=== PATIENT | male | born 1955 | race Caucasian/White ===

== ENCOUNTER 2024-04-17 07:43 | Outpatient (OUT) | payer OTHER, SELFPAY ==
--- NOTE | 2024-04-17 07:54 | ECG_ITS ---
[facility] Test Date: 2024-04-17 Pat Name: ALTAGRACIA CONWAY Department: Room: - Gender: Male [employer]: : 1955 Requested By: CLARENCE DAVID Order Number: [id number] Reading MD: DARIAN DAHL Measurements Intervals [place] Rate: 65 P: 35 CO: 184 QRS: 54 QRSD: 93 T: 60 QT: 365 QTc: 381 Interpretive Statements SINUS RHYTHM No previous ECG available for comparison Electronically Signed On 04-17-2024 17:00:30 EST by DARIAN DAHL
--- NOTE | 2024-04-17 09:10 | XR_ITS ---
The [address] [address] Patient Name: ALTAGRACIA CONWAY MRN: [id number] date: 1955 Sex: M Assigned Patient Location: [facility] Current Patient Location: [facility] Accession/Order Number: [id number] Exam Date: 04/17/2024 09:17 Report Date: 04/17/2024 09:41 At the request of: CLARENCE DAVID Procedure: XR chest 2V PROCEDURE: XR chest 2V DATE: 04/17/2024 9:17 AM EST COMPARISONS: None. CLINICAL INDICATION: 68 years Male Preop exam FINDINGS: The cardiomediastinal silhouette and pulmonary vasculature are within normal limits. There is slightly coarse increased markings throughout all lung [place] consistent with chronic lung changes. There is no evidence of consolidating infiltrates, masses or nodules on these plain radiographs. There is no evidence of pleural effusion or pneumothorax. Right-sided port catheter is in place. Thoracic spinal catheter is in place. XR/XR chest 2V IMPRESSION: Findings suggest chronic lung changes. No other abnormalities identified. Electronically authenticated by: SUGAR CAMACHO Date: 04/17/2024 09:41
[2024-04-17 09:35] LABS: Basophils Absolute Auto 0.1 10^3/uL (0.0-0.1); Basophils Percent Auto 1.4 % (0.2-2.0); Eosinophils Absolute Auto 0.6 10^3/uL (0.0-0.7); Eosinophils Percent Auto 7.3 % (0.9-7.0); Hematocrit 35.6 % (42.0-54.0); Hemoglobin 11.8 g/dL (14.0-18.0); Immature Granulocytes Abs Auto 0.02 10^3/uL (0.00-0.03); Immature Granulocytes Pct Auto 0.3 % (0.0-0.5); Lymphocytes Absolute Auto 1.9 10^3/uL (1.2-3.8); Lymphocytes Percent Auto 24.1 % (20.5-60.0); Mean Corpuscular HGB Conc 33.1 g/dL (29.9-35.2); Mean Corpuscular Hemoglobin 30.4 pg (25.9-34.0); Mean Corpuscular Volume 91.8 fL (80.0-94.0); Mean Platelet Volume 11.4 fL (9.5-13.5); Monocytes Absolute Auto 0.5 10^3/uL (0.3-0.8); Monocytes Percent Auto 6.5 % (1.7-12.0); Neutrophils Absolute Auto 4.8 10^3/uL (1.4-6.5); Neutrophils Percent Auto 60.4 % (43.0-75.0); Platelet Count 198 10^3/uL (150-450); Red Blood Count 3.88 10^6/uL (4.70-6.10); Red Cell Distribution Width 14.9 % (11.0-15.0); White Blood Count 7.9 10^3/uL (4.0-11.0)
[2024-04-17 09:43] LABS: Partial Thromboplastin Time 28.7 sec (22.3-36.2); Prothrombin Time 10.6 sec (9.0-11.6)
--- NOTE | 2024-04-17 10:13 | P.GSHP_ITS ---
History of Present Illness History of Present Illness Chief complaint: BPH with Obstruction Narrative: Mr. Kal Allison is a pleasant 68-year-old male who presents to presurgical testing with diagnosis of BPH with obstruction/lower urinary tract symptoms, asymptomatic microscopic hematuria, kidney stones, history of pancreatic cancer. He is scheduled with Dr. Syed on May 02, 2024 for cystoscopy/TURP. He reports to me that he has complaints of a full bladder and cannot completely empty. Review of Systems ROS Narrative REVIEW OF SYSTEMS: Negative except as stated in HPI, ten or more systems reviewed. Constitutional: No fever, chills, weakness ENT: No sore throat or epistaxis Cardiovascular: No edema, chest pain, palpitations, or activity intolerance Respiratory: No shortness of breath, cough, or wheezing Musculoskeletal: No joint pain or swelling, reports neuropathy to bilateral lower extremities Gastrointestinal: No abdominal pain, constipation, reports intermittent nausea for which he takes Zofran ODT he also reports a recent bout of colitis with symptoms that have resolved and no further diarrhea at this time Genitourinary: No dysuria or hematuria, complaints of inability to fully empty bladder Neurological: Numbness and tingling to bilateral lower extremities. Denies weakness, or headache Psychiatric: No mood changes reports history of depression and anxiety well- controlled with current medications [facility] Medical History (Updated 04/17/24 @ 10:22 by Cece Bowen) Neuropathy ?G62.9 - Polyneuropathy, unspecified (ICD-10) Amputated toe of right foot ?S98.131A - Complete traumatic amputation of one right lesser toe, initial en counter (ICD-10) Hepatitis C ?B19.20 - Unspecified viral hepatitis C without hepatic coma (ICD-10) Pancreatic cancer ?C25.9 - Malignant neoplasm of pancreas, unspecified (ICD-10) Osteoarthritis ?M19.90 - Unspecified osteoarthritis, unspecified site (ICD-10) Anxiety ?F41.9 - Anxiety disorder, unspecified (ICD-10) Depression ?F32.A - Depression, unspecified (ICD-10) Chronic obstructive pulmonary disease ?J44.9 - Chronic obstructive pulmonary disease, unspecified (ICD-10) Seasonal allergies ?J30.2 - Other seasonal allergic rhinitis (ICD-10) Cataract ?H26.9 - Unspecified cataract (ICD-10) Diabetes ?E11.9 - Type 2 diabetes mellitus without complications (ICD-10) Hypertension ?I10 - Essential (primary) hypertension (ICD-10) High cholesterol ?E78.00 - Pure hypercholesterolemia, unspecified (ICD-10) Liver disease ?K76.9 - Liver disease, unspecified (ICD-10) Rectal bleeding ?K62.5 - Hemorrhage of anus and rectum (ICD-10) Epigastric pain ?R10.13 - Epigastric pain (ICD-10) GERD (gastroesophageal reflux disease) ?K21.9 - Gastro-esophageal reflux disease without esophagitis (ICD-10) Chronic kidney disease ?N18.9 - Chronic kidney disease, unspecified (ICD-10) Colitis ?K52.9 - Noninfective gastroenteritis and colitis, unspecified (ICD-10) Surgical History (Updated 04/17/24 @ 09:24 by Cece Bowen) 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 (ICD-10) ?Z90.49 - Acquired absence of other specified parts of digestive tract (ICD- 10) History of cholecystectomy ?Z90.49 - Acquired absence of other specified parts of digestive tract (ICD- 10) S/P placement of nerve stimulator ?Z96.82 - Presence of neurostimulator (ICD-10) Family History (Updated 04/17/24 @ 08:27 by Cece Bowen) Other Family history of hypertension Family history of lung cancer Family history of pancreatic cancer Social History (Updated 04/17/24 @ 08:23 by Cece Bowen) Within the past year, how often did you have a drink containing alcohol: never Score interpretation: A score less than 4 is consistent with normal alcohol consumption. Smoking status: Former smoker Non-prescribed substance use: cannabis (any form) Non-prescribed substance use details: smokes daily Previous occupational history: retired Highest level of school completed/degree received: 10th grade Meds Home Medications and Allergies Home Medications ?Medication ?Instructions ?Recorded ?Confirmed ?Type albuterol sulfate 90 mcg/actuation 1 inh inhalation Q4H PRN shortness 04/17/24 04/17/24 History aerosol inhaler (Ventolin HFA) of breath or wheezing amlodipine 10 mg tablet 10 mg PO DAILY 04/17/24 04/17/24 History aspirin 81 mg chewable tablet 81 mg PO DAILY 04/17/24 04/17/24 History (Trinity Chewable Low Dose Aspirin) atorvastatin 10 mg tablet 10 mg PO DAILY 04/17/24 04/17/24 History buspirone 30 mg tablet 30 mg PO .PM 04/17/24 04/17/24 History cholecalciferol (vitamin D3) 50 50 mcg PO DAILY 04/17/24 04/17/24 History mcg (2,000 unit) capsule (Vitamin D3) fluticasone furoate 100 1 inh inhalation Q24H 04/17/24 04/17/24 History mcg-vilanterol 25 mcg/dose inhalation powder (Breo Ellipta) insulin aspart U-100 100 unit/mL 7 unit subcut BID 04/17/24 04/17/24 History (3 mL) subcutaneous pen (Novolog FlexPen U-100 Insulin aspart) insulin degludec 100 unit/mL (3 27 unit subcut DAILY 04/17/24 04/17/24 History mL) subcutaneous pen (Tresiba FlexTouch U-100 insulin) levomilnacipran 80 mg capsule,24 80 mg PO DAILY 04/17/24 04/17/24 History hr,extended release (Fetzima) [id number] 1 cap PO TID 04/17/24 04/17/24 History 36,000-114,000-180,000 unit capsule,delay rel (Creon) lisinopril 10 mg tablet 10 mg PO DAILY 04/17/24 04/17/24 History mirtazapine 45 mg tablet 45 mg PO .HS 04/17/24 04/17/24 History ondansetron 8 mg disintegrating 8 mg PO DAILY 04/17/24 04/17/24 History tablet oxycodone 10 mg tablet 10 mg PO .COMPLEX 04/17/24 04/17/24 History pantoprazole 40 mg tablet,delayed 40 mg PO DAILY PRN reflux 04/17/24 04/17/24 History release pregabalin 150 mg capsule (Lyrica) 150 mg PO BID 04/17/24 04/17/24 History tamsulosin 0.4 mg capsule 0.4 mg PO DAILY 04/17/24 04/17/24 History Allergies Allergy/AdvReac Type Severity Reaction Status Date / Time No Known Drug Allergies Allergy Verified 04/17/24 08:21 Exam Narrative Exam Narrative: Nurses note and vital signs reviewed and patient is not hypoxic. General: The patient appears well and in no apparent distress. Patient is resting comfortably on cart. Skin: Warm, dry, no pallor noted. There is no rash noted. He does have a right chest wall Port-A-Cath and lumbar spinal cord nerve stimulator Head: Normocephalic, atraumatic Eye: Normal conjunctiva, no drainage, EOMI. PERRL Ears, Nose, Mouth, and Throat: oral mucosa is moist. Nares patent. Mouth without vesicles. Ear canals patent. Tympanic membrane without Erythema Cardiovascular: Regular Rate and Rhythm Respiratory: Patient is in no distress, no accessory muscle use, lungs are clear to auscultation, no wheezing, rales or rhonchi Back: non-tender, no CVA tenderness bilaterally to percussion. GI: Normal bowel sounds, no tenderness to palpation, no masses appreciated. No rebound, guarding, or rigidity noted. Musculoskeletal: The patient has no evidence of calf tenderness, no pitting edema, symmetrical pulses noted bilaterally Neurological: A&O x4, normal speech Psychiatric: Cooperative Assessment and Plan Assessment and Plan (1) Benign prostatic hyperplasia with urinary obstruction and other lower urinary tract symptoms: (2) Asymptomatic microscopic hematuria: (3) Kidney stones: (4) History of pancreatic cancer: Plan Mr. Allison is scheduled for cystoscopy/TURP with Dr. Syed on 04/30/2024
[2024-04-17 10:57] LABS: Anion Gap 12.5; BUN Creatinine Ratio 26.2; Calcium 9.5 mg/dL (8.5-10.1); Carbon Dioxide 26.8 mmol/L (21.0-32.0); Chloride 104 mmol/L (98-107); Estimated GFR (African America >60 (>=60 mL/min/1.73m^2); Estimated GFR (Non-African Ame 55 (>=60 mL/min/1.73m^2); Glucose 143 mg/dL (74-106); Potassium 5.3 mmol/L (3.5-5.1); Sodium 138 mmol/L (136-145)
== END 2024-04-17 07:44 | disposition home or self-care (01) ==
LOC: PST 07:49
PROVIDERS: Family Provider Urology; PCP Family Medicine; Visit Provider Urology
DX: Z01.810 Encounter for preprocedural cardiovascular examination (principal); Z01.812 Encounter for preprocedural laboratory examination; Z01.818 Encounter for other preprocedural examination; N40.1 Benign prostatic hyperplasia with lower urinary tract symptoms; E78.5 Hyperlipidemia, unspecified
CPT/HCPCS: 71046; 80048; 85025; 85610; 85730; 93005; G0463

== ENCOUNTER 2024-05-02 21:15 | Emergency (ER) | payer OTHER, SELFPAY ==
[2024-05-02 21:18] VITALS: BP 179/79; PULSE 81; TEMP 36.7; O2SAT 98; BMI 25.7
--- OUTSIDE RECORDS SUMMARY | 2024-05-02 21:27 | XMS_ITS | CCD ---
Author Organization [facility] Care Team Providers Care Billet Straightener Name Role Phone REAL, EDTRIPP Kehinde Unavailable Unavailable KATHIA CASTRO Unavailable Unavailable CONSULT, IP SURGERY VASCULAR Unavailable Janae vailable PETZNICK, TIKI Unavailable Unavailable CONSULT, IP INFECTIOUS DISEASE Unavailable U navailable CONSULT, IP PODIATRY Unavailable Unavailable REQUEST, IP PHYSICAL THERAPY SERVICE Unavailable Unavailable REQUEST, IP OCCUPATIONAL THERAPY SERVICE Unavail able Unavailable CONSULT, IP DERMATOLOGY Unavailable Unavaila ble PROVIDER, UNKNOWN Unavailable Unavailable PROVIDER, UNKNOWN Unavailable Unavailable PETZNICK, TIKI Unavailable Unavailable PROVIDER, UNKNOWN Unavailable Unavailable PROVIDER, UNKNOWN Unavailable Unavailable PATIENT, SELF Unavailable Unavailable PETZNICK, TIKI Unavailable Unavailable SYED, CLARENCE Unavailable Unavailable SYED, CLARENCE Unavailable Unavailable SYED, CLARENCE Unavailable Unavailable PETZNICK, TIKI Unavailable Unavailable SYED, CLARENCE Unavailable Unavailable SYED, CLARENCE Unavailable Unavailable SYED, CLARENCE Unavailable Unavailable JOSE MARTIN RIZO Unavailable Unavailable PETZNICK, TIKI Unavailable Unavailable SYED, CLARENCE Unavailable Unavailable SYED, CLARENCE Unavailable Unavailable SYED, CLARENCE Unavailable Unavailable BEENA OLIVEROS Unavailable Unavailable JULISSA MEJIA Unavailable Unavailable Petznick, Tiki M Unavailable Unavailable Destiney Salas Unavailable Unavailable Margaret Crawford Unavailable Unavailable Andrew Vazquez Unavailable Diane Quintero Unavailable Jose Martin Ramirez Unavailable Lennie Newell Unavailable Kameron Mullen Unavailable DO Tiki Dockery Primary Care Provider MD Andrew Vazquez Attending Provider DO Tiki Dockery Attending Provider MD Margaret Delgado Attending Provider [phone] MD Nasim Guillaume Referring Provider Petznick, DO Tiki Primary Care Provider MD Andrew Vazquez Attending Provider MD Margaret Delgado Attending Provider MD Nasim Guillaume Referring Provider MD Margaret Delgado Attending Provider [phone] MD Nasim Guillaume Referring Provider Petznick, DO Tiki Primary Care Provider SAKRIS, TIKI Primary Care Physician Unavailable Primary Care Provider Unavailabl e MD Margaret Delgado Attending Provider MD Nasim Guillaume Referring Provider Petznick, DO Tiki Primary Care Provider Lonnie, Tammy Unavailable Dr. Margaret Delgado Attending Unavailable Dr. Tiki Dockery Primary Care U navailable Tiki Dockery Primary Care Provider Hampole, Memo Vagesh Unavailable Ankita, Hernandez H Unavailable Chance DELUNAM, Hernandez H Unavailable Hampole, Memo Vagesh Unavailable Chance KIM, Hernandez H Unavailable JORDAN, JORDAN E Attending Unavailable JORDAN, JORDAN E Admitting Unavailable TIKI DOCKERY Primary Care Unava ilable PETTIKI ORTIZ GAGAN Primary Care Unava ilable JORDAN, JORDAN E Attending Unavailable JORDAN, JORDAN E Admitting Unavailable MD Margaret Delgado Attending Provider MD Nasim Guillaume Referring Provider Petznick, DO Tiki Primary Care Provider MD Margaret Delgado Attending Provider MD Nasim Guillaume Referring Provider Petznick, DO Tiki Primary Care Provider Petznick, DO Tiki Attending Provider [phone] JORDAN, JORDAN PHILLIP Referring Unavailable PETZNICK, TIKI GAGAN Primary Care Unava ilable PETZNICK, TIKI GAGAN Primary Care Unava ilable TEETEE YANG Referring Unavailable PETZNICK[facility] Primary Care Unava ilable MALINE, ELBA L Referring Unavailable PETZNICK, TIKI GAGAN Primary Care Unava ilable MALINE, ELBA L Referring Unavailable Petznick, DO Tiki Primary Care Provider MD Bro Alas Attending Provider MD Margaret Delgado Attending Provider MD Nasim Guillaume Referring Provider Petznick, DO Tiki Attending Provider [phone] MD Margaret Delgado Attending Provider MD Nasim Guillaume Referring Provider Keister, DO Bishop A Emergency Provider Petznick DO, Tiki Primary Care Provider Petznick DO, Tiki Unavailable [phone] Petznick, DO Tiki Primary Care Provider RAMAKRISHNA Rizo Emergency Provider [phone] MD Tito Cespedes Jr Emergency Provider MARISOL ELBA L Attending Unavailable PETZNICK, TIKI GAGAN Primary Care Unava ilable MALINE, ELBA L Attending Unavailable PETZNICK, TIKI GAGAN Primary Care Unava ilable PETZNICK, TIKI GAGAN Primary Care Unava ilable MALINE, ELBA L Attending Unavailable GURU BYRD H Attending Unavailab le PETZNICK, [facility] Primary Care Unava ilable PETZNICK, [facility] Primary Care Unava ilable JORDAN, JORDAN Attending Unavailable JORDAN, JORDAN Attending Unavailable PETZNICK, [facility] Primary Care Unava ilable MALSVITLANA, ELBA Tomeka Attending Unavailable PETZNICK, TIKI GAGAN Primary Care Unava ilable CHELSEY VANN Attending Unavailable PETZNICK, TIKI GAGAN Primary Care Unava ilable Petznick, DO Tiki Primary Care Provider [phone] Petznick, DO Tiki Attending Provider DO Dario Bianchi Emergency Provider RAMAKRISHNA Rizo Emergency Provider MD Tito Cespedes Jr Emergency Provider MD Margaret Delgado Attending Provider MD Nasim Guillaume Referring Provider MD Margaret Delgado Attending Provider MD Nasim Guillaume Referring Provider Petznick, DO Tiki Primary Care Provider [phone] MD Margaret Delgado Attending Provider [phone] MD Nasim Guillaume Referring Provider Petznick, DO Tiki Primary Care Provider Radha, [facility] Daysi E Emergency Provider LONNIE, TAMMY Admitting Unavailable LONNIE, TAMMY Attending Unavailable LONNIE, TAMMY Admitting Unavailable LONNIE, TAMMY Attending Unavailable Ten Suárez Consulting Unavailable Benoit Weber Attending Unavailable Theodora Laurent Admitting Unavailable RAMAKRISHNA Suárez Jr. Consulting Unavail able Ten Suárez Consulting Unavailable MALINE, ELBA L Attending Unavailable MALINE, ELBA L Referring Unavailable PETZNICK, TIKI Admitting Unavailable PETZNICK, TIKI Attending Unavailable PETZNICK, TIKI Attending Unavailable PETZNICK, TIKI Admitting Unavailable PETZNICK, TIKI Referring Unavailable Donna Fuentes Attending Unavailable DO Clarence Gonzales Emergency Provider Jesse Angelo Attending UnavailJesse Storey Admitting UnavailJesse Storey Attending UnavailJesse Storey Admitting Unavailabl e Jesse Angelo Attending Unavailabl e Gi, Jesse Kramer Admitting Unavailabl e DoDO Chelsea vick Attending Unavailable LANNY, Ronobir R Admitting Unavailable LANNY, DO Ronobir R Attending Unavailabl e LANNY, DO Ronobir R Admitting Unavailabl e LANNY, Ronobir R Attending Unavailable LANNY, Ronobir R Admitting Unavailable Blank, Leonides S Consulting Unavailable Cee Bruce Leonides S Consulting Unavailable Blank, Leonides S Consulting Unavailable Blank, Leonides S Consulting Unavailable Blank, Leonides S Consulting Unavailable Blank, Leonides S Consulting Unavailable Blank, Leonides S Consulting Unavailable Blank, Leonides S Consulting Unavailable Blank, Leonides S Consulting Unavailable Blank, Leonides S Consulting Unavailable Blank, Leonides S Consulting Unavailable PetDO angel Tiki Primary Care Provider [phone] MD Margaret Delgado Attending Provider [phone] MD Nasim Guillaume Referring Provider Chelsea Ortiz Attending Unavailable DO Tiki Dockery Primary Care Provider MD Margaret Delgado Attending Provider [phone] MD Nasim Guillaume Referring Provider NYLA Watts Emergency Provider MD TAMMY FLEMING Admitting Unavailable MD TAMMY FLEMING Attending Unavailable LANNY, Nereida R Admitting Unavailable MD John Livingston Attending Unavaila MD TAMMY Matute Admitting Unavailable MD TAMMY FLEMING Attending Unavailable DO Tiki Dockery Primary Care Provider MD Bro Alas Attending Provider [phone] MD Margaret Delgado Attending Provider [phone] MD Nasim Guillaume Referring Provider Kathi CARIAS Referring Unavailable Kathi CARIAS Attending Unavailable Kathi CARIAS Admitting Unavailable Cee Bruce Consulting Unavailable Donna Fuentes Admitting Unavailable Donna Fuentes Attending Unavailable MENDEZTOYAHERNANDEZ Admitting Unavailable MENDEZ, HERNANDEZ Attending Unavailable Galea, Donna Leonardo Attending Unavailable PETZNICK, TIKI Referring Unavailable MENDEZ, HERNANDEZ Attending Unavailable MENDEZ, HERNANDEZ Admitting Unavailable MENDEZ, HERNANDEZ Attending Unavailable MENDEZ, HERNANDEZ Admitting Unavailable Galea, Donna J Admitting Unavailable Galea, Donna J Attending Unavailable MENDEZ, HERNANDEZ Attending Unavailable MENDEZ, HERNANDEZ Admitting Unavailable Petznick Tiki CHAPA M Unavailable [phone] PETZNICK, TIKI Attending Unavailable PETZNICK, TIKI Admitting Unavailable Mark Alves Attending Unavailable Jadon Lino. Attending Unavailable Petznick, Tiki Primary Care Unavailable Bro Alas Admitting Unavailab le Evette, Bro Attending Unavailab le Petznick, Tiki Primary Care Unavailable Nasim Guillaume Referring Unavailable Danny, Margaret Admitting Unavailable Danny, Margaret Attending Unavailable Petznick, Tiki Primary Care Unavailable Elza Wattsanda M Admitting Unavailable Mac Karolina M Attending Unavailable Bullimore, Daysi E Admitting Unavailable Bullimore, Daysi E Attending Unavailable Petznick, Tiki Primary Care Unavailable Petznick, Tiki Primary Care Unavailable Tito Cespedes Jr Admitting Unavailable Tito Cespedes Jr Attending Unavailable Fernando Rizo Attending Unavailable Petznick, Tiki Primary Care Unavailable Fernando Rizo Admitting Unavailable Petznick, Tiki Primary Care Unavailable TupaClarence Admitting Unavailable TupaClarence Attending Unavailable Clarence SYED Admitting Unavailable Clarence SYED Attending Unavailable Clarence SYED Referring Unavailable PETZNICK, TIKI Admitting Unavailable PETZNICK, TIKI Attending Unavailable PETZNICK, TIKI Admitting Unavailable PETZNICK, TIKI Attending Unavailable Clarence SYED Attending Unavailable Clarence SYED Attending Unavailable Clarence SYED Attending Unavailable HERNANDEZ ARAMBULA Referring Unavailable HERNANDEZ ARAMBULA Attending Unavailable PETZNICK, TIKI M Attending Unavailable PETZNICK, TIKI M Attending Unavailable HERNANDEZ ARAMBULA Attending Unavailable PETZNICK, TIKI M Attending Unavailable PETZNICK, TIKI M Referring Unavailable HERNANDEZ ARAMBULA Attending Unavailable PETZNICK, TIKI M Attending Unavailable PETZNICK, TIKI M Referring Unavailable OMAYRAANGELTIKI M Attending Unavailable OMAYRAANGELTIKI M Referring Unavailable OMAYRAANGEL, TIKI M Attending Unavailable SARKIS, TIKI M Attending Unavailable SARKIS, TIKI M Referring Unavailable Danielle Vance Attending Unavailable Danielle Vance Attending Unavailable Mark Alves Attending Unavailable Margaret Delgado MD Attending Provider [phone] Nasim Guillaume MD Referring Provider Tiki Dockery DO Primary Care Provider [phone] Bro Alas MD Attending Provider Allergies Allergy Classification Reported Allergen(s) Allergy Type Date of Onset Reaction(s) Facility (20 sources) ambrosia artemisiifolia pollen; Translations: [Ragweed] Allergy to substance (finding) [facility] Repository (20 sources) Ragweed 1 Drug allergy [facility] Comment on above: SEASONAL ALLERGIES (14 sources) Pollen; Translations: [POLLEN] Allergy to substance 2 [facility] (20 sources) Mixed Ragweed Allergy to substance 3 [facility] Healthcare Medications Current Medications Medication Drug Class(es) Dates Sig (Normalized) Sig (Original) acetaminophen 325 mg oral tablet (4 sources) Start: 03-22-2022 take 2 tablets by mouth every six hours as needed for pain Tylenol 325 mg Tab 650 mg, Oral, q6hr, PRN as needed for pain, Refills(s) 0 Start Date: 03/22/22 Status: Ordered acetaminophen 325 mg / oxyCODONE hydrochloride 5 mg oral tablet (1 source) Opioid Agonist Start: 11-13-2022 End: 11-18-2022 take 1 tablet by mouth every six hours as needed for pain oxyCODONE-acetamin ophen (PERCOCET) 5-325 mg tablet Indications: Type 2 diabetes mellitus with diabetic polyneuropathy, with long-term current use of insulin (HCC) , Acute postoperative pain Take 1 tablet by mouth every 6 hours as needed for pain (moderate to severe acute postoperative pain) for up to 5 days. 20 tablet 0 11/13/2022 11/18/2022 Active Comment on above: Take 1 tablet by olya every 6 hours as needed for pain (moderate to severe acute postoperative pain) for up to 5 days. [id number] 200 actuat albuterol 0.09 mg/actuat metered dose inhaler (20 sources) beta2-Adrenergic Agonist Start: 04-15-2023 take 2 puff(s) by inhalation every four hours for wheezing albuterol HFA (Ventolin HFA) 90 mcg/act inhaler Indications: Simple chronic bronchitis (CMS/HCC) Inhale 2 puffs every 4 (four) hours if needed for wheezing or shortness of breath 04/15/2023 Active Start: 04-14-2023 take 1 puff(s) by in halation every six hours as needed for wheezing Albuterol Sulfate (Ventolin Hfa) 90 mcg/actuation HFA aerosol inhaler Active 2 PUFF INHALATION Q6H as needed for shortness of breath or wheezing 8.5 April 14, 2023 12:00am Start: 04-13-2023 End: 06-24-2023 Albuterol Sulfate (Proair Hf a) 90 mcg/actuation HFA aerosol inhaler Discontinued 1 INH INHALATION Q4H April 13, 2023 12:00am June 24, 2023 2:11pm Start: 07-13-2020 End: 09-06-2020 take 1 puff(s) by inhalation every four to six hours as needed for dyspnea Albuterol Sulfate (Proair Hfa) 90 mcg/actuation Hfa Aerosol Inhaler Discontinued 2 PUFF INHALATION EVERY 4-6 HOURS as needed for Dyspnea 04 09July 12, 2020 11:00pm September 06, 2020 4:19pm take 2 puff(s) by in halation every four hours as needed for wheezing albuterol HFA (PROVENTIL HFA, VENTOLIN HFA) 90 mcg/actuation inhaler Inhale 2 Puffs as instructed every 4 hours as needed for Wheezing/Shortness of Breath. 0 Active take 1 puff(s) by in halation every four hours as needed Ventolin HFA 108 (90 Base) MCG/ACT 1 puff as needed Inhalation every 4 hrs Active Comment on above: Inhale 2 Puffs as in structed every 4 hours as needed for Wheezing/Shortness of Breath. amitriptyline hydrochloride 50 mg oral tablet (13 sources) Tricyclic Antidepressant Start: 023 take 50 mg by mouth at bedtime amitriptyline 50 mg, Oral, Bedtime, Refills(s) 0 Start Date: 02/04/23 Status: Ordered Start: 07-17-2021 take 1-2 tablets by mouth once daily at bedtime Amitriptyline HCl 10 MG 1-2 tablets Orally Once a day at bedtime for 30 day(s) July, Active amylase 151577 unt / lipase 43380 unt / protease [id number] unt delayed release oral capsule (20 sources) Start: 09-19-2023 Creon 36,000 u nits oral delayed release capsule 2 cap(s), Oral, TIDWM, Refill(s) 0 Start Date: 09/19/23 Status: Ordered Start: 11-08-2021 End: 02-13-2024 take [id number] capsules by mouth three times daily at mealtime Hxnvaf-Xmsfdawv-Emjmlnz (Creon) 36,000-114,000- 180,000 unit Capsule,Delayed Release(Dr/Ec) Discontinued 2 CAP PO Three times daily November 14, 2021 11:00pm February 13, 2024 1:17pm administer with meals and/or snacks Comment on above: Take 2 capsules by [facility] three times daily. Aspir 81 (1 source) Start: 07-13-2014 take 81 mg by mouth once daily Aspir 81 81 mg, Oral, Daily, Refills(s) 0 Start Date: 07/13/14 Status: Ordered aspirin 81 mg oral tablet (20 sources) Platelet Aggregation Inhibitor, Nonsteroidal Anti-inflammatory Drug Start: 09-19-2023 take 1 tablet by mouth once daily Adult Aspirin 81 mg oral tablet, chewable 81 mg = 1 tab(s), Chewed, Daily, Refills(s) 0 Start Date: 09/19/23 Status: Ordered Start: 04-13-2023 take 1 tablet by olya once daily Aspirin (Adult Aspirin Regimen) 81 mg tablet,delayed release (DR/EC) Active 81 MG PO Daily April 13, 2023 12:00am Start: 11-02-2009 End: 08-13-2022 aspirin(ECOTRIN LOW STRENGTH 81 MG TAB) Take one (1) tablet daily. 0 11/02/2009 08/13/2022 Discontinued (Other) Comment on above: Take one (1) tablet daily. azithromycin 250 mg oral tablet (20 sources) Macrolide Antimicrobial Start: 02-10-2024 azithromycin (Zithromax) 250 MG tablet 02/10/2024 Active Start: 04-14-2023 End: 05-22-2023 take 2-5 tablets by mouth once daily Azithromycin 250 mg tablet Discontinued 250 MG PO Daily 6 April 14, 2023 12:00am May 22, 2023 9:21am Take 500mg today (day 1), then 250mg for 4 days (day 2-5). Start: 04-13-2023 Azithromycin A ctive 0 PO .COMPLEX April 13, 2023 12:00am For 250 mg dose pack: take 500 mg today (day 1), then 250 mg for 4 days (days 2-5) azithromycin 250 mg Tab 5-day Dose Pack (Z-Catalina) (2 sources) Start: 02-10-2024 End: 02-15-2024 azithromycin 250 mg Tab 5-day Dose Pack (Z-Catalina) = 1 packet(s), Oral, As Directed, as directed on package labeling, X 5 day(s), # 6 tab(s), Refills(s) 0, Pharmacy: [id number], 188, cm, 02/10/24 15:24:00 EST, Height/Length Dosing, 96, kg, 02/10/24 15:24:00 EST, Weight Dosing Start Date: 02/10/24 Stop Date: 02/15/24 Status: Ordered busPIRone hydrochloride 30 mg oral tablet (20 sources) Start: 03-22-2022 take 3 tablets by mouth once daily busPIRone 10 mg Tab 30 mg = 3 tab(s), Oral, Daily, Refills(s) 0 Start Date: 03/22/22 Status: Ordered Start: 03-22-2022 take 3 tablets by mo [facility] twice daily busPIRone 10 mg Tab 30 mg = 3 tab(s), Oral, BID, Refills(s) 0 Start Date: 03/22/22 Status: Ordered Start: 03-22-2022 take 3 tablets by mo [facility] three times daily busPIRone 10 mg Tab 30 mg = 3 tab(s), Oral, TID, Refills(s) 0 Start Date: 03/22/22 Status: Ordered Start: 07-07-2021 take 1 tablet by olya th once daily Buspirone 30 mg Tablet Active 30 MG PO Daily July 06, 2021 11:00pm Start: 07-07-2021 take 30 mg by mouth twice angelika y Buspirone Active 30 MG PO Twice daily July 06, 2021 11:00pm capsaicin 0.08 mg/mg medicated patch (8 sources) Start: 03-26-2024 Capsaicin-Cleansing Gel (Qutenza, 4 Patch,) 8 % patch Indications: Neuropathy , Type II diabetes mellitus with neurological manifestations (CMS/HCC) Apply 1 patch topically every 3 (three) months Follow instructions to prepare site. Prescriber to jerry area. Once applied, remove after 30 minutes and clean area with supplied gel. 1 patch 3 03/26/2024 Active cefTRIAXone 1000 mg injection (15 sources) Cephalosporin Antibacterial Start: 10-09-2023 cefTRIAXone 1 g intravenous injection 1 gm = 1 EA, IV Piggyback, q24hr, # 11 EA, Refills(s) 0 Start Date: 10/09/23 Status: Ordered cholecalciferol 0.05 mg oral tablet (20 sources) Vitamin D Start: 05-09-2023 take 1 tablet by mouth once daily GNP Vitamin D Maximum Strength 50 MCG (2000 UT) tablet Indications: Vitamin D deficiency TAKE 1 TABLET BY MOUTH ONCE DAILY 90 tablet 3 05/09/2023 Active Start: 09-16-2020 take 1 tablet by olya once daily Cholecalciferol (Vitamin D3) 25 mcg (1,000 unit) Tablet Active 50 MCG PO Daily September 15, 2020 11:00pm take 1 tablet by olya once in the morning GNP Vitamin D Maximum Strength 50 MCG (2000 UT) tablet Take 1 tablet by mouth in the morning. 0 Active take 1 capsule by mo [facility] every twenty-four hours Vitamin D 50 MCG (2000 UT) 1 capsule Orally Once a day Active take 1 capsule by mo ut once daily Cholecalciferol 25 MCG (1000 UT) 1 capsule Orally Once a day Active Continuous Blood Gluc Receiv er (FreeStyle Maya 3 [place]) device (20 sources) Start: 04-01-2023 Continuous Blo od Gluc Electrical Continuity Tester (FreeStyle Maya 3 [place]) device Indications: Type 2 diabetes mellitus with peripheral neuropathy (CMS/HCC) 1 each See administration instructions 1 each 04/01/2023 Active Start: 04-01-2023 Continuous Blo od Gluc Electrical Continuity Tester (FreeStyle Maya 3 [place]) device Indications: Type 2 diabetes mellitus with peripheral neuropathy (CMS/HCC) 1 each See administration instructions 1 each 0 04/01/2023 Active Continuous Blood Gluc Sensor (FreeStyle [place] [facility] [place] Start: 04-01-2023 Continuous Blood Gluc Sensor (FreeStyle Maya 3 [place]ensor[place] [facility] [place]ications: Type 2 diabetes mellitus with peripheral neuropathy (CMS/HCC) Inject 1 Device under the skin every 14 (fourteen) days 6 each 3 04/01/2023 Active Continuous Glucose Sensor (FreeStyle Maya 3 Plus Sensor[place] [facility] [place] sources[place] Start: 11-22-2023 End: 11-21-2024 Continuous Glucose Sensor (FreeStyle Maya 3 Plus Sensor[place] [facility] [place]ications: Type 2 diabetes mellitus with peripheral neuropathy (CMS/HCC) 1 each every 14 (fourteen) days 6 each 3 11/22/2023 11/21/2024 Active Continuous Glucose Sensor (FreeStyle Maya 3 Sensor[place] [facility] [place] Start: 09-09-2023 Continuous Glucose Sensor (FreeStyle Maya 3 Sensor[place] [facility] [place]ications: Type 2 diabetes mellitus with peripheral neuropathy (CMS/HCC) Inject 1 Device under the skin every 14 (fourteen) days 6 each 3 09/09/2023 Active diclofenac sodium 0.01 mg/mg topical gel (4 sources) Nonsteroidal Anti-inflammatory Drug Start: 07-17-2021 Diclofenac Sodium 1 % as directed Externally rub 1-2 grams every 6-8 hours as needed for 30 days July, Active doxepin hydrochloride 100 mg oral capsule (20 sources) Tricyclic Antidepressant Start: 03-13-2023 take 1 capsule by mouth once daily at bedtime Doxepin 100 mg capsule Active 100 MG PO Daily at bedtime April 13, 2023 12:00am dulaglutide (5 sources) GLP-1 Receptor Agonist [facility] Active fetzima titration 20 & 40 mg capsule er 24 hour therapy pack (1 source) Fetzima Titratio n 20 & 40 MG as directed Orally Active 30 actuat fluticasone furoate 0.1 mg/actuat / vilanterol 0.025 mg/actuat dry powder inhaler (20 sources) Corticosteroid, beta2-Adrenergic Agonist Start: 02-07-2024 Breo Ellipta 100-25 MCG/ACT aerosol powder 02/07/2024 Active Start: 10-05-2023 take 1 puff(s) by in halation once daily Breo Ellipta 100 mcg-25 mcg inhalation powder 1 puff(s), Inhalation, Daily, 30 dose unit Start Date: 10/05/23 Status: Ordered Start: 09-20-2023 take 1 puff(s) by in halation once daily Breo Ellipta 100 mcg-25 mcg inhalation powder 1 puff(s), Inhalation, Daily, 30 dose unit Start Date: 09/20/23 Status: Ordered Start: 09-19-2023 Breo Ellipta I nhalation, Daily, Refill(s) 0 Start Date: 09/19/23 Status: Ordered Start: 04-13-2023 Fluticasone Fu roate-Vilanterol (Breo Ellipta) 100-25 mcg/dose blister with device Active 1 INH INHALATION Daily April 13, 2023 12:00am Start: 02-04-2023 Breo Ellipta R efill(s) 0 Start Date: 02/04/23 Status: Ordered Start: 10-30-2022 take 1 puff(s) by mo ut once daily Fluticasone Furoate-Vilanterol (Breo Ellipta) 100-25 MCG/ACT aerosol powder Indications: Simple chronic bronchitis (CMS/HCC) inhale 1 PUFF BY MOUTH ONCE DAILY 28 each 3 10/30/2022 Active 3 ml insulin aspart, human 100 unt/ml pen injector (20 sources) Insulin Analog Start: 12-11-2023 insulin aspart (NovoLOG FLEXPEN) 100 UNIT/ML pen Indications: Type II diabetes mellitus with neurological manifestations (CMS/HCC) INJECT subq DIRECTED: 7 units breakfast, 7-10 units dinner plus correction 1:75 if blood sugar above 150. (Max daily 30 units) 30 mL 3 12/11/2023 Active Start: 10-05-2023 inject 8 [IU] by sub cutaneous injection once daily insulin aspart 100 units/mL injectable solution 8 unit(s), SubCutaneous, Daily Start Date: 10/05/23 Status: Ordered Start: 10-05-2023 insulin aspart 100 units/mL injectable solution 8-12 unit(s), SubCutaneous, Supper Start Date: 10/05/23 Status: Ordered Start: 06-24-2023 End: 12-11-2023 insulin aspart (NovoLOG FLEX PEN) 100 UNIT/ML pen Indications: Type II diabetes mellitus with neurological manifestations (CMS/HCC) INJECT subq DIRECTED: 6 units breakfast, 6-8 units dinner plus correction 1:75 if blood sugar above 150. (Max daily 30 units) 30 mL 3 06/24/2023 12/11/2023 Discontinued (Dose adjustment) Start: 02-04-2023 insulin aspart See Instructions, Refills(s) 0 Start Date: 02/04/23 Status: Ordered Start: 10-30-2022 inject 6 [IU] by sub cutaneous injection at breakfast insulin aspart (NovoLOG FLEXPEN) 100 UNIT/ML pen Indications: Type II diabetes mellitus with neurological manifestations (CMS/HCC) INJECT subq DIRECTED: 6 units breakfast, 8 to 12 units dinner plus correction 1:75 if blood sugar above 150. 30 mL 0 10/30/2022 Active Start: 10-19-2022 insulin aspart U-100 (NOVOLOG FLEXPEN U-100 INSULIN) 100 unit/mL (3 mL) 60 units in morning, 60 units for lunch, and sliding scale for dinner 0 10/19/2022 Active inject 5 [IU] by sub cutaneous injection at breakfast NovoLOG FlexPen 100 UNIT/ML as directed Subcutaneous 5 UNITS AT BREAKFAST, 10-12 DINNER Active Comment on above: 60 units in morning, 60 units for lunch, and sliding scale for dinner 3 ml insulin degludec 100 unt/ml pen injector (20 sources) Insulin Analog Start: 12-11-2023 insulin degludec (Tresiba FlexTouch) 100 UNIT/ML injection Indications: Type 2 Diabetes Mellitus Inject 26 Units under the skin in the morning. 30 mL 3 12/11/2023 Active Start: 10-05-2023 insulin deglud ec 100 units/mL subcutaneous solution 30 unit(s), SubCutaneous, Daily Start Date: 10/05/23 Status: Ordered Start: 05-20-2023 End: 12-11-2023 insulin degludec (Tresiba FlexTouch) 100 UNIT/ML injection Indications: Type 2 Diabetes Mellitus Inject 30 Units under the skin in the morning. 30 mL 3 05/20/2023 12/11/2023 Discontinued (Dose adjustment) Start: 02-23-2023 insulin deglud ec (Tresiba FlexTouch) 100 UNIT/ML injection Indications: Type 2 Diabetes Mellitus Inject 30 Units under the skin in the morning. 0 02/23/2023 Active Start: 02-04-2023 insulin deglud ec See Instructions, 30 units qAM, Refills(s) 0 Start Date: 02/04/23 Status: Ordered Start: 02-04-2023 insulin deglud ec See Instructions, Refills(s) 0 Start Date: 02/04/23 Status: Ordered Start: 07-07-2021 insulin deglud ec (TRESIBA FLEXTOUCH U-100) 100 unit/mL (3 mL) injection pen 34 Applicators by abdominal subcutaneous route once daily. 0 07/07/2021 Active Start: 03-17-2020 End: 07-05-2020 Insulin Degludec (Tresiba U- 100 Insulin) 100 unit/mL Solution Discontinued 7 UNIT SUBCUT Every morning March 17, 2020 12:00am July 05, 2020 10:47am 7 untis a day Start: 01-01-2020 inject 20 [IU] by ramirez bcutaneous injection once daily Tresiba 100 units/mL subcutaneous solution 20 unit(s), SubCutaneous, Daily, Refills(s) 0 Start Date: 01/01/20 Status: Ordered inject 34 [IU] by ramirez bcutaneous injection once daily Tresiba 100 UNIT/ML as directed Subcutaneous 34 UNITS ONCE A DAY Active inject 34 [IU] by ramirez bcutaneous injection once daily Tresiba 100 UNIT/ML as directed Subcutaneous 34 UNITS ONCE A DAY Active inject 30 [IU] by ramirez bcutaneous injection once daily Tresiba 100 UNIT/ML as directed Subcutaneous 30 UNITS ONCE A DAY Active Tresiba Active Comment on above: 34 Applicators by ab dominal subcutaneous route once daily. Insulin Degludec (Tresiba Flextouch U-100) 100 unit/mL (3 mL) insulin pen (20 sources) Start: 02-03-2024 Insulin Degludec (Tresiba Flextouch U-100) 100 unit/mL (3 mL) insulin pen Active 27 UNIT SUBCUT Daily February 03, 2024 2:00pm Start: 07-07-2021 End: 02-03-2024 Insulin Degludec (Tresiba Fl extouch U-100) 100 unit/mL (3 mL) insulin pen Discontinued 30 UNIT SUBCUT Daily July 06, 2021 11:00pm February 03, 2024 2:02pm Start: 07-07-2021 Insulin Deglud ec (Tresiba Flextouch U-100) 100 unit/mL (3 mL) insulin pen Active 30 UNIT SUBCUT Daily July 07, 2021 12:00am Start: 07-07-2021 Insulin Deglud ec (Tresiba Flextouch U-100) 100 unit/mL (3 mL) insulin pen Active 30 UNIT SUBCUT Daily July 06, 2021 11:00pm Start: 07-07-2021 Insulin Deglud ec (Tresiba Flextouch U-100) 100 unit/mL (3 mL) insulin pen Active 18 UNIT SUBCUT Daily July 07, 2021 12:00am Start: 07-07-2021 Insulin Deglud ec (Tresiba Flextouch U-100) 100 unit/mL (3 mL) insulin pen Active 18 UNIT SUBCUT Daily July 06, 2021 11:00pm Insulin Glargine (5 sources) Insulin Analog Start: 03-22-2022 inject 20 [IU] by subcutaneous injection twice daily insulin glargine 20 unit(s), SubCutaneous, BID, Refills(s) 0 Start Date: 03/22/22 Status: Ordered Insulin Lispro (Humalog Kwikpen Insulin) 100 unit/mL insulin pen (11 sources) Start: 06-24-2023 inject 100 [IU] by subcutaneous injection twice daily Insulin Lispro (Humalog Kwikpen Insulin) 100 unit/mL insulin pen Active 0 SUBCUT Twice daily June 24, 2023 2:14pm 6-8 UNITS IN AM, 6-8 SUPPER subcutaneously twice daily; Start: 06-24-2023 inject 100 [IU] by s ubcutaneous injection twice daily Insulin Lispro (Humalog Kwikpen Insulin) 100 unit/mL insulin pen Active 0 SUBCUT Twice daily June 24, 2023 3:14pm 6-8 UNITS IN AM, 6-8 SUPPER subcutaneously twice daily; 24 hr levomilnacipran 20 mg extended release oral capsule (20 sources) Serotonin and Norepinephrine Reuptake Inhibitor Start: 02-03-2024 take 1 capsule by mouth once daily Levomilnacipran (Fetzima) 20 mg capsule,extended release 24 hr Active 80 MG PO Daily February 03, 2024 2:01pm Start: 11-05-2023 take 1 capsule by mo [facility] once daily Fetzima 80 MG extended release capsule Take 80 mg by mouth Daily 11/05/2023 Active Start: 10-05-2023 take 1.5 capsules by mouth once daily Fetzima 40 mg oral capsule, extended release See Instructions, 1.5 CAPSULES TO EQUAL 60MG DAILY Start Date: 10/05/23 Status: Ordered Start: 09-19-2023 take 60 mg by mouth once daily Fetzima 60 mg, Oral, Daily, Refills(s) 0 Start Date: 09/19/23 Status: Ordered Start: 03-13-2023 Fetzima 40 MG extended release capsule Take 40 mg by mouth in the morning. Takes along with 20mg tablets. 0 03/13/2023 Active Start: 03-22-2022 take 1 capsule by mo [facility] once daily Fetzima 120 mg oral capsule, extended release Fetzima 120 mg oral capsule, extended release, Daily Start Date: 03/22/22 Status: Ordered Start: 07-07-2021 End: 02-03-2024 take 1 capsule by mouth once daily Levomilnacipran (Fetzima) 20 mg capsule,extended release 24 hr Discontinued 60 MG PO Daily July 06, 2021 11:00pm February 03, 2024 2:02pm Start: 07-07-2021 End: 11-26-2023 Fetzima 20 mg oral capsule, extended release See Instructions, Refills(s) 0 Start Date: 09/19/23 Status: Ordered levomilnacipran (FETZIMA) 120 mg ER capsule Take 160 mg by mouth once daily. 0 Active Fetzima Titratio n 20 & 40 MG as directed Orally Active Comment on above: Take 160 mg by mouth once daily. Lexiscan Cardioloyte Stress Test (1 source) Start: 7 Lexiscan Cardioloyte Stress Test Lexiscan Cardioloyte Stress Test, Dx: CP, Dyspnea on exertion Fax results to Dr Rowe, Print Requisition, Supply Start Date: 05/10/16 Status: Ordered lisinopril 10 mg oral tablet (20 sources) Angiotensin Converting Enzyme Inhibitor Start: End: take 1 tablet by mouth once daily Lisinopril 10 mg tablet Active 10 MG PO Daily April 13, 2023 12:00am Start: 07-07-2021 End: 04-13-2023 take 1 tablet by mouth once daily Lisinopril 5 mg tablet Discontinued 5 MG PO Daily July 06, 2021 11:00pm April 13, 2023 9:35am Start: 11-02-2009 lisinopril(ROLLY NIVIL 20 MG TAB) Take one(1) tablet daily. 0 11/02/2009 Active Comment on above: Take one(1) tablet d aily. LORazepam 1 mg oral tablet (20 sources) Benzodiazepine Start: 02-04-2023 take 1 tablet by mouth once daily in the morning Ativan 0.5 mg Tab 0.5 mg = 1 tab(s), Oral, qAM, Refills(s) 0 Start Date: 02/04/23 Status: Ordered Start: 07-07-2021 End: 04-29-2024 take 1 tablet by mouth once daily at bedtime Lorazepam (Ativan) 1 mg tablet Discontinued 1 MG PO Daily at bedtime July 07, 2021 8:07am April 29, 2024 9:25am Start: 07-07-2021 take 1 tablet by olya th three times daily Lorazepam (Ativan) 1 mg tablet Active 1 MG PO Three times daily July 07, 2021 8:07am Start: 11-06-2020 End: 07-07-2021 take 1 tablet by mouth every twelve hours as needed for anxiety Lorazepam (Ativan) 1 mg tablet Discontinued 1 MG PO Q12H as needed for anxiety 10 5 November 05, 2020 11:00pm July 07, 2021 8:07am Start: 09-16-2020 End: 07-07-2021 take 1 mg by mouth twice daily Lorazepam Discontinued 1 MG PO Twice daily 0 September 16, 2020 9:45am July 07, 2021 9:06am Start: 04-04-2020 End: 07-05-2020 take 3 tablets by mouth once daily at bedtime Lorazepam (Ativan) 1 mg Tablet Discontinued 3 MG PO Daily at bedtime April 04, 2020 12:00am July 05, 2020 10:47am Start: 05-10-2016 End: 07-07-2021 take 1 mg by mouth twice daily as needed for anxiety Lorazepam 2 mg Tablet Discontinued 1 MG PO Twice daily as needed for Anxiety 0 September 16, 2020 8:45am July 07, 2021 8:06am Start: 11-02-2009 take 1 tablet by olya th twice daily lorazepam(ATIVAN 1 MG TAB) Take by mouth. BID weaning off 0 11/02/2009 Active LORazepam Active Comment on above: Take by mouth. BID w eaning off losartan potassium 50 mg oral tablet (5 sources) Angiotensin 2 Receptor Cordell Start: 03-22-19 losartan 50 mg Tab 100 mg = 2 tab(s), Oral, Daily, Hold for sbp 110 or less, Refills(s) 0 Start Date: 03/22/22 Status: Ordered methocarbamol 500 mg oral tablet (1 source) Muscle Relaxant Start: 02-20-20 End: 02-27-20 take 1 tablet by mouth three times daily methocarbamol (ROBAXIN) 500 mg tablet Take 1 tablet by mouth three times a day for 7 days. 21 tablet 0 02/19/2023 02/26/2023 Active Comment on above: Take 1 tablet by olya th three times a day for 7 days. metroNIDAZOLE 500 mg oral tablet (1 source) Nitroimidazole Antimicrobial Start: 09-21-19 End: 09-28-19 take 1 tablet by mouth three times daily Flagyl 500 mg Tab 500 mg = 1 tab(s), Oral, TID, X 7 day(s), # 21 tab(s), Refills(s) 0, Pharmacy: [facility] #[id number], 187, cm, 09/19/23 0:34:00 EDT, Height/Length Dosing, 98.8, kg, 09/19/23 0:34:00 EDT, Weight Dosing Start Date: 09/21/23 Stop Date: 09/28/23 Status: Ordered ondansetron 4 mg disintegrating oral tablet (20 sources) Serotonin-3 Receptor Antagonist Start: 04-24-19 End: 04-27-19 take 1 tablet by mouth every six hours ondansetron 4 mg Dis Tab 4 mg = 1 tab(s), Oral, q6hr, X 3 day(s), # 10 tab(s), Refills(s) 0, Pharmacy: [facility] #[id number], 188, cm, 04/24/24 13:55:00 EST, Height/Length Dosing, 87.6, kg, 04/24/24 13:55:00 EST, Weight Dosing Start Date: 04/24/24 Stop Date: 04/27/24 Status: Ordered Start: 08-19-2023 take 1 tablet by olya th every eight hours as needed for nausea ondansetron 8 mg Dis Tab 8 mg = 1 tab(s), Oral, q8hr, PRN Nausea/Vomiting Start Date: 10/05/23 Status: Ordered Start: 08-19-2023 take 1 tablet by olya th every eight hours as needed for nausea and vomiting Ondansetron 4 mg tablet,disintegrating Active 4 MG PO Q8H as needed for nausea and vomiting August 18, 2023 11:00pm Start: 03-24-2020 End: 07-05-2020 take 1 tablet by mouth every eight hours as needed for nausea Ondansetron Hcl 8 mg Tablet Discontinued 8 MG PO Q8H as needed for Nausea March 24, 2020 9:57am July 05, 2020 10:48am oxyCODONE hydrochloride 10 mg oral tablet (20 sources) Opioid Agonist Start: 12-31-2023 End: 12-31-2023 take 1-2 tablets by mouth three times daily as needed for pain Oxycodone 10 mg tablet Discontinued 0 PO Three times daily as needed for pain December 31, 2023 December 31, 2023 9:02am 1-2 tabs orally three times daily PRN; Start: 12-31-2023 take 1-2 tablets by mouth three times daily as needed Oxycodone Active 0 PO Three times daily 90 December 31, 2023 1-2 tabs orally three times daily PRN; Start: 07-29-2023 End: 12-31-2023 take 1-2 tablets by mouth three times daily as needed for pain Oxycodone 10 mg tablet Discontinued 0 PO Three times daily as needed for pain 60 December 16, 2023 December 31, 2023 8:57am 1-2 tabs orally three times daily PRN; Start: 07-29-2023 End: 04-23-2024 take 1 tablet by mouth every four to six hours as needed for pain Oxycodone 10 mg tablet Active 10 MG PO EVERY 4-6 HOURS as needed for pain 75 15 April 23, 2024 Start: 07-29-2023 take 1 tablet by olya th four times daily as needed for pain oxycodone 10 mg oral tablet 10 mg = 1 tab(s), Oral, QID, PRN Pain, Refills(s) 0 Start Date: 10/05/23 Status: Ordered Start: 05-30-2023 End: 07-29-2023 take 1-2 tablets by mouth twice daily as needed for pain Oxycodone 10 mg tablet Discontinued 10 MG PO Twice daily as needed for pain 40 May 29, 2023May 30, 2023 3:16pm 1-2 tabs BID PRN pancrelipase (4 sources) Start: 02-04-2023 pancrelipase S ee Instructions, Refills(s) 0 Start Date: 02/04/23 Status: Ordered pantoprazole 40 mg delayed release oral tablet (20 sources) Proton Pump Inhibitor Start: 03-22-2022 End: 12-10-2023 take 1 tablet by mouth once daily Pantoprazole 40 mg tablet,delayed release (DR/EC) Active 40 MG PO Daily April 13, 2023 12:00am Start: 11-11-2019 take 1 tablet by olya th once daily Pantoprazole [address] Tab 40 mg = 1 tab(s), Oral, Daily, # 30 tab(s), Refills(s) 0, Pharmacy: [facility] #[id number], 188, cm, 11/09/19 7:15:00 EDT, Height/Length Dosing, 95.5, kg, 11/09/19 7:15:00 EDT, Weight Dosing Start Date: 11/11/19 Status: Ordered polyethylene glycol 3350 22302 mg powder for oral solution (5 sources) Osmotic Laxative Start: 03-22-2022 Miralax 3350 17 gram packet Oral, Daily, Refills(s) 0 Start Date: 03/22/22 Status: Ordered predniSONE 20 mg oral tablet (20 sources) Start: 02-10-2024 End: 02-17-2024 take 3 tablets by mouth once daily predniSONE 20 mg Tab 60 mg = 3 tab(s), Oral, Daily, X 7 day(s), # 21 tab(s), Refills(s) 0, Pharmacy: [facility] #[id number], 188, cm, 02/10/24 15:24:00 EST, Height/Length Dosing, 96, kg, 02/10/24 15:24:00 EST, Weight Dosing Start Date: 02/10/24 Stop Date: 02/17/24 Status: Ordered Start: 10-09-2023 predniSONE 10 mg Tab = 1 -, Oral, As Directed, Take 3 tabs by mouth daily x3 days, then 2 tabs daily x3 days, then 1 tab daily x3 days., # 18 tab(s), Refills(s) 0, Pharmacy: [facility] #[id number], 187, cm, 10/05/23 1:21:00 EDT, Height/Length Dosing, 103, kg, 10/05/23 1:21:00 EDT, Weight Dosing Start Date: 10/09/23 Status: Ordered Start: 04-14-2023 End: 04-18-2023 predniSONE (Deltasone) 20 MG tablet Daily 0 04/14/2023 04/18/2023 Discontinued (Therapy completed) Start: 04-14-2023 End: 06-24-2023 take 2 tablets by mouth once daily Prednisone 20 mg tablet Discontinued 40 MG PO Daily 12 13April 14, 2023 12:00am June 24, 2023 2:18pm Start: 04-13-2023 End: 06-24-2023 take 40 mg by mouth once daily Prednisone Discontinued 40 MG PO Daily 12 13April 14, 2023 1:00am June 24, 2023 3:18pm pregabalin 150 mg oral capsule (20 sources) Start: 06-19-2021 take 1 capsule by mouth twice daily Pregabalin 150 mg capsule Active 150 MG PO Twice daily June 18, 2021 11:00pm Start: 06-19-2021 End: 07-07-2021 take 1 capsule by mouth twice daily Pregabalin 75 mg capsule Discontinued 75 MG PO Twice daily June 18, 2021 11:00pm July 07, 2021 8:07am Start: 04-26-2021 End: 07-07-2021 take 1 capsule by mouth twice daily Pregabalin (Lyrica) 50 mg Capsule Discontinued 50 MG PO Twice daily April 26, 2021 12:00am July 07, 2021 8:07am take 1 capsule by [facility] every twenty-four hours Pregabalin 150 MG 1 capsule Orally Once a day Active Comment on above: Take 150 mg by mouth . Weaning off medication S.A.S.H (SALINE, ADMINISTRATION OF DRUG, SALINE, HEPARIN) (15 sources) Start: 2023 S.A.S.H (SALINE, ADMINISTRATION OF DRUG, SALINE, HEPARIN) S.A.S.H (SALINE, ADMINISTRATION OF DRUG, SALINE, HEPARIN), per protocol after each use., Print Requisition, Supply Start Date: 10/09/23 Status: Ordered sildenafil 100 mg oral tablet (19 sources) Phosphodiesterase 5 Inhibitor Start: 2023 take 1 tablet by mouth once daily as needed sildenafil (Viagra) 100 MG tablet Indications: Erectile dysfunction, unspecified erectile dysfunction type Take 1 tablet (100 mg) by mouth Daily as needed for erectile dysfunction 30 tablet 11/26/2023 Active Sucralfate (2 sources) Aluminum Complex Sucralfate Acti ve sulfamethoxazole 800 mg / trimethoprim 160 mg oral tablet (2 sources) Dihydrofolate Reductase Inhibitor Antibacterial, Sulfonamide Antimicrobial Start: 2024 End: 2024 take 1 tablet by mouth once in the morning, then take 1 tablet by mouth once at bedtime sulfamethoxazole-trim ethoprim (Bactrim DS) 800-160 MG per tablet Indications: Cellulitis of right heel Take 1 tablet by mouth in the morning and 1 tablet before bedtime. Do all this for 10 days. 20 tablet 03/26/2024 04/05/2024 Active SZSTANDARD1-Topical Cream Baclofen 2%, Cyclobenzaprine HCL 2%, Diclofenac Na 3%, Gabapentin 6%, Lidocaine HCL 2% Cream (5 sources) Start: 2021 SZSTANDARD1-Topical Cream Baclofen 2%, Cyclobenzaprine HCL 2%, Diclofenac Na 3%, Gabapentin 6%, Lidocaine HCL 2% Cream NEEDED TOPICALLY APPLY 1-2 GRAMS FOR 2-3 MINUTES EVERY 6-8 HOURS for 30 day(s) G89.29 Jun, Active tamsulosin hydrochloride 0.4 mg oral capsule (20 sources) alpha-Adrenergic Cordell Start: 2023 take 1 capsule by mouth twice daily tamsulosin 0.4 mg Cap 0.4 mg = 1 cap(s), Oral, BID, # 60 cap(s), Refills(s) 11, Pharmacy: [facility] #[id number], 188, cm, 01/06/24 10:52:00 EDT, Height/Length Dosing, 96, kg, 01/06/24 10:52:00 EDT, Weight Dosing Start Date: 01/06/24 Status: Ordered Start: 02-23-2023 End: 09-21-2023 take 1 capsule by mouth every twenty-four hours Tamsulosin 0.4 mg capsule Active 0.4 MG PO Q24H April 13, 2023 12:00am Start: 03-22-2022 take 1 capsule by mouth once d aily tamsulosin (Flomax) 0.4 MG 24 hr capsule Indications: Benign prostatic hyperplasia with urinary frequency TAKE 1 CAPSULE BY MOUTH ONCE DAILY 90 capsule 3 05/09/2023 Active Comment on above: Take 0.4 mg by mouth once daily. tiZANidine 4 mg oral tablet (14 sources) Central alpha-2 Adrenergic Agonist Start: 4 take 1 tablet by mouth every six hours for muscle spasms tiZANidine (Zanaflex) 4 MG tablet Indications: Neck pain Take 1 tablet (4 mg) by mouth every 6 (six) hours if needed for muscle spasms 30 tablet 02/14/2024 Active Ventolin HFA 90 mcg/inh Aerosol-Adpt (19 sources) Start: 3 take 1 puff(s) by inhalation every four hours Ventolin HFA 90 mcg/inh Aerosol-Adpt 1 puff(s), Inhalation, q4hr Shortness of breath or wheezing, Refill(s) 0 Start Date: 02/04/23 Status: Ordered Start: 02-04-2023 take 1 puff(s) by in halation every four hours Ventolin HFA 90 mcg/inh Aerosol-Adpt 1 puff(s), Inhalation, q4hr, Refill(s) 0 Start Date: 02/04/23 Status: Ordered Vitamin D (6 sources) Start: 02-04-2023 take 50 ug by mouth once Vitamin D 50 mcg, Oral, Refills(s) 0 Start Date: 02/04/23 Status: Ordered Vitamin D Active Vitamin D 50 MCG (1999) (4 sources) take 1 capsule by mouth once daily Vitamin D 50 MCG (1999) 1 capsule Orally Once a day Active Vitamin D3 1999 intl units oral Tab (15 sources) Start: 10-05-2023 take 1 tablet by mouth once daily Vitamin D3 1999 intl units oral Tab 50 mcg, Oral, Daily Start Date: 10/05/23 Status: Ordered Completed/Discontinued Medications Medication Drug Class(es) Dates Sig (Normalized) Sig (Original) acetaminophen 325 mg / HYDROcodone bitartrate 5 mg oral tablet (13 sources) Opioid Agonist Start: 05-02-2023 End: 06-24-2023 take 1 tablet by mouth every six hours as needed for pain Hydrocodone-Acetam inophen 5-325 mg tablet Discontinued 1 TAB PO Q6H as needed for pain 10 3 May 02, 2023 June 24, 2023 2:13pm acyclovir 40 mg/ml oral suspension (20 sources) Herpesvirus Nucleoside Analog DNA Polymerase Inhibitor, Herpes Simplex Virus Nucleoside Analog DNA Polymerase Inhibitor, Herpes Zoster Virus Nucleoside Analog DNA Polymerase Inhibitor Start: 07-06-2020 End: 09-06-2020 take 400 mg by mouth twice daily Acyclovir 200 mg/5 mL Suspension Discontinued 400 MG PO Twice daily 300 14 July 05, 2020 11:00pm September 06, 2020 4:19pm Albuterol Sulfate 108 (90 Base) MCG/ACT (6 sources) Albuterol Sulfat e 108 (90 Base) MCG/ACT 2 puffs Inhalation every4-6h PRN Not-Taking Albuterol Sulfat e 108 (90 Base) MCG/ACT 2 puffs Inhalation every4-6h PRN Active amLODIPine 10 mg oral tablet (20 sources) Dihydropyridine Calcium Channel Cordell Start: 02-04-2023 End: 02-13-2024 take 1 tablet by mouth once daily Amlodipine 10 mg tablet Discontinued 10 MG PO Daily June 23, 2023 11:00pm February 13, 2024 1:09pm Start: 07-07-2021 End: 06-24-2023 take 2 tablets by mouth once daily Amlodipine 5 mg tablet Discontinued 10 MG PO Daily July 06, 2021 11:00pm June 24, 2023 2:11pm Start: 07-07-2021 End: 06-24-2023 take 10 mg by mouth once daily Amlodipine Discontinued 10 MG PO Daily July 07, 2021 12:00am June 24, 2023 3:11pm Start: 07-07-2021 take 5 mg by mouth once daily Amlodipine Active 5 MG PO Daily July 06, 2021 11:00pm Start: 03-17-2020 End: 07-05-2020 take 1 tablet by mouth once daily in the morning Amlodipine 5 mg Tablet Discontinued 5 MG PO Every morning March 17, 2020 12:00am July 05, 2020 10:46am Comment on above: Take 10 mg by mouth once daily. ARIPiprazole 15 mg oral tablet (20 sources) Atypical Antipsychotic Start: 03-17-19 End: 07-06-19 take 1 tablet by mouth once daily in the morning Aripiprazole (Abilify) 15 mg Tablet Discontinued 15 MG PO Every morning April 04, 2020 12:00am July 05, 2020 10:46am Start: 04-13-2016 take 5 mg by mouth once daily Abilify 5 mg, Oral, Daily, Refills(s) 0 Start Date: 04/13/16 Status: Ordered End: 10-19-2022 take 1 tablet by mouth once daily ARIPiprazole (ABILIFY) 2 mg tablet Take 2 mg by mouth once daily. 0 10/19/2022 Discontinued (Course of therapy completed) Comment on above: Take 2 mg by mouth o nce daily. atorvastatin 20 mg oral tablet (20 sources) HMG-CoA Reductase Inhibitor Start: End: take 1 tablet by mouth once daily in the morning Atorvastatin (Lipitor) 20 mg Tablet Discontinued 20 MG PO Every morning April 04, 2020 12:00am July 05, 2020 10:46am Start: 05-10-2016 End: 04-04-2020 take 1 tablet by mouth once daily Atorvastatin 40 mg Tablet Discontinued 40 MG PO Daily March 17, 2020 12:00am April 04, 2020 11:28am Start: 11-02-2009 take 1 tablet by olya th once daily at bedtime Atorvastatin 10 mg tablet Active 10 MG PO Daily at bedtime April 13, 2023 12:00am Comment on above: Take one(1) tablet d aily. blood-glucose sensor (DEXCOM G7 SENSOR MISC) (8 sources) blood-glucose sensor (DEXCOM G7 SENSOR MISC) 1 Each. 0 Active Comment on above: 1 Each. Budesonide (20 sources) Corticosteroid Start: 07-26-19 End: 09-07-19 take 180 ug by inhalation twice daily Budesonide (Pulmicort Flexhaler) 180 mcg/actuation Aerosol Powdr Breath Activated Discontinued 1 INH INHALATION Twice daily 60 July 24, 2020 11:00pm September 06, 2020 4:19pm Start: 07-25-2020 End: 09-06-2020 take 180 ug by inhalation twice daily Budesonide (Pulmicort Flexhaler) 180 mcg/actuation Aerosol Powdr Breath Activated Discontinued 1 INH INHALATION Twice daily 60 July 25, 2020 12:00am September 06, 2020 5:19pm take 1 puff(s) by in halation twice daily Pulmicort Flexhaler 90 MCG/ACT 1 puff Inhalation twice a day Not-Taking Budesonide / formoterol (11 sources) Corticosteroid, beta2-Adrenergic Agonist take 2 puff(s) by inhalation twice daily budesonide-formoterol (SYMBICORT) 160-4.5 mcg/actuation inhaler Inhale 2 Puffs as instructed twice daily. 0 Active Comment on above: Inhale 2 Puffs as instructed twice daily . cephalexin 500 mg oral capsule (8 sources) Cephalosporin Antibacterial Start: 2023 End: 2023 take 2 capsules by mouth twice daily Cephalexin 500 mg capsule Discontinued 1000 MG PO Twice daily 40 August 18, 2023 11:00pm November 21, 2023 10:30am Start: 08-19-2023 End: 11-21-2023 take 1000 mg by mouth twice daily Cephalexin Discontinued 1000 MG PO Twice daily 40 August 19, 2023 12:00am November 21, 2023 11:30am Start: 11-13-2022 End: 11-20-2022 take 1 capsule by mouth four times daily cephALEXin (KEFLEX) 500 mg capsule Take 1 capsule by mouth four times daily for 7 days. 28 capsule 0 11/13/2022 11/20/2022 Active Comment on above: Take 1 capsule by [facility] four times daily for 7 days. chlorhexidine gluconate 40 mg/ml medicated liquid soap (1 source) Start: 0 Hibiclens 4 % External Liquid USE DIRECTED. Quantity: 1 Refills: 0 [facility] [employer], Margaret Start : 11-Feb-2020 Active 118 ML Bottle ciprofloxacin 500 mg oral tablet (9 sources) Quinolone Antimicrobial Start: 4 take 1 tablet by mouth once daily Cipro 500 mg Tab 500 mg = 1 tab(s), Oral, Daily, Take 1 tablet the day before the procedure and 1 tablet after the procedure, # 2 tab(s), Refills(s) 0, Pharmacy: [facility] #[id number], 188, cm, 01/06/24 10:52:00 EDT, Height/Length Dosing, 96, kg, 01/06/24 10:52:00 EDT, Weight Dosing Start Date: 01/24/24 Status: Ordered Start: 09-21-2023 End: 09-28-2023 take 1 tablet by mouth every twelve hours Cipro 500 mg Tab 500 mg = 1 tab(s), Oral, q12hr, X 7 day(s), # 14 tab(s), Refills(s) 0, Pharmacy: [facility] #[id number], 187, cm, 09/19/23 0:34:00 EDT, Height/Length Dosing, 98.8, kg, 09/19/23 0:34:00 EDT, Weight Dosing Start Date: 09/21/23 Stop Date: 09/28/23 Status: Ordered clindamycin 300 mg oral capsule (7 sources) Lincosamide Antibacterial Start: 11-21-2023 End: 12-31-2023 take 1 capsule by mouth every six hours Clindamycin Hcl 300 mg capsule Discontinued 300 MG PO Every 6 hours 40 November 20, 2023 11:00pm December 31, 2023 8:26am clonazePAM 1 mg oral tablet (20 sources) Benzodiazepine Start: 09-16-2020 End: 07-07-2021 take 1 tablet by mouth three times daily Clonazepam 1 mg Tablet Discontinued 1 MG PO Three times daily September 15, 2020 11:00pm July 07, 2021 8:15am dicyclomine hydrochloride 20 mg oral tablet (20 sources) Anticholinergic Start: 07-07-2021 End: 11-15-2021 take 1 tablet by mouth once daily Dicyclomine 20 mg tablet Discontinued 20 MG PO Daily July 06, 2021 11:00pm November 15, 2021 9:10am take 1 tablet by olya th every eight hours Dicyclomine HCl 20 MG 1 tablet Orally Th ree times a day Active DULoxetine 60 mg delayed release oral capsule (20 sources) Serotonin and Norepinephrine Reuptake Inhibitor Start: 03-17-2020 End: 07-05-2020 take 1 capsule by mouth once daily in the morning Duloxetine (Cymbalta) 60 mg Capsule,Delayed Release(Dr/Ec) Discontinued 60 MG PO Every morning April 04, 2020 12:00am July 05, 2020 10:46am take 1 capsule by mouth once jovana ly Cymbalta 20 MG Oral Capsule Delayed Release Particles TAKE 1 CAPSULE Daily Refills: 0 DO Active fluconazole 100 mg oral tablet (20 sources) Azole Antifungal Start: 02-15-2022 End: 04-13-2023 Fluconazole (Diflucan) 100 mg Tablet Discontinued 100 MG PO Daily February 15, 2022 12:00am April 13, 2023 9:36am Take 2 tabs = 200 mg on day 1; followed by 100 mg daily to equal 10 days Start: 07-06-2020 End: 07-08-2020 take 100 mg by mouth once daily Fluconazole 40 mg/mL Suspension For Reconstitution Discontinued 100 MG PO Daily 140 14 July 05, 2020 11:00pm July 08, 2020 9:12am Start: 07-06-2020 End: 07-08-2020 take 100 mg by mouth once daily Fluconazole Discontinued 100 MG PO Daily 140 14 July 06, 2020 12:00am July 08, 2020 10:12am FLUoxetine 40 mg oral capsule (1 source) Serotonin Reuptake Inhibitor End: 08-13-2022 take 1 capsule by mouth once daily FLUoxetine HCl (PROZAC) 40 mg capsule Take 40 mg by mouth once daily. 0 08/13/2022 Discontinued (Other) Comment on above: Take 40 mg by mouth once daily. furosemide 20 mg oral tablet (20 sources) Loop Diuretic Start: 02-04-2023 End: 06-09-2024 take 1 tablet by mouth once daily Furosemide 20 mg tablet Discontinued 20 MG PO Daily April 13, 2023 12:00am February 03, 2024 2:10pm Comment on above: Take 20 mg by mouth once daily. gabapentin 300 mg oral capsule (20 sources) Anti-epileptic Agent Start: 01-26-2021 End: 04-26-2021 take 1 capsule by mouth three times daily Gabapentin (Neurontin) 300 mg Capsule Discontinued 300 MG PO Three times daily 270 90 January 26, 2021 12:00am April 26, 2021 10:07am Start: 07-14-2020 End: 01-26-2021 take 1 capsule by mouth twice daily Gabapentin 100 mg Capsule Discontinued 100 MG PO Twice daily July 13, 2020 11:00pm January 26, 2021 2:37pm hydroCHLOROthiazide 25 mg oral tablet (20 sources) Thiazide Diuretic Start: 09-16-2020 End: 02-13-2024 take 1 tablet by mouth once daily Hydrochlorothiazide 25 mg Tablet Discontinued 25 MG PO Daily September 15, 2020 11:00pm February 13, 2024 1:10pm hydroCHLOROthiazide 25 mg / losartan potassium 100 mg oral tablet (20 sources) Thiazide Diuretic, Angiotensin 2 Receptor Cordell Start: 05-10-2016 End: 07-05-2020 take 1 tablet by mouth once daily in the morning Losartan-Hydrochloroth iazide (Hyzaar) 100-25 mg Tablet Discontinued 1 TAB PO Every morning April 04, 2020 12:00am July 05, 2020 10:47am hyoscyamine sulfate 0.125 mg sublingual tablet (20 sources) Start: 05-30-2023 End: 08-09-2023 Hyoscyamine Sulfate (Levsin/Sl) 0.125 mg tablet, sublingual Discontinued 0.125 MG SUBLINGUAL 2-4 TIMES PER DAY as needed for dyspepsia 28 12May 30, 2023 3:15pm August 09, 2023 10:43am Humalog (20 sources) Insulin Analog Start: 10-07-2023 End: 10-07-2023 HumaLOG Sliding Scale 0-10 Unit(s), Injection-Insulin, SubCutaneous, Start date 10/07/23 11:30:00 AM EDT Start Date: 10/07/23 Stop Date: 10/07/23 Status: Completed Start: 03-22-2022 insulin lispro 0-10 units, SubCutaneous, QIDACHS, Refills(s) 0 Start Date: 03/22/22 Status: Ordered Start: 07-07-2021 inject 8 [IU] by sub cutaneous injection three times daily Insulin Lispro (Humalog Kwikpen Insulin) 100 unit/mL Insulin Pen Active 8 UNIT SUBCUT Three times daily July 06, 2021 11:00pm Start: 03-17-2020 End: 07-05-2020 inject 100 [IU] by subcutaneous injection once Insulin Lispro (Humalog Kwikpen Insulin) 100 unit/mL insulin pen Discontinued 100 UNIT SUBCUT Per protocol March 17, 2020 12:00am July 05, 2020 10:47am Per sliding scale Please contact the information source for Protocol details. Start: 01-01-2020 HumaLOG 100 un its/mL injectable solution SubCutaneous, BIDAC, PRN Other (see comment) Start Date: 01/01/20 Status: Ordered HumaLOG KwikPen 100 UNIT/ML as directed Subcutaneous SLIDING SCALE WITH EACH MEAL Active HumaLOG Active HumaLOG 100 UNIT /ML Subcutaneous Solution Refills: 0 Active Insulin Lispro (Humalog Kwikpen Insulin) 100 unit/mL Insulin Pen (19 sources) Start: 07-07-2021 End: 06-24-2023 inject 8 [IU] by subcutaneous injection three times daily Insulin Lispro (Humalog Kwikpen Insulin) 100 unit/mL Insulin Pen Discontinued 8 UNIT SUBCUT Three times daily July 06, 2021 11:00pm June 24, 2023 2:19pm Start: 07-07-2021 End: 06-24-2023 inject 8 [IU] by subcutaneous injection three times daily Insulin Lispro (Humalog Kwikpen Insulin) 100 unit/mL Insulin Pen Discontinued 8 UNIT SUBCUT Three times daily July 07, 2021 12:00am June 24, 2023 3:19pm Start: 07-07-2021 inject 8 [IU] by sub cutaneous injection three times daily Insulin Lispro (Humalog Kwikpen Insulin) 100 unit/mL Insulin Pen Active 8 UNIT SUBCUT Three times daily July 07, 2021 12:00am Start: 07-07-2021 inject 8 [IU] by sub cutaneous injection three times daily Insulin Lispro (Humalog Kwikpen Insulin) 100 unit/mL Insulin Pen Active 8 UNIT SUBCUT Three times daily July 06, 2021 11:00pm insulin lispro protamin/lispro (HUMALOG MIX 50-50 KWIKPEN SUBCUTANEOUS) (7 sources) insulin lispro protamin/lispro (HUMALOG MIX 50-50 KWIKPEN SUBCUTANEOUS) Inject 34 Units subcutaneously DAILY (6 AM). 0 Active Comment on above: Inject 34 Units subc utaneously DAILY (6 AM). levoFLOXacin 750 mg oral tablet (20 sources) Quinolone Antimicrobial Start: End: take 1 tablet by mouth once daily Levofloxacin 750 mg Tablet Discontinued 750 MG PO Daily July 07, 2020 11:00pm July 25, 2020 1:14pm Lidocaine (20 sources) Antiarrhythmic, Amide Local Anesthetic Start: End: Lidocaine Hcl (Lidocaine Viscous) 2 % Solution Discontinued 15 ML MUCOUS MEM Q6H as needed for Sore Throat July 04, 2020 11:00pm July 25, 2020 1:14pm Start: 07-05-2020 End: 07-25-2020 Lidocaine Hcl (Lidocaine Vis cous) 2 % Solution Discontinued 15 ML MUCOUS MEM Q6H July 04, 2020 11:00pm July 25, 2020 1:14pm Start: 07-05-2020 End: 07-25-2020 Lidocaine Hcl (Lidocaine Vis cous) 2 % Solution Discontinued 15 ML MUCOUS MEM Q6H July 05, 2020 12:00am July 25, 2020 2:14pm linagliptin 5 mg oral tablet (20 sources) Dipeptidyl Peptidase 4 Inhibitor Start: 09-16-2020 End: 07-07-2021 take 1 tablet by mouth once daily at breakfast Linagliptin (Tradjenta) 5 mg Tablet Discontinued 5 MG PO Daily with breakfast September 15, 2020 11:00pm July 07, 2021 8:14am 3 ml liraglutide 6 mg/ml pen injector (1 source) GLP-1 Receptor Agonist End: 08-13-2022 inject 1.2 mg by subcutaneous injection twice daily liraglutide (VICTOZA) 0.6 mg/0.1 mL (18 mg/3 mL) Inject 1.2 mg subcutaneously twice daily. 0 08/13/2022 Discontinued (Other) Comment on above: Inject 1.2 mg subcut aneously twice daily. metFORMIN hydrochloride 1000 mg oral tablet (20 sources) Biguanide Start: 09-10-2020 End: 02-22-2021 take 1 tablet by mouth twice daily Metformin 1,000 mg tablet Discontinued 1000 MG PO Twice daily September 09, 2020 11:00pm February 22, 2021 3:33pm Start: 05-10-2016 End: 08-13-2022 take 2 tablets by mouth once daily metFORMIN (GLUCOPHAGE) 1,000 mg tablet Take 2 tablets by mouth once daily. 0 05/10/2016 08/13/2022 Discontinued (Other) Start: 03-18-2015 End: 07-05-2020 take 1 tablet by mouth twice daily Metformin 1,000 mg Tablet Discontinued 1000 MG PO Twice daily March 17, 2020 12:00am July 05, 2020 10:47am Comment on above: Take 2 tablets by mo [facility] once daily. metoprolol tartrate 25 mg oral tablet (8 sources) beta-Adrenergic Cordell Start: 10-05-2023 End: 10-05-2023 Metoprolol tartrate 25 mg Tab 25 mg = 1 tab(s), Tab, Oral, Start date 10/05/23 9:00:00 AM EDT, 10/05/23 6:17:00 EDT Start Date: 10/05/23 Stop Date: 10/05/23 Status: Completed Start: 09-20-2023 End: 09-21-2023 Metoprolol tartrate 25 mg Ta b 12.5 mg = 0.5 tab(s), Tab, Oral, Start date 09/21/23 9:00:00 AM EDT, hold if HR Start Date: 09/21/23 Stop Date: 09/21/23 Status: Completed Start: 03-22-2022 Metoprolol tar trate 25 mg Tab 25 mg = 1 tab(s), Oral, BID, Hold for sbp 110 or less or HR 55 or less, Refills(s) 0 Start Date: 03/22/22 Status: Ordered mirtazapine 30 mg oral table t (20 sources) Start: 11-15-2021 End: 06-24-2023 Mirtazapine 30 mg Tablet Discontinued 45 MG PO Daily November 14, 2021 11:00pm June 24, 2023 2:17pm Start: 11-15-2021 End: 06-24-2023 take 45 mg by mouth once daily Mirtazapine Discontinue d 45 MG PO Daily November 15, 2021 12:00am June 24, 2023 3:17pm Start: 09-16-2020 End: 07-07-2021 take 22.5 mg by mouth once daily at bedtime Mirtazapine Discontinued 22.5 MG PO Daily at bedtime 50 15 September 16, 2020 12:00am July 07, 2021 9:14am Start: 09-09-2020 End: 09-16-2020 take 1 tablet by mouth once daily Mirtazapine 15 mg tablet Discontinued 15 MG PO Daily September 08, 2020 11:00pm September 16, 2020 11:21am Start: 09-07-2020 take 1 tablet by olya th once daily at bedtime Mirtazapine 45 mg tablet Active 45 MG PO Daily at bedtime June 23, 2023 11:00pm Start: 09-07-2020 take 1 tablet by olya th once daily at bedtime mirtazapine 30 mg Tab 30 mg = 1 tab(s), Oral, Once a day (at bedtime), # 30 tab(s), Refills(s) 0 Start Date: 03/18/22 Status: Ordered Start: 09-07-2020 End: 07-07-2021 take 3 tablets by mouth once daily at bedtime Mirtazapine 7.5 mg Tablet Discontinued 22.5 MG PO Daily at bedtime 50 15 September 15, 2020 11:00pm July 07, 2021 8:14am Comment on above: Take 45 mg by mouth daily at bedtime. Naloxone (Narcan) 4 mg/actuation spray,non-aerosol (12 sources) Start: 05-30-2023 End: 05-30-2023 Naloxone (Narcan) 4 mg/actuation spray,non-aerosol Discontinued 4 MG INTRANASAL Q2M 2 May 29, 2023 11:00pm May 30, 2023 2:54pm spray 1 dose into ONE nostril; alternate nostrils w each dose until help arrives Start: 05-30-2023 End: 05-30-2023 Naloxone (Narcan) 4 mg/actua tion spray,non-aerosol Discontinued 4 MG INTRANASAL Q2M 2 May 30, 2023 12:00am May 30, 2023 3:54pm spray 1 dose into ONE nostril; alternate nostrils w each dose until help arrives Start: 05-30-2023 Naloxone (Narc an) 4 mg/actuation spray,non-aerosol Active 4 MG INTRANASAL Q2M 2 May 30, 2023 12:00am spray 1 dose into ONE nostril; alternate nostrils w each dose until help arrives nystatin [id number] unt/ml oral suspension (20 sources) Polyene Antifungal Start: 07-08-2020 End: 07-25-2020 take 1 mL by mouth three times daily Nystatin 100,000 unit/mL Suspension Discontinued 5 ML PO Three times daily July 07, 2020 11:00pm July 25, 2020 1:14pm swish and swallow potassium chloride 10 meq extended release oral tablet (20 sources) Start: 06-20-2020 End: 07-05-2020 take 2 tablets by mouth twice daily Potassium Chloride 10 mEq Tablet Extended Release Discontinued 20 MEQ PO Twice daily 56 14 June 20, 2020 11:08am July 05, 2020 10:47am Start: 06-20-2020 End: 07-05-2020 take 20 mEq by mouth twice daily Potassium Chloride Discontinued 20 MEQ PO Twice daily 56 14 June 20, 2020 12:08pm July 05, 2020 11:47am prochlorperazine 10 mg oral tablet (20 sources) Phenothiazine Start: 09-09-2020 End: 09-19-2020 Prochlorperazine Maleate 10 mg tablet Discontinued MG TABLET September 08, 2020 11:00pm September 19, 2020 9:42am Start: 09-09-2020 End: 09-19-2020 Prochlorperazine Maleate Dis continued MG TABLET September 09, 2020 12:00am September 19, 2020 10:42am Start: 06-15-2020 End: 09-06-2020 take 1 tablet by mouth every six hours Prochlorperazine Maleate 10 mg tablet Discontinued 10 MG PO Every 6 hours July 04, 2020 11:00pm August 16, 2020 7:28am traMADol hydrochloride 50 mg oral tablet (20 sources) Opioid Agonist Start: 02-22-2021 End: 11-15-2021 take 1 tablet by mouth every six hours as needed for pain Tramadol 50 mg Tablet Discontinued 50 MG PO Q6H as needed for Pain 60 February 22, 2021 12:00am November 15, 2021 9:11am Start: 04-04-2020 End: 07-05-2020 take 0.5-1 tablets by mouth every six hours as needed for pain Tramadol (Ultram) 50 mg tablet Discontinued 50 MG PO Q6H as needed for pain 30 April 06, 2020 12:00am April 25, 2020 2:55pm 1/2 - 1 tab po q 6 hours prn pain Start: 01-12-2020 take 1 tablet by olya th every four hours as needed for pain tramadol 50 mg oral tablet 50 mg = 1 tab(s), Oral, q4hr, PRN for pain, # 30 tab(s), Refills(s) 0 Start Date: 01/12/20 Status: Ordered take 1 tablet by olya th every twenty-four hours traMADol HCl 50 MG 1 tablet as needed Orally Once a day Active Tresiba 100 UNIT/ML Subcutan eous Solution (3 sources) Tresiba 100 UNIT /ML Subcutaneous Solution Refills: 0 DO Active Tresiba 100 UNIT /ML Subcutaneous Solution Refills: 0 Active 24 hr venlafaxine 37.5 mg extended release oral capsule (20 sources) Serotonin and Norepinephrine Reuptake Inhibitor Start: 09-16-2020 End: 07-07-2021 take 1 capsule by mouth once daily Venlafaxine 37.5 mg Capsule,Extended Release 24hr Discontinued 112.5 MG PO Daily 60 September 15, 2020 11:00pm July 07, 2021 8:14am Start: 09-16-2020 End: 07-07-2021 take 112.5 mg by mouth once daily Venlafaxine Discontinued 112.5 MG PO Daily 60 September 16, 2020 12:00am July 07, 2021 9:14am take 3 capsules by m outh once daily Venlafaxine HCl ER 37.5 MG 3 capsules (112.5 mg) Orally Once a day per psychiatry Not-Taking zolpidem tartrate 5 mg oral tablet (20 sources) gamma-Aminobutyric Acid-ergic Agonist Start: 07-04-2020 End: 07-25-2020 take 1 tablet by mouth at bedtime as needed Zolpidem 5 mg tablet Discontinued 5 MG PO Bedtime as needed for Insomnia July 03, 2020 11:00pm July 25, 2020 1:14pm Problems Active Problems Problem Classification Problem Date Documented Date Episodic/Chronic Abdominal pain (20 sources) Epigastric pain; Translations: [Abdominal pain] Onset: 4 Resolved: 4 05-30-2023 Episodic Acquired foot deformities (20 sources) Acquired hammer toe of lesser toe of left foot; Translations: [Other hammer toe(s) (acquired), left foot] Onset: 3 09-03-2022 Chronic Anxiety disorders (20 sources) Anxiety; Translations: [Anxiety disorder, unspecified] Onset: 3 11-06-2020 Chronic Asthma (20 sources) Asthma; Translations: [Unspecified asthma, uncomplicated] Onset: 3 Resolved: 3 09-19-2020 Chronic Bacterial infection; unspecified site (2 sources) Bacteremia; Translations: [Bacteremia] Onset: 4 Episodic Biliary tract disease (4 sources) Biliary stricture; Translations: [Biliary stricture] Chronic Calculus of urinary tract (20 sources) Calculus of kidney; Translations: [Kidney stone] Onset: 8 Resolved: 4 Episodic Cancer of other GI organs; peritoneum (20 sources) History of malignant neoplasm of pancreas; Translations: [Personal history of malignant neoplasm of pancreas] Onset: 1 Resolved: 2 Episodic Cancer of pancreas (20 sources) Malignant tumor of pancreas; Translations: [Malignant tumor of head of pancreas] Onset: 2 Resolved: 4 Chronic Cataract (11 sources) Senile cataract; Translations: [Unspecified age-related cataract] Onset: 0 11-02-2009 Chronic Chronic kidney disease (20 sources) Chronic kidney disease; Translations: [Chronic kidney disease, unspecified] Onset: 3 Resolved: 4 01-26-2021 Chronic Chronic kidney disease (5 sources) Chronic kidney disease; Translations: [Chronic kidney disease, stage 3b] Onset: 3 Chronic obstructive pulmonary disease and bronchiectasis (20 sources) Chronic obstructive lung disease; Translations: [Chronic obstructive pulmonary disease, unspecified] Onset: 3 Resolved: 3 10-19-2022 Chronic Chronic ulcer of skin (4 sources) Non-pressure chronic ulcer of right heel and midfoot with fat layer exposed; Translations: [Ulcer of heel and midfoot] 03-31-2024 Chronic Congestive heart failure; nonhypertensive (20 sources) Chronic congestive heart failure; Translations: [Chronic diastolic (congestive) heart failure] Onset: 7 12-11-2023 Chronic Deficiency and other anemia (20 sources) Pancytopenia due to antineoplastic chemotherapy; Translations: [Antineoplastic chemotherapy induced pancytopenia] Onset: 4 Resolved: 4 09-19-2020 Chronic Deficiency and other anemia (20 sources) Anemia in neoplastic disease; Translations: [Anemia in neoplastic disease] Onset: 4 Resolved: 4 06-20-2020 Chronic Deficiency and other anemia (20 sources) Anemia in neoplastic disease; Translations: [Anemia in neoplastic disease] 11-15-2021 Chronic Deficiency and other anemia (5 sources) Anemia of renal disease; Translations: [Anemia in chronic kidney disease] Chronic Deficiency and other anemia (3 sources) Anemia in chronic kidney disease Chronic Diabetes mellitus with complications (20 sources) Diabetes mellitus; Translations: [Other specified diabetes mellitus with diabetic neuropathy, unspecified] Onset: 2 Resolved: 3 Chronic Diabetes mellitus without complication (20 sources) Type 2 diabetes mellitus without complications; Translations: [Diabetes mellitus] Onset: 8 07-04-2020 Chronic Diseases of mouth; excluding dental (20 sources) Aphthous ulcer of mouth; Translations: [Recurrent oral aphthae] Onset: 3 Resolved: 4 09-12-2020 Episodic Diseases of white blood cells (20 sources) Leukocytosis; Translations: [Elevated white blood cell count, unspecified] Onset: 4 Resolved: 4 09-12-2020 Chronic Disorders of lipid metabolism (20 sources) Hyperlipidemia, unspecified; Translations: [Hyperlipidemia] Onset: 8 Resolved: 3 11-09-2019 Chronic Esophageal disorders (20 sources) Gastro-esophageal reflux disease without esophagitis; Translations: [Gastroesophageal reflux disease] Onset: 8 09-03-2022 Chronic Essential hypertension (20 sources) Essential (primary) hypertension; Translations: [Hypertensive disorder] Onset: 8 09-06-2020 Chronic Fluid and electrolyte disorders (20 sources) Hypokalemia, excessive renal losses; Translations: [Hypokalemia] Onset: 4 Resolved: 4 09-12-2020 Episodic Genitourinary symptoms and ill-defined conditions (2 sources) Hematuria, unspecified; Translations: [Microscopic hematuria] Onset: 8 Episodic Hepatitis (20 sources) Chronic hepatitis C; Translations: [Chronic viral hepatitis C] Onset: 8 02-05-2023 Chronic Hepatitis (20 sources) Unspecified viral hepatitis C without hepatic coma; Translations: [Viral hepatitis C] Onset: 2 11-24-2018 Episodic Hyperplasia of prostate (20 sources) Benign prostatic hyperplasia; Translations: [Benign prostatic hyperplasia with lower urinary tract symptoms] Onset: 3 09-03-2022 Chronic Hypertension with complications and secondary hypertension (18 sources) Chronic kidney disease due to hypertension; Translations: [Hypertensive chronic kidney disease with stage 1 through stage 4 chronic kidney disease, or unspecified chronic kidney disease] 06-24-2023 Chronic Intestinal infection (8 sources) Clostridium difficile diarrhea 01-24-2024 Episodic Comment on above: Problem added second dante to positive C-Diff lab result. Lymphadenitis (20 sources) Lymphadenopathy; Translations: [Enlarged lymph nodes, unspecified] Onset: 4 Resolved: 4 05-22-2023 Episodic Maintenance chemotherapy; radiotherapy (20 sources) Patient encounter status; Translations: [Encounter for antineoplastic chemotherapy] 09-19-2020 Chronic Malaise and fatigue (1 source) Asthenia; Translations: [Weakness] Onset: 4 Episodic Medical examination/evaluatio n (4 sources) Encounter for preprocedural laboratory examination; Translations: [ENCOUNTER PREPROCEDURAL LAB EXAM] Onset: 8 Episodic Miscellaneous mental health disorders (3 sources) Pain disorder with psychological factor; Translations: [Pain disorder with related psychological factors] Onset: 3 Chronic Mood disorders (20 sources) Major depressive disorder, single episode, unspecified; Translations: [Depression] Onset: 3 Resolved: 3 09-19-2020 Chronic Mycoses (2 sources) Onychomycosis; Translations: [Tinea unguium] 03-31-2024 Episodic Noninfectious gastroenteritis (3 sources) Noninfectious enteritis; Translations: [Noninfective gastroenteritis and colitis, unspecified] Onset: 4 Episodic Nutritional deficiencies (20 sources) Vitamin D deficiency; Translations: [Vitamin D deficiency, unspecified] Onset: 3 09-19-2020 Chronic Nutritional deficiencies (20 sources) Malignant cachexia; Translations: [Cachexia] Onset: 4 Resolved: 4 06-20-2020 Episodic Other aftercare (20 sources) Patient encounter status; Translations: [Encounter for palliative care] Onset: 4 Resolved: 4 05-26-2023 Episodic Other aftercare (6 sources) Encounter for palliative care; Translations: [Encounter for palliative care] 05-30-2023 Episodic Other aftercare (1 source) Long-term current use of drug therapy; Translations: [Other emt intermediate (current) drug therapy] Onset: 4 Episodic Other and ill-defined heart disease (7 sources) Diastolic dysfunction; Translations: [Other ill-defined heart diseases] Onset: 7 02-05-2023 Chronic Other bone disease and musculoskeletal deformities (20 sources) History of amputation of right great toe; Translations: [Acquired absence of right great toe] Onset: 3 09-07-2022 Chronic Other connective tissue disease (1 source) Other symptoms and signs involving the musculoskeletal system; Translations: [Other symptoms and signs involving the musculoskeletal system] Episodic Other connective tissue disease (1 source) Muscle weakness; Translations: [Muscle weakness (generalized)] Episodic Other diseases of kidney and ureters (16 sources) Secondary hyperparathyroidism; Translations: [Secondary hyperparathyroidism of renal origin] 06-24-2023 Chronic Other diseases of kidney and ureters (10 sources) Secondary hyperparathyroidism of renal origin; Translations: [Secondary hyperparathyroidism (of renal origin)] Chronic Other diseases of kidney and ureters (20 sources) Abnormal renal function; Translations: [Disorder of kidney and ureter, unspecified] Onset: 4 Resolved: 4 02-22-2021 Episodic Other diseases of kidney and ureters (20 sources) Disorder of kidney and ureter, unspecified; Translations: [Unspecified disorder of kidney and ureter] 11-15-2021 Episodic Other diseases of kidney and ureters (1 source) Urinary tract obstruction; Translations: [Other obstructive and reflux uropathy] Onset: 4 Episodic Other diseases of veins and lymphatics (20 sources) Vascular insufficiency; Translations: [Venous insufficiency (chronic) (peripheral)] Onset: 3 04-25-2020 Episodic Other ear and sense organ disorders (20 sources) Mixed conductive and sensorineural hearing loss of right ear; Translations: [Mixed conductive and sensorineural hearing loss, unilateral, right ear, with unrestricted hearing on the contralateral side] Onset: 9 02-05-2023 Chronic Other gastrointestinal disorders (2 sources) Mass of pancreas; Translations: [Pancreatic mass] Episodic Other gastrointestinal disorders (6 sources) Diarrhea; Translations: [Diarrhea, unspecified] Onset: 4 Episodic Other gastrointestinal disorders (20 sources) Swallowing painful; Translations: [Dysphagia, unspecified] Onset: 4 Resolved: 4 09-12-2020 Episodic Other gastrointestinal disorders (20 sources) Stool DNA-based colorectal cancer screening positive; Translations: [Other fecal abnormalities] Onset: 4 08-11-2021 Episodic Other gastrointestinal disorders (20 sources) Dysphagia, unspecified; Translations: [Dysphagia, unspecified] 11-15-2021 Episodic Other hematologic conditions (20 sources) Raised cardiac enzyme or marker; Translations: [Other specified abnormalities of plasma proteins] Onset: 4 Resolved: 4 09-12-2020 Episodic Other infections; including parasitic (20 sources) History of hepatitis C; Translations: [Personal history of other infectious and parasitic diseases] Onset: 4 Resolved: 4 09-12-2020 Episodic Other infections; including parasitic (3 sources) Personal history of other infectious and parasitic diseases; Translations: [Personal history of other infectious and parasitic diseases] Onset: 2 Resolved: 2 Episodic Other infections; including parasitic (20 sources) Infestation by bed bug; Translations: [Other specified infestations] Onset: 4 Resolved: 4 04-26-2021 Episodic Other infections; including parasitic (20 sources) Other specified infestations; Translations: [Other specified infestations] 11-15-2021 Episodic Other liver diseases (16 sources) Unspecified cirrhosis of liver; Translations: [Cirrhotic] Onset: 2 Resolved: 2 Chronic Other liver diseases (20 sources) Cirrhosis of liver; Translations: [Unspecified cirrhosis of liver] Onset: 3 09-03-2022 Chronic Other liver diseases (6 sources) Steatosis of liver; Translations: [Fatty (change of) liver, not elsewhere classified] Chronic Other liver diseases (2 sources) Fatty (change of) liver, not elsewhere classified; Translations: [Fatty liver] Onset: 2 Resolved: 2 Chronic Other liver diseases (20 sources) Elevated liver enzymes level; Translations: [Abnormal levels of other serum enzymes] Episodic Other lower respiratory disease (20 sources) Tachypnea; Translations: [Tachypnea, not elsewhere classified] 09-12-2020 Episodic Other lower respiratory disease (20 sources) Dyspnea; Translations: [Dyspnea, unspecified] Onset: 4 Resolved: 4 09-12-2020 Episodic Other lower respiratory disease (20 sources) Tachypnea, not elsewhere classified; Translations: [Tachypnea] 11-15-2021 Episodic Other male genital disorders (20 sources) Male erectile dysfunction, unspecified; Translations: [Impotence of organic origin] Onset: 3 09-03-2022 Chronic Other nervous system disorders (13 sources) Chronic pain; Translations: [Other chronic pain] Chronic Other nervous system disorders (14 sources) Inflammatory and toxic neuropathy; Translations: [Polyneuropathy, unspecified] Chronic Other nervous system disorders (2 sources) Other chronic pain; Translations: [Other chronic pain] Onset: 2 Resolved: 2 Chronic Other nervous system disorders (20 sources) Pain due to neoplastic disease; Translations: [Neoplasm related pain (acute) (chronic)] Onset: 3 Resolved: 4 04-26-2021 Chronic Other nervous system disorders (20 sources) Peripheral neuropathy due to and following chemotherapy; Translations: [Drug-induced polyneuropathy] Onset: 4 Resolved: 4 07-26-2020 Chronic Other nervous system disorders (20 sources) Neoplasm related pain (acute) (chronic); Translations: [Neoplasm related pain (acute) (chronic)] 11-15-2021 Chronic Other nervous system disorders (20 sources) Drug-induced polyneuropathy; Translations: [Polyneuropathy due to other toxic agents] 11-15-2021 Chronic Other nervous system disorders (20 sources) Brachial plexus disorder; Translations: [Brachial plexus disorders] Onset: 5 Resolved: 4 07-13-2014 Chronic Other nervous system disorders (20 sources) Neuropathy caused by chemical substance; Translations: [Drug-induced polyneuropathy] Onset: 3 Chronic Other nervous system disorders (20 sources) Neuropathy; Translations: [Polyneuropathy, unspecified] Onset: 4 Resolved: 4 05-30-2023 Chronic Other nervous system disorders (19 sources) Polyneuropathy, unspecified; Translations: [Mononeuritis of unspecified site] 05-30-2023 Chronic Other nervous system disorders (1 source) Other acute postprocedural pain; Translations: [Acute postoperative pain] Onset: 3 Episodic Other non-traumatic joint disorders (2 sources) Pain of left wrist; Translations: [Pain in left wrist] 04-25-2023 Episodic Other nutritional; endocrine; and metabolic disorders (20 sources) Hypomagnesemia; Translations: [Hypomagnesemia] Onset: 4 Resolved: 4 09-12-2020 Chronic Other nutritional; endocrine; and metabolic disorders (20 sources) Hypomagnesemia; Translations: [Disorders of magnesium metabolism] 11-15-2021 Chronic Other nutritional; endocrine; and metabolic disorders (2 sources) Obese class I; Translations: [Obesity, unspecified] Onset: 4 03-29-2023 Chronic Other nutritional; endocrine; and metabolic disorders (3 sources) Unintentional weight loss; Translations: [Unintentional weight loss] Episodic Other nutritional; endocrine; and metabolic disorders (14 sources) Body mass index 25-29 - overweight; Translations: [Body mass index (BMI) 27.0-27.9, adult] Episodic Other screening for suspected conditions (not mental disorders or infectious disease) (20 sources) Computed tomography result abnormal; Translations: [Abnormal findings on diagnostic imaging of other specified body structures] Onset: 4 Resolved: 4 06-19-2021 Chronic Other screening for suspected conditions (not mental disorders or infectious disease) (1 source) Encounter for screening for malignant neoplasm of prostate; Translations: [Screening for malignant neoplasm done] Onset: 4 Episodic Pancreatic disorders (not diabetes) (20 sources) Acute pancreatitis; Translations: [Disorder of pancreas] Onset: 3 09-03-2022 Episodic Peripheral and visceral atherosclerosis (20 sources) Peripheral vascular disease; Translations: [Peripheral vascular disease, unspecified] Onset: 3 09-03-2022 Chronic Pneumonia (except that caused by tuberculosis or sexually transmitted disease) (20 sources) Pneumonia; Translations: [Pneumonia, unspecified organism] Onset: 4 Resolved: 4 05-02-2023 Episodic Poisoning by other medications and drugs (14 sources) Mucositis following chemotherapy; Translations: [Oral mucositis (ulcerative) due to antineoplastic therapy] Episodic Pulmonary heart disease (20 sources) Pulmonary hypertension; Translations: [Pulmonary hypertension, unspecified] Onset: 3 09-03-2022 Chronic Residual codes; unclassified (2 sources) Postprocedural state finding; Translations: [Presence of other specified functional implants] 02-19-2023 Chronic Residual codes; unclassified (20 sources) Obstructive sleep apnea syndrome; Translations: [Obstructive sleep apnea (adult) (pediatric)] Onset: 3 09-03-2022 Chronic Residual codes; unclassified (14 sources) Insomnia; Translations: [Insomnia, unspecified] Episodic Residual codes; unclassified (20 sources) Family history of malignant neoplasm of pancreas; Translations: [Family history of malignant neoplasm of digestive organs] Onset: 4 Resolved: 4 09-12-2020 Episodic Residual codes; unclassified (1 source) Localized edema; Translations: [Edema of left lower extremity] Onset: 4 Episodic Residual codes; unclassified (1 source) Refused procedure - parent's wish; Translations: [Procedure and treatment not carried out because of patient's decision for other reasons] Onset: 5 Episodic Residual codes; unclassified (1 source) Family history of malignant neoplasm of digestive organs; Translations: [Family history of malignant neoplasm of gastrointestinal tract] 03-26-2024 Episodic Respiratory failure; insufficiency; arrest (adult) (2 sources) Acute respiratory failure with hypoxia; Translations: [Acute respiratory failure] Onset: 3 Episodic Septicemia (except in labor) (1 source) Sepsis; Translations: [Sepsis, unspecified organism] Onset: 4 Episodic Skin and subcutaneous tissue infections (12 sources) Abscess; Translations: [Cutaneous abscess, unspecified] Onset: 4 11-21-2023 Episodic Spondylosis; intervertebral disc disorders; other back problems (4 sources) Spasm of muscle of lower back; Translations: [Muscle spasm of back] 02-19-2023 Episodic Substance-related disorders (20 sources) Nicotine dependence, cigarettes, uncomplicated; Translations: [Smoker] Onset: 8 07-28-2014 Chronic Comment on above: Added secondary to d ocumentation in Social History. 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; Translations: [REVENUE COORDINATOR USE ORAL HYPOGLYCEMIC DX] Onset: 8 Unclassified (1 source) Acute left-sided low back pain without sciatica; Translations: [Acute left-sided low back pain without sciatica] Onset: 4 Unclassified (2 sources) History of amputation of right great toe 03-27-2024 Unclassified (1 source) Cough, unspecified; Translations: [Cough, unspecified] Onset: 4 Urinary tract infections (20 sources) Acute urinary tract infection; Translations: [Urinary tract infection, site not specified] Onset: 4 Resolved: 4 08-19-2023 Episodic Past or Other Problems Problem Classification Problem Date Documented Da te Episodic/Chronic Gastrointestinal hemorrhage (2 sources) Gastrointestinal hemorrhage; Translations: [Gastrointestinal hemorrhage, unspecified] Onset: 4 Episodic Immunizations and screening for infectious disease (1 source) Encounter for immunization Onset: 2 Resolved: 2 Episodic Mood disorders (20 sources) Mood disorders Onset: 3 09-03-2022 Other aftercare (2 sources) 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; Translations: [Type 2 diabetes mellitus with diabetic polyneuropathy, with long-term current use of insulin (HCC)] Onset: 3 Episodic Other aftercare (20 sources) Long-term current use of insulin; Translations: [FCI (current) use of insulin] Onset: 1 Resolved: 3 02-23-2023 Episodic Other connective tissue disease (2 sources) Pain in right foot Onset: 2 Resolved: 2 Episodic Other connective tissue disease (20 sources) Pain in both feet; Translations: [Pain in right foot] Onset: 3 Resolved: 4 Episodic Other connective tissue disease (20 sources) Pain of bilateral hands; Translations: [Pain in right hand] Onset: 3 Resolved: 4 Episodic Other connective tissue disease (20 sources) Recurrent falls ; Translations: [Repeated falls] Onset: 3 09-03-2022 Episodic Other gastrointestinal disorders (1 source) Other fecal abnormalities Onset: 2 Resolved: 2 Episodic Other lower respiratory disease (20 sources) Nodule of lung; Translations: [Solitary pulmonary nodule] Onset: 3 09-03-2022 Episodic Other lower respiratory disease (1 source) Shortness of breath; Translations: [Shortness of breath] Onset: 4 Episodic Other nervous system disorders (20 sources) Mononeuropathy of lower limb; Translations: [Unspecified mononeuropathy of unspecified lower limb] Onset: 3 Resolved: 3 10-23-2022 Chronic Other nervous system disorders (20 sources) Abnormal gait; Translations: [Unspecified abnormalities of gait and mobility] Onset: 9 Resolved: 4 02-05-2023 Episodic Other nutritional; endocrine; and metabolic disorders (20 sources) Body mass index 30+ - obesity; Translations: [Obesity, unspecified] Onset: 3 Resolved: 3 10-18-2022 Chronic Sprains and strains (20 sources) Sprain of medial collateral ligament of knee Onset: 5 07-13-2014 Episodic Superficial injury; contusion (20 sources) Contusion of knee; Translations: [Contusion of unspecified knee, initial encounter] Onset: 5 Resolved: 4 07-13-2014 Episodic Unclassified (1 source) Device status; Translations: [Presence of neurostimulator] Unclassified (20 sources) Onset: 4 06-21-2023 Unclassified (2 sources) Ulcer of heel, right, with fat layer exposed (CMS/HCC) 03-31-2024 NEGATED: Highlighted row has not occurred!Residual codes; unclassified (2 sources) Disease Episodic Results Test Name Value Interpretation Reference Range Facility [facility] 04-26-2024 Anion gap [Moles/Vol] 11 mmol/L Normal -16 [facility] Comment on above: Performed By: #### 2 [id number] #### [facility] [address] [place] [address] Calcium [Mass/Vol] 9.1 mg/dL Normal 8.9-11.1 [facility] Comment on above: Performed By: #### 2 [id number] #### [facility] [address] [place] [address] Chloride [Moles/Vol] 103 mmol/L Normal 101-111 [facility] Comment on above: Performed By: #### 2 [id number] #### [facility] [address] [place] [address] CO2 [Moles/Vol] 23 mmol/L Normal 21-31 [facility] Comment on above: Performed By: #### 2 [id number] #### [facility] [address] [place] [address] Creatinine [Mass/Vol] 1.3 mg/dL Normal 0.5-1.3 [facility] Comment on above: Performed By: #### 2 [id number] #### [facility] [address] [place] [address] Glucose [Mass/Vol] 381 mg/dL High 55-199 [facility] Comment on above: Performed By: #### 2 [id number] #### [facility] [address] [place] [address] Potassium [Moles/Vol] 4.3 mmol/L Normal 3.5-5.3 [facility] Comment on above: Performed By: #### 2 [id number] #### [facility] [address] [place] [address] Sodium [Moles/Vol] 133 mmol/L Low 135-145 [facility] Comment on above: Performed By: #### 2 [id number] #### [facility] [address] [place] [address] Urea nitrogen [Mass/Vol] 35 mg/dL High 5-21 [facility] Comment on above: Performed By: #### 2 [id number] #### [facility] [address] [place] [address] Urea nitrogen/Creatinine [Mass ratio] 27 No Units High 10-20 [facility] Comment on above: Performed By: #### 2 [id number] #### [facility] [address] [place] [address] CBC w/ Auto Diffon 5 Basophils/100 WBC (Bld) 0.7 % Normal 0.0-2.0 [facility] Comment on above: Performed By: #### 2 [id number] #### [facility] [address] [place] [address] Basophils/Leukocytes Auto (Bld) [Pure # fraction] 0.1 E9/L Normal 0.0-0.2 [facility] Comment on above: Performed By: #### 2 [id number] #### [facility] [address] [place] [address] Eosinophils (Bld) [#/Vol] 0.3 E9/L Normal 0.0-0.5 [facility] Comment on above: Performed By: #### 2 [id number] #### [facility] [address] [place] [address] Eosinophils/100 WBC (Bld) 3.8 % Normal 0.0-8.0 [facility] Comment on above: Performed By: #### 2 [id number] #### [facility] [address] [place] [address] Erythrocyte distribution width (RBC) [Ratio] 15.0 % High 10.9-14.2 [facility] Comment on above: Performed By: #### 2 [id number] #### [facility] [address] [place] [address] Hematocrit (Bld) [Volume fraction] 33.5 % Low 37.7-49.0 [facility] Comment on above: Performed By: #### 2 [id number] #### [facility] [address] [place] [address] Hemoglobin (Bld) [Mass/Vol] 11.5 g/dL Low 13.5-17.5 [facility] Comment on above: Performed By: #### 2 [id number] #### [facility] [address] [place] [address] Lymphocytes (Bld) [#/Vol] 1.6 E9/L Normal 1.0-4.0 [facility] Comment on above: Performed By: #### 2 [id number] #### [facility] [address] [place] [address] Lymphocytes/100 WBC (Bld) 20.2 % Normal 14.0-50.0 [facility] Comment on above: Performed By: #### 2 [id number] #### [facility] [address] [place] [address] MCH (RBC) [Entitic mass] 31.1 pg Normal 27.0-34.0 [facility] Comment on above: Performed By: #### 2 [id number] #### [facility] [address] [place] [address] MCHC (RBC) [Mass/Vol] 34.5 g/dL Normal 31.4-36.0 [facility] Comment on above: Performed By: #### 2 [id number] #### [facility] [address] [place] [address] MCV (RBC) [Entitic vol] 90.2 fL Normal 80.0-100.0 [facility] Comment on above: Performed By: #### 2 [id number] #### [facility] [address] [place] [address] Monocytes (Bld) [#/Vol] 0.6 E9/L Normal 0.2-1.0 [facility] Comment on above: Performed By: #### 2 [id number] #### [facility] [address] [place] [address] Neutrophils (Bld) [#/Vol] 5.5 E9/L Normal 2.0-7.5 [facility] Comment on above: Performed By: #### 2 [id number] #### [facility] [address] [place] [address] Neutrophils/100 WBC (Bld) 68.1 % Normal 36.0-75.0 [facility] Comment on above: Performed By: #### 2 [id number] #### [facility] [address] [place] [address] Platelet 186.0 E9/L Normal 150.0-500.0 [facility] Comment on above: Performed By: #### 2 [id number] #### [facility] [address] [place] [address] Platelet mean volume (Bld) [Entitic vol] 9.4 fL Normal 6.4-10.8 [facility] Comment on above: Performed By: #### 2 [id number] #### [facility] [address] [place] [address] RBC (Bld) [#/Vol] 3.7 E12/L Low 4.3-5.9 [facility] Comment on above: Performed By: #### 2 [id number] #### [facility] [address] [place] [address] WBC corrected for nucl RBC Auto (Bld) [#/Vol] 8.1 E9/L Normal 4.0-11.0 [facility] Comment on above: Performed By: #### 2 [id number] #### [facility] [address] [place] [address] CHEMISTRYOrdered By: SYSTEM SYSTEM on 04-26-2024 Anion gap [Moles/Vol] 11 mmol/L Normal 6 - 16 mEq/L R emisol Chem Calcium [Mass/Vol] 9.1 mg/dL Normal 8.9 - 11. 1 mg/dL [facility] Chloride [Moles/Vol] 103 mmol/L Normal 101 - 1 11 mmol/L [facility] CO2 [Moles/Vol] 23 mmol/L Normal 21 - 31 mmol/L [facility] Creatinine [Mass/Vol] 1.3 mg/dL Normal 0.5 - 1.3 mg/dL [facility] eGFR 60 mL/min/1.73 m2 Normal >=59mL/min /1 .73 m2 [facility] Glucose [Mass/Vol] 381 mg/dL High 55 - 199 mg/dL [facility] Potassium [Moles/Vol] 4.3 mmol/L Normal 3.5 - 5.3 mmol/L [facility] Sodium [Moles/Vol] 133 mmol/L Low 135 - 145 mmol/L [facility] Troponin HS 6.40 pg/mL Low 15.90 - 38.40 pg/mL [facility] Comment on above: Interpretive Data: T he 95% CI (Confidence Interval) PPV (Positive Predictive Value) for myocardial infarction in females is 38 pg/mL, in males 51 pg/mL. The results should be used in conjunction with clinical conditions of myocardial infarction. (Access High Sensitivity Troponin I Instructions For Use, Alen Josephine, October 2017) Urea nitrogen [Mass/Vol] 35 mg/dL High 5 - 21 mg/dL [facility] Urea nitrogen/Creatinine [Mass ratio] 27 mg/mg High 10 - 20 [facility] COAGULATIONOrdered By: Conchis Chavez on 04-26-2024 aPTT Coag (PPP) [Time] 55.2 s High 25.1 - 36.5 second(s) [facility] Comment on above: Interpretive Data: Karissa dyer 15 days - 4 weeks 1 - 5 months 6 - 11 months 1 - 5 years 6 - 10 years 11 - 17 years PTT Mean: 35.4 (27.6-45.6) Mean: 33.5 (24.8-40.7) Mean: 32.4 (25.1-40.7) Mean: 31.6 (24.0-39.2) Mean: 31.6 (26.9-38.7) Mean: 31.0 (24.6-38.4) Pediatric Reference ranges were obtained from a study by [place] et al. prepared from 1437 samples obtained at 7 different centers using the same coagulation reagent and instrumentation as [facility]. Currently there are no coagulation studies available worldwide for children to 14 days, and no normal ranges. Heparin therapeutic range (represented by Anti-Factor Xa activity of 0.2 - 0.4 U/mL) corresponds to PTT of 56.6 - 109.0 sec. INR Coag (PPP) [Relative time] 1.04 {INR} Invalid Interpretation Code [facility] Comment on above: Interpretive Data: I NR results are specifically intended to assess patients stabilized on long-term Anticoagulation therapy suggested INR s Less Intensive Anticoagulation 2.0 3.0 Conventional Range 3.0 4.5 PT Coag (PPP) [Time] 11.7 s Normal 9.4 - 1 2.5 second(s) [facility] Comment on above: Interpretive Data: 1 5 days - 4 weeks 1 - 5 months 6 -11 months 1-5 years 6-10 years 11 -17 years Mean: 11.2 (9.5-12.6) Mean: 11.0 (9.7-12.8) Mean: 11.0 (9.8-13.0) Mean: 11.3 (9.9-13.4) Mean: 11.7 (10.0-14.6) Mean: 11.8 (10.0 - 14.1) Pediatric Reference ranges were obtained from a study by jeri Obrien al. prepared from 1437 samples obtained at 7 different centers using the same coagulation reagent and instrumentation as [facility]. Currently there are no coagulation studies available worldwide for children to 14 days, and no normal ranges. ED Clinical Summaryon 2024 ED Clinical Summary ED Clinical Summary [place] [id number] ED Clinical Summary Person Information Name: ALTAGRACIA CONWAY [facility] Age: 68 Years : 1955 Sex: Male Language: Argentine PCP: TIKI DOCKERY DO Marital Status: Visit Id: Visit Reason: Drug withdrawal; Body aches; BP PROBLEMS Speciality: Acuity: 3 Enc Type: Emergency Med Service: Emergency Arrival: 04/26/2024 12:12:51 Discharge: 04/26/2024 13:55:41 LOS: 000 01:43 Checkin: 04/26/2024 12:12:51 Checkout: 04/26/2024 13:55:41 Dispo Type: Left Against Medical Advice EVENTS: Event Name Event Status Request Date/Time Start Date/Time Complete Date/Time Arrive Complete 04/26/2024 12:12:51 04/26/2024 12:12:51 04/26/2024 12:12:51 Document Home Meds Request 04/26/2024 12:12:51 Triage Complete 04/26/2024 12:12:51 04/26/2024 12:19:33 04/26/2024 12:19:33 Bed Assign Complete 04/26/2024 12:16:10 04/26/2024 12:16:10 04/26/2024 12:16:10 Dr Exam Complete 04/26/2024 12:16:10 04/26/2024 12:16:42 04/26/2024 12:16:42 RN Exam Complete 04/26/2024 12:16:10 04/26/2024 12:25:47 04/26/2024 12:25:47 Registration Complete 04/26/2024 12:16:42 04/26/2024 12:17:08 04/26/2024 12:17:08 Reg Complete Request 04/26/2024 12:17:08 Reg Bed Request Complete 04/26/2024 12:17:08 04/26/2024 12:17:08 04/26/2024 12:17:08 EKG Complete 04/26/2024 12:39:57 04/26/2024 12:48:27 Pending Labs Complete 04/26/2024 12:39:57 04/26/2024 13:33:23 Lab Complete 04/26/2024 12:39:57 04/26/2024 13:26:12 Patient Care Request 04/26/2024 12:39:57 X-Ray Complete 04/26/2024 12:39:57 04/26/2024 12:55:19 04/26/2024 13:11:16 Swab Complete 04/26/2024 12:39:57 04/26/2024 13:26:12 Meds Admin Complete 04/26/2024 12:39:57 04/26/2024 12:56:23 Pending Labs Complete 04/26/2024 12:54:00 04/26/2024 12:54:00 04/26/2024 13:25:32 Lab Complete 04/26/2024 12:54:00 04/26/2024 12:54:00 04/26/2024 13:25:32 Wet Read Request 04/26/2024 13:11:16 Meds Admin Request 04/26/2024 13:31:16 Discharge Complete 04/26/2024 13:55:54 04/26/2024 13:55:54 04/26/2024 13:55:54 Transfer Complete 04/26/2024 13:55:54 04/26/2024 13:55:54 04/26/2024 13:55:54 ADDRESS: [address] [id number] PHYS DOC NOTES: MEDICAL INFORMATION: Prescriptions Given: Medications to Continue with No Changes Other Medications albuterol (Ventolin HFA 90 mcg/inh Aerosol-Adpt) 1 Puffs Inhalation every 4 hours as needed Shortness of breath or wheezing. amlodipine (amLODIPine 10 mg Tab) 1 Tablets By Mouth every day. aspirin (Adult Aspirin 81 mg oral tablet, chewable) 1 Tablets Chewed every day. atorvastatin (atorvastatin 10 mg Tab) 1 Tablets By Mouth every day. busPIRone (busPIRone 30 mg oral tablet) 1 Tablets By Mouth at bedtime. ceftriaxone (cefTRIAXone 1 g intravenous injection) 1 Each Intravenous Piggyback every 24 hours. Refills: 0. cholecalciferol (Vitamin D3 2000 intl units oral Tab) 50 Microgram By Mouth every day. ciprofloxacin (Cipro 500 mg Tab) 1 Tablets By Mouth every day. Take 1 tablet the day before the procedure and 1 tablet after the procedure. Refills: 0. doxepin (doxepin 100 mg Cap) 1 Capsules By Mouth once a day (at bedtime). fluticasone-vilanterol (Breo Ellipta 100 mcg-25 mcg inhalation powder) 1 Puffs Inhalation every day. 30 dose unit. furosemide (furosemide 20 mg Tab) 1 Tablets By Mouth every day. insulin aspart (insulin aspart 100 units/mL injectable solution) 8-12 unit(s) Subcutaneous Once daily with supper. insulin aspart (insulin aspart 100 units/mL injectable solution) 8 Units Subcutaneous every day. insulin degludec (insulin degludec 100 units/mL subcutaneous solution) 30 Units Subcutaneous every day. levomilnacipran (Fetzima 40 mg oral capsule, extended release) 1.5 CAPSULES TO EQUAL 60MG DAILY. lisinopril (lisinopril 10 mg Tab) 1 Tablets By Mouth every day. lorazepam (Ativan 1 mg Tab) 1 Tablets By Mouth at bedtime. mirtazapine (mirtazapine 45 mg oral tablet) 1 Tablets By Mouth once a day (at bedtime). [facility] Pres[facility] (S.A.S.H (SALINE, ADMINISTRATION OF DRUG, SALINE, HEPARIN)) 0. per protocol after each use.. Refills: 0. ondansetron (ondansetron 4 mg Dis Tab) 1 Tablets By Mouth every 6 hours for 3 Days. Refills: 0. ondansetron (ondansetron 8 mg Dis Tab) 1 Tablets By Mouth every 8 hours as needed Nausea/Vomiting. oxycodone (oxycodone 10 mg oral tablet) 1 Tablets By Mouth 4 times a day as needed Pain. pancrelipase (Creon 36,000 units oral delayed release capsule) 2 Capsules By Mouth three times a day (with meals). pantoprazole (Pantoprazole [address] Tab) 1 Tablets By Mouth every day. pregabalin (pregabalin 150 mg Cap) 1 Capsules By Mouth 2 times a day. tamsulosin (tamsulosin 0.4 mg Cap) 1 Capsules By Mouth 2 times a day. Refills: 11. PATIENT EDUCATION INFORMATION: Instructions: Opioid Withdrawal Follow up: DIAGNOSIS: Left against medical advice; Opioid withdrawal Normal [facility] ED Note-Nursingon 04-26-2024 ED Note-Nursing ED Note-Nursing RN called [facility] to see what options we could provide for pt. [facility] stated we could go the detox way or just speaking with peer support. RN offered pt both options and pt stated he wanted to speak with his doctor prior to deciding on a treatment option Normal [facility] ED Patient Summaryon 025 ED Patient Summary ED Patient Summary [place] [id number] Patient Discharge Instructions Person Information Name: ROSENDA CONWAYJose Cruz Montiel Age: 68 Years Arrival Date: 04/26/2024 12:12:51 Discharge Diagnosis: Left against medical advice; Opioid withdrawal Primary Care Physician: TIKI DOCKERY DO Provider Information Primary Provider: Advanced Crawler Tractor Operator:Terrence Burt PA-C The exam and treatment you received in the Emergency Department were for an urgent problem and are not intended as complete care. It is important that you follow up with a doctor, nurse practitioner, or physician???s library services assistant for ongoing care. If your symptoms become worse or you do not improve as expected and you are unable to reach your usual health care provider, you should return to the Emergency Department. We are available 24 hours a day. ALTAGRACIA CONWAY has been given the following list of patient education materials, prescriptions and follow-up instructions: Follow-up Instructions: In the event that this physician does not participate in your insurance network, please consult with your insurance company to find a nearby participating provider. Patient Education Materials: Opioid Withdrawal A MESSAGE TO ALL PATIENTS REGARDING OPIOIDS PRESCRIPTION OPIOIDS: WHAT YOU NEED TO KNOW Prescription opioids can be used to help relieve aqcyzcwh-uz-wengcy pain and are often prescribed following a surgery or injury, or for certain health conditions. These medications can be an important part of the treatment but also come with serious risks. It is important to work with your healthcare provider to make sure you are getting the safest, most effective care. WHAT ARE THE RISKS AND SIDE EFFECTS OF OPIOID USE? Prescription opioids carry serious risks of addiction and overdose, especially with prolonged use. An opioid overdose, often marked by slowed breathing, can cause sudden . The use of prescription opioids can have a number of side effects as well, even when taken as directed: ??? Tolerance???meaning you might need to take more of the medication for the same pain relief ??? Physical dependence???meaning you have symptoms of withdrawal when a medication is stopped ??? Increased sensitivity to pain ??? Constipation ??? Nausea, vomiting, and dry mouth ??? Sleepiness and dizziness ??? Confusion ??? Depression ??? Low levels of testosterone that can result in lower sex drive, energy, and strength ??? Itching and sweating RISKS ARE GREATER WITH: ??? History of drug misuse, substance use disorder, or overdose ??? Mental health conditions (such as depression or anxiety) ??? Sleep apnea ??? Older age (65 years and older) ??? Avoid alcohol while taking prescription opioids. Also, unless specifically advised by your health care provider, medications to avoid include: ??? Benzodiazepines (such as Xanax or Valium) ??? Muscle relaxants (such as Soma or Flexeril) ??? Hypnotics (such as Ambien or Lunesta) ??? Other prescription opioids KNOW YOUR OPTIONS Talk to your health care provider about ways to manage your pain that don???t involve prescription opioids. Some of these options may actually work better and have fewer risks and side effects. Options may include: ??? Pain relievers such as acetaminophen, ibuprofen, and naproxen ??? Some medication that are also used for depression or seizures ??? Physical therapy and exercise ??? Cognitive behavioral therapy, a psychological, goal-directed approach, in which patients learn how to modify physical, behavioral, and emotional triggers of pain and stress. IF YOU ARE PRESCRIBED OPIOIDS FOR PAIN: ??? Never take opioids in greater amounts or more often than prescribed. ??? Follow up with your primary health care provider. o Work together to create a plan on how to manage your pain. o Talk about ways to help manage your pain that don???t involve prescription opioids. o Talk about any and all concerns and side effects. ??? Help prevent misuse and abuse o Never sell or share prescription opioids. o Never use another person???s prescription opioids. ??? Store prescription opioids in a secure place and out of reach of others (this may include visitors, children, friends, and family). ??? Safely dispose of unused prescription opioids: Find your community drug take-back program or your pharmacy mail-back program, or flush them down the toilet, following guidance from the Food and Drug Administration (www.fda.gov/Drugs/Reso urcesForYou). ??? Visit www.cdc.gov/drugoverdos e to learn about the risks of opioids abuse and overdose. ??? If you believe you may be struggling with addiction, tell your health lead caregiver and ask for guidance or call [facility]???S National Helpline at 3-693-088-IBUI. v Source: [place] Department of Health and Human (more content not included)... Normal [facility] HEMATOLOGYOrdered By: SYSTEM SYSTEM on 04-26-2024 Basophils/100 WBC (Bld) 0.7 % Normal 0.0 - 2.0 % Remisol Heme Basophils/Leukocytes Auto (Bld) [Pure # fraction] 0.1 E9/L Normal 0.0 - 0.2 E9/L Remisol Heme Eosinophils (Bld) [#/Vol] 0.3 E9/L Normal 0.0 - 0.5 E9/L Remisol Heme Eosinophils/100 WBC (Bld) 3.8 % Normal 0.0 - 8.0 % Remisol Heme Erythrocyte distribution width (RBC) [Ratio] 15.0 % High 10.9 - 14.2 % Remisol Heme Hematocrit (Bld) [Volume fraction] 33.5 % Low 37.7 - 49.0 % Remisol Heme Hemoglobin (Bld) [Mass/Vol] 11.5 g/dL Low 13.5 - 17.5 gm/dL Remisol Heme Lymphocytes (Bld) [#/Vol] 1.6 E9/L Normal 1.0 - 4.0 E9/L Remisol Heme Lymphocytes/100 WBC (Bld) 20.2 % Normal 14.0 - 50.0 % Remisol Heme MCH (RBC) [Entitic mass] 31.1 pg Normal 27.0 - 34.0 pg Remisol Heme MCHC (RBC) [Mass/Vol] 34.5 g/dL Normal 31.4 - 36.0 gm/dL Remisol Heme MCV (RBC) [Entitic vol] 90.2 fL Normal 80.0 - 100.0 fL Remisol Heme Monocytes (Bld) [#/Vol] 0.6 E9/L Normal 0.2 - 1.0 E9/L Remisol Heme Monocytes/100 WBC (Bld) 7.2 % Normal 4.0 - 14.0 % Remisol Heme Neutrophils (Bld) [#/Vol] 5.5 E9/L Normal 2.0 - 7.5 E9/L Remisol Heme Neutrophils/100 WBC (Bld) 68.1 % Normal 36.0 - 75.0 % Remisol Heme Platelet 186.0 E9/L Normal 150.0 - 500.0 E9/L Remisol Heme Platelet mean volume (Bld) [Entitic vol] 9.4 fL Normal 6.4 - 10.8 fL Remisol Heme RBC (Bld) [#/Vol] 3.7 E12/L Low 4.3 - 5.9 E12/L Remisol Heme WBC corrected for nucl RBC Auto (Bld) [#/Vol] 8.1 E9/L Normal 4.0 - 11.0 E9/L Remisol Heme Influenza A&B Agon 5 Influenzae A Ag Negative Normal Negative [facility] Comment on above: Performed By: #### 1 [id number] #### [facility] [address] [place] [address] Influenzae B Ag Negative Normal Negative [facility] Comment on above: Result Comment: Test sensitivity and specificity vary for age group, specimen type, antigen types, and prevalence of disease. Test results must be evaluated in conjunction with other clinical data available to the physician. Individuals who received nasally administered Influenza A vaccine may have positive test results up to 3 days after vaccination. Performed By: #### 1 [id number] #### [facility] [address] [place] [address] MICRO OTHER TESTSOrdered By: Iona Quiroga on 04-26-2024 Influenzae A Ag Negative (04/26/24 1:01 PM) Normal Negative [facility] Influenzae B Ag Negative 1 (04/26/24 1:01 PM) Normal Negative [facility] Comment on above: Interpretive Data: T est sensitivity and specificity vary for age group, specimen type, antigen types, and prevalence of disease. Test results must be evaluated in conjunction with other clinical data available to the physician. Individuals who received nasally administered Influenza A vaccine may have positive test results up to 3 days after vaccination. Rapid COV Int NEG Ctl Pass (04/26/24 1:01 PM) Normal [facility] Rapid COV Int POS Ctl Pass (04/26/24 1:01 PM) Normal [facility] SARS-CoV+SARS-CoV-2 (COVID-19) Ag IA.rapid Ql (Resp) Not Detected 6 (04/26/24 1:01 PM) Normal Not Detected [facility] Comment on above: Interpretive Data: T he SNAPP' Veritor System for Rapid Detection of SARS-CoV-2 is a chromatographic digital immunoassay intended for the direct and qualitative detection of SARS-CoV-2 nucleocapsid antigens in nasal swabs from individuals who are suspected of COVID-19 by their healthcare provider within the first five days of the onset of symptoms. Negative results should be treated as presumptive, do not rule out SARS-CoV-2 infection and should not be used as the sole basis for treatment or patient management decisions, including infection control decisions. Negative results should be considered in the context of a patient s recent exposures, history and the presence of clinical signs and symptoms consistent with COVID-19, and confirmed with a molecular assay, if necessary, for patient management. For in vitro diagnostic use. In the [place], only for use under an Emergency Use Authorization. In the [place], this test has not been FDA cleared or approved; this test has been authorized by FDA under an EUA for use by authorized laboratories; use by laboratories certified under the CLIA, 42 U.S.C. 263a, that meet requirements to perform moderate, high, or waived complexity tests and at the Point of Care (POC), i.e., in patient care settings operating under a CLIA Certificate of Waiver, Certificate of Compliance, or Certificate of Accreditation. This test has been authorized only for the detection of proteins from SARS-CoV-2, not for any other viruses or pathogens; and, in the [place], this test is only authorized for the duration of the declaration that circumstances exist justifying the authorization of emergency use of in vitro diagnostics for detection and/or diagnosis of the virus that causes COVID-19 under Section 564(b)(1) of the Act, 21 U.S.C. 360bbb-3(b)(1), unless the authorization is terminated or revoked sooner. PT & PTTon 04-26-2024 aPTT Coag (PPP) [Time] 55.2 second(s) High 25.1-36.5 [facility] Comment on above: Result Comment: Para meter 15 days - 4 weeks 1 - 5 months 6 - 11 months 1 - 5 years 6 - 10 years 11 - 17 years PTT Mean: 35.4 (27.6-45.6) Mean: 33.5 (24.8-40.7) Mean: 32.4 (25.1-40.7) Mean: 31.6 (24.0-39.2) Mean: 31.6 (26.9-38.7) Mean: 31.0 (24.6-38.4) Pediatric Reference ranges were obtained from a study by [place] et al. prepared from 1437 samples obtained at 7 different centers using the same coagulation reagent and instrumentation as [facility]. Currently there are no coagulation studies available worldwide for children to 14 days, and no normal ranges. Heparin therapeutic range (represented by Anti-Factor Xa activity of 0.2 - 0.4 U/mL) corresponds to PTT of 56.6 - 109.0 sec. Performed By: #### 1 [id number] #### [facility] [address] [place] [address] INR Coag (PPP) [Relative time] 1.04 {INR} Invalid Interpretation Code [facility] Comment on above: Result Comment: INR results are specifically intended to assess patients stabilized on long-term Anticoagulation therapy suggested INR???s ???Less Intensive Anticoagulation??? 2.0 ??? 3.0 Conventional Range 3.0 ??? 4.5 Performed By: #### 1 [id number] #### [facility] [address] [place] [address] PT Coag (PPP) [Time] 11.7 second(s) Normal 9.4-12.5 [facility] Comment on above: Result Comment: 15 d ays - 4 weeks 1 - 5 months 6 -11 months 1-5 years 6-10 years 11 -17 years Mean: 11.2 (9.5-12.6) Mean: 11.0 (9.7-12.8) Mean: 11.0 (9.8-13.0) Mean: 11.3 (9.9-13.4) Mean: 11.7 (10.0-14.6) Mean: 11.8 (10.0 - 14.1) Pediatric Reference ranges were obtained from a study by [place] et al. prepared from 1437 samples obtained at 7 different centers using the same coagulation reagent and instrumentation as [facility]. Currently there are no coagulation studies available worldwide for children to 14 days, and no normal ranges. Performed By: #### 1 [id number] #### [facility] [address] [place] [address] Rapid COVID Antigen ([facility])on 04-26-2024 Rapid COV Int NEG Ctl Pass Normal [facility] Comment on above: Performed By: #### 2 [id number] #### [facility] [address] [place] [address] Rapid COV Int POS Ctl Pass Normal [facility] Comment on above: Performed By: #### 2 [id number] #### [facility] [address] [place] [address] SARS-CoV+SARS-CoV-2 (COVID-19) Ag IA.rapid Ql (Resp) Not detected Normal Not Detected [facility] Comment on above: Result Comment: The BD Veritor??? System for Rapid Detection of SARS-CoV-2 is a chromatographic digital immunoassay intended for the direct and qualitative detection of SARS-CoV-2 nucleocapsid antigens in nasal swabs from individuals who are suspected of COVID-19 by their healthcare provider within the first five days of the onset of symptoms. Negative results should be treated as presumptive, do not rule out SARS-CoV-2 infection and should not be used as the sole basis for treatment or patient management decisions, including infection control decisions. Negative results should be considered in the context of a patient???s recent exposures, history and the presence of clinical signs and symptoms consistent with COVID-19, and confirmed with a molecular assay, if necessary, for patient management. For in vitro diagnostic use. In the [place], only for use under an Emergency Use Authorization. In the [place], this test has not been FDA cleared or approved; this test has been authorized by FDA under an EUA for use by authorized laboratories; use by laboratories certified under the CLIA, 42 U.S.C. ???263a, that meet requirements to perform moderate, high, or waived complexity tests and at the Point of Care (POC), i.e., in patient care settings operating under a CLIA Certificate of Waiver, Certificate of Compliance, or Certificate of Accreditation. This test has been authorized only for the detection of proteins from SARS-CoV-2, not for any other viruses or pathogens; and, in the [facility], this test is only authorized for the duration of the declaration that circumstances exist justifying the authorization of emergency use of in vitro diagnostics for detection and/or diagnosis of the virus that causes COVID-19 under Section 564(b)(1) of the Act, 21 U.S.C. ??? 360bbb-3(b)(1), unless the authorization is terminated or revoked sooner. Performed By: #### 2 [id number] #### [facility] [address] [place] [address] Troponin 0 Hr.on 04-26-2024 Troponin HS 6.40 pg/mL Low 15.90-38.40 [facility] Comment on above: Result Comment: The 95% CI (Confidence Interval) PPV (Positive Predictive Value) for myocardial infarction in females is 38 pg/mL, in males 51 pg/mL. The results should be used in conjunction with clinical conditions of myocardial infarction. (Access High Sensitivity Troponin I Instructions For Use, Alen Pitman, October 2017) Performed By: #### 1 [id number] #### [facility] [address] [place] [address] XR Chest Single Viewon 04-26 XR Chest Single View Exam Date/Time: 04/26/2024 13:11 EST Reason for Exam: Chest pain Report IMPRESSION: NO ACUTE CARDIOPULMONARY DISEASE. CLINICAL HISTORY: Chest pain COMPARISON: 02/10/2024 FINDINGS: Mediport and Mediport catheter unchanged in position with catheter tip appeared vena cava. Patient mildly rotated to right. Osseous structures intact. Cardiopericardial silhouette normal. Pulmonary vasculature normal. Lungs clear. Ordering Provider: Terrence Burt FINAL REPORT Dictated: 04/26/2024 1:20 pm Darian Zhou MD Signed (Electronic Signature): 04/26/2024 1:20 pm Signed by: Darian Zhou MD Transcribed by: MIKIE Technologist: AO Normal [facility] eGFRon 04-26-2024 eGFR 60 mL/min/1.73 m2 Normal >=59 [facility] Comment on above: Performed By: #### 1 [id number] #### [facility] [address] [place] [address] CBC w/ Auto Diffon 5 Basophils/100 WBC (Bld) 0.5 % Normal 0.0-2.0 [facility] Comment on above: Performed By: #### 2 [id number] #### [facility] [address] [place] [address] Basophils/Leukocytes Auto (Bld) [Pure # fraction] 0.1 E9/L Normal 0.0-0.2 [facility] Comment on above: Performed By: #### 2 [id number] #### [facility] [address] [place] [address] Eosinophils (Bld) [#/Vol] 0.0 E9/L Normal 0.0-0.5 [facility] Comment on above: Performed By: #### 2 [id number] #### [facility] [address] [place] [address] Eosinophils/100 WBC (Bld) 0.3 % Normal 0.0-8.0 [facility] Comment on above: Performed By: #### 2 [id number] #### [facility] [address] [place] [address] Erythrocyte distribution width (RBC) [Ratio] 14.7 % High 10.9-14.2 [facility] Comment on above: Performed By: #### 2 [id number] #### [facility] [address] [place] [address] Hematocrit (Bld) [Volume fraction] 35.8 % Low 37.7-49.0 [facility] Comment on above: Performed By: #### 2 [id number] #### [facility] [address] [place] [address] Hemoglobin (Bld) [Mass/Vol] 12.4 g/dL Low 13.5-17.5 [facility] Comment on above: Performed By: #### 2 [id number] #### [facility] [address] [place] [address] Lymphocytes (Bld) [#/Vol] 1.5 E9/L Normal 1.0-4.0 [facility] Comment on above: Performed By: #### 2 [id number] #### [facility] [address] [place] [address] Lymphocytes/100 WBC (Bld) 15.6 % Normal 14.0-50.0 [facility] Comment on above: Performed By: #### 2 [id number] #### [facility] [address] [place] [address] MCH (RBC) [Entitic mass] 31.0 pg Normal 27.0-34.0 [facility] Comment on above: Performed By: #### 2 [id number] #### [facility] [address] [place] [address] MCHC (RBC) [Mass/Vol] 34.5 g/dL Normal 31.4-36.0 [facility] Comment on above: Performed By: #### 2 [id number] #### [facility] [address] [place] [address] MCV (RBC) [Entitic vol] 89.8 fL Normal 80.0-100.0 [facility] Comment on above: Performed By: #### 2 [id number] #### [facility] [address] [place] [address] Monocytes (Bld) [#/Vol] 0.6 E9/L Normal 0.2-1.0 [facility] Comment on above: Performed By: #### 2 [id number] #### [facility] [address] [place] [address] Neutrophils (Bld) [#/Vol] 7.5 E9/L Normal 2.0-7.5 [facility] Comment on above: Performed By: #### 2 [id number] #### [facility] [address] [place] [address] Neutrophils/100 WBC (Bld) 77.0 % High 36.0-75.0 [facility] Comment on above: Performed By: #### 2 [id number] #### [facility] [address] [place] [address] Platelet mean volume (Bld) [Entitic vol] 9.3 fL Normal 6.4-10.8 [facility] Comment on above: Performed By: #### 2 [id number] #### [facility] [address] [place] [address] Platelets (Bld) [#/Vol] 217.0 E9/L Normal 150.0-500.0 [facility] Comment on above: Performed By: #### 2 [id number] #### [facility] [address] [place] [address] RBC (Bld) [#/Vol] 4.0 E12/L Low 4.3-5.9 [facility] Comment on above: Performed By: #### 2 [id number] #### [facility] [address] [place] [address] WBC corrected for nucl RBC Auto (Bld) [#/Vol] 9.7 E9/L Normal 4.0-11.0 [facility] Comment on above: Performed By: #### 2 [id number] #### [facility] [address] [place] [address] CHEMISTRYOrdered By: SYSTEM SYSTEM on 04-24-2024 Albumin [Mass/Vol] 4.6 g/dL Normal 3.3 - 5.0 gm/dL Remisol Chem Albumin/Globulin [Mass ratio] 1.4 {ratio} Normal 1.1 - 2.2 Remisol Chem ALP [Catalytic activity/Vol] 148 [iU]/d High 21 - 98 Int._Unit/L Remisol Chem ALT No additional P-5'-P [Catalytic activity/Vol] 23 [iU]/d Normal 6 - 46 Int._Unit/L Remisol Chem Anion gap [Moles/Vol] 13 mmol/L Normal 6 - 16 mEq/L R emisol Chem AST [Catalytic activity/Vol] 31 [iU]/d Normal 5 - 43 Int._Unit/L Remisol Chem Bilirubin [Mass/Vol] 0.4 mg/dL Normal 0.0 - 1 .1 mg/dL Remisol Chem Calcium [Mass/Vol] 10.3 mg/dL Normal 8.9 - 11. 1 mg/dL Remisol Chem Chloride [Moles/Vol] 102 mmol/L Normal 101 - 1 11 mmol/L Remisol Chem CO2 [Moles/Vol] 22 mmol/L Normal 21 - 31 mmol/L Remisol Chem Creatinine [Mass/Vol] 1.3 mg/dL Normal 0.5 - 1.3 mg/dL Remisol Chem eGFR 60 mL/min/1.73 m2 Normal >=59mL/min /1 .73 m2 Remisol Chem Ethanol Lvl mg/dL Normal <=11mg/dL Remisol Chem Globulin (S) [Mass/Vol] 3.3 g/dL Normal 1.4 - 4.0 gm/dL Rem[facility] Chem Glucose [Mass/Vol] 139 mg/dL Normal 55 - 199 mg/dL [facility] Lipase [Catalytic activity/Vol] 4 U/L Low 13 - 58 unit/L [facility] Chem Potassium [Moles/Vol] 5.4 mmol/L High 3.5 - 5.3 mmol/L Remisol Chem Protein [Mass/Vol] 7.9 g/dL High 6.0 - 7.8 gm/dL [facility] Chem Sodium [Moles/Vol] 132 mmol/L Low 135 - 145 mmol/L Remisol Chem Urea nitrogen [Mass/Vol] 42 mg/dL High 5 - 21 mg/dL Remisol Chem Urea nitrogen/Creatinine [Mass ratio] 32 mg/mg High 10 - 20 Rem[facility] Chem CMPon 04-24-2024 Albumin [Mass/Vol] 4.6 g/dL Normal 3.3-5.0 [facility] Comment on above: Performed By: #### 2 [id number] #### [facility] [address] [place] [address] Albumin/Globulin (S) [Mass conc ratio] 1.4 Normal 1.1-2.2 [facility] Comment on above: Performed By: #### 2 [id number] #### [facility] [address] [place] [address] ALP [Catalytic activity/Vol] 148 Int._Unit/L High 21-98 [facility] Comment on above: Performed By: #### 2 [id number] #### [facility] [address] [place] [address] ALT No additional P-5'-P [Catalytic activity/Vol] 23 Int._Unit/L Normal 6-46 [facility] Comment on above: Performed By: #### 2 [id number] #### [facility] [address] [place] [address] Anion gap [Moles/Vol] 13 mmol/L Normal 6-16 [facility] Comment on above: Performed By: #### 2 [id number] #### [facility] [address] [place] [address] AST [Catalytic activity/Vol] 31 Int._Unit/L Normal 5-43 [facility] Comment on above: Performed By: #### 2 [id number] #### [facility] [address] [place] [address] Bilirubin [Mass/Vol] 0.4 mg/dL Normal 0.0-1.1 [facility] Comment on above: Performed By: #### 2 [id number] #### [facility] [address] [place] [address] Calcium [Mass/Vol] 10.3 mg/dL Normal 8.9-11.1 [facility] Comment on above: Performed By: #### 2 [id number] #### [facility] [address] [place] [address] Chloride [Moles/Vol] 102 mmol/L Normal 101-111 [facility] Comment on above: Performed By: #### 2 [id number] #### [facility] [address] [place] [address] CO2 [Moles/Vol] 22 mmol/L Normal 21-31 [facility] Comment on above: Performed By: #### 2 [id number] #### [facility] [address] [place] [address] Creatinine [Mass/Vol] 1.3 mg/dL Normal 0.5-1.3 [facility] Comment on above: Performed By: #### 2 [id number] #### [facility] [address] [place] [address] Globulin (S) [Mass/Vol] 3.3 g/dL Normal 1.4-4.0 [facility] Comment on above: Performed By: #### 2 [id number] #### [facility] [address] [place] [address] Glucose [Mass/Vol] 139 mg/dL Normal 55-199 [facility] Comment on above: Performed By: #### 2 [id number] #### [facility] [address] [place] [address] Potassium [Moles/Vol] 5.4 mmol/L High 3.5-5.3 [facility] Comment on above: Performed By: #### 2 [id number] #### [facility] [address] [place] [address] Protein [Mass/Vol] 7.9 g/dL High 6.0-7.8 [facility] Comment on above: Performed By: #### 2 [id number] #### [facility] [address] [place] [address] Sodium [Moles/Vol] 132 mmol/L Low 135-145 [facility] Comment on above: Performed By: #### 2 [id number] #### [facility] [address] [place] [address] Urea nitrogen [Mass/Vol] 42 mg/dL High 5-21 [facility] Comment on above: Performed By: #### 2 [id number] #### [facility] [address] [place] [address] Urea nitrogen/Creatinine [Mass ratio] 32 No Units High 10-20 [facility] Comment on above: Performed By: #### 2 [id number] #### [facility] [address] [place] [address] COAGULATIONOrdered By: Lidia Landers on 04-24-2024 aPTT Coag (PPP) [Time] 35.9 s Normal 25.1 - 36.5 second(s) [facility] Comment on above: Interpretive Data: P arameter 15 days - 4 weeks 1 - 5 months 6 - 11 months 1 - 5 years 6 - 10 years 11 - 17 years PTT Mean: 35.4 (27.6-45.6) Mean: 33.5 (24.8-40.7) Mean: 32.4 (25.1-40.7) Mean: 31.6 (24.0-39.2) Mean: 31.6 (26.9-38.7) Mean: 31.0 (24.6-38.4) Pediatric Reference ranges were obtained from a study by jeri Obrien al. prepared from 1437 samples obtained at 7 different centers using the same coagulation reagent and instrumentation as [facility]. Currently there are no coagulation studies available worldwide for children to 14 days, and no normal ranges. Heparin therapeutic range (represented by Anti-Factor Xa activity of 0.2 - 0.4 U/mL) corresponds to PTT of 56.6 - 109.0 sec. INR Coag (PPP) [Relative time] 1.01 {INR} Invalid Interpretation Code [facility] Comment on above: Interpretive Data: I NR results are specifically intended to assess patients stabilized on long-term Anticoagulation therapy suggested INR s Less Intensive Anticoagulation 2.0 3.0 Conventional Range 3.0 4.5 PT Coag (PPP) [Time] 11.3 s Normal 9.4 - 1 2.5 second(s) [facility] Comment on above: Interpretive Data: 1 5 days - 4 weeks 1 - 5 months 6 -11 months 1-5 years 6-10 years 11 -17 years Mean: 11.2 (9.5-12.6) Mean: 11.0 (9.7-12.8) Mean: 11.0 (9.8-13.0) Mean: 11.3 (9.9-13.4) Mean: 11.7 (10.0-14.6) Mean: 11.8 (10.0 - 14.1) Pediatric Reference ranges were obtained from a study by [place] et al. prepared from 1437 samples obtained at 7 different centers using the same coagulation reagent and instrumentation as [facility]. Currently there are no coagulation studies available worldwide for children to 14 days, and no normal ranges. ED Clinical Summaryon 2024 ED Clinical Summary ED Clinical Summary [place] [id number] ED Clinical Summary Person Information Name: ALTAGRACIA CONWAY [facility] Age: 68 Years : 1955 Sex: Male Language: Argentine PCP: TIKI DOCKERY DO Marital Status: Visit Id: Visit Reason: Opioid withdrawal; Vomiting; withdraws Speciality: Acuity: 3 Enc Type: Emergency Med Service: Emergency Arrival: 04/24/2024 13:07:05 Discharge: 04/24/2024 16:33:37 LOS: 000 03:26 Checkin: 04/24/2024 13:07:05 Checkout: 04/24/2024 16:33:37 Dispo Type: Home (Routine DC) EVENTS: Event Name Event Status Request Date/Time Start Date/Time Complete Date/Time Arrive Complete 04/24/2024 13:07:05 04/24/2024 13:07:05 04/24/2024 13:07:05 Document Home Meds Request 04/24/2024 13:07:05 Triage Complete 04/24/2024 13:07:05 04/24/2024 13:55:16 04/24/2024 13:55:16 Pending Labs Complete 04/24/2024 13:24:59 04/24/2024 14:03:03 Lab Complete 04/24/2024 13:24:59 04/24/2024 14:03:03 Pending Labs Complete 04/24/2024 13:37:50 04/24/2024 13:37:50 04/24/2024 14:03:03 Lab Complete 04/24/2024 13:37:50 04/24/2024 13:37:50 04/24/2024 14:03:03 Bed Assign Complete 04/24/2024 14:41:14 04/24/2024 14:41:14 04/24/2024 14:41:14 Dr Exam Complete 04/24/2024 14:41:14 04/24/2024 14:41:41 04/24/2024 14:41:41 RN Exam Complete 04/24/2024 14:41:14 04/24/2024 15:31:12 04/24/2024 15:31:12 Registration Complete 04/24/2024 14:41:41 04/24/2024 15:01:14 04/24/2024 15:01:14 Meds Admin Complete 04/24/2024 14:57:51 04/24/2024 15:17:48 Reg Complete Request 04/24/2024 15:01:14 Reg Bed Request Complete 04/24/2024 15:01:14 04/24/2024 15:01:14 04/24/2024 15:01:14 Pending Labs Complete 04/24/2024 15:29:19 04/24/2024 15:29:19 04/24/2024 15:29:20 Discharge Complete 04/24/2024 15:53:18 04/24/2024 16:33:41 04/24/2024 16:33:41 Meds Admin Complete 04/24/2024 15:54:25 04/24/2024 16:11:43 Transfer Complete 04/24/2024 16:33:41 04/24/2024 16:33:41 04/24/2024 16:33:41 ADDRESS: [address] [place] [id number] PHYS DOC NOTES: MEDICAL INFORMATION: Prescriptions Given: Medications to Continue Taking That Have Changed [id number], [address], [place] [id number], [phone] START: ondansetron (ondansetron 4 mg Dis Tab) 1 Tablets By Mouth every 6 hours for 3 Days. Refills: 0. Other Medications START: ondansetron (ondansetron 8 mg Dis Tab) 1 Tablets By Mouth every 8 hours as needed Nausea/Vomiting. Medications to Continue with No Changes Other Medications albuterol (Ventolin HFA 90 mcg/inh Aerosol-Adpt) 1 Puffs Inhalation every 4 hours as needed Shortness of breath or wheezing. amlodipine (amLODIPine 10 mg Tab) 1 Tablets By Mouth every day. aspirin (Adult Aspirin 81 mg oral tablet, chewable) 1 Tablets Chewed every day. atorvastatin (atorvastatin 10 mg Tab) 1 Tablets By Mouth every day. busPIRone (busPIRone 30 mg oral tablet) 1 Tablets By Mouth at bedtime. ceftriaxone (cefTRIAXone 1 g intravenous injection) 1 Each Intravenous Piggyback every 24 hours. Refills: 0. cholecalciferol (Vitamin D3 2000 intl units oral Tab) 50 Microgram By Mouth every day. ciprofloxacin (Cipro 500 mg Tab) 1 Tablets By Mouth every day. Take 1 tablet the day before the procedure and 1 tablet after the procedure. Refills: 0. doxepin (doxepin 100 mg Cap) 1 Capsules By Mouth once a day (at bedtime). fluticasone-vilanterol (Breo Ellipta 100 mcg-25 mcg inhalation powder) 1 Puffs Inhalation every day. 30 dose unit. furosemide (furosemide 20 mg Tab) 1 Tablets By Mouth every day. insulin aspart (insulin aspart 100 units/mL injectable solution) 8-12 unit(s) Subcutaneous Once daily with supper. insulin aspart (insulin aspart 100 units/mL injectable solution) 8 Units Subcutaneous every day. insulin degludec (insulin degludec 100 units/mL subcutaneous solution) 30 Units Subcutaneous every day. levomilnacipran (Fetzima 40 mg oral capsule, extended release) 1.5 CAPSULES TO EQUAL 60MG DAILY. lisinopril (lisinopril 10 mg Tab) 1 Tablets By Mouth every day. lorazepam (Ativan 1 mg Tab) 1 Tablets By Mouth at bedtime. mirtazapine (mirtazapine 45 mg oral tablet) 1 Tablets By Mouth once a day (at bedtime). Misc Prescription (S.A.S.H (SALINE, ADMINISTRATION OF DRUG, SALINE, HEPARIN)) 0. per protocol after each use.. Refills: 0. oxycodone (oxycodone 10 mg oral tablet) 1 Tablets By Mouth 4 times a day as needed Pain. pancrelipase (Creon 36,000 units oral delayed release capsule) 2 Capsules By Mouth three times a day (with meals). pantoprazole (Pantoprazole [address] Tab) 1 Tablets By Mouth every day. pregabalin (pregabalin 150 mg Cap) 1 Capsules By Mouth 2 times a day. tamsulosin (tamsulosin 0.4 mg Cap) 1 Capsules By Mouth 2 times a day. Refills: 11. PATIENT EDUCATION INFORMATION: Instructions: Opioid Withdrawal Follow up: With: Address: When: Your pain management physician In 3 days 04/27/2024 With: Addr (more content not included)... Normal [facility] ED Note-Physicianon 04-24-19 ED Note-Physician ED Note-Physician Basic Information Time Seen: Mark Alves DO 04/24/2024 14:41 Chief Complaint pt. states he is going through withdraw from oxycodone that was prescribed to him for neuropathy. states he was out of it for 2 days and did get it filled this morning, dose at 1030. c/o vomiting. History of Present Illness 68 male presents emergency department with concerns for opiate withdrawal. Patient states that he ran out of his chronic opiate pain medications about 2 days ago and was out of these medications. He did get his medications filled today and took a total of 50 mg of oxycodone because this is what he normally takes in a given day but states he feels like he is still withdrawing. Patient states he feels very anxious and jittery he has had some nausea denies any vomiting or diarrhea. He does follow with pain management and takes approximately 50 mg of oxycodone daily. No other aggravating or relieving factors no other associated symptoms no other prior treatments or complaints. Family: Reviewed and noncontributory Social: lives at home Review of systems negative unless otherwise specified in the HPI. Physical Exam Vitals & Measurements T: 36.5 ???C(Oral) HR: 102(Peripheral) RR: 18 BP: 154/86 SpO2: 95% HT: 188 cm WT: 87.6 kg BMI: 24.78 General: The patient appears well and in no apparent distress. Patient is resting comfortably on cart. Skin: Warm, dry, no pallor noted. Head: Normocephalic, atraumatic Neck: No JVD Eye: PERRLA, EOMI ENT: Moist mucus membranes Cardiovascular: Slightly tachycardic rate regular rhythm with normal peripheral perfusion Respiratory: No respiratory distress no accessory muscle use no obvious audible wheezing Chest Wall: no deformity Musculoskeletal: normal ROM, no deformity, no swelling GI: Soft no obvious distention. No rebound or rigidity. No guarding. No tenderness. Neurological: A&O moves all extremities equal strength and symmetry Psychiatric: Cooperative and appropriate Medical Decision Making I did review the patient's OARRS report. Patient is treated here with intramuscular Phenergan and Dilaudid for symptom control. He has already filled his oxycodone and therefore is discharged home to follow-up in the outpatient setting return to ER symptoms change or worsen. Patient does feel better after the injections here. Assessment/Plan Opioid withdrawal (F11.93: Opioid use, unspecified with withdrawal) Orders: HYDROmorphone, 1 mg = 1 mL, Injection, IntraMuscular, Once, Stop date 04/24/24 14:57:00 EST, STAT, Start date 04/24/24 14:57:00 EST, 04/24/24 14:57:00 EST ondansetron, 4 mg = 1 tab(s), Oral, q6hr, X 3 day(s), # 10 tab(s), Refills(s) 0, Pharmacy: [id number], 188, cm, 04/24/24 13:55:00 EST, Height/Length Dosing, 87.6, kg, 04/24/24 13:55:00 EST, Weight Dosing promethazine, 25 mg = 1 mL, Injection, IntraMuscular, Once, Stop date 04/24/24 14:57:00 EST, STAT, Start date 04/24/24 14:57:00 EST CBC w/ Auto Diff Comprehensive Metabolic Panel eGFR Ethanol Level Lipase Level PT & PTT Medications Administered Given Dilaudid 1 mg/mL injectable solution, 1 mg, IntraMuscular [id number] [F], 25 mg, IntraMuscular Disposition Plan Discharge Prescription List Prescriptions ondansetron 4 mg Dis Tab, 4 mg= 1 tab(s), Oral, q6hr Follow-up With When Contact Information Your pain management physician In 3 days 04/27/2024 EST Additional Instructions: TIKI DOCKERY In [address], [address] [place] [address]- [facility] (1) Additional Instructions: Patient Education Opioid Withdrawal Problem List/Past Medical History Ongoing Brachial plexus neuropathy CKD (chronic kidney disease), stage III Clostridium difficile diarrhea Contusion of knee, right Depression with anxiety Diabetes Diabetes DM2 (diabetes mellitus, type 2) Hepatitis C Hepatitis C History of pancreatic cancer HTN (hypertension) Hyperlipidemia Medial collateral ligament sprain of knee Smoker Historical No qualifying data Procedure/Surgical History 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 Medications Inpatient Dilaudid 1 mg/mL injectable solution, 1 mg= 1 mL, IntraMuscular, Once Phenergan 25 mg/mL Injection, 25 mg, IntraMuscular, Once Home Adult Aspirin 81 mg oral tablet, chewable, 81 mg= 1 tab(s), Chewed, Daily amLODIPine 10 mg Tab, 10 mg= 1 tab(s), Oral, Daily Ativan 1 mg Tab, 1 mg= 1 tab(s), Oral, Bedtime atorvastatin 10 mg Tab, 10 mg= 1 tab(s), Oral, Daily Breo Ellipta 100 mcg-25 mcg inhalation powder, 1 puff(s), Inhalation, Daily busPIRone 30 mg oral tablet, 30 mg= 1 tab(s), Oral, Bedtime cefTRIAXone 1 g intravenous injection, 1 gm= 1 EA, IV Piggyback, q24hr Cipro 500 mg Tab, 500 mg= 1 tab(s), Oral, Daily Creon 36,000 units oral delayed release capsule, 2 cap(s), Oral, TIDWM doxepin 100 mg Cap, 100 mg= 1 cap(s), Oral, Once a day (at bedtime) Fe (more content not included)... Normal [facility] Comment on above: Result Comment: Elec tronically Signed By: Mark Alves DO\.br\Date and Time Signed: 04/24/24 15:57 EST ED Patient Summaryon 025 ED Patient Summary ED Patient Summary [address] [address] Patient Discharge Instructions Person Information Name: ALTAGRACIA CONWAY Age: 68 Years Arrival Date: 04/24/2024 13:07:05 Discharge Diagnosis: Opioid withdrawal Primary Care Physician: TIKI DOCKERY DO Provider Information Primary Provider: Mark Alves DO Advanced Crawler Tractor Operator:None The exam and treatment you received in the Emergency Department were for an urgent problem and are not intended as complete care. It is important that you follow up with a doctor, nurse practitioner, or physician???s library services assistant for ongoing care. If your symptoms become worse or you do not improve as expected and you are unable to reach your usual health care provider, you should return to the Emergency Department. We are available 24 hours a day. ALTAGRACIA CONWAY has been given the following list of patient education materials, prescriptions and follow-up instructions: Follow-up Instructions: With: Address: When: Your pain management physician In 3 days 04/27/2024 With: Address: When: [facility] [address] [facility] [address] [address] [facility] () In 3 days In the event that this physician does not participate in your insurance network, please consult with your insurance company to find a nearby participating provider. Patient Education Materials: Opioid Withdrawal A MESSAGE TO ALL PATIENTS REGARDING OPIOIDS PRESCRIPTION OPIOIDS: WHAT YOU NEED TO KNOW Prescription opioids can be used to help relieve buihsubt-zt-qgagoc pain and are often prescribed following a surgery or injury, or for certain health conditions. These medications can be an important part of the treatment but also come with serious risks. It is important to work with your healthcare provider to make sure you are getting the safest, most effective care. WHAT ARE THE RISKS AND SIDE EFFECTS OF OPIOID USE? Prescription opioids carry serious risks of addiction and overdose, especially with prolonged use. An opioid overdose, often marked by slowed breathing, can cause sudden . The use of prescription opioids can have a number of side effects as well, even when taken as directed: ??? Tolerance???meaning you might need to take more of the medication for the same pain relief ??? Physical dependence???meaning you have symptoms of withdrawal when a medication is stopped ??? Increased sensitivity to pain ??? Constipation ??? Nausea, vomiting, and dry mouth ??? Sleepiness and dizziness ??? Confusion ??? Depression ??? Low levels of testosterone that can result in lower sex drive, energy, and strength ??? Itching and sweating RISKS ARE GREATER WITH: ??? History of drug misuse, substance use disorder, or overdose ??? Mental health conditions (such as depression or anxiety) ??? Sleep apnea ??? Older age (65 years and older) ??? Avoid alcohol while taking prescription opioids. Also, unless specifically advised by your health care provider, medications to avoid include: ??? Benzodiazepines (such as Xanax or Valium) ??? Muscle relaxants (such as Soma or Flexeril) ??? Hypnotics (such as Ambien or Lunesta) ??? Other prescription opioids KNOW YOUR OPTIONS Talk to your health care provider about ways to manage your pain that don???t involve prescription opioids. Some of these options may actually work better and have fewer risks and side effects. Options may include: ??? Pain relievers such as acetaminophen, ibuprofen, and naproxen ??? Some medication that are also used for depression or seizures ??? Physical therapy and exercise ??? Cognitive behavioral therapy, a psychological, goal-directed approach, in which patients learn how to modify physical, behavioral, and emotional triggers of pain and stress. IF YOU ARE PRESCRIBED OPIOIDS FOR PAIN: ??? Never take opioids in greater amounts or more often than prescribed. ??? Follow up with your primary health care provider. o Work together to create a plan on how to manage your pain. o Talk about ways to help manage your pain that don???t involve prescription opioids. o Talk about any and all concerns and side effects. ??? Help prevent misuse and abuse o Never sell or share prescription opioids. o Never use another person???s prescription opioids. ??? Store prescription opioids in a secure place and out of reach of others (this may include visitors, children, friends, and family). ??? Safely dispose of unused prescription opioids: Find your community drug take-back program or your pharmacy mail-back program, or flush them down the toilet, following guidance from the Food and Drug Administration (www.fda.gov/Drugs/Reso urcesForYou). ??? Visit www.cdc.gov/drugoverdos e to learn about the risks of opioids abuse and overdose. ??? If you believe you may be struggling with (more content not included)... Normal [facility] Ethanolon 04-24-2024 Ethanol Lvl <10 Normal <=11 [facility] Comment on above: Performed By: #### 2 [id number] #### [facility] Laboratory [address] [place] [address] HEMATOLOGYOrdered By: SYSTEM SYSTEM on 04-24-2024 Basophils/100 WBC (Bld) 0.5 % Normal 0.0 - 2.0 % Remisol Heme Basophils/Leukocytes Auto (Bld) [Pure # fraction] 0.1 E9/L Normal 0.0 - 0.2 E9/L Rem[facility] Heme Eosinophils (Bld) [#/Vol] 0.0 E9/L Normal 0.0 - 0.5 E9/L [facility] Heme Eosinophils/100 WBC (Bld) 0.3 % Normal 0.0 - 8.0 % [facility]e Erythrocyte distribution width (RBC) [Ratio] 14.7 % High 10.9 - 14.2 % [facility] Hematocrit (Bld) [Volume fraction] 35.8 % Low 37.7 - 49.0 % [facility]e Hemoglobin (Bld) [Mass/Vol] 12.4 g/dL Low 13.5 - 17.5 gm/dL [facility]e Lymphocytes (Bld) [#/Vol] 1.5 E9/L Normal 1.0 - 4.0 E9/L [facility]e Lymphocytes/100 WBC (Bld) 15.6 % Normal 14.0 - 50.0 % [facility] Heme MCH (RBC) [Entitic mass] 31.0 pg Normal 27.0 - 34.0 pg Remisol Heme MCHC (RBC) [Mass/Vol] 34.5 g/dL Normal 31.4 - 36.0 gm/dL [facility] Heme MCV (RBC) [Entitic vol] 89.8 fL Normal 80.0 - 100.0 fL [facility] Monocytes (Bld) [#/Vol] 0.6 E9/L Normal 0.2 - 1.0 E9/L [facility]e Monocytes/100 WBC (Bld) 6.6 % Normal 4.0 - 14.0 % [facility] Neutrophils (Bld) [#/Vol] 7.5 E9/L Normal 2.0 - 7.5 E9/L [facility]e Neutrophils/100 WBC (Bld) 77.0 % High 36.0 - 75.0 % [facility] Platelet mean volume (Bld) [Entitic vol] 9.3 fL Normal 6.4 - 10.8 fL [facility] Platelets (Bld) [#/Vol] 217.0 E9/L Normal 150. 0 - 500.0 E9/L [facility]e RBC (Bld) [#/Vol] 4.0 E12/L Low 4.3 - 5.9 E12/L [facility] WBC corrected for nucl RBC Auto (Bld) [#/Vol] 9.7 E9/L Normal 4.0 - 11.0 E9/L [facility]e Lipase Levelon 04-24-2024 Lipase [Catalytic activity/Vol] 4 U/L Low 13-58 [facility] Comment on above: Performed By: #### 2 [id number] #### [facility] [address] [place] [address] PT & PTTon 04-24-2024 aPTT Coag (PPP) [Time] 35.9 second(s) Normal 25.1-36.5 [facility] Comment on above: Result Comment: Para meter 15 days - 4 weeks 1 - 5 months 6 - 11 months 1 - 5 years 6 - 10 years 11 - 17 years PTT Mean: 35.4 (27.6-45.6) Mean: 33.5 (24.8-40.7) Mean: 32.4 (25.1-40.7) Mean: 31.6 (24.0-39.2) Mean: 31.6 (26.9-38.7) Mean: 31.0 (24.6-38.4) Pediatric Reference ranges were obtained from a study by chucky Obrien prepared from 1437 samples obtained at 7 different centers using the same coagulation reagent and instrumentation as [facility]. Currently there are no coagulation studies available worldwide for children to 14 days, and no normal ranges. Heparin therapeutic range (represented by Anti-Factor Xa activity of 0.2 - 0.4 U/mL) corresponds to PTT of 56.6 - 109.0 sec. Performed By: #### 1 [id number] #### [facility] [address] [place] [address] INR Coag (PPP) [Relative time] 1.01 {INR} Invalid Interpretation Code [facility] Comment on above: Result Comment: INR results are specifically intended to assess patients stabilized on long-term Anticoagulation therapy suggested INR???s ???Less Intensive Anticoagulation??? 2.0 ??? 3.0 Conventional Range 3.0 ??? 4.5 Performed By: #### 1 [id number] #### [facility] [address] [place] [address] PT Coag (PPP) [Time] 11.3 second(s) Normal 9.4-12.5 [facility] Comment on above: Result Comment: 15 d ays - 4 weeks 1 - 5 months 6 -11 months 1-5 years 6-10 years 11 -17 years Mean: 11.2 (9.5-12.6) Mean: 11.0 (9.7-12.8) Mean: 11.0 (9.8-13.0) Mean: 11.3 (9.9-13.4) Mean: 11.7 (10.0-14.6) Mean: 11.8 (10.0 - 14.1) Pediatric Reference ranges were obtained from a study by [place], et al. prepared from 1437 samples obtained at 7 different centers using the same coagulation reagent and instrumentation as [facility]. Currently there are no coagulation studies available worldwide for children to 14 days, and no normal ranges. Performed By: #### 1 [id number] #### [facility] [address] [place] [address] eGFRon 04-24-2024 eGFR 60 mL/min/1.73 m2 Normal >=59 [facility] Comment on above: Performed By: #### 1 [id number] #### [facility] [address] [place] [address] MR ANKLE RIGHT WO IV CONTRAS Ton 04-21-2024 MR ANKLE RIGHT WO IV CONTRAST EXAM/TECHNIQUE: MR ANKLE RIGHT WO IV CONTRAST HISTORY: Diabetic patient with heel ulcer. Possible abscess. COMPARISON: None RESULT: Cartilage: Mild to moderate degenerative changes within the midfoot. No significant degenerative changes involving the tibiotalar or subtalar joints. Ligaments: Talofibular ligaments, tibiofibular ligaments, calcaneofibular ligament and deltoid ligament all appear to be intact. Tendons: Mild distal Achilles tendinosis, without tear. Extensor tendons appear intact. Medial flexor tendons appear intact with small amount of increased fluid in the tendon sheaths which could be physiologic or mild tenosynovitis. Possible split type tearing involving peroneus brevis, without significant tendon retraction. Peroneus longus appears intact. Joint Fluid: Physiologic quantity of joint fluid. Bone Marrow: No evidence for fracture, osteochondral lesion, osteomyelitis or other marrow replacing lesion. Plantar Aponeurosis: Areas of thickening proximally, without tear. Sinus Tarsi: Sinus tarsi is within normal limits. Muscle: Diffuse muscle atrophy. Tarsal Tunnel: Tarsal tunnel is within normal limits. Other: Diffuse subcutaneous edema. Focal area of edema signal along the plantar aspect of the calcaneus plantar to the plantar fascial origin, without distinct loculated collection, possible phlegmon or ulceration. IMPRESSION: No evidence for osteomyelitis. No distinct loculated collection. Edema signal plantar to the calcaneus as discussed. Tendon findings as discussed. ELECTRONICALLY SIGNED BY: Shin Whiteside MD Normal Not Available ALL CBC WITH AUTO DIFFon BASOPHILS ABSOLUTE AUTO 0.1 N [facility] Basophils/100 WBC (Bld) 1.4 % 0.2 - 2.0 % [facility] Eosinophils/100 WBC (Bld) 7.3 % High 0.9 - 7.0 % [facility] Erythrocyte distribution width (RBC) [Ratio] 14.9 % 11.0 - 15.0 % [facility] Hematocrit (Bld) [Volume fraction] 35.6 % Low 42.0 - 54.0 % [facility] Hemoglobin (Bld) [Mass/Vol] 11.8 g/dL Low 14.0 - 18.0 g/dL [facility] IMMATURE GRANULOCYTES ABS AUTO 0.02 [facility] Immature granulocytes/100 WBC (Bld) 0.3 % 0.0 - 0.5 % [facility] Interpretation and review of laboratory results Abnormal [facility] LYMPHOCYTES ABSOLUTE AUTO 1.9 [facility] Lymphocytes/100 WBC (Bld) 24.1 % 20.5 - 60.0 % [facility] MCH (RBC) [Entitic mass] 30.4 pg 25.9 - 34.0 pg [facility] MCHC (RBC) [Mass/Vol] 33.1 g/dL 29.9 - 35.2 g/dL [facility] MCV (RBC) [Entitic vol] 91.8 fL 80.0 - 94.0 fL [facility] MONOCYTES ABSOLUTE AUTO 0.5 N [facility] Monocytes/100 WBC (Bld) 6.5 % 1.7 - 12.0 % [facility] NEUTROPHILS ABSOLUTE AUTO 4.8 [facility] Neutrophils/100 WBC (Bld) 60.4 % 43.0 - 75.0 % [facility] Platelet mean volume (Bld) [Entitic vol] 11.4 fL 9.5 - 13.5 fL [facility] TBH EO # 0.6 [facility] TBH PLT [address] [facility] RBC 3.88 Low [facility] TB WBC 7.9 [facility] ECG 12-LEADon 04-17-[address] [address] Electrocardiograph Report Signed Patient: ALTAGRACIA CONWAY MR#: [id number] : 1955 Acct:[id number] Age/Sex: 68 / M ADM Date: 04/17/24 Loc: [facility] Attending Dr: Clarence Syed M.D. Ordering Physician: Clarence Syed M.D. 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 Signed By: 04/17/24 170 DD/ 2 TD/TT: Scaffold Builder: [facility] RadiologyCesarogmariama mauricio MD - 04/17/2024 [place] [address] Electrocardiograph Report Signed Patient: ALTAGRACIA CONWAY MR#: [id number] : 1955 Acct:[id number] Age/Sex: 68 / M ADM Date: 04/17/24 Loc: [facility] Attending Dr: Clarence Syed M.D. Ordering Physician: Clarence Syed M.D. 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 Signed By: 04/17/24 1700 DD/ 2 TD/TT: Scaffold Builder: [facility] [employer] Radiology Study observation (narrative) [facility] No Panel InformationOrdered By: Radiologist Radiology on 04-17-2024 [facility] [employer] Work Phone: XR CHEST 2Von 04-17-2024 [place] [id number] XRay Report Signed Patient: ALTAGRACIA CONWAY MR#: [id number] : 1955 Acct:[id number] Age/Sex: 68 / M ADM Date: 04/17/24 Loc: [facility] Attending Dr: Clarence Syed M.D. Ordering Physician: Clarenec Syed M.D. Date of Service: 04/17/24 Procedure(s): XR chest 2V Accession Number(s): [id number] cc: TIKI DOCKERY ; Clarence Syed M.D. [place] [address] Patient Name: ALTAGRACIA CONWAY MRN: [id number] date: 1955 Sex: M Assigned Patient Location: [facility] Current Patient Location: [facility] Accession/Order Number: [id number] Exam Date: 04/17/2024 09:17 Report Date: 04/17/2024 09:41 At the request of: CLARENCE SYED Procedure: XR chest 2V PROCEDURE: XR chest 2V DATE: 04/17/2024 9:17 AM EST COMPARISONS: None. CLINICAL INDICATION: 68 years Male Preop exam FINDINGS: The cardiomediastinal silhouette and pulmonary vasculature are within normal limits. There is slightly coarse increased markings throughout all lung campoverde consistent with chronic lung changes. There is no evidence of consolidating infiltrates, masses or nodules on these plain radiographs. There is no evidence of pleural effusion or pneumothorax. Right-sided port catheter is in place. Thoracic spinal catheter is in place. XR/XR chest 2V IMPRESSION: Findings suggest chronic lung changes. No other abnormalities identified. Electronically authenticated by: MATTHEW LOVELL Date: 04/17/2024 09:41 Dictated By: Matthew Lovell M.D. Signed By: 04/17/2443 DD/ 0 TD/TT: Scaffold Builder: [facility] Deloris Henry MD - 04/17/2024 The [place] [id number] XRay Report Signed Patient: ALTAGRACIA CONWAY MR#: [id number] : 1955 Acct:[id number] Age/Sex: 68 / M ADM Date: 04/17/24 Loc: [facility] Attending Dr: Clarence Syed M.D. Ordering Physician: Clarence Syed M.D. Date of Service: 04/17/24 Procedure(s): XR chest 2V Accession Number(s): [id number] cc: TIKI DOKCERY ; Calrence Syed M.D. The [place] [id number] Patient Name: ALTAGRACIA CONWAY MRN: [facility]:[id number] date: 1955 Sex: M Assigned Patient Location: [facility] Current Patient Location: [facility] Accession/Order Number: [id number] Exam Date: 04/17/2024 09:17 Report Date: 04/17/2024 09:41 At the request of: CLARENCE SYED Procedure: XR chest 2V PROCEDURE: XR chest 2V DATE: 04/17/2024 9:17 AM EST COMPARISONS: None. CLINICAL INDICATION: 68 years Male Preop exam FINDINGS: The cardiomediastinal silhouette and pulmonary vasculature are within normal limits. There is slightly coarse increased markings throughout all lung campoverde consistent with chronic lung changes. There is no evidence of consolidating infiltrates, masses or nodules on these plain radiographs. There is no evidence of pleural effusion or pneumothorax. Right-sided port catheter is in place. Thoracic spinal catheter is in place. XR/XR chest 2V IMPRESSION: Findings suggest chronic lung changes. No other abnormalities identified. Electronically authenticated by: MATTHEW LOVELL Date: 04/17/2024 09:41 Dictated By: Matthew Lovell M.D. Signed By: 04/17/2443 DD/ 0 TD/TT: Scaffold Builder: [facility] Radiology Study observation (narrative) [facility] Main OR Intraoperative Recor don 03-24-2024 Main OR Intraoperative Record Main OR Intraoperative Record IntraOp Document Type FTURO Summary Primary Physician: Clarence SYED MD Finalized Date/Time: 03/24/24 10:38:09 Pt. Name: ALTAGRACIA CONWAY /Sex: 1955 Male Med Rec #: [id number] Physician: Clarence SYED MD Financial #: [id number] Pt. Type: O Room/Bed: / Admit/Disch: 03/24/24 09:38:51 - Institution: Case Times FTURO Entry 1 Patient Times In Room 03/24/24 10:25:00 Out Room 03/24/24 10:37:00 Procedure Times Start 03/24/24 10:31:00 Stop 03/24/24 10:34:00 Anesthesia Times Last Modified By: Ladan Osorio 03/24/24 10:37:56 Case Attendance FTURO Entry 1 Entry 2 Entry 3 Case Attendee Clarence SYED MD, Kelsie E McClain RUSTNannette Role Performed Surgeon - Primary Counselor [employer] - Primary Scrub - Primary Time In 03/24/24 10:25:00 03/24/24 10:25:00 03/24/24 10:25:00 Time Out 03/24/24 10:37:00 03/24/24 10:37:00 03/24/24 10:37:00 Procedure CYSTOSCOPY LOCAL(.) CYSTOSCOPY LOCAL(.) CYSTOSCOPY LOCAL(.) Comments Last Modified By: Ladan Osorio Kelsie E Burgderfer, Kelsie E 03/24/24 10:37:57 03/24/24 10:37:57 03/24/24 10:37:57 Surgical Procedures FTURO Entry 1 Procedure Description Procedure CYSTOSCOPY LOCAL Modifiers . Surgeon Description CYSTOSCOPY LOCAL Primary Procedure Yes Primary Surgeon Clarence SYED MD Start 03/24/24 10:31:00 Stop 03/24/24 10:34:00 Anesthesia Type Local Surgical Service Urology Wound Class 2 - Clean-Contaminated Last Modified By: Ladan Osorio 03/24/24 10:34:23 General Case Data FTURO Pre-Care Text: Classifies surgical wound, implements aseptic technique, initiates traffic control Entry 1 Case Information OR URO 1 FT Case Level None Wound Class 2 - Clean-Contaminated Specialty Urology Preop Diagnosis BPH WITH OBSTRUCTION Postop Same As Preop Yes Postop Diagnosis BPH WITH OBSTRUCTION Outcomes Met? Yes Last Modified By: Ladan Osorio 03/24/24 10:25:05 Post-Care Text: The patient is free from signs and symptoms of infection EU IntraOp - FTURO Pre-Care Text: Implements protective measures prior to operative or invasive procedure, confirms identity before the operative or invasive procedure, verifies operative procedure, surgical site, and laterality Entry 1 EU Perioperative Protocols Procedure(s) CYSTOSCOPY LOCAL(.) Patient Identity Birthday, ID Band Verified (select at Check, Patient least 2): Participation Consents / H and P H&P, Surgery/Procedure Operative Site N/A Verified Consent Marking Verified Surgical Site Yes Laterality Verified n/a Verified Procedure Verified Yes Correct Patient Yes Position Verified Availability Equipment, Medication Time Out JOANN WU, Clarence Prince, Verified (If Participants Ladan Osorio, Applicable) Nannette Cooley CST Time Out Complete 03/24/24 10:30:00 Allergies Reviewed? Yes Allergies Reviewed Self/Patient With Body Position Supine Prep Area PENIS Prep Agents Betadine Solution Skin. Condition Intact, Canyondam, Warm, & Description N/A Dry Additional None Specimens Comment N/A Specimens Collected Vitals - EU Blood Pressure 143/81 Pulse 78 bpm Respirations 18 br/min SPO2 95 % EBL 0 I&O - EU Total Intake 0 mL Total Output 0 mL Outcomes Met? Yes Last Modified By: Ladan Osorio 03/24/24 10:30:32 Post-Care Text: The patient is free from signs and symptoms of injury caused by extraneous objects Sign Out FTURO Entry 1 Before Patient Leaves OR Nurse verbally Yes Nurse verbally n/a confirms with the confirms with the team the name of team that the procedure(s) instrument, sponge, recorded and needle counts are correct (or N/A) Nurse verbally n/a Nurse verbally Yes confirms with the confirms with the team how the team whether there specimen is labeled are any equipment (including patient problems to be name), if applicable addressed Sign Out Complete 03/24/24 10:34:00 Last Modified By: Ladan Osorio 03/24/24 10:34:20 Case Comments Finalized By: Ladan Osorio Document Signatures Signed By: Ladan Osorio 03/24/24 10:38 Ladan Osorio 03/24/24 10:38 Ladan Osorio 03/24/24 10:38 Normal [facility] Main OR Preoperative Recordo n 03-24-2024 Main OR Preoperative Record Main OR Preoperative Record Holding Area Document Type FTURO Summary Primary Physician: Clarence SYED MD Finalized Date/Time: 03/24/24 10:24:56 Pt. Name: CONWAYALTAGRACIA./Sex: 1955 Male Med Rec #: [id number] Physician: Clarence SYED MD Financial #: [id number] Pt. Type: O Room/Bed: / Admit/Disch: 03/24/24 09:38:51 - Institution: Case Times Holding FTURO Pre-Care Text: Verifies consent for planned procedure, identifies individual values and wishes concerning care, includes family members in perioperative teaching Secures patient's records' belongings, and valuables, maintains patient's dignity and privacy, and maintains patient confidentiality Entry 1 In Holding 03/24/24 10:06:00 Outcomes Met? Yes Last Modified By: Chelsey Ochoa LPN 03/24/24 10:06:38 Post-Care Text: The patient participates in decisions affecting his or her perioperative plan of care The patient's right to privacy is maintained Surgery Checklist FTURO Entry 1 Patient Birthday, ID Band Procedure History and Physical, Identification: Check, Patient Verification: Surgical Consent, With Participation Patient NPO after Midnight: n/a Personal Items: Glasses Limitations: up ad lolita Complaints of Pain: No Skin Integrity Intact, Canyondam, Warm, & Dry Vitals - EU Blood Pressure 143/81 Pulse 78 bpm Respirations 18 br/min SPO2 95 % Additional None RN Reviewed Yes Specimens Collected Last Modified By: Ladan Osorio 03/24/24 10:24:54 Finalized By: Ladan Osorio Document Signatures Signed By: Chelsey Ochoa LPN 03/24/24 10:08 Ladan Osorio 03/24/24 10:24 Normal [facility] Operative Reporton Operative Report Operative Report Patient: ALTAGRACIA CONWAY Age: 68 years Sex: Male : 1955 Associated Diagnoses: None Author: Clarence SYED MD Procedure Operative Information Details: Date/ Time: 03/24/2024 10:38:00. Pre-Op Dx: BPH w/ LUTS - N40.1, Hesitancy. Post-Op Dx: Same. Anesthesia Type: Local. Procedure: Local Cystoscopy. Complications: None. Risks/Benefits/Informed Consent: Surgical risks, benefits, details of the procedure have been explained to the patient, Full informed consent has been obtained. Intraoperative Information Prepped: Patient is brought back to the endoscopy suite, Patient is placed in supine position, Patient prepped in the usual fashion with Betadine solution, 2% Xylocaine Jelly is placed per Urethra, After waiting several minutes the Cystoscope is introduced. The Urethra is: Normal, Mild stricture in the proximal penile urethra. The Bladder is: Trabeculated (Severe (3), Open diverticuli diffusely. No bladder tumors. High bladder neck.). The ureteral orifices: Show efflux of clear urine. Devices Implanted: None. Removal: Cystoscope is removed, The patient tolerated it well. Postoperative Information Discharge: Patient is discharged home with antibiotic coverage, Follow up arranged. We will get him scheduled for a TURP and urodynamics.. Prostate reveals tight by lobar obstruction of the prostate and a high median bar Normal [facility] Comment on above: Result Comment: Elec tronically Signed By: Clarence SYED MD\.br\Date and Time Signed: 03/24/24 10:40 EST XR Spine Cervical 2 or 3 Vie wson 02-24-2024 XR Spine Cervical 2 or 3 Views Exam Date/Time: 02/24/2024 08:26 EST Reason for Exam: neck pain Report IMPRESSION: NO FRACTURE. MULTILEVEL DEGENERATIVE CHANGE CERVICAL SPINE. ANTEROLISTHESIS AT 3, AND C4. LOSS OF CERVICAL LORDOSIS MAY BE SECONDARY TO MULTILEVEL DEGENERATIVE CHANGE, MUSCLE SPASM, PATIENT POSITIONING. CERVICAL SPINE. CLINICAL HISTORY: neck pain COMPARISON: NONE. FINDINGS: Cervical vertebral bodies normal in height. 2 mm anterolisthesis C3 on C4. 1 mm anterolisthesis C4 on C5. Anterior osteophytes C5-C6. Disc space narrowing 5 6 and C6-C7. Calcification posterior longitudinal ligament at C6. No prevertebral soft tissue swelling. No fracture. No bone lesion. Mediport right mid chest with right jugular vein Mediport catheter. Ordering Provider: TIKI DOCKERY FINAL REPORT Dictated: 02/24/2024 11:20 am Darian Zhou MD Signed (Electronic Signature): 02/24/2024 11:20 am Signed by: Darian Zhou MD Transcribed by: MIKIE Technologist: MARIANO Technical Comments Radiation Dose: Ka,r in mGy = . DAP = . Normal [facility] Amylaseon 02-17-2024 Amylase [Catalytic activity/Vol] 10 U/L Low 25-157 [facility] Comment on above: Performed By: #### 2 [id number] #### [facility] [address] [place] [address] CBC w/ Auto Diffon 4 Basophils/100 WBC (Bld) 0.7 % Normal 0.0-2.0 [facility] Comment on above: Performed By: #### 2 [id number] #### [facility] [address] [place] [address] Basophils/Leukocytes Auto (Bld) [Pure # fraction] 0.1 E9/L Normal 0.0-0.2 [facility] Comment on above: Performed By: #### 2 [id number] #### [facility] [address] [place] [address] Eosinophils (Bld) [#/Vol] 0.9 E9/L High 0.0-0.5 [facility] Comment on above: Performed By: #### 2 [id number] #### [facility] [address] [place] [address] Eosinophils/100 WBC (Bld) 7.4 % Normal 0.0-8.0 [facility] Comment on above: Performed By: #### 2 [id number] #### [facility] [address] [place] [address] Erythrocyte distribution width (RBC) [Ratio] 14.4 % High 10.9-14.2 [facility] Comment on above: Performed By: #### 2 [id number] #### [facility] [address] [place] [address] Hematocrit (Bld) [Volume fraction] 37.6 % Low 37.7-49.0 [facility] Comment on above: Performed By: #### 2 [id number] #### [facility] [address] [place] [address] Hemoglobin (Bld) [Mass/Vol] 12.8 g/dL Low 13.5-17.5 [facility] Comment on above: Performed By: #### 2 [id number] #### [facility] [address] [place] [address] Lymphocytes (Bld) [#/Vol] 2.0 E9/L Normal 1.0-4.0 [facility] Comment on above: Performed By: #### 2 [id number] #### [facility] [address] [place] [address] Lymphocytes/100 WBC (Bld) 17.0 % Normal 14.0-50.0 [facility] Comment on above: Performed By: #### 2 [id number] #### [facility] [address] [place] [address] MCH (RBC) [Entitic mass] 30.6 pg Normal 27.0-34.0 [facility] Comment on above: Performed By: #### 2 [id number] #### [facility] [address] [place] [address] MCHC (RBC) [Mass/Vol] 34.0 g/dL Normal 31.4-36.0 [facility] Comment on above: Performed By: #### 2 [id number] #### [facility] [address] [place] [address] MCV (RBC) [Entitic vol] 90.1 fL Normal 80.0-100.0 [facility] Comment on above: Performed By: #### 2 [id number] #### [facility] [address] [place] [address] Monocytes (Bld) [#/Vol] 1.0 E9/L Normal 0.2-1.0 [facility] Comment on above: Performed By: #### 2 [id number] #### [facility] [address] [place] [address] Neutrophils (Bld) [#/Vol] 7.9 E9/L High 2.0-7.5 [facility] Comment on above: Performed By: #### 2 [id number] #### [facility] [address] [place] [address] Neutrophils/100 WBC (Bld) 66.2 % Normal 36.0-75.0 [facility] Comment on above: Performed By: #### 2 [id number] #### [facility] [address] [place] [address] Platelet 268.0 E9/L Normal 150.0-500.0 [facility] Comment on above: Performed By: #### 2 [id number] #### [facility] [address] [place] [address] Platelet mean volume (Bld) [Entitic vol] 8.9 fL Normal 6.4-10.8 [facility] Comment on above: Performed By: #### 2 [id number] #### [facility] [address] [place] [address] RBC (Bld) [#/Vol] 4.2 E12/L Low 4.3-5.9 [facility] Comment on above: Performed By: #### 2 [id number] #### [facility] [address] [place] [address] WBC corrected for nucl RBC Auto (Bld) [#/Vol] 11.9 E9/L High 4.0-11.0 [facility] Comment on above: Performed By: #### 2 [id number] #### [facility] [address] [place] [address] CDiff PCRon 02-17-2024 C. difficile toxin A+B Ql (Stl) YES Normal [facility] Comment on above: Performed By: #### 3 [id number] #### [facility] [address] [place] [address] CHEMISTRYOrdered By: SYSTEM SYSTEM on 02-17-2024 Albumin [Mass/Vol] 3.9 g/dL Normal 3.3 - 5.0 gm/dL Remisol Chem Albumin/Globulin [Mass ratio] 1.2 {ratio} Normal 1.1 - 2.2 Remisol Chem ALP [Catalytic activity/Vol] 96 [iU]/d Normal 21 - 98 Int._Unit/L Remisol Chem ALT No additional P-5'-P [Catalytic activity/Vol] 10 [iU]/d Normal 6 - 46 Int._Unit/L Remisol Chem Amylase [Catalytic activity/Vol] 10 U/L Low 25 - 157 unit/L Remisol Chem Anion gap [Moles/Vol] 12 mmol/L Normal 6 - 16 mEq/L R emisol Chem AST [Catalytic activity/Vol] 12 [iU]/d Normal 5 - 43 Int._Unit/L Remisol Chem Bilirubin [Mass/Vol] 0.4 mg/dL Normal 0.0 - 1 .1 mg/dL Remisol Chem Calcium [Mass/Vol] 9.9 mg/dL Normal 8.9 - 11. 1 mg/dL Rem[facility] Chem Chloride [Moles/Vol] 99 mmol/L Low 101 - 1 11 mmol/L Remisol Chem CO2 [Moles/Vol] 28 mmol/L Normal 21 - 31 mmol/L Remisol Chem Creatinine [Mass/Vol] 1.3 mg/dL Normal 0.5 - 1.3 mg/dL Remisol Chem eGFR 60 mL/min/1.73 m2 Normal >=59mL/min /1 .73 m2 Remisol Chem Globulin (S) [Mass/Vol] 3.3 g/dL Normal 1.4 - 4.0 gm/dL Rem[facility] Chem Glucose [Mass/Vol] 156 mg/dL Normal 55 - 199 mg/dL Rem[facility] Chem Lipase [Catalytic activity/Vol] 4 U/L Low 13 - 58 unit/L Remisol Chem Potassium [Moles/Vol] 4.1 mmol/L Normal 3.5 - 5.3 mmol/L Remisol Chem Protein [Mass/Vol] 7.2 g/dL Normal 6.0 - 7.8 gm/dL Remisol Chem Sodium [Moles/Vol] 135 mmol/L Normal 135 - 145 mmol/L Remisol Chem Urea nitrogen [Mass/Vol] 26 mg/dL High 5 - 21 mg/dL Remisol Chem Urea nitrogen/Creatinine [Mass ratio] 20 mg/mg Normal 10 - 20 Remisol Chem CMPon 02-17-2024 Albumin [Mass/Vol] 3.9 g/dL Normal 3.3-5.0 [facility] Comment on above: Performed By: #### 2 [id number] #### [facility] Laboratory [address] [place] [address] Albumin/Globulin (S) [Mass conc ratio] 1.2 Normal 1.1-2.2 [facility] Comment on above: Performed By: #### 2 [id number] #### [facility] [address] [place] [address] ALP [Catalytic activity/Vol] 96 Int._Unit/L Normal 21-98 [facility] Comment on above: Performed By: #### 2 [id number] #### [facility] [address] [place] [address] ALT No additional P-5'-P [Catalytic activity/Vol] 10 Int._Unit/L Normal 6-46 [facility] Comment on above: Performed By: #### 2 [id number] #### [facility] [address] [place] [address] Anion gap [Moles/Vol] 12 mmol/L Normal 6-16 [facility] Comment on above: Performed By: #### 2 [id number] #### [facility] [address] [place] [address] AST [Catalytic activity/Vol] 12 Int._Unit/L Normal 5-43 [facility] Comment on above: Performed By: #### 2 [id number] #### [facility] [address] [place] [address] Bilirubin [Mass/Vol] 0.4 mg/dL Normal 0.0-1.1 [facility] Comment on above: Performed By: #### 2 [id number] #### [facility] [address] [place] [address] Calcium [Mass/Vol] 9.9 mg/dL Normal 8.9-11.1 [facility] Comment on above: Performed By: #### 2 [id number] #### [facility] [address] [place] [address] Chloride [Moles/Vol] 99 mmol/L Low 101-111 [facility] Comment on above: Performed By: #### 2 [id number] #### [facility] [address] [place] [address] CO2 [Moles/Vol] 28 mmol/L Normal 21-31 [facility] Comment on above: Performed By: #### 2 [id number] #### [facility] [address] [place] [address] Creatinine [Mass/Vol] 1.3 mg/dL Normal 0.5-1.3 [facility] Comment on above: Performed By: #### 2 [id number] #### [facility] [address] [place] [address] Globulin (S) [Mass/Vol] 3.3 g/dL Normal 1.4-4.0 [facility] Comment on above: Performed By: #### 2 [id number] #### [facility] [address] [place] [address] Glucose [Mass/Vol] 156 mg/dL Normal 55-199 [facility] Comment on above: Performed By: #### 2 [id number] #### [facility] [address] [place] [address] Potassium [Moles/Vol] 4.1 mmol/L Normal 3.5-5.3 [facility] Comment on above: Performed By: #### 2 [id number] #### [facility] [address] [place] [address] Protein [Mass/Vol] 7.2 g/dL Normal 6.0-7.8 [facility] Comment on above: Performed By: #### 2 [id number] #### [facility] [address] [place] [address] Sodium [Moles/Vol] 135 mmol/L Normal 135-145 [facility] Comment on above: Performed By: #### 2 [id number] #### [facility] [address] [place] [address] Urea nitrogen [Mass/Vol] 26 mg/dL High 5-21 [facility] Comment on above: Performed By: #### 2 [id number] #### [facility] [address] [place] [address] Urea nitrogen/Creatinine [Mass ratio] 20 No Units Normal 10-20 [facility] Comment on above: Performed By: #### 2 [id number] #### [facility] [address] [place] [address] Enteric Panel by PCRon 02-16 C. coli+jejuni+upsaliensis DNA ANN+non-probe Ql (Stl) Not detected Normal [facility] Comment on above: Result Comment: Test ing was performed utilizing reverse lead nuclear medicine technologist (RT), polymerase chain reaction (PCR), and array hybridization to detect specific gastrointestinal microbial nucleic acid gene sequences associated with the following pathogenic bacteria and viruses:Campylobacter Group (composed of C. coli, C. jejuni, and C. danielle), Salmonella species, Shigella species (including S. dysenteriae, S. boydii, S. sonnei and S. flexneri), Vibrio Group (composed of V. cholera and V. parahaemolyticus), Yersinia enterocolitica, Norovirus GI/GII, and Rotavirus A. In addition, EPdetects Shiga toxin 1 gene and Shiga toxin 2 gene virulence markers. Shiga toxin producing E. coli (STEC) typically harbor one or both genes that encode for Shiga toxins 1 and 2. Campylobacter group, Salmonella species, Shigella species, Vibrio group, Rotavirus A, Shiga Toxin 1, Shiga Toxin 2, Norovirus GI/GII, and Yersinia enterocolitica were tested by Verigene nulcleic acid test. Performed By: #### 1 [id number] #### [facility] [address] [place] [address] E. coli stx1+stx2 genes ANN+non-probe Ql (Stl) Negative Normal [facility] Comment on above: Performed By: #### 1 [id number] #### [facility] [address] [place] [address] Enteric Panel Intrl QC Pass Normal [facility] Comment on above: Result Comment: Test ing was performed utilizing reverse lead nuclear medicine technologist (RT), polymerase chain reaction (PCR), and array hybridization to detect specific gastrointestinal microbial nucleic acid gene sequences associated with the following pathogenic bacteria and viruses:Campylobacter Group (composed of C. coli, C. jejuni, and C. danielle), Salmonella species, Shigella species (including S. dysenteriae, S. boydii, S. sonnei and S. flexneri), Vibrio Group (composed of V. cholera and V. parahaemolyticus), Yersinia enterocolitica, Norovirus GI/GII, and Rotavirus A. In addition, EPdetects Shiga toxin 1 gene and Shiga toxin 2 gene virulence markers. Shiga toxin producing E. coli (STEC) typically harbor one or both genes that encode for Shiga toxins 1 and 2. Performed By: #### 1 [id number] #### [facility] [address] [place] [address] Norovirus genogroup I+II RNA ANN+non-probe Ql (Stl) Not detected Normal [facility] Comment on above: Performed By: #### 1 [id number] #### [facility] [address] [place] [address] Rotavirus A RNA ANN+non-probe Ql (Stl) Not detected Normal [facility] Comment on above: Performed By: #### 1 [id number] #### [facility] [address] [place] [address] S. enterica+bongori DNA ANN+non-probe Ql (Stl) Not detected Normal [facility] Comment on above: Result Comment: This test result should be correlated with clinical presentations and medical history by a healthcare provider to determine its clinical significance. Performed By: #### 1 [id number] #### [facility] [address] [place] [address] Shigella species+EIEC invasion plasmid antigen H ipaH gene ANN+non-probe Ql (Stl) Not detected Normal [facility] Comment on above: Performed By: #### 1 [id number] #### [facility] [address] [place] [address] V. cholerae+parahaemolytic us+vulnificus DNA ANN+non-probe Ql (Stl) Not detected Normal [facility] Comment on above: Performed By: #### 1 [id number] #### [facility] [address] [place] [address] Y. enterocolitica DNA ANN+non-probe Ql (Stl) Not detected Normal [facility] Comment on above: Performed By: #### 1 [id number] #### [facility] [address] [place] [address] [facility] CBC W/ AUTO DIFFon 12-0 9-4 EOSINOPHILS/100 LEUKOCYTES:NFR:PT:BLD:Q N:AUTOMATED COUNT 7.4 % 0.0 - 8.0 % [facility] EOSINOPHILS:NCNC:PT:BLD :QN: 0.[address] [facility] BASOPHILS/LEUKOCYTES:NF R.DF:PT:BLD:QN:AUTOMATE D COUNT 0.1 [facility] ERYTHROCYTE MEAN CORPUSCULAR HEMOGLOBIN CONCENTRATION:MCNC:PT:R BC:QN 34 [facility] ERYTHROCYTE MEAN CORPUSCULAR HEMOGLOBIN:ENTMASS:PT:R BC:QN 30.6 pg 27.0 - 34.[address] [facility] ERYTHROCYTE MEAN CORPUSCULAR VOLUME:ENTVOL:PT:RBC:QN :AUTOMATED COUNT 90.1 fL 80.0 - 100.[address] [facility] ERYTHROCYTES:NCNC:PT:BL D:QN:AUTOMATED COUNT 4.[address] [facility] HEMOGLOBIN:MCNC:PT:BLD: QN: 12.[address] [facility] LEUKOCYTES 11.9 [facility] MONOCYTES:NCNC:PT:BLD:Q N:AUTOMATED COUNT 1 [facility] NEUTROPHILS:NCNC:PT:BLD :QN:AUTOMATED COUNT 7.9 High [facility] Interpretation and review of laboratory results Abnormal [facility] Lymphocytes/100 WBC (Bld) 17 % 14.0 - 50.0 % [facility] LYMPHOCYTES:NCNC:PT:BLD :QN: 2 [facility] Platelets (Bld) [#/Vol] 268 10*3/uL [facility] Original Ordering Provider: DO TIKI SOLORIO [facility] Fecal WBC Lactoferrinon Lactoferrin Ql (Stl) Positive Abnormal Negative [facility] Comment on above: Result Comment: The semi-quantitative detection of elevated levels of fecal lactoferrin is a marker for fecal leukocytes and an indication of intestinal inflammation. Performed By: #### 3 [id number] #### [facility] [address] [place] [address] HEMATOLOGYOrdered By: SYSTEM SYSTEM on 02-17-2024 Basophils/100 WBC (Bld) 0.7 % Normal 0.0 - 2.0 % [facility] Heme Basophils/Leukocytes Auto (Bld) [Pure # fraction] 0.1 E9/L Normal 0.0 - 0.2 E9/L [facility] Eosinophils (Bld) [#/Vol] 0.9 E9/L High 0.0 - 0.5 E9/L [facility] Eosinophils/100 WBC (Bld) 7.4 % Normal 0.0 - 8.0 % [facility] Erythrocyte distribution width (RBC) [Ratio] 14.4 % High 10.9 - 14.2 % [facility] Hematocrit (Bld) [Volume fraction] 37.6 % Low 37.7 - 49.0 % [facility] Hemoglobin (Bld) [Mass/Vol] 12.8 g/dL Low 13.5 - 17.5 gm/dL [facility] Lymphocytes (Bld) [#/Vol] 2.0 E9/L Normal 1.0 - 4.0 E9/L [facility] Lymphocytes/100 WBC (Bld) 17.0 % Normal 14.0 - 50.0 % [facility] MCH (RBC) [Entitic mass] 30.6 pg Normal 27.0 - 34.0 pg [facility] MCHC (RBC) [Mass/Vol] 34.0 g/dL Normal 31.4 - 36.0 gm/dL [facility] MCV (RBC) [Entitic vol] 90.1 fL Normal 80.0 - 100.0 fL [facility] Monocytes (Bld) [#/Vol] 1.0 E9/L Normal 0.2 - 1.0 E9/L [facility] Monocytes/100 WBC (Bld) 8.7 % Normal 4.0 - 14.0 % [facility] Neutrophils (Bld) [#/Vol] 7.9 E9/L High 2.0 - 7.5 E9/L [facility] Neutrophils/100 WBC (Bld) 66.2 % Normal 36.0 - 75.0 % [facility] Platelet 268.0 E9/L Normal 150.0 - 500.0 E9/L [facility] Platelet mean volume (Bld) [Entitic vol] 8.9 fL Normal 6.4 - 10.8 fL [facility] RBC (Bld) [#/Vol] 4.2 E12/L Low 4.3 - 5.9 E12/L [facility] WBC corrected for nucl RBC Auto (Bld) [#/Vol] 11.9 E9/L High 4.0 - 11.0 E9/L [facility] Lipase Levelon 02-17-2024 Lipase [Catalytic activity/Vol] 4 U/L Low 13-58 [facility] Comment on above: Performed By: #### 2 [id number] #### [facility] [address] [place] [address] MICRO OTHER TESTSOrdered By: Anushka Lopez on 02-17-2024 Lactoferrin Ql (Stl) Positive 1 *ABN* (02/17/24 8:30 AM) Invalid Interpretation Code Negative [facility] Comment on above: Interpretive Data: [place] semi-quantitative detection of elevated levels of fecal lactoferrin is a marker for fecal leukocytes and an indication of intestinal inflammation. eGFRon 02-17-2024 eGFR 60 mL/min/1.73 m2 Normal >=59 [facility] Comment on above: Performed By: #### 1 [id number] #### [facility] [address] [place] [address] ED Note-Physicianon 02-11-20 ED Note-Physician ED Note-Physician Basic Information Time Seen: Luz Marina DURBINDavey 02/10/2024 15:35 Chief Complaint pt to ER c/o SOB, cough, congestion, and chills since Saturday. Pt states that he has COPD, using inhaler with no relief. Pt deneis OTC meds at home. History of Present Illness 68 year old male presents to the ED for evaluation of chills, cough, diarrhea, and shortness of breath. He has a past medical history of COPD, and colitis. He states that this feels similar to his last episode of colitis which was about two months ago. He states that the current symptoms started 3 days ago and have been constant. He states that he is unable to keep much food down. He states that he has tried taking his at home inhalers but those have not helped. He denies, fever, vomiting, abdominal pain. Review of Systems A 10 point review of systems is negative except as noted above. Medical and Surgical History: Reviewed and noted Social history: Lives at home Tobacco: Denies Physical Exam Vitals & Measurements T: 36.7 ???C(Oral) HR: 93(Peripheral) RR: 24 BP: 141/82 SpO2: 100% HT: 188 cm WT: 96 kg BMI: 27.16 General: alert, no acute distress Skin: warm, dry Head: no trauma, normocephalic Neck: Trachea midline, no adenopathy, no tenderness Eye: normal conjunctiva, sclera clear ENMT: Oral mucosa moist Cardiovascular: regular rate and rhythm, normal peripheral perfusion Respiratory: Lungs rhonchi, respirations labored Chest wall: no deformity. Gastrointestinal: soft, non distended, mild tenderness in the LLQ and RLQ, no guarding. Back: No tenderness, Normal ROM, Normal alignment. Extremities: no deformity, no trauma Neurological: LOC appropriate for age, speech normal Psychiatric: cooperative, affect appropriate for age, normal judgement, normal psychiatric thoughts. Medical Decision Making Patient seen and evaluated with physician library services assistant student. I had a lljy-ml-uglm interaction with the patient. I personally performed the physical exam and medical decision making. I have verified the documentation by the student is accurately representing the information obtained. Patient presents for evaluation of cough and congestion. Has a history of COPD. Over last few days she has had sinus congestion with nonproductive cough. He has had some posttussive vomiting. He denies any acute chest pain or abdominal pain. Examination is resting comfortably. SpO2 is 100%. Does have some wheezing was treated with aerosols here with improvement. His chest x-ray shows no acute infiltrates. He is started on azithromycin and prednisone for COPD exacerbation and discharged home to follow-up with his PCP. Patient was encouraged to return to the ED if symptoms worsen or change. Assessment/Plan COPD exacerbation (J44.1: Chronic obstructive pulmonary disease with (acute) exacerbation) Orders: albuterol-ipratropium, 3 mL, Soln-Inh, Inhalation, Once, Stop date 02/10/24 15:48:00 EST, STAT, Start date 02/10/24 15:48:00 EST azithromycin, = 1 packet(s), Oral, As Directed, as directed on package labeling, X 5 day(s), # 6 tab(s), Refills(s) 0, Pharmacy: [facility] #[id number], 188, cm, 02/10/24 15:24:00 EST, Height/Length Dosing, 96, kg, 02/10/24 15:24:00 EST, Weight Dosing oxycodone, 10 mg = 2 tab(s), Tab, Oral, Once, Stop date 02/10/24 16:23:00 EST, STAT, Start date 02/10/24 16:23:00 EST, 02/10/24 16:23:00 EST predniSONE, 60 mg = 3 tab(s), Tab, Oral, Daily, Routine, Start date 02/11/24 9:00:00 EST, 02/10/24 15:48:00 EST predniSONE, 60 mg = 3 tab(s), Oral, Daily, X 7 day(s), # 21 tab(s), Refills(s) 0, Pharmacy: [facility] #[id number], 188, cm, 02/10/24 15:24:00 EST, Height/Length Dosing, 96, kg, 02/10/24 15:24:00 EST, Weight Dosing XR Chest Single View Medications Administered Given DuoNeb 2.5 mg-0.5 mg/3 mL Soln-Inh, 3 mL, Inhalation oxyCODONE 5 mg Tab, 10 mg, Oral predniSONE 20 mg Tab, 60 mg, Oral Disposition Plan Patient Discharge Condition Disposition: Discharged home Condition: Improved and stable Counseled: Patient and/or family were counseled to workup, results, treatment plan and follow-up recommendations Discharge Prescription List Prescriptions azithromycin 250 mg Tab 5-day Dose Pack (Z-Catalina), 1 packet(s), Oral, As Directed predniSONE 20 mg Tab, 60 mg= 3 tab(s), Oral, Daily Follow-up With When Contact Information TIKI DOCKERY In 3 days 02/13/[address], [facility] [address] [place] [id number]- Business (1) Additional Instructions: Patient Education Chronic Obstructive Pulmonary Disease Attestation I performed a substantive part of the MDM during the patient???s E/M visit. I personally made or approved the documented management plan and acknowledge its risk of complications. (Independent Interpretation) My (EKG/X-Ray/US/CT) interpretation as above. (Discussion) Management/test interpretation discussed with APC. This report was transcribed using voice recognition software. Every effort was made to (more content not included)... Normal [facility] Comment on above: Result Comment: Elec tronically Signed By: Mark Alves DO\.br\Date and Time Signed: 02/11/24 07:29 EST\.br\Electronically Co-Signed By: Davey Raza PA-C\.br\Date and Time Co-Signed: 02/10/24 16:53 EST ED Clinical Summaryon 2023 ED Clinical Summary ED Clinical Summary [place] [id number] ED Clinical Summary Person Information Name: ALTAGRACIA CONWAY [facility] Age: 68 Years : 1955 Sex: Male Language: Argentine PCP: TIKI DOCKERY DO Marital Status: Visit Id: Visit Reason: Chills; Sinus Pain/Congestion; Cough; Shortness of breath; FLU LIKE SYMTPOMS - SENT FROM URGENT CARE Speciality: Acuity: 2 Enc Type: Emergency Med Service: Emergency Arrival: 02/10/2024 15:06:08 Discharge: 02/10/2024 16:56:11 LOS: 000 01:50 Checkin: 02/10/2024 15:06:08 Checkout: 02/10/2024 16:56:11 Dispo Type: Home (Routine DC) EVENTS: Event Name Event Status Request Date/Time Start Date/Time Complete Date/Time Arrive Complete 02/10/2024 15:06:08 02/10/2024 15:06:08 02/10/2024 15:06:08 Document Home Meds Request 02/10/2024 15:06:08 Triage Complete 02/10/2024 15:06:08 02/10/2024 15:24:00 02/10/2024 15:24:00 Registration Complete 02/10/2024 15:09:44 02/10/2024 15:09:44 02/10/2024 15:09:44 Reg Complete Request 02/10/2024 15:09:44 Reg Bed Request Complete 02/10/2024 15:09:44 02/10/2024 15:09:44 02/10/2024 15:09:44 EKG Complete 02/10/2024 15:16:37 02/10/2024 15:20:23 Bed Assign Complete 02/10/2024 15:29:09 02/10/2024 15:29:09 02/10/2024 15:29:09 Dr Exam Complete 02/10/2024 15:29:09 02/10/2024 15:29:56 02/10/2024 15:29:56 RN Exam Complete 02/10/2024 15:29:09 02/10/2024 16:40:08 02/10/2024 16:40:08 Registration Request 02/10/2024 15:29:56 Dr Exam Complete 02/10/2024 15:35:06 02/10/2024 15:35:06 02/10/2024 15:35:06 Dr Exam Complete 02/10/2024 15:35:25 02/10/2024 15:35:25 02/10/2024 15:35:25 X-Ray Complete 02/10/2024 15:37:40 02/10/2024 15:38:01 02/10/2024 15:46:13 Dr Exam Complete 02/10/2024 15:39:52 02/10/2024 15:39:52 02/10/2024 15:39:52 Wet Read Complete 02/10/2024 15:46:13 02/10/2024 16:34:40 02/10/2024 16:34:40 Meds Admin Request 02/10/2024 15:49:00 RT Tx/ABG Request 02/10/2024 15:49:01 RT Tx/ABG Request 02/10/2024 15:49:01 Meds Admin Complete 02/10/2024 16:23:17 02/10/2024 16:32:20 Discharge Complete 02/10/2024 16:48:47 02/10/2024 16:56:17 02/10/2024 16:56:17 Transfer Complete 02/10/2024 16:56:17 02/10/2024 16:56:17 02/10/2024 16:56:17 ADDRESS: [address] [id number] PHYS DOC NOTES: MEDICAL INFORMATION: Prescriptions Given: New Medications [id number], [address] [place], [place] [id number], [phone] azithromycin (azithromycin 250 mg Tab 5-day Dose Pack (Z-Catalina)) 1 Packets By Mouth As Directed for 5 Days. as directed on package labeling. Refills: 0. predniSONE (predniSONE 20 mg Tab) 3 Tablets By Mouth every day for 7 Days. Refills: 0. Medications to Continue with No Changes Other Medications albuterol (Ventolin HFA 90 mcg/inh Aerosol-Adpt) 1 Puffs Inhalation every 4 hours as needed Shortness of breath or wheezing. amlodipine (amLODIPine 10 mg Tab) 1 Tablets By Mouth every day. aspirin (Adult Aspirin 81 mg oral tablet, chewable) 1 Tablets Chewed every day. atorvastatin (atorvastatin 10 mg Tab) 1 Tablets By Mouth every day. busPIRone (busPIRone 30 mg oral tablet) 1 Tablets By Mouth at bedtime. ceftriaxone (cefTRIAXone 1 g intravenous injection) 1 Each Intravenous Piggyback every 24 hours. Refills: 0. cholecalciferol (Vitamin D3 2000 intl units oral Tab) 50 Microgram By Mouth every day. ciprofloxacin (Cipro 500 mg Tab) 1 Tablets By Mouth every day. Take 1 tablet the day before the procedure and 1 tablet after the procedure. Refills: 0. doxepin (doxepin 100 mg Cap) 1 Capsules By Mouth once a day (at bedtime). fluticasone-vilanterol (Breo Ellipta 100 mcg-25 mcg inhalation powder) 1 Puffs Inhalation every day. 30 dose unit. furosemide (furosemide 20 mg Tab) 1 Tablets By Mouth every day. insulin aspart (insulin aspart 100 units/mL injectable solution) 8-12 unit(s) Subcutaneous Once daily with supper. insulin aspart (insulin aspart 100 units/mL injectable solution) 8 Units Subcutaneous every day. insulin degludec (insulin degludec 100 units/mL subcutaneous solution) 30 Units Subcutaneous every day. levomilnacipran (Fetzima 40 mg oral capsule, extended release) 1.5 CAPSULES TO EQUAL 60MG DAILY. lisinopril (lisinopril 10 mg Tab) 1 Tablets By Mouth every day. lorazepam (Ativan 1 mg Tab) 1 Tablets By Mouth at bedtime. mirtazapine (mirtazapine 45 mg oral tablet) 1 Tablets By Mouth once a day (at bedtime). [facility] Prescription (S.A.S.H (SALINE, ADMINISTRATION OF DRUG, SALINE, HEPARIN)) 0. per protocol after each use.. Refills: 0. ondansetron (ondansetron 8 mg Dis Tab) 1 Tablets By Mouth every 8 hours as needed Nausea/Vomiting. oxycodone (oxycodone 10 mg oral tablet) 1 Tablets By Mouth 4 times a day as needed Pain. pancrelipase (Creon 36,000 units oral delayed release capsule) 2 Capsules By Mouth three times a day (with meals). pantoprazole (Pantoprazole [address] Tab) 1 Tablets By Mouth every day. prega (more content not included)... Normal [facility] ED Patient Summaryon 024 ED Patient Summary ED Patient Summary [address] [place] [address] Patient Discharge Instructions Person Information Name: ALTAGRACIA CONWAY Age: 68 Years Arrival Date: 02/10/2024 15:06:08 Discharge Diagnosis: COPD exacerbation Primary Care Physician: TIKI DOCKERY DO Provider Information Primary Provider: Mark Alves DO Advanced Crawler Tractor Operator:Davey Raza PA-C The exam and treatment you received in the Emergency Department were for an urgent problem and are not intended as complete care. It is important that you follow up with a doctor, nurse practitioner, or physician???s library services assistant for ongoing care. If your symptoms become worse or you do not improve as expected and you are unable to reach your usual health care provider, you should return to the Emergency Department. We are available 24 hours a day. ALTAGRACIA CONWAY has been given the following list of patient education materials, prescriptions and follow-up instructions: Follow-up Instructions: With: Address: When: TIKI DOCKERY [address] [facility], [address] [address] [facility] (1) In 3 days 02/13/2024 In the event that this physician does not participate in your insurance network, please consult with your insurance company to find a nearby participating provider. Patient Education Materials: Chronic Obstructive Pulmonary Disease A MESSAGE TO ALL PATIENTS REGARDING OPIOIDS PRESCRIPTION OPIOIDS: WHAT YOU NEED TO KNOW Prescription opioids can be used to help relieve spvhaqvp-ye-pspczz pain and are often prescribed following a surgery or injury, or for certain health conditions. These medications can be an important part of the treatment but also come with serious risks. It is important to work with your healthcare provider to make sure you are getting the safest, most effective care. WHAT ARE THE RISKS AND SIDE EFFECTS OF OPIOID USE? Prescription opioids carry serious risks of addiction and overdose, especially with prolonged use. An opioid overdose, often marked by slowed breathing, can cause sudden . The use of prescription opioids can have a number of side effects as well, even when taken as directed: ??? Tolerance???meaning you might need to take more of the medication for the same pain relief ??? Physical dependence???meaning you have symptoms of withdrawal when a medication is stopped ??? Increased sensitivity to pain ??? Constipation ??? Nausea, vomiting, and dry mouth ??? Sleepiness and dizziness ??? Confusion ??? Depression ??? Low levels of testosterone that can result in lower sex drive, energy, and strength ??? Itching and sweating RISKS ARE GREATER WITH: ??? History of drug misuse, substance use disorder, or overdose ??? Mental health conditions (such as depression or anxiety) ??? Sleep apnea ??? Older age (65 years and older) ??? Avoid alcohol while taking prescription opioids. Also, unless specifically advised by your health care provider, medications to avoid include: ??? Benzodiazepines (such as Xanax or Valium) ??? Muscle relaxants (such as Soma or Flexeril) ??? Hypnotics (such as Ambien or Lunesta) ??? Other prescription opioids KNOW YOUR OPTIONS Talk to your health care provider about ways to manage your pain that don???t involve prescription opioids. Some of these options may actually work better and have fewer risks and side effects. Options may include: ??? Pain relievers such as acetaminophen, ibuprofen, and naproxen ??? Some medication that are also used for depression or seizures ??? Physical therapy and exercise ??? Cognitive behavioral therapy, a psychological, goal-directed approach, in which patients learn how to modify physical, behavioral, and emotional triggers of pain and stress. IF YOU ARE PRESCRIBED OPIOIDS FOR PAIN: ??? Never take opioids in greater amounts or more often than prescribed. ??? Follow up with your primary health care provider. o Work together to create a plan on how to manage your pain. o Talk about ways to help manage your pain that don???t involve prescription opioids. o Talk about any and all concerns and side effects. ??? Help prevent misuse and abuse o Never sell or share prescription opioids. o Never use another person???s prescription opioids. ??? Store prescription opioids in a secure place and out of reach of others (this may include visitors, children, friends, and family). ??? Safely dispose of unused prescription opioids: Find your community drug take-back program or your pharmacy mail-back program, or flush them down the toilet, following guidance from the Food and Drug Administration (www.fda.gov/Drugs/Reso urcesForYou). ??? Visit www.cdc.gov/drugoverdos e to learn about the risks of opioids abuse and overdose. ??? If you believe you may be struggling with addiction, tell your health (more content not included)... Normal [facility] Family Medicine Office/Shai c Noteon 02-10-2024 Family Medicine Office/Clinic Note Family Medicine Office/Clinic Note History of Present Illness I have reviewed and verified the staff HPI to be accurate for this encounter. Portions of this record have been created with voice recognition software. Occasional wrong-word or ???[id number]-f-[id number]??? substitutions may have occurred due to the inherent limitations of voice recognition software. 68 yo male with history of chronic kidney disease stage III, depression with anxiety, diabetes, hepatitis C, hypertension, hyperlipidemia, pancreatic cancer, Whipple procedure current smoker presents to [facility] today with chief complaint of diarrhea, loss of appetite, chills. Patient is present with his granddaughter today whom he states he lives with. He notes that approximately 2 months ago he had his first case of colitis. States he was admitted to the hospital at that time for approximately 7 days and then had to come to the hospital for almost 11 days after that for IV antibiotic infusion. Patient states he has history of pancreatic cancer when she had a Whipple procedure completed approximately 3 to 4 years ago. Denies any other abdominal surgeries. He states ever since being released in the hospital he has never really had a firm bowel movement. However states on Saturday he started with some increasing episodes of diarrhea. Denies any black or tarry stool or blood in the stool. Denies nausea or vomiting. He states no appetite in which he has not ate anything in approximately 2 days. He states he feels very weak and fatigued and the staff was concerned as he almost fell in our waiting area due to not feeling well. Patient is tearful in regards to not feeling well. Again denies any vomiting episodes. He denies any dysuria hematuria urinary urgency or frequency. He denies any fever or chills with the symptoms. Denies any cough runny stuffy nose or cold-like symptoms. He has no other concerns at this time. Review of Systems ROS negative unless otherwise stated in HPI. Physical Exam General: Pleasant elderly male, present with granddaughter today, tearful, otherwise no acute distress Eyes: Bilateral conjunctiva within normal limits no injection Ears: not assessed Nose: not addressed Mouth: not assessed Neck: not assessed Lungs: Lung sounds are clear bilaterally. No wheezing rhonchi or crackles on exam. Cardio: S1, S2, regular rhythm. No murmurs gallops or rubs. Abdomen: Bowel sounds are present x 4 quadrants. Abdomen is thin, soft, nontender, nondistended., No rigidity rebound or guarding on exam. Musculoskeletal: not assessed Extremity: Patient is sitting upright in a wheelchair. It and he felt unsteady on his feet. Neurologic: not assessed Skin: not assessed Mental Status: Alert and oriented x3. Normal mood and affect Assessment/Plan I spoke with both patient and granddaughter following a brief triage staff came to get me prior to evaluating patient. Noting that he was weak and almost fell over in her waiting area. I discussed with patient that given his most recent issues with colitis, increase in diarrhea over the past 3 days as well as generalized fatigue and weakness that he would be better suited to be evaluated in the emergency department. I spoke with patient's granddaughter as well in which she is comfortable in transporting him there. We will we will patient out in a wheelchair to be taken by private car transport to the emergency department for further evaluation patient and granddaughter both agree and understand plan. 1. Weakness (R53.1: Weakness) ER for further evaluation 2. Diarrhea (R19.7: Diarrhea, unspecified) ER for further evaluation Follow-up With When Contact Information TIKI DOCKERY DO Additional Instructions: Patient Education Diarrhea, Adult Weakness Problem List/Past Medical History Ongoing Brachial plexus neuropathy CKD (chronic kidney disease), stage III Clostridium difficile diarrhea Contusion of knee, right Depression with anxiety Diabetes Diabetes DM2 (diabetes mellitus, type 2) Hepatitis C Hepatitis C History of pancreatic cancer HTN (hypertension) Hyperlipidemia Medial collateral ligament sprain of knee Smoker Historical No qualifying data Procedure/Surgical History 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 Medications Adult Aspirin 81 mg oral tablet, chewable, 81 mg= 1 tab(s), Chewed, Daily amLODIPine 10 mg Tab, 10 mg= 1 tab(s), Oral, Daily Ativan 1 mg Tab, 1 mg= 1 tab(s), Oral, Bedtime atorvastatin 10 mg Tab, 10 mg= 1 tab(s), Oral, Daily Breo Ellipta 100 mcg-25 mcg inhalation powder, 1 puff(s), Inhalation, Daily busPIRone 30 mg oral tablet, 30 mg= 1 tab(s), Oral, Bedtime cefTRIAXone 1 g intravenous injection, 1 gm= 1 EA, IV Piggyback, q24hr Cipro 500 mg Tab, 500 mg= 1 tab(s), Oral, Daily Creon 36,000 units oral delayed release capsule, 2 cap(s), Oral, TIDWM doxepin 100 mg Cap, 100 mg= 1 cap(s), Oral, Once a day (at bedtime) Fetz (more content not included)... Normal [facility] Comment on above: Result Comment: Elec tronically Signed By: Holland DURBIN, Jadon Obrien\.br\Date and Time Signed: 02/10/24 14:56 EST XR Chest Single Viewon 02-09 XR Chest Single View Exam Date/Time: 02/10/2024 15:46 EST Reason for Exam: Cough Report IMPRESSION: No acute findings by portable radiography. EXAMINATION/TECHNIQUE: XR Chest Single View HISTORY: Cough. COMPARISON: 10/05/2023. RESULT: No distinct focal consolidation. No large pleural effusion. No pneumothorax. Stable cardiomediastinal silhouette. No acute osseous findings. Right-sided port catheter, grossly unchanged. Ordering Provider: Davey Raza FINAL REPORT Dictated: 02/10/2024 4:57 pm Shin Whiteside MD Signed (Electronic Signature): 02/10/2024 4:57 pm Signed by: Shin Whiteside MD Transcribed by: MIKIE Technologist: SOPHIE Technical Comments Radiation Dose: Ka,r in mGy = na DAP = na Normal [facility] Lab Miscellaneous-LCon 01-24 Lab Miscellaneous COMMENT Invalid Interpretation Code [facility] Comment on above: Result Comment: Test Ordered: [id number] C difficile Toxins A+B, EIA C difficile Toxins A+B, EIA Positive [A ] CB Reference Range: Negative Performed at: [facility] [address] [id number] PhD Miriam Sam Performed By: #### 1 [id number] #### [facility] [address] [place] [address] C. diff by PCRon 01-24-2024 Clostridium difficile by PCR Positive Abnormal Negative [facility] Comment on above: Order Comment: Order added by Discern Expert. Result Comment: Resu lts Called To Beti Randle( office) By And Read Back For Confirmation On 01/24/2024 13:54:22 EST. This test result should be correlated with clinical presentations and medical history by a healthcare provider to determine its clinical significance. Performed By: #### 4 [id number] #### [facility] [address] [place] [address] CDiff PCRon 01-24-2024 C. difficile toxin A+B Ql (Stl) No, PCR to follow Normal [facility] Comment on above: Performed By: #### 3 [id number] #### [facility] [address] [place] [address] Lab Miscellaneous-LCon 01-23 Source stool Invalid Interpretation Code [facility] Comment on above: Performed By: #### 1 [id number] #### [facility] [address] [place] [address] Test Code 412254 Invalid Interpretation Code [facility] Comment on above: Performed By: #### 1 [id number] #### [facility] [address] [place] [address] Test Name Cdiff Toxin EIA Invalid Interpretation Code [facility] Comment on above: Performed By: #### 1 [id number] #### [facility] [address] [place] [address] Reference Laboratory Testing Ordered By: Nissa Santo on 01-24-2024 Test Code [id number] Invalid Interpretation Code [facility] Test Name Cdiff Toxin EIA Invalid Interpretation Code [facility] CBC w/ Auto Diffon 4 Basophils/100 WBC (Bld) 0.8 % Normal 0.0-2.0 [facility] Comment on above: Performed By: #### 2 [id number] #### [facility] [address] [place] [address] Basophils/Leukocytes Auto (Bld) [Pure # fraction] 0.1 E9/L Normal 0.0-0.2 [facility] Comment on above: Performed By: #### 2 [id number] #### [facility] [address] [place] [address] Eosinophils (Bld) [#/Vol] 0.7 E9/L High 0.0-0.5 [facility] Comment on above: Performed By: #### 2 [id number] #### [facility] [address] [place] [address] Eosinophils/100 WBC (Bld) 7.2 % Normal 0.0-8.0 [facility] Comment on above: Performed By: #### 2 [id number] #### [facility] [address] [place] [address] Erythrocyte distribution width (RBC) [Ratio] 14.0 % Normal 10.9-14.2 [facility] Comment on above: Performed By: #### 2 [id number] #### [facility] [address] [place] [address] Hematocrit (Bld) [Volume fraction] 38.7 % Normal 37.7-49.0 [facility] Comment on above: Performed By: #### 2 [id number] #### [facility] [address] [place] [address] Hemoglobin (Bld) [Mass/Vol] 13.3 g/dL Low 13.5-17.5 [facility] Comment on above: Performed By: #### 2 [id number] #### [facility] [address] [place] [address] Lymphocytes (Bld) [#/Vol] 2.0 E9/L Normal 1.0-4.0 [facility] Comment on above: Performed By: #### 2 [id number] #### [facility] [address] [place] [address] Lymphocytes/100 WBC (Bld) 20.2 % Normal 14.0-50.0 [facility] Comment on above: Performed By: #### 2 [id number] #### [facility] [address] [place] [address] MCH (RBC) [Entitic mass] 30.9 pg Normal 27.0-34.0 [facility] Comment on above: Performed By: #### 2 [id number] #### [facility] [address] [place] [address] MCHC (RBC) [Mass/Vol] 34.3 g/dL Normal 31.4-36.0 [facility] Comment on above: Performed By: #### 2 [id number] #### [facility] [address] [place] [address] MCV (RBC) [Entitic vol] 90.0 fL Normal 80.0-100.0 [facility] Comment on above: Performed By: #### 2 [id number] #### [facility] [address] [place] [address] Monocytes (Bld) [#/Vol] 0.7 E9/L Normal 0.2-1.0 [facility] Comment on above: Performed By: #### 2 [id number] #### [facility] [address] [place] [address] Neutrophils (Bld) [#/Vol] 6.5 E9/L Normal 2.0-7.5 [facility] Comment on above: Performed By: #### 2 [id number] #### [facility] [address] [place] [address] Neutrophils/100 WBC (Bld) 65.2 % Normal 36.0-75.0 [facility] Comment on above: Performed By: #### 2 [id number] #### [facility] [address] [place] [address] Platelet mean volume (Bld) [Entitic vol] 10.4 fL Normal 6.4-10.8 [facility] Comment on above: Performed By: #### 2 [id number] #### [facility] [address] [place] [address] Platelets (Bld) [#/Vol] 192.0 E9/L Normal 150.0-500.0 [facility] Comment on above: Performed By: #### 2 [id number] #### [facility] [address] [place] [address] RBC (Bld) [#/Vol] 4.3 E12/L Normal 4.3-5.9 [facility] Comment on above: Performed By: #### 2 [id number] #### [facility] [address] [place] [address] WBC corrected for nucl RBC Auto (Bld) [#/Vol] 10.0 E9/L Normal 4.0-11.0 [facility] Comment on above: Performed By: #### 2 [id number] #### [facility] [address] [place] [address] CHEMISTRYOrdered By: SYSTEM SYSTEM on 01-23-2024 Albumin [Mass/Vol] 4.1 g/dL Normal 3.3 - 5.0 gm/dL [facility] Albumin/Globulin [Mass ratio] 1.4 {ratio} Normal 1.1 - 2.2 [facility] ALP [Catalytic activity/Vol] 118 [iU]/d High 21 - 98 Int._Unit/L [facility] ALT No additional P-5'-P [Catalytic activity/Vol] 19 [iU]/d Normal 6 - 46 Int._Unit/L [facility] Anion gap [Moles/Vol] 11 mmol/L Normal 6 - 16 mEq/L R emisol Chem AST [Catalytic activity/Vol] 28 [iU]/d Normal 5 - 43 Int._Unit/L [facility] Bilirubin [Mass/Vol] 0.4 mg/dL Normal 0.0 - 1 .1 mg/dL [facility] Calcium [Mass/Vol] 9.4 mg/dL Normal 8.9 - 11. 1 mg/dL [facility] Chloride [Moles/Vol] 100 mmol/L Low 101 - 1 11 mmol/L [facility] CO2 [Moles/Vol] 27 mmol/L Normal 21 - 31 mmol/L [facility] Creatinine [Mass/Vol] 1.5 mg/dL High 0.5 - 1.3 mg/dL [facility] eGFR 50 mL/min/1.73 m2 Low >=59mL/min /1 .73 m2 [facility] Free PSA [Mass/Vol] 0.7 ng/mL Invalid Interpretation Code [facility] Comment on above: Interpretive Data: T he concentration of free PSA and total PSA determined with assays from different manufacturers can vary due to differences in assay methods and specificity. Values obtained with different cardiac nurse's assays cannot be used interchangeably. The methodology used to obtain this result was chemiluminescence using Alen Pitman's Access Hybritech PSA reagent and Access Hybritech free PSA reagent. Free PSA/Total PSA [Mass fraction] 20.0 % Low >=25.0% [facility] Globulin (S) [Mass/Vol] 3.0 g/dL Normal 1.4 - 4.0 gm/dL [facility] Glucose [Mass/Vol] 275 mg/dL High 55 - 199 mg/dL [facility] Potassium [Moles/Vol] 4.8 mmol/L Normal 3.5 - 5.3 mmol/L [facility] Prostate specific Ag [Mass/Vol] 3.5 ng/mL Normal 0.1 - 3.5 ng/mL [facility] Comment on above: Interpretive Data: T he concentration of PSA determined by different manufacturers can vary due to differences in assay methods and reagent specificity. Values obtained from different assay methods cannot be used interchangeably. The methodology used for this result was chemiluminescence using Alen Josephine's Access Hybritech PSA reagent. Protein [Mass/Vol] 7.1 g/dL Normal 6.0 - 7.8 gm/dL [facility] Sodium [Moles/Vol] 133 mmol/L Low 135 - 145 mmol/L [facility] Urea nitrogen [Mass/Vol] 40 mg/dL High 5 - 21 mg/dL [facility] Urea nitrogen/Creatinine [Mass ratio] 27 mg/mg High 10 - 20 [facility] CMPon 01-23-2024 Albumin [Mass/Vol] 4.1 g/dL Normal 3.3-5.0 [facility] Comment on above: Performed By: #### 2 [id number] #### [facility] [address] [place] [address] Albumin/Globulin (S) [Mass conc ratio] 1.4 Normal 1.1-2.2 [facility] Comment on above: Performed By: #### 2 [id number] #### [facility] [address] [place] [address] ALP [Catalytic activity/Vol] 118 Int._Unit/L High 21-98 [facility] Comment on above: Performed By: #### 2 [id number] #### [facility] [address] [place] [address] ALT No additional P-5'-P [Catalytic activity/Vol] 19 Int._Unit/L Normal 6-46 [facility] Comment on above: Performed By: #### 2 [id number] #### [facility] [address] [place] [address] Anion gap [Moles/Vol] 11 mmol/L Normal 6-16 [facility] Comment on above: Performed By: #### 2 [id number] #### [facility] [address] [place] [address] AST [Catalytic activity/Vol] 28 Int._Unit/L Normal 5-43 [facility] Comment on above: Performed By: #### 2 [id number] #### [facility] [address] [place] [address] Bilirubin [Mass/Vol] 0.4 mg/dL Normal 0.0-1.1 [facility] Comment on above: Performed By: #### 2 [id number] #### [facility] [address] [place] [address] Calcium [Mass/Vol] 9.4 mg/dL Normal 8.9-11.1 [facility] Comment on above: Performed By: #### 2 [id number] #### [facility] [address] [place] [address] Chloride [Moles/Vol] 100 mmol/L Low 101-111 [facility] Comment on above: Performed By: #### 2 [id number] #### [facility] [address] [place] [address] CO2 [Moles/Vol] 27 mmol/L Normal 21-31 [facility] Comment on above: Performed By: #### 2 [id number] #### [facility] [address] [place] [address] Creatinine [Mass/Vol] 1.5 mg/dL High 0.5-1.3 [facility] Comment on above: Performed By: #### 2 [id number] #### [facility] [address] [place] [address] Globulin (S) [Mass/Vol] 3.0 g/dL Normal 1.4-4.0 [facility] Comment on above: Performed By: #### 2 [id number] #### [facility] [address] [place] [address] Glucose [Mass/Vol] 275 mg/dL High 55-199 [facility] Comment on above: Performed By: #### 2 [id number] #### [facility] [address] [place] [address] Potassium [Moles/Vol] 4.8 mmol/L Normal 3.5-5.3 [facility] Comment on above: Performed By: #### 2 [id number] #### [facility] [address] [place] [address] Protein [Mass/Vol] 7.1 g/dL Normal 6.0-7.8 [facility] Comment on above: Performed By: #### 2 [id number] #### [facility] [address] [place] [address] Sodium [Moles/Vol] 133 mmol/L Low 135-145 [facility] Comment on above: Performed By: #### 2 [id number] #### [facility] [address] [place] [address] Urea nitrogen [Mass/Vol] 40 mg/dL High 5-21 [facility] Comment on above: Performed By: #### 2 [id number] #### [facility] [address] [place] [address] Urea nitrogen/Creatinine [Mass ratio] 27 No Units High 10-20 [facility] Comment on above: Performed By: #### 2 [id number] #### [facility] [address] [place] [address] HEMATOLOGYOrdered By: SYSTEM SYSTEM on 01-23-2024 Basophils/100 WBC (Bld) 0.8 % Normal 0.0 - 2.0 % Rem[facility] Heme Basophils/Leukocytes Auto (Bld) [Pure # fraction] 0.1 E9/L Normal 0.0 - 0.2 E9/L [facility]e Eosinophils (Bld) [#/Vol] 0.7 E9/L High 0.0 - 0.5 E9/L [facility] Eosinophils/100 WBC (Bld) 7.2 % Normal 0.0 - 8.0 % [facility] Erythrocyte distribution width (RBC) [Ratio] 14.0 % Normal 10.9 - 14.2 % [facility] Hematocrit (Bld) [Volume fraction] 38.7 % Normal 37.7 - 49.0 % [facility] Hemoglobin (Bld) [Mass/Vol] 13.3 g/dL Low 13.5 - 17.5 gm/dL [facility] Lymphocytes (Bld) [#/Vol] 2.0 E9/L Normal 1.0 - 4.0 E9/L [facility] Lymphocytes/100 WBC (Bld) 20.2 % Normal 14.0 - 50.0 % [facility] MCH (RBC) [Entitic mass] 30.9 pg Normal 27.0 - 34.0 pg [facility] MCHC (RBC) [Mass/Vol] 34.3 g/dL Normal 31.4 - 36.0 gm/dL [facility] MCV (RBC) [Entitic vol] 90.0 fL Normal 80.0 - 100.0 fL [facility] Monocytes (Bld) [#/Vol] 0.7 E9/L Normal 0.2 - 1.0 E9/L [facility] Monocytes/100 WBC (Bld) 6.6 % Normal 4.0 - 14.0 % [facility] Neutrophils (Bld) [#/Vol] 6.5 E9/L Normal 2.0 - 7.5 E9/L [facility] Neutrophils/100 WBC (Bld) 65.2 % Normal 36.0 - 75.0 % [facility] Platelet mean volume (Bld) [Entitic vol] 10.4 fL Normal 6.4 - 10.8 fL [facility] Platelets (Bld) [#/Vol] 192.0 E9/L Normal 150. 0 - 500.0 E9/L [facility] RBC (Bld) [#/Vol] 4.3 E12/L Normal 4.3 - 5.9 E12/L [facility] WBC corrected for nucl RBC Auto (Bld) [#/Vol] 10.0 E9/L Normal 4.0 - 11.0 E9/L [facility] eGFRon 01-23-2024 eGFR 50 mL/min/1.73 m2 Low >=59 [facility] Comment on above: Performed By: #### 1 [id number] #### [facility] [address] [place] [address] Ambulatory Visit Summaryon 1 Ambulatory Visit Summary Ambulatory Visit Summary ALTAGRACIA CONWAY :1955 Visit Date:01/06/2024 Ambulatory Visit Instructions Your Diagnosis BPH with obstruction/lower urinary tract symptoms Screening PSA (prostate specific antigen) Asymptomatic microscopic hematuria Kidney stones History of pancreatic cancer Other obstructive and reflux uropathy Your Care Team Attending Physician - Donna Johnson Primary Care Physician - TIKI DOCKERY DO Referring Physician - TIKI DOCKERY DO This Is Your Medications List tamsulosin (tamsulosin 0.4 mg Cap) Contact prescribing physician if questions or concerns Misc Prescription (S.A.S.H (SALINE, ADMINISTRATION OF DRUG, SALINE, HEPARIN)) albuterol (Ventolin HFA 90 mcg/inh Aerosol-Adpt) amlodipine (amLODIPine 10 mg Tab) aspirin (Adult Aspirin 81 mg oral tablet, chewable) atorvastatin (atorvastatin 10 mg Tab) busPIRone (busPIRone 30 mg oral tablet) ceftriaxone (cefTRIAXone 1 g intravenous injection) cholecalciferol (Vitamin D3 2000 intl units oral Tab) doxepin (doxepin 100 mg Cap) fluticasone-vilanterol (Breo Ellipta 100 mcg-25 mcg inhalation powder) furosemide (furosemide 20 mg Tab) insulin aspart (insulin aspart 100 units/mL injectable solution) insulin aspart (insulin aspart 100 units/mL injectable solution) insulin degludec (insulin degludec 100 units/mL subcutaneous solution) levomilnacipran (Fetzima 40 mg oral capsule, extended release) lisinopril (lisinopril 10 mg Tab) lorazepam (Ativan 1 mg Tab) mirtazapine (mirtazapine 45 mg oral tablet) ondansetron (ondansetron 8 mg Dis Tab) oxycodone (oxycodone 10 mg oral tablet) pancrelipase (Creon 36,000 units oral delayed release capsule) pantoprazole (Pantoprazole [address] Tab) pregabalin (pregabalin 150 mg Cap) Procedures Performed 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 Discharge Vitals Heart Rate (Peripheral) 64 Blood Pressure 114/64 Height 188 cm Height 74 in Weight 96 kg Weight 211.2 lb BMI 27.16 Medications What How Much When Why Instructions Changed tamsulosin (tamsulosin 0.4 mg Cap) 1 Capsules By Mouth 2 times a day Pickup at [id number] Unchanged albuterol (Ventolin HFA 90 mcg/ inh Aerosol-Adpt) 1 Puffs Inhalation Every 4 hours as needed for Shortness of breath or wheezing Contact prescribing physician if questions or concerns Unchanged amlodipine (amLODIPine 10 mg Tab) 1 Tablets By Mouth Every day Contact prescribing physician if questions or concerns Unchanged aspirin (Adult Aspirin 81 mg oral tablet, chewable) 1 Tablets Chewed Every day Contact prescribing physician if questions or concerns Unchanged atorvastatin (atorvastatin 10 mg Tab) 1 Tablets By Mouth Every day Contact prescribing physician if questions or concerns Unchanged busPIRone (busPIRone 30 mg oral tablet) 1 Tablets By Mouth At bedtime Contact prescribing physician if questions or concerns Unchanged ceftriaxone (cefTRIAXone 1 g intravenous injection) 1 Each Intravenous Piggyback Every 24 hours Bacteremia Contact prescribing physician if questions or concerns Unchanged cholecalciferol (Vitamin D3 2000 intl units oral Tab) 50 Microgram By Mouth Every day Contact prescribing physician if questions or concerns Unchanged doxepin (doxepin 100 mg Cap) 1 Capsules By Mouth Once a day (at bedtime) Contact prescribing physician if questions or concerns Unchanged fluticasone-vilanterol (Breo Ellipta 100 mcg-25 mcg inhalation powder) 1 Puffs Inhalation Every day 30 dose unit Contact prescribing physician if questions or concerns Unchanged furosemide (furosemide 20 mg Tab) 1 Tablets By Mouth Every day Contact prescribing physician if questions or concerns Unchanged insulin aspart (insulin aspart 100 units/ mL injectable solution) 8-12 unit(s) Subcutaneous Once daily with supper Contact prescribing physician if questions or concerns Unchanged insulin aspart (insulin aspart 100 units/ mL injectable solution) 8 Units Subcutaneous Every day Contact prescribing physician if questions or concerns Unchanged insulin degludec (insulin degludec 100 units/ mL subcutaneous solution) 30 Units Subcutaneous Every day Contact prescribing physician if questions or concerns Unchanged levomilnacipran (Fetzima 40 mg oral capsule, extended release) See instructions 1.5 CAPSULES TO EQUAL 60MG DAILY Contact prescribing physician if questions or concerns Unchanged lisinopril (lisinopril 10 mg Tab) 1 Tablets By Mouth Every day Contact prescribing physician if questions or concerns Unchanged lorazepam (Ativan 1 mg Tab) 1 Tablets By Mouth At bedtime Contact prescribing physician if questions or concerns Unchanged mirtazapine (mirtazapine 45 mg oral tablet) 1 Tablets By Mouth Once a day (at bedtime) Contact prescribing physician if questions or concerns Unchanged Misc Prescription (S.A.S.H (SALINE, ADMINISTRATION OF DRUG, SALINE, HEPA (more content not included)... Normal [facility] PTH [place] 12-14-2023 Parathyrin.intact [Mass/Vol] 42 pg/mL Invalid Interpretation Code 15-65 [facility] Comment on above: Result Comment: Perf ormed at: [facility] [address] [id number] PhD Miriam Sam Performed By: #### 1 [id number] #### [facility] [address] [place] [address] CBC w/Indiceson 12-13-2023 Erythrocyte distribution width (RBC) [Ratio] 14.9 % High 10.9-14.2 [facility] Comment on above: Performed By: #### 2 [id number] #### [facility] [address] [place] [address] Hematocrit (Bld) [Volume fraction] 36.6 % Low 37.7-49.0 [facility] Comment on above: Performed By: #### 2 [id number] #### [facility] [address] [place] [address] Hemoglobin (Bld) [Mass/Vol] 12.5 g/dL Low 13.5-17.5 [facility] Comment on above: Performed By: #### 2 [id number] #### [facility] [address] [place] [address] MCH (RBC) [Entitic mass] 31.1 pg Normal 27.0-34.0 [facility] Comment on above: Performed By: #### 2 [id number] #### [facility] [address] [place] [address] MCHC (RBC) [Mass/Vol] 34.2 g/dL Normal 31.4-36.0 [facility] Comment on above: Performed By: #### 2 [id number] #### [facility] [address] [place] [address] MCV (RBC) [Entitic vol] 90.9 fL Normal 80.0-100.0 [facility] Comment on above: Performed By: #### 2 [id number] #### [facility] [address] [place] [address] Platelet mean volume (Bld) [Entitic vol] 9.7 fL Normal 6.4-10.8 [facility] Comment on above: Performed By: #### 2 [id number] #### [facility] [address] [place] [address] Platelets (Bld) [#/Vol] 168.0 E9/L Normal 150.0-500.0 [facility] Comment on above: Performed By: #### 2 [id number] #### [facility] [address] [place] [address] RBC (Bld) [#/Vol] 4.0 E12/L Low 4.3-5.9 [facility] Comment on above: Performed By: #### 2 [id number] #### [facility] [address] [place] [address] RBC size Nom (Bld) NORMAL Invalid Interpretation Code [facility] Comment on above: Performed By: #### 2 [id number] #### [facility] [address] [place] [address] WBC corrected for nucl RBC Auto (Bld) [#/Vol] 8.2 E9/L Normal 4.0-11.0 [facility] Comment on above: Performed By: #### 2 [id number] #### [facility] [address] [place] [address] CHEMISTRYOrdered By: SYSTEM SYSTEM on 12-13-2023 U Creatinine 134.8 mg/dL Invalid Interpretation Code [facility] Ur Total Protein 21.7 mg/dL Invalid Interpretation Code [facility] 25-hydroxyvitamin D3 [Mass/Vol] 49.9 ng/mL Normal 30.0 - 100.0 ng/mL [facility] eGFR 29 mL/min/1.73 m2 Low >=59mL/min /1 .73 m2 [facility] Phosphate [Mass/Vol] 5.6 mg/dL High 1.9 - 4 .6 mg/dL [facility] Urea nitrogen/Creatinine [Mass ratio] 24 mg/mg High 10 - 20 [facility] Erythrocyte distribution wid th [Ratio] by Automated countOrdered By: SYSTEM SYSTEM on 12-13-2023 Erythrocyte distribution width (RBC) [Ratio] 14.9 % High 10.9-14.2 [facility] Erythrocytes [#/volume] in B lood by Automated countOrdered By: SYSTEM SYSTEM on 12-13-2023 RBC (Bld) [#/Vol] 4.0 E12/L Low 4.3-5.9 [facility] Estimated glomerular filtrat ion rate (GFR) non- Americanon 12-13-2023 GFR/1.73 sq M.predicted among non-blacks MDRD (S/P/Bld) [Vol rate/Area] 29 mL/min/1.73 m2 Low >=59 [facility] HEMATOLOGYOrdered By: SYSTEM SYSTEM on 12-13-2023 RBC size Nom (Bld) NORMAL *NA* (12/13/23 8:48 AM) Invalid Interpretation Code [facility] Hematocrit [Volume Fraction] of Blood by Automated countOrdered By: SYSTEM SYSTEM on 12-13-2023 Hematocrit (Bld) [Volume fraction] 36.6 % Low 37.7-49.0 [facility] Hemoglobin [Mass/volume] in BloodOrdered By: SYSTEM SYSTEM on 12-13-2023 Hemoglobin (Bld) [Mass/Vol] 12.5 g/dL Low 13.5-17.5 [facility] Laboratory - Chemistry and C hemistry - challengeOrdered By: SYSTEM SYSTEM on 12-13-2023 Bilirubin Ql (U) Negative Negative [facility] UA Auto SS Urobilinogen (U) [Mass/Vol] Negative Negative [facility] UA Auto SS Albumin [Mass/Vol] 4.1 g/dL 3.3-5.0 [facility] Calcium [Mass/Vol] 9.6 mg/dL 8.9-11.1 [facility] Chloride [Moles/Vol] 102 mmol/L 101-111 [facility] CO2 [Moles/Vol] 27 mmol/L 21-31 [facility] Creatinine [Mass/Vol] 2.4 mg/dL High 0.5-1.3 Rem isol Chem Glucose [Mass/Vol] 158 mg/dL 55-199 [facility] Magnesium [Mass/Vol] 2.3 mg/dL 1.3-2.4 [facility] Potassium [Moles/Vol] 4.5 mmol/L 3.5-5.3 Rem isol Chem Sodium [Moles/Vol] 135 mmol/L 135-145 [facility] Urate [Mass/Vol] 7.4 mg/dL 2.2-7.4 [facility] Urea nitrogen [Mass/Vol] 57 mg/dL High 5-21 [facility] Laboratory - Chemistry and C hemistry - challengeon 12-13-2023 Glucose (U) [Mass/Vol] Negative Negative [facility] Ketones Ql (U) Negative Negative [facility] pH (U) 5.0 [pH] 5.0-9.0 [facility] Specific gravity (U) [Rel density] 1.018 1.005-1.030 [facility] Laboratory - Specimen inform ationon 12-13-2023 Appearance (U) Clear Clear [facility] Color (U) Yellow Yellow [facility] Specimen type Nom (Spec) Clean Catch [facility] Laboratory - Urinalysison Hyaline casts LM Ql (Urine sed) 4-10 CD:[id number] Abnormal 0-3 [facility] Leukocyte esterase Test strip Ql (U) 250 Derikc/uL CD:[id number] Abnormal Negative [facility] Mucus Ql (Urine sed) Trace CD:[id number] Negati ve [facility] Nitrite Ql (U) Negative Negative [facility] Protein (U) [Mass/Vol] 21.7 mg/[facility] - UrinalysisOrder ed By: SYSTEM SYSTEM on 12-13-2023 Protein Ql (U) Negative Negative [facility] UA Au to SS Leukocytes [#/volume] correc lamont for nucleated erythrocytes in Blood by Automated counOrdered By: SYSTEM SYSTEM on 12-13-2023 WBC corrected for nucl RBC Auto (Bld) [#/Vol] 8.2 E9/L 4.0-11.0 [facility] MCH [Entitic mass] by Automa lamont countOrdered By: SYSTEM SYSTEM on 12-13-2023 MCH (RBC) [Entitic mass] 31.1 pg 27.0-34.0 [facility] MCHC [Mass/volume] by Automa lamont countOrdered By: SYSTEM SYSTEM on 12-13-2023 MCHC (RBC) [Mass/Vol] 34.2 g/dL 31.4-36.0 [facility] MCV [Entitic volume] by Auto mated countOrdered By: SYSTEM SYSTEM on 12-13-2023 MCV (RBC) [Entitic vol] 90.9 fL 80.0-100.0 [facility] Magnesiumon 12-13-2023 Magnesium [Mass/Vol] 2.3 mg/dL Normal 1.3-2.4 [facility] Comment on above: Performed By: #### 2 [id number] #### [facility] [address] [place] [address] No Panel Informationon 12-12 Urine Occult Blood Negative Negative [facility] Urine Random Creatinine 134.8 mg/dL [facility] Urine RBC 4-20 CD:[id number] Abnormal 0-3 [facility] Urine Squamous Epithelial Cells 0-2 CD:[id number] [facility] Urine WBC 31-75 CD:[id number] Abnormal 0-5 [facility] 25-Hydroxy Vitamin D Total 49.9 ng/mL 30.0-100.0 [facility] BUN/Creatinine Ratio 24 No Units High 10-20 [facility] Parathyroid Hormone (Intact) 42 pg/mL 15-65 [facility] Phosphorus Level 5.6 mg/dL High 1.9-4.6 [facility] RBC Size NORMAL [facility] Platelet mean volume [Entiti c volume] in Blood by Automated countOrdered By: SYSTEM SYSTEM on 12-13-2023 Platelet mean volume (Bld) [Entitic vol] 9.7 fL 6.4-10.8 [facility] Platelets [#/volume] in Bloo d by Automated countOrdered By: SYSTEM SYSTEM on 12-13-2023 Platelets (Bld) [#/Vol] 168.0 E9/L 150.0-500.0 [facility] Renal Panelon 12-13-2023 Phosphate [Mass/Vol] 5.6 mg/dL High 1.9-4.6 [facility] Comment on above: Performed By: #### 1 [id number] #### [facility] [address] [place] [address] Albumin [Mass/Vol] 4.1 g/dL Normal 3.3-5.0 [facility] Comment on above: Performed By: #### 1 [id number] #### [facility] [address] [place] [address] Anion gap [Moles/Vol] 11 mmol/L Normal 6-16 [facility] Comment on above: Performed By: #### 1 [id number] #### [facility] [address] [place] [address] Calcium [Mass/Vol] 9.6 mg/dL Normal 8.9-11.1 [facility] Comment on above: Performed By: #### 1 [id number] #### [facility] [address] [place] [address] Chloride [Moles/Vol] 102 mmol/L Normal 101-111 [facility] Comment on above: Performed By: #### 1 [id number] #### [facility] [address] [place] [address] CO2 [Moles/Vol] 27 mmol/L Normal 21-31 [facility] Comment on above: Performed By: #### 1 [id number] #### [facility] [address] [place] [address] Creatinine [Mass/Vol] 2.4 mg/dL High 0.5-1.3 [facility] Comment on above: Performed By: #### 1 [id number] #### [facility] [address] [place] [address] Glucose [Mass/Vol] 158 mg/dL Normal 55-199 [facility] Comment on above: Performed By: #### 1 [id number] #### [facility] [address] [place] [address] Potassium [Moles/Vol] 4.5 mmol/L Normal 3.5-5.3 [facility] Comment on above: Performed By: #### 1 [id number] #### [facility] [address] [place] [address] Sodium [Moles/Vol] 135 mmol/L Normal 135-145 [facility] Comment on above: Performed By: #### 1 [id number] #### [facility] [address] [place] [address] Urea nitrogen [Mass/Vol] 57 mg/dL High 5-21 [facility] Comment on above: Performed By: #### 1 [id number] #### [facility] [address] [place] [address] Urea nitrogen/Creatinine [Mass ratio] 24 No Units High 10-20 [facility] Comment on above: Performed By: #### 1 [id number] #### [facility] [address] [place] [address] Serum or plasma anion gap de terminationOrdered By: SYSTEM SYSTEM on 12-13-2023 Anion gap [Moles/Vol] 11 mmol/L 6-16 Rem isol Chem U Protein/Creat Ratioon 10 Protein/Creatinine (U) [Ratio] 16.10 mg/gm Cr Normal .00-200.00 [facility] Comment on above: Performed By: #### 1 [id number] #### [facility] [address] [place] [address] U Creatinine 134.8 mg/dL Invalid Interpretation Code [facility] Comment on above: Performed By: #### 1 [id number] #### [facility] [address] [place] [address] Ur Total Protein 21.7 mg/dL Invalid Interpretation Code [facility] Comment on above: Performed By: #### 1 [id number] #### [facility] [address] [place] [address] URINALYSISOrdered By: SYSTEM SYSTEM on 12-13-2023 Clarity (U) Clear (12/13/23 3:31 PM) Normal Clear [facility] UA Auto SS Color (U) Yellow 1 (12/13/23 3:31 PM) Normal Yellow [facility]A Auto SS Comment on above: Interpretive Data: M icroscopic readings are only performed on those samples that meet specific criteria set forth by [facility]. Epithelial cells.squamous Auto (Urine sed) [#/Area] 0-2 graded/HPF Invalid Interpretation Code [facility] UA Auto SS Glucose Ql (U) Negative Normal Negativemg/d L [facility] UA Auto SS Hemoglobin Auto test strip (U) [Mass/Vol] Negative Normal Negativemg/d L [facility] UA Auto SS Hyaline casts LM Ql (Urine sed) 4-10 graded/LPF Invalid Interpretation Code 0-3graded/LP F [facility] UA Auto SS Ketones Auto test strip Ql (U) Negative Normal Negativemg/d L [facility] UA Auto SS Leukocyte esterase Auto test strip Ql (U) 250 Derick/uL Derick/uL Invalid Interpretation Code NegativeLeu/ uL [facility] UA Auto SS Mucus Auto Ql (U) Trace graded/LPF Normal Negati vegrad ed/LPF [facility] UA Auto SS Nitrite Auto test strip Ql (U) Negative Normal Negativemg/d L [facility] UA Auto SS pH (U) 5.0 *NA* (12/13/23 3:31 PM) Invalid Interpretation Code 5.0 - 9.0 [facility] UA Auto SS RBC Ql (U) 4-20 graded/HPF Invalid Interpretation Code 0-3graded/HP F [facility] UA Auto SS Specific gravity (U) [Rel density] 1.018 *NA* (12/13/23 3:31 PM) Invalid Interpretation Code 1.005 - 1.030 [facility] UA Auto SS WBC Auto (Urine sed) [#/Area] 31-75 graded/HPF Invalid Interpretation Code 0-5graded/HP F [facility] UA Auto SS URINALYSISOrdered By: Olga Olivo on 12-13-2023 UA Spec Desc Clean Catch (12/13/23 3:31 PM) Normal [facility] UA Auto SS Uric Acidon 12-13-2023 Urate [Mass/Vol] 7.4 mg/dL Normal 2.2-7.4 [facility] Comment on above: Performed By: #### 2 [id number] #### [facility] [address] [place] [address] Urinalysis with Microon 10-0 Bilirubin Ql (U) Negative Normal Negative [facility] Comment on above: Performed By: #### 4 [id number] #### [facility] [address] [place] [address] Clarity (U) Clear Normal Clear [facility] Comment on above: Performed By: #### 4 [id number] #### [facility] [address] [place] [address] Color (U) Yellow Normal Yellow [facility] Comment on above: Result Comment: Micr oscopic readings are only performed on those samples that meet specific criteria set forth by [facility]. Performed By: #### 4 [id number] #### [facility] [address] [place] [address] Epithelial cells.squamous Auto (Urine sed) [#/Area] 0-2 Invalid Interpretation Code [facility] Comment on above: Performed By: #### 4 [id number] #### [facility] [address] [place] [address] Glucose Ql (U) Negative Normal Negative [facility] Comment on above: Performed By: #### 4 [id number] #### [facility] [address] [place] [address] Hemoglobin Auto test strip (U) [Mass/Vol] Negative Normal Negative [facility] Comment on above: Performed By: #### 4 [id number] #### [facility] [address] [place] [address] Hyaline casts LM Ql (Urine sed) 4-10 Abnormal 0-3 [facility] Comment on above: Performed By: #### 4 [id number] #### [facility] [address] [place] [address] Ketones Auto test strip Ql (U) Negative Normal Negative [facility] Comment on above: Performed By: #### 4 [id number] #### [facility] [address] [place] [address] Leukocyte esterase Auto test strip Ql (U) 250 Derick/uL Abnormal Negative [facility] Comment on above: Performed By: #### 4 [id number] #### [facility] [address] [place] [address] Mucus Auto Ql (U) Trace Normal Negative [facility] Comment on above: Performed By: #### 4 [id number] #### [facility] [address] [place] [address] Nitrite Auto test strip Ql (U) Negative Normal Negative [facility] Comment on above: Performed By: #### 4 [id number] #### [facility] [address] [place] [address] pH (U) 5.0 [pH] Invalid Interpretation Code 5.0-9.0 [facility] Comment on above: Performed By: #### 4 [id number] #### [facility] [address] [place] [address] Protein Ql (U) Negative Normal Negative [facility] Comment on above: Performed By: #### 4 [id number] #### [facility] [address] [place] [address] RBC Ql (U) 4-20 Abnormal 0-3 [facility] Comment on above: Performed By: #### 4 [id number] #### [facility] [address] [place] [address] Specific gravity (U) [Rel density] 1.018 Invalid Interpretation Code 1.005-1.030 [facility] Comment on above: Performed By: #### 4 [id number] #### [facility] [address] [place] [address] Urobilinogen (U) [Mass/Vol] Negative Normal Negative [facility] Comment on above: Performed By: #### 4 [id number] #### [facility] [address] [place] [address] WBC Auto (Urine sed) [#/Area] 31-75 Abnormal 0-5 [facility] Comment on above: Performed By: #### 4 [id number] #### [facility] [address] [place] [address] Type of Urine collection method Clean Catch Normal [facility] Comment on above: Performed By: #### 4 [id number] #### [facility] [address] [place] [address] Urine protein/creatinine rat ioOrdered By: SYSTEM SYSTEM on 12-13-2023 Protein/Creatinine (U) [Ratio] 16.10 mg/gm Cr .00-200.00 Remisol Chem Vitamin D 25 Hydroxyon 12-12 25-hydroxyvitamin D3 [Mass/Vol] 49.9 ng/mL Normal 30.0-100.0 [facility] Comment on above: Performed By: #### 5 [id number] #### [facility] [address] [place] [address] eGFRon 12-13-2023 eGFR 29 mL/min/1.73 m2 Low >=59 [facility] Comment on above: Order Comment: Order added by Discern Expert. Performed By: #### 1 [id number] #### [facility] [address] [place] [address] HbA1c (Bld) [Mass fraction]o n 12-10-2023 Interpretation and review of laboratory results Normal [facility] - Hematology and Cell countson 12-10-2023 HbA1c (Bld) [Mass fraction] 7.4 % [facility] CT abdomen pelvis w conon CT abdomen pelvis w con [facility] [address] [place] [address] [place] [address] CT Scan Report Signed Patient: Altagracia Conway MR#: [id number] : 1955 Acct:[id number] Age/Sex: 68 / M ADM Date: 11/08/23 Loc: Room: Type: [facility] RCR Attending Dr: Margaret Delgado MD Copies to: Margaret Delgado MD Ordering Provider: Margaret Delgado MD Date of Service: 11/19/23 CT/CT abdomen pelvis w con: restaging CT ABDOMEN AND PELVIS WITH CONTRAST COMPARISON: 04/11/2023 CLINICAL DATA: Follow-up pancreatic cancer. Spiral images were obtained through the abdomen and pelvis following oral and 90 mL Isovue-300. This CT exam was performed using one or more following dose reduction techniques: Automated exposure control, adjustment of the mA and/or kV according to patient size, or use of iterative reconstruction technique. Limited cuts through the lung bases show no contributory findings. Pneumobilia is seen, greater at the left hepatic lobe, new since the prior. The gallbladder is surgically absent. No intrahepatic masses are noted. The spleen and adrenal glands show no acute findings. The distal pancreas is atrophic. There is prior Whipple procedure and removal of the proximal pancreas. There is bilateral perinephric fibrofatty stranding. The renal nephrograms are symmetric. There is a punctate stone at the lower pole the left kidney. Tiny renal cysts are noted. There is no hydronephrosis. There is minor atherosclerotic plaque at the aorta, iliac and proximal visceral arteries. There are a few small similar lymph nodes. No ascites is present. The small bowel loops are not distended though some contain fluid. There is food debris within the stomach. There is stool along the colon. A normal retrocecal appendix is seen. There are degenerative changes at the spine. A dorsal stimulator is again noted. Images through the pelvis show no dilated small bowel loops. There is additional stool at the colon. No diverticular disease is noted. The prostate is borderline enlarged. There are no urinary bladder abnormalities for the poor degree of distention. There is degenerative change at the SI joints with partial ankylosis. No ascites is seen. CT/CT abdomen pelvis w con IMPRESSION: PNEUMOBILIA, LIKELY POSTOPERATIVE GIVEN HISTORY OF PRIOR WHIPPLE PROCEDURE. NO OBVIOUS RECURRENT OR METASTATIC DISEASE. TINY RENAL CYSTS AND LEFT NEPHROLITHIASIS. NO BOWEL OR URINARY TRACT OBSTRUCTION. MODERATE COLONIC STOOL. NO ACUTE FINDINGS. Impression dictated by: Dee Cuevas M.D.11/19/2023 10:45 AM Dictation Location: [facility] Transcribed By: [facility] 11/19/23 1045 Dictated By: Dee Cuevas MD 11/19/23 1036 Signed By: 11/19/23 1045 Normal [facility] Creatinineon 11-19-2023 Creatinine Clr Calc Pharmacy 64.19 Normal [facility] Comment on above: Result Comment: PERF ORMED BY: [place] [address] PATHOLOGIST VIOLIN REPAIRER NORBERTO PITTS M.D. Performed By: #### B UN, CREAT #### [facility] [address] [place] [address] [place] GFR/1.73 sq M.predicted MDRD (S/P/Bld) [Vol rate/Area] 54.281 mL/min/{1.73_m2} Normal [facility] Comment on above: Performed By: #### B NYASIA, CREAT #### [facility] [address] [place] [address] [place] Creatinine [Mass/Vol]on 11-09 Creatinine (U) [Mass/Vol] 1.41 mg/dL High 0.70 - 1.30 mg/dL [facility] CREATININE CLR [facility]1.73 sq M.predicted MDRD (S/P/Bld) [Vol rate/Area] 54.281 mL/min/{1.73_m2} [facility] Creatinine [Mass/volume] in Serum or PlasmaOrdered By: Margaret Delgado on 11-19-2023 Creatinine [Mass/Vol] 1.41 mg/dL High 0.70-1.30 [facility] Comment on above: Performed By: #### B UN, CREAT #### [facility] [address] [place] [address] [place] Creatinine [Mass/Vol] Creatinine [Mass/volume] in Serum or Plasma High 0.70-1.30 [facility] No Panel Informationon 11-18 Interpretation and review of laboratory results Abnormal [facility] No Panel InformationOrdered By: Margaret Delgado on 11-19-2023 Estimated GFR (CKD-EPI) 54.281 mL/Min [facility] Creatinine Clearance (Chem 64.19 [facility] Urea nitrogen [Mass/volume] in Serum or PlasmaOrdered By: Margaret Delgado on 11-19-2023 Urea nitrogen [Mass/Vol] 35 mg/dL High 7-25 [facility] Comment on above: Performed By: #### B UN, CREAT #### [facility] [address] [place] [address] [place] Urea nitrogen [Mass/Vol] Urea nitrogen [Mass/volume] in Serum or Plasma High 7-25 [facility] Urea nitrogen, body fluidon 11-19-2023 Urea nitrogen [Mass/Vol] 35 mg/dL High 7 - 25 mg/dL [facility] Bacteria identified Cx Nom ( Bld)on 10-30-2023 [facility] Blood cultureon 10-30-2023 Bacteria identified Cx Nom (Bld) Final report [facility] No Panel Informationon 10-29 Performed at: 01 - [facility] [address] [id number] Gravel Hauler: Flaco Pineda PhD, Phone: [phone] [facility] RESULTon 10-30-2023 Bacteria identified Cx Nom (Bld) Comment [facility] Comment on above: No aerobic or anaero bic growth in five days. [facility] CHEMISTRYOrdered By: Lab ROP User on 10-09-2023 Glucose [Mass/Vol] 388 mg/dL High 55 - 99 mg/dL [facility] Subsection Comment on above: Result Comment: Noti fied RN/MD POC Device SN [id number] 1 Invalid Interpretation Code [facility] POC Subsection POC User ID [id number] 1 Invalid Interpretation Code [facility] POC Subsection POC Username MIRANDA KATY Invalid Interpretation Code [facility] POC Subsection Glucose [Mass/Vol] 434 mg/dL High 55 - 99 mg/dL [facility] POC Subsection Comment on above: Result Comment: Ty GONZALEZ POC Device SN [id number] 1 Invalid Interpretation Code [facility] POC Subsection POC User ID [id number] 1 Invalid Interpretation Code [facility] POC Subsection POC Username MIRANDA KATY Invalid Interpretation Code [facility] POC Subsection Glucose [Mass/Vol] 152 mg/dL High 55 - 99 mg/dL [facility] POC Subsection Comment on above: Result Comment: Ty GONZALEZ POC Device SN [id number] 1 Invalid Interpretation Code [facility] POC Subsection POC User ID [id number] 1 Invalid Interpretation Code [facility] POC Subsection POC Username MIRANDA KATY Invalid Interpretation Code [facility] POC Subsection Capillary Glucose POCon 09-10 Glucose [Mass/Vol] 388 mg/dL High 55-99 [facility] Comment on above: Result Comment: Ty GONZALEZ Performed By: #### 2 [id number] #### [facility] [address] [place] [address] Glucose [Mass/Vol] 434 mg/dL High 55-99 [facility] Comment on above: Result Comment: Ty GONZALEZ Performed By: #### 2 [id number] #### [facility] [address] [place] [address] Glucose [Mass/Vol] 152 mg/dL High 55-99 [facility] Comment on above: Result Comment: Ty GONZALEZ Performed By: #### 2 [id number] #### [facility] [address] [place] [address] Discharge Note-Nursingon Discharge Note-Nursing Discharge Note-Nu rsing ALTAGRACIA CONWAY :1955 Visit Date:10/05/2023 Inpatient Discharge Instructions Your Care Team Admitting Physician - Nereida CA DO Consulting Physician - Leonides Bruce M.D Reason for Your Visit pt to ED with c/o SOB. dry mouth noted. cough noted. states CP intermittenty for 3 years. hx of COPD, not on home O2, speaking in short sentences. states CA survivor with R chest port in place. denies known fevers, c/o chills. Your Diagnosis Sepsis Acute respiratory failure with hypoxia COPD exacerbation Smoker Bacteremia History of pancreatic cancer CKD (chronic kidney disease), stage III DM2 (diabetes mellitus, type 2) HTN (hypertension) Hyperlipidemia Anxiety and depression On deep vein thrombosis (DVT) prophylaxis Chills Cough Depression, unspecified Shortness of breath Tests Performed CT Abdomen/Pelvis w/ Contrast CTA Chest Echo Transthoracic Complete XR Chest Single View This Is Your Medications List [facility] Prescription (S.A.S.H (SALINE, ADMINISTRATION OF DRUG, SALINE, HEPARIN)) albuterol (Ventolin HFA 90 mcg/inh Aerosol-Adpt) amlodipine (amLODIPine 10 mg Tab) aspirin (Adult Aspirin 81 mg oral tablet, chewable) atorvastatin (atorvastatin 10 mg Tab) busPIRone (busPIRone 30 mg oral tablet) ceftriaxone (cefTRIAXone 1 g intravenous injection) cholecalciferol (Vitamin D3 2000 intl units oral Tab) doxepin (doxepin 100 mg Cap) fluticasone-vilanterol (Breo Ellipta 100 mcg-25 mcg inhalation powder) furosemide (furosemide 20 mg Tab) insulin aspart (insulin aspart 100 units/mL injectable solution) insulin aspart (insulin aspart 100 units/mL injectable solution) insulin degludec (insulin degludec 100 units/mL subcutaneous solution) levomilnacipran (Fetzima 40 mg oral capsule, extended release) lisinopril (lisinopril 10 mg Tab) lorazepam (Ativan 1 mg Tab) mirtazapine (mirtazapine 45 mg oral tablet) ondansetron (ondansetron 8 mg Dis Tab) oxycodone (oxycodone 10 mg oral tablet) pancrelipase (Creon 36,000 units oral delayed release capsule) pantoprazole (Pantoprazole [address] Tab) predniSONE (predniSONE 10 mg Tab) pregabalin (pregabalin 150 mg Cap) tamsulosin (tamsulosin 0.4 mg Cap) Procedure History 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 Discharge Vitals Temperature (Axillary) 36.8 ?C Heart Rate (Monitored) 92 Respiratory Rate 18 Blood Pressure 164/92 Weight 96.7 kg What to do next Instructions From Your Doctor Event Name Event Result Discharge Activity Activity as tolerated Discharge Diet(s) Calorie Controlled- 1800 Calorie Diet Pending Diagnostic Test Results None Discharge Instructions Will need repeat blood cultures from line in 2-3 if warrented. New Follow Up Appointments after Discharge Follow Up with TIKI DOCKERY When: Comments: Call for followup appointment Where: [address], [facility] [address] [place] [address]- [employer] (1) Medications What How Much When Why Instructions Next Dose New ceftriaxone (cefTRIAXone 1 g intravenous injection) 1 Each Intravenous Piggyback Every 24 hours Bacteremia Printed Prescription 10/09 @ 9 AM New Misc Prescription (S.A.S.H (SALINE, ADMINISTRATION OF DRUG, SALINE, HEPARIN)) 0 Bacteremia per protocol after each use. Printed Prescription 10/09 AFTER ANTIBIOTIC New predniSONE (predniSONE 10 mg Tab) 1 Dose Separtor By Mouth As Directed Take 3 tabs by mouth daily x3 days, then 2 tabs daily x3 days, then 1 tab daily x3 days. Pickup at [facility] #[id number] 10/09 @ 9 AM Changed albuterol (Ventolin HFA 90 mcg/ inh Aerosol-Adpt) 1 Puffs Inhalation Every 4 hours as needed for Shortness of breath or wheezing NEEDED FOR SHORTNESS OF BREATH OR WHEEZING Changed amlodipine (amLODIPine 10 mg Tab) 1 Tablets By Mouth Every day 10/09 @ AM Changed atorvastatin (atorvastatin 10 mg Tab) 1 Tablets By Mouth Every day 10/09 @ AM Changed busPIRone (busPIRone 30 mg oral tablet) 1 Tablets By Mouth At bedtime 10/08 @ PM Changed doxepin (doxepin 100 mg Cap) 1 Capsules By Mouth Once a day (at bedtime) 10/08 @ PM Changed fluticasone-vilanterol (Breo Ellipta 100 mcg-25 mcg inhalation powder) 1 Puffs Inhalation Every day 30 dose unit 10/09 @ AM Changed furosemide (furosemide 20 mg Tab) 1 Tablets By Mouth Every day 10/09 @ AM Changed insulin aspart (insulin aspart 100 units/ mL injectable solution) 8-12 unit(s) Subcutaneous Once daily with supper 10/08 WITH DINNER Changed insulin aspart (insulin aspart 100 units/ mL injectable solution) 8 Units Subcutaneous Every day 10/09 @ 9 AM Changed insulin degludec (insulin degludec 100 units/ mL subcutaneous solution) 30 Units Subcutaneous Every day 10/09 @ 9 AM Changed levomilnacipran (Fetzima 40 mg oral capsule, extended release) See instructions 1.5 CAPSULES TO EQUAL 60MG DAILY 10/09 @ 9 AM Changed lisinopril (lisinopril (more content not included)... Normal [facility] Inpatient Clinical Summaryon 10-09-2023 Inpatient Clinical Summary Inpatient Clinical Summary [address] [address] Clinical Summary Person Information: Name: ALTAGRACIA CONWAY Age: 68 Years : 1955 Sex: Male PCP: TIKI DOCKERY DO Marital Status: Race: White Ethnicity: Non- or Language: Argentine Visit Id: Visit Reason: Chills; Cough; Shortness of breath; sob Speciality: Acuity: Enc Type: Inpatient Med Service: Medical Arrival: 10/05/2023 01:11:30 Discharge: Dispo Type: Admitted as IP to this Hosp Address: [address] [place] [phone] Provider Notes: Diagnosis: 1:Sepsis; 2:Acute respiratory failure with hypoxia; 3:COPD exacerbation; 4:Smoker; 5:Bacteremia; 6:History of pancreatic cancer; 7:CKD (chronic kidney disease), stage III; 8:DM2 (diabetes mellitus, type 2); 9:HTN (hypertension); 10:Hyperlipidemia; 11:Anxiety and depression; 12:On deep vein thrombosis (DVT) prophylaxis; Depression, unspecified Problems Active Smoker CKD (chronic kidney disease), stage III History of pancreatic cancer DM2 (diabetes mellitus, type 2) Depression with anxiety Hyperlipidemia Diabetes Hepatitis C HTN (hypertension) Hepatitis C Diabetes 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) Contusion of knee, right (07/08/2014) Medial collateral ligament sprain of knee (07/08/2014) Smoking Status: Former Smoker Functional Status: Sensory Deficits: History of Falls: Within last three months Mobility Assistance Prior to Admission: Independent ADLs: Minimal assistance Current Level of Assistance for Self-Care/Mobility: Cognitive Status: Oriented x 3 Allergies Ragweed Measurements: Height: 187 cm Weight: 96.7 kg Blood Pressure: 164 mmHg / 92 mmHg BMI: 27.82 kg/m2 Procedures No Procedures Documented Immunizations No Immunizations Documented This Visit Final Med List: albuterol (Ventolin HFA 90 mcg/inh Aerosol-Adpt) 1 Puffs Inhalation every 4 hours as needed Shortness of breath or wheezing. amlodipine (amLODIPine 10 mg Tab) 1 Tablets By Mouth every day. aspirin (Adult Aspirin 81 mg oral tablet, chewable) 1 Tablets Chewed every day. atorvastatin (atorvastatin 10 mg Tab) 1 Tablets By Mouth every day. busPIRone (busPIRone 30 mg oral tablet) 1 Tablets By Mouth at bedtime. ceftriaxone (cefTRIAXone 1 g intravenous injection) 1 Each Intravenous Piggyback every 24 hours. Refills: 0. cholecalciferol (Vitamin D3 2000 intl units oral Tab) 50 Microgram By Mouth every day. doxepin (doxepin 100 mg Cap) 1 Capsules By Mouth once a day (at bedtime). fluticasone-vilanterol (Breo Ellipta 100 mcg-25 mcg inhalation powder) 1 Puffs Inhalation every day. 30 dose unit. furosemide (furosemide 20 mg Tab) 1 Tablets By Mouth every day. insulin aspart (insulin aspart 100 units/mL injectable solution) 8 Units Subcutaneous every day. insulin aspart (insulin aspart 100 units/mL injectable solution) 8-12 unit(s) Subcutaneous Once daily with supper. insulin degludec (insulin degludec 100 units/mL subcutaneous solution) 30 Units Subcutaneous every day. levomilnacipran (Fetzima 40 mg oral capsule, extended release) 1.5 CAPSULES TO EQUAL 60MG DAILY. lisinopril (lisinopril 10 mg Tab) 1 Tablets By Mouth every day. lorazepam (Ativan 1 mg Tab) 1 Tablets By Mouth at bedtime. mirtazapine (mirtazapine 45 mg oral tablet) 1 Tablets By Mouth once a day (at bedtime). Misc Prescription (S.A.S.H (SALINE, ADMINISTRATION OF DRUG, SALINE, HEPARIN)) 0. per protocol after each use.. Refills: 0. ondansetron (ondansetron 8 mg Dis Tab) 1 Tablets By Mouth every 8 hours as needed Nausea/Vomiting. oxycodone (oxycodone 10 mg oral tablet) 1 Tablets By Mouth 4 times a day as needed Pain. pancrelipase (Creon 36,000 units oral delayed release capsule) 2 Capsules By Mouth three times a day (with meals). pantoprazole (Pantoprazole [address] Tab) 1 Tablets By Mouth every day. predniSONE (predniSONE 10 mg Tab) 1 Dose Separtor By Mouth As Directed. Take 3 tabs by mouth daily x3 days, then 2 tabs daily x3 days, then 1 tab daily x3 days.. Refills: 0. pregabalin (pregabalin 150 mg Cap) 1 Capsules By Mouth 2 times a day. tamsulosin (tamsulosin 0.4 mg Cap) 1 Capsules By Mouth every day. Care Team Members: Attending Physician: Nereida CA DO Consulting Physician: Leonides Bruce M.D Referring Physician: Follow up: With: Address: When: TIKI DOCKERY [address] [place] [address], [facility] [address] [place] [address] [facility] (1) Comments: Call for followup appointment Patient Education Information: Bacteremia, Adult; Sepsis, Self Care, Adult Normal [facility] Inpatient Clinical Summary Inpatient Clinical Summary [address] [address] Clinical Summary Person Information: Name: ALTAGRACIA CONWAY Age: 68 Years : 1955 Sex: Male PCP: TIKI DOCKERY DO Marital Status: Race: White Ethnicity: Non- or Language: Argentine Visit Id: Visit Reason: Chills; Cough; Shortness of breath; sob Speciality: Acuity: Enc Type: Inpatient Med Service: Medical Arrival: 10/05/2023 01:11:30 Discharge: Dispo Type: Admitted as IP to this Hosp Address: [address] [id number] Provider Notes: Diagnosis: 1:Sepsis; 2:Acute respiratory failure with hypoxia; 3:COPD exacerbation; 4:Smoker; 5:Bacteremia; 6:History of pancreatic cancer; 7:CKD (chronic kidney disease), stage III; 8:DM2 (diabetes mellitus, type 2); 9:HTN (hypertension); 10:Hyperlipidemia; 11:Anxiety and depression; 12:On deep vein thrombosis (DVT) prophylaxis; Depression, unspecified Problems Active Smoker CKD (chronic kidney disease), stage III History of pancreatic cancer DM2 (diabetes mellitus, type 2) Depression with anxiety Hyperlipidemia Diabetes Hepatitis C HTN (hypertension) Hepatitis C Diabetes 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) Contusion of knee, right (07/08/2014) Medial collateral ligament sprain of knee (07/08/2014) Smoking Status: Former Smoker Functional Status: Sensory Deficits: History of Falls: Within last three months Mobility Assistance Prior to Admission: Independent ADLs: Minimal assistance Current Level of Assistance for Self-Care/Mobility: Cognitive Status: Oriented x 3 Allergies Ragweed Measurements: Height: 187 cm Weight: 96.7 kg Blood Pressure: 158 mmHg / 82 mmHg BMI: 27.82 kg/m2 Procedures No Procedures Documented Immunizations No Immunizations Documented This Visit Final Med List: albuterol (Ventolin HFA 90 mcg/inh Aerosol-Adpt) 1 Puffs Inhalation every 4 hours as needed Shortness of breath or wheezing. amlodipine (amLODIPine 10 mg Tab) 1 Tablets By Mouth every day. aspirin (Adult Aspirin 81 mg oral tablet, chewable) 1 Tablets Chewed every day. atorvastatin (atorvastatin 10 mg Tab) 1 Tablets By Mouth every day. busPIRone (busPIRone 30 mg oral tablet) 1 Tablets By Mouth at bedtime. cholecalciferol (Vitamin D3 2000 intl units oral Tab) 50 Microgram By Mouth every day. doxepin (doxepin 100 mg Cap) 1 Capsules By Mouth once a day (at bedtime). fluticasone-vilanterol (Breo Ellipta 100 mcg-25 mcg inhalation powder) 1 Puffs Inhalation every day. 30 dose unit. furosemide (furosemide 20 mg Tab) 1 Tablets By Mouth every day. insulin aspart (insulin aspart 100 units/mL injectable solution) 8 Units Subcutaneous every day. insulin aspart (insulin aspart 100 units/mL injectable solution) 8-12 unit(s) Subcutaneous Once daily with supper. insulin degludec (insulin degludec 100 units/mL subcutaneous solution) 30 Units Subcutaneous every day. levomilnacipran (Fetzima 40 mg oral capsule, extended release) 1 Capsules By Mouth every day. lisinopril (lisinopril 10 mg Tab) 1 Tablets By Mouth every day. lorazepam (Ativan 1 mg Tab) 1 Tablets By Mouth at bedtime. mirtazapine (mirtazapine 45 mg oral tablet) 1 Tablets By Mouth once a day (at bedtime). ondansetron (ondansetron 8 mg Dis Tab) 1 Tablets By Mouth every 8 hours as needed Nausea/Vomiting. oxycodone (oxycodone 10 mg oral tablet) 1 Tablets By Mouth 4 times a day as needed Pain. pancrelipase (Creon 36,000 units oral delayed release capsule) 2 Capsules By Mouth three times a day (with meals). pantoprazole (Pantoprazole [address] Tab) 1 Tablets By Mouth every day. pregabalin (pregabalin 150 mg Cap) 1 Capsules By Mouth 2 times a day. tamsulosin (tamsulosin 0.4 mg Cap) 1 Capsules By Mouth every day. Care Team Members: Attending Physician: Nereida CA DO Consulting Physician: Leonides Bruce M.D Referring Physician: Follow up: With: Address: When: TIKI DOCKERY [address] [place] [address] Business (1) Comments: Call for followup appointment Patient Education Information: Normal [facility] Inpatient Patient Summaryon 10-09-2023 Inpatient Patient Summary Inpatient Patient Summary [address] [address] Patient Discharge Instructions PERSON INFORMATION Name: ALTAGRACIA CONWAY Date of : 1955 Current Date: 10/09/2023 11:47:23 PHYSICIANS Admitting Physician: Nereida CA DO Primary Care Physician: TIKI DOCKERY DO PCP Comment: Discharge Diagnosis: 1:Sepsis; 2:Acute respiratory failure with hypoxia; 3:COPD exacerbation; 4:Smoker; 5:Bacteremia; 6:History of pancreatic cancer; 7:CKD (chronic kidney disease), stage III; 8:DM2 (diabetes mellitus, type 2); 9:HTN (hypertension); 10:Hyperlipidemia; 11:Anxiety and depression; 12:On deep vein thrombosis (DVT) prophylaxis; Depression, unspecified Condition at Discharge: Stable ALTAGRACIA CONWAY has been given the following list of follow-up instructions, prescriptions, and patient education materials: PATIENT FOLLOW-UP INFORMATION Diet: Calorie Controlled- 1800 Calorie Diet Discharge Activity: Activity as tolerated Discharge Restrictions: Wound Care Instructions: Remove Your Dressing In Days Call Your Doctor For: IF UNABLE TO CONTACT YOUR PHYSICIAN AND YOU FEEL IT IS AN EMERGENCY, GO TO THE NEAREST EMERGENCY ROOM OR CALL 911 Home Treatment: Devices/Equipment: None Special Services: Additional Instructions: Will need repeat blood cultures from line in 2-3 if warrented. Primary Care Physician to provide the following pending test results: None Follow up: With: Address: When: TIKI DOCKERY [facility] [address], [address] [address] Business (1) Comments: Call for followup appointment In the event that this physician does not participate in your insurance network, please consult with your insurance company to find a nearby participating provider. Comment: MAN Kendrick RANDY B, have received the attached patient education materials/instructions and have verbalized understanding: Patient Signature Date Clinican/Nurse Signature _ Date HERE ARE THE MEDICATION CHANGES THAT OCCURRED DURING YOUR HOSPITAL STAY New Medications [id number], [address], [place] [id number], [phone] predniSONE (predniSONE 10 mg Tab) 1 Dose Separtor By Mouth As Directed. Take 3 tabs by mouth daily x3 days, then 2 tabs daily x3 days, then 1 tab daily x3 days.. Refills: 0. Last Dose: __Next Dose: __ Printed Prescriptions ceftriaxone (cefTRIAXone 1 g intravenous injection) 1 Each Intravenous Piggyback every 24 hours. Refills: 0. Last Dose: __Next Dose: __ Misc Prescription (S.A.S.H (SALINE, ADMINISTRATION OF DRUG, SALINE, HEPARIN)) 0. per protocol after each use.. Refills: 0. Last Dose: __Next Dose: __ Medications to Continue Taking That Have Changed Other Medications START: albuterol (Ventolin HFA 90 mcg/inh Aerosol-Adpt) 1 Puffs Inhalation every 4 hours as needed Shortness of breath or wheezing. Last Dose: __Next Dose: __ STOP: albuterol (Ventolin HFA 90 mcg/inh Aerosol-Adpt) 1 Puffs Inhalation every 4 hours. START: amlodipine (amLODIPine 10 mg Tab) 1 Tablets By Mouth every day. Last Dose: __Next Dose: __ START: atorvastatin (atorvastatin 10 mg Tab) 1 Tablets By Mouth every day. Last Dose: __Next Dose: __ START: busPIRone (busPIRone 30 mg oral tablet) 1 Tablets By Mouth at bedtime. Last Dose: __Next Dose: __ STOP: busPIRone (busPIRone 30 mg oral tablet) 1 Tablets By Mouth every day. START: doxepin (doxepin 100 mg Cap) 1 Capsules By Mouth once a day (at bedtime). Last Dose: __Next Dose: __ START: fluticasone-vilanterol (Breo Ellipta 100 mcg-25 mcg inhalation powder) 1 Puffs Inhalation every day. 30 dose unit. Last Dose: __Next Dose: __ START: furosemide (furosemide 20 mg Tab) 1 Tablets By Mouth every day. Last Dose: __Next Dose: __ START: insulin aspart (insulin aspart 100 units/mL injectable solution) 8-12 unit(s) Subcutaneous Once daily with supper., plus correction if blood sugar above 150 Last Dose: __Next Dose: __ START: insulin aspart (insulin aspart 100 units/mL injectable solution) 8 Units Subcutaneous every day., with breakfast plus correction if blood sugar above 150 Last Dose: __Next Dose: __ START: insulin degludec (insulin degludec 100 units/mL subcutaneous solution) 30 Units Subcutaneous every day. Last Dose: __Next Dose: __ START: levomilnacipran (Fetzima (more content not included)... Normal [facility] Inpatient Patient Summary Inpatient Patient Summary [address] [address] Patient Discharge Instructions PERSON INFORMATION Name: ALTAGRACIA CONWAY Date of : 1955 Current Date: 10/09/2023 10:26:50 PHYSICIANS Admitting Physician: Nereida CA DO Primary Care Physician: TIKI DOCKERY DO PCP Comment: Discharge Diagnosis: 1:Sepsis; 2:Acute respiratory failure with hypoxia; 3:COPD exacerbation; 4:Smoker; 5:Bacteremia; 6:History of pancreatic cancer; 7:CKD (chronic kidney disease), stage III; 8:DM2 (diabetes mellitus, type 2); 9:HTN (hypertension); 10:Hyperlipidemia; 11:Anxiety and depression; 12:On deep vein thrombosis (DVT) prophylaxis; Depression, unspecified Condition at Discharge: Stable ALTAGRACIA CONWAY has been given the following list of follow-up instructions, prescriptions, and patient education materials: PATIENT FOLLOW-UP INFORMATION Diet: Calorie Controlled- 1800 Calorie Diet Discharge Activity: Activity as tolerated Discharge Restrictions: Wound Care Instructions: Remove Your Dressing In Days Call Your Doctor For: IF UNABLE TO CONTACT YOUR PHYSICIAN AND YOU FEEL IT IS AN EMERGENCY, GO TO THE NEAREST EMERGENCY ROOM OR CALL 911 Home Treatment: Devices/Equipment: None Special Services: Additional Instructions: Primary Care Physician to provide the following pending test results: None Follow up: With: Address: When: TIKI DOCKERY [address] [facility], [address] [address] Business (1) Comments: Call for followup appointment In the event that this physician does not participate in your insurance network, please consult with your insurance company to find a nearby participating provider. Comment: MAN Kendrick RANDY B, have received the attached patient education materials/instructions and have verbalized understanding: Patient Signature Date Clinican/Nurse Signature _ Date HERE ARE THE MEDICATION CHANGES THAT OCCURRED DURING YOUR HOSPITAL STAY Medications to Continue Taking That Have Changed Other Medications START: albuterol (Ventolin HFA 90 mcg/inh Aerosol-Adpt) 1 Puffs Inhalation every 4 hours as needed Shortness of breath or wheezing. Last Dose: __Next Dose: __ STOP: albuterol (Ventolin HFA 90 mcg/inh Aerosol-Adpt) 1 Puffs Inhalation every 4 hours. START: amlodipine (amLODIPine 10 mg Tab) 1 Tablets By Mouth every day. Last Dose: __Next Dose: __ START: atorvastatin (atorvastatin 10 mg Tab) 1 Tablets By Mouth every day. Last Dose: __Next Dose: __ START: busPIRone (busPIRone 30 mg oral tablet) 1 Tablets By Mouth at bedtime. Last Dose: __Next Dose: __ STOP: busPIRone (busPIRone 30 mg oral tablet) 1 Tablets By Mouth every day. START: doxepin (doxepin 100 mg Cap) 1 Capsules By Mouth once a day (at bedtime). Last Dose: __Next Dose: __ START: fluticasone-vilanterol (Breo Ellipta 100 mcg-25 mcg inhalation powder) 1 Puffs Inhalation every day. 30 dose unit. Last Dose: __Next Dose: __ START: furosemide (furosemide 20 mg Tab) 1 Tablets By Mouth every day. Last Dose: __Next Dose: __ START: insulin aspart (insulin aspart 100 units/mL injectable solution) 8 Units Subcutaneous every day., with breakfast plus correction if blood sugar above 150 Last Dose: __Next Dose: __ START: insulin aspart (insulin aspart 100 units/mL injectable solution) 8-12 unit(s) Subcutaneous Once daily with supper., plus correction if blood sugar above 150 Last Dose: __Next Dose: __ START: insulin degludec (insulin degludec 100 units/mL subcutaneous solution) 30 Units Subcutaneous every day. Last Dose: __Next Dose: __ START: levomilnacipran (Fetzima 40 mg oral capsule, extended release) 1 Capsules By Mouth every day., take with 20 mg capsule to total 60 mg Last Dose: __Next Dose: __ STOP: levomilnacipran (Fetzima 20 mg oral capsule, extended release) 1 Capsules By Mouth every day. START: lisinopril (lisinopril 10 mg Tab) 1 Tablets By Mouth every day. Last Dose: __Next Dose: __ START: lorazepam (Ativan 1 mg Tab) 1 Tablets By Mouth at bedtime. Last Dose: __Next Dose: __ START: mirtazapine (mirtazapine 45 mg oral tablet) 1 Tablets By Mouth once a day (at bedtime). Last Dose: __Next Dose: __ START: pancrelipase (Creon 36,000 units oral delayed release capsule) 2 Capsules By Olya (more content not included)... [facility] Interdisciplinary Note - Garrison e Manageron 10-09-2023 Interdisciplinary Note - Shear Grinder Operator Helper Interdisciplinary Note - Shear Grinder Operator Helper Patient is awake and alert in bed, previously rounded with Dennise ALMONTE. Friend at bedside and will transport at [place], Pt is aware of plan to DC home today on oral antibiotics and continues to deny any concerns or DC needs. Pt is set up with [facility] at [place] and will be updated. medicare rights reviewed and second copy provided. . PCP verified and insurance information reviewed and DME discussed. Contact provided and white board updated, CRM returned to pt room , updated on need for IV atb at [place], Discussed OP infusion center and HH. Pt [place] [facility] and is not home bound, prefers OP infusion. pt has infusaport and already had today dose, and will be set up to start tomorrow until 10/19. Nursing and Dennise DRUG CLERK updated and plan to DC home today Pt was discharged, CRM contacted pt with updates on outpatient infusion center, CRM called [phone] and VM left for Ranydy regarding start of outpatient infusion beginning tomorrow 10/09-10/19 at 1230 pm tomorrow, CRM contact information provided to confirm receiving this call. Pt did return call with confrmation of OP infusion schedule, declines any further needs. [facility] Comment on above: Result Comment: Elec tronically Signed By: Matt RICHARDSON, Nasreen\.reshma\Date and Time Signed: 10/09/23 13:53 EDT Interdisciplinary Note - Shear Grinder Operator Helper Interdisciplinary Note - Shear Grinder Operator Helper Patient is awake and alert in bed, previously rounded with Dennise ALMONTE. Friend at bedside and will transport at DC, Pt is aware of plan to DC home today on oral antibiotics and continues to deny any concerns or DC needs. Pt is set up with [facility] at [place] and will be updated. medicare rights reviewed and second copy provided. . PCP verified and insurance information reviewed and DME discussed. Contact provided and white board updated, CRM returned to pt room , updated on need for IV atb at DC, Discussed OP infusion center and HH. Pt [place] [facility] and is not home bound, prefers OP infusion. pt has infusaport and already had today dose, and will be set up to start tomorrow until 10/19. Nursing and Dennise DRUG CLERK updated and plan to DC home today Normal [facility] Comment on above: Result Comment: Elec tronically Signed By: Nasreen Gutierrez RN\.reshma\Date and Time Signed: 10/09/23 11:37 EDT Interdisciplinary Note - Shear Grinder Operator Helper Interdisciplinary Note - Shear Grinder Operator Helper Patient is awake and alert in bed, previously rounded with Dennise ALMONTE. Friend at bedside and will transport at DC, Pt is aware of plan to DC home today on oral antibiotics and continues to deny any concerns or DC needs. Pt is set up with [facility] at [place] and will be updated. medicare rights reviewed and second copy provided. . PCP verified and insurance information reviewed and DME discussed. Contact provided and white board updated, [facility] Comment on above: Result Comment: Elec tronically Signed By: Nasreen Gutierrez RN\.br\Date and Time Signed: 10/09/23 10:33 EDT BMPon 10-08-2023 Anion gap [Moles/Vol] 13 mmol/L Normal 6-16 [facility] Comment on above: Performed By: #### 2 [id number] #### [facility] [address] [place] [address] Calcium [Mass/Vol] 9.2 mg/dL Normal 8.9-11.1 [facility] Comment on above: Performed By: #### 2 [id number] #### [facility] [address] [place] [address] Chloride [Moles/Vol] 106 mmol/L Normal 101-111 [facility] Comment on above: Performed By: #### 2 [id number] #### [facility] [address] [place] [address] CO2 [Moles/Vol] 21 mmol/L Normal 21-31 [facility] Comment on above: Performed By: #### 2 [id number] #### [facility] [address] [place] [address] Creatinine [Mass/Vol] 1.1 mg/dL Normal 0.5-1.3 [facility] Comment on above: Performed By: #### 2 [id number] #### [facility] [address] [place] [address] Glucose [Mass/Vol] 245 mg/dL High 55-199 [facility] Comment on above: Performed By: #### 2 [id number] #### [facility] [address] [place] [address] Potassium [Moles/Vol] 5.1 mmol/L Normal 3.5-5.3 [facility] Comment on above: Performed By: #### 2 [id number] #### [facility] [address] [place] [address] Sodium [Moles/Vol] 135 mmol/L Normal 135-145 [facility] Comment on above: Performed By: #### 2 [id number] #### [facility] [address] [place] [address] Urea nitrogen [Mass/Vol] 37 mg/dL High 5-21 [facility] Comment on above: Performed By: #### 2 [id number] #### [facility] [address] [place] [address] Urea nitrogen/Creatinine [Mass ratio] 34 No Units High 10-20 [facility] Comment on above: Performed By: #### 2 [id number] #### [facility] [address] [place] [address] CBC w/ Auto Diffon 4 Basophils/100 WBC (Bld) 0.1 % Normal 0.0-2.0 [facility] Comment on above: Performed By: #### 2 [id number] #### [facility] [address] [place] [address] Basophils/Leukocytes Auto (Bld) [Pure # fraction] 0.0 E9/L Normal 0.0-0.2 [facility] Comment on above: Performed By: #### 2 [id number] #### [facility] [address] [place] [address] Eosinophils (Bld) [#/Vol] 0.0 E9/L Normal 0.0-0.5 [facility] Comment on above: Performed By: #### 2 [id number] #### [facility] [address] [place] [address] Eosinophils/100 WBC (Bld) 0.0 % Normal 0.0-8.0 [facility] Comment on above: Performed By: #### 2 [id number] #### [facility] [address] [place] [address] Erythrocyte distribution width (RBC) [Ratio] 14.7 % High 10.9-14.2 [facility] Comment on above: Performed By: #### 2 [id number] #### [facility] [address] [place] [address] Hematocrit (Bld) [Volume fraction] 31.3 % Low 37.7-49.0 [facility] Comment on above: Performed By: #### 2 [id number] #### [facility] [address] [place] [address] Hemoglobin (Bld) [Mass/Vol] 10.9 g/dL Low 13.5-17.5 [facility] Comment on above: Performed By: #### 2 [id number] #### [facility] [address] [place] [address] Lymphocytes (Bld) [#/Vol] 0.6 E9/L Low 1.0-4.0 [facility] Comment on above: Performed By: #### 2 [id number] #### [facility] [address] [place] [address] Lymphocytes/100 WBC (Bld) 5.9 % Low 14.0-50.0 [facility] Comment on above: Performed By: #### 2 [id number] #### [facility] [address] [place] [address] MCH (RBC) [Entitic mass] 30.7 pg Normal 27.0-34.0 [facility] Comment on above: Performed By: #### 2 [id number] #### [facility] [address] [place] [address] MCHC (RBC) [Mass/Vol] 34.7 g/dL Normal 31.4-36.0 [facility] Comment on above: Performed By: #### 2 [id number] #### [facility] [address] [place] [address] MCV (RBC) [Entitic vol] 88.4 fL Normal 80.0-100.0 [facility] Comment on above: Performed By: #### 2 [id number] #### [facility] [address] [place] [address] Monocytes (Bld) [#/Vol] 0.4 E9/L Normal 0.2-1.0 [facility] Comment on above: Performed By: #### 2 [id number] #### [facility] [address] [place] [address] Neutrophils (Bld) [#/Vol] 9.4 E9/L High 2.0-7.5 [facility] Comment on above: Performed By: #### 2 [id number] #### [facility] [address] [place] [address] Neutrophils/100 WBC (Bld) 90.5 % High 36.0-75.0 [facility] Comment on above: Performed By: #### 2 [id number] #### [facility] [address] [place] [address] Platelet 189.0 E9/L Normal 150.0-500.0 [facility] Comment on above: Performed By: #### 2 [id number] #### [facility] [address] [place] [address] Platelet mean volume (Bld) [Entitic vol] 10.0 fL Normal 6.4-10.8 [facility] Comment on above: Performed By: #### 2 [id number] #### [facility] [address] [place] [address] RBC (Bld) [#/Vol] 3.5 E12/L Low 4.3-5.9 [facility] Comment on above: Performed By: #### 2 [id number] #### [facility] [address] [place] [address] WBC corrected for nucl RBC Auto (Bld) [#/Vol] 10.4 E9/L Normal 4.0-11.0 [facility] Comment on above: Performed By: #### 2 [id number] #### [facility] [address] [place] [address] CHEMISTRYOrdered By: SYSTEM SYSTEM on 10-08-2023 Anion gap [Moles/Vol] 13 mmol/L Normal 6 - 16 mEq/L R emisol Chem Calcium [Mass/Vol] 9.2 mg/dL Normal 8.9 - 11. 1 mg/dL [facility] Chloride [Moles/Vol] 106 mmol/L Normal 101 - 1 11 mmol/L [facility] CO2 [Moles/Vol] 21 mmol/L Normal 21 - 31 mmol/L [facility] Creatinine [Mass/Vol] 1.1 mg/dL Normal 0.5 - 1.3 mg/dL [facility] eGFR 73 mL/min/1.73 m2 Normal >=59mL/min /1 .73 m2 [facility] Glucose [Mass/Vol] 245 mg/dL High 55 - 199 mg/dL [facility] Potassium [Moles/Vol] 5.1 mmol/L Normal 3.5 - 5.3 mmol/L [facility] Sodium [Moles/Vol] 135 mmol/L Normal 135 - 145 mmol/L [facility] Urea nitrogen [Mass/Vol] 37 mg/dL High 5 - 21 mg/dL [facility] Urea nitrogen/Creatinine [Mass ratio] 34 mg/mg High 10 - 20 [facility] Vanco Pk 35 microgram/mL Normal 20 - 40 mcg/mL [facility] Capillary Glucose POCon 09-10 Glucose [Mass/Vol] 300 mg/dL High 55-99 [facility] Comment on above: Performed By: #### 2 [id number] #### [facility] [address] [place] [address] Glucose [Mass/Vol] 333 mg/dL High 55-99 [facility] Comment on above: Result Comment: Ty lester RN/ Performed By: #### 2 [id number] #### [facility] [address] [place] [address] Glucose [Mass/Vol] 351 mg/dL High 55-99 [facility] Comment on above: Result Comment: Ty lester RN/ Performed By: #### 2 [id number] #### [facility] [address] [place] [address] Glucose [Mass/Vol] 240 mg/dL High 55-99 [facility] Comment on above: Result Comment: Ty lester RN/ Performed By: #### 2 [id number] #### [facility] [address] [place] [address] HEMATOLOGYOrdered By: SYSTEM SYSTEM on 10-08-2023 Basophils/100 WBC (Bld) 0.1 % Normal 0.0 - 2.0 % [facility] Basophils/Leukocytes Auto (Bld) [Pure # fraction] 0.0 E9/L Normal 0.0 - 0.2 E9/L [facility] Eosinophils (Bld) [#/Vol] 0.0 E9/L Normal 0.0 - 0.5 E9/L [facility] Eosinophils/100 WBC (Bld) 0.0 % Normal 0.0 - 8.0 % [facility] Erythrocyte distribution width (RBC) [Ratio] 14.7 % High 10.9 - 14.2 % [facility] Hematocrit (Bld) [Volume fraction] 31.3 % Low 37.7 - 49.0 % [facility] Hemoglobin (Bld) [Mass/Vol] 10.9 g/dL Low 13.5 - 17.5 gm/dL [facility] Lymphocytes (Bld) [#/Vol] 0.6 E9/L Low 1.0 - 4.0 E9/L [facility] Lymphocytes/100 WBC (Bld) 5.9 % Low 14.0 - 50.0 % [facility] MCH (RBC) [Entitic mass] 30.7 pg Normal 27.0 - 34.0 pg [facility] MCHC (RBC) [Mass/Vol] 34.7 g/dL Normal 31.4 - 36.0 gm/dL [facility] MCV (RBC) [Entitic vol] 88.4 fL Normal 80.0 - 100.0 fL [facility] Monocytes (Bld) [#/Vol] 0.4 E9/L Normal 0.2 - 1.0 E9/L [facility] Monocytes/100 WBC (Bld) 3.5 % Low 4.0 - 14.0 % [facility] Neutrophils (Bld) [#/Vol] 9.4 E9/L High 2.0 - 7.5 E9/L [facility] Neutrophils/100 WBC (Bld) 90.5 % High 36.0 - 75.0 % [facility] Platelet 189.0 E9/L Normal 150.0 - 500.0 E9/L [facility] Platelet mean volume (Bld) [Entitic vol] 10.0 fL Normal 6.4 - 10.8 fL [facility] RBC (Bld) [#/Vol] 3.5 E12/L Low 4.3 - 5.9 E12/L [facility] WBC corrected for nucl RBC Auto (Bld) [#/Vol] 10.4 E9/L Normal 4.0 - 11.0 E9/L [facility] Inpatient Clinical Summaryon 10-08-2023 Inpatient Clinical Summary Inpatient Clinical Summary [place] [address] Clinical Summary Person Information: Name: ALTAGRACIA CONWAY Age: 68 Years : 1955 Sex: Male PCP: TIKI DOCKERY DO Marital Status: Race: White Ethnicity: Non- or Language: Argentine Visit Id: Visit Reason: Chills; Cough; Shortness of breath; sob Speciality: Acuity: Enc Type: Inpatient Med Service: Medical Arrival: 10/05/2023 01:11:30 Discharge: Dispo Type: Admitted as IP to this Hosp Address: [address] [place] [id number] Provider Notes: Diagnosis: 1:Sepsis; 2:Acute respiratory failure with hypoxia; 3:COPD exacerbation; 4:Smoker; 5:Bacteremia; 6:History of pancreatic cancer; 7:CKD (chronic kidney disease), stage III; 8:DM2 (diabetes mellitus, type 2); 9:HTN (hypertension); 10:Hyperlipidemia; 11:Anxiety and depression; 12:On deep vein thrombosis (DVT) prophylaxis; Depression, unspecified Problems Active Smoker CKD (chronic kidney disease), stage III History of pancreatic cancer DM2 (diabetes mellitus, type 2) Depression with anxiety Hyperlipidemia Diabetes Hepatitis C HTN (hypertension) Hepatitis C Diabetes 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) Contusion of knee, right (07/08/2014) Medial collateral ligament sprain of knee (07/08/2014) Smoking Status: Former Smoker Functional Status: Sensory Deficits: History of Falls: Within last three months Mobility Assistance Prior to Admission: Independent ADLs: Minimal assistance Current Level of Assistance for Self-Care/Mobility: Cognitive Status: Oriented x 3 Allergies Ragweed Measurements: Height: 187 cm Weight: 97.7 kg Blood Pressure: 158 mmHg / 72 mmHg BMI: 27.82 kg/m2 Procedures No Procedures Documented Immunizations No Immunizations Documented This Visit Final Med List: albuterol (Ventolin HFA 90 mcg/inh Aerosol-Adpt) 1 Puffs Inhalation every 4 hours as needed Shortness of breath or wheezing. amlodipine (amLODIPine 10 mg Tab) 1 Tablets By Mouth every day. aspirin (Adult Aspirin 81 mg oral tablet, chewable) 1 Tablets Chewed every day. atorvastatin (atorvastatin 10 mg Tab) 1 Tablets By Mouth every day. busPIRone (busPIRone 30 mg oral tablet) 1 Tablets By Mouth at bedtime. cholecalciferol (Vitamin D3 2000 intl units oral Tab) 50 Microgram By Mouth every day. doxepin (doxepin 100 mg Cap) 1 Capsules By Mouth once a day (at bedtime). fluticasone-vilanterol (Breo Ellipta 100 mcg-25 mcg inhalation powder) 1 Puffs Inhalation every day. 30 dose unit. furosemide (furosemide 20 mg Tab) 1 Tablets By Mouth every day. insulin aspart (insulin aspart 100 units/mL injectable solution) 8 Units Subcutaneous every day. insulin aspart (insulin aspart 100 units/mL injectable solution) 8-12 unit(s) Subcutaneous Once daily with supper. insulin degludec (insulin degludec 100 units/mL subcutaneous solution) 30 Units Subcutaneous every day. levomilnacipran (Fetzima 20 mg oral capsule, extended release) 1 Capsules By Mouth every day. levomilnacipran (Fetzima 40 mg oral capsule, extended release) 1 Capsules By Mouth every day. lisinopril (lisinopril 10 mg Tab) 1 Tablets By Mouth every day. lorazepam (Ativan 1 mg Tab) 1 Tablets By Mouth at bedtime. mirtazapine (mirtazapine 45 mg oral tablet) 1 Tablets By Mouth once a day (at bedtime). ondansetron (ondansetron 8 mg Dis Tab) 1 Tablets By Mouth every 8 hours as needed Nausea/Vomiting. oxycodone (oxycodone 10 mg oral tablet) 1 Tablets By Mouth 4 times a day as needed Pain. pancrelipase (Creon 36,000 units oral delayed release capsule) 2 Capsules By Mouth three times a day (with meals). pantoprazole (Pantoprazole [address] Tab) 1 Tablets By Mouth every day. pregabalin (pregabalin 150 mg Cap) 1 Capsules By Mouth 2 times a day. tamsulosin (tamsulosin 0.4 mg Cap) 1 Capsules By Mouth every day. Care Team Members: Attending Physician: Nereida CA DO Consulting Physician: Leonides Bruce M.D Referring Physician: Follow up: With: Address: When: TIKI DOCKERY [facility], [address] [address] [facility] (1) Patient Education Information: Normal [facility] Inpatient Patient Summaryon 10-08-2023 Inpatient Patient Summary Inpatient Patient Summary [address] [address] Patient Discharge Instructions PERSON INFORMATION Name: ALTAGRACIA CONWAY Date of : 1955 Current Date: 10/08/2023 11:23:38 PHYSICIANS Admitting Physician: Nereida CA DO Primary Care Physician: TIKI DOCKERY DO PCP Comment: Discharge Diagnosis: 1:Sepsis; 2:Acute respiratory failure with hypoxia; 3:COPD exacerbation; 4:Smoker; 5:Bacteremia; 6:History of pancreatic cancer; 7:CKD (chronic kidney disease), stage III; 8:DM2 (diabetes mellitus, type 2); 9:HTN (hypertension); 10:Hyperlipidemia; 11:Anxiety and depression; 12:On deep vein thrombosis (DVT) prophylaxis; Depression, unspecified Condition at Discharge: ALTAGRACIA CONWAY has been given the following list of follow-up instructions, prescriptions, and patient education materials: PATIENT FOLLOW-UP INFORMATION Diet: Discharge Activity: Discharge Restrictions: Wound Care Instructions: Remove Your Dressing In Days Call Your Doctor For: IF UNABLE TO CONTACT YOUR PHYSICIAN AND YOU FEEL IT IS AN EMERGENCY, GO TO THE NEAREST EMERGENCY ROOM OR CALL 911 Home Treatment: Devices/Equipment: None Special Services: Additional Instructions: Primary Care Physician to provide the following pending test results: Follow up: With: Address: When: TIKI DOCKERY [address] [facility], [address] [address] Business (1) In the event that this physician does not participate in your insurance network, please consult with your insurance company to find a nearby participating provider. Comment: MAN Kendrick RANDY B, have received the attached patient education materials/instructions and have verbalized understanding: Patient Signature Date Clinican/Nurse Signature _ Date HERE ARE THE MEDICATION CHANGES THAT OCCURRED DURING YOUR HOSPITAL STAY Medications to Continue Taking That Have Changed Other Medications START: albuterol (Ventolin HFA 90 mcg/inh Aerosol-Adpt) 1 Puffs Inhalation every 4 hours as needed Shortness of breath or wheezing. Last Dose: __Next Dose: __ STOP: albuterol (Ventolin HFA 90 mcg/inh Aerosol-Adpt) 1 Puffs Inhalation every 4 hours. START: amlodipine (amLODIPine 10 mg Tab) 1 Tablets By Mouth every day. Last Dose: __Next Dose: __ START: atorvastatin (atorvastatin 10 mg Tab) 1 Tablets By Mouth every day. Last Dose: __Next Dose: __ START: busPIRone (busPIRone 30 mg oral tablet) 1 Tablets By Mouth at bedtime. Last Dose: __Next Dose: __ STOP: busPIRone (busPIRone 30 mg oral tablet) 1 Tablets By Mouth every day. START: doxepin (doxepin 100 mg Cap) 1 Capsules By Mouth once a day (at bedtime). Last Dose: __Next Dose: __ START: fluticasone-vilanterol (Breo Ellipta 100 mcg-25 mcg inhalation powder) 1 Puffs Inhalation every day. 30 dose unit. Last Dose: __Next Dose: __ START: furosemide (furosemide 20 mg Tab) 1 Tablets By Mouth every day. Last Dose: __Next Dose: __ START: insulin aspart (insulin aspart 100 units/mL injectable solution) 8-12 unit(s) Subcutaneous Once daily with supper., plus correction if blood sugar above 150 Last Dose: __Next Dose: __ START: insulin aspart (insulin aspart 100 units/mL injectable solution) 8 Units Subcutaneous every day., with breakfast plus correction if blood sugar above 150 Last Dose: __Next Dose: __ START: insulin degludec (insulin degludec 100 units/mL subcutaneous solution) 30 Units Subcutaneous every day. Last Dose: __Next Dose: __ START: levomilnacipran (Fetzima 20 mg oral capsule, extended release) 1 Capsules By Mouth every day., take with 40 mg capsule to total 60 mg Last Dose: __Next Dose: __ START: levomilnacipran (Fetzima 40 mg oral capsule, extended release) 1 Capsules By Mouth every day., take with 20 mg capsule to total 60 mg Last Dose: __Next Dose: __ START: lisinopril (lisinopril 10 mg Tab) 1 Tablets By Mouth every day. Last Dose: __Next Dose: __ START: lorazepam (Ativan 1 mg Tab) 1 Tablets By Mouth at bedtime. Last Dose: __Next Dose: __ START: mirtazapine (mirtazapine 45 mg oral tablet) 1 Tablets By Mouth once a day (at bedtime). Last Dose: __Next Dose: __ START: pancrelipase (Creon 36,000 units oral delayed release capsule) 2 Capsules By Mouth three danielle (more content not included)... Normal [facility] Interdisciplinary Note - Garrison e Manageron 10-08-2023 Interdisciplinary Note - Shear Grinder Operator Helper Interdisciplinary Note - Shear Grinder Operator Helper Patient is awake and alert in bed, previously rounded with Dennise SUZY. Friend at bedside. Pt is aware of Dr. Bruce to see this afternoon and possible DC home later today. PT remains on room air, and declines any concerns or DC needs. Discussed paramedicine, and pt is agreeable to Paramedicine at [place], Referral to resource center for paramed visit in AM after DC. Medicare rights reviewed and second copy provided. Declines any further concerns or DC needs. . PCP verified and insurance information reviewed and DME discussed. Contact information provided and white board updated. Normal [facility] Comment on above: Result Comment: Elec tronically Signed By: Matt RICHARDSON, Nasreen\.reshma\Date and Time Signed: 10/08/23 11:21 EDT Vanco Peakon 10-08-2023 Vanco Pk 35 microgram/mL Normal 20-40 [facility] Comment on above: Order Comment: pleas e draw one hour after vancomycin infusion is complete Performed By: #### 2 [id number] #### [facility] [address] [place] [address] eGFRon 10-08-2023 eGFR 73 mL/min/1.73 m2 Normal >=59 [facility] Comment on above: Order Comment: Order added by Discern Expert. Performed By: #### 1 [id number] #### [facility] [address] [facility] [address] Bili Directon 10-07-2023 Bilirubin.direct [Mass/Vol] 0.1 mg/dL Normal 0.0-0.4 [facility] Comment on above: Order Comment: Order Added by Discern Expert. Performed By: #### 2 [id number] #### [facility] [address] [place] [address] C Sputumon 10-07-2023 Bacteria identified Respiratory culture Nom (Sput) Microbiology PROCEDURE: Sputum Culture [R1] SOURCE: Sputum BODY SITE: COLLECTED DATE/TIME: 10/05/2023 13:22 EDT RECEIVED DATE/TIME: 10/05/2023 17:06 EDT START DATE/TIME: 10/05/2023 17:06 EDT FREE TEXT SOURCE: Nereida CA DO, DO, Nereida Prince FINAL REPORTS Final Report [] Verified Date/Time: 10/07/2023 11:55 EDT 1+ Normal upper respiratory ninfa isolated STAINS Gram Stain Report [] Verified Date/Time: 10/06/2023 14:40 EDT 1+ White Blood Cells Occasional epithelial cells Occasional Gram Positive Cocci Performing Locations R1: This test was performed at: [facility], [address] [place] [address], [id number] , , Normal [facility] Comment on above: Performed By: #### 2 [id number] #### [facility] [address] [place] [address] CBC w/ Auto Diffon 4 Basophils/100 WBC (Bld) 0.0 % Normal 0.0-2.0 [facility] Comment on above: Performed By: #### 2 [id number] #### [facility] [address] [place] [address] Basophils/Leukocytes Auto (Bld) [Pure # fraction] 0.0 E9/L Normal 0.0-0.2 [facility] Comment on above: Performed By: #### 2 [id number] #### [facility] [address] [place] [address] Eosinophils (Bld) [#/Vol] 0.0 E9/L Normal 0.0-0.5 [facility] Comment on above: Performed By: #### 2 [id number] #### [facility] [address] [place] [address] Eosinophils/100 WBC (Bld) 0.0 % Normal 0.0-8.0 [facility] Comment on above: Performed By: #### 2 [id number] #### [facility] [address] [place] [address] Erythrocyte distribution width (RBC) [Ratio] 14.8 % High 10.9-14.2 [facility] Comment on above: Performed By: #### 2 [id number] #### [facility] [address] [place] [address] Hematocrit (Bld) [Volume fraction] 29.8 % Low 37.7-49.0 [facility] Comment on above: Performed By: #### 2 [id number] #### [facility] [address] [place] [address] Hemoglobin (Bld) [Mass/Vol] 10.1 g/dL Low 13.5-17.5 [facility] Comment on above: Performed By: #### 2 [id number] #### [facility] [address] [place] [address] Lymphocytes (Bld) [#/Vol] 0.8 E9/L Low 1.0-4.0 [facility] Comment on above: Performed By: #### 2 [id number] #### [facility] [address] [place] [address] Lymphocytes/100 WBC (Bld) 5.2 % Low 14.0-50.0 [facility] Comment on above: Performed By: #### 2 [id number] #### [facility] [address] [place] [address] MCH (RBC) [Entitic mass] 30.3 pg Normal 27.0-34.0 [facility] Comment on above: Performed By: #### 2 [id number] #### [facility] [address] [place] [address] MCHC (RBC) [Mass/Vol] 33.8 g/dL Normal 31.4-36.0 [facility] Comment on above: Performed By: #### 2 [id number] #### [facility] [address] [place] [address] MCV (RBC) [Entitic vol] 89.5 fL Normal 80.0-100.0 [facility] Comment on above: Performed By: #### 2 [id number] #### [facility] [address] [place] [address] Monocytes (Bld) [#/Vol] 0.5 E9/L Normal 0.2-1.0 [facility] Comment on above: Performed By: #### 2 [id number] #### [facility] [address] [place] [address] Neutrophils (Bld) [#/Vol] 13.5 E9/L High 2.0-7.5 [facility] Comment on above: Performed By: #### 2 [id number] #### [facility] [address] [place] [address] Neutrophils/100 WBC (Bld) 91.4 % High 36.0-75.0 [facility] Comment on above: Performed By: #### 2 [id number] #### [facility] [address] [place] [address] Platelet mean volume (Bld) [Entitic vol] 9.7 fL Normal 6.4-10.8 [facility] Comment on above: Performed By: #### 2 [id number] #### [facility] [address] [place] [address] Platelets (Bld) [#/Vol] 180.0 E9/L Normal 150.0-500.0 [facility] Comment on above: Performed By: #### 2 [id number] #### [facility] [address] [place] [address] RBC (Bld) [#/Vol] 3.3 E12/L Low 4.3-5.9 [facility] Comment on above: Performed By: #### 2 [id number] #### [facility] [address] [place] [address] WBC corrected for nucl RBC Auto (Bld) [#/Vol] 14.8 E9/L High 4.0-11.0 [facility] Comment on above: Performed By: #### 2 [id number] #### [facility] [address] [place] [address] CHEMISTRYOrdered By: SYSTEM SYSTEM on 10-07-2023 Albumin [Mass/Vol] 3.6 g/dL Normal 3.3 - 5.0 gm/dL Remisol Chem Albumin/Globulin [Mass ratio] 1.3 {ratio} Normal 1.1 - 2.2 Remisol Chem ALP [Catalytic activity/Vol] 285 [iU]/d High 21 - 98 Int._Unit/L Remisol Chem ALT No additional P-5'-P [Catalytic activity/Vol] 271 [iU]/d High 6 - 46 Int._Unit/L Remisol Chem Anion gap [Moles/Vol] 10 mmol/L Normal 6 - 16 mEq/L R emisol Chem AST [Catalytic activity/Vol] 100 [iU]/d High 5 - 43 Int._Unit/L Remisol Chem Bilirubin [Mass/Vol] 0.3 mg/dL Normal 0.0 - 1 .1 mg/dL Remisol Chem Bilirubin.direct [Mass/Vol] 0.1 mg/dL Normal 0.0 - 0.4 mg/dL Remisol Chem Calcium [Mass/Vol] 9.2 mg/dL Normal 8.9 - 11. 1 mg/dL Remisol Chem Chloride [Moles/Vol] 107 mmol/L Normal 101 - 1 11 mmol/L Remisol Chem CO2 [Moles/Vol] 23 mmol/L Normal 21 - 31 mmol/L Remisol Chem Creatinine [Mass/Vol] 1.2 mg/dL Normal 0.5 - 1.3 mg/dL Remisol Chem eGFR 66 mL/min/1.73 m2 Normal >=59mL/min /1 .73 m2 Remisol Chem Globulin (S) [Mass/Vol] 2.8 g/dL Normal 1.4 - 4.0 gm/dL Remisol Chem Glucose [Mass/Vol] 208 mg/dL High 55 - 199 mg/dL Remisol Chem Potassium [Moles/Vol] 5.3 mmol/L Normal 3.5 - 5.3 mmol/L Remisol Chem Protein [Mass/Vol] 6.4 g/dL Normal 6.0 - 7.8 gm/dL Remisol Chem Sodium [Moles/Vol] 135 mmol/L Normal 135 - 145 mmol/L Remisol Chem Urea nitrogen [Mass/Vol] 40 mg/dL High 5 - 21 mg/dL Remisol Chem Urea nitrogen/Creatinine [Mass ratio] 33 mg/mg High 10 - 20 Remisol Chem CMPon 10-07-2023 Albumin [Mass/Vol] 3.6 g/dL Normal 3.3-5.0 [facility] Comment on above: Performed By: #### 2 [id number] #### [facility] [address] [place] [address] Albumin/Globulin (S) [Mass conc ratio] 1.3 Normal 1.1-2.2 [facility] Comment on above: Performed By: #### 2 [id number] #### [facility] [address] [place] [address] ALP [Catalytic activity/Vol] 285 Int._Unit/L High 21-98 [facility] Comment on above: Performed By: #### 2 [id number] #### [facility] [address] [place] [address] ALT No additional P-5'-P [Catalytic activity/Vol] 271 Int._Unit/L High 6-46 [facility] Comment on above: Performed By: #### 2 [id number] #### [facility] [address] [place] [address] Anion gap [Moles/Vol] 10 mmol/L Normal 6-16 [facility] Comment on above: Performed By: #### 2 [id number] #### [facility] [address] [place] [address] AST [Catalytic activity/Vol] 100 Int._Unit/L High 5-43 [facility] Comment on above: Performed By: #### 2 [id number] #### [facility] [address] [place] [address] Bilirubin [Mass/Vol] 0.3 mg/dL Normal 0.0-1.1 [facility] Comment on above: Performed By: #### 2 [id number] #### [facility] [address] [place] [address] Calcium [Mass/Vol] 9.2 mg/dL Normal 8.9-11.1 [facility] Comment on above: Performed By: #### 2 [id number] #### [facility] [address] [place] [address] Chloride [Moles/Vol] 107 mmol/L Normal 101-111 [facility] Comment on above: Performed By: #### 2 [id number] #### [facility] [address] [place] [address] CO2 [Moles/Vol] 23 mmol/L Normal 21-31 [facility] Comment on above: Performed By: #### 2 [id number] #### [facility] [address] [place] [address] Creatinine [Mass/Vol] 1.2 mg/dL Normal 0.5-1.3 [facility] Comment on above: Performed By: #### 2 [id number] #### [facility] [address] [place] [address] Globulin (S) [Mass/Vol] 2.8 g/dL Normal 1.4-4.0 [facility] Comment on above: Performed By: #### 2 [id number] #### [facility] [address] [place] [address] Glucose [Mass/Vol] 208 mg/dL High 55-199 [facility] Comment on above: Performed By: #### 2 [id number] #### [facility] [address] [place] [address] Potassium [Moles/Vol] 5.3 mmol/L Normal 3.5-5.3 [facility] Comment on above: Performed By: #### 2 [id number] #### [facility] [address] [place] [address] Protein [Mass/Vol] 6.4 g/dL Normal 6.0-7.8 [facility] Comment on above: Performed By: #### 2 [id number] #### [facility] [address] [place] [address] Sodium [Moles/Vol] 135 mmol/L Normal 135-145 [facility] Comment on above: Performed By: #### 2 [id number] #### [facility] [address] [place] [address] Urea nitrogen [Mass/Vol] 40 mg/dL High 5-21 [facility] Comment on above: Performed By: #### 2 [id number] #### [facility] [address] [place] [address] Urea nitrogen/Creatinine [Mass ratio] 33 No Units High 10-20 [facility] Comment on above: Performed By: #### 2 [id number] #### [facility] [address] [place] [address] Capillary Glucose POCon 09-09 Glucose [Mass/Vol] 309 mg/dL High 55-99 [facility] Comment on above: Result Comment: Ty GONZALEZ Performed By: #### 2 [id number] #### [facility] [address] [place] [address] Glucose [Mass/Vol] 289 mg/dL High 55-99 [facility] Comment on above: Result Comment: Ty GONZALEZ Performed By: #### 2 [id number] #### [facility] [address] [place] [address] Glucose [Mass/Vol] 389 mg/dL High 55-99 [facility] Comment on above: Result Comment: Ty GONZALEZ Performed By: #### 2 [id number] #### [facility] [address] [place] [address] Glucose [Mass/Vol] 241 mg/dL High 55-99 [facility] Comment on above: Result Comment: Ty lester RN/ Performed By: #### 2 [id number] #### [facility] [address] [place] [address] HEMATOLOGYOrdered By: SYSTEM SYSTEM on 10-07-2023 Basophils/100 WBC (Bld) 0.0 % Normal 0.0 - 2.0 % Remisol Heme Basophils/Leukocytes Auto (Bld) [Pure # fraction] 0.0 E9/L Normal 0.0 - 0.2 E9/L Remisol Heme Eosinophils (Bld) [#/Vol] 0.0 E9/L Normal 0.0 - 0.5 E9/L Remisol Heme Eosinophils/100 WBC (Bld) 0.0 % Normal 0.0 - 8.0 % Remisol Heme Erythrocyte distribution width (RBC) [Ratio] 14.8 % High 10.9 - 14.2 % Remisol Heme Hematocrit (Bld) [Volume fraction] 29.8 % Low 37.7 - 49.0 % Remisol Heme Hemoglobin (Bld) [Mass/Vol] 10.1 g/dL Low 13.5 - 17.5 gm/dL Remisol Heme Lymphocytes (Bld) [#/Vol] 0.8 E9/L Low 1.0 - 4.0 E9/L Remisol Heme Lymphocytes/100 WBC (Bld) 5.2 % Low 14.0 - 50.0 % Remisol Heme MCH (RBC) [Entitic mass] 30.3 pg Normal 27.0 - 34.0 pg Remisol Heme MCHC (RBC) [Mass/Vol] 33.8 g/dL Normal 31.4 - 36.0 gm/dL Remisol Heme MCV (RBC) [Entitic vol] 89.5 fL Normal 80.0 - 100.0 fL Remisol Heme Monocytes (Bld) [#/Vol] 0.5 E9/L Normal 0.2 - 1.0 E9/L Remisol Heme Monocytes/100 WBC (Bld) 3.4 % Low 4.0 - 14.0 % Remisol Heme Neutrophils (Bld) [#/Vol] 13.5 E9/L High 2.0 - 7.5 E9/L Remisol Heme Neutrophils/100 WBC (Bld) 91.4 % High 36.0 - 75.0 % Remisol Heme Platelet mean volume (Bld) [Entitic vol] 9.7 fL Normal 6.4 - 10.8 fL Remisol Heme Platelets (Bld) [#/Vol] 180.0 E9/L Normal 150. 0 - 500.0 E9/L Remisol Heme RBC (Bld) [#/Vol] 3.3 E12/L Low 4.3 - 5.9 E12/L Remisol Heme WBC corrected for nucl RBC Auto (Bld) [#/Vol] 14.8 E9/L High 4.0 - 11.0 E9/L Remisol Heme Interdisciplinary Note - Garrison e Manageron 10-07-2023 Interdisciplinary Note - Shear Grinder Operator Helper Interdisciplinary Note - Shear Grinder Operator Helper Pt is awake and alert in bed, previously rounded with Dennise ALMONTE. Pt is aware of plan for echo today and will remain in hospital for ID to see tomorrow. PT is from home independently with support and friend at bedside will transport at [place]. Pt remains on room air, and PT/OT= no needs. Pt declines any concerns or DC needs. Declines paramedicine at [place]. Medicare rights reviewed. . PCP verified and insurance information reviewed and DME discussed. Contact information provided and white board updated. Normal [facility] Comment on above: Result Comment: Elec tronically Signed By: Matt RICHARDSON, Nasreen\.reshma\Date and Time Signed: 10/07/23 11:12 EDT eGFRon 10-07-2023 eGFR 66 mL/min/1.73 m2 Normal >=59 [facility] Comment on above: Order Comment: Order added by Discern Expert. Performed By: #### 1 [id number] #### [facility] [address] [place] [address] BMPon 10-06-2023 Anion gap [Moles/Vol] 12 mmol/L Normal 6-16 [facility] Comment on above: Performed By: #### 2 [id number] #### [facility] [address] [place] [address] Calcium [Mass/Vol] 9.0 mg/dL Normal 8.9-11.1 [facility] Comment on above: Performed By: #### 2 [id number] #### [facility] [address] [place] [address] Chloride [Moles/Vol] 107 mmol/L Normal 101-111 [facility] Comment on above: Performed By: #### 2 [id number] #### [facility] [address] [place] [address] CO2 [Moles/Vol] 22 mmol/L Normal 21-31 [facility] Comment on above: Performed By: #### 2 [id number] #### [facility] [address] [place] [address] Creatinine [Mass/Vol] 1.3 mg/dL Normal 0.5-1.3 [facility] Comment on above: Performed By: #### 2 [id number] #### [facility] [address] [place] [address] Glucose [Mass/Vol] 219 mg/dL High 55-199 [facility] Comment on above: Performed By: #### 2 [id number] #### [facility] [address] [place] [address] Potassium [Moles/Vol] 5.5 mmol/L High 3.5-5.3 [facility] Comment on above: Performed By: #### 2 [id number] #### [facility] [address] [place] [address] Sodium [Moles/Vol] 135 mmol/L Normal 135-145 [facility] Comment on above: Performed By: #### 2 [id number] #### [facility] [address] [place] [address] Urea nitrogen [Mass/Vol] 41 mg/dL High 5-21 [facility] Comment on above: Performed By: #### 2 [id number] #### [facility] [address] [place] [address] Urea nitrogen/Creatinine [Mass ratio] 32 No Units High 10-20 [facility] Comment on above: Performed By: #### 2 [id number] #### [facility] [address] [place] [address] CBC w/ Auto Diffon 4 Band form neutrophils/100 WBC (Bld) 9.0 % High 0.0-6.0 [facility] Comment on above: Performed By: #### 2 [id number] #### [facility] [address] [place] [address] Basophils (Bld) [#/Vol] 0.0 E9/L Normal 0.0-0.2 [facility] Comment on above: Performed By: #### 2 [id number] #### [facility] [address] [place] [address] Eosinophils (Bld) [#/Vol] 0.0 E9/L Normal 0.0-0.5 [facility] Comment on above: Performed By: #### 2 [id number] #### [facility] [address] [place] [address] Eosinophils/100 WBC (Bld) 0.0 % Normal 0.0-8.0 [facility] Comment on above: Performed By: #### 2 [id number] #### [facility] [address] [place] [address] Erythrocyte distribution width (RBC) [Ratio] 14.9 % High 10.9-14.2 [facility] Comment on above: Performed By: #### 2 [id number] #### [facility] [address] [place] [address] Hematocrit (Bld) [Volume fraction] 30.5 % Low 37.7-49.0 [facility] Comment on above: Performed By: #### 2 [id number] #### [facility] [address] [place] [address] Hemoglobin (Bld) [Mass/Vol] 10.2 g/dL Low 13.5-17.5 [facility] Comment on above: Performed By: #### 2 [id number] #### [facility] [address] [place] [address] Lymphocytes (Bld) [#/Vol] 1.1 E9/L Normal 1.0-4.0 [facility] Comment on above: Performed By: #### 2 [id number] #### [facility] [address] [place] [address] Lymphocytes/100 WBC (Bld) 6.0 % Low 14.0-50.0 [facility] Comment on above: Performed By: #### 2 [id number] #### [facility] [address] [place] [address] MCH (RBC) [Entitic mass] 29.9 pg Normal 27.0-34.0 [facility] Comment on above: Performed By: #### 2 [id number] #### [facility] [address] [place] [address] MCHC (RBC) [Mass/Vol] 33.5 g/dL Normal 31.4-36.0 [facility] Comment on above: Performed By: #### 2 [id number] #### [facility] [address] [place] [address] MCV (RBC) [Entitic vol] 89.3 fL Normal 80.0-100.0 [facility] Comment on above: Performed By: #### 2 [id number] #### [facility] [address] [place] [address] Monocytes (Bld) [#/Vol] 0.9 E9/L Normal 0.2-1.0 [facility] Comment on above: Performed By: #### 2 [id number] #### [facility] [address] [place] [address] Neutrophils (Bld) [#/Vol] 16.4 E9/L Invalid Interpretation Code [facility] Comment on above: Performed By: #### 2 [id number] #### [facility] [address] [place] [address] Platelet mean volume (Bld) [Entitic vol] 9.7 fL Normal 6.4-10.8 [facility] Comment on above: Performed By: #### 2 [id number] #### [facility] [address] [place] [address] Platelets (Bld) [#/Vol] 175.0 E9/L Normal 150.0-500.0 [facility] Comment on above: Performed By: #### 2 [id number] #### [facility] [address] [place] [address] RBC (Bld) [#/Vol] 3.4 E12/L Low 4.3-5.9 [facility] Comment on above: Performed By: #### 2 [id number] #### [facility] [address] [place] [address] Segmented neutrophils/100 WBC (Bld) 80.0 % High 36.0-75.0 [facility] Comment on above: Performed By: #### 2 [id number] #### [facility] [address] [place] [address] WBC corrected for nucl RBC Auto (Bld) [#/Vol] 18.4 E9/L High 4.0-11.0 [facility] Comment on above: Performed By: #### 2 [id number] #### [facility] [address] [place] [address] CHEMISTRYOrdered By: SYSTEM SYSTEM on 10-06-2023 Albumin [Mass/Vol] 3.6 g/dL Normal 3.3 - 5.0 gm/dL Remisol Chem Albumin/Globulin [Mass ratio] 1.2 {ratio} Normal 1.1 - 2.2 Remisol Chem ALP [Catalytic activity/Vol] 342 [iU]/d High 21 - 98 Int._Unit/L Remisol Chem ALT No additional P-5'-P [Catalytic activity/Vol] 407 [iU]/d High 6 - 46 Int._Unit/L Remisol Chem Anion gap [Moles/Vol] 12 mmol/L Normal 6 - 16 mEq/L R emisol Chem AST [Catalytic activity/Vol] 327 [iU]/d High 5 - 43 Int._Unit/L Remisol Chem Bilirubin [Mass/Vol] 0.4 mg/dL Normal 0.0 - 1 .1 mg/dL Remisol Chem Bilirubin.direct [Mass/Vol] 0.2 mg/dL Normal 0.0 - 0.4 mg/dL Remisol Chem Bilirubin.indirect [Mass or moles/Vol] 0.2 mg/dL Normal 0.1 - 0.9 mg/dL Remisol Chem Calcium [Mass/Vol] 9.0 mg/dL Normal 8.9 - 11. 1 mg/dL [facility] Chem Chloride [Moles/Vol] 107 mmol/L Normal 101 - 1 11 mmol/L Remisol Chem CO2 [Moles/Vol] 22 mmol/L Normal 21 - 31 mmol/L Rem[facility] Chem Creatinine [Mass/Vol] 1.3 mg/dL Normal 0.5 - 1.3 mg/dL Remisol Chem eGFR 60 mL/min/1.73 m2 Normal >=59mL/min /1 .73 m2 Remisol Chem Globulin (S) [Mass/Vol] 3.0 g/dL Normal 1.4 - 4.0 gm/dL Rem[facility] Chem Glucose [Mass/Vol] 219 mg/dL High 55 - 199 mg/dL Remisol Chem Potassium [Moles/Vol] 5.5 mmol/L High 3.5 - 5.3 mmol/L Remisol Chem Protein [Mass/Vol] 6.6 g/dL Normal 6.0 - 7.8 gm/dL Remisol Chem Sodium [Moles/Vol] 135 mmol/L Normal 135 - 145 mmol/L Remisol Chem Urea nitrogen [Mass/Vol] 41 mg/dL High 5 - 21 mg/dL Remisol Chem Urea nitrogen/Creatinine [Mass ratio] 32 mg/mg High 10 - [address] Abdomen/Pelvis w/ Contras ton 10-06-2023 CT Abdomen/Pelvis w/ Contrast Exam Date/Time: 10/06/2023 13:38 EDT Reason for Exam: Other (please specify) Report IMPRESSION: RESOLVED DESCENDING AND RECTOSIGMOID COLITIS FROM 09/19/2023. VERY SMALL RIGHT PLEURAL EFFUSION. NO OTHER SIGNIFICANT CHANGES IDENTIFIED. EXAM: CT Abdomen/Pelvis w/ Contrast DATE: 10/06/2023 1:10 PM CLINICAL HISTORY: Sepsis with leukocytosis. COMPARISON: 09/19/2023. TECHNIQUE: Spiral imaging was obtained of the abdomen and pelvis after the uneventful infusion of approximately 100 mL of Isovue [address] scans at this facility use dose modulation, iterative reconstruction, and/or weight based dosing when appropriate to reduce radiation dose to as low as reasonably achievable. Unless otherwise stated, incidental findings identified in this report do not require routine follow-up imaging. FINDINGS: Liver: No enlargement, significant fatty infiltration, suspicious mass or lesion. Biliary: The gallbladder has been removed. No abnormal biliary ductal dilatation. Mild pneumobilia. Pancreas: Postoperative changes from previous Whipple. No mass, organized fluid collection, or abnormal pancreatic ductal dilatation. Spleen: Unremarkable. Adrenals: Unremarkable. Kidneys: Small nonobstructing left lower pole calculus, punctate lower pole cysts and mild nonspecific perinephric inflammation, similar to 09/19/2023. No hydronephrosis, organized fluid collection, or suspicious mass. GI tract: Resolved wall thickening of the descending and rectosigmoid colon from 09/19/2023. No abnormal dilation or other significant changes. Lymph nodes: No pathologically enlarged lymph nodes. Mesentery/peritoneum: No ascites or mass. Retroperitoneum: No inflammatory changes or mass. Pelvis: The urinary bladder is unremarkable. No mass, organized fluid collection, or ascites. Vasculature: No aneurysm or dissection. Minimal to mild calcified atherosclerotic plaquing. Musculoskeletal: No acute osseous findings identified. Degenerative changes and Report spinal stimulator. Lower thorax: Very small right pleural effusion, new from 09/19/2023. Otherwise, noncontributory. Ordering Provider: Kathi CARIAS FINAL REPORT Dictated: 10/06/2023 1:48 pm Raghav Meléndez MD Signed (Electronic Signature): 10/06/2023 1:48 pm Signed by: Raghav Meléndez MD Transcribed by: MIKIE Technologist: SHIRLEY Technical Comments GFR (mL/min/1/73m2) 60 Contrast: Isovue 300 Contrast amount in ml's: 100 Normal [facility] Capillary Glucose POCon 09-09 Glucose [Mass/Vol] 292 mg/dL High 55-99 [facility] Comment on above: Result Comment: Ty GONZALEZ Performed By: #### 2 [id number] #### [facility] [address] [place] [address] Glucose [Mass/Vol] 272 mg/dL High 55-99 [facility] Comment on above: Result Comment: Ty GONZALEZ Performed By: #### 2 [id number] #### [facility] [address] [place] [address] Glucose [Mass/Vol] 256 mg/dL High 55-99 [facility] Comment on above: Result Comment: Ty lester RN/ Performed By: #### 2 [id number] #### [facility] [address] [place] [address] Glucose [Mass/Vol] 262 mg/dL High 55-99 [facility] Comment on above: Result Comment: Ty lester RN/ Performed By: #### 2 [id number] #### [facility] [address] [place] [address] HEMATOLOGYOrdered By: SYSTEM SYSTEM on 10-06-2023 Band form neutrophils/100 WBC (Bld) 9.0 % High 0.0 - 6.0 % Remisol Heme Basophils (Bld) [#/Vol] 0.0 E9/L Normal 0.0 - 0.2 E9/L Remisol Heme Basophils/100 WBC (Bld) 0.0 % Normal 0.0 - 2.0 % Remisol Heme Eosinophils (Bld) [#/Vol] 0.0 E9/L Normal 0.0 - 0.5 E9/L Remisol Heme Eosinophils/100 WBC (Bld) 0.0 % Normal 0.0 - 8.0 % Remisol Heme Erythrocyte distribution width (RBC) [Ratio] 14.9 % High 10.9 - 14.2 % Rem[facility] Heme Hematocrit (Bld) [Volume fraction] 30.5 % Low 37.7 - 49.0 % [facility] Heme Hemoglobin (Bld) [Mass/Vol] 10.2 g/dL Low 13.5 - 17.5 gm/dL [facility] Heme Lymphocytes (Bld) [#/Vol] 1.1 E9/L Normal 1.0 - 4.0 E9/L Rem[facility] Heme Lymphocytes/100 WBC (Bld) 6.0 % Low 14.0 - 50.0 % Remisol Heme MCH (RBC) [Entitic mass] 29.9 pg Normal 27.0 - 34.0 pg Remisol Heme MCHC (RBC) [Mass/Vol] 33.5 g/dL Normal 31.4 - 36.0 gm/dL Remisol Heme MCV (RBC) [Entitic vol] 89.3 fL Normal 80.0 - 100.0 fL [facility] Heme Monocytes (Bld) [#/Vol] 0.9 E9/L Normal 0.2 - 1.0 E9/L Rem[facility] Heme Monocytes/100 WBC (Bld) 5.0 % Normal 4.0 - 14.0 % [facility] Heme Neutrophils (Bld) [#/Vol] 16.4 E9/L Invalid Interpretation Code [facility] Heme Platelet mean volume (Bld) [Entitic vol] 9.7 fL Normal 6.4 - 10.8 fL [facility]e Platelets (Bld) [#/Vol] 175.0 E9/L Normal 150. 0 - 500.0 E9/L Remisol Heme RBC (Bld) [#/Vol] 3.4 E12/L Low 4.3 - 5.9 E12/L [facility] Heme Segmented neutrophils/100 WBC (Bld) 80.0 % High 36.0 - 75.0 % Remisol Heme WBC corrected for nucl RBC Auto (Bld) [#/Vol] 18.4 E9/L High 4.0 - 11.0 E9/L Remisol Heme Hep Func Panelon 10-06-2023 Albumin [Mass/Vol] 3.6 g/dL Normal 3.3-5.0 [facility] Comment on above: Performed By: #### 2 [id number] #### [facility] [address] [place] [address] Albumin/Globulin (S) [Mass conc ratio] 1.2 Normal 1.1-2.2 [facility] Comment on above: Performed By: #### 2 [id number] #### [facility] [address] [place] [address] ALP [Catalytic activity/Vol] 342 Int._Unit/L High 21-98 [facility] Comment on above: Performed By: #### 2 [id number] #### [facility] [address] [place] [address] ALT No additional P-5'-P [Catalytic activity/Vol] 407 Int._Unit/L High 6-46 [facility] Comment on above: Performed By: #### 2 [id number] #### [facility] [address] [place] [address] AST [Catalytic activity/Vol] 327 Int._Unit/L High 5-43 [facility] Comment on above: Performed By: #### 2 [id number] #### [facility] [address] [place] [address] Bilirubin [Mass/Vol] 0.4 mg/dL Normal 0.0-1.1 [facility] Comment on above: Performed By: #### 2 [id number] #### [facility] [address] [place] [address] Bilirubin.direct [Mass/Vol] 0.2 mg/dL Normal 0.0-0.4 [facility] Comment on above: Performed By: #### 2 [id number] #### [facility] [address] [place] [address] Bilirubin.indirect [Mass or moles/Vol] 0.2 mg/dL Normal 0.1-0.9 [facility] Comment on above: Performed By: #### 2 [id number] #### [facility] [address] [place] [address] Globulin (S) [Mass/Vol] 3.0 g/dL Normal 1.4-4.0 [facility] Comment on above: Performed By: #### 2 [id number] #### [facility] [address] [place] [address] Protein [Mass/Vol] 6.6 g/dL Normal 6.0-7.8 [facility] Comment on above: Performed By: #### 2 [id number] #### [facility] [address] [place] [address] [id number] 10-06-2023 HbA1c (Bld) [Mass fraction] 7.6 % High <=5.9 [facility] Comment on above: Performed By: #### 7 [id number] #### [facility] [address] [place] [address] No Panel InformationOrdered By: ANGPROCESSSERVER MICROBIOLOGY on 10-06-2023 Blood Culture Charcoal No growth at 3 da ys. Final to follow at 7 days. [facility] Blood Culture Charcoal No growth at 3 da ys. Final to follow at 7 days. [facility] eGFRon 10-06-2023 eGFR 60 mL/min/1.73 m2 Normal >=59 [facility] Comment on above: Order Comment: Order added by Discern Expert. Performed By: #### 1 [id number] #### [facility] [address] [place] [address] BMPon 10-05-2023 Anion gap [Moles/Vol] 15 mmol/L Normal 6-16 [facility] Comment on above: Order Comment: Pt is a line- Spoke w/ RN and dropped of line packet, [id number] 10/05/2023 08:03:47 EDT Performed By: #### 2 [id number] #### [facility] [address] [place] [address] Calcium [Mass/Vol] 8.7 mg/dL Low 8.9-11.1 [facility] Comment on above: Order Comment: Pt is a line- Spoke w/ RN and dropped of line packet, [id number] 10/05/2023 08:03:47 EDT Performed By: #### 2 [id number] #### [facility] [address] [place] [address] Chloride [Moles/Vol] 104 mmol/L Normal 101-111 [facility] Comment on above: Order Comment: Pt is a line- Spoke w/ RN and dropped of line packet, [id number] 10/05/2023 08:03:47 EDT Performed By: #### 2 [id number] #### [facility] [address] [place] [address] CO2 [Moles/Vol] 18 mmol/L Low 21-31 [facility] Comment on above: Order Comment: Pt is a line- Spoke w/ RN and dropped of line packet, [id number] 10/05/2023 08:03:47 EDT Performed By: #### 2 [id number] #### [facility] [address] [place] [address] Creatinine [Mass/Vol] 1.7 mg/dL High 0.5-1.3 [facility] Comment on above: Order Comment: Pt is a line- Spoke w/ RN and dropped of line packet, [id number] 10/05/2023 08:03:47 EDT Performed By: #### 2 [id number] #### [facility] [address] [place] [address] Glucose [Mass/Vol] 312 mg/dL High 55-199 [facility] Comment on above: Order Comment: Pt is a line- Spoke w/ RN and dropped of line packet, [id number] 10/05/2023 08:03:47 EDT Performed By: #### 2 [id number] #### [facility] [address] [place] [address] Potassium [Moles/Vol] 5.3 mmol/L Normal 3.5-5.3 [facility] Comment on above: Order Comment: Pt is a line- Spoke w/ RN and dropped of line packet, [id number] 10/05/2023 08:03:47 EDT Performed By: #### 2 [id number] #### [facility] [address] [place] [address] Sodium [Moles/Vol] 132 mmol/L Low 135-145 [facility] Comment on above: Order Comment: Pt is a line- Spoke w/ RN and dropped of line packet, [id number] 10/05/2023 08:03:47 EDT Performed By: #### 2 [id number] #### [facility] [address] [place] [address] Urea nitrogen [Mass/Vol] 50 mg/dL High 5-21 [facility] Comment on above: Order Comment: Pt is a line- Spoke w/ RN and dropped of line packet, [id number] 10/05/2023 08:03:47 EDT Performed By: #### 2 [id number] #### [facility] [address] [place] [address] Urea nitrogen/Creatinine [Mass ratio] 29 No Units High 10-20 [facility] Comment on above: Order Comment: Pt is a line- Spoke w/ RN and dropped of line packet, [id number] 10/05/2023 08:03:47 EDT Performed By: #### 2 [id number] #### [facility] [address] [place] [address] Anion gap [Moles/Vol] 13 mmol/L Normal 6-16 [facility] Comment on above: Performed By: #### 2 [id number] #### [facility] [address] [place] [address] Calcium [Mass/Vol] 9.2 mg/dL Normal 8.9-11.1 [facility] Comment on above: Performed By: #### 2 [id number] #### [facility] [address] [place] [address] Chloride [Moles/Vol] 104 mmol/L Normal 101-111 [facility] Comment on above: Performed By: #### 2 [id number] #### [facility] [address] [place] [address] CO2 [Moles/Vol] 20 mmol/L Low 21-31 [facility] Comment on above: Performed By: #### 2 [id number] #### [facility] [address] [place] [address] Creatinine [Mass/Vol] 1.6 mg/dL High 0.5-1.3 [facility] Comment on above: Performed By: #### 2 [id number] #### [facility] [address] [place] [address] Glucose [Mass/Vol] 186 mg/dL Normal 55-199 [facility] Comment on above: Performed By: #### 2 [id number] #### [facility] [address] [place] [address] Potassium [Moles/Vol] 5.4 mmol/L High 3.5-5.3 [facility] Comment on above: Performed By: #### 2 [id number] #### [facility] [address] [place] [address] Sodium [Moles/Vol] 132 mmol/L Low 135-145 [facility] Comment on above: Performed By: #### 2 [id number] #### [facility] [address] [place] [address] Urea nitrogen [Mass/Vol] 52 mg/dL High 5-21 [facility] Comment on above: Performed By: #### 2 [id number] #### [facility] [address] [place] [address] Urea nitrogen/Creatinine [Mass ratio] 32 No Units High 10-20 [facility] Comment on above: Performed By: #### 2 [id number] #### [facility] [address] [place] [address] BNPon 10-05-2023 Natriuretic peptide B (Bld) [Mass/Vol] pg/mL Normal 5-80 [facility] Comment on above: Performed By: #### 1 [id number] #### [facility] [address] [place] [address] Blood Gas Art, with Lytes, G michele, [place] 10-05-2023 a/A Ratio Art 30.00 % Normal >=0.80 [facility] Comment on above: Performed By: #### 4 [id number] #### [facility] [address] [place] [address] AaDO2 Art 75.7 mmHg High 5.0-15.0 [facility] Comment on above: Performed By: #### 4 [id number] #### [facility] [address] [place] [address] Allens Test Positive Normal [facility] Comment on above: Performed By: #### 4 [id number] #### [facility] [address] [place] [address] Base Excess Arterial -3.3 mmol/L Low >=2.8 [facility] Comment on above: Performed By: #### 4 [id number] #### [facility] [address] [place] [address] cCa2+ Art 4.90 mg/dL Normal 4.40-5.30 [facility] Comment on above: Performed By: #### 4 [id number] #### [facility] [address] [place] [address] cCl- Art 107.0 mmol/L Normal 101.0-111.0 [facility] Comment on above: Performed By: #### 4 [id number] #### [facility] [address] [place] [address] cGlu Art 189 mg/dL High 55-99 [facility] Comment on above: Performed By: #### 4 [id number] #### [facility] [address] [place] [address] cK+ Art 5.1 mmol/L Normal 3.5-5.3 [facility] Comment on above: Performed By: #### 4 [id number] #### [facility] [address] [place] [address] cLac Art 1.4 mmol/L Normal .5-2.2 [facility] Comment on above: Performed By: #### 4 [id number] #### [facility] [address] [place] [address] container finishing inspector+ Art 133.0 mmol/L Low 135.0-145.0 [facility] Comment on above: Performed By: #### 4 [id number] #### [facility] [address] [place] [address] Drawn by [email or web address] Invalid Interpretation Code [facility] Comment on above: Performed By: #### 4 [id number] #### [facility] [address] [place] [address] FCOHb Art 2.1 % Normal 1.5-4.9 [facility] Comment on above: Result Comment: Refe rence range Nonsmoker <1.5% Smoker <5.0% Heavy Smoker <9.0% Performed By: #### 4 [id number] #### [facility] [address] [place] [address] FIO2 BG 21 Invalid Interpretation Code [facility] Comment on above: Performed By: #### 4 [id number] #### [facility] [address] [place] [address] FMetHb Art 0.7 % Normal 0.0-1.9 [facility] Comment on above: Performed By: #### 4 [id number] #### [facility] [address] [place] [address] FO2Hb Art 64.1 % Abnormal 93.0-100.0 [facility] Comment on above: Result Comment: Resu lts Called To Chelsea Ortiz By Carmen goldstein And Read Back For Confirmation On 10/05/2023 02:22:36 EDT. Performed By: #### 4 [id number] #### [facility] [address] [place] [address] HCO3 (Bld) [Moles/Vol] 21.1 mmol/L Low 22.0-26.0 [facility] Comment on above: Performed By: #### 4 [id number] #### [facility] [address] [place] [address] Hemoglobin (Bld) [Mass/Vol] 11.9 g/dL Low 12.0-17.0 [facility] Comment on above: Performed By: #### 4 [id number] #### [facility] [address] [place] [address] Oxygen saturation in Blood 66.0 % Low 95.0-100.0 [facility] Comment on above: Performed By: #### 4 [id number] #### [facility] [address] [place] [address] P CO2 Arterial 33.7 mmHg Low 35.0-45.0 [facility] Comment on above: Performed By: #### 4 [id number] #### [facility] [address] [place] [address] P O2 Arterial 32.4 mmHg Abnormal 80.0-100.0 [facility] Comment on above: Result Comment: Resu lts Called To Chelsea Ortiz By Carmen goldstein And Read Back For Confirmation On 10/05/2023 02:22:36 EDT. Performed By: #### 4 [id number] #### [facility] [address] [place], [place] [id number] pH Arterial 7.400 Normal 7.350-7.450 [facility] Comment on above: Performed By: #### 4 [id number] #### [facility] [address] [place] [address] Sample Site R Radial Normal [facility] Comment on above: Performed By: #### 4 [id number] #### [facility] [address] [place] [address] Sample Type Mixed Venous Normal [facility] Comment on above: Performed By: #### 4 [id number] #### [facility] [address] [place], [place] [id number] CBC w/ Auto Diffon 4 Basophils/100 WBC (Bld) 0.2 % Normal 0.0-2.0 [facility] Comment on above: Order Comment: Pt is a line- Spoke w/ RN and dropped of line packet, [id number] 10/05/2023 08:03:47 EDT Performed By: #### 2 [id number] #### [facility] [address] [place], [place] [id number] Basophils/Leukocytes Auto (Bld) [Pure # fraction] 0.0 E9/L Normal 0.0-0.2 [facility] Comment on above: Order Comment: Pt is a line- Spoke w/ RN and dropped of line packet, [id number] 10/05/2023 08:03:47 EDT Performed By: #### 2 [id number] #### [facility] [address] [place] [address] 31367 Eosinophils (Bld) [#/Vol] 0.0 E9/L Normal 0.0-0.5 [facility] Comment on above: Order Comment: Pt is a line- Spoke w/ RN and dropped of line packet, [id number] 10/05/2023 08:03:47 EDT Performed By: #### 2 [id number] #### [facility] [address] [place] [address] 89178 Eosinophils/100 WBC (Bld) 0.0 % Normal 0.0-8.0 [facility] Comment on above: Order Comment: Pt is a line- Spoke w/ RN and dropped of line packet, [facility] 10/05/2023 08:03:47 EDT Performed By: #### 2 [id number] #### [facility] [address] [place] [address] 62436 Erythrocyte distribution width (RBC) [Ratio] 14.8 % High 10.9-14.2 [facility] Comment on above: Order Comment: Pt is a line- Spoke w/ RN and dropped of line packet, [facility] 10/05/2023 08:03:47 EDT Performed By: #### 2 [id number] #### [facility] [address] [place] [address] 76749 Hematocrit (Bld) [Volume fraction] 29.5 % Low 37.7-49.0 [facility] Comment on above: Order Comment: Pt is a line- Spoke w/ RN and dropped of line packet, [facility] 10/05/2023 08:03:47 EDT Performed By: #### 2 [id number] #### [facility] [address] [place] [address] 18401 Hemoglobin (Bld) [Mass/Vol] 10.4 g/dL Low 13.5-17.5 [facility] Comment on above: Order Comment: Pt is a line- Spoke w/ RN and dropped of line packet, [facility] 10/05/2023 08:03:47 EDT Performed By: #### 2 [id number] #### [facility] [address] [place] [address] 40860 Lymphocytes (Bld) [#/Vol] 0.3 E9/L Low 1.0-4.0 [facility] Comment on above: Order Comment: Pt is a line- Spoke w/ RN and dropped of line packet, [facility] 10/05/2023 08:03:47 EDT Performed By: #### 2 [id number] #### [facility] [address] [place] [address] 75398 Lymphocytes/100 WBC (Bld) 3.6 % Low 14.0-50.0 [facility] Comment on above: Order Comment: Pt is a line- Spoke w/ RN and dropped of line packet, [facility] 10/05/2023 08:03:47 EDT Performed By: #### 2 [id number] #### [facility] [address] [place] [address] 46561 MCH (RBC) [Entitic mass] 31.7 pg Normal 27.0-34.0 [facility] Comment on above: Order Comment: Pt is a line- Spoke w/ RN and dropped of line packet, [facility] 10/05/2023 08:03:47 EDT Performed By: #### 2 [id number] #### [facility] [address] [place] [address] 61569 MCHC (RBC) [Mass/Vol] 35.4 g/dL Normal 31.4-36.0 [facility] Comment on above: Order Comment: Pt is a line- Spoke w/ RN and dropped of line packet, [facility] 10/05/2023 08:03:47 EDT Performed By: #### 2 [id number] #### [facility] [address] [place] [address] 42965 MCV (RBC) [Entitic vol] 89.5 fL Normal 80.0-100.0 [facility] Comment on above: Order Comment: Pt is a line- Spoke w/ RN and dropped of line packet, [facility] 10/05/2023 08:03:47 EDT Performed By: #### 2 [id number] #### [facility] [address] [place] [address] 03482 Monocytes (Bld) [#/Vol] 0.7 E9/L Normal 0.2-1.0 [facility] Comment on above: Order Comment: Pt is a line- Spoke w/ RN and dropped of line packet, [facility] 10/05/2023 08:03:47 EDT Performed By: #### 2 [id number] #### [facility] [address] [place] [address] 55332 Neutrophils (Bld) [#/Vol] 8.5 E9/L High 2.0-7.5 [facility] Comment on above: Order Comment: Pt is a line- Spoke w/ RN and dropped of line packet, [id number] 10/05/2023 08:03:47 EDT Performed By: #### 2 [id number] #### [facility] [address] [place] [address] 70217 Neutrophils/100 WBC (Bld) 89.1 % High 36.0-75.0 [facility] Comment on above: Order Comment: Pt is a line- Spoke w/ RN and dropped of line packet, [id number] 10/05/2023 08:03:47 EDT Performed By: #### 2 [id number] #### [facility] [address] [place] [address] 21339 Platelet 179.0 E9/L Normal 150.0-500.0 [facility] Comment on above: Order Comment: Pt is a line- Spoke w/ RN and dropped of line packet, [id number] 10/05/2023 08:03:47 EDT Performed By: #### 2 [id number] #### [facility] [address] [place] [address] 09667 Platelet mean volume (Bld) [Entitic vol] 9.2 fL Normal 6.4-10.8 [facility] Comment on above: Order Comment: Pt is a line- Spoke w/ RN and dropped of line packet, [id number] 10/05/2023 08:03:47 EDT Performed By: #### 2 [id number] #### [facility] [address] [place] [address] 39437 RBC (Bld) [#/Vol] 3.3 E12/L Low 4.3-5.9 [facility] Comment on above: Order Comment: Pt is a line- Spoke w/ RN and dropped of line packet, [id number] 10/05/2023 08:03:47 EDT Performed By: #### 2 [id number] #### [facility] [address] [place] [address] 18083 WBC corrected for nucl RBC Auto (Bld) [#/Vol] 9.6 E9/L Normal 4.0-11.0 [facility] Comment on above: Order Comment: Pt is a line- Spoke w/ RN and dropped of line packet, [id number] 10/05/2023 08:03:47 EDT Performed By: #### 2 [id number] #### [facility] [address] [place] [address] Basophils/100 WBC (Bld) 0.3 % Normal 0.0-2.0 [facility] Comment on above: Result Comment: Yamila ection date/time has been modified to: 01:30:00. Previous collection date/time: 01:45:00. Performed By: #### 2 [id number] #### [facility] [address] [place] [address] 92569 Basophils/Leukocytes Auto (Bld) [Pure # fraction] 0.0 E9/L Normal 0.0-0.2 [facility] Comment on above: Result Comment: Yamila ection date/time has been modified to: 01:30:00. Previous collection date/time: 01:45:00. Performed By: #### 2 [id number] #### [facility] [address] [place] [address] 05213 Eosinophils (Bld) [#/Vol] 0.0 E9/L Normal 0.0-0.5 [facility] Comment on above: Result Comment: Yamila ection date/time has been modified to: 01:30:00. Previous collection date/time: 01:45:00. Performed By: #### 2 [id number] #### [facility] [address] [place] [address] 81496 Eosinophils/100 WBC (Bld) 1.3 % Normal 0.0-8.0 [facility] Comment on above: Result Comment: Yamila ection date/time has been modified to: 01:30:00. Previous collection date/time: :45:00. Performed By: #### 2 [id number] #### [facility] [address] [place] [address] Erythrocyte distribution width (RBC) [Ratio] 14.6 % High 10.9-14.2 [facility] Comment on above: Result Comment: Yamila ection date/time has been modified to: 01:30:00. Previous collection date/time: :45:00. Performed By: #### 2 [id number] #### [facility] [address] [place] [address] 96313 Hematocrit (Bld) [Volume fraction] 33.7 % Low 37.7-49.0 [facility] Comment on above: Result Comment: Yamila ection date/time has been modified to: :30:00. Previous collection date/time: :45:00. Performed By: #### 2 [id number] #### [facility] [address] [place] [address] 45543 Hemoglobin (Bld) [Mass/Vol] 11.4 g/dL Low 13.5-17.5 [facility] Comment on above: Result Comment: Yamila ection date/time has been modified to: 01:30:00. Previous collection date/time: :45:00. Performed By: #### 2 [id number] #### [facility] [address] [place] [address] 60515 Lymphocytes (Bld) [#/Vol] 0.2 E9/L Low 1.0-4.0 [facility] Comment on above: Result Comment: Yamila ection date/time has been modified to: 01:30:00. Previous collection date/time: 01:45:00. Performed By: #### 2 [id number] #### [facility] [address] [place] [address] 01000 Lymphocytes/100 WBC (Bld) 4.9 % Low 14.0-50.0 [facility] Comment on above: Result Comment: Yamila ection date/time has been modified to: 01:30:00. Previous collection date/time: 01:45:00. Performed By: #### 2 [id number] #### [facility] [address] [place] [address] MCH (RBC) [Entitic mass] 30.4 pg Normal 27.0-34.0 [facility] Comment on above: Result Comment: Yamila ection date/time has been modified to: 01:30:00. Previous collection date/time: 01:45:00. Performed By: #### 2 [id number] #### [facility] [address] [place] [address] 16318 MCHC (RBC) [Mass/Vol] 33.9 g/dL Normal 31.4-36.0 [facility] Comment on above: Result Comment: Yamlia ection date/time has been modified to: 01:30:00. Previous collection date/time: 01:45:00. Performed By: #### 2 [id number] #### [facility] [address] [place] [address] MCV (RBC) [Entitic vol] 89.7 fL Normal 80.0-100.0 [facility] Comment on above: Result Comment: Yamila ection date/time has been modified to: 01:30:00. Previous collection date/time: 01:45:00. Performed By: #### 2 [id number] #### [facility] [address] [place] [address] 82146 Monocytes (Bld) [#/Vol] 0.0 E9/L Low 0.2-1.0 [facility] Comment on above: Result Comment: Yamila ection date/time has been modified to: 01:30:00. Previous collection date/time: 01:45:00. Performed By: #### 2 [id number] #### [facility] [address] [place] [address] Neutrophils (Bld) [#/Vol] 3.4 E9/L Normal 2.0-7.5 [facility] Comment on above: Result Comment: Yamila ection date/time has been modified to: 01:30:00. Previous collection date/time: 01:45:00. Performed By: #### 2 [id number] #### [facility] [address] [place] [address] 38858 Neutrophils/100 WBC (Bld) 92.7 % High 36.0-75.0 [facility] Comment on above: Result Comment: Yamila ection date/time has been modified to: 01:30:00. Previous collection date/time: 01:45:00. Performed By: #### 2 [id number] #### [facility] [address] [place] [address] 39915 Platelet mean volume (Bld) [Entitic vol] 9.1 fL Normal 6.4-10.8 [facility] Comment on above: Result Comment: Yamila ection date/time has been modified to: 01:30:00. Previous collection date/time: 01:45:00. Performed By: #### 2 [id number] #### [facility] [address] [place] [address] 92263 Platelets (Bld) [#/Vol] 216.0 E9/L Normal 150.0-500.0 [facility] Comment on above: Result Comment: Yamila ection date/time has been modified to: 01:30:00. Previous collection date/time: 01:45:00. Performed By: #### 2 [id number] #### [facility] [address] [place] [address] 28664 RBC (Bld) [#/Vol] 3.8 E12/L Low 4.3-5.9 [facility] Comment on above: Result Comment: Yamila ection date/time has been modified to: 01:30:00. Previous collection date/time: 01:45:00. Performed By: #### 2 [id number] #### [facility] [address] [place] [address] WBC corrected for nucl RBC Auto (Bld) [#/Vol] 3.6 E9/L Low 4.0-11.0 [facility] Comment on above: Result Comment: Yamila ection date/time has been modified to: 01:30:00. Previous collection date/time: 01:45:00. Performed By: #### 2 [id number] #### [facility] [address] [place] [address] 02194 Basophils/100 WBC (Bld) 0.3 % Normal 0.0-2.0 [facility] Comment on above: Performed By: #### 2 [id number] #### [facility] [address] [place] [address] Basophils/Leukocytes Auto (Bld) [Pure # fraction] 0.0 E9/L Normal 0.0-0.2 [facility] Comment on above: Performed By: #### 2 [id number] #### [facility] [address] [place] [address] 22034 Eosinophils (Bld) [#/Vol] 0.0 E9/L Normal 0.0-0.5 [facility] Comment on above: Performed By: #### 2 [id number] #### [facility] [address] [place] [address] Eosinophils/100 WBC (Bld) 1.3 % Normal 0.0-8.0 [facility] Comment on above: Performed By: #### 2 [id number] #### [facility] [address] [place] [address] 25887 Erythrocyte distribution width (RBC) [Ratio] 14.6 % High 10.9-14.2 [facility] Comment on above: Performed By: #### 2 [id number] #### [facility] [address] [place] [address] Hematocrit (Bld) [Volume fraction] 33.7 % Low 37.7-49.0 [facility] Comment on above: Performed By: #### 2 [id number] #### [facility] [address] [place] [address] Hemoglobin (Bld) [Mass/Vol] 11.4 g/dL Low 13.5-17.5 [facility] Comment on above: Performed By: #### 2 [id number] #### [facility] [address] [place] [address] Lymphocytes (Bld) [#/Vol] 0.2 E9/L Low 1.0-4.0 [facility] Comment on above: Performed By: #### 2 [id number] #### [facility] [address] [place] [address] Lymphocytes/100 WBC (Bld) 4.9 % Low 14.0-50.0 [facility] Comment on above: Performed By: #### 2 [id number] #### [facility] [address] [place] [address] MCH (RBC) [Entitic mass] 30.4 pg Normal 27.0-34.0 [facility] Comment on above: Performed By: #### 2 [id number] #### [facility] [address] [place] [address] MCHC (RBC) [Mass/Vol] 33.9 g/dL Normal 31.4-36.0 [facility] Comment on above: Performed By: #### 2 [id number] #### [facility] [address] [place] [address] MCV (RBC) [Entitic vol] 89.7 fL Normal 80.0-100.0 [facility] Comment on above: Performed By: #### 2 [id number] #### [facility] [address] [place] [address] Monocytes (Bld) [#/Vol] 0.0 E9/L Low 0.2-1.0 [facility] Comment on above: Performed By: #### 2 [id number] #### [facility] [address] [place] [address] Neutrophils (Bld) [#/Vol] 3.4 E9/L Normal 2.0-7.5 [facility] Comment on above: Performed By: #### 2 [id number] #### [facility] [address] [place] [address] Neutrophils/100 WBC (Bld) 92.7 % High 36.0-75.0 [facility] Comment on above: Performed By: #### 2 [id number] #### [facility] [address] [place] [address] Platelet mean volume (Bld) [Entitic vol] 9.1 fL Normal 6.4-10.8 [facility] Comment on above: Performed By: #### 2 [id number] #### [facility] [address] [place] [address] Platelets (Bld) [#/Vol] 216.0 E9/L Normal 150.0-500.0 [facility] Comment on above: Performed By: #### 2 [id number] #### [facility] [address] [place] [address] RBC (Bld) [#/Vol] 3.8 E12/L Low 4.3-5.9 [facility] Comment on above: Performed By: #### 2 [id number] #### [facility] [address] [place] [address] WBC corrected for nucl RBC Auto (Bld) [#/Vol] 3.6 E9/L Low 4.0-11.0 [facility] Comment on above: Performed By: #### 2 [id number] #### [facility] [address] [place] [address] 57660 CHEMISTRYOrdered By: Anushka Lopez on 10-05-2023 HbA1c (Bld) [Mass fraction] 7.6 % High <=5.9% [facility]AutoSS CHEMISTRYOrdered By: SYSTEM SYSTEM on 10-05-2023 Procalcitonin 15.35 ng/mL High 0.00 - 0.50 ng/mL [facility] Comment on above: Interpretive Data: < 0.5 ng/mL Low risk of severe sepsis and/or shock >2.0 ng/mL High risk of severe sepsis and/or shock Concentrations under 0.5 ng/mL do not exclude local infections or systemic infections in their initial stages (e.g.. under six hours from onset of illness). PCT concentrations between 0.5 and 2.0 ng/mL should be interpreted with consideration of the patient's history. In this range, it is recommended to retest PCT within 6 to 24 hours. Troponin HS 18.10 pg/mL Normal 15.90 - 38.40 pg/mL [facility] Comment on above: Interpretive Data: T he 95% CI (Confidence Interval) PPV (Positive Predictive Value) for myocardial infarction in females is 38 pg/mL, in males 51 pg/mL. The results should be used in conjunction with clinical conditions of myocardial infarction. (Access High Sensitivity Troponin I Instructions For Use, [employer], October 2017) Lactic Acid Lvl 1.3 mmol/L Normal 0.5 - 2.2 mmol/L [facility] Troponin HS 16.50 pg/mL Normal 15.90 - 38.40 pg/mL [facility] Comment on above: Interpretive Data: T he 95% CI (Confidence Interval) PPV (Positive Predictive Value) for myocardial infarction in females is 38 pg/mL, in males 51 pg/mL. The results should be used in conjunction with clinical conditions of myocardial infarction. (Access High Sensitivity Troponin I Instructions For Use, [employer], October 2017) CHEMISTRYOrdered By: Tiki Purdy on 10-05-2023 Natriuretic peptide B (Bld) [Mass/Vol] pg/mL Normal 5 - 80 pg/mL [facility] HemeManSS COAGULATIONOrdered By: Otis Purdy on 10-05-2023 aPTT Coag (PPP) [Time] 37.9 s High 25.1 - 36.5 second(s) [facility] Comment on above: Interpretive Data: P arameter 15 days - 4 weeks 1 - 5 months 6 - 11 months 1 - 5 years 6 - 10 years 11 - 17 years PTT Mean: 35.4 (27.6-45.6) Mean: 33.5 (24.8-40.7) Mean: 32.4 (25.1-40.7) Mean: 31.6 (24.0-39.2) Mean: 31.6 (26.9-38.7) Mean: 31.0 (24.6-38.4) Pediatric Reference ranges were obtained from a study by jeri Obrien al. prepared from 1437 samples obtained at 7 different centers using the same coagulation reagent and instrumentation as [facility]. Currently there are no coagulation studies available worldwide for children to 14 days, and no normal ranges. Heparin therapeutic range (represented by Anti-Factor Xa activity of 0.2 - 0.4 U/mL) corresponds to PTT of 56.6 - 109.0 sec. Result Comment: Yamila ection date/time has been modified to: 01:30:00. Previous collection date/time: 01:45:00. INR Coag (PPP) [Relative time] 1.06 {INR} Invalid Interpretation Code [facility] Comment on above: Interpretive Data: I NR results are specifically intended to assess patients stabilized on long-term Anticoagulation therapy suggested INR s Less Intensive Anticoagulation 2.0 3.0 Conventional Range 3.0 4.5 Result Comment: Yamila ection date/time has been modified to: 01:30:00. Previous collection date/time: 01:45:00. PT Coag (PPP) [Time] 11.9 s Normal 9.4 - 1 2.5 second(s) [facility] Comment on above: Interpretive Data: 1 5 days - 4 weeks 1 - 5 months 6 -11 months 1-5 years 6-10 years 11 -17 years Mean: 11.2 (9.5-12.6) Mean: 11.0 (9.7-12.8) Mean: 11.0 (9.8-13.0) Mean: 11.3 (9.9-13.4) Mean: 11.7 (10.0-14.6) Mean: 11.8 (10.0 - 14.1) Pediatric Reference ranges were obtained from a study by [place], et al. prepared from 1437 samples obtained at 7 different centers using the same coagulation reagent and instrumentation as [facility]. Currently there are no coagulation studies available worldwide for children to 14 days, and no normal ranges. Result Comment: Yamila ection date/time has been modified to: 01:30:00. Previous collection date/time: 01:45:00. CTA [place] 10-05-2023 CTA Chest Exam Date/Time: 10/05/2023 15:17 EDT Reason for Exam: Shortness of breath (SOB) Report IMPRESSION: NO EVIDENCE OF PULMONARY EMBOLI. VERY SMALL RIGHT PLEURAL EFFUSION. NO OTHER SIGNIFICANT CHANGES FROM 02/03/2023. EXAM: CTA Chest DATE: 10/05/2023 3:07 PM CLINICAL HISTORY: Shortness of breath (SOB). COMPARISON: 02/03/2023 TECHNIQUE: Spiral enhanced images were obtained of the chest after the infusion of approximately 70 mL of Isovue 370 contrast with pulmonary artery CTA protocol. Routine and volume rendered images were performed on a three-dimensional workstation. All CT scans at this facility use dose modulation, iterative reconstruction, and/or weight based dosing when appropriate to reduce radiation dose to as low as reasonably achievable. Unless otherwise stated, incidental findings identified in this report do not require routine follow-up imaging. FINDINGS: Pulmonary arteries: Normal in caliber without filling defects identified to suggest pulmonary emboli. Thoracic aorta: Normal in caliber with minimal to mild atherosclerotic plaquing. There is no dissection. Heart: Not enlarged. Coronary artery calcifications are present. No significant pericardial effusion. Mediastinum and lymph nodes: No pathologically enlarged mediastinal, hilar, or axillary lymph nodes. Lungs and pleura: Very small right pleural effusion and mild probable dependent atelectasis. Stable mild subpleural scarring and 5 mm noncalcified left upper lobe nodule (image 55 - axial series 5). No focal consolidation, left pleural effusion, or pneumothorax. Thyroid: Unremarkable. Esophagus: Unremarkable. Musculoskeletal: No acute osseous findings identified. Chronic deformities of the anterior left third through sixth ribs, degenerative changes, and spinal stimulator leads, unchanged. Upper abdomen: Noncontributory. Report Ordering Provider: Kathi CARIAS FINAL REPORT Dictated: 10/05/2023 3:34 pm Raghav Meléndez MD Signed (Electronic Signature): 10/05/2023 3:34 pm Signed by: Raghav Meléndez MD Transcribed by: MIKIE Technologist: SHIRLEY Technical Comments GFR (mL/min/1/73m2) 43 Contrast: Isovue 370 Contrast amount in ml's: 70 Normal [facility] Capillary Glucose POCon 09-09 Glucose [Mass/Vol] 305 mg/dL High 55-99 [facility] Comment on above: Result Comment: Ty GONZALEZ Performed By: #### 2 [id number] #### [facility] [address] [place] [address] Glucose [Mass/Vol] 374 mg/dL High 55-99 [facility] Comment on above: Result Comment: Ty GONZALEZ Performed By: #### 2 [id number] #### [facility] [address] [place] [address] Glucose [Mass/Vol] 397 mg/dL High 55-99 [facility] Comment on above: Result Comment: Ty GONZALEZ Performed By: #### 2 [id number] #### [facility] [address] [place] [address] Glucose [Mass/Vol] 317 mg/dL High 55-99 [facility] Comment on above: Result Comment: Ty GONZALEZ Performed By: #### 2 [id number] #### [facility] [address] [place] [address] ED Clinical Summaryon 2023 ED Clinical Summary ED Clinical Summary [place] [id number] ED Clinical Summary Person Information Name: ALTAGRACIA CONWAY Dinesh [place] Age: 68 Years : 1955 Sex: Male Language: Argentine PCP: TIKI DOCKERY DO Marital Status: Visit Id: Visit Reason: Chills; Cough; Shortness of breath; sob Speciality: Acuity: 2 Enc Type: Inpatient Med Service: Emergency Arrival: 10/05/2023 01:11:30 Discharge: LOS: 000 03:11 Checkin: 10/05/2023 01:11:30 Checkout: 10/05/2023 04:22:52 Dispo Type: Admitted as IP to this [facility] EVENTS: Event Name Event Status Request Date/Time Start Date/Time Complete Date/Time Arrive Complete 10/05/2023 01:11:30 10/05/2023 01:11:30 10/05/2023 01:11:30 Document Home Meds Request 10/05/2023 01:11:30 Triage Complete 10/05/2023 01:11:30 10/05/2023 01:21:18 10/05/2023 01:21:18 No Visitors Request 10/05/2023 01:12:39 Dr Exam Complete 10/05/2023 01:12:57 10/05/2023 01:12:57 10/05/2023 01:12:57 Registration Complete 10/05/2023 01:12:57 10/05/2023 01:13:15 10/05/2023 01:14:14 EKG Complete 10/05/2023 01:13:08 10/05/2023 01:17:23 Bed Assign Complete 10/05/2023 01:13:15 10/05/2023 01:13:15 10/05/2023 01:13:15 RN Exam Complete 10/05/2023 01:13:15 10/05/2023 01:35:23 10/05/2023 01:35:23 Reg Complete Request 10/05/2023 01:14:14 Pending Labs Inlab 10/05/2023 01:20:50 Lab Inlab 10/05/2023 01:20:50 Meds Admin Request 10/05/2023 01:20:50 Patient Care Complete 10/05/2023 01:20:50 10/05/2023 01:35:34 X-Ray Complete 10/05/2023 01:20:50 10/05/2023 01:52:25 10/05/2023 02:01:14 RT Request 10/05/2023 01:20:50 RT Tx/ABG Request 10/05/2023 01:20:51 RT Tx/ABG Request 10/05/2023 01:20:51 30 Day Return Request 10/05/2023 01:21:19 Meds Admin Complete 10/05/2023 01:23:39 10/05/2023 01:33:59 Pending Labs Complete 10/05/2023 01:24:28 10/05/2023 02:22:40 RT Tx/ABG Request 10/05/2023 01:24:28 Pending Labs Complete 10/05/2023 01:45:11 10/05/2023 01:45:11 10/05/2023 02:10:17 Lab Complete 10/05/2023 01:45:11 10/05/2023 01:45:11 10/05/2023 02:10:17 Possible SIRS Request 10/05/2023 01:55:25 Wet Read Request 10/05/2023 02:01:14 Meds Admin Complete 10/05/2023 02:30:59 10/05/2023 04:07:00 Consult Request 10/05/2023 02:39:20 Hospitalist Consult Request 10/05/2023 02:39:25 Meds Admin Complete 10/05/2023 02:39:25 10/05/2023 04:06:59 Patient Care Request 10/05/2023 02:43:18 Meds Admin Request 10/05/2023 02:43:18 RT Request 10/05/2023 02:43:18 Bed Request Request 10/05/2023 02:43:18 Reg Bed Request Request 10/05/2023 02:43:18 Admit Request 10/05/2023 02:43:18 Pending Labs Request 10/05/2023 02:43:18 Lab Request 10/05/2023 02:43:18 RT Tx/ABG Request 10/05/2023 02:43:19 RT Tx/ABG Request 10/05/2023 02:43:19 RT Tx/ABG Request 10/05/2023 02:43:19 RT Tx/ABG Request 10/05/2023 02:43:20 Meds Admin Request 10/05/2023 02:44:08 Patient Care Request 10/05/2023 02:48:44 Patient Care Request 10/05/2023 02:48:45 Patient Care Request 10/05/2023 02:48:45 Patient Care Request 10/05/2023 02:48:45 Medicare Form Complete 10/05/2023 02:48:46 10/05/2023 02:59:58 Patient Care Request 10/05/2023 02:48:46 Patient Care Request 10/05/2023 02:48:46 Pending Labs Complete 10/05/2023 03:51:26 10/05/2023 03:51:26 10/05/2023 04:14:13 Meds Admin Request 10/05/2023 04:16:44 ADDRESS: [address] [place] [id number] PHYS DOC NOTES: MEDICAL INFORMATION: Prescriptions Given: Medications to Continue with No Changes Other Medications albuterol (Ventolin HFA 90 mcg/inh Aerosol-Adpt) 1 Puffs Inhalation every 4 hours. amitriptyline 50 Milligram By Mouth at bedtime. amlodipine 10 Milligram By Mouth every day. aspirin (Adult Aspirin 81 mg oral tablet, chewable) 1 Tablets Chewed every day. atorvastatin 10 Milligram By Mouth. busPIRone (busPIRone 10 mg Tab) 3 Tablets By Mouth every day. doxepin 100 Milligram By Mouth. ergocalciferol (Vitamin D) 50 Microgram By Mouth. fluticasone-vilanterol (Breo Ellipta 100 mcg-25 mcg inhalation powder) 1 Puffs Inhalation every day. 30 dose unit. fluticasone-vilanterol (Breo Ellipta) fluticasone-vilanterol (Breo Ellipta) Inhalation every day. furosemide 20 Milligram By Mouth every day. hydrochlorothiazide (hydrochlorothiazide 25 mg Tab) 1 Tablets By Mouth every day. Hold this medication until po intake improves. insulin aspart insulin degludec 30 units qAM. insulin glargine 20 Units Subcutaneous 2 times a day. insulin lispro 0-10 units Subcutaneous four times a day (before meals and at bedtime). levomilnacipran (Fetzima 20 mg oral capsule, extended release) levomilnacipran (Fetzima) 60 Milligram By Mouth every day. lisinopril 10 Milligram By Mouth. lorazepam (Ativan 0.5 mg Tab) 1 Tablets By Mouth once a day (in the morning). lorazepam (Ativan 1 mg Tab) 1 Tablets By Mouth at bedtime. losartan (losartan 50 mg Tab) 2 Tablets By Mouth every day. Hold for sbp 110 or less. metoprolol (Metop (more content not included)... Normal [facility] ED Note-Physicianon 10-05-19 ED Note-Physician ED Note-Physician Basic Information Time Seen: Chelsea Ortiz DO 10/05/2023 01:12 Chief Complaint pt to ED with c/o SOB. dry mouth noted. cough noted. states CP intermittenty for 3 years. hx of COPD, not on home O2, speaking in short sentences. states CA survivor with R chest port in place. denies known fevers, c/o chills. History of Present Illness Patient is a 68-year-old male with past medical history of COPD not on home oxygen, hypertension, hyperlipidemia, diabetes, hepatitis C presented to the ED for evaluation of shortness of breath, cough. Patient states that he has been having shortness of breath since yesterday, progressively worse and is having associated chills. Patient denies any nausea or vomiting, denies any dizziness or lightheadedness. Patient states he has been increasingly weak has been having difficulty getting up at home due to the shortness of breath. Patient also notes he has been having chest pain has been intermittent for the last 3 years, not currently having any chest pain however states he was having pain earlier in the day. Review of Systems A 10 point review of systems is negative except as noted above. Medical and Surgical History: Reviewed and noted Social history: Lives at home Tobacco: Denies Physical Exam Vitals & Measurements T: 37.5 ?C(Oral) HR: 130(Peripheral) RR: 22 BP: 165/69 SpO2: 93% HT: 187 cm WT: 103.0 kg BMI: 29.45 General: Well developed, non toxic appearing, no acute distress HEENT: Head atraumatic, Mucosa moist, hearing grossly normal Neck: No JVD, tracheal deviation Cardiac: Tachycardic, regular rhythm no murmurs, or gallops, 2+ radial pulses Respiratory: End expiratory wheezing noted on examination, tachypneic Abdomen: Soft non tender, no rebound or guarding, no peritoneal signs Extremities: No edema noted in the LE B/L, no tenderness to palpation Neurologic: Alert and oriented, speech clear Skin: No rashes or lesions Psych: Appropriate mood and behavior Medical Decision Making MEDICAL DECISION MAKING Number and Complexity of Problems Differential Diagnosis: [] [facility] Data External documents reviewed: [] My EKG interpretation: [] My CT interpretation: [] My X-ray interpretation: [] My Ultrasound interpretation: [] Decision rules/scores evaluated: [] Discussed with: [] Treatment and Disposition ED Course: Patient is a 68-year-old male presenting to the ED for evaluation of shortness of breath. Patient is tachycardic on initial arrival otherwise in no acute distress. Does have diminished breath sounds on auscultation bilaterally. Laboratory evaluation is obtained, patient is given DuoNebs, Solu-Medrol in the ED for treatment of his symptoms. Patient's laboratory evaluation reveals leukopenia with a white blood cell count of 3.6, creatinine is elevated 1.6 this is around patient's baseline, bicarb mildly low at 20, blood gas was a mixed sample with a pH of 7.4, pCO2 of 33 and a pO2 of 32. Chest x-ray reveals no focal infiltrates, patient did become hypoxic 88% on room air placed on supplemental oxygen. Discussed findings with patient he is agreeable to admission to the hospital. Discussed the findings with the hospitalist who accepts the patient for admission. Shared decision making: [] Code status: [] Assessment/Plan COPD exacerbation (J44.1: Chronic obstructive pulmonary disease with (acute) exacerbation) Hypoxia (R09.02: Hypoxemia) Orders: acetaminophen, 975 mg = 3 tab(s), Tab, Oral, Once, Stop date 10/05/23 1:23:00 EDT, STAT, Start date 10/05/23 1:23:00 EDT, 10/05/23 1:23:00 EDT albuterol-ipratropium, 9 mL, Soln-Inh, Inhalation, Once, Stop date 10/05/23 1:19:00 EDT, STAT, Start date 10/05/23 1:19:00 EDT azithromycin + Sodium Chloride 0.9% intravenous solution 250 mL, 500 mg = 1 EA, IV Piggyback, Once, Stop date 10/05/23 2:39:00 EDT, STAT, Start date 10/05/23 2:39:00 EDT, 250 mL/hr, Infuse over 60 minute(s), 10/05/23 2:39:00 EDT lorazepam, 1 mg = 0.5 mL, Injection, IV Push, Once, Stop date 10/05/23 3:00:00 EDT, Routine, Start date 10/05/23 3:00:00 EDT, 10/05/23 2:30:00 EDT methylPREDNISolone, 125 mg = 2 mL, Injection, IV Push, Once, Stop date 10/05/23 1:19:00 EDT, STAT, Start date 10/05/23 1:19:00 EDT, 10/05/23 1:19:00 EDT Sodium Chloride 0.9% intravenous solution 1,000 mL, 1,000 mL, IV, 983.61 mL/hr, for 30 day(s), Stop date 11/04/23 1:19:00 EDT, STAT, Start date 10/05/23 1:20:00 EDT, 61 minute(s), Total volume (mL): 1,000, 98.8 kg, 2.27, m2 B-Type Natriuretic Peptide Basic Metabolic Panel Blood Culture Charcoal Blood Culture Charcoal Blood Gas Art, with Lytes, Gluc, Lact CBC w/ Auto Diff Continuous Pulse Oximetry ECG 12 Lead Adult ED Cardiac Monitoring ED Physician consult Hospitalist for continued care eGFR Lactic Acid Oxygen Therapy PT & PTT Rapid COVID Antigen ([facility] Saline Lock Insert Troponin 0 Hr. Troponin 1 Hr. XR Chest Single View Medications Administered Given So (more content not included)... Normal [facility] Comment on above: Result Comment: Elec tronically Signed By: Chelsea Ortiz DO\.br\Date and Time Signed: 10/05/23 02:40 EDT ED Patient Education Noteon 10-05-2023 ED Patient Education Note ED Patient Education Note Normal [facility] ED Patient Summaryon 024 ED Patient Summary ED Patient Summary [address] [address] Patient Discharge Instructions Person Information Name: ALTAGRACIA CONWAY Age: 68 Years Arrival Date: 10/05/2023 01:11:30 Discharge Diagnosis: 1:COPD exacerbation; 2:Acute respiratory failure with hypoxia; 3:Smoker; 4:Anxiety; 5:HTN (hypertension); 6:Hyperlipidemia; 7:DM2 (diabetes mellitus, type 2); 8:History of pancreatic cancer; 9:CKD (chronic kidney disease), stage III; 10:On deep vein thrombosis (DVT) prophylaxis; Hypoxia Primary Care Physician: TIKI DOCKERY DO Provider Information Primary Provider: Chelsea Ortiz DO Advanced Crawler Tractor Operator:None The exam and treatment you received in the Emergency Department were for an urgent problem and are not intended as complete care. It is important that you follow up with a doctor, nurse practitioner, or physician?s library services assistant for ongoing care. If your symptoms become worse or you do not improve as expected and you are unable to reach your usual health care provider, you should return to the Emergency Department. We are available 24 hours a day. ALTAGRACIA CONWAY has been given the following list of patient education materials, prescriptions and follow-up instructions: Follow-up Instructions: In the event that this physician does not participate in your insurance network, please consult with your insurance company to find a nearby participating provider. Patient Education Materials: A MESSAGE TO ALL PATIENTS REGARDING OPIOIDS PRESCRIPTION OPIOIDS: WHAT YOU NEED TO KNOW Prescription opioids can be used to help relieve yfvfmaeu-wj-wbaale pain and are often prescribed following a surgery or injury, or for certain health conditions. These medications can be an important part of the treatment but also come with serious risks. It is important to work with your healthcare provider to make sure you are getting the safest, most effective care. WHAT ARE THE RISKS AND SIDE EFFECTS OF OPIOID USE? Prescription opioids carry serious risks of addiction and overdose, especially with prolonged use. An opioid overdose, often marked by slowed breathing, can cause sudden . The use of prescription opioids can have a number of side effects as well, even when taken as directed: ? Tolerance?meaning you might need to take more of the medication for the same pain relief ? Physical dependence?meaning you have symptoms of withdrawal when a medication is stopped ? Increased sensitivity to pain ? Constipation ? Nausea, vomiting, and dry mouth ? Sleepiness and dizziness ? Confusion ? Depression ? Low levels of testosterone that can result in lower sex drive, energy, and strength ? Itching and sweating RISKS ARE GREATER WITH: ? History of drug misuse, substance use disorder, or overdose ? Mental health conditions (such as depression or anxiety) ? Sleep apnea ? Older age (65 years and older) ? Avoid alcohol while taking prescription opioids. Also, unless specifically advised by your health care provider, medications to avoid include: ? Benzodiazepines (such as Xanax or Valium) ? Muscle relaxants (such as Soma or Flexeril) ? Hypnotics (such as Ambien or Lunesta) ? Other prescription opioids KNOW YOUR OPTIONS Talk to your health care provider about ways to manage your pain that don?t involve prescription opioids. Some of these options may actually work better and have fewer risks and side effects. Options may include: ? Pain relievers such as acetaminophen, ibuprofen, and naproxen ? Some medication that are also used for depression or seizures ? Physical therapy and exercise ? Cognitive behavioral therapy, a psychological, goal-directed approach, in which patients learn how to modify physical, behavioral, and emotional triggers of pain and stress. IF YOU ARE PRESCRIBED OPIOIDS FOR PAIN: ? Never take opioids in greater amounts or more often than prescribed. ? Follow up with your primary health care provider. o Work together to create a plan on how to manage your pain. o Talk about ways to help manage your pain that don?t involve prescription opioids. o Talk about any and all concerns and side effects. ? Help prevent misuse and abuse o Never sell or share prescription opioids. o Never use another person?s prescription opioids. ? Store prescription opioids in a secure place and out of reach of others (this may include visitors, children, friends, and family). ? Safely dispose of unused prescription opioids: Find your community drug take-back program or your pharmacy mail-back program, or flush them down the toilet, following guidance from the Food and Drug Administration (www.fda.gov/Drugs/Reso urcesForYou). ? Visit www.cdc.gov/drugoverdos e to learn about the risks of opioids abuse and overdose. ? If you believe you may be struggling with addiction, tell you (more content not included)... Normal [facility] FT Blood GasesOrdered By: Risa Goldstein on 10-05-2023 a/A Ratio Art 30.00 % Normal >=0.80% FT Resp Auto SS AaDO2 Art 75.7 mm[Hg] High 5.0 - 15.0 mmHg FT Resp Auto SS Allens Test Positive (10/05/23 1:42 AM) Normal [facility] Resp Auto SS Base Excess Arterial -3.3 mmol/L Low >=2.8mmol/L FT Resp Auto SS cCa2+ Art 4.90 mg/dL Normal 4.40 - 5.30 mg/dL FT Resp Auto SS cCl- Art 107.0 mmol/L Normal 101.0 - 111.0 mmol/L FT Resp Auto SS cGlu Art 189 mg/dL High 55 - 99 mg/dL FT Resp Auto SS cK+ Art 5.1 mmol/L Normal 3.5 - 5.3 mmol/L FT Resp Auto SS cLac Art 1.4 mmol/L Normal 0.5 - 2.2 mmol/L FT Resp Auto SS container finishing inspector+ Art 133.0 mmol/L Low 135.0 - 145.0 mmol/L [facility] Resp Auto SS Drawn by wmb Invalid Interpretation Code [facility] Resp Auto SS FCOHb Art 2.1 % Normal 1.5 - 4.9 % [facility] Resp Auto SS Comment on above: Interpretive Data: R eference range Nonsmoker <1.5% Smoker <5.0% Heavy Smoker <9.0% FIO2 BG 21 1 Invalid Interpretation Code [facility] Resp Auto SS FMetHb Art 0.7 % Normal 0.0 - 1.9 % FT Resp Auto SS FO2Hb Art 64.1 % Invalid Interpretation Code 93.0 - 100.0 % [facility] Resp Auto SS Comment on above: Result Comment: Resu lts Called To Chelsea Ortiz By Carmen goldstein And Read Back For Confirmation On 10/05/2023 02:22:36 EDT. HCO3 (Bld) [Moles/Vol] 21.1 mmol/L Low 22.0 - 26.0 mmol/L [facility] Resp Auto SS Hemoglobin (Bld) [Mass/Vol] 11.9 g/dL Low 12.0 - 17.0 gm/dL [facility] Resp Auto SS P CO2 Arterial 33.7 mm[Hg] Low 35.0 - 45.0 mmHg [facility] Resp Auto SS P O2 Arterial 32.4 mm[Hg] Invalid Interpretation Code 80.0 - 100.0 mmHg [facility] Resp Auto SS Comment on above: Result Comment: Resu lts Called To Chelsea Ortiz By Carmen goldstein And Read Back For Confirmation On 10/05/2023 02:22:36 EDT. pH (Bld) 7.400 [pH] Normal 7.350 - 7.450 [facility] Resp Auto SS Sample Site R Radial (10/05/23 1:42 AM) Normal [facility] Resp Auto SS Sample Type Mixed Venous (10/05/23 1:42 AM) Normal [facility] Resp Auto SS HEMATOLOGYOrdered By: SYSTEM SYSTEM on 10-05-2023 Basophils/100 WBC (Bld) 0.2 % Normal 0.0 - 2.0 % Remisol Heme Basophils/Leukocytes Auto (Bld) [Pure # fraction] 0.0 E9/L Normal 0.0 - 0.2 E9/L [facility] Heme Eosinophils (Bld) [#/Vol] 0.0 E9/L Normal 0.0 - 0.5 E9/L [facility]e Eosinophils/100 WBC (Bld) 0.0 % Normal 0.0 - 8.0 % [facility] Heme Lymphocytes (Bld) [#/Vol] 0.3 E9/L Low 1.0 - 4.0 E9/L [facility]e Lymphocytes/100 WBC (Bld) 3.6 % Low 14.0 - 50.0 % [facility] Heme Monocytes (Bld) [#/Vol] 0.7 E9/L Normal 0.2 - 1.0 E9/L [facility]e Monocytes/100 WBC (Bld) 7.1 % Normal 4.0 - 14.0 % [facility] Heme Neutrophils (Bld) [#/Vol] 8.5 E9/L High 2.0 - 7.5 E9/L [facility] Neutrophils/100 WBC (Bld) 89.1 % High 36.0 - 75.0 % [facility] Laboratory - Microbiology an d Antimicrobial susceptibilityOrdered By: Nissa Santo on 10-05-2023 Bacteria identified Respiratory culture Nom (Sput) 1+ Normal upper respiratory ninfa isolated [facility] Lactic Acidon 10-05-2023 Lactic Acid Lvl 1.3 mmol/L Normal 0.5-2.2 [facility] Comment on above: Performed By: #### [id number] #### [facility] [address] [place] [address] MICRO OTHER TESTSOrdered By: Tiki Purdy on 10-05-2023 Rapid COV Int NEG Ctl Pass (10/05/23 1:23 AM) Normal FT Man Sero Rapid COV Int POS Ctl Pass (10/05/23 1:23 AM) Normal [facility] Man Sero SARS-CoV+SARS-CoV-2 (COVID-19) Ag IA.rapid Ql (Resp) Not Detected 17 (10/05/23 1:23 AM) Normal Not Detected [facility] Sero Comment on above: Interpretive Data: Simon [place] SNAPP' Veritor System for Rapid Detection of SARS-CoV-2 is a chromatographic digital immunoassay intended for the direct and qualitative detection of SARS-CoV-2 nucleocapsid antigens in nasal swabs from individuals who are suspected of COVID-19 by their healthcare provider within the first five days of the onset of symptoms. Negative results should be treated as presumptive, do not rule out SARS-CoV-2 infection and should not be used as the sole basis for treatment or patient management decisions, including infection control decisions. Negative results should be considered in the context of a patient s recent exposures, history and the presence of clinical signs and symptoms consistent with COVID-19, and confirmed with a molecular assay, if necessary, for patient management. For in vitro diagnostic use. In the [facility], only for use under an Emergency Use Authorization. In the [place], this test has not been FDA cleared or approved; this test has been authorized by FDA under an EUA for use by authorized laboratories; use by laboratories certified under the CLIA, 42 U.S.C. 263a, that meet requirements to perform moderate, high, or waived complexity tests and at the Point of Care (POC), i.e., in patient care settings operating under a CLIA Certificate of Waiver, Certificate of Compliance, or Certificate of Accreditation. This test has been authorized only for the detection of proteins from SARS-CoV-2, not for any other viruses or pathogens; and, in the [place], this test is only authorized for the duration of the declaration that circumstances exist justifying the authorization of emergency use of in vitro diagnostics for detection and/or diagnosis of the virus that causes COVID-19 under Section 564(b)(1) of the Act, 21 U.S.C. 360bbb-3(b)(1), unless the authorization is terminated or revoked sooner. No Panel InformationOrdered By: Nissa Santo on 10-05-2023 GS 1+ White Blood Cells Occasional epithelial cells Occasional Gram Positive Cocci [facility] PT & PTTon 10-05-2023 aPTT Coag (PPP) [Time] 37.9 second(s) High 25.1-36.5 [facility] Comment on above: Result Comment: Para meter 15 days - 4 weeks 1 - 5 months 6 - 11 months 1 - 5 years 6 - 10 years 11 - 17 years PTT Mean: 35.4 (27.6-45.6) Mean: 33.5 (24.8-40.7) Mean: 32.4 (25.1-40.7) Mean: 31.6 (24.0-39.2) Mean: 31.6 (26.9-38.7) Mean: 31.0 (24.6-38.4) Pediatric Reference ranges were obtained from a study by [place] et al. prepared from 1437 samples obtained at 7 different centers using the same coagulation reagent and instrumentation as [facility]. Currently there are no coagulation studies available worldwide for children to 14 days, and no normal ranges. Heparin therapeutic range (represented by Anti-Factor Xa activity of 0.2 - 0.4 U/mL) corresponds to PTT of 56.6 - 109.0 sec. Collection date/time has been modified to: 01:30:00. Previous collection date/time: 01:45:00. Performed By: #### [id number] #### [facility] [address] [place] [address] INR Coag (PPP) [Relative time] 1.06 {INR} Invalid Interpretation Code [facility] Comment on above: Result Comment: INR results are specifically intended to assess patients stabilized on long-term Anticoagulation therapy suggested INR?s ?Less Intensive Anticoagulation? 2.0 ? 3.0 Conventional Range 3.0 ? 4.5 Collection date/time has been modified to: 01:30:00. Previous collection date/time: 01:45:00. Performed By: #### [id number] #### [facility] [address] [place] [address] PT Coag (PPP) [Time] 11.9 second(s) Normal 9.4-12.5 [facility] Comment on above: Result Comment: 15 d ays - 4 weeks 1 - 5 months 6 -11 months 1-5 years 6-10 years 11 -17 years Mean: 11.2 (9.5-12.6) Mean: 11.0 (9.7-12.8) Mean: 11.0 (9.8-13.0) Mean: 11.3 (9.9-13.4) Mean: 11.7 (10.0-14.6) Mean: 11.8 (10.0 - 14.1) Pediatric Reference ranges were obtained from a study by chucky Obrien prepared from 1437 samples obtained at 7 different centers using the same coagulation reagent and instrumentation as [facility]. Currently there are no coagulation studies available worldwide for children to 14 days, and no normal ranges. Collection date/time has been modified to: 01:30:00. Previous collection date/time: 01:45:00. Performed By: #### 1 [id number] #### [facility] [address] [place] [address] aPTT Coag (PPP) [Time] 37.9 second(s) High 25.1-36.5 [facility] Comment on above: Result Comment: Para meter 15 days - 4 weeks 1 - 5 months 6 - 11 months 1 - 5 years 6 - 10 years 11 - 17 years PTT Mean: 35.4 (27.6-45.6) Mean: 33.5 (24.8-40.7) Mean: 32.4 (25.1-40.7) Mean: 31.6 (24.0-39.2) Mean: 31.6 (26.9-38.7) Mean: 31.0 (24.6-38.4) Pediatric Reference ranges were obtained from a study by [place], et al. prepared from 1437 samples obtained at 7 different centers using the same coagulation reagent and instrumentation as [facility]. Currently there are no coagulation studies available worldwide for children to 14 days, and no normal ranges. Heparin therapeutic range (represented by Anti-Factor Xa activity of 0.2 - 0.4 U/mL) corresponds to PTT of 56.6 - 109.0 sec. Performed By: #### 1 [id number] #### [facility] [address] [place] [address] INR Coag (PPP) [Relative time] 1.06 {INR} Invalid Interpretation Code [facility] Comment on above: Result Comment: INR results are specifically intended to assess patients stabilized on long-term Anticoagulation therapy suggested INR?s ?Less Intensive Anticoagulation? 2.0 ? 3.0 Conventional Range 3.0 ? 4.5 Performed By: #### 1 [id number] #### [facility] [address] [place] [address] PT Coag (PPP) [Time] 11.9 second(s) Normal 9.4-12.5 [facility] Comment on above: Result Comment: 15 d ays - 4 weeks 1 - 5 months 6 -11 months 1-5 years 6-10 years 11 -17 years Mean: 11.2 (9.5-12.6) Mean: 11.0 (9.7-12.8) Mean: 11.0 (9.8-13.0) Mean: 11.3 (9.9-13.4) Mean: 11.7 (10.0-14.6) Mean: 11.8 (10.0 - 14.1) Pediatric Reference ranges were obtained from a study by jeri Obrien al. prepared from 1437 samples obtained at 7 different centers using the same coagulation reagent and instrumentation as [facility]. Currently there are no coagulation studies available worldwide for children to 14 days, and no normal ranges. Performed By: #### 1 [id number] #### [facility] [address] [place] [address] Procalcitoninon 10-05-2023 Procalcitonin 15.35 ng/mL High .00-.50 [facility] Comment on above: Result Comment: <0.5 ng/mL Low risk of severe sepsis and/or shock >2.0 ng/mL High risk of severe sepsis and/or shock Concentrations under 0.5 ng/mL do not exclude local infections or systemic infections in their initial stages (e.g.. under six hours from onset of illness). PCT concentrations between 0.5 and 2.0 ng/mL should be interpreted with consideration of the patient's history. In this range, it is recommended to retest PCT within 6 to 24 hours. Performed By: #### 2 [id number] #### [facility] [address] [place] [address] Rapid COVID Antigen ([facility])on 10-05-2023 Rapid COV Int NEG Ctl Pass Normal [facility] Comment on above: Performed By: #### 2 [id number] #### [facility] [address] [place] [address] Rapid COV Int POS Ctl Pass Normal [facility] Comment on above: Performed By: #### 2 [id number] #### [facility] [address] [place] [address] SARS-CoV+SARS-CoV-2 (COVID-19) Ag IA.rapid Ql (Resp) Not detected Normal Not Detected [facility] Comment on above: Result Comment: The OraMetrixitor? System for Rapid Detection of SARS-CoV-2 is a chromatographic digital immunoassay intended for the direct and qualitative detection of SARS-CoV-2 nucleocapsid antigens in nasal swabs from individuals who are suspected of COVID-19 by their healthcare provider within the first five days of the onset of symptoms. Negative results should be treated as presumptive, do not rule out SARS-CoV-2 infection and should not be used as the sole basis for treatment or patient management decisions, including infection control decisions. Negative results should be considered in the context of a patient?s recent exposures, history and the presence of clinical signs and symptoms consistent with COVID-19, and confirmed with a molecular assay, if necessary, for patient management. For in vitro diagnostic use. In the [place], only for use under an Emergency Use Authorization. In the [place], this test has not been FDA cleared or approved; this test has been authorized by FDA under an EUA for use by authorized laboratories; use by laboratories certified under the CLIA, 42 U.S.C. ?263a, that meet requirements to perform moderate, high, or waived complexity tests and at the Point of Care (POC), i.e., in patient care settings operating under a CLIA Certificate of Waiver, Certificate of Compliance, or Certificate of Accreditation. This test has been authorized only for the detection of proteins from SARS-CoV-2, not for any other viruses or pathogens; and, in the [facility], this test is only authorized for the duration of the declaration that circumstances exist justifying the authorization of emergency use of in vitro diagnostics for detection and/or diagnosis of the virus that causes COVID-19 under Section 564(b)(1) of the Act, 21 U.S.C. ? 360bbb-3(b)(1), unless the authorization is terminated or revoked sooner. Performed By: #### 2 [id number] #### [facility] [address] [place] [address] Respiratory Panel by PCRon 0 10-05-2023 Adenovirus DNA ANN+non-probe Ql (Nph) Not detected Normal [facility] Comment on above: Result Comment: Test ing was performed using nucleic acid amplification including Influenza A, Influenza A H1, Influenza A H3, Influenza B, RSV A, RSV B, Adenovirus, Human Metapneumovirus, Parainfluenza 1,2,3, and 4, Rhinovirus, Bordetella parapertussis/bronchiseptica, Bordetella holmesii, and Bordetella pertussis. Performed By: #### 1 [id number] #### [facility] [address] [place] [address] B. parapertussis DNA ANN+probe Ql (Upper resp) Not detected Normal Not Detected [facility] Comment on above: Performed By: #### 1 [id number] #### [facility] [address] [place] [address] B. pertussis DNA ANN+probe Ql (Upper resp) Not detected Normal Not Detected [facility] Comment on above: Performed By: #### 1 [id number] #### [facility] [address] [place] [address] FLUAV H1 RNA ANN+non-probe Ql (Nph) Not detected Normal [facility] Comment on above: Performed By: #### 1 [id number] #### [facility] [address] [facility] [place] [address] FLUAV H3 RNA ANN+non-probe Ql (Nph) Not detected Normal [facility] Comment on above: Performed By: #### 1 [id number] #### [facility] [address] [place] [address] FLUAV RNA ANN+non-probe Ql (Nph) Not detected Normal [facility] Comment on above: Performed By: #### 1 [id number] #### [facility] [address] [place] [address] FLUBV RNA ANN+non-probe Ql (Nph) Not detected Normal [facility] Comment on above: Performed By: #### 1 [id number] #### [facility] [address] [place] [address] Human Metapneumovirus Not detected Normal [facility] Comment on above: Result Comment: This test result should be correlated with clinical presentations and medical history by a healthcare provider to determine its clinical significance. Performed By: #### 1 [id number] #### [facility] [address] [place] [address] Parainfluenza virus 1 RNA ANN+non-probe Ql (Nph) Not detected Normal [facility] Comment on above: Performed By: #### 1 [id number] #### [facility] [address] [place] [address] Parainfluenza virus 2 RNA ANN+non-probe Ql (Nph) Not detected Normal [facility] Comment on above: Performed By: #### 1 [id number] #### [facility] [address] [place] [address] Parainfluenza virus 3 RNA ANN+non-probe Ql (Nph) Not detected Normal [facility] Comment on above: Performed By: #### 1 [id number] #### [facility] [address] [place] [address] Parainfluenza virus 4 RNA ANN+non-probe Ql (Nph) Not detected Normal [facility] Comment on above: Performed By: #### 1 [id number] #### [facility] [address] [place] [address] Resp Panel Intrl QC Pass Normal [facility] Comment on above: Performed By: #### 1 [id number] #### [facility] [address] [place] [address] Rhinovirus+Enterovirus RNA ANN+non-probe Ql (Nph) Not detected Normal [facility] Comment on above: Performed By: #### 1 [id number] #### [facility] [address] [place] [address] RSV RNA ANN+non-probe Ql (Nph) Not detected Normal [facility] Comment on above: Performed By: #### 1 [id number] #### [facility] [address] [place] [address] TOBRAMYCIN:SUSC:PT:ISOLATE:O RDQN:MICOrdered By: Nissa Santo on 10-05-2023 Tobramycin DEVIN [Susc] Escherichia coli In 2 of 2 blood culture bottles drawn. Isolated from aerobic and anaerobic bottles Preliminary gram stain result of gram negative rods Result called to [facility] by [facility] and results read back for confirmation on 10/05/2023 17:56:10 [facility] Tobramycin DEVIN [Susc] Escherichia coli In 2 of 2 blood culture bottles drawn. Isolated from aerobic and anaerobic bottles Preliminary gram stain result of gram negative rods Result called to [facility] by [facility] and results read back for confirmation on 10/05/2023 17:57. [facility] Tobramycin DEVIN [Susc]Ordered By: Nissa Santo on 10-05-2023 Escherichia coli Escherichia coli [facility] Escherichia coli Escherichia coli [facility] Troponin 0 Hr.on 10-05-2023 Troponin HS 16.50 pg/mL Normal 15.90-38.40 [facility] Comment on above: Result Comment: The 95% CI (Confidence Interval) PPV (Positive Predictive Value) for myocardial infarction in females is 38 pg/mL, in males 51 pg/mL. The results should be used in conjunction with clinical conditions of myocardial infarction. (Access High Sensitivity Troponin I Instructions For Use, [employer], October 2017) Performed By: #### 1 [id number] #### [facility] [address] [place] [address] Troponin 1 Hr.on 10-05-2023 Troponin HS 18.10 pg/mL Normal 15.90-38.40 [facility] Comment on above: Order Comment: due a t 230 Pt has a port, debra tripp is aware. [id number] 10/05/2023 02:28:58 EDT Result Comment: The 95% CI (Confidence Interval) PPV (Positive Predictive Value) for myocardial infarction in females is 38 pg/mL, in males 51 pg/mL. The results should be used in conjunction with clinical conditions of myocardial infarction. ([email or web address] High Sensitivity Troponin I Instructions For Use, [employer], October 2017) Performed By: #### 1 [id number] #### [facility] [address] [place] [address] UA with Cult Rflxon 10-05-19 24 Bilirubin Ql (U) Negative Normal Negative [facility] Comment on above: Performed By: #### 4 [id number] #### [facility] [address] [place] [address] Clarity (U) Clear Normal Clear [facility] Comment on above: Performed By: #### 4 [id number] #### [facility] [address] [place] [address] Color (U) Light-Yellow Normal Yellow [facility] Comment on above: Result Comment: Micr oscopic readings are only performed on those samples that meet specific criteria set forth by [facility]. Performed By: #### 4 [id number] #### [facility] [address] [place] [address] Epithelial cells.squamous Auto (Urine sed) [#/Area] 0-2 Invalid Interpretation Code [facility] Comment on above: Performed By: #### 4 [id number] #### [facility] [address] [place] [address] Glucose Ql (U) 4+ mg/dL Abnormal Negative [facility] Comment on above: Performed By: #### 4 [id number] #### [facility] [address] [place] [address] Hemoglobin Auto test strip (U) [Mass/Vol] Negative Normal Negative [facility] Comment on above: Performed By: #### 4 [id number] #### [facility] [address] [place] [address] Ketones Auto test strip Ql (U) Negative Normal Negative [facility] Comment on above: Performed By: #### 4 [id number] #### [facility] [address] [place] [address] Leukocyte esterase Auto test strip Ql (U) 25 Derick/uL Normal Negative [facility] Comment on above: Performed By: #### 4 [id number] #### [facility] [address] [place] [address] Mucus Auto Ql (U) Negative Normal Negative [facility] Comment on above: Performed By: #### 4 [id number] #### [facility] [address] [place] [address] Nitrite Auto test strip Ql (U) Negative Normal Negative [facility] Comment on above: Performed By: #### 4 [id number] #### [facility] [address] [place] [address] pH (U) 5.0 [pH] Invalid Interpretation Code 5.0-9.0 [facility] Comment on above: Performed By: #### 4 [id number] #### [facility] [address] [place] [address] Protein Ql (U) Trace Abnormal Negative [facility] Comment on above: Performed By: #### 4 [id number] #### [facility] [address] [place] [address] RBC Ql (U) 0-3 Normal 0-3 [facility] Comment on above: Performed By: #### 4 [id number] #### [facility] [address] [place] [address] Specific gravity (U) [Rel density] 1.014 Invalid Interpretation Code 1.005-1.030 [facility] Comment on above: Performed By: #### 4 [id number] #### [facility] [address] [place] [address] Urobilinogen (U) [Mass/Vol] Negative Normal Negative [facility] Comment on above: Performed By: #### 4 [id number] #### [facility] [address] [place] [address] WBC Auto (Urine sed) [#/Area] 0-5 Normal 0-5 [facility] Comment on above: Performed By: #### 4 [id number] #### [facility] [address] [id number] Type of Urine collection method Clean Catch Normal [facility] Comment on above: Performed By: #### 4 [id number] #### [facility] [address] [place] [address] URINALYSISOrdered By: SYSTEM SYSTEM on 10-05-2023 Bilirubin Ql (U) Negative Normal Negativemg/ d L [facility] UA Auto SS Clarity (U) Clear (10/05/23 11:26 AM) Normal Clear [facility] UA Auto SS Color (U) Light-Yellow 1 (10/05/23 11:26 AM) Normal Yellow [facility] UA Auto SS Comment on above: Interpretive Data: M icroscopic readings are only performed on those samples that meet specific criteria set forth by [facility]. Epithelial cells.squamous Auto (Urine sed) [#/Area] 0-2 graded/HPF Invalid Interpretation Code [facility] UA Auto SS Glucose Ql (U) 4+ mg/dL Invalid Interpretation Code Negativemg/d L [facility] UA Auto SS Hemoglobin Auto test strip (U) [Mass/Vol] Negative Normal Negativemg/d L [facility] UA Auto SS Ketones Auto test strip Ql (U) Negative Normal Negativemg/d L [facility] UA Auto SS Leukocyte esterase Auto test strip Ql (U) 25 Derick/uL Derick/uL Normal NegativeLeu/ uL [facility] UA Auto SS Mucus Auto Ql (U) Negative Normal Negativegr ad ed/LPF [facility] UA Auto SS Nitrite Auto test strip Ql (U) Negative Normal Negativemg/d L [facility] UA Auto SS pH (U) 5.0 *NA* (10/05/23 11:26 AM) Invalid Interpretation Code 5.0 - 9.0 [facility] UA Auto SS Protein Ql (U) Trace mg/dL Invalid Interpretation Code Negativemg/d L [facility] UA Auto SS RBC Ql (U) 0-3 graded/HPF Normal 0-3graded/HP F [facility] UA Auto SS Specific gravity (U) [Rel density] 1.014 *NA* (10/05/23 11:26 AM) Invalid Interpretation Code 1.005 - 1.030 [facility] UA Auto SS Urobilinogen (U) [Mass/Vol] Negative Normal Negativemg/d L [facility] UA Auto SS WBC Auto (Urine sed) [#/Area] 0-5 graded/HPF Normal 0-5graded/HP F [facility] UA Auto SS URINALYSISOrdered By: Aristides CARIAS on 10-05-2023 UA Spec Desc Clean Catch (10/05/23 11:26 AM) Normal [facility] UA Auto SS XR Chest Single Viewon 10-04 XR Chest Single View Exam Date/Time: 10/05/2023 02:01 EDT Reason for Exam: Difficulty breathing Report IMPRESSION: NO EVIDENCE OF ACTIVE CARDIOPULMONARY DISEASE, BY PORTABLE CHEST RADIOGRAPHY. EXAM: XR Chest Single View DATE: 10/05/2023 1:52 AM CLINICAL HISTORY: Difficulty breathing. COMPARISON: Portable chest and chest CTA 02/03/2023, and CT abdomen and pelvis 09/19/2023. TECHNIQUE: A portable upright AP radiograph of the chest was obtained. FINDINGS: There is no developing infiltrate, pleural effusion, vascular congestion, pneumothorax, cardiomegaly, or displaced fractures identified. A right internal jugular approach infusion port is again noted. Ordering Provider: Chelsea Ortiz FINAL REPORT Dictated: 10/05/2023 11:39 am Raghav Meléndez MD Signed (Electronic Signature): 10/05/2023 11:39 am Signed by: Raghav Meléndez MD Transcribed by: DP Technologist: VAIBHAV Technical Comments Radiation Dose: Ka,r in mGy = n/a DAP = n/a Normal [facility] eGFRon 10-05-2023 eGFR 43 mL/min/1.73 m2 Low >=59 [facility] Comment on above: Order Comment: Order added by Discern Expert. Performed By: #### 1 [id number] #### [facility] [address] [place] [address] eGFR 47 mL/min/1.73 m2 Low >=59 [facility] Comment on above: Order Comment: Order added by Discern Expert. Performed By: #### 1 [id number] #### [facility] [address] [place] [address] C Urineon 09-22-2023 Bacteria identified Cx Nom (U) Microbiology PROCEDURE: Urine Culture [R1] SOURCE: U CleanCatch BODY SITE: COLLECTED DATE/TIME: 09/20/2023 10:01 EDT RECEIVED DATE/TIME: 09/20/2023 10:23 EDT START DATE/TIME: 09/20/2023 10:23 EDT FREE TEXT SOURCE: Mainor Hamilton DO, DO, Noah S. FINAL REPORTS Final Report [] Verified Date/Time: 09/22/2023 07:10 EDT 200 cfu/ml Mixed skin contaminants Performing Locations R1: This test was performed at: [facility], [address] [place] [address], [phone] , , [facility] Comment on above: Performed By: #### 2 [id number] #### [facility] [address] [place] [address] BMPon 09-21-2023 Anion gap [Moles/Vol] 11 mmol/L Normal 6-16 [facility] Comment on above: Performed By: #### 2 [id number] #### [facility] [address] [place] [address] Calcium [Mass/Vol] 8.8 mg/dL Low 8.9-11.1 [facility] Comment on above: Performed By: #### 2 [id number] #### [facility] [address] [place] [address] Chloride [Moles/Vol] 108 mmol/L Normal 101-111 [facility] Comment on above: Performed By: #### 2 [id number] #### [facility] [address] [place] [address] CO2 [Moles/Vol] 22 mmol/L Normal 21-31 [facility] Comment on above: Performed By: #### 2 [id number] #### [facility] [address] [place] [address] Creatinine [Mass/Vol] 1.4 mg/dL High 0.5-1.3 [facility] Comment on above: Performed By: #### 2 [id number] #### [facility] [address] [place] [address] Glucose [Mass/Vol] 124 mg/dL Normal 55-199 [facility] Comment on above: Performed By: #### 2 [id number] #### [facility] [address] [place] [address] Potassium [Moles/Vol] 4.3 mmol/L Normal 3.5-5.3 [facility] Comment on above: Performed By: #### 2 [id number] #### [facility] [address] [place] [address] Sodium [Moles/Vol] 137 mmol/L Normal 135-145 [facility] Comment on above: Performed By: #### 2 [id number] #### [facility] [address] [place] [address] Urea nitrogen [Mass/Vol] 27 mg/dL High 5-21 [facility] Comment on above: Performed By: #### 2 [id number] #### [facility] [address] [place] [address] Urea nitrogen/Creatinine [Mass ratio] 19 No Units Normal 10-20 [facility] Comment on above: Performed By: #### 2 [id number] #### [facility] [address] [place] [address] CBC w/ Auto Diffon 4 Basophils/100 WBC (Bld) 0.6 % Normal 0.0-2.0 [facility] Comment on above: Performed By: #### 2 [id number] #### [facility] [address] [place] [address] Basophils/Leukocytes Auto (Bld) [Pure # fraction] 0.1 E9/L Normal 0.0-0.2 [facility] Comment on above: Performed By: #### 2 [id number] #### [facility] [address] [place] [address] Eosinophils (Bld) [#/Vol] 0.4 E9/L Normal 0.0-0.5 [facility] Comment on above: Performed By: #### 2 [id number] #### [facility] [address] [place] [address] Eosinophils/100 WBC (Bld) 3.3 % Normal 0.0-8.0 [facility] Comment on above: Performed By: #### 2 [id number] #### [facility] [address] [place] [address] Erythrocyte distribution width (RBC) [Ratio] 14.4 % High 10.9-14.2 [facility] Comment on above: Performed By: #### 2 [id number] #### [facility] [address] [place] [address] Hematocrit (Bld) [Volume fraction] 31.1 % Low 37.7-49.0 [facility] Comment on above: Performed By: #### 2 [id number] #### [facility] [address] [place] [address] Hemoglobin (Bld) [Mass/Vol] 10.8 g/dL Low 13.5-17.5 [facility] Comment on above: Performed By: #### 2 [id number] #### [facility] [address] [place] [address] Lymphocytes (Bld) [#/Vol] 1.5 E9/L Normal 1.0-4.0 [facility] Comment on above: Performed By: #### 2 [id number] #### [facility] [address] [place] [address] Lymphocytes/100 WBC (Bld) 13.7 % Low 14.0-50.0 [facility] Comment on above: Performed By: #### 2 [id number] #### [facility] [address] [place] [address] MCH (RBC) [Entitic mass] 30.6 pg Normal 27.0-34.0 [facility] Comment on above: Performed By: #### 2 [id number] #### [facility] [address] [place] [address] MCHC (RBC) [Mass/Vol] 34.8 g/dL Normal 31.4-36.0 [facility] Comment on above: Performed By: #### 2 [id number] #### [facility] [address] [place] [address] MCV (RBC) [Entitic vol] 87.9 fL Normal 80.0-100.0 [facility] Comment on above: Performed By: #### 2 [id number] #### [facility] [address] [place] [address] Monocytes (Bld) [#/Vol] 0.6 E9/L Normal 0.2-1.0 [facility] Comment on above: Performed By: #### 2 [id number] #### [facility] [address] [place] [address] Neutrophils (Bld) [#/Vol] 8.2 E9/L High 2.0-7.5 [facility] Comment on above: Performed By: #### 2 [id number] #### [facility] [address] [place] [address] Neutrophils/100 WBC (Bld) 77.2 % High 36.0-75.0 [facility] Comment on above: Performed By: #### 2 [id number] #### [facility] [address] [place] [address] Platelet 140.0 E9/L Low 150.0-500.0 [facility] Comment on above: Performed By: #### 2 [id number] #### [facility] [address] [place] [address] Platelet mean volume (Bld) [Entitic vol] 8.5 fL Normal 6.4-10.8 [facility] Comment on above: Performed By: #### 2 [id number] #### [facility] [address] [place] [address] RBC (Bld) [#/Vol] 3.5 E12/L Low 4.3-5.9 [facility] Comment on above: Performed By: #### 2 [id number] #### [facility] [address] [place] [address] WBC corrected for nucl RBC Auto (Bld) [#/Vol] 10.7 E9/L Normal 4.0-11.0 [facility] Comment on above: Performed By: #### 2 [id number] #### [facility] [address] [place] [address] CHEMISTRYOrdered By: Lab ROP User on 09-21-2023 Glucose [Mass/Vol] 133 mg/dL High 55 - 99 mg/dL [facility] Subsection Comment on above: Result Comment: Ty lester RN/ POC Device SN [id number] 1 Invalid Interpretation Code [facility] Subsection POC User ID [id number] 1 Invalid Interpretation Code [facility] Subsection POC Username RADHA AGUILAR Invalid Interpretation Code [facility] Subsection CHEMISTRYOrdered By: SYSTEM SYSTEM on 09-21-2023 Anion gap [Moles/Vol] 11 mmol/L Normal 6 - 16 mEq/L R emisol Chem Calcium [Mass/Vol] 8.8 mg/dL Low 8.9 - 11. 1 mg/dL Remisol Chem Chloride [Moles/Vol] 108 mmol/L Normal 101 - 1 11 mmol/L Remisol Chem CO2 [Moles/Vol] 22 mmol/L Normal 21 - 31 mmol/L Remisol Chem Creatinine [Mass/Vol] 1.4 mg/dL High 0.5 - 1.3 mg/dL Remisol Chem eGFR 55 mL/min/1.73 m2 Low >=59mL/min /1 .73 m2 Remisol Chem Glucose [Mass/Vol] 124 mg/dL Normal 55 - 199 mg/dL Remisol Chem Magnesium [Mass/Vol] 1.8 mg/dL Normal 1.3 - 2 .4 mg/dL Remisol Chem Phosphate [Mass/Vol] 2.4 mg/dL Normal 1.9 - 4 .6 mg/dL Remisol Chem Potassium [Moles/Vol] 4.3 mmol/L Normal 3.5 - 5.3 mmol/L Remisol Chem Sodium [Moles/Vol] 137 mmol/L Normal 135 - 145 mmol/L Remisol Chem Urea nitrogen [Mass/Vol] 27 mg/dL High 5 - 21 mg/dL Remisol Chem Urea nitrogen/Creatinine [Mass ratio] 19 mg/mg Normal 10 - 20 Remisol Chem Capillary Glucose POCon 09-08 Glucose [Mass/Vol] 133 mg/dL High 55-99 [facility] Comment on above: Result Comment: Ty lester RN/ Performed By: #### 2 [id number] #### [facility] [address] [place] [address] HEMATOLOGYOrdered By: SYSTEM SYSTEM on 09-21-2023 Basophils/100 WBC (Bld) 0.6 % Normal 0.0 - 2.0 % Remisol Heme Basophils/Leukocytes Auto (Bld) [Pure # fraction] 0.1 E9/L Normal 0.0 - 0.2 E9/L Remisol Heme Eosinophils (Bld) [#/Vol] 0.4 E9/L Normal 0.0 - 0.5 E9/L Remisol Heme Eosinophils/100 WBC (Bld) 3.3 % Normal 0.0 - 8.0 % Remisol Heme Erythrocyte distribution width (RBC) [Ratio] 14.4 % High 10.9 - 14.2 % Remisol Heme Hematocrit (Bld) [Volume fraction] 31.1 % Low 37.7 - 49.0 % Remisol Heme Hemoglobin (Bld) [Mass/Vol] 10.8 g/dL Low 13.5 - 17.5 gm/dL Remisol Heme Lymphocytes (Bld) [#/Vol] 1.5 E9/L Normal 1.0 - 4.0 E9/L Remisol Heme Lymphocytes/100 WBC (Bld) 13.7 % Low 14.0 - 50.0 % Remisol Heme MCH (RBC) [Entitic mass] 30.6 pg Normal 27.0 - 34.0 pg Remisol Heme MCHC (RBC) [Mass/Vol] 34.8 g/dL Normal 31.4 - 36.0 gm/dL Remisol Heme MCV (RBC) [Entitic vol] 87.9 fL Normal 80.0 - 100.0 fL Remisol Heme Monocytes (Bld) [#/Vol] 0.6 E9/L Normal 0.2 - 1.0 E9/L Remisol Heme Monocytes/100 WBC (Bld) 5.2 % Normal 4.0 - 14.0 % Remisol Heme Neutrophils (Bld) [#/Vol] 8.2 E9/L High 2.0 - 7.5 E9/L Remisol Heme Neutrophils/100 WBC (Bld) 77.2 % High 36.0 - 75.0 % Remisol Heme Platelet 140.0 E9/L Low 150.0 - 500.0 E9/L Remisol Heme Platelet mean volume (Bld) [Entitic vol] 8.5 fL Normal 6.4 - 10.8 fL Remisol Heme RBC (Bld) [#/Vol] 3.5 E12/L Low 4.3 - 5.9 E12/L Remisol Heme WBC corrected for nucl RBC Auto (Bld) [#/Vol] 10.7 E9/L Normal 4.0 - 11.0 E9/L Remisol Heme Inpatient Patient Summaryon 09-21-2023 Inpatient Patient Summary Inpatient Patient Summary ALTAGRACIA CONWAY :1955 Visit Date:09/19/2023 Inpatient Discharge Instructions Your Care Team Admitting Physician - Jesse Angelo DO Reason for Your Visit abd pain/ bloody stools Your Diagnosis Lower GI bleed Colitis, Proctocolitis Acute abdominal pain Abdominal pain GI bleeding Nausea Vomiting Tests Performed CT Abdomen/Pelvis w/ Contrast This Is Your Medications List albuterol (Ventolin HFA 90 mcg/inh Aerosol-Adpt) amitriptyline amlodipine aspirin (Adult Aspirin 81 mg oral tablet, chewable) atorvastatin busPIRone (busPIRone 10 mg Tab) ciprofloxacin (Cipro 500 mg Tab) doxepin ergocalciferol (Vitamin D) fluticasone-vilanterol (Breo Ellipta 100 mcg-25 mcg inhalation powder) fluticasone-vilanterol (Breo Ellipta) fluticasone-vilanterol (Breo Ellipta) furosemide hydrochlorothiazide (hydrochlorothiazide 25 mg Tab) insulin aspart insulin degludec insulin glargine insulin lispro levomilnacipran (Fetzima 20 mg oral capsule, extended release) levomilnacipran (Fetzima) lisinopril lorazepam (Ativan 0.5 mg Tab) lorazepam (Ativan 1 mg Tab) losartan (losartan 50 mg Tab) metoprolol (Metoprolol tartrate 25 mg Tab) metronidazole (Flagyl 500 mg Tab) mirtazapine pancrelipase pancrelipase (Creon 36,000 units oral delayed release capsule) pantoprazole (Pantoprazole [address] Tab) polyethylene glycol 3350 (Miralax 3350 17 gram packet) pregabalin (pregabalin 150 mg Cap) tamsulosin (tamsulosin 0.4 mg Cap) Procedure History 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 Discharge Vitals Temperature (Oral) 36.8 ?C Heart Rate (Monitored) 66 Respiratory Rate 16 Blood Pressure 160/79 Weight 98.7 kg What to do next Instructions From Your Doctor Event Name Event Result Discharge Activity Ambulate as tolerated Discharge Diet(s) Regular Pending Diagnostic Test Results None Discharge Instructions Please take additional oral antibiotics at home. Take the full course even if you start to feel better before they are gone. Previously Scheduled Follow-Up Appointments Saturday 10:00 AM EDT With: Donna Jonhson Where: [facility] Inpatient Patient Summary Inpatient Patient Summary ALTAGRACIA CONWAY :1955 Visit Date:09/19/2023 Inpatient Discharge Instructions Your Care Team Admitting Physician - Jesse Angelo DO Reason for Your Visit abd pain/ bloody stools Your Diagnosis Lower GI bleed Colitis, Proctocolitis Acute abdominal pain Abdominal pain GI bleeding Nausea Vomiting Tests Performed CT Abdomen/Pelvis w/ Contrast This Is Your Medications List albuterol (Ventolin HFA 90 mcg/inh Aerosol-Adpt) amitriptyline amlodipine aspirin (Adult Aspirin 81 mg oral tablet, chewable) atorvastatin busPIRone (busPIRone 10 mg Tab) ciprofloxacin (Cipro 500 mg Tab) doxepin ergocalciferol (Vitamin D) fluticasone-vilanterol (Breo Ellipta 100 mcg-25 mcg inhalation powder) fluticasone-vilanterol (Breo Ellipta) fluticasone-vilanterol (Breo Ellipta) furosemide hydrochlorothiazide (hydrochlorothiazide 25 mg Tab) insulin aspart insulin degludec insulin glargine insulin lispro levomilnacipran (Fetzima 20 mg oral capsule, extended release) levomilnacipran (Fetzima) lisinopril lorazepam (Ativan 0.5 mg Tab) lorazepam (Ativan 1 mg Tab) losartan (losartan 50 mg Tab) metoprolol (Metoprolol tartrate 25 mg Tab) metronidazole (Flagyl 500 mg Tab) mirtazapine pancrelipase pancrelipase (Creon 36,000 units oral delayed release capsule) pantoprazole (Pantoprazole [address] Tab) polyethylene glycol 3350 (Miralax 3350 17 gram packet) pregabalin (pregabalin 150 mg Cap) tamsulosin (tamsulosin 0.4 mg Cap) Procedure History 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 Discharge Vitals Temperature (Oral) 36.8 ?C Heart Rate (Monitored) 66 Respiratory Rate 16 Blood Pressure 160/79 Weight 98.7 kg What to do next Instructions From Your Doctor Event Name Event Result Discharge Activity Ambulate as tolerated Discharge Diet(s) Regular Pending Diagnostic Test Results None Discharge Instructions Please take additional oral antibiotics at home. Take the full course even if you start to feel better before they are gone. Previously Scheduled Follow-Up Appointments Saturday 10:00 AM EDT With: Alfredo COLE, Donna Leonardo Where: [facility] Normal [facility] Magnesiumon 09-21-2023 Magnesium [Mass/Vol] 1.8 mg/dL Normal 1.3-2.4 [facility] Comment on above: Order Comment: line packet was given to the nurse. [email or web address] 09/21/2023 05:56:16 EDT Performed By: #### 2 [id number] #### [facility] [address] [place] [address] Phosphoruson 09-21-2023 Phosphate [Mass/Vol] 2.4 mg/dL Normal 1.9-4.6 [facility] Comment on above: Performed By: #### 2 [id number] #### [facility] [address] [place] [address] eGFRon 09-21-2023 eGFR 55 mL/min/1.73 m2 Low >=59 [facility] Comment on above: Order Comment: Order added by Discern Expert. Performed By: #### 1 [id number] #### [facility] [address] [place] [address] BMPon 09-20-2023 Anion gap [Moles/Vol] 12 mmol/L Normal 6-16 [facility] Comment on above: Performed By: #### 2 [id number] #### [facility] [address] [place] [address] Calcium [Mass/Vol] 8.9 mg/dL Normal 8.9-11.1 [facility] Comment on above: Performed By: #### 2 [id number] #### [facility] [address] [place] [address] Chloride [Moles/Vol] 105 mmol/L Normal 101-111 [facility] Comment on above: Performed By: #### 2 [id number] #### [facility] [address] [place] [address] CO2 [Moles/Vol] 22 mmol/L Normal 21-31 [facility] Comment on above: Performed By: #### 2 [id number] #### [facility] [address] [place] [address] Creatinine [Mass/Vol] 1.4 mg/dL High 0.5-1.3 [facility] Comment on above: Performed By: #### 2 [id number] #### [facility] [address] [place] [address] Glucose [Mass/Vol] 139 mg/dL Normal 55-199 [facility] Comment on above: Performed By: #### 2 [id number] #### [facility] [address] [place] [address] Potassium [Moles/Vol] 4.6 mmol/L Normal 3.5-5.3 [facility] Comment on above: Performed By: #### 2 [id number] #### [facility] [address] [place] [address] Sodium [Moles/Vol] 134 mmol/L Low 135-145 [facility] Comment on above: Performed By: #### 2 [id number] #### [facility] [address] [place] [address] Urea nitrogen [Mass/Vol] 37 mg/dL High 5-21 [facility] Comment on above: Performed By: #### 2 [id number] #### [facility] [address] [place] [address] Urea nitrogen/Creatinine [Mass ratio] 26 No Units High 10-20 [facility] Comment on above: Performed By: #### 2 [id number] #### [facility] [address] [place] [address] C. diff by PCRon 09-20-2023 Clostridium difficile by PCR Negative Normal Negative [facility] Comment on above: Order Comment: Order added by Discern Expert. Result Comment: This test result should be correlated with clinical presentations and medical history by a healthcare provider to determine its clinical significance. Performed By: #### 4 [id number] #### [facility] [address] [place] [address] CBC w/ Auto Diffon 4 Basophils/100 WBC (Bld) 0.2 % Normal 0.0-2.0 [facility] Comment on above: Performed By: #### 2 [id number] #### [facility] [address] [place] [address] Basophils/Leukocytes Auto (Bld) [Pure # fraction] 0.0 E9/L Normal 0.0-0.2 [facility] Comment on above: Performed By: #### 2 [id number] #### [facility] [address] [place] [address] Eosinophils (Bld) [#/Vol] 0.2 E9/L Normal 0.0-0.5 [facility] Comment on above: Performed By: #### 2 [id number] #### [facility] [address] [place] [address] Eosinophils/100 WBC (Bld) 1.2 % Normal 0.0-8.0 [facility] Comment on above: Performed By: #### 2 [id number] #### [facility] [address] [place] [address] Erythrocyte distribution width (RBC) [Ratio] 14.5 % High 10.9-14.2 [facility] Comment on above: Performed By: #### 2 [id number] #### [facility] [address] [place] [address] Hematocrit (Bld) [Volume fraction] 34.4 % Low 37.7-49.0 [facility] Comment on above: Performed By: #### 2 [id number] #### [facility] [address] [place] [address] Hemoglobin (Bld) [Mass/Vol] 11.9 g/dL Low 13.5-17.5 [facility] Comment on above: Performed By: #### 2 [id number] #### [facility] [address] [place] [address] Lymphocytes (Bld) [#/Vol] 1.6 E9/L Normal 1.0-4.0 [facility] Comment on above: Performed By: #### 2 [id number] #### [facility] [address] [place] [address] Lymphocytes/100 WBC (Bld) 10.0 % Low 14.0-50.0 [facility] Comment on above: Performed By: #### 2 [id number] #### [facility] [address] [place] [address] MCH (RBC) [Entitic mass] 30.2 pg Normal 27.0-34.0 [facility] Comment on above: Performed By: #### 2 [id number] #### [facility] [address] [place] [address] MCHC (RBC) [Mass/Vol] 34.5 g/dL Normal 31.4-36.0 [facility] Comment on above: Performed By: #### 2 [id number] #### [facility] [address] [place] [address] MCV (RBC) [Entitic vol] 87.8 fL Normal 80.0-100.0 [facility] Comment on above: Performed By: #### 2 [id number] #### [facility] [address] [place] [address] Monocytes (Bld) [#/Vol] 0.9 E9/L Normal 0.2-1.0 [facility] Comment on above: Performed By: #### 2 [id number] #### [facility] [address] [place] [address] Neutrophils (Bld) [#/Vol] 12.9 E9/L High 2.0-7.5 [facility] Comment on above: Performed By: #### 2 [id number] #### [facility] [address] [place] [address] Neutrophils/100 WBC (Bld) 83.0 % High 36.0-75.0 [facility] Comment on above: Performed By: #### 2 [id number] #### [facility] [address] [place] [address] Platelet 161.0 E9/L Normal 150.0-500.0 [facility] Comment on above: Performed By: #### 2 [id number] #### [facility] [address] [place] [address] Platelet mean volume (Bld) [Entitic vol] 9.1 fL Normal 6.4-10.8 [facility] Comment on above: Performed By: #### 2 [id number] #### [facility] [address] [place] [address] RBC (Bld) [#/Vol] 3.9 E12/L Low 4.3-5.9 [facility] Comment on above: Performed By: #### 2 [id number] #### [facility] [address] [place] [address] WBC corrected for nucl RBC Auto (Bld) [#/Vol] 15.6 E9/L High 4.0-11.0 [facility] Comment on above: Performed By: #### 2 [id number] #### [facility] [address] [place] [address] CHEMISTRYOrdered By: Lab ROP User on 09-20-2023 Glucose [Mass/Vol] 121 mg/dL High 55 - 99 mg/dL [facility] Subsection Comment on above: Result Comment: Ty lester RN/ POC Device SN [id number] 1 Invalid Interpretation Code FT POC Subsection POC User ID [id number] 1 Invalid Interpretation Code [facility] P[facility] Subsection POC Username YOUNG [email or web address] Invalid Interpretation Code [facility] P[facility] Subsection Glucose [Mass/Vol] 152 mg/dL High 55 - 99 mg/dL [facility] Subsection Comment on above: Result Comment: Ty lester RN/ POC Device SN [id number] 1 Invalid Interpretation Code FT POC Subsection POC User ID [id number] 1 Invalid Interpretation Code [facility] Subsection POC Username VLADIMIR FUENTES Invalid Interpretation Code [facility] P[facility] Subsection CHEMISTRYOrdered By: SYSTEM SYSTEM on 09-20-2023 Anion gap [Moles/Vol] 12 mmol/L Normal 6 - 16 mEq/L R emisol Chem Calcium [Mass/Vol] 8.9 mg/dL Normal 8.9 - 11. 1 mg/dL Remisol Chem Chloride [Moles/Vol] 105 mmol/L Normal 101 - 1 11 mmol/L Remisol Chem CO2 [Moles/Vol] 22 mmol/L Normal 21 - 31 mmol/L Remisol Chem Creatinine [Mass/Vol] 1.4 mg/dL High 0.5 - 1.3 mg/dL Remisol Chem eGFR 55 mL/min/1.73 m2 Low >=59mL/min /1 .73 m2 Remisol Chem Glucose [Mass/Vol] 139 mg/dL Normal 55 - 199 mg/dL Remisol Chem Magnesium [Mass/Vol] 1.9 mg/dL Normal 1.3 - 2 .4 mg/dL Remisol Chem Phosphate [Mass/Vol] 2.9 mg/dL Normal 1.9 - 4 .6 mg/dL Remisol Chem Potassium [Moles/Vol] 4.6 mmol/L Normal 3.5 - 5.3 mmol/L Remisol Chem Sodium [Moles/Vol] 134 mmol/L Low 135 - 145 mmol/L Remisol Chem Urea nitrogen [Mass/Vol] 37 mg/dL High 5 - 21 mg/dL Remisol Chem Urea nitrogen/Creatinine [Mass ratio] 26 mg/mg High 10 - 20 Remisol Chem Capillary Glucose POCon 09-08 Glucose [Mass/Vol] 121 mg/dL High 55-99 [facility] Comment on above: Result Comment: Ty GONZALEZ Performed By: #### 2 [id number] #### [facility] [address] [place] [address] Glucose [Mass/Vol] 152 mg/dL High 55-99 [facility] Comment on above: Result Comment: Ty GONZALEZ Performed By: #### 2 [id number] #### [facility] [address] [place] [address] Enteric Panel by PCRon 09-19 C. coli+jejuni+upsaliensis DNA ANN+non-probe Ql (Stl) Not detected Normal [facility] Comment on above: Result Comment: Test ing was performed utilizing reverse lead nuclear medicine technologist (RT), polymerase chain reaction (PCR), and array hybridization to detect specific gastrointestinal microbial nucleic acid gene sequences associated with the following pathogenic bacteria and viruses:Campylobacter Group (composed of C. coli, C. jejuni, and C. danielle), Salmonella species, Shigella species (including S. dysenteriae, S. boydii, S. sonnei and S. flexneri), Vibrio Group (composed of V. cholera and V. parahaemolyticus), Yersinia enterocolitica, Norovirus GI/GII, and Rotavirus A. In addition, EPdetects Shiga toxin 1 gene and Shiga toxin 2 gene virulence markers. Shiga toxin producing E. coli (STEC) typically harbor one or both genes that encode for Shiga toxins 1 and 2. Campylobacter group, Salmonella species, Shigella species, Vibrio group, Rotavirus A, Shiga Toxin 1, Shiga Toxin 2, Norovirus GI/GII, and Yersinia enterocolitica were tested by Verigene nulcleic acid test. Performed By: #### 1 [id number] #### [facility] [address] [place] [address] E. coli stx1+stx2 genes ANN+non-probe Ql (Stl) Negative Normal [facility] Comment on above: Performed By: #### 1 [id number] #### [facility] [address] [place] [address] Enteric Panel Intrl QC Pass Normal [facility] Comment on above: Result Comment: Test ing was performed utilizing reverse lead nuclear medicine technologist (RT), polymerase chain reaction (PCR), and array hybridization to detect specific gastrointestinal microbial nucleic acid gene sequences associated with the following pathogenic bacteria and viruses:Campylobacter Group (composed of C. coli, C. jejuni, and C. danielle), Salmonella species, Shigella species (including S. dysenteriae, S. boydii, S. sonnei and S. flexneri), Vibrio Group (composed of V. cholera and V. parahaemolyticus), Yersinia enterocolitica, Norovirus GI/GII, and Rotavirus A. In addition, EPdetects Shiga toxin 1 gene and Shiga toxin 2 gene virulence markers. Shiga toxin producing E. coli (STEC) typically harbor one or both genes that encode for Shiga toxins 1 and 2. Performed By: #### 1 [id number] #### [facility] [address] [place] [address] Norovirus genogroup I+II RNA ANN+non-probe Ql (Stl) Not detected Normal [facility] Comment on above: Performed By: #### 1 [id number] #### [facility] [address] [place] [address] Rotavirus A RNA ANN+non-probe Ql (Stl) Not detected Normal [facility] Comment on above: Performed By: #### 1 [id number] #### [facility] [address] [place] [address] S. enterica+bongori DNA ANN+non-probe Ql (Stl) Not detected Normal [facility] Comment on above: Result Comment: This test result should be correlated with clinical presentations and medical history by a healthcare provider to determine its clinical significance. Performed By: #### 1 [id number] #### [facility] [address] [place] [address] Shigella species+EIEC invasion plasmid antigen H ipaH gene ANN+non-probe Ql (Stl) Not detected Normal [facility] Comment on above: Performed By: #### 1 [id number] #### [facility] [address] [place] [address] V. cholerae+parahaemolytic us+vulnificus DNA ANN+non-probe Ql (Stl) Not detected Normal [facility] Comment on above: Performed By: #### 1 [id number] #### [facility] [address] [place] [address] Y. enterocolitica DNA ANN+non-probe Ql (Stl) Not detected Normal [facility] Comment on above: Performed By: #### 1 [id number] #### [facility] [address] [place] [address] HEMATOLOGYOrdered By: SYSTEM SYSTEM on 09-20-2023 Basophils/100 WBC (Bld) 0.2 % Normal 0.0 - 2.0 % Remisol Heme Basophils/Leukocytes Auto (Bld) [Pure # fraction] 0.0 E9/L Normal 0.0 - 0.2 E9/L Rem[facility] Heme Eosinophils (Bld) [#/Vol] 0.2 E9/L Normal 0.0 - 0.5 E9/L [facility] Heme Eosinophils/100 WBC (Bld) 1.2 % Normal 0.0 - 8.0 % Remisol Heme Erythrocyte distribution width (RBC) [Ratio] 14.5 % High 10.9 - 14.2 % Remisol Heme Hematocrit (Bld) [Volume fraction] 34.4 % Low 37.7 - 49.0 % Remisol Heme Hemoglobin (Bld) [Mass/Vol] 11.9 g/dL Low 13.5 - 17.5 gm/dL Remisol Heme Lymphocytes (Bld) [#/Vol] 1.6 E9/L Normal 1.0 - 4.0 E9/L Remisol Heme Lymphocytes/100 WBC (Bld) 10.0 % Low 14.0 - 50.0 % Remisol Heme MCH (RBC) [Entitic mass] 30.2 pg Normal 27.0 - 34.0 pg Remisol Heme MCHC (RBC) [Mass/Vol] 34.5 g/dL Normal 31.4 - 36.0 gm/dL [facility] Heme MCV (RBC) [Entitic vol] 87.8 fL Normal 80.0 - 100.0 fL [facility] Heme Monocytes (Bld) [#/Vol] 0.9 E9/L Normal 0.2 - 1.0 E9/L Remisol Heme Monocytes/100 WBC (Bld) 5.6 % Normal 4.0 - 14.0 % Remisol Heme Neutrophils (Bld) [#/Vol] 12.9 E9/L High 2.0 - 7.5 E9/L Rem[facility] Heme Neutrophils/100 WBC (Bld) 83.0 % High 36.0 - 75.0 % Remisol Heme Platelet 161.0 E9/L Normal 150.0 - 500.0 E9/L [facility] Heme Platelet mean volume (Bld) [Entitic vol] 9.1 fL Normal 6.4 - 10.8 fL Remisol Heme RBC (Bld) [#/Vol] 3.9 E12/L Low 4.3 - 5.9 E12/L Rem[facility] Heme WBC corrected for nucl RBC Auto (Bld) [#/Vol] 15.6 E9/L High 4.0 - 11.0 E9/L Remisol Heme Interdisciplinary Note - Garrison e Manageron 09-20-2023 Interdisciplinary Note - Shear Grinder Operator Helper Interdisciplinary Note - Shear Grinder Operator Helper Patient is awake and alert in bed, previously rounded with Trauma. Pt is feeling better today possible DC home later today or tomorrow. Significant other at bedside and will transport at DC, pt is independent at home, and declines any DC needs. . PCP verified and insurance information reviewed and DME discussed. contact information provided and white board updated. Normal [facility] Comment on above: Result Comment: Elec tronically Signed By: Matt RICHARDSON, Nasreen\.reshma\Date and Time Signed: 09/20/23 09:42 EDT Laboratory - Microbiology an d Antimicrobial susceptibilityOrdered By: Nissa Santo on 09-20-2023 Bacteria identified Cx Nom (U) 200 cfu/ml Mixed skin contaminants [facility] Magnesiumon 09-20-2023 Magnesium [Mass/Vol] 1.9 mg/dL Normal 1.3-2.4 [facility] Comment on above: Performed By: #### 2 [id number] #### [facility] [address] [place] [address] Phosphoruson 09-20-2023 Phosphate [Mass/Vol] 2.9 mg/dL Normal 1.9-4.6 [facility] Comment on above: Performed By: #### 2 [id number] #### [facility] [address] [place] [address] UA with Cult Rflxon 09-20-19 Bilirubin Ql (U) Negative Normal Negative [facility] Comment on above: Performed By: #### 4 [id number] #### [facility] [address] [place] [address] Clarity (U) Clear Normal Clear [facility] Comment on above: Performed By: #### 4 [id number] #### [facility] [address] [place] [address] Color (U) Light-Yellow Normal Yellow [facility] Comment on above: Result Comment: Micr oscopic readings are only performed on those samples that meet specific criteria set forth by [facility]. Performed By: #### 4 [id number] #### [facility] [address] [place] [address] Glucose Ql (U) Negative Normal Negative [facility] Comment on above: Performed By: #### 4 [id number] #### [facility] [address] [place] [address] Hemoglobin Auto test strip (U) [Mass/Vol] 1+ mg/dL Abnormal Negative [facility] Comment on above: Performed By: #### 4 [id number] #### [facility] [address] [place] [address] Ketones Auto test strip Ql (U) 1+ mg/dL Abnormal Negative [facility] Comment on above: Performed By: #### 4 [id number] #### [facility] [address] [place] [address] Leukocyte esterase Auto test strip Ql (U) 75 Derick/uL Abnormal Negative [facility] Comment on above: Performed By: #### 4 [id number] #### [facility] [address] [place] [address] Mucus Auto Ql (U) Negative Normal Negative [facility] Comment on above: Performed By: #### 4 [id number] #### [facility] [address] [place] [address] Nitrite Auto test strip Ql (U) Negative Normal Negative [facility] Comment on above: Performed By: #### 4 [id number] #### [facility] [address] [place] [address] pH (U) 6.5 [pH] Invalid Interpretation Code 5.0-9.0 [facility] Comment on above: Performed By: #### 4 [id number] #### [facility] [address] [place] [address] Protein Ql (U) 1+ mg/dL Abnormal Negative [facility] Comment on above: Performed By: #### 4 [id number] #### [facility] [address] [place] [address] RBC Ql (U) 0-3 Normal 0-3 [facility] Comment on above: Performed By: #### 4 [id number] #### [facility] [address] [place] [address] Specific gravity (U) [Rel density] 1.028 Invalid Interpretation Code 1.005-1.030 [facility] Comment on above: Performed By: #### 4 [id number] #### [facility] [address] [place] [address] Urobilinogen (U) [Mass/Vol] Negative Normal Negative [facility] Comment on above: Performed By: #### 4 [id number] #### [facility] [address] [place] [address] WBC Auto (Urine sed) [#/Area] 6-15 Abnormal 0-5 [facility] Comment on above: Performed By: #### 4 [id number] #### [facility] [address] [place] [address] URINALYSISOrdered By: SYSTEM SYSTEM on 09-20-2023 Bilirubin Ql (U) Negative Normal Negativemg/ d L [facility] UA Auto SS Clarity (U) Clear (09/20/23 10:01 AM) Normal Clear [facility] UA Auto SS Color (U) Light-Yellow 1 (09/20/23 10:01 AM) Normal Yellow [facility] UA Auto SS Comment on above: Interpretive Data: M icroscopic readings are only performed on those samples that meet specific criteria set forth by [facility]. Glucose Ql (U) Negative Normal Negativemg/d L [facility] UA Auto SS Hemoglobin Auto test strip (U) [Mass/Vol] 1+ mg/dL Invalid Interpretation Code Negativemg/d L [facility] UA Auto SS Ketones Auto test strip Ql (U) 1+ mg/dL Invalid Interpretation Code Negativemg/d L [facility] UA Auto SS Leukocyte esterase Auto test strip Ql (U) 75 Derick/uL Derick/uL Invalid Interpretation Code NegativeLeu/ uL [facility] UA Auto SS Mucus Auto Ql (U) Negative Normal Negativegr ad ed/LPF [facility] UA Auto SS Nitrite Auto test strip Ql (U) Negative Normal Negativemg/d L [facility] UA Auto SS pH (U) 6.5 *NA* (09/20/23 10:01 AM) Invalid Interpretation Code 5.0 - 9.0 [facility] UA Auto SS Protein Ql (U) 1+ mg/dL Invalid Interpretation Code Negativemg/d L [facility] UA Auto SS RBC Ql (U) 0-3 graded/HPF Normal 0-3graded/HP F [facility] UA Auto SS Specific gravity (U) [Rel density] 1.028 *NA* (09/20/23 10:01 AM) Invalid Interpretation Code 1.005 - 1.030 [facility] UA Auto SS Urobilinogen (U) [Mass/Vol] Negative Normal Negativemg/d L [facility] UA Auto SS WBC Auto (Urine sed) [#/Area] 6-15 graded/HPF Invalid Interpretation Code 0-5graded/HP F [facility] UA Auto SS URINALYSISOrdered By: Mainor bello on 09-20-2023 UA Spec Desc Clean Catch (09/20/23 10:01 AM) Normal [facility] [place] Auto SS Work Phone: eGFRon 09-20-2023 eGFR 55 mL/min/1.73 m2 Low >=59 [facility] Comment on above: Order Comment: Order added by Discern Expert. Performed By: #### 1 [id number] #### [facility] [address] [place] [address] ABO/Rhon 09-19-2023 ABO/Rh Positive Invalid Interpretation Code [facility] Comment on above: Performed By: #### 2 [id number] #### [facility] [address] [place] [address] ABO/Rh History Checkon 09-18 ABO/Rh History Check Verified Hx Blood Type Normal [facility] Comment on above: Performed By: #### 1 [id number] #### [facility] [address] [place] [address] ABSCon 09-19-2023 ABSC Gel Interp Negative Normal [facility] Comment on above: Performed By: #### 1 [id number] #### [facility] [address] [place] [address] BLOOD BANKOrdered By: Rosemary Kiser on 09-19-2023 ABO/Rh Interp Positive Invalid Interpretation Code [facility] BB Subsection ABSC Gel Interp Negative (09/19/23 1:05 AM) Normal [facility] BB Subsection BMPon 09-19-2023 Anion gap [Moles/Vol] 12 mmol/L Normal 6-16 [facility] Comment on above: Performed By: #### 2 [id number] #### [facility] [address] [place] [address] Calcium [Mass/Vol] 8.8 mg/dL Low 8.9-11.1 [facility] Comment on above: Performed By: #### 2 [id number] #### [facility] [address] [place] [address] Chloride [Moles/Vol] 104 mmol/L Normal 101-111 [facility] Comment on above: Performed By: #### 2 [id number] #### [facility] [address] [place] [address] CO2 [Moles/Vol] 22 mmol/L Normal 21-31 [facility] Comment on above: Performed By: #### 2 [id number] #### [facility] [address] [place] [address] Creatinine [Mass/Vol] 1.8 mg/dL High 0.5-1.3 [facility] Comment on above: Performed By: #### 2 [id number] #### [facility] [address] [place] [address] Glucose [Mass/Vol] 159 mg/dL Normal 55-199 [facility] Comment on above: Performed By: #### 2 [id number] #### [facility] [address] [place] [address] Potassium [Moles/Vol] 4.9 mmol/L Normal 3.5-5.3 [facility] Comment on above: Performed By: #### 2 [id number] #### [facility] [address] [address] Sodium [Moles/Vol] 133 mmol/L Low 135-145 [facility] Comment on above: Performed By: #### 2 [id number] #### [facility] [address] [place] [address] Urea nitrogen [Mass/Vol] 47 mg/dL High 5-21 [facility] Comment on above: Performed By: #### 2 [id number] #### [facility] [address] [place] [address] Urea nitrogen/Creatinine [Mass ratio] 26 No Units High 10-20 [facility] Comment on above: Performed By: #### 2 [id number] #### [facility] [address] [place] [address] Anion gap [Moles/Vol] 16 mmol/L Normal 6-16 [facility] Comment on above: Performed By: #### 2 [id number] #### [facility] [address] [place] [address] Calcium [Mass/Vol] 9.3 mg/dL Normal 8.9-11.1 [facility] Comment on above: Performed By: #### 2 [id number] #### [facility] [address] [place] [address] Chloride [Moles/Vol] 98 mmol/L Low 101-111 [facility] Comment on above: Performed By: #### 2 [id number] #### [facility] [address] [place] [address] CO2 [Moles/Vol] 20 mmol/L Low 21-31 [facility] Comment on above: Performed By: #### 2 [id number] #### [facility] [address] [place] [address] Creatinine [Mass/Vol] 2.1 mg/dL High 0.5-1.3 [facility] Comment on above: Performed By: #### 2 [id number] #### [facility] [address] [place] [address] Glucose [Mass/Vol] 292 mg/dL High 55-199 [facility] Comment on above: Performed By: #### 2 [id number] #### [facility] [address] [place] [address] Potassium [Moles/Vol] 5.4 mmol/L High 3.5-5.3 [facility] Comment on above: Performed By: #### 2 [id number] #### [facility] [address] [place] [address] Sodium [Moles/Vol] 129 mmol/L Low 135-145 [facility] Comment on above: Performed By: #### 2 [id number] #### [facility] [address] [place] [address] Urea nitrogen [Mass/Vol] 53 mg/dL High 5-21 [facility] Comment on above: Performed By: #### 2 [id number] #### [facility] [address] [place] [address] Urea nitrogen/Creatinine [Mass ratio] 25 No Units High 10-20 [facility] Comment on above: Performed By: #### 2 [id number] #### [facility] [address] [place] [address] Blood Bank ID#on 09-19-2023 BBID# [id number] Invalid Interpretation Code [facility] Comment on above: Performed By: #### 1 [id number] #### [facility] [address] [place] [address] CBC w/ Auto Diffon 4 Basophils/100 WBC (Bld) 0.3 % Normal 0.0-2.0 [facility] Comment on above: Performed By: #### 2 [id number] #### [facility] [address] [place] [address] Basophils/Leukocytes Auto (Bld) [Pure # fraction] 0.0 E9/L Normal 0.0-0.2 [facility] Comment on above: Performed By: #### 2 [id number] #### [facility] [address] [place] [address] Eosinophils (Bld) [#/Vol] 0.1 E9/L Normal 0.0-0.5 [facility] Comment on above: Performed By: #### 2 [id number] #### [facility] [address] [place] [address] Eosinophils/100 WBC (Bld) 0.6 % Normal 0.0-8.0 [facility] Comment on above: Performed By: #### 2 [id number] #### [facility] [address] [place] [address] Erythrocyte distribution width (RBC) [Ratio] 14.5 % High 10.9-14.2 [facility] Comment on above: Performed By: #### 2 [id number] #### [facility] [address] [place] [address] Hematocrit (Bld) [Volume fraction] 35.0 % Low 37.7-49.0 [facility] Comment on above: Performed By: #### 2 [id number] #### [facility] [address] [place] [address] Hemoglobin (Bld) [Mass/Vol] 11.7 g/dL Low 13.5-17.5 [facility] Comment on above: Performed By: #### 2 [id number] #### [facility] [address] [place] [address] Lymphocytes (Bld) [#/Vol] 1.8 E9/L Normal 1.0-4.0 [facility] Comment on above: Performed By: #### 2 [id number] #### [facility] [address] [place] [address] Lymphocytes/100 WBC (Bld) 11.2 % Low 14.0-50.0 [facility] Comment on above: Performed By: #### 2 [id number] #### [facility] [address] [place] [address] MCH (RBC) [Entitic mass] 29.4 pg Normal 27.0-34.0 [facility] Comment on above: Performed By: #### 2 [id number] #### [facility] [address] [place] [address] MCHC (RBC) [Mass/Vol] 33.3 g/dL Normal 31.4-36.0 [facility] Comment on above: Performed By: #### 2 [id number] #### [facility] [address] [place] [address] MCV (RBC) [Entitic vol] 88.1 fL Normal 80.0-100.0 [facility] Comment on above: Performed By: #### 2 [id number] #### [facility] [address] [place] [address] Monocytes (Bld) [#/Vol] 0.9 E9/L Normal 0.2-1.0 [facility] Comment on above: Performed By: #### 2 [id number] #### [facility] [address] [place] [address] Neutrophils (Bld) [#/Vol] 13.2 E9/L High 2.0-7.5 [facility] Comment on above: Performed By: #### 2 [id number] #### [facility] [address] [place] [address] Neutrophils/100 WBC (Bld) 82.1 % High 36.0-75.0 [facility] Comment on above: Performed By: #### 2 144000 #### [facility] [address] [place] [address] Platelet mean volume (Bld) [Entitic vol] 9.4 fL Normal 6.4-10.8 [facility] Comment on above: Performed By: #### 2 [id number] #### [facility] [address] [place] [address] Platelets (Bld) [#/Vol] 161.0 E9/L Normal 150.0-500.0 [facility] Comment on above: Performed By: #### 2 [id number] #### [facility] [address] [place] [address] RBC (Bld) [#/Vol] 4.0 E12/L Low 4.3-5.9 [facility] Comment on above: Performed By: #### 2 [id number] #### [facility] [address] [place] [address] WBC corrected for nucl RBC Auto (Bld) [#/Vol] 16.1 E9/L High 4.0-11.0 [facility] Comment on above: Performed By: #### 2 [id number] #### [facility] [address] [place] [address] Band form neutrophils/100 WBC (Bld) 12 % High 0-6 [facility] Comment on above: Performed By: #### 2 [id number] #### [facility] [address] [place] [address] Basophils (Bld) [#/Vol] 0.0 E9/L Normal 0.0-0.2 [facility] Comment on above: Performed By: #### 2 [id number] #### [facility] [address] [place] [address] Eosinophils (Bld) [#/Vol] 0.0 E9/L Normal 0.0-0.5 [facility] Comment on above: Performed By: #### 2 [id number] #### [facility] [address] [place] [address] Eosinophils/100 WBC (Bld) 0.0 % Normal 0.0-8.0 [facility] Comment on above: Performed By: #### 2 [id number] #### [facility] [address] [place] [address] Erythrocyte distribution width (RBC) [Ratio] 14.7 % High 10.9-14.2 [facility] Comment on above: Performed By: #### 2 [id number] #### [facility] [address] [place] [address] Hematocrit (Bld) [Volume fraction] 39.4 % Normal 37.7-49.0 [facility] Comment on above: Performed By: #### 2 [id number] #### [facility] [address] [place] [address] Hemoglobin (Bld) [Mass/Vol] 13.2 g/dL Low 13.5-17.5 [facility] Comment on above: Performed By: #### 2 [id number] #### [facility] [address] [place] [address] Lymphocytes (Bld) [#/Vol] 0.6 E9/L Low 1.0-4.0 [facility] Comment on above: Performed By: #### 2 [id number] #### [facility] [address] [place] [address] Lymphocytes/100 WBC (Bld) 3.0 % Low 14.0-50.0 [facility] Comment on above: Performed By: #### 2 [id number] #### [facility] [address] [place] [address] MCH (RBC) [Entitic mass] 29.6 pg Normal 27.0-34.0 [facility] Comment on above: Performed By: #### 2 [id number] #### [facility] [address] [place] [address] MCHC (RBC) [Mass/Vol] 33.4 g/dL Normal 31.4-36.0 [facility] Comment on above: Performed By: #### 2 [id number] #### [facility] [address] [place] [address] MCV (RBC) [Entitic vol] 88.7 fL Normal 80.0-100.0 [facility] Comment on above: Performed By: #### 2 [id number] #### [facility] [address] [place] [address] Monocytes (Bld) [#/Vol] 0.8 E9/L Normal 0.2-1.0 [facility] Comment on above: Performed By: #### 2 [id number] #### [facility] [address] [place] [address] Neutrophils (Bld) [#/Vol] 18.5 E9/L Invalid Interpretation Code [facility] Comment on above: Performed By: #### 2 [id number] #### [facility] [address] [place] [address] Platelet mean volume (Bld) [Entitic vol] 9.6 fL Normal 6.4-10.8 [facility] Comment on above: Performed By: #### 2 [id number] #### [facility] [address] [place] [address] Platelets (Bld) [#/Vol] 189.0 E9/L Normal 150.0-500.0 [facility] Comment on above: Performed By: #### 2 443642 #### [facility] [address] [place] [address] RBC (Bld) [#/Vol] 4.4 E12/L Normal 4.3-5.9 [facility] Comment on above: Performed By: #### 2 [id number] #### [facility] [address] [place] [address] RBC size Nom (Bld) NORMAL Invalid Interpretation Code [facility] Comment on above: Performed By: #### 2 [id number] #### [facility] [address] [place] [address] Segmented neutrophils/100 WBC (Bld) 81.0 % High 36.0-75.0 [facility] Comment on above: Performed By: #### 2 [id number] #### [facility] [address] [place] [address] WBC corrected for nucl RBC Auto (Bld) [#/Vol] 19.9 E9/L High 4.0-11.0 [facility] Comment on above: Performed By: #### 2 [id number] #### [facility] [address] [place] [address] CDiff PCRon 09-19-2023 C. difficile toxin A+B Ql (Stl) No, PCR to follow Normal [facility] Comment on above: Performed By: #### 3 [id number] #### [facility] [address] [place] [address] CHEMISTRYOrdered By: SYSTEM SYSTEM on 09-19-2023 Anion gap [Moles/Vol] 12 mmol/L Normal 6 - 16 mEq/L R emisol Chem Calcium [Mass/Vol] 8.8 mg/dL Low 8.9 - 11. 1 mg/dL Remisol Chem Chloride [Moles/Vol] 104 mmol/L Normal 101 - 1 11 mmol/L Remisol Chem CO2 [Moles/Vol] 22 mmol/L Normal 21 - 31 mmol/L Remisol Chem Creatinine [Mass/Vol] 1.8 mg/dL High 0.5 - 1.3 mg/dL Remisol Chem eGFR 40 mL/min/1.73 m2 Low >=59mL/min /1 .73 m2 Remisol Chem Glucose [Mass/Vol] 159 mg/dL Normal 55 - 199 mg/dL Remisol Chem Lactic Acid Lvl 0.8 mmol/L Normal 0.5 - 2.2 mmol/L Remisol Chem Potassium [Moles/Vol] 4.9 mmol/L Normal 3.5 - 5.3 mmol/L Remisol Chem Sodium [Moles/Vol] 133 mmol/L Low 135 - 145 mmol/L Remisol Chem Urea nitrogen [Mass/Vol] 47 mg/dL High 5 - 21 mg/dL Remisol Chem Urea nitrogen/Creatinine [Mass ratio] 26 mg/mg High 10 - 20 Remisol Chem Albumin [Mass/Vol] 4.2 g/dL Normal 3.3 - 5.0 gm/dL Remisol Chem Albumin/Globulin [Mass ratio] 1.3 {ratio} Normal 1.1 - 2.2 Remisol Chem ALP [Catalytic activity/Vol] 142 [iU]/d High 21 - 98 Int._Unit/L Remisol Chem ALT No additional P-5'-P [Catalytic activity/Vol] 20 [iU]/d Normal 6 - 46 Int._Unit/L Remisol Chem AST [Catalytic activity/Vol] 22 [iU]/d Normal 5 - 43 Int._Unit/L Remisol Chem Bilirubin [Mass/Vol] 0.5 mg/dL Normal 0.0 - 1 .1 mg/dL Remisol Chem Bilirubin.direct [Mass/Vol] 0.1 mg/dL Normal 0.0 - 0.4 mg/dL Remisol Chem Bilirubin.indirect [Mass or moles/Vol] 0.4 mg/dL Normal 0.1 - 0.9 mg/dL Remisol Chem Globulin (S) [Mass/Vol] 3.3 g/dL Normal 1.4 - 4.0 gm/dL Remisol Chem Lipase [Catalytic activity/Vol] 7 U/L Low 13 - 58 unit/L Remisol Chem Protein [Mass/Vol] 7.5 g/dL Normal 6.0 - 7.8 gm/dL Remisol Chem CT Abdomen/Pelvis w/ Contras ton 09-19-2023 CT Abdomen/Pelvis w/ Contrast Exam Date/Time: 09/19/2023 02:30 EDT Reason for Exam: ABDOMINAL PAIN, ACUTE, NONLOCALIZED;Other (please specify) Report IMPRESSION: MODERATE UNCOMPLICATED SEGMENTAL WALL THICKENING OF THE SPLENIC FLEXURE, DESCENDING AND RECTOSIGMOID COLON. MOST LIKELY POSSIBILITIES ARE INFECTION OR INFLAMMATORY BOWEL DISEASE. ISCHEMIA OR NEOPLASM TO BE MUCH LESS LIKELY. POSTOPERATIVE CHANGES FROM PREVIOUS WHIPPLE AND OTHER CHRONIC FINDINGS, NOT SIGNIFICANTLY CHANGED FROM 03/18/2022. EXAM: CT Abdomen/Pelvis w/ Contrast DATE: 09/19/2023 2:20 AM CLINICAL HISTORY: ABDOMINAL PAIN, ACUTE, NONLOCALIZED. COMPARISON: Chest, abdomen and pelvis CTs 03/18/2022. TECHNIQUE: Spiral imaging was obtained of the abdomen and pelvis after the uneventful infusion of approximately 100 mL of Isovue [address] scans at this facility use dose modulation, iterative reconstruction, and/or weight based dosing when appropriate to reduce radiation dose to as low as reasonably achievable. Unless otherwise stated, incidental findings identified in this report do not require routine follow-up imaging. FINDINGS: Liver: No enlargement, significant fatty infiltration, suspicious mass or lesion. Biliary: The gallbladder has been removed. No abnormal biliary ductal dilatation. Pancreas: Postoperative changes from previous Whipple, which are otherwise unremarkable. Spleen: Unremarkable. Adrenals: Unremarkable. Kidneys: Approximately 2 mm obstructing left lower pole renal calculus; apparently new from 03/18/2022. A 2 mm left upper pole renal calculus is no longer identified. No hydronephrosis, other significant urinary tract calculi, or suspicious mass. GI tract: Moderately extensive circumferential wall thickening of the splenic flexure, descending and rectosigmoid colon with mild surrounding inflammation. The cecum and transverse colon are otherwise unremarkable. The appendix is not confidently identified, without findings to suggest acute appendicitis. No abnormal dilation, pneumatosis, or other complication.. Lymph nodes: No pathologically enlarged lymph nodes. Mesentery/peritoneum: No ascites or mass. Retroperitoneum: No organized fluid collection or mass. Pelvis: The urinary bladder is unremarkable. No mass, organized fluid collection, or ascites. Report Vasculature: Minimal to mild calcified atherosclerotic plaquing. Within the limits of a non-CTA study, no evidence of mesenteric branch occlusion or flow-limiting stenosis. Musculoskeletal: No acute osseous findings. Moderate degenerative changes of the thoracolumbar spine and hips. Spinal stimulator device in expected position. Lower thorax: Noncontributory. Ordering Provider: Mainor Hamilton FINAL REPORT Dictated: 09/19/2023 9:56 am Raghav Meléndez MD Signed (Electronic Signature): 09/19/2023 9:56 am Signed by: Raghav Meléndez MD Transcribed by: MIKIE Technologist: ISABELL Technical Comments GFR (mL/min/1/73m2) 34- hydrated Contrast: Isovue 300 Contrast amount in ml's: 100 Rectal Contrast Given? No Normal [facility] Capillary Glucose POCon 09-08 Glucose [Mass/Vol] 133 mg/dL High 55-99 [facility] Comment on above: Result Comment: Ty lester RN/ Performed By: #### [id number] #### [facility] [address] [place] [address] ED Clinical Summaryon 2023 ED Clinical Summary ED Clinical Summary [place] [id number] ED Clinical Summary Person Information Name: ALTAGRACIA CONWAY [facility] Age: 68 Years : 1955 Sex: Male Language: Argentine PCP: TIKI DOCKERY DO Marital Status: Visit Id: Visit Reason: GI bleeding; Abdominal pain; Vomiting; Nausea; blood in stool Speciality: Acuity: 2 Enc Type: Inpatient Med Service: Emergency Arrival: 09/19/2023 00:29:49 Discharge: LOS: 000 06:52 Checkin: 09/19/2023 00:29:49 Checkout: 09/19/2023 07:21:07 Dispo Type: Admitted as IP to this [facility] EVENTS: Event Name Event Status Request Date/Time Start Date/Time Complete Date/Time Arrive Complete 09/19/2023 00:29:49 09/19/2023 00:29:49 09/19/2023 00:29:49 Document Home Meds Request 09/19/2023 00:29:49 Triage Complete 09/19/2023 00:29:49 09/19/2023 00:34:38 09/19/2023 00:34:38 Registration Complete 09/19/2023 00:34:39 09/19/2023 00:34:39 09/19/2023 00:34:39 Reg Complete Request 09/19/2023 00:34:39 Reg Bed Request Complete 09/19/2023 00:34:39 09/19/2023 00:34:39 09/19/2023 00:34:39 Dr Exam Complete 09/19/2023 00:35:52 09/19/2023 00:35:52 09/19/2023 00:35:52 Registration Complete 09/19/2023 00:35:52 09/19/2023 00:37:04 09/19/2023 00:37:51 Bed Assign Complete 09/19/2023 00:37:04 09/19/2023 00:37:04 09/19/2023 00:37:04 RN Exam Complete 09/19/2023 00:37:04 09/19/2023 01:14:26 09/19/2023 01:14:26 Pending Labs Request 09/19/2023 00:40:57 Lab Inlab 09/19/2023 00:40:57 Meds Admin Complete 09/19/2023 00:40:57 09/19/2023 01:02:43 Patient Care Complete 09/19/2023 00:40:57 09/19/2023 01:21:43 Blood Collect Request 09/19/2023 00:40:57 CT Complete 09/19/2023 00:41:54 09/19/2023 02:20:24 09/19/2023 02:30:22 Meds Admin Complete 09/19/2023 00:41:54 09/19/2023 01:02:43 Pending Labs Complete 09/19/2023 01:11:16 09/19/2023 01:11:16 09/19/2023 01:52:35 Lab Complete 09/19/2023 01:11:16 09/19/2023 01:11:16 09/19/2023 01:52:35 Fall Risk Request 09/19/2023 01:14:27 Meds Admin Complete 09/19/2023 02:36:27 09/19/2023 02:50:12 Meds Admin Request 09/19/2023 06:06:48 NPO Request 09/19/2023 06:06:48 Bed Request Request 09/19/2023 06:07:14 Reg Bed Request Complete 09/19/2023 06:07:14 09/19/2023 06:12:44 09/19/2023 06:12:44 Admit Request 09/19/2023 06:07:14 Pending Labs Request 09/19/2023 06:09:57 Patient Care Request 09/19/2023 06:12:44 Patient Care Request 09/19/2023 06:12:44 Patient Care Request 09/19/2023 06:12:44 Patient Care Request 09/19/2023 06:12:44 Medicare Form Request 09/19/2023 06:12:45 Patient Care Request 09/19/2023 06:12:45 Patient Care Request 09/19/2023 06:12:45 ADDRESS: [address] [id number] PHYS DOC NOTES: MEDICAL INFORMATION: Prescriptions Given: Medications to Continue with No Changes Other Medications albuterol (Ventolin HFA 90 mcg/inh Aerosol-Adpt) 1 Puffs Inhalation every 4 hours. amitriptyline 50 Milligram By Mouth at bedtime. amlodipine 10 Milligram By Mouth every day. atorvastatin 10 Milligram By Mouth. busPIRone (busPIRone 10 mg Tab) 3 Tablets By Mouth 2 times a day. doxepin 100 Milligram By Mouth. ergocalciferol (Vitamin D) 50 Microgram By Mouth. fluticasone-vilanterol (Breo Ellipta) fluticasone-vilanterol (Breo Ellipta) Inhalation every day. furosemide 20 Milligram By Mouth every day. hydrochlorothiazide (hydrochlorothiazide 25 mg Tab) 1 Tablets By Mouth every day. Hold this medication until po intake improves. insulin aspart insulin degludec insulin glargine 20 Units Subcutaneous 2 times a day. insulin lispro 0-10 units Subcutaneous four times a day (before meals and at bedtime). levomilnacipran (Fetzima) 60 Milligram By Mouth every day. lisinopril 10 Milligram By Mouth. lorazepam (Ativan 0.5 mg Tab) 1 Tablets By Mouth once a day (in the morning). lorazepam (Ativan 1 mg Tab) 1 Tablets By Mouth at bedtime. losartan (losartan 50 mg Tab) 2 Tablets By Mouth every day. Hold for sbp 110 or less. metoprolol (Metoprolol tartrate 25 mg Tab) 1 Tablets By Mouth 2 times a day. Hold for sbp 110 or less or HR 55 or less. mirtazapine 45 Milligram By Mouth once a day (at bedtime). pancrelipase pancrelipase (Creon 36,000 units oral delayed release capsule) 1 Capsules By Mouth 3 times a day. pantoprazole (Pantoprazole [address] Tab) 1 Tablets By Mouth every day. polyethylene glycol 3350 (Miralax 3350 17 gram packet) By Mouth every day. pregabalin (pregabalin 150 mg Cap) 1 Capsules By Mouth 2 times a day. tamsulosin (tamsulosin 0.4 mg Cap) 1 Capsules By Mouth every day. PATIENT EDUCATION INFORMATION: Instructions: Follow up: DIAGNOSIS: Proctocolitis Normal [facility] ED Note-Physicianon 09-19-19 ED Note-Physician ED Note-Physician Basic Information Time Seen: Mainor Hamilton DO 09/19/2023 00:35 Chief Complaint nausea vomiting today. lower abd pain. states having bloody stools now History of Present Illness HPI: Patient is a 68-year-old male with past medical history of depression, diabetes, hepatitis C, hypertension, hyperlipidemia who presents the ED for abdominal pain bright red blood in his stool. Patient states this for started this evening and has been worsening. He is having multiple bright red bloody stools. He states he has pain mainly across his lower abdomen with this. He has had some nausea and vomiting as well. He denies any fever or chills. He denies any urinary symptoms. He reports that he had a colonoscopy approximately 2 years ago and that it was normal at the time. He takes baby aspirin but denies any other blood thinners. ROS: Pertinent review of systems conducted and is negative except as noted above. Physical exam: General: nontoxic appearing and in no distress HEENT: Mucous membranes moist Neuro: awake and alert Neck: supple, trachea midline Card: Heart regular rate and rhythm no murmur Resp: Lungs clear to auscultation no wheeze or rhonchi Abd: Soft and nondistended. Suprapubic and left lower quadrant tenderness without rebound or guarding. Ext: No gross deformity or edema Physical Exam Vitals & Measurements T: 36.5 ?C(Oral) HR: 108(Peripheral) RR: 20 BP: 190/76 HT: 187 cm WT: 98.8 kg BMI: 28.25 Medical Decision Making MEDICAL DECISION MAKING Number and Complexity of Problems Differential Diagnosis: [] [facility] Data External documents reviewed: N/A My EKG interpretation: Noted in chart if applicable My CT interpretation: N/A My X-ray interpretation: Noted in chart if applicable My Ultrasound interpretation: N/A Decision rules/scores evaluated: N/A Discussed with: N/A Treatment and Disposition ED Course: On arrival to the ED the patient is mildly tachycardic and is tender's abdomen. Will obtain a CT of the abdomen pelvis as well as urinalysis and blood work. Patient was given IV fluids as well as nausea and pain medication. He was also given a dose of Protonix for his reported bright red blood per rectum. Blood work is concerning with a leukocytosis of 19.9 with elevated segs and bands. CT of the abdomen and pelvis shows diffuse annular thickening of the colon and rectum extending from the transverse colon. Findings are favored to relate to proctocolitis. This may be infectious or inflammatory in nature. Ischemic etiologies are less likely. Consider correlation with laboratory values. 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 No gross evidence of occlusion. No evidence of bowel obstruction. Normal appendix. No evidence of pneumatosis, portal venous gas, or free air. No other acute findings. I called and spoke with Dr. Angelo who is on-call for surgery. After discussing the patient's lab values and imaging he agreed to admit the patient to his service recommended the patient be started on IV Zosyn and kept NPO. Shared decision making: As above Code status: N/A Assessment/Plan Proctocolitis (K52.9: Noninfective gastroenteritis and colitis, unspecified) Orders: HYDROmorphone, 0.5 mg = 0.5 mL, Injection, IV Push, Once, Stop date 09/19/23 2:36:00 EDT, STAT, Start date 09/19/23 2:36:00 EDT, 09/19/23 2:36:00 EDT HYDROmorphone, 0.5 mg = 0.5 mL, Injection, IV Push, Once, Stop date 09/19/23 6:05:00 EDT, STAT, Start date 09/19/23 6:05:00 EDT, 09/19/23 6:05:00 EDT Lactated Ringers Injection 1,000 mL, 1,000 mL, IV, 100 mL/hr, STAT, Start date 09/19/23 6:05:00 EDT, 10 hour(s), Total volume (mL): 1,000, 98.8 kg, 2.27, m2 morphine, 4 mg = 1 mL, Injection, IV Push, Once, Stop date 09/19/23 0:40:00 EDT, STAT, Start date 09/19/23 0:40:00 EDT, 09/19/23 0:40:00 EDT ondansetron, 4 mg = 2 mL, Injection, IV Push, Once, Stop date 09/19/23 0:40:00 EDT, STAT, Start date 09/19/23 0:40:00 EDT, 09/19/23 0:40:00 EDT pantoprazole, 40 mg = 10 mL, Injection, IV Push, Once, Stop date 09/19/23 0:40:00 EDT, STAT, Start date 09/19/23 0:40:00 EDT, 09/19/23 0:40:00 EDT piperacillin-tazobactam + Sodium Chloride 0.9% intravenous solution 50 mL, 3.375 gm = 1 EA, Injection, IV Piggyback, Once, Stop date 09/19/23 6:05:00 EDT, STAT, Start date 09/19/23 6:05:00 EDT, 100 mL/hr, Infuse over 30 minute(s) Sodium Chloride 0.9% intravenous solution, 1,000 mL, Soln-IV, IV, Once, Stop date 09/19/23 0:41:00 EDT, STAT, Start date 09/19/23 0:41:00 EDT, Infuse over 61, minute(s) ABO/Rh ABO/Rh History Check Antibody Screen Basic Metabolic Panel Blood Bank ID# CBC w/ Auto Diff CT Abdomen/Pelvis w/ Contrast eGFR Hepatic Function Panel Lipase Level NPO Diet Place in Status Saline Lock Insert UA with Cult Rflx Medications Administered Given Dilaudid 1 mg/mL injectable solution, 0.5 mg, IV Push morphine 4 mg/mL Inj, 4 mg, IV Push NS 1000 ml Bolus, 1000 mL, IV on (more content not included)... Normal [facility] Comment on above: Result Comment: Elec tronically Signed By: Mainor Hamilton DO\.br\Date and Time Signed: 09/19/23 06:12 EDT ED Patient Education Noteon 09-19-2023 ED Patient Education Note ED Patient Education Note Normal [facility] ED Patient Summaryon 024 ED Patient Summary ED Patient Summary [place] [id number] Patient Discharge Instructions Person Information Name: ALTAGRACIA CONWAY Age: 68 Years Arrival Date: 09/19/2023 00:29:49 Discharge Diagnosis: Proctocolitis Primary Care Physician: TIKI DOCKERY DO Provider Information Primary Provider: Mainor Hamilton DO Advanced Crawler Tractor Operator:None The exam and treatment you received in the Emergency Department were for an urgent problem and are not intended as complete care. It is important that you follow up with a doctor, nurse practitioner, or physician?s library services assistant for ongoing care. If your symptoms become worse or you do not improve as expected and you are unable to reach your usual health care provider, you should return to the Emergency Department. We are available 24 hours a day. ALTAGRACIA CONWAY has been given the following list of patient education materials, prescriptions and follow-up instructions: Follow-up Instructions: In the event that this physician does not participate in your insurance network, please consult with your insurance company to find a nearby participating provider. Patient Education Materials: A MESSAGE TO ALL PATIENTS REGARDING OPIOIDS PRESCRIPTION OPIOIDS: WHAT YOU NEED TO KNOW Prescription opioids can be used to help relieve agxepqxe-uf-pgpmra pain and are often prescribed following a surgery or injury, or for certain health conditions. These medications can be an important part of the treatment but also come with serious risks. It is important to work with your healthcare provider to make sure you are getting the safest, most effective care. WHAT ARE THE RISKS AND SIDE EFFECTS OF OPIOID USE? Prescription opioids carry serious risks of addiction and overdose, especially with prolonged use. An opioid overdose, often marked by slowed breathing, can cause sudden . The use of prescription opioids can have a number of side effects as well, even when taken as directed: ? Tolerance?meaning you might need to take more of the medication for the same pain relief ? Physical dependence?meaning you have symptoms of withdrawal when a medication is stopped ? Increased sensitivity to pain ? Constipation ? Nausea, vomiting, and dry mouth ? Sleepiness and dizziness ? Confusion ? Depression ? Low levels of testosterone that can result in lower sex drive, energy, and strength ? Itching and sweating RISKS ARE GREATER WITH: ? History of drug misuse, substance use disorder, or overdose ? Mental health conditions (such as depression or anxiety) ? Sleep apnea ? Older age (65 years and older) ? Avoid alcohol while taking prescription opioids. Also, unless specifically advised by your health care provider, medications to avoid include: ? Benzodiazepines (such as Xanax or Valium) ? Muscle relaxants (such as Soma or Flexeril) ? Hypnotics (such as Ambien or Lunesta) ? Other prescription opioids KNOW YOUR OPTIONS Talk to your health care provider about ways to manage your pain that don?t involve prescription opioids. Some of these options may actually work better and have fewer risks and side effects. Options may include: ? Pain relievers such as acetaminophen, ibuprofen, and naproxen ? Some medication that are also used for depression or seizures ? Physical therapy and exercise ? Cognitive behavioral therapy, a psychological, goal-directed approach, in which patients learn how to modify physical, behavioral, and emotional triggers of pain and stress. IF YOU ARE PRESCRIBED OPIOIDS FOR PAIN: ? Never take opioids in greater amounts or more often than prescribed. ? Follow up with your primary health care provider. o Work together to create a plan on how to manage your pain. o Talk about ways to help manage your pain that don?t involve prescription opioids. o Talk about any and all concerns and side effects. ? Help prevent misuse and abuse o Never sell or share prescription opioids. o Never use another person?s prescription opioids. ? Store prescription opioids in a secure place and out of reach of others (this may include visitors, children, friends, and family). ? Safely dispose of unused prescription opioids: Find your community drug take-back program or your pharmacy mail-back program, or flush them down the toilet, following guidance from the Food and Drug Administration (www.fda.gov/Drugs/Reso urcesForYou). ? Visit www.cdc.gov/drugoverdos e to learn about the risks of opioids abuse and overdose. ? If you believe you may be struggling with addiction, tell your health lead caregiver and ask for guidance or call [facility]?S National Helpline at 4-672-122-FXYH. s Source: [place] Department of Health and Human Services/Center for Disease Control & Prevention [facility] Medications Given: Medication Dose Ro (more content not included)... Normal [facility] HEMATOLOGYOrdered By: SYSTEM SYSTEM on 09-19-2023 Basophils/100 WBC (Bld) 0.3 % Normal 0.0 - 2.0 % Remisol Heme Basophils/Leukocytes Auto (Bld) [Pure # fraction] 0.0 E9/L Normal 0.0 - 0.2 E9/L Remisol Heme Eosinophils (Bld) [#/Vol] 0.1 E9/L Normal 0.0 - 0.5 E9/L Remisol Heme Eosinophils/100 WBC (Bld) 0.6 % Normal 0.0 - 8.0 % Remisol Heme Erythrocyte distribution width (RBC) [Ratio] 14.5 % High 10.9 - 14.2 % Remisol Heme Hematocrit (Bld) [Volume fraction] 35.0 % Low 37.7 - 49.0 % Remisol Heme Hemoglobin (Bld) [Mass/Vol] 11.7 g/dL Low 13.5 - 17.5 gm/dL Remisol Heme Lymphocytes (Bld) [#/Vol] 1.8 E9/L Normal 1.0 - 4.0 E9/L Remisol Heme Lymphocytes/100 WBC (Bld) 11.2 % Low 14.0 - 50.0 % Remisol Heme MCH (RBC) [Entitic mass] 29.4 pg Normal 27.0 - 34.0 pg Remisol Heme MCHC (RBC) [Mass/Vol] 33.3 g/dL Normal 31.4 - 36.0 gm/dL Remisol Heme MCV (RBC) [Entitic vol] 88.1 fL Normal 80.0 - 100.0 fL Remisol Heme Monocytes (Bld) [#/Vol] 0.9 E9/L Normal 0.2 - 1.0 E9/L Remisol Heme Monocytes/100 WBC (Bld) 5.8 % Normal 4.0 - 14.0 % Remisol Heme Neutrophils (Bld) [#/Vol] 13.2 E9/L High 2.0 - 7.5 E9/L Remisol Heme Neutrophils/100 WBC (Bld) 82.1 % High 36.0 - 75.0 % Remisol Heme Platelet mean volume (Bld) [Entitic vol] 9.4 fL Normal 6.4 - 10.8 fL Remisol Heme Platelets (Bld) [#/Vol] 161.0 E9/L Normal 150. 0 - 500.0 E9/L Remisol Heme RBC (Bld) [#/Vol] 4.0 E12/L Low 4.3 - 5.9 E12/L Remisol Heme WBC corrected for nucl RBC Auto (Bld) [#/Vol] 16.1 E9/L High 4.0 - 11.0 E9/L Remisol Heme Band form neutrophils/100 WBC (Bld) 12 % High 0 - 6 % Remisol Heme Basophils (Bld) [#/Vol] 0.0 E9/L Normal 0.0 - 0.2 E9/L Remisol Heme Basophils/100 WBC (Bld) 0.0 % Normal 0.0 - 2.0 % Remisol Heme Eosinophils (Bld) [#/Vol] 0.0 E9/L Normal 0.0 - 0.5 E9/L Remisol Heme Eosinophils/100 WBC (Bld) 0.0 % Normal 0.0 - 8.0 Remisol Heme Lymphocytes (Bld) [#/Vol] 0.6 E9/L Low 1.0 - 4.0 E9/L Remisol Heme Lymphocytes/100 WBC (Bld) 3.0 % Low 14.0 - 50.0 % Remisol Heme Monocytes (Bld) [#/Vol] 0.8 E9/L Normal 0.2 - 1.0 E9/L Remisol Heme Monocytes/100 WBC (Bld) 4.0 % Normal 4.0 - 14.0 % Remisol Heme Neutrophils (Bld) [#/Vol] 18.5 E9/L Invalid Interpretation Code Remisol Heme RBC size Nom (Bld) NORMAL *NA* (09/19/23 1:05 AM) Invalid Interpretation Code Remisol Heme Segmented neutrophils/100 WBC (Bld) 81.0 % High 36.0 - 75.0 % Remisol Heme Hep Func Panelon 09-19-2023 Albumin [Mass/Vol] 4.2 g/dL Normal 3.3-5.0 [facility] Comment on above: Performed By: #### 2 [id number] #### [facility] [address] [place] [address] Albumin/Globulin (S) [Mass conc ratio] 1.3 Normal 1.1-2.2 [facility] Comment on above: Performed By: #### 2 [id number] #### [facility] [address] [place] [address] ALP [Catalytic activity/Vol] 142 Int._Unit/L High 21-98 [facility] Comment on above: Performed By: #### [id number] #### [facility] [address] [place] [address] ALT No additional P-5'-P [Catalytic activity/Vol] 20 Int._Unit/L Normal 6-46 [facility] Comment on above: Performed By: #### 2 [id number] #### [facility] [address] [place] [address] AST [Catalytic activity/Vol] 22 Int._Unit/L Normal 5-43 [facility] Comment on above: Performed By: #### 2 [id number] #### [facility] [address] [place] [address] Bilirubin [Mass/Vol] 0.5 mg/dL Normal 0.0-1.1 [facility] Comment on above: Performed By: #### [id number] #### [facility] [address] [place] [address] Bilirubin.direct [Mass/Vol] 0.1 mg/dL Normal 0.0-0.4 [facility] Comment on above: Performed By: #### 2 [id number] #### [facility] [address] [place] [address] Bilirubin.indirect [Mass or moles/Vol] 0.4 mg/dL Normal 0.1-0.9 [facility] Comment on above: Performed By: #### 2 [id number] #### [facility] [address] [place] [address] Globulin (S) [Mass/Vol] 3.3 g/dL Normal 1.4-4.0 [facility] Comment on above: Performed By: #### 2 [id number] #### [facility] Laboratory [address] [place] [address] Protein [Mass/Vol] 7.5 g/dL Normal 6.0-7.8 [facility] Comment on above: Performed By: #### 2 [id number] #### [facility] Laboratory [address] [place] [address] Lactic Acidon 09-19-2023 Lactic Acid Lvl 0.8 mmol/L Normal 0.5-2.2 [facility] Comment on above: Performed By: #### 2 [id number] #### [facility] Laboratory [address] [place] [address] Lipase Levelon 09-19-2023 Lipase [Catalytic activity/Vol] 7 U/L Low 13-58 [facility] Comment on above: Performed By: #### 2 [id number] #### [facility] Laboratory [address] [place] [address] UA with Cult Rflxon 09-19-19 24 Type of Urine collection method Clean Catch Normal [facility] Comment on above: Performed By: #### 4 [id number] #### [facility] Laboratory [address] [place] [address] eGFRon 09-19-2023 eGFR 40 mL/min/1.73 m2 Low >=59 [facility] Comment on above: Order Comment: Order added by Discern Expert. Performed By: #### 1 [id number] #### [facility] Laboratory [address] [place] [address] eGFR 34 mL/min/1.73 m2 Low >=59 [facility] Comment on above: Order Comment: Order added by Discern Expert. Performed By: #### 1 [id number] #### [facility] Laboratory [address] [place] [address] ECG 12 lead ECGon 09-18-2023 ECG 12 lead ECG [place] [address] Electrocardiograph Report Signed Patient: Altagracia Conway MR#: [id number] : 1955 Acct:[id number] Age/Sex: 68 / M ADM Date: 09/18/23 Loc: ER Room: Type: [facility] ER Attending Dr: Ordering Provider: Clarence Gonzales DO Date of Service: 09/18/2301/01/2143 ECG/ECG 12 lead ECG: GI BLEED Copies to: Test Reason : Blood Pressure : */* mmHG Vent. Rate : 99 BPM Atrial Rate : 99 BPM P-R Int : 188 ms QRS Dur : 80 ms QT Int : 318 ms P-R-T Axes : 72 71 74 degrees QTcB Int : 408 ms Normal sinus rhythm Normal ECG When compared with ECG of 19-Aug-2023 09:57, No significant change was found Confirmed by CLARENCE GONZALES DO ([id number]) on 09/20/2023 3:29:27 AM Referred By: Electronically Signed By: CLARENCE GONZALES DO Transcribed By: MUS Signed By Clarence Gonzales DO 0329 Normal [facility] CBC w/ Auto Diffon 4 Basophils/100 WBC (Bld) 0.8 % Normal 0.0-2.0 [facility] Comment on above: Performed By: #### 2 [id number] #### [facility] Laboratory [address] [place] [address] Basophils/Leukocytes Auto (Bld) [Pure # fraction] 0.1 E9/L Normal 0.0-0.2 [facility] Comment on above: Performed By: #### 2 [id number] #### [facility] Laboratory [address] [place] [address] Eosinophils (Bld) [#/Vol] 0.8 E9/L High 0.0-0.5 [facility] Comment on above: Performed By: #### 2 [id number] #### [facility] Laboratory [address] [place] [address] Eosinophils/100 WBC (Bld) 9.0 % High 0.0-8.0 [facility] Comment on above: Performed By: #### 2 [id number] #### [facility] Laboratory [address] [place] [address] Erythrocyte distribution width (RBC) [Ratio] 15.2 % High 10.9-14.2 [facility] Comment on above: Performed By: #### 2 [id number] #### [facility] Laboratory [address] [place] [address] Hematocrit (Bld) [Volume fraction] 35.0 % Low 37.7-49.0 [facility] Comment on above: Performed By: #### 2 [id number] #### [facility] Laboratory [address] [place] [address] Hemoglobin (Bld) [Mass/Vol] 11.8 g/dL Low 13.5-17.5 [facility] Comment on above: Performed By: #### 2 [id number] #### [facility] Laboratory [address] [place] [address] Lymphocytes (Bld) [#/Vol] 2.6 E9/L Normal 1.0-4.0 [facility] Comment on above: Performed By: #### 2 [id number] #### [facility] Laboratory [address] [place] [address] Lymphocytes/100 WBC (Bld) 30.7 % Normal 14.0-50.0 [facility] Comment on above: Performed By: #### 2 [id number] #### [facility] Laboratory [address] [place] [address] MCH (RBC) [Entitic mass] 30.0 pg Normal 27.0-34.0 [facility] Comment on above: Performed By: #### 2 [id number] #### [facility] Laboratory [address] [place] [address] MCHC (RBC) [Mass/Vol] 33.6 g/dL Normal 31.4-36.0 [facility] Comment on above: Performed By: #### 2 [id number] #### [facility] Laboratory [address] [place] [address] MCV (RBC) [Entitic vol] 89.3 fL Normal 80.0-100.0 [facility] Comment on above: Performed By: #### 2 [id number] #### [facility] Laboratory [address] [place] [address] Monocytes (Bld) [#/Vol] 0.7 E9/L Normal 0.2-1.0 [facility] Comment on above: Performed By: #### 2 [id number] #### [facility] Laboratory [address] [place] [address] Neutrophils (Bld) [#/Vol] 4.5 E9/L Normal 2.0-7.5 [facility] Comment on above: Performed By: #### 2 [id number] #### [facility] Laboratory [address] [place] [address] Neutrophils/100 WBC (Bld) 51.9 % Normal 36.0-75.0 [facility] Comment on above: Performed By: #### 2 [id number] #### [facility] Laboratory [address] [place] [address] Platelet mean volume (Bld) [Entitic vol] 9.9 fL Normal 6.4-10.8 [facility] Comment on above: Performed By: #### 2 [id number] #### [facility] Laboratory [address] [place] [address] Platelets (Bld) [#/Vol] 172.0 E9/L Normal 150.0-500.0 [facility] Comment on above: Performed By: #### 2 [id number] #### [facility] Laboratory [address] [place] [address] RBC (Bld) [#/Vol] 3.9 E12/L Low 4.3-5.9 [facility] Comment on above: Performed By: #### 2 [id number] #### [facility] Laboratory [address] [place] [address] WBC corrected for nucl RBC Auto (Bld) [#/Vol] 8.6 E9/L Normal 4.0-11.0 [facility] Comment on above: Performed By: #### 2 [id number] #### [facility] Laboratory [address] [place] [address] CHEMISTRYOrdered By: SYSTEM SYSTEM on 09-10-2023 Albumin [Mass/Vol] 4.3 g/dL Normal 3.3 - 5.0 gm/dL [facility] Albumin/Globulin [Mass ratio] 1.5 {ratio} Normal 1.1 - 2.2 [facility] ALP [Catalytic activity/Vol] 161 [iU]/d High 21 - 98 Int._Unit/L [facility] ALT No additional P-5'-P [Catalytic activity/Vol] 20 [iU]/d Normal 6 - 46 Int._Unit/L [facility] Anion gap [Moles/Vol] 13 mmol/L Normal 6 - 16 mEq/L R emisol Chem AST [Catalytic activity/Vol] 19 [iU]/d Normal 5 - 43 Int._Unit/L [facility] Bilirubin [Mass/Vol] 0.3 mg/dL Normal 0.0 - 1 .1 mg/dL [facility] Calcium [Mass/Vol] 9.5 mg/dL Normal 8.9 - 11. 1 mg/dL [facility] Chloride [Moles/Vol] 105 mmol/L Normal 101 - 1 11 mmol/L [facility] Cholesterol [Mass/Vol] 118 mg/dL Low 120 - 200 mg/dL [facility] Cholesterol in HDL [Mass/Vol] 29 mg/dL Invalid Interpretation Code [facility] Comment on above: Result Comment: '>= 60 LOW RISK' '<= 40 HIGH RISK' Cholesterol in LDL [Mass/Vol] 71 mg/dL Normal <=129mg/dL [facility] Cholesterol in VLDL [Mass/Vol] 38 mg/dL Normal 7 - 40 mg/dL [facility] CO2 [Moles/Vol] 25 mmol/L Normal 21 - 31 mmol/L [facility] Creatinine [Mass/Vol] 2.0 mg/dL High 0.5 - 1.3 mg/dL [facility] eGFR 36 mL/min/1.73 m2 Low >=59mL/min /1 .73 m2 [facility] Globulin (S) [Mass/Vol] 2.8 g/dL Normal 1.4 - 4.0 gm/dL [facility] Glucose [Mass/Vol] 95 mg/dL Normal 55 - 199 mg/dL [facility] Potassium [Moles/Vol] 5.6 mmol/L High 3.5 - 5.3 mmol/L [facility] Prostate specific Ag [Mass/Vol] 3.6 ng/mL High 0.1 - 3.5 ng/mL [facility] Comment on above: Interpretive Data: T he concentration of PSA determined by different manufacturers can vary due to differences in assay methods and reagent specificity. Values obtained from different assay methods cannot be used interchangeably. The methodology used for this result was chemiluminescence using [employer]'s Access Hybritech PSA reagent. Protein [Mass/Vol] 7.1 g/dL Normal 6.0 - 7.8 gm/dL [facility] Sodium [Moles/Vol] 137 mmol/L Normal 135 - 145 mmol/L [facility] Triglyceride [Mass/Vol] 191 mg/dL High <=149mg/dL R em[facility] Urea nitrogen [Mass/Vol] 54 mg/dL High 5 - 21 mg/dL [facility] Urea nitrogen/Creatinine [Mass ratio] 27 mg/mg High 10 - 20 [facility] Albumin DL <= 20 mg/L (U) [Mass/Vol] 1.2 mg/dL Normal 0.0 - 1.9 mg/dL [facility] Albumin/Creatinine DL <= 20 mg/L (U) [Mass ratio] 12.0 mg/gm Cr Normal 0.0 - 30.0 mg/gm Cr [facility] Comment on above: Interpretive Data: 3 0-300 mg/g Cr indicates an increased risk for diabetic nephropathy. >300 mg/g Cr is consistent with clinical nephropathy. U Creatinine 99.6 mg/dL Invalid Interpretation Code [facility] CMPon 09-10-2023 Albumin [Mass/Vol] 4.3 g/dL Normal 3.3-5.0 [facility] Comment on above: Performed By: #### 2 [id number] #### [facility] Laboratory [address] [place] [address] Albumin/Globulin (S) [Mass conc ratio] 1.5 Normal 1.1-2.2 [facility] Comment on above: Performed By: #### 2 [id number] #### [facility] Laboratory [address] [place] [address] ALP [Catalytic activity/Vol] 161 Int._Unit/L High 21-98 [facility] Comment on above: Performed By: #### 2 [id number] #### [facility] Laboratory [address] [place] [address] ALT No additional P-5'-P [Catalytic activity/Vol] 20 Int._Unit/L Normal 6-46 [facility] Comment on above: Performed By: #### 2 [id number] #### [facility] Laboratory [address] [place] [address] Anion gap [Moles/Vol] 13 mmol/L Normal 6-16 [facility] Comment on above: Performed By: #### 2 [id number] #### [facility] Laboratory [address] [place] [address] AST [Catalytic activity/Vol] 19 Int._Unit/L Normal 5-43 [facility] Comment on above: Performed By: #### 2 [id number] #### [facility] Laboratory [address] [place] [address] Bilirubin [Mass/Vol] 0.3 mg/dL Normal 0.0-1.1 [facility] Comment on above: Performed By: #### 2 [id number] #### [facility] Laboratory [address] [place] [address] Calcium [Mass/Vol] 9.5 mg/dL Normal 8.9-11.1 [facility] Comment on above: Performed By: #### 2 [id number] #### [facility] Laboratory [address] [place] [address] Chloride [Moles/Vol] 105 mmol/L Normal 101-111 [facility] Comment on above: Performed By: #### 2 [id number] #### [facility] Laboratory [address] [place] [address] CO2 [Moles/Vol] 25 mmol/L Normal 21-31 [facility] Comment on above: Performed By: #### 2 [id number] #### [facility] Laboratory [address] [place] [address] Creatinine [Mass/Vol] 2.0 mg/dL High 0.5-1.3 [facility] Comment on above: Performed By: #### 2 [id number] #### [facility] Laboratory [address] [place] [address] Globulin (S) [Mass/Vol] 2.8 g/dL Normal 1.4-4.0 [facility] Comment on above: Performed By: #### 2 [id number] #### [facility] Laboratory [address] [place] [address] Glucose [Mass/Vol] 95 mg/dL Normal 55-199 [facility] Comment on above: Performed By: #### 2 [id number] #### [facility] Laboratory [address] [place] [address] Potassium [Moles/Vol] 5.6 mmol/L High 3.5-5.3 [facility] Comment on above: Performed By: #### 2 [id number] #### [facility] Laboratory [address] [place] [address] Protein [Mass/Vol] 7.1 g/dL Normal 6.0-7.8 [facility] Comment on above: Performed By: #### 2 [id number] #### [facility] Laboratory [address] [place] [address] Sodium [Moles/Vol] 137 mmol/L Normal 135-145 [facility] Comment on above: Performed By: #### 2 [id number] #### [facility] Laboratory [address] [place] [address] Urea nitrogen [Mass/Vol] 54 mg/dL High 5-21 [facility] Comment on above: Performed By: #### 2 [id number] #### [facility] Laboratory [address] [place] [address] Urea nitrogen/Creatinine [Mass ratio] 27 No Units High 10-20 [facility] Comment on above: Performed By: #### 2 [id number] #### [facility] Laboratory [address] [place] [address] HEMATOLOGYOrdered By: SYSTEM SYSTEM on 09-10-2023 Basophils/100 WBC (Bld) 0.8 % Normal 0.0 - 2.0 % [facility] Basophils/Leukocytes Auto (Bld) [Pure # fraction] 0.1 E9/L Normal 0.0 - 0.2 E9/L [facility] Eosinophils (Bld) [#/Vol] 0.8 E9/L High 0.0 - 0.5 E9/L [facility] Eosinophils/100 WBC (Bld) 9.0 % High 0.0 - 8.0 % [facility] Erythrocyte distribution width (RBC) [Ratio] 15.2 % High 10.9 - 14.2 % [facility] Hematocrit (Bld) [Volume fraction] 35.0 % Low 37.7 - 49.0 % [facility] Hemoglobin (Bld) [Mass/Vol] 11.8 g/dL Low 13.5 - 17.5 gm/dL [facility] Lymphocytes (Bld) [#/Vol] 2.6 E9/L Normal 1.0 - 4.0 E9/L [facility] Lymphocytes/100 WBC (Bld) 30.7 % Normal 14.0 - 50.0 % [facility] MCH (RBC) [Entitic mass] 30.0 pg Normal 27.0 - 34.0 pg [facility] MCHC (RBC) [Mass/Vol] 33.6 g/dL Normal 31.4 - 36.0 gm/dL [facility] MCV (RBC) [Entitic vol] 89.3 fL Normal 80.0 - 100.0 fL [facility] Monocytes (Bld) [#/Vol] 0.7 E9/L Normal 0.2 - 1.0 E9/L [facility] Monocytes/100 WBC (Bld) 7.6 % Normal 4.0 - 14.0 % [facility] Neutrophils (Bld) [#/Vol] 4.5 E9/L Normal 2.0 - 7.5 E9/L [facility] Neutrophils/100 WBC (Bld) 51.9 % Normal 36.0 - 75.0 % [facility] Platelet mean volume (Bld) [Entitic vol] 9.9 fL Normal 6.4 - 10.8 fL [facility] Platelets (Bld) [#/Vol] 172.0 E9/L Normal 150. 0 - 500.0 E9/L [facility] RBC (Bld) [#/Vol] 3.9 E12/L Low 4.3 - 5.9 E12/L [facility] WBC corrected for nucl RBC Auto (Bld) [#/Vol] 8.6 E9/L Normal 4.0 - 11.0 E9/L [facility] Lipid Panelon 09-10-2023 Cholesterol [Mass/Vol] 118 mg/dL Low 120-200 [facility] Comment on above: Performed By: #### 2 [id number] #### [facility] Laboratory [address] [place] [address] Cholesterol in HDL [Mass/Vol] 29 mg/dL Invalid Interpretation Code [facility] Comment on above: Result Comment: '>= 60 LOW RISK' '<= 40 HIGH RISK' Performed By: #### 2 [id number] #### [facility] Laboratory [address] [place] [address] Cholesterol in LDL [Mass/Vol] 71 mg/dL Normal <=129 [facility] Comment on above: Performed By: #### 2 [id number] #### [facility] Laboratory [address] [place] [address] Cholesterol in VLDL [Mass/Vol] 38 mg/dL Normal 7-40 [facility] Comment on above: Performed By: #### 2 [id number] #### [facility] Laboratory [address] [place] [address] Triglyceride [Mass/Vol] 191 mg/dL High <=149 [facility] Comment on above: Performed By: #### 2 [id number] #### [facility] Laboratory [address] [place] [address] PSA Screen, Totalon 09-10-19 24 Prostate specific Ag [Mass/Vol] 3.6 ng/mL High 0.1-3.5 [facility] Comment on above: Result Comment: The concentration of PSA determined by different manufacturers can vary due to differences in assay methods and reagent specificity. Values obtained from different assay methods cannot be used interchangeably. The methodology used for this result was chemiluminescence using [employer]'s Access Hybritech PSA reagent. Performed By: #### 1 [id number] #### [facility] Laboratory [address] [place] [address] U MA/Cr Ratioon 09-10-2023 Albumin DL <= 20 mg/L (U) [Mass/Vol] 1.2 mg/dL Normal 0.0-1.9 [facility] Comment on above: Performed By: #### 1 [id number] #### [facility] Laboratory [address] [place] [address] Albumin/Creatinine DL <= 20 mg/L (U) [Mass ratio] 12.0 mg/gm Cr Normal .0-30.0 [facility] Comment on above: Result Comment: 30-3 00 mg/g Cr indicates an increased risk for diabetic nephropathy. >300 mg/g Cr is consistent with clinical nephropathy. Performed By: #### 1 [id number] #### [facility] Laboratory [address] [place] [address] U Creatinine 99.6 mg/dL Invalid Interpretation Code [facility] Comment on above: Performed By: #### 1 [id number] #### [facility] Laboratory [address] [place] [address] eGFRon 09-10-2023 eGFR 36 mL/min/1.73 m2 Low >=59 [facility] Comment on above: Order Comment: Order added by Discern Expert. Performed By: #### 1 [id number] #### [facility] Laboratory [address] [place] [address] Alanine aminotransferase [En zymatic activity/volume] in Serum or PlasmaOrdered By: Daysi Billimore on 08-19-2023 ALT [Catalytic activity/Vol] 24 U/L Normal 7-52 [facility] Comment on above: Performed By: #### C MP, MARGARET, LIPASE #### [address] Albumin [Mass/volume] in Ser um or Plasma by Bromocresol green (BCG) dye binding methoOrdered By: Daysi Bullimore on 08-19-2023 Albumin BCG dye [Mass/Vol] 4.4 g/dL 3.5-5.7 [facility] Alkaline phosphatase [Enzyma tic activity/volume] in Serum or PlasmaOrdered By: Daysi Bullimore on 08-19-2023 ALP [Catalytic activity/Vol] 206 U/L High 34-104 [facility] Comment on above: Performed By: #### C MP, MARGARET, LIPASE #### [place] [address] [place] Amylase [Enzymatic activity/ volume] in Serum or PlasmaOrdered By: Daysi Bullimore on 08-19-2023 Amylase [Catalytic activity/Vol] 13 U/L Low 29-103 [facility] Comment on above: Performed By: #### C MP, MARGARET, LIPASE #### [place] [address] [place] Aspartate aminotransferase [ Enzymatic activity/volume] in Serum or PlasmaOrdered By: Daysi Bullimore on 08-19-2023 AST [Catalytic activity/Vol] 24 U/L Normal 13-39 [facility] Comment on above: Performed By: #### C MP, MARGARET, LIPASE #### [place] [address] [place] Automated basophil %Ordered By: Daysi Khanimore on 08-19-2023 Basophils/100 WBC (Bld) 0.8 % Normal . [facility] Comment on above: Performed By: #### C BC #### [address] Automated basophil countOrde red By: Daysi Bullimore on 08-19-2023 Basophils (Bld) [#/Vol] 0.1 10*3/uL Normal 0.0-0.2 [facility] Comment on above: Result Comment: PERF ORMED BY: [place] [address] PATHOLOGIST [employer]OLIN REPAIRER NORBERTO PITTS M.D. Performed By: #### C BC #### [address] Automated blood monocyte cou ntOrdered By: Daysi Bullimore on 08-19-2023 Monocytes (Bld) [#/Vol] 0.4 10*3/uL Normal 0.0-0.8 [facility] Comment on above: Performed By: #### C BC #### [address] Automated eosinophil %Ordere d By: Daysi Bullimore on 08-19-2023 Eosinophils/100 WBC (Bld) 2.8 % Normal . [facility] Comment on above: Performed By: #### C BC #### [address] Automated eosinophil countOr dered By: Daysi Bullimore on 08-19-2023 Eosinophils (Bld) [#/Vol] 0.2 10*3/uL Normal 0.0-0.45 [facility] Comment on above: Performed By: #### C BC #### [address] Automated monocyte %Ordered By: Daysi Bullimore on 08-19-2023 Monocytes/100 WBC (Bld) 5.3 % Normal . F [facility] Comment on above: Performed By: #### C BC #### [address] Automated neutrophil %Ordere d By: Daysi Bullimore on 08-19-2023 Neutrophils/100 WBC (Bld) 76.0 % Normal . [facility] Comment on above: Performed By: #### C BC #### [facility] [address] Bacteria [Presence] in Urine by AutomatedOrdered By: Daysi Khanimflorencio on 08-19-2023 Bacteria Auto Ql (U) None seen [HPF] None Seen [facility] Bilirubin Test strip Ql (U)O rdered By: Daysi Bullimore on 08-19-2023 Bilirubin Ql (U) Negative Negative [facility] Bilirubin.total [Mass/volume ] in Serum or PlasmaOrdered By: Daysi Bullimore on 08-19-2023 Bilirubin [Mass/Vol] 0.5 mg/dL Normal 0.3-1.0 [facility] Comment on above: Performed By: #### C MP, MARGARET, LIPASE #### [facility] [address] COVID CepheidOrdered By: Ciarra Garcia on 08-19-2023 SARS-CoV-2 (COVID-19) Ab IA Ql Negative Negative [facility] Comment on above: This is a duplicate Cepheid Xpert Xpress CoV-2/Flu/RSV Plus RNA by RT-PCR result to be used for statistical tracking purpose only. SARS-CoV-2 (COVID-19) RNA ANN+probe Ql (Unsp spec) [facility] COVID-19 / Flu A/B / RSV PCR on 08-19-2023 SARS-CoV-2 (COVID-19) RNA ANN+probe Ql (Unsp spec) COVID-19 Cepheid Result Negative for SARS-CoV-2 RNA by RT-PCR Flu A Cepheid Result Negative for Flu A RNA by RT-PCR Flu B Cepheid Result Negative for Flu B RNA by RT-PCR RSV Cepheid Result Negative for RSV RNA by RT-PCR COVID19 Blank Space -------- Reference: Negative COVID19 Blank Space -------- Cepheid Disclaimer The Cepheid Xpert Xpress CoV-2/Flu/RSV Plus has Cepheid Disclaimer not been FDA cleared or approved; this test has Cepheid Disclaimer been authorized by FDA under an EUA for use by Cepheid Disclaimer authorized laboratories; this test has been Cepheid Disclaimer authorized only for the simultaneous qualitative Cepheid Disclaimer detection and differentiation of nucleic acids from Cepheid Disclaimer SARS-CoV-2, influenza A, influenza B, and Cepheid Disclaimer respiratory syncytial virus (RSV), and not for any Cepheid Disclaimer other viruses or pathogens; and this test is only Cepheid Disclaimer authorized for the duration of the declaration that Cepheid Disclaimer circumstances exist justifying the authorization of Cepheid Disclaimer emergency use of in vitro diagnostic tests for Cepheid Disclaimer detection and/or diagnosis of COVID-19 under Cepheid Disclaimer Section 564(b)(1) of the Act, 21 U.S.C. 360bbb- Cepheid Disclaimer 3(b)(1), unless the authorization is terminated or Cepheid Disclaimer revoked sooner. PERFORMED BY: [place] [address] PATHOLOGIST VIOLIN REPAIRER NORBERTO PITTS M.D. Normal [facility] Comment on above: Performed By: #### C OVID19 FLU RSV, CEPHEID NEG #### [facility] [address] [place] [id number] [place] Calcium [Mass/volume] in Ser um or PlasmaOrdered By: Daysi Garcia on 08-19-2023 Calcium [Mass/Vol] 9.8 mg/dL Normal 8.6-10.3 [facility] Comment on above: Performed By: #### C MP, MARGARET, LIPASE #### [facility] [address] [place] [id number] [place] Carbon dioxide, total [Moles /volume] in Serum or PlasmaOrdered By: Daysi Garcia on 08-19-2023 CO2 [Moles/Vol] 21.3 mmol/L Normal 21.0-31.0 [facility] Comment on above: Performed By: #### C MP, MARGARET, LIPASE #### [address] Cepheid COVID PCR Negativeon 08-19-2023 SARS-CoV-2 (COVID-19) RNA ANN+probe Ql (Unsp spec) Negative Normal Negative [facility] Comment on above: Result Comment: This is a duplicate Cepheid Xpert Xpress CoV-2/Flu/RSV Plus RNA by RT-PCR result to be used for statistical tracking purpose only. PERFORMED BY: [place] [address] PATHOLOGIST VIOLIN REPAIRER NORBERTO PITTS M.D. Performed By: #### C OVID19 FLU RSV, CEPHEID NEG #### [address] Chloride [Moles/volume] in S iqra or PlasmaOrdered By: Daysi Bullimore on 08-19-2023 Chloride [Moles/Vol] 103 mmol/L Normal 98-107 [facility] Comment on above: Performed By: #### C MP, MARGARET, LIPASE #### [address] Color of Urine by AutoOrdere d By: Daysi Bullimore on 08-19-2023 Color (U) Yellow Normal Yellow [facility] Comment on above: Order Comment: Name Collection Type:: Clean-Voided Midstream Performed By: #### A DDONUAPLUS, CUU #### [address] Complete Blood Count Auto Di ffon 08-19-2023 Mean Corpuscular HGB Conc 33.9 g/dL Normal 32.5-35.6 [facility] Comment on above: Performed By: #### C BC #### [address] Monocytes/100 WBC (Bld) 17.35 % Normal 0.00-20.00 [facility] Comment on above: Performed By: #### C BC #### [address] NRBC% 0.0 /100{WBC} Normal 0-0.5 [facility] Comment on above: Performed By: #### C BC #### [address] Comprehensive Metabolic Pane elaine 08-19-2023 Albumin [Mass/Vol] 4.4 g/dL Normal 3.5-5.7 [facility] Comment on above: Performed By: #### C MP, MARGARET, LIPASE #### [address] Creatinine Clr Calc Pharmacy 57.88 Normal [facility] Comment on above: Performed By: #### C MP, MARGARET, LIPASE #### [address] GFR/1.73 sq M.predicted MDRD (S/P/Bld) [Vol rate/Area] 53.257 mL/min/{1.73_m2} Normal [facility] Comment on above: Performed By: #### C MP, MARGARET, LIPASE #### [address] Creatinine [Mass/volume] in Serum or PlasmaOrdered By: Daysi Garcia on 08-19-2023 Creatinine [Mass/Vol] 1.44 mg/dL High 0.70-1.30 [facility] Comment on above: Performed By: #### C MP, MARGARET, LIPASE #### [address] Dipstick and Microscopicon 0 08-19-2023 Bacteria,Urine None Seen Normal None Seen [facility] Comment on above: Order Comment: Name Collection Type:: Clean-Voided Midstream Performed By: #### A DDONUAPLUS, CUU #### [address] Bilirubin,Urine Negative Normal Negative [facility] Comment on above: Order Comment: Name Collection Type:: Clean-Voided Midstream Performed By: #### A DDONUAPLUS, CUU #### [address] Glucose Ql (U) 500 mg/dL High Normal [facility] Comment on above: Order Comment: Name Collection Type:: Clean-Voided Midstream Performed By: #### A DDONUAPLUS, CUU #### [place] [address] [place] Hyaline Casts,Urine 0-8 Normal 0-8 [facility] Comment on above: Order Comment: Name Collection Type:: Clean-Voided Midstream Performed By: #### A DDONUAPLUS, CUU #### [address] Mucus,Urine Rare Normal [facility] Comment on above: Order Comment: Name Collection Type:: Clean-Voided Midstream Result Comment: PERF ORMED BY: [place] [address] PATHOLOGIST VIOLIN REPAIRER NORBERTO PITTS M.D. Performed By: #### A DDONUAPLUS, CUU #### [address] Nitrite,Urine Negative Normal Negative [facility] Comment on above: Order Comment: Name Collection Type:: Clean-Voided Midstream Performed By: #### A DDONUAPLUS, CUU #### [place] [address] [place] Occult Blood,Urine Negative Normal Negative [facility] Comment on above: Order Comment: Name Collection Type:: Clean-Voided Midstream Result Comment: PERF ORMED BY: [place] [address] PATHOLOGIST VIOLIN REPAIRER NORBERTO PITTS M.D. Performed By: #### A DDONUAPLUS, CUU #### [address] Protein,Urine Trace High Negative [facility] Comment on above: Order Comment: Name Collection Type:: Clean-Voided Midstream Performed By: #### A DDONUAPLUS, CUU #### [address] RBC,Urine 3-4 Normal 0-4 [facility] Comment on above: Order Comment: Name Collection Type:: Clean-Voided Midstream Performed By: #### A DDONUAPLUS, CUU #### [address] Specificy [place],Urine 1.021 Normal 1.001-1.030 [facility] Comment on above: Order Comment: Name Collection Type:: Clean-Voided Midstream Performed By: #### A DDONUAPLUS, CUU #### [address] Urobilinogen,Urine Normal Normal Normal [facility] Comment on above: Order Comment: Name Collection Type:: Clean-Voided Midstream Performed By: #### A DDONUAPLUS, CUU #### [address] WBC,Urine 20-49 High 0-4 [facility] Comment on above: Order Comment: Name Collection Type:: Clean-Voided Midstream Performed By: #### A DDONUAPLUS, CUU #### [address] ECG 12 lead ECGon 08-19-2023 ECG 12 lead ECG [facility] [place] [address] [place] [address] Electrocardiograph Report Signed Patient: Altagracia Conway MR#: [id number] 021 : 1955 Acct:[id number] Age/Sex: 67 / M ADM Date: 08/19/23 Loc: ER Room: Type: [facility] ER Attending Dr: Ordering Provider: KELSEY Adler Date of Service: 08/19/2301/02/948 ECG/ECG 12 lead ECG: Nausea/Vomiting/Diarrhe a Copies to: Test Reason : Blood Pressure : / mmHG Vent. Rate : 096 BPM Atrial Rate : 096 BPM P-R Int : 170 ms QRS Dur : 078 ms QT Int : 342 ms P-R-T Axes : 069 079 074 degrees QTc Int : 432 ms Normal sinus rhythm Confirmed by Tayo Moreno DO ([id number]) on 08/19/2023 2:24:28 PM Referred By: Electronically Signed By:Tayo Moreno DO Transcribed By: MUS Signed By Tayo Moreno DO 1424 Normal [facility] Epithelial cells.squamous [# /area] in Urine sediment by Automated countOrdered By: Daysi Khanimore on 08-19-2023 Epithelial cells.squamous Auto (Urine sed) [#/Area] N/A [facility] Erythrocyte distribution wid th [Ratio] by Automated countOrdered By: Daysi Griffinore on 08-19-2023 Erythrocyte distribution width (RBC) [Ratio] 16.0 % High 12.0-14.8 [facility] Comment on above: Performed By: #### C BC #### [facility] [address] Erythrocytes [#/area] in Uri ne sediment by Automated countOrdered By: Daysi Griffinore on 08-19-2023 RBC Auto (Urine sed) [#/Area] 3-4 [HPF] 0-4 [facility] Erythrocytes [#/volume] in B lood by Automated countOrdered By: Daysi Griffinore on 08-19-2023 RBC (Bld) [#/Vol] 4.36 10*6/uL Normal 3.90-5.60 [facility] Comment on above: Performed By: #### C BC #### [facility] [address] Glucose [Mass/volume] in Ser um or PlasmaOrdered By: Daysi Garcia on 08-19-2023 Glucose [Mass/Vol] 331 mg/dL High 70-100 [facility] Comment on above: ADA recommended refe rence rangeRandom Glucose Reference Range is dependent on time and content of last meal. Glucose of more than 200 mg/dL in a nonstressed, ambulatory subject supports the diagnosis of Diabetes Mellitus. Result Comment: [place] om Glucose Reference Range is dependent on time and content of last meal. Glucose of more than 200 mg/dL in a nonstressed, ambulatory subject supports the diagnosis of Diabetes Mellitus. ADA recommended reference range Performed By: #### C MP, MARGARET, LIPASE #### [address] Glucose [Mass/volume] in Uri ne by Test stripOrdered By: Daysi Garcia on 08-19-2023 Glucose Test strip (U) [Mass/Vol] 500 mg/dL High Normal [facility] Hematocrit [Volume Fraction] of Blood by Automated countOrdered By: Daysi Garcia on 08-19-2023 Hematocrit (Bld) [Volume fraction] 37.8 % Low 38.8-50.0 [facility] Comment on above: Performed By: #### C BC #### [address] Hemoglobin Test strip Ql (U) Ordered By: Daysi Garcia on 08-19-2023 Hemoglobin Ql (U) Negative Negative [facility] Hemoglobin [Mass/volume] in BloodOrdered By: Daysi Garcia on 08-19-2023 Hemoglobin (Bld) [Mass/Vol] 12.8 g/dL Low 13.0-17.0 [facility] Comment on above: Performed By: #### C BC #### [address] Hyaline casts [#/area] in Ur ine sediment by Automated countOrdered By: Daysi Garcia on 08-19-2023 Hyaline casts Auto (Urine sed) [#/Area] 0-8 [LPF] 0-8 [facility] Ketones [Presence] in Urine by Test stripOrdered By: Daysi Garcia on 08-19-2023 Ketones Ql (U) 1+ High Negative [facility] Comment on above: Order Comment: Name Collection Type:: Clean-Voided Midstream Performed By: #### A DDONUAPLUS, CUU #### [address] Leukocyte esterase [Presence ] in Urine by Test stripOrdered By: Daysi Garcia on 08-19-2023 Leukocyte esterase Test strip Ql (U) 4+ High Negative [facility] Comment on above: Order Comment: Name Collection Type:: Clean-Voided Midstream Performed By: #### A DDONUAJOSE, CUU #### [facility] [address] [place] [address] [place] Leukocytes [#/area] in Urine sediment by Automated countOrdered By: Daysi Garcia on 08-19-2023 WBC Auto (Urine sed) [#/Area] 20-49 [HPF] High 0-4 [facility] Leukocytes [#/volume] correc lamont for nucleated erythrocytes in Blood by Automated counOrdered By: Daysi Garcia on 08-19-2023 WBC corrected for nucl RBC Auto (Bld) [#/Vol] 7.8 10*3/uL 4.1-10.5 [facility] Leukocytes [#/volume] in Blo od by Automated countOrdered By: Daysi Garcia on 08-19-2023 WBC (Bld) [#/Vol] 7.8 10*3/uL Normal 4.1-10.5 [facility] Comment on above: Performed By: #### C BC #### [facility] [address] [place] [address] Lipase [Enzymatic activity/v olume] in Serum or PlasmaOrdered By: Daysi Garcia on 08-19-2023 Lipase [Catalytic activity/Vol] 19.0 U/L Normal 11.0-82.0 [facility] Comment on above: Result Comment: PERF ORMED BY: [place] [address] PATHOLOGIST VIOLIN REPAIRER NORBERTO PITTS M.D. Performed By: #### C MP, MARGARET, LIPASE #### [facility] [address] [place] [address] [place] Lymphocytes [#/volume] in Bl ood by Automated countOrdered By: Daysi Garcia on 08-19-2023 Lymphocytes (Bld) [#/Vol] 1.2 10*3/uL Normal 1.00-4.8 [facility] Comment on above: Performed By: #### C BC #### [address] Lymphocytes/100 leukocytes i n Blood by Automated countOrdered By: Daysi Bullimore on 08-19-2023 Lymphocytes/100 WBC (Bld) 15.1 % Normal . [facility] Comment on above: Performed By: #### C BC #### [address] MCH [Entitic mass] by Automa lamont countOrdered By: Daysi Bullimore on 08-19-2023 MCH (RBC) [Entitic mass] 29.4 pg Normal 27.5-35.2 [facility] Comment on above: Performed By: #### C BC #### [address] MCHC Auto (RBC) [Mass/Vol]Or dered By: Daysi Bullimore on 08-19-2023 MCHC (RBC) [Mass/Vol] 33.9 g/dL 32.5-35.6 [facility] MCV [Entitic volume] by Auto mated countOrdered By: Daysi Bullimore on 08-19-2023 MCV (RBC) [Entitic vol] 86.7 fL Normal 83.5-101 F [facility] Comment on above: Performed By: #### C BC #### [address] Monocyte distribution width [Entitic volume] in Blood by AutomatedOrdered By: Daysi Bullimore on 08-19-2023 Monocyte distribution width Auto (Bld) [Entitic vol] 17.35 % 0.00-20.00 [facility] Mucus [Presence] in Urine by AutomatedOrdered By: Daysi Bullimore on 08-19-2023 Mucus Auto Ql (U) Rare [LPF] [facility] Neutrophils [#/volume] in Bl ood by Automated countOrdered By: Daysi Bullimore on 08-19-2023 Neutrophils (Bld) [#/Vol] 5.9 10*3/uL Normal 1.8-7.7 [facility] Comment on above: Performed By: #### C BC #### [address] Nitrite Test strip Ql (U)Ord ered By: Daysi Garcia on 08-19-2023 Nitrite Ql (U) Negative Negative [facility] No Panel InformationOrdered By: Daysi Eliasore on 08-19-2023 Estimated GFR (CKD-EPI) 53.257 mL/Min [facility] Creatinine Clearance (Chem 57.88 [facility] Nucleated erythrocytes [Pres ence] in Blood by Automated countOrdered By: Daysi Griffinore on 08-19-2023 Nucleated RBC Auto Ql (Bld) 0.0 /100{WBC} 0-0.5 [facility] Platelet mean volume [Entiti c volume] in Blood by Automated countOrdered By: Daysi Eliasore on 08-19-2023 Platelet mean volume (Bld) [Entitic vol] 9.3 fL Normal 6.6-10.1 [facility] Comment on above: Performed By: #### C BC #### [address] Platelets [#/volume] in Bloo d by Automated countOrdered By: Daysi Garcia on 08-19-2023 Platelets (Bld) [#/Vol] 191 10*3/uL Normal 150-450 [facility] Comment on above: Performed By: #### C BC #### [address] Potassium [Moles/volume] in Serum or PlasmaOrdered By: Daysi Billimore on 08-19-2023 Potassium [Moles/Vol] 5.2 mmol/L High 3.5-5.1 [facility] Comment on above: Performed By: #### C MP, MARGARET, LIPASE #### [place] [address] [place] Protein Test strip (U) [Mass /Vol]Ordered By: Daysi Garcia on 08-19-2023 Protein (U) [Mass/Vol] Trace mg/dL High Negative F [facility] Protein [Mass/volume] in Ser um or PlasmaOrdered By: Daysi Billimore on 08-19-2023 Protein [Mass/Vol] 7.9 g/dL Normal 6.4-8.9 [facility] Comment on above: Performed By: #### C IGOR, MARGARET, LIPASE #### [address] Quick Strepon 08-19-2023 Quick Strep Streptococcus pyogen es Ag [Presence] in Throat by Rapid immunoassay Negative for Group A Strep Antigen Note 1 NOTE 2 Results are those of a screening test. NOTE 3 If clinically indicated please order a culture. NOTE 4 NOTE 5 Reference range = Negative PERFORMED BY: [place] [address] PATHOLOGIST VIOLIN REPAIRER NORBERTO PITTS M.D. Normal [facility] Comment on above: Performed By: #### C IGOR, MARGARET, LIPASE #### [address] Serum globulin measurement b y calculation (mass/volume)Ordered By: Daysi Bullimore on 08-19-2023 Globulin (S) [Mass/Vol] 3.5 g/dL Normal [facility] Comment on above: Performed By: #### C MP, MARGARET, LIPASE #### [address] Serum or plasma albumin/glob ulin mass ratioOrdered By: Daysi Bullimore on 08-19-2023 Albumin/Globulin [Mass ratio] 1.3 {ratio} Normal [facility] Comment on above: Performed By: #### C MP, MARGARET, LIPASE #### [address] Serum or plasma anion gap de terminationOrdered By: Daysi Bullimore on 08-19-2023 Anion gap [Moles/Vol] 14.9 mmol/L Normal 6.0-15.0 [facility] Comment on above: Performed By: #### C MARGARET COSTA, LIPASE #### [address] Sodium [Moles/volume] in Ser um or PlasmaOrdered By: Daysi Bullimore on 08-19-2023 Sodium [Moles/Vol] 134 mmol/L Low 136-145 [facility] Comment on above: Performed By: #### C IGOR, MARGARET, LIPASE #### [address] Specific gravity Test strip (U) [Rel density]Ordered By: Daysi Garcia on 08-19-2023 Specific gravity (U) [Rel density] 1.021 1.001-1.030 [facility] Streptococcus pyogenes antig en detectionOrdered By: Daysi Khanimore on 08-19-2023 S. pyogenes Ag Ql (Unsp spec) [facility] Urea nitrogen [Mass/volume] in Serum or PlasmaOrdered By: Daysi Bullimore on 08-19-2023 Urea nitrogen [Mass/Vol] 35 mg/dL High 7-25 [facility] Comment on above: Performed By: #### C MARGARET COSTA, LIPASE #### [address] Urine Cultureon 08-19-2023 Bacteria identified Cx Nom (U) <9,000 colonies/ml mixed bacterial skin contaminants 2 Days PERFORMED BY: [place] [address] PATHOLOGIST VIOLIN REPAIRER NORBERTO PITTS M.D. Normal [facility] Comment on above: Performed By: #### A TAMMY ALEMANU #### [address] Urine appearanceOrdered By: Daysi Garcia on 08-19-2023 Appearance (U) Clear Normal Clear [facility] Comment on above: Order Comment: Name Collection Type:: Clean-Voided Midstream Performed By: #### A TAMMY ALEMANU #### [facility] [address] [place] [id number] [facility] Urine culture routineOrdered By: Daysi Garcia on 08-19-2023 Bacteria identified Cx Nom (U) 2 Days [facility] Urobilinogen Test strip (U) [Mass/Vol]Ordered By: Daysi Garcia on 08-19-2023 Urobilinogen (U) [Mass/Vol] Normal mg/dL Normal [facility] XR chest 2V*on 08-19-2023 XR chest 2V* [facility] [place] [address] [place] [address] XRay Report Signed Patient: Altagracia Conway MR#: [id number] 021 : 1955 Acct:[id number] Age/Sex: 67 / M ADM Date: 08/19/23 Loc: ER Room: Type: [facility] ER Attending Dr: Copies to: KELSEY Adler Ordering Provider: EKLSEY Adler Date of Service: 08/19/23 XR/XR chest 2V*: Nausea/Vomiting/Diarrhe a PA AND LATERAL CHEST: CLINICAL HISTORY: Cough, shortness of breath, chest congestion, nausea, vomiting and diarrhea. COMPARISON: 05/02/2023 A right-sided [place]-g-Plju catheter is again visualized. A dorsal stimulator is again seen. There is minimal atelectasis or scarring, greatest at the left base. There is no developing consolidation, effusion or pneumothorax. The cardiac, hilar and mediastinal silhouettes are within normal limits. There is no vascular congestion. The visualized bony thorax is intact. Endplate spurring is present at the spine. XR/XR chest 2V* IMPRESSION: NO ACUTE FINDINGS. Impression dictated by: Dee Cuevas M.D.08/19/2023 10:53 AM Dictation Location: [place] [address] Transcribed By: [facility] 08/19/23 1053 Dictated By: Dee Cuevas MD 08/19/23 1051 Signed By: 08/19/23 1053 Normal [facility] pH of Urine by Test stripOrd ered By: Daysi Garcia on 08-19-2023 pH (U) 5.5 [pH] Normal 5.0-9.0 [facility] Comment on above: Order Comment: Name Collection Type:: Clean-Voided Midstream Performed By: #### A VELMA ALEMAN #### [facility] [address] [place] [id number] [facility] US extremity nonvascularon 0 08-15-2023 US extremity nonvascular [facility] [place] [address] [place] [address] Ultrasound Report Signed Patient: Altagracia Conway MR#: [id number] 021 : 1955 Acct:[id number] Age/Sex: 67 / M ADM Date: 08/15/23 Loc: XT Room: Type: [facility] Attending Dr: Margaret Delgado MD Ordering Provider: Margaret Delgado MD Date of Service: 08/15/23 US/US extremity nonvascular: follow up ultrasound suggested Copies to: Margaret Delgado MD Ultrasound of the left groin. HISTORY: Follow-up assessment of left groin lymph node. COMPARISON: 05/24/2023 Multiple left inguinal lymph nodes identified. Largest measures 3.1 x 0.8 x 1.5 cm. This is of similar prior examination. US/US extremity nonvascular IMPRESSION: Similar left inguinal lymph nodes. Impression dictated by: Nasim Duckworth M.D.08/15/2023 12:45 PM Dictation Location: [place] [address] Tech: Nasreen Pastor Transcribed By: ROSI 08/15/23 1245 Dictated By: Nasim Duckworth DO 08/15/23 1244 Signed By: 08/15/23 1245 Normal [facility] PTH [place] 06-20-2023 Parathyrin.intact [Mass/Vol] 46 pg/mL Invalid Interpretation Code 15-65 [facility] Comment on above: Result Comment: Perf ormed at: [facility] [address] [id number] PhD Miriam Sam Performed By: #### 1 [id number] ####[facility] [id number] [place] [id number] Automated leukocytes count i n urine sediment (number/area)on 06-19-2023 WBC Auto (Urine sed) [#/Area] 0-3 [id number] 0-3 [facility] Automated urine specific gra vity by refractometryon 06-19-2023 Specific gravity Refractometry automated (U) [Rel density] 1.011 1.005-1.030 [facility] Bilirubin Auto test strip (U ) [Mass/Vol]on 06-19-2023 Bilirubin (U) [Mass/Vol] Negative Negative [facility] CBC w/Indiceson 06-19-2023 Erythrocyte distribution width (RBC) [Ratio] 16.9 % High 10.9-14.2 [facility] Comment on above: Performed By: #### 2 [id number] #### [facility] [address] [place] [address] Hematocrit (Bld) [Volume fraction] 33.6 % Low 37.7-49.0 [facility] Comment on above: Performed By: #### 2 [id number] #### [facility] [address] [place] [address] Hemoglobin (Bld) [Mass/Vol] 10.9 g/dL Low 13.5-17.5 [facility] Comment on above: Performed By: #### 2 [id number] #### [facility] [address] [place] [address] MCH (RBC) [Entitic mass] 27.8 pg Normal 27.0-34.0 [facility] Comment on above: Performed By: #### 2 [id number] #### [facility] [address] [place] [address] MCHC (RBC) [Mass/Vol] 32.5 g/dL Normal 31.4-36.0 [facility] Comment on above: Performed By: #### 2 [id number] #### [facility] [address] [place] [address] MCV (RBC) [Entitic vol] 85.4 fL Normal 80.0-100.0 [facility] Comment on above: Performed By: #### 2 [id number] #### [facility] [address] [place] [address] Platelet mean volume (Bld) [Entitic vol] 9.4 fL Normal 6.4-10.8 [facility] Comment on above: Performed By: #### 2 [id number] #### [facility] [address] [place] [address] Platelets (Bld) [#/Vol] 194.0 E9/L Normal 150.0-500.0 [facility] Comment on above: Performed By: #### 2 [id number] #### [facility] [address] [place] [address] RBC (Bld) [#/Vol] 3.9 E12/L Low 4.3-5.9 [facility] Comment on above: Performed By: #### 2 [id number] #### [facility] [address] [place] [address] RBC size Nom (Bld) NORMAL Invalid Interpretation Code [facility] Comment on above: Performed By: #### 2 [id number] #### [facility] [address] [place] [address] WBC corrected for nucl RBC Auto (Bld) [#/Vol] 7.5 E9/L Normal 4.0-11.0 [facility] Comment on above: Performed By: #### 2 [id number] #### [facility] [address] [place] [address] CHEMISTRYOrdered By: SYSTEM SYSTEM on 06-19-2023 25-hydroxyvitamin D3 [Mass/Vol] 27.7 ng/mL Low 30.0 - 100.0 ng/mL Remisol Chem eGFR 47 mL/min/1.73 m2 Low >=59mL/min /1 .73 m2 Remisol Chem Phosphate [Mass/Vol] 3.5 mg/dL Normal 1.9 - 4 .6 mg/dL Remisol Chem Urate (U) [Mass/Vol] 5.1 mg/dL Normal 2.2 - 7 .4 mg/dL Remisol Chem Urea nitrogen/Creatinine [Mass ratio] 30 mg/mg High 10 - Remisol Chem U Creatinine 43.5 mg/dL Invalid Interpretation Code Remisol Chem Ur Total Protein mg/dL Invalid Interpretation Code Remisol Chem Color Auto (U)on 06-19-2023 Color (U) Light-Yellow Yellow [facility] Consent for Treatmenton 06-09 Consent for Treatment [id number] IFF Normal [facility] Erythrocyte distribution wid th [Ratio] by Automated countOrdered By: SYSTEM SYSTEM on 06-19-2023 Erythrocyte distribution width (RBC) [Ratio] 16.9 % 10.9-14.2 Rem[facility] Heme Erythrocytes [#/volume] in B lood by Automated countOrdered By: SYSTEM SYSTEM on 06-19-2023 RBC (Bld) [#/Vol] 3.9 E12/L 4.3-5.9 Remisol Heme Estimated glomerular filtrat ion rate (GFR) non- Americanon 06-19-2023 GFR/1.73 sq M.predicted among non-blacks MDRD (S/P/Bld) [Vol rate/Area] 47 mL/min/1.73 m2 >=59 [facility] HEMATOLOGYOrdered By: SYSTEM SYSTEM on 06-19-2023 RBC size Nom (Bld) NORMAL *NA* (06/19/23 10:35 AM) Invalid Interpretation Code Remisol Heme Hematocrit [Volume Fraction] of Blood by Automated countOrdered By: SYSTEM SYSTEM on 06-19-2023 Hematocrit (Bld) [Volume fraction] 33.6 % 37.7-49.0 Remisol Heme Hemoglobin [Mass/volume] in BloodOrdered By: SYSTEM SYSTEM on 06-19-2023 Hemoglobin (Bld) [Mass/Vol] 10.9 g/dL 13.5-17.5 Remisol Heme Ketones Auto test strip (U) [Mass/Vol]on 06-19-2023 Ketones (U) [Mass/Vol] Negative Negative [facility] - Chemistry and C hemistry - challengeOrdered By: SYSTEM SYSTEM on 06-19-2023 Albumin [Mass/Vol] 4.2 g/dL 3.3-5.0 Remiso l Chem Calcium [Mass/Vol] 9.6 mg/dL 8.9-11.1 Remiso l Chem Chloride [Moles/Vol] 102 mmol/L 101-111 Wero annette Chem CO2 [Moles/Vol] 27 mmol/L 21-31 Remisol C hem Creatinine [Mass/Vol] 1.6 mg/dL 0.5-1.3 Rem isol Chem Glucose [Mass/Vol] 223 mg/dL 55-199 Remiso l Chem Magnesium [Mass/Vol] 1.7 mg/dL 1.3-2.4 Wero annette Chem Potassium [Moles/Vol] 5.6 mmol/L 3.5-5.3 Rem isol Chem Sodium [Moles/Vol] 135 mmol/L 135-145 Remiso l Chem Urea nitrogen [Mass/Vol] 48 mg/dL 5-21 [facility] Chem Laboratory - Specimen inform ationon 06-19-2023 Specimen type Nom (Spec) Clean Catch [facility] Leukocytes [#/volume] correc lamont for nucleated erythrocytes in Blood by Automated counOrdered By: SYSTEM SYSTEM on 06-19-2023 WBC corrected for nucl RBC Auto (Bld) [#/Vol] 7.5 E9/L 4.0-11.0 Remisol H omid MCH [Entitic mass] by Automa lamont countOrdered By: SYSTEM SYSTEM on 06-19-2023 MCH (RBC) [Entitic mass] 27.8 pg 27.0-34.0 Remisol Heme MCHC [Mass/volume] by Automa lamont countOrdered By: SYSTEM SYSTEM on 06-19-2023 MCHC (RBC) [Mass/Vol] 32.5 g/dL 31.4-36.0 Rem isol Heme MCV [Entitic volume] by Auto mated countOrdered By: SYSTEM SYSTEM on 06-19-2023 MCV (RBC) [Entitic vol] 85.4 fL 80.0-100.0 R emisol Heme Magnesiumon 06-19-2023 Magnesium [Mass/Vol] 1.7 mg/dL Normal 1.3-2.4 [facility] Comment on above: Performed By: #### 1 [id number] #### [facility] [address] [place] [address] Mucus LM Ql (Urine sed)on Mucus Ql (Urine sed) Negative Negative [facility] No Panel Informationon 06-18 25-Hydroxy Vitamin D Total 27.7 ng/mL 30.0-100.0 [facility] BUN/Creatinine Ratio 30 No Units 10-20 [facility] Parathyroid Hormone (Intact) 46 pg/mL 15-65 [facility] Phosphorus Level 3.5 mg/dL 1.9-4.6 [facility] RBC Size NORMAL [facility] Urine Citric Acid 5.1 mg/dL 2.2-7.4 [facility] Urine Random Creatinine 43.5 mg/dL F [facility] Urine Random Total Protein <6.0 mg/dL [facility] Physician Orderon 06-19-2023 Physician Order [id number]#[id number] TIFF Normal [facility] Platelet mean volume [Entiti c volume] in Blood by Automated countOrdered By: SYSTEM SYSTEM on 06-19-2023 Platelet mean volume (Bld) [Entitic vol] 9.4 fL 6.4-10.8 Remisol Heme Platelets [#/volume] in Bloo d by Automated countOrdered By: SYSTEM SYSTEM on 06-19-2023 Platelets (Bld) [#/Vol] 194.0 E9/L 150.0-500.0 Remisol Heme Protein Auto test strip (U) [Mass/Vol]on 06-19-2023 Protein (U) [Mass/Vol] Negative Negative [facility] Renal Panelon 06-19-2023 Albumin [Mass/Vol] 4.2 g/dL Normal 3.3-5.0 [facility] Comment on above: Performed By: #### 1 [id number] #### [facility] [address] [place] [address] Anion gap [Moles/Vol] 12 mmol/L Normal 6-16 [facility] Comment on above: Performed By: #### 1 [id number] #### [facility] [address] [place] [address] Calcium [Mass/Vol] 9.6 mg/dL Normal 8.9-11.1 [facility] Comment on above: Performed By: #### 1 [id number] #### [facility] [address] [place] [address] Chloride [Moles/Vol] 102 mmol/L Normal 101-111 [facility] Comment on above: Performed By: #### 1 [id number] #### [facility] [address] [place] [address] CO2 [Moles/Vol] 27 mmol/L Normal 21-31 [facility] Comment on above: Performed By: #### 1 [id number] #### [facility] [address] [place] [address] Creatinine [Mass/Vol] 1.6 mg/dL High 0.5-1.3 [facility] Comment on above: Performed By: #### 1 [id number] #### [facility] [address] [place] [address] Glucose [Mass/Vol] 223 mg/dL High 55-199 [facility] Comment on above: Performed By: #### 1 [id number] #### [facility] [address] [place] [address] Phosphate [Mass/Vol] 3.5 mg/dL Normal 1.9-4.6 [facility] Comment on above: Performed By: #### 1 [id number] #### [facility] [address] [place] [address] Potassium [Moles/Vol] 5.6 mmol/L High 3.5-5.3 [facility] Comment on above: Performed By: #### 1 [id number] #### [facility] [address] [place] [address] Sodium [Moles/Vol] 135 mmol/L Normal 135-145 [facility] Comment on above: Performed By: #### 1 [id number] #### [facility] [address] [place] [address] Urea nitrogen [Mass/Vol] 48 mg/dL High 5-21 [facility] Comment on above: Performed By: #### 1 [id number] #### [facility] [address] [place] [address] Urea nitrogen/Creatinine [Mass ratio] 30 No Units High - [facility] Comment on above: Performed By: #### 1 [id number] #### [facility] [address] [place] [address] Serum or plasma anion gap de terminationOrdered By: SYSTEM SYSTEM on 06-19-2023 Anion gap [Moles/Vol] 12 mmol/L 08-24 Rem isol Chem Specific gravity Auto test s trip (U) [Rel density]on 06-19-2023 Specific gravity (U) [Rel density] Clear Clear [facility] U Protein/Creat Ratioon 06-09 Protein/Creatinine (U) [Ratio] 12.90 mg/gm Cr Normal .00-200.00 [facility] Comment on above: Performed By: #### 1 [id number] #### [facility] [address] [place] [address] U Creatinine 43.5 mg/dL Invalid Interpretation Code [facility] Comment on above: Performed By: #### 1 [id number] #### [facility] [address] [place] [address] Ur Total Protein <6.0 Invalid Interpretation Code [facility] Comment on above: Performed By: #### 1 [id number] #### [facility] [address] [place] [address] URINALYSISOrdered By: SYSTEM SYSTEM on 06-19-2023 Color (U) Light-Yellow 1 (06/19/23 10:16 AM) Normal Yellow [facility] UA Auto SS Comment on above: Interpretive Data: M icroscopic readings are only performed on those samples that meet specific criteria set forth by [facility]. Glucose (U) [Mass/Vol] Negative Normal Negat ivemg/d L FT UA Auto SS Ketones Ql (U) Negative Normal Negativemg/d L FT UA Auto SS UA Blood Negative Normal Negativemg/d L FT UA Auto SS UA Clarity Clear (06/19/23 10:16 AM) Normal Clear [facility] UA Auto SS UA Leuk Est 250 Derick/uL Derick/uL Invalid Interpretation Code NegativeLeu/ uL [facility] UA Auto SS UA Mucous Negative Normal Negativegrad ed/LPF [facility] UA Auto SS UA Nitrite Negative Normal Negativemg/d L [facility] UA Auto SS UA pH 5.0 *NA* (06/19/23 10:16 AM) Invalid Interpretation Code 5.0 - 9.0 [facility] UA Auto SS UA Protein Negative Normal Negativemg/d L [facility] UA Auto SS UA RBC 0-3 graded/HPF Normal 0-3graded/HP F [facility] UA Auto SS UA Spec Grav 1.011 *NA* (06/19/23 10:16 AM) Invalid Interpretation Code 1.005 - 1.030 [facility] UA Auto SS UA Urobilinogen Negative Normal Negativemg/d L [facility] UA Auto SS UA WBC 16-25 graded/HPF Invalid Interpretation Code 0-5graded/HP F [facility] UA Auto SS URINALYSISOrdered By: Francisca Rivera on 06-19-2023 UA Spec Desc Clean Catch (06/19/23 10:16 AM) Normal [facility] UA Auto SS Uric Acidon 06-19-2023 Urate (U) [Mass/Vol] 5.1 mg/dL Normal 2.2-7.4 [facility] Comment on above: Performed By: #### 1 [id number] #### [facility] [address] [place] [address] Urinalysis with Microon 06-09 Color (U) Light-Yellow Normal Yellow [facility] Comment on above: Result Comment: Micr oscopic readings are only performed on those samples that meet specific criteria set forth by [facility]. Performed By: #### 1 [id number] #### [facility] [address] [place] [address] Glucose (U) [Mass/Vol] Negative Normal Negative [facility] Comment on above: Performed By: #### 1 [id number] #### [facility] [address] [place] [address] Ketones Ql (U) Negative Normal Negative [facility] Comment on above: Performed By: #### 1 [id number] #### [facility] [address] [place] [address] UA Blood Negative Normal Negative [facility] Comment on above: Performed By: #### 1 [id number] #### [facility] [address] [place] [address] UA Clarity Clear Normal Clear [facility] Comment on above: Performed By: #### 1 [id number] #### [facility] [address] [place] [address] UA Leuk Est 250 Derick/uL Abnormal Negative [facility] Comment on above: Performed By: #### 1 [id number] #### [facility] [address] [place] [address] UA Mucous Negative Normal Negative [facility] Comment on above: Performed By: #### 1 [id number] #### [facility] [address] [place] [address] UA Nitrite Negative Normal Negative [facility] Comment on above: Performed By: #### 1 [id number] #### [facility] [address] [place] [address] UA pH 5.0 Invalid Interpretation Code 5.0-9.0 [facility] Comment on above: Performed By: #### 1 [id number] #### [facility] [address] [place] [address] UA Protein Negative Normal Negative [facility] Comment on above: Performed By: #### 1 [id number] #### [facility] [address] [place] [address] UA RBC 0-3 Normal 0-3 [facility] Comment on above: Performed By: #### 1 [id number] #### [facility] [address] [place] [address] UA Spec Grav 1.011 Invalid Interpretation Code 1.005-1.030 [facility] Comment on above: Performed By: #### 1 [id number] #### [facility] [address] [place] [address] UA Urobilinogen Negative Normal Negative [facility] Comment on above: Performed By: #### 1 [id number] #### [facility] [address] [place] [address] UA WBC 16-25 Abnormal 0-5 [facility] Comment on above: Performed By: #### 1 [id number] #### [facility] [address] [place] [address] Urobilinogen (U) [Mass/Vol] Negative Normal Negative [facility] Comment on above: Performed By: #### 1 [id number] #### [facility] [address] [place] [address] UA Spec Desc Clean Catch Normal [facility] Comment on above: Performed By: #### 1 [id number] #### [facility] [address] [place] [address] Urine glucose measurement by test strip (mass/volume)on 06-19-2023 Glucose Test strip (U) [Mass/Vol] Negative Negative [facility] Urine hemoglobin detection b y automated test stripon 06-19-2023 Hemoglobin Auto test strip Ql (U) Negative Negative [facility] Urine nitrite detection by a utomated test stripon 06-19-2023 Nitrite Auto test strip Ql (U) 250 Derick/uL [id number] Negative [facility] Nitrite Auto test strip Ql (U) Negative Negative [facility] Urine protein/creatinine rat ioOrdered By: SYSTEM SYSTEM on 06-19-2023 Protein/Creatinine (U) [Ratio] 12.90 mg/gm Cr .00-200.00 [facility] Chem Urine sediment leukocyte cou nt by microscopy (number/high power field)on 06-19-2023 WBC LM.HPF (Urine sed) [#/Area] 16-25 [id number] 0-5 [facility] Urine urobilinogen measureme nt by automated test strip (mass/volume)Ordered By: SYSTEM SYSTEM on 06-19-2023 Urobilinogen (U) [Mass/Vol] Negative Negative [facility] UA Auto SS Vitamin D 25 Hydroxyon 06-18 25-hydroxyvitamin D3 [Mass/Vol] 27.7 ng/mL Low 30.0-100.0 [facility] Comment on above: Performed By: #### 1 [id number] #### [facility] [address] [place] [address] eGFRon 06-19-2023 eGFR 47 mL/min/1.73 m2 Low >=59 [facility] Comment on above: Order Comment: Order added by Discern Expert. Performed By: #### 1 [id number] #### [facility] [address] [place] [address] pH Auto test strip (U)on pH (U) 5.0 [pH] 5.0-9.0 [facility] US extremity nonvascularon 0 05-24-2023 US extremity nonvascular [facility] [place] [address] [place], [place] [id number] Ultrasound Report Signed Patient: Altagracia Conway MR#: [id number] 021 : 1955 Acct:[id number] Age/Sex: 67 / M ADM Date: 05/24/23 Loc: Room: [facility] Attending Dr: Margaret Delgado MD Ordering Provider: Margaret Delgado MD Date of Service: 05/24/23 US/US extremity nonvascular: Recommeded By recent imaging Hx of pancreatic ca Copies to: Margaret Delgado MD Soft tissue ultrasound. Reason for exam: Abnormal CT of the abdomen. COMPARISON: CT abdomen and pelvis 04/11/2023. TECHNIQUE: Grayscale and color Doppler images of the left groin region were obtained. FINDINGS: Ultrasound imaging of the left groin region demonstrates benign-appearing lymph nodes noted, largest measuring 3.4 x 0.9 x 1.2 cm. No solid mass or fluid collection is seen. US/US extremity nonvascular IMPRESSION: In the area of concern involving the left groin region, benign-appearing lymph nodes are noted, largest measuring 3.4 cm. Findings may BE reactive. Ultrasound follow-up after therapy is suggested to ensure resolution. Impression dictated by: Rey Dove Jr., D.O.05/24/2023 4:10 PM Dictation Location: [place] [address] Tech: Lida Tony Transcribed By: ROSI 05/24/23 1610 Dictated By: Rey Dove Jr, 05/24/23 1558 Signed By: 05/24/23 1610 Normal [facility] Tae 05-22-2023 CNPN Telephone (PAMAVN) ALTAGRACIA CONWAY ([id number]) 1955 M [facility] Date Time Provider Department 05/22/23 ELBA HENRY During your visit today, we recorded the following information about you: Elba Henry PA-C 05/22/2023 3:[address] Jordan Ortega reviewed, he recommends [facility] for other treatment options including possible ketamine infusions. Please advise Altagracia Conway of the above recommendations. Elba Henry PA-C May 22, 2023 Cathy Garcia, DEBRA 05/22/2023 3:33 PM Signed Called and left voice mail message for patient informing him of this message from Marilyn Henry: Dr. Jordan Ortega reviewed, he recommends [facility] for other treatment options including possible ketamine infusions. Please advise Altagracia Conway of the above recommendations. Elba Henry PA-C May 22, 2023 Left number for [facility] on message for patient to schedule an appointment for evaluation. Allergies As of Date: 05/22/2023 Noted Allergy Reaction POLLEN 01/22/2002 Comments: runny itchy eyes and nose Date Reviewed: 05/14/2023 Reviewed by: Elba Henry PA-C - Fully Assessed Reason for Visit: Appointment [186] Primary Visit Diagnosis:Type 2 diabetes mellitus with diabetic polyneuropathy, with long-term current use of insulin (HCC) [E11.42, Z79.4] Other Visit Diagnoses:Bilateral foot pain [M79.671, M79.672] Spinal cord stimulator status [Z96.89] Order(s):CONSULT TO [facility] ([facility]) [0652840] Order #: [id number]: 1 FUTURE Prescriptions as of 05/22/2023 - insulin lispro protamin/lispro (HUMALOG MIX 50-50 KWIKPEN SUBCUTANEOUS) Inject 34 Units subcutaneously DAILY (6 AM). - insulin degludec (TRESIBA FLEXTOUCH U-100) 100 unit/mL (3 mL) injection pen 34 Applicators by abdominal subcutaneous route once daily. - blood-glucose sensor (DEXCOM G7 SENSOR MISC) 1 Each. - insulin aspart U-100 (NOVOLOG FLEXPEN U-100 INSULIN) 100 unit/mL (3 mL) 60 units in morning, 60 units for lunch, and sliding scale for dinner - amlodipine besylate (AMLODIPINE ORAL) Take 10 mg by mouth once daily. - levomilnacipran (FETZIMA) 120 mg ER capsule Take 160 mg by mouth once daily. - tamsulosin (FLOMAX) 0.4 mg Take 0.4 mg by mouth once daily. - furosemide (LASIX) 20 mg tablet Take 20 mg by mouth once daily. - mirtazapine (REMERON) 45 mg tablet Take 45 mg by mouth daily at bedtime. - pregabalin (LYRICA) 150 mg capsule Take 150 mg by mouth. Weaning off medication - CREON 36,000-114,000- 180,000 unit delayed release capsule Take 2 capsules by mouth three times daily. - budesonide-formoterol (SYMBICORT) 160-4.5 mcg/actuation inhaler Inhale 2 Puffs as instructed twice daily. - albuterol HFA (PROVENTIL HFA, VENTOLIN HFA) 90 mcg/actuation inhaler Inhale 2 Puffs as instructed every 4 hours as needed for Wheezing/Shortness of Breath. - lisinopril(PRINIVIL 20 MG TAB) Take one(1) tablet daily. - atorvastatin calcium(LIPITOR 10 MG TAB) Take one(1) tablet daily. - lorazepam(ATIVAN 1 MG TAB) Take by mouth. 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, T*08/13/2022 Bilateral foot pain [M79.671, M79.672] 08/13/2022 Bilateral hand pain [M79.641, M79.642] 08/13/2022 Recurrent major depression in remission (HCC) [*09/07/2022 History of amputation of right great toe (HCC) *09/07/2022 Hypertension [I10] 10/18/2022 Hyperlipidemia [E78.5] 10/18/2022 Current smoker [F17.200] 10/18/2022 Obesity (BMI 30-39.9) [E66.9] 10/18/2022 Malignant neoplasm of pancreas (HCC) [C25.9] 10/19/2022 Stage 3 chronic kidney disease (HCC) [N18.30] 10/19/2022 Chronic obstructive pulmonary disease (HCC) [J4*10/19/2022 Obesity, Class I, BMI 30-34.9 [E66.9] 03/29/2023 Encounter Status:Closed by ELBA HENRY on 05/22/23 Normal [facility] Alanine aminotransferase [En zymatic activity/volume] in Serum or PlasmaOrdered By: Dylan Vazquez on 05-16-2023 ALT [Catalytic activity/Vol] 77 U/L [address] Comment on above: Performed By: #### C BC #### [facility] [address] [place] [address] ALT [Catalytic activity/Vol] Alanine aminotransferase [Enzymatic activity/volume] in Serum or Plasma [address] Albumin [Mass/volume] in Ser um or PlasmaOrdered By: Dylan Vazquez on 05-16-2023 Albumin [Mass/Vol] 3.8 g/dL Normal 2.9-4.4 [facility] Comment on above: Performed By: #### C MP, MARGARET, LIPASE #### [facility] [address] Albumin [Mass/volume] in Ser um or Plasma by Bromocresol green (BCG) dye binding methoOrdered By: Dylan Krugermessi on 05-16-2023 Albumin BCG dye [Mass/Vol] 4.2 g/dL 3.5-5.7 [facility] Albumin BCG dye [Mass/Vol] Albumin [Mass/volume] in Serum or Plasma by Bromocresol green (BCG) dye binding metho 3.5-5.7 [facility] Alkaline phosphatase [Enzyma tic activity/volume] in Serum or PlasmaOrdered By: Dylan Culverjesse on 05-16-2023 ALP [Catalytic activity/Vol] 311 U/L [facility] 34-104 [facility] Comment on above: Performed By: #### C BC #### [address] ALP [Catalytic activity/Vol] Alkaline phosphatase [Enzymatic activity/volume] in Serum or Plasma [address] Aspartate aminotransferase [ Enzymatic activity/volume] in Serum or PlasmaOrdered By: Dylan Culverjesse on 05-16-2023 AST [Catalytic activity/Vol] 102 U/L [address] Comment on above: Performed By: #### C BC #### [address] AST [Catalytic activity/Vol] Aspartate aminotransferase [Enzymatic activity/volume] in Serum or Plasma [address] Automated basophil %Ordered By: Dylan Culverjesse on 05-16-2023 Basophils/100 WBC (Bld) 1.2 % Normal . F [facility] Comment on above: Performed By: #### C BC #### [address] Automated basophil countOrde red By: Dylan Culverjesse on 05-16-2023 Basophils (Bld) [#/Vol] 0.1 10*3/uL Normal 0.0-0.2 [facility] Comment on above: Result Comment: PERF ORMED BY: [place] [address] PATHOLOGIST [employer] NORBERTO PITTS M.D. Performed By: #### C BC #### [address] Automated blood monocyte cou ntOrdered By: Dylan George on 05-16-2023 Monocytes (Bld) [#/Vol] 0.6 10*3/uL Normal 0.0-0.8 [facility] Comment on above: Performed By: #### C BC #### [address] Automated eosinophil %Ordere d By: Dylan George on 05-16-2023 Eosinophils/100 WBC (Bld) 8.0 % Normal . [facility] Comment on above: Performed By: #### C BC #### [address] Automated eosinophil countOr dered By: Dylan George on 05-16-2023 Eosinophils (Bld) [#/Vol] 0.6 10*3/uL High 0.0-0.45 [facility] Comment on above: Performed By: #### C BC #### [address] Automated monocyte %Ordered By: Dylan George on 05-16-2023 Monocytes/100 WBC (Bld) 8.0 % Normal . [facility] Comment on above: Performed By: #### C BC #### [address] Automated neutrophil %Ordere d By: Dylan George on 05-16-2023 Neutrophils/100 WBC (Bld) 64.9 % Normal . [facility] Comment on above: Performed By: #### C BC #### [address] Basophils Auto (Bld) [#/Vol] Ordered By: Dylan Georeg on 05-16-2023 Basophils (Bld) [#/Vol] Automated basoph il count 0.0-0.2 [facility] Basophils/100 WBC Auto (Bld) Ordered By: Dylan eGorge on 05-16-2023 Basophils/100 WBC (Bld) Automated basophil % . [facility] Bilirubin.total [Mass/volume ] in Serum or PlasmaOrdered By: Dylan Culverjesse on 05-16-2023 Bilirubin [Mass/Vol] 0.3 mg/dL Normal 0.3-1.0 [facility] Comment on above: Performed By: #### C BC #### [address] Bilirubin [Mass/Vol] Bilirubin.total [Mass/volume] in Serum or Plasma 0.3-1.0 [facility] Calcium [Mass/volume] in Ser um or PlasmaOrdered By: Dylan Culverjesse on 05-16-2023 Calcium [Mass/Vol] 9.3 mg/dL Normal 8.6-10.3 [facility] Comment on above: Performed By: #### C BC #### [address] Calcium [Mass/Vol] Calcium [Mass/volume ] in Serum or Plasma 8.6-10.3 [facility] Carbohydrate Antigen 19-9on 05-16-2023 Carbohydrate Antigen 19-9 23 Normal 0-35 [facility] Comment on above: Result Comment: [employer] Electrochemiluminescence Immunoassay (ECLIA) Values obtained with different assay methods or kits cannot be used interchangeably. Results cannot be interpreted as absolute evidence of the presence or absence of malignant disease. Performed at: [address] [id number] Gravel Hauler: Flaco Pineda PhD, Phone: [phone] Performed By: #### C MPMARGARET, LIPASE #### [place] [address] [place] Carbon dioxide, total [Moles /volume] in Serum or PlasmaOrdered By: Dylan George on 05-16-2023 CO2 [Moles/Vol] 24.6 mmol/L Normal 21.0-31.0 [facility] Comment on above: Performed By: #### C BC #### [place] [id number] [place] CO2 [Moles/Vol] Carbon dioxide, tota l [Moles/volume] in Serum or Plasma 21.0-31.0 [facility] Chloride [Moles/volume] in S iqra or PlasmaOrdered By: Dylan George on 05-16-2023 Chloride [Moles/Vol] 103 mmol/L Normal 98-107 [facility] Comment on above: Performed By: #### C BC #### [address] Chloride [Moles/Vol] Chloride [Moles/vol ume] in Serum or Plasma 98-107 [facility] Complete Blood Count Auto Di ffon 05-16-2023 Mean Corpuscular HGB Conc 33.0 g/dL Normal 32.5-35.6 [facility] Comment on above: Performed By: #### C BC #### [facility] [address] NRBC% 0.1 /100{WBC} Normal 0-0.5 [facility] Comment on above: Performed By: #### C BC #### [address] Comprehensive Metabolic Pane elaine 05-16-2023 Albumin [Mass/Vol] 4.2 g/dL Normal 3.5-5.7 [facility] Comment on above: Performed By: #### C BC #### [address] Creatinine Clr Calc Pharmacy 58.46 Normal [facility] Comment on above: Performed By: #### C BC #### [address] GFR/1.73 sq M.predicted MDRD (S/P/Bld) [Vol rate/Area] 46.932 mL/min/{1.73_m2} Normal [facility] Comment on above: Performed By: #### C BC #### [facility] [address] [place] [address] [place] Creatinine [Mass/volume] in Serum or PlasmaOrdered By: Dylan Vazquez on 05-16-2023 Creatinine [Mass/Vol] 1.60 mg/dL High 0.70-1.30 [facility] Comment on above: Performed By: #### C BC #### [place] [address] [place] Eosinophils Auto (Bld) [#/Vo l]Ordered By: Dylan Vazquez on 05-16-2023 Eosinophils (Bld) [#/Vol] Automated eosinophil count High 0.0-0.45 [facility] Eosinophils/100 WBC Auto (Bl d)Ordered By: Dylan Vazquez on 05-16-2023 Eosinophils/100 WBC (Bld) Automated eosinophil % . [facility] Erythrocyte distribution wid th Auto (RBC) [Ratio]Ordered By: Dylan Krugermessi on 05-16-2023 Erythrocyte distribution width (RBC) [Ratio] Erythrocyte distribution width [Ratio] by Automated count High 12.0-14.8 [facility] Erythrocyte distribution wid th [Ratio] by Automated countOrdered By: Dylan Krugermessi on 05-16-2023 Erythrocyte distribution width (RBC) [Ratio] 14.9 % High 12.0-14.8 [facility] Comment on above: Performed By: #### C BC #### [address] Erythrocytes [#/volume] in B lood by Automated countOrdered By: Dylan Vazquez on 05-16-2023 RBC (Bld) [#/Vol] 4.20 10*6/uL Normal 3.90-5.60 [facility] Comment on above: Performed By: #### C BC #### [address] Erythropoetin (EPO), Serumon 05-16-2023 Erythropoetin (EPO), Serum 7.1 m[iU]/mL Normal 2.6-18.5 [facility] Comment on above: Result Comment: Didi-[employer]ache UniCel DxI 800 Immunoassay System Values obtained with different assay methods or kits cannot be used interchangeably. Results cannot be interpreted as absolute evidence of the presence or absence of malignant disease. Performed at: [address] [id number] Gra[employer] Hauler: Flaco Pineda PhD, Phone: [phone] Performed By: #### C MP, MARGARET, LIPASE #### [address] Ferritin [Mass/volume] in Se rum or PlasmaOrdered By: Dylan Vazquez on 05-16-2023 Ferritin [Mass/Vol] 110.5 ng/mL Normal 23.9-336.2 [facility] Comment on above: Result Comment: PERF ORMED BY: [place] [address] PATHOLOGIST [employer] REPAIRER NORBERTO PITTS M.D. Performed By: #### C MP, MARGARET, LIPASE #### [place] [address] [place] Ferritin [Mass/Vol] Ferritin [Mass/volum e] in Serum or Plasma 23.9-336.2 [facility] Free K+L LT Chains, Qn, Son 05-16-2023 Free [place] Light Chains, S 50.7 mg/L High 3.3-19.4 [facility] Comment on above: Performed By: #### C MP, MARGARET, LIPASE #### [address] Free Lambda Light Chains, S 27.2 mg/L High 5.7-26.3 [facility] Comment on above: Performed By: #### C MP, MARGARET, LIPASE #### [address] [place]/Lambda Ratio, S 1.86 High 0.26-1.65 [facility] Comment on above: Result Comment: Perf ormed at: - [facility] [id number] Gravel Hauler: Flaco Pineda PhD, Phone: [phone] PERFORMED BY: [place] [address] PATHOLOGIST [employer]OLIN REPAIRER NORBERTO PITTS M.D. Performed By: #### C MP, MARGARET, LIPASE #### [address] Globulin Calc (S) [Mass/Vol] Ordered By: Dylan Vazquez on 05-16-2023 Globulin (S) [Mass/Vol] Serum globulin measurement by calculation (mass/volume) [facility] Glucose [Mass/volume] in Ser um or PlasmaOrdered By: Dylan George on 05-16-2023 Glucose [Mass/Vol] 235 mg/dL High 70-100 [facility] Comment on above: ADA recommended refe rence rangeRandom Glucose Reference Range is dependent on time and content of last meal. Glucose of more than 200 mg/dL in a nonstressed, ambulatory subject supports the diagnosis of Diabetes Mellitus. Result Comment: [place] om Glucose Reference Range is dependent on time and content of last meal. Glucose of more than 200 mg/dL in a nonstressed, ambulatory subject supports the diagnosis of Diabetes Mellitus. ADA recommended reference range Performed By: #### C BC #### [address] Glucose [Mass/Vol] Glucose [Mass/volume ] in Serum or Plasma High 70-100 [facility] Comment on above: ADA recommended refe rence rangeRandom Glucose Reference Range is dependent on time and content of last meal. Glucose of more than 200 mg/dL in a nonstressed, ambulatory subject supports the diagnosis of Diabetes Mellitus. Hematocrit Auto (Bld) [Volum e fraction]Ordered By: Dylan Vazquez on 05-16-2023 Hematocrit (Bld) [Volume fraction] Hematocrit [Volume Fraction] of Blood by Automated count Low 38.8-50.0 [facility] Hematocrit [Volume Fraction] of Blood by Automated countOrdered By: Dylan Vazquez on 05-16-2023 Hematocrit (Bld) [Volume fraction] 35.5 % Low 38.8-50.0 [facility] Comment on above: Performed By: #### C BC #### [facility] [address] [place] [address] [place] Hemoglobin [Mass/volume] in BloodOrdered By: Dylan Vazquez on 05-16-2023 Hemoglobin (Bld) [Mass/Vol] 11.7 g/dL Low 13.0-17.0 [facility] Comment on above: Performed By: #### C BC #### [facility] [address] [place] [address] [place] Hemoglobin (Bld) [Mass/Vol] Hemoglobin [Mass/volume] in Blood Low 13.0-17.0 [facility] IgA [Mass/volume] in Serum o r PlasmaOrdered By: Dylan George on 05-16-2023 IgA [Mass/Vol] 302 mg/dL 61-437 [facility] IgG [Mass/volume] in Serum o r PlasmaOrdered By: Dylan George on 05-16-2023 IgG [Mass/Vol] 1081 mg/dL 603-1613 [facility] IgM [Mass/volume] in Serum o r PlasmaOrdered By: Dylan George on 05-16-2023 IgM [Mass/Vol] 89 mg/dL 20-172 [facility] Immunofixation,Serumon 05-15 Immunofixation, Serum Normal . [facility] Comment on above: Result Comment: No m onoclonality detected. Performed By: #### C MP, MARGARET, LIPASE #### [facility] [address] [place] [address] [place] Immunoglobulin A, Serum 302 mg/dL Normal 61-437 [facility] Comment on above: Performed By: #### C MP, MARGARET, LIPASE #### [facility] [address] [place] [address] [place] Immunoglobulin G 1081 mg/dL Normal 603-1613 [facility] Comment on above: Performed By: #### C MP, MARGARET, LIPASE #### [facility] [address] [place] [address] [place] Immunoglobulin M, Serum 89 mg/dL Normal 20-172 [facility] Comment on above: Performed By: #### C MP, MARGARET, LIPASE #### [facility] [address] [place] [address] [facility] Immunoglobulin light chains. kappa.free [Mass/volume] in SerumOrdered By: Dylan George on 05-16-2023 Immunoglobulin light chains.kappa.free (S) [Mass/Vol] 50.7 mg/L High 3.3-19.4 [facility] Immunoglobulin light chains. kappa.free/Immunoglobulin light chains.lambda.free [MassOrdered By: Dylan Vazquez on 05-16-2023 Immunoglobulin light chains.kappa.free/Immun oglobulin light chains.lambda.free (S) [Mass ratio] 1.86 High 0.26-1.65 [facility] Comment on above: Performed at: [address] [id number] Director: Flaco Pineda PhD, Phone: [phone] Immunoglobulin light chains. lambda.free [Mass/volume] in Serum or PlasmaOrdered By: Dylan Vazquez on 05-16-2023 Immunoglobulin light chains.lambda.free [Mass/Vol] 27.2 mg/L High 5.7-26.3 [facility] Iron [Mass/volume] in Serum or PlasmaOrdered By: Dylan Vazquez on 05-16-2023 Iron [Mass/Vol] 85 ug/dL Normal 50-212 [facility] Comment on above: Performed By: #### C IGOR, MARGARET, LIPASE #### [address] Iron [Mass/Vol] Iron [Mass/volume] i n Serum or Plasma 50-212 [facility] Iron and TIBC Profileon % Iron Saturation 21.0 % Normal 20-50 [facility] Comment on above: Performed By: #### C MP, MARGARET, LIPASE #### [facility] [address] [place] [address] Total Iron Binding Capacity 405 ug/dL Normal 255-450 [facility] Comment on above: Performed By: #### C MP, MARGARET, LIPASE #### [facility] [address] [place] [address] Iron binding capacity [Mass/ volume] in Serum or PlasmaOrdered By: Dylan Vazquez on 05-16-2023 Iron binding capacity [Mass/Vol] 405 ug/dL 255-450 [facility] Iron saturation [Mass Fracti on] in Serum or PlasmaOrdered By: Dylan Vazquez on 05-16-2023 Iron saturation [Mass fraction] 21.0 % 20-50 [facility] Leukocytes [#/volume] correc lamont for nucleated erythrocytes in Blood by Automated counOrdered By: Dylan Vazquez on 05-16-2023 WBC corrected for nucl RBC Auto (Bld) [#/Vol] 7.0 10*3/uL 4.1-10.5 [facility] WBC corrected for nucl RBC Auto (Bld) [#/Vol] Leukocytes [#/volume] corrected for nucleated erythrocytes in Blood by Automated coun 4.1-10.5 [facility] Leukocytes [#/volume] in Blo od by Automated countOrdered By: Dylan George on 05-16-2023 WBC (Bld) [#/Vol] 7.0 10*3/uL Normal 4.1-10.5 [facility] Comment on above: Performed By: #### C BC #### [address] Lymphocytes Auto (Bld) [#/Vo l]Ordered By: Dylan Vazquez on 05-16-2023 Lymphocytes (Bld) [#/Vol] Lymphocytes [#/volume] in Blood by Automated count 1.00-4.8 [facility] Lymphocytes [#/volume] in Bl ood by Automated countOrdered By: Dylan Vazquez on 05-16-2023 Lymphocytes (Bld) [#/Vol] 1.3 10*3/uL Normal 1.00-4.8 [facility] Comment on above: Performed By: #### C BC #### [address] Lymphocytes/100 WBC Auto (Bl d)Ordered By: Dylan Vazquez on 05-16-2023 Lymphocytes/100 WBC (Bld) Lymphocytes/100 leukocytes in Blood by Automated count . [facility] Lymphocytes/100 leukocytes i n Blood by Automated countOrdered By: Dylan Vazquez on 05-16-2023 Lymphocytes/100 WBC (Bld) 17.9 % Normal . [facility] Comment on above: Performed By: #### C BC #### [address] MCH Auto (RBC) [Entitic mass ]Ordered By: Dylan Vazquez on 05-16-2023 MCH (RBC) [Entitic mass] MCH [Entitic mass] by Automated count 27.5-35.2 [facility] MCH [Entitic mass] by Automa lamont countOrdered By: Dylan Vazquez on 05-16-2023 MCH (RBC) [Entitic mass] 27.9 pg Normal 27.5-35.2 [facility] Comment on above: Performed By: #### C BC #### [address] MCHC Auto (RBC) [Mass/Vol]Or dered By: Dylan Vazquez on 05-16-2023 MCHC (RBC) [Mass/Vol] 33.0 g/dL 32.5-35.6 [facility] MCHC (RBC) [Mass/Vol] MCHC [Mass/volume] by Automated count 32.5-35.6 [facility] MCV Auto (RBC) [Entitic vol] Ordered By: Dylan Vazquez on 05-16-2023 MCV (RBC) [Entitic vol] MCV [Entitic vol ume] by Automated count 83.5-101 [facility] MCV [Entitic volume] by Auto mated countOrdered By: Dylan Vazquez on 05-16-2023 MCV (RBC) [Entitic vol] 84.6 fL Normal 83.5-101 [facility] Comment on above: Performed By: #### C BC #### [address] Monocytes Auto (Bld) [#/Vol] Ordered By: Dylan Vazquez on 05-16-2023 Monocytes (Bld) [#/Vol] Automated blood monocyte count 0.0-0.8 [facility] Monocytes/100 WBC Auto (Bld) Ordered By: Dylan Vazquez on 05-16-2023 Monocytes/100 WBC (Bld) Automated monocyte % . [facility] Neutrophils Auto (Bld) [#/Vo l]Ordered By: Dylan Vazquez on 05-16-2023 Neutrophils (Bld) [#/Vol] Neutrophils [#/volume] in Blood by Automated count 1.8-7.7 [facility] Neutrophils [#/volume] in Bl ood by Automated countOrdered By: Dylan Vazquez on 05-16-2023 Neutrophils (Bld) [#/Vol] 4.6 10*3/uL Normal 1.8-7.7 [facility] Comment on above: Performed By: #### C BC #### [facility] [address] [place] [address] [place] Neutrophils/100 WBC Auto (Bl d)Ordered By: Dylan Vazquez on 05-16-2023 Neutrophils/100 WBC (Bld) Automated neutrophil % . [facility] No Panel InformationOrdered By: Dylan Vazquez on 05-16-2023 Estimated GFR (CKD-EPI) 46.932 mL/Min [facility] Creatinine Clearance (Chem 58.46 [facility] Protein Electrophoresis M-Abhijeet Not observed g/dL Not Observed [facility] Protein Electrophoresis Note See comment . [facility] Comment on above: Protein electrophore sis scan will follow via computer,mail, or insurance account executive delivery.Performed at: [place] [id number] Director: Flaco Pineda PhD, Phone: [phone] Nucleated erythrocytes [Pres ence] in Blood by Automated countOrdered By: Dylan Vazquez on 05-16-2023 Nucleated RBC Auto Ql (Bld) 0.1 /100{WBC} 0-0.5 [facility] Nucleated RBC Auto Ql (Bld) Nucleated erythrocytes [Presence] in Blood by Automated count 0-0.5 [facility] Platelet mean volume Auto (B ld) [Entitic vol]Ordered By: Dylan Vazquez on 05-16-2023 Platelet mean volume (Bld) [Entitic vol] Platelet mean volume [Entitic volume] in Blood by Automated count 6.6-10.1 [facility] Platelet mean volume [Entiti c volume] in Blood by Automated countOrdered By: Dylan Vazquez on 05-16-2023 Platelet mean volume (Bld) [Entitic vol] 8.6 fL Normal 6.6-10.1 [facility] Comment on above: Performed By: #### C BC #### [facility] [address] [place] [address] [place] Platelets Auto (Bld) [#/Vol] Ordered By: Dylan Vazquez on 05-16-2023 Platelets (Bld) [#/Vol] Platelets [#/vol ume] in Blood by Automated count 150-450 [facility] Platelets [#/volume] in Bloo d by Automated countOrdered By: Dylan Culverjesse on 05-16-2023 Platelets (Bld) [#/Vol] 282 10*3/uL Normal 150-450 [facility] Comment on above: Performed By: #### C BC #### [place] [address] [place] Potassium [Moles/volume] in Serum or PlasmaOrdered By: Dylan George on 05-16-2023 Potassium [Moles/Vol] 5.1 mmol/L Normal 3.5-5.1 [facility] Comment on above: Performed By: #### C BC #### [address] Potassium [Moles/Vol] Potassium [Moles/volume] in Serum or Plasma 3.5-5.1 [facility] Protein Electrophoresis, Ser umon 05-16-2023 Itokx-7-Lxybtwlm 0.3 g/dL Normal 0.0-0.4 [facility] Comment on above: Performed By: #### C MP, MARGARET, LIPASE #### [address] Qkuib-2-Flfcmibq 1.1 g/dL High 0.4-1.0 [facility] Comment on above: Performed By: #### C MP, MARGARET, LIPASE #### [address] Beta Globulin 1.0 g/dL Normal 0.7-1.3 [facility] Comment on above: Performed By: #### C MP, MARGARET, LIPASE #### [address] Gamma Globulin 1.1 g/dL Normal 0.4-1.8 [facility] Comment on above: Performed By: #### C MP, MARGARET, LIPASE #### [address] M-Abhijeet Not Observed Normal Not Observed [facility] Comment on above: Performed By: #### C MP, MARGARET, LIPASE #### [facility] [address] [place] [address] [facility] SPE-Note Normal . [facility] Comment on above: Result Comment: Prot ein electrophoresis scan will follow via computer, mail, or insurance account executive delivery. Performed at: - [facility] [id number] Gra[employer] Hauler: Flaco Pineda PhD, Phone: [phone] Performed By: #### C MP, MARGARET, LIPASE #### [facility] [address] [place] [address] [place] Protein [Mass/volume] in Ser um or PlasmaOrdered By: Dylan Vazquez on 05-16-2023 Protein [Mass/Vol] 7.7 g/dL Normal 6.4-8.9 [facility] Comment on above: Performed By: #### C BC #### [facility] [address] [place] [address] [place] Protein [Mass/Vol] 7.3 g/dL Normal 6.0-8.5 [facility] Comment on above: Performed By: #### C MP, MARGARET, LIPASE #### [facility] [address] [place] [address] [place] Protein [Mass/Vol] Protein [Mass/volume ] in Serum or Plasma 6.0-8.5 [facility] RBC Auto (Bld) [#/Vol]Ordere d By: Dylan Vazquez on 05-16-2023 RBC (Bld) [#/Vol] Erythrocytes [#/volu me] in Blood by Automated count 3.90-5.60 [facility] Serum free kappa light chain measurementOrdered By: Dylan Vazquez on 05-16-2023 Immunoglobulin light chains.kappa.free (S) [Mass/Vol] Immunoglobulin light chains.kappa.free [Mass/volume] in Serum High 3.3-19.4 [facility] Serum globulin measurement ( mass/volume)Ordered By: Dylan Vazquez on 05-16-2023 Globulin (S) [Mass/Vol] Serum globulin measurement (mass/volume) 2.2-3.9 [facility] Serum globulin measurement b y calculation (mass/volume)Ordered By: Dylan Vazquez on 05-16-2023 Globulin (S) [Mass/Vol] 3.5 g/dL Normal 2.2-3.9 F [facility] Comment on above: Performed By: #### C BC #### [facility] [address] Performed By: #### C MP, MARGARET, LIPASE #### [facility] [address] Serum immunofixation electro phoresisOrdered By: Dylan Vazquez on 05-16-2023 Serum Immunofixation See comment . [facility] Comment on above: No monoclonality det ected. Serum immunoglobulin free ka ppa light chains/immunoglobulin free lambda light chainsOrdered By: Dylan Vazquez on 05-16-2023 Immunoglobulin light chains.kappa.free/Immun oglobulin light chains.lambda.free (S) [Mass ratio] Immunoglobulin light chains.kappa.free/Immun oglobulin light chains.lambda.free [Mass High 0.26-1.65 [facility] Comment on above: Performed at: - [place] [id number] Director: Flaco Pineda PhD, Phone: [phone] Serum or plasma IgA measurem ent (mass/volume)Ordered By: Dylan Vazquez on 05-16-2023 IgA [Mass/Vol] IgA [Mass/volume] in Serum or Plasma 61-089 [facility] Serum or plasma IgG measurem ent (mass/volume)Ordered By: Dylan Vazquez on 05-16-2023 IgG [Mass/Vol] IgG [Mass/volume] in Serum or Plasma [phone] [facility] Serum or plasma IgM measurem ent (mass/volume)Ordered By: Dylan Vazquez on 05-16-2023 IgM [Mass/Vol] IgM [Mass/volume] in Serum or Plasma 20-213 [facility] Serum or plasma albumin maine urement (mass/volume)Ordered By: Dylan Vazquez on 05-16-2023 Albumin [Mass/Vol] Albumin [Mass/volume ] in Serum or Plasma 2.9-4.4 [facility] Serum or plasma albumin/glob ulin mass ratioOrdered By: Dylan George on 05-16-2023 Albumin/Globulin [Mass ratio] 1.2 {ratio} Normal [facility] Comment on above: Performed By: #### C BC #### [facility] [address] Albumin/Globulin [Mass ratio] 1.1 {ratio} Normal 0.7-1.7 [facility] Comment on above: Performed By: #### C MP, MARGARET, LIPASE #### [facility] [address] Albumin/Globulin [Mass ratio] Serum or plasma albumin/globulin mass ratio 0.7-1.7 [facility] Serum or plasma alpha 1 glob ulin measurement by electrophoresis (mass/volume)Ordered By: Dylan Vazquez on 05-16-2023 Alpha 1 globulin Elph [Mass/Vol] 0.3 g/dL 0.0-0.4 [facility] Alpha 1 globulin Elph [Mass/Vol] Serum or plasma alpha 1 globulin measurement by electrophoresis (mass/volume) 0.0-0.4 [facility] Serum or plasma alpha 2 glob ulin measurement by electrophoresis (mass/volume)Ordered By: Dylan Vazquez on 05-16-2023 Alpha 2 globulin Elph [Mass/Vol] 1.1 g/dL High 0.4-1.0 [facility] Alpha 2 globulin Elph [Mass/Vol] Serum or plasma alpha 2 globulin measurement by electrophoresis (mass/volume) High 0.4-1.0 [facility] Serum or plasma anion gap de terminationOrdered By: Dylan Vazquez on 05-16-2023 Anion gap [Moles/Vol] 11.5 mmol/L Normal 6.0-15.0 [facility] Comment on above: Performed By: #### C BC #### [facility] [address] [place] [address] Anion gap [Moles/Vol] Serum or plasma an ion gap determination 6.0-15.0 [facility] Serum or plasma beta globuli n measurement by electrophoresis (mass/volume)Ordered By: Dylan Vazquez on 05-16-2023 Beta globulin Elph [Mass/Vol] 1.0 g/dL 0.7-1.3 [facility] Beta globulin Elph [Mass/Vol] Serum or plasma beta globulin measurement by electrophoresis (mass/volume) 0.7-1.3 [facility] Serum or plasma cancer antig en 19-9 measurement (units/volume)Ordered By: Dylan Krugermessi on 05-16-2023 Cancer Ag 19-9 Qn 23 [arb'U]/mL 0-35 [facility] Comment on above: [employer] El ectrochemiluminescence Immunoassay(ECLIA)Values obtained with different assay methods or kits cannotbe used interchangeably. Results cannot be interpreted asabsolute evidence of the presence or absence of malignantdisease.Performed at: [employer] [address] [id number] Director: Flaco Pineda PhD, Phone: [phone] Cancer Ag 19-9 Qn Serum or plasma canc er antigen 19-9 measurement (units/volume) 0-35 [facility] Comment on above: [employer] El ectrochemiluminescence Immunoassay(ECLIA)Values obtained with different assay methods or kits cannotbe used interchangeably. Results cannot be interpreted asabsolute evidence of the presence or absence of malignantdisease.Performed at: [employer] [address] [id number] Director: Flaco Pineda PhD, Phone: [phone] Serum or plasma erythropoiet in (EPO) measurement (units/volume)Ordered By: Dylan Culverjesse on 05-16-2023 Erythropoietin (EPO) Qn 7.1 mIU/mL 2.6-18.5 [facility] Comment on above: U-[employer] el DxI 800 Immunoassay SystemValues obtained with different assay methods or kits cannotbe used interchangeably. Results cannot be interpreted asabsolute evidence of the presence or absence of malignantdisease.Performed at: [employer] [id number] [place], [place] [id number] Director: Flaco Pineda PhD, Phone: [phone] Erythropoietin (EPO) Qn Serum or plasma erythropoietin (EPO) measurement (units/volume) 2.6-18.5 [facility] Comment on above: Alen Cangrade UniC el DxI 800 Immunoassay SystemValues obtained with different assay methods or kits cannotbe used interchangeably. Results cannot be interpreted asabsolute evidence of the presence or absence of malignantdisease.Performed at: [facility] [address] [id number] Director: Flaco Pineda PhD, Phone: [phone] Serum or plasma gamma globul in measurement by electrophoresis (mass/volume)Ordered By: Dylan Vazquez on 05-16-2023 Gamma globulin Elph [Mass/Vol] 1.1 g/dL 0.4-1.8 [facility] Gamma globulin Elph [Mass/Vol] Serum or plasma gamma globulin measurement by electrophoresis (mass/volume) 0.4-1.8 [facility] Serum or plasma immunoglobul in free lambda light chains measurement (mass/volume)Ordered By: Dylan Vazquez on 05-16-2023 Immunoglobulin light chains.lambda.free [Mass/Vol] Immunoglobulin light chains.lambda.free [Mass/volume] in Serum or Plasma High 5.7-26.3 [facility] Serum or plasma iron binding capacity measurement (mass/volume)Ordered By: Dylan Vazquez on 05-16-2023 Iron binding capacity [Mass/Vol] Iron binding capacity [Mass/volume] in Serum or Plasma 255-450 [facility] Serum or plasma iron saturat ion measurement (mass fraction)Ordered By: Dylan Vazquez on 05-16-2023 Iron saturation [Mass fraction] Iron saturation [Mass Fraction] in Serum or Plasma 20-50 [facility] Sodium [Moles/volume] in Ser um or PlasmaOrdered By: Dylan Vazquez on 05-16-2023 Sodium [Moles/Vol] 134 mmol/L Low 136-145 [facility] Comment on above: Performed By: #### C BC #### [address] Sodium [Moles/Vol] Sodium [Moles/volume ] in Serum or Plasma Low 136-145 [facility] Transferrin [Mass/volume] in Serum or PlasmaOrdered By: Dylan Vazquez on 05-16-2023 Transferrin [Mass/Vol] 289 mg/dL Normal 203-362 [facility] Comment on above: Performed By: #### C MP, MARGARET, LIPASE #### [facility] [address] [id number] [place] Transferrin [Mass/Vol] Transferrin [Mass/volume] in Serum or Plasma 203-362 [facility] Urea nitrogen [Mass/volume] in Serum or PlasmaOrdered By: Dylan George on 05-16-2023 Urea nitrogen [Mass/Vol] 49 mg/dL High 7-25 [facility] Comment on above: Performed By: #### C BC #### [facility] [address] WBC Auto (Bld) [#/Vol]Ordere d By: Dylan George on 05-16-2023 WBC (Bld) [#/Vol] Leukocytes [#/volume ] in Blood by Automated count 4.1-10.5 [facility] CNOVon 05-14-2023 CNOV Office Visit (CLARIBEL ) ALTAGRACIA CONWAY ([id number]) 1955 M [facility] Date Time Provider Department 05/14/23 9:30 AM ELBA HENRY During your visit today, we recorded the following information about you: Pulse Blood pressure Weight Height 84/minute 138/65 103.4 kg 1.88 m Elba Henry PA-C 05/14/2023 1:46 PM Signed Pain Management Follow Up Visit Date: 05/14/23 DEBAR Gonzalezner is a 67 year old male, who presents with bilateral foot pain, SCS recheck. Intensity of pain: 0 on a scale of 0-10 in the afternoons, patient states everyday is different. Pain usually worse in the afternoons - 10/10. Duration of pain: Years ago, with no precipitating event.. The pain is located Foot-Left (bilateral feet) and does not radiate . Pain Description: Intermittent Throbbing, Sharp, Spasm Timing: changes in severity but always present Aggravating Factors: nothing aggravates it, it just starts Alleviating Factors: Spinal Cord Stimulator, Medication Interference with: walking, sleeping, cooking, household cleaning, and social activities. Procedure since last office visit: Review of Symptoms: GENERAL:No weight loss, malaise or fevers., SEE HPI GASTROINTESTINAL: Negative for abdominal discomfort, blood in stools or black stools or change in bowel habits GENITOURINARY: No history of dysuria, frequency or incontinence MUSCULOSKELETAL: see HPI NEUROLOGIC:Negative for focal numbness or weakness, headaches and dizziness or syncope. PREVIOUS TREATMENTS LASTING SIX WEEKS IN THE LAST SIX MONTHS Active conservative therapy lasting 6 weeks in the last six months (see below) 1. Physical therapy: No 2. Home exercise program after PT: No 3. Occupational therapy: No 4. A physician supervised home exercise program (HEP): No 5. Camp Director: No Passive conservative therapy lasting 6 weeks in the last six months (see below) 1. Medical devises: No 2. Acupuncture: No 3. Tens unit: No 4. Prescription pain medication: No 5. NSAIDS: [place]: Cathy Garcia RN May 14, 2023 9:56 AM The subjective information: including chief complaint, and past medical history, was explored in detail with the patient and edited as needed and is complete. Elba Henry PA-C May 14, 2023 NOHELIA: 03/29/23 - Elba Henry PA-C PLAN: 1) Consult physical therapy 2) X-ray Lumbar spine 3) US of the left lower extremity to evaluate for DVT 4) Conor from [facility] was present for this visit and SCS reprogramming was completed today. 5) RTC 8 weeks or sooner if needed. Consider lumbar MBNB in the future if back pain continues. OARRS: PDMP website checked and validated. All prescriptions have been APPROPRIATELY filled. No suspicious activity was identified. - on May 14, 2023 by Elba Henry PA-C - 05/09/23 Lorazepam 1 mg #30/30 days Kenn Bee MD - 05/03/23 Hydrocodone/Acetaminoph en 5/325 mg #10/ for 2 days Tito Cespedes Physical Examination: BP 138/65 Pulse 84 Ht 6' 2 (1.88m) Wt 227 lb 15.3 oz (103.4kg) SpO2 95% BMI 29.26 kg/(m2). General: well appearing, alert, and in no acute distress HEENT: normocephalic, atraumatic, sclera non-icteric Cardiovascular:Regular rate and rhythm Lungs: Respirations even and non-labored. Extremities: - Right great toe amputation. - Patient reports cannot feel light touch distal to the ankles bilaterally. - No allodynia of the bilateral feet - Palpable dorsalis pedis and posterior tibialis pulses bilaterally. - Vascular color changes over the forefoot. - Edema in the bilateral lower extremities distal to the knee 1+ pitting. Neurological: Mental Status: alert and oriented x 3 Current Anticoagulant Therapy: No DM: Yes Imaging: Mar 29 2023 - US DVT LOWER LT COMPARISON: None RESULT: LEFT LOWER EXTREMITY PROXIMAL DEEP VEINS Distal External Iliac, Common Femoral and proximal Profunda Veins: Compression: Normal Doppler: Normal, spontaneous respirophasic flow. Normal response to augmentation. Femoral vein: Compression: Normal Doppler: Normal, spontaneous flow. Normal response to augmentation. Popliteal vein: Compression: Normal Doppler: Normal, spontaneous flow. Normal response to augmentation. CALF DEEP VEINS: The left calf veins are not well visualized due to soft tissue edema. Gastrocnemius and Soleal veins: Not imaged. SUPERFICIAL VEINS Great saphenous: Patent and compressible at insertion into common femoral vein; not otherwise assessed. Small Saphenous: Patent and compressible in the proximal calf, not otherwise assessed. There is 4.2 x 3.7 x 1.2 cm enlarged left inguinal lymph node. RIGHT LOWER EXTREMITY (FOR COMPARISON) Common Femoral Vein: Compression: Normal Doppler: Normal, spontaneous respirophasic flow. Normal response to augmentation. There is 2.5 x 1.8 x 0.9 cm enlarged right ingui (more content not included)... Normal [facility] Tae 05-10-2023 MATTHEW Telephone (CLARIBEL) ALTAGRACIA CONWAY ([id number]) 1955 M [facility] Date Time Provider Department 05/10/23 ELBA HENRY During your visit today, we recorded the following information about you: JarethCristaKristenarley Pitts LPN 05/10/2023 1:42 PM Signed Spoke with pt regarding SCS eval with [facility](Conor). Pt requesting appt with heidi to discuss options. VM and email sent to [facility] to meet pt at appt on 05/14/2023 @ 740. Pt stated he has been seen several times by [facility] and was texting with Conor yesterday. Allergies As of Date: 05/10/2023 Noted Allergy Reaction POLLEN 01/22/2002 Comments: runny itchy eyes and nose Date Reviewed: 03/29/2023 Reviewed by: Paola Ruff OCCA - Fully Assessed Reason for Visit: Appointment [186] Prescriptions as of 05/10/2023 - insulin lispro protamin/lispro (HUMALOG MIX 50-50 KWIKPEN SUBCUTANEOUS) Inject 34 Units subcutaneously DAILY (6 AM). - insulin degludec (TRESIBA FLEXTOUCH U-100) 100 unit/mL (3 mL) injection pen 34 Applicators by abdominal subcutaneous route once daily. - blood-glucose sensor (DEXCOM G7 SENSOR MISC) 1 Each. - insulin aspart U-100 (NOVOLOG FLEXPEN U-100 INSULIN) 100 unit/mL (3 mL) 60 units in morning, 60 units for lunch, and sliding scale for dinner - amlodipine besylate (AMLODIPINE ORAL) Take 10 mg by mouth once daily. - levomilnacipran (FETZIMA) 120 mg ER capsule Take 160 mg by mouth once daily. - tamsulosin (FLOMAX) 0.4 mg Take 0.4 mg by mouth once daily. - furosemide (LASIX) 20 mg tablet Take 20 mg by mouth once daily. - mirtazapine (REMERON) 45 mg tablet Take 45 mg by mouth daily at bedtime. - pregabalin (LYRICA) 150 mg capsule Take 150 mg by mouth. Weaning off medication - CREON 36,000-114,000- 180,000 unit delayed release capsule Take 2 capsules by mouth three times daily. - budesonide-formoterol (SYMBICORT) 160-4.5 mcg/actuation inhaler Inhale 2 Puffs as instructed twice daily. - albuterol HFA (PROVENTIL HFA, VENTOLIN HFA) 90 mcg/actuation inhaler Inhale 2 Puffs as instructed every 4 hours as needed for Wheezing/Shortness of Breath. - lisinopril(PRINIVIL 20 MG TAB) Take one(1) tablet daily. - atorvastatin calcium(LIPITOR 10 MG TAB) Take one(1) tablet daily. - lorazepam(ATIVAN 1 MG TAB) Take by mouth. 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, T*08/13/2022 Bilateral foot pain [M79.671, M79.672] 08/13/2022 Bilateral hand pain [M79.641, M79.642] 08/13/2022 Recurrent major depression in remission (HCC) [*09/07/2022 History of amputation of right great toe (HCC) *09/07/2022 Hypertension [I10] 10/18/2022 Hyperlipidemia [E78.5] 10/18/2022 Current smoker [F17.200] 10/18/2022 Obesity (BMI 30-39.9) [E66.9] 10/18/2022 Malignant neoplasm of pancreas (HCC) [C25.9] 10/19/2022 Stage 3 chronic kidney disease (HCC) [N18.30] 10/19/2022 Chronic obstructive pulmonary disease (HCC) [J4*10/19/2022 Obesity, Class I, BMI 30-34.9 [E66.9] 03/29/2023 Encounter Status:Closed by KRISTEN TEMPLETON on 05/10/23 Normal [facility] XR chest 2V*on 05-03-2023 XR chest 2V* [facility] [place] [address] XRay Report Signed Patient: Altagracia Conway MR#: [id number] 021 : 1955 Acct:[id number] Age/Sex: 67 / M ADM Date: 05/02/23 Loc: ER Room: Type: [facility] ER Attending Dr: Copies to: Tito Cespedes Jr, MD Ordering Provider: Tito Cespedes Jr, MD Date of Service: 05/02/23 XR/XR chest 2V*: Shortness of Breath/Dyspnea PA AND LATERAL CHEST: CLINICAL HISTORY: Neuropathy, shortness of breath and fever COMPARISON: 05/01/2023 A right-sided Fgxhmk-k-Zdkx catheter is again visualized. Chronic interstitial thickening, and peribronchial thickening are visualized. There is suspected atelectasis on the right There is no other developing consolidation, effusion or pneumothorax. The cardiac, hilar and mediastinal silhouettes are similar. The visualized bony thorax is intact. Endplate spurring is present the spine. There is a dorsal stimulator. XR/XR chest 2V* IMPRESSION: MILD CHRONIC CHANGES. MINOR ATELECTASIS. Impression dictated by: Dee Cuevas M.D.05/03/2023 7:28 AM Dictation Location: [place] [address] Transcribed By: [facility] 05/03/23727 Dictated By: Dee Cuevas MD 05/03/23723 Signed By: 05/03/2328 Normal [facility] Activated partial thrombopla stin time (aPTT) in platelet poor plasma by coagulation aOrdered By: Tito Cespedes on 05-02-2023 aPTT Coag (PPP) [Time] 69.8 s 25.1-36.5 [facility] Comment on above: A hematocrit value g reater than 55% may lead to inaccurate results in coagulation testing. Patients having hematocrit values >55% require a special collection tube for coagulation studies. Please contact the laboratory at [phone] for redraw instructions. Alanine aminotransferase [En zymatic activity/volume] in Serum or PlasmaOrdered By: Tito Cespedes on 05-02-2023 ALT [Catalytic activity/Vol] 65 U/L [facility] 7-52 [facility] Comment on above: Performed By: #### C MP, MARGARET, LIPASE #### [address] Albumin [Mass/volume] in Ser um or Plasma by Bromocresol green (BCG) dye binding methoOrdered By: Tito Cespedes on 05-02-2023 Albumin BCG dye [Mass/Vol] 3.8 g/dL 3.5-5.7 [facility] Alkaline phosphatase [Enzyma tic activity/volume] in Serum or PlasmaOrdered By: Tito Cespedes on 05-02-2023 ALP [Catalytic activity/Vol] 229 U/L High 34-104 [facility] Comment on above: Performed By: #### C MP, MARGARET, LIPASE #### [address] Aspartate aminotransferase [ Enzymatic activity/volume] in Serum or PlasmaOrdered By: Tito Cespedes on 05-02-2023 AST [Catalytic activity/Vol] 80 U/L High 13-39 [facility] Comment on above: Performed By: #### C MP, MARGARET, LIPASE #### [address] Automated basophil %Ordered By: Tito Cespedes on 05-02-2023 Basophils/100 WBC (Bld) 0.2 % Normal . [facility] Comment on above: Performed By: #### C MP, MARGARET, LIPASE #### [address] Automated basophil countOrde red By: Tito Cespedes on 05-02-2023 Basophils (Bld) [#/Vol] 0.0 10*3/uL Normal 0.0-0.2 [facility] Comment on above: Result Comment: PERF ORMED BY: [place] [address] PATHOLOGIST [employer] REPAIRER NORBERTO PITTS M.D. Performed By: #### C MP, MARGARET, LIPASE #### [address] Automated blood monocyte cou ntOrdered By: Tito Cespedes on 05-02-2023 Monocytes (Bld) [#/Vol] 0.5 10*3/uL Normal 0.0-0.8 [facility] Comment on above: Performed By: #### C MP, MARGARET, LIPASE #### [address] Automated eosinophil %Ordere d By: Tito Cespedes on 05-02-2023 Eosinophils/100 WBC (Bld) 1.1 % Normal . [facility] Comment on above: Performed By: #### C MP, MARGARET, LIPASE #### [address] Automated eosinophil countOr dered By: Tito Cespedes on 05-02-2023 Eosinophils (Bld) [#/Vol] 0.1 10*3/uL Normal 0.0-0.45 [facility] Comment on above: Performed By: #### C MP, MARGARET, LIPASE #### [address] Automated monocyte %Ordered By: Tito Cesepdes on 05-02-2023 Monocytes/100 WBC (Bld) 7.3 % Normal . F [facility] Comment on above: Performed By: #### C MP, MARGARET, LIPASE #### [address] Automated neutrophil %Ordere d By: Tito Cespedes on 05-02-2023 Neutrophils/100 WBC (Bld) 84.0 % Normal . [facility] Comment on above: Performed By: #### C MP, MARGARET, LIPASE #### [address] BNP ser/plasOrdered By: Otto Cespedes on 05-02-2023 Natriuretic peptide B (Bld) [Mass/Vol] 56.0 pg/mL Normal 5-100 [facility] Comment on above: Result Comment: PERF ORMED BY: [place] [address] PATHOLOGIST [employer] REPAIRER NORBERTO PITTS M.D. Performed By: #### C MP, MARGARET, LIPASE #### [address] Bilirubin.total [Mass/volume ] in Serum or PlasmaOrdered By: Tito Cespedes on 05-02-2023 Bilirubin [Mass/Vol] 0.4 mg/dL Normal 0.3-1.0 [facility] Comment on above: Performed By: #### C MP, MARGARET, LIPASE #### [address] Calcium [Mass/volume] in Ser um or PlasmaOrdered By: Tito Cespedes on 05-02-2023 Calcium [Mass/Vol] 8.7 mg/dL Normal 8.6-10.3 [facility] Comment on above: Performed By: #### C MP, MARGARET, LIPASE #### [address] Carbon dioxide, total [Moles /volume] in Serum or PlasmaOrdered By: Tito Cespedes on 05-02-2023 CO2 [Moles/Vol] 20.5 mmol/L Low 21.0-31.0 [facility] Comment on above: Performed By: #### C MP, MARGARET, LIPASE #### [place] [address] [place] Chloride [Moles/volume] in S iqra or PlasmaOrdered By: Tito Cespedes on 05-02-2023 Chloride [Moles/Vol] 105 mmol/L Normal 98-107 [facility] Comment on above: Performed By: #### C MP, MARGARET, LIPASE #### [address] Complete Blood Count Auto Di ffon 05-02-2023 Mean Corpuscular HGB Conc 33.2 g/dL Normal 32.5-35.6 [facility] Comment on above: Performed By: #### C MP, MARGARET, LIPASE #### [address] Monocytes/100 WBC (Bld) 27.30 % High 0.00-20.00 [facility] Comment on above: Result Comment: For adults in ED, MDW > 20.0 may be associated with a higher risk of sepsis during the first 12 hrs of hospital admission Performed By: #### C MP, MARGARET, LIPASE #### [address] NRBC% 0.0 /100{WBC} Normal 0-0.5 [facility] Comment on above: Performed By: #### C MP, MARGARET, LIPASE #### [address] Comprehensive Metabolic Pane elaine 05-02-2023 Albumin [Mass/Vol] 3.8 g/dL Normal 3.5-5.7 [facility] Comment on above: Performed By: #### C MP, MARGARET, LIPASE #### [address] Creatinine Clr Calc Pharmacy 65.84 Normal [facility] Comment on above: Result Comment: PERF ORMED BY: [place] [address] PATHOLOGIST [employer]OLIN REPAIRER NORBERTO PITTS M.D. Performed By: #### C MP, MARGARET, LIPASE #### [address] GFR/1.73 sq M.predicted MDRD (S/P/Bld) [Vol rate/Area] 53.704 mL/min/{1.73_m2} Normal [facility] Comment on above: Performed By: #### C MP, MARGARET, LIPASE #### [address] Creatine kinase [Enzymatic a ctivity/volume] in Serum or PlasmaOrdered By: Tito Cespedes on 05-02-2023 CK [Catalytic activity/Vol] 161 U/L Normal 30-223 [facility] Comment on above: Performed By: #### C MP, MARGARET, LIPASE #### [address] Creatinine [Mass/volume] in Serum or PlasmaOrdered By: Tito Cespedes on 05-02-2023 Creatinine [Mass/Vol] 1.43 mg/dL High 0.70-1.30 [facility] Comment on above: Performed By: #### C MP, MARGARET, LIPASE #### [address] ECG 12 lead ECGon 05-02-2023 ECG 12 lead ECG [facility] [place] [address] [place] [address] Electrocardiograph Report Signed Patient: Altagracia Conway MR#: [id number] 021 : 1955 Acct:[id number] Age/Sex: 67 / M ADM Date: 05/02/23 Loc: ER Room: Type: [facility] ER Attending Dr: Ordering Provider: Tito Csepedes Jr, MD Date of Service: 05/02/23 ECG/ECG 12 lead ECG: Shortness of Breath/Dyspnea Copies to: Test Reason : Blood Pressure : 173/079 mmHG Vent. Rate : 126 BPM Atrial Rate : 126 BPM P-R Int : 142 ms QRS Dur : 070 ms QT Int : 282 ms P-R-T Axes : 058 061 042 degrees QTc Int : 408 ms Sinus tachycardia Otherwise normal ECG When compared with ECG of 01-MAY-2023 17:54, No significant change was found Confirmed by TITO CESPEDES MD ([id number]) on 05/04/2023 4:34:40 AM Referred By: Electronically Signed By:TITO CESPEDES MD Transcribed By: MUS Signed By Tito Cespedes Jr, MD 0431 Normal [facility] Erythrocyte distribution wid th [Ratio] by Automated countOrdered By: Tito Cespedes on 05-02-2023 Erythrocyte distribution width (RBC) [Ratio] 14.4 % Normal 12.0-14.8 [facility] Comment on above: Performed By: #### C IGOR MARGARET, LIPASE #### [facility] [address] [place] [address] Erythrocytes [#/volume] in B lood by Automated countOrdered By: Tito Cespedes on 05-02-2023 RBC (Bld) [#/Vol] 3.58 10*6/uL Low 3.90-5.60 [facility] Comment on above: Performed By: #### C MP, MARGARET, LIPASE #### [facility] [address] [place] [address] Glucose [Mass/volume] in Ser um or PlasmaOrdered By: Tito Cespedes on 05-02-2023 Glucose [Mass/Vol] 175 mg/dL High 70-100 [facility] Comment on above: ADA recommended refe rence rangeRandom Glucose Reference Range is dependent on time and content of last meal. Glucose of more than 200 mg/dL in a nonstressed, ambulatory subject supports the diagnosis of Diabetes Mellitus. Result Comment: [place] om Glucose Reference Range is dependent on time and content of last meal. Glucose of more than 200 mg/dL in a nonstressed, ambulatory subject supports the diagnosis of Diabetes Mellitus. ADA recommended reference range Performed By: #### C MP MARGARET, LIPASE #### [address] Hematocrit [Volume Fraction] of Blood by Automated countOrdered By: Tito Cespedes on 05-02-2023 Hematocrit (Bld) [Volume fraction] 30.2 % Low 38.8-50.0 [facility] Comment on above: Performed By: #### C IGOR MARGARET, LIPASE #### [address] Hemoglobin [Mass/volume] in BloodOrdered By: Tito Cespedes on 05-02-2023 Hemoglobin (Bld) [Mass/Vol] 10.0 g/dL Low 13.0-17.0 [facility] Comment on above: Performed By: #### C MARGARET COSTA, LIPASE #### [address] INR in Platelet poor plasma by Coagulation assayOrdered By: Tito Cespedes on 05-02-2023 INR Coag (PPP) [Relative time] 1.1 {INR} Normal [facility] Comment on above: INR Therapeutic Rang e A) Pre- and Peroperative OAT started two weeks before surgery. NOT HIP SURGERY: 1.5 - 2.5 HIP SURGERY: 2 - 3B) Primary and secondary prevention of venous THROMBOSIS: 2 - 3C) Active venous thrombosis, pulmonary embolismand prevention of recurrent venous thrombosis: 2 - 3D) Prevention of arterial thromboembolismincluding patients with mechanical heart valves: 3 - 4.5 Result Comment: INR Therapeutic Range A) Pre- and Peroperative OAT started two weeks before surgery. NOT HIP SURGERY: 1.5 - 2.5 HIP SURGERY: 2 - 3 B) Primary and secondary prevention of venous THROMBOSIS: 2 - 3 C) Active venous thrombosis, pulmonary embolism and prevention of recurrent venous thrombosis: 2 - 3 D) Prevention of arterial thromboembolism including patients with mechanical heart valves: 3 - 4.5 Performed By: #### C MP, MARGARET, LIPASE #### [address] Leukocytes [#/volume] correc lamont for nucleated erythrocytes in Blood by Automated counOrdered By: Tito Cespedes on 05-02-2023 WBC corrected for nucl RBC Auto (Bld) [#/Vol] 7.1 10*3/uL 4.1-10.5 [facility] Leukocytes [#/volume] in Blo od by Automated countOrdered By: Tito Cespedes on 05-02-2023 WBC (Bld) [#/Vol] 7.1 10*3/uL Normal 4.1-10.5 [facility] Comment on above: Performed By: #### C MP, MARGARET, LIPASE #### [address] Lymphocytes [#/volume] in Bl ood by Automated countOrdered By: Tito Cespedes on 05-02-2023 Lymphocytes (Bld) [#/Vol] 0.5 10*3/uL Low 1.00-4.8 [facility] Comment on above: Performed By: #### C MP, MARGARET, LIPASE #### [address] Lymphocytes/100 leukocytes i n Blood by Automated countOrdered By: Tito Cespedes on 05-02-2023 Lymphocytes/100 WBC (Bld) 7.4 % Normal . [facility] Comment on above: Performed By: #### C MP, MARGARET, LIPASE #### [place] [address] [place] MCH [Entitic mass] by Automa lamont countOrdered By: Tito Cespedes on 05-02-2023 MCH (RBC) [Entitic mass] 28.0 pg Normal 27.5-35.2 [facility] Comment on above: Performed By: #### C MP, MARGARET, LIPASE #### [address] MCHC Auto (RBC) [Mass/Vol]Or dered By: Tito Cespedes on 05-02-2023 MCHC (RBC) [Mass/Vol] 33.2 g/dL 32.5-35.6 [facility] MCV [Entitic volume] by Auto mated countOrdered By: Tito Cespedes on 05-02-2023 MCV (RBC) [Entitic vol] 84.4 fL Normal 83.5-101 F [facility] Comment on above: Performed By: #### C MARGARET COSTA LIPASE #### [facility] [address] [place] [address] [place] Monocyte distribution width [Entitic volume] in Blood by AutomatedOrdered By: Tito Cespedes on 05-02-2023 Monocyte distribution width Auto (Bld) [Entitic vol] 27.30 % 0.00-20.00 [facility] Comment on above: For adults in ED, MD W > 20.0 may be associated with a higher risk of sepsis during the first 12 hrs of hospital admission Neutrophils [#/volume] in Bl ood by Automated countOrdered By: Tito Cespedes on 05-02-2023 Neutrophils (Bld) [#/Vol] 6.0 10*3/uL Normal 1.8-7.7 [facility] Comment on above: Performed By: #### C MARGARET COSTA, LIPASE #### [facility] [address] No Panel InformationOrdered By: Tito Cespedes on 05-02-2023 Estimated GFR (CKD-EPI) 53.704 mL/Min [facility] Creatinine Clearance (Chem 65.84 [facility] Nucleated erythrocytes [Pres ence] in Blood by Automated countOrdered By: Tito Cespedes on 05-02-2023 Nucleated RBC Auto Ql (Bld) 0.0 /100{WBC} 0-0.5 [facility] Partial Thromboplastin Timeo n 05-02-2023 aPTT Coag (Bld) [Time] 69.8 s High 25.1-36.5 [facility] Comment on above: Result Comment: A he matocrit value greater than 55% may lead to inaccurate results in coagulation testing. Patients having hematocrit values >55% require a special collection tube for coagulation studies. Please contact the laboratory at [phone] for redraw instructions. PERFORMED BY: [place] [address] PATHOLOGIST VIOLIN REPAIRER NORBERTO PITTS M.D. Performed By: #### C MP, MARGARET, LIPASE #### [address] Platelet mean volume [Entiti c volume] in Blood by Automated countOrdered By: Tito Cespedes on 05-02-2023 Platelet mean volume (Bld) [Entitic vol] 9.5 fL Normal 6.6-10.1 [facility] Comment on above: Performed By: #### C MP, MARGARET, LIPASE #### [address] Platelets [#/volume] in Bloo d by Automated countOrdered By: Tito Cespedes on 05-02-2023 Platelets (Bld) [#/Vol] 125 10*3/uL Signific ant change down 150-450 [facility] Comment on above: Delta: 163 on Performed By: #### C MP, MARGARET, LIPASE #### [address] Potassium [Moles/volume] in Serum or PlasmaOrdered By: Tito Cespedes on 05-02-2023 Potassium [Moles/Vol] 4.4 mmol/L Normal 3.5-5.1 [facility] Comment on above: Performed By: #### C MP, MARGARET, LIPASE #### [address] Protein [Mass/volume] in Ser um or PlasmaOrdered By: Tito Cespedes on 05-02-2023 Protein [Mass/Vol] 6.9 g/dL Normal 6.4-8.9 [facility] Comment on above: Performed By: #### C MP, MARGARET, LIPASE #### [address] Prothrombin time (PT)Ordered By: Tito Cespedes on 05-02-2023 PT Coag (PPP) [Time] 13.0 s High 9.0-12.9 [facility] Comment on above: A hematocrit value g reater than 55% may lead to inaccurate results in coagulation testing. Patients having hematocrit values >55% require a special collection tube for coagulation studies. Please contact the laboratory at [phone] for redraw instructions. Result Comment: A he matocrit value greater than 55% may lead to inaccurate results in coagulation testing. Patients having hematocrit values >55% require a special collection tube for coagulation studies. Please contact the laboratory at [phone] for redraw instructions. Performed By: #### C MP, MARGARET, LIPASE #### [address] Serum globulin measurement b y calculation (mass/volume)Ordered By: Tito Cespedes on 05-02-2023 Globulin (S) [Mass/Vol] 3.1 g/dL Normal F [facility] Comment on above: Performed By: #### C MP, MARGARET, LIPASE #### [address] Serum or plasma albumin/glob ulin mass ratioOrdered By: Tito Cespedes on 05-02-2023 Albumin/Globulin [Mass ratio] 1.2 {ratio} Normal [facility] Comment on above: Performed By: #### C MP, MARGARET, LIPASE #### [address] Serum or plasma anion gap de terminationOrdered By: Tito Cespedes on 05-02-2023 Anion gap [Moles/Vol] 10.9 mmol/L Normal 6.0-15.0 [facility] Comment on above: Performed By: #### C MP, MARGARET, LIPASE #### [address] Sodium [Moles/volume] in Ser um or PlasmaOrdered By: Tito Cespedes on 05-02-2023 Sodium [Moles/Vol] 132 mmol/L Low 136-145 [facility] Comment on above: Performed By: #### C MP, MARGARET, LIPASE #### [address] Troponin I High Sensitivityo n 05-02-2023 Troponin I High Sensitivity 17.8 pg/mL Normal 0.0-20.0 [facility] Comment on above: Result Comment: PERF ORMED BY: [place] [address] PATHOLOGIST VIOLIN REPAIRER NORBERTO PITTS M.D. Performed By: #### C MP, MARGARET, LIPASE #### [address] Troponin I.cardiac [Mass/vol ume] in Serum or Plasma by Detection limit <= 0.01 ng/Ordered By: Tito Cespedes on 05-02-2023 Troponin I.cardiac DL <= 0.01 ng/mL [Mass/Vol] 17.8 pg/mL 0.0-20.0 [facility] Urea nitrogen [Mass/volume] in Serum or PlasmaOrdered By: Tito Cespedes on 05-02-2023 Urea nitrogen [Mass/Vol] 41 mg/dL High 7-25 [facility] Comment on above: Performed By: #### C MP, MARGARET, LIPASE #### [place] [address] [place] Alanine aminotransferase [En zymatic activity/volume] in Serum or PlasmaOrdered By: Fernando Rizo on 05-01-2023 ALT [Catalytic activity/Vol] 38 U/L Normal 752 [facility] Comment on above: Performed By: #### B UN, CREAT #### [place] [address] [place] Albumin [Mass/volume] in Ser um or Plasma by Bromocresol green (BCG) dye binding methoOrdered By: Fernando Rizo on 05-01-2023 Albumin BCG dye [Mass/Vol] 4.3 g/dL 3.5-5.7 [facility] Alkaline phosphatase [Enzyma tic activity/volume] in Serum or PlasmaOrdered By: Fernando Rizo on 05-01-2023 ALP [Catalytic activity/Vol] 207 U/L High 34-104 [facility] Comment on above: Performed By: #### B UN, CREAT #### [place] [address] [place] Aspartate aminotransferase [ Enzymatic activity/volume] in Serum or PlasmaOrdered By: Fernando Rizo on 05-01-2023 AST [Catalytic activity/Vol] 61 U/L High 13-39 [facility] Comment on above: Performed By: #### B UN, CREAT #### [address] Automated basophil %Ordered By: Fernando Rizo on 05-01-2023 Basophils/100 WBC (Bld) 0.6 % Normal . F [facility] Comment on above: Performed By: #### B UN, CREAT #### [address] Automated basophil countOrde red By: Fernando Rizo on 05-01-2023 Basophils (Bld) [#/Vol] 0.1 10*3/uL Normal 0.0-0.2 [facility] Comment on above: Result Comment: PERF ORMED BY: [place] [address] PATHOLOGIST VIOLIN REPAIRER NORBERTO PITTS M.D. Performed By: #### B UN, CREAT #### [address] Automated blood monocyte cou ntOrdered By: Fernando Rizo on 05-01-2023 Monocytes (Bld) [#/Vol] 0.3 10*3/uL Normal 0.0-0.8 [facility] Comment on above: Performed By: #### B UN, CREAT #### [address] Automated eosinophil %Ordere d By: Fernando Rizo on 05-01-2023 Eosinophils/100 WBC (Bld) 1.3 % Normal . [facility] Comment on above: Performed By: #### B UN, CREAT #### [address] Automated eosinophil countOr dered By: Fernando Rizo on 05-01-2023 Eosinophils (Bld) [#/Vol] 0.1 10*3/uL Normal 0.0-0.45 [facility] Comment on above: Performed By: #### B UN, CREAT #### [facility] [address] [place] [address] Automated erythrocytes count in urine sediment (number/area)Ordered By: Fernando Rizo on 05-01-2023 RBC Auto (Urine sed) [#/Area] 1-2 [HPF] 0-4 [facility] Automated leukocytes count i n urine sediment (number/area)Ordered By: Fernando Rizo on 05-01-2023 WBC Auto (Urine sed) [#/Area] 5-9 [HPF] 0-4 [facility] Automated monocyte %Ordered By: Fernando Rizo on 05-01-2023 Monocytes/100 WBC (Bld) 3.1 % Normal . F [facility] Comment on above: Performed By: #### B UN, CREAT #### [address] Automated neutrophil %Ordere d By: Fernando Rizo on 05-01-2023 Neutrophils/100 WBC (Bld) 91.9 % Normal . [facility] Comment on above: Performed By: #### B UN, CREAT #### [address] Automated urine color determ inationOrdered By: Fernando Rizo on 05-01-2023 Color (U) Yellow Normal Yellow [facility] Comment on above: Order Comment: Name Collection Type:: Clean-Voided Midstream Performed By: #### B UN, CREAT #### [address] BNP ser/plasOrdered By: Lauren Rizo on 05-01-2023 Natriuretic peptide B (Bld) [Mass/Vol] 16.0 pg/mL Normal 5-100 [facility] Comment on above: Result Comment: PERF ORMED BY: [place] [address] PATHOLOGIST VIOLIN REPAIRER NORBERTO PITTS M.D. Performed By: #### B UN, CREAT #### [address] Bilirubin Test strip Ql (U)O rdered By: Fernando Rizo on 05-01-2023 Bilirubin Ql (U) Negative Negative [facility] Bilirubin.total [Mass/volume ] in Serum or PlasmaOrdered By: Fernando Rizo on 05-01-2023 Bilirubin [Mass/Vol] 0.4 mg/dL Normal 0.3-1.0 [facility] Comment on above: Performed By: #### B UN, CREAT #### [facility] [address] COVID CepheidOrdered By: Memo Rizo on 05-01-2023 SARS-CoV-2 (COVID-19) Ab IA Ql Negative Negative [facility] Comment on above: This is a duplicate Cepheid Xpert Xpress CoV-2/Flu/RSV Plus RNA by RT-PCR result to be used for statistical tracking purpose only. SARS-CoV-2 (COVID-19) RNA ANN+probe Ql (Unsp spec) [facility] SARS-CoV-2 (COVID-19) RNA ANN+probe Ql (Unsp spec) [facility] COVID-19 / Flu A/B / RSV PCR on 05-01-2023 SARS-CoV-2 (COVID-19) RNA ANN+probe Ql (Unsp spec) COVID-19 Cepheid Result Negative for SARS-CoV-2 RNA by RT-PCR Flu A Cepheid Result Negative for Flu A RNA by RT-PCR Flu B Cepheid Result Negative for Flu B RNA by RT-PCR RSV Cepheid Result Negative for RSV RNA by RT-PCR COVID19 Blank Space -------- Reference: Negative COVID19 Blank Space -------- Cepheid Disclaimer The Cepheid Xpert Xpress CoV-2/Flu/RSV Plus has Cepheid Disclaimer not been FDA cleared or approved; this test has Cepheid Disclaimer been authorized by FDA under an EUA for use by Cepheid Disclaimer authorized laboratories; this test has been Cepheid Disclaimer authorized only for the simultaneous qualitative Cepheid Disclaimer detection and differentiation of nucleic acids from Cepheid Disclaimer SARS-CoV-2, influenza A, influenza B, and Cepheid Disclaimer respiratory syncytial virus (RSV), and not for any Cepheid Disclaimer other viruses or pathogens; and this test is only Cepheid Disclaimer authorized for the duration of the declaration that Cepheid Disclaimer circumstances exist justifying the authorization of Cepheid Disclaimer emergency use of in vitro diagnostic tests for Cepheid Disclaimer detection and/or diagnosis of COVID-19 under Cepheid Disclaimer Section 564(b)(1) of the Act, 21 U.S.C. 360bbb- Cepheid Disclaimer 3(b)(1), unless the authorization is terminated or Cepheid Disclaimer revoked sooner. PERFORMED BY: [place] [address] PATHOLOGIST VIOLIN REPAIRER NORBERTO PITTS M.D. Normal [facility] Comment on above: Performed By: #### B NYASIA, CREAT #### [place] [address] [place] Calcium [Mass/volume] in Ser um or PlasmaOrdered By: Fernando Rizo on 05-01-2023 Calcium [Mass/Vol] 9.2 mg/dL Normal 8.6-10.3 [facility] Comment on above: Performed By: #### B NYASIA, CREAT #### [address] Carbon dioxide, total [Moles /volume] in Serum or PlasmaOrdered By: Fernando Rizo on 05-01-2023 CO2 [Moles/Vol] 21.0 mmol/L Normal 21.0-31.0 [facility] Comment on above: Performed By: #### B NYASIA, CREAT #### [address] Cepheid COVID PCR Negativeon 05-01-2023 SARS-CoV-2 (COVID-19) RNA ANN+probe Ql (Unsp spec) Negative Normal Negative [facility] Comment on above: Result Comment: This is a duplicate CepCAPPTUREid Xpert Xpress CoV-2/Flu/RSV Plus RNA by RT-PCR result to be used for statistical tracking purpose only. PERFORMED BY: [place] [address] PATHOLOGIST VIOLIN REPAIRER NORBERTO PITTS M.D. Performed By: #### B UN, CREAT #### [address] Chloride [Moles/volume] in S iqra or PlasmaOrdered By: Fernando Rizo on 05-01-2023 Chloride [Moles/Vol] 104 mmol/L Normal 98-107 [facility] Comment on above: Performed By: #### B UN, CREAT #### [address] Complete Blood Count Auto Di ffon 05-01-2023 Mean Corpuscular HGB Conc 32.7 g/dL Normal 32.5-35.6 [facility] Comment on above: Performed By: #### B UN, CREAT #### [address] Monocytes/100 WBC (Bld) 21.63 % High 0.00-20.00 [facility] Comment on above: Result Comment: For adults in ED, MDW > 20.0 may be associated with a higher risk of sepsis during the first 12 hrs of hospital admission Performed By: #### B UN, CREAT #### [address] NRBC% 0.0 /100{WBC} Normal 0-0.5 [facility] Comment on above: Performed By: #### B UN, CREAT #### [address] Comprehensive Metabolic Pane elaine 05-01-2023 Albumin [Mass/Vol] 4.3 g/dL Normal 3.5-5.7 [facility] Comment on above: Performed By: #### B UN, CREAT #### [place] [address] [place] Creatinine Clr Calc Pharmacy 62.46 Normal [facility] Comment on above: Result Comment: PERF ORMED BY: [place] [address] PATHOLOGIST VIOLIN REPAIRER NORBERTO PITTS M.D. Performed By: #### B UN, CREAT #### [place] [address] [place] GFR/1.73 sq M.predicted MDRD (S/P/Bld) [Vol rate/Area] 49.912 mL/min/{1.73_m2} Normal [facility] Comment on above: Performed By: #### B UN, CREAT #### [address] Creatinine [Mass/volume] in Serum or PlasmaOrdered By: Fernando Rizo on 05-01-2023 Creatinine [Mass/Vol] 1.52 mg/dL High 0.70-1.30 [facility] Comment on above: Performed By: #### B UN, CREAT #### [place] [address] [place] Dipstick and Microscopicon 0 05-01-2023 Appearance (U) Clear Normal Clear [facility] Comment on above: Order Comment: Name Collection Type:: Clean-Voided Midstream Performed By: #### B UN, CREAT #### [place] [address] [place] Bacteria,Urine None Seen Normal None Seen [facility] Comment on above: Order Comment: Name Collection Type:: Clean-Voided Midstream Performed By: #### B UN, CREAT #### [place] [address] [place] Bilirubin,Urine Negative Normal Negative [facility] Comment on above: Order Comment: Name Collection Type:: Clean-Voided Midstream Performed By: #### B UN, CREAT #### [place] [address] [place] Glucose Ql (U) Normal Normal Normal [facility] Comment on above: Order Comment: Name Collection Type:: Clean-Voided Midstream Performed By: #### B UN, CREAT #### [place] [address] [place] Hyaline Casts,Urine 0-8 Normal 0-8 [facility] Comment on above: Order Comment: Name Collection Type:: Clean-Voided Midstream Result Comment: PERF ORMED BY: [place] [address] PATHOLOGIST VIOLIN REPAIRER NORBERTO PITTS M.D. Performed By: #### B UN, CREAT #### [place] [address] [place] Ketones Ql (U) Negative Normal Negative [facility] Comment on above: Order Comment: Name Collection Type:: Clean-Voided Midstream Performed By: #### B UN, CREAT #### [place] [address] [place] Leukocyte esterase Test strip Ql (U) 2+ High Negative [facility] Comment on above: Order Comment: Name Collection Type:: Clean-Voided Midstream Performed By: #### B UN, CREAT #### [place] [address] [place] Nitrite,Urine Negative Normal Negative [facility] Comment on above: Order Comment: Name Collection Type:: Clean-Voided Midstream Performed By: #### B UN, CREAT #### [place] [address] [place] Occult Blood,Urine Negative Normal Negative [facility] Comment on above: Order Comment: Name Collection Type:: Clean-Voided Midstream Result Comment: PERF ORMED BY: [place] [address] PATHOLOGIST VIOLIN REPAIRER NORBERTO PITTS M.D. Performed By: #### B UN, CREAT #### [place] [address] [place] Protein,Urine Trace High Negative [facility] Comment on above: Order Comment: Name Collection Type:: Clean-Voided Midstream Performed By: #### B UN, CREAT #### [facility] [address] [place] [address] RBC,Urine 1-2 Normal 0-4 [facility] Comment on above: Order Comment: Name Collection Type:: Clean-Voided Midstream Performed By: #### B UN, CREAT #### [facility] [address] [place] [address] Specificy Farrar,Urine 1.016 Normal 1.001-1.030 [facility] Comment on above: Order Comment: Name Collection Type:: Clean-Voided Midstream Performed By: #### B UN, CREAT #### [address] Squamous Epithelial Cell,Urine None Seen Normal 0-2 [facility] Comment on above: Order Comment: Name Collection Type:: Clean-Voided Midstream Performed By: #### B UN, CREAT #### [address] Urobilinogen,Urine Normal Normal Normal [facility] Comment on above: Order Comment: Name Collection Type:: Clean-Voided Midstream Performed By: #### B UN, CREAT #### [facility] [address] [place] [address] [place] WBC,Urine 5-9 High 0-4 [facility] Comment on above: Order Comment: Name Collection Type:: Clean-Voided Midstream Performed By: #### B UN, CREAT #### [address] ECG 12 lead ECGon 05-01-2023 ECG 12 lead ECG [place] [address] Electrocardiograph Report Signed Patient: Altagracia Conway MR#: [id number] : 1955 Acct:[id number] Age/Sex: 67 / M ADM Date: 05/01/23 Loc: ER Room: Type: [facility] ER Attending Dr: Ordering Provider: Fernando Rizo PA-C Date of Service: 05/01/23 ECG/ECG 12 lead ECG: Shortness of Breath/Dyspnea Copies to: Test Reason : Blood Pressure : 185/084 mmHG Vent. Rate : 135 BPM Atrial Rate : 135 BPM P-R Int : 164 ms QRS Dur : 070 ms QT Int : 258 ms P-R-T Axes : 067 080 072 degrees QTc Int : 387 ms Sinus tachycardia Otherwise normal ECG When compared with ECG of 13-APR-2023 09:28, Vent. rate has increased BY 57 BPM Confirmed by MARK ARAMBULA MD ([id number]) on 05/02/2023 1:57:43 AM Referred By: Electronically Signed By:MARK ARAMBULA MD Transcribed By: MUS Signed By Mark Arambula MD 05/02/23 0157 Normal [facility] Erythrocyte distribution wid th [Ratio] by Automated countOrdered By: Fernando Rizo on 05-01-2023 Erythrocyte distribution width (RBC) [Ratio] 14.5 % Normal 12.0-14.8 [facility] Comment on above: Performed By: #### B UN, CREAT #### [facility] [address] [place] [address] [place] Erythrocytes [#/volume] in B lood by Automated countOrdered By: Fernando Rizo on 05-01-2023 RBC (Bld) [#/Vol] 3.94 10*6/uL Normal 3.90-5.60 [facility] Comment on above: Performed By: #### B NYASIA, CREAT #### [facility] [address] [place] [address] Glucose [Mass/volume] in Ser um or PlasmaOrdered By: Fernando Rizo on 05-01-2023 Glucose [Mass/Vol] 166 mg/dL High 70-100 [facility] Comment on above: ADA recommended refe rence rangeRandom Glucose Reference Range is dependent on time and content of last meal. Glucose of more than 200 mg/dL in a nonstressed, ambulatory subject supports the diagnosis of Diabetes Mellitus. Result Comment: [place] om Glucose Reference Range is dependent on time and content of last meal. Glucose of more than 200 mg/dL in a nonstressed, ambulatory subject supports the diagnosis of Diabetes Mellitus. ADA recommended reference range Performed By: #### B UN, CREAT #### [address] Hematocrit [Volume Fraction] of Blood by Automated countOrdered By: Fernando Rizo on 05-01-2023 Hematocrit (Bld) [Volume fraction] 33.1 % Low 38.8-50.0 [facility] Comment on above: Performed By: #### B NYASIA, CREAT #### [facility] [address] [place] [address] Hemoglobin [Mass/volume] in BloodOrdered By: Fernando Rizo on 05-01-2023 Hemoglobin (Bld) [Mass/Vol] 10.8 g/dL Low 13.0-17.0 [facility] Comment on above: Performed By: #### B NYASIA, CREAT #### [address] Ketones Auto test strip (U) [Mass/Vol]Ordered By: Fernando Rizo on 05-01-2023 Ketones (U) [Mass/Vol] Negative Negative [facility] - UrinalysisOrder ed By: Fernando Rizo on 05-01-2023 Hyaline casts LM Ql (Urine sed) 0-8 [LPF] 0-8 [facility] Leukocytes [#/volume] correc lamont for nucleated erythrocytes in Blood by Automated counOrdered By: Fernando Rizo on 05-01-2023 WBC corrected for nucl RBC Auto (Bld) [#/Vol] 11.2 10*3/uL 4.1-10.5 [facility] Leukocytes [#/volume] in Blo od by Automated countOrdered By: Fernando Rizo on 05-01-2023 WBC (Bld) [#/Vol] 11.2 10*3/uL High 4.1-10.5 [facility] Comment on above: Performed By: #### B NYASIA, CREAT #### [facility] [address] [place] [address] [place] Lymphocytes [#/volume] in Bl ood by Automated countOrdered By: Fernando Rizo on 05-01-2023 Lymphocytes (Bld) [#/Vol] 0.3 10*3/uL Low 1.00-4.8 [facility] Comment on above: Performed By: #### B UN, CREAT #### [place] [address] [place] Lymphocytes/100 leukocytes i n Blood by Automated countOrdered By: Fernando Rizo on 05-01-2023 Lymphocytes/100 WBC (Bld) 3.1 % Normal . [facility] Comment on above: Performed By: #### B UN, CREAT #### [facility] [address] [place] [address] [place] MCH [Entitic mass] by Automa lamont countOrdered By: Fernando Rizo on 05-01-2023 MCH (RBC) [Entitic mass] 27.5 pg Normal 27.5-35.2 [facility] Comment on above: Performed By: #### B UN, CREAT #### [address] MCHC Auto (RBC) [Mass/Vol]Or dered By: Fernando Rizo on 05-01-2023 MCHC (RBC) [Mass/Vol] 32.7 g/dL 32.5-35.6 [facility] MCV [Entitic volume] by Auto mated countOrdered By: Fernando Rizo on 05-01-2023 MCV (RBC) [Entitic vol] 84.0 fL Normal 83.5-101 F [facility] Comment on above: Performed By: #### B UN, CREAT #### [address] Monocyte distribution width [Entitic volume] in Blood by AutomatedOrdered By: Fernando Rizo on 05-01-2023 Monocyte distribution width Auto (Bld) [Entitic vol] 21.63 % 0.00-20.00 [facility] Comment on above: For adults in ED, MD W > 20.0 may be associated with a higher risk of sepsis during the first 12 hrs of hospital admission Neutrophils [#/volume] in Bl ood by Automated countOrdered By: Fernando Rizo on 05-01-2023 Neutrophils (Bld) [#/Vol] 10.3 10*3/uL High 1.8-7.7 [facility] Comment on above: Performed By: #### B UN, CREAT #### [address] Nitrite Test strip Ql (U)Ord ered By: Fernando Rizo on 05-01-2023 Nitrite Ql (U) Negative Negative [facility] No Panel InformationOrdered By: Fernando Rizo on 05-01-2023 Estimated GFR (CKD-EPI) 49.912 mL/Min [facility] Creatinine Clearance (Chem 62.46 [facility] Nucleated erythrocytes [Pres ence] in Blood by Automated countOrdered By: Fernando Rizo on 05-01-2023 Nucleated RBC Auto Ql (Bld) 0.0 /100{WBC} 0-0.5 [facility] Platelet mean volume [Entiti c volume] in Blood by Automated countOrdered By: Fernando Rizo on 05-01-2023 Platelet mean volume (Bld) [Entitic vol] 9.1 fL Normal 6.6-10.1 [facility] Comment on above: Performed By: #### B NYASIA, CREAT #### [address] Platelets [#/volume] in Bloo d by Automated countOrdered By: Fernando Rizo on 05-01-2023 Platelets (Bld) [#/Vol] 163 10*3/uL Normal 150-450 [facility] Comment on above: Performed By: #### B NYASIA, CREAT #### [address] Potassium [Moles/volume] in Serum or PlasmaOrdered By: Fernando Rizo on 05-01-2023 Potassium [Moles/Vol] 5.6 mmol/L High 3.5-5.1 [facility] Comment on above: Performed By: #### B NYASIA, CREAT #### [address] Protein Auto test strip (U) [Mass/Vol]Ordered By: Fernando Rizo on 05-01-2023 Protein (U) [Mass/Vol] Trace mg/dL Negative F [facility] Protein [Mass/volume] in Ser um or PlasmaOrdered By: Fernando Rizo on 05-01-2023 Protein [Mass/Vol] 7.4 g/dL Normal 6.4-8.9 [facility] Comment on above: Performed By: #### B UN, CREAT #### [facility] [address] [place] [address] Serum globulin measurement b y calculation (mass/volume)Ordered By: Fernando Rizo on 05-01-2023 Globulin (S) [Mass/Vol] 3.1 g/dL Normal F [facility] Comment on above: Performed By: #### B UN, CREAT #### [address] Serum or plasma albumin/glob ulin mass ratioOrdered By: Fernando Rizo on 05-01-2023 Albumin/Globulin [Mass ratio] 1.4 {ratio} Normal [facility] Comment on above: Performed By: #### B UN, CREAT #### [facility] [address] [place] [address] Serum or plasma anion gap de terminationOrdered By: Fernando Rizo on 05-01-2023 Anion gap [Moles/Vol] 13.6 mmol/L Normal 6.0-15.0 [facility] Comment on above: Performed By: #### B UN, CREAT #### [address] Sodium [Moles/volume] in Ser um or PlasmaOrdered By: Fernando Rizo on 05-01-2023 Sodium [Moles/Vol] 133 mmol/L Low 136-145 [facility] Comment on above: Performed By: #### B UN, CREAT #### [address] Specific gravity Auto test s trip (U) [Rel density]Ordered By: Fernando Rizo on 05-01-2023 Specific gravity (U) [Rel density] 1.016 1.001-1.030 [facility] Squamous epithelial cells de tection in urine sediment by light microscopyOrdered By: Fernando Rizo on 05-01-2023 Epithelial cells.squamous LM Ql (Urine sed) None seen [HPF] 0-2 [facility] Troponin I High Sensitivityo n 02-21-2024 Troponin I High Sensitivity 12.6 pg/mL Normal 0.0-20.0 [facility] Comment on above: Result Comment: PERF ORMED BY: [place] [address] PATHOLOGIST [employer]OLIN REPAIRER NORBERTO PITTS M.D. Performed By: #### B UN, CREAT #### [facility] [address] [place] [address] Troponin I.cardiac [Mass/vol ume] in Serum or Plasma by Detection limit <= 0.01 ng/Ordered By: Fernando Rizo on 05-01-2023 Troponin I.cardiac DL <= 0.01 ng/mL [Mass/Vol] 12.6 pg/mL 0.0-20.0 [facility] Urea nitrogen [Mass/volume] in Serum or PlasmaOrdered By: Fernando Rizo on 05-01-2023 Urea nitrogen [Mass/Vol] 46 mg/dL High 7-25 [facility] Comment on above: Performed By: #### B UN, CREAT #### [facility] [address] [place] [address] Urine Cultureon 05-01-2023 Bacteria identified Cx Nom (U) No Growth 2 Days PERFORMED BY: [place] [address] PATHOLOGIST VIOLIN REPAIRER NORBERTO PITTS M.D. Normal [facility] Comment on above: Performed By: #### B UN, CREAT #### [address] Urine bacteria detection by automated methodOrdered By: Fernando Rizo on 05-01-2023 Bacteria Auto Ql (U) None seen None Seen [facility] Urine clarity by refractomet ry automatedOrdered By: Fernando Rizo on 05-01-2023 Clarity Refractometry automated (U) Clear Clear [facility] Urine culture routineOrdered By: Fernando Rizo on 05-01-2023 Bacteria identified Cx Nom (U) No Growth 2 Days [facility] Urine glucose measurement by automated test strip (mass/volume)Ordered By: Fernando Rizo on 05-01-2023 Glucose Auto test strip (U) [Mass/Vol] Normal mg/dL Normal [facility] Urine hemoglobin detection b y automated test stripOrdered By: Fernando Rizo on 05-01-2023 Hemoglobin Auto test strip Ql (U) Negative Negative [facility] Urine leukocyte esterase det ection by automated test stripOrdered By: Fernando Rizo on 05-01-2023 Leukocyte esterase Auto test strip Ql (U) 2+ Negative [facility] Urine pH measurement by auto mated test stripOrdered By: Fernando Rizo on 05-01-2023 pH (U) 5.0 [pH] Normal 5.0-9.0 [facility] Comment on above: Order Comment: Name Collection Type:: Clean-Voided Midstream Performed By: #### B NILE MURRELL #### [address] Urobilinogen Auto test strip (U) [Mass/Vol]Ordered By: Fernando Rizo on 05-01-2023 Urobilinogen (U) [Mass/Vol] Normal mg/dL Normal [facility] XR chest 1V portableon 05-01 XR chest 1V portable [facility] [place] [address] [place] [address] XRay Report Signed Patient: Altagracia Conway MR#: [id number] : 1955 Acct:[id number] Age/Sex: 67 / M ADM Date: 05/01/23 Loc: ER Room: Type: [facility] ER Attending Dr: Copies to: Fernando Rizo PA-C Ordering Provider: Fernando Rizo PA-C Date of Service: 05/01/23 XR/XR chest 1V portable: Shortness of Breath/Dyspnea XR chest 1V portable 05/01/2023 6:04 PM SIGNS AND SYMPTOMS: Shortness of breath PROTOCOL: Frontal radiograph of the chest COMPARISON: 04/13/2023 FINDINGS: The trachea is midline. There is a right-sided Uyqzys-o-Cofq. The heart and mediastinal structures are within normal limits. Interstitial prominence is present in the lung parenchyma bilaterally. The lung parenchyma is clear. The bony thorax is intact. Degenerative changes are noted in the shoulders and thoracic spine. XR/XR chest 1V portable IMPRESSION: Interstitial prominence is noted bilaterally worse when compared to the prior exam. No focal consolidation. Impression dictated by: Jerry Lilly M.D.05/01/2023 6:32 PM Dictation Location: [place] [address] Transcribed By: [facility] 05/01/231831 Dictated By: Jerry Lilly II, MD 05/01/231830 Signed By: 05/01/231831 Normal [facility] Nonvisit Note - PTon 024 Nonvisit Note - PT Pt called and spoke with clerical staff stating he wanted to cancel all future PT sessions as he is unable to afford the copay. Normal [facility] Consent for Treatmenton 04-11 Consent for Treatment [id number]#1.00T [facility] PT - Assessmentson PT - Assessments [id number]#1.00T [facility] PT - Consentson 04-22-2023 PT - Consents [id number]#1.00T [facility] PT - Home Exercise Programon 04-22-2023 PT - Home Exercise Program [id number]#1.00T [facility] Outside Recordson 04-15-2023 Outside Records [id number]#1.00T [facility] PT - Orderson 04-15-2023 PT - Orders [id number]#1.00T [facility] Activated partial thrombopla stin time (aPTT) in platelet poor plasma by coagulation aOrdered By: Dario Bianchi on 04-13-2023 aPTT Coag (PPP) [Time] 86.9 s 25.1-36.5 [facility] Comment on above: A hematocrit value g reater than 55% may lead to inaccurate results in coagulation testing. Patients having hematocrit values >55% require a special collection tube for coagulation studies. Please contact the laboratory at [phone] for redraw instructions. Alanine aminotransferase [En zymatic activity/volume] in Serum or PlasmaOrdered By: Dario Bianchi on 04-13-2023 ALT [Catalytic activity/Vol] 16 U/L 7-52 [facility] Albumin [Mass/volume] in Ser um or Plasma by Bromocresol green (BCG) dye binding methoOrdered By: Dario Bianchi on 04-13-2023 Albumin BCG dye [Mass/Vol] 3.8 g/dL 3.5-5.7 [facility] Alkaline phosphatase [Enzyma tic activity/volume] in Serum or PlasmaOrdered By: Dario Bianchi on 04-13-2023 ALP [Catalytic activity/Vol] 133 U/L 34-104 [facility] Aspartate aminotransferase [ Enzymatic activity/volume] in Serum or PlasmaOrdered By: Dario Bianchi on 04-13-2023 AST [Catalytic activity/Vol] 20 U/L 13-39 [facility] Basophils Auto (Bld) [#/Vol] Ordered By: Dario Bianchi on 04-13-2023 Basophils (Bld) [#/Vol] 0.1 10*3/uL 0.0-0.2 [facility] Basophils/100 WBC Auto (Bld) Ordered By: Dario Bianchi on 04-13-2023 Basophils/100 WBC (Bld) 1.2 % . F [facility] Bilirubin.total [Mass/volume ] in Serum or PlasmaOrdered By: Dario Bianchi on 04-13-2023 Bilirubin [Mass/Vol] 0.3 mg/dL 0.3-1.0 [facility] COVID CepheidOrdered By: Gretta Bianchi on 04-13-2023 SARS-CoV-2 (COVID-19) Ab IA Ql Negative Negative [facility] Comment on above: This is a duplicate [employer] Xpert Xpress CoV-2/Flu/RSV Plus RNA by RT-PCR result to be used for statistical tracking purpose only. SARS-CoV-2 (COVID-19) RNA ANN+probe Ql (Unsp spec) [facility] SARS-CoV-2 (COVID-19) RNA ANN+probe Ql (Unsp spec) [facility] Calcium [Mass/volume] in Ser um or PlasmaOrdered By: Dario Bianchi on 04-13-2023 Calcium [Mass/Vol] 9.2 mg/dL 8.6-10.3 [facility] Carbon dioxide, total [Moles /volume] in Serum or PlasmaOrdered By: Dario Bianchi on 04-13-2023 CO2 [Moles/Vol] 27.9 mmol/L 21.0-31.0 [facility] Chloride [Moles/volume] in S iqra or PlasmaOrdered By: Dario Bianchi on 04-13-2023 Chloride [Moles/Vol] 108 mmol/L 98-107 [facility] Creatine kinase [Enzymatic a ctivity/volume] in Serum or PlasmaOrdered By: Dario Bianchi on 04-13-2023 CK [Catalytic activity/Vol] 131 U/L 30-223 [facility] Creatinine [Mass/volume] in Serum or PlasmaOrdered By: Dario Bianchi on 04-13-2023 Creatinine [Mass/Vol] 1.31 mg/dL 0.70-1.30 [facility] Eosinophils Auto (Bld) [#/Vo l]Ordered By: Dario Bianchi on 04-13-2023 Eosinophils (Bld) [#/Vol] 0.6 10*3/uL 0.0-0.45 [facility] Eosinophils/100 WBC Auto (Bl d)Ordered By: Dario Bianchi on 04-13-2023 Eosinophils/100 WBC (Bld) 9.6 % . [facility] Erythrocyte distribution wid th Auto (RBC) [Ratio]Ordered By: Dario Bianchi on 04-13-2023 Erythrocyte distribution width (RBC) [Ratio] 14.2 % 12.0-14.8 [facility] Globulin Calc (S) [Mass/Vol] Ordered By: Dario Bianchi on 04-13-2023 Globulin (S) [Mass/Vol] 3.5 g/dL [facility] Glucose [Mass/volume] in Ser um or PlasmaOrdered By: Dario Bianchi on 04-13-2023 Glucose [Mass/Vol] 110 mg/dL 70-100 [facility] Comment on above: ADA recommended refe rence rangeRandom Glucose Reference Range is dependent on time and content of last meal. Glucose of more than 200 mg/dL in a nonstressed, ambulatory subject supports the diagnosis of Diabetes Mellitus. Hematocrit Auto (Bld) [Volum e fraction]Ordered By: Dario Bianchi on 04-13-2023 Hematocrit (Bld) [Volume fraction] 32.7 % 38.8-50.0 [facility] Hemoglobin [Mass/volume] in BloodOrdered By: Dario Bianchi on 04-13-2023 Hemoglobin (Bld) [Mass/Vol] 10.8 g/dL 13.0-17.0 [facility] INR in Platelet poor plasma by Coagulation assayOrdered By: Dario Bianchi on 04-13-2023 INR Coag (PPP) [Relative time] 1.0 {INR} [facility] Comment on above: INR Therapeutic Rang e A) Pre- and Peroperative OAT started two weeks before surgery. NOT HIP SURGERY: 1.5 - 2.5 HIP SURGERY: 2 - 3B) Primary and secondary prevention of venous THROMBOSIS: 2 - 3C) Active venous thrombosis, pulmonary embolismand prevention of recurrent venous thrombosis: 2 - 3D) Prevention of arterial thromboembolismincluding patients with mechanical heart valves: 3 - 4.5 Leukocytes [#/volume] correc lamont for nucleated erythrocytes in Blood by Automated counOrdered By: Dario Bianchi on 04-13-2023 WBC corrected for nucl RBC Auto (Bld) [#/Vol] 6.0 10*3/uL 4.1-10.5 [facility] Lymphocytes Auto (Bld) [#/Vo l]Ordered By: Dario Bianchi on 04-13-2023 Lymphocytes (Bld) [#/Vol] 1.2 10*3/uL 1.00-4.8 [facility] Lymphocytes/100 WBC Auto (Bl d)Ordered By: Dario Bianchi on 04-13-2023 Lymphocytes/100 WBC (Bld) 20.9 % . [facility] MCH Auto (RBC) [Entitic mass ]Ordered By: Dario Bianchi on 04-13-2023 MCH (RBC) [Entitic mass] 28.4 pg 27.5-35.2 [facility] MCHC Auto (RBC) [Mass/Vol]Or dered By: Dario Bianchi on 04-13-2023 MCHC (RBC) [Mass/Vol] 33.2 g/dL 32.5-35.6 [facility] MCV Auto (RBC) [Entitic vol] Ordered By: Dario Bianchi on 04-13-2023 MCV (RBC) [Entitic vol] 85.6 fL 83.5-101 F [facility] Magnesium [Mass/volume] in S iqra or PlasmaOrdered By: Dario Bianchi on 04-13-2023 Magnesium [Mass/Vol] 1.6 mg/dL 1.9-2.7 [facility] Monocyte distribution width [Entitic volume] in Blood by AutomatedOrdered By: Dario Bianchi on 04-13-2023 Monocyte distribution width Auto (Bld) [Entitic vol] 19.89 % 0.00-20.00 [facility] Monocytes Auto (Bld) [#/Vol] Ordered By: Dario Bianchi on 04-13-2023 Monocytes (Bld) [#/Vol] 0.5 10*3/uL 0.0-0.8 [facility] Monocytes/100 WBC Auto (Bld) Ordered By: Dario Bianchi on 04-13-2023 Monocytes/100 WBC (Bld) 8.7 % . F [facility] Natriuretic peptide B [Mass/ Vol]Ordered By: Dario Bianchi on 04-13-2023 Natriuretic peptide B (Bld) [Mass/Vol] 29.0 pg/mL 5-100 [facility] Neutrophils Auto (Bld) [#/Vo l]Ordered By: Dario Bianchi on 04-13-2023 Neutrophils (Bld) [#/Vol] 3.6 10*3/uL 1.8-7.7 [facility] Neutrophils/100 WBC Auto (Bl d)Ordered By: Dario Bianchi on 04-13-2023 Neutrophils/100 WBC (Bld) 59.6 % . [facility] No Panel InformationOrdered By: Dario Bianchi on 04-13-2023 Estimated GFR (CKD-EPI) 59.660 mL/Min [facility] Creatinine Clearance (Chem 71.33 [facility] Nucleated erythrocytes [Pres ence] in Blood by Automated countOrdered By: Dario Bianchi on 04-13-2023 Nucleated RBC Auto Ql (Bld) 0.1 /100{WBC} 0-0.5 [facility] Platelet mean volume Auto (B ld) [Entitic vol]Ordered By: Dario Bianchi on 04-13-2023 Platelet mean volume (Bld) [Entitic vol] 8.3 fL 6.6-10.1 [facility] Platelets Auto (Bld) [#/Vol] Ordered By: Dario Bianchi on 04-13-2023 Platelets (Bld) [#/Vol] 188 10*3/uL 150-450 [facility] Potassium [Moles/volume] in Serum or PlasmaOrdered By: Dario Bianchi on 04-13-2023 Potassium [Moles/Vol] 4.7 mmol/L 3.5-5.1 [facility] Protein [Mass/volume] in Ser um or PlasmaOrdered By: Dario Bianchi on 04-13-2023 Protein [Mass/Vol] 7.3 g/dL 6.4-8.9 [facility] Prothrombin time (PT)Ordered By: Dario Bianchi on 04-13-2023 PT Coag (PPP) [Time] 11.7 s 9.0-12.9 [facility] Comment on above: A hematocrit value g reater than 55% may lead to inaccurate results in coagulation testing. Patients having hematocrit values >55% require a special collection tube for coagulation studies. Please contact the laboratory at [phone] for redraw instructions. RBC Auto (Bld) [#/Vol]Ordere d By: Dario Bianchi on 04-13-2023 RBC (Bld) [#/Vol] 3.82 10*6/uL 3.90-5.60 [facility] Serum or plasma albumin/glob ulin mass ratioOrdered By: Dario Bianchi on 04-13-2023 Albumin/Globulin [Mass ratio] 1.1 {ratio} [facility] Serum or plasma anion gap de terminationOrdered By: Dario Bianchi on 04-13-2023 Anion gap [Moles/Vol] 8.8 mmol/L 6.0-15.0 [facility] Sodium [Moles/volume] in Ser um or PlasmaOrdered By: Dario Bianchi on 04-13-2023 Sodium [Moles/Vol] 140 mmol/L 136-145 [facility] Troponin I.cardiac [Mass/vol ume] in Serum or Plasma by Detection limit <= 0.01 ng/Ordered By: Dario Bianchi on 04-13-2023 Troponin I.cardiac DL <= 0.01 ng/mL [Mass/Vol] 7.1 pg/mL 0.0-20.0 [facility] Urea nitrogen [Mass/volume] in Serum or PlasmaOrdered By: Dario Bianchi on 04-13-2023 Urea nitrogen [Mass/Vol] 31 mg/dL 7-25 [facility] WBC Auto (Bld) [#/Vol]Ordere d By: Dario Bianchi on 04-13-2023 WBC (Bld) [#/Vol] 6.0 10*3/uL 4.1-10.5 [facility] CNOVon 03-29-2023 CNOV Office Visit (CLARIBEL ) ALTAGRACIA CONWAY ([id number]) 1955 M [facility] Date Time Provider Department 03/29/23 1:30 PM ELBA HENRY During your visit today, we recorded the following information about you: Elba Henry PA-C 03/29/2023 3:18 PM Signed Pain Management Follow Up Visit Date: March 29, 2023 Altagracia Conway is a 67 year old male returns today for follow up of Back, he states that symptoms have not changed. Current pain intensity is 6 on a scale of 0 -10. Location of pain: Back- lower Duration: 3 weeks ago, was not directly related to trauma, and symptoms have been stable. Description of pain: aching Pain scores - current: 6/10 - worst: 6/10 - best: 3/10 Aggravating factors: standing, forward flexion, lifting, getting up from sitting, and walking. Alleviating Factors: unable to pinpoint positions/factors that are mitigating. Review of Symptoms: GENERAL:No weight loss, malaise or fevers., SEE HPI GASTROINTESTINAL: Negative for abdominal discomfort, blood in stools or black stools or change in bowel habits GENITOURINARY: No history of dysuria, frequency or incontinence MUSCULOSKELETAL: SEER HPI NEUROLOGIC:Negative for focal numbness or weakness, headaches and dizziness or syncope. PREVIOUS TREATMENTS LASTING SIX WEEKS IN THE LAST SIX MONTHS Active conservative therapy lasting 6 weeks in the last six months (see below) 1. Physical therapy: No 2. Home exercise program after PT: No 3. Occupational therapy: No 4. A physician supervised home exercise program (HEP): No 5. Camp Director: No Passive conservative therapy lasting 6 weeks in the last six months (see below) 1. Medical devises: No 2. Acupuncture: No 3. Tens unit: No 4. Prescription pain medication: No 5. NSAIDS: No DEVIN Smith March 29, 2023 1:58 PM The subjective information: including chief complaint, and past medical history, was explored in detail with the patient and edited as needed and is complete. Elba Henry PA-C March 29, 2023 NOHELIA: 02/19/23 - Elba Henry PA-C PLAN: 1) Start methocarbamol 500 mg Take one (1) tablet three(3) times daily as needed. 2) Use of heat and stretching. 3) SCS reprogramming today to hopefully get better coverage of his toes at this time. 4) Altagracia Conway was advised to contact us immediately if any signs of infection: fever, chills, redness/swelling at the battery site. Physical Examination: General:well appearing, alert, and in no acute distress Skin: skin color, texture, turgor normal, no rashes or lesions HEENT: normocephalic, atraumatic, sclera non-icteric Cardiovascular:Regular rate and rhythm Lungs: Respirations even and non-labored. Left Leg - 2+ pitting edema distal to the knee. Musculoskeletal: - Back: Tenderness over the left lower lumbar facets. Back pain increases with extension and left facet loading test. Tenderness with palpation over the left SI Joint: Gaenslen's Test negative and Greenwood's Test is negative. No tenderness with palpation over the IPG in the left buttock. Neurological: Mental Status: alert and oriented x 3 Motor Strength: Motor strength is 5/5 all throughout in the bilateral lower extremities. Sensory: Sensation was intact to light touch all throughout. Gait: Antalgic. Current Anticoagulant Therapy: No DM: Yes HPI AND ASSESSMENT: Parts of this note were copied from the last office visit note by Elba Henry PA-C dated: 02/19/23, changes were made to appropriately reflect updated history and interval events, physical exam, data review, and medical decision making. Altagracia Conway is a 67 year old male, is an established patient of Dr. 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 He had a placement of Percutaneous spinal cord stimulator (SCS) lead implantation x 2 and [employer] adaptiveStim system implantable pulse generator (IPG), on 11/13/[address] Ortega. His last office visit was on 02/19/23 with Elba Henry PA-C at which time he reported pain in the left buttock around the the IPG. At that time I recommended use of heat, stretching, and muscle relaxant for the pain. Altagracia Conway also met with the [employer] rep for SCS reprogramming. Altagracia Conway reports continued bilateral foot pain he reports minimal improvement in his foot pain even with the SCS and multiple reprogramming sessions. Altagracia Conway met again with [employer] rep today for SCS reprogramming. Today, Altagracia Conway reports continued pain in the left lower back and into the left buttock. He reports no changes in his pain since his last visit on 02/19/23. He reports the prescribed muscle relaxant did not help with the pain. He reports constant pain that waxes and wanes. He describes the pain as aching. He rates his pain from 3-6/10. H (more content not included)... Normal [facility] CNPNon 03-29-2023 CNPN Telephone (BHARATHAVN) ALTAGRACIA CONWAY ([id number]) 1955 M [facility] Date Time Provider Department 03/29/23 ELBA HENRY During your visit today, we recorded the following information about you: Elba Henry PA-C 03/29/2023 4:09 PM Signed Please advise Altagracia Conway that US of his leg showed no sign of blood clots. However enlarged lymph nodes in the groin and I Recommend he follow up with his Primary Care provider for further evaluation. X-ray of the lumbar spine showed: degenerative disc disease greatest at the L5-S1 level and facet joint - degenerative changes at L4-5 and L5-S1. Elba Henry PA-C March 29, 2023 Cathy Garcia RN 03/29/2023 4:35 PM Signed Called and left message for patient with the message from Dinesh Henry: Please advise Altagracia Conway that US of his leg showed no sign of blood clots. However enlarged lymph nodes in the groin and I Recommend he follow up with his Primary Care provider for further evaluation. X-ray of the lumbar spine showed: degenerative disc disease greatest at the L5-S1 level and facet joint - degenerative changes at L4-5 and L5-S1. Elba Henry PA-C March 29, 2023 Left office number for patient to return call if he has further questions. Allergies As of Date: 03/29/2023 Noted Allergy Reaction POLLEN 01/22/2002 Comments: runny itchy eyes and nose Date Reviewed: 03/29/2023 Reviewed by: Paola Ruff OCCA - Fully Assessed Reason for Visit: Results [95] Prescriptions as of 03/29/2023 - insulin lispro protamin/lispro (HUMALOG MIX 50-50 KWIKPEN SUBCUTANEOUS) Inject 34 Units subcutaneously DAILY (6 AM). - insulin degludec (TRESIBA FLEXTOUCH U-100) 100 unit/mL (3 mL) injection pen 34 Applicators by abdominal subcutaneous route once daily. - blood-glucose sensor (DEXCOM G7 SENSOR MISC) 1 Each. - insulin aspart U-100 (NOVOLOG FLEXPEN U-100 INSULIN) 100 unit/mL (3 mL) 60 units in morning, 60 units for lunch, and sliding scale for dinner - amlodipine besylate (AMLODIPINE ORAL) Take 10 mg by mouth once daily. - levomilnacipran (FETZIMA) 120 mg ER capsule Take 160 mg by mouth once daily. - tamsulosin (FLOMAX) 0.4 mg Take 0.4 mg by mouth once daily. - furosemide (LASIX) 20 mg tablet Take 20 mg by mouth once daily. - mirtazapine (REMERON) 45 mg tablet Take 45 mg by mouth daily at bedtime. - pregabalin (LYRICA) 150 mg capsule Take 150 mg by mouth. Weaning off medication - CREON 36,000-114,000- 180,000 unit delayed release capsule Take 2 capsules by mouth three times daily. - budesonide-formoterol (SYMBICORT) 160-4.5 mcg/actuation inhaler Inhale 2 Puffs as instructed twice daily. - albuterol HFA (PROVENTIL HFA, VENTOLIN HFA) 90 mcg/actuation inhaler Inhale 2 Puffs as instructed every 4 hours as needed for Wheezing/Shortness of Breath. - lisinopril(PRINIVIL 20 MG TAB) Take one(1) tablet daily. - atorvastatin calcium(LIPITOR 10 MG TAB) Take one(1) tablet daily. - lorazepam(ATIVAN 1 MG TAB) Take by mouth. 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, T*08/13/2022 Bilateral foot pain [M79.671, M79.672] 08/13/2022 Bilateral hand pain [M79.641, M79.642] 08/13/2022 Recurrent major depression in remission (HCC) [*09/07/2022 History of amputation of right great toe (HCC) *09/07/2022 Hypertension [I10] 10/18/2022 Hyperlipidemia [E78.5] 10/18/2022 Current smoker [F17.200] 10/18/2022 Obesity (BMI 30-39.9) [E66.9] 10/18/2022 Malignant neoplasm of pancreas (HCC) [C25.9] 10/19/2022 Stage 3 chronic kidney disease (HCC) [N18.30] 10/19/2022 Chronic obstructive pulmonary disease (HCC) [J4*10/19/2022 Obesity, Class I, BMI 30-34.9 [E66.9] 03/29/2023 Encounter Status:Closed by ELBA HENRY on 03/29/23 Normal [facility] US DVT LOWER LTon 03-29-2023 US DVT LOWER LT * * *Final Report* * * DATE OF EXAM: Mar 29 2023 3:10PM U 1006 - US DVT LOWER LT / PROCEDURE REASON: Edema of left lower extremity * * * * Physician Interpretation * * * * EXAMINATION: LEFT LOWER EXTREMITY DEEP VENOUS ULTRASOUND WITH DOPPLER IMAGING CLINICAL HISTORY: Leg swelling TECHNIQUE: Grayscale with compression maneuvers, color Doppler and spectral Doppler imaging of the left proximal deep veins was performed. Grayscale with compression maneuvers of the peroneal and posterior tibial veins was performed. The left great and small saphenous veins were evaluated at their insertion to the deep system. The contralateral common femoral vein was imaged for comparison. Images were obtained and stored in a permanent archive. MQ: [id number] COMPARISON: None RESULT: LEFT LOWER EXTREMITY PROXIMAL DEEP VEINS Distal External Iliac, Common Femoral and proximal Profunda Veins: Compression: Normal Doppler: Normal, spontaneous respirophasic flow. Normal response to augmentation. Femoral vein: Compression: Normal Doppler: Normal, spontaneous flow. Normal response to augmentation. Popliteal vein: Compression: Normal Doppler: Normal, spontaneous flow. Normal response to augmentation. CALF DEEP VEINS: The left calf veins are not well visualized due to soft tissue edema. Gastrocnemius and Soleal veins: Not imaged. SUPERFICIAL VEINS Great saphenous: Patent and compressible at insertion into common femoral vein; not otherwise assessed. Small Saphenous: Patent and compressible in the proximal calf, not otherwise assessed. There is 4.2 x 3.7 x 1.2 cm enlarged left inguinal lymph node. RIGHT LOWER EXTREMITY (FOR COMPARISON) Common Femoral Vein: Compression: Normal Doppler: Normal, spontaneous respirophasic flow. Normal response to augmentation. There is 2.5 x 1.8 x 0.9 cm enlarged right inguinal lymph node. IMPRESSION: NEGATIVE STUDY FOR PROXIMAL DVT IN THE LEFT LOWER EXTREMITY. NONDIAGNOSTIC STUDY FOR CALF DVT IN THE LEFT LOWER EXTREMITY. NEGATIVE STUDY FOR SUPERFICIAL THROMBOPHLEBITIS IN THE IMAGED SEGMENTS OF THE LEFT LOWER EXTREMITY. MILD BILATERAL INGUINAL ADENOPATHY ((RIGHT), PROBABLY INFLAMMATORY. SUGGEST CLINICAL CORRELATION AND FOLLOW-UP. Scaffold Builder[facility] Transcribe Date/Time: Mar 29 2023 3:58P Dictated by : DAVID RAPHAEL MD This examination was interpreted and the report reviewed and electronically signed by: DAVID RAPHAEL MD on Mar 29 2023 4:01PM EST [id number] [facility] XR LUMBAR 4V AP/LAT/ FLEX/EX Ton 03-29-2023 XR LUMBAR 4V AP/LAT/ FLEX/EXT * * *Final Report* * * DATE OF EXAM: Mar 29 2023 3:23PM [id number] - XR LUMBAR 4V AP/LAT/ FLEX/EXT / PROCEDURE REASON: Acute left-sided low back pain without sciatica * * * * Physician Interpretation * * * * XR LUMBAR 4V AP/LAT/ FLEX/EXT PROVIDED HISTORY: Acute left-sided low back pain without sciatica COMPARISON: No previous similar exams are available for comparison TECHNIQUE: 4 views. Counting reference: Lumbosacral junction. For the purposes of this report, L4-5 is considered the level of the iliac crest and assume there are 5 lumbar-type vertebrae. Anatomic variant: None. RESULT: Spinal stimulator device with leads in the lower thoracic region. Bony mineralization appears within normal limits. Anterior loss of height at L1 mild in degree. Moderate disc degenerative narrowing at T12-L1 and L1-2. Moderate to severe narrowing at L5-S1. Moderate facet degenerative change L4-5 and L5-S1. No subluxation seen. No acute fracture visualized. IMPRESSION: Mild compression deformity seen at the L1 level. Lower lumbar facet degenerative change. Disc degenerative narrowing as described. Scaffold Builder: [facility] Transcribe Date/Time: Mar 29 2023 3:39P Dictated by : LIANG SANCHEZ MD This examination was interpreted and the report reviewed and electronically signed by: LIANG SANCHEZ MD on Mar 29 2023 3:40PM EST [id number] [facility] 02-19-2023 [facility] Office Visit (CLARIBEL ) CONWAYROSENDA BUSTAMANTEJose Cruz Montiel ([id number]) 1955 M [place] Date Time Provider Department 02/19/23 2:30 PM ELBA HENRY During your visit today, we recorded the following information about you: Pulse Blood pressure Weight 85/minute 129/70 107.5 kg Elba Henry PA-C 02/19/2023 3:20 PM Signed Pain Management Follow Up Visit Date: February 19, 2023 Altagracia Gonzalezner is a 67 year old male returns today for follow up of low back pain, he states that symptoms are slightly worse. Current pain intensity is 8 on a scale of 0 -10. Location of pain: low back Duration: many years ago, was not directly related to trauma, and symptoms have been persistent. Description of pain: dull and sharp Pain scores - current: 8/10 - worst: 10/10 - best: 0/10 Aggravating factors: sitting and standing. Alleviating Factors: lying down. Review of Symptoms: GENERAL:No weight loss, malaise or fevers., SEE HPI GASTROINTESTINAL: Negative for abdominal discomfort, blood in stools or black stools or change in bowel habits GENITOURINARY: No history of dysuria, frequency or incontinence MUSCULOSKELETAL: See HPI NEUROLOGIC:Negative for focal numbness or weakness, headaches and dizziness or syncope. PREVIOUS TREATMENTS LASTING SIX WEEKS IN THE LAST SIX MONTHS Active conservative therapy lasting 6 weeks in the last six months (see below) 1. Physical therapy: No 2. Home exercise program after PT: No 3. Occupational therapy: No 4. A physician supervised home exercise program (HEP): No 5. Camp Director: No Passive conservative therapy lasting 6 weeks in the last six months (see below) 1. Medical devises: No 2. Acupuncture: No 3. Tens unit: No 4. Prescription pain medication: No 5. NSAIDS: No Starr LorenzaEFRA February 19, 2023 2:33 PM The subjective information: including chief complaint, and past medical history, was explored in detail with the patient and edited as needed and is complete. Elba Henry PA-C February 19, 2023 NOHELIA: 11/20/22 - Elba Henry PA-C Plan: SCS surgical sites healing well - incisions well approximated. [employer] rep present for appointment and SCS reprogramming was performed. Complete post-procedural antibiotics as ordered. RTC in 3 months or sooner if needed. Physical Examination: BP 129/70 Pulse 85 Wt 237 lb (107.5kg) General:well appearing, alert, and in no acute distress Skin: skin color, texture, turgor normal, no rashes or lesions HEENT: normocephalic, atraumatic, sclera non-icteric Cardiovascular:Regular rate and rhythm Lungs: Respirations even and non-labored. Musculoskeletal: - SCS battery in the left upper buttock. There is no pain with direct palpation over the battery. There is no redness, swelling or heat of the battery area. Surgical incision appears fully healed. There is tenderness proximal to the IPG over the left lower lumbar paraspinal muscles with noted spasms. Neurological: Mental Status: alert and oriented x 3 OARRS: PDMP website checked and validated. All prescriptions have been APPROPRIATELY filled. No suspicious activity was identified. - on February 19, 2023 by Elba Henry PA-C - 01/30/23 pregabalin 150 mg #180/90 Tiki Dockery DO - 01/10/23 lorazepam 1 mg #45/23 days Kenn Bee MD HPI AND ASSESSMENT: Parts of this note were copied from the last office visit note by Elba Henry PA-C dated: 11/20/22, changes were made to appropriately reflect updated history and interval events, physical exam, data review, and medical decision making. Altagracia Conway is a 67 year old male, is an established patient of Dr. Jordan Ortega , his last office visit was on 11/20/22 with Elba Henry PA-C for post-op evaluation after placement of Percutaneous SCS lead implantation x 2 and [employer] Intellis adaptiveStim system implantable pulse generator, on 11/13/[address] 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 Today, Altagracia Conway reports pain in the left buttock area around his spinal cord stimulator battery. He repots this pain started a few weeks ago and has been worsening. He reports this pian occurs with sitting and standing and resolves with lying down. He describes the pain as dull, s/harp and like a pinched nerve. He rates the pain from 0-10, currently an 8/10. He does not remember any trauma to the area or doing anything that would cause this pain. He also reports he is not happy with his SCS coverage for his chronic foot pain . He reports he has mild improvement in his forefoot pain with the SCS despite multiple reprogramming. Conor Lazo, [employer] rep, is present today and will again try reprogramming. Altagracia Conway denies any fever or chills or any other new symptoms with this left buttock pain. On exam there are no signs (more content not included)... Normal [facility] Coding Summary.on 02-19-2023 Coding Summary. [id number]#[id number] IFF Normal [facility] Insurance Correspondenceon 1 04-18-2022 Insurance Correspondence [id number]#1.00 TIFF Normal [facility] Insurance Correspondence Off ice02-08-2023 Insurance Correspondence Office [id number]#1.00T IFF Normal [facility] ED Note-Physicianon 02-08-20 ED Note-Physician Basic Information Time Seen: Danielle Vance MD 02/03/2023 18:48 Chief Complaint Pt. came here d/t SOB that started this morning, pt said that he experienced this last week and was resolved with breathing tx./inhaler he had at home. Tried tx/inhaler today and didn't helped. Hx of Pancreatic cancer, DM, HPN, neuropathy. Denies fever/ch History of Present Illness 67-year-old male presents with complaint of shortness of breath. Patient states he noticed that this morning when he was attempting to make his bed. He states that there was no associated pain with this. He has noticed no increased cough. He states that he took several breathing treatments at home and that had no effect on the shortness of breath. He has had an infrequent cough with this. He denies chronic lung disease states that because of rattling in his chest his family doctor put him on bronchodilators about 6 months ago. Patient has a remote history of pancreatic cancer 5 years ago. Does not complain of abdominal pain nausea or vomiting. States his appetite is fairly normal. Denies any pain in his legs denies any history of DVT or PE. Review of Systems A 10 point review of systems is negative except as noted above. Medical and Surgical History: Reviewed and noted Social history: Lives at home Tobacco: Denies Physical Exam Vitals & Measurements T: 36.7 ?C(Oral) HR: 78(Monitored) RR: 18 BP: 158/82 SpO2: 96% HT: 187 cm WT: 108 kg BMI: 30.88 This is a mildly overweight 67-year-old male he is alert and oriented skin is warm and dry color is pink on room air. Oral mucosa is moist. There is no detectable JVD. Patient does not show accessory muscle usage. Fairly good air entry bilaterally but there are a few scattered inspiratory rales in brief wheezes at the bases left and right. Heart sounds are distant but regular. The abdomen is soft and nontender to deep palpation. Lower extremities show no edema and no tenderness. Medical Decision Making In the absence of chills fever productive cough and a remote history of cancer the possibility of a PE is considered. The patient's chest x-ray does not show any active infiltrate. The patient's kidney function however is fairly diminished. As such we will consider admission for perfusion scan tomorrow morning. We will discuss anticoagulation with the hospitalist upon admission. Assessment/Plan 1. Shortness of breath at rest (R06.02: Shortness of breath) 2. Elevated d-dimer (R79.89: Other specified abnormal findings of blood chemistry) 3. Chronic renal disease, stage III (N18.30: Chronic kidney disease, stage 3 unspecified) Orders: albuterol-ipratropium, 3 mL, Soln-Inh, Inhalation, Once, Stop date 02/03/23 18:56:00 EST, STAT, Start date 02/03/23 18:56:00 EST Automated Diff B-Type Natriuretic Peptide Basic Metabolic Panel Blood Culture Charcoal Blood Culture Charcoal CBC w/ Auto Diff Communication Order Physician to Nursing Continuous Pulse Oximetry D-Dimer ECG 12 Lead Adult ED Cardiac Monitoring ED Physician consult Hospitalist for continued care eGFR Oxygen Therapy PT & PTT Rapid COVID Antigen [place] Saline Lock Insert Troponin 0 Hr. Troponin 3 Hr. Troponin 6 Hr. Troponin 9 Hr. XR Chest Single View Medications Administered Given albuterol-ipratropium Inh Annette 3 mL UD, 3 mL, Inhalation Disposition Plan Patient Discharge Condition Guarded Discharge Disposition Admit to observation Discharge Prescription List Prescriptions No active prescription medications Follow-up No qualifying data available Problem List/Past Medical History Ongoing Brachial plexus neuropathy Contusion of knee, right Depression with anxiety Diabetes Diabetes Hepatitis C Hepatitis C HTN (hypertension) Hyperlipidemia Hypertension Medial collateral ligament sprain of knee Smoker Historical No qualifying data Procedure/Surgical History Amputated toe (03/11/2015). Medications Inpatient No active inpatient medications Home busPIRone 10 mg Tab, 30 mg= 3 tab(s), Oral, TID Fetzima 120 mg oral capsule, extended release, Daily hydrochlorothiazide 25 mg Tab, 25 mg= 1 tab(s), Oral, Daily insulin glargine, 20 unit(s), SubCutaneous, BID insulin lispro, 0-10 units, SubCutaneous, QIDACHS Lipitor, 40 mg, Oral, Daily losartan 50 mg Tab, 100 mg= 2 tab(s), Oral, Daily Metoprolol tartrate 25 mg Tab, 25 mg= 1 tab(s), Oral, BID Miralax 3350 17 gram packet, Oral, Daily mirtazapine 30 mg Tab, 30 mg= 1 tab(s), Oral, Once a day (at bedtime) Pantoprazole [address] Tab, 40 mg= 1 tab(s), Oral, Daily pregabalin 150 mg Cap, 150 mg= 1 cap(s), Oral, BID tamsulosin 0.4 mg Cap, 0.4 mg= 1 cap(s), Oral, Daily Tylenol 325 mg Tab, 650 mg, Oral, q6hr, PRN Allergies Ragweed Social History Alcohol - Denies Alcohol Use, 04/30/2017 Current, 02/22/2019 Current, 07/12/2018 Current, 04/30/2017 Substance Abuse - Denies Substance Abuse, 07/28/2014 Current, 02/22/2019 Current, 07/12/2018 Tobac (more content not included)... [facility] Comment on above: Result Comment: Elec tronically Signed By: Tito WU, Danielle\.br\Date and Time Signed: 02/07/23 23:41 EST Insurance Correspondence Off iceon 02-06-2023 Insurance Correspondence Office [id number]#1.00 TIFF [facility] C Urineon 02-05-2023 Bacteria identified Cx Nom (U) Microbiology PROCEDURE: Urine Culture [R1] SOURCE: U CleanCatch BODY SITE: COLLECTED DATE/TIME: 02/03/2023 20:25 EST RECEIVED DATE/TIME: 02/03/2023 20:35 EST START DATE/TIME: 02/03/2023 20:35 EST FREE TEXT SOURCE: Tito WU, Danielle Vance MD, Danielle FINAL REPORTS Final Report [] Verified Date/Time: 02/05/2023 10:51 EST 200 cfu/ml Mixed skin contaminants Performing Locations R1: This test was performed at: [facility], [address] [place] [address], [facility]- , , [facility] Comment on above: Performed By: #### 1 [id number] #### [facility] [address] [place] [address] Consent To Leave AMAon 02-05 Consent To Leave AMA [id number]#1.00 TIFF [facility] Discharge Instructionson Discharge Instructions [id number]#1.00 TIFF [facility] Medication Listson 3 Medication Lists [id number]#1.00 TIFF [facility] Message from Medicareon 01-10 Message from Medicare [id number]#1.00 [facility]FF [facility] Anion gap [Moles/Vol] 10 mmol/L Normal 6-16 [facility] Comment on above: Order Comment: draw packet sent. 3s aware. Performed By: #### 2 [id number] #### [facility] [address] [place] [address] Calcium [Mass/Vol] 9.3 mg/dL Normal 8.9-11.1 [facility] Comment on above: Order Comment: draw packet sent. 3s aware. Performed By: #### 2 [id number] #### [facility] [address] [place] [address] Chloride [Moles/Vol] 108 mmol/L Normal 101-111 [facility] Comment on above: Order Comment: draw packet sent. 3s aware. Performed By: #### 2 [id number] #### [facility] [address] [place] [address] CO2 [Moles/Vol] 22 mmol/L Normal 21-31 [facility] Comment on above: Order Comment: draw packet sent. 3s aware. Performed By: #### 2 [id number] #### [facility] [address] [place] [address] Creatinine [Mass/Vol] 1.7 mg/dL High 0.5-1.3 [facility] Comment on above: Order Comment: draw packet sent. 3s aware. Performed By: #### 2 [id number] #### [facility] [address] [place] [address] Glucose [Mass/Vol] 283 mg/dL High 55-199 [facility] Comment on above: Order Comment: draw packet sent. 3s aware. Result Comment: If t his glucose result represents a fasting glucose, interpretation should refer to the following reference range: 55-99 mg/dL Performed By: #### 2 [id number], [id number] #### [facility] [address] [place] [address] Potassium [Moles/Vol] 5.7 mmol/L High 3.5-5.3 [facility] Comment on above: Order Comment: draw packet sent. 3s aware. Performed By: #### 2 [id number], [id number] #### [facility] [address] [place] [address] Sodium [Moles/Vol] 134 mmol/L Low 135-145 [facility] Comment on above: Order Comment: draw packet sent. 3s aware. Performed By: #### 2 [id number] #### [facility] [address] [place] [address] Urea nitrogen [Mass/Vol] 47 mg/dL High 5-21 [facility] Comment on above: Order Comment: draw packet sent. 3s aware. Performed By: #### 2 [id number], [id number] #### [facility] [address] [place] [address] Urea nitrogen/Creatinine [Mass ratio] 28 No Units High 10-20 [facility] Comment on above: Order Comment: draw packet sent. 3s aware. Performed By: #### 2 [id number], [id number] #### [facility] [address] [place] [address] CTA Cheston 02-04-2023 CTA Chest Exam Date/Time: 02/03/2023 22:13 EST Reason for Exam: Pulmonary Emboli (PE) Report IMPRESSION: NO PULMONARY EMBOLISM OR ACUTE INTRATHORACIC PROCESS. STABLE 5 MM LEFT UPPER LOBE NODULE. FOLLOW-UP RECOMMENDED PER FLEISCHNER CRITERIA. EXAM: CTA Chest History: Pulmonary embolism. Shortness breath. Technique: Multiple axial images were obtained of the thorax from the thoracic inlet through the upper abdomen With IV contrast. Multiplanar reformats were obtained including coronal maximum intensity projection images (MIPS). Comparison: CT chest 03/18/2022 Findings: Visualized portion of the thyroid gland is within normal limits. No axillary, mediastinal, or hilar lymphadenopathy. Right-sided central port is present. No thoracic aortic aneurysm or dissection. Mild atherosclerotic calcification of the thoracic aorta. No filling defect within the pulmonary arteries. Heart size is within normal limits. No significant pericardial effusion. Coronary artery calcification are identified. Esophagus is within normal limits. Stable 5 mm left upper lobe nodule. Scattered areas of peripheral lung scarring again identified. No consolidation, pleural effusion, or pneumothorax. Visualized upper abdomen demonstrates no acute abnormality. No acute osseous abnormality. Chronic left rib deformities. Degenerative changes of the spine. Spinal cord stimulator is present. All CT scans at this facility use dose modulation, iterative reconstruction, and/or weight based dosing when appropriate to reduce radiation dose to as low as reasonably achievable. Fleischner Society 2017 Guidelines for Management of Incidentally Detected Pulmonary Nodules in Adults A: Solid Nodules* Single Report Low risk <6 mm No routine follow-up 6-[address] at 6-12 months, then consider CT at 18-24 months >[address] at 3 months, PET/CT, or tissue sampling Nodules <6 mm do not require routine follow-up, but certain patients at high risk with suspicious nodule morphology, upper lobe location, or both may warrant 12-month follow-up (recommendation 1A). High risk <[address] at 12 months 6-[address] at 6-12 months, then CT at 18-24 months >[address] at 3 months, PET/CT, or tissue sampling Nodules <6 mm do not require routine follow-up, but certain patients at high risk with suspicious nodule morphology, upper lobe location, or both may warrant 12-month follow-up (recommendation 1A). Multiple Low risk <6 mm No routine follow-up 6-[address] at 3-6 months, then consider CT at 18-24 months >[address] at 3-6 months, then consider CT at 18-24 months Use most suspicious nodule as guide to management. Follow-up intervals may vary according to size and risk (recommendation 2A). High risk <[address] at 12 months 6-[address] at 3-6 months, then at 18-24 months >[address] at 3-6 months, then at 18-24 months Use most suspicious nodule as guide to management. Follow-up intervals may vary according to size and risk (recommendation 2A). B: Subsolid Nodules* Single Ground glass <6 mm No routine follow-up >=[address] at 6-12 months to confirm persistence, then CT every 2 years until 5 years In certain suspicious nodules <6 mm, consider follow-up at 2 and 4 years. If solid component(s) or growth develops, consider resection. (Recommendations 3A and 4A). Part solid <6 mm No routine follow-up >=[address] at 3-6 months to confirm persistence. If unchanged and solid component remains <6 mm, annual CT should be performed for 5 years. In practice, part-solid nodules cannot be defined as such until >=6 mm, and nodules <6 mm do not usually require follow-up. Persistent part-solid nodules with solid components >=6 mm should be considered highly suspicious (recommendations 4A-4C) Multiple <[address] at 3-6 months. If stable, consider CT at 2 and 4 years. >=[address] at 3-6 months. Subsequent management based on the most suspicious nodule(s). Multiple <6 mm pure ground-glass nodules are usually benign, but consider follow-up in selected patients at high risk at 2 and 4 years (recommendation 5A). Note.--These recommendations do not apply to lung cancer screening, patients with immunosuppression, or patients with known primary cancer. * Dimensions are average of long and short axes, rounded to the nearest millimeter. Consider all relevant risk factors (see Risk Factors). Report Ordering Provider: Mainor Hamilton FINAL REPORT Dictated: 02/04/2023 9:06 am Ten Patiño DO Signed (Electronic Signature): 02/04/2023 9:06 am Signed by: Ten Patiño DO Transcribed by: MIKIE Technologist: SRF Technical Comments GFR (mL/min/1/73m2) 44 Contrast: Isovue 370 Contrast amount in ml's: 72 Normal [facility] Capillary Glucose POCon - Glucose [Mass/Vol] 271 mg/dL High 55-99 [facility] Comment on above: Result Comment: Ty lester RN/ Performed By: #### 2 [id number] #### [facility] Laboratory [address] [place] [address] Glucose [Mass/Vol] 248 mg/dL High 55-99 [facility] Comment on above: Result Comment: Ty lester RN/ Performed By: #### 2 [id number] #### [facility] Laboratory [address] [place] [address] ED Clinical Summaryon 2022 ED Clinical Summary (Inserted Image. Janae ble to display) [address] [address] ED Clinical Summary Person Information Name: ALTAGRACIA CONWAY [facility] Age: 67 Years : 1955 Sex: Male Language: Argentine PCP: TIKI DOCKERY DO Marital Status: Phone: [phone] Visit Id: Visit Reason: Cough; Shortness of breath; SOB Speciality: Acuity: 1 Enc Type: Observation Med Service: Emergency Arrival: 02/03/2023 18:29:05 Discharge: LOS: 000 06:47 Checkin: 02/03/2023 18:29:05 Checkout: 02/04/2023 01:16:42 Dispo Type: Admitted as IP to this [facility] EVENTS: Event Name Event Status Request Date/Time Start Date/Time Complete Date/Time Arrive Complete 02/03/2023 18:29:05 02/03/2023 18:29:05 02/03/2023 18:29:05 Document Home Meds Request 02/03/2023 18:29:05 Triage Complete 02/03/2023 18:29:05 02/03/2023 18:41:45 02/03/2023 18:41:45 Bed Assign Complete 02/03/2023 18:32:09 02/03/2023 18:32:09 02/03/2023 18:32:09 Dr Exam Complete 02/03/2023 18:32:09 02/03/2023 18:48:45 02/03/2023 18:48:45 RN Exam Complete 02/03/2023 18:32:09 02/03/2023 20:36:50 02/03/2023 20:36:50 EKG Complete 02/03/2023 18:33:14 02/03/2023 18:35:52 Registration Complete 02/03/2023 18:48:45 02/03/2023 19:12:48 02/03/2023 19:12:48 Pending Labs Request 02/03/2023 18:57:37 Lab Inlab 02/03/2023 18:57:37 Meds Admin Complete 02/03/2023 18:57:37 02/03/2023 19:23:55 Patient Care Complete 02/03/2023 18:57:37 02/03/2023 23:35:31 X-Ray Complete 02/03/2023 18:57:37 02/03/2023 19:21:09 02/03/2023 19:48:35 RT Cancel 02/03/2023 18:57:37 02/04/2023 00:54:35 RT Tx/ABG Complete 02/03/2023 18:57:38 02/03/2023 19:27:29 02/03/2023 19:27:29 RT Tx/ABG Complete 02/03/2023 18:57:38 02/03/2023 19:27:25 02/03/2023 19:27:25 Pending Labs Complete 02/03/2023 19:11:20 02/03/2023 19:11:20 02/03/2023 19:26:18 Lab Complete 02/03/2023 19:11:20 02/03/2023 19:11:20 02/03/2023 19:26:18 Reg Complete Request 02/03/2023 19:12:48 Reg Bed Request Complete 02/03/2023 19:12:48 02/03/2023 19:12:48 02/03/2023 19:12:48 Pending Labs Complete 02/03/2023 19:15:00 02/03/2023 19:15:00 02/03/2023 19:15:08 Lab Complete 02/03/2023 19:15:00 02/03/2023 19:15:00 02/03/2023 19:15:08 Consult Request 02/03/2023 19:42:23 Hospitalist Consult Request 02/03/2023 19:42:23 Wet Read Request 02/03/2023 19:48:35 Patient Care Request 02/03/2023 19:50:26 Meds Admin Complete 02/03/2023 20:01:58 02/03/2023 20:21:49 Pending Labs Complete 02/03/2023 20:15:02 02/03/2023 20:15:02 02/03/2023 20:15:02 Dr Exam Complete 02/03/2023 20:21:05 02/03/2023 20:21:05 02/03/2023 20:21:05 Registration Complete 02/03/2023 20:21:05 02/04/2023 00:28:58 02/04/2023 00:28:58 CT Complete 02/03/2023 20:21:36 02/03/2023 21:36:01 02/03/2023 22:13:40 Meds Admin Cancel 02/03/2023 20:22:28 02/04/2023 01:03:37 Pending Labs Complete 02/03/2023 20:25:30 02/03/2023 20:44:07 Lab Complete 02/03/2023 20:25:30 02/03/2023 20:44:07 Urine Collect Complete 02/03/2023 20:25:30 02/03/2023 20:44:07 Pending Labs Inlab 02/03/2023 20:32:07 02/03/2023 20:32:07 Lab Inlab 02/03/2023 20:32:08 02/03/2023 20:32:08 Pending Labs Complete 02/03/2023 22:05:16 02/03/2023 22:05:16 02/03/2023 22:05:16 Meds Admin Complete 02/03/2023 23:37:27 02/03/2023 23:47:56 RT Tx/ABG Complete 02/03/2023 23:37:28 02/03/2023 23:58:48 02/03/2023 23:58:48 RT Tx/ABG Complete 02/03/2023 23:37:28 02/03/2023 23:58:44 02/03/2023 23:58:44 Meds Admin Complete 02/03/2023 23:40:36 02/03/2023 23:47:23 Bed Request Request 02/04/2023 00:26:46 Reg Bed Request Complete 02/04/2023 00:26:46 02/04/2023 00:28:58 02/04/2023 00:28:58 Admit Request 02/04/2023 00:26:46 Patient Care Request 02/04/2023 00:28:59 Patient Care Request 02/04/2023 00:28:59 Patient Care Request 02/04/2023 00:29:00 Patient Care Request 02/04/2023 00:29:00 Patient Care Request 02/04/2023 00:57:09 Meds Admin Request 02/04/2023 00:57:09 RT Request 02/04/2023 00:57:09 RT Tx/ABG Request 02/04/2023 00:57:10 RT Tx/ABG Request 02/04/2023 00:57:10 RT Tx/ABG Request 02/04/2023 00:57:11 RT Tx/ABG Request 02/04/2023 00:57:11 Meds Admin Request 02/04/2023 00:58:01 Patient Care Request 02/04/2023 00:58:01 Meds Admin Request 02/04/2023 00:58:38 Pending Labs Request 02/04/2023 00:59:07 Lab Request 02/04/2023 00:59:07 ADDRESS: [address] [id number] [facility] DOC NOTES: MEDICAL INFORMATION: Prescriptions Given: Medications to Continue with No Changes Other Medications acetaminophen (Tylenol 325 mg Tab) 650 Milligram By Mouth every 6 hours as needed as needed for pain. atorvastatin (Lipitor) 40 Milligram By Mouth every day. busPIRone (busPIRone 10 mg Tab) 3 Tablets By Mouth 3 times a day. hydrochlorothiazide (hydrochlorothiazide 25 mg Tab) 1 Tablets By Mouth every day. Hold this medication until po intake improves. insulin glargine 20 Units Subcutaneous 2 times a day. insulin lispro 0-10 units Subcu (more content not included)... Normal [facility] ED Note-Physicianon 02-05-20 ED Note-Physician Patient was signed o ut to me by the outgoing physician. He has an elevated D-dimer and there is concern for possible pulmonary embolism and at this time he is awaiting any kind of imaging. After review his GFR is still acceptable for a CTA so we will obtain a CT of the chest to definitively evaluate for possible pulmonary embolism. CTA is negative for pulmonary embolism. No thoracic aneurysm or dissection. Subpleural opacities noted in the anterior left and right lung may reflect evidence of chronic interstitial lung disease. No focal consolidation. We gave the patient an additional breathing treatment as well as oral prednisone down here in the ED. While he was still at rest in the bed when we tried him on room air he desaturated down to 89%. With his hypoxia I feel he would benefit from admission for further medical management. Case was discussed the hospitalist on-call who agreed admit the patient. Normal [facility] Comment on above: Result Comment: Elec tronically Signed By: Maionr Hamilton DO\.br\Date and Time Signed: 02/04/23 00:28 EST ED Patient Education Noteon 02-04-2023 ED Patient Education Note Normal [facility] ED Patient Summaryon 023 ED Patient Summary (Inserted Image. Janae ble to display) [place] [id number] Patient Discharge Instructions Person Information Name: ALTAGRACIA CONWAY Age: 67 Years Arrival Date: 02/03/2023 18:29:05 Discharge Diagnosis: 1:Acute hypoxic respiratory failure; 2:Elevated d-dimer; 3:COPD exacerbation; 4:Chronic renal disease, stage III; 5:Type 2 diabetes mellitus; 6:HTN (hypertension); 7:History of pancreatic cancer; 8:Obesity Primary Care Physician: TIKI DOCKERY DO Provider Information Primary Provider: Danielle Vance MD Advanced Crawler Tractor Operator:None The exam and treatment you received in the Emergency Department were for an urgent problem and are not intended as complete care. It is important that you follow up with a doctor, nurse practitioner, or physician?s library services assistant for ongoing care. If your symptoms become worse or you do not improve as expected and you are unable to reach your usual health care provider, you should return to the Emergency Department. We are available 24 hours a day. ALTAGRACIA CONWAY has been given the following list of patient education materials, prescriptions and follow-up instructions: Follow-up Instructions: In the event that this physician does not participate in your insurance network, please consult with your insurance company to find a nearby participating provider. Patient Education Materials: A MESSAGE TO ALL PATIENTS REGARDING OPIOIDS PRESCRIPTION OPIOIDS: WHAT YOU NEED TO KNOW Prescription opioids can be used to help relieve dxsjgpdg-cw-ovqpxc pain and are often prescribed following a surgery or injury, or for certain health conditions. These medications can be an important part of the treatment but also come with serious risks. It is important to work with your healthcare provider to make sure you are getting the safest, most effective care. WHAT ARE THE RISKS AND SIDE EFFECTS OF OPIOID USE? Prescription opioids carry serious risks of addiction and overdose, especially with prolonged use. An opioid overdose, often marked by slowed breathing, can cause sudden . The use of prescription opioids can have a number of side effects as well, even when taken as directed: ? Tolerance?meaning you might need to take more of the medication for the same pain relief ? Physical dependence?meaning you have symptoms of withdrawal when a medication is stopped ? Increased sensitivity to pain ? Constipation ? Nausea, vomiting, and dry mouth ? Sleepiness and dizziness ? Confusion ? Depression ? Low levels of testosterone that can result in lower sex drive, energy, and strength ? Itching and sweating RISKS ARE GREATER WITH: ? History of drug misuse, substance use disorder, or overdose ? Mental health conditions (such as depression or anxiety) ? Sleep apnea ? Older age (65 years and older) ? Avoid alcohol while taking prescription opioids. Also, unless specifically advised by your health care provider, medications to avoid include: ? Benzodiazepines (such as Xanax or Valium) ? Muscle relaxants (such as Soma or Flexeril) ? Hypnotics (such as Ambien or Lunesta) ? Other prescription opioids KNOW YOUR OPTIONS Talk to your health care provider about ways to manage your pain that don?t involve prescription opioids. Some of these options may actually work better and have fewer risks and side effects. Options may include: ? Pain relievers such as acetaminophen, ibuprofen, and naproxen ? Some medication that are also used for depression or seizures ? Physical therapy and exercise ? Cognitive behavioral therapy, a psychological, goal-directed approach, in which patients learn how to modify physical, behavioral, and emotional triggers of pain and stress. IF YOU ARE PRESCRIBED OPIOIDS FOR PAIN: ? Never take opioids in greater amounts or more often than prescribed. ? Follow up with your primary health care provider. o Work together to create a plan on how to manage your pain. o Talk about ways to help manage your pain that don?t involve prescription opioids. o Talk about any and all concerns and side effects. ? Help prevent misuse and abuse o Never sell or share prescription opioids. o Never use another person?s prescription opioids. ? Store prescription opioids in a secure place and out of reach of others (this may include visitors, children, friends, and family). ? Safely dispose of unused prescription opioids: Find your community drug take-back program or your pharmacy mail-back program, or flush them down the toilet, following guidance from the Food and Drug Administration (www.fda.gov/Drugs/Reso urcesForYou). ? Visit www.cdc.gov/drugoverdos e to learn about the risks of opioids abuse and overdose. ? If you believe you may be struggling with addiction, tell your health lead caregiver and ask for guidance or call SAMHSA?S National Helpline at 3-577-971-DCGX. (more content not included)... Normal [facility] [id number] 02-04-2023 HbA1c (Bld) [Mass fraction] 7.9 % High <=5.9 [facility] Comment on above: Performed By: #### 2 [id number] #### [facility] Laboratory [address] [place] [address] Inpatient Patient Summaryon 02-04-2023 Inpatient Patient Summary ALTAGRACIA CONWAY :1955 Visit Date:02/03/2023 Inpatient Discharge Instructions Your Care Team Admitting Physician - Theodora Laurent MD Consulting Physician - Kamini Abraham PA-C, [employer] Reason for Your Visit SOB Your Diagnosis Acute hypoxic respiratory failure Elevated d-dimer COPD exacerbation Chronic renal disease, stage III Type 2 diabetes mellitus HTN (hypertension) History of pancreatic cancer Smoker Obesity Cough Shortness of breath Tests Performed Automated Diff Blood Culture Charcoal -- Results Pending -- BMP BMP BNP Capillary Glucose POC CBC w/ Auto Diff D-Dimer eGFR HgbA1c Procalcitonin PT & PTT Rapid COVID Antigen [place] Respiratory Panel by PCR Troponin 0 Hr. Troponin 3 Hr. Troponin 6 Hr. Troponin 9 Hr. UA With Cult Reflex CTA Chest LE Venous Duplex US Bilateral -- Results Pending -- XR Chest Single View Please visit your patient portal for your results or contact your primary care physician. This Is Your Medications List Misc Prescription (Fetzima 120 mg oral capsule, extended release) acetaminophen (Tylenol 325 mg Tab) albuterol (Ventolin HFA 90 mcg/inh Aerosol-Adpt) amitriptyline amlodipine atorvastatin atorvastatin (Lipitor) busPIRone (busPIRone 10 mg Tab) ergocalciferol (Vitamin D) fluticasone-vilanterol (Breo Ellipta) furosemide hydrochlorothiazide (hydrochlorothiazide 25 mg Tab) insulin aspart insulin degludec insulin glargine insulin lispro lisinopril lorazepam (Ativan 0.5 mg Tab) lorazepam (Ativan 1 mg Tab) losartan (losartan 50 mg Tab) metoprolol (Metoprolol tartrate 25 mg Tab) mirtazapine (mirtazapine 30 mg Tab) pancrelipase pantoprazole (Pantoprazole [address] Tab) polyethylene glycol 3350 (Miralax 3350 17 gram packet) pregabalin (pregabalin 150 mg Cap) tamsulosin (tamsulosin 0.4 mg Cap) Procedure History 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 Discharge Vitals Temperature (Oral) 36.5 ?C Heart Rate (Monitored) 90 Respiratory Rate 18 Blood Pressure 157/61 Height 187.96 cm Weight 105.7 kg BMI 29.92 What to do next Instructions From Your Doctor Event Name Event Result Pharmacy Information Other: [facility] Medications What How Much When Instructions Next Dose Unchanged acetaminophen (Tylenol 325 mg Tab) 650 Milligram By Mouth Every 6 hours as needed for as needed for pain Unchanged albuterol (Ventolin HFA 90 mcg/ inh Aerosol-Adpt) 1 Puffs Inhalation Every 4 hours Unchanged amitriptyline 50 Milligram By Mouth At bedtime Unchanged amlodipine 10 Milligram By Mouth Every day Unchanged atorvastatin 10 Milligram By Mouth Unchanged atorvastatin (Lipitor) 40 Milligram By Mouth Every day Unchanged busPIRone (busPIRone 10 mg Tab) 3 Tablets By Mouth 3 times a day Unchanged ergocalciferol (Vitamin D) 50 Microgram By Mouth Unchanged fluticasone-vilanterol (Breo Ellipta) Unchanged furosemide 20 Milligram By Mouth Every day Unchanged hydrochlorothiazide (hydrochlorothiazide 25 mg Tab) 1 Tablets By Mouth Every day Hold this medication until po intake improves Unchanged insulin aspart See instructions Unchanged insulin degludec See instructions Unchanged insulin glargine 20 Units Subcutaneous 2 times a day Unchanged insulin lispro 0-10 units Subcutaneous Four times a day (before meals and at bedtime) Unchanged lisinopril 10 Milligram By Mouth Unchanged lorazepam (Ativan 0.5 mg Tab) 1 Tablets By Mouth Once a day (in the morning) Unchanged lorazepam (Ativan 1 mg Tab) 1 Tablets By Mouth At bedtime Unchanged losartan (losartan 50 mg Tab) 2 Tablets By Mouth Every day Hold for sbp 110 or less Unchanged metoprolol (Metoprolol tartrate 25 mg Tab) 1 Tablets By Mouth 2 times a day Hold for sbp 110 or less or HR 55 or less Unchanged mirtazapine (mirtazapine 30 mg Tab) 1 Tablets By Mouth Once a day (at bedtime) Unchanged Misc Prescription (Fetzima 120 mg oral capsule, extended release) Every day Unchanged pancrelipase See instructions Unchanged pantoprazole (Pantoprazole [address] Tab) 1 Tablets By Mouth Every day Unchanged polyethylene glycol 3350 (Miralax 3350 17 gram packet) By Mouth Every day Unchanged pregabalin (pregabalin 150 mg Cap) 1 Capsules By Mouth 2 times a day Unchanged tamsulosin (tamsulosin 0.4 mg Cap) 1 Capsules By Mouth Every day Test Results CBC BMP WBC: 9.2 E9/L (02/03/23 19:01:00) Glucose Lvl: 283 mg/dL High (02/04/23 06:00:00) RBC: 4 E12/L Low (02/03/23 19:01:00) BUN: 47 mg/dL High (02/04/23 06:00:00) HGB: 11.5 gm/dL Low (02/03/23 19:01:00) Creatinine: 1.7 mg/dL High (02/04/23 06:00:00) Hct: 34.6 % Low (02/03/23 19:01:00) BUN/Creat Ratio: 28 High (02/04/23 06:00:00) MCV: 86.6 fL (02/03/23 19:01:00) Sodium Lvl: 134 mmol/L Low (02/04/23 06:00:00) MCH: 28.8 pg (02/03/23 19:01:00) Potassium Lvl: 5.7 mmol/L High ( (more content not included)... Normal [facility] Insurance Correspondence Off iceon 02-04-2023 Insurance Correspondence Office [id number]#1.00 TIFF [facility] Insurance Correspondence Office [id number] TIFF [facility] Interdisciplinary Note - Garrison e Manageron 02-04-2023 Interdisciplinary Note - Shear Grinder Operator Helper CRM to room to discuss DC planning. Patient is awake, alert and oriented. Patient is from home alone. He will need transport at DC. Patient verified PCP, home DME and insurance. Patient is here as inpatient, medicare from [facility]. Patient is here for SOB. Patient is assigned to Dr Weber, see notes. Patient has pulmonology consulted. Patient is on oxygen 4.5L/NC this AM. Per Patient he has no home oxygen. Patient will need weaned off or desat at DC. Patient denied needs for DME, or HH at DC. Patient is okay with Paramedicine. Patient DC date TBD. CRM provided contact, white board updated. CRM following [facility] Comment on above: Result Comment: Elec tronically Signed By: Laura Lebron\.br\Date and Time Signed: 02/04/23 11:09 EST Interdisciplinary Note - Soc ial Workeron 02-04-2023 Interdisciplinary Note - Welt Rander This SW responded to a consult on [address] [place] [address] regarding Advance Directives. SW assisted with explanation and completion of documentation. Patient named Reji Martinez (grand daughter) as primary agent with no alternates listed. SW provided the patient with the original AD and am additional copy. A copy was also provided to the [address] [place] [address] cut off saw operator metal to have scanned into the patient chart. Patient denied any further needs at this time. SW will remain available as needed. Normal [facility] Monitor Recordon 02-04-2023 Monitor Record [id number]#1.00 TIFF Normal [facility] Monitor Record [id number]#1.00 TIFF Normal [facility] Monitor Record [id number]#1.00 TIFF Normal [facility] Procalcitoninon 02-04-2023 Procalcitonin [Mass/Vol] 0.090 ng/mL Normal .00-.50 [facility] Comment on above: Result Comment: <0.5 ng/mL Low risk of severe sepsis and/or shock >2.0 ng/mL High risk of severe sepsis and/or shock Concentrations under 0.5 ng/mL do not exclude local infections or systemic infections in their initial stages (e.g.. under six hours from onset of illness). PCT concentrations between 0.5 and 2.0 ng/mL should be interpreted with consideration of the patient's history. In this range, it is recommended to retest PCT within 6 to 24 hours. Performed By: #### 2 [id number] #### [facility] Laboratory [address] [place] [id number] Progress Note-Nurseon 2022 Progress Note-Nurse Pt. at the time of morning assessment told this nurse, the doctor better get his meds ordered correctly or he will leave. He said he is not putting up with this crap like last time he was here and they screwed all his meds up and he didn't get to take the correct meds for a week. [place] messeged the doctor and called patient PCP and got an accurate med list that was put in patient chart. Pt. complained of neuropathy pain in his feet. Dr. Weber was notified and ordered him a one time dose of morphine, which was offered to the patient. Pt stated that will not help this kind of pain and I do not want it. Pt then was overheard at 1600 talking to his family in his room that he was getting very angry that he still didn't have his meds on board and was going to just leave . Family told him to do so and this nurse went in to discuss concerns with patient. Patient said I want my home meds now or I am leaving and going to [facility], I take 10 everyday . Patient was explained that he has received all of his necessary meds and the rest of his home meds would be implemented tomorrow. Patient said that is not good enough, I want them now . Dr. Weber was notified and said let him leave AMA if he wants to. Patient said get me the forms, I am going to [facility] . It was explained to patient that he is on o2 herer and needs it to breath, he stated I ll be fine, ill just go to [facility] tonight instead of tomorrow, any place but here.' Order was received. PT. was given discharge instructions and signs the discharge paperwork and also signed the AMA form. IV was removed, belongings gathered and staff wheeled patient out in wheelchair to familys car. Normal [facility] Progress Note-Physicianon Progress Note-Physician Basic Informatio n 67-year-old male with a medical history of COPD CKD type 2 diabetes hypertension history of pancreatic cancer who was admitted for acute on chronic hypoxemic respiratory failure Assessment/Plan Acute hypoxemic respiratory failure COPD exacerbation Pulmonary nodule Elevated D Dimer Tobacco smoking -CTA chest was negative for PE positive for pulmonary nodule, procal negative, respiratory panel by PCR sent -Etiology likely secondary to continued tobacco smoking -continue w/duo nebs -continue w/Azithromycin x 3 days total -methylprednisolone q8h noted -Mucinex -Nicotine patch and tobacco smoking counseling performed -I/S q1 hr -Flutter valve -Pulmonology Anxiety -May be contributing to above -Resume home medications after med rec -Start Buspar now CKD -Avoid nephrotoxic drugs T2DM -Added glargine -Continue w/sliding scale -Steroids will increase this HTN -No chest pain -Continue w/meds History of pancreatic cancer -Port in chest wall -Continue to follow up w/Oncology Plan: Monitor respiratory status, await PCR panel. Wean steroids Subjective Patient was seen and examined. Complains of some anxiety. Said he has shortness of breath. Said he does continue to smoke cigarettes. Review of Systems Positive for shortness of breath Negative for chest pain lower limb swelling Objective Vitals & Measurements T: 36.6 ?C(Axillary) TMIN: 36.5 ?C(Oral) TMAX: 36.7 ?C(Oral) HR: 87(Monitored) RR: 18 BP: 137/87 SpO2: 96% HT: 187.96 cm WT: 105.7 kg Intake & Output This visit (24 hour periods starting at 07:00 EST) 02/04/23 * 02/03/23 02/02/23 Total Summary Intake mL 0.2 -- -- Output mL -- -- -- Fluid Balance 0.2 -- -- Intake (1) methylPREDNISolone mL 0.2 -- -- Total 0.2 -- -- Output (0) Counts (0) * This column has not completed the indicated time period. Physical Exam General: alert, no acute distress Psychiatric: cooperative, affect appropriate for age Neurological: awake, alert, oriented, speech normal Cardiovascular: no overt murmurs Respiratory: coarse, wheezing Gastrointestinal: soft NT, NG, NR Extremities: no rash Lab Results WBC: 9.2 E9/L (02/03/23 19:01:00) RBC: 4 E12/L Low (02/03/23:01:00) HGB: 11.5 gm/dL Low (02/03/23:01:00) Hct: 34.6 % Low (02/03/23:01:00) MCV: 86.6 fL (02/03/23:01:00) MCH: 28.8 pg (02/03/23:01:00) MCHC: 33.2 gm/dL (02/03/23 19:01:00) RDW: 14.5 % High (02/03/23:01:00) Platelet: 195 E9/L (02/03/23::00) MPV: 8.8 fL (02/03/23::00) Neutro Auto: 56.9 % (02/03/23::00) Lymph Auto: 22.5 % (02/03/23::00) Alfalfa Auto: 7.2 % (02/03/23::00) Eos Auto: 12.7 % High (02/03/23::00) Basophil Auto: 0.7 % (02/03/23::00) Neutro Absolute: 5.2 E9/L (02/03/23::00) Lymph Absolute: 2.1 E9/L (02/03/23::) Alfalfa Absolute: 0.7 E9/L (02/03/23:00) Eos Absolute: 1.2 E9/L High (02/03/23:00) Basophil Absolute: 0.1 E9/L (02/03/23::00) PT: 11.1 second(s) (02/03/23::00) INR: 1 (02/03/23::) PTT: 40.2 second(s) High (02/03/23::00) D-Dimer: 1442 ng/mL FEU Critical (02/03/23::00) Glucose Lvl: 283 mg/dL High (02/04/23 06:00:00) BUN: 47 mg/dL High (02/04/23 06:00:00) Creatinine: 1.7 mg/dL High (02/04/23 06:00:00) eGFR: 44 mL/min/1.73 m2 Low (02/04/23 06:00:00) BUN/Creat Ratio: 28 High (02/04/23 06:00:00) Sodium Lvl: 134 mmol/L Low (02/04/23 06:00:00) Potassium Lvl: 5.7 mmol/L High (02/04/23 06:00:00) Chloride: 108 mmol/L (02/04/23 06:00:00) CO2: 22 mmol/L (02/04/23 06:00:00) AGAP: 10 mEq/L (02/04/23 06:00:00) Calcium Lvl: 9.3 mg/dL (02/04/23 06:00:00) Troponin: 9.8 pg/mL Low (02/04/23 06:00:00) BNP: 21 pg/mL (02/03/23 19:01:00) Procalcitonin: 0.09 ng/mL (02/04/23 06:00:00) Glucose Cap: 248 mg/dL High (02/04/23 07:54:00) POC Device SN: [id number] (02/04/23 07:54:00) POC User ID: [id number] (02/04/23 07:54:00) POC Username: GONZALO JAMES (02/04/23 07:54:00) UA Spec Desc: Clean Catch (02/03/23 20:25:00) UA Color: Yellow2 (02/03/23 20:25:00) UA Clarity: Slightly Cloudy3 Abnormal (02/03/23 20:25:00) UA Spec Grav: 1.020 (02/03/23 20:25:00) UA pH: 6.0 (02/03/23 20:25:00) UA Protein: NEGATIVE1 (02/03/23 20:25:00) UA Glucose: NEGATIVE1 (02/03/23 20:25:00) UA Ketones: NEGATIVE1 (02/03/23 20:25:00) UA Bili: NEGATIVE1 (02/03/23 20:25:00) UA Blood: Trace2 Abnormal (02/03/23 20:25:00) UA Nitrite: NEGATIVE1 (02/03/23 20:25:00) UA Urobilinogen: 0.2 (02/03/23 20:25:00) UA Leuk Est: 1+ Abnormal (02/03/23 20:25:00) UA RBC: 0-3 (02/03/23 20:25:00) UA Squam Epithelial: 0-2 (02/03/23 20:25:00) UA WBC: 16-25 Abnormal (02/03/23 20:25:00) UA Bacteria: Trace2 (02/03/23 20:25:00) UA Amorph Nisha: Present (02/03/23 20:25:00) Rapid COVID Ag: Not Detected (02/03/23 19:01:00) Rapid COV Int NEG Ctl: Pass (02/03/23 19:01:00) Rapid COV Int POS Ctl: Pass (02/03/23 19 (more content not included)... Normal [facility] Comment on above: Result Comment: Elec tronically Signed By: Tia WU, Benoit\.br\Date and Time Signed: 02/04/23 11:07 EST Respiratory Panel by PCRon 1 04-06-2022 Adenovirus DNA ANN+non-probe Ql (Nph) Not detected Normal [facility] Comment on above: Result Comment: Test ing was performed using nucleic acid amplification including Influenza A, Influenza A H1, Influenza A H3, Influenza B, RSV A, RSV B, Adenovirus, Human Metapneumovirus, Parainfluenza 1,2,3, and 4, Rhinovirus, Bordetella parapertussis/bronchiseptica, Bordetella holmesii, and Bordetella pertussis. Performed By: #### 1 [id number] #### [facility] [address] [place] [address] B. parapertussis DNA ANN+probe Ql (Upper resp) Not detected Normal Not Detected [facility] Comment on above: Performed By: #### 1 [id number] #### [facility] [address] [place] [address] B. pertussis DNA ANN+probe Ql (Upper resp) Not detected Normal Not Detected [facility] Comment on above: Performed By: #### 1 [id number] #### [facility] [address] [place] [address] FLUAV H1 RNA ANN+non-probe Ql (Nph) Not detected Normal [facility] Comment on above: Performed By: #### 1 [id number] #### [facility] [address] [place] [address] FLUAV H3 RNA ANN+non-probe Ql (Nph) Not detected Normal [facility] Comment on above: Performed By: #### 1 [id number] #### [facility] [address] [place] [address] FLUAV RNA ANN+non-probe Ql (Nph) Not detected Normal [facility] Comment on above: Performed By: #### 1 [id number] #### [facility] [address] [place] [address] FLUBV RNA ANN+non-probe Ql (Nph) Not detected Normal [facility] Comment on above: Performed By: #### 1 [id number] #### [facility] [address] [place] [address] Human Metapneumovirus Not detected Normal [facility] Comment on above: Result Comment: This test result should be correlated with clinical presentations and medical history by a healthcare provider to determine its clinical significance. Performed By: #### 1 [id number] #### [facility] [address] [place] [address] Parainfluenza virus 1 RNA ANN+non-probe Ql (Nph) Not detected Normal [facility] Comment on above: Performed By: #### 1 [id number] #### [facility] [address] [place] [address] Parainfluenza virus 2 RNA ANN+non-probe Ql (Nph) Not detected Normal [facility] Comment on above: Performed By: #### 1 [id number] #### [facility] [address] [place] [address] Parainfluenza virus 3 RNA ANN+non-probe Ql (Nph) Not detected Normal [facility] Comment on above: Performed By: #### 1 [id number] #### [facility] [address] [place] [address] Parainfluenza virus 4 RNA ANN+non-probe Ql (Nph) Not detected Normal [facility] Comment on above: Performed By: #### 1 [id number] #### [facility] [address] [place] [address] Resp Panel Intrl QC Pass Normal [facility] Comment on above: Performed By: #### 1 [id number] #### [facility] [address] [place] [address] Rhinovirus+Enterovirus RNA ANN+non-probe Ql (Nph) Not detected Normal [facility] Comment on above: Performed By: #### 1 [id number] #### [facility] [address] [place] [address] RSV RNA ANN+non-probe Ql (Nph) Not detected Normal [facility] Comment on above: Performed By: #### 1 [id number] #### [facility] [address] [place] [address] Troponin 6 Hr.on 02-04-2023 Troponin I.cardiac [Mass/Vol] 9.00 pg/mL Low 15.90-38.40 [facility] Comment on above: Result Comment: The 95% CI (Confidence Interval) PPV (Positive Predictive Value) for myocardial infarction in females is 38 pg/mL, in males 51 pg/mL. The results should be used in conjunction with clinical conditions of myocardial infarction. (Access High Sensitivity Troponin I Instructions For Use, [employer], October 2017) Performed By: #### 1 [id number] #### [facility] [address] [place] [address] Troponin 9 Hr.on 02-04-2023 Troponin I.cardiac [Mass/Vol] 9.80 pg/mL Low 15.90-38.40 [facility] Comment on above: Order Comment: line packet sent @ 9690. 3s aware, [id number] Result Comment: The 95% CI (Confidence Interval) PPV (Positive Predictive Value) for myocardial infarction in females is 38 pg/mL, in males 51 pg/mL. The results should be used in conjunction with clinical conditions of myocardial infarction. (Access High Sensitivity Troponin I Instructions For Use, [employer], October 2017) Performed By: #### 1 [id number] #### [facility] [address] [place] [address] XR Chest Single Viewon 02-04 XR Chest Single View Exam Date/Time: 02/03/2023 19:48 EST Reason for Exam: Difficulty breathing Report IMPRESSION: NO RADIOGRAPHIC EVIDENCE OF ACUTE INTRATHORACIC PROCESS. EXAM: XR Chest Single View History: Shortness of breath Technique: Portable AP view of the chest. Comparison: CT chest 03/18/2022 Findings: Right-sided central port remains. The cardiomediastinal silhouette is within normal limits. No pneumothorax, pleural effusion, or consolidation. No acute osseous abnormality. Ordering Provider: Danielle Vance FINAL REPORT Dictated: 02/04/2023 9:43 am Ten Patiño DO Signed (Electronic Signature): 02/04/2023 9:43 am Signed by: Ten Patiño DO Transcribed by: MIKIE Technologist: ISABELL Technical Comments Radiation Dose: Ka,r in mGy = na DAP = na Normal [facility] eGFRon 02-04-2023 GFR/1.73 sq M.predicted among non-blacks MDRD (S/P/Bld) [Vol rate/Area] 44 mL/min/1.73 m2 Low >=59 [facility] Comment on above: Order Comment: Order added by Discern Expert. Result Comment: Manager Labor Delivery amy kidney disease could be indicated at eGFR's of less than 60 mL/min/1.73m2. Kidney failure is indicated at less than 15 mL/min/1.73m2. Performed By: #### 2 [id number] #### [facility] [address] [place] [address] Auto Diffon 02-03-2023 Basophils/100 WBC (Bld) 0.7 % Normal 0.0-2.0 [facility] Comment on above: Order Comment: Order Added by Discern Expert. Performed By: #### 2 [id number] #### [facility] [address] [place] [address] Basophils/Leukocytes Auto (Bld) [Pure # fraction] 0.1 E9/L Normal 0.0-0.2 [facility] Comment on above: Order Comment: Order Added by Liane Expert. Performed By: #### 2 [id number] #### [facility] [address] [place] [address] Eosinophils/100 WBC (Bld) 12.7 % High 0.0-8.0 [facility] Comment on above: Order Comment: Order Added by Discern Expert. Performed By: #### 2 [id number] #### [facility] [address] [place] [address] Eosinophils/Leukocytes Auto (Bld) [Pure # fraction] 1.2 E9/L High 0.0-0.5 [facility] Comment on above: Order Comment: Order Added by Discern Expert. Performed By: #### 2 [id number] #### [facility] [address] [place] [address] Lymphocytes/100 WBC (Bld) 22.5 % Normal 14.0-50.0 [facility] Comment on above: Order Comment: Order Added by Discern Expert. Performed By: #### 2 [id number] #### [facility] [address] [place] [address] Lymphocytes/Leukocytes Auto (Bld) [Pure # fraction] 2.1 E9/L Normal 1.0-4.0 [facility] Comment on above: Order Comment: Order Added by Discern Expert. Performed By: #### 2 [id number] #### [facility] [address] [place] [address] Monocytes/100 WBC (Bld) 7.2 % Normal 4.0-14.0 [facility] Comment on above: Order Comment: Order Added by Discern Expert. Performed By: #### 2 [id number] #### [facility] [address] [place] [address] Monocytes/Leukocytes Auto (Bld) [Pure # fraction] 0.7 E9/L Normal 0.2-1.0 [facility] Comment on above: Order Comment: Order Added by Discern Expert. Performed By: #### 2 [id number] #### [facility] [address] [place] [address] Neutrophils/100 WBC (Bld) 56.9 % Normal 36.0-75.0 [facility] Comment on above: Order Comment: Order Added by Discern Expert. Performed By: #### 2 [id number] #### [facility] [address] [place] [address] Neutrophils/Leukocytes Auto (Bld) [Pure # fraction] 5.2 E9/L Normal 2.0-7.5 [facility] Comment on above: Order Comment: Order Added by Discern Expert. Performed By: #### 2 [id number] #### [facility] [address] [place] [address] BMPon 02-03-2023 Creatinine [Mass/Vol] 1.7 mg/dL High 0.5-1.3 [facility] Comment on above: Performed By: #### 2 [id number] #### [facility] [address] [place] [address] Urea nitrogen [Mass/Vol] 55 mg/dL High 5-21 [facility] Comment on above: Performed By: #### 2 [id number] #### [facility] [address] [place] [address] Urea nitrogen/Creatinine [Mass ratio] 32 No Units High 10-20 [facility] Comment on above: Performed By: #### 2 [id number] #### [facility] [address] [place] [address] Anion gap [Moles/Vol] 10 mmol/L Normal 6-16 [facility] Comment on above: Performed By: #### 2 [id number] #### [facility] [address] [place] [address] Calcium [Mass/Vol] 9.4 mg/dL Normal 8.9-11.1 [facility] Comment on above: Performed By: #### 2 [id number] #### [facility] [address] [place] [address] Chloride [Moles/Vol] 107 mmol/L Normal 101-111 [facility] Comment on above: Performed By: #### 2 [id number] #### [facility] [address] [place] [address] CO2 [Moles/Vol] 23 mmol/L Normal 21-31 [facility] Comment on above: Performed By: #### 2 [id number] #### [facility] [address] [place] [address] Glucose [Mass/Vol] 170 mg/dL Normal 55-199 [facility] Comment on above: Result Comment: If t his glucose result represents a fasting glucose, interpretation should refer to the following reference range: 55-99 mg/dL Performed By: #### 2 [id number] #### [facility] [address] [place] [address] Potassium [Moles/Vol] 5.2 mmol/L Normal 3.5-5.3 [facility] Comment on above: Performed By: #### 2 [id number] #### [facility] [address] [place] [address] Sodium [Moles/Vol] 135 mmol/L Normal 135-145 [facility] Comment on above: Performed By: #### 2 [id number] #### [facility] [address] [place] [address] BNPon 02-03-2023 Natriuretic peptide B (Bld) [Mass/Vol] 21 pg/mL Normal 5-80 [facility] Comment on above: Performed By: #### 2 [id number] #### [facility] [address] [place] [address] CBC w/ Auto Diffon Erythrocyte distribution width (RBC) [Ratio] 14.5 % High 10.9-14.2 [facility] Comment on above: Performed By: #### 2 [id number] #### [facility] [address] [place] [address] Hematocrit (Bld) [Volume fraction] 34.6 % Low 37.7-49.0 [facility] Comment on above: Performed By: #### 2 [id number] #### [facility] [address] [place] [address] Hemoglobin (Bld) [Mass/Vol] 11.5 g/dL Low 13.5-17.5 [facility] Comment on above: Performed By: #### 2 [id number] #### [facility] [address] [place] [address] MCH (RBC) [Entitic mass] 28.8 pg Normal 27.0-34.0 [facility] Comment on above: Performed By: #### 2 [id number] #### [facility] [address] [place] [address] MCHC (RBC) [Mass/Vol] 33.2 g/dL Normal 31.4-36.0 [facility] Comment on above: Performed By: #### 2 [id number] #### [facility] [address] [place] [address] MCV (RBC) [Entitic vol] 86.6 fL Normal 80.0-100.0 [facility] Comment on above: Performed By: #### 2 [id number] #### [facility] [address] [place] [address] Platelet mean volume (Bld) [Entitic vol] 8.8 fL Normal 6.4-10.8 [facility] Comment on above: Performed By: #### 2 [id number] #### [facility] [address] [place] [address] Platelets (Bld) [#/Vol] 195.0 E9/L Normal 150.0-500.0 [facility] Comment on above: Performed By: #### 2 [id number] #### [facility] [address] [place] [address] RBC (Bld) [#/Vol] 4.0 E12/L Low 4.3-5.9 [facility] Comment on above: Performed By: #### 2 [id number] #### [facility] [address] [place] [address] WBC corrected for nucl RBC Auto (Bld) [#/Vol] 9.2 E9/L Normal 4.0-11.0 [facility] Comment on above: Performed By: #### 2 [id number] #### [facility] [address] [place] [address] Capillary Glucose POCon 11-2 3 Glucose [Mass/Vol] 157 mg/dL High 55-99 [facility] Comment on above: Performed By: #### 2 [id number] #### [facility] [address] [place] [address] Consent for Treatmenton 01-10 Consent for Treatment [id number] IFF Normal [facility] D-Dimeron 02-03-2023 Fibrin D-dimer FEU (PPP) [Mass/Vol] 1442 [id number] Abnormal 215-500 [facility] Comment on above: Result Comment: Resu lts Called To ER/Aspen Arita By TLP And Read Back For Confirmation On 02/03/2023 19:30:44 EST. Results Verified By Repeat Analysis This assay is intended for use as an aid in the diagnosis of DVT or PE. These conditions cannot be excluded with certainty solely on the basis of a D-dimer concentration being within the reference range This D-Dimer assay may be used in conjunction with a non-high clinical pretest probability assessment to exclude deep-vein thrombosis(DVT). For exclusion of venous thrombosis or pulmonary embolism the analyte D-Dimer should not be used as an aid in patients with: Therapeutic dose anticoagulant therapy for >24 hours Fibrinolytic therapy within previous 7 days Trauma or surgery within previous 4 weeks Disseminated malignacies Aortic aneurysm Sepsis, severe infections, pneumonia, severe skin infections Liver cirrhosis Performed By: #### 2 [id number] #### [facility] [address] [place] [address] ED Note-Nursingon 02-03-2023 ED Note-Nursing at this time attempt ing to wean off o2 will reevaluate Normal [facility] Monitor Recordon 02-03-2023 Monitor Record [id number]#1.00 TIFF Normal [facility] PT & PTTon 02-03-2023 aPTT Coag (PPP) [Time] 40.2 second(s) High 25.1-36.5 [facility] Comment on above: Result Comment: Para meter 15 days - 4 weeks 1 - 5 months 6 - 11 months 1 - 5 years 6 - 10 years 11 - 17 years PTT Mean: 35.4 (27.6-45.6) Mean: 33.5 (24.8-40.7) Mean: 32.4 (25.1-40.7) Mean: 31.6 (24.0-39.2) Mean: 31.6 (26.9-38.7) Mean: 31.0 (24.6-38.4) Pediatric Reference ranges were obtained from a study by chucky Obrien prepared from 1437 samples obtained at 7 different centers using the same coagulation reagent and instrumentation as [facility]. Currently there are no coagulation studies available worldwide for children to 14 days, and no normal ranges. Heparin therapeutic range (represented by Anti-Factor Xa activity of 0.2 - 0.4 U/mL) corresponds to PTT of 56.6 - 109.0 sec. Performed By: #### 2 [id number] #### [facility] [address] [place] [address] INR Coag (PPP) [Relative time] 1.0 {INR} Invalid Interpretation Code [facility] Comment on above: Result Comment: INR results are specifically intended to assess patients stabilized on long-term Anticoagulation therapy suggested INR?s ?Less Intensive Anticoagulation? 2.0 ? 3.0 Conventional Range 3.0 ? 4.5 Performed By: #### 2 [id number] #### [facility] [address] [place] [address] PT Coag (PPP) [Time] 11.1 second(s) Normal 9.4-12.5 [facility] Comment on above: Result Comment: 15 d ays - 4 weeks 1 - 5 months 6 -11 months 1 ? 5 years 6 ? 10 years 11 -17 years Mean: 11.2 (9.5 ? 12.6) Mean: 11.0 (9.7 ? 12.8) Mean: 11.0 (9.8 ? 13.0) Mean: 11.3 (9.9 ? 13.4) Mean: 11.7 (10.0 ? 14.6) Mean: 11.8 (10.0 - 14.1) Pediatric Reference ranges were obtained from a study by [place], et al. prepared from 1437 samples obtained at 7 different centers using the same coagulation reagent and instrumentation as [facility]. Currently there are no coagulation studies available worldwide for children to 14 days, and no normal ranges. Performed By: #### 2 [id number] #### [facility] [address] [place] [address] Pre-Arrival Noteon 3 Pre-Arrival Note Pre-Arrival Summary Name: , NCBRENDA Current Date: 02/03/2023 18:33:26 EST Gender: Male Date of : Age: 67 Pre-Arrival Type: EMS ETA: 02/03/2023 18:50:00 EST Primary Care Physician: Presenting Problem: SOB Pre-Arrival User: Cheli Alves RN Referring Source: Location: [place] Completion Date/Time: 02/03/2023 18:18:[address] [facility] Emergency Department Pre-Hospital Report Form Vital Signs: BP- 157/76, Pulse- 90. RR-23, SPO2- 92% on RA Pre-Hospital Report: Treatment in Route: NEb Response to Treatment: Misc. Issues: Normal [facility] RAD - Preliminary Cat Scan R eporton 02-03-2023 RAD - Preliminary Cat Scan Report [id number]#[id number] TIFF Normal [facility] Rapid COVID Antigen ([facility])on 02-03-2023 Rapid COV Int NEG Ctl Pass Normal [facility] Comment on above: Performed By: #### 2 [id number] #### [facility] [address] [place] [address] Rapid COV Int POS Ctl Pass Normal [facility] Comment on above: Performed By: #### 2 [id number] #### [facility] [address] [place] [address] SARS-CoV+SARS-CoV-2 (COVID-19) Ag IA.rapid Ql (Resp) Not detected Normal Not Detected [facility] Comment on above: Result Comment: The [employer]? System for Rapid Detection of SARS-CoV-2 is a chromatographic digital immunoassay intended for the direct and qualitative detection of SARS-CoV-2 nucleocapsid antigens in nasal swabs from individuals who are suspected of COVID-19 by their healthcare provider within the first five days of the onset of symptoms. Negative results should be treated as presumptive, do not rule out SARS-CoV-2 infection and should not be used as the sole basis for treatment or patient management decisions, including infection control decisions. Negative results should be considered in the context of a patient?s recent exposures, history and the presence of clinical signs and symptoms consistent with COVID-19, and confirmed with a molecular assay, if necessary, for patient management. For in vitro diagnostic use. In the [place], only for use under an Emergency Use Authorization. In the [place], this test has not been FDA cleared or approved; this test has been authorized by FDA under an EUA for use by authorized laboratories; use by laboratories certified under the CLIA, 42 U.S.C. ?263a, that meet requirements to perform moderate, high, or waived complexity tests and at the Point of Care (POC), i.e., in patient care settings operating under a CLIA Certificate of Waiver, Certificate of Compliance, or Certificate of Accreditation. This test has been authorized only for the detection of proteins from SARS-CoV-2, not for any other viruses or pathogens; and, in the [facility], this test is only authorized for the duration of the declaration that circumstances exist justifying the authorization of emergency use of in vitro diagnostics for detection and/or diagnosis of the virus that causes COVID-19 under Section 564(b)(1) of the Act, 21 U.S.C. ? 360bbb-3(b)(1), unless the authorization is terminated or revoked sooner. Performed By: #### 2 [id number] #### [facility] [address] [place] [address] Troponin 0 Hr.on 02-03-2023 Troponin I.cardiac [Mass/Vol] 7.80 pg/mL Low 15.90-38.40 [facility] Comment on above: Result Comment: The 95% CI (Confidence Interval) PPV (Positive Predictive Value) for myocardial infarction in females is 38 pg/mL, in males 51 pg/mL. The results should be used in conjunction with clinical conditions of myocardial infarction. (Access High Sensitivity Troponin I Instructions For Use, [employer], October 2017) Performed By: #### 2 [id number] #### [facility] [address] [place] [address] Troponin 3 Hr.on 02-03-2023 Troponin I.cardiac [Mass/Vol] 9.10 pg/mL Low 15.90-38.40 [facility] Comment on above: Result Comment: The 95% CI (Confidence Interval) PPV (Positive Predictive Value) for myocardial infarction in females is 38 pg/mL, in males 51 pg/mL. The results should be used in conjunction with clinical conditions of myocardial infarction. (Access High Sensitivity Troponin I Instructions For Use, [employer], October 2017) Performed By: #### 1 [id number] #### [facility] [address] [place] [address] UA With Cult Reflexon 2022 Color (U) YELLOW Normal Yellow [facility] Comment on above: Performed By: #### 1 [id number] #### [facility] [address] [place] [address] Glucose (U) [Mass/Vol] Negative Normal Negative [facility] Comment on above: Performed By: #### 1 [id number] #### [facility] [address] [place] [address] Ketones Ql (U) Negative Normal Negative [facility] Comment on above: Performed By: #### 1 [id number] #### [facility] [address] [place] [address] UA Blood TRACE Abnormal Negative [facility] Comment on above: Performed By: #### 1 [id number] #### [facility] [address] [place] [address] UA Amorph Nisha Present Normal [facility] Comment on above: Performed By: #### 1 [id number] #### [facility] [address] [place] [address] UA Bacteria TRACE Normal Trace [facility] Comment on above: Performed By: #### 1 [id number] #### [facility] [address] [place] [address] UA Clarity SL CLOUDY Abnormal Clear [facility] Comment on above: Performed By: #### 1 [id number] #### [facility] [address] [place] [address] UA Leuk Est 1+ Abnormal Negative [facility] Comment on above: Performed By: #### 1 [id number] #### [facility] [address] [place] [address] UA Nitrite Negative Normal Negative [facility] Comment on above: Performed By: #### 1 [id number] #### [facility] [address] [place] [address] UA pH 6.0 Invalid Interpretation Code 5.0-9.0 [facility] Comment on above: Performed By: #### 1 [id number] #### [facility] [address] [place] [address] UA Protein Negative Normal Negative [facility] Comment on above: Performed By: #### 1 [id number] #### [facility] [address] [place] [address] UA RBC 0-3 Normal 0-3 [facility] Comment on above: Performed By: #### 1 [id number] #### [facility] [address] [place] [address] UA Spec Desc Clean Catch Normal [facility] Comment on above: Performed By: #### 1 [id number] #### [facility] [address] [place] [address] UA Spec Grav 1.020 Invalid Interpretation Code 1.005-1.030 [facility] Comment on above: Performed By: #### 1 [id number] #### [facility] [address] [place] [address] UA Squam Epithelial 0-2 Normal 0-2 [facility] Comment on above: Performed By: #### 1 [id number] #### [facility] [address] [place] [address] UA Urobilinogen 0.2 EU/dL Normal 0.0-1.0 [facility] Comment on above: Performed By: #### 1 [id number] #### [facility] [address] [place] [address] UA WBC 16-25 Abnormal 0-5 [facility] Comment on above: Performed By: #### 1 [id number] #### [facility] [address] [place] [address] Urobilinogen (U) [Mass/Vol] Negative Normal Negative [facility] Comment on above: Performed By: #### 1 [id number] #### [facility] [address] [place] [address] eGFRon 02-03-2023 GFR/1.73 sq M.predicted among non-blacks MDRD (S/P/Bld) [Vol rate/Area] 44 mL/min/1.73 m2 Low >=59 [facility] Comment on above: Order Comment: Order added by Discern Expert. Result Comment: Manager Labor Delivery amy kidney disease could be indicated at eGFR's of less than 60 mL/min/1.73m2. Kidney failure is indicated at less than 15 mL/min/1.73m2. Performed By: #### 2 [id number] #### [facility] [address] [place] [address] CNOVon 01-07-2023 CNOV Office Visit (PAINLN ) ALTAGRACIA CONWAY ([id number]) 1955 M [facility] Date Time Provider Department 01/07/23 12:00 PM HILL, CHELSEY L PAINLN During your visit today, we recorded the following information about you: Chelsey Vann APRN.CNP 01/07/2023 4:14 PM Signed SCS assessed by [employer] rep Chelsey Vann APRN.CNP Allergies As of Date: 01/07/2023 Noted Allergy Reaction POLLEN 01/22/2002 Comments: runny itchy eyes and nose Date Reviewed: 11/20/2022 Reviewed by: Paola Ruff OCCA - Fully Assessed Primary Visit Diagnosis:APPOINTMENT CANCELLED Prescriptions as of 02/06/2023 - insulin lispro protamin/lispro (HUMALOG MIX 50-50 KWIKPEN SUBCUTANEOUS) Inject 34 Units subcutaneously DAILY (6 AM). - insulin degludec (TRESIBA FLEXTOUCH U-100) 100 unit/mL (3 mL) injection pen 34 Applicators by abdominal subcutaneous route once daily. - blood-glucose sensor (DEXCOM G7 SENSOR MISC) 1 Each. - insulin aspart U-100 (NOVOLOG FLEXPEN U-100 INSULIN) 100 unit/mL (3 mL) 60 units in morning, 60 units for lunch, and sliding scale for dinner - amlodipine besylate (AMLODIPINE ORAL) Take 10 mg by mouth once daily. - levomilnacipran (FETZIMA) 120 mg ER capsule Take 160 mg by mouth once daily. - tamsulosin (FLOMAX) 0.4 mg Take 0.4 mg by mouth once daily. - furosemide (LASIX) 20 mg tablet Take 20 mg by mouth once daily. - mirtazapine (REMERON) 45 mg tablet Take 45 mg by mouth daily at bedtime. - pregabalin (LYRICA) 150 mg capsule Take 150 mg by mouth. Weaning off medication - CREON 36,000-114,000- 180,000 unit delayed release capsule Take 2 capsules by mouth three times daily. - budesonide-formoterol (SYMBICORT) 160-4.5 mcg/actuation inhaler Inhale 2 Puffs as instructed twice daily. - albuterol HFA (PROVENTIL HFA, VENTOLIN HFA) 90 mcg/actuation inhaler Inhale 2 Puffs as instructed every 4 hours as needed for Wheezing/Shortness of Breath. - lisinopril(PRINIVIL 20 MG TAB) Take one(1) tablet daily. - atorvastatin calcium(LIPITOR 10 MG TAB) Take one(1) tablet daily. - lorazepam(ATIVAN 1 MG TAB) Take by mouth. 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, T*08/13/2022 Bilateral foot pain [M79.671, M79.672] 08/13/2022 Bilateral hand pain [M79.641, M79.642] 08/13/2022 Recurrent major depression in remission (HCC) [*09/07/2022 History of amputation of right great toe (HCC) *09/07/2022 Hypertension [I10] 10/18/2022 Hyperlipidemia [E78.5] 10/18/2022 Current smoker [F17.200] 10/18/2022 Obesity (BMI 30-39.9) [E66.9] 10/18/2022 Malignant neoplasm of pancreas (HCC) [C25.9] 10/19/2022 Stage 3 chronic kidney disease (HCC) [N18.30] 10/19/2022 Chronic obstructive pulmonary disease (HCC) [J4*10/19/2022 Encounter Status:Closed by CHELSEY VANN on 01/07/23 [facility] Tae 01-03-2023 MATTHEW Telephone (PAINLN) ALTAGRACIA CONWAY ([id number]) 1955 M [facility] Date Time Provider Department 01/03/23 JORDAN ORTEGA During your visit today, we recorded the following information about you: Kristen Templeton LPN 01/03/2023 11:51 AM Signed Call placed to pt, no answer, left VM that he has been added to [place] scheduled on 01/07/2023 for SCS adjustment. Left VM if this appt does not work, to call office to re-schedule. If pt calls back, please transfer to ext [phone], LN PMD, Crista Rodriguezoraarley Pitts, VASCULAR NURSE 01/03/2023 1:14 PM Signed Spoke with pt, confirmed appt on 01/07/2023 @ [address] in [address] office for a SCS adjustment. 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 Email sent to [facility] with appt info. Allergies As of Date: 01/03/2023 Noted Allergy Reaction POLLEN 01/22/2002 Comments: runny itchy eyes and nose Date Reviewed: 11/20/2022 Reviewed by: Paola Ruff OCCA - Fully Assessed Reason for Visit: Appointment [186] Prescriptions as of 01/03/2023 - insulin lispro protamin/lispro (HUMALOG MIX 50-50 KWIKPEN SUBCUTANEOUS) Inject 34 Units subcutaneously DAILY (6 AM). - insulin degludec (TRESIBA FLEXTOUCH U-100) 100 unit/mL (3 mL) injection pen 34 Applicators by abdominal subcutaneous route once daily. - blood-glucose sensor (DEXCOM G7 SENSOR MISC) 1 Each. - insulin aspart U-100 (NOVOLOG FLEXPEN U-100 INSULIN) 100 unit/mL (3 mL) 60 units in morning, 60 units for lunch, and sliding scale for dinner - amlodipine besylate (AMLODIPINE ORAL) Take 10 mg by mouth once daily. - levomilnacipran (FETZIMA) 120 mg ER capsule Take 160 mg by mouth once daily. - tamsulosin (FLOMAX) 0.4 mg Take 0.4 mg by mouth once daily. - furosemide (LASIX) 20 mg tablet Take 20 mg by mouth once daily. - mirtazapine (REMERON) 45 mg tablet Take 45 mg by mouth daily at bedtime. - pregabalin (LYRICA) 150 mg capsule Take 150 mg by mouth. Weaning off medication - CREON 36,000-114,000- 180,000 unit delayed release capsule Take 2 capsules by mouth three times daily. - budesonide-formoterol (SYMBICORT) 160-4.5 mcg/actuation inhaler Inhale 2 Puffs as instructed twice daily. - albuterol HFA (PROVENTIL HFA, VENTOLIN HFA) 90 mcg/actuation inhaler Inhale 2 Puffs as instructed every 4 hours as needed for Wheezing/Shortness of Breath. - lisinopril(PRINIVIL 20 MG TAB) Take one(1) tablet daily. - atorvastatin calcium(LIPITOR 10 MG TAB) Take one(1) tablet daily. - lorazepam(ATIVAN 1 MG TAB) Take by mouth. 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) [*09/07/2022 History of amputation of right great toe (HCC) *09/07/2022 Hypertension [I10] 10/18/2022 Hyperlipidemia [E78.5] 10/18/2022 Current smoker [F17.200] 10/18/2022 Obesity (BMI 30-39.9) [E66.9] 10/18/2022 Malignant neoplasm of pancreas (HCC) [C25.9] 10/19/2022 Stage 3 chronic kidney disease (HCC) [N18.30] 10/19/2022 Chronic obstructive pulmonary disease (HCC) [J4*10/19/2022 Encounter Status:Closed by KRISTEN TEMPLETON on 01/03/23 Normal [facility] [place] 12-11-2022 Parathyrin.intact [Mass/Vol] 42 pg/mL Invalid Interpretation Code 15-65 [facility] Comment on above: Result Comment: Perf ormed at: [facility] [address] [id number] PhD Miriam Sam Performed By: #### 1 [id number] #### [facility] [address] [place] [address] CBC w/Indiceson 12-10-2022 Erythrocyte distribution width (RBC) [Ratio] 14.0 % Normal 10.9-14.2 [facility] Comment on above: Performed By: #### 1 [id number] #### [facility] [address] [place] [address] Hematocrit (Bld) [Volume fraction] 34.5 % Low 37.7-49.0 [facility] Comment on above: Performed By: #### 1 [id number] #### [facility] [address] [place] [address] Hemoglobin (Bld) [Mass/Vol] 11.7 g/dL Low 13.5-17.5 [facility] Comment on above: Performed By: #### 1 [id number] #### [facility] [address] [place] [address] MCH (RBC) [Entitic mass] 29.1 pg Normal 27.0-34.0 [facility] Comment on above: Performed By: #### 1 [id number] #### [facility] [address] [place] [address] MCHC (RBC) [Mass/Vol] 33.9 g/dL Normal 31.4-36.0 [facility] Comment on above: Performed By: #### 1 [id number] #### [facility] [address] [place] [address] MCV (RBC) [Entitic vol] 85.6 fL Normal 80.0-100.0 [facility] Comment on above: Performed By: #### 1 [id number] #### [facility] [address] [place] [address] Platelet mean volume (Bld) [Entitic vol] 8.3 fL Normal 6.4-10.8 [facility] Comment on above: Performed By: #### 1 [id number] #### [facility] [address] [place] [address] Platelets (Bld) [#/Vol] 223.0 E9/L Normal 150.0-500.0 [facility] Comment on above: Performed By: #### 1 [id number] #### [facility] [address] [place] [address] RBC (Bld) [#/Vol] 4.0 E12/L Low 4.3-5.9 [facility] Comment on above: Performed By: #### 1 [id number] #### [facility] [address] [place] [address] WBC corrected for nucl RBC Auto (Bld) [#/Vol] 8.7 E9/L Normal 4.0-11.0 [facility] Comment on above: Performed By: #### 1 [id number] #### [facility] [address] [place] [address] CHEMISTRYOrdered By: SYSTEM SYSTEM on 12-10-2022 25-hydroxyvitamin D3 [Mass/Vol] 43.2 ng/mL Normal 30.0 - 100.0 ng/mL [facility] Comment on above: Interpretive Data: Vitamin D deficiency has been defined as a level of serum 25-OH vitamin D less than 20 ng/mL (1,2) by the [place] of [employer] and an Endocrine Society practice guideline. The Endocrine Society further defined vitamin D insufficiency as a level between 21 and 29 ng/mL (2). 1. IOM ([place] of Medicine). 2010. Dietary reference intakes for calcium and D. [place]: The National Academies Press. 2. Keegan MF, Clarence NC, Marika THOMAS, et al. Evaluation, treatment, and prevention of vitamin D deficiency: an Endocrine Society clinical practice guideline. JCEM. 2010; 96 (7):1911-30. Albumin [Mass/Vol] 4.4 g/dL Normal 3.3 - 5.0 gm/dL [facility] Anion gap [Moles/Vol] 12 mmol/L Normal 6 - 16 mEq/L [facility] Calcium [Mass/Vol] 9.8 mg/dL Normal 8.9 - 11. 1 mg/dL [facility] Chloride [Moles/Vol] 109 mmol/L Normal 101 - 1 11 mmol/L [facility] CO2 [Moles/Vol] 22 mmol/L Normal 21 - 31 mmol/L [facility] Creatinine [Mass/Vol] 1.7 mg/dL High 0.5 - 1.3 mg/dL [facility] GFR/1.73 sq M.predicted among non-blacks MDRD (S/P/Bld) [Vol rate/Area] 44 mL/min/1.73 m2 Low >=59mL/min/1 .73 m2 [facility] Chem S Comment on above: Interpretive Data: C hronic kidney disease could be indicated at eGFR's of less than 60 mL/min/1.73m2. Kidney failure is indicated at less than 15 mL/min/1.73m2. Glucose [Mass/Vol] 229 mg/dL High 55 - 199 mg/dL [facility] Comment on above: Interpretive Data: I f this glucose result represents a fasting glucose, interpretation should refer to the following reference range: 55-99 mg/dL Magnesium [Mass/Vol] 2.2 mg/dL Normal 1.3 - 2 .4 mg/dL [facility] Phosphate [Mass/Vol] 3.0 mg/dL Normal 1.9 - 4 .6 mg/dL [facility] Potassium [Moles/Vol] 5.3 mmol/L Normal 3.5 - 5.3 mmol/L [facility] Sodium [Moles/Vol] 138 mmol/L Normal 135 - 145 mmol/L [facility] Urate [Mass/Vol] 6.4 mg/dL Normal 2.2 - 7.4 mg/dL [facility] Urea nitrogen [Mass/Vol] 55 mg/dL High 5 - 21 mg/dL [facility] Urea nitrogen/Creatinine [Mass ratio] 32 mg/mg High 10 - 20 [facility] CHEMISTRYOrdered By: Edel jasso on 12-10-2022 Albumin Elph (U) [Mass fraction] 17.5 mg/dL Invalid Interpretation Code [facility] Comment on above: Interpretive Data: T felix reference range and other method performance specifications have not been established for this test; results should be integrated into the clinical context for interpretation. Creatinine (U) [Mass/Vol] 85.4 mg/dL Invalid Interpretation Code [facility] Comment on above: Interpretive Data: T he reference range and other method performance specifications have not been established for this test; results should be integrated into the clinical context for interpretation. U Prot/Creat Ratio 204.90 mg/gm Cr High 0.00 - 200.00 mg/gm Cr [facility] Consent for Treatmenton Consent for Treatment [id number] D:127 Normal [facility] HEMATOLOGYOrdered By: Mary Landers on 12-10-2022 Erythrocyte distribution width (RBC) [Ratio] 14.0 % Normal 10.9 - 14.2 % [facility] Hematocrit (Bld) [Volume fraction] 34.5 % Low 37.7 - 49.0 % [facility]eAutoSS Hemoglobin (Bld) [Mass/Vol] 11.7 g/dL Low 13.5 - 17.5 gm/dL [facility]eAutoSS MCH (RBC) [Entitic mass] 29.1 pg Normal 27.0 - 34.0 pg [facility]eAutoSS MCHC (RBC) [Mass/Vol] 33.9 g/dL Normal 31.4 - 36.0 gm/dL [facility]eAutoSS MCV (RBC) [Entitic vol] 85.6 fL Normal 80.0 - 100.0 fL [facility]eAutoSS Platelet mean volume (Bld) [Entitic vol] 8.3 fL Normal 6.4 - 10.8 fL [facility]eAutoSS Platelets (Bld) [#/Vol] 223.0 E9/L Normal 150. 0 - 500.0 E9/L [facility]eAutoSS RBC (Bld) [#/Vol] 4.0 E12/L Low 4.3 - 5.9 E12/L [facility]eAutoSS WBC corrected for nucl RBC Auto (Bld) [#/Vol] 8.7 E9/L Normal 4.0 - 11.0 E9/L [facility]eAutoSS Magnesiumon 12-10-2022 Magnesium [Mass/Vol] 2.2 mg/dL Normal 1.3-2.4 [facility] Comment on above: Performed By: #### 1 [id number] #### [facility] [address] [place] [address] Physician Orderon 12-10-2022 Physician Order [id number] 0CD:127 Normal [facility] Renal Panelon 12-10-2022 Albumin [Mass/Vol] 4.4 g/dL Normal 3.3-5.0 [facility] Comment on above: Performed By: #### 1 [id number] #### [facility] [address] [place] [address] Anion gap [Moles/Vol] 12 mmol/L Normal 6-16 [facility] Comment on above: Performed By: #### 1 [id number] #### [facility] [address] [place] [address] Calcium [Mass/Vol] 9.8 mg/dL Normal 8.9-11.1 [facility] Comment on above: Performed By: #### 1 [id number] #### [facility] [address] [place] [address] Chloride [Moles/Vol] 109 mmol/L Normal 101-111 [facility] Comment on above: Performed By: #### 1 [id number] #### [facility] [address] [place] [address] CO2 [Moles/Vol] 22 mmol/L Normal 21-31 [facility] Comment on above: Performed By: #### 1 [id number] #### [facility] [address] [place] [address] Creatinine [Mass/Vol] 1.7 mg/dL High 0.5-1.3 [facility] Comment on above: Performed By: #### 1 [id number] #### [facility] [address] [place] [address] Glucose [Mass/Vol] 229 mg/dL High 55-199 [facility] Comment on above: Result Comment: If t his glucose result represents a fasting glucose, interpretation should refer to the following reference range: 55-99 mg/dL Performed By: #### 1 [id number] #### [facility] [address] [place] [address] Phosphate [Mass/Vol] 3.0 mg/dL Normal 1.9-4.6 [facility] Comment on above: Performed By: #### 1 [id number] #### [facility] [address] [place] [address] Potassium [Moles/Vol] 5.3 mmol/L Normal 3.5-5.3 [facility] Comment on above: Performed By: #### 1 [id number] #### [facility] [address] [place] [address] Sodium [Moles/Vol] 138 mmol/L Normal 135-145 [facility] Comment on above: Performed By: #### 1 [id number] #### [facility] [address] [place] [address] Urea nitrogen [Mass/Vol] 55 mg/dL High 5-21 [facility] Comment on above: Performed By: #### 1 [id number] #### [facility] [address] [place] [address] Urea nitrogen/Creatinine [Mass ratio] 32 No Units High 10-20 [facility] Comment on above: Performed By: #### 1 [id number] #### [facility] [address] [place] [address] U Protein/Creat Ratioon 10-0 Albumin Elph (U) [Mass fraction] 17.5 mg/dL Invalid Interpretation Code [facility] Comment on above: Result Comment: The reference range and other method performance specifications have not been established for this test; results should be integrated into the clinical context for interpretation. Performed By: #### 1 [id number], [id number] ####[facility] [id number] [place] [address] Creatinine (U) [Mass/Vol] 85.4 mg/dL Invalid Interpretation Code [facility] Comment on above: Result Comment: The reference range and other method performance specifications have not been established for this test; results should be integrated into the clinical context for interpretation. Performed By: #### 1 [id number], [id number] ####[facility] [address] [place] [address] U Prot/Creat Ratio 204.90 mg/gm Cr High .00-200.00 [facility] Comment on above: Performed By: #### 1 [id number], [id number] ####[facility] [address] [place] [address] URINALYSISOrdered By: Mary Bingham on 12-10-2022 Bacteria LM Ql (Urine sed) Trace /HPF Normal Trace/HPF [facility] UA Auto SS Bilirubin Ql (U) Negative (12/10/22 9:17 AM) Normal Negative [facility] UA Auto SS Clarity (U) Clear (12/10/22 9:17 AM) Normal Clear [facility] UA Auto SS Color (U) Yellow (12/10/22 9:17 AM) Normal Yellow [facility] UA Auto SS Epithelial cells.squamous LM.HPF (Urine sed) [#/Area] 0-2 /HPF Normal 0-2/HPF [facility] UA Aut o SS Glucose Test strip (U) [Mass/Vol] 1+ *ABN* (12/10/22 9:17 AM) Invalid Interpretation Code Negative [facility] UA Auto SS Hemoglobin Ql (U) Trace *ABN* (12/10/22 9:17 AM) Invalid Interpretation Code Negative [facility] UA Auto SS Ketones (U) [Mass/Vol] Negative (12/10/22 9:17 AM) Normal Negative [facility] UA Auto SS [place].plasma/[place]. RBC (Bld) [Mass ratio] 0-3 /HPF Normal 0-3/HPF [facility] UA A uto SS Mucus Ql (Urine sed) Trace (12/10/22 9:17 AM) Normal [facility] UA Auto SS Nitrite Ql (U) Negative (12/10/22 9:17 AM) Normal Negative [facility] UA Auto SS pH (U) 5.5 *NA* (12/10/22 9:17 AM) Invalid Interpretation Code 5.0 - 9.0 [facility] UA Auto SS Protein (U) [Mass/Vol] Negative (12/10/22 9:17 AM) Normal Negative [facility] UA Auto SS Specific gravity (U) [Rel density] 1.015 *NA* (12/10/22 9:17 AM) Invalid Interpretation Code 1.005 - 1.030 [facility] [place] Auto SS UA Spec Desc Clean Catch (12/10/22 9:17 AM) Normal [facility] UA Auto SS Urobilinogen Qn (U) 0.7191059 {Arina'U}/dL Normal 0.0 - 1.0 EU/dL [facility] UA Auto SS WBC Auto Ql (U) Trace *ABN* (12/10/22 9:17 AM) Invalid Interpretation Code Negative [facility] UA Auto SS WBC LM.HPF (Urine sed) [#/Area] 0-5 /HPF Normal 0-5/HPF [facility] UA Auto SS Uric Acidon 12-10-2022 Urate [Mass/Vol] 6.4 mg/dL Normal 2.2-7.4 [facility] Comment on above: Performed By: #### 1 [id number] #### [facility] [address] [place] [address] Urinalysison 12-10-2022 Bacteria LM Ql (Urine sed) TRACE Normal Trace [facility] Comment on above: Performed By: #### 1 [id number], [id number] #### [facility] [address] [place] [address] Bilirubin Ql (U) Negative Normal Negative [facility] Comment on above: Performed By: #### 1 [id number], [id number] #### [facility] [address] [place] [address] Clarity (U) CLEAR Normal Clear [facility] Comment on above: Performed By: #### 1 [id number], [id number] #### [facility] [address] [place] [address] Color (U) YELLOW Normal Yellow [facility] Comment on above: Performed By: #### 1 [id number], [id number] #### [facility] [address] [place] [address] Epithelial cells.squamous LM.HPF (Urine sed) [#/Area] 0-2 Normal 0-2 [facility] Comment on above: Performed By: #### 1 [id number], [id number] #### [facility] [address] [place] [address] Glucose Test strip (U) [Mass/Vol] 1+ Abnormal Negative [facility] Comment on above: Performed By: #### 1 [id number], [id number] #### [facility] [address] [place] [address] Hemoglobin Ql (U) TRACE Abnormal Negative [facility] Comment on above: Performed By: #### 1 [id number], [id number] #### [facility] [address] [place] [address] Ketones (U) [Mass/Vol] Negative Normal Negative [facility] Comment on above: Performed By: #### 1 [id number], [id number] #### [facility] [address] [place] [address] [place]. RBC (Bld) [Mass ratio] 0-3 Normal 0-3 [facility] Comment on above: Performed By: #### 1 [id number], [id number] #### [facility] [address] [place] [address] Mucus Ql (Urine sed) TRACE Normal [facility] Comment on above: Performed By: #### 1 [id number], [id number] #### [facility] [address] [place] [address] Nitrite Ql (U) Negative Normal Negative [facility] Comment on above: Performed By: #### 1 [id number], [id number] #### [facility] [address] [place] [address] pH (U) 5.5 [pH] Invalid Interpretation Code 5.0-9.0 [facility] Comment on above: Performed By: #### 1 [id number], [id number] #### [facility] [address] [place] [address] Protein (U) [Mass/Vol] Negative Normal Negative [facility] Comment on above: Performed By: #### 1 [id number], [id number] #### [facility] [address] [place] [address] Specific gravity (U) [Rel density] 1.015 Invalid Interpretation Code 1.005-1.030 [facility] Comment on above: Performed By: #### 1 [id number], [id number] #### [facility] [address] [place] [address] Type of Urine collection method Clean Catch Normal [facility] Comment on above: Performed By: #### 1 [id number], [id number] #### [facility] [address] [place] [address] Urobilinogen Qn (U) 0.2 {Arina'U}/dL Normal 0.0-1.0 [facility] Comment on above: Performed By: #### 1 [id number], [id number] #### [facility] [address] [place] [address] WBC Auto Ql (U) TRACE Abnormal Negative [facility] Comment on above: Performed By: #### 1 [id number], [id number] #### [facility] [address] [place] [address] WBC LM.HPF (Urine sed) [#/Area] 0-5 Normal 0-5 [facility] Comment on above: Performed By: #### 1 [id number], [id number] #### [facility] [address] [place] [address] Vitamin D 25 Hydroxyon 12-10 25-hydroxyvitamin D3 [Mass/Vol] 43.2 ng/mL Normal 30.0-100.0 [facility] Comment on above: Result Comment: Vit webster D deficiency has been defined as a level of serum 25-OH vitamin D less than 20 ng/mL (1,2) by the [place] of [employer] and an Endocrine Society practice guideline. The Endocrine Society further defined vitamin D insufficiency as a level between 21 and 29 ng/mL (2). 1. IOM ([place] of Medicine). 2010. Dietary reference intakes for calcium and D. [place]: The National Academies Press. 2. Keegan KHAN, Clarence MANCILLA, Marika THOMAS, et al. Evaluation, treatment, and prevention of vitamin D deficiency: an Endocrine Society clinical practice guideline. JCEM. 2010; 96 (7):1911-30. Performed By: #### 1 [id number] #### [facility] [address] [place] [address] eGFRon 12-10-2022 GFR/1.73 sq M.predicted among non-blacks MDRD (S/P/Bld) [Vol rate/Area] 44 mL/min/1.73 m2 Low >=59 [facility] Comment on above: Order Comment: Order added by Discern Expert. Result Comment: Manager Labor Delivery amy kidney disease could be indicated at eGFR's of less than 60 mL/min/1.73m2. Kidney failure is indicated at less than 15 mL/min/1.73m2. Performed By: #### 1 [id number] #### [facility] [address] [place] [address] CNOVon 11-20-2022 CNOV Office Visit (PAMAVN ) ALTAGRACIA CONWAY ([id number]) 1955 [facility] Date Time Provider Department 11/20/22 11:00 AM ELBA HENRY During your visit today, we recorded the following information about you: Pulse Blood pressure Weight Height 98/minute 153/77 107.6 kg 1.88 m Elba Henry PA-C 11/20/2022 11:59 AM Signed Pain Management Follow up Spinal Cord Simulator Implantation Altagracia Conway is in the office following implantation of a Placement of Percutaneous SCS lead implantation x 2 and [employer] Intellis adaptiveStim system implantable pulse generator, on 11/13/[address] 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 Altagracia Conway reports he has no procedural pain at this time. He reports if he leans up against the IPG he will have some discomfort. He repots no pain at the surgical sites at this time. Altagracia Conway reports the first 2 days after the implant his foot pain was horrible. He reports he is having a better day today at this time. Altagracia Conway reports he is continuing to take his post-procedural antibiotic therapy. Exam: BP 153/77 Pulse 98 Ht 188 cm (6' 2 ) Wt 107.6 kg (237 lb 3.2 oz) BMI 30.45 kg/m? IPG site left lower back/upper buttock incision appears to be well approximated, it is clean, and dry, skin glue is starting to peel. Mild tenderness over the IPG site. Midline incision in the upper lumbar area is well approximated, it is clean and dry, skin glue is starting to peel. Assessment: Altagracia Conway presents to the office following implantation of a Placement of Percutaneous SCS lead implantation x 2 and Cann[employer] adaptiveStim system implantable pulse generator, on 11/13/[address] 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 Surgical incisions appear well approximated - skin glue used no sutures to be removed. [employer] rep was present for this appointment and reprogramming was performed. 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 [employer] rep present for appointment and SCS reprogramming was performed. Complete post-procedural antibiotics as ordered. RTC in 3 months or sooner if needed. Elba Henry PA-C November 20, 2022 Allergies As of Date: 11/20/2022 Noted Allergy Reaction POLLEN 01/22/2002 Comments: runny itchy eyes and nose Date Reviewed: 11/20/2022 Reviewed by: Paola Ruff OCCA - Fully Assessed Reason for Visit: Established Patient [175] Cmt: SCS Primary Visit Diagnosis:Post-operativ e state [Z98.890] Other Visit Diagnoses:Spinal cord stimulator status [Z96.89] Bilateral foot pain [M79.671, M79.672] Chemotherapy-induced neuropathy (HCC) [G62.0, T45.1X5A] Type 2 diabetes mellitus with diabetic polyneuropathy, with long-term current use of insulin (HCC) [E11.42, Z79.4] Prescriptions as of 11/20/2022 - cephALEXin (KEFLEX) 500 mg capsule Take 1 capsule by mouth four times daily for 7 days. - insulin lispro protamin/lispro (HUMALOG MIX 50-50 KWIKPEN SUBCUTANEOUS) Inject 34 Units subcutaneously DAILY (6 AM). - insulin degludec (TRESIBA FLEXTOUCH U-100) 100 unit/mL (3 mL) injection pen 34 Applicators by abdominal subcutaneous route once daily. - blood-glucose sensor (DEXCOM G7 SENSOR MISC) 1 Each. - insulin aspart U-100 (NOVOLOG FLEXPEN U-100 INSULIN) 100 unit/mL (3 mL) 60 units in morning, 60 units for lunch, and sliding scale for dinner - amlodipine besylate (AMLODIPINE ORAL) Take 10 mg by mouth once daily. - levomilnacipran (FETZIMA) 120 mg ER capsule Take 160 mg by mouth once daily. - tamsulosin (FLOMAX) 0.4 mg Take 0.4 mg by mouth once daily. - furosemide (LASIX) 20 mg tablet Take 20 mg by mouth once daily. - mirtazapine (REMERON) 45 mg tablet Take 45 mg by mouth daily at bedtime. - pregabalin (LYRICA) 150 mg capsule Take 150 mg by mouth. Weaning off medication - CREON 36,000-114,000- 180,000 unit delayed release capsule Take 2 capsules by mouth three times daily. - budesonide-formoterol (SYMBICORT) 160-4.5 mcg/actuation inhaler Inhale 2 Puffs as instructed twice daily. - albuterol HFA (PROVENTIL HFA, VENTOLIN HFA) 90 mcg/actuation inhaler Inhale 2 Puffs as instructed every 4 hours as needed for Wheezing/Shortness of Breath. - lisinopril(PRINIVIL 20 MG TAB) Take one(1) tablet daily. - atorvastatin calcium(LIPITOR 10 MG TAB) Take one(1) tablet daily. - lorazepam(ATIVAN 1 MG TAB) Take by mouth. BID weaning off Problem List As Of Date 11/20/2022 Noted Res (more content not included)... Normal [facility] Alanine aminotransferase [En zymatic activity/volume] in Serum or PlasmaOrdered By: Margaret Delgado on 11-19-2022 ALT [Catalytic activity/Vol] 43 U/L 7-52 [facility] Albumin [Mass/volume] in Ser um or Plasma by Bromocresol green (BCG) dye binding methoOrdered By: Margaret Delgado on 11-19-2022 Albumin BCG dye [Mass/Vol] 4.0 g/dL 3.5-5.7 [facility] Alkaline phosphatase [Enzyma tic activity/volume] in Serum or PlasmaOrdered By: Margaret Delgado on 11-19-2022 ALP [Catalytic activity/Vol] 209 U/L 34-104 [facility] Aspartate aminotransferase [ Enzymatic activity/volume] in Serum or PlasmaOrdered By: Margaret Delgado on 11-19-2022 AST [Catalytic activity/Vol] 40 U/L 13-39 [facility] Basophils Auto (Bld) [#/Vol] Ordered By: Margaret Delgado on 11-19-2022 Basophils (Bld) [#/Vol] 0.1 10*3/uL 0.0-0.2 [facility] Basophils/100 WBC Auto (Bld) Ordered By: Margaret Delgado on 11-19-2022 Basophils/100 WBC (Bld) 0.8 % . F [facility] Bilirubin.total [Mass/volume ] in Serum or PlasmaOrdered By: Margaret Delgado on 11-19-2022 Bilirubin [Mass/Vol] 0.3 mg/dL 0.3-1.0 [facility] Calcium [Mass/volume] in Ser um or PlasmaOrdered By: Margaret Delgado on 11-19-2022 Calcium [Mass/Vol] 9.4 mg/dL 8.6-10.3 [facility] Carbon dioxide, total [Moles /volume] in Serum or PlasmaOrdered By: Margaret Delgado on 11-19-2022 CO2 [Moles/Vol] 25.6 mmol/L 21.0-31.0 [facility] Chloride [Moles/volume] in S iqra or PlasmaOrdered By: Margaret Delgado on 11-19-2022 Chloride [Moles/Vol] 104 mmol/L 98-107 [facility] Creatinine [Mass/volume] in Serum or PlasmaOrdered By: Margaret Delgado on 11-19-2022 Creatinine [Mass/Vol] 1.79 mg/dL 0.70-1.30 [facility] Eosinophils Auto (Bld) [#/Vo l]Ordered By: Margaret Delgado on 11-19-2022 Eosinophils (Bld) [#/Vol] 0.5 10*3/uL 0.0-0.45 [facility] Eosinophils/100 WBC Auto (Bl d)Ordered By: Margaret Delgado on 11-19-2022 Eosinophils/100 WBC (Bld) 5.7 % . [facility] Erythrocyte distribution wid th Auto (RBC) [Ratio]Ordered By: Margaret Delgado on 11-19-2022 Erythrocyte distribution width (RBC) [Ratio] 14.0 % 12.0-14.8 [facility] Globulin Calc (S) [Mass/Vol] Ordered By: Margaret Delgado on 11-19-2022 Globulin (S) [Mass/Vol] 3.4 g/dL F [facility] Glucose [Mass/volume] in Ser um or PlasmaOrdered By: Margaret Delgado on 11-19-2022 Glucose [Mass/Vol] 157 mg/dL 70-100 [facility] Comment on above: ADA recommended refe rence rangeRandom Glucose Reference Range is dependent on time and content of last meal. Glucose of more than 200 mg/dL in a nonstressed, ambulatory subject supports the diagnosis of Diabetes Mellitus. Hematocrit Auto (Bld) [Volum e fraction]Ordered By: Margaret Delgado on 11-19-2022 Hematocrit (Bld) [Volume fraction] 32.6 % 38.8-50.0 [facility] Hemoglobin [Mass/volume] in BloodOrdered By: Margaret Delgado on 11-19-2022 Hemoglobin (Bld) [Mass/Vol] 11.0 g/dL 13.0-17.0 [facility] Leukocytes [#/volume] correc lamont for nucleated erythrocytes in Blood by Automated counOrdered By: Margaret Delgado on 11-19-2022 WBC corrected for nucl RBC Auto (Bld) [#/Vol] 8.9 10*3/uL 4.1-10.5 [facility] Lymphocytes Auto (Bld) [#/Vo l]Ordered By: Margaret Delgado on 11-19-2022 Lymphocytes (Bld) [#/Vol] 1.7 10*3/uL 1.00-4.8 [facility] Lymphocytes/100 WBC Auto (Bl d)Ordered By: Margaret Delgado on 11-19-2022 Lymphocytes/100 WBC (Bld) 18.9 % . [facility] MCH Auto (RBC) [Entitic mass ]Ordered By: Margaret Delgado on 11-19-2022 MCH (RBC) [Entitic mass] 29.5 pg 27.5-35.2 [facility] MCHC Auto (RBC) [Mass/Vol]Or dered By: Margaret Delgado on 11-19-2022 MCHC (RBC) [Mass/Vol] 33.8 g/dL 32.5-35.6 [facility] MCV Auto (RBC) [Entitic vol] Ordered By: Margaret Delgado on 11-19-2022 MCV (RBC) [Entitic vol] 87.3 fL 83.5-101 F [facility] Monocytes Auto (Bld) [#/Vol] Ordered By: Margaret Delgado on 11-19-2022 Monocytes (Bld) [#/Vol] 0.6 10*3/uL 0.0-0.8 [facility] Monocytes/100 WBC Auto (Bld) Ordered By: Margaret Delgado on 11-19-2022 Monocytes/100 WBC (Bld) 6.9 % . F [facility] Neutrophils Auto (Bld) [#/Vo l]Ordered By: Margaret Delgado on 11-19-2022 Neutrophils (Bld) [#/Vol] 6.0 10*3/uL 1.8-7.7 [facility] Neutrophils/100 WBC Auto (Bl d)Ordered By: Margaret Delgado on 11-19-2022 Neutrophils/100 WBC (Bld) 67.7 % . [facility] No Panel InformationOrdered By: Margaret Delgado on 11-19-2022 Estimated GFR (CKD-EPI) 41.019 mL/Min [facility] Creatinine Clearance (Chem 53.15 [facility] Nucleated erythrocytes [Pres ence] in Blood by Automated countOrdered By: Margaret Delgado on 11-19-2022 Nucleated RBC Auto Ql (Bld) 0.0 /100{WBC} 0-0.5 [facility] Platelet mean volume Auto (B ld) [Entitic vol]Ordered By: Margaret Delgado on 11-19-2022 Platelet mean volume (Bld) [Entitic vol] 8.4 fL 6.6-10.1 [facility] Platelets Auto (Bld) [#/Vol] Ordered By: Margaret Delgado on 11-19-2022 Platelets (Bld) [#/Vol] 216 10*3/uL 150-450 [facility] Potassium [Moles/volume] in Serum or PlasmaOrdered By: Margaret Delgado on 11-19-2022 Potassium [Moles/Vol] 4.8 mmol/L 3.5-5.1 [facility] Protein [Mass/volume] in Ser um or PlasmaOrdered By: Margaret Delgado on 11-19-2022 Protein [Mass/Vol] 7.4 g/dL 6.4-8.9 [facility] RBC Auto (Bld) [#/Vol]Ordere d By: Margaret Delgado on 11-19-2022 RBC (Bld) [#/Vol] 3.74 10*6/uL 3.90-5.60 [facility] Serum or plasma albumin/glob ulin mass ratioOrdered By: Margaret Delgado on 11-19-2022 Albumin/Globulin [Mass ratio] 1.2 {ratio} [facility] Serum or plasma anion gap de terminationOrdered By: Margaret Delgado on 11-19-2022 Anion gap [Moles/Vol] 11.2 mmol/L 6.0-15.0 [facility] Serum or plasma cancer antig en 19-9 measurement (units/volume)Ordered By: Margaret Delgado on 11-19-2022 Cancer Ag 19-9 Qn 14 [arb'U]/mL 0-35 [facility] Comment on above: [facility] [employer] [place] ectrochemiluminescence Immunoassay(ECLIA)Values obtained with different assay methods or kits cannotbe used interchangeably. Results cannot be interpreted asabsolute evidence of the presence or absence of malignantdisease.Performed at: [facility] [id number] Director: Flaco Pineda PhD, Phone: [phone] Sodium [Moles/volume] in Ser um or PlasmaOrdered By: Margaret Delgado on 11-19-2022 Sodium [Moles/Vol] 136 mmol/L 136-145 [facility] Urea nitrogen [Mass/volume] in Serum or PlasmaOrdered By: Margaret Delgado on 11-19-2022 Urea nitrogen [Mass/Vol] 42 mg/dL 7-25 [facility] WBC Auto (Bld) [#/Vol]Ordere d By: Margaret Delgado on 11-19-2022 WBC (Bld) [#/Vol] 8.9 10*3/uL 4.1-10.5 [facility] CNPNon 11-16-2022 CNPN Telephone (PAINLN) ALTAGRACIA CONWAY ([id number]) 1955 [facility] Date Time Provider Department 11/16/22 JORDAN ORTEGA During your visit today, we recorded the following information about you: Jerrod Mccartney RN 11/16/2022 8:29 AM Signed Patient called. Stimulator placed 11/13 is not working per patient. Reports he is still having 10/10 on 0/10 scale pain in both feet. States it feels like he is walking on marbles in his heals. Please advise, Adriane Nicholson RN 11/16/2022 11:56 AM Signed I spoke with Elba Henry PA-C regarding the below message from the patient Elba advised to call the patient to see if he has any red flag symptoms of infection such as reddness, swelling, drainage at the SCS insertion site If no red flags and patient is complaining of pain in both feet advise the patient to contact the [employer] SCS Out Of Town Collection Clerk regarding programming. All above information given to patient. Patient states no red flag symptoms. Patient stated he is going to call the [employer] rep I informed the patient to send a follow up message as to their recommendations. Adriane Nicholson RN 11/20/2022 4:14 PM Signed See office visit notes dated 11/20/2022 Allergies As of Date: 11/16/2022 Noted Allergy Reaction POLLEN 01/22/2002 Comments: runny itchy eyes and nose Date Reviewed: 11/13/2022 Reviewed by: Shelley Sandoval RN - Fully Assessed Reason for Visit: Patient Update [1234] Prescriptions as of 11/20/2022 - cephALEXin (KEFLEX) 500 mg capsule Take 1 capsule by mouth four times daily for 7 days. - insulin lispro protamin/lispro (HUMALOG MIX 50-50 KWIKPEN SUBCUTANEOUS) Inject 34 Units subcutaneously DAILY (6 AM). - insulin degludec (TRESIBA FLEXTOUCH U-100) 100 unit/mL (3 mL) injection pen 34 Applicators by abdominal subcutaneous route once daily. - blood-glucose sensor (DEXCOM G7 SENSOR MISC) 1 Each. - insulin aspart U-100 (NOVOLOG FLEXPEN U-100 INSULIN) 100 unit/mL (3 mL) 60 units in morning, 60 units for lunch, and sliding scale for dinner - amlodipine besylate (AMLODIPINE ORAL) Take 10 mg by mouth once daily. - levomilnacipran (FETZIMA) 120 mg ER capsule Take 160 mg by mouth once daily. - tamsulosin (FLOMAX) 0.4 mg Take 0.4 mg by mouth once daily. - furosemide (LASIX) 20 mg tablet Take 20 mg by mouth once daily. - mirtazapine (REMERON) 45 mg tablet Take 45 mg by mouth daily at bedtime. - pregabalin (LYRICA) 150 mg capsule Take 150 mg by mouth. Weaning off medication - CREON 36,000-114,000- 180,000 unit delayed release capsule Take 2 capsules by mouth three times daily. - budesonide-formoterol (SYMBICORT) 160-4.5 mcg/actuation inhaler Inhale 2 Puffs as instructed twice daily. - albuterol HFA (PROVENTIL HFA, VENTOLIN HFA) 90 mcg/actuation inhaler Inhale 2 Puffs as instructed every 4 hours as needed for Wheezing/Shortness of Breath. - lisinopril(PRINIVIL 20 MG TAB) Take one(1) tablet daily. - atorvastatin calcium(LIPITOR 10 MG TAB) Take one(1) tablet daily. - lorazepam(ATIVAN 1 MG TAB) Take by mouth. 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 [[id number]] 01/22/2002 Unspecified Senile Cataract [H25.9] 11/02/2009 Type 2 diabetes mellitus with diabetic polyneur*08/13/2022 Chemotherapy-induced neuropathy (HCC) [G62.0, T*08/13/2022 Bilateral foot pain [M79.671, M79.672] 08/13/2022 Bilateral hand pain [M79.641, M79.642] 08/13/2022 Recurrent major depression in remission (HCC) [*09/07/2022 History of amputation of right great toe (HCC) *09/07/2022 Hypertension [I10] 10/18/2022 Hyperlipidemia [E78.5] 10/18/2022 Current smoker [F17.200] 10/18/2022 Obesity (BMI 30-39.9) [E66.9] 10/18/2022 Malignant neoplasm of pancreas (HCC) [C25.9] 10/19/2022 Stage 3 chronic kidney disease (HCC) [N18.30] 10/19/2022 Chronic obstructive pulmonary disease (HCC) [J4*10/19/2022 Encounter Status:Closed by JERROD MCCARTNEY [facility] ALTAGRACIA CONWAY ([id number]) 1955 M [facility] Date Time Provider Department 11/16/22 JORDAN ORTEGA During your visit today, we recorded the following information about you: Adriane Nicholson RN 11/16/2022 11:53 AM Signed DATE OF SERVICE: 11/13/2022 PATIENT'S PHONE NUMBERS: [phone] (home) PROVIDER: Dr. Ortega PROCEDURE: Placement of Percutaneous SCS lead implantation x 2 and [employer] Intellis adaptiveStim system implantable pulse generator. Spoke directly with patient/caregiver Patient states that they are 0% better. ASSESSMENT AND PLAN: 1) S/P Permanent SCS Implant Today. 2) RTC in 7-10 days for follow up 3) Keflex 500mg QID x 7 days #28, Percocet 5/325 mg Q 6 hrs as needed for moderate to severe acute postoperative pain #20 4) The treatment plan was discussed with the patient. Post procedure instructions were reviewed and the patient voiced understanding. Altagracia Gonzalezner was discharged home in stable condition. Jordan Ortega, DO Pain Management November 13, 2022 See Telephone encounter dated 11/16/2022 at 8:29am Allergies As of Date: 11/16/2022 Noted Allergy Reaction POLLEN 01/22/2002 Comments: runny itchy eyes and nose Date Reviewed: 11/13/2022 Reviewed by: Shelley Sandoval RN - Fully Assessed Reason for Visit: Pain procedure response and follow up [Other] Cmt: Placement of Percutaneous SCS lead implantation x 2 and?Medtronic Intellis adaptiveStim?system implantable pulse generator.? Prescriptions as of 11/16/2022 - cephALEXin (KEFLEX) 500 mg capsule Take 1 capsule by mouth four times daily for 7 days. - oxyCODONE-acetaminophen (PERCOCET) 5-325 mg tablet Take 1 tablet by mouth every 6 hours as needed for pain (moderate to severe acute postoperative pain) for up to 5 days. - insulin lispro protamin/lispro (HUMALOG MIX 50-50 KWIKPEN SUBCUTANEOUS) Inject 34 Units subcutaneously DAILY (6 AM). - insulin degludec (TRESIBA FLEXTOUCH U-100) 100 unit/mL (3 mL) injection pen 34 Applicators by abdominal subcutaneous route once daily. - blood-glucose sensor (DEXCOM G7 SENSOR MISC) 1 Each. - insulin aspart U-100 (NOVOLOG FLEXPEN U-100 INSULIN) 100 unit/mL (3 mL) 60 units in morning, 60 units for lunch, and sliding scale for dinner - amlodipine besylate (AMLODIPINE ORAL) Take 10 mg by mouth once daily. - levomilnacipran (FETZIMA) 120 mg ER capsule Take 160 mg by mouth once daily. - tamsulosin (FLOMAX) 0.4 mg Take 0.4 mg by mouth once daily. - furosemide (LASIX) 20 mg tablet Take 20 mg by mouth once daily. - mirtazapine (REMERON) 45 mg tablet Take 45 mg by mouth daily at bedtime. - pregabalin (LYRICA) 150 mg capsule Take 150 mg by mouth. Weaning off medication - CREON 36,000-114,000- 180,000 unit delayed release capsule Take 2 capsules by mouth three times daily. - budesonide-formoterol (SYMBICORT) 160-4.5 mcg/actuation inhaler Inhale 2 Puffs as instructed twice daily. - albuterol HFA (PROVENTIL HFA, VENTOLIN HFA) 90 mcg/actuation inhaler Inhale 2 Puffs as instructed every 4 hours as needed for Wheezing/Shortness of Breath. - lisinopril(PRINIVIL 20 MG TAB) Take one(1) tablet daily. - atorvastatin calcium(LIPITOR 10 MG TAB) Take one(1) tablet daily. - lorazepam(ATIVAN 1 MG TAB) Take by mouth. 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 [PPK5006] 01/22/2002 Unspecified Senile Cataract [H25.9] 11/02/2009 Type 2 diabetes mellitus with diabetic polyneur*08/13/2022 Chemotherapy-induced neuropathy (HCC) [G62.0, T*08/13/2022 Bilateral foot pain [M79.671, M79.672] 08/13/2022 Bilateral hand pain [M79.641, M79.642] 08/13/2022 Recurrent major depression in remission (HCC) [*09/07/2022 History of amputation of right great toe (HCC) *09/07/2022 Hypertension [I10] 10/18/2022 Hyperlipidemia [E78.5] 10/18/2022 Current smoker [F17.200] 10/18/2022 Obesity (BMI 30-39.9) [E66.9] 10/18/2022 Malignant neoplasm of pancreas (HCC) [C25.9] 10/19/2022 Stage 3 chronic kidney disease (HCC) [N18.30] 10/19/2022 Chronic obstructive pulmonary disease (HCC) [J4*10/19/2022 Encounter Status:Closed by ADRIANE NICHOLSON on 11/16/22 [facility] ANES POSTPROC EVALon 023 ANES POSTPROC EVAL HNO ID: [id number] Author: Scooter Ramirez MD Service: Anesthesiology Author Type: Anesthesiologist Type: Anesthesia Postprocedure Evaluation Filed: 11/13/2022 11:32 AM Note Text: POST ANESTHESIA EVALUATION NOTE : 1955 Procedure Summary Date: 11/13/22 Room / Location: [address] Anesthesia Start: 914 Anesthesia Stop: 1100 Procedures: INSERTION STIMULATOR SPINAL CORD (Spine) PERCUTANEOUS IMPLANT LEAD NEUROSTIM EPIDURAL TRIAL (Spine) Diagnosis: 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 PACU/ICU Patient Condition: stable. Anticipated Disposition: phase 2 then home. Neurological Status: aware and responsive. Pulmonary Status: breathing comfortably on room air Airway Control: returned to baseline unsupported. Cardiovascular Status: stable. Pain Management: clinically adequate Postoperative Hydration: acceptable. Intraoperative Events: no significant anesthesia events Recommendation: continue current plan of care and further care per PACU/ICU/floor team. Anesthesia Observations No Documentation SIGNATURE: Scooter Ramirez MD PATIENT NAME: Altagracia Conway DATE: November 13, 2022 TIME: 11:32 AM CSN: [id number] [facility] ANES PRE-OPon 11-13-2022 ANES PRE-OP HNO ID: [id number] Author: Scooter Ramirez MD Service: Anesthesiology Author Type: Anesthesiologist Type: Anesthesia Preprocedure Evaluation Filed: 11/13/2022 8:13 AM Note Text: ANESTHESIOLOGY DAY OF SURGERY NOTE : 1955 Procedure Information Date/Time: 11/13/22 0856 Procedures: INSERTION STIMULATOR SPINAL CORD (Spine) PERCUTANEOUS IMPLANT LEAD NEUROSTIM EPIDURAL TRIAL (Spine) Location: [address] / [facility] Surgeons: Jordan Ortega, Estimated body mass index is 29.92 kg/m? as calculated from the following: Height as of 11/07/22: 188 cm (6' 2 ). Weight as of 11/07/22: 105.7 kg (233 lb). Most recent hematocrit and potassium results: Hematocrit 46.1 05/03/2004 Potassium 5.0 10/19/2022 Relevant Problems CARDIO (+) Hypertension ENDO (+) Type 2 diabetes mellitus with diabetic polyneuropathy, with long-term current use of insulin (HCC) -RENAL (+) Stage 3 chronic kidney disease (HCC) PULMONARY (+) Chronic obstructive pulmonary disease (HCC) I - PHYSICAL EVALUATION AIRWAY Patient intubated: No. Tracheostomy tube not present Mallampati: III. TM distance: >3 FB. Neck ROM: full ROM without neurological symptoms. Mouth opening: adequate. Short neck: no. Thick neck: no Rice present: no DENTAL Dental findings: missing tooth/teeth. Additional exam findings: yes. CARDIOVASCULAR Normal cardiovascular observations. Rhythm: regular Rate: normal PULMONARY Normal pulmonary observations. Breath sounds clear to auscultation. II - ANESTHESIA PLAN ASA Score: 3 Anesthetic Plan: MAC NPO Status: adequate Beta Cordell Monitoring Plan Monitoring plan: Standard ASA. Post Procedure Analgesic Plan Postoperative analgesic plan: multimodal analgesia. Informed Consent Anesthetic risks, benefits, alternatives, personnel and consent discussed: yes. Patient / Responsible Democrat agrees to proceed: yes Patient / Surrogate agrees to blood products: blood products not planned Significant changes in the patient condition since the History and Physical, not otherwise documented in primary service progress note: no. Potential Anesthesia issues that may suggest increased risk of complications or contraindication to planned procedure: none. No vitals data found for the desired time range. No current facility-administered medications on file as of 11/13/2022. Outpatient Medications as of 11/13/2022 Medication Sig - insulin lispro protamin/lispro (HUMALOG MIX 50-50 KWIKPEN SUBCUTANEOUS) Inject 34 Units subcutaneously DAILY (6 AM). - insulin degludec (TRESIBA FLEXTOUCH U-100) 100 unit/mL (3 mL) injection pen 34 Applicators by abdominal subcutaneous route once daily. - blood-glucose sensor (DEXCOM G7 SENSOR MISC) 1 Each. - insulin aspart U-100 (NOVOLOG FLEXPEN U-100 INSULIN) 100 unit/mL (3 mL) 60 units in morning, 60 units for lunch, and sliding scale for dinner (Patient taking differently: Inject 8 Units subcutaneously daily with breakfast. 8 units in morning, 8 units for lunch, and sliding scale for dinner) - amlodipine besylate (AMLODIPINE ORAL) Take 10 mg by mouth once daily. - levomilnacipran (FETZIMA) 120 mg ER capsule Take 160 mg by mouth once daily. - tamsulosin (FLOMAX) 0.4 mg Take 0.4 mg by mouth once daily. - furosemide (LASIX) 20 mg tablet Take 20 mg by mouth once daily. - mirtazapine (REMERON) 45 mg tablet Take 45 mg by mouth daily at bedtime. - pregabalin (LYRICA) 150 mg capsule Take 150 mg by mouth. Weaning off medication - CREON 36,000-114,000- 180,000 unit delayed release capsule Take 2 capsules by mouth three times daily. - budesonide-formoterol (SYMBICORT) 160-4.5 mcg/actuation inhaler Inhale 2 Puffs as instructed twice daily. - albuterol HFA (PROVENTIL HFA, VENTOLIN HFA) 90 mcg/actuation inhaler Inhale 2 Puffs as instructed every 4 hours as needed for Wheezing/Shortness of Breath. - lisinopril(PRINIVIL 20 MG TAB) Take one(1) tablet daily. - atorvastatin calcium(LIPITOR 10 MG TAB) Take one(1) tablet daily. - lorazepam(ATIVAN 1 MG TAB) Take by mouth. BID weaning off I have interviewed and examined the patient. I have reviewed the medical record and/or the pre-anesthesia evaluation, pertinent labs, and test results. This contains updated information obtained within 48 hours of Surgery/Procedure. SIGNATURE: Scooter Ramirez MD PATIENT NAME: Altagracia Conway DATE: November 13, 2022 TIME: 8:13 AM CSN: [id number] [facility] OPERATIVE NOon 11-13-2022 OPERATIVE NO HNO ID: [id number] Author: Jordan Ortega DO Service: Pain Management Author Type: Physician Type: Operative Report Filed: 11/13/2022 11:04 AM Note Text: Patient Name Medical Record # Altagracia Conway [id number] Date of : 1955 Admit Date: November 13, 2022 Sex / Age: male/67 year old Discharge Date: November 13, 2022 Date: November 13, 2022 Attending Physician: Jordan Ortega DO Service: Pain Managment LOG ID: [id number] Surgery/Procedure Date: 11/13/2022 Incision/Procedure Start Time: 9:37 AM Incision Close/Procedure End Time: 10:53 AM PREOPERATIVE DIAGNOSIS: Diabetic Peripheral neuropathy POSTOPERATIVE DIAGNOSIS: Same NAME OF OPERATION: Placement of Percutaneous SCS lead implantation x 2 and Medtronic Intellis adaptiveStim system implantable pulse generator. SURGEON: Jordan Ortega DO ROOM SERVICE ATTENDANT: Andria Bedolla MD, PGY5 Antonio Fairchild PA-C ANESTHESIA: Monitored anesthesia care and local anesthesia. Please refer to full anesthesia record in the patient's chart. PREOPERATIVE ANTIBIOTICS: Cefazolin 2 gram IV given 30 minutes prior to incision. INFORMED CONSENT:The procedure, risks, benefits and options were discussed with patient. There are no contraindications to the procedure. The patient expressed understanding and agreed to proceed. The personnel performing the procedure was discussed. I verify that I personally obtained Altagracia Conway's consent prior to the start of the procedure. Jordan Ortega, OPERATIVE PROCEDURE: Altagracia Conway was brought to the operating room and was placed in the prone position. He was prepped and draped in the usual sterile fashion with chlorhexidine and povidone-iodine and three times. With fluoroscopic guidance the location of the desired site for placement of the percutaneous leads was identified and local anesthetic consisting of Lidocaine 1% followed by 0.5% Bupivacaine mixed with 2% Lidocaine and epinephrine was injected subcutaneously over the area. An approximately seven centimeter longitudinal incision was made in the midline. The incision was dissected down to the supraspinous ligament. Hemostasis was established and a self-retaining retractor was used to allowadequate visualization. A #14 gauge Tuohy needle was then introduced with the paraspinous approach under fluoroscopic guidance into the L2-3 interlaminar space. The entry of the Tuohy into the epidural space was verified by using loss of resistance to air with a glass 5 mL syringe. The lead was passed through the needle and advanced up to Top of T10 vertebral body in the midline with fluoroscopic guidance. A second lead was then placed in identical fashion and placed adjacent to the first just to the right of midline at top of T10 vertebral body. The leads were then anchored to the supraspinous ligaments with #2-0 silk suture using the anchoring devices. A pocket site was identified just below the Left iliac crest. Local anesthetic was administered in the region and a six centimeter incision was made. A subcutaneous pocket was then created with a blunt dissection technique for placement of the [email or web address] Rightware OyStim implantable pulse generator. The tunneling was then done between the lead and the pocket site after the administration of additional local anesthetic subcutaneously. The tunneling tool with a wedged tip attachment was introduced subcutaneously from the lead incision and guided to the pocket. The leads were inserted into the tunneling catheter and advanced to the pocket site. The leads were then inserted into the implantable pulse generator and the screws were tightened with the hexwrench. The generator was then introduced into the pocket and remote tested to ensure adequate placement of the leads into the IPG. Both surgical wounds were then irrigated with antibiotic solution and the wounds were closed with #2-0 Vicryl followed by 3-0 vicryl and then a final layer of 4-0 vicryl suture. Exofin glue was applied on top of both surgical wounds then sterile dressing was applied. Simple ( 3 or fewer) stimulator analysis was performed. Electronic analysis of the pulse generator was performed. The impedance value was normal Analysis/ programming performed: Post op for 15 minutes. Complications: None. Estimated Blood Loss: None. Drains: None. Implantable Device: 1- [email or web address] adaptiveStim Battery Serial #[id number] Model # [id number] 2- Vectris SureScan MRI Medtronic Lead #1 60 cm Model # [id number] Serial # [id number] 3- Vectris SureScan MRI Medtronic Lead #2 60 cm Model # [id number] Serial # [id number] 4- TYRX antibacterial envelope REf # [id number] Lot # [id number] Exp 06/06/2023 Specimen: None. I was present during the entire procedure, assisted as needed, patient tolerated well and no apparant complications, plan as outlined. Jordan Ortega DO ASSESSMENT AND PLAN: 1) S/P Permanent SCS Implant Today. 2) RTC in 09-17 (more content not included)... Normal [facility] 11-09-2022 [facility] Telephone (PAINLN) ALTAGRACIA CONWAY ([id number]) 1955 [facility] Date Time Provider Department 11/09/22 JORDAN ORTEGA PAINLN During your visit today, we recorded the following information about you: Kristen Templeton LPN 11/09/2022 10:23 AM Signed Called patient, verified name and , regarding SCS procedure on 11/13/2022. Patient instructed: 1) Not to take any ASA or ASA containing medications for 10 days prior to procedure (including NSAIDS: Celebrex, Mobic or Naproxen and other OTC NSAIDS such as Ibuprofen or Aleve). 2) To buy Hibiclens OTC and shower with it the evening before and morning of the procedure being careful to avoid eyes, nose and mouth. 3) To notify the office for any signs of any kind of infection prior to the procedure as the procedure will need to be rescheduled. Patient is to follow the above instructions for SCS implant procedure. Patient verbalized understanding of instructions given. Patient will need scheduled for 1 week office f/u (in 30 min slot) with Dolly after SCS Implant. Patient scheduled for an appt on 11/20/2022 at 11 am with Dolly at the [facility]. Please notify the SCS Rep of the post op appt. Pt verbalized understanding of above. Pt instructed to call with any questions or concerns. Allergies As of Date: 11/09/2022 Noted Allergy Reaction POLLEN 01/22/2002 Comments: runny itchy eyes and nose Date Reviewed: 11/07/2022 Reviewed by: Jordan Ortega DO - Fully Assessed Reason for Visit: Procedure [88] Cmt: SCS implant Prescriptions as of 11/09/2022 - insulin lispro protamin/lispro (HUMALOG MIX 50-50 KWIKPEN SUBCUTANEOUS) Inject 34 Units subcutaneously DAILY (6 AM). - insulin degludec (TRESIBA FLEXTOUCH U-100) 100 unit/mL (3 mL) injection pen 34 Applicators by abdominal subcutaneous route once daily. - blood-glucose sensor (DEXCOM G7 SENSOR MISC) 1 Each. - insulin aspart U-100 (NOVOLOG FLEXPEN U-100 INSULIN) 100 unit/mL (3 mL) 60 units in morning, 60 units for lunch, and sliding scale for dinner - amlodipine besylate (AMLODIPINE ORAL) Take 10 mg by mouth once daily. - levomilnacipran (FETZIMA) 120 mg ER capsule Take 160 mg by mouth once daily. - tamsulosin (FLOMAX) 0.4 mg Take 0.4 mg by mouth once daily. - furosemide (LASIX) 20 mg tablet Take 20 mg by mouth once daily. - mirtazapine (REMERON) 45 mg tablet Take 45 mg by mouth daily at bedtime. - pregabalin (LYRICA) 150 mg capsule Take 150 mg by mouth. Weaning off medication - CREON 36,000-114,000- 180,000 unit delayed release capsule Take 2 capsules by mouth three times daily. - budesonide-formoterol (SYMBICORT) 160-4.5 mcg/actuation inhaler Inhale 2 Puffs as instructed twice daily. - albuterol HFA (PROVENTIL HFA, VENTOLIN HFA) 90 mcg/actuation inhaler Inhale 2 Puffs as instructed every 4 hours as needed for Wheezing/Shortness of Breath. - lisinopril(PRINIVIL 20 MG TAB) Take one(1) tablet daily. - atorvastatin calcium(LIPITOR 10 MG TAB) Take one(1) tablet daily. - lorazepam(ATIVAN 1 MG TAB) Take by mouth. 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 [[id number]] 01/22/2002 Unspecified Senile Cataract [H25.9] 11/02/2009 Type 2 diabetes mellitus with diabetic polyneur*08/13/2022 Chemotherapy-induced neuropathy (HCC) [G62.0, T*08/13/2022 Bilateral foot pain [M79.671, M79.672] 08/13/2022 Bilateral hand pain [M79.641, M79.642] 08/13/2022 Recurrent major depression in remission (HCC) [*09/07/2022 History of amputation of right great toe (HCC) *09/07/2022 Hypertension [I10] 10/18/2022 Hyperlipidemia [E78.5] 10/18/2022 Current smoker [F17.200] 10/18/2022 Obesity (BMI 30-39.9) [E66.9] 10/18/2022 Malignant neoplasm of pancreas (HCC) [C25.9] 10/19/2022 Stage 3 chronic kidney disease (HCC) [N18.30] 10/19/2022 Chronic obstructive pulmonary disease (HCC) [J4*10/19/2022 Encounter Status:Closed by KRISTEN TEMPLETON on 11/09/22 [facility] Tae 11-08-2022 MATTHEW Telephone (ORLORA) MANALTAGRACIA Montiel ([id number]) 1955 M [facility] Date Time Provider Department 11/08/22 JORDAN ORTEGA During your visit today, we recorded the following information about you: Sharon Foxjosie Eckert 11/08/2022 9:18 AM Signed SCS PERMANENT PLACEMENT [employer] ALTAGRACIA CONWAY [id number] JORDAN 11/13 [employer] REP EMAILED PRE ADMISSION TESTING APT SCHEDULED ENCOUNTER SENT TO NURSING TO SCHEDULE FOLLOW UP OFFICE VISIT ASC NOTIFIED -THINNERS +DM Patient was made aware that the ASC will call the day prior to scheduled procedure between the hours of 12 and 4 pm to advise patient of arrival time the day of procedure. Patient was advised that they will require a hog driver on the day of their procedure, and procedure will be cancelled if they arrive without a responsible adult to transport them home from the procedure. Patient advised that all medication management instructions prior to procedure will need addressed by clinical staff. Patient expresses understanding with no further questions or concerns at this time. Patient transferred to [facility] scheduling line to authorize procedure, or greencoat appointment made. Sharon Foxjosie Eckert 11/08/2022 9:18 AM Signed Please schedule follow up office visit for 1 week after 11/13. Zari Chapman LPN 11/08/2022 5:25 PM Signed Called spoke with patient, scheduled for follow up visit with Marilyn Henry PA-C in [place] on 11/20/@ 11:00am. Please call tomorrow with reminder unable to write down. Kristen Templeton LPN 11/09/2022 2:10 PM Signed Spoke with pt this am, seen tele [facility] 11/09/2022. Allergies As of Date: 11/08/2022 Noted Allergy Reaction POLLEN 01/22/2002 Comments: runny itchy eyes and nose Date Reviewed: 11/07/2022 Reviewed by: Jordan Ortega DO - Fully Assessed Reason for Visit: Schedule Injection [3706] Primary Visit Diagnosis:Chemotherapy- induced neuropathy (HCC) [G62.0, T45.1X5A] Other Visit Diagnosis:Pain disorders related to psychological factors [F45.42] Order(s):SURGICAL REQUEST - ELECTIVE (10/2019) [[id number]] Order #: [id number]: 1 Prescriptions as of 11/09/2022 - insulin lispro protamin/lispro (HUMALOG MIX 50-50 KWIKPEN SUBCUTANEOUS) Inject 34 Units subcutaneously DAILY (6 AM). - insulin degludec (TRESIBA FLEXTOUCH U-100) 100 unit/mL (3 mL) injection pen 34 Applicators by abdominal subcutaneous route once daily. - blood-glucose sensor ([employer] G7 SENSOR MISC) 1 Each. - insulin aspart U-100 (NOVOLOG FLEXPEN U-100 INSULIN) 100 unit/mL (3 mL) 60 units in morning, 60 units for lunch, and sliding scale for dinner - amlodipine besylate (AMLODIPINE ORAL) Take 10 mg by mouth once daily. - levomilnacipran (FETZIMA) 120 mg ER capsule Take 160 mg by mouth once daily. - tamsulosin (FLOMAX) 0.4 mg Take 0.4 mg by mouth once daily. - furosemide (LASIX) 20 mg tablet Take 20 mg by mouth once daily. - mirtazapine (REMERON) 45 mg tablet Take 45 mg by mouth daily at bedtime. - pregabalin (LYRICA) 150 mg capsule Take 150 mg by mouth. Weaning off medication - CREON 36,000-114,000- 180,000 unit delayed release capsule Take 2 capsules by mouth three times daily. - budesonide-formoterol (SYMBICORT) 160-4.5 mcg/actuation inhaler Inhale 2 Puffs as instructed twice daily. - albuterol HFA (PROVENTIL HFA, VENTOLIN HFA) 90 mcg/actuation inhaler Inhale 2 Puffs as instructed every 4 hours as needed for Wheezing/Shortness of Breath. - lisinopril(PRINIVIL 20 MG TAB) Take one(1) tablet daily. - atorvastatin calcium(LIPITOR 10 MG TAB) Take one(1) tablet daily. - lorazepam(ATIVAN 1 MG TAB) Take by mouth. 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 [[id number]] 01/22/2002 Unspecified Senile Cataract [H25.9] 11/02/2009 Type 2 diabetes mellitus with diabetic polyneur*08/13/2022 Chemotherapy-induced neuropathy (HCC) [G62.0, T*08/13/2022 Bilateral foot pain [M79.671, M79.672] 08/13/2022 Bilateral hand pain [M79.641, M79.642] 08/13/2022 Recurrent major depression in remission (HCC) [*09/07/2022 History of amputation of right great toe (HCC) *09/07/2022 Hypertension [I10] 10/18/2022 Hyperlipidemia [E78.5] 10/18/2022 Current smoker [F17.200] 10/18/2022 Obesity (BMI 30-39.9) [E66.9] 10/18/2022 Malignant neoplasm of pancreas (HCC) [C25.9] 10/19/2022 Stage 3 chronic kidney disease (HCC) [N18.30] 10/19/2022 Chronic obstructive pulmonary disease (HCC) [J4*10/19/2022 Encounter Status:Closed by KRISTEN TEMPLETON on 11/09/22 [facility] MAGDAOVon 11-07-2022 CNOV Office Visit (PAINLN ) ALTAGRACIA CONWAY ([id number]) 1955 M [place] Date Time Provider Department 11/07/22 5:00 PM JORDAN ORTEGA PAINLN During your visit today, we recorded the following information about you: Pulse Weight Height 74/minute 105.7 kg 1.88 m Jordan Ortega, 11/07/2022 6:02 PM Signed [facility] Date: 11/07/2022 Name: Altagracia Conway Subjective: Altagracia Conway is a male with Diabetic Peripheral neuropathy and chemotherapy Induced. History of Neuropathy bilateral hand and foot. Percutaneous 60 cm Medtronic trial lead in the epidural space Percutaneous spinal cord stimulation trial 10/30/2022 and he reported Improvement in walking and function Positive improvement since my procedure on 10/30/2022 and he is able to function With less pain He is here for leads removal and scheduling for the permanent implantation. Objective: Pulse 74, height 188 cm (6' 2 ), weight 105.7 kg (233 lb), SpO2 97 %. Assessment and Plan: Altagracia Conway, 67YO M, with T2DM (HbA1C 7.6 as of 10/2022, insulin-dependent) complicated by peripheral neuropathy, HTN, HLD, current smoker, COPD, CKD3, and major depression underwent a SCS trial for diabetic neuropathy of bilateral feet. He had a 90% improvement in overall physical function (walking, standing) and analgesic relief with regards to his chronic bilateral foot pain. He had a remarkable response to the SCS trial and did not want the trial leads removed. He denies any fevers, chills, or signs and symptoms concerning for an acute infectious process. He had no apparent procedural complications and tolerated the SCS device well. We will schedule him for a permanent SCS implant next week. Andria Bedolla MD Crystal findings confirmed. Patient examined and plan outlined with the Resident physician and patient. Agree with the evaluation and plan as described above. Plan to proceed with permanent spinal cord stimulation implantation. Jordan Ortega DO November 07, 2022 Allergies As of Date: 11/07/2022 Noted Allergy Reaction POLLEN 01/22/2002 Comments: runny itchy eyes and nose Date Reviewed: 11/07/2022 Reviewed by: Jordan Ortega DO - Fully Assessed Reason for Visit: Recheck [92] Cmt: SCS trial Primary Visit Diagnosis:Type 2 diabetes mellitus with diabetic polyneuropathy, with long-term current use of insulin (HCC) [E11.42, Z79.4] Other Visit Diagnoses:Chemotherapy- induced neuropathy (HCC) [G62.0, T45.1X5A] Bilateral foot pain [M79.671, M79.672] Prescriptions as of 11/07/2022 - insulin lispro protamin/lispro (HUMALOG MIX 50-50 KWIKPEN SUBCUTANEOUS) Inject 34 Units subcutaneously DAILY (6 AM). - insulin degludec (TRESIBA FLEXTOUCH U-100) 100 unit/mL (3 mL) injection pen 34 Applicators by abdominal subcutaneous route once daily. - blood-glucose sensor (DEXCOM G7 SENSOR MISC) 1 Each. - insulin aspart U-100 (NOVOLOG FLEXPEN U-100 INSULIN) 100 unit/mL (3 mL) 60 units in morning, 60 units for lunch, and sliding scale for dinner - amlodipine besylate (AMLODIPINE ORAL) Take 10 mg by mouth once daily. - levomilnacipran (FETZIMA) 120 mg ER capsule Take 160 mg by mouth once daily. - tamsulosin (FLOMAX) 0.4 mg Take 0.4 mg by mouth once daily. - furosemide (LASIX) 20 mg tablet Take 20 mg by mouth once daily. - mirtazapine (REMERON) 45 mg tablet Take 45 mg by mouth daily at bedtime. - pregabalin (LYRICA) 150 mg capsule Take 150 mg by mouth. Weaning off medication - CREON 36,000-114,000- 180,000 unit delayed release capsule Take 2 capsules by mouth three times daily. - budesonide-formoterol (SYMBICORT) 160-4.5 mcg/actuation inhaler Inhale 2 Puffs as instructed twice daily. - albuterol HFA (PROVENTIL HFA, VENTOLIN HFA) 90 mcg/actuation inhaler Inhale 2 Puffs as instructed every 4 hours as needed for Wheezing/Shortness of Breath. - lisinopril(PRINIVIL 20 MG TAB) Take one(1) tablet daily. - atorvastatin calcium(LIPITOR 10 MG TAB) Take one(1) tablet daily. - lorazepam(ATIVAN 1 MG TAB) Take by mouth. 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 [[id number]] 01/22/2002 Unspecified Senile Cataract [H25.9] 11/02/2009 Type 2 diabetes mellitus with diabetic polyneur*08/13/2022 Chemotherapy-induced neuropathy (HCC) [G62.0, T*08/13/2022 Bilateral foot pain [M79.671, M79.672] 08/13/2022 Bilateral hand pain [M79.641, M79.642] 08/13/2022 Recurrent major depression in remission (HCC) [*09/07/2022 History of amputation of right great toe (HCC) *09/07/2022 Hypertension [I10] 10/18/2022 Hyperlipidemia [E78.5] 10/18/2022 Current smoker [F17.200] 10/18/2022 Obesity (BMI 30-39.9) [E66.9] 10/18/2022 Malignant neoplasm of pancreas (HCC) [C25.9] 10/19/2022 Stage 3 chronic kidney disease (HCC) [N18.30] 10/19/2022 Chronic obstructive pulmonary di (more content not included)... Normal [facility] OPERATIVE NOon 10-30-2022 OPERATIVE NO HNO ID: [id number] Author: Jordan Ortega DO Service: Pain Management Author Type: Physician Type: Operative Report Filed: 10/30/2022 8:54 AM Note Text: opened in error [facility] OPERATIVE NO HNO ID: [id number] Author: Jordan Ortega DO Service: Pain Management Author Type: Physician Type: Operative Report Filed: 10/30/2022 8:55 AM Note Text: Patient Name Medical Record # Altagracia Conway [id number] Date of : 1955 Admit Date: October 30, 2022 Sex / Age: male/67 year old Discharge Date: October 30, 2022 Date: October 30, 2022 Attending Physician: Jordan Ortega DO Service: Pain Managment LOG ID: [id number] Surgery/Procedure Date: 10/30/2022 Incision/Procedure Start Time: 7:51 AM Incision Close/Procedure End Time: 8:06 AM PREOPERATIVE DIAGNOSIS: Diabetic Peripheral neuropathy and chemotherapy induced neuropathy POSTOPERATIVE DIAGNOSIS: Same NAME OF OPERATION: Percutaneous spinal cord stimulation trial under fluoroscopic guidance ( [place]) SURGEON: Jordan Ortega DO ROOM SERVICE ATTENDANT: None. ANESTHESIA: Moderate sedation and Local Anesthesia, Versed 2 mg IV PREOPERATIVE ANTIBIOTICS: Cefazolin 2 gram IV given 30 minutes prior to procedure start. INFORMED CONSENT: The procedure, risks, benefits and options were discussed with patient. There are no contraindications to the procedure. The patient expressed understanding and agreed to proceed. The personnel performing the procedure was discussed. I verify that I personally obtained Altagracia Conway's consent prior to the start of the procedure. Jordan Ortega DO DESCRIPTION OF PROCEDURE: The patient was brought to the fluoroscopy suite. IV access was obtained prior to the procedure. The patient was positioned prone on the fluoroscopy table. Continuous hemodynamic monitoring was initiated including blood pressure and pulse oximetry. IV sedation was administered incrementally to allow the patient to remain comfortable and conversant throughout the procedure. The lumbar spine area was prepped with chlorhexidine povidone-iodine three times and draped in a sterile fashion. Skin anesthesia was achieved using 5 cc of lidocaine 0.5 %. A 14g 3 1/2 Tuohy needle was inserted at the L1-L2 interspace using a right paramedian approach. The needle was slowly advanced in a 45-degree angle down towards the ligamentum flavum. Once the ligamentum flavum was reached, a loss of resistance glass syringe was attached. The needle was slowly advanced into the dorsal epidural space. After loss of resistance was noted, negative aspiration for blood and CSF was confirmed. A 60 cm Medtronic percutaneous lead was inserted through the needle and slowly advanced in the epidural space under fluoroscopy. The lead was eventually placed at midline at the top of T10 vertebral body. The lead was then connected to allow for test stimulation. The patient reported stimulation covering the painful areas ( bilateral foot). The lead was sutured in place with a 2-0 silk suture. A sterile dressing was applied. The patient was transferred to the postoperative area in stable condition. The patient's postoperative neurological examination showed no evidence of lower extremity weakness with normal bowel and bladder function. Altagracia Conway was taken to the Post-block Recovery Area for further observation. Simple intraoperative stimulation was conducted intraoperatively X 10 minutes Complex postoperative stimulation was conducted postoperatively X 30 minutes Complications: None. Estimated Blood Loss: None. Drains: None. Implantable Device: Percutaneous 60 cm Medtronic trial lead in the epidural space Specimen: None. I, Jordan Ortega DO, performed the entire procedure. PLAN: 1) S/P Medtronic SCS Trial Today. 2) RTC in 1 week for lead removal and evaluation of the trial 3) Keflex 500mg QID x 7 days 4) The treatment plan was discussed with the patient. Post procedure instructions were reviewed and the patient voiced understanding. Altagracia Conway was taken to recovery room in a stable condition. Jordan Ortega, DO Pain Management October 30, 2022 Normal [facility] Comprehensive metabolic 2000 panelon 10-19-2022 Albumin [Mass/Vol] 4.6 g/dL Normal 3.9-4.9 [facility] Comment on above: Order Comment: Speci men Type: BLOOD SPECIMEN Ordering Facility: [facility] Address: [address] [address] Performed By: #### 2 4323-8 #### [facility] CLIA [id number] [address] [place] [address] [place] ALP [Catalytic activity/Vol] 192 U/L High 38-113 [facility] Comment on above: Order Comment: Speci men Type: BLOOD SPECIMEN Ordering Facility: [facility] Address: [address] [address] Performed By: #### 2 4323-8 #### [facility] CLIA [id number] [address] [place] [address] [place] ALT [Catalytic activity/Vol] 32 U/L Normal 10-54 [facility] Comment on above: Order Comment: Speci men Type: BLOOD SPECIMEN Ordering Facility: [facility] Address: [address] [address] Performed By: #### 2 4323-8 #### [facility] CLIA [id number] [address] [place] [address] [place] Anion gap [Moles/Vol] 13 mmol/L Normal 9-18 [facility] Comment on above: Order Comment: Speci men Type: BLOOD SPECIMEN Ordering Facility: [facility] Address: [address] [address] Performed By: #### 2 4323-8 #### [facility] CLIA [id number] [address] [place] [address] [place] AST [Catalytic activity/Vol] 30 U/L Normal 14-40 [facility] Comment on above: Order Comment: Speci men Type: BLOOD SPECIMEN Ordering Facility: [facility] Address: [address] [address] Performed By: #### 2 4323-8 #### [facility] CLIA [id number] [address] [place] [address] [place] Bilirubin [Mass/Vol] 0.2 mg/dL Normal 0.2-1.3 [facility] Comment on above: Order Comment: Speci men Type: BLOOD SPECIMEN Ordering Facility: [facility] Address: [address] [address] Performed By: #### 2 432-8 #### [facility] CLIA [id number] [address] [place] [address] [place] Calcium [Mass/Vol] 9.8 mg/dL Normal 8.5-10.2 [facility] Comment on above: Order Comment: Speci men Type: BLOOD SPECIMEN Ordering Facility: [facility] Address: [address] [address] Performed By: #### 2 432-8 #### [facility] CLIA [id number] [address] [place] [address] [place] Chloride [Moles/Vol] 101 mmol/L Normal 97-105 [facility] Comment on above: Order Comment: Speci men Type: BLOOD SPECIMEN Ordering Facility: [facility] Address: [address] Performed By: #### 2 4323-8 #### [facility] CLIA [id number] [address] [place] [address] [place] CO2 [Moles/Vol] 22 mmol/L Normal 22-30 [facility] Comment on above: Order Comment: Speci men Type: BLOOD SPECIMEN Ordering Facility: [facility] Address: [address] Performed By: #### 2 4323-8 #### [facility] CLIA [id number] [address] [place] [address] [place] Creatinine [Mass/Vol] 1.68 mg/dL High 0.73-1.22 [facility] Comment on above: Order Comment: Jayce aguilar Type: BLOOD SPECIMEN Ordering Facility: [facility] Address: [address] [id number] Performed By: #### 2 4323-8 #### [facility] CLIA [id number] [address] [place] [address] [place] ESTIMATED GLOMERULAR FILTRATION RATE 44 mL/min/1.73m??? Low >=60 [facility] Comment on above: Order Comment: Jayce aguilar Type: BLOOD SPECIMEN Ordering Facility: [facility] Address: [address] Result Comment: Elizabeth mated Glomerular Filtration Rate (eGFR) is calculated using the 2020 CKD-EPI creatinine equation. This equation utilizes serum creatinine, sex, and age as parameters. The creatinine assay has traceable calibration to isotope dilution-mass spectrometry. Refer to KDIGO guidelines for clinical interpretation. In patients with unstable renal function, e.g. those with acute kidney injury, the eGFR may not accurately reflect actual GFR. Performed By: #### 2 4323-8 #### [facility] CLIA [id number] [address] [place] [address] [place] Glucose [Mass/Vol] 230 mg/dL High 74-99 [facility] Comment on above: Order Comment: Jayce aguilar Type: BLOOD SPECIMEN Ordering Facility: [facility] Address: [address] [id number] Result Comment: The [place] Diabetes Association (ADA) provides guidance for cutoff values for fasting glucose and random glucose. The ADA defines fasting as no caloric intake for at least 8 hours. Fasting plasma glucose results between 100 to 125 mg/dL indicate increased risk for diabetes (prediabetes). Fasting plasma glucose results greater than or equal to 126 mg/dL meet the criteria for diagnosis of diabetes. In the absence of unequivocal hyperglycemia, results should be confirmed by repeat testing. In a patient with classic symptoms of hyperglycemia or hyperglycemic crisis, random plasma glucose results greater than or equal to 200 mg/dL meet the criteria for diagnosis of diabetes. Reference: Standards of Medical Care in Diabetes 2016, [place] Diabetes Association. Diabetes Care. 2016.39(Suppl 1). Performed By: #### 2 4323-8 #### [facility] IA [id number] [address] [place] [address] [place] Potassium [Moles/Vol] 5.0 mmol/L Normal 3.7-5.1 [facility] Comment on above: Order Comment: Speci men Type: BLOOD SPECIMEN Ordering Facility: [facility] Address: [address] [address] Performed By: #### 2 4323-8 #### [facility] IA [id number] [address] [place] [address] [place] Protein [Mass/Vol] 8.0 g/dL Normal 6.3-8.0 [facility] Comment on above: Order Comment: Speci men Type: BLOOD SPECIMEN Ordering Facility: [facility] Address: [address] [address] Performed By: #### 2 4323-8 #### [facility] IA [id number] [address] [place] [address] [place] Sodium [Moles/Vol] 136 mmol/L Normal 136-144 [facility] Comment on above: Order Comment: Speci men Type: BLOOD SPECIMEN Ordering Facility: [facility] Address: [address] [address] Performed By: #### 2 4323-8 #### [facility] IA [id number] [address] [place] [address] [place] Urea nitrogen [Mass/Vol] 45 mg/dL High 9-24 [facility] Comment on above: Order Comment: Speci men Type: BLOOD SPECIMEN Ordering Facility: [facility] Address: [address] [address] Performed By: #### 2 4323-8 #### [facility] IA [id number] [address] [place] [address] [place] Albumin [Mass/Vol] 4.6 g/dL 3.9 - 4.9 g/dL [facility] ALP [Catalytic activity/Vol] 192 U/L High 38 - 113 U/L [facility] ALT [Catalytic activity/Vol] 32 U/L 10 - 54 U/L [facility] Anion gap [Moles/Vol] 13 mmol/L 9 - 18 mmol/L [facility] AST [Catalytic activity/Vol] 30 U/L 14 - 40 U/L [facility] Bilirubin [Mass/Vol] 0.2 mg/dL 0.2 - 1 .3 mg/dL [facility] Calcium [Mass/Vol] 9.8 mg/dL 8.5 - 10. 2 mg/dL [facility] Chloride [Moles/Vol] 101 mmol/L 97 - 10 5 mmol/L [facility] CO2 [Moles/Vol] 22 mmol/L 22 - 30 mmol/L [facility] Creatinine [Mass/Vol] 1.68 mg/dL High 0.73 - 1.22 mg/dL [facility] Estimated Glomerular Filtration Rate 44 mL/min/1.73m Low >=60 mL/min/1.73m [facility] Glucose [Mass/Vol] 230 mg/dL High 74 - 99 mg/dL [facility] Potassium [Moles/Vol] 5.0 mmol/L 3.7 - 5.1 mmol/L [facility] Protein [Mass/Vol] 8.0 g/dL 6.3 - 8.0 g/dL [facility] Sodium [Moles/Vol] 136 mmol/L 136 - 144 mmol/L [facility] Urea nitrogen [Mass/Vol] 45 mg/dL High 9 - 24 mg/dL [facility] HISTORY PHYSICALon HISTORY PHYSICAL HNO ID: [id number] Author: Teetee Yang PA-C Service: ? Author Type: Physician Field Cashier Type: HANDP Filed: 10/22/2022 8:22 AM Note Text: HISTORY AND PHYSICAL EXAMINATION SERVICE DATE: 10/19/2022 SERVICE TIME: 10:05 AM PRIMARY CARE PHYSICIAN: Tiki Dockery REASON FOR VISIT: Altagracia Conway is a 67 year old male who is scheduled for Procedure(s) (LRB): PERCUTANEOUS IMPLANT LEAD NEUROSTIM EPIDURAL TRIAL (N/A) ELECTRONIC ANALYSIS IMPLANTED NEUROSTIMULATOR COMPLEX SPINAL CORD OR PERIPHERAL NERVE W/PROGRAMMING (N/A) at the request of Dr. Jordan Ortega for consultation. My final recommendation will be communicated back to the requesting physician by way of shared medical record or letter. The patient has the following: ACTIVE PROBLEM LIST Acute Hepatitis C Without Mention of Hepatic Coma(070.51) Senile Cataract, Unspecified Type 2 Diabetes Mellitus With Diabetic Polyneuropathy, With Long-Term Current Use of Insulin (Hcc) Chemotherapy-Induced Neuropathy (Hcc) Bilateral Foot Pain Bilateral Hand Pain Recurrent Major Depression in Remission (Hcc) History of Amputation of Right Great Toe (Hcc) Hypertension Hyperlipidemia Current Smoker Obesity (Bmi 30-39.9) Malignant Neoplasm of Pancreas (Hcc) Stage 3 Chronic Kidney Disease (Hcc) Chronic Obstructive Pulmonary Disease (Hcc) Subjective CHIEF COMPLAINT: Pain disorder with related psychological factor, other chronic pain HPI: Patient is a 67 year old male presenting to pre-anesthesia consultation. Patient has been experiencing worsening bilateral foot pain for the last couple months. Pain is worse at night but then at sometimes can last all day. Right is worse than left. He has been diagnosed with pain disorder with related psychological factors and other chronic pain and has been recommended for the above surgery. History reviewed. No pertinent past medical history. PAST SURGICAL HISTORY Procedure Laterality Date AMPUTATION TOE,MT-P JT Right big toe amputation COLONOSCOPY SCREENING PAST SURGICAL HISTORY OF 2016 whipple surgery for pancreatic cancer XCAPSL CTRC RMVL INSJ IO LENS PROSTH W/O ECP 11/04/2009 Performed by MARK BROWN at [facility] XCAPSL CTRC RMVL INSJ IO LENS PROSTH W/O ECP 11/11/2009 Performed by MARK BROWN at [facility] FAMILY HISTORY Problem Relation Age of Onset Pancreatic Cancer Mother Pancreatic Cancer Father SOCIAL HISTORY: Social History Tobacco Use Smoking status: Every Day Packs/day: 0.50 Years: 30.00 Additional pack years: 0.00 Total pack years: 15.00 Types: Cigarettes Smokeless tobacco: Never Substance Use Topics Alcohol use: Not Currently Drug use: Yes Types: Marijuana Comment: smoke- daily MEDICATIONS: Prior to Admission medications as of 10/19/22 1026 Medication Sig Last Dose Taking insulin degludec (TRESIBA FLEXTOUCH U-100) 100 unit/mL (3 mL) injection pen 34 Applicators by abdominal subcutaneous route once daily. Taking Yes blood-glucose sensor (DEXCOM G7 SENSOR [facility]) 1 Each. Taking Yes insulin aspart U-100 (NOVOLOG FLEXPEN U-100 INSULIN) 100 unit/mL (3 mL) 60 units in morning, 60 units for lunch, and sliding scale for dinner Taking Yes amlodipine besylate (AMLODIPINE ORAL) Take 10 mg by mouth once daily. Taking Yes levomilnacipran (FETZIMA) 120 mg ER capsule Take 160 mg by mouth once daily. Taking Yes tamsulosin (FLOMAX) 0.4 mg Take 0.4 mg by mouth once daily. Taking Yes furosemide (LASIX) 20 mg tablet Take 20 mg by mouth once daily. Taking Yes mirtazapine (REMERON) 45 mg tablet Take 45 mg by mouth daily at bedtime. Taking Yes pregabalin (LYRICA) 150 mg capsule Take 150 mg by mouth. Weaning off medication Taking Yes CREON 36,000-114,000- 180,000 unit delayed release capsule Take 2 capsules by mouth three times daily. Taking Yes budesonide-formoterol (SYMBICORT) 160-4.5 mcg/actuation inhaler Inhale 2 Puffs as instructed twice daily. Taking Yes albuterol HFA (PROVENTIL HFA, VENTOLIN HFA) 90 mcg/actuation inhaler Inhale 2 Puffs as instructed every 4 hours as needed for Wheezing/Shortness of Breath. Taking Yes lisinopril(PRINIVIL 20 MG TAB) Take one(1) tablet daily. Taking Yes atorvastatin calcium(LIPITOR 10 MG TAB) Take one(1) tablet daily. Taking Yes lorazepam(ATIVAN 1 MG TAB) Take by mouth. BID weaning off Taking Yes No medication comments found. CURRENT ALLERGIES: ALLERGIES Allergen Reactions Pollen runny itchy eyes and nose COVID VACCINATION STATUS: Fully vaccinated REVIEW OF SYSTEMS: PAIN ASSESSMENT: General: No weight loss, malaise or fevers. Neuro: +chemo-induced neuropathy- in bilateral hands, bilateral leg weakness since fall in April 2022. Negative for TIA's Headaches Seizures Respiratory: +current smoker (cigarettes, marijuana) questionable COPD, chronic smoker's cough, chronic [place] with moderate exertion Negative for Asthma, Home O2, Pneumonia within 6 weeks (more content not included)... Normal [facility] HbA1c (Bld)on 10-19-2022 Average glucose Estimated from glycated hemoglobin (Bld) [Mass/Vol] 171 mg/dL [facility] HbA1c (Bld) [Mass fraction] 7.6 % High 4.3 - 5.6 % [facility] Average glucose Estimated from glycated hemoglobin (Bld) [Mass/Vol] 171 mg/dL Normal [facility] Comment on above: Order Comment: Jayce aguilar Type: BLOOD SPECIMEN Ordering Facility: [facility] Address: [address] [address] Result Comment: eAG: (Estimated average glucose) is a calculated value from HgbA1c and is office services representative of the average blood glucose level in the last 2-3 month period. Performed By: #### 5 5454-3 #### [facility] CLIA [id number] [address] [place] [address] [place] HbA1c (Bld) [Mass fraction] 7.6 % High 4.3-5.6 [facility] Comment on above: Order Comment: Jayce aguilar Type: BLOOD SPECIMEN Ordering Facility: [facility] Address: [address] [place] [address] Result Comment: [place] Diabetes Association guidelines indicate that patients with HgbA1c in the range 5.7-6.4% are at increased risk for development of diabetes, and intervention by lifestyle modification may be beneficial. HgbA1c greater or equal to 6.5% is considered diagnostic of diabetes. Performed By: #### 5 5454-3 #### [facility] CLIA [id number] [address] [facility] [place] 09-18-2022 [facility] Telephone ([place]) ALTAGRACIA CONWAY ([id number]) 1955 M [place] Date Time Provider Department 09/18/22 JORDAN ORTEGA During your visit today, we recorded the following information about you: Aileen Fox 09/18/2022 10:34 AM Signed SCS TRIAL [employer] JORDAN THINNERS MARCOS Spoke to patient. Patient declines scheduling at this time. Just started back to work at a new job. Aileen Fox 10/03/2022 8:37 AM Signed SCS TRIAL [employer] ALTAGRACIA CONWAY [id number] JORDAN 10/30 - PAT SCHEDULED - [facility] REP EMAILED - [facility] NOTIFIED - ORDER PLACED -THINNERS +DM Patient was made aware that the ASC will call the day prior to scheduled procedure between the hours of 12 and 4 pm to advise patient of arrival time the day of procedure. Patient was advised that they will require a hog driver on the day of their procedure, and procedure will be cancelled if they arrive without a responsible adult to transport them home from the procedure. Patient advised that all medication management instructions prior to procedure will need addressed by clinical staff. Patient expresses understanding with no further questions or concerns at this time. Patient transferred to [facility] scheduling line to authorize procedure, or greendcat appointment made. Aileen Fox 10/03/2022 8:37 AM Signed Addended by: AILEEN FOX on: 10/03/2022 08:37 AM Modules accepted: Orders Sobia Mosquera LPN 10/03/2022 9:25 AM Signed Called patient, verified name and , regarding SCS procedure on 10/30/22. Patient instructed: 1) Not to take any ASA or ASA containing medications for 10 days prior to procedure (including NSAIDS: Celebrex, Mobic or Naproxen and other OTC NSAIDS such as Ibuprofen or Aleve). 2) To buy Hibiclens OTC and shower with it the evening before and morning of the procedure being careful to avoid eyes, nose and mouth. 3) To notify the office for any signs of any kind of infection prior to the procedure as the procedure will need to be rescheduled. Patient is to follow the above instructions for SCS trial and SCS implant procedure. Patient verbalized understanding of instructions given. Patient will need scheduled for 1 week office f/u (in 30 min slot) with [employer] after SCS trial or SCS Implant. Patient scheduled for an appt on 11/07/22 at 5:00 with at the [facility]. Please notify the SCS Rep of the post op appt. 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 Weaning off medication - CREON 36,000-114,000- 180,000 unit delayed release capsule Take 2 capsules by mouth three times daily. - ARIPiprazole (ABILIFY) 2 mg tablet Take 2 mg by mouth once daily. - budesonide-formoterol (SYMBICORT) 160-4.5 mcg/actuation inhaler Inhale 2 Puffs as instructed twice daily. - albuterol HFA (PROVENTIL HFA, VENTOLIN HFA) 90 mcg/actuation inhaler Inhale 2 Puffs as instructed every 4 hours as needed for Wheezing/Shortness of Breath. - lisinopril(PRINIVIL 20 MG TAB) Take one(1) tablet daily. - atorvastatin calcium(LIPITOR 10 MG TAB) Take one(1) tablet daily. - lorazepam(ATIVAN 1 MG TAB) Take by mouth. 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, T*08/13/2022 Bilateral foot pain [M79.671, M79.672] 08/13/2022 Bilateral hand pain [M79.641, M79.642] 08/13/2022 Recurrent major depression in remission (HCC) [*09/07/2022 History of amputation of right great toe (HCC) *09/07/2022 Encounter Status:Closed by AILEEN FOX on 09/18/22 [facility] CNOVon 09-07-2022 CNOV Office Visit (PAINCR ) ALTAGRACIA CONWAY ([id number]) 1955 [facility] Date Time Provider Department 09/07/22 1:00 PM GURU BYRD During your visit today, we recorded the following information about you: Guru Osorio, PhD 09/11/2022 5:01 PM Signed [facility] PAIN MANAGEMENT BEHAVIORAL MEDICINE EVALUATION REFERRING PHYSICIAN: Jordan Ortega DO ATTENDING PHYSICIAN: Guru Osorio, PHD Altagracia Dinesh Conway PATIENT TYPE: [facility] : 1955 DATE OF SERVICE: September 07, 2022 IDENTIFYING INFORMATION Altagracia Conway is a 66 year old male from [place], [place] who was referred for evaluation by Jordan Ortega DO to determine if he would be an appropriate candidate for spinal cord stimulator. 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 The report reflects the likelihood of underlying diabetic neuropathy aggravated by chemotherapy. His pain is in his feet and his hands, but he understands that the stimulator will just be for his lower body and extremities. He reports his pain to be a 10 on a typical day, especially at night, but there are times when he has no pain at all. He states his pain is there daily, but does not start to bother him until afternoon. He describes it as feeling like a pair of pliers squeezing and letting go and repeating the process ad infinitum. Lying down, trying to go to sleep exacerbate his pain, adding it just comes on when it wants to. He has not found anything yet to provide relief except walking and he may walk for hours in his apartment to try to relieve his pain. CIRCUMSTANCES OF ONSET He reports his pain began 2 years ago after chemotherapy for pancreatic cancer, with symptoms worsening ever since. He states he is status post pancreatectomy and chemotherapy. He did have pain in his feet for 5 years prior to chemotherapy, but it was exacerbated by the process. He states that worsens as he ages. OTHER PHYSICAL CONDITIONS There are no active hospital problems to display for this patient. No past medical history on file. PAST SURGICAL HISTORY Procedure Laterality Date XCAPSL CTR RMVL INSJ IO LENS PROSTH W/O ECP 11/04/09 Performed by MARK BROWN at [facility] XCAPSL CTR RMVL INSJ IO LENS PROSTH W/O ECP 11/11/09 Performed by MARK BROWN at [facility] RELEVANT MEDICAL HISTORY He has had his right great toe amputated. He has just begun treatment with Dr. Ortega. He has not had physical therapy, nor has he seen a psychologist nor psychiatrist for pain management; however he has a history of depression for which she sees a psychiatrist every 3 months at [facility]. He has taken medication without relief and reports that no treatment so far has helped. CURRENT MEDICATIONS Current Outpatient Medications Medication Sig Dispense Refill pregabalin (LYRICA) 150 mg capsule Take 150 mg by mouth. Weaning off medication CREON 36,000-114,000- 180,000 unit delayed release capsule Take 2 capsules by mouth three times daily. ARIPiprazole (ABILIFY) 2 mg tablet Take 2 mg by mouth once daily. budesonide-formoterol (SYMBICORT) 160-4.5 mcg/actuation inhaler Inhale 2 Puffs as instructed twice daily. albuterol HFA (PROVENTIL HFA, VENTOLIN HFA) 90 mcg/actuation inhaler Inhale 2 Puffs as instructed every 4 hours as needed for Wheezing/Shortness of Breath. lisinopril(PRINIVIL 20 MG TAB) Take one(1) tablet daily. 0 atorvastatin calcium(LIPITOR 10 MG TAB) Take one(1) tablet daily. 0 lorazepam(ATIVAN 1 MG TAB) Take by mouth. BID weaning off 0 No current facility-administered medications for this visit. ALLERGIES ALLERGIES Allergen Reactions Pollen runny itchy eyes and nose SUBSTANCE USE He denies alcohol, caffeine, CBD oil consumption. He uses a bit of marijuana on occasion and does smoke with his smoking reduced to 1 pack every 3 days. He understands the impact smoking has on his pain and in particular neuropathy, but appears to be reluctant to quit. He denies any history of substance abuse. FAMILY HISTORY His mother at age 69 of pancreatic cancer as did his father at age 82. His parents had been together he states that he had a Whipple adding I'm cancer free. He had 5 brothers, all older, 3 , 2 living. 2 older sisters are , one just a week ago at age 87 of COVID. His siblings were much older and he did not grow up with them, but reports having a great relationship with his parents, with no history of being abused. He has been 7 years following 3 marriages, the first ending after just a year, the second lasting 16 years and producing 3 children now grown, all (more content not included)... Normal [facility] CNOVon 08-13-2022 CNOV Office Visit (PAINLN ) ALTAGRACIA CONWAY ([id number]) 1955 M [facility] Date Time Provider Department 08/13/22 10:30 AM JORDAN ORTEGA During your visit today, we recorded the following information about you: Pulse Weight Height 80/minute 111.1 kg 1.88 m Jordan Ortega DO 08/13/2022 12:04 PM Signed [facility] Initial Evaluation August 13, 2022 This appointment was requested by Dr Blas for my medical opinion regarding the evaluation and management of the patient's Altagracia Conway problems, and my final recommendations will be communicated to the requesting health care provider by way of the shared medical record for internal providers or letter via the [employer] Postal Service for external providers. SUBJECTIVE: Altagracia Dinesh Conway a 66 year old presents to [facility], accompanied by self only, was referred by Dr Blas for an initial evaluation for neuropathy of bilateral hands and feet. The pain is located in the bilateral hand and foot Distribution: bilateral feet pain is greater Started 2 years ago after chemo treatments (Pancreatic CA) and symptoms have been worsening. Characterized as burning, numbness, and tingling Currently the pain is a rated at a 9 on a scale of 0-10. Worst pain score is rated at 10 on a scale of 0-10. Best pain score is rated at 4 on a scale of 0-10. Aggravated by sitting and lying down. Mitigated by walking. Current treatments and response: Lyrica 150 mg once daily Response to previous treatments: None Alcohol Abuse - No Drug Abuse - No Current Anticoagulant Therapy: No Sleep Disturbance: Yes: Difficulty falling asleep. and Difficulty staying asleep. No past medical history on file. PAST SURGICAL HISTORY Procedure Laterality Date REMV CATARACT EXTRACAP,INSERT LENS 11/04/09 Performed by MARK BROWN at [facility] REMV CATARACT EXTRACAP,INSERT LENS 11/11/09 Performed by MARK BROWN at [facility] Social History Tobacco Use Smoking status: Every Day Packs/day: 0.50 Years: 30.00 Pack years: 15.00 Types: Cigarettes Substance Use Topics Alcohol use: Yes No family history on file. ALLERGIES Allergen Reactions Pollen runny itchy eyes and nose Current Outpatient Medications Medication Sig metFORMIN (GLUCOPHAGE) 1,000 mg tablet Take 2 tablets by mouth once daily. ARIPiprazole (ABILIFY) 2 mg tablet Take 2 mg by mouth once daily. FLUoxetine HCl (PROZAC) 40 mg capsule Take 40 mg by mouth once daily. budesonide-formoterol (SYMBICORT) 160-4.5 mcg/actuation inhaler Inhale 2 Puffs as instructed twice daily. liraglutide (VICTOZA 2-CATALINA) 0.6 mg/0.1 mL (18 mg/3 mL) pnij Inject 1.2 mg subcutaneously twice daily. albuterol HFA (PROVENTIL HFA, VENTOLIN HFA) 90 mcg/actuation inhaler Inhale 2 Puffs as instructed every 4 hours as needed for Wheezing/Shortness of Breath. lisinopril(PRINIVIL 20 MG TAB) Take one(1) tablet daily. atorvastatin calcium(LIPITOR 10 MG TAB) Take one(1) tablet daily. lorazepam(ATIVAN 1 MG TAB) three tabs before bed aspirin(ECOTRIN LOW STRENGTH 81 MG TAB) Take one (1) tablet daily. No current facility-administered medications for this visit. Review of Symptoms: GENERAL:No weight loss, malaise or fevers., SEE HPI HEENT:Negative for frequent or significant headaches, No changes in hearing or vision, no nose bleeds or other nasal problems NECK:Negative for lumps, goiter, pain and significant neck swelling RESPIRATORY: Negative for cough, wheezing or shortness of breath. CARDIOVASCULAR: Negative for chest pain, leg swelling and palpitations GASTROINTESTINAL: Negative for abdominal discomfort, blood in stools or black stools or change in bowel habits GENITOURINARY: No history of dysuria, frequency or incontinence BELLSTAFF: Negative for abnormal vaginal bleeding, abnormal vaginal discharge MUSCULOSKELETAL:bilater al hand a feet NEUROLOGIC:Negative for focal numbness or weakness, headaches and dizziness or syncope. SKIN:Negative for lesions, rash, and itching. PSYCHIATRIC: Negative for sleep disturbance, mood disorder and recent psychosocial stressors. HEMATOLOGIC/LYMPHATIC/I MMUNOLOGIC:Negative for prolonged bleeding, bruising easily or swollen nodes. ENDOCRINE: Negative for cold or heat intolerance, polyuria, polydipsia and goiter. The remainder of the ROS was negative. PREVIOUS TREATMENTS LASTING SIX WEEKS IN THE LAST SIX MONTHS Active conservative therapy lasting 6 weeks in the last six months (see below) 1. Physical therapy: No 2. Home exercise program after PT: No 3. Occupational therapy: No 4. A physician supervised home exercise program (HEP): No 5. Camp Director: No Passive conservative therapy lasting 6 weeks in the last six months (see below) 1. Medical devises: No 2. Acupuncture: No 3. Tens unit: No 4. Prescription pain medication: N (more content not included)... Normal [facility] MRI Brain w/oon 07-24-2022 MRI Brain w/o HISTORY: Imbalance. History of falls. TECHNIQUE: Routine brain MRI protocol without contrast. CONTRAST: None. COMPARISON: None. RESULT: Acute Change: There is no evidence of restricted diffusion to suggest an acute infarct. Hemorrhage: No evidence of prior parenchymal hemorrhage. Mass Lesion/ Mass Effect: No evidence of an intracranial mass or extra-axial fluid collection. No significant mass effect. Chronic Change: Scattered patchy areas of increased T2 and FLAIR signal are present in the supratentorial white matter which is a nonspecific finding but likely represents mild chronic microvascular ischemia. Parenchyma: There is mild generalized parenchymal volume loss. Ventricles: Normal caliber and morphology. Skull Base: Hypothalamic and pituitary region are grossly normal. Craniocervical junction is normal. No significant marrow replacement process. Vasculature: Major intracranial arterial structures, and dural venous sinuses show typical flow void, suggesting patency. Other: The visualized paranasal are clear. Trace fluid in the mastoid air cells bilaterally. Post surgical changes involving the orbits, otherwise unremarkable. The extracranial soft tissues are unremarkable. IMPRESSION: No acute intracranial process. Scattered patchy areas of increased T2 and FLAIR signal are present in the supratentorial white matter which is a nonspecific finding but likely represents mild chronic microvascular ischemia. Trace bilateral mastoid effusions. Report reported and signed by Shin Whiteside on 07/24/2022 1405 Normal [facility] XR Chest 2 Views*on 07-06-19 23 XR Chest 2 Views* CLINICAL HISTORY: Wheezing and productive cough with clear sputum for 6 months. History of pancreatic cancer with chemotherapy. COMPARISON: None. TECHNIQUE: Upright PA and lateral views of the chest were obtained. FINDINGS: Heart is normal in size. Lungs are clear and well expanded. No pleural effusion or pneumothorax. There are moderate degenerative changes in the spine. The right side [id number] catheter extends to the SVC. IMPRESSION: NO ACUTE CARDIOPULMONARY ABNORMALITY. Report reported and signed by Rekha Campbell on 07/05/2022 1510 Normal [facility] Albumin [Mass/volume] in Bod y fluidOrdered By: Maura Sands on 05-15-2022 Albumin (Body fld) [Mass/Vol] 3.9 g/dL 3.2-5.5 [facility] Alkaline phosphatase [Enzyma tic activity/volume] in Serum or PlasmaOrdered By: Maura Sands on 05-15-2022 ALP [Catalytic activity/Vol] 204 U/L 32-92 [facility] Aspartate aminotransferase [ Enzymatic activity/volume] in Serum or PlasmaOrdered By: Maura Sands on 05-15-2022 AST [Catalytic activity/Vol] 48 U/L 10-42 [facility] Basophils Auto (Bld) [#/Vol] Ordered By: Maura Sands on 05-15-2022 Basophils (Bld) [#/Vol] 0.1 10*3/uL 0.0-0.2 [facility] Basophils/100 WBC Auto (Bld) Ordered By: Maura Sands on 05-15-2022 Basophils/100 WBC (Bld) 1.0 % . F [facility] Bilirubin.total [Mass/volume ] in Serum or PlasmaOrdered By: Maura Sands on 05-15-2022 Bilirubin [Mass/Vol] 0.4 mg/dL 0.3-1.2 [facility] Calcium [Mass/volume] in Ser um or PlasmaOrdered By: Maura Sands on 05-15-2022 Calcium [Mass/Vol] 9.5 mg/dL 8.2-10.2 [facility] Carbon dioxide, total [Moles /volume] in Serum or PlasmaOrdered By: Maura Sands on 05-15-2022 CO2 [Moles/Vol] 19.6 mmol/L 22.0-30.0 [facility] Chloride [Moles/volume] in S iqra or PlasmaOrdered By: Maura Sands on 05-15-2022 Chloride [Moles/Vol] 107 mmol/L 95-114 [facility] Creatinine and Glomerular fi ltration rate.predicted panel (S/P/Bld)Ordered By: Maura Sands on 05-15-2022 Creatinine [Mass/Vol] 1.52 mg/dL 0.64-1.27 [facility] Eosinophils Auto (Bld) [#/Vo l]Ordered By: Maura Sands on 05-15-2022 Eosinophils (Bld) [#/Vol] 0.8 10*3/uL 0.0-0.45 [facility] Eosinophils/100 WBC Auto (Bl d)Ordered By: Maura Sands on 05-15-2022 Eosinophils/100 WBC (Bld) 7.4 % . [facility] Erythrocyte distribution wid th Auto (RBC) [Ratio]Ordered By: Maura Sands on 05-15-2022 Erythrocyte distribution width (RBC) [Ratio] 14.1 % 12.0-14.8 [facility] Globulin Calc (S) [Mass/Vol] Ordered By: Maura Sands on 05-15-2022 Globulin (S) [Mass/Vol] 3.6 g/dL F [facility] Glucose Glucometer (BldC) [M ass/Vol]Ordered By: Margaret Delgado on 05-15-2022 Glucose [Mass/Vol] 67 mg/dL [facility] Comment on above: Random Glucose Refer ence Range is dependent on time and content of last meal. Glucose of more than 200 mg/dL in a nonstressed, ambulatory subject supports the diagnosis of Diabetes Mellitus. Glucose [Mass/Vol] Capillary blood gluc ose measurement by glucometer (mass/volume) [facility] Comment on above: Random Glucose Refer ence Range is dependent on time and content of last meal. Glucose of more than 200 mg/dL in a nonstressed, ambulatory subject supports the diagnosis of Diabetes Mellitus. Glucose [Mass/volume] in Ser um or PlasmaOrdered By: Maura Sands on 05-15-2022 Glucose [Mass/Vol] 44 mg/dL 70-100 [facility] Comment on above: Results calledat 105 6 on 05/15/22 ADA recommended reference rangeRandom Glucose Reference Range is dependent on time and content of last meal. Glucose of more than 200 mg/dL in a nonstressed, ambulatory subject supports the diagnosis of Diabetes Mellitus. Hematocrit Auto (Bld) [Volum e fraction]Ordered By: Maura Sands on 05-15-2022 Hematocrit (Bld) [Volume fraction] 34.4 % 38.8-50.0 [facility] Hemoglobin [Mass/volume] in BloodOrdered By: Maura Sands on 05-15-2022 Hemoglobin (Bld) [Mass/Vol] 11.6 g/dL 13.0-17.0 [facility] Laboratory - Chemistry and C hemistry - challengeOrdered By: Maura Sands on 05-15-2022 GFR/1.73 sq M.predicted MDRD (S/P/Bld) [Vol rate/Area] 50.223 mL/min/{1.73_m2} [facility] Leukocytes [#/volume] correc lamont for nucleated erythrocytes in Blood by Automated counOrdered By: Maura Sands on 05-15-2022 WBC corrected for nucl RBC Auto (Bld) [#/Vol] 10.5 10*3/uL 4.1-10.5 [facility] Lymphocytes Auto (Bld) [#/Vo l]Ordered By: Maura Sands on 05-15-2022 Lymphocytes (Bld) [#/Vol] 3.0 10*3/uL 1.00-4.8 [facility] Lymphocytes/100 WBC Auto (Bl d)Ordered By: Maura Sands on 05-15-2022 Lymphocytes/100 WBC (Bld) 28.8 % . [facility] MCH Auto (RBC) [Entitic mass ]Ordered By: Maura Sands on 05-15-2022 MCH (RBC) [Entitic mass] 29.6 pg 27.5-35.2 [facility] MCHC Auto (RBC) [Mass/Vol]Or dered By: Maura Sands on 05-15-2022 MCHC (RBC) [Mass/Vol] 33.7 g/dL 32.5-35.6 [facility] MCV Auto (RBC) [Entitic vol] Ordered By: Maura Sands on 05-15-2022 MCV (RBC) [Entitic vol] 87.9 fL 83.5-101 F [facility] Monocytes Auto (Bld) [#/Vol] Ordered By: Maura Sands on 05-15-2022 Monocytes (Bld) [#/Vol] 0.8 10*3/uL 0.0-0.8 [facility] Monocytes/100 WBC Auto (Bld) Ordered By: Maura Sands on 05-15-2022 Monocytes/100 WBC (Bld) 8.0 % . F [facility] Neutrophils Auto (Bld) [#/Vo l]Ordered By: Maura Sands on 05-15-2022 Neutrophils (Bld) [#/Vol] 5.8 10*3/uL 1.8-7.7 [facility] Neutrophils/100 WBC Auto (Bl d)Ordered By: Maura Sands on 05-15-2022 Neutrophils/100 WBC (Bld) 54.8 % . [facility] No Panel InformationOrdered By: Maura Sands on 05-15-2022 Pharmacy Creatinine Clearance (Chem 63.10 [facility] Nucleated erythrocytes [Pres ence] in Blood by Automated countOrdered By: Maura Sands on 05-15-2022 Nucleated RBC Auto Ql (Bld) 0.1 /100{WBC} 0-0.5 [facility] Platelet mean volume Auto (B ld) [Entitic vol]Ordered By: Maura Sands on 05-15-2022 Platelet mean volume (Bld) [Entitic vol] 9.0 fL 6.6-10.1 [facility] Platelets Auto (Bld) [#/Vol] Ordered By: Maura Sands on 05-15-2022 Platelets (Bld) [#/Vol] 201 10*3/uL 150-450 [facility] Potassium [Moles/volume] in Serum or PlasmaOrdered By: Maura Sands on 05-15-2022 Potassium [Moles/Vol] 4.7 mmol/L 3.5-5.1 [facility] Protein [Mass/volume] in Ser um or PlasmaOrdered By: Maura Sands on 05-15-2022 Protein [Mass/Vol] 7.5 g/dL 6.1-7.9 [facility] RBC Auto (Bld) [#/Vol]Ordere d By: Maura Sands on 05-15-2022 RBC (Bld) [#/Vol] 3.91 10*6/uL 3.90-5.60 [facility] Serum or plasma alanine webster otransferase measurement without P-5'-P (enzymatic activiOrdered By: Maura Sands on 05-15-2022 ALT No additional P-5'-P [Catalytic activity/Vol] 53 U/L 10-60 [facility] Serum or plasma albumin/glob ulin mass ratioOrdered By: Maura Sands on 05-15-2022 Albumin/Globulin [Mass ratio] 1.1 {ratio} [facility] Serum or plasma anion gap de terminationOrdered By: Maura Sands on 05-15-2022 Anion gap [Moles/Vol] 14.1 mmol/L 6.0-15.0 [facility] Serum or plasma cancer antig en 19-9 measurement (units/volume)Ordered By: Maura Sands on 05-15-2022 Cancer Ag 19-9 Qn 22 [arb'U]/mL 0-35 [facility] Comment on above: [facility] El ectrochemiluminescence Immunoassay(ECLIA)Values obtained with different assay methods or kits cannotbe used interchangeably. Results cannot be interpreted asabsolute evidence of the presence or absence of malignantdisease.Performed at: [employer] [id number] Director: Flaco Pineda PhD, Phone: [phone] Sodium [Moles/volume] in Ser um or PlasmaOrdered By: Maura Sands on 05-15-2022 Sodium [Moles/Vol] 136 mmol/L 136-146 [facility] Urea nitrogen [Mass/volume] in Serum or PlasmaOrdered By: Maura Sands on 05-15-2022 Urea nitrogen [Mass/Vol] 47 mg/dL 9-23 [facility] WBC Auto (Bld) [#/Vol]Ordere d By: Maura Sands on 05-15-2022 WBC (Bld) [#/Vol] 10.5 10*3/uL 4.1-10.5 [facility] XR Ribs Lefton 03-31-2022 XR Ribs Left HISTORY: Fell inside bathtub yesterday. Left rib pain laterally mid to lower. FINDINGS: No fracture, dislocation, bone lesion. IMPRESSION: Negative left ribs. Report reported and signed by Darian Signmimi on 03/31/2022 1337 Normal [facility] Instrument Setter XR Wrist Complete Right*on 03-31-2022 XR Wrist Complete Right* HISTORY: Fell in bathtub yesterday. FINDINGS: No fracture, dislocation, bone lesion. IMPRESSION: Negative right wrist. Report reported and signed by Darian Signer on 03/31/2022 1339 Normal [facility] Specialist CHEMISTRYOrdered By: SYSTEM SYSTEM on 03-01-2022 Albumin [Mass/Vol] 4.3 g/dL Normal 3.3 - 5.0 gm/dL [facility] Albumin/Globulin [Mass ratio] 1.1 {ratio} Normal 1.1 - 2.2 [facility] ALP [Catalytic activity/Vol] 245 [iU]/d High 21 - 98 Int._Unit/L [facility] ALT No additional P-5'-P [Catalytic activity/Vol] 61 [iU]/d High 6 - 46 Int._Unit/L [facility] Anion gap [Moles/Vol] 10 mmol/L Normal 6 - 16 mEq/L [facility] AST [Catalytic activity/Vol] 63 [iU]/d High 5 - 43 Int._Unit/L [facility] Bilirubin [Mass/Vol] 0.4 mg/dL Normal 0.0 - 1 .1 mg/dL [facility] Calcium [Mass/Vol] 9.4 mg/dL Normal 8.9 - 11. 1 mg/dL [facility] Chloride [Moles/Vol] 102 mmol/L Normal 101 - 1 11 mmol/L [facility] Cholesterol [Mass/Vol] 219 mg/dL High 120 - 200 mg/dL [facility] Cholesterol in HDL [Mass/Vol] 35 mg/dL Invalid Interpretation Code [facility] Cholesterol in LDL [Mass/Vol] 136 mg/dL High <=129mg/dL [facility] Cholesterol in VLDL [Mass/Vol] 49 mg/dL High 7 - 40 mg/dL [facility] CO2 [Moles/Vol] 22 mmol/L Normal 21 - 31 mmol/L [facility] Creatinine [Mass/Vol] 2.0 mg/dL High 0.5 - 1.3 mg/dL [facility] GFR/1.73 sq M.predicted among blacks MDRD (S/P/Bld) [Vol rate/Area] 41 mL/min/1.73 m2 Low >=59mL/min/1 .73 m2 [facility] Chem S GFR/1.73 sq M.predicted among non-blacks MDRD (S/P/Bld) [Vol rate/Area] 34 mL/min/1.73 m2 Low >=59mL/min/1 .73 m2 [facility] Chem S Globulin (S) [Mass/Vol] 4.0 g/dL Normal 1.4 - 4.0 gm/dL [facility] Glucose [Mass/Vol] 189 mg/dL Normal 55 - 199 mg/dL [facility] Potassium [Moles/Vol] 4.9 mmol/L Normal 3.5 - 5.3 mmol/L [facility] Prostate specific Ag [Mass/Vol] 5.0 ng/mL High 0.1 - 3.5 ng/mL [facility] Protein [Mass/Vol] 8.3 g/dL High 6.0 - 7.8 gm/dL [facility] Sodium [Moles/Vol] 129 mmol/L Low 135 - 145 mmol/L [facility] Triglyceride [Mass/Vol] 244 mg/dL High <=149mg/dL [facility] Urea nitrogen [Mass/Vol] 56 mg/dL High 5 - 21 mg/dL [facility] Urea nitrogen/Creatinine [Mass ratio] 28 mg/mg High 10 - 20 [facility] CHEMISTRYOrdered By: Leonides Otero on 03-01-2022 Albumin DL <= 20 mg/L (U) [Mass/Vol] 48.2 microgram/mL High 0.0 - 19.0 mcg/mL [facility] Creatinine (U) [Mass/Vol] 120.5 mg/dL Invalid Interpretation Code [facility] Microalb/Cr Ratio 40.0 mg/gm Cr High 0.0 - 30. 0 mg/gm Cr [facility] HEMATOLOGYOrdered By: SYSTEM SYSTEM on 03-01-2022 Basophils/100 WBC (Bld) 1.2 % Normal 0.0 - 2.0 % [facility] Basophils/Leukocytes Auto (Bld) [Pure # fraction] 0.1 E9/L Normal 0.0 - 0.2 E9/L [facility] Eosinophils/100 WBC (Bld) 6.9 % Normal 0.0 - 8.0 % [facility] Eosinophils/Leukocytes Auto (Bld) [Pure # fraction] 0.7 E9/L High 0.0 - 0.5 E9/L [facility] Lymphocytes/100 WBC (Bld) 27.3 % Normal 14.0 - 50.0 % [facility] Lymphocytes/Leukocytes Auto (Bld) [Pure # fraction] 2.8 E9/L Normal 1.0 - 4.0 E9/L [facility] Monocytes/100 WBC (Bld) 6.2 % Normal 4.0 - 14.0 % [facility] Monocytes/Leukocytes Auto (Bld) [Pure # fraction] 0.6 E9/L Normal 0.2 - 1.0 E9/L [facility] Neutrophils/100 WBC (Bld) 58.4 % Normal 36.0 - 75.0 % [facility] Neutrophils/Leukocytes Auto (Bld) [Pure # fraction] 6.1 E9/L Normal 2.0 - 7.5 E9/L [facility] HEMATOLOGYOrdered By: Mary Bingham on 03-01-2022 Erythrocyte distribution width (RBC) [Ratio] 13.8 % Normal 10.9 - 14.2 % [facility] Hematocrit (Bld) [Volume fraction] 40.8 % Normal 37.7 - 49.0 % [facility] Hemoglobin (Bld) [Mass/Vol] 13.8 g/dL Normal 13.5 - 17.5 gm/dL [facility] MCH (RBC) [Entitic mass] 30.4 pg Normal 27.0 - 34.0 pg [facility] MCHC (RBC) [Mass/Vol] 33.7 g/dL Normal 31.4 - 36.0 gm/dL [facility] MCV (RBC) [Entitic vol] 90.0 fL Normal 80.0 - 100.0 fL [facility] Platelet mean volume (Bld) [Entitic vol] 9.4 fL Normal 6.4 - 10.8 fL [facility] Platelets (Bld) [#/Vol] 211.0 E9/L Normal 150. 0 - 500.0 E9/L [facility] RBC (Bld) [#/Vol] 4.5 E12/L Normal 4.3 - 5.9 E12/L [facility] WBC corrected for nucl RBC Auto (Bld) [#/Vol] 10.4 E9/L Normal 4.0 - 11.0 E9/L [facility] Basophils Auto (Bld) [#/Vol] Ordered By: Margaret Delgado on 02-14-2022 Basophils (Bld) [#/Vol] 0.1 10*3/uL 0.0-0.2 [facility] Basophils/100 WBC Auto (Bld) Ordered By: Margaret Delgado on 02-14-2022 Basophils/100 WBC (Bld) 1.2 % . F [facility] Body fluid albumin measureme nt (mass/volume)Ordered By: Margaret Delgado on 02-14-2022 Albumin (Body fld) [Mass/Vol] 3.8 g/dL 3.2-5.5 [facility] Creatinine and Glomerular fi ltration rate.predicted panel (S/P/Bld)Ordered By: Margaret Delgado on 02-14-2022 Creatinine [Mass/Vol] 1.60 mg/dL 0.64-1.27 [facility] Eosinophils Auto (Bld) [#/Vo l]Ordered By: Margaret Delgado on 02-14-2022 Eosinophils (Bld) [#/Vol] 0.4 10*3/uL 0.0-0.45 [facility] Eosinophils/100 WBC Auto (Bl d)Ordered By: Margaret Delgado on 02-14-2022 Eosinophils/100 WBC (Bld) 3.6 % . [facility] Erythrocyte distribution wid th Auto (RBC) [Ratio]Ordered By: Margaret Delgado on 02-14-2022 Erythrocyte distribution width (RBC) [Ratio] 13.9 % 12.0-14.8 [facility] Estimated glomerular filtrat ion rate (GFR) non- AmericanOrdered By: Margaret Delgado on 02-14-2022 GFR/1.73 sq M.predicted among non-blacks MDRD (S/P/Bld) [Vol rate/Area] 43 mL/Min [facility] GFR/1.73 sq M.predicted among non-blacks MDRD (S/P/Bld) [Vol rate/Area] Estimated glomerular filtration rate (GFR) non- [facility] Globulin Calc (S) [Mass/Vol] Ordered By: Margaret Delgado on 02-14-2022 Globulin (S) [Mass/Vol] 3.6 g/dL F [facility] Hematocrit Auto (Bld) [Volum e fraction]Ordered By: Margaret Delgado on 02-14-2022 Hematocrit (Bld) [Volume fraction] 38.7 % 38.8-50.0 [facility] Hemoglobin [Mass/volume] in BloodOrdered By: Margaret Delgado on 02-14-2022 Hemoglobin (Bld) [Mass/Vol] 13.1 g/dL 13.0-17.0 [facility] Leukocytes [#/volume] correc lamont for nucleated erythrocytes in Blood by Automated counOrdered By: Margaret Delgado on 02-14-2022 WBC corrected for nucl RBC Auto (Bld) [#/Vol] 11.4 10*3/uL 4.1-10.5 [facility] Lymphocytes Auto (Bld) [#/Vo l]Ordered By: Margaret Delgado on 02-14-2022 Lymphocytes (Bld) [#/Vol] 2.2 10*3/uL 1.00-4.8 [facility] Lymphocytes/100 WBC Auto (Bl d)Ordered By: Margaret Delgado on 02-14-2022 Lymphocytes/100 WBC (Bld) 19.2 % . [facility] MCH Auto (RBC) [Entitic mass ]Ordered By: Margaret Delgado on 02-14-2022 MCH (RBC) [Entitic mass] 30.2 pg 27.5-35.2 [facility] MCHC Auto (RBC) [Mass/Vol]Or dered By: Margaret Delgado on 02-14-2022 MCHC (RBC) [Mass/Vol] 33.8 g/dL 32.5-35.6 [facility] MCV Auto (RBC) [Entitic vol] Ordered By: Margaret Delgado on 02-14-2022 MCV (RBC) [Entitic vol] 89.4 fL 83.5-101 F [facility] Monocytes Auto (Bld) [#/Vol] Ordered By: Margaret Delgado on 02-14-2022 Monocytes (Bld) [#/Vol] 0.7 10*3/uL 0.0-0.8 [facility] Monocytes/100 WBC Auto (Bld) Ordered By: Margaret Delgado on 02-14-2022 Monocytes/100 WBC (Bld) 6.1 % . F [facility] Neutrophils Auto (Bld) [#/Vo l]Ordered By: Margaret Delgado on 02-14-2022 Neutrophils (Bld) [#/Vol] 8.0 10*3/uL 1.8-7.7 [facility] Neutrophils/100 WBC Auto (Bl d)Ordered By: Margaret Delgado on 02-14-2022 Neutrophils/100 WBC (Bld) 69.9 % . [facility] No Panel InformationOrdered By: Margaret Delgado on 02-14-2022 Estimated GFR () 53 mL/Min [facility] Comment on above: GFR estimated refere nce range: According to KDOQI guidelines, <60 ml/min/1.73m2 is sufficient to diagnose a patient with chronic kidney disease. Pharmacy Creatinine Clearance (Chem 58.76 [facility] Nucleated erythrocytes [Pres ence] in Blood by Automated countOrdered By: Margaret Delgado on 02-14-2022 Nucleated RBC Auto Ql (Bld) 0.1 /100{WBC} 0-0.5 [facility] Platelet mean volume Auto (B ld) [Entitic vol]Ordered By: Margaret Delgado on 02-14-2022 Platelet mean volume (Bld) [Entitic vol] 8.7 fL 6.6-10.1 [facility] Platelets Auto (Bld) [#/Vol] Ordered By: Margaret Delgado on 02-14-2022 Platelets (Bld) [#/Vol] 239 10*3/uL 150-450 [facility] Protein [Mass/volume] in Ser um or PlasmaOrdered By: Margaret Delgado on 02-14-2022 Protein [Mass/Vol] 7.4 g/dL 6.1-7.9 [facility] RBC Auto (Bld) [#/Vol]Ordere d By: Margaret Delgado on 02-14-2022 RBC (Bld) [#/Vol] 4.32 10*6/uL 3.90-5.60 [facility] Serum or plasma alanine webster otransferase measurement without P-5'-P (enzymatic activiOrdered By: Margaret Delgado on 02-14-2022 ALT No additional P-5'-P [Catalytic activity/Vol] 58 U/L 10-60 [facility] Serum or plasma albumin/glob ulin mass ratioOrdered By: Margaret Delgado on 02-14-2022 Albumin/Globulin [Mass ratio] 1.1 {ratio} [facility] Serum or plasma alkaline queenie sphatase measurement (enzymatic activity/volume)Ordered By: Margaret Delgado on 02-14-2022 ALP [Catalytic activity/Vol] 186 U/L 32-92 [facility] Serum or plasma anion gap de terminationOrdered By: Margaret Delgado on 02-14-2022 Anion gap [Moles/Vol] 16.5 mmol/L 6.0-15.0 [facility] Serum or plasma aspartate am inotransferase measurement (enzymatic activity/volume)Ordered By: Margaret Delgado on 02-14-2022 AST [Catalytic activity/Vol] 32 U/L 10-42 [facility] Serum or plasma calcium maine urement (mass/volume)Ordered By: Margaret Delgado on 02-14-2022 Calcium [Mass/Vol] 10.2 mg/dL 8.2-10.2 [facility] Serum or plasma chloride vicky surement (moles/volume)Ordered By: Margaret Delgado on 02-14-2022 Chloride [Moles/Vol] 100 mmol/L 95-114 [facility] Serum or plasma glucose maine urement (mass/volume)Ordered By: Margaret Delgado on 02-14-2022 Glucose [Mass/Vol] 287 mg/dL 70-100 [facility] Comment on above: ADA recommended refe rence rangeRandom Glucose Reference Range is dependent on time and content of last meal. Glucose of more than 200 mg/dL in a nonstressed, ambulatory subject supports the diagnosis of Diabetes Mellitus. Serum or plasma potassium me asurement (moles/volume)Ordered By: Margaret Delgado on 02-14-2022 Potassium [Moles/Vol] 5.3 mmol/L 3.5-5.1 [facility] Serum or plasma sodium measu rement (moles/volume)Ordered By: Margaret Delgado on 02-14-2022 Sodium [Moles/Vol] 134 mmol/L 136-146 [facility] Serum or plasma total biliru bin measurement (mass/volume)Ordered By: Margaret Delgado on 02-14-2022 Bilirubin [Mass/Vol] 0.3 mg/dL 0.3-1.2 [facility] Serum or plasma total carbon dioxide measurement (moles/volume)Ordered By: Margaret Delgado on 02-14-2022 CO2 [Moles/Vol] 22.8 mmol/L 22.0-30.0 [facility] Serum or plasma urea nitroge n measurement (mass/volume)Ordered By: Margaret Delgado on 02-14-2022 Urea nitrogen [Mass/Vol] 40 mg/dL 9- [facility] WBC Auto (Bld) [#/Vol]Ordere d By: Margaret Delgado on 02-14-2022 WBC (Bld) [#/Vol] 11.4 10*3/uL 4.1-10.5 [facility] Urine culture routineOrdered By: Margaret Delgado on 11-17-2021 Bacteria identified Cx Nom (U) No Growth 2 Days [facility] Automated erythrocytes count in urine sediment (number/area)Ordered By: Margaret Delgado on 11-15-2021 RBC Auto (Urine sed) [#/Area] 0-1 [HPF] 0-4 [facility] Automated leukocytes count i n urine sediment (number/area)Ordered By: Margaert Delgado on 11-15-2021 WBC Auto (Urine sed) [#/Area] 5-9 [HPF] High 0-4 [facility] Bacteria [Presence] in Urine by AutomatedOrdered By: Margaret Delgado on 11-15-2021 Bacteria Auto Ql (U) Bacteria [Presence] in Urine by Automated None Seen [facility] Bilirubin Test strip Ql (U)O rdered By: Margaret Delgado on 11-15-2021 Bilirubin Ql (U) Bilirubin.total [Presence] in Urine by Test strip Negative [facility] Bilirubin Ql (U) Negative Negative [facility] Color Auto (U)Ordered By: Elza Delgado on 11-15-2021 Color (U) Yellow Yellow [facility] Color (U) Color of Urine by Auto Yellow [facility] Erythrocytes [#/area] in Uri ne sediment by Automated countOrdered By: Margaret Delgado on 11-15-2021 RBC Auto (Urine sed) [#/Area] Erythrocytes [#/area] in Urine sediment by Automated count 0-4 [facility] Ketones Auto test strip (U) [Mass/Vol]Ordered By: Margaret Delgado on 11-15-2021 Ketones (U) [Mass/Vol] Negative Negative [facility] Ketones (U) [Mass/Vol] Urine ketones measurement by automated test strip (mass/volume) Negative [facility] Laboratory - Microbiology an d Antimicrobial susceptibilityOrdered By: Margaret Delgado on 11-15-2021 Bacteria identified Cx Nom (U) [facility] - UrinalysisOrder ed By: Margaret Delgado on 11-15-2021 Hyaline casts LM Ql (Urine sed) 0-8 [LPF] 0-8 [facility] Leukocytes [#/area] in Urine sediment by Automated countOrdered By: Margaret Delgado on 11-15-2021 WBC Auto (Urine sed) [#/Area] Leukocytes [#/area] in Urine sediment by Automated count High 0-4 [facility] Nitrite Test strip Ql (U)Ord ered By: Margaret Delgado on 11-15-2021 Nitrite Ql (U) Nitrite [Presence] i n Urine by Test strip Negative [facility] Nitrite Ql (U) Negative Negative [facility] Protein Auto test strip (U) [Mass/Vol]Ordered By: Margaret Delgado on 11-15-2021 Protein (U) [Mass/Vol] Trace mg/dL High Negative [facility] Protein (U) [Mass/Vol] Urine protein measurement by automated test strip (mass/volume) High Negative [facility] Specific gravity Auto test s trip (U) [Rel density]Ordered By: Margaret Delgado on 11-15-2021 Specific gravity (U) [Rel density] 1.023 1.001-1.030 [facility] Specific gravity (U) [Rel density] Specific gravity of Urine by Automated test strip 1.001-1.030 [facility] Squamous epithelial cells de tection in urine sediment by light microscopyOrdered By: Margaret Delgado on 11-15-2021 Epithelial cells.squamous LM Ql (Urine sed) 0-1 [HPF] 0-2 [facility] Epithelial cells.squamous LM Ql (Urine sed) Squamous epithelial cells detection in urine sediment by light microscopy 0-2 [facility] Urine bacteria detection by automated methodOrdered By: Margaret Delgado on 11-15-2021 Bacteria Auto Ql (U) None seen None Seen [facility] Urine clarity by refractomet ry automatedOrdered By: Margaret Delgado on 11-15-2021 Clarity Refractometry automated (U) Clear Clear [facility] Clarity Refractometry automated (U) Urine clarity by refractometry automated Clear [facility] Urine culture routineOrdered By: Margaret Delgado on 11-15-2021 Bacteria identified Cx Nom (U) No Growth 2 Days [facility] Bacteria identified Cx Nom (U) No Growth 2 Days [facility] Urine glucose measurement by automated test strip (mass/volume)Ordered By: Margaret Delgado on 11-15-2021 Glucose Auto test strip (U) [Mass/Vol] 250 mg/dL [facility] Normal [facility] Glucose Auto test strip (U) [Mass/Vol] Urine glucose measurement by automated test strip (mass/volume) High Normal [facility] Urine hemoglobin detection b y automated test stripOrdered By: Margaret Delgado on 11-15-2021 Hemoglobin Auto test strip Ql (U) Negative Negative [facility] Hemoglobin Auto test strip Ql (U) Urine hemoglobin detection by automated test strip Negative [facility] Urine leukocyte esterase det ection by automated test stripOrdered By: Margaret Delgado on 11-15-2021 Leukocyte esterase Auto test strip Ql (U) 1+ High Negative [facility] Leukocyte esterase Auto test strip Ql (U) Urine leukocyte esterase detection by automated test strip High Negative [facility] Urobilinogen Auto test strip (U) [Mass/Vol]Ordered By: Margaret Delgado on 11-15-2021 Urobilinogen (U) [Mass/Vol] Normal mg/dL Normal [facility] Urobilinogen (U) [Mass/Vol] Urine urobilinogen measurement by automated test strip (mass/volume) Normal [facility] pH Auto test strip (U)Ordere d By: Margaret Delgado on 11-15-2021 pH (U) 5.0 [pH] 5.0-9.0 [facility] pH (U) Urine pH measurement by automated test strip 5.0-9.0 [facility] Basophils Auto (Bld) [#/Vol] Ordered By: Margaret Delgado on 11-14-2021 Basophils (Bld) [#/Vol] 0.1 10*3/uL 0.0-0.2 [facility] Basophils/100 WBC Auto (Bld) Ordered By: Margaret Delgado on 11-14-2021 Basophils/100 WBC (Bld) 0.8 % . F [facility] Blood hemoglobin measurement (mass/volume)Ordered By: Margaret Delgado on 11-14-2021 Hemoglobin (Bld) [Mass/Vol] 12.8 g/dL 13.0-17.0 [facility] Blood leukocytes automated c ount (number/volume)Ordered By: Margaret Delgado on 11-14-2021 WBC (Bld) [#/Vol] 9.4 10*3/uL 4.5-11.0 [facility] Body fluid albumin measureme nt (mass/volume)Ordered By: Margaret Delgado on 11-14-2021 Albumin (Body fld) [Mass/Vol] 4.0 g/dL 3.2-5.5 [facility] Creatinine and Glomerular fi ltration rate.predicted panel (S/P/Bld)Ordered By: Margaret Delgado on 11-14-2021 Creatinine [Mass/Vol] 1.47 mg/dL 0.64-1.27 [facility] Eosinophils Auto (Bld) [#/Vo l]Ordered By: Margaret Delgado on 11-14-2021 Eosinophils (Bld) [#/Vol] 0.5 10*3/uL 0.0-0.45 [facility] Eosinophils/100 WBC Auto (Bl d)Ordered By: Margaret Delgado on 09-06-2022 Eosinophils/100 WBC (Bld) 4.9 % . [facility] Erythrocyte distribution wid th Auto (RBC) [Ratio]Ordered By: Margaret Delgado on 11-14-2021 Erythrocyte distribution width (RBC) [Ratio] 14.2 % 12.0-14.8 [facility] Estimated glomerular filtrat ion rate (GFR) non- AmericanOrdered By: Margaret Delgado on 11-14-2021 GFR/1.73 sq M.predicted among non-blacks MDRD (S/P/Bld) [Vol rate/Area] 48 mL/Min [facility] Globulin Calc (S) [Mass/Vol] Ordered By: Margaret Delgado on 11-14-2021 Globulin (S) [Mass/Vol] 3.6 g/dL F [facility] Hematocrit Auto (Bld) [Volum e fraction]Ordered By: Margaret Delgado on 11-14-2021 Hematocrit (Bld) [Volume fraction] 37.5 % 38.8-50.0 [facility] Laboratory - Hematology and Cell countsOrdered By: Margaret Delgado on 11-14-2021 Nucleated RBC/100 WBC (Bld) [Ratio] 0.0 % 0-0.5 [facility] Lymphocytes Auto (Bld) [#/Vo l]Ordered By: Margaret Delgado on 11-14-2021 Lymphocytes (Bld) [#/Vol] 2.6 10*3/uL 1.00-4.8 [facility] Lymphocytes/100 WBC Auto (Bl d)Ordered By: Margaret Delgado on 11-14-2021 Lymphocytes/100 WBC (Bld) 27.7 % . [facility] MCH Auto (RBC) [Entitic mass ]Ordered By: Margaret Delgado on 11-14-2021 MCH (RBC) [Entitic mass] 30.9 pg 27.5-35.2 [facility] MCHC Auto (RBC) [Mass/Vol]Or dered By: Margaret Delgado on 11-14-2021 MCHC (RBC) [Mass/Vol] 34.0 g/dL 32.5-35.6 [facility] MCV Auto (RBC) [Entitic vol] Ordered By: Margaret Delgado on 11-14-2021 MCV (RBC) [Entitic vol] 90.9 fL 83.5-101 F [facility] Monocytes Auto (Bld) [#/Vol] Ordered By: Margaret Delgado on 11-14-2021 Monocytes (Bld) [#/Vol] 0.7 10*3/uL 0.0-0.8 [facility] Monocytes/100 WBC Auto (Bld) Ordered By: Margaret Delgado on 11-14-2021 Monocytes/100 WBC (Bld) 8.0 % . F [facility] Neutrophils Auto (Bld) [#/Vo l]Ordered By: Margaret Delgado on 11-14-2021 Neutrophils (Bld) [#/Vol] 5.5 10*3/uL 1.8-7.7 [facility] Neutrophils/100 WBC Auto (Bl d)Ordered By: Margaret Delgado on 11-14-2021 Neutrophils/100 WBC (Bld) 58.6 % . [facility] No Panel InformationOrdered By: Margaret Delgado on 11-14-2021 Estimated GFR () 58 mL/Min [facility] Comment on above: GFR estimated refere nce range: According to KDOQI guidelines, <60 ml/min/1.73m2 is sufficient to diagnose a patient with chronic kidney disease. Pharmacy Creatinine Clearance (Chem 57.47 [facility] Platelet mean volume Auto (B ld) [Entitic vol]Ordered By: Margaret Delgado on 11-14-2021 Platelet mean volume (Bld) [Entitic vol] 9.0 fL 6.6-10.1 [facility] Platelets Auto (Bld) [#/Vol] Ordered By: Margaret Delgado on 11-14-2021 Platelets (Bld) [#/Vol] 229 10*3/uL 150-450 [facility] Protein [Mass/volume] in Ser um or PlasmaOrdered By: Margaret Delgado on 11-14-2021 Protein [Mass/Vol] 7.6 g/dL 6.1-7.9 [facility] RBC Auto (Bld) [#/Vol]Ordere d By: Margaret Delgado on 11-14-2021 RBC (Bld) [#/Vol] 4.13 10*6/uL 3.90-5.60 [facility] Serum or plasma alanine webster otransferase measurement without P-5'-P (enzymatic activiOrdered By: Margaret Delgado on 11-14-2021 ALT No additional P-5'-P [Catalytic activity/Vol] 46 U/L 10-60 [facility] Serum or plasma albumin/glob ulin mass ratioOrdered By: Margaret Delgado on 11-14-2021 Albumin/Globulin [Mass ratio] 1.1 {ratio} [facility] Serum or plasma alkaline queenie sphatase measurement (enzymatic activity/volume)Ordered By: Margaret Delgado on 11-14-2021 ALP [Catalytic activity/Vol] 159 U/L 32-92 [facility] Serum or plasma anion gap de terminationOrdered By: Margaret Delgado on 11-14-2021 Anion gap [Moles/Vol] 14.9 mmol/L 6.0-15.0 [facility] Serum or plasma aspartate am inotransferase measurement (enzymatic activity/volume)Ordered By: Margaret Delgado on 11-14-2021 AST [Catalytic activity/Vol] 40 U/L 10-42 [facility] Serum or plasma calcium maine urement (mass/volume)Ordered By: Margaret Delgado on 11-14-2021 Calcium [Mass/Vol] 10.2 mg/dL 8.2-10.2 [facility] Serum or plasma cancer antig en 19-9 measurement (units/volume)Ordered By: Margaret Delgado on 11-14-2021 Cancer Ag 19-9 Qn 21 [arb'U]/mL 0-35 [facility] Comment on above: [facility] [employer] El ectrochemiluminescence Immunoassay (ECLIA) Values obtained with different assay methods or kits cannot be used interchangeably. Results cannot be interpreted as absolute evidence of the presence or absence of malignant disease. Performed at: [facility] [id number] [place] [employer]uler: Flaco Pineda PhD, Phone: [phone] [employer] El ectrochemiluminescence Immunoassay(ECLIA)Values obtained with different assay methods or kits cannotbe used interchangeably. Results cannot be interpreted asabsolute evidence of the presence or absence of malignantdisease.Performed at: [facility] [address] [id number] Director: Flaco Pineda PhD, Phone: [phone] Serum or plasma chloride vicky surement (moles/volume)Ordered By: Margaret Delgado on 11-14-2021 Chloride [Moles/Vol] 100 mmol/L 95-114 [facility] Serum or plasma glucose maine urement (mass/volume)Ordered By: Margaret Delgado on 11-14-2021 Glucose [Mass/Vol] 139 mg/dL 70-100 [facility] Comment on above: ADA recommended refe rence range Random Glucose Reference Range is dependent on time and content of last meal. Glucose of more than 200 mg/dL in a nonstressed, ambulatory subject supports the diagnosis of Diabetes Mellitus. ADA recommended refe rence rangeRandom Glucose Reference Range is dependent on time and content of last meal. Glucose of more than 200 mg/dL in a nonstressed, ambulatory subject supports the diagnosis of Diabetes Mellitus. Serum or plasma potassium me asurement (moles/volume)Ordered By: Margaret Delgado on 11-14-2021 Potassium [Moles/Vol] 5.0 mmol/L 3.5-5.1 [facility] Serum or plasma sodium measu rement (moles/volume)Ordered By: Margaret Delgado on 11-14-2021 Sodium [Moles/Vol] 132 mmol/L 136-146 [facility] Serum or plasma total biliru bin measurement (mass/volume)Ordered By: Margaret Delgado on 11-14-2021 Bilirubin [Mass/Vol] 0.4 mg/dL 0.3-1.2 [facility] Serum or plasma total carbon dioxide measurement (moles/volume)Ordered By: Margaret Delgado on 11-14-2021 CO2 [Moles/Vol] 22.1 mmol/L 22.0-30.0 [facility] Serum or plasma urea nitroge n measurement (mass/volume)Ordered By: Margaret Delgado on 11-14-2021 Urea nitrogen [Mass/Vol] 41 mg/dL 12-01 [facility] Elastase.pancreatic [Mass/ma ss] in StoolOrdered By: Andrew Vazquez on 11-01-2021 Elastase.pancreatic (Stl) [Mass/Mass] <50 >200 [facility] Comment on above: Result Units: ug Thais st./g Results verified by repeat testing Severe Pancreatic Insufficiency: <100 Moderate Pancreatic Insufficiency: 100 - 200 Normal: >200 Performed at: [facility] [address] [place], [place] [id number] [employer] [employer]uler: Anu Alvarado MD, Phone: [phone] Result Units: ug Thais st./gResults verified by repeat testing Severe Pancreatic Insufficiency: <100 Moderate Pancreatic Insufficiency: 100 - 200 Normal: >200Performed at: [facility] [address] [id number] Director: Anu Alvarado MD, Phone: [phone] CT Chest w/Contraston 2021 CT Chest w/Contrast CLINICAL HISTORY: Midsternal chest pain for several months. History of pancreatic cancer. History of kidney stones. COMPARISON: None available. TECHNIQUE: Multiple contiguous axial images of the chest were obtained following IV administration of 100 mL Isovue 300. Multiplanar reformatted images were acquired. MIP images were obtained. All All CT scans at this facility use dose modulation, iterative reconstruction, and/or weight based dosing when appropriate to reduce radiation dose to as low as reasonably achievable. FINDINGS: There is no evidence of central pulmonary embolism. No evidence of aortic dissection or aneurysm. There are atherosclerotic calcifications within the aortic arch and coronary arteries. There is no mediastinal or hilar lymphadenopathy. No pericardial or pleural effusions. The heart is not enlarged. There is a small infiltrate for peripherally in the lingula versus honeycombing of the lung. There is minimal atelectasis or infiltrate in the posterior medial base of the left lower lobe. There are small peripheral infiltrates within the superior segment of the right lower lobe. There are small peripheral infiltrate within the posterior aspect of the right upper lobe. No suspicious lung nodule. The tracheobronchial tree appears patent. The visualized portions of the upper abdomen are unremarkable. Bones are intact IMPRESSION: NO ADENOPATHY OR PLEURAL EFFUSION. SMALLINFILTRATES/ATELEC TASISIN THE LINGULA, LOWER LOBES, RIGHT UPPER LOBE VERSUS CHRONIC CHANGES. NO SUSPICIOUS LUNG NODULE. HONEYCOMBING IN LINGULA. Report reported and signed by Rekha Campbell on 09/26/2021 1541 Normal [facility] Specialist Basophils Auto (Bld) [#/Vol] Ordered By: Andrew Vazquez on 08-30-2021 Basophils (Bld) [#/Vol] 0.1 10*3/uL 0.0-0.2 [facility] Basophils/100 WBC Auto (Bld) Ordered By: Andrew Vazquez on 08-30-2021 Basophils/100 WBC (Bld) 0.9 % . F [facility] Blood hemoglobin measurement (mass/volume)Ordered By: Andrew Vazquez on 08-30-2021 Hemoglobin (Bld) [Mass/Vol] 12.6 g/dL 13.0-17.0 [facility] Blood leukocytes automated c ount (number/volume)Ordered By: Andrew Vazquez on 08-30-2021 WBC (Bld) [#/Vol] 6.9 10*3/uL 4.5-11.0 [facility] Body fluid albumin measureme nt (mass/volume)Ordered By: Andrew Vazquez on 08-30-2021 Albumin (Body fld) [Mass/Vol] 3.9 g/dL 3.2-5.5 [facility] Creatinine and Glomerular fi ltration rate.predicted panel (S/P/Bld)Ordered By: Andrew Vazquez on 08-30-2021 Creatinine [Mass/Vol] 1.57 mg/dL 0.64-1.27 [facility] Eosinophils Auto (Bld) [#/Vo l]Ordered By: Andrew Vazquez on 08-30-2021 Eosinophils (Bld) [#/Vol] 0.3 10*3/uL 0.0-0.45 [facility] Eosinophils/100 WBC Auto (Bl d)Ordered By: Andrew Vazquez on 08-30-2021 Eosinophils/100 WBC (Bld) 4.5 % . [facility] Erythrocyte distribution wid th Auto (RBC) [Ratio]Ordered By: Andrew Vazquez on 08-30-2021 Erythrocyte distribution width (RBC) [Ratio] 13.8 % 12.0-14.8 [facility] Estimated glomerular filtrat ion rate (GFR) non- AmericanOrdered By: Andrew Vazquez on 08-30-2021 GFR/1.73 sq M.predicted among non-blacks MDRD (S/P/Bld) [Vol rate/Area] 45 mL/Min [facility] Globulin Calc (S) [Mass/Vol] Ordered By: Andrew Vazquez on 08-30-2021 Globulin (S) [Mass/Vol] 3.2 g/dL F [facility] Hematocrit Auto (Bld) [Volum e fraction]Ordered By: Andrew Vazquez on 08-30-2021 Hematocrit (Bld) [Volume fraction] 36.5 % 38.8-50.0 [facility] Hepatitis C virus RNA [log u nits/volume] (viral load) in Serum or Plasma by ANN withOrdered By: Andrew Vazquez on 08-30-2021 HCV RNA ANN+probe [Log units/Vol] Not detected . [facility] Laboratory - Chemistry and C hemistry - challengeOrdered By: Andrew Vazquez on 08-30-2021 Amylase [Catalytic activity/Vol] 52 U/L 7-64 [facility] Laboratory - CoagulationOrde red By: Andrew Vazquez on 08-30-2021 PT Coag (PPP) [Time] 11.3 s 9.0-12.9 [facility] Laboratory - Hematology and Cell countsOrdered By: Andrew Vazquez on 08-30-2021 Nucleated RBC/100 WBC (Bld) [Ratio] 0.1 % 0-0.5 [facility] Lymphocytes Auto (Bld) [#/Vo l]Ordered By: Andrew Vazquez on 08-30-2021 Lymphocytes (Bld) [#/Vol] 2.2 10*3/uL 1.00-4.8 [facility] Lymphocytes/100 WBC Auto (Bl d)Ordered By: Andrew Vazquez on 08-30-2021 Lymphocytes/100 WBC (Bld) 32.4 % . [facility] MCH Auto (RBC) [Entitic mass ]Ordered By: Andrew Vazquez on 08-30-2021 MCH (RBC) [Entitic mass] 30.8 pg 27.5-35.2 [facility] MCHC Auto (RBC) [Mass/Vol]Or dered By: Andrew Vazquez on 08-30-2021 MCHC (RBC) [Mass/Vol] 34.5 g/dL 32.5-35.6 [facility] MCV Auto (RBC) [Entitic vol] Ordered By: Andrew Vazquez on 08-30-2021 MCV (RBC) [Entitic vol] 89.4 fL 83.5-101 F [facility] Monocyte %Ordered By: Ruba Vazquez on 08-30-2021 Monocyte % 10 umol/L 11-35 [facility] Monocytes Auto (Bld) [#/Vol] Ordered By: Andrew Vazquez on 08-30-2021 Monocytes (Bld) [#/Vol] 0.5 10*3/uL 0.0-0.8 [facility] Monocytes/100 WBC Auto (Bld) Ordered By: Andrew Vazquez on 08-30-2021 Monocytes/100 WBC (Bld) 6.8 % . F [facility] Neutrophils Auto (Bld) [#/Vo l]Ordered By: Andrew Vazquez on 08-30-2021 Neutrophils (Bld) [#/Vol] 3.8 10*3/uL 1.8-7.7 [facility] Neutrophils/100 WBC Auto (Bl d)Ordered By: Andrew Vazquez on 08-30-2021 Neutrophils/100 WBC (Bld) 55.4 % . [facility] No Panel InformationOrdered By: Andrew Vazquez on 08-30-2021 Estimated GFR () 54 mL/Min [facility] Comment on above: GFR estimated refere nce range: According to KDOQI guidelines, <60 ml/min/1.73m2 is sufficient to diagnose a patient with chronic kidney disease. Hepatitis C RNA (PCR) Interpret See comment . [facility] Comment on above: The quantitative ran ge of this assay is 15 IU/mL to 100 million IU/mL. Performed at: - [address] [id number] [employer]: Anu Alvarado MD, Phone: [phone] Pharmacy Creatinine Clearance (Chem N/A [facility] Platelet mean volume Auto (B ld) [Entitic vol]Ordered By: Andrew Vazquez on 08-30-2021 Platelet mean volume (Bld) [Entitic vol] 8.8 fL 6.6-10.1 [facility] Platelet poor plasma interna tional normalized ratio (INR) by coagulation assay (relatOrdered By: Andrew Vazquez on 08-30-2021 INR Coag (PPP) [Relative time] 1.0 {INR} [facility] Comment on above: INR Therapeutic Rang e A) Pre- and Peroperative OAT started two weeks before surgery. NOT HIP SURGERY: 1.5 - 2.5 HIP SURGERY: 2 - 3 B) Primary and secondary prevention of venous THROMBOSIS: 2 - 3 C) Active venous thrombosis, pulmonary embolism and prevention of recurrent venous thrombosis: 2 - 3 D) Prevention of arterial thromboembolism including patients with mechanical heart valves: 3 - 4.5 Platelets Auto (Bld) [#/Vol] Ordered By: Andrew Vazquez on 08-30-2021 Platelets (Bld) [#/Vol] 217 10*3/uL 150-450 [facility] Protein [Mass/volume] in Ser um or PlasmaOrdered By: Andrew Vazquez on 08-30-2021 Protein [Mass/Vol] 7.1 g/dL 6.1-7.9 [facility] RBC Auto (Bld) [#/Vol]Ordere d By: Andrew Vazquez on 08-30-2021 RBC (Bld) [#/Vol] 4.08 10*6/uL 3.90-5.60 [facility] Serum or plasma alanine webster otransferase measurement without P-5'-P (enzymatic activiOrdered By: Andrew Vazquez on 08-30-2021 ALT No additional P-5'-P [Catalytic activity/Vol] 27 U/L 10-60 [facility] Serum or plasma albumin/glob ulin mass ratioOrdered By: Andrew Vazquez on 08-30-2021 Albumin/Globulin [Mass ratio] 1.2 {ratio} [facility] Serum or plasma alkaline queenie sphatase measurement (enzymatic activity/volume)Ordered By: Andrew Vazquez on 08-30-2021 ALP [Catalytic activity/Vol] 107 U/L 32-92 [facility] Serum or plasma aspartate am inotransferase measurement (enzymatic activity/volume)Ordered By: Andrew Vazquez on 08-30-2021 AST [Catalytic activity/Vol] 29 U/L 10-42 [facility] Serum or plasma calcium maine urement (mass/volume)Ordered By: Andrew Vazquez on 08-30-2021 Calcium [Mass/Vol] 9.5 mg/dL 8.2-10.2 [facility] Serum or plasma chloride vicky surement (moles/volume)Ordered By: Andrew Vazquez on 08-30-2021 Chloride [Moles/Vol] 100 mmol/L 95-114 [facility] Serum or plasma glucose maine urement (mass/volume)Ordered By: Andrew Vazquez on 08-30-2021 Glucose [Mass/Vol] 301 mg/dL 70-100 [facility] Comment on above: ADA recommended refe rence range Random Glucose Reference Range is dependent on time and content of last meal. Glucose of more than 200 mg/dL in a nonstressed, ambulatory subject supports the diagnosis of Diabetes Mellitus. Serum or plasma potassium me asurement (moles/volume)Ordered By: Andrew Vazquez on 08-30-2021 Potassium [Moles/Vol] 4.5 mmol/L 3.5-5.1 [facility] Serum or plasma sodium measu rement (moles/volume)Ordered By: Andrew Vazquez on 08-30-2021 Sodium [Moles/Vol] 133 mmol/L 136-146 [facility] Serum or plasma total biliru bin measurement (mass/volume)Ordered By: Andrew Vazquez on 08-30-2021 Bilirubin [Mass/Vol] 0.3 mg/dL 0.3-1.2 [facility] Serum or plasma total carbon dioxide measurement (moles/volume)Ordered By: Andrew Vazquez on 08-30-2021 CO2 [Moles/Vol] 23.7 mmol/L 22.0-30.0 [facility] Serum or plasma urea nitroge n measurement (mass/volume)Ordered By: Andrew Vazquez on 08-30-2021 Urea nitrogen [Mass/Vol] 32 mg/dL 12-01 [facility] Glucose Glucometer (BldC) [M ass/Vol]Ordered By: Margaret Delgado on 08-09-2021 Glucose [Mass/Vol] 138 mg/dL [facility] Comment on above: Random Glucose Refer ence Range is dependent on time and content of last meal. Glucose of more than 200 mg/dL in a nonstressed, ambulatory subject supports the diagnosis of Diabetes Mellitus. CT Abdomen/Pelvis w/ Contras ton 07-27-2021 CT Abdomen/Pelvis w/ Contrast EXAM: CT SCAN OF ABDOMEN AND PELVIS WITH/WITHOUT CONTRAST CLINICAL HISTORY: TECHNIQUE: Following following the administration of intravenous contrast, post-intravenous contrast helical images, 5 mm slice thickness, were performed through the abdomen and pelvis. Delayed imaging through the kidneys was also performed. Total DLP dose Dose reduction achieved utilizing automatic tube current modulation FINDINGS: Opacity is seen in the left base. No pleural effusion is seen in either base. The head of the pancreas is inhomogeneous with hypodensity now seen. This may represent ductal dilation.. A thickened loop of bowel is seen proximally near the head of the pancreas. There is stranding in the mesenteric fat in the central abdomen along the vascular structures and hypodensity in the mesenteric fat.. No fluid collection is seen. The gallbladder is surgically absent. The spleen, liver and adrenal glands are unremarkable. A tiny stone is again seen in the left kidney that is nonobstructing. Perinephric stranding that is nonspecific is again seen about both kidneys. Tiny hypodense area seen in the inferior pole of the right kidney thought to be a cyst. No dilated loops of bowel are seen. Fecal material is seen throughout the colon. The appendix is not enlarged. There density seen in the appendix that could be an appendicolith. The prostate gland is again enlarged and protrudes into the base of the urinary bladder. Degenerative changes are seen in the spine. IMPRESSION: The visualized head of the pancreas is hypodense and is thought to be due to ductal dilation. There also is stranding in the mesenteric fat. In infiltration of the fat in the perivascular regions. This could represent possible pancreatitis; however, recurrent disease is also concerning. Report reported and signed by Murray Moscoso on 07/27/2021 1422 Normal [facility] Specialist Blood anisocytosis detection on 07-25-2020 Anisocytosis Ql (Bld) Slight [facility] Anisocytosis Ql (Bld) Blood anisocytosis detection [facility] Laboratory - Chemistry and C hemistry - challengeon 07-25-2020 Magnesium [Mass/Vol] 1.7 mg/dL 1.6-2.6 [facility] No Panel Informationon 07-25 Dohle Bodies Slight [facility] Platelet Estimate Normal Normal [facility] Platelet Morphology Comment Normal Normal [facility] Poikilocytosis Slight [facility] Ovalocyte detectionon 2020 Ovalocytes LM Ql (Bld) Slight Fi [facility] Ovalocytes LM Ql (Bld) Ovalocyte detection [facility] RBC morphologyon 07-25-2020 RBC morphology finding Nom (Bld) N/A [facility] RBC morphology finding Nom (Bld) RBC morphology [facility] Teardrop cell detectionon Dacrocytes LM Ql (Bld) Rare Fi [facility] Dacrocytes LM Ql (Bld) Teardrop cell detection [facility] Macrocytes detectionon 07-04 Macrocytes Ql (Bld) Slight [facility] Macrocytes Ql (Bld) Macrocytes detection [facility] Basophil percentageon 2020 Basophil percentage Basophil percentage 1-3 [facility] Eosinophils/100 WBC (Bld) 1 % 1-3 [facility] Blood polychromasia detectio n by light microscopyon 06-20-2020 Polychromasia LM Ql (Bld) Moderate [facility] Laboratory - Hematology and Cell countson 06-20-2020 Band form neutrophils/100 WBC (Bld) 2 % 0-5 [facility] Lymphocytes/100 WBC Auto (Bl d)on 06-20-2020 Lymphocytes/100 WBC (Bld) 35 % [facility] Lymphocytes/100 WBC (Bld) Lymphocytes/100 leukocytes in Blood by Automated count [facility] Metamyelocytes/100 WBC Manua l cnt (Bld)on 06-20-2020 Metamyelocytes/100 WBC (Bld) 1 % High 0-0 [facility] Metamyelocytes/100 WBC (Bld) Metamyelocytes/100 leukocytes in Blood by Manual count High 0-0 [facility] Monocyte %on 06-20-2020 Monocytes/100 WBC (Bld) 1 % 1-3 F [facility] Monocytes/100 WBC Manual cnt (Bld)on 06-20-2020 Monocytes/100 WBC (Bld) 3 % 2-11 F [facility] Monocytes/100 WBC (Bld) Monocytes/100 leukocytes in Blood by Manual count 2-11 [facility] Myelocytes/100 WBC Manual cn t (Bld)on 06-20-2020 Myelocytes/100 WBC (Bld) 2 % High 0-0 [facility] Myelocytes/100 WBC (Bld) Myelocytes/100 leukocytes in Blood by Manual count High 0-0 [facility] Polychromasia [Presence] in Blood by Light microscopyon 06-20-2020 Polychromasia LM Ql (Bld) Polychromasia [Presence] in Blood by Light microscopy [facility] Segmented neutrophils/100 WB C Manual cnt (Bld)on 06-20-2020 Segmented neutrophils/100 WBC (Bld) 56 % 50-70 [facility] Segmented neutrophils/100 WBC (Bld) Manual blood segmented neutrophils/100 leukocytes 50-70 [facility] No Panel Informationon 05-25 Bedside Glucose Comment Glu2: cleaned meter [facility] Metabolic Panelon 02-16-2020 Glucose [Mass/Vol] 136 mg/dL above high threshold 74 - 99 HT-Rojihvv-R [facility] Work Phone: [phone] Glucose [Mass/Vol] 153 mg/dL above high threshold 74 - 99 IC-Usvitnu-J [facility] Work Phone: [phone] Glucose [Mass/Vol] 186 mg/dL above high threshold 74 - 99 ZR-Djuvwgj-E [facility] Work Phone: Blood Gason 02-15-2020 HCO3 (Bld) [Moles/Vol] 23.7 mmol/L See Below M G-Surgery[facility] Work Phone: [phone] Comment on above: Reference Range: 22. 0 - 26.0 Oxygen (Bld) [Partial pressure] 120 {mmHg} above high threshold 85 - 95 WU-Mzudstc-Q [facility] Work Phone: [phone] HCO3 (Bld) [Moles/Vol] 20.6 mmol/L below low threshold See Below LC-Gqdgbzf-[facility] Work Phone: Comment on above: Reference Range: 22. 0 - 26.0 Oxygen (Bld) [Partial pressure] 121 {mmHg} above high threshold 85 - 95 VI-Umiiyqy-X [facility] Work Phone: HCO3 (Bld) [Moles/Vol] 23.7 mmol/L See Below M [facility] Work Phone: Comment on above: Reference Range: 22. 0 - 26.0 Oxygen (Bld) [Partial pressure] 193 {mmHg} above high threshold 85 - 95 EI-Yxyjmyg-[facility] Work Phone: HCO3 (Bld) [Moles/Vol] 23.7 mmol/L See Below M [facility] Work Phone: Comment on above: Reference Range: 22. 0 - 26.0 Oxygen (Bld) [Partial pressure] 180 {mmHg} above high threshold 85 - 95 VK-Dxbctqi-[facility] Work Phone: HCO3 (Bld) [Moles/Vol] 22.2 mmol/L See Below M [facility] Work Phone: Comment on above: Reference Range: 22. 0 - 26.0 Oxygen (Bld) [Partial pressure] 162 {mmHg} above high threshold 85 - 95 ND-Qsfabpm-Q [facility] Work Phone: HCO3 (Bld) [Moles/Vol] 22.2 mmol/L See Below M [facility] Work Phone: Comment on above: Reference Range: 22. 0 - 26.0 Oxygen (Bld) [Partial pressure] 134 {mmHg} above high threshold 85 - 95 QE-Lkiyjve-N [facility] Work Phone: HCO3 (Bld) [Moles/Vol] 22.7 mmol/L See Below M [facility] Work Phone: Comment on above: Reference Range: 22. 0 - 26.0 Oxygen (Bld) [Partial pressure] 180 {mmHg} above high threshold 85 - 95 WL-Ztzddft-H [facility] Work Phone: Cult, Fungus +smearon 2019 Fungus identified Cx Nom (Unsp spec) PATIENT: ALTAGRACIA CONWAY LOCATION: C600 Z48OVXP#: [id number] : 55 AGE: SEX: M ORDERED BY: ANGEL GUILLAUME: WOUND/ABSCESS COLLECTED: 02/15/20 12:32ANTIBIOTICS AT [facility].: RECEIVED : 02/15/20 23:23SITE: BILE R E S U L T S FUNGAL CULTURE/SM, MISC PRELIM 02/16/20 08:23 CULTURE IS IN PROGRESS A REPORT WILL BE ISSUED EITHER WHEN POSITIVE OR AFTER TWO WEEKS INCUBATION. MX-Zqreqyp-E [facility] Work Phone: Fungus identified Cx Nom (Unsp spec) PATIENT: ALTAGRACIA CONWAY LOCATION: [place] ORBILL#: [id number] : 55 AGE: SEX: M ORDERED BY: ANGEL GUILLAUME: WOUND/ABSCESS COLLECTED: 02/15/20 09:00ANTIBIOTICS AT YAMILA.: RECEIVED : SITE: R E S U L T S FUNGAL SMEAR CANCELLED 02/15/20 12:31 FUNGAL CULTURE/SM, MISC CANCELLED 02/15/20 12:31 EQ-Polasyp-[facility] Work Phone: Comment on above: TEST FUNGAL CULTURE/ SM, MISC WAS CANCELLED, 02/15/2020 12:31 Cult, Misc + smearon 020 Bacteria identified Cx Nom (Unsp spec) PATIENT: ALTAGRACIA CONWAY [facility] [place] [id number] : 55 AGE: SEX: M ORDERED BY: , SOURCE: WOUND/ABSCESS COLLECTED: 02/15/20 09:00ANTIBIOTICS AT YAMILA.: RECEIVED : SITE: BILE R E S U L T S GRAM STAIN CANCELLED 02/15/20 12:31 MISCELLANEOUS CULT./SM.BACT. CANCELLED 02/15/20 12:31 BM-Imwdysf-T [facility] Work Phone: Comment on above: TEST MISCELLANEOUS C ULT./SM.BACT. WAS CANCELLED, 02/15/2020 12:31Ordering Provider: JESÚS Bacteria identified Cx Nom (Unsp spec) PATIENT: ALTAGRACIA CONWAY LOCATION: [address]#: [id number] : 55 AGE: SEX: M ORDERED BY: ANGEL GUILLAUME: WOUND/ABSCESS COLLECTED: 02/15/20 09:00ANTIBIOTICS AT [facility].: RECEIVED : 02/15/20 23:24SITE: BILE R E S U L T S GRAM STAIN FINAL 02/16/20 00:23 NO GRANULOCYTES SEEN. 1+ GRAM (+) BACILLI. MISCELLANEOUS CULT./SM.BACT. PRELIM 02/16/20 11:02 NO GROWTH, CULTURE IN PROGRESS. DU-Rqnihfo-[facility] Work Phone: Hematologyon 02-15-2020 Hematocrit (Bld) [Volume fraction] 31.1 % below low threshold See Below QN-Pcvjwbz-N [place] [facility] Work Phone: Comment on above: Reference Range: 41. 0 - 52.0 Hemoglobin (Bld) [Mass/Vol] 10.7 g/dL below low threshold See Below JH-Yefaphj-[facility] [place] [facility] Work Phone: Comment on above: Reference Range: 13. 5 - 17.5 MCV (RBC) [Entitic vol] 85 fL 80 - 100 M [facility] Work Phone: Platelets (Bld) [#/Vol] 166 {x10E9/L} 150 - 450 PT-Ltgyffl-P [place] [facility] Work Phone: RBC (Bld) [#/Vol] 3.65 {x10E12/L} below low threshold See Below QB-Jdwwvdt-[facility] Work Phone: Comment on above: Reference Range: 4.5 0 - 5.90 WBC (Bld) [#/Vol] 9.5 {x10E9/L} 4.4 - 11.3 MG-S urgery-W [place] [facility] Work Phone: WBC (Bld) [#/Vol] 0.0 {/100_WBC} 0.0-0.0 MG- Surgery-W [place] [facility] Work Phone: Hematocrit (Bld) [Volume fraction] 29.0 % below low threshold See Below CD-Kbgtasy-G [place] [facility] Work Phone: Comment on above: Reference Range: 41. 0 - 52.0 Hemoglobin (Bld) [Mass/Vol] 9.9 g/dL below low threshold See Below JW-Meyiahc-K [place] [facility] Work Phone: Comment on above: Reference Range: 13. 5 - 17.5 pH (Bld) 7.35 [pH] below low threshold See Below IA-Arkvuyk-X [place] [facility] Work Phone: Comment on above: Reference Range: 7.3 8 - 7.42 aPTT Coag (PPP) [Time] 26 {sec} 25 - 35 MG -Surgery-[facility] [place] [facility] Work Phone: Comment on above: THE APTT IS NO LONGE R USED FOR MONITORING UNFRACTIONATED HEPARIN THERAPY. FOR MONITORING HEPARIN THERAPY, USE THE HEPARIN ASSAY. Hematocrit (Bld) [Volume fraction] 33.3 % below low threshold See Below UG-Qljjzph-T [place] [facility] Work Phone: Comment on above: Reference Range: 41. 0 - 52.0 Hemoglobin (Bld) [Mass/Vol] 11.5 g/dL below low threshold See Below NG-Ydqgrlu-Z [place] [facility] Work Phone: Comment on above: Reference Range: 13. 5 - 17.5 INR Coag (PPP) [Relative time] 1.2 {INR} above high threshold 0.9 - 1.1 JV-Eeutwuj-B [place] [facility] Work Phone: [phone] MCV (RBC) [Entitic vol] 87 fL 80 - 100 M G-Surgery-[facility] [place] [facility] Work Phone: Platelets (Bld) [#/Vol] 191 {x10E9/L} 150 - 450 CK-Dhphxan-F [facility] Work Phone: PT Coag (PPP) [Time] 13.7 {sec} above high threshold See Below EN-Qwqociv-[facility] Work Phone: Comment on above: Reference Range: 10. 1 - 13.3 RBC (Bld) [#/Vol] 3.84 {x10E12/L} below low threshold See Below BA-Wkrauzn-[facility] Work Phone: Comment on above: Reference Range: 4.5 0 - 5.90 WBC (Bld) [#/Vol] 0.0 {/100_WBC} 0.0-0.0 MG- Surgery-W [facility] Work Phone: WBC (Bld) [#/Vol] 11.2 {x10E9/L} 4.4 - 11.3 MG- Surgery-[facility] Work Phone: Hematocrit (Bld) [Volume fraction] 32.0 % below low threshold See Below MI-Puahjoa-[facility] Work Phone: [phone] Comment on above: Reference Range: 41. 0 - 52.0 Hemoglobin (Bld) [Mass/Vol] 10.9 g/dL below low threshold See Below SI-Kdkwxvw-[facility] Work Phone: [phone] Comment on above: Reference Range: 13. 5 - 17.5 pH (Bld) 7.33 [pH] below low threshold See Below WX-Rgwyjae-D [facility] Work Phone: Comment on above: Reference Range: 7.3 8 - 7.42 Hematocrit (Bld) [Volume fraction] 30.0 % below low threshold See Below FD-Gsunwhr-[facility] Work Phone: [phone] Comment on above: Reference Range: 41. 0 - 52.0 Hemoglobin (Bld) [Mass/Vol] 10.2 g/dL below low threshold See Below IO-Ikjdhnq-[facility] Work Phone: Comment on above: Reference Range: 13. 5 - 17.5 pH (Bld) 7.36 [pH] below low threshold See Below AI-Meplndv-C [facility] Work Phone: Comment on above: Reference Range: 7.3 8 - 7.42 Hematocrit (Bld) [Volume fraction] 32.0 % below low threshold See Below RK-Ivpepxj-[facility] Work Phone: Comment on above: Reference Range: 41. 0 - 52.0 Hemoglobin (Bld) [Mass/Vol] 10.9 g/dL below low threshold See Below PN-Ghzfvrx-[facility] Work Phone: Comment on above: Reference Range: 13. 5 - 17.5 pH (Bld) 7.37 [pH] below low threshold See Below XT-Kfdslnn-D [facility] Work Phone: Comment on above: Reference Range: 7.3 8 - 7.42 Hematocrit (Bld) [Volume fraction] 35.0 % below low threshold See Below GF-Uvvprgs-O [facility] Work Phone: Comment on above: Reference Range: 41. 0 - 52.0 Hemoglobin (Bld) [Mass/Vol] 11.9 g/dL below low threshold See Below VH-Vpipotz-Z [facility] Work Phone: Comment on above: Reference Range: 13. 5 - 17.5 pH (Bld) 7.32 [pH] below low threshold See Below SE-Vgfnmvh-P [facility] Work Phone: Comment on above: Reference Range: 7.3 8 - 7.42 Hematocrit (Bld) [Volume fraction] 36.0 % below low threshold See Below DU-Qntbden-Y [facility] Work Phone: Comment on above: Reference Range: 41. 0 - 52.0 Hemoglobin (Bld) [Mass/Vol] 12.2 g/dL below low threshold See Below IP-Hueapfl-B [facility] Work Phone: Comment on above: Reference Range: 13. 5 - 17.5 pH (Bld) 7.31 [pH] below low threshold See Below HY-Vfcdbba-D [place] [facility] Work Phone: Comment on above: Reference Range: 7.3 8 - 7.42 Hematocrit (Bld) [Volume fraction] 38.0 % below low threshold See Below BW-Niuezwi-U [place] [facility] Work Phone: Comment on above: Reference Range: 41. 0 - 52.0 Hemoglobin (Bld) [Mass/Vol] 12.9 g/dL below low threshold See Below VK-Jaeljjp-B [place] [facility] Work Phone: Comment on above: Reference Range: 13. 5 - 17.5 pH (Bld) 7.34 [pH] below low threshold See Below VC-Mtdwutn-V [place] [facility] Work Phone: Comment on above: Reference Range: 7.3 8 - 7.42 ABO group Nom (Bld) A [facility] Rh immune globulin screen (Bld) [Interp] Positive [facility]: Hemoglobin A1Con 02-15-2020 HbA1c (Bld) [Mass fraction] 329 {MG/DL} SF-Nppaugw-Y [place] [facility] Work Phone: HbA1c (Bld) [Mass fraction] 13.1 % [facility] Comment on above: Diagnosis of Diabete s-Adults Non-Diabetic: < or = 5.6% Increased risk for developing diabetes: 5.7-6.4% Diagnostic of diabetes: > or = 6.5%. Monitoring of Diabetes Age (y) Therapeutic Goal (%) Adults: >18 <7.0 Pediatrics: 13-18 <7.5 7-12 <8.0 0- 6 7.5-8.5 [place] [employer]. Diabetes Care 33(S1), Mar 2009. Metabolic Panelon 02-15-2020 ALP [Catalytic activity/Vol] 43 U/L 33 - 136 JZ-Uoqmrpo-H [place] [facility] Work Phone: Anion gap [Moles/Vol] 15 mmol/L 10 - 20 MG- Surgery-W [facility] [facility] Work Phone: Bilirubin [Mass/Vol] 0.5 mg/dL 0.0 - 1.2 MG-S urgery-W [place] [facility] Work Phone: [phone] Calcium [Mass/Vol] 8.5 mg/dL below low threshold 8.6 - 10.6 IB-Tnjzcxg-P [place] [facility] Work Phone: [phone] Chloride [Moles/Vol] 102 mmol/L 98 - 107 MG-S urgery-W [place] [facility] Work Phone: CO2 [Moles/Vol] 23 mmol/L 21 - 32 MG-Surger y-W [place] [facility] Work Phone: Creatinine [Mass/Vol] 1.29 mg/dL See Below MG- Surgery-W [place] [facility] Work Phone: Comment on above: Reference Range: 0.5 0 - 1.30 Glucose [Mass/Vol] 222 mg/dL above high threshold 74 - 99 IS-Diksrwy-E [place] [facility] Work Phone: Potassium [Moles/Vol] 4.6 mmol/L 3.5 - 5.3 MG- Surgery-W [place] [facility] Work Phone: Protein [Mass/Vol] 5.7 g/dL below low threshold 6.4 - 8.2 KJ-Eeeadlf-X [place] [facility] Work Phone: [phone] Sodium [Moles/Vol] 135 mmol/L below low threshold 136 - 145 HG-Bqoqfxy-M [place] [facility] Work Phone: [phone] Urea nitrogen [Mass/Vol] 41 mg/dL above high threshold 6 - 23 DM-Knybbpi-S [facility] [facility] Work Phone: [phone] Calcium.ionized (Bld) [Moles/Vol] 1.11 mmol/L See Below XY-Vsdixun-N [place] [facility] Work Phone: Comment on above: Reference Range: 1.1 0 - 1.33 Chloride [Moles/Vol] 106 mmol/L 98 - 107 MG-S urgery-W [place] [facility] Work Phone: [phone] CO2 (Bld) [Partial pressure] 43 {mmHg} above high threshold 38 - 42 OZ-Anpvmxv-J [place] [facility] Work Phone: [phone] Glucose [Mass/Vol] 220 mg/dL above high threshold 74 - 99 IL-Bzmzoej-Q [facility] [facility] Work Phone: [phone] Lactate [Moles/Vol] 1.6 mmol/L 0.4 - 2.0 MG-Ramirez rgery-W [place] [facility] Work Phone: [phone] Potassium [Moles/Vol] 4.4 mmol/L 3.5 - 5.3 MG- Surgery-W [place] [facility] Work Phone: [phone] Sodium [Moles/Vol] 135 mmol/L below low threshold 136 - 145 SH-Xhxhuwn-R [place] [facility] Work Phone: [phone] ALP [Catalytic activity/Vol] 48 U/L 33 - 136 QH-Yihiymr-F [place] [facility] Work Phone: [phone] Anion gap [Moles/Vol] 18 mmol/L 10 - 20 MG- Surgery-W [place] [facility] Work Phone: [phone] Bilirubin [Mass/Vol] 0.7 mg/dL 0.0 - 1.2 MG-S urgery-W [place] [facility] Work Phone: [phone] Calcium [Mass/Vol] 9.0 mg/dL 8.6 - 10.6 MG-Donn mo-W [place] [facility] Work Phone: [phone] Chloride [Moles/Vol] 100 mmol/L 98 - 107 MG-S urgery-W [place] [facility] Work Phone: [phone] CO2 [Moles/Vol] 22 mmol/L 21 - 32 MG-Surger y-W [place] [facility] Work Phone: [phone] Creatinine [Mass/Vol] 1.46 mg/dL above high threshold See Below PH-Hyqwqug-Y [place] [facility] Work Phone: [phone] Comment on above: Reference Range: 0.5 0 - 1.30 Glucose [Mass/Vol] 179 mg/dL above high threshold 74 - 99 RU-Wrecmla-W [place] [facility] Work Phone: [phone] Potassium [Moles/Vol] 4.6 mmol/L 3.5 - 5.3 MG- Surgery-W [place] [facility] Work Phone: [phone] Protein [Mass/Vol] 6.1 g/dL below low threshold 6.4 - 8.2 RS-Unouzkd-J [place] [facility] Work Phone: [phone] Sodium [Moles/Vol] 135 mmol/L below low threshold 136 - 145 CC-Sgokrqa-F [place] [facility] Work Phone: [phone] Urea nitrogen [Mass/Vol] 47 mg/dL above high threshold 6 - 23 TY-Yvkqwph-F [place] [facility] Work Phone: [phone] Calcium.ionized (Bld) [Moles/Vol] 1.10 mmol/L See Below KI-Rznxpiu-Y [place] [facility] Work Phone: [phone] Comment on above: Reference Range: 1.1 0 - 1.33 Chloride [Moles/Vol] 104 mmol/L 98 - 107 MG-S urgery-W [place] [facility] Work Phone: [phone] CO2 (Bld) [Partial pressure] 39 {mmHg} 38 - 42 AP-Rlzyjyi-O [place] [facility] Work Phone: [phone] Glucose [Mass/Vol] 159 mg/dL above high threshold 74 - 99 DU-Cylciip-J [place] [facility] Work Phone: [phone] Lactate [Moles/Vol] 1.7 mmol/L 0.4 - 2.0 MG-Ramirez rgery-W [place] [facility] Work Phone: [phone] Potassium [Moles/Vol] 4.4 mmol/L 3.5 - 5.3 MG- Surgery-W [place] [facility] Work Phone: [phone] Sodium [Moles/Vol] 134 mmol/L below low threshold 136 - 145 JQ-Ldbiufl-P [place] [facility] Work Phone: [phone] Calcium.ionized (Bld) [Moles/Vol] 1.15 mmol/L See Below DV-Bgzdcky-E [place] [facility] Work Phone: [phone] Comment on above: Reference Range: 1.1 0 - 1.33 Chloride [Moles/Vol] 104 mmol/L 98 - 107 MG-S urgery-W [place] [facility] Work Phone: [phone] CO2 (Bld) [Partial pressure] 42 {mmHg} 38 - 42 UG-Xxbhbkc-Q [place] [facility] Work Phone: [phone] Glucose [Mass/Vol] 118 mg/dL above high threshold 74 - 99 ZN-Hzvqlnh-X [place] [facility] Work Phone: [phone] Lactate [Moles/Vol] 1.5 mmol/L 0.4 - 2.0 MG-Ramirez rgery-W [place] [facility] Work Phone: [phone] Potassium [Moles/Vol] 4.1 mmol/L 3.5 - 5.3 MG- Surgery-W [place] [facility] Work Phone: [phone] Sodium [Moles/Vol] 134 mmol/L below low threshold 136 - 145 SQ-Qfoqffx-Y [place] [facility] Work Phone: [phone] Calcium.ionized (Bld) [Moles/Vol] 1.17 mmol/L See Below MZ-Rwpumkv-M [place] [facility] Work Phone: [phone] Comment on above: Reference Range: 1.1 0 - 1.33 Chloride [Moles/Vol] 104 mmol/L 98 - 107 MG-S urgery-W [place] [facility] Work Phone: [phone] CO2 (Bld) [Partial pressure] 41 {mmHg} 38 - 42 OG-Rjpsbno-K [place] [facility] Work Phone: [phone] Glucose [Mass/Vol] 124 mg/dL above high threshold 74 - 99 YP-Yiyuvmw-G [facility] [facility] Work Phone: [phone] Lactate [Moles/Vol] 1.2 mmol/L 0.4 - 2.0 MG-Ramirez rgery-W [place] [facility] Work Phone: [phone] Potassium [Moles/Vol] 4.1 mmol/L 3.5 - 5.3 MG- Surgery-W [place] [facility] Work Phone: Sodium [Moles/Vol] 133 mmol/L below low threshold 136 - 145 SD-Rfuzude-M [place] [facility] Work Phone: [phone] Calcium.ionized (Bld) [Moles/Vol] 1.21 mmol/L See Below VA-Kyhulwk-A [place] [facility] Work Phone: [phone] Comment on above: Reference Range: 1.1 0 - 1.33 Chloride [Moles/Vol] 103 mmol/L 98 - 107 MG-S urgery-W [place] [facility] Work Phone: CO2 (Bld) [Partial pressure] 43 {mmHg} above high threshold 38 - 42 QN-Wdgespc-E [place] [facility] Work Phone: Glucose [Mass/Vol] 161 mg/dL above high threshold 74 - 99 TQ-Ccmaoyx-X [facility] [facility] Work Phone: Lactate [Moles/Vol] 1.3 mmol/L 0.4 - 2.0 MG-Ramirez rgery-W [place] [facility] Work Phone: [phone] Potassium [Moles/Vol] 4.3 mmol/L 3.5 - 5.3 MG- Surgery-W [facility] [facility] Work Phone: Sodium [Moles/Vol] 132 mmol/L below low threshold 136 - 145 CR-Vrrcmwg-F [place] [facility] Work Phone: Calcium.ionized (Bld) [Moles/Vol] 1.21 mmol/L See Below UJ-Apkpaum-N [place] [facility] Work Phone: Comment on above: Reference Range: 1.1 0 - 1.33 Chloride [Moles/Vol] 103 mmol/L 98 - 107 MG-S urgery-W [place] [facility] Work Phone: [phone] CO2 (Bld) [Partial pressure] 44 {mmHg} above high threshold 38 - 42 UR-Ydpfylh-S [place] [facility] Work Phone: [phone] Glucose [Mass/Vol] 185 mg/dL above high threshold 74 - 99 LH-Eabjnte-Z [facility] [facility] Work Phone: [phone] Lactate [Moles/Vol] 1.0 mmol/L 0.4 - 2.0 MG-Ramirez rgery-W [facility] [facility] Work Phone: Potassium [Moles/Vol] 4.6 mmol/L 3.5 - 5.3 MG- Surgery-W [facility] [facility] Work Phone: [phone] Sodium [Moles/Vol] 131 mmol/L below low threshold 136 - 145 HP-Yijsvdc-Z [facility] [facility] Work Phone: [phone] Calcium.ionized (Bld) [Moles/Vol] 1.24 mmol/L See Below KA-Xgoszud-O [facility] [facility] Work Phone: Comment on above: Reference Range: 1.1 0 - 1.33 Chloride [Moles/Vol] 101 mmol/L 98 - 107 MG-S urgery-W [facility] [facility] Work Phone: CO2 (Bld) [Partial pressure] 42 {mmHg} 38 - 42 EC-Fprxfbi-P [facility] [facility] Work Phone: [phone] Glucose [Mass/Vol] 143 mg/dL above high threshold 74 - 99 HU-Jdflvce-L [place] [facility] Work Phone: [phone] Lactate [Moles/Vol] 0.9 mmol/L 0.4 - 2.0 MG-Ramirez rgery-W [facility] [facility] Work Phone: [phone] Potassium [Moles/Vol] 4.3 mmol/L 3.5 - 5.3 MG- Surgery-W [place] [facility] Work Phone: [phone] Sodium [Moles/Vol] 132 mmol/L below low threshold 136 - 145 LX-Fygsfay-Q [facility] [facility] Work Phone: [phone] Glucose [Mass/Vol] 162 mg/dL above high threshold 74 - 99 LT-Bpfaxuu-Y [place] [facility] Work Phone: [phone] Otheron 02-15-2020 Albumin BCP dye [Mass/Vol] 3.7 g/dL 3.4 - 5.0 EK-Wbteljn-D [facility] [facility] Work Phone: ALT With P-5'-P [Catalytic activity/Vol] 60 U/L above high threshold 10 - 52 TH-Fdpheop-A [facility] [facility] Work Phone: Comment on above: Patients treated wit h Sulfasalazine may generate falsely decreased results for ALT. AST With P-5'-P [Catalytic activity/Vol] 65 U/L above high threshold 9 - 39 AO-Upcxmbv-T [place] [facility] Work Phone: [phone] Erythrocyte distribution width (RBC) [Ratio] 12.9 % See Below VY-Hnyrhnv-I [place] [facility] Work Phone: [phone] Comment on above: Reference Range: 11. 5 - 14.5 MCHC (RBC) [Mass/Vol] 34.4 g/dL See Below MG- Surgery-W [facility] [facility] Work Phone: Comment on above: Reference Range: 32. 0 - 36.0 68 {mL/min/1.73m2} >60 MG-Donn mo-W [facility] [facility] Work Phone: Comment on above: CALCULATIONS OF ELIZABETH MATED GFR ARE PERFORMED USING THE MDRD STUDY EQUATION FOR THE IDMS-TRACEABLE CREATININE METHODS. CLIN CHEM 2007;53:766-72 56 {mL/min/1.73m2} Abnormal >60 MG-Donn mo-W [place] [facility] Work Phone: Anion gap (Bld) [Moles/Vol] 10 mmol/L 10 - 25 CZ-Wwmfbrv-F [place] [facility] Work Phone: [phone] -2.0 mmol/L -2.0 - 3.0 IO-Sietkyp-B [facility] [facility] Work Phone: % 94 - 100 VL-Dppuagu-G [place] [facility] Work Phone: [phone] Albumin BCP dye [Mass/Vol] 4.0 g/dL 3.4 - 5.0 RM-Jnxitog-G [facility] [facility] Work Phone: [phone] ALT With P-5'-P [Catalytic activity/Vol] 64 U/L above high threshold 10 - 52 ZP-Nucqfvz-U [place] [facility] Work Phone: Comment on above: Patients treated wit h Sulfasalazine may generate falsely decreased results for ALT. AST With P-5'-P [Catalytic activity/Vol] 71 U/L above high threshold 9 - 39 AJ-Fsnrbny-J [place] [facility] Work Phone: [phone] Erythrocyte distribution width (RBC) [Ratio] 13.1 % See Below YB-Jytxupv-F [place] [facility] Work Phone: [phone] Comment on above: Reference Range: 11. 5 - 14.5 MCHC (RBC) [Mass/Vol] 34.5 g/dL See Below MG- Surgery-W [place] [facility] Work Phone: Comment on above: Reference Range: 32. 0 - 36.0 59 {mL/min/1.73m2} Abnormal >60 MG-Donn mo-W [place] [facility] Work Phone: Comment on above: CALCULATIONS OF ELIZABETH MATED GFR ARE PERFORMED USING THE MDRD STUDY EQUATION FOR THE IDMS-TRACEABLE CREATININE METHODS. CLIN CHEM 2007;53:766-72 49 {mL/min/1.73m2} Abnormal >60 MG-Donn mo-W [place] [facility] Work Phone: [phone] Anion gap (Bld) [Moles/Vol] 14 mmol/L 10 - 25 JK-Azejvho-T [facility] [facility] Work Phone: [phone] -4.9 mmol/L below low threshold -2.0 - 3.0 MU-Prehmxk-O [facility] [facility] Work Phone: % 94 - 100 BD-Coyacqp-Y [facility] [facility] Work Phone: [phone] Anion gap (Bld) [Moles/Vol] 10 mmol/L 10 - 25 US-Dafmely-H [facility] [facility] Work Phone: -1.8 mmol/L -2.0 - 3.0 LD-Loattyg-S [facility] Work Phone: % 94 - 100 IY-Jtzewdm-J [facility] [facility] Work Phone: [phone] Anion gap (Bld) [Moles/Vol] 9 mmol/L below low threshold 10 - 25 VH-Zsiqoyg-I [facility] [facility] Work Phone: -1.5 mmol/L -2.0 - 3.0 DW-Hqphjrr-S [facility] [facility] Work Phone: 100 % 94 - 100 HZ-Ovzdbdd-J [facility] [facility] Work Phone: [phone] Anion gap (Bld) [Moles/Vol] 11 mmol/L 10 - 25 EG-Jeogwrs-Q [facility] [facility] Work Phone: -3.9 mmol/L below low threshold -2.0 - 3.0 TG-Pkfvavj-V [facility] [facility] Work Phone: [phone] 100 % 94 - 100 HG-Tmypegj-R [facility] [facility] Work Phone: [phone] Anion gap (Bld) [Moles/Vol] 10 mmol/L 10 - 25 AK-Qbuxpnm-L [facility] [facility] Work Phone: 100 % 94 - 100 DA-Nsewdoy-N [facility] Work Phone: -4.1 mmol/L below low threshold -2.0 - 3.0 MQ-Mcjniif-C [facility] [facility] Work Phone: [phone] Anion gap (Bld) [Moles/Vol] 13 mmol/L 10 - 25 XS-Cvqfpwz-A [facility] Work Phone: -3.0 mmol/L below low threshold -2.0 - 3.0 QZ-Dhtlgql-U [facility] Work Phone: 100 % 94 - 100 EX-Upozwpo-W [facility] Work Phone: [phone] Coronavirus 2019 RNA by PCR, Screening Asymptomticon 02-13-2020 Coronavirus 2019 RNA by PCR, Screening Asymptomtic NOT DETECTED See Below EP-Dcxhorw-A [facility] Work Phone: Comment on above: SOURCE: Nasal, Nasop haryngealReference Range: Not Detected.This assay is designed to detect SARS-CoV-2 based on replication of specific regions of the RNA from the SARS-CoV-2 virus. A Not Detected result does not preclude 2019-nCoV infection since the adequacy of sample collection and/or low viral burden may result in presence of viral nucleic acids below the clinical sensitivity of this test method. Fact sheet for providers: https://www.fda.gov/media/541654/downloadFact sheet for patients: https://www.fda.gov/media/414354/downloadThis test has received FDA Emergency Use Authorization [EUA] and has been verified by [facility] ([facility]). This test is only authorized for the duration of time that circumstances exist to justify the authorization of the emergency use of in vitro diagnostic tests for the detection of SARS-CoV-2 virus and/or diagnosis of COVID-19 infection under section 564(b)(1) of the Act, 21 U.S.C. 360bbb-3(b)(1), unless the authorization is terminated or revoked sooner. [facility] is certified under CLIA-88 as qualified to perform high complexity testing. Testing is performed in the [facility] laboratories located at [address] [place] [address]. Cancer Antigen, GI Ca 19-9on 02-11-2020 Cancer Ag 19-9 Qn 35.46 U/mL Abnormal <35.00 MG-Surg skylar-W [facility] [facility] Work Phone: Comment on above: CA 19-9 testing is p erformed by chemiluminescent immunoassay using the [place] Values obtained with different analytic methods cannot be used interchangeably.. Serum CA 19-9 measurement is indicated for the serial measurement of CA 19-9 to aid in the management of patients diagnosed with cancers of the exocrine pancreas. This assay is not intended for screening or diagnosis of cancer in the general population. The results must not be used as the sole means for clinical diagnosis or patient management decisions.. Patients known to be genotypically negative for the Alvarado blood group antigens will be unable to produce CA 19-9 antigen, even in malignant tissue. Phenotyping for the presence of the Alvarado antigen may be insufficient to detect true Alvarado antigen negative individuals.. The results must not be used as the sole means for clinical diagnosis or patient management decisions. Hematologyon 02-11-2020 ABO group Nom (Bld) A MG-Ramirez rgery-W [facility] [facility] Work Phone: aPTT Coag (PPP) [Time] 27 {sec} 25 - 35 MG -Surgery-W [facility] [facility] Work Phone: Comment on above: THE APTT IS NO LONGE R USED FOR MONITORING UNFRACTIONATED HEPARIN THERAPY. FOR MONITORING HEPARIN THERAPY, USE THE HEPARIN ASSAY. Blood group antibody screen Ql Negative EK-Hffnwyz-J [place] [facility] Work Phone: Hematocrit (Bld) [Volume fraction] 37.1 % below low threshold See Below AL-Dshmxwi-L [place] [facility] Work Phone: Comment on above: Reference Range: 41. 0 - 52.0 Hemoglobin (Bld) [Mass/Vol] 13.2 g/dL below low threshold See Below EU-Dquahcb-R [place] [facility] Work Phone: Comment on above: Reference Range: 13. 5 - 17.5 INR Coag (PPP) [Relative time] 1.0 {INR} 0.9 - 1.1 HH-Iqnfcyg-Q [facility] Work Phone: [phone] MCV (RBC) [Entitic vol] 86 fL 80 - 100 M G-Surgery-W [facility] Work Phone: [phone] Platelets (Bld) [#/Vol] 185 {x10E9/L} 150 - 450 IY-Rhegszh-N [facility] Work Phone: [phone] PT Coag (PPP) [Time] 11.7 {sec} See Below MG-S urgery-W [facility] Work Phone: Comment on above: Reference Range: 10. 1 - 13.3 RBC (Bld) [#/Vol] 4.31 {x10E12/L} below low threshold See Below FJ-Pghwxiq-N [place] [facility] Work Phone: Comment on above: Reference Range: 4.5 0 - 5.90 Rh immune globulin screen (Bld) [Interp] Positive MG-Surgery -W [place] [facility] Work Phone: [phone] WBC (Bld) [#/Vol] 0.0 {/100_WBC} 0.0-0.0 [facility] Work [facility]: [phone] WBC (Bld) [#/Vol] 8.7 {x10E9/L} 4.4 - 11.3 MG-S urgery-W [facility] Work Phone: Hemoglobin A1Con 02-11-2020 HbA1c (Bld) [Mass fraction] 318 {MG/DL} NQ-Tpkhdad-C [facility] Work Phone: HbA1c (Bld) [Mass fraction] 12.7 % YV-Srfjgyd-D [facility] Work Phone: Comment on above: Diagnosis of Diabete s-Adults Non-Diabetic: < or = 5.6% Increased risk for developing diabetes: 5.7-6.4% Diagnostic of diabetes: > or = 6.5%. Monitoring of Diabetes Age (y) Therapeutic Goal (%) Adults: >18 <7.0 Pediatrics: 13-18 <7.5 7-12 <8.0 0- 6 7.5-8.5 [employer]. Diabetes Care 33(S1), Mar 2009. Metabolic Panelon 02-11-2020 ALP [Catalytic activity/Vol] 77 U/L 33 - 136 ZZ-Qhpygzb-P [facility] Work Phone: Anion gap [Moles/Vol] 16 mmol/L 10 - 20 MG- Surgery-W [facility] Work Phone: Bilirubin [Mass/Vol] 0.3 mg/dL 0.0 - 1.2 MG-S urgery-W [facility] Work Phone: Calcium [Mass/Vol] 10.3 mg/dL 8.6 - 10.6 MG-Donn mo-W [facility] Work Phone: [phone] Chloride [Moles/Vol] 99 mmol/L 98 - 107 MG-S urgery-W [facility] Work Phone: CO2 [Moles/Vol] 26 mmol/L 21 - 32 MG-Surger y-W [facility] Work Phone: Creatinine [Mass/Vol] 0.98 mg/dL See Below MG- Surgery-W [facility] Work Phone: Comment on above: Reference Range: 0.5 0 - 1.30 Glucose [Mass/Vol] 326 mg/dL above high threshold 74 - 99 UX-Qeqwtky-Q [facility] Work Phone: Potassium [Moles/Vol] 4.3 mmol/L 3.5 - 5.3 MG- Surgery-W [facility] Work Phone: Protein [Mass/Vol] 7.0 g/dL 6.4 - 8.2 MG-Donn mo-W [facility] Work Phone: [phone] Sodium [Moles/Vol] 137 mmol/L 136 - 145 MG-Donn mo-W [facility] Work Phone: Urea nitrogen [Mass/Vol] 31 mg/dL above high threshold 6 - 23 QY-Kzamwaw-O [facility] Work Phone: Otheron 02-11-2020 Albumin BCP dye [Mass/Vol] 4.1 g/dL 3.4 - 5.0 MT-Sncclkf-P [facility] Work Phone: ALT With P-5'-P [Catalytic activity/Vol] 15 U/L 10 - 52 BB-Tijgjox-G [place] [facility] Work Phone: Comment on above: Patients treated wit h Sulfasalazine may generate falsely decreased results for ALT. Amphetamines Screen Ql (U) Negative NEGATIVE VO-Omtglgp-Q [facility] Work Phone: Comment on above: CUTOFF LEVEL: 500 NG /ML Cross-reactivity has been reported with high concentrations of the following drugs: buproprion, chloroquine, chlorpromazine, ephedrine, mephentermine, fenfluramine, phentermine, phenylpropanolamine, pseudoephedrine, and propranolol. AST With P-5'-P [Catalytic activity/Vol] 15 U/L 9 - 39 EN-Pjrowzj-F [facility] Work Phone: [phone] Benzoylecgonine Screen Ql (U) Negative NEGATIVE US-Pmjyxar-I [facility] Work Phone: Comment on above: CUTOFF LEVEL: 150 NG /ML Carboxy tetrahydrocannabinol (U) [Mass/Vol] >500 [facility] Work [facility]: Comment on above: INTERPRETIVE INFORMA TION: THC Metabolite, Urine, QuantitativeMethodology: Quantitative Liquid Chromatography-Tandem Mass SpectrometryPositive cutoff: 15 ng/mLFor medical purposes only; not valid for forensic use.The drug analyte detected in this assay, 9-carboxy THC, is a metabolite of vzsuu-6-mzxionfuuhcktopvldxv (THC). Detection of 9-carboxy THC suggests use of, or exposure to, a product containing THC. This test cannot distinguish between prescribed or non-prescribed forms of THC, nor can it distinguish between active or passive use. The 9-carboxy THC metabolite can be detected in urine for several weeks. Normalization of results to creatinine concentration can help document elimination or suggest recent use, when specimens are collected at least one week apart.Test developed and characteristics determined by [facility]. See Compliance Statement B: Boardvote/CSPerformed By: [facility] [place] [id number] Director: Aniyah Belle MD Erythrocyte distribution width (RBC) [Ratio] 12.7 % See Below [facility]ivcv[facility] Work [facility]: Comment on above: Reference Range: 11. 5 - 14.5 MCHC (RBC) [Mass/Vol] 35.6 g/dL See Below MG- Surgery-W [place] [facility] Work Phone: Comment on above: Reference Range: 32. 0 - 36.0 Methadone Screen Ql (U) Negative NEGATIVE M G-Surgery-W [facility] Work Phone: Comment on above: CUTOFF LEVEL: 150 NG /ML The metabolite Y-urjyt-ihsdygivavnopg (LAAM) is not detected by this method in concentrations that would be found in the urine of patients on LAAM therapy. Opiates Screen Ql (U) Negative NEGATIVE [facility] Work [facility]: Comment on above: CUTOFF LEVEL: 300 NG /ML The opiate screen does not detect fentanyl, meperidine, or tramadol. Oxycodone is not consistently detected (refer to Oxycodone Screen, Urine result). Oxycodone+Oxymorphone Screen Ql (U) Negative NEGATIVE FP-Uxilqrl-H [employer] [facility] Work Phone: Comment on above: CUTOFF LEVEL: 100 NG /ML This test will accurately detect both oxycodone and oxymorphone. SEE BELOW OM-Vpplwfx-R [employer] [facility] Work Phone: Comment on above: Drug screen results are presumptive and should not be used to assess compliance with prescribed medication. Definitive confirmatory drug testing has been added to this sample for any positive screen result and will be reported separately. .Toxicology screening results are reported qualitatively. The concentration must be greater than or equal to the cutoff to be reported as positive. The concentration at which the screening test can detect an individual drug or metabolite varies. The absence of expected drug(s) and/or drug metabolite(s) may indicate non-compliance, inappropriate timing of specimen collection relative to drug administration, poor drug absorption, diluted/adulterated urine, or limitations of testing. For medical purposes only; not valid for forensic use. .Interpretive questions should be directed to the laboratory medical directors. Canceled FJ-Axjxqfs-U [employer] [facility] Work Phone: Comment on above: Drug screen results are presumptive and should not be used to assess compliance with prescribed medication. Contact the performing [facility] laboratory to add-on definitive confirmatory testing if clinically indicated. .Toxicology screening results are reported qualitatively. The concentration must be greater than or equal to the cutoff to be reported as positive. The concentration at which the screening test can detect an individual drug or metabolite varies. The absence of expected drug(s) and/or drug metabolite(s) may indicate non-compliance, inappropriate timing of specimen collection relative to drug administration, poor drug absorption, diluted/adulterated urine, or limitations of testing. For medical purposes only; not valid for forensic use. .Interpretive questions should be directed to the laboratory medical directors. TEST DRUG SCREEN,URI NE WAS CANCELLED, 02/11/2020 15:05 RBS update.. >60 >60 PX-Bjqeylv-U [employer] [facility] Work Phone: Comment on above: CALCULATIONS OF ELIZABETH MATED GFR ARE PERFORMED USING THE MDRD STUDY EQUATION FOR THE IDMS-TRACEABLE CREATININE METHODS. CLIN CHEM 2007;53:766-72 Urinalysison 02-11-2020 Barbiturates Screen Ql (U) Negative NEGATIVE UT[facility]mzmhba[facility] Work Phone: Comment on above: CUTOFF LEVEL: 200 NG /ML Benzodiazepines Ql (U) Negative NEGATIVE MG -[facility] Work Phone: Comment on above: CUTOFF LEVEL: 200 NG /ML Cannabinoids Screen Ql (U) Positive Abnormal NEGATIVE GS-Xlwlixg[facility] Work Phone: Comment on above: CUTOFF LEVEL: 50 NG/ ML Phencyclidine Ql (U) Negative NEGATIVE MG-S [facility]gery[facility] Work Phone: Comment on above: CUTOFF LEVEL: 25 NG/ ML Cross-reactivity has been reported with dextromethorphan. CT [facility]BDOMEN AND PELVIS W IV CONTRAST Patient Name: ALTAGRACIA CONWAY STUDY: CT ABDOMEN AND PELVIS W IV CONTRAST; 01/22/2020 2:50 pm INDICATION: evaluate pancreatic lesion,biliary ductal dilatation, PD dilation, h/o DM, f/hx of pancreas cancer Obstruction of bile duct Diarrhea, unspecified Other specified diseases of pancreas . Patient is a 64-year-old man who presented with pancreatic and biliary duct dilatation, with MRCP and ERCP findings concerning for pancreatic mass and malignant stricture. Brushings showed atypical cells suspicious for, but non-diagnostic of pancreatic carcinoma. Repeat ERCP 01/11/2020 showed similar findings. This study was ordered for further evaluation of pancreatic head mass. COMPARISON: Outside hospital CT dated 12/07/2019 and MRCP 11/09/2019. ACCESSION NUMBER(S): [id number] ORDERING CLINICIAN: NASIM GUILLAUME TECHNIQUE: CT of the abdomen and pelvis was performed. Standard contiguous axial images were obtained at 3 mm slice thickness through the abdomen and pelvis. Coronal and sagittal reconstructions at 3 mm slice thickness were performed. Arterial phase images through the abdomen were also acquired. 90 ml of contrast Isovue 370 were administered intravenously without immediate complication. FINDINGS: LOWER CHEST: The visualized lung bases are clear. The heart is not enlarged and there is no significant pericardial effusion. There may be a tiny hiatal hernia. ABDOMEN: LIVER: No focal hepatic lesions. BILE DUCTS: Status post placement of a common bile duct stent which terminates near the ampulla. There is air within the proximal and mid aspects of the stent, left greater than right pneumobilia, and air in the gallbladder lumen, all suggesting stent patency. GALLBLADDER: Nondependent gas suggest biliary stent patency. No evidence for acute cholecystitis. PANCREAS: The body and tail of the pancreas are atrophic, and pancreatic duct is dilated, measuring up to 6 mm at the body-neck junction, mildly increased from [address] 11/09/2019. There is abrupt distal tapering at the level of the pancreatic head, where there is a ill-defined, hypoenhancing soft tissue mass. The mass is centered between the splenic vein and the 2nd stage of the duodenum and measures approximately 2.6 x 2.2 x 3.0 cm (transaxial by craniocaudal, series 402, image 48 and series 403, image 60). The mass abuts the duodenum without lexy invasion or evidence for obstruction. There is approximately 180 degrees of SMV abutment, and slight contour abnormality of the SMV which remains patent (series 402, image 45). The SMA and celiac artery are not involved. There is a 5 mm hypodense lesion in the tail the pancreas which likely represents a dilated side branch (series 403, image 72). SPLEEN: No significant abnormality. ADRENAL GLANDS: No significant abnormality. KIDNEYS AND URETERS: There is nonspecific bilateral perinephric stranding. There is a subcentimeter cortical hypodensity in the right kidney which is too small to definitively characterize, but statistically most likely represents a simple cyst. No hydronephrosis or hydroureter. PELVIS: BLADDER: No significant normality REPRODUCTIVE ORGANS: Mildly enlarged prostate gland, measuring 4.9 x 3.0 cm (series 501, image 133 and series 503, image 70). BOWEL: The stomach is unremarkable. The small and large bowel are normal in caliber and demonstrate no wall thickening. The appendix is not definitely visualized. There is however no pericecal stranding or fluid. VESSELS: Involvement of the mesenteric vasculature by the pancreatic head mass is detailed above. There are mild atherosclerotic changes of the infrarenal abdominal aorta and its branches without aneurysm the major abdominal and pelvic veins are patent. PERITONEUM/RETROPERITON EUM/LYMPH NODES: There is a 9 mm peripancreatic lymph node superior to the above described pancreatic head mass (series 501, image 37). There are few additional sub 5 mm lymph nodes in the upper abdomen. No pelvic lymphadenopathy. No free fluid, loculated fluid collection, or free air. BONES AND ABDOMINAL WALL: No suspicious osseous lesions are identified. There are degenerative changes of the lower thoracic and lumbar spine, worst at L5-S1 with loss of intervertebral disc height, vacuum disc phenomena, disc calcification, and mild facet arthropathy. The abdominal wall soft tissues are unremarkable. Unchanged upper abdominal subcutaneous soft tissue nodule on image 27 of 86 IMPRESSION: 1. Pancreatic head mass measuring 2.6 x 2.2 x 3.0 cm, with 180 degree abutment and contour abnormality of the patent SMV, with increasing pancreatic ductal dilatation, highly concerning for pancreatic adenocarcinoma. The superior mesenteric artery and celiac artery are not involved. Malignant involvement of a 9 mm peripancreatic lymph node is not excluded. 2. Status post common bile duct stent placement. Air within the stent, left greater than right pneumobilia, and air within the gallbladder all suggest stent patency. 3. Enlarged prostate. Please correlate with PSA. I personally reviewed the images/study and I agree with the findings as stated. This study was interpreted at [facility], [place], [place]. Electronically signed by: RAGHAV GUERRERO MD Normal [facility] CT Abdomen and Pelvis with I V Contraston 01-22-2020 CT Abdomen and Pelvis W contrast IV Interpreted by: RAGHAV GUERRERO01/24/20 16:45MRN: [id number] Name: ALTAGRACIA CONWAY STUDY:CT ABDOMEN AND PELVIS W IV CONTRAST; 01/22/2020 2:50 pm INDICATION:evaluate pancreatic lesion,biliary ductal dilatation, PD dilation,h/o DM, f/hx of pancreas cancer Obstruction of bile duct Diarrhea,unspecified Other specified diseases of pancreas . Patient is [id number] man who presented with pancreatic and biliary ductdilatation, with MRCP and ERCP findings concerning for pancreaticmass and malignant stricture. Brushings showed atypical cellssuspicious for, but non-diagnostic of pancreatic carcinoma. RepeatERCP 01/11/2020 showed similar findings. This study was ordered forfurther evaluation of pancreatic head mass. COMPARISON:Outside hospital CT dated 12/07/2019 and MRCP 11/09/2019. ORDERING CLINICIAN:NASIM GUILLAUME TECHNIQUE:CT of the abdomen and pelvis was performed. Standard contiguousaxial images were obtained at 3 mm slice thickness through theabdomen and pelvis. Coronal and sagittal reconstructions at 3 mmslice thickness were performed. Arterial phase images through theabdomen were also acquired. 90 ml of contrast Isovue 370 were administered intravenously withoutimmediate complication. FINDINGS:LOWER CHEST:The visualized lung bases are clear. The heart is not enlarged andthere is no significant pericardial effusion. There may be a tinyhiatal hernia. ABDOMEN: LIVER:No focal hepatic lesions. BILE DUCTS:Status post placement of a common bile duct stent which terminatesnear the ampulla. There is air within the proximal and mid aspects ofthe stent, left greater than right pneumobilia, and air in thegallbladder lumen, all suggesting stent patency. GALLBLADDER:Nondependen t gas suggest biliary stent patency. No evidence for acutecholecystitis. PANCREAS:The body and tail of the pancreas are atrophic, and pancreatic ductis dilated, measuring up to 6 mm at the body-neck junction, mildlyincreased from [address] 11/09/2019. There is abrupt distaltapering at the level of the pancreatic head, where there is aill-defined, hypoenhancing soft tissue mass. The mass is centeredbetween the splenic vein and the 2nd stage of the duodenum andmeasures approximately 2.6 x 2.2 x 3.0 cm (transaxial bycraniocaudal, series 402, image 48 and series 403, image 60). Themass abuts the duodenum without lexy invasion or evidence forobstruction. There is approximately 180 degrees of SMV abutment, andslight contour abnormality of the SMV which remains patent (, image 45). The SMA and celiac artery are not involved. There is a 5 mm hypodense lesion in the tail the pancreas whichlikely represents a dilated side branch (series 403, image 72). SPLEEN:No significant abnormality. ADRENAL GLANDS:No significant abnormality. KIDNEYS AND URETERS:There is nonspecific bilateral perinephric stranding. There is asubcentimeter cortical hypodensity in the right kidney which is toosmall to definitively characterize, but statistically most likelyrepresents a simple cyst. No hydronephrosis or hydroureter. PELVIS: BLADDER:No significant normality REPRODUCTIVE ORGANS:Mildly enlarged prostate gland, measuring 4.9 x 3.0 cm (series 501,image 133 and series 503, image 70). BOWEL:The stomach is unremarkable. The small and large bowel are normalin caliber and demonstrate no wall thickening. The appendix is notdefinitely visualized. There is however no pericecal stranding orfluid. VESSELS:Involvement of the mesenteric vasculature by the pancreatic head massis detailed above. There are mild atherosclerotic changes of theinfrarenal abdominal aorta and its branches without aneurysm themajor abdominal and pelvic veins are patent. PERITONEUM/RETROPERITON EUM/LYMPH NODES:There is a 9 mm peripancreatic lymph node superior to the abovedescribed pancreatic head mass (series 501, image 37). There are fewadditional sub 5 mm lymph nodes in the upper abdomen. No pelviclymphadenopathy. No free fluid, loculated fluid collection, or freeair. BONES AND ABDOMINAL WALL:No suspicious osseous lesions are identified. There are degenerativechanges of the lower thoracic and lumbar spine, worst at L5-S1 withloss of intervertebral disc height, vacuum disc phenomena, disccalcification, and mild facet arthropathy. The abdominal wall soft tissues are unremarkable. Unchanged upperabdominal subcutaneous soft tissue nodule on image 27 of 86 IMPRESSION:1. Pancreatic head mass measuring 2.6 x 2.2 x 3.0 cm, with 180degree abutment and contour abnormality of the patent SMV, withincreasing pancreatic ductal dilatation, highly concerning forpancreatic adenocarcinoma. The superior mesenteric artery and celiacartery are not involved. Malignant involvement of a 9 mmperipancreatic lymph node is not excluded.2. Status post common bile duct stent placement. Air within thestent, left greater than right pneumobilia, and air within thegallbladder all suggest stent patency.3. Enlarged prostate. Please correlate with PSA. I personally reviewed the images/study and I agree with the findingsas stated. This study was interpreted at [facility], [place], [place].Electronically signed by: RAGHAV GUERRERO 01/24/20 16:45 Normal [facility] Work Phone: Otheron 01-22-2020 >60 See Below PY-Qtkxbjg-I [facility] Work Phone: Comment on above: Reference Range: >60 mL/min/1.73m2 POCT eGFR is intended for Radiology screening purposes only. If patient is , multiply result by 1.21. POCT CREATININE AND GFRon Creatinine [Mass/Vol] 1.1 mg/dL 0.6 - 1.3 [facility] Comment on above: Performed By: #### P CRGF #### [facility] [address] [place], [place] [id number] GFR/1.73 sq M predicted among non-blacks MDRD (S/P/Bld) [Vol rate/Area] mL/min/{1.73_m2} Normal >60 mL/min/1.73m 2 [facility] Comment on above: Result Comment: POCT eGFR is intended for Radiology screening purposes only. If patient is , multiply result by 1.21. Performed By: #### P CRGF #### [facility] [address] [place], [place] [id number] GLUCOSE-POCTon 01-11-2020 Glucose [Mass/Vol] 138 mg/dL above high threshold 74 - 99 [facility] [place] Work Phone: Comment on above: Notify MD/RN Result Comment: Ty zamudio MD/RN Performed By: #### G FAMILIA #### [facility] [address] [place] [address] Otheron 01-11-2020 [email or web address] ?[id number] [id number]} [facility] [employer] [facility] Work Phone: Patient Name: Altagracia Canas Date: 01/11/2020 3:13 PMMRN: [id number] Number: [id number] of : 6Admit Type: OutpatientSite: [facility]Ethnicity: Not or LatinoRace: Kristian MD: Margaret Malcolm , MDProcedure: ERCPIndications: Diagnostic sampling, Bile duct stricture. Patient with h/p painless jaundince s/p ERCP with stnet placement 10/2019. EUS and ERCP 11/2019 with concern for pancreatic head mass, brushings and FNB with atypical cells suspicious for malignancy. Presents for repeat EUS with FNB as well as stent exchange. [id number] 75.Patient Profile: This is a 64 year old male. Refer to note in patient chart for documentation of history and physical.Providers: Margaret Malcolm MD (Doctor), Yane Ji, RN (Nurse), Anna Tolentino, RN (Nurse), Jerry Sosa, David TechReferring: Catherine Robles Care Team: Nasim Guillaume [facility] MEDICAL CENTERedicines: General AnesthesiaComplications : No immediate complications.Procedure : After obtaining informed consent, the scope was passed under direct vision. Throughout the procedure, the patient's blood pressure, pulse, and oxygen saturations were monitored continuously. The Endosonoscope was introduced through the mouth, and advanced to the duodenum for ultrasound examination from the stomach and duodenum. The Duodenoscope was introduced through the mouth, and advanced to the duodenum and used to inject contrast into the bile duct.Findings: A biliary stent was visible on the it software engineer film. An echoendoscope was used for examination. One stent was visualized endosonographically in the common bile duct and in the common hepatic duct. Extension of the stent was noted in the common hepatic duct. There was a suggestion of a stricture in the common bile duct. An irregular mass-like region was identified in the pancreatic head. The mass was hypoechoic. The mass measured 26 mm by 24 mm in maximal cross-sectional diameter. The endosonographic borders were poorly-defined. The remainder of the pancreas was examined. The endosonographic appearance of parenchyma and the upstream pancreatic duct indicated duct dilation to 6 mm and parenchymal atrophy. Fine needle biopsy was performed. Color Doppler imaging was utilized prior to needle puncture to confirm a lack of significant vascular structures within the needle path. Four passes were made with the 22 gauge [employer] biopsy needle using a transduodenal approach. A visible core of tissue was obtained. Preliminary cytologic examination and touch preps were performed. Final cytology results are pending. The scope was then exchanged to the duodenoscope. The esophagus was successfully intubated under direct vision. The scope was advanced from the mouth to the duodenum. The pharynx, larynx and associated structures, as well as the upper GI tract, were normal. One plastic biliary stent originating in the biliary tree was emerging from the major papilla. The stent was partially occluded. A biliary sphincterotomy had been performed. The sphincterotomy appeared open. A 0.025 inch x 270 cm angled Visiglide wire was passed into the biliary tree. The 11.5 mm balloon was passed over the guidewire and the bile duct was then deeply cannulated. Contrast was injected. I personally interpreted the bile duct images. Ductal flow of contrast was adequate. Image quality was adequate. Contrast extended to the entire biliary tree. The lower third of the main bile duct contained a single moderate stenosis. Cells for cytology were obtained by brushing in the lower third of the main bile duct x2. The biliary tree was swept with an 11.5 mm balloon starting at the bifurcation. Sludge was swept from the duct. Debris was swept from the duct. One 10 mm by 6 cm covered metal biliary stent (Viabil) was placed 5 cm into the common bile duct. Bile flowed through the stent. The stent was in good position.Moderate Sedation: N/AEstimated Blood Loss: Estimated blood loss: none.Impression: EUS: - One stent was visualized endosonographically in the common bile duct and in the common hepatic duct. - There was a suggestion of a stricture in the common bile duct. - A mass-like region was identified in the pancreatic head. Transduodenal fine needle biopsy performed, results pending. ERC: - One partially occluded stent from the biliary tree was seen in the major papilla. Removed. - Prior biliary sphincterotomy appeared open. - A single moderate biliary stricture was found in the lower third of the main bile duct. The stricture was malignant appearing. Cells for cytology obtained. - The biliary tree was swept and sludge and debris were found. - One 10 mm x 6 cm covered metal biliary stent (VIABIL) was placed into the common bile duct.Recommendation: - The patient will be observed post-procedure, until all discharge criteria are met. - Patient has a contact number available for emergencies. The signs and symptoms of potential delayed complications were discussed with the patient. Return to normal activities tomorrow. Written discharge instructions were provided to the patient. - Written discharge instructions were provided to the patient. - Resume previous diet. - Continue present medications. - Await cytology results and await path results.Procedure Code(s): --- Professional --- 00240, Endoscopic retrograde cholangiopancreatograph y (ERCP); with removal and exchange of stent(s), biliary or pancreatic duct, including pre- and post-dilation and guide wire passage, when performed, including sphincterotomy, when performed, each stent exchanged 33336, Endoscopic retrograde cholangiopancreatograph y (ERCP); with removal of calculi/debris from biliary/pancreatic duct(s) 80150, Esophagogastroduodenosc opy, flexible, transoral; with transendoscopic ultrasound-guided intramural or transmural fine needle aspiration/biopsy(s), (includes endoscopic ultrasound examination limited to the esophagus, stomach or duodenum, and adjacent structures) 02483, Endoscopic catheterization of the biliary ductal system, radiological supervision and interpretationDiagnosis Code(s): --- Professional --- K83.1, Obstruction of bile duct R93.2, Abnormal findings on diagnostic imaging of liver and biliary tract T85.590A, Other mechanical complication of bile duct prosthesis, initial encounter K86.89, Other specified diseases of pancreasCPT copyright 2019 [employer]. All rights reserved.The codes documented in this report are preliminary and upon audit lead review may be revised to meet current compliance requirements.Sandro Medina MD01/11/2020 4:58:46 PMThis report has been signed electronically.Number of Addenda: 0Note Initiated On: 01/11/2020 3:13 PM [employer] Work Phone: Fluoroscopy duration Please click on the link to view the study images Normal [employer] Work Phone: Coronavirus 2019 RNA by PCR, Screening Asymptomticon 01-09-2020 EMPLOYED IN HEALTHCARE Unknown [employer] Work Phone: FIRST COVID NASAL SWAB TEST? No [employer] Work Phone: ICU? Unknown [employer] Work Phone: Patient was hospitalized because of this condition Unknown [employer] Work Phone: RESIDENT IN CONGREGATE CARE SETTING? Unknown [employer] Work Phone: SYMPTOMATIC DEFINED BY CDC No [facility] [facility]ha[facility]N [facility] Work Phone: Coronavirus 2019 RNA by PCR, Screening Asymptomtic Unknown [employer] Work Phone: Coronavirus 2019 RNA by PCR, Screening Asymptomtic Yes [employer] [employer] Work Phone: Coronavirus 2019 RNA by PCR, Screening Asymptomtic [phone] [employer] Work Phone: Coronavirus 2019 RNA by PCR, Screening Asymptomtic NOT DETECTED See Below [employer] Work Phone: Comment on above: SOURCE: Nasal, Nasop haryngealReference Range: Not Detected.This assay is designed to detect the N, ORF1ab and/or S genes of SARS-CoV-2 via nucleic acid amplification. A Negative (NOT DETECTED) result does not preclude 2019-nCoV infection since the adequacy of sample collection and/or low viral burden may result in presence of viral nucleic acids below the clinical sensitivity of this test method. Negative (NOT DETECTED) result should not be used as the sole basis for treatment or other patient management decisions. Rather negative results should be combined with clinical observations, patient history, and epidemiological information to make patient management decisions.Fact sheet for providers: https://www.fda.gov/media/123800/downloadFact sheet for patients: https://www.fda.gov/media/709750/downloadThis test has received FDA Emergency Use Authorization (EUA) and has been verified by [facility] ([facility]). This test is only authorized for the duration of time that circumstances exist to justify the authorization of the emergency use of in vitro diagnostic tests for the detection of SARS-CoV-2 virus and/or diagnosis of COVID-19 infection under section 564(b)(1) of the Act, 21 U.S.C. 360bbb-3(b)(1), unless the authorization is terminated or revoked sooner. [facility] is certified under CLIA-88 as qualified to perform high complexity testing. Testing is performed in the [facility] laboratories located at [address] [place] [address]. GLUCOSE-POCTon 12-07-2019 Glucose [Mass/Vol] 223 mg/dL High 74 - 99 [facility] Comment on above: Performed By: #### G FAMILIA #### [facility] [address] [place] [address] Otheron 12-05-2019 NOT DETECTED See Below -[facility]-Mariama [facility] Work Phone: Comment on above: SOURCE: Nasal, Nasop haryngealReference Range: Not DetectedThis assay is designed to detect the N, ORF1ab and/or S genes of SARS-CoV-2 via nucleic acid amplification. A Negative (NOT DETECTED) result does not preclude 2019-nCoV infection since the adequacy of sample collection and/or low viral burden may result in presence of viral nucleic acids below the clinical sensitivity of this test method. Negative (NOT DETECTED) result should not be used as the sole basis for treatment or other patient management decisions. Rather negative results should be combined with clinical observations, patient history, and epidemiological information to make patient management decisions.Fact sheet for providers: https://www.fda.gov/media/542549/downloadFact sheet for patients: https://www.fda.gov/media/626131/downloadThis test has received FDA Emergency Use Authorization (EUA) and has been verified by [facility] ([facility]). This test is only authorized for the duration of time that circumstances exist to justify the authorization of the emergency use of in vitro diagnostic tests for the detection of SARS-CoV-2 virus and/or diagnosis of COVID-19 infection under section 564(b)(1) of the Act, 21 U.S.C. 360bbb-3(b)(1), unless the authorization is terminated or revoked sooner. [facility] is certified under CLIA-88 as qualified to perform high complexity testing. Testing is performed in the [facility] laboratories located at [address] [place] [address]. MRCP Abdomen w/wo Contraston 11-09-2019 MRCP Abdomen WO and W contrast IV Please click on the link to view the study images Normal [facility] Work Phone: Otheron 11-09-2019 Please click on the link to view the study images Normal [facility] Work Phone: POINT OF CARE GLUCOSEon 08-10 Glucose mass conc 131 mg/dL Critically high 74-106 Th [facility] Comment on above: Performed By: #### P OCGLUC ####[facility] Bqlyavlhpl8007 [address] XR KUB 1 VIEWon 08-29-2017 XR KUB 1 VIEW 1400 [place] [address] Patient: ALTAGRACIA CONWAY Exam Date: 08/29/2017DOB: 1955 Gender:M : DR CLARENCE SYED . Admission #: [id number] : DR. TAYO DOCKERY Order #: [id number] HERE TO VIEW EXAM RADIOLOGY REPORT PROCEDURE: RADIOGRAPH KUB 1 VIEW COMPARISON: XR RETROGRADE PYELOGRAM, 10/20/2014. INDICATIONS: Pre surgical for left renal stone. FINDINGS: KIDNEY/URETER - RIGHT: No visible renal or ureteral calcifications.KIDNEY/U RETER - LEFT: No visible renal or ureteral calcifications.PELVIS: No visible ureteral calcifications. Pelvic calcifications favor phleboliths. BOWEL: No abnormal dilation or deviation.BONES: No acute abnormality. OTHER: Negative. No abnormal gaseous collections. CONCLUSION: 1. No visible urinary tract calculi. Dictated by: Beena Oliveros M.D. on 08/29/2017 at 10:24 Approved by: Beena Oliveros M.D. on 08/29/2017 at 10:25 Normal [facility] CALCULI, URINARYon 8 Ammonium acid urate Normal [facility] Comment on above: Performed By: #### C ALCULI ####[facility] Oqnxpvlmlu3905 [address] Ca hydrogen phos. Normal The [facility] Comment on above: Performed By: #### C ALCULI ####[facility] Nstyxmygoe0834 [address] [place] oxalate dihydrate Normal [facility] Comment on above: Performed By: #### C ALCULI ####[facility] Pxyqnzpizk5594 [address] [place] oxalate monohydr. 15 % Normal [facility] Comment on above: Performed By: #### C ALCULI ####[facility] Kaovmopwdm5131 [address] [place] Calcium 02 % Normal The [facility] Comment on above: Performed By: #### C ALCULI ####[facility] Yyrpcgwdlg6899 [address] [place] Calcium Normal [facility] Comment on above: Performed By: #### C ALCULI ####[facility] [address] [place] [address] Dee Cellular Material Normal The [facility] Comment on above: Performed By: #### C ALCULI ####[facility] Xohitqbvhl7706 [address] [place] Cholesterol Normal The [facility] Comment on above: Performed By: #### C ALCULI ####[facility] Wnjxheqfth7271 [address] Comment Normal The [facility] Comment on above: Performed By: #### C ALCULI ####[facility] Phbuyaqjfr9909 [address] Comment Note: Normal The [facility] Comment on above: Result Comment: Plea se do not submit specimens on Q-Tips, in tape, on filters, or inliquids such as blood, urine or formalin. This may cause unnecessarybiohazards, erroneous results and/or delay in the processing of thespecimen. Performed By: #### C ALCULI ####[facility] Oh[address] [place] [address] Comment: Comment Normal The [facility] Comment on above: Result Comment: Arabella boykin questions regarding Calculi Analysis contact [facility] at:[phone]. Performed By: #### C ALCULI ####[facility] Uzmqfqzroe2889 [address] Composition Comment Normal [facility] Comment on above: Result Comment: Perc entage (Represents the % composition) Performed By: #### C ALCULI ####[facility] Ifzejtkmsa5787 [address] Cystine Normal [facility] Comment on above: Performed By: #### C ALCULI ####[facility] Tkwrpdzgpi5060 [address] Disclaimer: Comment Normal [facility] Comment on above: Result Comment: This test was developed and its performance characteristicsdetermined by [facility]. It has not been cleared or approvedby the Food and Drug Administration. Performed By: #### C ALCULI ####[facility] Dydbpbhcmk9796 [address] Dried Blood [facility] Comment on above: Performed By: #### C ALCULI ####[facility] Pdpkljkfpw6926 [address] Magnesium [facility] Comment on above: Performed By: #### C ALCULI ####[facility] Crcshfvbet4677 [address] Newberyite [facility] Comment on above: Performed By: #### C ALCULI ####[facility] Ziawykgabj1350 [address] Nidus No Nidus visualized Normal [facility] Comment on above: Performed By: #### C ALCULI ####[facility] Snvkxldfgx7646 [address] Please note: Comment Normal [facility] Comment on above: Result Comment: Calc donato report without photograph will follow via computer, mail,or insurance account executive delivery. Performed By: #### C ALCULI ####[facility] Vzoheemwyd9664 [address] [place] Shell Normal The [facility] Comment on above: Performed By: #### C ALCULI ####[facility] Arlywzutdb9695 [address] [place] Size Comment Normal The [facility] Comment on above: Result Comment: Spec imen received as fragments. Performed By: #### C ALCULI ####[facility] Fbuekzfhmc4743 [address] [place] Sodium Normal The [facility] Comment on above: Performed By: #### C ALCULI ####[facility] Oyrqsgcayy0205 [address] [place] Surface Crystals Normal The [facility] Comment on above: Performed By: #### C ALCULI ####[facility] Wbbmngnuco7931 [address] [place] Triamterene Normal [facility] Comment on above: Performed By: #### C ALCULI ####[facility] Tnpaqnlrpg7870 [address] [place] Urate 83 % Normal The [facility] Comment on above: Performed By: #### C ALCULI ####[facility] Ldkekyqrci0265 [address] [place] Uric acid dihydrate Normal [facility] Comment on above: Performed By: #### C ALCULI ####[facility] Ecbluqkwmt1316 [address] [place] Urine, color [place] Normal The [facility] Comment on above: Performed By: #### C ALCULI ####[facility] Nmhuvlcerq5463 [address] [place] Weight 2722.8 mg Normal [facility] Comment on above: Performed By: #### C ALCULI ####[facility] Sajvqipxmr5329 [address] [place] POINT OF CARE GLUCOSEon 06-0 Glucose mass conc 136 mg/dL Critically high 74-106 Th e [facility] Comment on above: Performed By: #### P OCGLUC ####[facility] Qxxbrtorln6837 [place] [id number] CBC AUTO DIFFon 08-07-2017 Basophils Auto #/vol (Bld) 0.1 103/ul Normal 0.0-0.1 [facility] Comment on above: Performed By: #### C BC ####[facility] Whyflhpqmg[address] [place], [place] [address] Basophils/100 WBC Auto (Bld) 0.7 % Normal 0.2-2.0 [facility] Comment on above: Performed By: #### C BC ####[facility] R[address]wn[address] [place] [address] [place] Eosinophils 0.2 103/ul Normal 0.0-0.7 [facility] Comment on above: Performed By: #### C BC ####[facility] Mrcgaljipw[address] [place] [address] [place] Eosinophils/100 leukocytes 3.1 % Normal 0.9-7.0 [facility] Comment on above: Performed By: #### C BC ####[facility] Ayiefqsiz[address] [place] [address] [place] Erythrocyte distribution width Auto Ratio (RBC) 12.7 % Normal 11.0-15.0 [facility] Comment on above: Performed By: #### C BC ####[facility] F[address] [place] [address] [place] Erythrocytes (RBC) 5.07 106/ul Normal 4.70-6.10 [facility] Comment on above: Performed By: #### C BC ####[facility] U[address]xx[address] [place], [place] [address] Hematocrit (HCT) 44.7 % Normal 42.0-54.0 [facility] Comment on above: Performed By: #### C BC ####[facility] Mnvwxsuogj[address] [place], [place] [address] Hemoglobin mass conc (Bld) 15.5 g/dL Normal 14.0-18.0 [facility] Comment on above: Performed By: #### C BC ####[facility] Rztgdjoifm4042 [address] [place] IG # 0.01 10e3/ul Normal 0.00-0.03 [facility] Comment on above: Performed By: #### C BC ####[facility] Dkcdenmofd5633 [address] [place] IG % 0.1 % Normal 0.0-0.5 The [facility] Comment on above: Performed By: #### C BC ####[facility] Sw[address] [place] [address] [place] Lymphocytes 2.4 103/ul Normal 1.2-3.8 The [facility] Comment on above: Performed By: #### C BC ####[facility] I[address] [place] [address] [place] Lymphocytes/100 leukocytes 31.8 % Normal 20.5-60.0 The [facility] Comment on above: Performed By: #### C BC ####[facility] Erggdksfmi[address] [place] [address] [place] MANUAL DIFF REQ NO Normal [facility] Comment on above: Performed By: #### C BC ####[facility] I[address]vitu[address] [place] [address] [place] MCH 30.6 pg Normal 25.9-34.0 The [facility] Comment on above: Performed By: #### C BC ####[facility] [address] [place] [address] [place] MCHC mass conc (RBC) 34.7 g/dL Normal 29.9-35.2 The [facility] Comment on above: Performed By: #### C BC ####[facility] [address] [place] [address] [place] MCV 88.2 fL Normal 80.0-94.0 [facility] Comment on above: Performed By: #### C BC ####[facility] Jdtodklvsx[address] [place] [address] [place] Monocytes 0.5 103/ul Normal 0.3-0.8 [facility] Comment on above: Performed By: #### C BC ####[facility] Utkoysizbk8277 [place], [place] [address]Xdbvka [place] Monocytes/100 leukocytes 6.6 % Normal 1.7-12.0 [facility] Comment on above: Performed By: #### C BC ####[facility] Gokdlvgxzb4958 [place], [place] [address]Qoswtj [place] Neutrophils 4.3 103/ul Normal 1.4-6.5 The [facility] Comment on above: Performed By: #### C BC ####[facility] Xqnqwhjhjf6706 [place] [id number] Neutrophils/100 WBC Auto (Bld) 57.7 % Normal 43.0-75.0 [facility] Comment on above: Performed By: #### C BC ####[facility] Nftphv[address]ap[address] [place], [place] [address]Gershady Price Platelet mean volume (PMV) 10.3 fL Normal 9.5-13.5 [facility] Comment on above: Performed By: #### C BC ####[facility] Yxol[address]twtk[address] [place], [place] [address] Platelets 158 103/ul Normal 150-450 The [facility] Comment on above: Performed By: #### C BC ####[facility] Gufttioabx[address] [place], [place] [address] WBC (Leukocytes) 7.5 103/ul Normal 4.0-11.0 The [facility] Comment on above: Performed By: #### C BC ####[facility] Oztwiqqlvy4688 [place] [address] PROF CHEM 8 (BAS METB)on Anion gap 8.7 mmol/L Normal [facility] Comment on above: Performed By: #### B MP ####[facility] [address] [place], [place] [address] [place] BUN/Creatinine Ratio 27.1 mg/mg Normal [facility] Comment on above: Performed By: #### B MP ####[facility] Pccpymmpsh5662 [place], [place] [address] Calcium 10.6 mg/dL Critically high 8.4-10.2 [facility] Comment on above: Performed By: #### B MP ####[facility] Vfgbulygxk4127 [place], [place] [address]Sadxwa [place] Chloride 101 mmol/L Normal 98-107 The [facility] Comment on above: Performed By: #### B MP ####[facility] Preehkbkzh3997 [place] [id number] CO2 28.0 mmol/L Normal 22.0-30.0 [facility] Comment on above: Performed By: #### B MP ####[facility] Vrmlvnjvum0073 [place] [id number] Creatinine 0.80 mg/dL Normal 0.66-1.25 [facility] Comment on above: Performed By: #### B MP ####[facility] [address] [place], [place] [address] eGFR (non-black) mL/min/{1.73_m2} Normal >=60 Th [facility] Comment on above: Performed By: #### B MP ####[facility] Vdfltplliz[address] [place], [place] [address] Glucose mass conc 133 mg/dL Critically high 74-106 Th [facility] Comment on above: Performed By: #### B MP ####[facility] Bzonckoiym6756 [place] [id number] Potassium molar conc 4.2 mmol/L Normal 3.4-5.0 The [facility] Comment on above: Performed By: #### B MP ####[facility] Hfbrfjiyjp2216 [place] [phone] Sodium 134 mmol/L Critically low 137-145 [facility] Comment on above: Performed By: #### B MP ####[facility] Z[address]fvbxt[address] [place], [place] [address] Urea nitrogen 22.0 mg/dL Critically high 9.0-20.0 [facility] Comment on above: Performed By: #### B MP ####[facility] Ycvfqkfjke2612 [place], [place] [address]MouimoMaggi Price PROTIMEon 08-07-2017 INR Coag RelTime (Bld) SEE BELOW Normal [facility] Comment on above: Result Comment: SCOTT RED INR: 2.0 - 3.0 CONDITIONS NOT LISTED BELOW 2.5 - 3.5 FOR PROSTHETIC HEART VALVE REPLACEMENT 2.5 - 3.5 RECURRENT THROMBOSIS Performed By: #### P T, PTT ####[facility] Zgfligfeia7249 [place], [place] [address]XsxyqsMaggi Price INR Coag RelTime (PPP) 1.01 {INR} Normal [facility] Comment on above: Performed By: #### P T, PTT ####[facility] Ifxkkyqanl2205 [place], [place] [address]HfmecbMaggi Price Prothrombin time (PT) Coag time (PPP) 10.4 s Normal 9.0-11.6 [facility] Comment on above: Performed By: #### P T, PTT ####[facility] Zslsekbwzf1893 [place] [id number] Price PT NORMAL PLEASE NOTE: NORMAL RANGE CHANGE 11-26-2013 DUE TO REAGENT LOT CHANGE Normal [facility] Comment on above: Performed By: #### P T, PTT ####[facility] Jltepapvbd4144 [place], [place] [address]NtqpyjMaggi Price PTTon 08-07-2017 aPTT PLEASE NOTE: NORMAL RANGE CHANGE 02-02-2015 DUE TO REAGENT LOT CHANGE Normal [facility] Comment on above: Performed By: #### P T, PTT ####[facility] Hfntpsdsva7660 [place], [place] [address]GxwyulMaggi Price aPTT 30.1 s Normal 22.3-36.2 [facility] Comment on above: Performed By: #### P T, PTT ####[facility] Wiyluslwqd3543 [place], [place] [address]Vprjjd Dee GLUCOSE, FINGERSTICK-IN OFFI CEon 07-15-2017 Glucose mass conc 154 mg/dL High 80-116 [facility] Comment on above: Result Comment: Ty lester RN, APN, MD Performed By: #### C BCD, ESR, HB A1C ####[facility] WZRGCIVHRJ0891 [place], [place], Glucose mass conc 121 mg/dL High 80-116 [facility] Comment on above: Performed By: #### C BCD, ESR, HB A1C ####[facility] LMNTAWZTEI5968 [place], GLUCOSE, FINGERSTICK-IN OFFI 07-14-2017 Glucose mass conc 157 mg/dL High 80-116 [facility] Comment on above: Result Comment: Ty lester RN, APN, MD Performed By: #### C BCD, ESR, HB A1C ####[facility] ANGNJXSLJE4992 [place], Glucose mass conc 158 mg/dL High 80-116 [facility] Comment on above: Result Comment: Ty lester RN, APN, MD Performed By: #### C BCD, ESR, HB A1C ####[facility] FHVDQQYDMY5142 [place], Glucose mass conc 150 mg/dL High 80-116 The [facility] Comment on above: Performed By: #### C BCD, ESR, HB A1C ####[facility] TVNTHNWDMW7507 [place], Glucose mass conc 128 mg/dL High 80-116 The [facility] Comment on above: Performed By: #### C BCD, ESR, HB A1C ####[facility] XOLBDZQQYR6993 [place], GLUCOSE, FINGERSTICK-IN OFF07-13-2017 Glucose mass conc 172 mg/dL High 80-116 The [facility] Comment on above: Result Comment: Ty lester RN, APN, MD Performed By: #### C BCD, ESR, HB A1C ####[facility] [id number] [place], Glucose mass conc 154 mg/dL High 80-116 [facility] Comment on above: Result Comment: Ty lester RN, APN, MD Performed By: #### C BCJanelle, ESR, HB A1C ####[facility] EZPSWECOXA9838 [place], Glucose mass conc 195 mg/dL High 80-116 The [facility] Comment on above: Result Comment: Ty lester RN, APN, MD Performed By: #### C BCJanelle, ESR, HB A1C ####[facility] KZIUSHTAPG2962 [place], Glucose mass conc 118 mg/dL High 80-116 The [facility] Comment on above: Result Comment: Ty lester RN, APN, MD Performed By: #### C SHEFALI, ESR, HB A1C ####[facility] QBQVPQLEKP4410 [place], Glucose mass conc 119 mg/dL High 80-116 The [facility] Comment on above: Performed By: #### C SHEAFLI, ESR, HB A1C ####[facility] SVOONORMZV0154 [place], GLUCOSE, FINGERSTICK-IN OFFI CEon 07-12-2017 Glucose mass conc 134 mg/dL High 80-116 The [facility] Comment on above: Result Comment: Foll ow Protocol Performed By: #### C SHEFALI, ESR, HB A1C ####[facility] [id number] [place], Glucose mass conc 134 mg/dL High 80-116 The [facility] Comment on above: Result Comment: Foll ow Protocol Performed By: #### C BCD, ESR, HB A1C ####[facility] QBQGKQZMFB9279 [place], Glucose mass conc 211 mg/dL High 80-116 The [facility] Comment on above: Result Comment: Ty lester RN, APN, MD Performed By: #### C BCD, ESR, HB A1C ####[facility] UXEBYSLOWB3753 [place], PROTHROMBIN TIME AND INRon 0 07-12-2017 INR Coag RelTime (PPP) 1.01 {INR} Normal 0.90-1.10 Th e [facility] Comment on above: Performed By: #### C BCD, ESR, HB A1C ####[facility] [id number] [place], Prothrombin time (PT) Coag time (PPP) 11.4 s Normal 10.0-12.6 The [facility] Comment on above: Performed By: #### C BCD, ESR, HB A1C ####[facility] [id number] [place], TYPE AND SCREENon 07-12-2017 ABO RH TYPE Positive Normal [facility] Comment on above: Performed By: #### C BCD, ESR, HB A1C ####S PATHOLOG[facility] ZZVCEQSASP7482 [place], ABSC INT Negative Normal The [facility] Comment on above: Performed By: #### C BCD, ESR, HB A1C ####[facility] [id number] [place], GLUCOSE, FINGERSTICK-IN OFFI CEon 07-11-2017 Glucose mass conc 149 mg/dL High 80-116 The [facility] Comment on above: Performed By: #### C BCD, ESR, HB A1C ####[facility] PATHOLOG[facility] ULRAWMJEED1297 [place], Glucose mass conc 116 mg/dL Normal 80-116 The [facility] Comment on above: Performed By: #### C BCD, ESR, HB A1C ####[facility] TDWQLKJLOR1907 [place], Glucose mass conc 144 mg/dL High 80-116 The [facility] Comment on above: Performed By: #### C BCD, ESR, HB A1C ####[facility] JJCUWEJCZT4207 [place], Glucose mass conc 119 mg/dL High 80-116 The [facility] Comment on above: Performed By: #### C BCD, ESR, HB A1C ####[facility] WSFYXSHJYB1612 [place], BASIC METABOLIC PANELon Anion gap 11 mmol/L Normal 5-13 The [facility] Comment on above: Performed By: #### C H8, HEPATIC ####[facility] [id number] [place], Calcium 9.4 mg/dL Normal 8.4-10.4 The [facility] Comment on above: Performed By: #### C H8, HEPATIC ####[facility] OVDUKVQJZI0839 [place], Chloride 103 mmol/L Normal 97-111 The [facility] Comment on above: Performed By: #### C H8, HEPATIC ####[facility] [id number] [place], CO2 27 mmol/L Normal 21-30 The [facility] Comment on above: Performed By: #### C H8, HEPATIC ####[facility] GSYATSYUXD2550 [place], Creatinine 0.93 mg/dL Normal 0.80-1.30 The [facility] Comment on above: Performed By: #### C H8, HEPATIC ####S PATHOLOGY WHIFMZEPIX0396 [place], eGFR (MDRD) 88 mL/min/1.73sqm Normal >=60 The [facility] Comment on above: Performed By: #### C H8, HEPATIC ####[facility] [id number] [place], Glucose mass conc 160 mg/dL High 80-116 The [facility] Comment on above: Performed By: #### C H8, HEPATIC ####[facility] [id number] [place], Potassium molar conc 4.1 mmol/L Normal 3.3-5.3 The [facility] Comment on above: Performed By: #### C H8, HEPATIC ####[facility] [id number] [place], Sodium 137 mmol/L Normal 135-148 The [facility] Comment on above: Performed By: #### C H8, HEPATIC ####[facility] [id number] [place], Urea nitrogen 19 mg/dL Normal 8-22 The [facility] Comment on above: Performed By: #### C H8, HEPATIC ####[facility] PATHOLOGY [id number] [place], C-REACTIVE PROTEINon 018 C reactive protein (CRP) 1.7 mg/dL High <0.8 The [facility] Comment on above: Performed By: #### H IV1/2 AG/AB, CRP ####[facility] PATHOLOGY [id number] [place], COMPLETE BLOOD COUNT W/DIFFo n 07-10-2017 Basophils Auto #/vol (Bld) 0.04 10*3/uL Normal 0.00-0.20 The [facility] Comment on above: Performed By: #### C BCD, ESR, HB A1C ####[facility] PATHOLOGY [id number] [place] [address], Basophils/100 WBC Auto (Bld) 0.5 % Normal <=1.9 The [facility] Comment on above: Performed By: #### C BCD, ESR, HB A1C ####[facility] PATHOLOGY [id number] [place] [address], Eosinophils 0.15 10*3/uL Normal 0.00-0.70 [facility] Comment on above: Performed By: #### C BCD, ESR, HB A1C ####[facility] PATHOLOGY [id number] [place] [address], Eosinophils/100 leukocytes 1.8 % Normal 0.1-4.0 The [facility] Comment on above: Performed By: #### C BCD, ESR, HB A1C ####[facility] PATHOLOGY [id number] [place], [place], Erythrocyte distribution width Auto Ratio (RBC) 13.0 % Normal 11.5-14.5 The [facility] Comment on above: Performed By: #### C BCD, ESR, HB A1C ####[facility] PATHOLOGY [id number] [place] [address], Erythrocytes (RBC) 4.63 10*6/uL Normal 4.50-5.90 The [facility] Comment on above: Performed By: #### C BCD, ESR, HB A1C ####S PATHOLOGY [id number] [place], [place], Hematocrit (HCT) 41.8 % Normal 41.0-53.0 [facility] Comment on above: Performed By: #### C BCD, ESR, HB A1C ####S PATHOLOGY [id number] [place], [place], Hemoglobin mass conc (Bld) 14.4 g/dL Normal 13.9-16.3 [facility] Comment on above: Performed By: #### C BCD, ESR, HB A1C ####[facility] PATHOLOGY [id number] [place], Lymphocytes 1.72 10*3/uL Normal 1.00-4.80 [facility] Comment on above: Performed By: #### C BCD, ESR, HB A1C ####[facility] PATHOLOGY [id number] [place], Lymphocytes/100 leukocytes 20.5 % Low 24.0-44.0 The [facility] Comment on above: Performed By: #### C BCD, ESR, HB A1C ####[facility] PATHOLOGY [id number] [place], MCH 31.1 pg Normal 26.0-34.0 The [facility] Comment on above: Performed By: #### C BCD, ESR, HB A1C ####[facility] PATHOLOGY [id number] [place], MCHC mass conc (RBC) 34.4 g/dL Normal 32.0-35.9 The [facility] Comment on above: Performed By: #### C BCD, ESR, HB A1C ####[facility] PATHOLOGY [id number] [place], MCV 90 fL Normal 80-100 The [facility] Comment on above: Performed By: #### C BCD, ESR, HB A1C ####S PATHOLOGY [id number] [place], Monocytes 0.85 10*3/uL Normal 0.20-1.00 [facility] Comment on above: Performed By: #### C BCD, ESR, HB A1C ####[facility] PATHOLOGY [id number] [place], Monocytes/100 leukocytes 10.1 % Normal 2.0-11.0 [facility] Comment on above: Performed By: #### C BCD, ESR, HB A1C ####[facility] PATHOLOGY [id number] [place], Neutrophils 5.63 10*3/uL Normal 1.50-8.00 [facility] Comment on above: Performed By: #### C BCD, ESR, HB A1C ####[facility] PATHOLOGY [id number] [place], Neutrophils/100 leukocytes 67.1 % Normal 31.0-76.0 [facility] Comment on above: Performed By: #### C BCD, ESR, HB A1C ####[facility] PATHOLOGY [id number] [place], Platelet mean volume (PMV) 10.6 fL Normal 8.5-11.5 The [facility] Comment on above: Performed By: #### C BCD, ESR, HB A1C ####[facility] PATHOLOGY [id number] [place], Platelets 169 10*3/uL Normal 150-400 The [facility] Comment on above: Performed By: #### C BCD, ESR, HB A1C ####[facility] PATHOLOGY [id number] [place], WBC (Leukocytes) 8.4 10*3/uL Normal 4.5-11.5 The [facility] Comment on above: Performed By: #### C BCD, ESR, HB A1C ####[facility] PATHOLOGY [id number] [place], ERYTHROCYTE SEDIMENTATION RA Brando 07-10-2017 Erythrocyte sedimentation rate 42 mm/h High <=20 The [facility] Comment on above: Performed By: #### C BCD, ESR, HB A1C ####S PATHOLOGY [id number] [place], GLUCOSE, FINGERSTICK-IN OFFI CEon 07-10-2017 Glucose mass conc 147 mg/dL High 80-116 The [facility] Comment on above: Performed By: #### C BCD, ESR, HB A1C ####[facility] [id number] [place], Glucose mass conc 148 mg/dL High 80-116 The [facility] Comment on above: Result Comment: Ty lester RN, APN, MD Performed By: #### C BCD, ESR, HB A1C ####[facility] [id number] [place], Glucose mass conc 176 mg/dL High 80-116 [facility] Comment on above: Result Comment: Ty lester RN, APN, MD Performed By: #### [id number] ####NURSING GLUCOSE [id number] [place] [address], HEMOGLOBIN A1Con 07-10-2017 Glucose mass conc 128 mg/dL Normal The [facility] Comment on above: Order Comment: HbA1c of 5.7-6.4% have increased risk for diabetes and CV(Source :ADA 2014 Standard of Medical Care in Diabetes) Performed By: #### C BCD, ESR, HB A1C ####[facility] [id number] [place], Hemoglobin A1c/Hemoglobin.total mass fraction (Bld) 6.1 % High 4.0-5.6 [facility] Comment on above: Order Comment: HbA1c of 5.7-6.4% have increased risk for diabetes and CV(Source :ADA 2014 Standard of Medical Care in Diabetes) Performed By: #### C BCD, ESR, HB A1C ####[facility] [id number] [place], HEPATIC FUNCTION PANELon Alanine aminotransferase (ALT) 36 U/L Normal 7-40 [facility] Comment on above: Performed By: #### C BCD, ESR, HB A1C ####[facility] [id number] [place], Albumin 3.3 g/dL Low 3.4-5.1 [facility] Comment on above: Performed By: #### C BCD, ESR, HB A1C ####[facility] PATH[facility] [id number] [place] [address], ALK 63 IU/L Normal 40-200 [facility] Comment on above: Performed By: #### C BCD, ESR, HB A1C ####[facility] PATHOLOGY [id number] [place] [address], Aspartate aminotransferase (AST) 31 U/L Normal 7-40 [facility] Comment on above: Performed By: #### C BCD, ESR, HB A1C ####[facility] PATHOLOGY [id number] [place] [address], Bilirubin (total) 0.20 mg/dL Normal 0.10-0.30 [facility] Comment on above: Performed By: #### C BCD, ESR, HB A1C ####[facility] PATHOLOGY [id number] [place] [address], Bilirubin Ql (U) 0.5 mg/dL Normal 0.1-1.5 [facility] Comment on above: Performed By: #### C BCD, ESR, HB A1C ####[facility] PATHOLOGY [id number] [place] [address], Protein 6.1 g/dL Normal 5.7-8.1 [facility] Comment on above: Performed By: #### C BCD, ESR, HB A1C ####[facility] PATHOLOGY [id number] [place] [address], HEPATITIS C ANTIBODYon 07-10 HCV Reactive Abnormal Nonreactive [facility] Comment on above: Performed By: #### H CV, HEP C QNT ####S PATHOLOGY [id number] [place] [address], HEPATITIS C QUANT BY PCRon 0 07-10-2017 HEP C QNT [id number] IU/mL Normal Not Detected The [facility] Comment on above: Order Comment: This test is performed by a quantitative polymerase chain reaction (PCR) method (Ampliprep/DAVIS TaqMan test, v2.0, [employer] [place], [place]) that is intended to be used as an aid in the diagnosis of HCV infection (genotypes 1 to 6) and also as an aid in the management of HCV infected patients undergoing anti-viral therapy in conjunction with clinical and other laboratory markers of infection. Performed By: #### H CV, HEP C QNT ####S PATHOLOGY [id number] [place], HIV 1/HIV 2 COMBO AG/ABon HIV 1/2 AG/AB Nonreactive Normal Nonreactive [facility] Comment on above: Result Comment: HIV Information: ?[place] Rev. code 3701.243(E):This information has been disclosed to you from confidential records protected from disclosure by state law. ?You shall make no further disclosure of this information without the specific, written, and informed release of the individual to whom it pertains, or as otherwise permitted by state law. ?A general authorization for the release of medical or other information is not sufficient for the purpose of the release of HIV test results or diagnoses. Performed By: #### H IV1/2 AG/AB, CRP ####[facility] [id number] [place], XR TOES RIGHTon 07-10-2017 XR TOES RIGHT EXAMINATIONXR TOES RIGHT/RT1 CLINICAL HISTORYreports of osteo R great toe COMPARISONNone FINDINGSThere is soft tissue swelling and lucency overlying the tip of the great toe which corresponds with known ulceration. There are erosive changes and periostitis of the distal phalangeal tuft, consistent osteomyelitis. There is flexion deformity of the 1st interphalangeal joint. There is irregularity of the distal 1st metatarsal bone medial aspect, likely chronic degenerative or remote posttraumatic in etiology. Hammertoe deformities of the remaining visualized digits are noted. IMPRESSIONRadiographic findings consistent with osteomyelitis of the 1st distal phalanx. MADISONONEI have reviewed the study and interpretationwith the resident and agree with the findings. Normal [facility] Vital Signs Date Time Vital Sign Value Performing Clinician Facility 04-29-2024 09:23-0500 Body temperature 98.4 [degF] Nasim Guillaume MD Work Phone: [facility] 04-29-2024 09:23-0500 Body weight 91 kg Nasim Guillaume MD Work Phone: [facility] 04-29-2024 09:23-0500 Diastolic blood pressure 80 mm[Hg] Nasim Guillaume MD Work Phone: [facility] 04-29-2024 09:23-0500 Heart rate 83 /min Nasim Guillaume MD Work Phone: [facility] 04-29-2024 09:23-0500 Systolic blood pressure 152 mm[Hg] Nasim Guillaume MD Work Phone: [facility] 04-26-2024 13:54-0500 Diastolic blood pressure 60 mm[Hg] Danielle Tito [facility] 04-26-2024 13:54-0500 Heart rate 105 /min Danielle Tito [facility] 04-26-2024 13:54-0500 Mean blood pressure 83 mm[Hg] Danielle Tito [facility] 04-26-2024 13:54-0500 Respiratory rate 16 /min Danielle Tito [facility] 04-26-2024 13:54-0500 SaO2% (BldA) [Mass fraction] 96 % Danielle Tito [facility] 04-26-2024 13:54-0500 Systolic blood pressure 129 mm[Hg] Danielle Tito [facility] 04-26-2024 13:00-0500 Diastolic blood pressure 95 mm[Hg] Danielle Tito [facility] 04-26-2024 13:00-0500 Heart rate 104 /min Danielle Tito [facility] 04-26-2024 13:00-0500 Mean blood pressure 113 mm[Hg] Danielle Tito [facility] 04-26-2024 13:00-0500 Systolic blood pressure 148 mm[Hg] Danielle Tito [facility] 04-26-2024 12:55-0500 Diastolic blood pressure 65 mm[Hg] Danielle Vance [facility] 04-26-2024 12:55-0500 Heart rate 93 /min Danielle Vance [facility] 04-26-2024 12:55-0500 Mean blood pressure 88 mm[Hg] Danielle Vance [facility] 04-26-2024 12:55-0500 Respiratory rate 16 /min Danielle Tito [facility] 04-26-2024 12:55-0500 SaO2% (BldA) [Mass fraction] 95 % Danielle Vance [facility] 04-26-2024 12:55-0500 Systolic blood pressure 135 mm[Hg] Danielle Vance [facility] 04-26-2024 12:16-0500 Body temperature 98.42 [degF] Danielle Vance [facility] 04-26-2024 12:16-0500 Heart rate 121 /min Danielle Vance [facility] 04-26-2024 12:16-0500 Respiratory rate 20 /min Danielle Vance [facility] 04-24-2024 16:26-0500 Diastolic blood pressure 93 mm[Hg] Mark Alves [facility] 04-24-2024 16:26-0500 Heart rate 80 /min Mark Alves [facility] 04-24-2024 16:26-0500 Mean blood pressure 122 mm[Hg] Mark Alves [facility] 04-24-2024 16:26-0500 Respiratory rate 20 /min Mark Alves [facility] 04-24-2024 16:26-0500 SaO2% (BldA) [Mass fraction] 98 % Mark Mcadamse [facility] 04-24-2024 16:26-0500 Systolic blood pressure 180 mm[Hg] Mark Joselyn [facility] 04-24-2024 15:30-0500 Diastolic blood pressure 78 mm[Hg] Mark Joselyn [facility] 04-24-2024 15:30-0500 Heart rate 83 /min Mark Joselyn [facility] 04-24-2024 15:30-0500 Mean blood pressure 102 mm[Hg] Mark Joselyn [facility] 04-24-2024 15:30-0500 Respiratory rate 29 /min Mark Joselyn [facility] 04-24-2024 15:30-0500 SaO2% (BldA) [Mass fraction] 99 % Mark Joselyn [facility] 04-24-2024 15:30-0500 Systolic blood pressure 150 mm[Hg] Mark Joselyn [facility] 04-24-2024 13:51-0500 Body temperature 97.7 [degF] Mark Joselyn [facility] 04-24-2024 13:51-0500 Diastolic blood pressure 86 mm[Hg] Mark Joselyn [facility] 04-24-2024 13:51-0500 Heart rate 102 /min Mark Joselyn [facility] 04-24-2024 13:51-0500 Respiratory rate 18 /min Mark Joselyn [facility] 04-24-2024 13:51-0500 SaO2% (BldA) [Mass fraction] 95 % Mark Joselyn [facility] 04-24-2024 13:51-0500 Systolic blood pressure 154 mm[Hg] Mark Alves [facility] 02-28-2024 09:54-0500 Body height 187.96 cm Nasim Guillaume MD Work Phone: [facility] 02-28-2024 09:54-0500 Body mass index (BMI) [Ratio] 24.3 kg/m2 Nasim Guillaume MD Work Phone: [facility] 02-28-2024 09:54-0500 Body temperature 97.3 [degF] Nasim Guillaume MD Work Phone: [facility] 02-28-2024 09:54-0500 Body weight 86.18 kg Naism Guillaume MD Work Phone: [facility] 02-28-2024 09:54-0500 Diastolic blood pressure 82 mm[Hg] Nasim Guillaume MD Work Phone: [facility] 02-28-2024 09:54-0500 Heart rate 74 /min Nasim Guillaume MD Work Phone: [facility] 02-28-2024 09:54-0500 Respiratory rate 16 /min Nasim Guillaume MD Work Phone: [facility] 02-28-2024 09:54-0500 SaO2% (BldA) [Mass fraction] 98 % Nasim Guillaume MD Work Phone: [facility] 02-28-2024 09:54-0500 Systolic blood pressure 141 mm[Hg] Nasim Guillaume MD Work Phone: [facility] 02-14-2024 08:28-0500 Body height 182.9 cm Tiki Dockery DO Work Phone: [facility] 02-14-2024 08:28-0500 Body mass index (BMI) [Ratio] 25.36 kg/m2 Tiki Petznick DO Work Phone: [facility] 02-14-2024 08:28-0500 Body temperature 97.59 [degF] Tiki Petznick DO Work Phone: [facility] 02-14-2024 08:28-0500 Body weight 84.82 kg Tiki Petznick DO Work Phone: [facility] 02-14-2024 08:28-0500 Diastolic blood pressure 72 mm[Hg] Tiki Petznick DO Work Phone: [facility] 02-14-2024 08:28-0500 Heart rate 111 /min Tiki Petznick DO Work Phone: [facility] 02-14-2024 08:28-0500 SaO2% (BldA) [Mass fraction] 98 % Tiki Petznick DO Work Phone: [facility] 02-14-2024 08:28-0500 Systolic blood pressure 130 mm[Hg] Tiki Petznick DO Work Phone: [facility] 02-13-2024 13:06-0500 Body height 187.96 cm Nasim Guillaume MD Work Phone: [facility] 02-13-2024 13:06-0500 Body mass index (BMI) [Ratio] 24.8 kg/m2 Nasim Guillaume MD Work Phone: [facility] 02-13-2024 13:06-0500 Body weight 87.74 kg Nasim Guillaume MD Work Phone: [facility] 02-13-2024 13:06-0500 Diastolic blood pressure 85 mm[Hg] Nasim Guillaume MD Work Phone: [facility] 02-13-2024 13:06-0500 Heart rate 104 /min Nasim Guillaume MD Work Phone: [facility] 02-13-2024 13:06-0500 Systolic blood pressure 142 mm[Hg] Nasim Guillaume MD Work Phone: [facility] 02-10-2024 15:55-0500 Respiratory rate 24 /min Mark Alves [facility] 02-10-2024 15:55-0500 SaO2% (BldA) [Mass fraction] 100 % Mark Alves [facility] 02-10-2024 15:15-0500 Body temperature 98.06 [degF] Mark Alves [facility] 02-10-2024 15:15-0500 Diastolic blood pressure 82 mm[Hg] Mark Alves [facility] 02-10-2024 15:15-0500 Heart rate 93 /min Mark Alves [facility] 02-10-2024 15:15-0500 Respiratory rate 22 /min Mark Alves [facility] 02-10-2024 15:15-0500 SaO2% (BldA) [Mass fraction] 99 % Mark Alves [facility] 02-10-2024 15:15-0500 Systolic blood pressure 141 mm[Hg] Mark Alves [facility] 02-03-2024 13:57-0500 Body height 187.96 cm Nasim Guillaume MD Work Phone: [facility] 02-03-2024 13:57-0500 Body mass index (BMI) [Ratio] 25 kg/m2 Nasim Guillaume MD Work Phone: [facility] 02-03-2024 13:57-0500 Body temperature 97.1 [degF] Nasim Guillaume MD Work Phone: [facility] 02-03-2024 13:57-0500 Body weight 88.56 kg Nasim Guillaume MD Work Phone: [facility] 02-03-2024 13:57-0500 Diastolic blood pressure 79 mm[Hg] Nasim Guillaume MD Work Phone: [facility] 02-03-2024 13:57-0500 Heart rate 83 /min Nasim Guillaume MD Work Phone: [facility] 02-03-2024 13:57-0500 Respiratory rate 16 /min Nasim Guillaume MD Work Phone: [facility] 02-03-2024 13:57-0500 SaO2% (BldA) [Mass fraction] 93 % Nasim Guillaume MD Work Phone: [facility] 02-03-2024 13:57-0500 Systolic blood pressure 141 mm[Hg] Nasim Guillaume MD Work Phone: [facility] 01-06-2024 10:33-0400 Blood Pressure Location Donna Galea [facility] 01-06-2024 10:33-0400 Diastolic blood pressure 64 mm[Hg] Donna Galea [facility] 01-06-2024 10:33-0400 Heart rate 64 /min Donna Galea [facility] 01-06-2024 10:33-0400 Systolic blood pressure 114 mm[Hg] Donna Galea [facility] 12-31-2023 09:24-0400 Body temperature 97.9 [degF] DO Tiki Petznick Work Phone: [facility] 12-31-2023 09:24-0400 Body weight 94 kg DO Tiki Petznick Work Phone: [facility] 12-31-2023 09:24-0400 Diastolic blood pressure 74 mm[Hg] DO Tiki Petznick Work Phone: [facility] 12-31-2023 09:24-0400 Heart rate 70 /min DO Tiki Petznick Work Phone: [facility] 12-31-2023 09:24-0400 Systolic blood pressure 141 mm[Hg] DO Tiki Petznick Work Phone: [facility] 12-10-2023 10:22-0400 Body height 182.9 cm Tiki Petznick DO Work Phone: [facility] 12-10-2023 10:22-0400 Body mass index (BMI) [Ratio] 28.32 kg/m2 Tiki Petznick DO Work Phone: [facility] 12-10-2023 10:22-0400 Body temperature 97.5 [degF] Tiki Petznick DO Work Phone: [facility] 12-10-2023 10:22-0400 Body weight 94.71 kg Tiki Petznick DO Work Phone: [facility] 12-10-2023 10:22-0400 Diastolic blood pressure 62 mm[Hg] Tiki Petznick DO Work Phone: [facility] 12-10-2023 10:22-0400 Heart rate 77 /min Tiki Petznick DO Work Phone: [facility] 12-10-2023 10:22-0400 SaO2% (BldA) [Mass fraction] 97 % Tiki Petznick DO Work Phone: [facility] 12-10-2023 10:22-0400 Systolic blood pressure 126 mm[Hg] Tiki Petznick DO Work Phone: [facility] 11-26-2023 10:05-0400 Body height 182.9 cm Tiki Petznick DO Work Phone: [facility] 11-26-2023 10:05-0400 Body mass index (BMI) [Ratio] 28.75 kg/m2 Tiki Petznick DO Work Phone: [facility] 11-26-2023 10:05-0400 Body temperature 97 [degF] Tiki Petznick DO Work Phone: [facility] 11-26-2023 10:05-0400 Body weight 96.16 kg Tiki Petznick DO Work Phone: [facility] 11-26-2023 10:05-0400 Diastolic blood pressure 68 mm[Hg] Tiki Petznick DO Work Phone: [facility] 11-26-2023 10:05-0400 Heart rate 72 /min Tiki Petznick DO Work Phone: [facility] 11-26-2023 10:05-0400 SaO2% (BldA) [Mass fraction] 97 % Tiki Petznick DO Work Phone: [facility] 11-26-2023 10:05-0400 Systolic blood pressure 120 mm[Hg] Tiki Petznick DO Work Phone: [facility] 11-21-2023 13:01-0400 Body height 187.96 cm DO Tiki Petznick Work Phone: [facility] 11-21-2023 13:01-0400 Body temperature 98.4 [degF] DO Tiki Petznick Work Phone: [facility] 11-21-2023 13:01-0400 Body weight 94.15 kg DO Tiki Petznick Work Phone: [facility] 11-21-2023 13:01-0400 Diastolic blood pressure 86 mm[Hg] DO Tiki Petznick Work Phone: [phone] [place] [address] 11-21-2023 13:01-0400 Heart rate 75 /min DO Tiki Petznick Work Phone: [facility] 11-21-2023 13:01-0400 Respiratory rate 20 /min DO Tiki Petznick Work Phone: [facility] 11-21-2023 13:01-0400 SaO2% (BldA) [Mass fraction] 97 % DO Tiki Petznick Work Phone: [phone] [address] 11-21-2023 13:01-0400 Systolic blood pressure 160 mm[Hg] DO Tiki Petznick Work Phone: [phone] [place] [address] 11-21-2023 11:26-0400 Body height 187.96 cm DO Tiki Petznick Work Phone: [phone] [place] [address] 11-21-2023 11:26-0400 Body mass index (BMI) [Ratio] 27.2 kg/m2 DO Tiki Petznick Work Phone: [phone] [place] [address] 11-21-2023 11:26-0400 Body temperature 97.9 [degF] DO Tiki Petznick Work Phone: 0(525)[phone] [place] [address] 11-21-2023 11:26-0400 Body weight 96.16 kg DO Tiki Petznick Work Phone: 0(480)[phone] [place] [address] 11-21-2023 11:26-0400 Diastolic blood pressure 73 mm[Hg] DO Tiki Petznick Work Phone: [phone] [place] [address] 11-21-2023 11:26-0400 Heart rate 83 /min DO Tkii Petznick Work Phone: 7(416)[phone] [place] [address] 11-21-2023 11:26-0400 Respiratory rate 16 /min DO Tiki Petznick Work Phone: 4(676)[phone] [place] [address] 11-21-2023 11:26-0400 SaO2% (BldA) [Mass fraction] 99 % DO Tiki Petznick Work Phone: 3(567)[phone] [place] [address] 11-21-2023 11:26-0400 Systolic blood pressure 137 mm[Hg] DO Tiki Petznick Work Phone: 5(078)[phone] [place] [address] 10-20-2023 10:35-0400 Heart rate 70 /min Kathi CARIAS [facility] 10-20-2023 10:35-0400 SaO2% (BldA) [Mass fraction] 97 % [facility] 10-20-2023 10:34-0400 Diastolic blood pressure 67 mm[Hg] [facility] 10-20-2023 10:34-0400 Mean blood pressure 88 mm[Hg] [facility] 10-20-2023 10:34-0400 Systolic blood pressure 130 mm[Hg] [facility] 10-20-2023 10:00-0400 Heart rate 80 /min [facility] 10-20-2023 10:00-0400 SaO2% (BldA) [Mass fraction] 96 % [facility] 10-20-2023 09:59-0400 Diastolic blood pressure 55 mm[Hg] [facility] 10-20-2023 09:59-0400 Mean blood pressure 70 mm[Hg] [facility] 10-20-2023 09:59-0400 Systolic blood pressure 99 mm[Hg] [facility] 10-19-2023 10:57-0400 Blood Pressure Location [facility] 10-19-2023 10:57-0400 Body temperature 97.7 [degF] [facility] 10-19-2023 10:57-0400 Diastolic blood pressure 53 mm[Hg] [facility] 10-19-2023 10:57-0400 Heart rate 70 /min [facility] 10-19-2023 10:57-0400 Mean blood pressure 66 mm[Hg] [facility] 10-19-2023 10:57-0400 Respiratory rate 18 /min [facility] 10-19-2023 10:57-0400 SaO2% (BldA) [Mass fraction] 98 % [facility] 10-19-2023 10:57-0400 Systolic blood pressure 93 mm[Hg] Kathijorge CARIAS [facility] 10-19-2023 10:00-0400 Body temperature 97.88 [degF] Kathi Tanner [facility] 10-19-2023 10:00-0400 Heart rate 68 /min [facility] 10-19-2023 10:00-0400 Mean blood pressure 67 mm[Hg] Kathijudy CARIAS [facility] 10-19-2023 10:00-0400 Respiratory rate 16 /min Kathijorge CARIAS [facility] 10-18-2023 10:08-0400 Heart rate 86 /min Kathijudy CARIAS [facility] 10-18-2023 10:08-0400 Mean blood pressure 71 mm[Hg] Kathijudy CARIAS [facility] 10-18-2023 10:07-0400 Respiratory rate 18 /min Kathijorge CARIAS [facility] 10-17-2023 10:33-0400 Blood Pressure Location Kathijudy CARIAS [facility] 10-17-2023 10:33-0400 Body temperature 98.42 [degF] Kathijorge CARIAS [facility] 10-15-2023 08:25-0400 Body temperature 98.2 [degF] DO Tiki Petznick Work Phone: [facility] 10-15-2023 08:25-0400 Body weight 95 kg DO Tiki Petznick Work Phone: [facility] 10-15-2023 08:25-0400 Diastolic blood pressure 61 mm[Hg] DO Tiki Petznick Work Phone: [facility] 10-15-2023 08:25-0400 Heart rate 85 /min DO Tiki Petznick Work Phone: [facility] 10-15-2023 08:25-0400 Systolic blood pressure 135 mm[Hg] DO Tiki Petznick Work Phone: [phone] [place] [address] 10-13-2023 09:59-0400 Body temperature 97.52 [degF] Kathijorge CARIAS [facility] 10-12-2023 11:10-0400 Heart rate 68 /min Kathijudy CARIAS [facility] 10-12-2023 11:10-0400 Mean blood pressure 93 mm[Hg] [facility] 10-10-2023 12:35-0400 Heart rate 99 /min Kathijudy CARIAS [facility] 10-10-2023 12:35-0400 SaO2% (BldA) [Mass fraction] 94 % [facility] 10-10-2023 12:35-0400 Respiratory rate 18 /min Kathijudy CARIAS [facility] 10-10-2023 12:35-0400 Diastolic blood pressure 63 mm[Hg] [facility]-10[facility] 12:35-0400 Mean blood pressure 77 mm[Hg] [facility] 10-10-2023 12:35-0400 Systolic blood pressure 104 mm[Hg] [facility] 10-09-2023 12:15-0400 Hourly Rounding Ronobir LANNY [facility] 10-09-2023 12:15-0400 Promise to Return Ronobir LANNY [facility] 10-09-2023 11:28-0400 Heart rate 92 /min Ronobir LANNY [facility] 10-09-2023 11:28-0400 Respiratory rate 18 /min Ronobir LANNY [facility] 10-09-2023 11:28-0400 SaO2% (BldA) [Mass fraction] 96 % Ronobir LANNY [facility] 10-09-2023 11:20-0400 Heart rate 94 /min Ronobir LANNY [facility] 10-09-2023 11:20-0400 SaO2% (BldA) [Mass fraction] 95 % Ronobir LANNY [facility] 10-09-2023 11:20-0400 Diastolic blood pressure 92 mm[Hg] Ronobir LANNY [facility] 10-09-2023 11:20-0400 Mean blood pressure 116 mm[Hg] Ronobir LANNY [facility] 10-09-2023 11:20-0400 Systolic blood pressure 164 mm[Hg] Ronobir LANNY [facility] 10-09-2023 11:19-0400 Body temperature 98.24 [degF] Ronobir LANNY [facility] 10-09-2023 11:17-0400 Heart rate 99 /min Ronobir LANNY [facility] 10-09-2023 11:17-0400 SaO2% (BldA) [Mass fraction] 95 % Ronobir LANNY [facility] 10-09-2023 11:17-0400 Diastolic blood pressure 91 mm[Hg] Ronobir LANNY [facility] 10-09-2023 11:17-0400 Mean blood pressure 116 mm[Hg] Ronobir LANNY [facility] 10-09-2023 11:17-0400 Systolic blood pressure 165 mm[Hg] Ronobir LANNY [facility] 10-09-2023 11:17-0400 Body temperature 98.06 [degF] Ronobir LANNY [facility] 10-09-2023 11:17-0400 Respiratory rate 18 /min Ronobir LANNY [facility] 10-09-2023 11:00-0400 Hourly Rounding Ronobir LANNY [facility] 10-09-2023 11:00-0400 Promise to Return Ronobir LANNY [facility] 10-09-2023 10:00-0400 Hourly Rounding Ronobir LANNY [facility] 10-09-2023 10:00-0400 Promise to Return Ronobir LANNY [facility] 10-09-2023 07:36-0400 Respiratory rate 16 /min Ronobir LANNY [facility] 10-09-2023 04:15-0400 Body temperature 97.7 [degF] Ronobir LANNY [facility] 10-09-2023 04:15-0400 Mean blood pressure 106 mm[Hg] Ronobir LANNY [facility] 10-08-2023 19:00-0400 gluc 300 mg/dL Ronobir LANNY [facility] 10-08-2023 01:00-0400 Body temperature 97.7 [degF] Ronobir LANNY [facility] 10-07-2023 20:00-0400 gluc 309 mg/dL Ronobir LANNY [facility] 10-07-2023 14:25-0400 Blood Pressure Location Ronobir LANNY [facility] 10-07-2023 14:25-0400 Body temperature 98.24 [degF] Ronobir LANNY [facility] 10-07-2023 12:47-0400 gluc 389 mg/dL Ronobir LANNY [facility] 10-06-2023 20:43-0400 Blood Pressure Location Ronobir LANNY [facility] 10-06-2023 10:05-0400 Heart rate 95 /min Ronobir LANNY [facility] 10-06-2023 03:00-0400 Mean blood pressure 97 mm[Hg] Ronobir LANNY [facility] 10-06-2023 00:40-0400 Mean blood pressure 95 mm[Hg] Ronobir LANNY [facility] 10-05-2023 08:51-0400 Heart rate 93 /min Ronobir LANNY [facility] 10-05-2023 05:05-0400 Heart rate 98 /min Ronobir LANNY [facility] 10-05-2023 03:52-0400 Respiratory rate 15 /min Ronobir LANNY [facility] 10-05-2023 02:23-0400 Respiratory rate 25 /min Ronobir LANNY [facility] 10-05-2023 02:20-0400 Respiratory rate 25 /min Ronobir LANNY [facility] 10-05-2023 01:42-0400 SaO2% (BldA) [Mass fraction] 66.0 % Ronobir LANNY [facility] 10-05-2023 01:18-0400 Heart rate 130 /min Ronobir LANNY [facility] 09-21-2023 13:24-0400 Hourly Rounding Jesse Slaughtersh [facility] 09-21-2023 13:24-0400 Promise to Return Jesse Angelo [facility] 09-21-2023 12:17-0400 Hourly Rounding Jesse Slaughtersh [facility] 09-21-2023 12:17-0400 Promise to Return Jesse Angelo [facility] 09-21-2023 12:00-0400 Body temperature 98.24 [degF] Jesse Angelo [facility] 09-21-2023 12:00-0400 Diastolic blood pressure 79 mm[Hg] Jesse Angelo [facility] 09-21-2023 12:00-0400 gluc 123 mg/dL Jesse Angelo [facility] 09-21-2023 12:00-0400 Heart rate 66 /min Jesse Angelo [facility] 09-21-2023 12:00-0400 Mean blood pressure 106 mm[Hg] Jesse Angelo [facility] 09-21-2023 12:00-0400 SaO2% (BldA) [Mass fraction] 98 % Jesse Angelo [facility] 09-21-2023 12:00-0400 Systolic blood pressure 160 mm[Hg] Jesse Angelo [facility] 09-21-2023 11:11-0400 Hourly Rounding Jesse Angelo [facility] 09-21-2023 11:11-0400 Promise to Return Jesse Angelo [facility] 09-21-2023 09:50-0400 Diastolic blood pressure 70 mm[Hg] Jesse Angelo [facility] 09-21-2023 09:50-0400 Systolic blood pressure 174 mm[Hg] Jesse Slaughtersh [facility] 09-21-2023 09:45-0400 Diastolic blood pressure 70 mm[Hg] Jesse Slaughtersh [facility] 09-21-2023 09:45-0400 Heart rate 74 /min Jesse Slaughtersh [facility] 09-21-2023 09:45-0400 Systolic blood pressure 174 mm[Hg] Jesse Slaughtersh [facility] 09-21-2023 07:35-0400 Heart rate 74 /min Jesse Slaughtersh [facility] 09-21-2023 07:35-0400 SaO2% (BldA) [Mass fraction] 96 % Jesse Slaughtersh [facility] 09-21-2023 07:35-0400 Mean blood pressure 105 mm[Hg] Jesse Slaughtersh [facility] 09-21-2023 07:34-0400 Body temperature 98.42 [degF] Jesse Slaughtersh [facility] 09-21-2023 04:00-0400 Blood Pressure Location Jesse Slaughtersh [facility] 09-21-2023 04:00-0400 Body temperature 97.7 [degF] Jesse Slaughtersh [facility] 09-21-2023 04:00-0400 Heart rate 84 /min Jesse Slaughtersh [facility] 09-21-2023 04:00-0400 Mean blood pressure 109 mm[Hg] Jesse Slaughtersh [facility] 09-21-2023 04:00-0400 Respiratory rate 16 /min Jesse Slaughtersh [facility] 09-20-2023 23:00-0400 Body temperature 97.34 [degF] Jesse Slaughtersh [facility] 09-20-2023 23:00-0400 Mean blood pressure 110 mm[Hg] Jesse Slaughtersh [facility] 09-20-2023 23:00-0400 Respiratory rate 16 /min Jesse Slaughtersh [facility] 09-20-2023 21:19-0400 Heart rate 74 /min Jesse Slaughtersh [facility] 09-20-2023 20:04-0400 Mean blood pressure 101 mm[Hg] Jesse Slaughtersh [facility] 09-20-2023 20:03-0400 Body temperature 97.88 [degF] Jesse Slaughtersh [facility] 09-20-2023 16:23-0400 Body temperature 98.06 [degF] Jesse Slaughtersh [facility] 09-20-2023 16:23-0400 Mean blood pressure 92 mm[Hg] Jesse Slaughtersh [facility] 09-20-2023 16:00-0400 gluc 146 mg/dL Jesse Slaughtersh [facility] 09-20-2023 12:00-0400 gluc 135 mg/dL Jesse Slaughtersh [facility] 09-20-2023 05:13-0400 Blood Pressure Location Jesse Slaughtersh [facility] 09-20-2023 05:13-0400 Respiratory rate 15 /min Jesse Slaughtersh [facility] 09-20-2023 00:00-0400 Respiratory rate 19 /min Jesse Slaughtersh [facility] 09-19-2023 11:00-0400 Heart rate 76 /min Jesse Angelo [facility] 09-19-2023 08:05-0400 Heart rate 86 /min Jesse Angelo [facility] 09-19-2023 06:48-0400 Respiratory rate 16 /min Jesse Angelo [facility] 09-19-2023 00:32-0400 Heart rate 108 /min Jesse Angelo [facility] 09-19-2023 00:32-0400 Respiratory rate 20 /min Jesse nAgelo [facility] 09-18-2023 21:53-0400 Heart rate 99 /min MD Nasim Guillaume Work Phone: [facility] 08-19-2023 12:14-0400 Body temperature 98.1 [degF] MD Nasim Guillaume Work Phone: [facility] 08-19-2023 12:14-0400 Diastolic blood pressure 84 mm[Hg] MD Nasim Guillaume Work Phone: [facility] 08-19-2023 12:14-0400 Heart rate 94 /min MD Nasim Guillaume Work Phone: [facility] 08-19-2023 12:14-0400 Respiratory rate 18 /min MD Nasim Guillaume Work Phone: [facility] 08-19-2023 12:14-0400 SaO2% (BldA) [Mass fraction] 95 % MD Nasim Guillaume Work Phone: [facility] 08-19-2023 12:14-0400 Systolic blood pressure 159 mm[Hg] MD Nasim Guillaume Work Phone: [facility] 08-19-2023 09:38-0400 Body height 187.96 cm MD Nasim Guillaume Work Phone: [facility] 08-19-2023 09:38-0400 Body weight 98 kg MD Nasim Guillaume Work Phone: [facility] 08-16-2023 10:49-0400 Body height 187.96 cm MD Nasim Guillaume Work Phone: [facility] 08-16-2023 10:49-0400 Body mass index (BMI) [Ratio] 29.1 kg/m2 MD Nasim Guillaume Work Phone: [facility] 08-16-2023 10:49-0400 Body temperature 97.7 [degF] MD Nasim Guillaume Work Phone: [facility] 08-16-2023 10:49-0400 Body weight 102.96 kg MD Nasim Guillaume Work Phone: [facility] 08-16-2023 10:49-0400 Diastolic blood pressure 68 mm[Hg] MD Nasim Guillaume Work Phone: [facility] 08-16-2023 10:49-0400 Heart rate 88 /min MD Nasim Guillaume Work Phone: [facility] 08-16-2023 10:49-0400 Respiratory rate 16 /min MD Nasim Guillaume Work Phone: [facility] 08-16-2023 10:49-0400 SaO2% (BldA) [Mass fraction] 97 % MD Nasim Guillaume Work Phone: [facility] 08-16-2023 10:49-0400 Systolic blood pressure 135 mm[Hg] MD Nasim Guillaume Work Phone: [facility] 08-09-2023 11:44-0400 Body height 187.96 cm MD Nasim Guillaume Work Phone: [facility] 08-09-2023 11:44-0400 Body mass index (BMI) [Ratio] 28 kg/m2 MD Nasim Guillaume Work Phone: [facility] 08-09-2023 11:44-0400 Body temperature 97.4 [degF] MD Nasim Guillaume Work Phone: [facility] 08-09-2023 11:44-0400 Body weight 98.88 kg MD Nasim Guillaume Work Phone: [facility] 08-09-2023 11:44-0400 Diastolic blood pressure 74 mm[Hg] MD Nasim Guillaume Work Phone: [facility] 08-09-2023 11:44-0400 Heart rate 69 /min MD Nasim Guillaume Work Phone: [facility] 08-09-2023 11:44-0400 SaO2% (BldA) [Mass fraction] 97 % MD Nasim Guillaume Work Phone: [facility] 08-09-2023 11:44-0400 Systolic blood pressure 132 mm[Hg] MD Nasim Guillaume Work Phone: [facility] 06-24-2023 15:09-0400 Body height 187.96 cm DO Tiki Petznick Work Phone: [facility] 06-24-2023 15:09-0400 Body mass index (BMI) [Ratio] 28.4 kg/m2 DO Tiki Petznick Work Phone: [facility] 06-24-2023 15:09-0400 Body temperature 99 [degF] DO Tiki Petznick Work Phone: [facility] 06-24-2023 15:09-0400 Body weight 100.35 kg DO Tiki Petznick Work Phone: [facility] 06-24-2023 15:09-0400 Diastolic blood pressure 72 mm[Hg] DO Tiki Petznick Work Phone: [facility] 06-24-2023 15:09-0400 Heart rate 81 /min DO Tiki Petznick Work Phone: [facility] 06-24-2023 15:09-0400 Respiratory rate 16 /min DO Tiki Petznick Work Phone: 4(228)170-423460 [address] 06-24-2023 15:09-0400 SaO2% (BldA) [Mass fraction] 94 % DO Tiki Petznick Work Phone: [facility] 06-24-2023 15:09-0400 Systolic blood pressure 123 mm[Hg] DO Tiki Petznick Work Phone: 9([phone] [place] [address] 05-30-2023 14:57-0400 Body height 187.96 cm DO Tiki Petznick Work Phone: 7(630)[phone] [place] [address] 05-30-2023 14:57-0400 Body mass index (BMI) [Ratio] 30.2 kg/m2 DO Tiki Petznick Work Phone: [facility] 05-30-2023 14:57-0400 Body temperature 98.5 [degF] DO Tiki Petznick Work Phone: [facility] 05-30-2023 14:57-0400 Body weight 107.04 kg DO Tiki Petznick Work Phone: [facility] 05-30-2023 14:57-0400 Diastolic blood pressure 77 mm[Hg] DO Tiki Petznick Work Phone: [facility] 05-30-2023 14:57-0400 Systolic blood pressure 140 mm[Hg] DO Tiki Petznick Work Phone: [facility] 05-22-2023 10:16-0400 Body height 187.96 cm DO Tiki Petznick Work Phone: [facility] 05-22-2023 10:16-0400 Body mass index (BMI) [Ratio] 29.4 kg/m2 DO Tiki Petznick Work Phone: [facility] 05-22-2023 10:16-0400 Body temperature 97.3 [degF] DO Tiki Petznick Work Phone: [facility] 05-22-2023 10:16-0400 Body weight 103.87 kg DO Tiki Petznick Work Phone: [facility] 05-22-2023 10:16-0400 Diastolic blood pressure 66 mm[Hg] DO Tiki Petznick Work Phone: [facility] 05-22-2023 10:16-0400 Heart rate 85 /min DO Tiki Petznick Work Phone: [facility] 05-22-2023 10:16-0400 Respiratory rate 16 /min DO Tiki Petznick Work Phone: [facility] 05-22-2023 10:16-0400 SaO2% (BldA) [Mass fraction] 96 % DO Tiki Petznick Work Phone: [facility] 05-22-2023 10:16-0400 Systolic blood pressure 133 mm[Hg] DO Tiki Petznick Work Phone: [facility] 05-02-2023 22:42-0500 Diastolic blood pressure 70 mm[Hg] MD Nasim Guillaume Work Phone: [facility] 05-02-2023 22:42-0500 Heart rate 101 /min MD Nasim Guillaume Work Phone: [facility] 05-02-2023 22:42-0500 Respiratory rate 18 /min MD Nasim Guillaume Work Phone: [facility] 05-02-2023 22:42-0500 SaO2% (BldA) [Mass fraction] 94 % MD Nasim Guillaume Work Phone: [facility] 05-02-2023 22:42-0500 Systolic blood pressure 147 mm[Hg] MD Nasim Guillaume Work Phone: [facility] 05-02-2023 18:45-0500 Body height 187.96 cm MD Nasim Guillaume Work Phone: [facility] 05-02-2023 18:45-0500 Body temperature 100.2 [degF] MD Nasim Guillaume Work Phone: [facility] 05-02-2023 18:45-0500 Body weight 108.86 kg MD Nasim Guillaume Work Phone: [facility] 05-01-2023 21:12-0500 SaO2% (BldA) [Mass fraction] 94 % MD Nasim Guillaume Work Phone: [facility] 05-01-2023 20:59-0500 Body temperature 98.4 [degF] MD Nasim Guillaume Work Phone: [facility] 05-01-2023 20:59-0500 Diastolic blood pressure 74 mm[Hg] MD Nasim Guillaume Work Phone: [facility] 05-01-2023 20:59-0500 Heart rate 103 /min MD Nasim Guillaume Work Phone: [facility] 05-01-2023 20:59-0500 Inhaled oxygen flow rate 3.5 L/min MD Nasim Guillaume Work Phone: [facility] 05-01-2023 20:59-0500 Respiratory rate 22 /min MD Nasim Guillaume Work Phone: [facility] 05-01-2023 20:59-0500 Systolic blood pressure 149 mm[Hg] MD Nasim Guillaume Work Phone: [facility] 05-01-2023 17:55-0500 Body height 187.96 cm MD Nasim Guillaume Work Phone: [facility] 05-01-2023 17:55-0500 Body weight 110.8 kg MD Nasim Guillaume Work Phone: [facility] 04-25-2023 09:58-0500 Body height 182.9 cm Tiki Petznick DO Work Phone: [facility] 04-25-2023 09:58-0500 Body mass index (BMI) [Ratio] 31.33 kg/m2 Tiki Petznick DO Work Phone: [facility] 04-25-2023 09:58-0500 Body temperature 98.6 [degF] Tiki Petznick DO Work Phone: [facility] 04-25-2023 09:58-0500 Body weight 104.78 kg Tiki Petznick DO Work Phone: [facility] 04-25-2023 09:58-0500 Diastolic blood pressure 78 mm[Hg] Tiki Petznick DO Work Phone: [facility] 04-25-2023 09:58-0500 Heart rate 79 /min Tiki Petznick DO Work Phone: [facility] 04-25-2023 09:58-0500 SaO2% (BldA) [Mass fraction] 96 % Tiki Petznick DO Work Phone: [facility] 04-25-2023 09:58-0500 Systolic blood pressure 136 mm[Hg] Tiki Petznick DO Work Phone: [facility] 04-18-2023 11:02-0500 Body height 182.9 cm Tiki Petznick DO Work Phone: [facility] 04-18-2023 11:02-0500 Body mass index (BMI) [Ratio] 31.46 kg/m2 Tiki Petznick DO Work Phone: [facility] 04-18-2023 11:02-0500 Body temperature 98.49 [degF] Tiki Petznick DO Work Phone: [facility] 04-18-2023 11:02-0500 Body weight 105.23 kg Tiki Petznick DO Work Phone: [facility] 04-18-2023 11:02-0500 Diastolic blood pressure 72 mm[Hg] Tiki Petznick DO Work Phone: [facility] 04-18-2023 11:02-0500 Heart rate 80 /min Tiki Petznick DO Work Phone: [facility] 04-18-2023 11:02-0500 SaO2% (BldA) [Mass fraction] 98 % Tiki Petznick DO Work Phone: [facility] 04-18-2023 11:02-0500 Systolic blood pressure 136 mm[Hg] Tiki Petznick DO Work Phone: [facility] 04-13-2023 12:41-0500 Diastolic blood pressure 91 mm[Hg] DO Tiki Petznick Work Phone: [facility] 04-13-2023 12:41-0500 Heart rate 78 /min DO Tiki Petznick Work Phone: [facility] 04-13-2023 12:41-0500 Respiratory rate 20 /min DO Tiki Petznick Work Phone: [facility] 04-13-2023 12:41-0500 SaO2% (BldA) [Mass fraction] 94 % DO Tiki Petznick Work Phone: [facility] 04-13-2023 12:41-0500 Systolic blood pressure 166 mm[Hg] DO Tiki Petznick Work Phone: [facility] 04-13-2023 09:43-0500 Body height 187.96 cm DO Tiki Petznick Work Phone: [facility] 04-13-2023 09:43-0500 Body weight 107.1 kg DO Tiki Petznick Work Phone: [facility] 04-13-2023 09:38-0500 Body temperature 97.8 [degF] DO Tiki Petznick Work Phone: [facility] 02-19-2023 14:32-0500 Body weight 107.5 kg Elba Henry PA-C Work Phone: [facility] 02-19-2023 14:32-0500 Diastolic blood pressure 70 mm[Hg] Elba Henry LIDIA-C Work Phone: [facility] 02-19-2023 14:32-0500 Heart rate 85 /min Elba Henry PA-C Work Phone: [facility] 02-19-2023 14:32-0500 Systolic blood pressure 129 mm[Hg] Elba Henry PA-C Work Phone: [facility] 12-17-2022 09:40-0400 Body height 187.96 cm Tammy Lonnie Other [employer] Other 12-17-2022 09:40-0400 Body mass index (BMI) [Ratio] 29.84 kg/m2 Tammy Lonnie Other [employer] Other 12-17-2022 09:40-0400 Body temperature 98.6 [degF] Tammy Lonnie Other [employer] Other 12-17-2022 09:40-0400 Body weight 105.42 kg Tammy Lonnie Other [employer] Other 12-17-2022 09:40-0400 Diastolic blood pressure 75 mm[Hg] Tammy Lonnie Other [employer] Other 12-17-2022 09:40-0400 Respiratory rate 18 /min Tammy Lonnie Other [employer] Other 12-17-2022 09:40-0400 SaO2% (BldA) [Mass fraction] 96 % Tammy Lonnie Other [employer] Other 12-17-2022 09:40-0400 Systolic blood pressure 139 mm[Hg] Tammy Fleming Other [facility] [employer] Other 11-21-2022 10:50-0400 Body height 187.96 cm MD Nasim Guillaume Work Phone: [facility] 11-21-2022 10:50-0400 Body temperature 98.1 [degF] MD Nasim Guillaume Work Phone: [facility] 11-21-2022 10:50-0400 Body weight 107.31 kg MD Nasim Guillaume Work Phone: [facility] 11-21-2022 10:50-0400 Diastolic blood pressure 73 mm[Hg] MD Nasim Guillaume Work Phone: [facility] 11-21-2022 10:50-0400 Heart rate 74 /min MD Nasim Guillaume Work Phone: [facility] 11-21-2022 10:50-0400 Respiratory rate 20 /min MD Nasim Guillaume Work Phone: [facility] 11-21-2022 10:50-0400 SaO2% (BldA) [Mass fraction] 96 % MD Nasim Guillaume Work Phone: [facility] 11-21-2022 10:50-0400 Systolic blood pressure 128 mm[Hg] MD Nasim Guillaume Work Phone: [facility] 11-07-2022 17:09-0400 Body height 188 cm Jordan Jordan DO Work Phone: [facility] 11-07-2022 17:09-0400 Body weight 105.69 kg Jordan Jordan DO Work Phone: [facility] 11-07-2022 17:09-0400 Heart rate 74 /min Jordan Jordan DO Work Phone: [facility] 11-07-2022 17:09-0400 SaO2% (BldA) [Mass fraction] 97 % Jordan Jordan DO Work Phone: [facility] 10-19-2022 10:51-0400 Diastolic blood pressure 82 mm[Hg] Pacc 2 Work Phone: [facility] 10-19-2022 10:51-0400 Systolic blood pressure 160 mm[Hg] Pacc 2 Work Phone: [facility] 10-19-2022 10:06-0400 Body height 200.7 cm Pacc 2 Work Phone: [facility] 10-19-2022 10:06-0400 Body temperature 98.6 [degF] Pacc 2 Work Phone: [facility] 10-19-2022 10:06-0400 Body weight 108.41 kg Pacc 2 Work Phone: [facility] 10-19-2022 10:06-0400 Heart rate 90 /min Pacc 2 Work Phone: [facility] 10-19-2022 10:06-0400 Respiratory rate 20 /min Pacc 2 Work Phone: [facility] 10-19-2022 10:06-0400 SaO2% (BldA) [Mass fraction] 97 % Pacc 2 Work Phone: [facility] 08-13-2022 10:53-0400 Body height 188 cm Jordan Jordan DO Work Phone: [facility] 08-13-2022 10:53-0400 Body weight 111.13 kg Jordan Jordan DO Work Phone: [facility] 08-13-2022 10:53-0400 Heart rate 80 /min Jordan Jordan DO Work Phone: [facility] 08-13-2022 10:53-0400 SaO2% (BldA) [Mass fraction] 95 % Jordan Jordan DO Work Phone: [facility] 06-11-2022 16:20-0400 Body height 187.96 cm Tammy Lonnie Other [employer] Other 06-11-2022 16:20-0400 Body mass index (BMI) [Ratio] 30.91 kg/m2 Tammy Lonnie Other [employer] Other 06-11-2022 16:20-0400 Body temperature 98.2 [degF] Tammy Lonnie Other [employer] Other 06-11-2022 16:20-0400 Body weight 109.23 kg Tammy Lonnie Other [employer] Other 06-11-2022 16:20-0400 Diastolic blood pressure 75 mm[Hg] Tammy Lonnie Other [employer] Other 06-11-2022 16:20-0400 Respiratory rate 18 /min Tammy Lonnie Other [employer] Other 06-11-2022 16:20-0400 SaO2% (BldA) [Mass fraction] 97 % Tammy Lonnie Other [employer] Other 06-11-2022 16:20-0400 Systolic blood pressure 124 mm[Hg] Tammy Lonnie Other [employer] Other 05-17-2022 10:41-0500 Body temperature 98.2 [degF] MD Nasim Guillaume Work Phone: [facility] 05-17-2022 10:41-0500 Body weight 111.3 kg MD Nasim Guillamue Work Phone: [facility] 05-17-2022 10:41-0500 Diastolic blood pressure 95 mm[Hg] MD Nasim Guillaume Work Phone: [facility] 05-17-2022 10:41-0500 Heart rate 97 /min MD Nasim Guillaume Work Phone: [facility] 05-17-2022 10:41-0500 Respiratory rate 20 /min MD Nasim Guillaume Work Phone: [facility] 05-17-2022 10:41-0500 SaO2% (BldA) [Mass fraction] 99 % MD Nasim Guillaume Work Phone: [facility] 05-17-2022 10:41-0500 Systolic blood pressure 155 mm[Hg] MD Nasim Guillaume Work Phone: [facility] 02-15-2022 10:10-0500 Body height 187.96 cm MD Nasim Guillaume Work Phone: [facility] 02-15-2022 10:10-0500 Body weight 110 kg MD Nasim Guillaume Work Phone: [facility] 02-15-2022 10:10-0500 Diastolic blood pressure 81 mm[Hg] MD Nasim Guillaume Work Phone: [facility] 02-15-2022 10:10-0500 Heart rate 105 /min MD Nasim Guillaume Work Phone: [facility] 02-15-2022 10:10-0500 Respiratory rate 20 /min MD Nasim Guillaume Work Phone: [facility] 02-15-2022 10:10-0500 SaO2% (BldA) [Mass fraction] 98 % MD Nasim Guillaume Work Phone: [facility] 02-15-2022 10:10-0500 Systolic blood pressure 150 mm[Hg] MD Nasim Hardacre Work Phone: [facility] 12-12-2021 14:41-0400 Body temperature 98.6 [degF] DO Tiki Petznick Work Phone: [facility] 12-12-2021 14:41-0400 Body weight 105.36 kg DO Tiki Petznick Work Phone: [facility] 12-12-2021 14:41-0400 Diastolic blood pressure 86 mm[Hg] DO Tiki Petznick Work Phone: [facility] 12-12-2021 14:41-0400 Heart rate 92 /min DO Tiki Petznick Work Phone: [facility] 12-12-2021 14:41-0400 Respiratory rate 18 /min DO Tiki Petznick Work Phone: [facility] 12-12-2021 14:41-0400 SaO2% (BldA) [Mass fraction] 97 % DO Tiki Petznick Work Phone: [facility] 12-12-2021 14:41-0400 Systolic blood pressure 142 mm[Hg] DO Tiki Petznick Work Phone: [facility] 11-15-2021 10:13-0400 Body temperature 97 [degF] DO Tiki Petznick Work Phone: [facility] 11-15-2021 10:13-0400 Body weight 103.87 kg DO Tiki Petznick Work Phone: [facility] 11-15-2021 10:13-0400 Diastolic blood pressure 90 mm[Hg] DO Tiki Petznick Work Phone: [facility] 11-15-2021 10:13-0400 Heart rate 92 /min DO Tiki Petznick Work Phone: [facility] 11-15-2021 10:13-0400 Respiratory rate 16 /min DO Tiki Petznick Work Phone: [facility] 11-15-2021 10:13-0400 SaO2% (BldA) [Mass fraction] 95 % DO Tiki Petznick Work Phone: [facility] 11-15-2021 10:13-0400 Systolic blood pressure 152 mm[Hg] DO Tiki Petznick Work Phone: [facility] 10-25-2021 10:30-0400 Body height 187.96 cm Andrew Vazquez Other [employer] Other 10-25-2021 10:30-0400 Body mass index (BMI) [Ratio] 28.89 kg/m2 Andrew Vazquez Other [employer] Other 10-25-2021 10:30-0400 Body weight 102.06 kg Andrew Vazquez Other [employer] Other 09-06-2021 12:23-0400 Body height 187.96 cm DO Tiki Petznick Work Phone: [facility] 09-06-2021 12:23-0400 Body mass index (BMI) [Ratio] 27.6 kg/m2 DO Tiki Petznick Work Phone: [facility] 09-06-2021 12:23-0400 Body weight 97.52 kg DO Tiki Petznick Work Phone: [facility] 08-30-2021 11:00-0400 Body height 187.96 cm Andrew Vazquez Other [employer] Other 08-30-2021 11:00-0400 Body mass index (BMI) [Ratio] 27.6 kg/m2 Andrew Vazquez Other [employer] Other 08-30-2021 11:00-0400 Body weight 97.52 kg Andrew Vazquez Other [employer] Other 08-30-2021 11:00-0400 Diastolic blood pressure 78 mm[Hg] Andrew Vazquez Other [employer] Other 08-30-2021 11:00-0400 Systolic blood pressure 141 mm[Hg] Andrew Vazquez Other [employer] Other 07-17-2021 11:15-0400 Body height 187.96 cm Kameron Mullen Other [employer] Other 07-17-2021 11:15-0400 Body mass index (BMI) [Ratio] 27.09 kg/m2 Kameron Mullen Other [employer] Other 07-17-2021 11:15-0400 Body weight 95.71 kg Kameron Mullen Other [employer] Other 07-17-2021 11:15-0400 Diastolic blood pressure 68 mm[Hg] Kameron Carranzaky Other [employer] Other 07-17-2021 11:15-0400 SaO2% (BldA) [Mass fraction] 98 % Kameron Mlulen Other [employer] Other 07-17-2021 11:15-0400 Systolic blood pressure 126 mm[Hg] Kameron Mullen Other [employer] Other 10-03-2020 09:13-0400 Body height 187.96 cm DO Tiki Dockery Work Phone: [facility] 02-15-2020 22:09-0500 Body temperature 37.0 {degrees_C} Margaret BELTREWH-Pquflme-Qispreev [facility] Work Phone: Comment on above: NOTE: PATIENT RESULTS ARE NOT CORRECTED FOR TEMPERATURE. 02-15-2020 18:42-0500 Body temperature 37.0 {degrees_C} Margaret Crawford SF-Sfptimh-Srscqqrg [facility] Work Phone: Comment on above: NOTE: PATIENT RESULTS ARE NOT CORRECTED FOR TEMPERATURE. 02-15-2020 16:36-0500 Body temperature 37.0 {degrees_C} Margaret Crawford CN-Pfpiefm-Cutfkxbh [facility] Work Phone: Comment on above: NOTE: PATIENT RESULTS ARE NOT CORRECTED FOR TEMPERATURE. 02-15-2020 15:11-0500 Body temperature 37.0 {degrees_C} Margaret Crawford TJ-Oiedtau-Wblpnshn [facility] Work Phone: Comment on above: NOTE: PATIENT RESULTS ARE NOT CORRECTED FOR TEMPERATURE. 02-15-2020 13:21-0500 Body temperature 37.0 {degrees_C} Margaret Crawford OG-Nulzjav-Hrinfudn [facility] Work Phone: Comment on above: NOTE: PATIENT RESULTS ARE NOT CORRECTED FOR TEMPERATURE. 02-15-2020 12:16-0500 Body temperature 37.0 {degrees_C} Margaret Crawford BZ-Njxydhv-Lbshwwun [facility] Work Phone: Comment on above: NOTE: PATIENT RESULTS ARE NOT CORRECTED FOR TEMPERATURE. 02-15-2020 11:10-0500 Body temperature 37.0 {degrees_C} Margaret Crawford MD-Dibwrpk-Crxcwvct [facility] Work Phone: Comment on above: NOTE: PATIENT RESULTS ARE NOT CORRECTED FOR TEMPERATURE. 02-05-2020 17:12-0500 BMI (Body Mass Index) 25.17 kg/m2 Margaret Crawford UX-Utqahup-Ejgvwaoy [facility] Work Phone: 02-05-2020 17:12-0500 Body weight 88.91 kg Margaret Crawford RW-Wgjzfoz-Phqiu master [facility] Work Phone: 02-05-2020 17:12-0500 BP Diastolic 79 mm[Hg] Margaret Crawford CT-Gulirgs-Vvzvc master [facility] Work Phone: 02-05-2020 17:12-0500 BP Systolic 137 mm[Hg] Margaret Crawford TA-Ekbdrfr-Nzibl master [facility] Work Phone: 02-05-2020 17:12-0500 BSA (Body Surface Area) 2.15 m2 Margaret Crawford RE-Utwgsuu-Hrourtlb [facility] Work Phone: 02-05-2020 17:12-0500 Height 187.96 cm Margaret Crawford HQ-Iopbxol-Yxxmj master [facility] Work Phone: 02-05-2020 17:12-0500 Pulse (Heart Rate) 62 /min Margaret Crawford LI-Uwkztzy-Xr stlake [facility] Work Phone: 01-06-2020 11:15-0400 BMI (Body Mass Index) 26 kg/m2 Destiney Salas [facility] Work Phone: 01-06-2020 11:15-0400 Body Temperature 95.9 [degF] Destiney Salas [facility] Work Phone: 01-06-2020 11:15-0400 Body weight 91.85 kg Destiney Salas [facility] Work Phone: 01-06-2020 11:15-0400 BP Diastolic 75 mm[Hg] Destiney Salas [facility] Work Phone: 01-06-2020 11:15-0400 BP Systolic 166 mm[Hg] Destiney Salas [facility] Work Phone: 01-06-2020 11:15-0400 BSA (Body Surface Area) 2.18 m2 Destiney Salas [facility] Work Phone: 01-06-2020 11:15-0400 Height 187.96 cm Destiney Salas [facility] Work Phone: 01-06-2020 11:15-0400 Pulse (Heart Rate) 85 /min Destiney Salas [facility] Work Phone: Encounters Encounter Date Encounter Type Care Provider Facility Start: 05-29-2024 ambulatory Clarence Rebollar ty:KAUSHAL Singh Start: 05-04-2024 ambulatory Clarence SYED Facili ty:[facility] Start: 04-29-2024 End: 04-29-2024 ambulatory Clarence SYED Facility:[id number] Start: 04-29-2024 End: 04-29-2024 Patient encounter procedure Nasim Guillaume MD Work Phone: [facility] Work Phone: Start: 04-26-2024 End: 04-26-2024 Emergency department patient visit Danielle Vance [facility] Start: 04-24-2024 End: 04-24-2024 Emergency department patient visit Mark Alves [facility] Start: 04-21-2024 End: 04-21-2024 ambulatory HERNANDEZ ARAMBULA Not Available Start: 04-17-2024 End: 04-17-2024 Clinisync Result Encounter Generic External Data Provider [facility] External Department Unsolicited Start: 04-17-2024 End: 04-17-2024 Clinisync Result Encounter Generic External Data Provider [facility] External Department Unsolicited Start: 04-13-2024 End: 04-13-2024 Bamboo flowsheet Hernandez Arambula DPM Work Phone: [facility] Start: 04-13-2024 End: 04-13-2024 Bamboo flowsheet Hernandez Arambula DPM Work Phone: [facility] Start: 04-13-2024 End: 04-13-2024 Office outpatient visit 15 minutes Hernandez Arambula DPM Work Phone: [facility] Comment on above: Cellulitis of right heel (Primary Dx); Ulcer of heel, right, with fat layer exposed (CMS/HCC); Neuropathy; Type II diabetes mellitus with neurological manifestations (CMS/HCC) Start: 04-13-2024 End: 04-13-2024 ambulatory HERNANDEZ ARAMBULA Not Available Start: 04-02-2024 Registered Recurring Nasim martinez MD Work Phone: [facility] Start: 04-02-2024 ambulatory Tiki Petguyick Facili ty:[facility] Start: 03-26-2024 Evaluation and manag ement of inpatient Nasim Guillaume MD Work Phone: [facility] Work Phone: Start: 03-26-2024 ambulatory Tiki Petznick Facili ty:[facility] Start: 03-26-2024 End: 03-26-2024 Office outpatient visit 25 minutes Hernandez Arambula DPM Work Phone: [facility] Comment on above: Neuropathy (Primary Dx); Type II diabetes mellitus with neurological manifestations (CMS/HCC); Cellulitis of right heel; Status post amputation of great toe, right (CMS/HCC); Ulcer of heel, right, with fat layer exposed (CMS/HCC); Onychomycosis Start: 03-26-2024 End: 03-26-2024 ambulatory HERNANDEZ ARAMBULA Not Available Start: 03-25-2024 End: 03-25-2024 Telephone encounter Tiki Dockery DO Work Phone: [facility] Comment on above: paperwork Start: 03-24-2024 End: 03-24-2024 ambulatory Clarence SYED [facility] Start: 03-24-2024 End: 03-24-2024 Patient encounter procedure Clarence SYED [facility] Start: 03-09-2024 End: 03-09-2024 Telephone encounter Tiki Dockery DO Work Phone: [facility] Start: 02-28-2024 End: 02-28-2024 Patient encounter procedure Nasim Guillaume MD Work Phone: [facility] Work Phone: Start: 02-24-2024 End: 02-24-2024 ambulatory TIKI SARKIS Facility[place] Start: 02-24-2024 End: 02-24-2024 Patient encounter procedure TIKI DOCKERY [facility] Start: 02-17-2024 End: 02-17-2024 Clinisync Result Encounter Tiki Dockery DO Work Phone: [facility] External Department Unsolicited Start: 02-17-2024 End: 02-17-2024 Clinisync Result Encounter Tiki Dockery DO Work Phone: [facility] External Department Unsolicited Start: 02-17-2024 End: 02-17-2024 ambulatory TIKI DOCKERY Facility[place] Start: 02-17-2024 End: 02-17-2024 Patient encounter procedure TIKI DOCKERY [facility] Start: 02-14-2024 End: 02-14-2024 Bamboo flowsheet Tiki Lemusick DO Work Phone: [facility] Start: 02-14-2024 End: 02-14-2024 Bamboo flowsheet Tiki Lemusick DO Work Phone: [facility] Start: 02-14-2024 End: 02-14-2024 Telephone encounter Tiki Dockery DO Work Phone: [facility] Start: 02-14-2024 End: 02-14-2024 Office outpatient visit 25 minutes Tiki Dockery DO Work Phone: [facility] Comment on above: Diarrhea, unspecifie d type (Primary Dx); Neck pain Start: 02-14-2024 End: 02-14-2024 ambulatory TIKI DOCKERY Not Available Start: 02-13-2024 End: 02-13-2024 Patient encounter procedure Nasim Guillaume MD Work Phone: [facility] Work Phone: Start: 02-10-2024 End: 02-10-2024 Emergency department patient visit Mark Alves [facility] Start: 02-10-2024 End: 02-10-2024 ambulatory Jadon Lino Facility:[facility] Start: 02-10-2024 End: 02-10-2024 Patient encounter procedure Jadon Lion [facility] Start: 02-03-2024 End: 02-03-2024 Patient encounter procedure Nasim Guillaume MD Work Phone: [facility] Work Phone: Start: 01-24-2024 End: 01-24-2024 ambulatory HERNANDEZ MENDEZ Facility[place] Start: 01-24-2024 End: 01-24-2024 Lab Drop off HERNANDEZ MENDEZ [place] Start: 01-23-2024 End: 01-23-2024 ambulatory Donna J Galea Facility:[facility] Start: 01-23-2024 End: 01-23-2024 Patient encounter procedure HERNANDEZ MENDEZ [facility] Start: 01-06-2024 End: 01-06-2024 ambulatory Donna J Galea Facility:[facility] Start: 01-06-2024 End: 01-06-2024 Patient encounter procedure Donna J Galea [facility] Start: 12-31-2023 End: 12-31-2023 ambulatory DO Tiki Petznick Work Phone: [facility] Work Phone: Start: 12-31-2023 End: 12-31-2023 Patient encounter procedure DO Tiki Petznick Work Phone: [facility] Work Phone: Start: 12-30-2023 Evaluation and manag ement of inpatient DO Tiki Dockery Work [facility] Work Phone: Start: 12-13-2023 Non-patient / Non-visit DO Mejia Dockery Work Phone: [facility] Work Phone: Start: 12-13-2023 End: 12-13-2023 ambulatory MD TAMMY FLEMING Facility:[facility] Start: 12-13-2023 End: 12-13-2023 Patient encounter procedure TAMMY FLEMING [facility] Start: 12-10-2023 End: 12-10-2023 Office outpatient visit 25 minutes Tiki Dockery DO Work Phone: [facility] Comment on above: Chemotherapy-induced neuropathy (CMS/HCC) (Primary Dx); Type 2 diabetes mellitus with peripheral neuropathy (CMS/HCC); Type 2 diabetes mellitus with stage 3a chronic kidney disease, with long-term current use of insulin (HCC) (CMS/HCC); TED (obstructive sleep apnea); Simple chronic bronchitis (CMS/HCC); Essential hypertension (CMS/HCC); Peripheral vascular disease (CMS/HCC); Pulmonary hypertension (CMS/HCC); Congestive heart failure with left ventricular diastolic dysfunction, chronic (CMS/HCC); Cirrhosis of liver without ascites, unspecified hepatic cirrhosis type (CMS/HCC); GERD without esophagitis; Pancreatic insufficiency (CMS/HCC); Chronic hepatitis C without hepatic coma (CMS/HCC); Benign prostatic hyperplasia with urinary frequency; Stage 3a chronic kidney disease (HCC) (CMS/HCC); Anxiety; Chronic depression (CMS/HCC); Status post amputation of great toe, right (CMS/HCC); Pure hypercholesterolemia (CMS/HCC); History of malignant neoplasm of pancreas; Type 2 diabetes mellitus with diabetic polyneuropathy, with long-term current use of insulin (CMS/HCC); Type II diabetes mellitus with neurological manifestations (CMS/HCC) Start: 12-10-2023 End: 12-10-2023 ambulatory TIKI M PETZNICK Not Available Start: 12-10-2023 Registered Recurring DO Alliso n Petznick Work Phone: [facility] Start: 11-26-2023 End: 11-26-2023 Office outpatient visit 15 minutes Tiki M Petznick DO Work Phone: [facility] Comment on above: Erectile dysfunction , unspecified erectile dysfunction type (Primary Dx); Abscess Start: 11-26-2023 End: 11-26-2023 ambulatory TIKI M PETZNICK Not Available Start: 11-21-2023 End: 11-21-2023 Emergency department patient visit DO Tiki Petznick Work Phone: [facility] Work Phone: Start: 11-21-2023 End: 11-21-2023 ambulatory DO Tiki Petznick Work Phone: [facility] Work Phone: Start: 11-21-2023 End: 11-21-2023 Patient encounter procedure DO Tiki Petznick Work Phone: [facility] Work Phone: Start: 11-21-2023 Evaluation and manag ement of inpatient DO Tiki Petznick Work Phone: [facility] Work Phone: Start: 11-19-2023 End: 11-19-2023 External Result Encounter Margaret Delgado MD Work Phone: [facility] External Department Unsolicited Start: 11-19-2023 End: 11-19-2023 External Result Encounter Margaret Delgado MD Work Phone: [facility] External Department Unsolicited Start: 10-24-2023 End: 11-19-2023 Orders Only Tiki M Petznick DO Work Phone: [facility] External Department Unsolicited Start: 10-24-2023 End: 10-24-2023 ambulatory TIKI M PETZNICK Not Available Start: 10-15-2023 End: 10-15-2023 ambulatory DO Tiki Petguyick Work Phone: [facility] Work Phone: Start: 10-15-2023 End: 10-15-2023 Patient encounter procedure DO Tiki Petangel Work Phone: [facility] Work Phone: Start: 10-10-2023 End: 01-18-2024 ambulatory Kathi CARIAS Facility:[facility] Start: 10-10-2023 End: 10-10-2023 Patient encounter procedure [facility] Start: 10-10-2023 End: 01-18-2024 Recurring [facility] Start: 10-08-2023 ambulatory TIKISHANA DOCKERY Facili ty:[facility] Start: 10-05-2023 End: 10-09-2023 Evaluation and management of inpatient DO Chelsea Ortiz Facility[facility] Start: 10-05-2023 Emergency department patient visit [facility] [place] Facility[facility] Start: 10-05-2023 End: 10-09-2023 Evaluation and management of inpatient Ronobir Niki CA [facility] Start: 09-27-2023 Evaluation and manag ement of inpatient DO Tiki Dockery Work Phone: [facility] Work Phone: Start: 09-20-2023 End: 09-21-2023 Evaluation and management of inpatient Jesse Angelo Facility:[facility] Start: 09-19-2023 ambulatory Jesse Angelo Facility:[facility] Start: 09-19-2023 End: 09-21-2023 Evaluation and management of inpatient Jesse Angelo [facility] Start: 09-18-2023 End: 09-18-2023 Emergency department patient visit MD Nasim Guillaume Work Phone: [facility]Emergency Room Work Phone: Start: 09-10-2023 End: 09-10-2023 ambulatory TIKI DOCKERY [facility] Start: 09-10-2023 End: 09-10-2023 Patient encounter procedure TIKI DOCKERY [facility] Start: 09-09-2023 End: 09-09-2023 ambulatory TIKI DOCKERY Not Available Start: 08-19-2023 End: 08-19-2023 Emergency department patient visit MD Nasim Guillaume Work Phone: [facility]Emer[facility] Work Phone: Start: 08-16-2023 Evaluation and manag ement of inpatient MD Nasim Guillaume Work Phone: [facility] Acute Work Phone: Start: 08-16-2023 End: 08-16-2023 ambulatory MD Nasim Guillaume Work Phone: [facility] Work Phone: Start: 08-16-2023 End: 08-16-2023 Patient encounter procedure MD Nasim [facility]illaume [facility] Work Phone: Start: 08-09-2023 End: 08-09-2023 ambulatory MD Nasim Guillaume Work Phone: [facility] Work Phone: Start: 08-09-2023 End: 08-09-2023 Patient encounter procedure MD Nasim Guillaume Work Phone: [facility] Palliative Care Work Phone: Start: 06-27-2023 End: 06-27-2023 ambulatory DO Tiki Petznick Work Phone: [facility] Work Phone: Start: 06-27-2023 End: 06-27-2023 Patient encounter procedure DO Tiki Petznick Work Phone: [facility] Physician [facility] [place] Ambulatory Work Phone: Start: 06-27-2023 Evaluation and manag ement of inpatient DO Tiki Petznick Work Phone: [facility] Work Phone: Start: 06-24-2023 End: 06-24-2023 ambulatory DO Tiki Petznick Work Phone: [facility] Work Phone: Start: 06-24-2023 End: 06-24-2023 Patient encounter procedure DO Tiki Petznick Work Phone: [facility] Physician [facility] Nephrology Work Phone: Start: 06-24-2023 End: 06-24-2023 ambulatory TIKI M PETZNICK Not Available Start: 06-19-2023 Non-patient / Non-visit DO All shana Petznick Work Phone: [facility] Physician [facility] Professional [facility] Work Phone: Start: 06-19-2023 End: 06-19-2023 ambulatory TAMMY LONNIE [facility] Start: 06-19-2023 End: 06-19-2023 Patient encounter procedure TAMMY LONNIE [facility] Start: 05-30-2023 End: 05-30-2023 ambulatory DO Tiki Petznick Work Phone: [facility] Work Phone: Start: 05-30-2023 End: 05-30-2023 Patient encounter procedure DO Tiki Petznick Work Phone: [facility] Palliative Care Work Phone: Start: 05-24-2023 Evaluation and manag ement of inpatient DO Tiki Dockery Work Phone: [facility] Work Phone: Start: 05-22-2023 Telephone encounter Elba Henry PA-C Work Phone: Pain Management Comment on above: Appointment Start: 05-22-2023 End: 05-22-2023 Patient encounter procedure DO Tikishana Lemusick Work Phone: [facility] Ambulatory Work Phone: Start: 05-20-2023 End: 05-20-2023 ambulatory HERNANDEZ ARAMBULA Not Available Start: 05-14-2023 End: 05-14-2023 ambulatory TIKI LEMUSCORINNA Facility:[facility] Start: 05-10-2023 Telephone encounter Elba Henry PA-C Work Phone: Pain Management Comment on above: Appointment Start: 05-02-2023 End: 05-02-2023 Emergency department patient visit MD Nasim Guillaume Work Phone: [facility]Emergency Room Work Phone: Start: 05-02-2023 End: 05-02-2023 ambulatory TIKI DOCKERY Not Available Start: 05-01-2023 End: 05-01-2023 Emergency department patient visit MD Nasim Guillaume Work Phone: [facility]Emergency Room Work Phone: Start: 04-25-2023 End: 04-25-2023 Office outpatient visit 15 minutes Tiki Sumanth Petznick DO Work Phone: [facility] Comment on above: Left wrist pain (Rolly dylan Dx) Start: 04-18-2023 Bamboo flowsheet Tiki Sumanth Petznick DO Work Phone: [facility] Start: 04-18-2023 Bamboo flowsheet Tiki M Petznick DO Work Phone: [facility] Start: 04-18-2023 End: 04-18-2023 Office outpatient visit 25 minutes Tiki Dockery DO Work Phone: [facility] Comment on above: COPD exacerbation (C MS/HCC) (Primary Dx); Simple chronic bronchitis (CMS/HCC); Type 2 diabetes mellitus with peripheral neuropathy (CMS/HCC); Diastolic dysfunction Start: 04-16-2023 End: 07-23-2023 ambulatory ELBA HENRY [facility] Start: 04-16-2023 End: 07-23-2023 Recurring ELBA HENRY [facility] Start: 04-13-2023 End: 04-13-2023 Emergency department patient visit DO Tiki Lozanoznick Work Phone: [facility]Emer[facility] Work Phone: Start: 04-11-2023 End: 04-11-2023 ambulatory DO Tiki Petznick Work Phone: [facility] Work Phone: Start: 04-11-2023 End: 04-11-2023 Patient encounter procedure DO Tiki Petznick Work Phone: [facility] [address] Work Phone: Start: 04-09-2023 Evaluation and manag ement of inpatient DO Tiki Petznick Work Phone: [facility] Acute Work Phone: Start: 03-29-2023 ambulatory TIKI BOUDREAUXCORINNA Facility:[facility] Start: 03-29-2023 End: 03-29-2023 ambulatory ELBA HENRY Facility:[facility] Start: 03-14-2023 End: 03-14-2023 ambulatory Tammy Fleming Other [employer] Other Start: 03-14-2023 Telephone encounter Tammy Lonnie [facility] Start: 02-19-2023 End: 02-19-2023 ambulatory ELBA HENRY Facility:[facility] Start: 02-19-2023 End: 02-19-2023 Office outpatient visit 15 minutes Elba Henry PA-C Work Phone: Pain Management Comment on above: Lumbar paraspinal mu scle spasm (Primary Dx); Spinal cord stimulator status; Bilateral foot pain Start: 02-04-2023 End: 02-04-2023 Evaluation and management of inpatient Ten Cobbtomeka Facility[facility] Start: 01-30-2023 Registered Recurring DO Fabiola Dockery Work Phone: [facility] Start: 01-08-2023 End: 01-08-2023 ambulatory MD Nasim Guillaume Work Phone: [facility] Work Phone: Start: 01-08-2023 End: 01-08-2023 Patient encounter procedure MD Nasim Guillaume Work Phone: [facility] [place] Work Phone: Start: 01-07-2023 End: 01-07-2023 ambulatory CHELSEY VANN Facility:[facility] Start: 01-01-2023 Evaluation and manag ement of inpatient MD Nasim Guillaume Work Phone: [facility] Work Phone: Start: 12-17-2022 End: 12-17-2022 ambulatory Tammy Lonnie Other [employer] Other Start: 12-17-2022 Office outpatient vi sit 25 minutes Tammy Lonnie [facility] Start: 12-10-2022 End: 12-10-2022 ambulatory TAMMY LONNIE Facility[facility] Start: 12-10-2022 End: 12-10-2022 Patient encounter procedure TAMMY LONNIE [facility] Start: 11-28-2022 End: 11-28-2022 ambulatory Andrew Vazquez Other [facility] [employer] Other Start: 11-28-2022 Telephone encounter Andrew Marinormack [facility] Gastroenterology Start: 11-21-2022 End: 11-21-2022 ambulatory MD Nasim Guillaume Work Phone: [facility] Work Phone: Start: 11-21-2022 End: 11-21-2022 Evaluation and management of inpatient MD Nasim Guillaume Work Phone: [facility] Work Phone: Start: 11-20-2022 End: 11-20-2022 ambulatory ELBA HENRY Facility:[facility] Start: 11-16-2022 Telephone encounter Jordan E G irgis DO Work Phone: Pain Management Comment on above: Pain procedure respo nse and follow up (Placement of Percutaneous SCS lead implantation x 2 and Medtronic Intellis adaptiveStim system implantable pulse generator. //) Start: 11-13-2022 End: 11-13-2022 ambulatory TIKI DOCKERY Facility:[facility] Start: 11-09-2022 Telephone encounter Jordan E G irgis DO Work Phone: Pain Management Comment on above: Procedure (SCS impla nt) Start: 11-08-2022 Telephone encounter Jordan E G irgis DO Work Phone: Ambulatory Surgery Comment on above: Schedule Injection Start: 11-07-2022 End: 11-07-2022 ambulatory JORDAN JORDAN Facility:[facility] Start: 11-07-2022 End: 11-07-2022 Patient encounter procedure Jordan E Jordan DO Work Phone: Pain Management Comment on above: Type 2 diabetes alisha itus with diabetic polyneuropathy, with long-term current use of insulin (HCC) (Primary Dx); Chemotherapy-induced neuropathy (HCC); Bilateral foot pain Start: 10-30-2022 End: 10-30-2022 ambulatory JORDAN ORTEGA Facility:[facility] Start: 10-19-2022 Encounter for other preprocedural examination JORDANTasneem ORTEGA [facility] Start: 10-19-2022 End: 10-19-2022 Admission to establishment Pac Av 2 Work Phone: [facility] Start: 10-19-2022 End: 10-20-2022 ambulatory TIKI DOCKERY Pre Anesthesia Comment on above: Pre-op evaluation (P rimary Dx); Hypertension, unspecified type; Hyperlipidemia, unspecified hyperlipidemia type; Current smoker; Type 2 diabetes mellitus with diabetic polyneuropathy, with long-term current use of insulin (HCC); Stage 3 chronic kidney disease, unspecified whether stage 3a or 3b CKD (HCC); Malignant neoplasm of pancreas, unspecified location of malignancy (HCC); Chronic obstructive pulmonary disease, unspecified COPD type (HCC) Start: 10-19-2022 End: 10-19-2022 Preprocedural examination done [facility] 2 Work Phone: [facility] Work Phone: Start: 09-18-2022 Telephone encounter Jordan Judy De Leon charyhaydee DO Work Phone: Ambulatory Surgery Comment on above: Schedule Injection Start: 09-07-2022 End: 09-07-2022 ambulatory GURU OSORIO Facility:[facility] Start: 09-07-2022 End: 09-07-2022 Patient encounter procedure Guru Osorio PhD Work Phone: Pain Management Comment on above: 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) (Primary Dx); Pain disorder with related psychological factors; Type 2 diabetes mellitus with diabetic polyneuropathy, with long-term current use of insulin (HCC) Start: 08-13-2022 End: 08-13-2022 ambulatory TIKI DOCKERY Facility:[facility] Start: 08-13-2022 End: 08-13-2022 Patient encounter procedure Jordan Judy SantosJordan DO Work Phone: Pain Management Comment on above: Type 2 diabetes alisha itus with diabetic polyneuropathy, with long-term current use of insulin (HCC) (Primary Dx); Chemotherapy-induced neuropathy (HCC); Bilateral foot pain; Bilateral hand pain Start: 06-11-2022 End: 06-11-2022 ambulatory Tammy Fleming Other [employer] Other Start: 06-11-2022 Office outpatient ne w 45 minutes Tammy Fleming [facility] Start: 05-17-2022 End: 05-17-2022 ambulatory MD Nasim Guillaume Work Phone: [facility] Work Phone: Start: 05-17-2022 End: 05-17-2022 Registered Recurring MD Nasim Guillaume Work Phone: [facility] Work Phone: Start: 03-28-2022 Patient encounter procedure Messi Velazquez EMBEDDED FIRMWARE DEVELOPER.LEATHER TACKER Work Phone: [facility] Start: 03-28-2022 Progress Note Alexander Velazquez APRN.LEATHER TACKER Work Phone: [facility] Department Start: 03-26-2022 Patient encounter procedure Messi Velazquez EMBEDDED FIRMWARE DEVELOPER.LEATHER TACKER Work Phone: [facility] Start: 03-26-2022 Progress Note Alexander Velazquez APRN.LEATHER TACKER Work Phone: [facility] Department Start: 03-23-2022 Patient encounter procedure It ri A Darrin Work Phone: [facility] Start: 03-23-2022 Progress Note Itri A Darrin Work Phone: [facility] Start: 03-01-2022 End: 03-01-2022 Patient encounter procedure TIKI DOCKERY [facility] Start: 02-15-2022 End: 02-15-2022 ambulatory MD Nasim Guillaume Work Phone: [facility] Work Phone: Start: 02-15-2022 End: 02-15-2022 Registered Recurring MD Nasim Guillaume [facility]: [facility] Start: 12-12-2021 End: 12-12-2021 ambulatory DO Tiki Petznick Work Phone: [facility] Work Phone: Start: 12-12-2021 End: 12-12-2021 Registered Recurring DO Tiki Petznick Work Phone: [facility] Start: 11-15-2021 End: 11-15-2021 Registered Recurring DO Tiki Petznick Work Phone: [facility] [place] Start: 11-08-2021 End: 11-08-2021 ambulatory Andrew Vazquez Other [employer] Other Start: 11-08-2021 Telephone encounter Andrew Vazquez [facility] [place] Start: 11-01-2021 End: 11-01-2021 Patient encounter procedure DO Tiki Petznick Work Phone: [facility] [place] Start: 10-25-2021 End: 10-25-2021 ambulatory Andrew Vazquez Other [employer] Other Start: 10-25-2021 Office outpatient vi sit 15 minutes Andrew Vazquez [facility] Gastroenterology Start: 09-13-2021 End: 09-13-2021 Patient encounter procedure DO Tiki Petznick Work Phone: [facility] [place] Start: 09-06-2021 End: 09-06-2021 Patient encounter procedure DO Tiki Petznick Work Phone: [facility]Digestive [facility] Start: 08-30-2021 End: 08-30-2021 ambulatory Andrew Vazquez Other [employer] Other Start: 08-30-2021 Office outpatient vi sit 25 minutes Andrew Vazquez [facility] Start: 08-30-2021 End: 08-30-2021 Patient encounter procedure DO Tiki Dockery Work Phone: [facility] [place] Start: 08-14-2021 End: 08-14-2021 ambulatory Kameron Mullen Other [employer] Other Start: 08-14-2021 Telephone encounter Kameronremy Mullen [facility] Start: 08-11-[address] Margaret Delgado Facility:[id number] Start: 07-17-2021 End: 07-17-2021 ambulatory Kameron Paz Other [employer] Other Start: 07-17-2021 Office outpatient vi sit 25 minutes Kameron Paz [facility] Start: 07-06-2021 End: 07-06-2021 ambulatory Kameron Paz Other [employer] Other Start: 07-06-2021 Telephone encounter Kameron Paz [facility] Start: 07-03-2021 End: 07-03-2021 ambulatory Lennie Newell Other [employer] Other Start: 07-03-2021 Telephone encounter Lennie Sow [facility] Start: 06-14-2021 End: 06-14-2021 ambulatory Jose Martin Ramirez Other [employer] Other Start: 06-14-2021 Telephone encounter Jose Martin Ramirez [facility] Start: 05-25-2021 ([facility] C Vac) [facility] Co vid Vaccine Diane Quintero [facility] Start: 05-25-2021 End: 05-25-2021 ambulatory Diane Quintero Other [employer] Other Start: 02-05-2020 Patient encounter procedure Margaret Wiley on [place] Work Phone: Start: 01-06-2020 Patient encounter procedure Margaret Wiley on [place]-Ymjcnlj-Ejxsif[facility] Work Phone: Start: 08-29-2017 End: 08-29-2017 Ambulatory CLARENCE SYED Facility:[facility] Start: 08-15-2017 End: 08-15-2017 Ambulatory CLARENCE SYED Facility:[facility] Start: 08-07-2017 End: 08-08-2017 Ambulatory CLARENCE SYED Facility:[facility] Start: 07-15-2017 [facility] Start: 07-10-2017 End: 07-15-2017 Evaluation and management of inpatient EBONI NOBLE [facility] Start: 07-10-2017 End: 07-11-2017 Ambulatory UNKNOWN PROVIDER Facility[facility] Procedures Date Procedure Procedure Detail Performing Clinician Start: 04-17-2024 XR CHEST 2V Generic External Jun a Provider Start: 04-17-2024 ALL CBC WITH AUTO DIFF Generic External Data Provider Start: 04-17-2024 ECG 12-LEAD Generic External Jun a Provider Start: 02-17-2024 [facility] CBC W/ AUTO DIFF Tiki Dokcery DO Work Phone: Start: 12-10-2023 Hemoglobin glycosylated a1c Tiki huang DO Work Phone: Start: 11-19-2023 Creatinine blood Margaret Delgado MD Work Phone: Start: 11-19-2023 Computed tomography of abdomen and pelvis with contrast DO Tiki Dockery Work Phone: Start: 10-24-2023 Culture bacterial blood aerobic w/id isolates Tiki Dockery DO Work Phone: Start: 10-24-2023 RESULT Tiki Luis O Work Phone: Start: 08-19-2023 SARS-CoV-2, Influenza & RSV (PCR) MD Nasim Guillaume Work Phone: Start: 08-19-2023 Streptococcus pyogenes antigen assay MD Nasim Guillaume Work Phone: Start: 08-19-2023 Urine culture MD Nasim Guillaume Work Phone: Start: 08-19-2023 Plain chest X-ray MD Nasim Guillaume Work Phone: Start: 08-15-2023 Ultrasonography of limb MD Nasim stanley Work Phone: Start: 05-24-2023 Ultrasonography of limb DO Tiki Lemus ick Work Phone: Start: 05-02-2023 Plain chest X-ray DO Tiki Lemusick Work Phone: Start: 05-01-2023 Plain chest X-ray MD Nasim Guillaume Work Phone: Start: 05-01-2023 SARS-CoV-2, Influenza & RSV (PCR) MD Nasim Guillaume Work Phone: Start: 05-01-2023 Urine culture DO Tiki Dockery Work Phone: Start: 04-13-2023 SARS-CoV-2, Influenza & RSV (PCR) DO Tiki Dockery Work Phone: Start: 04-13-2023 Plain chest X-ray MD Nasim Guillaume Work Phone: Start: 04-11-2023 CT of abdomen and pelvis without contrast DO Tiki Dockery Work Phone: Start: 11-19-2022 Computed tomography of abdomen and pelvis with contrast MD Nasim Guillaume Work Phone: Start: 11-19-2022 CT of thorax with contrast MD Nasim stephenson Work Phone: Start: 05-15-2022 Computed tomography of abdomen and pelvis with contrast MD Nasim Guillaume Work Phone: Start: 05-15-2022 CT of thorax with contrast MD Nasim stephenson Work Phone: Start: 09-07-2022 Bacteria identified in Urine by Culture DO Tiki Petznick Work Phone: Start: 11-15-2021 Urine culture MD Nasim Guillaume Work Phone: Start: 11-14-2021 Computed tomography of abdomen and pelvis with contrast DO Tiki Petznick Work Phone: Start: 11-14-2021 CT of thorax with contrast DO Tiki Pe tznick Work Phone: Start: 09-13-2021 Pulse volume recorder pneumoplethysmography DO Tiki Petznick Work Phone: Start: 09-06-2021 DH Fibroscan (Not Applicable) DO Tiki Petznick Work Phone: Start: 08-09-2021 Positron emission tomography with computed tomography DO Tiki Petznick Work Phone: Start: 07-07-2021 Colonoscopy Tiki Petznick DO Work Phone: Start: 05-04-2021 Computed tomography of abdomen and pelvis with contrast DO Tiki Petznick Work Phone: Start: 05-04-2021 CT of thorax with contrast DO Tiki Pe tznick Work Phone: Start: 01-31-2021 Computed tomography of abdomen and pelvis with contrast DO Tiki Petznick Work Phone: Start: 01-31-2021 CT of thorax with contrast DO Tiki Pe tznick Work Phone: Start: 10-17-2020 Computed tomography of abdomen and pelvis with contrast DO Tiki Petznick Work Phone: Start: 10-17-2020 CT of thorax with contrast DO Tiki Pe tznick Work Phone: Start: 06-15-2020 Computed tomography of abdomen and pelvis with contrast DO Tiki Petznick Work Phone: Start: 06-15-2020 CT of thorax with contrast DO Tiki Pe tznick Work Phone: Start: 01-06-2020 Assay of lipase Destiney Salas Start: 01-06-2020 Comprehensive metabolic 2000 panel Destiney Salas Start: 01-06-2020 Ct abdomen & pelvis w/contrast material Destiney Salas Start: 01-06-2020 Endoscopy Ultrasound Upper Destiney Aroraw Start: 01-06-2020 ERCP Destiney Aroraw Start: 01-06-2020 Immunoassay tumor antigen quantitative ca 19-9 Destiney Salas Start: 11-19-2019 Endoscopy Ultrasound Upper Tiki Petzn ick Start: 11-12-2019 ERCP Tiki Petznick Start: 07-11-2017 ADMIT TO FLOOR EBONI NOBLE Start: 07-11-2017 Antibody hiv-1&hiv-2 single result EBONI NOBLE Start: 07-11-2017 Basic metabolic panel calcium total EBONI NOBLE Start: 07-11-2017 BED REQUEST FOR THE FLOOR EBONI NOBLE Start: 07-11-2017 Blood count complete auto&auto difrntl wbc EBONI NOBLE Start: 07-11-2017 C-reactive protein EBONI NOBLE Start: 07-11-2017 CHANGE ADMIT ORDER DETAILS EBONI Suárez Start: 07-11-2017 COMMUNICATION (OTHER) EBONI NOBLE Start: 07-11-2017 [id number] EBONI NOBLE Start: 07-11-2017 FULL CODE EBONI NOBLE Start: 07-11-2017 Glucose blood reagent strip EBONI WINTER Start: 07-11-2017 Hemoglobin glycosylated a1c EBONI WINTER Start: 07-11-2017 Hepatic function panel EBONI NOBLE Start: 07-11-2017 Hepatitis c antibody EBONI NOBLE Start: 07-11-2017 Iadna hepatitis c quant & reverse lead nuclear medicine technologist EBONI NOBLE Start: 07-11-2017 INFECTIOUS DISEASE SERVICE REQUEST EBONI NOBLE Start: 07-11-2017 INSERT PERIPHERAL IV ACCESS EBONI WINTER Start: 07-11-2017 IP INFECTIOUS DISEASE CONSULT EBONI ALY Start: 07-11-2017 IP PODIATRY CONSULT EBONI NOBLE Start: 07-11-2017 IP SURGERY VASCULAR CONSULT EBONI WINTER Start: 07-11-2017 IP WOUND NURSE CONSULT EBONI NOBLE Start: 07-11-2017 LIVER SERVICE REQUEST EBONI NOBLE Start: 07-11-2017 MEASURE INTAKE AND OUTPUT EBONI NOBLE Start: 07-11-2017 MEASURE VITAL SIGNS WITH PULSE OXIMETRY EBONI NOBLE Start: 07-11-2017 MEASURE WEIGHT EBONI NOBLE Start: 07-11-2017 NOTIFY MD EBONI NOBLE Start: 07-11-2017 PODIATRY SERVICE REQUEST EBONI NOBLE Start: 07-11-2017 Radex toe minimum 2 views EBONI NOBLE Start: 07-11-2017 RECORD HEIGHT EBONI NOBLE Start: 07-11-2017 Sedimentation rate rbc non-automated EBONI NOBLE Start: 07-11-2017 UP AD LOLITA EBONI NOBLE Start: 07-11-2017 UPDATE ATTENDING PHYSICIAN EBONI Suárez Start: 07-11-2017 UPDATE TREATMENT TEAM RESIDENT EBONI STEARNS Start: 03-11-2015 Amputated toe (finding) TIKI SARKIS History of No history of surgery Margaret Crawford Implantable spinal c ord electrical stimulation security system technician (physical object) TAMMY FLEMING Urine culture DO Tiki ortiz Work Phone: Plan of Treatment Date Care Activity Detail Author Start: 03-18-2032 Urine microalbumin profile DTaP,Tdap,Td Vaccine (2 - Td or Tdap) [facility] Start: 07-08-2031 Screening for malignant neoplasm of colon [facility] Start: 01-22-2025 Urine screening for protein Diabetes: Urine Protein Screening [facility] Start: 10-07-2024 Urine screening for protein Diabetes: Urine Protein Screening [facility] Start: 05-29-2024 Screening for malignant neoplasm of colon FIT-DNA [facility] Start: 04-21-2024 End: 04-21-2024 Professional / ancillary services management 04/21/2024 9:30 AM EST Ancillary Procedure [facility] [address] [place] [id number] [facility] MR Start: 04-13-2024 End: 04-13-2024 Patient encounter procedure [facility] Comment on above: Arrived Start: 04-08-2024 End: 04-08-2024 Patient encounter procedure 04/08/2024 9:15 AM EST Office Visit [facility] [address] [place] [address] Jonathan Pride, DPSumanth [address] [place] [address] [facility] Start: 03-31-2024 End: 03-31-2025 MR Ankle - right WO and W contrast IV MR ankle right w and wo IV contrast Imaging Routine Cellulitis of right heel Ulcer of heel, right, with fat layer exposed (CMS/HCC) Expected: 03/31/2024, Expires: 03/31/2025 [facility] Work Phone: Comment on above: Expected: 03/31/2024, Expires: Start: 03-26-2024 End: 03-26-2024 Patient encounter procedure 03/26/2024 9:00 AM EST Office Visit [facility] [address] [place] [id number] Hernandez Arambula DPM [address] [place] [address] [facility] Start: 03-12-2024 End: 03-12-2024 Patient encounter procedure 03/12/2024 10:15 AM EST Office Visit [facility] [address] [place] [id number] Tiki Dockery, [address] [place] [address] [facility] Start: 03-11-2024 Hemoglobin A1c measurement Diabetes: Hemoglobin A1C [facility] [facility] Start: 02-20-2024 BP Controlled (<130/80) BP Controlled (<130/80) [facility] Start: 02-14-2024 End: 02-13-2025 Amylase [Enzymatic activity/volume] in Serum or Plasma Amylase Lab Routine Diarrhea, unspecified type Expected: 02/14/2024 (Approximate), Expires: 02/13/2025 [facility] Comment on above: Expected: 02/14/2024 (Approximate), Expi res: 02/13/2025 Start: 02-14-2024 End: 02-13-2025 CBC W Auto Differential panel - Blood CBC and differential Lab Routine Diarrhea, unspecified type Expected: 02/14/2024 (Approximate), Expires: 02/13/2025 [facility] Comment on above: Expected: 02/14/2024 (Approximate), Expi res: 02/13/2025 Start: 02-14-2024 End: 02-13-2025 Clostridioides difficile toxin A+B tcdA+tcdB genes [Presence] in Stool by ANN with probe detection Clostridium difficile,EIA Microbiology Routine Diarrhea, unspecified type Expected: 02/14/2024 (Approximate), Expires: 02/13/2025 [facility] Comment on above: Expected: 02/14/2024 (Approximate), Expi res: 02/13/2025 Start: 02-14-2024 End: 02-13-2025 Comprehensive metabolic 2000 panel - Serum or Plasma Comprehensive metabolic panel Lab Routine Diarrhea, unspecified type Expected: 02/14/2024 (Approximate), Expires: 02/13/2025 [facility] Work Phone: Comment on above: Expected: 02/14/2024 (Approximate), Expi res: 02/13/2025 Start: 02-14-2024 End: 02-13-2025 Fecal leukocytes Fecal leukocytes Microbiology Routine Diarrhea, unspecified type Expected: 02/14/2024 (Approximate), Expires: 02/13/2025 [facility] Comment on above: Expected: 02/14/2024 (Approximate), Expi res: 02/13/2025 Start: 02-14-2024 End: 02-13-2025 Lipase [Enzymatic activity/volume] in Serum or Plasma Lipase Lab Routine Diarrhea, unspecified type Expected: 02/14/2024 (Approximate), Expires: 02/13/2025 [facility] Comment on above: Expected: 02/14/2024 (Approximate), Expi res: 02/13/2025 Start: 02-14-2024 End: 02-13-2025 Stool culture Stool culture Microbiology Routine Diarrhea, unspecified type Expected: 02/14/2024 (Approximate), Expires: 02/13/2025 [facility] Comment on above: Expected: 02/14/2024 (Approximate), Expi res: 02/13/2025 Start: 02-14-2024 End: 02-14-2024 Patient encounter procedure 02/14/2024 8:30 AM EST Office Visit [facility] [address] [place] [id number] Tiki Dockery, DO [address] [place] [address] Arrived [facility] [address] Comment on above: Arrived Start: 12-10-2023 Hemoglobin A1c measurement Diabetes: Hemoglobin A1C [facility] Start: 12-10-2023 End: 12-10-2023 Patient encounter procedure 12/10/2023 10:30 AM EDT Office Visit [facility] [address] [place] [address] Tiki Dockery, DO [address] [place] [address] [facility] Start: 11-20-2023 Complete blood count Hemoglobin/Hematocrit [facility] Start: 11-20-2023 Creatinine measurement Serum Creatinine [facility] Start: 11-10-2023 Influenza vaccination Influenza Vaccine (#1) [facility] Start: 10-20-2023 SERUM CREATININE SERUM CREATININE [facility] Start: 09-18-2023 [facility] Start: 08-23-2023 Hemoglobin A1c [facility] Start: 08-19-2023 Bacteria identified in Urine by Culture [facility] Start: 07-16-2023 PROSTATE CANCER SCREENING DISCUSSION PROSTATE CANCER SCREENING DISCUSSION [facility] Start: 07-16-2023 Prostate specific antigen measurement Prostate Cancer Screening Discussion [facility] Start: 07-06-2023 Medicare Annual Wellness (AWV) Medicare Annual Wellness (AWV) [facility] Start: 06-24-2023 End: 06-24-2023 Patient encounter procedure 06/24/2023 11:30 AM EDT Office Visit [facility] [address] [place] [address] Tiki Dockery, DO [address] [place] [address] [facility] [address] Start: 06-22-2023 Glaucoma screening Diabetes: Retinopathy Screening [facility] Start: 05-23-2023 Hemoglobin A1c measurement Diabetes: Hemoglobin A1C [facility] Start: 05-22-2023 Patient referral [facility] Work Phone: Start: 05-20-2023 End: 05-20-2023 Patient encounter procedure 05/20/2023 10:00 AM EDT [facility] [address] [place] [address] Hernandez Arambula DPM [address] [place] [address] [facility] Start: 05-02-2023 Plain chest X-ray XR chest 2V* [facility] Start: 05-02-2023 XR Chest 2 Views [facility] Start: 05-01-2023 Bacteria identified in Urine by Culture [facility] Start: 05-01-2023 Urine culture Urine Culture [facility] Start: 04-25-2023 End: 04-25-2024 XR Wrist - left 3 Views [facility] Work Phone: Comment on above: Expected: 04/25/2023 (Approximate), Expi res: 04/25/2024 Start: 04-21-2023 Hemoglobin A1c measurement HbA1C [facility] Start: 04-21-2023 Hemoglobin A1c/Hemoglobin.total in Blood HBA1C [facility] Start: 04-18-2023 End: 04-18-2023 Patient encounter procedure 04/18/2023 11:15 AM EST Office Visit [facility] [address] [place] [phone] Tiki Dockery, DO [address] [place] [address] Arrived [facility] [address] Comment on above: Arrived Start: 04-13-2023 Plain chest X-ray XR chest 2V* [facility] Start: 04-13-2023 XR Chest 2 Views [facility] Start: 03-11-2023 Advance Directive Discussion Advance Directive Discussion [facility] Start: 01-08-2023 Pulse volume recorder pneumoplethysmography US arterial pvr rest LE [facility] Start: 01-08-2023 [facility] Start: 01-04-2023 Hemoglobin A1c/Hemoglobin.total in Blood HBA1C [facility] Start: 11-09-2022 Covid-19 Vaccine () Covid-19 Vaccine () [facility] Start: 11-09-2022 Influenza vaccination [facility] Start: 06-23-2022 COVID-19 VACCINE (5 - Moderna series) COVID-19 VACCINE (5 - Moderna series) [facility] Start: 03-11-2022 ADVANCE DIRECTIVE DISCUSSION ADVANCE DIRECTIVE DISCUSSION [facility] Start: 03-11-2022 DEPRESSION ASSESSMENT DEPRESSION ASSESSMENT [facility] Start: 02-14-2022 Cancer Ag 19-9 [Units/volume] in Serum or Plasma [facility] Start: 12-12-2021 [facility] Start: 11-15-2021 [facility] Start: 09-06-2021 [facility] Work Phone: Start: 07-20-2021 COVID-19 VACCINE (4 - Booster for Moderna series) COVID-19 VACCINE (4 - Booster for Moderna series) [facility] Start: 09-21-2020 [facility] Start: 09-20-2020 [facility] Start: 09-09-2020 [facility] Start: 08-30-2020 [facility] Start: 07-13-2020 [facility] Start: 07-07-2020 [facility] Start: 06-30-2020 End: 06-30-2020 [facility] Start: 06-30-2020 [facility] Start: 06-28-2020 [facility] Start: 06-22-2020 End: 06-22-2020 [facility] Start: 05-11-2020 [facility] Start: 05-10-2020 [facility] Start: 04-28-2020 End: 04-28-2020 [facility] Start: 04-26-2020 [facility] Start: 2015 RSV Vaccine (1 - 1-dose 60+ series) RSV Vaccine (1 - 1-dose 60+ series) [facility] Start: 05-29-2014 Pneumococcal Vaccine: 65+ (2 - PCV) Pneumococcal Vaccine: 65+ (2 - PCV) [facility] Start: 05-29-2014 Pneumococcal Vaccine: 65+ (2 of 2 - PCV) Pneumococcal Vaccine: 65+ (2 of 2 - PCV) [facility] Start: 09-13-2010 PROSTATE CANCER SCREENING DISCUSSION PROSTATE CANCER SCREENING DISCUSSION [facility] Start: 09-13-2010 Prostate specific antigen measurement Prostate Cancer Screening Discussion [facility] Start: 09-13-2005 SHINGRIX VACCINE (1 of 2) SHINGRIX VACCINE (1 of 2) [facility] Start: 05-03-2005 Complete blood count Hemoglobin/Hematocrit [facility] Start: 05-03-2005 HEMOGLOBIN/HEMATOCRIT HEMOGLOBIN/HEMATOCRIT [facility] Start: 09-13-2000 COLOGUARD (FIT-DNA) COLOGUARD (FIT-DNA) [facility] Start: 09-13-2000 Colonoscopy COLONOSCOPY [facility] Start: 09-13-2000 COLORECTAL CANCER SCREENING COLORECTAL CANCER SCREENING [facility] Start: 09-13-[address] COLONOGRAPHY [facility] Start: 09-13-2000 FECAL OCCULT BLOOD FECAL OCCULT BLOOD [facility] Start: 09-13-2000 Screening for malignant neoplasm of colon [facility] Start: 09-13-2000 SIGMOIDOSCOPY SIGMOIDOSCOPY [facility] Start: 09-13-1985 Zoledronic acid therapy ALPHA-1 ANTITRYPSIN DEFICIENCY SCREENING [facility] Start: 09-13-1974 Urine microalbumin profile DTAP,TDAP,TD (1 - Tdap) [facility] Start: 09-13-1973 ANNUAL PCP TEAM CHRONIC DISEASE VISIT ANNUAL PCP TEAM CHRONIC DISEASE VISIT [facility] Start: 09-13-1973 BP CONTROLLED (<130/80) BP CONTROLLED (<130/80) [facility] Start: 09-13-1973 Hepatitis B surface antibody level LDL CHOLESTEROL [facility] Start: 09-13-1973 SPIROMETRY SPIROMETRY [facility] Start: 09-13-1965 3 comp foot exam completed [facility] Start: 09-13-1965 Diabetic foot examination Diabetic Foot Exam [facility] Start: 09-13-1965 Glaucoma screening Dilated Retinal Exam [facility] Start: 09-13-1965 Hepatitis B screening URINE ALBUMIN:CREATININE RATIO [facility] Start: 09-13-1965 Hepatitis C antibody, confirmatory test DILATED RETINAL EXAM [facility] Start: 09-13-1961 PNEUMOCOCCAL: 65+ (1 - PCV) PNEUMOCOCCAL: 65+ (1 - PCV) [facility] Start: 1955 ABDOMINAL AORTIC ANEURYSM SCREENING ABDOMINAL AORTIC ANEURYSM SCREENING [facility] Start: 1955 Abdominal aortic aneurysm screening Abdominal Aortic Aneurysm Screening [facility] Start: 1955 Screening for malignant neoplasm of colon [facility] Albumin/Globulin ratio [facility] Amylase [Enzymatic activity/volume] in Serum or Plasma [facility] Work Phone: Amylase [Enzymatic activity/volume] in Serum or Plasma [facility] Anion gap measurement [facility] aPTT in Platelet poo r plasma by Coagulation assay [facility] Basophils [#/volume] in Blood by Automated count [facility] Basophils/100 leukoc ytes in Blood by Automated count [facility] Bilirubin measurement, urine [facility] Work Phone: Cancer Ag 19-9 [Unit s/volume] in Serum or Plasma [facility] Work Phone: Cancer Ag 19-9 [Unit s/volume] in Serum or Plasma [facility] Cancer Ag 19-9 [Unit s/volume] in Serum or Plasma [facility] Cancer Ag 19-9 [Unit s/volume] in Serum or Plasma [facility] Cancer Ag 19-9 [Unit s/volume] in Serum or Plasma [facility] Cancer Ag 19-9 [Unit s/volume] in Serum or Plasma [facility] Cancer Ag 19-9 [Unit s/volume] in Serum or Plasma [facility] Cancer Ag 19-9 [Unit s/volume] in Serum or Plasma [facility] Cancer Ag 19-9 [Unit s/volume] in Serum or Plasma [facility] Cancer Ag 19-9 [Unit s/volume] in Serum or Plasma [facility] Color of Urine [facility] Work Phone: Comprehensive metabo lic 1999 panel - Serum or Plasma [facility] Work Phone: Comprehensive metabo lic 1999 panel - Serum or Plasma [facility] Comprehensive metabo lic 1999 panel - Serum or Plasma [facility] Comprehensive metabo lic 1999 panel - Serum or Plasma [facility] Comprehensive metabo lic 1999 panel - Serum or Plasma [facility] Comprehensive metabo lic 1999 panel - Serum or Plasma [facility] Comprehensive metabo lic 1999 panel - Serum or Plasma [facility] Comprehensive metabo lic 1999 panel - Serum or Plasma [facility] Comprehensive metabo lic 1999 panel - Serum or Plasma [facility] CT Abdomen and Pelvi s W contrast IV [facility] Work Phone: CT Abdomen and Pelvi s W contrast IV [facility] CT Abdomen and Pelvi s W contrast IV [facility] CT Abdomen and Pelvi s W contrast IV [facility] CT Abdomen and Pelvi s W contrast IV [facility] CT Abdomen and Pelvi s W contrast IV [facility] CT Chest W contrast IV [facility] Work Phone: CT Chest W contrast IV [facility] CT Chest W contrast IV [facility] CT Chest W contrast IV [facility] CT Chest W contrast IV [facility] Detection of hemoglobin [facility] Work Phone: Eosinophils/100 leuk ocytes in Blood by Automated count [facility] Erythrocyte distribu tion width [Ratio] by Automated count [facility] Erythrocytes [#/volu me] in Blood [facility] Erythropoietin (EPO) [Units/volume] in Serum or Plasma [facility] Globulin [Mass/volum e] in Serum [facility] Glucose [Mass/volume ] in Urine by Test strip [facility] Work Phone: Hematocrit [Volume F raction] of Blood [facility] Hemoglobin [Mass/vol ume] in Blood [facility] INR in Platelet poor plasma by Coagulation assay [facility] Leukocytes [#/volume ] corrected for nucleated erythrocytes in Blood by Automated coun [facility] Leukocytes [#/volume] in Blood [facility] Lipase measurement [facility] Work Phone: Lipase measurement [facility] Lymphocytes [#/volum e] in Blood by Automated count [facility] Lymphocytes/100 leuk ocytes in Blood by Automated count [facility] Magnesium measurement [facility] Work Phone: Magnesium measurement [facility] MCH [Entitic mass] b y Automated count [facility] MCHC [Mass/volume] b y Automated count [facility] MCV [Entitic volume] by Automated count [facility] Measurement of keton es in urine using dipstick [facility] Work Phone: Monocytes [#/volume] in Blood by Automated count [facility] Monocytes/100 leukoc ytes in Blood by Automated count [facility] Neutrophils [#/volum e] in Blood by Automated count [facility] Neutrophils/100 leuk ocytes in Blood by Automated count [facility] Nucleated erythrocyt es [Presence] in Blood by Automated count [facility] Patient Education [facility] Work Phone: Patient referral [facility] Work Phone: Platelet mean volume [Entitic volume] in Blood by Automated count [facility] Platelets [#/volume] in Blood [facility] Protein measurement, urine [facility] Work Phone: Prothrombin time (PT) [facility] Renal function 1999 panel - Serum or Plasma [facility] Renal function 1999 panel - Serum or Plasma [facility] Urinalysis, specific gravity measurement [facility] Work Phone: Urine dipstick for nitrite [facility] Work Phone: Urine dipstick for s pecific gravity [facility] Work Phone: Urine pH test [facility] Work Phone: Urobilinogen concent ration, test strip measurement [facility] Work Phone: [facility] Immunizations Immunization Date Immunization Notes Care Provider Nancy esparza 01-14-2024 influenza virus vaccine, unspecified formulation Tiki Petznick DO Work Phone: [facility] 01-11-2024 Seasonal trivalent influenza vaccine, adjuvanted, preservative free Tiki Petznick DO Work Phone: [facility] 03-22-2023 Pneumococcal Conjuga te PCV 20 Tiki Petznick DO Work Phone: [facility] 02-08-2023 Influenza, injectabl e, Madin Steph Canine Kidney, preservative free, quadrivalent Tiki Petznick DO Work Phone: [facility] 02-08-2023 influenza virus vaccine, unspecified formulation Margaret Delgado MD Work Phone: [facility] 03-18-2022 tetanus toxoid, redu ken diphtheria toxoid, and acellular pertussis vaccine, adsorbed TAMMY LONNIE [facility] 02-22-2022 Moderna Bivalent Booster Vaccination Tiki Petznick DO Work Phone: [facility] 02-20-2022 Influenza, injectabl e, Madin Steph Canine Kidney, preservative free, quadrivalent Tiki Petznick DO Work Phone: [facility] 05-25-2021 COVID-19 Moderna Diane Quintero Other [facility] 12-26-2020 influenza, injectabl e, quadrivalent, contains preservative Tiki Petznick DO Work Phone: [facility] 10-12-2020 COVID-19 mRNA-1273 (Moderna) DO Tiki Petznick Work Phone: [facility] 09-12-2020 COVID-19 mRNA-1273 (Moderna) DO Tiki Petznick Work Phone: [facility] 04-11-2016 tetanus toxoid, redu ken diphtheria toxoid, and acellular pertussis vaccine, adsorbed Tiki Petznick DO Work Phone: [facility] 01-15-2016 influenza, seasonal, injectable, preservative free Tiki Petznick DO Work Phone: [facility] 05-29-2013 pneumococcal polysaccharide vaccine, 23 valent Tiki Petznick DO Work Phone: [facility] 05-12-2004 hepatitis B vaccine, adult dosage Pacc 2 Work Phone: [facility] 10-30-2002 hepatitis A vaccine, unspecified formulation Pac 2 Work Phone: [facility] Work Phone: 10-30-2002 hepatitis B vaccine, adult dosage Pacc 2 Work Phone: [facility] Work Phone: 03-19-2002 hepatitis A vaccine, unspecified formulation Pacc 2 Work Phone: [facility] Work Phone: 03-19-2002 hepatitis B vaccine, adult dosage Pacc 2 Work Phone: [facility] Work Phone: 01-30-2002 hepatitis B vaccine, adult dosage Pacc 2 Work Phone: [facility] NEGATED: Highlighted row has not occurred!01-01-2020 influenza, seasonal, injectable TIKI PETZNICK [facility] Payers Date Payer Category Payer Unknown [id number] 2023 Medicare (Managed Care) [facility]LY [facility] [id number] 2023 Unknown [id number] 2022 Unknown [id number] 2022 Self-pay [id number] 2022 Medicare [id number]. [id number]. [id number] 2017 Unknown 1959 Medicaid [id number] 1955 Unknown [id number] 2.16.840.1.772648.3.579.2. 356 1955 Unknown [id number] 2.16.840.1.116117.3.579.2. 727 1955 Unknown [id number] 2.16.840.1.425123.3.579.2. 727 1955 Unknown [id number] 2.16.840.1.903764.3.579.2. 727 1955 Unknown [id number] 2.16.840.1.255699.3.579.2. 727 1955 Unknown [id number] 2.16.840.1.624516.3.579.2. 727 1955 Unknown [id number] 2.16.840.1.218584.3.579.2. 727 1955 Unknown [id number] 2.16.840.1.468950.3.579.2. 1955 Unknown [id number] 2.16.840.1.380633.3.579.2. 1955 Unknown [id number] 2.16.840.1.879649.3.579.2. 1955 Unknown [id number] 2.16.840.1.072555.3.579.2. 1955 Unknown [id number] 2.16.840.1.471822.3.579.2 1955 Unknown [id number] 2.16.840.1.924195.3.579.2 1955 Unknown [id number] 2.16.840.1.690337.3.579.2 1955 Unknown [id number] 2.16.840.1.098377.3.579.2 1955 Unknown [id number] 2.16.840.1.819414.3.579.2 1955 Unknown [id number] 2.16.840.1.206635.3.579.2 1955 Unknown [id number] 2.16.840.1.861961.3.579.2 1955 Unknown [id number] 2.16.840.1.688851.3.579.2. 1955 Unknown [id number] 2.16.840.1.896188.3.579.2. 1955 Unknown [id number] 2.16.840.1.516052.3.579.2. 1955 Unknown [id number] 2.16.840.1.987069.3.579.26 Unknown [id number] 2.16840.1.160697.3.579.2. 1955 Unknown [id number] 2.16840.1.193940.3.579.2. 1955 Unknown [id number] 2.16840.1.322889.3.579.2. 1955 Unknown [id number] 2.16840.1.899884.3.579.2. 1955 Unknown [id number] 2.840.1.618628.3.579.2. 1955 Unknown [id number] 2.840.1.392795.3.579.2 1955 Unknown [id number] 2.840.1.972439.3.579.2 1955 Unknown [id number] 2.840.1.563215.3.579.2. 1955 Unknown [id number] 2.840.1.306752.3.579.2 1955 Unknown [id number] 2.840.1.787677.3.579.2 1955 Unknown [id number] 2.840.1.614278.3.579.2. 1955 Unknown [id number] 2.840.1.311350.3.579.2. 1955 Unknown [id number] 2.16840.1.707804.3.579.2. 1258 1955 Unknown [id number] 2.840.1.160344.3.579.2. 1258 1955 Unknown [id number] 2.840.1.847175.3.579.2. 1258 1955 Unknown [id number] 2.0.1.289403.3.579.2. 9 1955 Unknown [id number] 2.0.1.226175.3.579.2. 1258 1955 Unknown [id number] 2.840.1.076328.3.579.2. 1258 1955 Unknown [id number] 2.0.1.950539.3.579.2. 1258 1955 Unknown [id number] 2.840.1.781672.3.579.2. 1258 1955 Unknown [id number] 2.0.1.306862.3.579.2. 1258 1955 Unknown [id number] 2.0.1.675009.3.579.2. 1258 1955 Unknown [id number] .0.1.400937.3.579.2. 1258 1955 Unknown [id number] .0.1.822353.3.579.2. 727 1955 Unknown [id number] .0.1.627802.3.579.2. 727 1955 Unknown [id number] 04.26.830.1.237203.3.579.2. 727 Medicare [id number] 04.26.830.1.789411.19 Medicare [id number] 840.1.125928.19 Medicare [facility] [id number] Private Health Insurance [facility] [id number] Unknown MMO [id number] Unknown [id number] 2.16.840.1.843126.3.579.2. 531 Unknown [id number] 2.16.840.1.534407.3.579.2. 531 Unknown [id number] 2.16.840.1.521423.3.579.2. 531 Unknown [id number] 2.16.840.1.081028.3.579.2. 531 Unknown [id number] 2.16.840.1.968332.3.579.2. 531 Unknown [id number] 2.16.840.1.289530.3.579.2. 531 Unknown [id number] 2.16.840.1.658393.3.579.2. 531 Social History Date Type Detail Facility Assertion Tobacco smoking consumption unknown (finding) [facility] Work Phone: Start: 08-13-2022 End: 06-21-2023 Sex Assigned At [facility] Start: 08-11-2021 End: 11-21-2023 Tobacco smoking status NHIS Smoker (finding) [facility] Start: 1955 Sex Assigned At Male F [facility] Start: 01-12-2020 End: 01-06-2024 Tobacco smoking status Heavy tobacco smoker (finding) [facility] Tobacco smoking stat us ALIS Tobacco smoking consumption unknown [facility] Start: 1955 Sex Assigned At Not on file [facility] Start: 03-11-1965 End: 09-09-2023 Tobacco smoking status ALIS Smokes tobacco daily [facility] Start: 03-11-1965 History of tobacco use Cigarette Smo ker [facility] Start: 08-13-2022 End: 06-21-2023 Cigarettes smoked current (pack per day) - Reported 0.5 [facility] Start: 08-13-2022 Alcohol intake Current drinke r of alcohol (finding) [facility] Start: 10-19-2022 End: 09-09-2023 Tobacco use and exposure Smokeless tobacco [facility] [place] Start: 10-19-2022 End: 05-14-2023 Alcohol intake Ex-drinker (finding) [facility] [place] Start: 04-01-2023 End: 04-13-2024 Alcohol intake Lifetime non-drinker (finding) [facility] Do you belong to any clubs or organizations such as synagogue groups, unions, fraternal or athletic groups, or school groups? No [facility] Are you now , , , , never or living with a partner? [facility] How often to you hav e a drink containing alcohol? Never [facility] How many standard drinks containing alcohol do you have on a typical day? Patient does not drink [facility] How hard is it for y ou to pay for the very basics like food, housing, medical care, and heating Somewhat hard [facility] Do you feel stress - tense, restless, nervous, or anxious, or unable to sleep at night because your mind is troubled all the time - these days [OSQ] Not at all [facility] (I/We) worried wheth er (my/our) food would run out before (I/we) got money to buy more. Never true [facility] Start: 2022 Tobacco Comment Smokes 1-6 cig s per day [facility] Do you feel stress - tense, restless, nervous, or anxious, or unable to sleep at night because your mind is troubled all the time - these days [OSQ] Only a little [facility] In the past 12 month s, was there a time when you were not able to pay the mortgage or rent on time? Yes [facility] Start: 04-29-2024 Sex Male (finding) [facility] NEGATED: Highlighted row - - [facility] Work Phone: Medical Equipment Procedure Code Equipment Code Equipment Origin al Text Equipment Identifier Dates Insertion of central venous catheter (CVC) with subcutaneous port for chemotherapy Vascular port/catheter [id number] FDA Start: 04-06-2020 ERCP Unknown 11/09 Non Biological Unknown FDA Start: 11-10-2019 Lens Iol 1pc [place] Iq [id number] - [id number] Start: 11-04-2009 Lens Iol 1pc [place] Iq [id number] - [id number] Start: 11-11-2009 Kit Injex Silico ne .157mm Accessory Bumpy Flexible Compression-Fit Carbon - [id number] Start: 10-30-2022 Comment on above: Description: This is a kit randle from [employer] and includes [id number], [id number] and [id number] for $200.00. Nrstm Imp Intlls Snsr Mri - [id number] Start: 11-13-2022 Lead Vectris 5mm 60cm Neurostimulator 1x8 Electrode Compact Mri - [id number] Start: 11-13-2022 Envelope Tyrx Me dium Polyarylate Minocycline Rifampin 2.7x2.5in Absorbable - [id number] Start: 11-13-2022 ERCP Unknown 11/09 Non Biological Unknown FDA Start: 11-10-2019 [id number] Start: 07-17-2022 Lead 5mm Neurostimulator 1x8 Electrode Kit - [id number] Start: 10-30-2022 Comment on above: Description: This is a kit randle from [employer] and includes [id number] and [id number] for $200.00. Lead Vectris 5mm 60cm Neurostimulator 1x8 Electrode Compact Mri - [id number] Start: 11-13-2022 ERCP Unknown 11/09 Non Biological Unknown FDA Start: 11-10-2019 ERCP Unknown 11/09 Non Biological Unknown FDA Start: 11-10-2019 ERCP Unknown 11/09 Non Biological Unknown FDA Start: 11-10-2019 ERCP Unknown 11/09 Non Biological Unknown FDA Start: 11-10-2019 ERCP Unknown 11/09 Non Biological Unknown FDA Start: 11-10-2019 ERCP Unknown 11/09 Non Biological Unknown FDA Start: 11-10-2019 ERCP Unknown 11/09 Non Biological Unknown FDA Start: 11-10-2019 ERCP Unknown 11/09 Non Biological Unknown FDA Start: 11-10-2019 ERCP Unknown 11/09 Non Biological Unknown FDA Start: 11-10-2019 ERCP Unknown 11/09 Non Biological Unknown FDA Start: 11-10-2019 ERCP Unknown 11/09 Non Biological Unknown FDA Start: 11-10-2019 ERCP Unknown 11/09 Non Biological Unknown FDA Start: 11-10-2019 ERCP Unknown 11/09 Non Biological Unknown FDA Start: 11-10-2019 ERCP Unknown 11/09 Non Biological Unknown FDA Start: 11-10-2019 ERCP Unknown 11/09 Non Biological Unknown FDA Start: 11-10-2019 ERCP Unknown 11/09 Non Biological Unknown FDA Start: 11-10-2019 ERCP Unknown 11/09 Non Biological Unknown FDA Start: 11-10-2019 ERCP Unknown 11/09 Non Biological Unknown FDA Start: 11-10-2019 ERCP Unknown 11/09 Non Biological Unknown FDA Start: 11-10-2019 ERCP Unknown 11/09 Non Biological Unknown FDA Start: 11-10-2019 Goals Date Patient Goal Desired Activity /State Functional Status Date Assessment Result Facility 04-26-2024 Functional Status N/A [facility] 04-24-2024 Functional Status N/A [facility] 03-24-2024 Functional Status N/A [facility] 02-10-2024 Functional Status N/A [facility] 01-06-2024 Functional Status N/A [facility] 10-05-2023 Functional Status N/A [facility] 10-05-2023 Functional Status [facility] 09-19-2023 Functional Status No [facility] 09-19-2023 Functional Status [facility] NEGATED: Highlighted row Functional performance Functional status health issues are not documented Disease [facility] [facility] Work Phone: Mental Status Date Assessment Result Facility NEGATED: Highlighted row Cognitive function [Interpretation] Cognitive status health issues are not documented Disease [facility] christianoke [facility] Work Phone: Clinical Notes 02-15-2020 to 04-26-2024 Note Date & Type Note Facility 04-26-2024 Hospital Discharg e instructions Patient Education 04/26/2024 13:55:54 Opioid Withdrawal Opioid Withdrawal Opioids are powerful substances that relieve pain. Opioids include illegal drugs, such as heroin, as well as prescription pain medicines, such as codeine, morphine, hydrocodone, and fentanyl. Opioid withdrawal can happen if you have been taking opioids for a period of time and then suddenly stop. Opioid withdrawal can be mild to severe, and it may include a variety of different symptoms. It is not usually life-threatening. What are the causes? This condition is caused by taking opioids for a long period of time, usually over several weeks (or even only 5 days), and then doing any of the following: Stopping use completely. Rapidly reducing their use, either by reducing the dose or the frequency of use. Taking a medicine to block the effect of the opioid (opioid antagonist). What increases the risk? The following factors may make you more likely to develop this condition: Taking opioids for a long period of time. Taking opioids incorrectly. Having a history of opioid, alcohol, or illicit drug use and withdrawal from those substances. What are the signs or symptoms? Symptoms of this condition can be physical or mental. Mild physical symptoms include: Nausea. Muscle aches or spasms. Watery eyes and runny nose. Widening of the dark centers of the eyes (dilated pupils). Flushing and itching of the skin. Moderate symptoms of this condition include: Stomach cramps and diarrhea. Vomiting. Increased blood pressure and fast pulse. Chills or sweating. Twitching or shaking (tremors). Mental symptoms include: Depression. Anxiety. Restlessness and irritability. Trouble sleeping. Increased craving for drugs. When symptoms start and how long they last depend on the kind of opioid you have been taking. Short-acting opioids, such as heroin and oxycodone, work fast and then lose their effect quickly. Symptoms occur within hours of stopping or reducing the amount you take. The worst symptoms (peak withdrawal) occur in 24 48 hours. Symptoms should diminish over the next 3 to 5 days. Long-acting opioids, such as methadone, work for a longer period of time. Symptoms can occur within 30 hours of stopping or reducing the amount you take, and they usually resolve over the next 10 days or so. There are also medicines that block the effects of opioids (opioid antagonists), such as naltrexone or naloxone, and partial agonists such as buprenorphine. If you take one of these medicines, symptoms begin within minutes. How is this diagnosed? This condition is diagnosed based on: Your symptoms. Your medical history, including: ?Your history of drug and alcohol use. ?The medicines you have been taking. A physical exam. Other tests, such as an ECG to look at the rhythm of your heart or blood tests to check for problems. Your health care provider may ask you to see a mental health professional or center medical specialist. How is this treated? Treatment for this condition is usually provided by mental health professionals with training in substance use disorders (addiction specialists). Treatment may involve: Counseling. This treatment is also called talk therapy. It is provided by substance use treatment counselors. Support groups. Support groups are run by people who have quit using opioids. They provide emotional support, advice, and guidance. Medicines. The medicines used may depend on the severity of your withdrawal. Options may include: ?Medicines to help reduce certain withdrawal symptoms, such as nausea, vomiting, diarrhea, or stomach cramps. ?An opioid or opioid-like medicine, such as methadone or buprenorphine, to replace the opioid that you have been taking. You may be asked to take less and less of this medicine over time to reduce or prevent withdrawal symptoms. ?Other medicines that may decrease the effects of withdrawal. Follow these instructions at home: Take trmb-gef-qrxwgzm and prescription medicines only as told by your health care provider. Always check with your health care provider before starting any new medicines. Keep all follow-up visits. This is important. Follow-up visits include mental health and counseling visits. Contact a health care provider if: You are not able to take your medicines as told. Your symptoms get worse. You take an opioid after stopping use, or you take more of an opioid than you have been. You have questions about how to take your medicines or you are unsure of when to take them. Get help right away if: You have a seizure. You lose consciousness. You cannot stop vomiting. You are unable to drink or eat, and you become weak and dizzy. You develop chest pain, shortness of breath, or fever. You have serious thoughts about hurting yourself or others. These symptoms may represent a serious problem that is an emergency. Do not wait to see if the symptoms will go away. Get medical help right away. Call your local emergency services (911 in the [place] Do not drive yourself to the hospital. If you ever feel like you may hurt yourself or others, or have thoughts about taking your own life, get help right away. Go to your nearest emergency department or: Call your local emergency services (911 in the [place] Call a suicide crisis helpline, such as the National Suicide Prevention Lifeline at or 712 in the [place] This is open 24 hours a day in the [place] Text the Crisis Text Line at 429447 (in the [place] Summary Opioid withdrawal is a group of symptoms that can occur if you have been taking opioids for a period of time and suddenly stop. Symptoms range from mild to severe, but opioid withdrawal is usually not life-threatening. Common symptoms include anxiety, tremors, chills, body aches, nausea, vomiting, and diarrhea. Symptoms may last 5 10 days or so depending on the type of opioids that were involved. Treatment may include counseling, support groups, and medicines. This information is not intended to replace advice given to you by your health care provider. Make sure you discuss any questions you have with your health care provider. Document Revised: 09/20/2021 Document Reviewed: 06/07/2021 [employer] Patient Education 2023 [employer]. [facility] 04-26-2024 Note ED Patient Education Note Mental and Behavioral Health Opioid Withdrawal Opioids are powerful substances that relieve pain. Opioids include illegal drugs, such as heroin, as well as prescription pain medicines, such as codeine, morphine, hydrocodone, and fentanyl. Opioid withdrawal can happen if you have been taking opioids for a period of time and then suddenly stop. Opioid withdrawal can be mild to severe, and it may include a variety of different symptoms. It is not usually life-threatening. What are the causes? This condition is caused by taking opioids for a long period of time, usually over several weeks (or even only 5 days), and then doing any of the following: ??? Stopping use completely. ??? Rapidly reducing their use, either by reducing the dose or the frequency of use. ??? Taking a medicine to block the effect of the opioid (opioid antagonist). What increases the risk? The following factors may make you more likely to develop this condition: ??? Taking opioids for a long period of time. ??? Taking opioids incorrectly. ??? Having a history of opioid, alcohol, or illicit drug use and withdrawal from those substances. What are the signs or symptoms? Symptoms of this condition can be physical or mental. Mild physical symptoms include: ??? Nausea. ??? Muscle aches or spasms. ??? Watery eyes and runny nose. ??? Widening of the dark centers of the eyes (dilated pupils). ??? Flushing and itching of the skin. Moderate symptoms of this condition include: ??? Stomach cramps and diarrhea. ??? Vomiting. ??? Increased blood pressure and fast pulse. ??? Chills or sweating. ??? Twitching or shaking (tremors). Mental symptoms include: ??? Depression. ??? Anxiety. ??? Restlessness and irritability. ??? Trouble sleeping. ??? Increased craving for drugs. When symptoms start and how long they last depend on the kind of opioid you have been taking. ??? Short-acting opioids, such as heroin and oxycodone, work fast and then lose their effect quickly. Symptoms occur within hours of stopping or reducing the amount you take. The worst symptoms (peak withdrawal) occur in 24?48 hours. Symptoms should diminish over the next 3 to 5 days. ??? Long-acting opioids, such as methadone, work for a longer period of time. Symptoms can occur within 30 hours of stopping or reducing the amount you take, and they usually resolve over the next 10 days or so. There are also medicines that block the effects of opioids (opioid antagonists), such as naltrexone or naloxone, and partial agonists such as buprenorphine. If you take one of these medicines, symptoms begin within minutes. How is this diagnosed? This condition is diagnosed based on: ??? Your symptoms. ??? Your medical history, including: ? Your history of drug and alcohol use. ? The medicines you have been taking. ??? A physical exam. ??? Other tests, such as an ECG to look at the rhythm of your heart or blood tests to check for problems. Your health care provider may ask you to see a mental health professional or center medical specialist. How is this treated? Treatment for this condition is usually provided by mental health professionals with training in substance use disorders (addiction specialists). Treatment may involve: ??? Counseling. This treatment is also called talk therapy. It is provided by substance use treatment counselors. ??? Support groups. Support groups are run by people who have quit using opioids. They provide emotional support, advice, and guidance. ??? Medicines. The medicines used may depend on the severity of your withdrawal. Options may include: ? Medicines to help reduce certain withdrawal symptoms, such as nausea, vomiting, diarrhea, or stomach cramps. ? An opioid or opioid-like medicine, such as methadone or buprenorphine, to replace the opioid that you have been taking. You may be asked to take less and less of this medicine over time to reduce or prevent withdrawal symptoms. ? Other medicines that may decrease the effects of withdrawal. Follow these instructions at home: ??? Take kwwo-ico-nbcaohw and prescription medicines only as told by your health care provider. ??? Always check with your health care provider before starting any new medicines. ??? Keep all follow-up visits. This is important. Follow-up visits include mental health and counseling visits. Contact a health care provider if: ??? You are not able to take your medicines as told. ??? Your symptoms get worse. ??? You take an opioid after stopping use, or you take more of an opioid than you have been. ??? You have questions about how to take your medicines or you are unsure of when to take them. Get help right away if: ??? You have a seizure. ??? You lose consciousness. ??? You cannot stop vomiting. ??? You are unable to drink or eat, and you become weak and dizzy. ??? You develop chest pain, shortness of breath, or fever. (more content not included)... [facility] 04-26-2024 Note ED Note-Nursing pt put call light on - stated he was leaving now. provider informed. education provided. Pt stated port does not need heparin flushed. pt agitated. [facility] 04-24-2024 Hospital Discharg e instructions Patient Education 04/24/2024 15:01:48 Opioid Withdrawal Opioid Withdrawal Opioids are powerful substances that relieve pain. Opioids include illegal drugs, such as heroin, as well as prescription pain medicines, such as codeine, morphine, hydrocodone, and fentanyl. Opioid withdrawal can happen if you have been taking opioids for a period of time and then suddenly stop. Opioid withdrawal can be mild to severe, and it may include a variety of different symptoms. It is not usually life-threatening. What are the causes? This condition is caused by taking opioids for a long period of time, usually over several weeks (or even only 5 days), and then doing any of the following: Stopping use completely. Rapidly reducing their use, either by reducing the dose or the frequency of use. Taking a medicine to block the effect of the opioid (opioid antagonist). What increases the risk? The following factors may make you more likely to develop this condition: Taking opioids for a long period of time. Taking opioids incorrectly. Having a history of opioid, alcohol, or illicit drug use and withdrawal from those substances. What are the signs or symptoms? Symptoms of this condition can be physical or mental. Mild physical symptoms include: Nausea. Muscle aches or spasms. Watery eyes and runny nose. Widening of the dark centers of the eyes (dilated pupils). Flushing and itching of the skin. Moderate symptoms of this condition include: Stomach cramps and diarrhea. Vomiting. Increased blood pressure and fast pulse. Chills or sweating. Twitching or shaking (tremors). Mental symptoms include: Depression. Anxiety. Restlessness and irritability. Trouble sleeping. Increased craving for drugs. When symptoms start and how long they last depend on the kind of opioid you have been taking. Short-acting opioids, such as heroin and oxycodone, work fast and then lose their effect quickly. Symptoms occur within hours of stopping or reducing the amount you take. The worst symptoms (peak withdrawal) occur in 24 48 hours. Symptoms should diminish over the next 3 to 5 days. Long-acting opioids, such as methadone, work for a longer period of time. Symptoms can occur within 30 hours of stopping or reducing the amount you take, and they usually resolve over the next 10 days or so. There are also medicines that block the effects of opioids (opioid antagonists), such as naltrexone or naloxone, and partial agonists such as buprenorphine. If you take one of these medicines, symptoms begin within minutes. How is this diagnosed? This condition is diagnosed based on: Your symptoms. Your medical history, including: ?Your history of drug and alcohol use. ?The medicines you have been taking. A physical exam. Other tests, such as an ECG to look at the rhythm of your heart or blood tests to check for problems. Your health care provider may ask you to see a mental health professional or center medical specialist. How is this treated? Treatment for this condition is usually provided by mental health professionals with training in substance use disorders (addiction specialists). Treatment may involve: Counseling. This treatment is also called talk therapy. It is provided by substance use treatment counselors. Support groups. Support groups are run by people who have quit using opioids. They provide emotional support, advice, and guidance. Medicines. The medicines used may depend on the severity of your withdrawal. Options may include: ?Medicines to help reduce certain withdrawal symptoms, such as nausea, vomiting, diarrhea, or stomach cramps. ?An opioid or opioid-like medicine, such as methadone or buprenorphine, to replace the opioid that you have been taking. You may be asked to take less and less of this medicine over time to reduce or prevent withdrawal symptoms. ?Other medicines that may decrease the effects of withdrawal. Follow these instructions at home: Take ibem-jwp-xdthzmo and prescription medicines only as told by your health care provider. Always check with your health care provider before starting any new medicines. Keep all follow-up visits. This is important. Follow-up visits include mental health and counseling visits. Contact a health care provider if: You are not able to take your medicines as told. Your symptoms get worse. You take an opioid after stopping use, or you take more of an opioid than you have been. You have questions about how to take your medicines or you are unsure of when to take them. Get help right away if: You have a seizure. You lose consciousness. You cannot stop vomiting. You are unable to drink or eat, and you become weak and dizzy. You develop chest pain, shortness of breath, or fever. You have serious thoughts about hurting yourself or others. These symptoms may represent a serious problem that is an emergency. Do not wait to see if the symptoms will go away. Get medical help right away. Call your local emergency services (887 in the [place] Do not drive yourself to the hospital. If you ever feel like you may hurt yourself or others, or have thoughts about taking your own life, get help right away. Go to your nearest emergency department or: Call your local emergency services (241 in the [place] Call a suicide crisis helpline, such as the National Suicide Prevention Lifeline at or 448 in the [place] This is open 24 hours a day in the [place] Text the Crisis Text Line at 475620 (in the [place] Summary Opioid withdrawal is a group of symptoms that can occur if you have been taking opioids for a period of time and suddenly stop. Symptoms range from mild to severe, but opioid withdrawal is usually not life-threatening. Common symptoms include anxiety, tremors, chills, body aches, nausea, vomiting, and diarrhea. Symptoms may last 5 10 days or so depending on the type of opioids that were involved. Treatment may include counseling, support groups, and medicines. This information is not intended to replace advice given to you by your health care provider. Make sure you discuss any questions you have with your health care provider. Document Revised: 09/20/2021 Document Reviewed: 06/07/2021 [employer] Patient Education 2023 [employer]. Follow Up Care 04/24/2024 13:08:44 With:Your pain management physician Address:Unknown When:04/27/2024 15:01:44 With:TIKI DOCKERY Address: [address] , [address] [address]- Business (1) When:Within 3 Day(s) [facility] 04-24-2024 Note ED Patient Education Note Mental and Behavioral Health Opioid Withdrawal Opioids are powerful substances that relieve pain. Opioids include illegal drugs, such as heroin, as well as prescription pain medicines, such as codeine, morphine, hydrocodone, and fentanyl. Opioid withdrawal can happen if you have been taking opioids for a period of time and then suddenly stop. Opioid withdrawal can be mild to severe, and it may include a variety of different symptoms. It is not usually life-threatening. What are the causes? This condition is caused by taking opioids for a long period of time, usually over several weeks (or even only 5 days), and then doing any of the following: ??? Stopping use completely. ??? Rapidly reducing their use, either by reducing the dose or the frequency of use. ??? Taking a medicine to block the effect of the opioid (opioid antagonist). What increases the risk? The following factors may make you more likely to develop this condition: ??? Taking opioids for a long period of time. ??? Taking opioids incorrectly. ??? Having a history of opioid, alcohol, or illicit drug use and withdrawal from those substances. What are the signs or symptoms? Symptoms of this condition can be physical or mental. Mild physical symptoms include: ??? Nausea. ??? Muscle aches or spasms. ??? Watery eyes and runny nose. ??? Widening of the dark centers of the eyes (dilated pupils). ??? Flushing and itching of the skin. Moderate symptoms of this condition include: ??? Stomach cramps and diarrhea. ??? Vomiting. ??? Increased blood pressure and fast pulse. ??? Chills or sweating. ??? Twitching or shaking (tremors). Mental symptoms include: ??? Depression. ??? Anxiety. ??? Restlessness and irritability. ??? Trouble sleeping. ??? Increased craving for drugs. When symptoms start and how long they last depend on the kind of opioid you have been taking. ??? Short-acting opioids, such as heroin and oxycodone, work fast and then lose their effect quickly. Symptoms occur within hours of stopping or reducing the amount you take. The worst symptoms (peak withdrawal) occur in 24?48 hours. Symptoms should diminish over the next 3 to 5 days. ??? Long-acting opioids, such as methadone, work for a longer period of time. Symptoms can occur within 30 hours of stopping or reducing the amount you take, and they usually resolve over the next 10 days or so. There are also medicines that block the effects of opioids (opioid antagonists), such as naltrexone or naloxone, and partial agonists such as buprenorphine. If you take one of these medicines, symptoms begin within minutes. How is this diagnosed? This condition is diagnosed based on: ??? Your symptoms. ??? Your medical history, including: ? Your history of drug and alcohol use. ? The medicines you have been taking. ??? A physical exam. ??? Other tests, such as an ECG to look at the rhythm of your heart or blood tests to check for problems. Your health care provider may ask you to see a mental health professional or center medical specialist. How is this treated? Treatment for this condition is usually provided by mental health professionals with training in substance use disorders (addiction specialists). Treatment may involve: ??? Counseling. This treatment is also called talk therapy. It is provided by substance use treatment counselors. ??? Support groups. Support groups are run by people who have quit using opioids. They provide emotional support, advice, and guidance. ??? Medicines. The medicines used may depend on the severity of your withdrawal. Options may include: ? Medicines to help reduce certain withdrawal symptoms, such as nausea, vomiting, diarrhea, or stomach cramps. ? An opioid or opioid-like medicine, such as methadone or buprenorphine, to replace the opioid that you have been taking. You may be asked to take less and less of this medicine over time to reduce or prevent withdrawal symptoms. ? Other medicines that may decrease the effects of withdrawal. Follow these instructions at home: ??? Take yeca-fko-paidcbw and prescription medicines only as told by your health care provider. ??? Always check with your health care provider before starting any new medicines. ??? Keep all follow-up visits. This is important. Follow-up visits include mental health and counseling visits. Contact a health care provider if: ??? You are not able to take your medicines as told. ??? Your symptoms get worse. ??? You take an opioid after stopping use, or you take more of an opioid than you have been. ??? You have questions about how to take your medicines or you are unsure of when to take them. Get help right away if: ??? You have a seizure. ??? You lose consciousness. ??? You cannot stop vomiting. ??? You are unable to drink or eat, and you become weak and dizzy. ??? You develop chest pain, shortness of breath, or fever. (more content not included)... [facility] 04-24-2024 Evaluation + Plan note Extrac lamont from: Title:ED Note Author:Mark Alves DO Date:04/11 07/03 Opioid withdrawal (F11.93: O pioid use, unspecified with withdrawal) Orders: HYDROmorphone, 1 mg = 1 mL, Injection, IntraMuscular, Once, Stop date 04/24/24 14:57:00 EST, STAT, Start date 04/24/24 14:57:00 EST, 04/24/24 14:57:00 EST ondansetron, 4 mg = 1 tab(s), Oral, q6hr, X 3 day(s), # 10 tab(s), Refills(s) 0, Pharmacy: [facility] #[id number], 188, cm, 04/24/24 13:55:00 EST, Height/Length Dosing, 87.6, kg, 04/24/24 13:55:00 EST, Weight Dosing promethazine, 25 mg = 1 mL, Injection, IntraMuscular, Once, Stop date 04/24/24 14:57:00 EST, STAT, Start date 04/24/24 14:57:00 EST CBC w/ Auto Diff Comprehensive Metabolic Panel eGFR Ethanol Level Lipase Level PT & PTT Future Appointments Appointment Date:05/04/2024 08:30:00 AM Scheduled Provider: Location:[facility] Appointment Type:URO Nurse Visit Appointment Date:05/29/2024 08:15:00 AM Scheduled Provider:Clarence SYED MD Location:[facility] Appointment Type:URO Office Visit [facility] 02-03-2025 History of Present illness Narrative* Hernandez Arambula DPM - 04/13/2024 9:30 AM EST Images from the original note were not included. HPI: Patient presents today for evaluation of a wound/ulcer on the right foot. Wound has been present for chronic. Previous treatment consists of: previous treatments by consulting software engineer. Wound was healed for afew months and has returned. Patient has had a history of amputation. He has an MRI scheduled next week. Patient would also like to discuss the Qutenza to see if there is a cheaper way for him to obtain this Rx. It is still going to be over $300 per application from [employer]. Patient is diabetic. No other complaints. Exam: General Examination: Patient is seen at bedside in no acute distress Foot Exam: 04/13/24 Diabetic Shoe & Insert: Previous amputation of the other foot, or part of the footYes- right hallux amputation. History of previous foot ulceration of footYes- right hallux. History of pre-ulcerative callous of foot:Yes- right heel. Peripheral of Neuropathy with evidence of callous formation:Yes. Foot deformity Yes- hammertoes bilateral. Vascular: DORSALIS PEDIS PULSE:1/4 bilateral. POSTERIOR TIBIAL PULSE:2/4 bilateral. TEMPERATURE GRADIENT:warm to cool. EDEMA:none. CAPILLARY FILLING TIME(sec):capillary fill intact bilateral digits less than 3 secs. Neurologic: VIBRATORY:abnormal, decreased to the hallux IPJ bilateral. SEMMES-SHAYY 5.07 MONOFILAMENTdecreased to the plantar ball of the foot and toes. Dermatologic: SKIN FINDINGS: fissure to the posterior plantar right heel. There is surrounding erythema, edema and concern for possible abscess to the plantar right heel developing. There is no streaking noted. Slight warmth, but no opening or drainage noted to the fissure. Concern for possible retained foreign body to the area. HYPERKERATOSIS:sub 1st MPJ right, plantar heel. NAIL PATHOLOGY:digits 1-5 bilateral are intact. SKIN PATHOLOGY:thin, decreased hair growth bilateral. Orthopedic: FOOT MORPHOLOGY:neutral. JOINT RANGE OF MOTION:without pain or crepitus. DEFORMITIES:contracture digits 2-5 bilateral. PAIN ELICITED WITH PALPATION OF: fissure and prior opening right plantar heel MUSCLE STRENGTH5/5 for all pedal groups tested. Patient's DM shoes with custom inserts fit well to his feet without any areas of rubbing or pain. Modifier: -Q7. Assessments: 1. 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 Dermatophytosis of nail - B35.1 3. Pain in left foot - M79.672 4. Pain in right foot - M79.671 5. History of amputation of right great toe - Z89.411 6. Neuropathy of right foot - G57.91 7. Neuropathy of left foot - G57.92 8. Acquired hammer toe deformity of lesser toe of left foot - M20.42 9. Acquired hammer toe deformity of lesser toe of right foot - M20.41 10. Corns and callosities - L84 11. Plantar fasciitis - M72.2 12. Fissure right heel 13. Cellulitis possible abscess right heel Treatment Note: 1. Ulceration to the right heel was evaluated at today's visit. 2. Wound debridement was performed of the ulceration site. As patient has full neuropathy, there isno need for local anesthesia. I did excise nonviable tissue, callus, skin, and slough of ulcerationsite. This was performed with a 15 blade and will be one of possibly staged series of ulceration and debridements on a weekly basis pending medical necessity. Pedal pain was none. Hemostasis was obtained with pressure. 3. Saline flush to the ulceration site, followed by amerigel and dry dressing. Patient was advised to perform daily dressing changes to the ulceration site until healed. 4. Patient advised not to submerge foot underwater until ulcer is completely healed. Patient shouldspongebathe the foot only in all unopen areas. 5. Patient was instructed on continued dressing changes to the ulceration site with Amerigel. Patient has MRI scheduled on 04/21/24. 6. Patient was advised if they notice any worsening to the ulceration site including signs of infection, N/F/V/C to call the office for an urgent appointment or go to the nearest emergency room. 7. RTC: 2 weeks. We did discuss application of Qutenza and how this medication is applied and the recommended courseof treatment to provide symptom improvement. Patient has tried a multitude of prior treatments for his diabetic neuropathy symptoms including: Gabapentin, lyrica, spinal cord stimulator. Patient was advised on how our office will obtain coverage information and process for application/treatment. Patient is interested in proceeding and we will check with his insurance in regards to coverage. We discussed the potential side effects that can occur with treatment and the typical outcomes/expected symptoms improvement. I advised that it is recommended that we plan on three applications spaced 3 months apart in order to see the most symptoms improvement. documented in this encounterUniversity [facility] [id number] Evaluation note* Diagnosis Stage 3a chronic kidney disease (HCC) (CMS/HCC)- Primary Type II diabetes mellitus with neurological manifestations (CMS/HCC) Type II or unspecified type diabetes mellitus with neurological manifestations, not stated as uncontrolled Simple chronic bronchitis (CMS/HCC) Simple chronic bronchitis Essential hypertension (CMS/HCC) Unspecified essential hypertension Peripheral vascular disease (CMS/HCC) Unspecified peripheral vascular disease Pulmonary hypertension (CMS/HCC) Other chronic pulmonary heart diseases Cirrhosis of liver without ascites, unspecified hepatic cirrhosis type (CMS/HCC) GERD without esophagitis Esophageal reflux Chronic depression (CMS/HCC) Pure hypercholesterolemia (CMS/HCC) Pure hypercholesterolemia Vascular claudication (CMS/HCC) Pancreatic insufficiency (CMS/HCC) Other specified disease of pancreas Type 2 diabetes mellitus with diabetic neuropathy, unspecified (CMS/HCC) Type 2 diabetes, controlled, with neuropathy (CMS/HCC) Type II or unspecified type diabetes mellitus with neurological manifestations, not stated as uncontrolled Chemotherapy-induced neuropathy (CMS/HCC)- Primary Type II diabetes mellitus with neurological manifestations (CMS/HCC) Type II or unspecified type diabetes mellitus with neurological manifestations, not stated as uncontrolled Type 2 diabetes mellitus with diabetic polyneuropathy, with long-term current use of insulin (CMS/HCC) Simple chronic bronchitis (CMS/HCC) Simple chronic bronchitis Essential hypertension (CMS/HCC) Unspecified essential hypertension Peripheral vascular disease (CMS/HCC) Unspecified peripheral vascular disease Pulmonary hypertension (CMS/HCC) Other chronic pulmonary heart diseases Diastolic dysfunction Unspecified heart disease Cirrhosis of liver without ascites, unspecified hepatic cirrhosis type (CMS/HCC) GERD without esophagitis Esophageal reflux Pancreatic insufficiency (CMS/HCC) Other specified disease of pancreas Chronic hepatitis C without hepatic coma (CMS/HCC) Benign prostatic hyperplasia with urinary frequency Stage 3a chronic kidney disease (HCC) (CMS/HCC) Type 2 diabetes mellitus with hypoglycemia without coma, with long-term current use of insulin (CMS/HCC) Chronic depression (CMS/HCC) Anxiety Anxiety state, unspecified Status post amputation of great toe, right (CMS/HCC) Pure hypercholesterolemia (CMS/HCC) Pure hypercholesterolemia History of malignant neoplasm of pancreas Personal history of malignant neoplasm of other site in gastrointestinal tract COPD exacerbation (CMS/HCC)- Primary Obstructive chronic bronchitis with exacerbation Simple chronic bronchitis (CMS/HCC) Simple chronic 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 (CMS/HCC) Diastolic dysfunction Unspecified heart disease Medicare annual wellness visit, subsequent- Primary Type 2 diabetes mellitus with peripheral neuropathy (CMS/HCC) 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 (CMS/HCC) Simple chronic bronchitis Essential hypertension (CMS/HCC) Unspecified essential hypertension Peripheral vascular disease (CMS/HCC) Unspecified peripheral vascular disease Pulmonary hypertension (CMS/HCC) Other chronic pulmonary heart diseases Congestive heart failure with left ventricular diastolic dysfunction, chronic (CMS/HCC) Cirrhosis of liver without ascites, unspecified hepatic cirrhosis type (CMS/HCC) GERD without esophagitis Esophageal reflux Pancreatic insufficiency (CMS/HCC) Other specified disease of pancreas Chronic hepatitis C without hepatic coma (CMS/HCC) Benign prostatic hyperplasia with urinary frequency Stage 3a chronic kidney disease (HCC) (CMS/HCC) Type 2 diabetes mellitus with stage 3a chronic kidney disease, with long-term current use of insulin (HCC) (CMS/HCC) Chronic depression (CMS/HCC) Status post amputation of great toe, right (CMS/HCC) Pure hypercholesterolemia (CMS/HCC) Pure hypercholesterolemia History of malignant neoplasm of pancreas Personal history of malignant neoplasm of other site in gastrointestinal tract Current smoker Routine general medical examination at health care facility Routine general medical examination at a health care facility Type II diabetes mellitus with neurological manifestations (CMS/HCC) Type II or unspecified type diabetes mellitus with neurological manifestations, not stated as uncontrolled TED (obstructive sleep apnea) Obstructive sleep apnea (adult) (pediatric) Type 2 diabetes mellitus with peripheral neuropathy (CMS/HCC)- Primary TED (obstructive sleep apnea) Obstructive sleep apnea (adult) (pediatric) 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 (CMS/HCC) Simple chronic bronchitis Essential hypertension (CMS/HCC) Unspecified essential hypertension Peripheral vascular disease (CMS/HCC) Unspecified peripheral vascular disease Pulmonary hypertension (CMS/HCC) Other chronic pulmonary heart diseases Congestive heart failure with left ventricular diastolic dysfunction, chronic (CMS/HCC) Cirrhosis of liver without ascites, unspecified hepatic cirrhosis type (CMS/HCC) GERD without esophagitis Esophageal reflux Pancreatic insufficiency (CMS/HCC) Other specified disease of pancreas Chronic hepatitis C without hepatic coma (CMS/HCC) Benign prostatic hyperplasia with urinary frequency Type 2 diabetes mellitus with stage 3a chronic kidney disease, with long-term current use of insulin (HCC) (CMS/HCC) Stage 3a chronic kidney disease (HCC) (CMS/HCC) Anxiety Anxiety state, unspecified Chronic depression (CMS/HCC) Status post amputation of great toe, right (CMS/HCC) Pure hypercholesterolemia (CMS/HCC) Pure hypercholesterolemia History of malignant neoplasm of pancreas Personal history of malignant neoplasm of other site in gastrointestinal tract Screening for prostate cancer Special screening for malignant neoplasm of prostate 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 (CMS/HCC) Type 2 diabetes mellitus with stage 3a chronic kidney disease, with long-term current use of insulin (HCC) (CMS/HCC) TED (obstructive sleep apnea) Obstructive sleep apnea (adult) (pediatric) Simple chronic bronchitis (CMS/HCC) Simple chronic bronchitis Essential hypertension (CMS/HCC) Unspecified essential hypertension Peripheral vascular disease (CMS/HCC) Unspecified peripheral vascular disease Pulmonary hypertension (CMS/HCC) Other chronic pulmonary heart diseases Congestive heart failure with left ventricular diastolic dysfunction, chronic (CMS/HCC) Cirrhosis of liver without ascites, unspecified hepatic cirrhosis type (CMS/HCC) GERD without esophagitis Esophageal reflux Pancreatic insufficiency (CMS/HCC) Other specified disease of pancreas Chronic hepatitis C without hepatic coma (CMS/HCC) Benign prostatic hyperplasia with urinary frequency Stage 3a chronic kidney disease (HCC) (CMS/HCC) Anxiety Anxiety state, unspecified Chronic depression (CMS/HCC) Status post amputation of great toe, right (CMS/HCC) Pure hypercholesterolemia (CMS/HCC) Pure hypercholesterolemia History of malignant neoplasm of pancreas Personal history of malignant neoplasm of other site in gastrointestinal tract Type 2 diabetes mellitus with diabetic polyneuropathy, with long-term current use of insulin (CMS/HCC) Type II diabetes mellitus with neurological manifestations (CMS/HCC) Type II or unspecified type diabetes mellitus with neurological manifestations, not stated as uncontrolled Cellulitis of right heel- Primary Ulcer of heel, right, with fat layer exposed (CMS/HCC) Neuropathy Mononeuritis of unspecified site Type II diabetes mellitus with neurological manifestations (CMS/HCC) Type II or unspecified type diabetes mellitus with neurological manifestations, not stated as uncontrolled documented in this encounter [facility] [id number] Evaluation note* Diagnosis Stage 3a chronic kidney disease (HCC) (CMS/HCC)- Primary Type II diabetes mellitus with neurological manifestations (CMS/HCC) Type II or unspecified type diabetes mellitus with neurological manifestations, not stated as uncontrolled Simple chronic bronchitis (CMS/HCC) Simple chronic bronchitis Essential hypertension (CMS/HCC) Unspecified essential hypertension Peripheral vascular disease (CMS/HCC) Unspecified peripheral vascular disease Pulmonary hypertension (CMS/HCC) Other chronic pulmonary heart diseases Cirrhosis of liver without ascites, unspecified hepatic cirrhosis type (CMS/HCC) GERD without esophagitis Esophageal reflux Chronic depression (CMS/HCC) Pure hypercholesterolemia (CMS/HCC) Pure hypercholesterolemia Vascular claudication (CMS/HCC) Pancreatic insufficiency (CMS/HCC) Other specified disease of pancreas Type 2 diabetes mellitus with diabetic neuropathy, unspecified (CMS/HCC) Type 2 diabetes, controlled, with neuropathy (CMS/HCC) Type II or unspecified type diabetes mellitus with neurological manifestations, not stated as uncontrolled Chemotherapy-induced neuropathy (CMS/HCC)- Primary Type II diabetes mellitus with neurological manifestations (CMS/HCC) Type II or unspecified type diabetes mellitus with neurological manifestations, not stated as uncontrolled Type 2 diabetes mellitus with diabetic polyneuropathy, with long-term current use of insulin (CMS/HCC) Simple chronic bronchitis (CMS/HCC) Simple chronic bronchitis Essential hypertension (CMS/HCC) Unspecified essential hypertension Peripheral vascular disease (CMS/HCC) Unspecified peripheral vascular disease Pulmonary hypertension (CMS/HCC) Other chronic pulmonary heart diseases Diastolic dysfunction Unspecified heart disease Cirrhosis of liver without ascites, unspecified hepatic cirrhosis type (CMS/HCC) GERD without esophagitis Esophageal reflux Pancreatic insufficiency (CMS/HCC) Other specified disease of pancreas Chronic hepatitis C without hepatic coma (CMS/HCC) Benign prostatic hyperplasia with urinary frequency Stage 3a chronic kidney disease (HCC) (CMS/HCC) Type 2 diabetes mellitus with hypoglycemia without coma, with long-term current use of insulin (CMS/HCC) Chronic depression (CMS/HCC) Anxiety Anxiety state, unspecified Status post amputation of great toe, right (CMS/HCC) Pure hypercholesterolemia (CMS/HCC) Pure hypercholesterolemia History of malignant neoplasm of pancreas Personal history of malignant neoplasm of other site in gastrointestinal tract COPD exacerbation (CMS/HCC)- Primary Obstructive chronic bronchitis with exacerbation Simple chronic bronchitis (CMS/HCC) Simple chronic 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 (CMS/HCC) Diastolic dysfunction Unspecified heart disease Medicare annual wellness visit, subsequent- Primary Type 2 diabetes mellitus with peripheral neuropathy (CMS/HCC) 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 (CMS/HCC) Simple chronic bronchitis Essential hypertension (CMS/HCC) Unspecified essential hypertension Peripheral vascular disease (CMS/HCC) Unspecified peripheral vascular disease Pulmonary hypertension (CMS/HCC) Other chronic pulmonary heart diseases Congestive heart failure with left ventricular diastolic dysfunction, chronic (CMS/HCC) Cirrhosis of liver without ascites, unspecified hepatic cirrhosis type (CMS/HCC) GERD without esophagitis Esophageal reflux Pancreatic insufficiency (CMS/HCC) Other specified disease of pancreas Chronic hepatitis C without hepatic coma (CMS/HCC) Benign prostatic hyperplasia with urinary frequency Stage 3a chronic kidney disease (HCC) (CMS/HCC) Type 2 diabetes mellitus with stage 3a chronic kidney disease, with long-term current use of insulin (HCC) (CMS/HCC) Chronic depression (CMS/HCC) Status post amputation of great toe, right (CMS/HCC) Pure hypercholesterolemia (CMS/HCC) Pure hypercholesterolemia History of malignant neoplasm of pancreas Personal history of malignant neoplasm of other site in gastrointestinal tract Current smoker Routine general medical examination at health care facility Routine general medical examination at a health care facility Type II diabetes mellitus with neurological manifestations (CMS/HCC) Type II or unspecified type diabetes mellitus with neurological manifestations, not stated as uncontrolled TED (obstructive sleep apnea) Obstructive sleep apnea (adult) (pediatric) Type 2 diabetes mellitus with peripheral neuropathy (CMS/HCC)- Primary TED (obstructive sleep apnea) Obstructive sleep apnea (adult) (pediatric) 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 (CMS/HCC) Simple chronic bronchitis Essential hypertension (CMS/HCC) Unspecified essential hypertension Peripheral vascular disease (CMS/HCC) Unspecified peripheral vascular disease Pulmonary hypertension (CMS/HCC) Other chronic pulmonary heart diseases Congestive heart failure with left ventricular diastolic dysfunction, chronic (CMS/HCC) Cirrhosis of liver without ascites, unspecified hepatic cirrhosis type (CMS/HCC) GERD without esophagitis Esophageal reflux Pancreatic insufficiency (CMS/HCC) Other specified disease of pancreas Chronic hepatitis C without hepatic coma (CMS/HCC) Benign prostatic hyperplasia with urinary frequency Type 2 diabetes mellitus with stage 3a chronic kidney disease, with long-term current use of insulin (HCC) (CMS/HCC) Stage 3a chronic kidney disease (HCC) (CMS/HCC) Anxiety Anxiety state, unspecified Chronic depression (CMS/HCC) Status post amputation of great toe, right (CMS/HCC) Pure hypercholesterolemia (CMS/HCC) Pure hypercholesterolemia History of malignant neoplasm of pancreas Personal history of malignant neoplasm of other site in gastrointestinal tract Screening for prostate cancer Special screening for malignant neoplasm of prostate 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 (CMS/HCC) Type 2 diabetes mellitus with stage 3a chronic kidney disease, with long-term current use of insulin (HCC) (CMS/HCC) TED (obstructive sleep apnea) Obstructive sleep apnea (adult) (pediatric) Simple chronic bronchitis (CMS/HCC) Simple chronic bronchitis Essential hypertension (CMS/HCC) Unspecified essential hypertension Peripheral vascular disease (CMS/HCC) Unspecified peripheral vascular disease Pulmonary hypertension (CMS/HCC) Other chronic pulmonary heart diseases Congestive heart failure with left ventricular diastolic dysfunction, chronic (CMS/HCC) Cirrhosis of liver without ascites, unspecified hepatic cirrhosis type (CMS/HCC) GERD without esophagitis Esophageal reflux Pancreatic insufficiency (CMS/HCC) Other specified disease of pancreas Chronic hepatitis C without hepatic coma (CMS/HCC) Benign prostatic hyperplasia with urinary frequency Stage 3a chronic kidney disease (HCC) (CMS/HCC) Anxiety Anxiety state, unspecified Chronic depression (CMS/HCC) Status post amputation of great toe, right (CMS/HCC) Pure hypercholesterolemia (CMS/HCC) Pure hypercholesterolemia History of malignant neoplasm of pancreas Personal history of malignant neoplasm of other site in gastrointestinal tract Type 2 diabetes mellitus with diabetic polyneuropathy, with long-term current use of insulin (CMS/HCC) Type II diabetes mellitus with neurological manifestations (CMS/HCC) Type II or unspecified type diabetes mellitus with neurological manifestations, not stated as uncontrolled Neuropathy- Primary Mononeuritis of unspecified site Type II diabetes mellitus with neurological manifestations (CMS/HCC) Type II or unspecified type diabetes mellitus with neurological manifestations, not stated as uncontrolled Cellulitis of right heel Status post amputation of great toe, right (CMS/HCC) Ulcer of heel, right, with fat layer exposed (CMS/HCC) Onychomycosis Dermatophytosis of nail [facility] in this [id number] History of Present illness Narrative* Hernandez Arambula, DPM - 03/26/2024 9:00 AM EST Images from the original note were not included. HPI: Patient presents today for evaluation of a wound/ulcer on the right foot. Wound has been present for chronic. Previous treatment consists of: previous treatments by consulting software engineer. Wound was healed for afew months and has returned. Patient has had a history of amputation. Patient is diabetic. No other complaints. Patient presents in office today for routine nail care. Patient states that the nails are especially painful with shoe gear and pressure. He states that they has pain in the feet. There is pain related to the toenails, especially with shoe gear and pressure. They have difficulty with trimming the nails due to trouble reaching them and because of the thickness in the nail. Patient denies being diabetic. Patient has problems with slow healing wounds or sores on the feet. Patient does have burning, tingling and numbness in the feet. Patient's PCP is Tiki Dockery DO. Date of Last visit: 09/2022. No other pedal complaints at this time. Exam: General Examination: Patient is seen at bedside in no acute distress Foot Exam: 03/18/24 Diabetic Shoe & Insert: Previous amputation of the other foot, or part of the footYes- right hallux amputation. History of previous foot ulceration of footYes- right hallux. History of pre-ulcerative callous of foot:Yes- right heel. Peripheral of Neuropathy with evidence of callous formation:Yes. Foot deformity Yes- hammertoes bilateral. Vascular: DORSALIS PEDIS PULSE:1/4 bilateral. POSTERIOR TIBIAL PULSE:2/4 bilateral. TEMPERATURE GRADIENT:warm to cool. EDEMA:none. CAPILLARY FILLING TIME(sec):capillary fill intact bilateral digits less than 3 secs. Neurologic: VIBRATORY:abnormal, decreased to the hallux IPJ bilateral. SEMMES-SHAYY 5.07 MONOFILAMENTdecreased to the plantar ball of the foot and toes. Dermatologic: SKIN FINDINGS: fissure to the posterior plantar right heel. There is surrounding erythema, edema and concern for possible abscess to the plantar right heel developing. There is no streaking noted. Slight warmth, but no opening or drainage noted to the fissure. HYPERKERATOSIS:sub 1st MPJ right, plantar heel. NAIL PATHOLOGY:digits 1-5 bilateral are intact. SKIN PATHOLOGY:thin, decreased hair growth bilateral. Nail Pathology: Left Foot: 1 (great toe)elongated, thick, discolored, crumbly, dystrophic and with subungal debris. 2elongated, thick, discolored, crumbly, dystrophic and with subungal debris. 3elongated, thick, discolored, crumbly, dystrophic and with subungal debris. 4elongated, thick, discolored, crumbly, dystrophic and with subungal debris. 5elongated, thick, discolored, crumbly, dystrophic and with subungal debris. Nail Pathology: Right Foot: 1 (great toe)absent. 2elongated, thick, discolored, crumbly, dystrophic and with subungal debris. 3elongated, thick, discolored, crumbly, dystrophic and with subungal debris. 4elongated, thick, discolored, crumbly, dystrophic and with subungal debris. 5elongated, thick, discolored, crumbly, dystrophic and with subungal debris. Orthopedic: FOOT MORPHOLOGY:neutral. JOINT RANGE OF MOTION:without pain or crepitus. DEFORMITIES:contracture digits 2-5 bilateral. PAIN ELICITED WITH PALPATION OF:none MUSCLE STRENGTH5/5 for all pedal groups tested. Patient's DM shoes with custom inserts fit well to his feet without any areas of rubbing or pain. Modifier: -Q7. Assessments: 1. 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 Dermatophytosis of nail - B35.1 3. Pain in left foot - M79.672 4. Pain in right foot - M79.671 5. History of amputation of right great toe - Z89.411 6. Neuropathy of right foot - G57.91 7. Neuropathy of left foot - G57.92 8. Acquired hammer toe deformity of lesser toe of left foot - M20.42 9. Acquired hammer toe deformity of lesser toe of right foot - M20.41 10. Corns and callosities - L84 11. Plantar fasciitis - M72.2 12. Fissure right heel 13. Cellulitis possible abscess right heel Treatment Note: ICD B35.1 - Dermatophytosis of nail: 1. Nails were debrided in length and thickness by manual and mechanical means. 2. Advised patient of proper foot care to prevent any future complications including daily monitoring of the feet. 3. RTC: 9-12 weeks or as needed if problems arise as patient would like to continue to come in for routine nail care appointments to prevent future pain and problems developing from the overgrowth ofthe toenails. Fissure Right heel: 1. I explained to the patient the indication for ancillary imaging, specifically MRI, due to the fact that they continue to have persistent and recurrent pain despite numerous conservative efforts, including immobilization, stretching, icing, inserts, and anti-inflammatories for several consecutivemonths. This will directly affect the treatment plan and is medically necessary for further evaluation of the current diagnosis. 2. Order was placed into [facility] for MRI right ankle. 3. Patient was instructed on scheduling once prior authorization is obtained if needed and follow-up afterward. Patient was instructed to make an appointment 3- 5 days afterward to discuss the resultsand further treatment plan. 4. Patient was instructed on continued conservative treatment in the meantime including taking the antibiotics that are prescribed, good wound care and offloading. Patient was advised that if he notices any deep opening or infection as well as other signs of infection such as nausea, vomiting, diarrhea then he should go to the nearest Emergency Room. 5. RTC: following MRI. documented in this [facility]01-15-2025 Telephone encounter Note* Telephone Encounter - Marysol York - 03/25/2024 1:46 PM EST Pt calling to relay to Starla to leave his paperwork up front. Pt will be in tomorrow morning to sign them. He said Starla will know what paperwork. It was something he was suppose to sign a little while ago but was unable due to transportation issues. [facility] [id number] Miscellaneous Notes* Telephone Encounter - Marysol York - 03/25/2024 1:46 PM EST Pt calling to relay to Starla to leave his paperwork up front. Pt will be in tomorrow morning to sign them. He said Starla will know what paperwork. It was something he was suppose to sign a little while ago but was unable due to transportation issues. documented in this encounter[facility] [id number] Evaluation + Plan note Extracted from: Title:Urology Progress Note Author:Lidia SYED MD Date:03/24/24 Impression and Plan Impression: #1. 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 Plan: #1 we will get him set up for urodynamics. 2. We are scheduling a cystoscopy and transurethral resection of the prostate. Extracted from: Title:EU Local Male Cystosco py w/ or w/o UD - FT Author:Clarence SYED MD Date:03/24/24 Patient: ALTAGRACIA CONWAY Age: 68 years Sex: Male : 1955 Associated Diagnoses: None Author: Clarence SYED MD Procedure Operative Information Details: Date/ Time: 03/24/2024 10:38:00. Pre-Op Dx: BPH w/ LUTS - N40.1, Hesitancy. Post-Op Dx: Same. Anesthesia Type: Local. Procedure: Local Cystoscopy. Complications: None. Risks/Benefits/Informed Consent: Surgical risks, benefits, details of the procedure have been explained to the patient, Full informed consent has been obtained. Intraoperative Information Prepped: Patient is brought back to the endoscopy suite, Patient is placed in supine position, Patient prepped in the usual fashion with Betadine solution, 2% Xylocaine Jelly is placed per Urethra, After waiting several minutes the Cystoscope is introduced. The Urethra is: Normal, Mild stricture in the proximal penile urethra. The Bladder is: Trabeculated (Severe (3), Open diverticuli diffusely. No bladder tumors. High bladder neck.). The ureteral orifices: Show efflux of clear urine. Devices Implanted: None. Removal: Cystoscope is removed, The patient tolerated it well. Postoperative Information Discharge: Patient is discharged home with antibiotic coverage, Follow up arranged. We will get him scheduled for a TURP and urodynamics.. Addendum by Yuan SYED MD on March 24, 2024 10:40 EST Prostate reveals tight by lobar obstruct ion of the prostate and a high median bar Future Appointments Appointment Date:05/04/2024 08:30:00 AM Scheduled Provider: Location:[facility] Appointment Type:URO Nurse Visit Appointment Date:05/29/2024 08:15:00 AM Scheduled Provider:Clarence SYED MD Location:[facility] Appointment Type:URO Office Visit [facility] 01-14-2025 Hospital Discharge instructions Patient Education 03/24/2024 11:07:53 Transurethral Resection of the Prostate Transurethral Resection of the Prostate Transurethral resection of the prostate (TURP) is the removal, or resection, of part of the prostate tissue. This procedure is done to treat an enlarged prostate gland (benign prostatic hyperplasia). The goal of TURP is to remove enough prostate tissue to allow for a normal flow of urine. The procedure will allow you to empty your bladder more completely when you urinate so that you can urinate less often. In a transurethral resection, a thin telescope with a light, a camera, and an electric cutting edge(resectoscope) is passed through the urethra and into the prostate. The opening of the urethra is at the end of the penis. Tell a health care provider about: Any allergies you have. All medicines you are taking, including vitamins, herbs, eye drops, creams, and ydhq-tdh-cbdqozy medicines. Any problems you or family members have had with anesthetic medicines. Any bleeding problems you have. Any surgeries you have had. Any medical conditions you have. Any prostate infections you have had. What are the risks? Generally, this is a safe procedure. However, problems may occur, including: Infection. Bleeding. Allergic reactions to medicines. Blood in the urine (hematuria). Damage to nearby structures or organs. Other problems may occur, but they are rare. They include: Dry ejaculation, or having no semen come out during orgasm. Erectile dysfunction, or being unable to have or keep an erection. Scarring that leads to narrowing of the urethra. This narrowing may block the flow of urine. Inability to control when you urinate (incontinence). Deep vein thrombosis. This is a blood clot that can develop in your leg. TURP syndrome. This can happen when you lose too much sodium during or after the procedure. Some signs and symptoms of this condition include: ?Weakness. ?Headaches. ?Nausea or vomiting. ?Muscle cramping. What happens before the procedure? When to stop eating and drinking Follow instructions from your health care provider about what you may eat and drink before your procedure. These may include: 8 hours before your procedure ?Stop eating most foods. Do not eat meat, fried foods, or fatty foods. ?Eat only light foods, such as toast or crackers. ?All liquids are okay except energy drinks and alcohol. 6 hours before your procedure ?Stop eating. ?Drink only clear liquids, such as water, clear fruit juice, black coffee, plain tea, and sports drinks. ?Do not drink energy drinks or alcohol. 2 hours before your procedure ?Stop drinking all liquids. ?You may be allowed to take medicines with small sips of water. If you do not follow your health care provider's instructions, your procedure may be delayed or canceled. Medicines Ask your health care provider about: Changing or stopping your regular medicines. This is especially important if you are taking diabetes medicines or blood thinners. Taking medicines such as aspirin and ibuprofen. These medicines can thin your blood. Do not take these medicines unless your health care provider tells you to take them. Taking zpvp-igw-mlmtymk medicines, vitamins, herbs, and supplements. Surgery safety Ask your health care provider what steps will be taken to help prevent infection. These steps may include: Removing hair at the surgery site. Washing skin with a germ-killing soap. Taking antibiotic medicine. General instructions Do not use any products that contain nicotine or tobacco for at least 4 weeks before the procedure.These products include cigarettes, chewing tobacco, and vaping devices, such as e-cigarettes. If you need help quitting, ask your health care provider. If you will be going home right after the procedure, plan to have a responsible adult: ?Take you home from the hospital or clinic. You will not be allowed to drive. ?Care for you for the time you are told. What happens during the procedure? An IV will be inserted into one of your veins. You will be given one or more of the following: ?A medicine to help you relax (sedative). ?A medicine to make you fall asleep (general anesthetic). ?A medicine that is injected into your spine to numb the area below and slightly above the injection site (spinal anesthetic). Your legs will be placed in foot rests (stirrups) so that your legs are apart and your knees are bent. The resectoscope will be passed through your urethra to your prostate. Parts of your prostate will be resected using the cutting edge of the resectoscope. Fluid will be passed to rinse out the cut tissues (irrigation). The resectoscope will be removed. A small, thin tube (catheter) will be passed through your urethra and into your bladder. The catheter will drain urine into a bag outside of your body. The procedure may vary among health care providers and hospitals. What happens after the procedure? Your blood pressure, heart rate, breathing rate, and blood oxygen level will be monitored until youleave the hospital or clinic. You will be given fluids through the IV. The IV will be removed when you start eating and drinking normally. You may have some pain. Pain medicine will be available to help you. You will have a catheter draining your urine. ?You may have blood in your urine. Your catheter may be kept in until your urine is clear. ?Your urinary drainage will be monitored. If necessary, your bladder may be rinsed out (irrigated) through your catheter. You will be encouraged to walk around as soon as possible. You may have to wear compression stockings. These stockings help to prevent blood clots and reduce swelling in your legs. If you were given a sedative during the procedure, it can affect you for several hours. Do not drive or operate machinery until your health care provider says that it is safe. Summary Transurethral resection of the prostate (TURP) is the removal (resection) of part of the prostate tissue. The goal of this procedure is to remove enough prostate tissue to allow for a normal flow of urine. Follow instructions from your health care provider about taking medicines and about eating and drinking before the procedure. This information is not intended to replace advice given to you by your health care provider. Make sure you discuss any questions you have with your health care provider. Document Revised: 11/21/2021 Document Reviewed: 11/21/2021 [employer] Patient Education 2023 [employer]. [facility] 01-14-2025 NotePatient Education Urology Transurethral Resection of the Prostate Transurethral resection of the prostate (TURP) is the removal, or resection, of part of the prostate tissue. This procedure is done to treat an enlarged prostate gland (benign prostatic hyperplasia). The goal of TURP is to remove enough prostate tissue to allow for a normal flow of urine. The procedure will allow you to empty your bladder more completely when you urinate so that you can urinate less often. In a transurethral resection, a thin telescope with a light, a camera, and an electric cutting edge(resectoscope) is passed through the urethra and into the prostate. The opening of the urethra is at the end of the penis. Tell a health care provider about: ??? Any allergies you have. ??? All medicines you are taking, including vitamins, herbs, eye drops, creams, and zbur-vjp-owhevtl medicines. ??? Any problems you or family members have had with anesthetic medicines. ??? Any bleeding problems you have. ??? Any surgeries you have had. ??? Any medical conditions you have. ??? Any prostate infections you have had. What are the risks? Generally, this is a safe procedure. However, problems may occur, including: ??? Infection. ??? Bleeding. ??? Allergic reactions to medicines. ??? Blood in the urine (hematuria). ??? Damage to nearby structures or organs. Other problems may occur, but they are rare. They include: ??? Dry ejaculation, or having no semen come out during orgasm. ??? Erectile dysfunction, or being unable to have or keep an erection. ??? Scarring that leads to narrowing of the urethra. This narrowing may block the flow of urine. ??? Inability to control when you urinate (incontinence). ??? Deep vein thrombosis. This is a blood clot that can develop in your leg. ??? TURP syndrome. This can happen when you lose too much sodium during or after the procedure. Some signs and symptoms of this condition include: ? Weakness. ? Headaches. ? Nausea or vomiting. ? Muscle cramping. What happens before the procedure? When to stop eating and drinking Follow instructions from your health care provider about what you may eat and drink before your procedure. These may include: ??? 8 hours before your procedure ? Stop eating most foods. Do not eat meat, fried foods, or fatty foods. ? Eat only light foods, such as toast or crackers. ? All liquids are okay except energy drinks and alcohol. ??? 6 hours before your procedure ? Stop eating. ? Drink only clear liquids, such as water, clear fruit juice, black coffee, plain tea, and sports drinks. ? Do not drink energy drinks or alcohol. ??? 2 hours before your procedure ? Stop drinking all liquids. ? You may be allowed to take medicines with small sips of water. If you do not follow your health care provider's instructions, your procedure may be delayed or canceled. Medicines Ask your health care provider about: ??? Changing or stopping your regular medicines. This is especially important if you are taking diabetes medicines or blood thinners. ??? Taking medicines such as aspirin and ibuprofen. These medicines can thin your blood. Do not take these medicines unless your health care provider tells you to take them. ??? Taking eufk-jah-lepsnvm medicines, vitamins, herbs, and supplements. Surgery safety Ask your health care provider what steps will be taken to help prevent infection. These steps may include: ??? Removing hair at the surgery site. ??? Washing skin with a germ-killing soap. ??? Taking antibiotic medicine. General instructions ??? Do not use any products that contain nicotine or tobacco for at least 4 weeks before the procedure. These products include cigarettes, chewing tobacco, and vaping devices, such as e-cigarettes. If you need help quitting, ask your health care provider. ??? If you will be going home right after the procedure, plan to have a responsible adult: ? Take you home from the hospital or clinic. You will not be allowed to drive. ? Care for you for the time you are told. What happens during the procedure? An IV will be inserted into one of your veins. ??? You will be given one or more of the following: ? A medicine to help you relax (sedative). ? A medicine to make you fall asleep (general anesthetic). ? A medicine that is injected into your spine to numb the area below and slightly above the injection site (spinal anesthetic). ??? Your legs will be placed in foot rests (stirrups) so that your legs are apart and your knees are bent. ??? The resectoscope will be passed through your urethra to your prostate. ??? Parts of your prostate will be resected using the cutting edge of the resectoscope. ??? Fluid will be passed to rinse out the cut tissues (irrigation). ??? The resectoscope will be removed. ??? A small, thin tube (catheter) will be passed through your urethra and into your bladder. The cathete (more content not included)...[facility]01-14-2025 NoteProgress Note-Physician Patient: ALTAGRACIA CONWAY Age: 68 years Sex: Male : 1955 Associated Diagnoses: None Author: JOANN WU, Clarence Zazueta X this gentleman has rather severe urinary hesitancy and a weak stream despite Flomax. Cystoscopy today revealed severe tight lateral lobe obstruction and a high median bar of his prostate. Also, he has high-grade bladder damage with open diverticuli formation. No tumors were seen. Review of Systems ROS reviewed as documented in chart Health Status Allergies: Allergic Reactions (Selected) Severity Not Documented Ragweed- No reactions were documented. Current medications: Home Medications (25) Active Adult Aspirin 81 mg oral tablet, chewable 81 mg = 1 tab(s), Chewed, Daily amLODIPine 10 mg Tab 10 mg = 1 tab(s), Oral, Daily Ativan 1 mg Tab 1 mg = 1 tab(s), Oral, Bedtime atorvastatin 10 mg Tab 10 mg = 1 tab(s), Oral, Daily Breo Ellipta 100 mcg-25 mcg inhalation powder 1 puff(s), Inhalation, Daily busPIRone 30 mg oral tablet 30 mg = 1 tab(s), Oral, Bedtime cefTRIAXone 1 g intravenous injection 1 gm = 1 EA, IV Piggyback, q24hr Cipro 500 mg Tab 500 mg = 1 tab(s), Oral, Daily Creon 36,000 units oral delayed release capsule 2 cap(s), Oral, TIDWM doxepin 100 mg Cap 100 mg = 1 cap(s), Oral, Once a day (at bedtime) Fetzima 40 mg oral capsule, extended release See Instructions furosemide 20 mg Tab 20 mg = 1 tab(s), Oral, Daily insulin aspart 100 units/mL injectable solution 8 unit(s), SubCutaneous, Daily insulin aspart 100 units/mL injectable solution 8-12 unit(s), SubCutaneous, Supper insulin degludec 100 units/mL subcutaneous solution 30 unit(s), SubCutaneous, Daily lisinopril 10 mg Tab 10 mg = 1 tab(s), Oral, Daily mirtazapine 45 mg oral tablet 45 mg = 1 tab(s), Oral, Once a day (at bedtime) ondansetron 8 mg Dis Tab 8 mg = 1 tab(s), PRN, Oral, q8hr oxycodone 10 mg oral tablet 10 mg = 1 tab(s), PRN, Oral, QID Pantoprazole [address] Tab 40 mg = 1 tab(s), Oral, Daily pregabalin 150 mg Cap 150 mg = 1 cap(s), Oral, BID S.A.S.H (SALINE, ADMINISTRATION OF DRUG, SALINE, HEPARIN) 0 tamsulosin 0.4 mg Cap 0.4 mg = 1 cap(s), Oral, BID Ventolin HFA 90 mcg/inh Aerosol-Adpt 1 puff(s), PRN, Inhalation, q4hr Vitamin D3 2000 intl units oral Tab 50 mcg, Oral, Daily Problem list: All Problems Medial collateral ligament sprain of knee / SNOMED CT 561537663 / Confirmed Contusion of knee, right / SNOMED CT 15347597 / Confirmed Brachial plexus neuropathy / SNOMED CT 112822227 / Confirmed Diabetes / SNOMED CT [id number] / Confirmed HTN (hypertension) / SNOMED CT [id number] / Confirmed Hepatitis C / SNOMED CT 83937119 / Confirmed Hepatitis C / SNOMED CT 55453761 / Confirmed Diabetes / SNOMED CT 701136271 / Confirmed Hyperlipidemia / SNOMED CT 19904439 / Confirmed Depression with anxiety / SNOMED CT 157179084 / Confirmed DM2 (diabetes mellitus, type 2) / SNOMED CT 665222900 / Confirmed History of pancreatic cancer / SNOMED CT 4999185835 / Confirmed CKD (chronic kidney disease), stage III / SNOMED CT 1585197612 / Confirmed Smoker / ICD-10-CM F17.200 / Confirmed Clostridium difficile diarrhea / SNOMED CT 4422414390 / Confirmed Problem added secondary to positive C-Diff lab result. Histories Past Medical History: Active Diabetes ([id number]) HTN (hypertension) ([id number]) Hepatitis C (09098925) Family History: Primary malignant neoplasm of lung Brother Pancreatic cancer Father Mother Procedure history: Amputated toe ([id number]) on 03/11/2015 at 59 Years. 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 Social History Social & Psychosocial Habits Alcohol 09/19/2023 Risk Assessment: Denies Alcohol Use 09/19/2023 Use: Current Comment: tasha - 04/30/2017 21:42 Roxy Brand RN 09/19/2023 Use: Current Comment: tasha - 07/12/2018 09:30 Roxy Brand RN 09/19/2023 Use: Current Comment: tasha - 02/22/2019 13:15 Starla Cline RN Substance Abuse 09/19/2023 Use: Current Comment: tasha - 07/12/2018 09:31 Roxy Brand RN 09/19/2023 Use: Current Comment: tasha - 02/22/2019 13:15 Starla Cline RN 09/19/2023 Use: Current Type: Marijuana Frequency: Daily 09/19/2023 Risk Assessment: High Risk Tobacco 09/19/2023 Risk Assessment: High Risk 09/19/2023 Tobacco Use: Current Every Day Smoker Type: Cigarettes Comment: 3-6 cigarettes a day - 05/10/2016 08:35 - Franca RICHARDSON, Alpa Julio 09/19/2023 Tobacco Use: 10 or more cigarettes (1/ Type: Cigarettes Comment: 03/12 ppd - 04/30/2017 21:41 - Roxy Rizo RN 09/19/2023 Tobacco Use: 10 or more cigarettes (1/ Comment: 1 pack every week - 07/12/2018 09:31 - Roxy Rizo RN 09/19/2023 Tobacco Use: 10 or more cigarettes (1/ Type: Cigarettes Ready to change: No Concerns abo (more content not included)...[facility] CenterComment on above:Result Comment: Electronically Signed By: JOANN WU, Clarence Sue.br\Date and Time Signed: 03/24/24 10:43 [id number] Telephone encounter Note* Telephone Encounter - Marysol York - 03/09/2024 3:08 PM EST Insurance is calling to report they have spoken to the patient. He's declining care for wound care but is reporting an active heel ulcer. Wanted to make Dr. Fairbanks aware [facility] [id number] Miscellaneous Notes* Telephone Encounter - Marysol York - 03/09/2024 3:08 PM EST Insurance is calling to report they have spoken to the patient. He's declining care for wound care but is reporting an active heel ulcer. Wanted to make Dr. Fairbanks aware documented in this encounterUniversity Health Lakewood Medical [id number] Telephone encounter Note* Telephone Encounter - Marysol York - 02/14/2024 2:43 PM EST Pt called stating [facility] called [facility] and they said they hadn't received the muscle relaxer med order. [facility] [id number] Miscellaneous Notes* Telephone Encounter - Marysol Jaylen - 02/14/2024 2:43 PM EST Pt called stating he called [facility] and they said they hadn't received the muscle relaxer med order. I [facility] order to [facility] documented in this encounterUniversity Health Lakewood Medical [id number] History of Present illness Narrative* Tiki Dockery, - 02/14/2024 8:30 AM EST Images from the original note were not included. Altagracia Conway is a 68 y.o. male presents with chief complaint of ER Follow-up HPI: Pt here for ER follow up. [place] [facility] [place]/t having flu like symptoms. Had covid shot a couple weeks ago. Symtpoms started about 2 weeks ago. Chest xray was done and was told it was not pneumonia. Was prescribe a zithromax- which has not helped. Has not been able to eat, has lost weight. Current symptoms: , unable to get warm, body aches, vomiting. Last time he vomited was yesterday. Has been drinking more water and trying to stay hydrated. Pt was told to stop lasix d/t dehydration. Has been off for about 1 week. -Having left posterior neck pain. Started about 2 weeks ago. Pain is constant, and is a 8-9/10 at times. Pain increases when moving his neck. Has not been taking anything for pain. Has tried heating pad which has not helped. No imaging. Has had chronic diarrhea that has been worse the last 2 months. Has multiple BM daily. Had a more formed BM yesterday but normally watery. Taking creon daily. Saw Dr Vazquez yesterday but he didn't change anything and pt states he only saw him for a couple of minutes. He is not really able to eat anything and has been vomiting intermittently. Down about 20 lbs in the last 2 months. ER Follow-up Associated symptoms include arthralgias, fatigue, headaches, nausea, neck pain and numbness. Pertinent negatives include no abdominal pain, chest pain, chills, congestion, coughing, fever, rash, sorethroat or vomiting. SUBJECTIVE: See medication list at the end of the note. Allergies Allergen Reactions Mixed Ragweed SEASONAL ALLERGIES REVIEW OF SYMPTOMS: Review of Systems Constitutional: Positive for appetite change, fatigue and unexpected weight change. Negative for chills and fever. HENT: Negative for congestion, sinus pressure, sinus pain and sore throat. Eyes: Negative for visual disturbance. Respiratory: Positive for shortness of breath. Negative for cough. Cardiovascular: Negative for chest pain and palpitations. Gastrointestinal: Positive for diarrhea and nausea. Negative for abdominal pain, blood in stool, constipation and vomiting. Genitourinary: Positive for difficulty urinating. Negative for dysuria, flank pain and hematuria. Musculoskeletal: Positive for arthralgias, back pain and neck pain. Negative for neck stiffness. Skin: Negative for rash. Neurological: Positive for light-headedness, numbness and headaches. Psychiatric/Behavioral: Positive for sleep disturbance. OBJECTIVE: 02/14/2024 8:28 AM 12/10/2023 10:22 AM 11/26/2023 10:05 AM Vitals BMI 25.36 kg/m2 28.32 kg/m2 28.75 kg/m2 Systolic 130 126 120 Diastolic 72 62 68 Heart Rate 111 77 72 Temp 97.6 F 97.5 F 97 F Height (in) 6' 6' 6' Weight (lb) 187 208.8 212 Visit Report Report Report Report Physical Exam Constitutional: General: He is not in acute distress. Appearance: Normal appearance. He is ill-appearing. Cardiovascular: Rate and Rhythm: Normal rate and regular rhythm. Heart sounds: No murmur heard. No friction rub. No gallop. Pulmonary: Breath sounds: Normal breath sounds. No wheezing, rhonchi or rales. Abdominal: Palpations: Abdomen is soft. Tenderness: There is no abdominal tenderness. There is no right CVA tenderness, left CVA tenderness, guarding or rebound. Comments: Bowel sounds hyperactive Musculoskeletal: General: No swelling. Neurological: Mental Status: He is alert. ASSESSMENT AND PLAN: Problem List Items Addressed This Visit None Visit Diagnoses Diarrhea, unspecified type - Primary Relevant Orders Comprehensive metabolic panel CBC and differential Amylase Lipase Clostridium difficile,EIA Stool culture Fecal leukocytes Neck pain Relevant Medications tiZANidine (Zanaflex) 4 MG tablet I do have concerns for C diff colitis based on his symptoms and I am very concerned about his weight loss. He has a hx of pancreatic cancer. Recent CT in November was normal. Will get bloodwork as well as stool studies for further evaluation of this. He is to stay well hydrated and use zofran for his nausea. If getting dehydrated he is to go back to the ER. I believe his neck pain is muscle spasm and will give a muscle relaxer to take at night. No sign ofmeningitis. Follow up if symptoms worsen or fail to improve. Patient's Medications New Prescriptions TIZANIDINE (ZANAFLEX) 4 MG TABLET Take 1 tablet (4 mg) by mouth every 6 (six) hours if needed for muscle spasms Previous Medications ALBUTEROL HFA (VENTOLIN HFA) 90 MCG/ACT INHALER Inhale 2 puffs every 4 (four) hours if needed for wheezing or shortness of breath AMLODIPINE (NORVASC) 10 MG TABLET Take 10 mg by mouth Daily ASPIRIN 81 MG EC TABLET Take 81 mg by mouth in the morning. ATORVASTATIN (LIPITOR) 10 MG TABLET TAKE 1 TABLET BY MOUTH ONCE DAILY AZITHROMYCIN (ZITHROMAX) 250 MG TABLET BD PEN NEEDLE JUAN 2ND GEN 32G X 4 MM [facility] [place] ELLIPTA 100-25 MCG/ACT AEROSOL POWDER BUSPIRONE (BUSPAR) 30 MG TABLET Take 1 tablet (30 mg) by mouth at bedtime. CONTINUOUS BLOOD GLUC DOOR HANGER (FREESTYLE MAYA 3 READER) DEVICE 1 each See administration instructions CONTINUOUS GLUCOSE SENSOR (FREESTYLE MAYA 3 PLUS SENSOR) MISC 1 each every 14 (fourteen) days CONTINUOUS GLUCOSE SENSOR (FREESTYLE MAYA 3 SENSOR) [facility] [place]ject 1 Device under the skin every 14 (fourteen) days DOXEPIN (SINEQUAN) 100 MG CAPSULE Take 100 mg by mouth at bedtime FETZIMA 80 MG EXTENDED RELEASE CAPSULE Take 80 mg by mouth Daily GNP VITAMIN D MAXIMUM STRENGTH 50 MCG (1999 UT) TABLET TAKE 1 TABLET BY MOUTH ONCE DAILY INSULIN ASPART (NOVOLOG FLEXPEN) 100 UNIT/ML PEN INJECT subq DIRECTED: 7 units breakfast, 7-10 units dinner plus correction 1:75 if blood sugar above 150. (Max daily 30 units) INSULIN DEGLUDEC (TRESIBA FLEXTOUCH) 100 UNIT/ML INJECTION Inject 26 Units under the skin in the morning. LISINOPRIL 10 MG TABLET Take 1 tablet (10 mg) by mouth Daily LORAZEPAM (ATIVAN) 1 MG TABLET Take 1 tablet (1 mg) by mouth at bedtime 1 tablet at hs MIRTAZAPINE (REMERON) 45 MG TABLET Take 1 tablet (45 mg) by mouth at bedtime ONDANSETRON ODT (ZOFRAN-ODT) 8 MG DISINTEGRATING TABLET Take 1 tablet (8 mg) by mouth every 8 (eight) hours if needed for nausea or vomiting ONETOUCH VERIO TEST STRIP USE DIRECTED TO test fasting blood sugars 3 TIMES DAILY OXYCODONE (ROXICODONE) 10 MG IMMEDIATE RELEASE TABLET Take 10 mg by mouth PANCRELIPASE, AEA-DSKM-BCTG, (CREON) [id number] UNITS CAPSULE DELAYED-RELEASE PARTICLES CAPSULE Take 2 capsules by mouth in the morning and 2 capsules in the evening and 2 capsules before bedtime. PREGABALIN (LYRICA) 150 MG CAPSULE Take 1 capsule (150 mg) by mouth in the morning and 1 capsule (150 mg) before bedtime. SILDENAFIL (VIAGRA) 100 MG TABLET Take 1 tablet (100 mg) by mouth Daily as needed for erectile dysfunction TAMSULOSIN (FLOMAX) 0.4 MG 24 HR CAPSULE TAKE 1 CAPSULE BY MOUTH ONCE DAILY Modified Medications No medications on file Discontinued Medications FUROSEMIDE (LASIX) 20 MG TABLET Take 1 tablet (20 mg) by mouth Daily I have reviewed and reconciled the history and medication list with the patient today. documented in this encounterUniversity Health Lakewood Medical [id number] Hospital Discharge instructions Patient Education 02/10/2024 16:56:17 Chronic Obstructive Pulmonary Disease Chronic Obstructive Pulmonary Disease Chronic obstructive pulmonary disease (COPD) is a long-term (chronic) condition that affects the lungs. COPD is a general term that can be used to describe many different lung problems that cause lung inflammation and limit airflow, including chronic bronchitis and emphysema. If you have COPD, your lung function will probably never return to normal. In most cases, it gets worse over time. However, there are steps you can take to slow the progression of the disease and improve your quality of life. What are the causes? This condition may be caused by: Smoking. This is the most common cause. Certain genes passed down through families. What increases the risk? The following factors may make you more likely to develop this condition: Being exposed to secondhand smoke from cigarettes, pipes, or cigars. Being exposed to chemicals and other irritants, such as fumes and dust in the work environment. Having chronic lung conditions or infections. What are the signs or symptoms? Symptoms of this condition include: Shortness of breath, especially during physical activity. Chronic cough with a large amount of thick mucus. Sometimes, the cough may not have any mucus (dry cough). Wheezing and rapid breathing. Cabrera or bluish discoloration (cyanosis) of the skin, especially in the fingers, toes, or lips. Feeling tired (fatigue). Weight loss. Chest tightness. Frequent infections. Episodes when breathing symptoms become much worse (exacerbations). At the later stages of this disease, you may have swelling in the ankles, feet, or legs. How is this diagnosed? This condition is diagnosed based on: Your medical history. A physical exam. You may also have tests, including: Lung (pulmonary) function tests. This may include a spirometry test, which measures your ability toexhale properly. Chest X-ray. CT scan. Blood tests. How is this treated? This condition may be treated with: Medicines. These may include inhaled rescue medicines to treat acute exacerbations as well as medicines that you take long-term (maintenance medicines) to prevent flare-ups of COPD. ?Bronchodilators help treat COPD by dilating the airways to allow increased airflow and make your breathing more comfortable. ?Steroids can reduce airway inflammation and help prevent exacerbations. Smoking cessation. If you smoke, your health care provider may ask you to quit, and may also recommend therapy or replacement products to help you quit. Pulmonary rehabilitation. This may involve working with a team of health care providers and specialists, such as respiratory, occupational, and physical therapists. Exercise and physical activity. These are beneficial for nearly all people with COPD. Nutrition therapy to gain weight, if you are underweight. Oxygen. Supplemental oxygen therapy is only helpful if you have a low oxygen level in your blood (hypoxemia). Lung surgery or transplant. Palliative care. This is to help people with COPD feel comfortable when treatment is no longer working. Follow these instructions at home: Medicines Take cvxs-ylo-mcqeobo and prescription medicines only as told by your health care provider. This includes inhaled medicines and pills. Talk to your health care provider before taking any cough or allergy medicines. You may need to avoid certain medicines that dry out your airways. Lifestyle If you smoke, the most important thing that you can do is to stop smoking. Continuing to smoke willcause the disease to progress faster. Do not use any products that contain nicotine or tobacco. These products include cigarettes, chewing tobacco, and vaping devices, such as e-cigarettes. If you need help quitting, ask your health careprovider. Avoid exposure to things that irritate your lungs, such as smoke, chemicals, and fumes. Stay active, but balance activity with periods of rest. Exercise and physical activity will help you maintain your ability to do things you want to do. Learn and use relaxation techniques to manage stress and to control your breathing. Get the right amount of sleep and get quality sleep. Most adults need 7 or more hours per night. Eat healthy foods. Eating smaller, more frequent meals and resting before meals may help you maintain your strength. Controlled breathing Learn and use controlled breathing techniques as directed by your health care provider. Controlled breathing techniques include: Pursed lip breathing. Start by breathing in (inhaling) through your nose for 1 second. Then, purse your lips as if you were going to whistle and breathe out (exhale) through the pursed lips for 2 seconds. Diaphragmatic breathing. Start by putting one hand on your abdomen just above your waist. Inhale slowly through your nose. The hand on your abdomen should move out. Then purse your lips and exhale slowly. You should be able to feel the hand on your abdomen moving in as you exhale. Controlled coughing Learn and use controlled coughing to clear mucus from your lungs. Controlled coughing is a series of short, progressive coughs. The steps of controlled coughing are: 1.Lean your head slightly forward. 2.Breathe in deeply using diaphragmatic breathing. 3.Try to hold your breath for 3 seconds. 4.Keep your mouth slightly open while coughing twice. 5.Spit any mucus out into a tissue. 6.Rest and repeat the steps once or twice as needed. General instructions Make sure you receive all the vaccines that your health care provider recommends, especially the pneumococcal and influenza vaccines. Preventing infection and hospitalization is very important when you have COPD. Drink enough fluid to keep your urine pale yellow, unless you have a medical condition that requires fluid restriction. Use oxygen therapy and pulmonary rehabilitation if told by your health care provider. If you require home oxygen therapy, ask your health care provider whether you should purchase a pulse oximeter tomeasure your oxygen level at home. Work with your health care provider to develop a COPD action plan. This will help you know what steps to take if your condition gets worse. Keep other chronic health conditions under control as told by your health care provider. Avoid extreme temperature and humidity changes. Avoid contact with people who have an illness that spreads from person to person (is contagious), such as viral infections or pneumonia. Keep all follow-up visits. This is important. Contact a health care provider if: You are coughing up more mucus than usual. There is a change in the color or thickness of your mucus. Your breathing is more labored than usual. Your breathing is faster than usual. You have difficulty sleeping. You need to use your rescue medicines or inhalers more often than expected. You have trouble doing routine activities such as getting dressed or walking around the house. Get help right away if: You have shortness of breath while you are resting. You have shortness of breath that prevents you from: ?Being able to talk. ?Performing your usual physical activities. You have chest pain lasting longer than 5 minutes. Your skin color is more blue (cyanotic) than usual. You measure low oxygen saturations for longer than 5 minutes with a pulse oximeter. You have a fever. You feel too tired to breathe normally. These symptoms may represent a serious problem that is an emergency. Do not wait to see if the symptoms will go away. Get medical help right away. Call your local emergency services (911 in the [place] Do not drive yourself to the hospital. Summary Chronic obstructive pulmonary disease (COPD) is a long-term (chronic) condition that affects the lungs. Your lung function will probably never return to normal. In most cases, it gets worse over time. However, there are steps you can take to slow the progression of the disease and improve your quality of life. Treatment for COPD may include taking medicines, quitting smoking, pulmonary rehabilitation, and changes to diet and exercise. As the disease progresses, you may need oxygen therapy, a lung transplant, or palliative care. To help manage your condition, do not smoke, avoid exposure to things that irritate your lungs, stay up to date on all vaccines, and follow your health care provider's instructions for taking medicines. This information is not intended to replace advice given to you by your health care provider. Make sure you discuss any questions you have with your health care provider. Document Revised: 01/02/2021 Document Reviewed: 01/03/2021 [employer] Patient Education 2023 [employer] Follow Up Care 02/10/2024 15:07:12 With:TIKI OMAYRAANGEL Address: [address] , [facility] [address] [place] [address]- Business (1) When:02/13/2024 16:48:45 [facility] 12-02-2024 Hospital Discharge instructions Patient Education 02/10/2024 14:56:23 Diarrhea, Adult Diarrhea, Adult Diarrhea is frequent loose and sometimes watery bowel movements. Diarrhea can make you feel weak and cause you to become dehydrated. Dehydration is a condition in which there is not enough water or other fluids in the body. Dehydration can make you tired and thirsty, cause you to have a dry mouth, and decrease how often you urinate. Diarrhea typically lasts 2 3 days. However, it can last longer if it is a sign of something more serious. It is important to treat your diarrhea as told by your health care provider. Follow these instructions at home: Eating and drinking Follow these recommendations as told by your health care provider: Take an oral rehydration solution (ORS). This is an hflp-app-cmtdbno medicine that helps return your body to its normal balance of nutrients and water. It is found at pharmacies and retail stores. Drink enough fluid to keep your urine pale yellow. ?Drink fluids such as water, diluted fruit juice, and low-calorie sports drinks. You can drink milkalso, if desired. Sucking on ice chips is another way to get fluids. ?Avoid drinking fluids that contain a lot of sugar or caffeine, such as soda, energy drinks, and regular sports drinks. ?Avoid alcohol. Eat bland, lcyw-zm-tfvdbz foods in small amounts as you are able. These foods include bananas, applesauce, rice, lean meats, toast, and crackers. Avoid spicy or fatty foods. Medicines Take nzcr-nrk-wfqkuad and prescription medicines only as told by your health care provider. If you were prescribed antibiotics, take them as told by your health care provider. Do not stop using the antibiotic even if you start to feel better. General instructions Wash your hands often using soap and water for at least 20 seconds. If soap and water are not available, use hand supervisor tellers. Others in the household should wash their hands as well. Hands should be washed: ?After using the toilet or changing a diaper. ?Before preparing, cooking, or serving food. ?While caring for a sick person or while visiting someone in a hospital. Rest at home while you recover. Take a warm bath to relieve any burning or pain from frequent diarrhea episodes. Watch your condition for any changes. Contact a health care provider if: You have a fever. Your diarrhea gets worse. You have new symptoms. You vomit every time you eat or drink. You feel light-headed, dizzy, or have a headache. You have muscle cramps. You have signs of dehydration, such as: ?Dark urine, very little urine, or no urine. ?Cracked lips. ?Dry mouth. ?Sunken eyes. ?Sleepiness. ?Weakness. You have bloody or black stools or stools that look like tar. You have severe pain, cramping, or bloating in your abdomen. Your skin feels cold and clammy. You feel confused. Get help right away if: You have chest pain or your heart is beating very quickly. You have trouble breathing or you are breathing very quickly. You feel extremely weak or you faint. These symptoms may be an emergency. Get help right away. Call 911. Do not wait to see if the symptoms will go away. Do not drive yourself to the hospital. This information is not intended to replace advice given to you by your health care provider. Make sure you discuss any questions you have with your health care provider. Document Revised: 08/14/2022 Document Reviewed: 08/14/2022 [employer] Patient Education 2023 [employer] 02/10/2024 14:56:20 Weakness Weakness Weakness is a lack of strength. You may feel weak all over your body (generalized), or you may feelweak in one part of your body (focal). Common causes of weakness include: Infection and disorders of the body's defense system (immune system). Physical exhaustion. Internal bleeding or other blood loss that results in a lack of red blood cells (anemia). Dehydration. An imbalance in mineral (electrolyte) levels, such as potassium. Chronic kidney or liver disease. Cancer. Other causes include: Some medicines or cancer treatment. Stress, anxiety, or depression. Heart disease, circulation problems, or stroke. Nervous system disorders. Thyroid disorders. Loss of muscle strength because of age or inactivity. Poor sleep quality or sleep disorders. The cause of your weakness may not be known. Some causes of weakness can be serious, so it is important to see your health care provider. Follow these instructions at home: Activity Rest as needed. Try to get enough sleep. Most adults need 7 8 hours of quality sleep each night. Talk to your health care provider about how much sleep you need. Do exercises, such as arm curls and leg raises, for 30 minutes at least 2 days a week or as told byyour health care provider. This helps build muscle strength. Consider working with a physical therapist or review trainer who can develop an exercise plan to help you gain muscle strength. General instructions Take mbbg-bhf-kiksnrv and prescription medicines only as told by your health care provider. Eat a healthy, well-balanced diet. This includes: ?Proteins to build muscles, such as lean meats and fish. ?Fresh fruits and vegetables. ?Carbohydrates to boost energy, such as whole grains. Drink enough fluid to keep your urine pale yellow. Keep all follow-up visits. This is important. Contact a health care provider if: Your weakness does not improve or gets worse. Your weakness affects your ability to think clearly. Your weakness affects your ability to do your normal daily activities. Get help right away if: You develop sudden weakness, especially on one side of your face or body. You have chest pain. You have trouble breathing or shortness of breath. You have problems with your vision. You have trouble talking or swallowing. You have trouble standing or walking. You are light-headed or lose consciousness. These symptoms may be an emergency. Get help right away. Call 911. Do not wait to see if the symptoms will go away. Do not drive yourself to the hospital. Summary Weakness is a lack of strength. You may feel weak all over your body or just in one specific part of your body. Weakness can be caused by a variety of things. In some cases, the cause may be unknown. Rest as needed, and try to get enough sleep. Most adults need 7 8 hours of quality sleep each night. Eat a healthy, well-balanced diet. This information is not intended to replace advice given to you by your health care provider. Make sure you discuss any questions you have with your health care provider. Document Revised: 01/28/2022 Document Reviewed: 01/28/2022 [employer] Patient Education 2023 [employer]. Follow Up Care 02/10/2024 13:35:51 With:TIKI DOCKERY DO Address:Unknown When: Unknown [facility] 12-02-2024 NoteED Patient Education Note Pulmonary Medicine Chronic Obstructive Pulmonary Disease Chronic obstructive pulmonary disease (COPD) is a long-term (chronic) condition that affects the lungs. COPD is a general term that can be used to describe many different lung problems that cause lung inflammation and limit airflow, including chronic bronchitis and emphysema. If you have COPD, your lung function will probably never return to normal. In most cases, it gets worse over time. However, there are steps you can take to slow the progression of the disease and improve your quality of life. What are the causes? This condition may be caused by: ??? Smoking. This is the most common cause. ??? Certain genes passed down through families. What increases the risk? The following factors may make you more likely to develop this condition: ??? Being exposed to secondhand smoke from cigarettes, pipes, or cigars. ??? Being exposed to chemicals and other irritants, such as fumes and dust in the work environment. ??? Having chronic lung conditions or infections. What are the signs or symptoms? Symptoms of this condition include: ??? Shortness of breath, especially during physical activity. ??? Chronic cough with a large amount of thick mucus. Sometimes, the cough may not have any mucus (dry cough). ??? Wheezing and rapid breathing. ??? Cabrera or bluish discoloration (cyanosis) of the skin, especially in the fingers, toes, or lips. ??? Feeling tired (fatigue). ??? Weight loss. ??? Chest tightness. ??? Frequent infections. ??? Episodes when breathing symptoms become much worse (exacerbations). At the later stages of this disease, you may have swelling in the ankles, feet, or legs. How is this diagnosed? This condition is diagnosed based on: ??? Your medical history. ??? A physical exam. You may also have tests, including: ??? Lung (pulmonary) function tests. This may include a spirometry test, which measures your ability to exhale properly. ??? Chest X-ray. ??? CT scan. ??? Blood tests. How is this treated? This condition may be treated with: ??? Medicines. These may include inhaled rescue medicines to treat acute exacerbations as well as medicines that you take long-term (maintenance medicines) to prevent flare-ups of COPD. ? Bronchodilators help treat COPD by dilating the airways to allow increased airflow and make your breathing more comfortable. ? Steroids can reduce airway inflammation and help prevent exacerbations. ??? Smoking cessation. If you smoke, your health care provider may ask you to quit, and may also recommend therapy or replacement products to help you quit. ??? Pulmonary rehabilitation. This may involve working with a team of health care providers and specialists, such as respiratory, occupational, and physical therapists. ??? Exercise and physical activity. These are beneficial for nearly all people with COPD. ??? Nutrition therapy to gain weight, if you are underweight. ??? Oxygen. Supplemental oxygen therapy is only helpful if you have a low oxygen level in your blood (hypoxemia). ??? Lung surgery or transplant. ??? Palliative care. This is to help people with COPD feel comfortable when treatment is no longer working. Follow these instructions at home: Medicines ??? Take qqli-xgh-dztblcv and prescription medicines only as told by your health care provider. This includes inhaled medicines and pills. ??? Talk to your health care provider before taking any cough or allergy medicines. You may need toavoid certain medicines that dry out your airways. Lifestyle ??? If you smoke, the most important thing that you can do is to stop smoking. Continuing to smoke will cause the disease to progress faster. ??? Do not use any products that contain nicotine or tobacco. These products include cigarettes, chewing tobacco, and vaping devices, such as e-cigarettes. If you need help quitting, ask your health care provider. ??? Avoid exposure to things that irritate your lungs, such as smoke, chemicals, and fumes. ??? Stay active, but balance activity with periods of rest. Exercise and physical activity will help you maintain your ability to do things you want to do. ??? Learn and use relaxation techniques to manage stress and to control your breathing. ??? Get the right amount of sleep and get quality sleep. Most adults need 7 or more hours per night. ??? Eat healthy foods. Eating smaller, more frequent meals and resting before meals may help you maintain your strength. Controlled breathing Learn and use controlled breathing techniques as directed by your health care provider. Controlled breathing techniques include: ??? Pursed lip breathing. Start by breathing in (inhaling) through your nose for 1 second. Then, purse your lips as if you were going to whistle and breathe out (exhale) through the pursed lips for 2seconds. ??? Diaphragm (more content not included)...[facility] 02-10-2024 NotePatient Education Infectious Disease Diarrhea, Adult Diarrhea is frequent loose and sometimes watery bowel movements. Diarrhea can make you feel weak and cause you to become dehydrated. Dehydration is a condition in which there is not enough water or other fluids in the body. Dehydration can make you tired and thirsty, cause you to have a dry mouth, and decrease how often you urinate. Diarrhea typically lasts 2?3 days. However, it can last longer if it is a sign of something more serious. It is important to treat your diarrhea as told by your health care provider. Follow these instructions at home: Eating and drinking Follow these recommendations as told by your health care provider: ??? Take an oral rehydration solution (ORS). This is an jbfu-nnj-uswyhic medicine that helps returnyour body to its normal balance of nutrients and water. It is found at pharmacies and retail stores. ??? Drink enough fluid to keep your urine pale yellow. ? Drink fluids such as water, diluted fruit juice, and low-calorie sports drinks. You can drink milk also, if desired. Sucking on ice chips is another way to get fluids. ? Avoid drinking fluids that contain a lot of sugar or caffeine, such as soda, energy drinks, and regular sports drinks. ? Avoid alcohol. ??? Eat bland, uoih-oc-rycuwh foods in small amounts as you are able. These foods include bananas, applesauce, rice, lean meats, toast, and crackers. ??? Avoid spicy or fatty foods. Medicines ??? Take lavd-nqd-runaquk and prescription medicines only as told by your health care provider. ??? If you were prescribed antibiotics, take them as told by your health care provider. Do not stopusing the antibiotic even if you start to feel better. General instructions ??? Wash your hands often using soap and water for at least 20 seconds. If soap and water are not available, use hand supervisor tellers. Others in the household should wash their hands as well. Hands should be washed: ? After using the toilet or changing a diaper. ? Before preparing, cooking, or serving food. ? While caring for a sick person or while visiting someone in a hospital. ??? Rest at home while you recover. ??? Take a warm bath to relieve any burning or pain from frequent diarrhea episodes. ??? Watch your condition for any changes. Contact a health care provider if: ??? You have a fever. ??? Your diarrhea gets worse. ??? You have new symptoms. ??? You vomit every time you eat or drink. ??? You feel light-headed, dizzy, or have a headache. ??? You have muscle cramps. ??? You have signs of dehydration, such as: ? Dark urine, very little urine, or no urine. ? Cracked lips. ? Dry mouth. ? Sunken eyes. ? Sleepiness. ? Weakness. ??? You have bloody or black stools or stools that look like tar. ??? You have severe pain, cramping, or bloating in your abdomen. ??? Your skin feels cold and clammy. ??? You feel confused. Get help right away if: ??? You have chest pain or your heart is beating very quickly. ??? You have trouble breathing or you are breathing very quickly. ??? You feel extremely weak or you faint. These symptoms may be an emergency. Get help right away. Call 911. ??? Do not wait to see if the symptoms will go away. ??? Do not drive yourself to the hospital. This information is not intended to replace advice given to you by your health care provider. Make sure you discuss any questions you have with your health care provider. Document Revised: 08/14/2022 Document Reviewed: 08/14/2022 Else[employer] Patient Education ? 2023 [employer] Neurology Weakness Weakness is a lack of strength. You may feel weak all over your body (generalized), or you may feelweak in one part of your body (focal). Common causes of weakness include: ??? Infection and disorders of the body's defense system (immune system). ??? Physical exhaustion. ??? Internal bleeding or other blood loss that results in a lack of red blood cells (anemia). ??? Dehydration. ??? An imbalance in mineral (electrolyte) levels, such as potassium. ??? Chronic kidney or liver disease. ??? Cancer. Other causes include: ??? Some medicines or cancer treatment. ??? Stress, anxiety, or depression. ??? Heart disease, circulation problems, or stroke. ??? Nervous system disorders. ??? Thyroid disorders. ??? Loss of muscle strength because of age or inactivity. ??? Poor sleep quality or sleep disorders. The cause of your weakness may not be known. Some causes of weakness can be serious, so it is important to see your health care provider. Follow these instructions at home: Activity ??? Rest as needed. ??? Try to get enough sleep. Most adults need 7?8 hours of quality sleep each night. Talk to your health care provider about how much sleep you need. ??? Do exercises, such as arm curls and leg raises, for 30 minutes at (more content not included)...[facility]11-25-2024 Evaluation note* Diagnosis Onset Date Resolution Status Admit Date Anemia of renal disease acute N ovember 2023 1:54pm CKD (chronic kidney disease) stage 3, GFR 30-59 ml/min acute Novemb er 2023 1:54pm Hyperkalemia acute January 1:54pm Hyperlipidemia acute January 102023 1:54pm Hypertensive chronic kidney disease with stage 1 through stage 4 chronic ki acute January 1:54pm Nephrolithiasis acute February 03, 2024 1:54pm Secondary hyperparathyroidism acute February 03, 2024 1:54pm Type 2 diabetes mellitus wit h diabetic chronic kidney disease acute February 03, 2024 1:54pm Vitamin D deficiency acute Nove mber 2023 1:54pm Pancreatic insufficiency acute February 13, 2024 1:02pm Primary cancer of head of pancreas chronic February 12 1:02pm Abdominal pain acute February 092023 9:48am Neuropathy acute February 28, 2024 9:48am Pancreatic cancer acute Decembe r 2023 9:48am Hypoglycemic episode in [place] with diabetes mellitus acute March 112024 1:48pm Abnormal kidney function chronic March 26, 2024 1:48pm Anemia complicating neoplast ic disease chronic March 26 1:48pm Anxiety chronic March 26, 2024 1:48pm Asthma chronic March 26, 2024 1:48pm Cancer cachexia chronic March 112024 1:48pm Cancer-related pain chronic Janua 2024 1:48pm Diabetes mellitus with neuropathy ch ronic March 26, 2024 1:48pm Encounter for chemotherapy management chronic March 26 1:48pm Major depressive disorder chronic March 26, 2024 1:48pm Oral leukoplakia chronic March 26, 2024 1:48pm 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 March 26 1:48pm Primary cancer of head of pancreas chronic March 26 1:48pm Hypokalemia due to excessive renal loss of potassium resolved March 26, 2024 1:48pm Hypomagnesemia resolved March 262024 1:48pm Infestation by bed bug resolved Carson baca 2024 1:48pm Odynophagia resolved March 26, 2024 1:48pm Tachypnea, not elsewhere classified resolved March 26 1:48pm Family history of pancreatic cancer inactive March 26 1:48pm History of hepatitis C inactive Carson baca 2024 1:48pm Neuropathy acute April 29, 2024 9:18am Cancer-related pain chronic Febru dante 2024 9:18am [facility] Work Phone: [phone]) 736-148110-28-2024 Evaluation + Plan note Future Scheduled Tests Laboratory* PSA Free & Total 01/06/24 [facility] 10-28-2024 Hospital Discharge instructions Patient Education 01/06/2024 11:54:15 Benign Prostatic Hyperplasia Benign Prostatic Hyperplasia Benign prostatic hyperplasia (BPH) is an enlarged prostate gland that is caused by the normal agingprocess. The prostate may get bigger as a man gets older. The condition is not caused by cancer. The prostate is a walnut-sized gland that is involved in the production of semen. It is located in front of the rectum and below the bladder. The bladder stores urine. The urethra carries stored urine ou t of the body. An enlarged prostate can press on the urethra. This can make it harder to pass urine. The buildup of urine in the bladder can cause infection. Back pressure and infection may progress to bladder damage and kidney (renal) failure. What are the causes? This condition is part of the normal aging process. However, not all men develop problems from thiscondition. If the prostate enlarges away from the urethra, urine flow will not be blocked. If it enlarges toward the urethra and compresses it, there will be problems passing urine. What increases the risk? This condition is more likely to develop in men older than 50 years. What are the signs or symptoms? Symptoms of this condition include: Getting up often during the night to urinate. Needing to urinate frequently during the day. Difficulty starting urine flow. Decrease in size and strength of your urine stream. Leaking (dribbling) after urinating. Inability to pass urine. This needs immediate treatment. Inability to completely empty your bladder. Pain when you pass urine. This is more common if there is also an infection. Urinary tract infection (UTI). How is this diagnosed? This condition is diagnosed based on your medical history, a physical exam, and your symptoms. Tests will also be done, such as: A post-void bladder scan. This measures any amount of urine that may remain in your bladder after you finish urinating. A digital rectal exam. In a rectal exam, your health care provider checks your prostate by putting a lubricated, gloved finger into your rectum to feel the back of your prostate gland. This exam detects the size of your gland and any abnormal lumps or growths. An exam of your urine (urinalysis). A prostate specific antigen (PSA) screening. This is a blood test used to screen for prostate cancer. An ultrasound. This test uses sound waves to electronically produce a picture of your prostate gland. Your health care provider may refer you to a specialist in kidney and prostate diseases (urologist). How is this treated? Once symptoms begin, your health care provider will monitor your condition (active surveillance or watchful waiting). Treatment for this condition will depend on the severity of your condition. Treatment may include: Observation and yearly exams. This may be the only treatment needed if your condition and symptoms are mild. Medicines to relieve your symptoms, including: ?Medicines to shrink the prostate. ?Medicines to relax the muscle of the prostate. Surgery in severe cases. Surgery may include: ?Prostatectomy. In this procedure, the prostate tissue is removed completely through an open incision or with a laparoscope or robotics. ?Transurethral resection of the prostate (TURP). In this procedure, a tool is inserted through the opening at the tip of the penis (urethra). It is used to cut away tissue of the inner core of the prostate. The pieces are removed through the same opening of the penis. This removes the blockage. ?Transurethral incision (TUIP). In this procedure, small cuts are made in the prostate. This lessens the prostate's pressure on the urethra. ?Transurethral microwave thermotherapy (TUMT). This procedure uses microwaves to create heat. The heat destroys and removes a small amount of prostate tissue. ?Transurethral needle ablation (TUNA). This procedure uses radio frequencies to destroy and remove a small amount of prostate tissue. ?Interstitial laser coagulation (ILC). This procedure uses a laser to destroy and remove a small amount of prostate tissue. ?Transurethral electrovaporization (TUVP). This procedure uses electrodes to destroy and remove a small amount of prostate tissue. ?Prostatic urethral lift. This procedure inserts an implant to push the lobes of the prostate away from the urethra. Follow these instructions at home: Take dvme-iif-fcisxsr and prescription medicines only as told by your health care provider. Monitor your symptoms for any changes. Contact your health care provider with any changes. Avoid drinking large amounts of liquid before going to bed or out in public. Avoid or reduce how much caffeine or alcohol you drink. Give yourself time when you urinate. Keep all follow-up visits. This is important. Contact a health care provider if: You have unexplained back pain. Your symptoms do not get better with treatment. You develop side effects from the medicine you are taking. Your urine becomes very dark or has a bad smell. Your lower abdomen becomes distended and you have trouble passing urine. Get help right away if: You have a fever or chills. You suddenly cannot urinate. You feel light-headed or very dizzy, or you faint. There are large amounts of blood or clots in your urine. Your urinary problems become hard to manage. You develop moderate to severe low back or flank pain. The flank is the side of your body between the ribs and the hip. These symptoms may be an emergency. Get help right away. Call 911. Do not wait to see if the symptoms will go away. Do not drive yourself to the hospital. Summary Benign prostatic hyperplasia (BPH) is an enlarged prostate that is caused by the normal aging process. It is not caused by cancer. An enlarged prostate can press on the urethra. This can make it hard to pass urine. This condition is more likely to develop in men older than 50 years. Get help right away if you suddenly cannot urinate. This information is not intended to replace advice given to you by your health care provider. Make sure you discuss any questions you have with your health care provider. Document Revised: 09/13/2021 Document Reviewed: 09/13/2021 [employer] Patient Education 2023 [employer]. 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 pt wouldlike to discuss enlarged prostate. Dysuria: _no Incomplete bladder emptying: _no Hematuria: _no Frequency: _q3-4 hrs Urgency: _no Nocturia: _0-1x Stream: _varies Leaking: _no Post void dripping: _no Wearing pads/ Depends: _no Urge incontinence: _no Stress incontinence: _no Incontinence without Sensory Awareness: _no Abdominal pain: _no Flank pain: _no Sexual complaints: _ History of Present Illness Staff HPI reviewed and agree. Review of Systems PHQ Score Initial Depression Screen Score: 0 SCORE no fever, chills, malaise, myalgia. no rash/lesions. no chest pain, palpitations, or SOB. no abdominal pain, nausea, vomiting. 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 Previous PRW pt. 11/19/23 - BUN 35, Cre 1.41, eGFR 54. Calculated CrCl 64 1. BPH with obstruction/lower urinary tract symptoms (N40.1: Benign prostatic hyperplasia with lower urinary tract symptoms) 05/07/17 cysto - prostatic urethra is obstructed, moderate hypertrophy, huge median lobe. Bladder severe trabeculations (3+), small mouth open tics, no bladder tumors UA today trace-intact blood, trace leuks PVR today 13ml IPSS 14 Pt here today with c/o urinary frequency and weak stream. Pt is currently taking Flomax 0.4mg daily. Pt reports that he urinates about every 4-5 hours but it is slow to start. Pt reports not drinkinga lot of fluids. Advised pt to increase his fluid intake and complete timed voiding. Pt reports that he has an enlarged prostate. I did not have previous records at time of office visit but previous c ysto findings reviewed. I did discuss increasing Flomax to BID, pt agreeable. Pt denies SEs. Also spoke with patient regarding completing cystoscopy prior to reviewing previous records and patient would like to proceed with this. Briefly discussed UroLift, Rezum and TURP with patient during office visit but advised him that Dr. Syed would review findings with him during cystoscopy. Pt verbalizes understanding. The risks and benefits for cystoscopy have been discussed. The risks include bleeding, infection, and irritation of the bladder and urinary channel, among others. The patient, after being informed ofprocedural details and after questions have been answered, wishes to proceed. Full informed consenthas been obtained. Will order Local anesthesia. -Schedule cystoscopy with Dr. Syed -Increase Flomax 0.4mg to BID -Increase fluids, avoid bladder irritants -Complete timed voids -F/U pending cystoscopy Ordered: E&M of New Patient Moderate 45-59 Min 52904 Urology Procedure Order 2. Screening PSA (prostate specific antigen) (Z12.5: Encounter for screening for malignant neoplasmof prostate) PSA: 12/07/16 - 2.9 05/06/17 - 1.9 09/01/19 - 3.9 03/01/22 - 5.0 09/10/23 - 3.6 Reviewed PSA level with patient. I did not have access to previous levels during office visit, but did advise patient the various causes of PSA elevation, including prostate cancer, prostate enlargement, infection of the prostate, inflammation without infection, as well as prostate manipulation. Discussed repeating PSA level in 6 months from previous with patient to monitor, patient agreeable. Results to be discussed at cystoscopy. -PSA level in February/March prior to cystoscopy [place] [facility] [place] -Will review results at cystoscopy -F/U pending cysto/results Ordered: E&M of New Patient Moderate 45-59 Min 72396 PSA Free & Total 3. Asymptomatic microscopic hematuria (R31.21: Asymptomatic microscopic hematuria) 11/19/23 CT abd/pelvis w/ con - punctate stone L lower pole, tiny renal cysts are noted, no hydronephrosis Pt had previous negative gross hematuria workup. Pt denies gross hematuria since that time. Discussed CT findings with patient, also scheduling for cysto based on BPH symptoms. -Call if patient experiences gross hematuria Ordered: E&M of New Patient Moderate 45-59 Min 49997 Urology Procedure Order 4. Kidney stones (N20.0: Calculus of kidney) 11/19/23 CT abd/pelvis w/ con - punctate stone L lower pole, tiny renal cysts are noted, no hydronephrosis Advised pt he has tiny stone in the L kidney currently. Pt reports many years ago he had ESWL for kidney stone treatment. He denies curre (more content not included)...[facility] CenterComment on above:Result Comment: Electronically Signed By: Donna Johnson.reshma\Date and Time Signed: 01/06/24 11:55 [id number] NotePatient Education Urology Benign Prostatic Hyperplasia Benign prostatic hyperplasia (BPH) is an enlarged prostate gland that is caused by the normal agingprocess. The prostate may get bigger as a man gets older. The condition is not caused by cancer. The prostate is a walnut-sized gland that is involved in the production of semen. It is located in front of the rectum and below the bladder. The bladder stores urine. The urethra carries stored urine ou t of the body. An enlarged prostate can press on the urethra. This can make it harder to pass urine. The buildup of urine in the bladder can cause infection. Back pressure and infection may progress to bladder damage and kidney (renal) failure. What are the causes? This condition is part of the normal aging process. However, not all men develop problems from thiscondition. If the prostate enlarges away from the urethra, urine flow will not be blocked. If it enlarges toward the urethra and compresses it, there will be problems passing urine. What increases the risk? This condition is more likely to develop in men older than 50 years. What are the signs or symptoms? Symptoms of this condition include: ??? Getting up often during the night to urinate. ??? Needing to urinate frequently during the day. ??? Difficulty starting urine flow. ??? Decrease in size and strength of your urine stream. ??? Leaking (dribbling) after urinating. ??? Inability to pass urine. This needs immediate treatment. ??? Inability to completely empty your bladder. ??? Pain when you pass urine. This is more common if there is also an infection. ??? Urinary tract infection (UTI). How is this diagnosed? This condition is diagnosed based on your medical history, a physical exam, and your symptoms. Tests will also be done, such as: ??? A post-void bladder scan. This measures any amount of urine that may remain in your bladder after you finish urinating. ??? A digital rectal exam. In a rectal exam, your health care provider checks your prostate by putting a lubricated, gloved finger into your rectum to feel the back of your prostate gland. This exam detects the size of your gland and any abnormal lumps or growths. ??? An exam of your urine (urinalysis). ??? A prostate specific antigen (PSA) screening. This is a blood test used to screen for prostate cancer. ??? An ultrasound. This test uses sound waves to electronically produce a picture of your prostate gland. Your health care provider may refer you to a specialist in kidney and prostate diseases (urologist). How is this treated? Once symptoms begin, your health care provider will monitor your condition (active surveillance or watchful waiting). Treatment for this condition will depend on the severity of your condition. Treatment may include: ??? Observation and yearly exams. This may be the only treatment needed if your condition and symptoms are mild. ??? Medicines to relieve your symptoms, including: ? Medicines to shrink the prostate. ? Medicines to relax the muscle of the prostate. ??? Surgery in severe cases. Surgery may include: ? Prostatectomy. In this procedure, the prostate tissue is removed completely through an open incision or with a laparoscope or robotics. ? Transurethral resection of the prostate (TURP). In this procedure, a tool is inserted through theopening at the tip of the penis (urethra). It is used to cut away tissue of the inner core of the prostate. The pieces are removed through the same opening of the penis. This removes the blockage. ? Transurethral incision (TUIP). In this procedure, small cuts are made in the prostate. This lessens the prostate's pressure on the urethra. ? Transurethral microwave thermotherapy (TUMT). This procedure uses microwaves to create heat. The heat destroys and removes a small amount of prostate tissue. ? Transurethral needle ablation (TUNA). This procedure uses radio frequencies to destroy and removea small amount of prostate tissue. ? Interstitial laser coagulation (ILC). This procedure uses a laser to destroy and remove a small amount of prostate tissue. ? Transurethral electrovaporization (TUVP). This procedure uses electrodes to destroy and remove a small amount of prostate tissue. ? Prostatic urethral lift. This procedure inserts an implant to push the lobes of the prostate awayfrom the urethra. Follow these instructions at home: ??? Take [id number] and prescription medicines only as told by your health care provider. ??? Monitor your symptoms for any changes. Contact your health care provider with any changes. ??? Avoid drinking large amounts of liquid before going to bed or out in public. ??? Avoid or reduce how much caffeine or alcohol you drink. ??? Give yourself time when you urinate. ??? Keep all follow-up visits. This is important. Contact a health care provider if: ??? You have unexplained back pain. ??? Your symptoms do not get (more content not included)...[facility] Evaluation + Plan note Diagnostic Tests Pending * PTH Intact 12/13/23 [facility] 10-02-2024 History of Present illness Narrative* Tiki Dockery DO - 12/11/2023 8:36 PM EDTAssociated Problem(s): Type 2 diabetes mellitus with peripheral neuropathy (CMS/HCC) During the appointment today all pertinent labs, imaging, health maintenance, and glucose readings were reviewed. Encouraged to check blood glucose throughout the day with some fasting and some PP readings. They are to bring their glucose meter/cgm in to all appointments. All of the patients questions, treatment options, and current care plan and goals were discussed. Acopy of this along with pertinent instructions were given to the patient at the end of the appointment. The patient voices understanding of all of this and is to call in between appointments if they have any problems or questions. Altagracia Conway control is stable overall. , The patient is wearing their cgm on a daily basis and making decisions in regards to adjusting insulin daily as well for at least the last 60 days , Instructed on the importance of taking insulin before eating. If it has been more than 30-45 min since eating they should not give the meal dose but should just give a correction insulin dose. , Instructions given today include: Insulin instructions and Dietary education. Will decrease tresiba and increase novolog for his meals. * Tiki Dockery DO - 12/10/2023 10:30 AM EDT Images from the original note were not included. Altagracia Conway is a 68 y.o. male presents with chief complaint of Diabetes HPI: Diabetes Mellitus Follow-up: Altagracia Conway is here for follow-up evaluation of diabetes mellitus. The initial diagnosis of diabetes was made in 2006 Diabetes complications: nephropathy, peripheral neuropathy, and impotence He has been checking his blood glucose with a Maya 3 Meter CGM on a daily basis. He is dropping low overnight occasionally and will rise when he eats but comes back down fairly quickly. 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 Anxiety Benign prostatic hyperplasia with lower urinary tract symptoms Chronic depression (CMS/HCC) Cirrhosis of liver without ascites (CMS/HCC) Type 2 diabetes mellitus with peripheral neuropathy (CMS/HCC) Erectile dysfunction Essential hypertension (CMS/HCC) Frequent falls GERD without esophagitis Status post amputation of great toe, right (CMS/HCC) Leukoplakia of oral mucosa and tongue Lung nodule TED (obstructive sleep apnea) Pancreatic insufficiency (CMS/HCC) Peripheral vascular disease (CMS/HCC) Pulmonary hypertension (CMS/HCC) Pure hypercholesterolemia (CMS/HCC) Simple chronic bronchitis (CMS/HCC) Stage 3a chronic kidney disease (HCC) (CMS/HCC) Venous insufficiency Vitamin D deficiency Chemotherapy-induced neuropathy (CMS/HCC) Current smoker Mixed conductive and sensorineural hearing loss of right ear History of malignant neoplasm of pancreas Chronic hepatitis C without hepatic coma (CMS/HCC) Congestive heart failure with left ventricular diastolic dysfunction, chronic (CMS/HCC) Type 2 diabetes mellitus with stage 3a chronic kidney disease, with long-term current use of insulin (HCC) (CMS/HCC) Hypoglycemic episode in patient with diabetes mellitus ([facility]) Positive colorectal cancer screening using Cologuard test Social History Tobacco Use Smoking status: Every Day Current packs/day: 0.50 Average packs/day: 0.5 packs/day for 58.8 years (29.4 ttl pk-yrs) Types: Cigarettes Start date: 1965 Smokeless tobacco: Never Tobacco comments: Smokes 1-6 cigs per day Vaping Use Vaping status: Never Used Substance Use Topics Alcohol use: Never Drug use: Yes Types: Marijuana Comment: marijuana-smokes Allergies Allergen Reactions Mixed Ragweed SEASONAL ALLERGIES Synopsis SmartLink Latest Ref Rng & Units 12/11/2023 00:00 12/10/2023 10:36 11/19/2023 08:54 Antidiabetic medications Insulin Aspart INJECT subq DIRECTED: 6 units breakfast, 6-8 units dinner plus correction 1:75 ifblood sugar above 150. (Max daily 30 units) (100 UNIT/ML SOPN)-Discontinued (Dose adjustm) INJECT subq DIRECTED: 6 units breakfast, 6- 8 units dinner plus correction 1:75 if blood sugar above 150. (Max daily 30 units) (100 UNIT/ML SOPN) INJECT subq DIRECTED: 6 units breakfast, 6-8 units dinnerplus correction 1:75 if blood sugar above 150. (Max daily 30 units) (100 UNIT/ML SOPN) No sig Insulin Aspart INJECT subq DIRECTED: 7 units breakfast, 7-10 units dinner plus correction 1:75 if blood sugar above 150. (Max daily 30 units) (100 UNIT/ML SOPN) Insulin Degludec 30 Units q AM SC-Discontinued (Dose adjustm) 30 Units q AM SC 30 Units q AM SC No sig Insulin Degludec 26 Units q AM SC Labs MHPT A1C 7.4 Creatinine 0.70 - 1.30 mg/dL 1.41 Outpatient prescription Medication marked as long-term REVIEW OF SYMPTOMS: Review of Systems Constitutional: Positive for fatigue. Negative for appetite change and unexpected weight change. Eyes: Negative for visual disturbance. Respiratory: Positive for shortness of breath. Negative for cough and wheezing. Cardiovascular: Negative for chest pain, palpitations and leg swelling. Musculoskeletal: Positive for arthralgias. Neurological: Positive for numbness. Endocrine: Negative for polydipsia, polyphagia and polyuria. OBJECTIVE: 12/10/2023 10:22 AM 11/26/2023 10:05 AM 10/24/2023 10:56 AM Vitals BMI 28.32 kg/m2 28.75 kg/m2 29.43 kg/m2 Systolic 126 120 104 Diastolic 62 68 52 Heart Rate 77 72 94 Temp 97.5 F 97 F 97.9 F Height (in) 6' 6' 6' Weight (lb) 208.8 212 217 Visit Report Report Report Report Physical Exam Constitutional: General: He is not in acute distress. Appearance: Normal appearance. Cardiovascular: Rate and Rhythm: Normal rate and regular rhythm. Heart sounds: No murmur heard. No friction rub. No gallop. Pulmonary: Breath sounds: Normal breath sounds. No wheezing, rhonchi or rales. Musculoskeletal: General: No swelling. Neurological: Mental Status: He is alert. ASSESSMENT AND PLAN: Problem List Items Addressed This Visit Anxiety Benign prostatic hyperplasia with lower urinary tract symptoms Chronic depression (CMS/HCC) Cirrhosis of liver without ascites (CMS/HCC) Type 2 diabetes mellitus with peripheral neuropathy (CMS/HCC) During the appointment today all pertinent labs, imaging, health maintenance, and glucose readings were reviewed. Encouraged to check blood glucose throughout the day with some fasting and some PP readings. They are to bring their glucose meter/cgm in to all appointments. All of the patients questions, treatment options, and current care plan and goals were discussed. Acopy of this along with pertinent instructions were given to the patient at the end of the appointment. The patient voices understanding of all of this and is to call in between appointments if they have any problems or questions. Altagracia Conway control is stable overall. , The patient is wearing their cgm on a daily basis and making decisions in regards to adjusting insulin daily as well for at least the last 60 days , Instructed on the importance of taking insulin before eating. If it has been more than 30-45 min since eating they should not give the meal dose but should just give a correction insulin dose. , Instructions given today include: Insulin instructions and Dietary education. Will decrease tresiba and increase novolog for his meals. Relevant Orders POCT glycosylated hemoglobin (Hb A1C) docked device (Completed) Essential hypertension (CMS/HCC) GERD without esophagitis Status post amputation of great toe, right (CMS/HCC) TED (obstructive sleep apnea) Pancreatic insufficiency (CMS/HCC) Peripheral vascular disease (CMS/HCC) Pulmonary hypertension (CMS/HCC) Pure hypercholesterolemia (CMS/HCC) Simple chronic bronchitis (CMS/HCC) Stage 3a chronic kidney disease (HCC) (CMS/HCC) Chemotherapy-induced neuropathy (CMS/HCC) - Primary History of malignant neoplasm of pancreas Chronic hepatitis C without hepatic coma (CMS/HCC) Congestive heart failure with left ventricular diastolic dysfunction, chronic (CMS/HCC) Type 2 diabetes mellitus with stage 3a chronic kidney disease, with long-term current use of insulin (HCC) (CMS/HCC) Relevant Medications insulin degludec (Tresiba FlexTouch) 100 UNIT/ML injection Other Visit Diagnoses Type 2 diabetes mellitus with diabetic polyneuropathy, with long-term current use of insulin (CMS/HCC) Relevant Medications insulin degludec (Tresiba FlexTouch) 100 UNIT/ML injection Type II diabetes mellitus with neurological manifestations (CMS/HCC) Relevant Medications insulin aspart (NovoLOG FLEXPEN) 100 UNIT/ML pen Follow up in about 3 months (around 03/11/2024) for Recheck. Patient's Medications New Prescriptions No medications on file Previous Medications ALBUTEROL HFA (VENTOLIN HFA) 90 MCG/ACT INHALER Inhale 2 puffs every 4 (four) hours if needed for wheezing or shortness of breath ASPIRIN 81 MG EC TABLET Take 81 mg by mouth in the morning. ATORVASTATIN (LIPITOR) 10 MG TABLET TAKE 1 TABLET BY MOUTH ONCE DAILY BD PEN NEEDLE JUAN 2ND GEN 32G X 4 MM [facility] [place]IRONE (BUSPAR) 30 MG TABLET Take 1 tablet (30 mg) by mouth at bedtime. CONTINUOUS BLOOD GLUC DOOR HANGER (FREESTYLE MAYA 3 READER) DEVICE 1 each See administration instructions CONTINUOUS GLUCOSE SENSOR (FREESTYLE MAYA 3 PLUS SENSOR) MISC 1 each every 14 (fourteen) days CONTINUOUS GLUCOSE SENSOR (FREESTYLE MAYA 3 SENSOR) MIS Inject 1 Device under the skin every 14 (fourteen) days DOXEPIN (SINEQUAN) 100 MG CAPSULE Take 100 mg by mouth at bedtime FETZIMA 80 MG EXTENDED RELEASE CAPSULE Take 80 mg by mouth Daily FUROSEMIDE (LASIX) 20 MG TABLET Take 1 tablet (20 mg) by mouth Daily GNP VITAMIN D MAXIMUM STRENGTH 50 MCG (2000 UT) TABLET TAKE 1 TABLET BY MOUTH ONCE DAILY LISINOPRIL 10 MG TABLET Take 1 tablet (10 mg) by mouth Daily LORAZEPAM (ATIVAN) 1 MG TABLET Take 1 tablet (1 mg) by mouth at bedtime 1 tablet at hs MIRTAZAPINE (REMERON) 45 MG TABLET Take 1 tablet (45 mg) by mouth at bedtime ONDANSETRON ODT (ZOFRAN-ODT) 8 MG DISINTEGRATING TABLET Take 1 tablet (8 mg) by mouth every 8 (eight) hours if needed for nausea or vomiting ONETOUCH VERIO TEST STRIP USE DIRECTED TO test fasting blood sugars 3 TIMES DAILY OXYCODONE (ROXICODONE) 10 MG IMMEDIATE RELEASE TABLET Take 10 mg by mouth PANCRELIPASE, [id number], (CREON) [id number] UNITS CAPSULE DELAYED-RELEASE PARTICLES CAPSULE Take 2 capsules by mouth in the morning and 2 capsules in the evening and 2 capsules before bedtime. PREGABALIN (LYRICA) 150 MG CAPSULE Take 1 capsule (150 mg) by mouth in the morning and 1 capsule (150 mg) before bedtime. SILDENAFIL (VIAGRA) 100 MG TABLET Take 1 tablet (100 mg) by mouth Daily as needed for erectile dysfunction TAMSULOSIN (FLOMAX) 0.4 MG 24 HR CAPSULE TAKE 1 CAPSULE BY MOUTH ONCE DAILY Modified Medications Modified Medication Previous Medication INSULIN ASPART (NOVOLOG FLEXPEN) 100 UNIT/ML PEN insulin aspart (NovoLOG FLEXPEN) 100 UNIT/ML pen INJECT subq DIRECTED: 7 units breakfast, 7-10 units dinner plus correction 1:75 if blood sugar above 150. (Max daily 30 units) INJECT subq DIRECTED: 6 units breakfast, 6-8 units dinner plus correction 1:75 if blood sugar above 150. (Max daily 30 units) INSULIN DEGLUDEC (TRESIBA FLEXTOUCH) 100 UNIT/ML INJECTION insulin degludec (Tresiba FlexTouch) 100UNIT/ML injection Inject 26 Units under the skin in the morning. Inject 30 Units under the skin in the morning. Discontinued Medications CLINDAMYCIN (CLEOCIN) 300 MG CAPSULE Every 6 hours PANTOPRAZOLE (PROTONIX) 40 MG EC TABLET Take 1 tablet (40 mg) by mouth in the morning. Take before meals. I have reviewed and reconciled the history and medication list with the patient today. documented in this encounterUniversity Health Lakewood Medical [id number] History of Present illness Narrative* Tiki Dockery, DO - 11/26/2023 10:00 AM EDT Altagracia Conway is a 68 y.o. male presents with chief complaint of ER Follow-up HPI: HPI Pt went to [facility] ER 11/21/23 for a painful abscess/cyst in right lower groin/scrotum area. I&D was performed, and pt was discharged home with clindamycin 300mg QID x 10 days. Pt states abscess/cyst is almost gone. Was not referred to anyone to have abscess/cyst removed. Denies pain at this time. Has a few more days left of Clindamycin. He is not sure of the cause of the abscess. Was already draining when he went to the ER so they really didn't open it much. States they didn't get much pus out of it. Still having some mild drainage out of the area but states it is much smaller than it was. Not having any stomach issues with clindamycin. Not taking any probiotics. SUBJECTIVE: See medication list at the end of the note. Allergies Allergen Reactions Mixed Ragweed SEASONAL ALLERGIES REVIEW OF SYMPTOMS: Review of Systems Constitutional: Negative for chills and fever. Skin: Positive for wound. OBJECTIVE: 11/26/2023 10:05 AM 10/24/2023 10:56 AM 09/09/2023 10:20 AM Vitals BMI 28.75 kg/m2 29.43 kg/m2 29.92 kg/m2 Systolic 120 104 126 Diastolic 68 52 64 Heart Rate 72 94 76 Temp 97 F 97.9 F 96 F Height (in) 6' 6' 6' Weight (lb) 212 217 220.6 Visit Report Report Report Report Physical Exam Constitutional: Appearance: Normal appearance. Skin: Findings: Lesion present. Comments: Abscess in the right groin. Small amt of serosanguinous drainage out of this. No fluctuance ASSESSMENT AND PLAN: Problem List Items Addressed This Visit Erectile dysfunction - Primary Relevant Medications sildenafil (Viagra) 100 MG tablet Other Visit Diagnoses Abscess Doing well with abscess and it is decreasing in size. Recommend warm compresses to help with any residual infection. He is to finish the abx. Recommend taking a probiotic as that abx has a high risk for C diff colitis. He is to call if any significant diarrhea. Follow up for Next scheduled follow-up. Patient's Medications New Prescriptions SILDENAFIL (VIAGRA) 100 MG TABLET Take 1 tablet (100 mg) by mouth Daily as needed for erectile dysfunction Previous Medications ALBUTEROL HFA (VENTOLIN HFA) 90 MCG/ACT INHALER Inhale 2 puffs every 4 (four) hours if needed for wheezing or shortness of breath ASPIRIN 81 MG EC TABLET Take 81 mg by mouth in the morning. ATORVASTATIN (LIPITOR) 10 MG TABLET TAKE 1 TABLET BY MOUTH ONCE DAILY BD PEN NEEDLE JUAN 2ND GEN 32G X 4 MM MISC BUSPIRONE (BUSPAR) 30 MG TABLET Take 1 tablet (30 mg) by mouth at bedtime. CLINDAMYCIN (CLEOCIN) 300 MG CAPSULE Every 6 hours CONTINUOUS BLOOD GLUC DOOR HANGER (FREESTYLE MAYA 3 READER) DEVICE 1 each See administration instructions CONTINUOUS GLUCOSE SENSOR (FREESTYLE MAYA 3 PLUS SENSOR) MISC 1 each every 14 (fourteen) days CONTINUOUS GLUCOSE SENSOR (FREESTYLE MAYA 3 SENSOR) MISC Inject 1 Device under the skin every 14 (fourteen) days DOXEPIN (SINEQUAN) 100 MG CAPSULE Take 100 mg by mouth at bedtime FETZIMA 80 MG EXTENDED RELEASE CAPSULE Take 80 mg by mouth Daily FUROSEMIDE (LASIX) 20 MG TABLET Take 1 tablet (20 mg) by mouth Daily GNP VITAMIN D MAXIMUM STRENGTH 50 MCG (2000 UT) TABLET TAKE 1 TABLET BY MOUTH ONCE DAILY INSULIN ASPART (NOVOLOG FLEXPEN) 100 UNIT/ML PEN INJECT subq DIRECTED: 6 units breakfast, 6-8 units dinner plus correction 1:75 if blood sugar above 150. (Max daily 30 units) INSULIN DEGLUDEC (TRESIBA FLEXTOUCH) 100 UNIT/ML INJECTION Inject 30 Units under the skin in the morning. LISINOPRIL 10 MG TABLET Take 1 tablet (10 mg) by mouth Daily LORAZEPAM (ATIVAN) 1 MG TABLET Take 1 tablet (1 mg) by mouth at bedtime 1 tablet at hs MIRTAZAPINE (REMERON) 45 MG TABLET Take 1 tablet (45 mg) by mouth at bedtime ONDANSETRON ODT (ZOFRAN-ODT) 8 MG DISINTEGRATING TABLET Take 1 tablet (8 mg) by mouth every 8 (eight) hours if needed for nausea or vomiting ONETOUCH VERIO TEST STRIP USE DIRECTED TO test fasting blood sugars 3 TIMES DAILY OXYCODONE (ROXICODONE) 10 MG IMMEDIATE RELEASE TABLET Take 10 mg by mouth PANCRELIPASE, [id number], (CREON) [id number] UNITS CAPSULE DELAYED-RELEASE PARTICLES CAPSULE Take 2 capsules by mouth in the morning and 2 capsules in the evening and 2 capsules before bedtime. PANTOPRAZOLE (PROTONIX) 40 MG EC TABLET Take 1 tablet (40 mg) by mouth in the morning. Take before meals. PREGABALIN (LYRICA) 150 MG CAPSULE Take 1 capsule (150 mg) by mouth in the morning and 1 capsule (150 mg) before bedtime. TAMSULOSIN (FLOMAX) 0.4 MG 24 HR CAPSULE TAKE 1 CAPSULE BY MOUTH ONCE DAILY Modified Medications No medications on file Discontinued Medications LEVOMILNACIPRAN (FETZIMA) 20 MG EXTENDED RELEASE CAPSULE Take 20 mg by mouth in the morning. Take with 40mg (Total=60mg). I have reviewed and reconciled the history and medication list with the patient today. documented in this encounterUniversity Health Lakewood Medical [id number] NoteMicrobiology PROCEDURE: Blood Culture Charcoal [R1] SOURCE: Blood BODY SITE: Arm L COLLECTED DATE/TIME: 10/06/2023 08:15 EDT RECEIVED DATE/TIME: 10/06/2023 10:46 EDT START DATE/TIME: 10/06/2023 10:46 EDT FREE TEXT SOURCE: lt ac JV AGPCNP, JV AGPCNP, Kathi Kathi FINAL REPORTS Final Report [] Verified Date/Time: 10/13/2023 12:00 EDT No growth at 7 days. Performing Locations R1: This test was performed at: [facility], [address] [place] [address], [id number] , , FojmocUniversity Hospitals Lake West Medical CenterComment on above:Performed By: #### [id number] #### [facility] [address] [place] [address] [id number] NoteMicrobiology PROCEDURE: Blood Culture Charcoal [R1] SOURCE: Blood BODY SITE: COLLECTED DATE/TIME: 10/06/2023 08:18 EDT RECEIVED DATE/TIME: 10/06/2023 10:46 EDT START DATE/TIME: 10/06/2023 10:46 EDT FREE TEXT SOURCE: PORT JV AGPCNP, JV AGPCNP, Kathi Armenta FINAL REPORTS Final Report [] Verified Date/Time: 10/13/2023 12:00 EDT No growth at 7 days. Performing Locations R1: This test was performed at: [facility], [address] [place] [address], [id number] , , IjlxcoUniversity Hospitals Lake West Medical CenterComment on above:Performed By: #### [id number] #### [facility] [address] [place] [address] [id number] NoteProgress Note-Physician Assessment/Plan PLAN: 1. Acute respiratory failure with hypoxia (J96.01: Acute respiratory failure with hypoxia) w/hypoxia/hypercapnia weaned Procal ++ ? infectious process Azithromycin /Ceftriaxone Blood cx posisitve. See #4 -sputum/Urine prelim neg Supplemental Oxygen 2. COPD exacerbation (J44.1: Chronic obstructive pulmonary disease with (acute) exacerbation) Suspect underlying COPD and Asthma hx Smoker and hx stable 5mm ABE nodule per CTA chest 01/2023 Methylprednisolone IV Med Nebs/flutter/IS/Mucinex Tessalon Perles prn Azithromycin as above. 3. Sepsis (A41.9: Sepsis, unspecified organism) Was likely present on admission and not showing. ? if related to prior admission. Leukocytosis w/left shift, bacteremia, w/tachycardia, fevers and tachypnea on admission Vanc/Zosyn See #4 recent hospitalization on 09/18- 09/21/2023 for Proctocolitis w/GI bleed was on vanc/zosyn at that time. Hx Hep C followed by [facility] WBC at that time was 19.9 trended down to 10.7 by d/c-was sent out on Cipro/Flagyl 4. Bacteremia (R78.81: Bacteremia) 4/4 blood cultures showing GNR cx not showing ??? right aram cath ??? Repeat blood cx (port included) 10/05 UA negative. Sputum cx pending. Ceftriaxone 2gram daily Vanc added today. Consult ID -pending 4. History of pancreatic cancer (Z85.07: Personal history of malignant neoplasm of pancreas) -Port in chest wall--consider source of infection. -Continue to follow up w/Oncology Creon, Lyrica, Oxycodone. Prior CT abd/pelvis 09/19/23 showing circumferential wall thickening of the splenic flexure, descending and rectosigmoid colon w/mild surrounding inflammation. 5. CKD (chronic kidney disease), stage III (N18.30: Chronic kidney disease, stage 3 unspecified) CR trends 1.6-1.7 which pt is currently at baseline. CR 1.3 today. Hold Lasix for now and avoid nephrotoxic meds. 6. DM2 (diabetes mellitus, type 2) (E11.9: Type 2 diabetes mellitus without complications) AccuChecks AC/HS w/ss insulin Typically take long acting insulin 30 units daily was on 20 but inpt will increase to 25 units today. and adjust as needed. 7. HTN (hypertension) (I10: Essential (primary) hypertension) Amlodipine Hold Lasix for now. Hydralazine for SBP 160 prn 8. Hyperlipidemia (E78.5: Hyperlipidemia, unspecified) Statin 9. Anxiety and depression (F41.9: Anxiety disorder, unspecified) Buspirone, Fetzima Ativan at HS 3. Smoker (F17.200: Nicotine dependence, unspecified, uncomplicated) [employer] on cessation Nicotine patch 10. On deep vein thrombosis (DVT) prophylaxis (Z79.899: Other emt intermediate (current) drug therapy) SCDs/Heparin Subjective pt seen at bedside this morning. States he didn't sleep well last night. States he is used to usingcannabis along w/home meds to sleep. Feels he needs something more to help sleep tonight. Denies CP. No pain at port site. SOB has improved. Discussed positive blood culture results, CT results andPOC. Echo pending. Objective Vitals & Measurements T: 36.4 ?C(Oral) TMIN: 36.3 ?C(Oral) TMAX: 36.7 ?C(Axillary) HR: 88(Monitored) RR: 16 BP: 160/76 SpO2: 98% WT: 97.3 kg Intake & Output This visit (24 hour periods starting at 07:00 EDT) 10/07/23 * 10/06/23 10/05/23 Total Summary Intake mL 51 1,075.99 1,394.26 Output mL -- -- -- Fluid Balance 51 1,075.99 1,394.26 Intake (6) Generic Diluent, vancomycin mL -- 300 -- Oral Intake mL -- 360 550 Sodium Chloride 0.9% intravenous solution 1,000 mL mL -- 113.99 842.26 Sodium Chloride 0.9%, azithromycin mL -- 250 -- Sodium Chloride 0.9%, ceftriaxone mL 50 50 -- methylPREDNISolone mL 1 2 2 Total 51 1,075.99 1,394.26 Output (0) Counts (1) Urine Count -- 2 3 * This column has not completed the indicated time period. Physical Exam General: NAD Skin: warm, dry, intact. Right chest aram cath. no erythema noted . no streaks or drainage noted around site. no pain. Head: no trauma, normocephalic Neck: Trachea midline, no adenopathy, no tenderness Eye: normal conjunctiva, sclera clear ENMT: oral mucosa moist, no pharyngeal erythema or exudate. hearing grossly intact Cardiovascular: regular rate and rhythm, no murmur/gallop/rub Respiratory: Clear to upper lobes w/diminished bases. no wheezes, no rhonchi, no rales Gastrointestinal: Positive bowel sound, soft, non distended, no tenderness, no guarding. Extremities: no deformity, no trauma Neurological: oriented x 4, LOC appropriate for age, CN II-XII intact, motor strength equal & normal bilaterally, sensation equal & normal bilaterally, speech normal Psychiatric: cooperative, affect appropriate for age, normal judgement, normal psychiatric thoughts Lab Results WBC: 14.8 E9/L High (10/07/23 04:59:00) RBC: 3.3 E12/L Low (10/07/23 04:59:00) HGB: 10.1 gm/dL Low (10/07/23 04:59:00) Hct: 29.8 % Low (10/07/23 04:59:00) MCV: 89.5 fL (more content not included)...[facility] CenterComment on above:Result Comment: Electronically Signed By: Kathi LOVELL\.br\Date and Time Signed: 10/07/23 12:49 EDT\.br\Electronically Co- Signed By: John Livingston MD\.br\Date and Time Co-Signed:10/09/23 19:00 [id number] NoteProgress Note-Physician Assessment/Plan PLAN: 1. Acute respiratory failure with hypoxia (J96.01: Acute respiratory failure with hypoxia) w/hypoxia/hypercapnia weaned Procal ++ ? infectious process Azithromycin /Ceftriaxone Blood cx positive. See #4 -sputum/Urine prelim neg Supplemental Oxygen 2. COPD exacerbation (J44.1: Chronic obstructive pulmonary disease with (acute) exacerbation) Suspect underlying COPD and Asthma hx Smoker and hx stable 5mm ABE nodule per CTA chest 01/2023 Methylprednisolone IV Med Nebs/flutter/IS/Mucinex Tessalon Perles prn Azithromycin as above. 3. Sepsis (A41.9: Sepsis, unspecified organism) Was likely present on admission and not showing. ? if related to prior admission. Leukocytosis w/left shift, bacteremia, w/tachycardia, fevers and tachypnea on admission Vanc/Zosyn See #4 recent hospitalization on 09/18- 09/21/2023 for Proctocolitis w/GI bleed was on vanc/zosyn at that time. Hx Hep C followed by [facility] WBC at that time was 19.9 trended down to 10.7 by d/c-was sent out on Cipro/Flagyl 4. Bacteremia (R78.81: Bacteremia) / blood cultures showing GNR cx not showing ??? right aram cath ??? Repeat blood cx (port included) 10/05 UA negative. Sputum cx pending. Ceftriaxone 2gram daily Vanc dc'd Consult ID -appreciated. 4. History of pancreatic cancer (Z85.07: Personal history of malignant neoplasm of pancreas) -Port in chest wall--consider source of infection. -Continue to follow up w/Oncology Creon, Lyrica, Oxycodone. Prior CT abd/pelvis 09/19/23 showing circumferential wall thickening of the splenic flexure, descending and rectosigmoid colon w/mild surrounding inflammation. 5. CKD (chronic kidney disease), stage III (N18.30: Chronic kidney disease, stage 3 unspecified) CR trends 1.6-1.7 which pt is currently at baseline. CR 1.3 today. Hold Lasix for now and avoid nephrotoxic meds. 6. DM2 (diabetes mellitus, type 2) (E11.9: Type 2 diabetes mellitus without complications) AccuChecks AC/HS w/ss insulin Typically take long acting insulin 30 units daily was on 20 but inpt will increase to 25 units today. and adjust as needed. 7. HTN (hypertension) (I10: Essential (primary) hypertension) Amlodipine Hold Lasix for now. Hydralazine for SBP 160 prn 8. Hyperlipidemia (E78.5: Hyperlipidemia, unspecified) Statin 9. Anxiety and depression (F41.9: Anxiety disorder, unspecified) Buspirone, Fetzima Ativan at HS 3. Smoker (F17.200: Nicotine dependence, unspecified, uncomplicated) [employer] on cessation Nicotine patch 10. On deep vein thrombosis (DVT) prophylaxis (Z79.899: Other halfway (current) drug therapy) SCDs/Heparin Subjective Seen at bedside this morning. States he is feeling much better. No fevers or chills at this point. Pending ID consult today. Patient's abdominal symptoms have improved. He denies chest pain, shortness of breath. Awaiting final blood cultures which were from port prior to discharge. If these remain negative will discharge home tomorrow. Objective Vitals & Measurements T: 36.4 ?C(Axillary) TMIN: 36.4 ?C(Axillary) TMAX: 36.8 ?C(Oral) HR: 89(Monitored) RR: 18 BP: 171/84 SpO2: 99% WT: 97.7 kg Intake & Output This visit (24 hour periods starting at 07:00 EDT) 10/08/23 * 10/07/23 10/06/23 Total Summary Intake mL 121 782.57 1,075.99 Output mL -- -- -- Fluid Balance 121 782.57 1,075.99 Intake (7) Generic Diluent, vancomycin mL -- 300.57 300 Oral Intake mL 120 425 360 Sodium Chloride 0.9% intravenous solution 1,000 mL mL -- -- 113.99 Sodium Chloride 0.9%, azithromycin mL -- -- 250 Sodium Chloride 0.9%, ceftriaxone mL -- 50 50 heparin flush mL -- 5 -- methylPREDNISolone mL 1 2 2 Total 121 782.57 1,075.99 Output (0) Counts (1) Urine Count 1 4 2 * This column has not completed the indicated time period. Physical Exam General: NAD Skin: warm, dry, intact. Right chest aram cath. no erythema noted . no streaks or drainage noted around site. no pain. Head: no trauma, normocephalic Neck: Trachea midline, no adenopathy, no tenderness Eye: normal conjunctiva, sclera clear ENMT: oral mucosa moist, no pharyngeal erythema or exudate. hearing grossly intact Cardiovascular: regular rate and rhythm, no murmur/gallop/rub Respiratory: Clear to upper lobes w/diminished bases. no wheezes, no rhonchi, no rales Gastrointestinal: Positive bowel sound, soft, non distended, no tenderness, no guarding. Extremities: no deformity, no trauma Neurological: oriented x 4, LOC appropriate for age, CN II-XII intact, motor strength equal & normal bilaterally, sensation equal & normal bilaterally, speech normal Psychiatric: cooperative, affect appropriate for age, normal judgement, normal psychiatric thoughts Lab Results WBC: 10.4 E9/L (10/08/23 04:25:00) RBC: 3.5 E12/L Low (10/08/23 04:25:00) HGB: 10.9 gm/dL Low (10/08/23 04:25:00) Hct: 3 (more content not included)...[facility] CenterComment on above:Result Comment: Electronically Signed By: Kathi LOVELL\.br\Date and Time Signed: 10/08/23 13:26 EDT\.br\Electronically Co- Signed By: Kathi LOVELL\.br\Date and Time Co-Signed: 10/08/23 13:29 EDT\.br\Electronically Co-Signed By: John Livingston MD\.br\Date and Time Co-Signed: 10/09/23 19:00 [id number] NoteDischarge Summary Admission and Discharge Information Admit Date/Time:10/05/2023 02:42 Admitting Physician - Nereida CA DO Consulting Physician - Leonides Bruce M.D Admitting Diagnoses: Discharge Order Date Discharge Patient - Ordered -- 10/09/23 12:26:00 EDT Discharge Diagnoses 1. Sepsis, 10/06/2023 2. Acute respiratory failure with hypoxia, 10/05/2023 3. COPD exacerbation, 10/05/2023 4. Smoker, 10/05/2023 5. Bacteremia, 10/06/2023 6. History of pancreatic cancer, 10/05/2023 7. CKD (chronic kidney disease), stage III, 10/05/2023 8. DM2 (diabetes mellitus, type 2), 10/05/2023 9. HTN (hypertension), 10/05/2023 10. Hyperlipidemia, 10/05/2023 11. Anxiety and depression, 10/05/2023 12. 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 Hospital Course 68-year-old male who presented to the hospital with acute hypoxic/hypercapnic respiratoryfailure with positive procalcitonin level secondary to acute exacerbation of COPD, asthma, smoker. Patient was started on IV azithromycin, ceftriaxone blood, sputum and urine cultures were obtained on admission.. Patient was found to be septic on admission which did not present itself till patient was treated. Patient did have leukocytosis with bacteremia, tachycardia, fevers and tachypnea. Patient was transitioned then to IV vancomycin and Zosyn. Did have a recent hospitalization on 09/18- 09/21/2023 for Proctocolitis w/GI bleed was on vanc/zosyn at that time. Hx Hep C followed by [facility] WBC at that time was 19.9 trended down to 10.7 by d/c-was sent out on Cipro/Flagyl. Blood cultures on admission returned +/ which grew E. coli. CT of the abdomen and pelvis was obtained at that time to assess for unresolved pancolitis however returned negative. Repeat blood cultures were obtained. There was concern for right Port-A-Cath infection so I&D was consulted. Patient was seen by Dr. Bruce on 10/07 who believes E. coli transiently get into bloodstream during episode of colitis. Was recommended that patient finish 2-week treatment course from first set of negative blood cultures this admission. Patient will continue IV ceftriaxone until 10/19. Patient will undergo antibiotic infusions at the infusion center. Prescriptions were written with flushes and sent with business case analyst. Today on exam patient is doing well. Vitals labs are stable. Patient's breathing has improved sinceadmission. Patient's blood sugars have been intermittently elevated due to steroids. Patient is currently on a steroid taper. Patient will discharge home today in stable condition. Case was discussedwith Dr. Livingston is in agreement with current discharge plan. Services Consulted Consult to Infectious Disease Physician - Ordered -- 10/07/23 12:45:00 EDT, sepsis bacteremia ? source, Consult and Co-manage Physical Exam Vitals & Measurements T: 36.8 ?C(Axillary) TMIN: 36.5 ?C(Oral) TMAX: 36.8 ?C(Axillary) HR: 92(Monitored) RR: 18 BP: 164/92 SpO2: 96% WT: 96.7 kg General: NAD Skin: warm, dry, intact. Right chest aram cath. no erythema noted . no streaks or drainage noted around site. no pain. Head: no trauma, normocephalic Neck: Trachea midline, no adenopathy, no tenderness Eye: normal conjunctiva, sclera clear ENMT: oral mucosa moist, no pharyngeal erythema or exudate. hearing grossly intact Cardiovascular: regular rate and rhythm, no murmur/gallop/rub Respiratory: Clear to upper lobes w/diminished bases. no wheezes, no rhonchi, no rales Gastrointestinal: Positive bowel sound, soft, non distended, no tenderness, no guarding. Extremities: no deformity, no trauma Neurological: oriented x 4, LOC appropriate for age, CN II-XII intact, motor strength equal & normal bilaterally, sensation equal & normal bilaterally, speech normal Psychiatric: cooperative, affect appropriate for age, normal judgement, normal psychiatric thoughts Tests Performed CT Abdomen/Pelvis w/ Contrast CTA Chest Echo Transthoracic Complete XR Chest Single View Discharge Plan Discharge Disposition Discharge To, Anticipated II - Home with responsible caregiver Discharged to - Home independently Discharge Diet Discharge Diet(s): Calorie Controlled- 1800 Calorie Diet (10/09/23 10:26:00) Discharge Medication List Prescriptions cefTRIAXone 1 g intravenous injection, 1 gm= 1 EA, IV Piggyback, q24hr predniSONE 10 mg Tab, 1 -, Oral, As Directed S.A.S.H (SALINE, ADMINISTRATION OF DRUG, SALINE, HEPARIN), 0 Home Adult Aspirin 81 mg oral tablet, chewable, 81 mg= 1 tab(s), Chewed, Daily amLODIPine 10 mg Tab, 10 mg= 1 tab(s), Oral, Daily Ativan 1 mg Tab, 1 mg= 1 tab(s), Oral, Bedtime atorvastatin 10 mg Tab, 10 mg= 1 tab(s), Oral, Daily Breo Ellipta 100 mcg-25 mcg inhalation powder, 1 puff(s (more content not included)...[facility] CenterComment on above:Result Comment: Electronically Signed By: Kathi LOVELL\.br\Date and Time Signed: 10/09/23 12:36 EDT\.br\Electronically Co-Signed By: John Livingston MD\.br\Date and Time Co-Signed:10/09/23 18:59 [id number] Evaluation + Plan noteExtracted from: Title:Discharge Note Author:Isacc LOVELL Date:10/09/23 Discharge To, Anticipated II - Home with responsible caregiver Discharged to - Home independently Discharge Diet(s): Calorie Controlled- 1800 Calorie Diet (10/09/23 10:26:00) Prescriptions cefTRIAXone 1 g intravenous injection, 1 gm= 1 EA, IV Piggyback, q24hr predniSONE 10 mg Tab, 1 -, Oral, As Directed S.A.S.H (SALINE, ADMINISTRATION OF DRUG, SALINE, HEPARIN), 0 Home Adult Aspirin 81 mg oral tablet, chewable, 81 mg= 1 tab(s), Chewed, Daily amLODIPine 10 mg Tab, 10 mg= 1 tab(s), Oral, Daily Ativan 1 mg Tab, 1 mg= 1 tab(s), Oral, Bedtime atorvastatin 10 mg Tab, 10 mg= 1 tab(s), Oral, Daily Breo Ellipta 100 mcg-25 mcg inhalation powder, 1 puff(s), Inhalation, Daily busPIRone 30 mg oral tablet, 30 mg= 1 tab(s), Oral, Bedtime Creon 36,000 units oral delayed release capsule, 2 cap(s), Oral, TIDWM doxepin 100 mg Cap, 100 mg= 1 cap(s), Oral, Once a day (at bedtime) Fetzima 40 mg oral capsule, extended release, See Instructions furosemide 20 mg Tab, 20 mg= 1 tab(s), Oral, Daily insulin aspart 100 units/mL injectable solution, 8 unit(s), SubCutaneous, Daily insulin aspart 100 units/mL injectable solution, 8-12 unit(s), SubCutaneous, Supper insulin degludec 100 units/mL subcutaneous solution, 30 unit(s), SubCutaneous, Daily lisinopril 10 mg Tab, 10 mg= 1 tab(s), Oral, Daily mirtazapine 45 mg oral tablet, 45 mg= 1 tab(s), Oral, Once a day (at bedtime) ondansetron 8 mg Dis Tab, 8 mg= 1 tab(s), Oral, q8hr, PRN oxycodone 10 mg oral tablet, 10 mg= 1 tab(s), Oral, QID, PRN Pantoprazole [address] Tab, 40 mg= 1 tab(s), Oral, Daily pregabalin 150 mg Cap, 150 mg= 1 cap(s), Oral, BID tamsulosin 0.4 mg Cap, 0.4 mg= 1 cap(s), Oral, Daily Ventolin HFA 90 mcg/inh Aerosol-Adpt, 1 puff(s), Inhalation, q4hr, PRN Vitamin D3 2000 intl units oral Tab, 50 mcg, Oral, Daily With When Contact Information TIKI DOCKERY [address], [facility] [address] [id number]- [facility] (1) Additional Instructions: Call for followup appointment Bacteremia, Adult Sepsis, Self Care, Adult Extracted from: Title:APSO Note Author:Kathy LOVELL Date:10/08/23 PLAN: 1. Acute respiratory failure with hypoxia (J96.01: Acute respiratory failure with hypoxia) w/hypoxia/hypercapnia weaned Procal ++ ? infectious process Azithromycin /Ceftriaxone Blood cx positive. See #4 -sputum/Urine prelim neg Supplemental Oxygen 2. COPD exacerbation (J44.1: Chronic obstructive pulmonary disease with (acute) exacerbation) Suspect underlying COPD and Asthma hx Smoker and hx stable 5mm ABE nodule per CTA chest 01/2023 Methylprednisolone IV Med Nebs/flutter/IS/Mucinex Tessalon Perles prn Azithromycin as above. 3. Sepsis (A41.9: Sepsis, unspecified organism) Was likely present on admission and not showing. ? if related to prior admission. Leukocytosis w/left shift, bacteremia, w/tachycardia, fevers and tachypnea on admission Vanc/Zosyn See #4 recent hospitalization on 09/18- 09/21/2023 for Proctocolitis w/GI bleed was on vanc/zosyn at that time. Hx Hep C followed by [facility] WBC at that time was 19.9 trended down to 10.7 by d/c-was sent out on Cipro/Flagyl 4. Bacteremia (R78.81: Bacteremia) 06/12 blood cultures showing GNR cx not showing ??? right aram cath ??? Repeat blood cx (port included) 10/05 UA negative. Sputum cx pending. Ceftriaxone 2gram daily Vanc dc'd Consult ID -appreciated. 4. History of pancreatic cancer (Z85.07: Personal history of malignant neoplasm of pancreas) -Port in chest wall--consider source of infection. -Continue to follow up w/Oncology Ruby Patel Oxycodone. Prior CT abd/pelvis 09/19/23 showing circumferential wall thickening of the splenic flexure, descending and rectosigmoid colon w/mild surrounding inflammation. 5. CKD (chronic kidney disease), stage III (N18.30: Chronic kidney disease, stage 3 unspecified) CR trends 1.6-1.7 which pt is currently at baseline. CR 1.3 today. Hold Lasix for now and avoid nephrotoxic meds. 6. DM2 (diabetes mellitus, type 2) (E11.9: Type 2 diabetes mellitus without complications) AccuChecks AC/HS w/ss insulin Typically take long acting insulin 30 units daily was on 20 but inpt will increase to 25 units today. and adjust as needed. 7. HTN (hypertension) (I10: Essential (primary) hypertension) Amlodipine Hold Lasix for now. Hydralazine for SBP 160 prn 8. Hyperlipidemia (E78.5: Hyperlipidemia, unspecified) Statin 9. Anxiety and depression (F41.9: Anxiety disorder, unspecified) Buspirone, Fetzima Ativan at HS 3. Smoker (F17.200: Nicotine dependence, unspecified, uncomplicated) [employer] on cessation Nicotine patch 10. On deep vein thrombosis (DVT) prophylaxis (Z79.899: Other halfway (current) drug therapy) SCDs/Heparin Extracted from: Title:Infection Admission H&P * Author:Leonides Bruce M.D Date:10/08/23 Impression and Plan Diagnosis E.coli bacteremia Recent colitis with blood in stool; better Treated with quinolone. Orders Patient came in with above-stated complaints and blood cultures to date are growing E. coli. They are resistant to the lungs. Patient was recently treated with Cipro and Flagyl for colitis. CT scan of abdomen pelvis this time shows resolution of the colitis. His diarrhea has ceased. He states he was having significant amount of blood in his stool when he was having colitis. I feel this is the source of the E. coli as it transiently likely got into his bloodstream when his blood cultures were positive. He is currently on treatment for community-acquired pneumonia plus IV vancomycin. Based on culture results and lack of pneumonia seen on CT of the chest favor narrowing him to just ceftriaxone. Favor finishing out a 2-week treatment course from the first set of negative blood cultures. Patient has a port in his chest wall from previous treatment for cancer. He states he no longer needs it but will defer to the primary team whether or not they want to remove this. From an infection standpoint as long as it clears and the blood culture if we decide to maintain the port could always do surveillance cultures 1 to 2 weeks after completion of IV ceftriaxone.. Extracted from: Title:APSO Note Author:Kathy LOVELL Date:10/07/23 PLAN: 1. Acute respiratory failure with hypoxia (J96.01: Acute respiratory failure with hypoxia) w/hypoxia/hypercapnia weaned Procal ++ ? infectious process Azithromycin /Ceftriaxone Blood cx posisitve. See #4 -sputum/Urine prelim neg Supplemental Oxygen 2. COPD exacerbation (J44.1: Chronic obstructive pulmonary disease with (acute) exacerbation) Suspect underlying COPD and Asthma hx Smoker and hx stable 5mm ABE nodule per CTA chest 01/2023 Methylprednisolone IV Med Nebs/flutter/IS/Mucinex Tessalon Perles prn Azithromycin as above. 3. Sepsis (A41.9: Sepsis, unspecified organism) Was likely present on admission and not showing. ? if related to prior admission. Leukocytosis w/left shift, bacteremia, w/tachycardia, fevers and tachypnea on admission Vanc/Zosyn See #4 recent hospitalization on 09/18- 09/21/2023 for Proctocolitis w/GI bleed was on vanc/zosyn at that time. Hx Hep C followed by [facility] WBC at that time was 19.9 trended down to 10.7 by d/c-was sent out on Cipro/Flagyl 4. Bacteremia (R78.81: Bacteremia) 06/12 blood cultures showing GNR cx not showing ??? right aram cath ??? Repeat blood cx (port included) 10/05 UA negative. Sputum cx pending. Ceftriaxone 2gram daily Vanc added today. Consult ID -pending 4. History of pancreatic cancer (Z85.07: Personal history of malignant neoplasm of pancreas) -Port in chest wall--consider source of infection. -Continue to follow up w/Oncology Creon, Lyrica, Oxycodone. Prior CT abd/pelvis 09/19/23 showing circumferential wall thickening of the splenic flexure, descending and rectosigmoid colon w/mild surrounding inflammation. 5. CKD (chronic kidney disease), stage III (N18.30: Chronic kidney disease, stage 3 unspecified) CR trends 1.6-1.7 which pt is currently at baseline. CR 1.3 today. Hold Lasix for now and avoid nephrotoxic meds. 6. DM2 (diabetes mellitus, type 2) (E11.9: Type 2 diabetes mellitus without complications) AccuChecks AC/HS w/ss insulin Typically take long acting insulin 30 units daily was on 20 but inpt will increase to 25 units today. and adjust as needed. 7. HTN (hypertension) (I10: Essential (primary) hypertension) Amlodipine Hold Lasix for now. Hydralazine for SBP 160 prn 8. Hyperlipidemia (E78.5: Hyperlipidemia, unspecified) Statin 9. Anxiety and depression (F41.9: Anxiety disorder, unspecified) Buspirone, Fetzima Ativan at HS 3. Smoker (F17.200: Nicotine dependence, unspecified, uncomplicated) [employer] on cessation Nicotine patch 10. On deep vein thrombosis (DVT) prophylaxis (Z79.899: Other emt intermediate (current) drug therapy) SCDs/Heparin Extracted from: Title:APSO Note Author:JV GIOVANI Denniseporcshe odonnell Date:10/06/23 PLAN: 1. Acute respiratory failure with hypoxia (J96.01: Acute respiratory failure with hypoxia) w/hypoxia/hypercapnia weaned Procal ++ ? infectious process Azithromycin /Ceftriaxone IV Blood/sputum/Urine pending Supplemental Oxygen 2. COPD exacerbation (J44.1: Chronic obstructive pulmonary disease with (acute) exacerbation) Suspect underlying COPD and Asthma hx Smoker and hx stable 5mm ABE nodule per CTA chest 01/2023 Methylprednisolone IV Med Nebs/flutter/IS/Mucinex Tessalon Perles prn Azithromycin as above. 3. Sepsis (A41.9: Sepsis, unspecified organism) Was likely present on admission and not showing. Leukocytosis w/left shift, bacteremia, w/tachycardia, fevers and tachypnea on admission Vanc/Zosyn See #4 recent hospitalization on 09/18- 09/21/2023 for Proctocolitis w/GI bleed was on vanc/zosyn at that time. Hx Hep C followed by [facility] WBC at that time was 19.9 trended down to 10.7 by d/c-was sent out on Cipro/Flagyl 4. Bacteremia (R78.81: Bacteremia) / blood cultures showing GNR cx not showing ??? right aram cath ??? Repeat blood cx (port included) 10/05 UA negative. Sputum cx pending. Ceftriaxone 2gram daily Vanc added today. Consider consult ID . 4. History of pancreatic cancer (Z85.07: Personal history of malignant neoplasm of pancreas) -Port in chest wall--consider source of infection. -Continue to follow up w/Oncology Creon, Lyrica, Oxycodone. Prior CT abd/pelvis 09/19/23 showwing circumferential wall thickening of the splenic flexure, descending and rectosigmoid colon w/mild surrounding inflammation. 5. CKD (chronic kidney disease), stage III (N18.30: Chronic kidney disease, stage 3 unspecified) CR trends 1.6-1.7 which pt is currently at baseline. CR 1.3 today. Hold Lasix for now and avoid nephrotoxic meds. 6. DM2 (diabetes mellitus, type 2) (E11.9: Type 2 diabetes mellitus without complications) AccuChecks AC/HS w/ss insulin Typically take long acting insulin 30 units daily was on 20 but inpt will increase to 25 units today. and adjust as needed. 7. HTN (hypertension) (I10: Essential (primary) hypertension) Amlodipine Hold Lasix for now. Hydralazine for SBP 160 prn 8. Hyperlipidemia (E78.5: Hyperlipidemia, unspecified) Statin 9. Anxiety and depression (F41.9: Anxiety disorder, unspecified) Buspirone, Fetzima Ativan at HS 3. Smoker (F17.200: Nicotine dependence, unspecified, uncomplicated) [employer] on cessation Nicotine patch 10. On deep vein thrombosis (DVT) prophylaxis (Z79.899: Other emt intermediate (current) drug therapy) SCDs/Heparin Extracted from: Title:APSO Note Author:Kathy LOVELL Date:10/05/23 PLAN: 1. Acute respiratory failure with hypoxia (J96.01: Acute respiratory failure with hypoxia) w/hypoxia/hypercapnia Procal ++ ? infectious process Azithromycin /Ceftriaxone IV Blood/sputum/Urine pending Supplemental Oxygen 2. COPD exacerbation (J44.1: Chronic obstructive pulmonary disease with (acute) exacerbation) Suspect underlying COPD and Asthma hx Smoker and hx stable 5mm ABE nodule per CTA chest 01/2023 Methylprednisolone IV Med Nebs/flutter/IS/Mucinex Tessalon Perles prn Azithromycin as above. 3. Smoker (F17.200: Nicotine dependence, unspecified, uncomplicated) [employer] on cessation Nicotine patch 4. History of pancreatic cancer (Z85.07: Personal history of malignant neoplasm of pancreas) -Port in chest wall -Continue to follow up w/Oncology Creon, Lyrica, Oxycodone 5. CKD (chronic kidney disease), stage III (N18.30: Chronic kidney disease, stage 3 unspecified) CR trends 1.6-1.7 which pt is currently at baseline. Hold Lasix for now and avoid nephrotoxic meds. 6. DM2 (diabetes mellitus, type 2) (E11.9: Type 2 diabetes mellitus without complications) AccuChecks AC/HS w/ss insulin Typically take long acting insulin 30 units daily will decrease to 20 units for now while inpt and adjust as needed. 7. HTN (hypertension) (I10: Essential (primary) hypertension) Amlodipine Hold Lasix for now. Hydralazine for SBP 160 prn 8. Hyperlipidemia (E78.5: Hyperlipidemia, unspecified) Statin 9. Anxiety and depression (F41.9: Anxiety disorder, unspecified) Buspirone, Fetzima Ativan at HS 10. On deep vein thrombosis (DVT) prophylaxis (Z79.899: Other halfway (current) drug therapy) SCDs/Heparin Orders: amlodipine, 10 mg = 1 tab(s), Tab, Oral, Daily, Routine, Start date 10/05/23 9:00:00 EDT, 10/05/23 6:15:00 EDT azithromycin + Sodium Chloride 0.9% intravenous solution 250 mL, 500 mg = 1 EA, Injection, IV Piggyback, Daily, Routine, Start date 10/06/23 9:00:00 EDT, 250 mL/hr, Infuse over 60 minute(s) busPIRone, 30 mg = 3 tab(s), Tab, Oral, Bedtime, Routine, Start date 10/05/23 21:00:00 EDT furosemide, 20 mg = 1 tab(s), Tab, Oral, Daily, Routine, Start date 10/05/23 9:00:00 EDT, 10/05/23 6:16:00 EDT glucose, 50 mL, Soln-IV, IV Push, Once PRN Blood glucose, Routine, Start date 10/05/23 7:51:00 EDT insulin glargine, 20 unit(s) = 0.2 mL, Injection-Insulin, SubCutaneous, Daily for 30 day(s), Stop date 11/04/23 9:59:00 EDT, Start date 10/05/23 10:00:00 EDT insulin lispro, 0-10 Unit(s), Injection-Insulin, SubCutaneous, QIDACHS, Routine, Start date 10/05/23 11:30:00 EDT methylPREDNISolone, 40 mg = 1 mL, Injection, IV Push, q12hr, Routine, Start date 10/05/23 9:00:00 EDT oxycodone, 10 mg = 2 tab(s), Tab, Oral, QID PRN Pain for 5 day(s), Stop date 10/10/23 10:34:00 EDT, Routine, Start date 10/05/23 10:35:00 EDT Patient Specific Meds, Fetzima 40 mg capsule, Normal Patient Dose, Each, Oral, Daily, Routine, Start date 10/05/23 13:00:00 EDT Patient Specific Meds, Creon 36,000 unit capsule, Normal Patient Dose, Each, Oral, TIDWM, Routine, Start date 10/05/23 12:00:00 EDT Sodium Chloride 0.9% intravenous solution 1,000 mL, 1,000 mL, IV, 75 mL/hr, Routine, Start date 10/05/23 14:08:00 EDT, 13.3 hour(s), Total volume (mL): 1,000, 103 kg, 2.31, m2 Basic Metabolic Panel Basic Metabolic Panel Cardiac Diet CBC w/ Auto Diff CBC w/ Auto Diff Communication Order Communication Order CTA Chest eGFR HgbA1c Hypoglycemia Protocol Responsive Patient Hypoglycemia Protocol Unresponsive Patient Routine Capillary Glucose POC UA with Cult Rflx Extracted from: Title:Admission H & P Author:Nereida CA DO Date:10/05/23 1. COPD exacerbation (J44.1: Chronic obstructive pulmonary disease with (acute) exacerbation) Patient was given Solu-Medrol 125 mg IV in the emergency department. Will start on prednisone 40 mg p.o. daily. Pulmonary toilet as ordered - duo-nebs q6hrs and alb neb q2hrs prn, Tessalon Perles as needed, mucinex. Procalcitonin is elevated therefore we will start patient on IV Rocephin and azithromycin. 2. Acute respiratory failure with hypoxia (J96.01: Acute respiratory failure with hypoxia) Oxygen as needed. See #1 3. Smoker (F17.200: Nicotine dependence, unspecified, uncomplicated) Nicotine patch as needed. Encourage cessation. 4. Anxiety (F41.9: Anxiety disorder, unspecified) Patient was given Ativan in the emergency department. Will order hydroxyzine as needed 5. HTN (hypertension) (I10: Essential (primary) hypertension) Resume home medications once reconciled. Hydralazine iv prn. see orders. 6. Hyperlipidemia (E78.5: Hyperlipidemia, unspecified) Resume home medications once reconciled. 7. DM2 (diabetes mellitus, type 2) (E11.9: Type 2 diabetes mellitus without complications) Diabetic diet. Sliding scale insulin. 8. History of pancreatic cancer (Z85.07: Personal history of malignant neoplasm of pancreas) Supportive care. 9. CKD (chronic kidney disease), stage III (N18.30: Chronic kidney disease, stage 3 unspecified) Baseline GFR 35-45 mill per minute 10. On deep vein thrombosis (DVT) prophylaxis (Z79.899: Other emt intermediate (current) drug therapy) SCD, heparin Orders: acetaminophen, 650 mg = 2 tab(s), Tab, Oral, q6hr PRN Pain, Routine, Start date 10/05/23 2:42:00 EDT, 10/05/23 2:42:00 EDT albuterol, 2.5 mg, 3 mL, Soln-Inh, Inhalation, q2hr PRN Shortness of breath or wheezing, Routine, Start date 10/05/23 2:41:00 EDT albuterol-ipratropium, 3 mL, Soln-Inh, Inhalation, QID, Routine, Start date 10/05/23 8:00:00 EDT aspirin, 81 mg = 1 tab(s), Tab-EC, Oral, Daily, Routine, Start date 10/05/23 9:00:00 EDT, 10/05/23 2:42:00 EDT azithromycin + Sodium Chloride 0.9% intravenous solution 250 mL, 500 mg = 1 EA, Injection, IV Piggyback, q24hr, Stop date 11/05/23 2:59:00 EDT, Routine, Start date 10/06/23 3:00:00 EDT, 250 mL/hr, Infuse over 60 minute(s) benzonatate, 100 mg = 1 cap(s), Cap, Oral, TID PRN Cough, Routine, Start date 10/05/23 2:42:00 EDT, 10/05/23 2:42:00 EDT ceftriaxone + Sodium Chloride 0.9% intravenous solution 50 mL, 1,000 mg = 1 EA, Injection, IV Piggyback, q24hr, Routine, Start date 10/05/23 5:00:00 EDT, 100 mL/hr, Infuse over 30 minute(s) diphenhydrAMINE, 25 mg = 1 cap(s), Cap, Oral, q6hr PRN Itching, Routine, Start date 10/05/23 2:42:00 EDT, 10/05/23 2:42:00 EDT guaifenesin, 1,200 mg = 2 tab(s), Tab-ER, Oral, q12hr, Routine, Start date 10/05/23 3:00:00 EDT, 10/05/23 2:41:00 EDT heparin, 5,000 unit(s) = 1 mL, Injection, SubCutaneous, BID for 30 day(s), Stop date 11/04/23 8:59:00 EDT, Routine, Start date 10/05/23 9:00:00 EDT, 10/05/23 2:42:00 EDT hydrALAZINE, 10 mg = 0.5 mL, Injection, IV Push, q6hr PRN Other (see comment), Routine, Start date 10/05/23 2:42:00 EDT, 10/05/23 2:42:00 EDT nicotine, 21 mg, 1 patch(es), Patch-ER, TransDermal, Daily PRN Other (see comment) for 30 day(s), Stop date 11/04/23 2:40:00 EDT, Routine, Start date 10/05/23 2:41:00 EDT ondansetron, 4 mg = 2 mL, Injection, IV Push, q6hr PRN Nausea, Routine, Start date 10/05/23 2:42:00 EDT, 10/05/23 2:42:00 EDT predniSONE, 40 mg = 2 tab(s), Tab, Oral, Daily, Routine, Start date 10/05/23 9:00:00 EDT, 10/05/23 2:41:00 EDT quetiapine, 25 mg = 1 tab(s), Tab, Oral, Bedtime PRN Sleep, Routine, Start date 10/05/23 2:43:00 EDT, 10/05/23 2:43:00 EDT Ambulate with Assistance Cardiac Diet Cardiac Monitoring Notify Provider Vital Signs Notify Provider Vital Signs Oxygen Protocol Place in Status Procalcitonin Respiratory Panel by PCR Resuscitation Status - Full Sputum Culture Vital Signs Weight Anticipated stay greater than 2 midnights due to above Extracted from: Title:ED Note Author:Donicanor Phaniignacio Pitts Date :10/05/23 COPD exacerbation (J44.1: Ch ronic obstructive pulmonary disease with (acute) exacerbation) Hypoxia (R09.02: Hypoxemia) Orders: acetaminophen, 975 mg = 3 tab(s), Tab, Oral, Once, Stop date 10/05/23 1:23:00 EDT, STAT, Start date 10/05/23 1:23:00 EDT, 10/05/23 1:23:00 EDT albuterol-ipratropium, 9 mL, Soln-Inh, Inhalation, Once, Stop date 10/05/23 1:19:00 EDT, STAT, Start date 10/05/23 1:19:00 EDT azithromycin + Sodium Chloride 0.9% intravenous solution 250 mL, 500 mg = 1 EA, IV Piggyback, Once, Stop date 10/05/23 2:39:00 EDT, STAT, Start date 10/05/23 2:39:00 EDT, 250 mL/hr, Infuse over 60 minute(s), 10/05/23 2:39:00 EDT lorazepam, 1 mg = 0.5 mL, Injection, IV Push, Once, Stop date 10/05/23 3:00:00 EDT, Routine, Start date 10/05/23 3:00:00 EDT, 10/05/23 2:30:00 EDT methylPREDNISolone, 125 mg = 2 mL, Injection, IV Push, Once, Stop date 10/05/23 1:19:00 EDT, STAT, Start date 10/05/23 1:19:00 EDT, 10/05/23 1:19:00 EDT Sodium Chloride 0.9% intravenous solution 1,000 mL, 1,000 mL, IV, 983.61 mL/hr, for 30 day(s), Stop date 11/04/23 1:19:00 EDT, STAT, Start date 10/05/23 1:20:00 EDT, 61 minute(s), Total volume (mL): 1,000, 98.8 kg, 2.27, m2 B-Type Natriuretic Peptide Basic Metabolic Panel Blood Culture Charcoal Blood Culture Charcoal Blood Gas Art, with Lytes, Gluc, Lact CBC w/ Auto Diff Continuous Pulse Oximetry ECG 12 Lead Adult ED Cardiac Monitoring ED Physician consult Hospitalist for continued care eGFR Lactic Acid Oxygen Therapy PT & PTT Rapid [place] [place] Saline Lock Insert Troponin 0 Hr. Troponin 1 Hr. XR Chest Single View Future Appointments Appointment Date:10/10/2023 12:30:00 PM Scheduled Provider: Location:[facility] Appointment Type:ASU IV Antibiotic (FT) Appointment Date:10/11/2023 12:30:00 PM Scheduled Provider: Location:[facility] Appointment Type:ASU IV Antibiotic (FT) Appointment Date:10/12/2023 12:30:00 PM Scheduled Provider: Location:[facility] Appointment Type:ASU IV Antibiotic (FT) Appointment Date:10/13/2023 12:30:00 PM Scheduled Provider: Location:[facility] Appointment Type:ASU IV Antibiotic (FT) Appointment Date:10/14/2023 12:30:00 PM Scheduled Provider: Location:[facility] Appointment Type:ASU IV Antibiotic (FT) Appointment Date:10/15/2023 12:30:00 PM Scheduled Provider: Location:[facility] Appointment Type:ASU IV Antibiotic (FT) Appointment Date:10/16/2023 12:30:00 PM Scheduled Provider: Location:[facility] Appointment Type:ASU IV Antibiotic (FT) Appointment Date:10/17/2023 12:30:00 PM Scheduled Provider: Location:[facility] Appointment Type:ASU IV Antibiotic (FT) Appointment Date:10/18/2023 12:30:00 PM Scheduled Provider: Location:[facility] Appointment Type:ASU IV Antibiotic (FT) Appointment Date:10/19/2023 12:30:00 PM Scheduled Provider: Location:[facility] Appointment Type:ASU IV Antibiotic (FT) Appointment Date:10/20/2023 12:30:00 PM Scheduled Provider: Location:[facility] Appointment Type:ASU IV Antibiotic (FT) [facility] 07-31-2024 Hospital Discharge instructions Patient Education 10/09/2023 11:47:21 Bacteremia, Adult Bacteremia, Adult Bacteremia is the presence of bacteria in the blood. When bacteria enter the bloodstream, they can cause a life-threatening reaction called sepsis. Sepsis is a medical emergency. What are the causes? This condition is caused by bacteria that get into the blood. Bacteria can enter the blood from an infection, including: A skin infection or injury, such as a burn or a cut. A lung infection (pneumonia). An infection in the stomach or intestines. An infection in the bladder or urinary system (urinary tract infection). A bacterial infection in another part of the body that spreads to the blood. Bacteria can also enter the blood during a dental or medical procedure, from bleeding gums, or through use of an unclean needle. What increases the risk? This condition is more likely to develop in children, older adults, and people who have: A long-term (chronic) disease or condition like diabetes or chronic kidney failure. An artificial joint or heart valve, or heart valve disease. A tube inserted to treat a medical condition, such as a urinary catheter or IV. A weak disease-fighting system (immune system). Injected illegal drugs. Been hospitalized for more than 10 days in a row. What are the signs or symptoms? Symptoms of this condition include: Fever and chills. Fast heartbeat and shortness of breath. Dizziness, weakness, and low blood pressure. Confusion or anxiety. Pain in the abdomen, nausea, vomiting, and diarrhea. Bacteremia that has spread to other parts of the body may cause symptoms in those areas. In some cases, there are no symptoms. How is this diagnosed? This condition may be diagnosed with a physical exam and tests, such as: Blood tests to check for bacteria or other signs of infection. Tests of any tubes that you have had inserted. These tests check for a source of infection. Urine tests to check for bacteria in the urine. Imaging tests, such as an X-ray, a CT scan, an MRI, or a heart ultrasound. These check for a sourceof infection in other parts of your body, such as your lungs, heart valves, or joints. How is this treated? This condition is usually treated in the hospital. If you are treated at home, you may need to return to the hospital for medicines, blood tests, and evaluation. Treatment may include: Antibiotic medicines. These may be given by mouth (orally) or directly into your blood through an IV. You may need antibiotics for several weeks. At first, you may be given an antibiotic to kill mosttypes of blood bacteria. If tests show that a certain kind of bacteria is causing the problem, you may be given a different antibiotic. IV fluids. Removing any catheter or device that could be a source of infection. Blood pressure and breathing support, if needed. Surgery to control the source or the spread of infection, such as surgery to remove an implanted device, abscess, or infected tissue. Follow these instructions at home: Medicines Take tjix-fmw-oydfycy and prescription medicines only as told by your health care provider. If you were prescribed an antibiotic medicine, take it as told by your health care provider. Do notstop taking the antibiotic even if you start to feel better. General instructions Rest as told by your health care provider. Return to your normal activities as told by your health care provider. Ask your health care provider what activities are safe for you. Drink enough fluid to keep your urine pale yellow. Do not use any products that contain nicotine or tobacco. These products include cigarettes, chewing tobacco, and vaping devices, such as e-cigarettes. If you need help quitting, ask your health careprovider. Keep all follow-up visits. This is important. How is this prevented? Get vaccines as recommended by your health care provider. Take good care of your skin. This includes: ?Cleaning and covering any scrapes or cuts. ?Bathing regularly and moisturizing your skin often. Wash your hands regularly with soap and water for at least 20 seconds. If soap and water are not available, use hand supervisor tellers. You should wash your hands: ?After using the toilet or changing a diaper. ?Before preparing, cooking, serving, or eating food. ?While caring for a sick person or while visiting someone in a hospital. ?Before and after changing bandages (dressings) over wounds. Practice good mouth care (oral hygiene). Palmer your teeth two times a day, and floss regularly. Contact a health care provider if: Your symptoms get worse, and medicines do not help. You have severe pain. Get help right away if you have: Chest pain or trouble breathing. A fever or chills. A fast heart rate. Skin that is blotchy, pale, or clammy. Confusion. Weakness, a lack of energy, or unusual sleepiness. New symptoms that develop after treatment has started. These symptoms may represent a serious problem that is an emergency. Do not wait to see if the symptoms will go away. Get medical help right away. Call your local emergency services (911 in the [place] Do not drive yourself to the hospital. Summary Bacteremia is the presence of bacteria in the blood. When bacteria enter the bloodstream, they can cause a life-threatening reaction called sepsis. Bacteremia is usually treated with antibiotic medicines in the hospital. If you were prescribed an antibiotic medicine, take it as told by your health care provider. Do notstop taking the antibiotic even if you start to feel better. Get help right away if you have any new symptoms that develop after treatment has started. This information is not intended to replace advice given to you by your health care provider. Make sure you discuss any questions you have with your health care provider. Document Revised: 05/29/2021 Document Reviewed: 05/29/2021 [employer] Patient Education 2022 [employer]. 10/09/2023 11:47:21 Sepsis, Self Care, Adult Sepsis, Self Care, Adult Sepsis is a serious illness that may require intensive care in the hospital. The following information explains what you need to know in order to manage your condition after you are discharged from the hospital. What are the risks? After being treated for sepsis and discharged from the hospital, you may be at a higher risk for certain problems. These problems may be physical or mental. Physical problems: Weakness and tiredness. Shortness of breath. Pain in many areas of the body. Difficulty walking. Dry, itchy skin. Lack of appetite. This may lead to weight loss. Organ failure. Mental problems: Difficulty sleeping. Depression. Confusion. Anxiety and worry caused by having gone through a bad experience (post-traumatic stress disorder,PTSD). Low self-esteem. Follow these instructions at home: Medicines Take ojwu-aeh-xlwlbxn and prescription medicines only as told by your health care provider. If you were prescribed an antibiotic, antiviral, or antifungal medicine, take it as told by your health care provider. Do not stop taking the medicine even if you start to feel better. Eating and drinking Eat a healthy diet that includes plenty of vegetables, fruits, whole grains, low-fat dairy products, and lean protein. Ask your health care provider if you should avoid certain foods. Drink enough fluid to keep your urine pale yellow. Alcohol use Do not drink alcohol if: ?Your health care provider tells you not to drink. ?You are , may be , or are planning to become . If you drink alcohol, limit how much you use to: ?0 1 drink a day for women. ?0 2 drinks a day for men. ?Be aware of how much alcohol is in your drink. In the [place] one drink equals one 12 oz bottle of beer (355 mL), one 5 oz glass of wine (148 mL), or one 1 oz glass of hard liquor (44 mL). Activity Rest as told by your health care provider. Avoid sitting for a long time without moving. Get up to take short walks every 1 2 hours. This is important to improve blood flow and breathing. Ask for help if you feel weak or unsteady. Try to set small, achievable goals each week, such as dressing yourself, bathing, or walking up thestairs. It may take a while to rebuild your strength. Try to exercise regularly if you feel healthy enough to do so. Ask your health care provider what exercises are safe for you. Return to your normal activities as told by your health care provider. Ask your health care provider what activities are safe for you. Preventing infection Keep your vaccinations up to date. Get the flu shot every year. Wash your hands often for at least 20 seconds using soap and water. If soap and water are not available, use hand supervisor tellers. Practice good hygiene. Keep cuts clean and covered until they heal. Managing stress Talk with your health care provider or counselor about ways to reduce stress. He or she may suggest: Meditation, muscle relaxation, and breathing exercises. Listening to music. Talk therapy. Spending time on hobbies and activities that you enjoy. General instructions Get the right amount and quality of sleep. Most adults need 7 9 hours of sleep each night. To help with sleep: ?Keep your bedroom cool and dark. ?Do not eat a heavy meal within one hour of bedtime. ?Do not drink alcohol or caffeinated drinks before bed. ?Avoid screen time, such as television, computers, tablets, or cell phones before bed. Do not use any products that contain nicotine or tobacco. These products include cigarettes, chewing tobacco, and vaping devices, such as e-cigarettes. If you need help quitting, ask your health careprovider. Talk to trusted family members and friends about your condition. Explain your symptoms to them, andlet them know that you are working with a health care provider to treat your condition. This can provide you with one way to get support and guidance. Keep all follow-up visits. This is important. Questions to ask your health care provider: What physical and emotional changes do I need to report? Do I need to have someone with me all the time? Is it safe for me to drive? Contact a health care provider if: You do not feel like you are getting better or regaining strength. You have muscle or joint pain. You frequently feel tired. You are having trouble coping with your recovery. You have nightmares, or trouble falling asleep or staying asleep. You feel sad, down, or depressed more often than not, every day for more than 2 weeks. You have difficulty concentrating. You feel irritable or you cry for no reason. Get help right away if: You have difficulty breathing. You have a rapid or skipping heartbeat. You become confused or disoriented. You see, hear, or feel things that do not exist (hallucinations). You have a high fever. You have an infection that is getting worse or not getting better. You have thoughts of hurting yourself or others. These symptoms may represent a serious problem that is an emergency. Do not wait to see if the symptoms will go away. Get medical help right away. Call your local emergency services (326 in the [place] Do not drive yourself to the hospital. If you ever feel like you may hurt yourself or others, or have thoughts about taking your own life,get help right away. Go to your nearest emergency department or: Call your local emergency services (437 in the [place] Call a suicide crisis helpline, such as the National Suicide Prevention Lifeline at or 860 in the [place] This is open 24 hours a day. Text the Crisis Text Line at 592258 (in the [place] Summary Sepsis is a serious illness that may require intensive care in a hospital. You may experience long-term health effects after you are discharged from the hospital. Try to set small, achievable goals each week, such as dressing yourself, bathing, or walking up thestairs. It may take a while to rebuild your strength. Know what symptoms you should get help right away for. Keep all follow-up visits. This is important. This information is not intended to replace advice given to you by your health care provider. Make sure you discuss any questions you have with your health care provider. Document Revised: 09/20/2021 Document Reviewed: 01/09/2021 [employer] Patient Education 2022 [employer] Follow Up Care 10/05/2023 01:12:37 With:TIKI DOCKERY Address: [address] [facility] [address], [place] [id number]- [employer] (1) When: Unknown Comments:Call for followup appointment [facility] 07-30-2024 NoteConsultation Note Patient: ALTAGRACIA CONWAY Age: 68 years Sex: Male : 1955 Associated Diagnoses: None Author: Leonides Bruce M.D History of Present Illness pt to ED with c/o SOB. dry mouth noted. cough noted. states CP intermittenty for 3 years. hx of COPD, not on home O2, speaking in short sentences. states CA survivor with R chest port in place. denies known fevers, c/o chills. Patient states that the evening of 10/04/2023 he had sudden onset chest pain and urgency of breath. He has had an associated dry cough over the last few days. Patient states his temperature was approximately 99 ?F at home. Denies any recent nausea, vomiting. He has been having diarrhea/loose stool. He was treated for colitis with antibiotics about 1 week ago. Patient denies any dysuria, headache, vision changes, hearing loss. Patient does continue to smoke cigarettes daily. Patient had blood cultures on admission and both sets are positive for E. coli. Patient tells me he was having loose stools for approximately 2 to 3 weeks given his colitis above. He noticed blood in his stool pretty regularly for that time but this is improved. Review of Systems Constitutional: Negative except as documented in history of present illness. ROS reviewed as documented in chart Health Status Allergies: Allergic Reactions (Selected) Severity Not Documented Ragweed- No reactions were documented. Current medications: Medications (36) Active Scheduled: (23) albuterol-ipratropium 2.5 mg-0.5 mg/3 mL SOLN [F] 3 mL, Inhalation, QID amLODIPine 10 mg Tab [F] 10 mg 1 tab(s), Oral, Daily aspirin 81 mg Oral EC Tab [F] 81 mg 1 tab(s), Oral, Daily atorvastatin 20 mg Tab [F] 10 mg 0.5 tab(s), Oral, Bedtime azithromycin + Sodium Chloride 0.9% 250 mL 500 mg 1 EA, IV Piggyback, Daily busPIRone 10 mg Tab [F] 30 mg 3 tab(s), Oral, Bedtime ceftriaxone + Sodium Chloride 0.9% Minibag 50 mL 2,000 mg 1 EA, IV Piggyback, q24hr doxepin 25 mg Cap [F] 100 mg 4 cap(s), Oral, Bedtime furosemide 20 mg Tab [F] 20 mg 1 tab(s), Oral, Daily guaiFENesin 600 mg ER Tab [F] 1,200 mg 2 tab(s), Oral, q12hr heparin 5,000 units/mL Inj [F] 5,000 unit(s) 1 mL, SubCutaneous, BID insulin glargine (Lantus) 100 units/mL SubQ Annette 10 mL [F] 30 unit(s) 0.3 mL, SubCutaneous, Daily insulin lispro 100 units/mL (HUMALOG) 10 mL SubQ inj [F] 0-10 Unit(s), SubCutaneous, QIDACHS methylPREDNISolone 40 mg Inj [F] 40 mg 1 mL, IV Push, Daily mirtazapine 15 mg Tab [F] 45 mg 3 tab(s), Oral, Once a day (at bedtime) pantoprazole [address] Tab [F] 40 mg 1 tab(s), Oral, Daily Patient Specific Meds [F] Normal Patient Dose, Oral, TIDWM Patient Specific Meds [F] Normal Patient Dose, Oral, Daily Patient Specific Meds [F] Normal Patient Dose, Oral, Daily pregabalin 150 mg Cap [F] 150 mg 1 cap(s), Oral, BID tamsulosin 0.4 mg Cap [F] 0.4 mg 1 cap(s), Oral, Daily vancomycin + Generic Diluent 300 mL 1,500 mg 300 mL, IV Piggyback, q18hr vancomycin PHARMACY TO DOSE [F] PHARMACY TO DOSE, IV, As Directed Continuous: (0) PRN: (13) acetaminophen 325 mg Tab UD [F] 650 mg 2 tab(s), Oral, q6hr albuterol 0.083% Inh Annette 3 mL [F] 2.5 mg 3 mL, Inhalation, q2hr benzonatate 100 mg Cap [F] 100 mg 1 cap(s), Oral, TID dextrose 50% IV Annette 50 mL Abboject [F] 50 mL, IV Push, Once diphenhydrAMINE 25 mg Cap [F] 25 mg 1 cap(s), Oral, q6hr heparin flush 100 units/mL Soln 5 mL [F] 500 unit(s) 5 mL, IV Push, q12hr hydrALAZINE 20 mg/mL Inj [F] 10 mg 0.5 mL, IV Push, q6hr hydrOXYzine hydrochloride 25 mg Tab [F] 25 mg 1 tab(s), Oral, TID LORazepam 0.5 mg Tab [F] 0.5 mg 1 tab(s), Oral, q8hr nicotine 21 mg/24 hr Transderm ER Film [F] 21 mg 1 patch(es), TransDermal, Daily ondansetron 2 mg/mL Inj [F] 4 mg 2 mL, IV Push, q6hr oxyCODONE 5 mg Tab UD [F] 10 mg 2 tab(s), Oral, QID QUEtiapine 25 mg Tab [F] 25 mg 1 tab(s), Oral, Bedtime Problem list: All Problems At risk for falls / SNOMED CT 995562250 / Possible Problem added when Risk for Falls Careplan was initiated. Brachial plexus neuropathy / SNOMED CT 190893266 / Confirmed CKD (chronic kidney disease), stage III / SNOMED CT 1185677019 / Confirmed Contusion of knee, right / SNOMED CT 81771278 / Confirmed Diabetes / SNOMED CT 067787286 / Confirmed Diabetes / SNOMED CT [id number] / Confirmed Hepatitis C / SNOMED CT 93652306 / Confirmed History of pancreatic cancer / SNOMED CT 5343768759 / Confirmed HTN (hypertension) / SNOMED CT [id number] / Confirmed Hyperlipidemia / SNOMED CT 98847767 / Confirmed Depression with anxiety / SNOMED CT 186282106 / Confirmed Smoker / ICD-10-CM F17.200 / Confirmed Medial collateral ligament sprain of knee / SNOMED CT 847009773 / Confirmed DM2 (diabetes mellitus, type 2) / SNOMED CT 638057843 / Confirmed Hepatitis C / SNOMED CT 49101233 / Confirmed Histories Past Medical History: Active Diabetes ([id number] (more content not included)...[facility] CenterComment on above:Result Comment: Electronically Signed By: Leonides Bruce M.D\Date and Time Signed: 10/08/23 12:53 [id number] Note Echocardiology Procedure Exam Date/Time Accession # Ordering Echo Transthoracic 10/07/2023 13:28 EDT [id number] [id number] MATUTE, Complete Kathi CPT code 02377 [id number] Reason for Exam (Echo Transthoracic Complete) Other (please specify) Report [facility] [address] [place] [address] Adult Echocardiogram Report Name: ALTAGRACIA CONWAY Study Date: 10/07/2023 12:49 PM BP: 151/74 mmHg Patient Location: [address] [place] [address] HR: 82 : 1955 Gender: Male Height: 73.5 in Age: 68 yrs Ethnicity: [facility] Weight: 214 lb Reason For Study: Bacteremia BSA: 2.2 m2 History: HTN,Diabetes,Smoker-Yes,COPD Ordering Physician: Chandrakant Performed By: Sadia Larkin RDCS Interpretation Summary Ejection Fraction = 60-65%. Normal LV and RV. No significant valve disease. Normal estimated PA pressure. Impaired diastolic relaxation. No obvious vegetations or valve issues. Procedure A complete two-dimensional transthoracic echocardiogram was performed (2D, M- mode, spectral and color flow Doppler). Study quality is good. Left Ventricle The left ventricle is normal in size. There is normal left ventricular wall thickness. Ejection Fraction = 60-65%. The left ventricular wall motion is normal. Grade I diastolic dysfunction, (abnormal relaxation pattern). Left Atrium The left atrial size is normal. Right Atrium Right atrial size is normal. Echocardiology Report Right Ventricle The right ventricular systolic function is normal. The right ventricle is normal size. The right ventricular wall motion is normal. Aortic Valve The aortic valve is trileaflet. No aortic regurgitation. There is no aortic stenosis. Mitral Valve The mitral valve is normal in structure and function. There is no mitral regurgitation noted. No mitral valve stenosis. Tricuspid Valve Structurally normal tricuspid valve. No evidence of tricuspid regurgitation. Right ventricular systolic pressure is normal. Pulmonic Valve No evidence of stenosis. There is no pulmonic valve regurgitation. Arteries The aortic root is normal in size. Normal ascending aorta. Pulmonary artery diameter is normal. Venous The inferior vena cava is normal in size, and collapses normally with respiration. Effusion There is no pericardial effusion. MMode/2D Measurements & Calculations RVDd: 3.1 cm LVIDd: 5.4 cm FS: 33.6 % Ao root diam: 3.0 cm IVSd: 1.1 cm LVIDs: 3.6 cm EDV(Teich): 142.5 ml LVPWd: 1.0 cm ESV(Teich): 54.3 ml Ao root area: 6.9 cm2 EF(Teich): 61.9 % LA dimension: 4.1 cm LVOT diam: 2.1 cm LVLd ap4: 8.9 cm EDV(MOD-sp2): 151.0 ml SV(MOD-sp4): 67.2 ml LVOT area: 3.4 cm2 EDV(MOD-sp4): 116.0 ml ESV(MOD-sp2): 65.6 ml LVLs ap4: 7.2 cm EF(MOD-sp2): 56.6 % ESV(MOD-sp4): 48.8 ml EF(MOD-sp4): 57.9 % TAPSE: 2.8 cm IVC Diam: 2.2 cm RVIDd/LVIDd: 0.57 EF (MOD-bp): 56.4 % LA Vol Index: 33.0 ml/m2 Doppler Measurements & Calculations MV E max tri: 108.0 cm/sec MV dec time: 0.20 sec Ao V2 max: 130.9 cm/sec LV V1 max P.0 mmHg MV A max tri: 131.0 cm/sec Ao max P.9 mmHg LV V1 max: 122.7 cm/sec MV E/A: 0.82 Lat Peak E' Tri: 10.1 cm/sec SONG(V,D): 3.2 cm2 E/E' Lat: 10.7 Echocardiology Report Med Peak E' Tri: 9.7 cm/sec E/E' Med: 11.2 TR max tri: 247.3 cm/sec RAP systole: 15.0 mmHg AV VR: 0.94 TR max P.5 mmHg RVSP(TR): 39.5 mmHg FINAL REPORT Dictated: 10/07/2023 12:49 pm Saroj Garcia MD Signed (Electronic Signature): 10/07/2023 3:21 pm Signed by: Saroj Garcia MD Transcribed by: [facility] Technologist: [facility]07-29-2024 Note Discharge Summary Admission and Discharge Information Admit Date/Time:09/20/2023 14:20 Admitting Physician - Jesse Angelo DO Admitting Diagnoses: Discharge Order Date Discharge Patient - Ordered -- 09/21/23 12:53:00 EDT, Lower GI bleed Colitis Acute abdominal pain Discharge Diagnoses 1. Lower GI bleed, 09/20/2023 2. Colitis, Proctocolitis 3. 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 Hospital Course Significant Findings 09/19/2023: Admitted to EGS for colitis, complaints of bright red blood per rectum, hyperkelamia in setting of CKD given lokelma 09/20/2023: Down trend in leukocytosis, Cr, potassium appropriate, Cdiff negative started on CLD 09/21/2023: No further bright red blood per rectum, small brown BM, pain controlled, tolerating regular diet, appropriate for discharge home Procedures and Treatment Provided No surgical interventions this admission; IV antibiotics, bowel rest for colitis Physical Exam Vitals & Measurements T: 36.8 ?C(Oral) TMIN: 36.3 ?C(Oral) TMAX: 36.9 ?C(Axillary) HR: 66(Monitored) RR: 16 BP: 160/79 SpO2: 98% WT: 98.7 kg GENERAL: alert, pleasant, conversational. Resting in bedside chair, visitor at bedside, empty lunchtray at [facility] HEENT:normocephalic, oral mucosa moist CARDIOVASCULAR: RRR PULMONARY: Breathing comfortably on room air, symmetric chest rise ABDOMINAL: Soft, ND, mild LLQ tenderness without rebound or guarding EXTREMITIES: moves all extremities with equal strength, no edema NEUROLOGICAL: alert and oriented x [address] Abdomen/Pelvis w/ Contrast Discharge Plan Patient Discharge Condition Improved Discharge Disposition Discharge To, Anticipated II - Home with responsible caregiver Discharged to - Home independently Home, 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 PO antibiotics on way home today Discharge Diet Discharge Diet(s): Regular (09/21/23 10:36:00) Discharge Medication List Prescriptions Cipro 500 mg Tab, 500 mg= 1 tab(s), Oral, q12hr Flagyl 500 mg Tab, 500 mg= 1 tab(s), Oral, TID Home Adult Aspirin 81 mg oral tablet, chewable, 81 mg= 1 tab(s), Chewed, Daily amitriptyline, 50 mg, Oral, Bedtime amlodipine, 10 mg, Oral, Daily Ativan 0.5 mg Tab, 0.5 mg= 1 tab(s), Oral, qAM Ativan 1 mg Tab, 1 mg= 1 tab(s), Oral, Bedtime atorvastatin, 10 mg, Oral Breo Ellipta, Inhalation, Daily Breo Ellipta Breo Ellipta 100 mcg-25 mcg inhalation powder, 1 puff(s), Inhalation, Daily busPIRone 10 mg Tab, 30 mg= 3 tab(s), Oral, Daily Creon 36,000 units oral delayed release capsule, 1 cap(s), Oral, TID doxepin, 100 mg, Oral Fetzima, 60 mg, Oral, Daily Fetzima 20 mg oral capsule, extended release, See Instructions furosemide, 20 mg, Oral, Daily hydrochlorothiazide 25 mg Tab, 25 mg= 1 tab(s), Oral, Daily, Not taking: per noms insulin aspart, See Instructions insulin degludec, See Instructions insulin glargine, 20 unit(s), SubCutaneous, BID, Not taking: not taking per noms insulin lispro, 0-10 units, SubCutaneous, QIDACHS lisinopril, 10 mg, Oral losartan 50 mg Tab, 100 mg= 2 tab(s), Oral, Daily, Not taking: per [facility] Metoprolol tartrate 25 mg Tab, 25 mg= 1 tab(s), Oral, BID, Not taking: per [facility] med list Miralax 3350 17 gram packet, Oral, Daily, Not taking: per medication list from [facility] mirtazapine, 45 mg, Oral, Once a day (at bedtime) pancrelipase, See Instructions Pantoprazole [address] Tab, 40 mg= 1 tab(s), Oral, Daily pregabalin 150 mg Cap, 150 mg= 1 cap(s), Oral, BID tamsulosin 0.4 mg Cap, 0.4 mg= 1 cap(s), Oral, Daily Ventolin HFA 90 mcg/inh Aerosol-Adpt, 1 puff(s), Inhalation, q4hr Vitamin D, 50 mcg, Oral Plan for discharge discussed with attending, Dr. Angelo. Follow-up With When Contact Information TIKI DOCKERY DO [address], [facility] [address] [place] [address]- Additional Instructions: Patient Education Colitis Patient had improved recovery of colitis and exam. His recovery was better than expected considering his admission and HOD 1 physical exam with concerns for possible peritonitisUniversity [facility]als [facility] CenterComment on above:Result Comment: Electronically Signed By: Jesse Angelo DO\.br\Date and Time Signed: 10/07/23 13:16 [id number] NoteMicrobiology PROCEDURE: Blood Culture Charcoal [R1] SOURCE: Blood BODY SITE: Chest COLLECTED DATE/TIME: 10/05/2023 01:45 EDT RECEIVED DATE/TIME: 10/05/2023 02:37 EDT START DATE/TIME: 10/05/2023 02:37 EDT FREE TEXT SOURCE: Chelsea Vasquez DO, DO, Kaylinn A FINAL REPORTS Final Report [] Verified Date/Time: 10/07/2023 11:37 EDT Escherichia coli In 2 of 2 blood culture bottles drawn. Isolated from aerobic and anaerobic bottles Preliminary gram stain result of gram negative rods Result called to [facility] by [facility] and results read back for confirmation on 10/05/2023 17:56:10 SUSCEPTIBILITY RESULTS LEGEND: S=Susceptible, N/R=Not Reported, Blank=Data not available, or drug not advisable or tested, I=Intermediate, ESBL=Extended spectrum beta-lactamase, R=Resistant, TFG=Thymidine-dependent strain, DAVIE=Beta-lactamase positive, DEVIN=mcg/m;(mg/L), S*=Predicted susceptible interp, R*=Predicted resistant interp EC Antibiotic DEVIN Dilutn DEVIN Interp Ampicillin <=8 S Ampicillin/ <=8/4 S Sulbactam Aztreonam <=4 S Cefazolin <=2 S Cefepime <=2 S Ceftazidime <=1 S Ceftazidime/ <=8 S Avibactam Ceftriaxone <=1 S Cefuroxime <=4 S Ciprofloxacin >2 R Ertapenem <=0.5 S Gentamicin <=2 S Levofloxacin >4 R Meropenem <=1 S Piperacillin/ <=8 S Tazobactam Tetracycline <=4 S Tobramycin <=2 S Trimethoprim/ <=2/38 S Sulfa Performing Locations R1: This test was performed at: [facility], [address] [place] [address], [id number] , , LluifrUniversity Hospitals Lake West Medical CenterComment on above:Performed By: #### [id number] #### [facility] [address] [id number] NoteMicrobiology PROCEDURE: Blood Culture Charcoal [R1] SOURCE: Blood BODY SITE: Arm L COLLECTED DATE/TIME: 10/05/2023 01:40 EDT RECEIVED DATE/TIME: 10/05/2023 02:38 EDT START DATE/TIME: 10/05/2023 02:38 EDT FREE TEXT SOURCE: Chelsea [address] DO, DO, Kaylinn A FINAL REPORTS Final Report [] Verified Date/Time: 10/07/2023 11:37 EDT Escherichia coli In 2 of 2 blood culture bottles drawn. Isolated from aerobic and anaerobic bottles Preliminary gram stain result of gram negative rods Result called to Dennise Carias CNP by [facility] and results read back for confirmation on 10/05/2023 17:57. SUSCEPTIBILITY RESULTS LEGEND: S=Susceptible, N/R=Not Reported, Blank=Data not available, or drug not advisable or tested, I=Intermediate, ESBL=Extended spectrum beta-lactamase, R=Resistant, TFG=Thymidine-dependent strain, DAVIE=Beta-lactamase positive, DEVIN=mcg/m;(mg/L), S*=Predicted susceptible interp, R*=Predicted resistant interp EC Antibiotic DEVIN Dilutn DEVIN Interp Ampicillin <=8 S Ampicillin/ <=8/4 S Sulbactam Aztreonam <=4 S Cefazolin <=2 S Cefepime <=2 S Ceftazidime <=1 S Ceftazidime/ <=8 S Avibactam Ceftriaxone <=1 S Cefuroxime <=4 S Ciprofloxacin >2 R Ertapenem <=0.5 S Gentamicin <=2 S Levofloxacin >4 R Meropenem <=1 S Piperacillin/ <=8 S Tazobactam Tetracycline <=4 S Tobramycin <=2 S Trimethoprim/ <=2/38 S Sulfa Performing Locations R1: This test was performed at: [facility], [address] [place] [address], [id number] , , GxddpxUniversity Hospitals Lake West Medical CenterComment on above:Performed By: #### [id number] #### [facility] [address] [place] [address] [phone] NoteProgress Note - Pharmacy Vancomycin Pharmacy to Dose Consult Note Indication: Empiric Treatment Goal Range: AUC/DEVIN 400-600 RECOMMENDATIONS/PLAN: Pharmacy consulted for vancomycin dosing for ALTAGRACIA CONWAY, a 68 Years old, Male who is being treated for empiric treatment. 1. Vanco Status: Vancomycin therapy is still active, today is day 1 of treatment. Patient is receiving vancomycin 1500 mg IV q 18 hours 2. Vanco Level: No vancomycin level has been drawn for this dosing regimen 3. Dosing Recs: new start 4. Next Level: the next paired levels are scheduled. Peak at 0430 on 10/07 and trough at 1900 on 10/07 5. MRSA Nasal Swab? a MRSA Nasal swab is not appropriate at this time We will follow patient renal function, vancomycin levels and doses with you during the course of therapy. Additional recommendations will appear in follow up notes. If you have any questions please contact the pharmacy at extension [phone]. Age: 68 Years Allergies: Ragweed Weight: Last Documented Weight and Type of Scale Used Last Documented Weight Weight Measured: 97.3 kg (10/06/23 05:13:00) Type of Scale Used Weight Measured Type of Scale: Bed Scale (digital) (10/05/23 05:05:00) Height: Last Documented Height/Length Last Documented Height/Length Height/Length Measured: 187 cm (10/05/23 05:05:00) CrCl: 63 mL/min (SCr 1.3) Labs: WBC: 18.4 E9/L High (10/06/23 06:25:00) RBC: 3.4 E12/L Low (10/06/23 06:25:00) HGB: 10.2 gm/dL Low (10/06/23 06:25:00) Hct: 30.5 % Low (10/06/23:25:00) MCV: 89.3 fL (10/06/23 06:25:00) MCH: 29.9 pg (10/06/23:25:00) MCHC: 33.5 gm/dL (10/06/23 06:25:00) RDW: 14.9 % High (10/06/23 06:25:00) Platelet: 175 E9/L (10/06/23 06:25:00) MPV: 9.7 fL (10/06/23 06:25:00) Segs Man: 80 % High (10/06/23 06:25:00) Band Man: 9 % High (10/06/23 06:25:00) Lymph Man: 6 % Low (10/06/23 06:25:00) Monocyte Man: 5 % (10/06/23:25:00) Eos Man: 0 % (10/06/23:25:00) Basophil Man: 0 % (10/06/23 06:25:00) Segs Abs Man: 16.4 E9/L (10/06/23 06:25:00) Lymph Abs Man: 1.1 E9/L (10/06/23 06:25:00) Alfalfa Abs Man: 0.9 E9/L (10/06/23 06:25:00) Eos Abs Man: 0 E9/L (10/06/23:25:00) Basophil Abs Man: 0 E9/L (10/06/23 06:25:00) Glucose Lvl: 219 mg/dL High (10/06/23 06:25:00) BUN: 41 mg/dL High (10/06/23 06:25:00) Creatinine: 1.3 mg/dL (10/06/23 06:25:00) eGFR: 60 mL/min/1.73 m2 (10/06/23 06:25:00) BUN/Creat Ratio: 32 High (10/06/23 06:25:00) Sodium Lvl: 135 mmol/L (10/06/23 06:25:00) Potassium Lvl: 5.5 mmol/L High (10/06/23 06:25:00) Chloride: 107 mmol/L (10/06/23 06:25:00) CO2: 22 mmol/L (10/06/23 06:25:00) AGAP: 12 mEq/L (10/06/23 06:25:00) Calcium Lvl: 9 mg/dL (10/06/23 06:25:00) Glucose Cap: 256 mg/dL High (10/06/23 11:12:00) POC Device SN: [id number] (10/06/23 11:12:00) POC User ID: [id number] (10/06/23 11:12:00) POC Username: ELIZABETH FLOWERS (10/06/23 11:12:00)[facility] 10-06-2023 NoteProgress Note-Physician Assessment/Plan PLAN: 1. Acute respiratory failure with hypoxia (J96.01: Acute respiratory failure with hypoxia) w/hypoxia/hypercapnia weaned Procal ++ ? infectious process Azithromycin /Ceftriaxone IV Blood/sputum/Urine pending Supplemental Oxygen 2. COPD exacerbation (J44.1: Chronic obstructive pulmonary disease with (acute) exacerbation) Suspect underlying COPD and Asthma hx Smoker and hx stable 5mm ABE nodule per CTA chest 01/2023 Methylprednisolone IV Med Nebs/flutter/IS/Mucinex Tessalon Perles prn Azithromycin as above. 3. Sepsis (A41.9: Sepsis, unspecified organism) Was likely present on admission and not showing. Leukocytosis w/left shift, bacteremia, w/tachycardia, fevers and tachypnea on admission Vanc/Zosyn See #4 recent hospitalization on 09/18- 09/21/2023 for Proctocolitis w/GI bleed was on vanc/zosyn at that time. Hx Hep C followed by [facility] WBC at that time was 19.9 trended down to 10.7 by d/c-was sent out on Cipro/Flagyl 4. Bacteremia (R78.81: Bacteremia) 06/12 blood cultures showing GNR cx not showing ??? right aram cath ??? Repeat blood cx (port included) 10/05 UA negative. Sputum cx pending. Ceftriaxone 2gram daily Vanc added today. Consider consult ID . 4. History of pancreatic cancer (Z85.07: Personal history of malignant neoplasm of pancreas) -Port in chest wall--consider source of infection. -Continue to follow up w/Oncology Ruby Patel Oxycokay. Prior CT abd/pelvis 09/19/23 showwing circumferential wall thickening of the splenic flexure, descending and rectosigmoid colon w/mild surrounding inflammation. 5. CKD (chronic kidney disease), stage III (N18.30: Chronic kidney disease, stage 3 unspecified) CR trends 1.6-1.7 which pt is currently at baseline. CR 1.3 today. Hold Lasix for now and avoid nephrotoxic meds. 6. DM2 (diabetes mellitus, type 2) (E11.9: Type 2 diabetes mellitus without complications) AccuChecks AC/HS w/ss insulin Typically take long acting insulin 30 units daily was on 20 but inpt will increase to 25 units today. and adjust as needed. 7. HTN (hypertension) (I10: Essential (primary) hypertension) Amlodipine Hold Lasix for now. Hydralazine for SBP 160 prn 8. Hyperlipidemia (E78.5: Hyperlipidemia, unspecified) Statin 9. Anxiety and depression (F41.9: Anxiety disorder, unspecified) Buspirone, Fetzima Ativan at HS 3. Smoker (F17.200: Nicotine dependence, unspecified, uncomplicated) [employer] on cessation Nicotine patch 10. On deep vein thrombosis (DVT) prophylaxis (Z79.899: Other halfway (current) drug therapy) SCDs/Heparin Subjective Pt reports night sweats and sleeping only intermittently last night. ? 3 hours. Complains of headache pain likely from Ceftriaxone. Is showing sepsis today w/leukocytosis, fevers, left shift/ ? rightchest aram cath. Pt has had this port x 3 years no issues. Typically accessed at oncology however did have ??? access for recent UTI tx in ED. Pt denies pain, burning or drainage at site. Urine not showing anything. Sputum cx is pending. Objective Vitals & Measurements T: 36.7 ?C(Axillary) TMIN: 36.6 ?C(Axillary) TMAX: 37 ?C(Oral) HR: 90(Monitored) RR: 18 BP: 151/75 SpO2: 100% WT: 97.3 kg Intake & Output This visit (24 hour periods starting at 07:00 EDT) 10/06/23 * 10/05/23 10/04/23 Total Summary Intake mL 1 1,394.26 274.12 Output mL -- -- -- Fluid Balance 1 1,394.26 274.12 Intake (6) Oral Intake mL -- 550 -- Sodium Chloride 0.9% intravenous solution 1,000 mL mL -- 842.26 -- Sodium Chloride 0.9%, azithromycin mL -- -- 250 Sodium Chloride 0.9%, ceftriaxone mL -- -- 21.62 lorazepam mL -- -- 0.5 methylPREDNISolone mL 1 2 2 Total 1 1,394.26 274.12 Output (0) Counts (1) Urine Count -- 3 -- * This column has not completed the indicated time period. Physical Exam General: NAD Skin: warm, dry, intact. Right chest aram cath. very scant erythema noted . no streaks or drainagenoted around site. Head: no trauma, normocephalic Neck: Trachea midline, no adenopathy, no tenderness Eye: normal conjunctiva, sclera clear ENMT: oral mucosa moist, no pharyngeal erythema or exudate. hearing grossly intact Cardiovascular: regular rate and rhythm, no murmur/gallop/rub Respiratory: Clear to upper lobes w/diminished bases. no wheezes, no rhonchi, no rales Gastrointestinal: Positive bowel sound, soft, non distended, no tenderness, no guarding. Extremities: no deformity, no trauma Neurological: oriented x 4, LOC appropriate for age, CN II-XII intact, motor strength equal & normal bilaterally, sensation equal & normal bilaterally, speech normal Psychiatric: cooperative, affect appropriate for age, normal judgement, normal psychiatric thoughts Lab Results WBC: 18.4 E9/L High (10/06/23 06:25:00) RBC: 3.4 E12/L Low (10/06/23 06:25:00) HGB: 10.2 gm/dL Low (10/06/23 06:25:00) Hct: 30.5 (more content not included)...[facility]Comment on above:Result Comment: Electronically Signed By: Kathi LOVELL\.br\Date and Time Signed: 10/06/23 12:29 EDT\.br\Electronically Co- Signed By: Kathi LOVELL\.br\Date and Time Co-Signed: 10/06/23 12:33 EDT\.br\Electronically Co-Signed By: Kathi LOVELL\.br\Date and TimeCo-Signed: 10/06/23 12:42 EDT\.br\Electronically Co-Signed By: Dario Washington DO\.br\Date andTime Co-Signed: 10/06/23 13:09 [id number] Note Interdisciplinary Note - OT OT evaluation complete. [facility] 6 clicks = no home needs. Pt is able to complete ADL tasks and mobility mod indep with fair safety. Pt with some SOB but reports it is getting better. Educated Pt on PLB techs. No home needs anticipated and no further skilled OT services at this time.[facility]07-28-[facility] NoteInterdisciplinary Note - PT PT evaluation completed w/ no additional PT needs identified. FWW height was raised to his height. Pt is steady w/ the walker. Independent w/ bed mobility & transfers. Discharge to home when medically ready. Initial AM-PAC 6 Clicks score is 23/24.[facility]07-27-2024 NoteProgress Note-Physician Assessment/Plan PLAN: 1. Acute respiratory failure with hypoxia (J96.01: Acute respiratory failure with hypoxia) w/hypoxia/hypercapnia Procal ++ ? infectious process Azithromycin /Ceftriaxone IV Blood/sputum/Urine pending Supplemental Oxygen 2. COPD exacerbation (J44.1: Chronic obstructive pulmonary disease with (acute) exacerbation) Suspect underlying COPD and Asthma hx Smoker and hx stable 5mm ABE nodule per CTA chest 01/2023 Methylprednisolone IV Med Nebs/flutter/IS/Mucinex Tessalon Perles prn Azithromycin as above. 3. Smoker (F17.200: Nicotine dependence, unspecified, uncomplicated) [employer] on cessation Nicotine patch 4. History of pancreatic cancer (Z85.07: Personal history of malignant neoplasm of pancreas) -Port in chest wall -Continue to follow up w/Oncology Creon, Lyrica, Oxycodone 5. CKD (chronic kidney disease), stage III (N18.30: Chronic kidney disease, stage 3 unspecified) CR trends 1.6-1.7 which pt is currently at baseline. Hold Lasix for now and avoid nephrotoxic meds. 6. DM2 (diabetes mellitus, type 2) (E11.9: Type 2 diabetes mellitus without complications) AccuChecks AC/HS w/ss insulin Typically take long acting insulin 30 units daily will decrease to 20 units for now while inpt and adjust as needed. 7. HTN (hypertension) (I10: Essential (primary) hypertension) Amlodipine Hold Lasix for now. Hydralazine for SBP 160 prn 8. Hyperlipidemia (E78.5: Hyperlipidemia, unspecified) Statin 9. Anxiety and depression (F41.9: Anxiety disorder, unspecified) Buspirone, Fetzima Ativan at HS 10. On deep vein thrombosis (DVT) prophylaxis (Z79.899: Other emt intermediate (current) drug therapy) SCDs/Heparin Orders: amlodipine, 10 mg = 1 tab(s), Tab, Oral, Daily, Routine, Start date 10/05/23 9:00:00 EDT, 10/05/23 6:15:00 EDT azithromycin + Sodium Chloride 0.9% intravenous solution 250 mL, 500 mg = 1 EA, Injection, IV Piggyback, Daily, Routine, Start date 10/06/23 9:00:00 EDT, 250 mL/hr, Infuse over 60 minute(s) busPIRone, 30 mg = 3 tab(s), Tab, Oral, Bedtime, Routine, Start date 10/05/23 21:00:00 EDT furosemide, 20 mg = 1 tab(s), Tab, Oral, Daily, Routine, Start date 10/05/23 9:00:00 EDT, 10/05/23 6:16:00 EDT glucose, 50 mL, Soln-IV, IV Push, Once PRN Blood glucose, Routine, Start date 10/05/23 7:51:00 EDT insulin glargine, 20 unit(s) = 0.2 mL, Injection-Insulin, SubCutaneous, Daily for 30 day(s), Stop date 11/04/23 9:59:00 EDT, Start date 10/05/23 10:00:00 EDT insulin lispro, 0-10 Unit(s), Injection-Insulin, SubCutaneous, QIDACHS, Routine, Start date 10/05/23 11:30:00 EDT methylPREDNISolone, 40 mg = 1 mL, Injection, IV Push, q12hr, Routine, Start date 10/05/23 9:00:00 EDT oxycodone, 10 mg = 2 tab(s), Tab, Oral, QID PRN Pain for 5 day(s), Stop date 10/10/23 10:34:00 EDT,Routine, Start date 10/05/23 10:35:00 EDT Patient Specific Meds, Fetzima 40 mg capsule, Normal Patient Dose, Each, Oral, Daily, Routine, Start date 10/05/23 13:00:00 EDT Patient Specific Meds, Creon 36,000 unit capsule, Normal Patient Dose, Each, Oral, TIDWM, Routine, Start date 10/05/23 12:00:00 EDT Sodium Chloride 0.9% intravenous solution 1,000 mL, 1,000 mL, IV, 75 mL/hr, Routine, Start date 10/05/23 14:08:00 EDT, 13.3 hour(s), Total volume (mL): 1,000, 103 kg, 2.31, m2 Basic Metabolic Panel Basic Metabolic Panel Cardiac Diet CBC w/ Auto Diff CBC w/ Auto Diff Communication Order Communication Order CTA Chest eGFR HgbA1c Hypoglycemia Protocol Responsive Patient Hypoglycemia Protocol Unresponsive Patient Routine Capillary Glucose POC UA with Cult Rflx Subjective pt seen at bedside this AM. States he is able to breath better than on admission. pt is on 2L/min per cannula currently. Still dyspneic w/activity or prolonged speech. Denies having fevers, chills, CP. Does complain of RUQ pain but states that has been chronic. Objective Vitals & Measurements T: 36.6 ?C(Axillary) TMIN: 36.4 ?C(Axillary) TMAX: 37.5 ?C(Oral) HR: 69(Monitored) RR: 20 BP: 108/66 SpO2: 97% HT: 187 cm WT: 97.3 kg Intake & Output This visit (24 hour periods starting at 07:00 EDT) 10/05/23 * 10/04/23 10/03/23 Total Summary Intake mL 1 274.12 -- Output mL -- -- -- Fluid Balance 1 274.12 -- Intake (4) Sodium Chloride 0.9%, azithromycin mL -- 250 -- Sodium Chloride 0.9%, ceftriaxone mL -- 21.62 -- lorazepam mL -- 0.5 -- methylPREDNISolone mL 1 2 -- Total 1 274.12 -- Output (0) Counts (0) * This column has not completed the indicated time period. Physical Exam General: alert, no acute distress Skin: warm, dry Head: no trauma, normocephalic Neck: Trachea midline, no adenopathy, no tenderness Eye: normal conjunctiva, sclera clear ENMT: oral mucosa moist, no pharyngeal erythema or exudate. hearing grossly intact Cardiovascular: regular rate and rhythm, no murmur/gallop/rub Respiratory: Bilateral wheezes, no rhonchi (more content not included)...[facility] CenterComment on above:Result Comment: Electronically Signed By: Kathi LOVELL\.br\Date and Time Signed: 10/05/23 14:13 EDT\.br\Electronically Co-Signed By: Dario Washington DO\.br\Date and Time Co-Signed:10/05/23 15:40 [id number] NoteHistory and Physical Basic Information Admit Date/Time:10/05/2023 02:48 Chief Complaint pt to ED with c/o SOB. dry mouth noted. cough noted. states CP intermittenty for 3 years. hx of COPD, not on home O2, speaking in short sentences. states CA survivor with R chest port in place. denies known fevers, c/o chills. History of Present Illness Patient is a 68-year-old male with past medical history as noted below comes in with above-stated chief complaint. Patient states that the evening of 10/04/2023 he had sudden onset chest pain and urgency of breath. He has had an associated dry cough over the last few days. Patient states his temperature was approximately 99 ?F at home. Denies any recent nausea, vomiting. He has been having diarrhea/loose stool. He was treated for colitis with antibiotics about 1 week ago. Patient denies any dysuria, headache, vision changes, hearing loss. Patient does continue to smoke cigarettes daily. Review of Systems 14 Systems reviewed and negative except as noted in HPI. Scoring Meléndez Fall Risk Score: 35 (10/05/23) Physical Exam Vitals & Measurements T: 37.5 ?C(Oral) HR: 107(Monitored) RR: 15 BP: 124/59 SpO2: 94% HT: 187 cm WT: 103.0 kg General: alert, no acute distress Skin: warm, dry Head: no trauma, normocephalic Neck: Trachea midline, no adenopathy, no tenderness Eye: normal conjunctiva, sclera clear ENMT: oral mucosa moist, no pharyngeal erythema or exudate. hearing grossly intact Cardiovascular: regular rate and rhythm, no murmur/gallop/rub Respiratory: Bilateral wheezes, no rhonchi, no rales Gastrointestinal: Positive bowel sound, soft, non distended, no tenderness, no guarding. Extremities: no deformity, no trauma Osteopathic: Deferred due to being noncontributory to current case. Neurological: oriented x 4, LOC appropriate for age, CN II-XII intact, motor strength equal & normal bilaterally, sensation equal & normal bilaterally, speech normal Psychiatric: cooperative, affect appropriate for age, normal judgement, normal psychiatric thoughts. Lab Results WBC: 3.6 E9/L Low (10/05/23 01:30:00) RBC: 3.8 E12/L Low (10/05/23:30:00) HGB: 11.4 gm/dL Low (10/05/23:30:00) Hct: 33.7 % Low (10/05/23:30:00) MCV: 89.7 fL (10/05/23:30:00) MCH: 30.4 pg (10/05/23:30:00) MCHC: 33.9 gm/dL (10/05/23:30:00) RDW: 14.6 % High (10/05/23:30:00) Platelet: 216 E9/L (10/05/23:30:00) MPV: 9.1 fL (10/05/23:30:00) Neutro Auto: 92.7 % High (10/05/23:00) Lymph Auto: 4.9 % Low (10/05/23::00) Alfalfa Auto: 0.8 % Low (10/05/23) Eos Auto: 1.3 % (10/05/23) Basophil Auto: 0.3 % (10/05/23::) Neutro Absolute: 3.4 E9/L (10/05/2300) Lymph Absolute: 0.2 E9/L Low (10/05/2300) Alfalfa Absolute: 0 E9/L Low (10/05/23:00) Eos Absolute: 0 E9/L (10/05/23) Basophil Absolute: 0 E9/L (10/05/23) PT: 11.9 second(s) (10/05/23:) INR: 1.06 (10/05/23) PTT: 37.9 second(s) High (10/05/23) Glucose Lvl: 186 mg/dL (10/05/23:00) BUN: 52 mg/dL High (10/05/23) Creatinine: 1.6 mg/dL High (10/05/2300) eGFR: 47 mL/min/1.73 m2 Low (10/05/23:) BUN/Creat Ratio: 32 High (10/05/2300) Sodium Lvl: 132 mmol/L Low (10/05/23::00) Potassium Lvl: 5.4 mmol/L High (10/05/23::00) Chloride: 104 mmol/L (10/05/23:30:00) CO2: 20 mmol/L Low (10/05/23::00) AGAP: 13 mEq/L (10/05/23::00) Calcium Lvl: 9.2 mg/dL (10/05/23:30:00) Lactic Acid Lvl: 1.3 mmol/L (10/05/23:30:00) Troponin HS: 18.1 pg/mL (10/05/23 03:20:00) BNP: <5 (10/05/23 01:30:00) Procalcitonin: 15.35 ng/mL High (10/05/23 03:20:00) Rapid COVID Ag: Not Detected (10/05/23:23:00) Rapid COV Int NEG Ctl: Pass (10/05/23:23:00) Rapid COV Int POS Ctl: Pass (10/05/23:23:00) pH Arterial: 7.4 (10/05/23:42:00) P CO2 Arterial: 33.7 mmHg Low (10/05/23:42:00) P O2 Arterial: 32.4 mmHg Critical (10/05/23:42:00) Base Excess Arterial: -3.3 mmol/L Low (10/05/23:42:00) HCO3 Arterial: 21.1 mmol/L Low (10/05/23:42:00) Total Hgb Art: 11.9 gm/dL Low (10/05/23:42:00) FO2Hb Art: 64.1 % Critical (10/05/23 01:42:00) FCOHb Art: 2.1 % (10/05/23:42:00) FMetHb Art: 0.7 % (10/05/23:42:00) O2 Sat Art: 66 % Low (10/05/23 01:42:00) container finishing inspector+ Art: 133 mmol/L Low (10/05/23 01:42:00) cK+ Art: 5.1 mmol/L (10/05/23 01:42:00) cCa2+ Art: 4.9 mg/dL (10/05/23 01:42:00) cCl- Art: 107 mmol/L (10/05/23 01:42:00) cGlu Art: 189 mg/dL High (10/05/23 01:42:00) cLac Art: 1.4 mmol/L (10/05/23 01:42:00) AaDO2 Art: 75.7 mmHg High (10/05/23 01:42:00) a/A Ratio Art: 30 % (10/05/23 01:42:00) Sample Type: Mixed Venous (10/05/23 01:42:00) Sample Site: R Radial (10/05/23 01:42:00) FIO2 B (10/05/23 01:42:00) Allens Test: Positive1 (10/05/23 01:42:00) Drawn by: wmb (10/05/23 01:42:00) Assessment/Plan 1. COPD exacerbation (J44.1: Chronic obstructive pulmonary disease with (more content not included)...[facility] CenterComment on above:Result Comment: Electronically Signed By: Nereida CA DO\.br\Date and Time Signed: 10/05/23 04:23 [id number] NoteProgress Note-Physician Basic Information ALTAGRACIA CONWAY is a 68 Years-old Male with a PMHx of hypertension and diabetes who presents to the ER complaining of abdominal pain and bright red blood per rectum. EGS workup concerning for colitis and lower GI bleed Subjective No acute events overnight. Patient states he did hard time sleeping because he was restless. Patient reports abdominal pain is improving. Leukocytosis downtrending, creatinine downtrending, potassium appropriate today. C. difficile negative. Review of Systems All organ systems are reviewed. Pertinent positive and negative findings as mentioned in the HPI. Objective Vitals & Measurements T: 36.7 ?C(Oral) TMIN: 36.5 ?C(Oral) TMAX: 36.9 ?C(Oral) HR: 62(Monitored) RR: 15 BP: 135/70 SpO2: 95% WT: 98.7 kg Intake & Output This visit (24 hour periods starting at 07:00 EDT) 09/20/23 * 09/19/23 09/18/23 Total Summary Intake mL 0.5 1,827.52 1,064 Output mL 1 -- -- Fluid Balance -0.5 1,827.52 1,064 Intake (7) Sodium Chloride 0.9% mL -- -- 1,000 Sodium Chloride 0.9% intravenous solution 1,000 mL mL -- 1,608.28 -- Sodium Chloride 0.9%, piperacillin-tazobactam mL -- 217.54 50 hydromorphone mL 0.5 1.7 1 morphine mL -- -- 1 ondansetron mL -- -- 2 pantoprazole mL -- -- 10 Total 0.5 1,827.52 1,064 Output (1) Urine Voided mL 1 -- -- Total 1 -- -- Counts (1) Stool Count -- -- 2 * This column has not completed the indicated time period. Physical Exam GENERAL: alert, pleasant, conversational. Significant other in room. Patient sitting up in chair. HEENT: normocephalic. oral mucosa moist. CARDIOVASCULAR: RRR. PULMONARY: CTAB. breathing comfortably on room air ABDOMINAL: Abdomen is mildly distended. There is tenderness palpation of the left upper and lower quadrant without rebound or guarding. Exam improved from previous. EXTREMITIES: moves all extremities with equal strength NEUROLOGICAL: AxO x3 Lab Results WBC: 15.6 E9/L High (09/20/23 06:20:00) RBC: 3.9 E12/L Low (09/20/23 06:20:00) HGB: 11.9 gm/dL Low (09/20/23 06:20:00) Hct: 34.4 % Low (09/20/23 06:20:00) MCV: 87.8 fL (09/20/23 06:20:00) MCH: 30.2 pg (09/20/23 06:20:00) MCHC: 34.5 gm/dL (09/20/23 06:20:00) RDW: 14.5 % High (09/20/23 06:20:00) Platelet: 161 E9/L (09/20/23 06:20:00) MPV: 9.1 fL (09/20/23 06:20:00) Neutro Auto: 83 % High (09/20/23 06:20:00) Lymph Auto: 10 % Low (09/20/23 06:20:00) Alfalfa Auto: 5.6 % (09/20/23 06:20:00) Eos Auto: 1.2 % (09/20/23 06:20:00) Basophil Auto: 0.2 % (09/20/23 06:20:00) Neutro Absolute: 12.9 E9/L High (09/20/23 06:20:00) Lymph Absolute: 1.6 E9/L (09/20/23 06:20:00) Alfalfa Absolute: 0.9 E9/L (09/20/23 06:20:00) Eos Absolute: 0.2 E9/L (09/20/23 06:20:00) Basophil Absolute: 0 E9/L (09/20/23 06:20:00) Glucose Lvl: 139 mg/dL (09/20/23 06:20:00) BUN: 37 mg/dL High (09/20/23 06:20:00) Creatinine: 1.4 mg/dL High (09/20/23 06:20:00) eGFR: 55 mL/min/1.73 m2 Low (09/20/23 06:20:00) BUN/Creat Ratio: 26 High (09/20/23 06:20:00) Sodium Lvl: 134 mmol/L Low (09/20/23 06:20:00) Potassium Lvl: 4.6 mmol/L (09/20/23 06:20:00) Chloride: 105 mmol/L (09/20/23 06:20:00) CO2: 22 mmol/L (09/20/23 06:20:00) AGAP: 12 mEq/L (09/20/23 06:20:00) Calcium Lvl: 8.9 mg/dL (09/20/23 06:20:00) Lactic Acid Lvl: 0.8 mmol/L (09/19/23 16:46:00) Magnesium: 1.9 mg/dL (09/20/23 06:20:00) Glucose Cap: 152 mg/dL High (09/20/23 06:48:00) POC Device SN: [id number] (09/20/23 06:48:00) POC User ID: [id number] (09/20/23 06:48:00) POC Username: GINA VLADIMIR (09/20/23 06:48:00) UA Spec Desc: Clean Catch (09/20/23 10:01:00) UA Color: Light-Yellow (09/20/23 10:01:00) UA Clarity: Clear (09/20/23 10:01:00) UA Spec Grav: 1.028 (09/20/23 10:01:00) UA pH: 6.5 (09/20/23 10:01:00) UA Protein: 1+ Abnormal (09/20/23 10:01:00) UA Glucose: Negat (09/20/23 10:01:00) UA Ketones: 1+ Abnormal (09/20/23 10:01:00) UA Bili: Negat (09/20/23 10:01:00) UA Blood: 1+ Abnormal (09/20/23 10:01:00) UA Nitrite: Negat (09/20/23 10:01:00) UA Urobilinogen: Negat (09/20/23 10:01:00) UA Leuk Est: 75 Derick/uL Abnormal (09/20/23 10:01:00) UA RBC: 0-3 (09/20/23 10:01:00) UA WBC: 6-15 Abnormal (09/20/23 10:01:00) UA Mucous: Negat (09/20/23 10:01:00) Clostridium difficile by PCR: NEGATIVE1 (09/19/23 20:28:00) Cdiff Specimen Acceptable: Acceptable (09/19/23 20:28:00) Order Cancelled: No, PCR to follow (09/19/23 20:28:00) Assessment/Plan 1. Lower GI bleed (K92.2: Gastrointestinal hemorrhage, unspecified) Ordered: Clear Liquid Diet Proctocolitis (K52.9: Noninfective gastroenteritis and colitis, unspecified) ASSESSMENT: ALTAGRACIA CONWAY is a 68 Years-old Male with a PMHx of hypertension and diabetes who presents to the ER complaining of abdominal pain and bright red blood per rectum. EGS workup concerning for colitis. PLAN: - Patient clinically improv (more content not included)...[facility] CenterComment on above:Result Comment: Electronically Signed By: Theodora Salas PA-C\.br\Date and Time Signed: 09/20/23 10:53 EDT\.br\Electronically Co- Signed By: Jesse Angelo DO\.br\Date and Time Co-Signed: 09/22/23 18:50 [id number] NoteProgress Note-Physician INTERVAL HISTORY/EVENTS Background: Basic Information ALTAGRACIA CONWAY is a 68 Years-old Male with a PMHx of hypertension and diabetes who presents to the ER complaining of abdominal pain and bright red blood per rectum. EGS workup concerning for colitis and lower GI bleed Hospital Course: 09/19/2023: Admitted to EGS for colitis, complaints of bright red blood per rectum, hyperkelamia in setting of CKD given lokelma 09/20/2023: Down trend in leukocytosis, Cr, potassium appropriate, Cdiff negative started on CLD 24 Hour Events: No acute events overnight Reports well controlled abdominal pain, primary discomfort is from hospital bed Reports no additional episodes of bright red blood per rectum since yesterday afternoon Tolerating CLD without n/v Voiding spontaneously Up, ambulating in room This visit (24 hour periods starting at 07:00 EDT) 09/21/23 * 09/20/23 09/19/23 Total Summary Intake mL -- 2 1,827.52 Output mL -- 1 -- Fluid Balance -- 1 1,827.52 Intake (3) Sodium Chloride 0.9% intravenous solution 1,000 mL mL -- -- 1,608.28 Sodium Chloride 0.9%, piperacillin-tazobactam mL -- -- 217.54 hydromorphone mL -- 2 1.7 Total -- 2 1,827.52 Output (1) Urine Voided mL -- 1 -- Total -- 1 -- Counts (0) * This column has not completed the indicated time period. PHYSICAL EXAM Vital Signs: Vital Signs (last 24 hrs) Last Charted Temp Axillary H 36.9 DegC (SEP 20 07:34) Heart Rate Apical 74 bpm (SEP 20 09:45) SBP H 174 mmHg (SEP 20 09:50) DBP 70 mmHg (SEP 20 09:50) Weight 98.7 kg (SEP 20 06:39) GENERAL: alert, pleasant, conversational. Resting in bedside chair, visitor at bedside HEENT:normocephalic, oral mucosa moist CARDIOVASCULAR: RRR PULMONARY: Breathing comfortably on room air, symmetric chest rise ABDOMINAL: Soft, ND, mild LLQ tenderness without rebound or guarding EXTREMITIES: moves all extremities with equal strength, no edema NEUROLOGICAL: alert and oriented x 3 LABORATORY RESULTS (LAST 24 HOURS) WBC: 10.7 E9/L (09/21/23 06:05:00) RBC: 3.5 E12/L Low (09/21/23 06:05:00) HGB: 10.8 gm/dL Low (09/21/23 06:05:00) Hct: 31.1 % Low (09/21/23 06:05:00) MCV: 87.9 fL (09/21/23 06:05:00) MCH: 30.6 pg (09/21/23 06:05:00) MCHC: 34.8 gm/dL (09/21/23 06:05:00) RDW: 14.4 % High (09/21/23 06:05:00) Platelet: 140 E9/L Low (09/21/23 06:05:00) MPV: 8.5 fL (09/21/23 06:05:00) Neutro Auto: 77.2 % High (09/21/23 06:05:00) Lymph Auto: 13.7 % Low (09/21/23 06:05:00) Alfalfa Auto: 5.2 % (09/21/23 06:05:00) Eos Auto: 3.3 % (09/21/23 06:05:00) Basophil Auto: 0.6 % (09/21/23 06:05:00) Neutro Absolute: 8.2 E9/L High (09/21/23 06:05:00) Lymph Absolute: 1.5 E9/L (09/21/23 06:05:00) Alfalfa Absolute: 0.6 E9/L (09/21/23 06:05:00) Eos Absolute: 0.4 E9/L (09/21/23 06:05:00) Basophil Absolute: 0.1 E9/L (09/21/23 06:05:00) Glucose Lvl: 124 mg/dL (09/21/23 06:05:00) BUN: 27 mg/dL High (09/21/23 06:05:00) Creatinine: 1.4 mg/dL High (09/21/23 06:05:00) eGFR: 55 mL/min/1.73 m2 Low (09/21/23 06:05:00) BUN/Creat Ratio: 19 (09/21/23 06:05:00) Sodium Lvl: 137 mmol/L (09/21/23 06:05:00) Potassium Lvl: 4.3 mmol/L (09/21/23 06:05:00) Chloride: 108 mmol/L (09/21/23 06:05:00) CO2: 22 mmol/L (09/21/23 06:05:00) AGAP: 11 mEq/L (09/21/23 06:05:00) Calcium Lvl: 8.8 mg/dL Low (09/21/23 06:05:00) Phosphorus: 2.4 mg/dL (09/21/23 06:05:00) Magnesium: 1.8 mg/dL (09/21/23 06:05:00) Glucose Cap: 133 mg/dL High (09/21/23 07:10:00) POC Device SN: [id number] (09/21/23 07:10:00) POC User ID: [id number] (09/21/23 07:10:00) POC Username: POC Username (09/21/23 07:10:00) IMAGING RESULTS (PERSONALLY REVIEWED) All admit imaging and follow up imaging reviewed. No new imaging. ASSESSMENT & PLAN Assessment: ALTAGRACIA CONWAY is a 68 Years-old Male with a PMHx of hypertension and diabetes who presents to the ER complaining of abdominal pain and bright red blood per rectum. EGS workup concerning for colitis. Now with improved abdominal pain. Tolerating CLD. Plan: - Advance diet to regular 09/20 - DC prn IV pain medication, start tylenol 650 mg q6 hours, oxycodone 5/10 mg PRN for moderate/ severe pain - HLIV. Hyperkalemia noted, likely related to CKD. Lokelma ordered 3 times daily - Maintain O2 sats > 94%. Continue pulmonary toilet, encourage IS. - Zosyn q6hrs for colitis, will plan for transition to PO cipro/ flagyl on discharge for additional7 days - No indication for transfusion - Continue SCDs and heparin subq for DVT ppx. - Maintain PIVs - hx htn, hold home lisinopril. prn hydralazine - No indication for (more content not included)...[facility] Comment on above:Result Comment: Electronically Signed By: Margaret Sánchez PA-C\.br\Date and Time Signed: 09/21/23 10:24 EDT\.br\Electronically Co-Signed By: Margaret Sánchez PA-C\.br\Date and Time Co-Signed: 09/21/23 13:00 EDT\.br\Electronically Co-Signed By: Jesse Angelo DO\.br\Date and Time Co-Signed: 09/22/23 18:47 [id number] Hospital Discharge instructions Patient Education 09/21/2023 11:36:33 Colitis Colitis Colitis is a condition in which the colon is inflamed. It can cause diarrhea, blood in the stool, and abdominal pain. Colitis can last a short time (be acute), or it may last a long time (become chronic). What are the causes? This condition may be caused by: Infections from viruses or bacteria. A reaction to medicine. Certain autoimmune diseases, such as Crohn's disease or ulcerative colitis. Radiation treatment. Decreased blood flow to the bowel (ischemia). What are the signs or symptoms? Symptoms of this condition include: Diarrhea, blood in the stool, or black, tarry stool. Pain in the joints or abdominal pain. Fever or fatigue. Vomiting. Weight loss. Bloating. Having fewer bowel movements than usual. A strong and sudden urge to have a bowel movement. Feeling like the bowel is not empty after a bowel movement. How is this diagnosed? This condition may be diagnosed based on a stool test and a blood test. You may also have other tests, such as: X-rays. CT scan. Colonoscopy. Endoscopy. Biopsy. How is this treated? Treatment for this condition depends on the cause. This condition may be treated with: Steps to rest the bowel, such as not eating or drinking for a period of time. Fluids that are given through an IV. Medicine for pain and diarrhea. Antibiotic medicines. Cortisone medicines. Surgery. Follow these instructions at home: Eating and drinking Follow instructions from your health care provider about eating or drinking restrictions. Drink enough fluid to keep your urine pale yellow. Work with a dietitian to determine whether certain foods cause your condition to flare up. Avoid foods or drinks that cause flare-ups. Eat a well-balanced diet. General instructions You were prescribed an antibiotic medicine, take it as told by your health care provider. Do not stop taking the antibiotic even if you start to feel better. Take mxfo-hwf-[id number] and prescription medicines only as told by your health care provider. Keep all follow-up visits. This is important. Contact a health care provider if: Your symptoms do not go away. You develop new symptoms. Get help right away if: You have a fever that does not go away with treatment. You develop chills. You have extreme weakness, fainting, or dehydration. You vomit repeatedly. You develop severe pain in your abdomen. You pass bloody or tarry stool. Summary Colitis is a condition in which the colon is inflamed. Colitis can last a short time (be acute), jacquie may last a long time (become chronic). Treatment for this condition depends on the cause and may include resting the bowel, taking medicines, or having surgery. You were prescribed an antibiotic medicine, take it as told by your health care provider. Do not stop taking the antibiotic even if you start to feel better. Get help right away if you develop severe pain in your abdomen. Keep all follow-up visits. This is important. This information is not intended to replace advice given to you by your health care provider. Make sure you discuss any questions you have with your health care provider. Document Revised: 11/01/2020 Document Reviewed: 11/01/2020 [employer] Patient Education 2022 [employer]. Follow Up Care 09/19/2023 00:30:53 With:SARKIS TIKI Address: [address], [address] [place] [address]- When: Unknown [facility]07-11-2024 Evaluation + Plan noteExtracted from: Title:ED Note Author:Mainor Hamilton DO Date :09/19/23 Proctocolitis (K52.9: Noninf ective gastroenteritis and colitis, unspecified) Orders: HYDROmorphone, 0.5 mg = 0.5 mL, Injection, IV Push, Once, Stop date 09/19/23 2:36:00 EDT, STAT, Start date 09/19/23 2:36:00 EDT, 09/19/23 2:36:00 EDT HYDROmorphone, 0.5 mg = 0.5 mL, Injection, IV Push, Once, Stop date 09/19/23 6:05:00 EDT, STAT, Start date 09/19/23 6:05:00 EDT, 09/19/23 6:05:00 EDT Lactated Ringers Injection 1,000 mL, 1,000 mL, IV, 100 mL/hr, STAT, Start date 09/19/23 6:05:00 EDT, 10 hour(s), Total volume (mL): 1,000, 98.8 kg, 2.27, m2 morphine, 4 mg = 1 mL, Injection, IV Push, Once, Stop date 09/19/23 0:40:00 EDT, STAT, Start date 09/19/23 0:40:00 EDT, 09/19/23 0:40:00 EDT ondansetron, 4 mg = 2 mL, Injection, IV Push, Once, Stop date 09/19/23 0:40:00 EDT, STAT, Start date 09/19/23 0:40:00 EDT, 09/19/23 0:40:00 EDT pantoprazole, 40 mg = 10 mL, Injection, IV Push, Once, Stop date 09/19/23 0:40:00 EDT, STAT, Start date 09/19/23 0:40:00 EDT, 09/19/23 0:40:00 EDT piperacillin-tazobactam + Sodium Chloride 0.9% intravenous solution 50 mL, 3.375 gm = 1 EA, Injection, IV Piggyback, Once, Stop date 09/19/23 6:05:00 EDT, STAT, Start date 09/19/23 6:05:00 EDT, 100 mL/hr, Infuse over 30 minute(s) Sodium Chloride 0.9% intravenous solution, 1,000 mL, Soln-IV, IV, Once, Stop date 09/19/23 0:41:00 EDT, STAT, Start date 09/19/23 0:41:00 EDT, Infuse over 61, minute(s) ABO/Rh ABO/Rh History Check Antibody Screen Basic Metabolic Panel Blood Bank ID# CBC w/ Auto Diff CT Abdomen/Pelvis w/ Contrast eGFR Hepatic Function Panel Lipase Level NPO Diet Place in Status Saline Lock Insert UA with Cult Rflx Future Appointments Appointment Date:10/08/2023 10:00:00 AM Scheduled Provider:Donna Johnson Location:[facility] Appointment Type:URO New Patient [facility]07-11-2024 NoteHistory and Physical EMERGENCY GENERAL SURGERY CONSULT / H&P Patient Name: ALTAGRACIA CONWAY Admission Date: 09/19/2023 HISTORY OF PRESENT ILLNESS ALTAGRACIA CONWAY is a 68 Years-old Male with a PMHx of hypertension and diabetes who presents to the ER complaining of abdominal pain and bright red blood per rectum. atient states this for started yesterday evening and has been worsening. He is having multiple bright red bloody stools. He states he has pain mainly across his lower abdomen with this. He has had some nausea and vomiting as well. He denies any fever or chills. He denies any urinary symptoms. He reports that he had a colonoscopy approximately 2 years ago and that it was normal at the time. He takes baby aspirin but denies any other blood thinners. 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 PRE-ADMISSION MEDICATIONS: albuterol: 1 puff(s), Inhalation, q4hr amitriptyline: 50 mg, Oral, Bedtime amlodipine: 10 mg, Oral, Daily aspirin: 81 mg = 1 tab(s), Chewed, Daily atorvastatin: 10 mg, Oral busPIRone: 30 mg = 3 tab(s), Oral, BID doxepin: 100 mg, Oral ergocalciferol: 50 mcg, Oral fluticasone-vilanterol fluticasone-vilanterol: Inhalation, Daily furosemide: 20 mg, Oral, Daily hydrochlorothiazide: 25 mg = 1 tab(s), Oral, Daily, Hold this medication until po intake improves insulin aspart: See Instructions insulin degludec: See Instructions, 30 units qAM insulin glargine: 20 unit(s), SubCutaneous, BID insulin lispro: 0-10 units, SubCutaneous, QIDACHS levomilnacipran: 60 mg, Oral, Daily levomilnacipran: See Instructions lisinopril: 10 mg, Oral lorazepam: 0.5 mg = 1 tab(s), Oral, qAM lorazepam: 1 mg = 1 tab(s), Oral, Bedtime losartan: 100 mg = 2 tab(s), Oral, Daily, Hold for sbp 110 or less metoprolol: 25 mg = 1 tab(s), Oral, BID, Hold for sbp 110 or less or HR 55 or less mirtazapine: 45 mg, Oral, Once a day (at bedtime) pancrelipase: See Instructions pancrelipase: 1 cap(s), Oral, TID pantoprazole: 40 mg = 1 tab(s), Oral, Daily polyethylene glycol 3350: Oral, Daily pregabalin: 150 mg = 1 cap(s), Oral, BID tamsulosin: 0.4 mg = 1 cap(s), Oral, Daily ALLERGIES: Allergies (1) Active Severity Reaction Ragweed None Documented SOCIAL HISTORY: Social & Psychosocial History Social History Alcohol Denies Alcohol Use Current Comment: tasha (02/22/2019 13:15 Starla Cline RN) Current Comment: denies (07/12/2018 09:30 Roxy Brand RN) Current Comment: tasha (04/30/2017 21:42 Roxy Brand RN) Substance Abuse High Risk Current, Marijuana, Daily Current Comment: tasha (02/22/2019 13:15 Starla Cline RN) Current Comment: denibeth (07/12/2018 09:31 Roxy Brand RN) Tobacco High Risk 10 or more cigarettes (1/2 pack or more)/day in last 30 days Tobacco Use:. Cigarettes 10 or more cigarettes (1/2 pack or more)/day in last 30 days Tobacco Use:. Yes 10 or more cigarettes (1/2 pack or more)/day in last 30 days Tobacco Use:. Cigarettes, Ready to change: Yes. 10 or more cigarettes (1/2 pack or more)/day in last 30 days Tobacco Use:. Cigarettes, Ready to change: No. Household tobacco concerns: No. Yes 10 or more cigarettes (1/2 pack or more)/day in last 30 days Tobacco Use:. Comment: 1 pack every week (07/12/2018 09:31 Roxy Brand RN) 10 or more cigarettes (1/2 pack or more)/day in last 30 days Tobacco Use:. Cigarettes Comment: /2 ppd (04/30/2017 21:41 Roxy Brand RN) Current Every Day Smoker, Cigarettes Comment: 3-6 cigarettes a day (05/10/2016 08:35 Alpa Shaw RN) Psychosocial History No active psychosocial history has been recorded FAMILY HISTORY: Father: Pancreatic cancer Mother: Pancreatic cancer Brother: Primary malignant neoplasm of lung REVIEW OF SYSTEMS All organ systems are reviewed. Pertinent positive and negative findings as mentioned in the HPI. PHYSICAL EXAM General: alert?, no acute? distress Skin: warm?, dry? Head: normocephalic? Eye: normal? conjunctiva, sclera clear? ENMT: oral mucosa moist?, Cardiovascular: regular? rate and rhythm, normal? peripheral perfusion Respiratory: Lungs CTA?,respirations non labored? Chest wall: no? deformity. Gastrointestinal: Abdomen is moderately distended, there is tenderness of left lower quadrant without referred pain. Patient does have rebound tenderness. Back: No? tenderness, Normal? ROM, Normal? alignment. Extremities: no? deformity, no? trauma Neurological: oriented x 4?, LOC appropriate for age?, speech (more content not included)...[facility]:Result Comment: Electronically Signed By: Theodora Salas PA-C\.br\Date and Time Signed: 09/19/23 11:55 EDT\.br\Electronically Co-Signed By: Theodora Salas PA-C\.br\Date and Time Co-Signed: 09/19/23 11:58 EDT\.br\Electronically Co-Signed By: Jesse Angelo DO\.br\Date and Time Co-Signed: 09/19/23 12:16 EDT 08-18-2023 Hospital Discharge instructions Additional Instructions Take the antibiotic cephalexin twice a day for 10 days May have the Zofran every 8 hours for nausea vomiting upset stomach Increase oral fluids especially water May take your regular medication Follow-up with your family doctor this week Return to the ER for worsening pain high fever vomiting unable to urinate or any other concernsDunlap [facility] Work Phone: [phone]) 451-660204-10-2024 Evaluation + Plan note Diagnostic Tests Pending * PTH Intact 06/19/23 [facility]03-13-2024 Miscellaneous Notes* Telephone Encounter - Cathy Garcia RN - 05/22/2023 3:32 PM EDT Called and left voice mail message for patient informing him of this message from Marilyn Henry: Dr. Jordan Ortega reviewed, he recommends [facility] for other treatment options including possible ketamine infusions. Please advise Altagracia Conway of the above recommendations. Elba Henry PA-C May 22, 2023 Left number for CPRP on message for patient to schedule an appointment for evaluation. * Telephone Encounter - Elba Henry PA-C - 05/22/2023 3:[address] Jordan Ortega reviewed, he recommends [facility] for other treatment options including possible ketamine infusions. Please advise Altagracia Conway of the above recommendations. Elba Henry PA-C May 22, 2023 documented in [facility] encounterAccess [facility]24 NoteHNO ID: [id number] Author: ELBA HENRY PA-C Service: ? Author Type: Physician Field Cashier Type: Progress Notes Filed: 05/14/2023 13:46 Note Text: Pain Management Follow Up Visit Date: 05/14/23 SUBJECTIVE Altagracia Conway is a 67 year old male, who presents with bilateral foot pain, SCS recheck. Intensity of pain: 0 on a scale of 0-10 in the afternoons, patient states everyday is different. Pain usually worse in the afternoons - 10/10. Duration of pain: Years ago, with no precipitating event.. The pain is located Foot-Left (bilateral feet) and does not radiate . Pain Description: Intermittent Throbbing, Sharp, Spasm Timing: changes in severity but always present Aggravating Factors: nothing aggravates it, it just starts Alleviating Factors: Spinal Cord Stimulator, Medication Interference with: walking, sleeping, cooking, household cleaning, and social activities. Procedure since last office visit: Review of Symptoms: GENERAL:No weight loss, malaise or fevers., SEE HPI GASTROINTESTINAL: Negative for abdominal discomfort, blood in stools or black stools or change in bowel habits GENITOURINARY: No history of dysuria, frequency or incontinence MUSCULOSKELETAL: see HPI NEUROLOGIC:Negative for focal numbness or weakness, headaches and dizziness or syncope. PREVIOUS TREATMENTS LASTING SIX WEEKS IN THE LAST SIX MONTHS Active conservative therapy lasting 6 weeks in the last six months (see below) 1. Physical therapy: No 2. Home exercise program after PT: No 3. Occupational therapy: No 4. A physician supervised home exercise program (HEP): No 5. Camp Director: No Passive conservative therapy lasting 6 weeks in the last six months (see below) 1. Medical devises: No 2. Acupuncture: No 3. Tens unit: No 4. Prescription pain medication: No 5. NSAIDS: [place]: Cathy Garcia RN May 14, 2023 9:56 AM The subjective information: including chief complaint, and past medical history, was explored in detail with the patient and edited as needed and is complete. Elba Henry PA-C May 14, 2023 NOHELIA: 03/29/23 - Elba Henry PA-C PLAN: 1) Consult physical therapy 2) X-ray Lumbar spine 3) US of the left lower extremity to evaluate for DVT 4) Conor from [facility] was present for this visit and SCS reprogramming was completed today. 5) RTC 8 weeks or sooner if needed. Consider lumbar MBNB in the future if back pain continues. [place]AR[place]: PDMP website checked and validated. All prescriptions have been APPROPRIATELY filled. No suspicious activity was identified. - on May 14, 2023 by Elba Henry PA-C - 05/09/23 Lorazepam 1 mg #30/30 days Kenn Bee MD - 05/03/23 Hydrocodone/Acetaminophen 5/325 mg #10/ for 2 days Tito Cespedes Physical Examination: BP 138/65 Pulse 84 Ht 6' 2 (1.88m) Wt 227 lb 15.3 oz (103.4kg) SpO2 95% BMI 29.26 kg/(m2). General: well appearing, alert, and in no acute distress HEENT: normocephalic, atraumatic, sclera non-icteric Cardiovascular:Regular rate and rhythm Lungs: Respirations even and non-labored. Extremities: - Right great toe amputation. - Patient reports cannot feel light touch distal to the ankles bilaterally. - No allodynia of the bilateral feet - Palpable dorsalis pedis and posterior tibialis pulses bilaterally. - Vascular color changes over the forefoot. - Edema in the bilateral lower extremities distal to the knee 1+ pitting. Neurological: Mental Status: alert and oriented x 3 Current Anticoagulant Therapy: No DM: Yes Imaging: Mar 29 2023 - US DVT LOWER LT COMPARISON: None RESULT: LEFT LOWER EXTREMITY PROXIMAL DEEP VEINS Distal External Iliac, Common Femoral and proximal Profunda Veins: Compression: Normal Doppler: Normal, spontaneous respirophasic flow. Normal response to augmentation. Femoral vein: Compression: Normal Doppler: Normal, spontaneous flow. Normal response to augmentation. Popliteal vein: Compression: Normal Doppler: Normal, spontaneous flow. Normal response to augmentation. CALF DEEP VEINS: The left calf veins are not well visualized due to soft tissue edema. Gastrocnemius and Soleal veins: Not imaged. SUPERFICIAL VEINS Great saphenous: Patent and compressible at insertion into common femoral vein; not otherwise assessed. Small Saphenous: Patent and compressible in the proximal calf, not otherwise assessed. There is 4.2 x 3.7 x 1.2 cm enlarged left inguinal lymph node. RIGHT LOWER EXTREMITY (FOR COMPARISON) Common Femoral Vein: Compression: Normal Doppler: Normal, spontaneous respirophasic flow. Normal response to augmentation. There is 2.5 x 1.8 x 0.9 cm enlarged right inguinal lymph node. IMPRESSION: NEGATIVE STUDY FOR PROXIMAL DVT IN THE LEFT LOWER EXTREMITY. NONDIAGNOSTIC STUDY FOR CALF DVT IN THE LEFT LOWER EXTREMITY. NEGATIVE STUDY FOR SUPERFICIAL THROMBOPHLEBITIS IN THE IMAGED SEGMENTS OF THE LEFT LOWER EXTREMITY. TX (more content not included)...[facility]03-01-2024 Miscellaneous Notes* Telephone Encounter - Kristen Templeton LPN - 05/10/2023 1:40 PM EST Spoke with pt regarding SCS eval with [facility](Conor). Pt requesting appt with aline to discuss options. VM and email sent to [facility] to meet pt at appt on 05/14/2023 @ 968. Pt stated he has been seen several times by [facility] and was texting with Conor yesterday. documented in this encounterAccess Hospital [place]02-15-[facility]24 History of Present illness Narrative* Tiki Dockery, DO - 04/25/2023 10:00 AM EST Images from the original note were not included. Altagracia Conway is a 67 y.o. male presents with chief complaint of Wrist Pain HPI: Wrist Pain Patient complains of left wrist pain. States he lifted a mattress while making the bed and heard a snap in his left wrist. The pain is 8/10 worsens with movement, and some relief by rest but still painful. Pain has been present for 1 day. Pain is located around his wrist. He can flex and extended it but with pain. Denies any swelling. Not otc meds, or ice. SUBJECTIVE: See medication list at the end of the note. Allergies Allergen Reactions Mixed Ragweed SEASONAL ALLERGIES REVIEW OF SYMPTOMS: Review of Systems Musculoskeletal: Positive for arthralgias. OBJECTIVE: Visit Vitals BP 136/78 Pulse 79 Temp 98.6 F Ht 6' Wt 231 lb SpO2 96% BMI 31.33 kg/m Smoking Status Every Day BSA 2.31 m Physical Exam Constitutional: Appearance: Normal appearance. Musculoskeletal: Comments: No swelling, erythema, or warmth on the left wrist. All tendons are intact and he has full ROM of fingers and wrist. Negative finkelsteins test. Pain over anatomic snuff box. ASSESSMENT AND PLAN: Problem List Items Addressed This Visit None Visit Diagnoses Left wrist pain - Primary Relevant Orders XR wrist 3+ views left Unsure of the cause of his pain. No obvious deformity or swelling on exam. Will get xrays to make sure no fracture. If this is normal, will consider having him wear a wrist splint for a couple of weeks as it may be a tendonitis. Follow up for Next scheduled follow-up. Patient's Medications New Prescriptions No medications on file Previous Medications ALBUTEROL HFA (VENTOLIN HFA) 90 MCG/ACT INHALER Inhale 2 puffs every 4 (four) hours if needed for wheezing or shortness of breath AMLODIPINE (NORVASC) 10 MG TABLET TAKE 1 TABLET BY MOUTH ONCE DAILY ASPIRIN 81 MG EC TABLET Take 81 mg by mouth in the morning. ATORVASTATIN (LIPITOR) 10 MG TABLET Take 1 tablet (10 mg) by mouth in the morning. BUSPIRONE (BUSPAR) 30 MG TABLET Take 1 tablet (30 mg) by mouth at bedtime. CONTINUOUS BLOOD GLUC DOOR HANGER (FREESTYLE MAYA 3 READER) DEVICE 1 each See administration instructions CONTINUOUS BLOOD GLUC SENSOR (FREESTYLE MAYA 3 SENSOR) MISC Inject 1 Device under the skin every 14 (fourteen) days DOXEPIN (SINEQUAN) 100 MG CAPSULE Take 100 mg by mouth at bedtime FETZIMA 40 MG EXTENDED RELEASE CAPSULE Take 40 mg by mouth in the morning. Takes along with 20mg tablets. FLUTICASONE FUROATE-VILANTEROL (BREO ELLIPTA) 100-25 MCG/ACT AEROSOL POWDER inhale 1 PUFF BY MOUTH ONCE DAILY FUROSEMIDE (LASIX) 20 MG TABLET TAKE 1 TABLET BY MOUTH ONCE DAILY GNP VITAMIN D MAXIMUM STRENGTH 50 MCG (2000 UT) TABLET Take 1 tablet by mouth in the morning. INSULIN ASPART (NOVOLOG FLEXPEN) 100 UNIT/ML PEN INJECT subq DIRECTED: 6 units breakfast, 8 to 12 units dinner plus correction 1:75 if blood sugar above 150. INSULIN DEGLUDEC (TRESIBA FLEXTOUCH) 100 UNIT/ML INJECTION Inject 30 Units under the skin in the morning. LEVOMILNACIPRAN (FETZIMA) 20 MG EXTENDED RELEASE CAPSULE Take 20 mg by mouth in the morning. Take with 40mg (Total=60mg). LISINOPRIL 10 MG TABLET Take 1 tablet (10 mg) by mouth in the morning. LORAZEPAM (ATIVAN) 1 MG TABLET Take 1 tablet (1 mg) by mouth at bedtime 1 tablet at hs MIRTAZAPINE (REMERON) 45 MG TABLET Take 1 tablet (45 mg) by mouth at bedtime ONETOUCH VERIO TEST STRIP USE DIRECTED TO test fasting blood sugars 3 TIMES DAILY PANCRELIPASE, [id number], (CREON) [id number] UNITS CAPSULE DELAYED-RELEASE PARTICLES CAPSULE Take 2 capsules by mouth in the morning and 2 capsules in the evening and 2 capsules before bedtime. PANTOPRAZOLE (PROTONIX) 40 MG EC TABLET Take 1 tablet (40 mg) by mouth in the morning. Take before meals. PREGABALIN (LYRICA) 150 MG CAPSULE TAKE 1 CAPSULE BY MOUTH TWICE DAILY TAMSULOSIN (FLOMAX) 0.4 MG 24 HR CAPSULE Take 1 capsule (0.4 mg) by mouth in the morning. Modified Medications No medications on file Discontinued Medications No medications on file documented in this encounterUniversity Health Lakewood Medical [id number] History of Present illness Narrative* Tiki Dockery DO - 04/18/2023 8:55 PM ESTAssociated Problem(s): Diastolic dysfunction Ok to increase his lasix to bid dosing for 5 days to help with swelling. He is to decrease sodium in his diet. * Tiki Dockery DO - 04/18/2023 8:55 PM ESTAssociated Problem(s): Type 2 diabetes mellitus with peripheral neuropathy (CMS/HCC) He is to monitor bg closely while finishing steroids. He is taking more insulin to compensate for this. * Tiki Dockery DO - 04/18/2023 8:54 PM ESTAssociated Problem(s): Simple chronic bronchitis (CMS/HCC) Improving from exacerbation of this. He is to continue to finish out abx and prednisone. Encouragedsmoking cessation. Will refer to pulmonology as he has had multiple exacerbations of this in the last 6 months. Had PFT done in February. States he is consistent with using his Breo Ellipta * Tiki Dockery DO - 04/18/2023 11:15 AM EST Images from the original note were not included. Flowsheet Row Patient Outreach from 04/15/2023 in [facility] with Cathryn Flowers RN Discharge Information ED or Hospital Discharge? ED Patient has been contacted within 1 week of being seen in the ED Yes Discharge Date 04/13/23 Discharge [facility] [Clinical Impression: COPD exacerbation] Discharged To: Home Setting Engagement Call Start Time 1149 Medications Discharge medications reviewed and reconciled from hospital? Yes [new: Azithromycin, prednisone, albuterol inhaler] Is the patient having any side effects they believe may be caused by any medication additions or changes? No Does the patient have all medications ordered at discharge? Yes Is the patient taking all medications as directed (includes completed medication regime)? Yes Nursing Interventions Nurse provided patient education Appointments Does the patient have a primary care provider? Yes [er follow up 04/18/23] Has the patient kept scheduled appointments due by today? Yes Nursing Interventions Advised patient to keep appointment Self Management Has home health visited the patient within 72 hours of discharge? Not applicable Patient Teaching Does the patient have access to their discharge instructions? Yes Nursing Interventions Reviewed instructions with patient What is the patient's perception of their health status since discharge? Improving Is the patient/caregiver able to teach back the hierarchy of who to call/visit for symptoms/problems? PCP, Specialist, Home Health nurse, Urgent Care, ED, 911 Yes Patient/Caregiver Education Comments current smoker, has decreased amount he smokes Wrap Up Wrap Up Additional Comments labs, XR. pt reports improvement. No longer seeing lubrication equipment servicer. Discussed deep breathing exercises and smoking cessation. Pt monitoring pulse ox sat in the home Altagracia Conway is a 67 y.o. male presents with chief complaint of ER Follow-up HPI: [facility] ER FOLLOW UP FROM 04/13/2023 He went to the ER on Saturday due to Shortness of breath. Pulse x at home was in the mid 80's low 90's. Had been using the ventolin inhaler with no relief. TESTING: Labs, EKG AND CXR. States everything was stable MEDICATIONS: zpack, prednisone 40mg x 5 and albuterol inhaler Diagnosed with COPD excerebration He is feeling better today. Has not had to use the inhaler in the past 2 days Doesn't follow with pulmonology BILATERAL LEG SWELLING Started over a month a ago Left leg is worse than the right side. Pain in his left calf and states its hard to extend and flex his foot. Admits to eating frozen meal half of the week. Sausage for breakfast, Is not a good water drink. He drinks crystal peach tea, 2% milk SUBJECTIVE: See medication list at the end of the note. Allergies Allergen Reactions Mixed Ragweed SEASONAL ALLERGIES REVIEW OF SYMPTOMS: Review of Systems Constitutional: Negative for appetite change, fatigue and unexpected weight change. Respiratory: Positive for cough, shortness of breath and wheezing. Cardiovascular: Positive for leg swelling. Negative for chest pain and palpitations. OBJECTIVE: Visit Vitals BP 136/72 Pulse 80 Temp 98.5 F Ht 6' Wt 232 lb SpO2 98% BMI 31.46 kg/m Smoking Status Every Day BSA 2.31 m Physical Exam Constitutional: General: He is not in acute distress. Appearance: Normal appearance. Cardiovascular: Rate and Rhythm: Normal rate and regular rhythm. Heart sounds: No murmur heard. No friction rub. No gallop. Pulmonary: Breath sounds: Decreased breath sounds and wheezing present. No rhonchi or rales. Musculoskeletal: Left lower leg: Edema present. Comments: 1+ pitting edema in the left lower ext Neurological: Mental Status: He is alert. ASSESSMENT AND PLAN: Problem List Items Addressed This Visit Type 2 diabetes mellitus with peripheral neuropathy (CMS/HCC) He is to monitor bg closely while finishing steroids. He is taking more insulin to compensate for this. Simple chronic bronchitis (CMS/HCC) Improving from exacerbation of this. He is to continue to finish out abx and prednisone. Encouragedsmoking cessation. Will refer to pulmonology as he has had multiple exacerbations of this in the last 6 months. Had PFT done in February. States he is consistent with using his Breo Ellipta Relevant Orders Ambulatory referral to Pulmonology Diastolic dysfunction Ok to increase his lasix to bid dosing for 5 days to help with swelling. He is to decrease sodium in his diet. Other Visit Diagnoses COPD exacerbation (CMS/HCC) - Primary Prior to today's appointment, I reviewed the patient's hospital records of their ER visit along with any diagnostic imaging /labs/testing that were forwarded onto my office. This information discussed and shared with the patient today. Updates to their medication list and history were made. At the conclusion of today's visit, all questions were answered that were brought forth by the patient. Follow up for Next scheduled follow-up. Patient's Medications New Prescriptions No medications on file Previous Medications ALBUTEROL HFA (VENTOLIN HFA) 90 MCG/ACT INHALER Inhale 2 puffs every 4 (four) hours if needed for wheezing or shortness of breath AMLODIPINE (NORVASC) 10 MG TABLET TAKE 1 TABLET BY MOUTH ONCE DAILY ASPIRIN 81 MG EC TABLET Take 81 mg by mouth in the morning. ATORVASTATIN (LIPITOR) 10 MG TABLET Take 1 tablet (10 mg) by mouth in the morning. BUSPIRONE (BUSPAR) 30 MG TABLET Take 1 tablet (30 mg) by mouth at bedtime. CONTINUOUS BLOOD GLUC DOOR HANGER (FREESTYLE MAYA 3 READER) DEVICE 1 each See administration instructions CONTINUOUS BLOOD GLUC SENSOR (FREESTYLE MAYA 3 SENSOR) MISC Inject 1 Device under the skin every 14 (fourteen) days DOXEPIN (SINEQUAN) 100 MG CAPSULE Take 100 mg by mouth at bedtime FETZIMA 40 MG EXTENDED RELEASE CAPSULE Take 40 mg by mouth in the morning. Takes along with 20mg tablets. FLUTICASONE FUROATE-VILANTEROL (BREO ELLIPTA) 100-25 MCG/ACT AEROSOL POWDER inhale 1 PUFF BY MOUTH ONCE DAILY FUROSEMIDE (LASIX) 20 MG TABLET TAKE 1 TABLET BY MOUTH ONCE DAILY GNP VITAMIN D MAXIMUM STRENGTH 50 MCG (2000 UT) TABLET Take 1 tablet by mouth in the morning. INSULIN ASPART (NOVOLOG FLEXPEN) 100 UNIT/ML PEN INJECT subq DIRECTED: 6 units breakfast, 8 to 12 units dinner plus correction 1:75 if blood sugar above 150. INSULIN DEGLUDEC (TRESIBA FLEXTOUCH) 100 UNIT/ML INJECTION Inject 30 Units under the skin in the morning. LEVOMILNACIPRAN (FETZIMA) 20 MG EXTENDED RELEASE CAPSULE Take 20 mg by mouth in the morning. Take with 40mg (Total=60mg). LISINOPRIL 10 MG TABLET Take 1 tablet (10 mg) by mouth in the morning. LORAZEPAM (ATIVAN) 1 MG TABLET Take 1 tablet (1 mg) by mouth at bedtime 1 tablet at hs MIRTAZAPINE (REMERON) 45 MG TABLET Take 1 tablet (45 mg) by mouth at bedtime ONETOUCH VERIO TEST STRIP USE DIRECTED TO test fasting blood sugars 3 TIMES DAILY PANCRELIPASE, LKB-NATH-GFBC, (CREON) [id number] UNITS CAPSULE DELAYED-RELEASE PARTICLES CAPSULE Take 2 capsules by mouth in the morning and 2 capsules in the evening and 2 capsules before bedtime. PANTOPRAZOLE (PROTONIX) 40 MG EC TABLET Take 1 tablet (40 mg) by mouth in the morning. Take before meals. PREGABALIN (LYRICA) 150 MG CAPSULE Take 1 capsule (150 mg) by mouth in the morning and 1 capsule (150 mg) before bedtime. TAMSULOSIN (FLOMAX) 0.4 MG 24 HR CAPSULE Take 1 capsule (0.4 mg) by mouth in the morning. Modified Medications No medications on file Discontinued Medications AZITHROMYCIN (ZITHROMAX) 250 MG TABLET .COMPLEX PREDNISONE (DELTASONE) 20 MG TABLET Daily documented in this [facility]01-19-2024 NoteHNO ID: [id number] Author: DUANE DAVIES RT(R) Service: ? Author Type: Hotel Or Motel Room Service Supervisor Type: Progress Notes Filed: 03/29/2023 15:23 Note Text: Radiology Service Progress Note PATIENT NAME: Altagracia Conway DATE OF SERVICE: March 29, 2023 TIME: 3:23 PM PATIENT IDENTITY VERIFICATION COMPLETED USING TWO (2) IDENTIFIERS: Name and Date of confirmed by patient verbally and Name and Date of confirmed by identification band. FALL SCREENING: Has the patient had 2 falls in the last year or 1 fall with injury or currently using an Ambulatory Assistive Device (Walker, Cane, Wheelchair, Crutches, etc.)? No PATIENT GENDER DATA: Male PATIENT RELEVANT IMPLANT DATA REVIEWED: Not Applicable RADIOLOGY DEPARTMENT: General X-ray: Exam(s) Completed: Spine X-Ray(s): Lumbar AP / LAT / L5-S1 / FLEX-EXT PERIPHERAL IV DATA: Not applicable SIGNED BY: RT Bib(R) March 29, 2023 3:23 [id number] NoteHNO ID: [id number] Author: MOJGAN CHE RT(R) Service: Radiology Author Type: Technologist Type: Progress Notes Filed: 03/29/2023 15:11 Note Text: Radiology Service Progress Note PATIENT NAME: Altagracia Conway DATE OF SERVICE: March 29, 2023 TIME: 3:11 PM PATIENT IDENTITY VERIFICATION COMPLETED USING TWO (2) IDENTIFIERS: Name and Date of confirmed by patient verbally and Name and Date of confirmed by identification band. FALL SCREENING: Has the patient had 2 falls in the last year or 1 fall with injury or currently using an Ambulatory Assistive Device (Walker, Cane, Wheelchair, Crutches, etc.)? No PATIENT GENDER DATA: Male PATIENT RELEVANT IMPLANT DATA REVIEWED: Not Applicable RADIOLOGY DEPARTMENT: Ultrasound PERIPHERAL IV DATA: Not applicable SIGNED BY: RT Birgit(R) March 29, 2023 3:11 [facility] NoteHNO ID: [id number] Author: ELBA HENRY PA-C Service: ? Author Type: Physician Field Cashier Type: Progress Notes Filed: 03/29/2023 15:18 Note Text: Pain Management Follow Up Visit Date: March 29, 2023 Altagracia Conway is a 67 year old male returns today for follow up of Back, he states that symptoms have not changed. Current pain intensity is 6 on a scale of 0 -10. Location of pain: Back- lower Duration: 3 weeks ago, was not directly related to trauma, and symptoms have been stable. Description of pain: aching Pain scores - current: 6/10 - worst: 6/10 - best: 3/10 Aggravating factors: standing, forward flexion, lifting, getting up from sitting, and walking. Alleviating Factors: unable to pinpoint positions/factors that are mitigating. Review of Symptoms: GENERAL:No weight loss, malaise or fevers., SEE HPI GASTROINTESTINAL: Negative for abdominal discomfort, blood in stools or black stools or change in bowel habits GENITOURINARY: No history of dysuria, frequency or incontinence MUSCULOSKELETAL: SEER HPI NEUROLOGIC:Negative for focal numbness or weakness, headaches and dizziness or syncope. PREVIOUS TREATMENTS LASTING SIX WEEKS IN THE LAST SIX MONTHS Active conservative therapy lasting 6 weeks in the last six months (see below) 1. Physical therapy: No 2. Home exercise program after PT: No 3. Occupational therapy: No 4. A physician supervised home exercise program (HEP): No 5. Camp Director: No Passive conservative therapy lasting 6 weeks in the last six months (see below) 1. Medical devises: No 2. Acupuncture: No 3. Tens unit: No 4. Prescription pain medication: No 5. NSAIDS: No DEVIN Smith March 29, 2023 1:58 PM The subjective information: including chief complaint, and past medical history, was explored in detail with the patient and edited as needed and is complete. Elba Henry PA-C March 29, 2023 NOHELIA: 02/19/23 - Elba Henry PA-C PLAN: 1) Start methocarbamol 500 mg Take one (1) tablet three(3) times daily as needed. 2) Use of heat and stretching. 3) SCS reprogramming today to hopefully get better coverage of his toes at this time. 4) Altagracia Conway was advised to contact us immediately if any signs of infection: fever, chills, redness/swelling at the battery site. Physical Examination: General:well appearing, alert, and in no acute distress Skin: skin color, texture, turgor normal, no rashes or lesions HEENT: normocephalic, atraumatic, sclera non-icteric Cardiovascular:Regular rate and rhythm Lungs: Respirations even and non-labored. Left Leg - 2+ pitting edema distal to the knee. Musculoskeletal: - Back: Tenderness over the left lower lumbar facets. Back pain increases with extension and left facet loading test. Tenderness with palpation over the left SI Joint: Gaenslen's Test negative and Greenwood's Test is negative. No tenderness with palpation over the IPG in the left buttock. Neurological: Mental Status: alert and oriented x 3 Motor Strength: Motor strength is 5/5 all throughout in the bilateral lower extremities. Sensory: Sensation was intact to light touch all throughout. Gait: Antalgic. Current Anticoagulant Therapy: No DM: Yes HPI AND ASSESSMENT: Parts of this note were copied from the last office visit note by Elba Henry PA-C dated: 02/19/23, changes were made to appropriately reflect updated history and interval events, physical exam, data review, and medical decision making. Altagracia Conway is a 67 year old male, is an established patient of Dr. 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 He had a placement of Percutaneous spinal cord stimulator (SCS) lead implantation x 2 and [employer] Development[employer]im system implantable pulse generator (IPG), on 11/13/[address] Ortega. His last office visit was on 02/19/23 with Elba Henry PA-C at which time he reported pain in the left buttock around the the IPG. At that time I recommended use of heat, stretching, and muscle relaxant for the pain. Altagracia Conway [facility]. Altagracia Conway reports continued bilateral foot pain he reports minimal improvement in his foot pain even with the SCS and multiple reprogramming sessions. Altagracia Conway met again with [facility] rep today for SCS reprogramming. Today, Altagracia Conway reports continued pain in the left lower back and into the left buttock. He reports no changes in his pain since his last visit on 02/19/23. He reports the prescribed muscle relaxant did not help with the pain. He reports constant pain that waxes and wanes. He describes the pain as aching. He rates his pain from 3-6/10. He reports the pain is greatest with sitting on the left buttock. He also reports pain improves with sitting off on the right buttock. Altagracia Conway denies: fever, chills, left lower extremi (more content not included)...[facility]12-12-2023 NoteHNO ID: [id number] Author: Elba Henry PA-C Service: ? Author Type: Physician Field Cashier Type: Progress Notes Filed: 02/19/2023 3:20 PM Note Text: Pain Management Follow Up Visit Date: February 19, 2023 Altagracia Conway is a 67 year old male returns today for follow up of low back pain, he states that symptoms are slightly worse. Current pain intensity is 8 on a scale of 0 -10. Location of pain: low back Duration: many years ago, was not directly related to trauma, and symptoms have been persistent. Description of pain: dull and sharp Pain scores - current: 8/10 - worst: 10/10 - best: 0/10 Aggravating factors: sitting and standing. Alleviating Factors: lying down. Review of Symptoms: GENERAL:No weight loss, malaise or fevers., SEE HPI GASTROINTESTINAL: Negative for abdominal discomfort, blood in stools or black stools or change in bowel habits GENITOURINARY: No history of dysuria, frequency or incontinence MUSCULOSKELETAL: See HPI NEUROLOGIC:Negative for focal numbness or weakness, headaches and dizziness or syncope. PREVIOUS TREATMENTS LASTING SIX WEEKS IN THE LAST SIX MONTHS Active conservative therapy lasting 6 weeks in the last six months (see below) 1. Physical therapy: No 2. Home exercise program after PT: No 3. Occupational therapy: No 4. A physician supervised home exercise program (HEP): No 5. Camp Director: No Passive conservative therapy lasting 6 weeks in the last six months (see below) 1. Medical devises: No 2. Acupuncture: No 3. Tens unit: No 4. Prescription pain medication: No 5. NSAIDS: No Starr AlvessumayaEFRA February 19, 2023 2:33 PM The subjective information: including chief complaint, and past medical history, was explored in detail with the patient and edited as needed and is complete. Elba Henry PA-C February 19, 2023 NOHELIA: 11/20/22 - Elba Henry PA-C Plan: SCS surgical sites healing well - incisions well approximated. [employer] rep present for appointment and SCS reprogramming was performed. Complete post-procedural antibiotics as ordered. RTC in 3 months or sooner if needed. Physical Examination: BP 129/70 Pulse 85 Wt 237 lb (107.5kg) General:well appearing, alert, and in no acute distress Skin: skin color, texture, turgor normal, no rashes or lesions HEENT: normocephalic, atraumatic, sclera non-icteric Cardiovascular:Regular rate and rhythm Lungs: Respirations even and non-labored. Musculoskeletal: - SCS battery in the left upper buttock. There is no pain with direct palpation over the battery. There is no redness, swelling or heat of the battery area. Surgical incision appears fully healed. There is tenderness proximal to the IPG over the left lower lumbar paraspinal muscles with noted spasms. Neurological: Mental Status: alert and oriented x 3 OARRS: PDMP website checked and validated. All prescriptions have been APPROPRIATELY filled. No suspicious activity was identified. - on February 19, 2023 by Elba Henry PA-C - 01/30/23 pregabalin 150 mg #180/90 Tiki Dockery DO - 01/10/23 lorazepam 1 mg #45/23 days Kenn Bee MD HPI AND ASSESSMENT: Parts of this note were copied from the last office visit note by Elba Henry PA-C dated: 11/20/22, changes were made to appropriately reflect updated history and interval events, physical exam, data review, and medical decision making. Altagracia Conway is a 67 year old male, is an established patient of Dr. Jordan Ortega , his last office visit was on 11/20/22 with Elba Henry PA-C for post-op evaluation after placement of Percutaneous SCS lead implantation x 2 and [employer] Intellis adaptiveStim system implantable pulse generator, on 11/13/[address] 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 Today, Altagracia Conway reports pain in the left buttock area around his spinal cord stimulator battery. He repots this pain started a few weeks ago and has been worsening. He reports this pian occurs with sitting and standing and resolves with lying down. He describes the pain as dull, s/harp and like a pinched nerve. He rates the pain from 0-10, currently an 8/10. He does not remember any trauma to the area or doing anything that would cause this pain. He also reports he is not happy with his SCS coverage for his chronic foot pain . He reports he has mild improvement in his forefoot pain with the SCS despite multiple reprogramming. Conor Lazo, [employer] rep, is present today and will again try reprogramming. Altagracia Conway denies any fever or chills or any other new symptoms with this left buttock pain. On exam there are no signs of infection around the spinal cord stimulator battery in the left buttock. There is tenderness proximal to the battery in the left lumbar paraspinal muscles with spasms noted. Patient advised to try muscle relaxant, heat and stretching (more content not included)...[facility]12-12-2023 Instructions* Patient Instructions* Elba Henry PA-C - 02/19/2023 3:00 PM EST PLAN: 1) Start methocarbamol 500 mg Take one (1) tablet three(3) times daily as needed. 2) Use of heat and stretching. 3) SCS reprogramming today to hopefully get better coverage of his toes at this time. [facility] History of Present illness Narrative* Elba Henry PA-C - 02/19/2023 2:30 PM EST Pain Management Follow Up Visit Date: February 19, 2023 Altagracia Conway is a 67 year old male returns today for follow up of low back pain, he states that symptoms are slightly worse. Current pain intensity is 8 on a scale of 0 -10. Location of pain: low back Duration: many years ago, was not directly related to trauma, and symptoms have been persistent. Description of pain: dull and sharp Pain scores - current: 8/10 - worst: 10/10 - best: 0/10 Aggravating factors: sitting and standing. Alleviating Factors: lying down. Review of Symptoms: GENERAL:No weight loss, malaise or fevers., SEE HPI GASTROINTESTINAL: Negative for abdominal discomfort, blood in stools or black stools or change in bowel habits GENITOURINARY: No history of dysuria, frequency or incontinence MUSCULOSKELETAL: See HPI NEUROLOGIC:Negative for focal numbness or weakness, headaches and dizziness or syncope. PREVIOUS TREATMENTS LASTING SIX WEEKS IN THE LAST SIX MONTHS Active conservative therapy lasting 6 weeks in the last six months (see below) 1. Physical therapy: No 2. Home exercise program after PT: No 3. Occupational therapy: No 4. A physician supervised home exercise program (HEP): No 5. Camp Director: No Passive conservative therapy lasting 6 weeks in the last six months (see below) 1. Medical devises: No 2. Acupuncture: No 3. Tens unit: No 4. Prescription pain medication: No 5. NSAIDS: No Starr Britt MA February 19, 2023 2:33 PM The subjective information: including chief complaint, and past medical history, was explored in detail with the patient and edited as needed and is complete. Elba Henry PA-C February 19, 2023 NOHELIA: 11/20/22 - Elba Henry PA-C Plan: SCS surgical sites healing well - incisions well approximated. [employer] rep present for appointment and SCS reprogramming was performed. Complete post-procedural antibiotics as ordered. RTC in 3 months or sooner if needed. Physical Examination: BP 129/70 Pulse 85 Wt 237 lb (107.5kg) General:well appearing, alert, and in no acute distress Skin: skin color, texture, turgor normal, no rashes or lesions HEENT: normocephalic, atraumatic, sclera non-icteric Cardiovascular:Regular rate and rhythm Lungs: Respirations even and non-labored. Musculoskeletal: - SCS battery in the left upper buttock. There is no pain with direct palpation over the battery. There is no redness, swelling or heat of the battery area. Surgical incision appears fully healed. There is tenderness proximal to the IPG over the left lower lumbar paraspinal muscles with noted spasms. Neurological: Mental Status: alert and oriented x 3 OARRS: PDMP website checked and validated. All prescriptions have been APPROPRIATELY filled. No suspicious activity was identified. - on February 19, 2023 by Elba Henry PA-C - 01/30/23 pregabalin 150 mg #180/90 Tikishana Dockery, DO - 01/10/23 lorazepam 1 mg #45/23 days Kenn Bee MD HPI & ASSESSMENT: Parts of this note were copied from the last office visit note by Elba Henry PA-C dated: 11/20/22, changes were made to appropriately reflect updated history and interval events, physical exam, data review, and medical decision making. Altagracia Conway is a 67 year old male, is an established patient of Dr. Jordan Ortega , his last office visit was on 11/20/22 with Elba Henry PA-C for post-op evaluation after placement of Percutaneous SCS lead implantation x 2 and [employer] Intellis adaptiveStim system implantable pulse generator, on 11/13/[address] 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 Today, Altagracia Conway reports pain in the left buttock area around his spinal cord stimulator battery. He repots this pain started a few weeks ago and has been worsening. He reports this pian occurswith sitting and standing and resolves with lying down. He describes the pain as dull, s/harp and like a pinched nerve. He rates the pain from 0-10, currently an 8/10. He does not remember any trauma to the area or doing anything that would cause this pain. He also reports he is not happy with his SCS coverage for his chronic foot pain . He reports he hasmild improvement in his forefoot pain with the SCS despite multiple reprogramming. Conor Lazo,[employer] rep, is present today and will again try reprogramming. Altagracia Conway denies any fever or chills or any other new symptoms with this left buttock pain. On exam there are no signs of infection around the spinal cord stimulator battery in the left buttock. There is tenderness proximal to the battery in the left lumbar paraspinal muscles with spasms noted. Patient advised to try muscle relaxant, heat and stretching. SCS will be reprogrammed today. Altagracia Conway was advised to contact us immediately if any signs of infection: fever, chills, redness/swelling at the battery site. Lumbar paraspinal muscle spasm (primary encounter diagnosis) Spinal cord stimulator status Bilateral foot pain PLAN: 1) Start methocarbamol 500 mg Take one (1) tablet three(3) times daily as needed. 2) Use of heat and stretching. 3) SCS reprogramming today to hopefully get better coverage of his toes at this time. 4) Altagracia Conway was advised to contact us immediately if any signs of infection: fever, chills, redness/swelling at the battery site. The above plan and management options were discussed at length with patient. Patient is in agreement with the above and verbalized understanding. Elba Henry PA-C February 19, 2023 documented in this encounterAccess [facility]12-[facility] NoteMicrobiology PROCEDURE: Blood Culture Charcoal [R1] SOURCE: Blood BODY SITE: Arm R COLLECTED DATE/TIME: 02/03/2023 19:13 EST RECEIVED DATE/TIME: 02/03/2023 19:47 EST START DATE/TIME: 02/03/2023 19:47 EST FREE TEXT SOURCE: Tito WU, Danielle Vance MD, Danielle FINAL REPORTS Final Report [] Verified Date/Time: 02/11/2023 07:00 EST No growth at 7 days. Performing Locations R1: This test was performed at: [facility], [address] [place] [address], [id number], IrcajkUniversity Hospitals Lake West Medical CenterComment on above:Performed By: #### [id number] ####[facility] [id number] [place], [place] [id number] NoteMicrobiology PROCEDURE: Blood Culture Charcoal [R1] SOURCE: Blood BODY SITE: COLLECTED DATE/TIME: 02/03/2023 19:08 EST RECEIVED DATE/TIME: 02/03/2023 19:46 EST START DATE/TIME: 02/03/2023 19:46 EST FREE TEXT SOURCE: Hortensia Vance MD, Danielle Vance MD, Danielle FINAL REPORTS Final Report [] Verified Date/Time: 02/11/2023 07:00 EST No growth at 7 days. Performing Locations R1: This test was performed at: [facility], [address] [place] [address], [id number], NizmquUniversity [facility]als Lake West Medical CenterComment on above:Performed By: #### [id number] #### [facility] [address] [place] [address] [id number] NoteChief Complaint SOB Reason for Consultation Acute hypoxemic respiratory failure History of Present Illness Pt is a 67y M with past medical history significant for HFpEF, smoking, HCV, CKD stage 3, pancreatic cancer in remission, IDDM, HLD, and HTN who presented to the ED on 02/03 with complaints of worsening SOB for 1 day. Pt reports he has had some intermittent SOB over the past week or so but over thelast day it has been worsening. He reports a dry cough. He denies any fevers, chills, chest pain, nausea, vomiting, or diarrhea. He also denies any sick contacts. In the ED, he was found to be hypoxemic on RA. He was placed on 4L O2 with improvement. CXR did not reveal any acute infiltrates. CTA chest performed which was neg for PE or acute infiltrates. Laboratory workup revealed eosinophil 12.7%, d-dimer 1442, BUN 55, SCr 1.7, procal 0.09, BNP 21, but otherwise unremarkable. Pt was started on bronchodilators, steroids, and admitted to the hospitalist service for further management. PCCM consulted to assist in management of the pt's acute hypoxemic respiratory failure. Review of Systems 12 point review of systems performed with patient, pertinent positives and negatives stated in HPI. Physical Exam Vitals & Measurements T: 36.5 ?C(Oral) TMIN: 36.5 ?C(Oral) TMAX: 36.7 ?C(Oral) HR: 90(Monitored) RR: 18 BP: 157/61 SpO2: 97% HT: 187.96 cm WT: 105.7 kg General: No acute distress Skin: Warm, dry Head: Atraumatic, normocephalic Neck: Trachea midline, no adenopathy, no tenderness Eye: PERRL, sclera anicteric ENMT: Moist mucous membranes Cardiovascular: Regular rate and rhythm. No murmurs, rubs, or gallops. No BLE edema. Respiratory: Mild wheezing b/l. No rhonchi or crackles. No stridor. No accessory muscle use. Chest wall: No deformity Gastrointestinal: Soft, non-tender, non-distended Back: No tenderness Extremities: No deformity Neurological: Awake and alert. Following commands. No focal deficit appreciated. Psychiatric: Cooperative. Affect appropriate for age. Images CTA Chest 02/04/23 09:09:23 IMPRESSION: NO PULMONARY EMBOLISM OR ACUTE INTRATHORACIC PROCESS. STABLE 5 MM LEFT UPPER LOBE NODULE. FOLLOW-UP RECOMMENDED PER FLEISCHNER CRITERIA. EXAM: CTA Chest History: Pulmonary embolism. Shortness breath. Technique: Multiple axial images were obtained of the thorax from the thoracic inlet through the upper abdomen With IV contrast. Multiplanar reformats were obtained including coronal maximum intensity projection images (MIPS). Comparison: CT chest 03/18/2022 Findings: Visualized portion of the thyroid gland is within normal limits. No axillary, mediastinal, or hilar lymphadenopathy. Right-sided central port is present. No thoracic aortic aneurysm or dissection. Mild atherosclerotic calcification of the thoracic aorta. No filling defect within the pulmonary arteries. Heart size is within normal limits. No significant pericardial effusion. Coronary artery calcification are identified. Esophagus is within normal limits. Stable 5 mm left upper lobe nodule. Scattered areas of peripheral lung scarring again identified. No consolidation, pleural effusion, or pneumothorax. Visualized upper abdomen demonstrates no acute abnormality. No acute osseous abnormality. Chronic left rib deformities. Degenerative changes of the spine. Spinal cord stimulator is present. All CT scans at this facility use dose modulation, iterative reconstruction, and/or weight based dosing when appropriate to reduce radiation dose to as low as reasonably achievable. Fleischner Society 2017 Guidelines for Management of Incidentally Detected Pulmonary Nodules in Adults A: Solid Nodules* Single Low risk <6 mm No routine follow-up 6-[address] at 6-12 months, then consider CT at 18-24 months >[address] at 3 months, PET/CT, or tissue sampling Nodules <6 mm do not require routine follow-up, but certain patients at high risk with suspicious nodule morphology, upper lobe location, or both may warrant 12-month follow-up (recommendation 1A). High risk <[address] at 12 months 6-[address] at 6-12 months, then CT at 18-24 months >[address] at 3 months, PET/CT, or tissue sampling Nodules <6 mm do not require routine follow-up, but certain patients at high risk with suspicious nodule morphology, upper lobe location, or both may warrant 12-month follow-up (recommendation 1A). Multiple Low risk <6 mm No routine follow-up 6-[address] at 3-6 months, then consider CT at 18-24 months >[address] at 3-6 months, then consider CT at 18-24 months Use most suspicious nodule as guide to management. Follow-up intervals may vary according to size and risk (recommendation 2A). High risk <[address] at 12 months 6-[address] at 3-6 months, then at 18-24 months >[address] at 3-6 months, then at 18-24 months Use most suspicious nodule as guide (more content not included)...[facility] CenterComment on above:Result Comment: Electronically Signed By: Andreas WU, Herson Martini\.br\Date and Time Signed: 02/04/23 19:21 [id number] Note Admission and Discharge Information Admit Date/Time:02/04/2023 00:26 Admitting Physician - Theodora Laurent MD Consulting Physician - Ten Suárez Jr., PA-C Admitting Diagnoses: Discharge Order Date Discharge Patient - Ordered -- 02/04/23 16:54:00 EST Discharge Diagnoses 1. Acute hypoxic respiratory failure, 02/04/2023 2. Elevated d-dimer, 02/03/2023 3. COPD exacerbation, 02/04/2023 4. Chronic renal disease, stage III, 02/03/2023 5. Type 2 diabetes mellitus, 02/04/2023 6. HTN (hypertension), 02/04/2023 7. History of pancreatic cancer, 02/04/2023 8. Smoker, 02/04/2023 9. 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 Hospital Course Significant Findings Patient has decided to leave AMA Patient has normal mentation status, adequate capacity to make medical decisions, patient refuses to stay, the risk have been explained to the patient including worsening illness, pain, permanent disability and , the benefits of staying have also been explained including availability and proximity to nurses, physicians, monitoring, diagnostic testing and treatment, the patient was able to understand and state the risk and benefits of hospital care. Follow- up has been discussed, patient is strongly recommended to return if condition worsens Services Consulted - Completed -- 02/04/23 2:17:47 EST Consult to Pulmonology - Ordered -- 02/04/23 7:48:00 EST, Hypoxemic Resp. failure, Consult and Co-manage Physical Exam Vitals & Measurements T: 36.5 ?C(Oral) TMIN: 36.5 ?C(Oral) TMAX: 36.7 ?C(Oral) HR: 90(Monitored) RR: 18 BP: 157/61 SpO2: 97% HT: 187.96 cm WT: 105.7 kg Laboratory Results Automated Diff (02/03/2023) Neutro Auto - 56.9 % Lymph Auto - 22.5 % Alfalfa Auto - 7.2 % Eos Auto - 12.7 % Basophil Auto - 0.7 % Neutro Absolute - 5.2 E9/L Lymph Absolute - 2.1 E9/L Alfalfa Absolute - 0.7 E9/L Eos Absolute - 1.2 E9/L Basophil Absolute - 0.1 E9/L BMP (02/04/2023) Glucose Lvl - 283 mg/dL BUN - 47 mg/dL Creatinine - 1.7 mg/dL BUN/Creat Ratio - 28 Sodium Lvl - 134 mmol/L Potassium Lvl - 5.7 mmol/L Chloride - 108 mmol/L CO2 - 22 mmol/L AGAP - 10 mEq/L Calcium Lvl - 9.3 mg/dL BMP (02/03/2023) Glucose Lvl - 170 mg/dL BUN - 55 mg/dL Creatinine - 1.7 mg/dL BUN/Creat Ratio - 32 Sodium Lvl - 135 mmol/L Potassium Lvl - 5.2 mmol/L Chloride - 107 mmol/L CO2 - 23 mmol/L AGAP - 10 mEq/L Calcium Lvl - 9.4 mg/dL BNP (02/03/2023) BNP - 21 pg/mL Capillary Glucose POC (02/04/2023) Glucose Cap - 271 mg/dL POC Device SN - [id number] POC User ID - [id number] POC Username - GORDON SEGOVIA CBC w/ Auto Diff (02/03/2023) WBC - 9.2 E9/L RBC - 4.0 E12/L Hgb - 11.5 gm/dL Hct - 34.6 % MCV - 86.6 fL MCH - 28.8 pg MCHC - 33.2 gm/dL RDW - 14.5 % Platelet - 195.0 E9/L MPV - 8.8 fL D-Dimer (02/03/2023) D-Dimer - 1442 ng/mL FEU eGFR (02/04/2023) eGFR - 44 mL/min/1.73 m2 HgbA1c (02/03/2023) Hgb A1C % - 7.9 % Procalcitonin (02/04/2023) Procalcitonin - 0.09 ng/mL PT & PTT (02/03/2023) PT - 11.1 second(s) INR - 1.0 PTT - 40.2 second(s) Rapid COVID Antigen ([facility]) (02/03/2023) Rapid COVID Ag - Not Detected Rapid COV Int NEG Ctl - Pass Rapid COV Int POS Ctl - Pass Respiratory Panel by PCR (02/04/2023) Adenovirus - Not Detected B. holmesii - Not Detected B. parapertussis/bronchiseptica - Not Detected B. pertussis - Not Detected Human Metapneumovirus - Not Detected Influenza A - Not Detected Influenza A (subtype H1) - Not Detected Influenza A (subtype H3) - Not Detected Influenza B - Not Detected Parainfluenza 1 - Not Detected Parainfluenza 2 - Not Detected Parainfluenza 3 - Not Detected Parainfluenza 4 - Not Detected Rhinovirus - Not Detected RSV A - Not Detected RSV B - Not Detected Troponin 0 Hr. (02/03/2023) Troponin - 7.80 pg/mL Troponin 3 Hr. (02/03/2023) Troponin - 9.10 pg/mL Troponin 6 Hr. (02/04/2023) Troponin - 9.00 pg/mL Troponin 9 Hr. (02/04/2023) Troponin - 9.80 pg/mL UA With Cult Reflex (02/03/2023) UA Spec Desc - Clean Catch UA Color - Yellow2 UA Clarity - Slightly Cloudy3 UA Spec Grav - 1.020 UA pH - 6.0 UA Protein - NEGATIVE1 UA Glucose - NEGATIVE1 UA Ketones - NEGATIVE1 UA Bili - NEGATIVE1 UA Blood - Trace2 UA Nitrite - NEGATIVE1 UA Urobilinogen - 0.2 UA Leuk Est - 1+ UA RBC - 0-3 UA Squam Epithelial - 0-2 UA WBC - 16-25 UA Bacteria - Trace2 UA Amorph Nisha - Present Tests Performed Automated Diff Blood Culture Charcoal -- Results Pending -- BMP BMP BNP Capillary Glucose POC CBC w/ Auto Diff D-Dimer eGFR HgbA1c Procalcitonin PT & PTT Rapid COVID Antigen [place] Respiratory Panel by PCR Troponin 0 Hr. Troponin 3 Hr. Troponin 6 Hr. Troponin 9 Hr. UA With Cult Reflex CTA Chest LE Venous Duplex US Bila (more content not included)...[facility] CenterComment on above:Result Comment: Electronically Signed By: Tia WU, Benoit\.br\Date and Time Signed: 02/04/23 16:56 [id number] NoteBasic Information Admit Date/Time:02/04/2023 00:26 Chief Complaint SOB History of Present Illness 67-year-old male who presented to the emergency room with shortness of breath that escalated this morning. He states past week he had a similar episode where he woke up and started doing his normal everyday activities. He felt short of breath and used his inhaler that he had at home, and his symptoms went away. Today the same thing happened, but when he used his inhaler his symptoms did not improve. They continued to worsen over the course of the day so he came into the ER for evaluation. He denies a prior history of asthma or COPD, but is a smoker. + cough. Denies any fevers or chills. No sick contacts. Past medical history is significant for diabetes, CKD stage III, hepatitis C, and a history of pancreatic cancer of which he still has a port. Upon presentation to the ER he was found to be 84% on room air, and required 4 L of oxygen. Does not wear home oxygen. Chest x-ray was negative. CTA of the chest was negative for PE, but did show evidence of interstitial lung disease. After a couple DuoNebs with oral prednisone he still remained 89% on room air at rest. Was admitted for a presumed COPD exacerbation. Review of Systems Constitutional: no fever, no chills, no sweats, no weakness Skin: no jaundice, no rash, no lesions, no petechiae ENMT: no ear pain, no sore throat, no congestion, no hoarseness Respiratory: + shortness of breath, cough, wheezing Cardiovascular: no chest pain, no palpitations, no edema Gastrointestinal: no nausea, no vomiting, no diarrhea, no abdominal pain Genitourinary: no dysuria, no hematuria Musculoskeletal: no trauma, no joint or muscle pain Neurologic: no headache, no dizziness Psychiatric: no depression, no anxiety Heme/Lymph: no bleeding tendency, no bruising tendency Additional ROS info: Except as noted in the above Review of Systems and in the History of Present Illness all other systems have been reviewed and are negative or noncontributory. Scoring Meléndez Fall Risk Score: 35 (02/03/23) Physical Exam Vitals & Measurements T: 36.5 ?C(Oral) TMIN: 36.5 ?C(Oral) TMAX: 36.7 ?C(Oral) HR: 82(Peripheral) RR: 18 BP: 161/72 SpO2:95% HT: 187.96 cm WT: 105.7 kg General: NAD, non-toxic in appearance Skin: warm, dry, no rash + tatooed Head: AT/NC Neck: Trachea midline, supple Eye: normal conjunctiva, sclera clear Cardiovascular: regular rate and rhythm, S1S2, normal peripheral perfusion Respiratory: Lungs with bilateral wheezing exp>insp, respirations non labored, breath sounds equal Chest wall: no deformity Gastrointestinal: soft, NT, ND, no peritoneal signs Extremities: no deformity, no edema Neurological: oriented, LOC appropriate for age, no focal deficits, normal speech Psychiatric: cooperative, affect appropriate for age, good eye contact Lab Results WBC: 9.2 E9/L (02/03/23::00) RBC: 4 E12/L Low (02/03/23::00) HGB: 11.5 gm/dL Low (02/03/23) Hct: 34.6 % Low (02/03/23:) MCV: 86.6 fL (02/03/23::00) MCH: 28.8 pg (02/03/23) MCHC: 33.2 gm/dL (02/03/23:00) RDW: 14.5 % High (02/03/23::00) Platelet: 195 E9/L (02/03/23::00) MPV: 8.8 fL (02/03/23::00) Neutro Auto: 56.9 % (02/03/23::00) Lymph Auto: 22.5 % (02/03/23::00) Alfalfa Auto: 7.2 % (02/03/23::) Eos Auto: 12.7 % High (02/03/23::00) Basophil Auto: 0.7 % (02/03/23::00) Neutro Absolute: 5.2 E9/L (02/03/23::00) Lymph Absolute: 2.1 E9/L (02/03/23::00) Alfalfa Absolute: 0.7 E9/L (02/03/23::00) Eos Absolute: 1.2 E9/L High (02/03/23::00) Basophil Absolute: 0.1 E9/L (02/03/23::00) PT: 11.1 second(s) (02/03/23::00) INR: 1 (02/03/23) PTT: 40.2 second(s) High (02/03/23:) D-Dimer: 1442 ng/mL FEU Critical (02/03/23::00) Glucose Lvl: 170 mg/dL (02/03/23:) BUN: 55 mg/dL High (02/03/23) Creatinine: 1.7 mg/dL High (02/03/23) eGFR: 44 mL/min/1.73 m2 Low (02/03/23) BUN/Creat Ratio: 32 High (02/03/23) Sodium Lvl: 135 mmol/L (02/03/23) Potassium Lvl: 5.2 mmol/L (02/03/23) Chloride: 107 mmol/L (02/03/23:) CO2: 23 mmol/L (02/03/23:) AGAP: 10 mEq/L (02/03/23:) Calcium Lvl: 9.4 mg/dL (02/03/23:) Troponin: 9 pg/mL Low (02/04/23 01:35:00) BNP: 21 pg/mL (02/03/23::) Glucose Cap: 157 mg/dL High (02/03/23:11:00) POC Device SN: [id number] (02/03/23 20:11:00) POC User ID: [id number] (02/03/23:11:) POC Username: RIVKA CIFUENTES (02/03/23 20:11:00) UA Spec Desc: Clean Catch (02/03/23:25:00) UA Color: Yellow2 (02/03/23 20:25:00) UA Clarity: Slightly Cloudy3 Abnormal (02/03/23:25:00) UA Spec Grav: 1.020 (11/26/23 20:25:00) UA pH: 6.0 (02/03/23 20:25:00) UA Protein: NEGATIVE1 (02/03/23 20:25:00) UA Glucose: NEGATIVE1 (02/03/23 20:25:00) UA Ketones: NEGATIVE1 (02/03/23 (more content not included)...[facility] CenterComment on above:Result Comment: Electronically Signed By: Anastasiia WU, Theodora\.br\Date and Time Signed: 02/04/23 02:11 [id number] NoteHNO ID: [id number] Author: Chelsey Vann APRN.DRUG CLERK Service: ? Author Type: Nurse Practitioner Type: Progress Notes Filed: 01/07/2023 4:14 PM Note Text: SCS assessed by [employer] rep Chelsey Vann APRN.CNPTrinity Health System10-09-2023 Evaluation note* Encounter Date Diagnosis Assessment Notes Treatment Notes Treatment Clinical Notes Dec, Chronic kidney disea se, stage 3b (ICD-10 - N18.32) He has a longstanding CKD due to DM with HTN. His baseline serum creatinine is around 1.7 to 2 mg/dL. I discussed with the importance of good DM and HTN control to surround the progression of CKD. He has trace hematuria and but no proteinuria. He had CT abdomen pelvis done in May, which showed No enhancing renal mass or hydronephrosis. Punctate stone left kidney. Dec, Diabetes mellitus wi th chronic kidney disease (ICD-10 - E11.22) Continue to follow-up with Dr. Dockery for DM management. Continue lisinopril for renal protection. Advised him to follow a low potassium diet as his potassium is high normal. I have explained to him that he may benefit with the SGLT 2 inhibitors including Farxiga Jardiance or Invokana. He can discuss with her about it. Dec, Hyponatremia (ICD-10 - E87.1) He has a chronic hyponatremia likely due to the liver cirrhosis. His serum sodium is within the acceptable range. Advised fluid restriction 50 ounces a day. Dec, Anemia of renal dise ase (ICD-10 - D63.1) Continue to follow with hematology. Dec, Secondary hyperparathyroidism (ICD-10 - N25.81) MBD parameters are within the goal. No need for calcitriol Dec, Nephrolithiasis (ICD -10 - N20.0) He denies any recent passage of kidney stones. Dec, Dyslipidemia (ICD-10 - E78.5) Continue statins. Monitor LFTs and lipid profile. [employer] Other 10-02-2023 Evaluation + Plan note Diagnostic Tests Pending * PTH Intact 12/10/22 [facility]09-12-2023 NoteHNO ID: [id number] Author: Elba Henry PA-C Service: ? Author Type: Physician Field Cashier Type: Progress Notes Filed: 11/20/2022 11:59 AM Note Text: Pain Management Follow up Spinal Cord Simulator Implantation Altagracia Conway is in the office following implantation of a Placement of Percutaneous SCS lead implantation x 2 and [employer] Intellis adaptiveStim system implantable pulse generator, on 11/13/[address] 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 Altagracia Conway reports he has no procedural pain at this time. He reports if he leans up against the IPG he will have some discomfort. He repots no pain at the surgical sites at this time. Altagracia Conway reports the first 2 days after the implant his foot pain was horrible. He reports he is having a better day today at this time. Altagracia Conway reports he is continuing to take his post-procedural antibiotic therapy. Exam: BP 153/77 Pulse 98 Ht 188 cm (6' 2 ) Wt 107.6 kg (237 lb 3.2 oz) BMI 30.45 kg/m? IPG site left lower back/upper buttock incision appears to be well approximated, it is clean, and dry, skin glue is starting to peel. Mild tenderness over the IPG site. Midline incision in the upper lumbar area is well approximated, it is clean and dry, skin glue is starting to peel. Assessment: Altagracia Conway presents to the office following implantation of a Placement of Percutaneous SCS lead implantation x 2 and [employer] Intellis adaptiveStim system implantable pulse generator, on 11/13/[address] 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 Surgical incisions appear well approximated - skin glue used no sutures to be removed. [employer] rep was present for this appointment and reprogramming was performed. 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 [employer] rep present for appointment and SCS reprogramming was performed. Complete post-procedural antibiotics as ordered. RTC in 3 months or sooner if needed. Elba Henry PA-C November 20[facility] Miscellaneous Notes* Telephone Encounter - Adriane Nicholson RN - 11/16/2022 11:33 AM EDT DATE OF SERVICE: 11/13/2022 PATIENT'S PHONE NUMBERS: [phone] (home) PROVIDER: Dr. Ortega PROCEDURE: Placement of Percutaneous SCS lead implantation x 2 and [employer] Intellis adaptiveStim system implantable pulse generator. Spoke directly with patient/caregiver Patient states that they are 0% better. ASSESSMENT AND PLAN: 1) S/P Permanent SCS Implant Today. 2) RTC in 7-10 days for follow up 3) Keflex 500mg QID x 7 days #28, Percocet 5/325 mg Q 6 hrs as needed for moderate to severe acute postoperative pain #20 4) The treatment plan was discussed with the patient. Post procedure instructions were reviewed andthe patient voiced understanding. Altagraica Conway was discharged home in stable condition. Jordan Ortega, DO Pain Management November 13, 2022 See Telephone encounter dated 11/16/2022 at 8:29am documented in this encounterAccess Hospital [facility]09-05-2023 NoteHNO ID: [id number] Author: Lori, Shelley K, RN Service: Nursing Author Type: Registered Nurse Type: Nursing Progress Note Filed: 11/13/2022 11:30 AM Note Text: 11[address] [employer] Collection Clerk from implant company here, adjusting stimulator accordinglyShaw [id number] Miscellaneous Notes* Telephone Encounter - Kristen Templeton LPN - 11/09/2022 2:10 PM EDT Spoke with pt this am, seen tele enc 11/09/2022. * Telephone Encounter - Zari Chapman LPN - 11/08/2022 5:17 PM EDT Called spoke with patient, scheduled for follow up visit with Marilyn Henry PA-C in [place] on 11/20/@ 11:00am. Please call tomorrow with reminder unable to write down. * Telephone Encounter - Aileen Fox - 11/08/2022 9:17 AM EDT Please schedule follow up office visit for 1 week after 11/13. * Telephone Encounter - Aileen Fox - 11/08/2022 8:16 AM EDT SCS PERMANENT PLACEMENT ALTAGRACIA LOWE [id number] [facility] [employer] REP EMAILED PRE ADMISSION TESTING APT SCHEDULED ENCOUNTER SENT TO NURSING TO SCHEDULE FOLLOW UP OFFICE VISIT ASC NOTIFIED -THINNERS +DM Patient was made aware that the ASC will call the day prior to scheduled procedure between the hours of 12 and 4 pm to advise patient of arrival time the day of procedure. Patient was advised that they will require a hog driver on the day of their procedure, and procedure will be cancelled if they arrive without a responsible adult to transport them home from the procedure. Patient advised that all medication management instructions prior to procedure will need addressed by clinical staff. Patient expresses understanding with no further questions or concerns at this time. Patient transferred to [facility] scheduling line to authorize procedure, or greendcat appointment made. documented in this encounterAccess Hospital [facility]09-01-2023 Miscellaneous Notes* Telephone Encounter - Kristen Templeton LPN - 11/09/2022 9:40 AM EDT Called patient, verified name and , regarding SCS procedure on 11/13/2022. Patient instructed: 1) Not to take any ASA or ASA containing medications for 10 days prior to procedure (including NSAIDS: Celebrex, Mobic or Naproxen and other OTC NSAIDS such as Ibuprofen or Aleve). 2) To buy Hibiclens OTC and shower with it the evening before and morning of the procedure being careful to avoid eyes, nose and mouth. 3) To notify the office for any signs of any kind of infection prior to the procedure as the procedure will need to be rescheduled. Patient is to follow the above instructions for SCS implant procedure. Patient verbalized understanding of instructions given. Patient will need scheduled for 1 week office f/u (in 30 min slot) with Dolly after SCS Implant. Patient scheduled for an appt on 11/20/2022 at 11 am with Dolly at the [facility] Office. Please notify the SCS Rep of the post op appt. Pt verbalized understanding of above. Pt instructed to call with any questions or concerns. documented in this encounterAccess Hospital Dayton08-30-2023 NoteHNO ID: [id number] Author: Jordan Ortega DO Service: ? Author Type: Physician Type: Progress Notes Filed: 11/07/2022 6:02 PM Note Text: [facility] Date: 11/07/2022 Name: Altagracia Conway Subjective: Altagracia Conway is a male with Diabetic Peripheral neuropathy and chemotherapy Induced. History of Neuropathy bilateral hand and foot. Percutaneous 60 cm Medtronic trial lead in the epidural space Percutaneous spinal cord stimulation trial 10/30/2022 and he reported Improvement in walking and function Positive improvement since my procedure on 10/30/2022 and he is able to function With less pain He is here for leads removal and scheduling for the permanent implantation. Objective: Pulse 74, height 188 cm (6' 2 ), weight 105.7 kg (233 lb), SpO2 97 %. Assessment and Plan: Altagracia Conway, 67YO M, with T2DM (HbA1C 7.6 as of 10/2022, insulin-dependent) complicated by peripheral neuropathy, HTN, HLD, current smoker, COPD, CKD3, and major depression underwent a SCS trial for diabetic neuropathy of bilateral feet. He had a 90% improvement in overall physical function (walking, standing) and analgesic relief with regards to his chronic bilateral foot pain. He had a remarkable response to the SCS trial and did not want the trial leads removed. He denies any fevers, chills, or signs and symptoms concerning for an acute infectious process. He had no apparent procedural complications and tolerated the SCS device well. We will schedule him for a permanent SCS implant next week. Andria Bedolla MD Crystal findings confirmed. Patient examined and plan outlined with the Resident physician and patient. Agree with the evaluation and plan as described above. Plan to proceed with permanent spinal cord stimulation implantation. Jordan Ortega DO November 07[facility] History of Present illness Narrative* Jordan Ortega DO - 11/07/2022 5:00 PM EDT [facility] Date: 11/07/2022 Name: Altagracia Conway Subjective: Altagracia Conway is a male with Diabetic Peripheral neuropathy and chemotherapy Induced. History of Neuropathy bilateral hand and foot. Percutaneous 60 cm Medtronic trial lead in the epidural space Percutaneous spinal cord stimulation trial 10/30/2022 and he reported Improvement in walking and function Positive improvement since my procedure on 10/30/2022 and he is able to function With less pain He is here for leads removal and scheduling for the permanent implantation. Objective: Pulse 74, height 188 cm (6' 2 ), weight 105.7 kg (233 lb), SpO2 97 %. Assessment and Plan: Altagracia Conway, 67YO M, with T2DM (HbA1C 7.6 as of 10/2022, insulin-dependent) complicated by peripheral neuropathy, HTN, HLD, current smoker, COPD, CKD3, and major depression underwent a SCS trial for diabetic neuropathy of bilateral feet. He had a 90% improvement in overall physical function (walking, standing) and analgesic relief with regards to his chronic bilateral foot pain. He had a remarkable response to the SCS trial and did not want the trial leads removed. He denies any fevers, chills, or signs and symptoms concerning for an acute infectious process. He had no apparent procedural complications and tolerated the SCS device well. We will schedule him for a permanent SCS implant next week. Andria Bedolla MD Crystal findings confirmed. Patient examined and plan outlined with the Resident physician and patient.Agree with the evaluation and plan as described above. Plan to proceed with permanent spinal cord stimulation implantation. Jordan Ortega DO November 07, 2022 documented in this encounterAccess Hospital [place]08-11-[facility]23 History and physical note * Teetee Yang PA-C - 10/19/2022 10:00 AM EDT Images from the original note were not included. HISTORY AND PHYSICAL EXAMINATION SERVICE DATE: 10/19/2022 SERVICE TIME: 10:05 AM PRIMARY CARE PHYSICIAN: Tiki Dockery REASON FOR VISIT: Altagracia Conway is a 67 year old male who is scheduled for Procedure(s) (LRB): PERCUTANEOUS IMPLANT LEAD NEUROSTIM EPIDURAL TRIAL (N/A) ELECTRONIC ANALYSIS IMPLANTED NEUROSTIMULATOR COMPLEX SPINAL CORD OR PERIPHERAL NERVE W/PROGRAMMING(N/A) at the request of Dr. Jordan Ortega for consultation. My final recommendation will be communicated back to the requesting physician by way of shared medical record or letter. The patient has the following: ACTIVE PROBLEM LIST Acute Hepatitis C Without Mention of Hepatic Coma(070.51) Senile Cataract, Unspecified Type 2 Diabetes Mellitus With Diabetic Polyneuropathy, With Long-Term Current Use of Insulin (Hcc) Chemotherapy-Induced Neuropathy (Hcc) Bilateral Foot Pain Bilateral Hand Pain Recurrent Major Depression in Remission (Hcc) History of Amputation of Right Great Toe (Hcc) Hypertension Hyperlipidemia Current Smoker Obesity (Bmi 30-39.9) Malignant Neoplasm of Pancreas (Hcc) Stage 3 Chronic Kidney Disease (Hcc) Chronic Obstructive Pulmonary Disease (Hcc) Subjective CHIEF COMPLAINT: Pain disorder with related psychological factor, other chronic pain HPI: Patient is a 67 year old male presenting to pre-anesthesia consultation. Patient has been experiencing worsening bilateral foot pain for the last couple months. Pain is worse at night but then at sometimes can last all day. Right is worse than left. He has been diagnosed with pain disorder with related psychological factors and other chronic pain and has been recommended for the above surgery. History reviewed. No pertinent past medical history. PAST SURGICAL HISTORY Procedure Laterality Date AMPUTATION TOE,MT-P JT Right big toe amputation COLONOSCOPY SCREENING PAST SURGICAL HISTORY OF 2015 whipple surgery for pancreatic cancer XCAPSL CTRC RMVL INSJ IO LENS PROSTH W/O ECP 11/04/2009 Performed by MARK BROWN at [facility] XCAPSL CTRC RMVL INSJ IO LENS PROSTH W/O ECP 11/11/2009 Performed by MARK BROWN at [facility] FAMILY HISTORY Problem Relation Age of Onset Pancreatic Cancer Mother Pancreatic Cancer Father SOCIAL HISTORY: Social History Tobacco Use Smoking status: Every Day Packs/day: 0.50 Years: 30.00 Total pack years: 15.00 Types: Cigarettes Smokeless tobacco: Never Substance Use Topics Alcohol use: Not Currently Drug use: Yes Types: Marijuana Comment: smoke- daily MEDICATIONS: Prior to Admission medications as of 10/19/22 1026 Medication Sig Last Dose Taking insulin degludec (TRESIBA FLEXTOUCH U-100) 100 unit/mL (3 mL) injection pen 34 Applicators by abdominal subcutaneous route once daily. Taking Yes blood-glucose sensor (DEXCOM G7 SENSOR [facility]) 1 Each. Taking Yes insulin aspart U-100 (NOVOLOG FLEXPEN U-100 INSULIN) 100 unit/mL (3 mL) 60 units in morning, 60 units for lunch, and sliding scale for dinner Taking Yes amlodipine besylate (AMLODIPINE ORAL) Take 10 mg by mouth once daily. Taking Yes levomilnacipran (FETZIMA) 120 mg ER capsule Take 160 mg by mouth once daily. Taking Yes tamsulosin (FLOMAX) 0.4 mg Take 0.4 mg by mouth once daily. Taking Yes furosemide (LASIX) 20 mg tablet Take 20 mg by mouth once daily. Taking Yes mirtazapine (REMERON) 45 mg tablet Take 45 mg by mouth daily at bedtime. Taking Yes pregabalin (LYRICA) 150 mg capsule Take 150 mg by mouth. Weaning off medication Taking Yes CREON 36,000-114,000- 180,000 unit delayed release capsule Take 2 capsules by mouth three times daily. Taking Yes budesonide-formoterol (SYMBICORT) 160-4.5 mcg/actuation inhaler Inhale 2 Puffs as instructed twice daily. Taking Yes albuterol HFA (PROVENTIL HFA, VENTOLIN HFA) 90 mcg/actuation inhaler Inhale 2 Puffs as instructed every 4 hours as needed for Wheezing/Shortness of Breath. Taking Yes lisinopril(PRINIVIL 20 MG TAB) Take one(1) tablet daily. Taking Yes atorvastatin calcium(LIPITOR 10 MG TAB) Take one(1) tablet daily. Taking Yes lorazepam(ATIVAN 1 MG TAB) Take by mouth. BID weaning off Taking Yes No medication comments found. CURRENT ALLERGIES: ALLERGIES Allergen Reactions Pollen runny itchy eyes and nose COVID VACCINATION STATUS: Fully vaccinated REVIEW OF SYSTEMS: PAIN ASSESSMENT: General: No weight loss, malaise or fevers. Neuro: +chemo-induced neuropathy- in bilateral hands, bilateral leg weakness since fall in April2022. Negative for TIA's Headaches Seizures Respiratory: +current smoker (cigarettes, marijuana) questionable COPD, chronic smoker's cough, chronic ELLINGTON with moderate exertion Negative for Asthma, Home O2, Pneumonia within 6 weeks (date), URI < 2 weeks, Wheezing Cardiovascular: +HTN, HLD Negative for Recent TX, Angina, Arrhythmia, CAD, Chest Pain, CHF, DVT/PE GI: +Hep C No history of GI symptoms or problems. No history of esophageal varices, recent ascites,or ETOH greater than 2 drinks per day. : +CKDIII, hx kidney stones Negative for dysuria, frequency, incontinence, and hematuria Endocrine: +DMII Denies any history of other endocrine symptoms/problems. Hematology: No history of bleeding or clotting disorder. Pt is not taking anti- coagulation or platelet medications. No history of hematological symptoms or problems. Oncology: +pancreatic cancer s/p whipple and adjuvant chemotherapy (2015) Psych: +MDD- controlled on medication Musculoskeletal: See HPI Skin: Negative for lesions, rash and itching. Objective PHYSICAL EXAM: VITALS: BP 160/82 Pulse 90 Temp (Src) 98.6 (Oral) Resp 20 Ht 6' 7 (2.01m) Wt 239 lb (108.4kg) SpO2 97% BMI 26.91 kg/(m^2). General: Alert and oriented Skin: Normal color, no rash, no lesions. HEENT: EOM, pupils equal, round and reactive. Cardiovascular: Normal S1 & S2, no rubs, murmurs or gallops. No JVD. Pulse regular. Lungs: Normal breath sounds, no wheezes or crackles. Abdomen: Soft, non-tender, no rigidity. Extremities: Mild right LE edema, none on left LE. No deformity, no tenderness, no joint swelling or clubbing. Neurological: Normal cognition and motor skills. Pulses: Carotid and radial pulses normal +2. Diagnostic tests reviewed for today's visit: CBC- 03/01/22- [facility] Everywhere CMP- 07/14/21- [facility] Lab Value Units Date High Low HB No results within date range. HCT No results within date range. WBC No results within date range. PLT No results within date range. NA 136 mmol/L 10/19/2022 144 136 K 5.0 mmol/L 10/19/2022 5.1 3.7 GLUC 230 mg/dL 10/19/2022 99 74 BUN 45 mg/dL 10/19/2022 24 9 CREAT 1.68 mg/dL 10/19/2022 1.22 0.73 PTSEC No results within date range. INR No results within date range. APTT No results within date range. ALT 32 U/L 10/19/2022 54 10 AST 30 U/L 10/19/2022 40 14 TBILI 0.2 mg/dL 10/19/2022 1.3 0.2 TSH No results within date range. Lab Value Units Date High Low HCGQT No results within date range. UHCG No results within date range. HCG, BODY* No results within date range. Lab Value Units Date High Low ABORHD No results within date range. ABSCREEN No results within date range. No results found for: HBA1C Stress test- 02/23/21-[facility] Everywhere CONCLUSION: 1. Lexiscan Cardiolite stress test without diagnostic ST-T changes for ischemia. 2. No provoked chest pain or arrhythmia. 3. Typical vasodilatory symptoms during Lexiscan infusion. 4. Appropriate hemodynamic response to Lexiscan. 5. Perfusion images will be dictated separately. PFTS- 06/06/21- Care Everywhere OVERALL IMPRESSION: This study was generally remarkable for mild diffusion impairment, but no significant obstructive or restrictive impairment was noted. The possibility of mild emphysema causing diffusion abnormality versus other causes cannot be established here without obstructive abnormality noted. Assessment/Plan 1. Pre-op evaluation Surgery scheduled on 10/30/2022. - HGB A1C; Future - COMP METABOLIC PANEL; Future 2. Hypertension, unspecified type BP 160/82. Taking lisinopril and amlodipine (Norvasc). Patient states he had to walk a long distance from the parking lot to his appointment today. Denies any CP, dizziness, double vision, or ELLINGTON. Elevated but acceptable per anesthesia guidelines. Stable. 3. Hyperlipidemia, unspecified hyperlipidemia type Taking atorvastatin (Lipitor). 4. Current smoker Smokes 0.5 ppd x 30 years, but trying to cut down. Also smokes Marijuana daily. Advised to stop marijuana a week prior to surgery and patient agreeable. 5. Type 2 diabetes mellitus with diabetic polyneuropathy, with long-term current use of insulin (HCC) Taking insulin Novolog and Tresiba. Follows with endocrinology, Dr. Tiki Dockery. Has Dexcom meter, but states his fasting range between 100-120s. No recent A1c found, will get HgbA1c today. - HGB A1C; Future 6. Stage 3 chronic kidney disease, unspecified whether stage 3a or 3b CKD (HCC) CMP from 07/14/21 demonstrated BUN 39, Cr 1.4, and GFR 50. Follows with kidney medicine outside [facility]. Will get repeat CMP today. CMP demonstrates BUN 45, Cr 1.68, and GFR 44. Chronic and stable. 7. Malignant neoplasm of pancreas, unspecified location of malignancy (HCC) 2016 s/p open Whipple and adjuvant chemotherapy. Remission. 8. Chronic obstructive pulmonary disease, unspecified COPD type ([facility]) PCP following. Uses Symbicort and albuterol inhalers daily. PFTs from 06/06/21 demonstrated possiblemild emphysema. Has chronic ELLINGTON with moderate exertion, but this is baseline and chronic for patient. Able to still do ADLs without SOB. Stairs cause some ELLINGTON. Lungs CTAB and SpO2 97% RA. Stable. METS: Do moderate work around the house such as vacuuming, sweeping floors, or carrying in groceries (3.50 METs) Patient denies any chest pain or undue shortness of breath with the above physical activity. ASA Class: 3 ANESTHESIA FINDINGS: Intubation History: No history of difficult intubation Significant Anesthesia Considerations: None Airway Exam: General: Normal appearance Mallampati Score is CLASS II ULBT: Class I - Lower incisors can bite the upper lip above the hany line Neck: Normal appearance and function, Distance from hyoid to mentum during neck extension is at least 3 finger breaths Mouth: Normal tongue size and Mouth opening greater than 2 finger breaths Dentition: Intact; Missing teeth Airway History: No abnormal airway history STOP BANG Score: Criteria: Hypertension Age over 50 (67 year old) Male gender Score = 3 PLAN This patient is optimally prepared for surgery pending LABS. CONSULTS: Patient does not require consults for optimization at this time. The Following Tests/Procedures Have Been Initiated: Orders Placed This Encounter HGB A1C Standing Status: Future Number of Occurrences: 1 Standing Expiration Date: 12/19/2022 CMP Standing Status: Future Number of Occurrences: 1 Standing Expiration Date: 12/19/2022 insulin degludec (TRESIBA FLEXTOUCH U-100) 100 unit/mL (3 mL) injection pen Si Applicators by abdominal subcutaneous route once daily. blood-glucose sensor (DEXCOM G7 SENSOR MISC) Si Each. insulin aspart U-100 (NOVOLOG FLEXPEN U-100 INSULIN) 100 unit/mL (3 mL) Si units in morning, 60 units for lunch, and sliding scale for dinner amlodipine besylate (AMLODIPINE ORAL) Sig: Take 10 mg by mouth once daily. levomilnacipran (FETZIMA) 120 mg ER capsule Sig: Take 160 mg by mouth once daily. tamsulosin (FLOMAX) 0.4 mg Sig: Take 0.4 mg by mouth once daily. furosemide (LASIX) 20 mg tablet Sig: Take 20 mg by mouth once daily. mirtazapine (REMERON) 45 mg tablet Sig: Take 45 mg by mouth daily at bedtime. , EKG not indicated per [facility] protocol Planned Anesthetic: MAC Instructions Given to Patient: Instructions located in the after visit summary. Patient given verbal and written preop instructions and voices comprehension and compliance. SIGNATURE: Teetee Yang PA-C PATIENT NAME: Altagracia Conway DATE: 10/19/2022 TIME: 11:57 AM documented in this encounterAccess Hospital [facility]08-10-2023 Instructions* Patient Instructions* Teetee Yang PA-C - 10/18/2022 1:47 PM EDT PATIENT PREOPERATIVE INSTRUCTIONS Jordan Ortega DO has scheduled you for your procedure at this surgery center: [facility]: [phone] --[address] [place] [address]. Lab work ordered today, recommended to be completed today. Arrival Time for Surgery: - The Surgery Center or hospital where you are having surgery will call the afternoon before surgery (or Saturday for Saturday surgery) with a scheduled arrival time. - If you have not heard by 4 pm, please contact the surgery center above. Please be aware that emergency situations arise, which may delay or change your surgical time. If this happens, we will notify you as soon as possible and regret any inconvenience. Please read below carefully for your personalized instructions. Dietary Restrictions: - No solid food after midnight. - You may have 12 ounces of clear liquids (water, clear juices such as apple juice or gatorade, carbonated beverages, clear tea, black coffee, jello) until 2 hours before scheduled arrival at facility. Medications: Unless instructed differently below, stay on all of your medications until your surgery. Approved medications to take the morning of surgery with a sip of water: pregabalin (Lyrica), atorvastatin (Lipitor), amlodipine (Norvasc), levomilnacipran (Fetzima), tamsulosin (Flomax) DO NOT TAKE YOUR lisinopril(Zestril) THE NIGHT BEFORE OR MORNING OF SURGERY Is Patient Diabetic:Yes Preoperative Instructions for Patient's with Diabetes Mellitus Diabetic Medication Instructions: N/A Insulin Medication Instructions:Please take the following medications at your usual dose the day before surgery. DO NOT TAKE THE MORNING OF SURGERY: Afrezza, Novolog, Regular Insulin, Apidra and Humalog For the following medication, take 75% of your usual dose the evening before surgery. If not possible to take 75% of your usual dose then take your full dose. DO NOT TAKE ON THE MORNING OF SURGERY: Basaglar, Lantus, Levemir, Rougeo and Tresiba If you take any medications for erectile dysfunction-Cialis (Tadalafil), Levitra, Staxyn (Vardenafil) Viagra (Sildenenafil please do not take these for 48 hours before surgery. If you start any new medications after today's visit, please contact the surgeon's office. Blood Thinning Medications: - Stop NSAIDS (Ibuprofen, Advil, Aleve, Motrin, Celebrex, Mobic, etc.) 7 days before surgery, as directed by your surgeon. - Stop Aspirin 7 days before surgery, as directed by your surgeon. - Stop Vitamin E, ALL multi-vitamins, herbals and dietary supplements 7 days before surgery. - You may take Tylenol (Acetaminophen) or any of your pain medications that do not contain aspirin or NSAIDS as needed. Important Reminders: - If you are prescribed inhalers for breathing, continue using them. - Candy, mints, and tobacco products are NOT permitted the morning of surgery. - Hearing aids, dentures and glasses may be worn the morning of surgery. - NO jewelry, body piercings, makeup, hairpins or contacts are to be worn the day of surgery. If you develop symptoms such as a fever, cold, or flu, or have other changes to your health within TWO DAYS of scheduled surgery or the morning of surgery, please contact the surgery center above. Personal Belongings: -Please have photo ID and insurance cards. -If you do not have a copy of advance directives on file with us, please bring a copy with you on the day of surgery. - Leave ALL valuables and money at home or with family members. For Outpatient Procedures: - YOU MUST HAVE A RESPONSIBLE RN ON SITE TAKE YOU HOME. A LITIGATION PARTNER OR DESIGN SPECIALIST CANNOT BE MADE A RESPONSIBLE RN ON SITE. - We recommend that a responsible person stays with you overnight to take care of you. - You cannot stay in a hotel alone after outpatient surgery. You will not be permitted to have yoursurgery, if you do not have someone to take care of you. If you already have an Advance Directive, please fax a copy to [phone] or email to for it to be added to your chart. If you do not have an Advance Directive, you can find the appropriate form and more information at [email or web address]. We recommend that youcomplete the Advance Directive form found on the website and bring it with you the day of your surgery. It can be witnessed and scanned into your chart that day. Teetee Yang PA-C documented in this encounterAccess Hospital [facility]07-11-2023 Miscellaneous Notes* Telephone Encounter - Aileen Fox - 09/18/2022 9:21 AM EDT SCS TRIAL [employer] JORDAN ANDERSON DM Spoke to patient. Patient declines scheduling at this time. Just started back to work at a new job. documented in this encounterAccess Hospital [facility]06-30-2023 NoteHNO ID: [id number] Author: Guru Osorio, PhD Service: ? Author Type: Psychologist Type: Progress Notes Filed: 09/11/2022 5:01 PM Note Text: [facility] REFERRING PHYSICIAN: Jordan Ortega DO ATTENDING PHYSICIAN: Guru Osorio, PHD Altagracia Conway PATIENT TYPE: [facility] : 1955 DATE OF SERVICE: September 07, 2022 IDENTIFYING INFORMATION Altagracia Conway is a 66 year old male from [place], [place] who was referred for evaluation by Jordan Ortega DO to determine if he would be an appropriate candidate for spinal cord stimulator. 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 The report reflects the likelihood of underlying diabetic neuropathy aggravated by chemotherapy. His pain is in his feet and his hands, but he understands that the stimulator will just be for his lower body and extremities. He reports his pain to be a 10 on a typical day, especially at night, but there are times when he has no pain at all. He states his pain is there daily, but does not start to bother him until afternoon. He describes it as feeling like a pair of pliers squeezing and letting go and repeating the process ad infinitum. Lying down, trying to go to sleep exacerbate his pain, adding it just comes on when it wants to. He has not found anything yet to provide relief except walking and he may walk for hours in his apartment to try to relieve his pain. CIRCUMSTANCES OF ONSET He reports his pain began 2 years ago after chemotherapy for pancreatic cancer, with symptoms worsening ever since. He states he is status post pancreatectomy and chemotherapy. He did have pain in his feet for 5 years prior to chemotherapy, but it was exacerbated by the process. He states that worsens as he ages. OTHER PHYSICAL CONDITIONS There are no active hospital problems to display for this patient. No past medical history on file. PAST SURGICAL HISTORY Procedure Laterality Date XCAPSL CTRC RMVL INSJ IO LENS PROSTH W/O ECP 11/04/09 Performed by MARK BROWN at [facility] XCAPSL CTRC RMVL INSJ IO LENS PROSTH W/O ECP 11/11/09 Performed by MARK BROWN at [facility] RELEVANT MEDICAL HISTORY He has had his right great toe amputated. He has just begun treatment with Dr. Ortega. He has not had physical therapy, nor has he seen a psychologist nor psychiatrist for pain management; however he has a history of depression for which she sees a psychiatrist every 3 [facility]. He has taken medication without relief and reports that no treatment so far has helped. CURRENT MEDICATIONS Current Outpatient Medications Medication Sig Dispense Refill pregabalin (LYRICA) 150 mg capsule Take 150 mg by mouth. Weaning off medication CREON 36,000-114,000- 180,000 unit delayed release capsule Take 2 capsules by mouth three times daily. ARIPiprazole (ABILIFY) 2 mg tablet Take 2 mg by mouth once daily. budesonide-formoterol (SYMBICORT) 160-4.5 mcg/actuation inhaler Inhale 2 Puffs as instructed twice daily. albuterol HFA (PROVENTIL HFA, VENTOLIN HFA) 90 mcg/actuation inhaler Inhale 2 Puffs as instructed every 4 hours as needed for Wheezing/Shortness of Breath. lisinopril(PRINIVIL 20 MG TAB) Take one(1) tablet daily. 0 atorvastatin calcium(LIPITOR 10 MG TAB) Take one(1) tablet daily. 0 lorazepam(ATIVAN 1 MG TAB) Take by mouth. BID weaning off 0 No current facility-administered medications for this visit. ALLERGIES ALLERGIES Allergen Reactions Pollen runny itchy eyes and nose SUBSTANCE USE He denies alcohol, caffeine, CBD oil consumption. He uses a bit of marijuana on occasion and does smoke with his smoking reduced to 1 pack every 3 days. He understands the impact smoking has on his pain and in particular neuropathy, but appears to be reluctant to quit. He denies any history of substance abuse. FAMILY HISTORY His mother at age 69 of pancreatic cancer as did his father at age 82. His parents had been together he states that he had a Whipple adding I'm cancer free. He had 5 brothers, all older, 3 , 2 living. 2 older sisters are , one just a week ago at age 87 of COVOR. His siblings were much older and he did not grow up with them, but reports having a great relationship with his parents, with no history of being abused. He has been 7 years following 3 marriages, the first ending after just a year, the second lasting 16 years and producing 3 children now grown, all living in [place], 2 sons, 1 a precinct police sergeant, 1 in construction, and a daughter who is kind of a lost case. He lives alone with 8 steps to his apartment. He is not involved in a re (more content not included)...[facility]06-30-2023 History of Present illness Narrative* Guru Osorio, PhD - 09/07/2022 1:00 PM EDT [facility] REFERRING PHYSICIAN: Jordan Ortega DO ATTENDING PHYSICIAN: Guru Osorio, PHD Altagracia Conway PATIENT TYPE: [facility] : 1955 DATE OF SERVICE: September 07, 2022 IDENTIFYING INFORMATION Altagracia Conway is a 66 year old male from [place], [place] who was referred for evaluation by Jordan Ortega DO to determine if he would be an appropriate candidate for spinal cord stimulator. 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 The report reflects the likelihood of underlying diabetic neuropathy aggravated by chemotherapy. His pain is in his feet and his hands, but he understands that the stimulator will just be for his lower body and extremities. He reports his pain to be a 10 on a typical day, especially at night, but there are times when he has no pain at all. He states his pain is there daily, but does not start to bother him until afternoon. He describes it as feeling like a pair of pliers squeezing and letting go and repeating the process ad infinitum.Lying down, trying to go to sleep exacerbate his pain, adding it just comes on when it wants to. Hehas not found anything yet to provide relief except walking and he may walk for hours in his apartment to try to relieve his pain. CIRCUMSTANCES OF ONSET He reports his pain began 2 years ago after chemotherapy for pancreatic cancer, with symptoms worsening ever since. He states he is status post pancreatectomy and chemotherapy. He did have pain in his feet for 5 years prior to chemotherapy, but it was exacerbated by the process. He states that worsens as he ages. OTHER PHYSICAL CONDITIONS There are no active hospital problems to display for this patient. No past medical history on file. PAST SURGICAL HISTORY Procedure Laterality Date XCAPSL CTRC RMVL INSJ IO LENS PROSTH W/O ECP 11/04/09 Performed by MARK BROWN at [facility] XCAPSL CTRC RMVL INSJ IO LENS PROSTH W/O ECP 11/11/09 Performed by MARK BROWN at [facility] RELEVANT MEDICAL HISTORY He has had his right great toe amputated. He has just begun treatment with Dr. Ortega. He has not had physical therapy, nor has he seen a psychologist nor psychiatrist for pain management; however hehas a history of depression for which she sees a psychiatrist every 3 months at [facility]. He has taken medication without relief and reports that no treatment so far has helped. CURRENT MEDICATIONS Current Outpatient Medications Medication Sig Dispense Refill pregabalin (LYRICA) 150 mg capsule Take 150 mg by mouth. Weaning off medication CREON 36,000-114,000- 180,000 unit delayed release capsule Take 2 capsules by mouth three times daily. ARIPiprazole (ABILIFY) 2 mg tablet Take 2 mg by mouth once daily. budesonide-formoterol (SYMBICORT) 160-4.5 mcg/actuation inhaler Inhale 2 Puffs as instructed twice daily. albuterol HFA (PROVENTIL HFA, VENTOLIN HFA) 90 mcg/actuation inhaler Inhale 2 Puffs as instructed every 4 hours as needed for Wheezing/Shortness of Breath. lisinopril(PRINIVIL 20 MG TAB) Take one(1) tablet daily. 0 atorvastatin calcium(LIPITOR 10 MG TAB) Take one(1) tablet daily. 0 lorazepam(ATIVAN 1 MG TAB) Take by mouth. BID weaning off 0 No current facility-administered medications for this visit. ALLERGIES ALLERGIES Allergen Reactions Pollen runny itchy eyes and nose SUBSTANCE USE He denies alcohol, caffeine, CBD oil consumption. He uses a bit of marijuana on occasion and does smoke with his smoking reduced to 1 pack every 3 days. He understands the impact smoking has on his pain and in particular neuropathy, but appears to be reluctant to quit. He denies any history of substance abuse. FAMILY HISTORY His mother at age 69 of pancreatic cancer as did his father at age 82. His parents had been together he states that he had a Whipple adding I'm cancer free. He had 5 brothers, all older, 3 , 2 living. 2 older sisters are , one just a week ago at age 87 of COVOR. His siblings were much older and he did not grow up with them, but reports having a great relationship with his parents, with no history of being abused. He has been 7 years following 3 marriages, the first ending after just a year, the second lasting 16 years and producing 3 children now grown, all living in [place], 2 sons, 1 a precinct police sergeant, 1 in construction, and a daughter who is kind of a lostcase. He lives alone with 8 steps to his apartment. He is not involved in a relationship at this point in time. 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 He has not served in the . 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 INTERVIEW He arrived for his appointment appropriately groomed exhibiting extensive tattoos on both arms. He was able to sit throughout his session and was friendly, pleasant, and cooperative. He reports a little difficulty with memory, denies trouble concentration. He denies mood changes, frustration, irrita bility, anger. He reports a little anxiety and does acknowledge depression, again noting that he isin treatment with a psychiatrist for that. He denies any suicidal ideation. He has difficulty with sleep onset and maintenance. He does not exercise, but states that he has not really relinquished any activities, but not have a lot. His social and leisure activities are mostly centered on watching television. A typical day involves getting up, eating breakfast, watching TV, cleaning the house, and watching MTV. When asked what he would like to be doing if he had some relief from his pain, he states that he does not know. He hopes to see his great grandchild and granddaughter. He notes his dabelinda hter has a drug problem and his granddaughter is only 15 years old had a baby in November 30 and he ended up with custody on and off for a while. They are now in foster care. She also has [id number] who are with her. He was asked about expectations for stimulator and states that he read about it and talk to people who have had it. He is aware that it is not going to eliminate his pain, adding even 50% would be better than it is. We discussed the stimulator in detail utilizing demonstration models and visual images. We addressed pulse generation and high-frequency, the trial process, and permanent implant. TESTS ADMINISTERED 1. Root Depression Inventory (BDI-II) 2. Pain Disability Index (PDI) 3. Personality Assessment Inventory (LEO) 4. Chronic Pain Coping Inventory (CPCI) 5. Oswestry Low Back Disability Questionnaire TEST INTERPRETATION His score of 15 on the BDI suggest mild depression without suicidal ideation. His score of 31 on the PDI suggests he sees himself as moderately disabled; whereas his score on the Oswestry suggests only mild disability. His scores on the CPCI on illness focused coping strategies are all in the modera te/subclinical range, with resting and guarding needing more improvement than asking for assistance. He had a wide range of scores on wellness focused coping strategies with exercise/stretching at the very bottom of the severe range, suggesting he does absolutely none. Relaxation is in the middle of the moderate range, and seeking social support is on the border between moderate and adaptive. He sees himself as completely adaptive with task persistence, coping self statements, and pacing. He was also administered the Personality Assessment Inventory, the results of which suggest he responded to test items in a manner suggestive of someone who is pointing out areas of concern, wants help forthem, but may be somewhat defensive in other areas. He sees himself as having a high level of health concerns, with a moderate focus on them, and a moderate propensity for internalizing his emotions and finding they contribute to increased physical distress. He reports anxiety to be low across all 3 subcategories, cognitive, emotional, physiological. He is likely to have a moderate level of traumatic stress with a moderate level of phobias associated with it. Depression is moderately elevated on the emotional and cognitive aspects, highly elevated on the physiological, likely to include fatigue, lack of energy, sleep disturbance. He may feel that he has been treated unfairly, to a moderate degree, with a moderate level of resentment. He denies any unusual experiences. He is likely to havedifficulty with personal relationships, consistent with 3 marriages than 3 divorces. He may have some identity issues at this point in time after a lengthy career as a trucking supervisor and being retired t o spending his time watching television now. He is likely to be somewhat impulsive, which may affect his judgment. He may also be a little bit difficult to please. He denies anger, and may internalize the to some extent. He does acknowledge being troubled by memories of the bad experience. His difficulties with his daughter and subsequent concerns with his granddaughter may contribute to some of this. He denies substance abuse, denies suicidal ideation, sees himself as having mild to moderate stress, but not much at all as far as support. He is also likely to feel he does not have a lot of control over his life. His profile is consistent with his treatment for depression, which is the predominant factor in his profile. He is likely to value harmonious relationships, be uncomfortable with confrontation or conflict, quick to forgive others and give them a second chance. IMPRESSIONS 1. 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 2. He is also being treated for depression, unspecified type, F32.A, for which he sees a psychiatrist at [facility] every 3 months. 3. He is aware of the impact of smoking on his health overall and his pain in particular. He has cut back, but is still smoking a pack of cigarettes every 3 days and may be somewhat reluctant to relinquish that. 4. He does not appear to have much of a social situation and may be somewhat isolated. He does have3 adult children in the [place] area, a son who is a precinct police sergeant, another son in construction, and a daughter with a drug problem and a granddaughter and great granddaughter in foster care. 5. He is not very active, but feels that he has not really relinquished a lot of activities becauseof his pain; he just did not have many to begin with. That is not so unusual with someone who has spent a career of 35 years driving a truck over the road. 6. There is an indication of trauma in his life, not sufficient for diagnosis of PTSD, but it may have an impact on outcomes with neuromodulation. 7. We discussed the stimulator in detail utilizing demonstration models and visual images. He appears to have a reasonable understanding of the process and realistic expectations for about 50% relief. 8. He does not have a lot of goals, and may be a bit bored sitting home at this point in time. 9. He finds walking is the one activity that alleviates his pain, and although he does not really exercise, he paces about his apartment extensively to try to relieve his pain. RECOMMENDATIONS 1. Although there are some areas of concern, including smoking, overall he appears to be a reasonable candidate for spinal cord stimulator and it is recommended that he proceed to trial. It would be beneficial to identify for him activities to do during the trial to help ascertain whether or not heis receiving benefit. 2. He was instructed to maintain a journal of activities, including walking, sleep, his pain level,and what he likes and does not like about the trial process as part of determining whether or not to proceed to permanent implant. 3. If he does well with the trial and would like to continue to permanent implant, it would be so indicated. Guru Osorio, PHD [facility] NoteHNO ID: [id number] Author: Jordan Ortega, DO Service: ? Author Type: Physician Type: Progress Notes Filed: 08/13/2022 12:04 PM Note Text: [facility] Initial Evaluation August 13, 2022 This appointment was requested by Dr Blas for my medical opinion regarding the evaluation and management of the patient's Altagracia Conway problems, and my final recommendations will be communicated to the requesting health care provider by way of the shared medical record for internal providers or letter via the Sleep Number Postal Service for external providers. SUBJECTIVE: Altagracia Conway a 66 year old [facility], accompanied by self only, was referred by Dr Blas for an initial evaluation for neuropathy of bilateral hands and feet. The pain is located in the bilateral hand and foot Distribution: bilateral feet pain is greater Started 2 years ago after chemo treatments (Pancreatic CA) and symptoms have been worsening. Characterized as burning, numbness, and tingling Currently the pain is a rated at a 9 on a scale of 0-10. Worst pain score is rated at 10 on a scale of 0-10. Best pain score is rated at 4 on a scale of 0-10. Aggravated by sitting and lying down. Mitigated by walking. Current treatments and response: Lyrica 150 mg once daily Response to previous treatments: None Alcohol Abuse - No Drug Abuse - No Current Anticoagulant Therapy: No Sleep Disturbance: Yes: Difficulty falling asleep. and Difficulty staying asleep. No past medical history on file. PAST SURGICAL HISTORY Procedure Laterality Date REMV CATARACT EXTRACAP,INSERT LENS 11/04/09 Performed by MARK BROWN at [facility] REMV CATARACT EXTRACAP,INSERT LENS 11/11/09 Performed by MARK BROWN at [facility] Social History Tobacco Use Smoking status: Every Day Packs/day: 0.50 Years: 30.00 Pack years: 15.00 Types: Cigarettes Substance Use Topics Alcohol use: Yes No family history on file. ALLERGIES Allergen Reactions Pollen runny itchy eyes and nose Current Outpatient Medications Medication Sig metFORMIN (GLUCOPHAGE) 1,000 mg tablet Take 2 tablets by mouth once daily. ARIPiprazole (ABILIFY) 2 mg tablet Take 2 mg by mouth once daily. FLUoxetine HCl (PROZAC) 40 mg capsule Take 40 mg by mouth once daily. budesonide-formoterol (SYMBICORT) 160-4.5 mcg/actuation inhaler Inhale 2 Puffs as instructed twice daily. liraglutide (VICTOZA 2-CATALINA) 0.6 mg/0.1 mL (18 mg/3 mL) pnij Inject 1.2 mg subcutaneously twice daily. albuterol HFA (PROVENTIL HFA, VENTOLIN HFA) 90 mcg/actuation inhaler Inhale 2 Puffs as instructed every 4 hours as needed for Wheezing/Shortness of Breath. lisinopril(PRINIVIL 20 MG TAB) Take one(1) tablet daily. atorvastatin calcium(LIPITOR 10 MG TAB) Take one(1) tablet daily. lorazepam(ATIVAN 1 MG TAB) three tabs before bed aspirin(ECOTRIN LOW STRENGTH 81 MG TAB) Take one (1) tablet daily. No current facility-administered medications for this visit. Review of Symptoms: GENERAL:No weight loss, malaise or fevers., SEE HPI HEENT:Negative for frequent or significant headaches, No changes in hearing or vision, no nose bleeds or other nasal problems NECK:Negative for lumps, goiter, pain and significant neck swelling RESPIRATORY: Negative for cough, wheezing or shortness of breath. CARDIOVASCULAR: Negative for chest pain, leg swelling and palpitations GASTROINTESTINAL: Negative for abdominal discomfort, blood in stools or black stools or change in bowel habits GENITOURINARY: No history of dysuria, frequency or incontinence BELLSTAFF: Negative for abnormal vaginal bleeding, abnormal vaginal discharge MUSCULOSKELETAL:bilateral hand a feet NEUROLOGIC:Negative for focal numbness or weakness, headaches and dizziness or syncope. SKIN:Negative for lesions, rash, and itching. PSYCHIATRIC: Negative for sleep disturbance, mood disorder and recent psychosocial stressors. HEMATOLOGIC/LYMPHATIC/IMMUNOLOGIC:Negative for prolonged bleeding, bruising easily or swollen nodes. ENDOCRINE: Negative for cold or heat intolerance, polyuria, polydipsia and goiter. The remainder of the ROS was negative. PREVIOUS TREATMENTS LASTING SIX WEEKS IN THE LAST SIX MONTHS Active conservative therapy lasting 6 weeks in the last six months (see below) 1. Physical therapy: No 2. Home exercise program after PT: No 3. Occupational therapy: No 4. A physician supervised home exercise program (HEP): No 5. Camp Director: No Passive conservative therapy lasting 6 weeks in the last six months (see below) 1. Medical devises: No 2. Acupuncture: No 3. Tens unit: No 4. Prescription pain medication: No 5. NSAIDS: No Do you feel safe at home? Yes Risk assessment at risk due to fall:Yes unsteady gait Kristen Gonzalez MA August 13, 2022 The subjective information, including chief complaint, past medical history and review of sy (more content not included)...[facility]06[facility] History of Present illness Narrative* Jordan Ortega, - 08/13/2022 10:30 AM EDT [facility] Initial Evaluation August 13, 2022 This appointment was requested by Dr Blas for my medical opinion regarding the evaluation and management of the patient's Altagracia Dinesh GonzalezConway problems, and my final recommendations will be communicatedto the requesting health care provider by way of the shared medical record for internal providers or letter via the Sleep Number Postal Service for external providers. SUBJECTIVE: Altagracia Conway a 66 year old [facility], accompanied by self only, was referred by Dr Blas for an initial evaluation for neuropathy of bilateral hands and feet. The pain is located in the bilateral hand and foot Distribution: bilateral feet pain is greater Started 2 years ago after chemo treatments (Pancreatic CA) and symptoms have been worsening. Characterized as burning, numbness, and tingling Currently the pain is a rated at a 9 on a scale of 0-10. Worst pain score is rated at 10 on a scale of 0-10. Best pain score is rated at 4 on a scale of 0-10. Aggravated by sitting and lying down. Mitigated by walking. Current treatments and response: Lyrica 150 mg once daily Response to previous treatments: None Alcohol Abuse - No Drug Abuse - No Current Anticoagulant Therapy: No Sleep Disturbance: Yes: Difficulty falling asleep. and Difficulty staying asleep. No past medical history on file. PAST SURGICAL HISTORY Procedure Laterality Date REMV CATARACT EXTRACAP,INSERT LENS 11/04/09 Performed by MARK BROWN at [facility] REMV CATARACT EXTRACAP,INSERT LENS 11/11/09 Performed by MARK BROWN at [facility] Social History Tobacco Use Smoking status: Every Day Packs/day: 0.50 Years: 30.00 Pack years: 15.00 Types: Cigarettes Substance Use Topics Alcohol use: Yes No family history on file. ALLERGIES Allergen Reactions Pollen runny itchy eyes and nose Current Outpatient Medications Medication Sig metFORMIN (GLUCOPHAGE) 1,000 mg tablet Take 2 tablets by mouth once daily. ARIPiprazole (ABILIFY) 2 mg tablet Take 2 mg by mouth once daily. FLUoxetine HCl (PROZAC) 40 mg capsule Take 40 mg by mouth once daily. budesonide-formoterol (SYMBICORT) 160-4.5 mcg/actuation inhaler Inhale 2 Puffs as instructed twice daily. liraglutide (VICTOZA 2-CATALINA) 0.6 mg/0.1 mL (18 mg/3 mL) pnij Inject 1.2 mg subcutaneously twice daily. albuterol HFA (PROVENTIL HFA, VENTOLIN HFA) 90 mcg/actuation inhaler Inhale 2 Puffs as instructed every 4 hours as needed for Wheezing/Shortness of Breath. lisinopril(PRINIVIL 20 MG TAB) Take one(1) tablet daily. atorvastatin calcium(LIPITOR 10 MG TAB) Take one(1) tablet daily. lorazepam(ATIVAN 1 MG TAB) three tabs before bed aspirin(ECOTRIN LOW STRENGTH 81 MG TAB) Take one (1) tablet daily. No current facility-administered medications for this visit. Review of Symptoms: GENERAL:No weight loss, malaise or fevers., SEE HPI HEENT:Negative for frequent or significant headaches, No changes in hearing or vision, no nose bleeds or other nasal problems NECK:Negative for lumps, goiter, pain and significant neck swelling RESPIRATORY: Negative for cough, wheezing or shortness of breath. CARDIOVASCULAR: Negative for chest pain, leg swelling and palpitations GASTROINTESTINAL: Negative for abdominal discomfort, blood in stools or black stools or change in bowel habits GENITOURINARY: No history of dysuria, frequency or incontinence BELLSTAFF: Negative for abnormal vaginal bleeding, abnormal vaginal discharge MUSCULOSKELETAL:bilateral hand a feet NEUROLOGIC:Negative for focal numbness or weakness, headaches and dizziness or syncope. SKIN:Negative for lesions, rash, and itching. PSYCHIATRIC: Negative for sleep disturbance, mood disorder and recent psychosocial stressors. HEMATOLOGIC/LYMPHATIC/IMMUNOLOGIC:Negative for prolonged bleeding, bruising easily or swollen nodes. ENDOCRINE: Negative for cold or heat intolerance, polyuria, polydipsia and goiter. The remainder of the ROS was negative. PREVIOUS TREATMENTS LASTING SIX WEEKS IN THE LAST SIX MONTHS Active conservative therapy lasting 6 weeks in the last six months (see below) 1. Physical therapy: No 2. Home exercise program after PT: No 3. Occupational therapy: No 4. A physician supervised home exercise program (HEP): No 5. Camp Director: No Passive conservative therapy lasting 6 weeks in the last six months (see below) 1. Medical devises: No 2. Acupuncture: No 3. Tens unit: No 4. Prescription pain medication: No 5. NSAIDS: No Do you feel safe at home? Yes Risk assessment at risk due to fall:Yes unsteady gait Kristen Gonzalez MA August 13, 2022 The subjective information, including chief complaint, past medical history and review of systems, was explored in detail with the patient and edited as needed and is complete. Jordan Ortega DO August 13, 2022 Physical Examination: Pulse 80 Ht 6' 2 (1.88m) Wt 245 lb (111.1kg) SpO2 95% BMI 31.44 kg/(m^2). General:well appearing, alert, and in no acute distress Skin: skin color, texture, turgor normal, no rashes or lesions HEENT: normocephalic, atraumatic, sclera non-icteric Cardiovascular: Radial pulses intact and equal Lungs: Respirations even and non-labored. Musculoskeletal: Neck: Supple; good ROM. Back: No pain on palpation of the lumbar spine. Full ROM without reproducible pain. Straight leg raising test negative bilaterally. Neurological: Mental Status: alert and oriented x 3 Cranial Nerves: Not examined Reflexes: Deep tendon reflexes are 2+ all throughout. Motor Strength: Motor strength and tone are 5/5 all throughout. Sensory: Sensation was intact to light touch all throughout. Gait: Normal. OARRS website checked and validated. All prescriptions have been APPROPRIATELY filled. No suspicious activity was identified. - August 13, 2022 by Jordan Ortega DO HPI & ASSESSMENT: Altagracia Conway is a 66 year old male with history of Pancreatic CA, S/P pancreatectomy and chemotherapy, he developed bilateral hand and foot pain. His feet pain is >>> hand pain after chemotherapy and symptoms have been worsening. He stated that his feet pain started 5 years before the chemotherapy but aggravated after he had chemotherapy. He describes his pain as constant burning, numbness, and tingling pain. Currently the pain is a rated at a 9 on a scale of 0-10. Worst pain score is rated at 10 on a scale of 0-10. Best pain score is rated at 4 on a scale of 0-10. He tried lyrica up to 150 mg twice daily, did not get therapeutic relief, weaning off lyrica currently. He had tried Gabapentin and cymbalta, both did not help. There was no EMG done. Physical exam was unremarkable Highly likely he has underlying diabetic neuropathy that was aggravated by chemotherapy. He failed membrane stabilizers lyrica and gabapentin, failed cymbalta, SCS would be reasonable approach to help with his feet pain. Plan as outlined below D/W patient in details and patient is in agreement. (E11.42, Z79.4) Type 2 diabetes mellitus with diabetic polyneuropathy, with long-term current use of insulin (HCC) (primary encounter diagnosis) (G62.0, T45.1X5A) Chemotherapy-induced neuropathy (HCC) (M79.671, M79.672) Bilateral foot pain (M79.641, M79.642) Bilateral hand pain PLAN: 1) Consult psychology for SCS evaluation 2) Will proceed with SCS trial for feet pain and consider permanent implantation based on the outcome 3) RTC for trial if he passes psych eval, The above plan and management options were discussed at length with patient. Patient is in agreement with the above and verbalized understanding. Thank you Dr Blas for allowing me to participate in Altagracia Conway's care. I spent a total of 45 minutes on the date of the service which included preparing to see the patient, [id number]-tugy patient care, completing clinical documentation, performing a medically appropriate examination, counseling and educating the patient/family/caregiver, ordering medications, tests, or p rocedures, and communicating with other HCPs (not separately reported). Jordan Ortega DO August 13, 2022 [facility]* Encounter Date Diagnosis Assessment Notes Treatment Notes Treatment Clinical Notes Jun, Chronic kidney disea se, stage 3b (ICD-10 - N18.32) Thanks for referring Mr. Conway to our office for an evaluation and management of CKD. As you know he has a longstanding DM with HTN and likely has a CKD as a result of these comorbidities. His baseline serum creatinine is around 1.5 to 2 mg/dL. I discussed with the importance of good DM and HTN control to surround the progression of CKD. I have ordered a UA and UPCR to evaluate for hematuria and proteinuria. He had CT abdomen pelvis done in May, which showed No enhancing renal mass or hydronephrosis . Punctate stone left kidney. Jun, Diabetes mellitus wi th chronic kidney disease (ICD-10 - E11.22) Continue to follow-up with Dr. Dockery for DM management. I have explained to him that he may benefit with the SGLT 2 inhibitors including Farxiga Jardiance or Invokana. He can discuss with her about it. I will not prescribe Kerendia for now but will consider it in future. Jun, Hyponatremia (ICD-10 - E87.1) He has a chronic hyponatremia likely due to the liver cirrhosis. His serum sodium is within the acceptable range. Advised fluid restriction 50 ounces a day. Jun, Anemia of renal dise ase (ICD-10 - D63.1) Continue to follow with hematology. Jun, Secondary hyperparathyroidism (ICD-10 - N25.81) Calcium is within normal limit. We will check PTH and vitamin D. [employer] Other 03-09-2023 Progress note Author Margaret Delgado [facility] May 17, 2022 6:42pm Note Date/Time May 17, 2022 10:5 6am [facility] [place] [address] Hem/Onc Follow Up Note - OP Signed Patient: Altagracia Conway MR#: [id number] : 1955 Acct:[id number] Age/Sex: 66 / M Type: REG RCR Copies to: DO Nasim Allen MD~ Subjective Date/Time of Service: Date of Service: 05/17/2022 Time of Service: 10:43 Chief Complaint: Patient is here for a 2 month follow up for pancreatic cancer, has labs for review and voices no concerns. HPI: 05/17/2022: Altagracia is here for 3 month followup exam, lab and imaging review. No significant abdominal pain or distention. Bowel habits are stable, no melena orhematochezia and stable weight. He does have ecchymosis over the face due to fall at home and dizziness. Labs are remarkable for blood glucose of 44 and 67 on labs within the past week. He is taking blood sugars twice daily (was 240 this am) and did not check blood sugar when he fell. I advised him to f/u with Dr. Dockery to adjust his diabetes regimen. If sugars are stable, consider holter monitor for dizziness. Tumor marker Ca 19-9 normal and no evidence of recurrence on CT Chest, Abdomen, and Pelvis. Stable neuropathy on Lyrica. Now that he is over 2 years from surgery, ok to extend followup with labs CBC, CMP, and CA 19-9 with exam in 6 months and defer restaging imaging to one year, sooner prn. Moderate complexity 35 minute followup to review labs, imaging, exam, coordinate f/u for fall/hypoglycemia. 02/15/2022: Altagracia is here for interval 3 month follow up. He continues to have these persistent, but infrequent episodes of spasm like pain in the mid abdomen/epigastric area. The pain has been present since her surgery and has not worsened in that time. He denies any changes in bowel habits, no significant diarrhea/constipation, fatigue, weight loss or new bony pain. Appetite and weight are stable. Stable neuropathy on Lyrica. Denies chest pain, cough, shortness of breath or dyspnea on exertion, no abdominal distention. He saw Dr. Shaikh for add on visit in December 2021 due to concerning oral plaque/oral lesion. He was referred to oral surgeon but patient did not keep appointment duethe surgeon not taking his insurance. Since that time, the lesion has since resolved - reports he has white spots that come and go over the years. He is acurrent, everyday smoker. 11/15/2021: 3 month followup for review of tumor markers and restaging CT. Denies chest or abdominal pain, distension, nausea/emesis, or weight loss. CA 19-9 in normal range 21. Restaging CT CAP without evidence of recurrence. Now 2 years from Whipple procedure. July f/u in 3 months with CBC, CMP, tumor markerCA 19-9 and exam only. Defer next imaging to 6 months unless new symptoms or rising tumor marker. Low complexity 25 min followup visit. 08/11/2021: 6 week followup--07/27/2021 CT scan at [facility] was concerning for recurrence (nonspecific mesenteric stranding) therefore he was sent for PET/CT andwe are reviewing this today. No change in medical history--denies abdominal pain or distension, mild decrease of stool frequency (now 2-3 times daily) without nausea/emesis and stable weight. PET/CT shows no suspicious uptake and normal CA 19-9 tumor marker 14. No recurrence now 21 months from curative surgery and 12 months from completion of adjuvant therapy. Next f/u [address] CAP and exam/CA 19-9. 06/19/2021: Altagracia is here for routine follow up on surveillance for history of resected T2N0 pancreatic cancer. Clinically, he is stable. He had PFT and EGD done since his last visit to assess his complaints of intermittent epigastric pain and abdominal cramping. On his last CT scan dated 05/04/2021 there was mention of mild wall thickening of proximal small bowel of undetermined significance. He was referred to gastroenterology and underwent EGD on 05/30/2021 with essentially normal findings. The patient was started on dicyclomine 4 times daily and has follow-up with GI in the next month. He reports these episodes as intermittent periods of cramping with no associated diarrhea or obvious evidence of blood in the stool. He reports that he goes several days, even up to a week and does not have any issues with the cramping. Presently, the patient is doing well, reports normal appetite. He has gained approximately 4-5 pounds since his last visit. Overall, no other areas of new pain or acute changes. His last CA 19?9 was normal. 02/22/2021: SUZY Sands attempted to contact Altagracia with CT results but could not reach him after multiple attempts. When he was finally reached, he reported about one week history of recurrent epigastric pain which lasts about 5minutes and takes away my breath . Not associated with eating or at a certain time of day. No change in urine or stool frequency and nausea stable. His CT CAP showed no evidence of metastatic disease. I sent labs to determine if he has worsening LFTs or pancreatitis. If unremarkable, he already has an appointment with GI in March--we will try to have him seen sooner for EGD if possible. Until then he is prescribed Tramadol 50mg po q6h prn (#60, RF0). He may f/u as previously scheduled in 04/2021, sooner prn. 01/26/2021: Altagracia presents for routine 3 month followup for T2N0M0 resected pancreatic cancer to review symptoms and labs (tumor markers). He is noted on laboratories to have slight rise in his CA 19-9 from 26 ---> 40. CBC is relatively unremarkable, with improving anemia. CMP reveals worsening of baseline creatinine and GFR (GFR= 47), normal electrolytes and calcium. He has mild elevation of AST (55) and increased Alkaline phosphate (360) with normal bilirubin. He reports that his PCP has referred him to a buffing machine operator semiautomatic and he hasan upcoming appt in March 2021. 10/19/2020: One month followup to review restaging CT Chest Abdomen and Pelvis with tumor markers after completing all 12 cycles of FOLFIRINOX. Has numbness of bilateral hands all the time but this is not painful for him. No further suicidal ideation and has scheduled followup with his psychiatrist in November. No abdominal pain and regaining weight. Still has bedbug infestation--taking precautions for visits but no visualized bugs on exam today. Reviewed normal tumor marker CA 19-[address] without evidence of recurrence. Continue port flushes every 6 weeks. Next f/u for symptom review and tumor marker in 3 months, sooner if new symptoms. 09/19/2020: Altagracia is here to resume cycle 11-day 1 FOLFIRINOX tomorrow. He has had a dose delay of about 2 weeks for cycle 11 due to hospitalization on 1S 09/10-11/2020 for suicidal ideation. He reported feeling overwhelmed due to multiple psychosocial stressors including his physical illness with difficulty sleeping and depressed mood. He had increased dose of Remeron to 22.5 mg nightly, Effexor added for depression titrating up to 112.5 mg daily, and lorazepam was changed to Klonopin 1 mg 3 times daily. He was deemed safe for discharge home he notes that he feels much improved. He was diagnosed with bedbug infestation last month and we have performed room cleaning precautions. No current pruritusand there was chemotherapy related fatigue and mild peripheral neuropathy has been improved since he had his 2-week delay in therapy. He denies any current dyspnea with exertion. It feels stable to resume his 11th cycle (last 2 cycles)of FOLFIRINOX therapy tomorrow. I will send tumor markers CA 19-9 and coordinate follow-up CT chest abdomen pelvis for restaging in about 1 month prior to his next follow-up. 07/25/2020: Altagracia resumed FOLFIRINOX cycle 7 one week ago at 80% dose of all meds. He notes persistent dyspnea and does not feel improved with albuterol metered dose inhalers. I offered to delay chemo or reduce dose further, but he fears recurrence and wants to proceed. He requested IV nausea meds and hydration today. I will contact Dr. Dockery and recommend increasing Ativan totwice daily with his Abilify and Cymbalta. His PFTs are consistent with asthma--reversible obstruction. I'm adding budesonide (Pulmcort) twice daily toAlbuterol MDIs. He cannot get an appointment with pulmonary medicine until 08 September. WBC 35,000--some of his anxiety may be due to growth factors. I will drop Zarxio next cycle and I will see him in 2 weeks after cycle 8. 07/13/2020: Altagracia is here for follow-up after delaying cycle 7 chemotherapy over the past week. He was due to be treated yesterday but has continued dyspnea with exertion and wishes to defer therapy another week. He was admitted overnight 1 week ago for his dyspnea and treated with antibiotics as well as acyclovir and nystatin swish and swallow for odynophagia which is slowly improving. He still reports that he has dyspnea with exertion and climbing stairs. On exam today he had some mild wheezing on the right and has not been using MDIs. I informed him that we will send for PFTs with lung volumes and DLCO as well as a trial of albuterol nebulizer in treatment room today and MDIs at home. He also has mild hypokalemia and hypomagnesemia. If he continues to improve steadily we may treat with overall 80% dose of all meds for FOLFIRINOX and I will see him in follow-up in 2 weeks. 07/06/2020: Altagracia would have been scheduled for cycle 7-day 1 on Tuesday 07/04, butthis was held when he presented with significant dyspnea on exertion and was sent to the emergency department. CT PE protocol was negative for pulmonary embolism and oxygen saturation was 98% on room air but he had significant tachypnea. He had no associated cough but reported a mouth sore on the left side of his tongue and severe odynophagia (10/10 pain). He has been using topical viscous lidocaine which is not resolved his symptoms. He was admitted and bloodculture through his port showed a presumptive coagulase-negative staph through the port and no growth from peripheral culture through the wrist. Also had negative nasopharyngeal panel, negative coronavirus, and negative urine culture. He still has significant tachypnea with respiratory rate about 25 and heart rate 116. Saturation is 99% on room air. --We will continue to hold his chemotherapy. I am treating him with 1 L fluid normal saline, 2 mg IV morphine and will repeat every 15 to 20 minutes until pain less than 4 out of 10, and start vancomycin for 2-week course with dosing per pharmacy. This can be given as an outpatient. He does still have significant leukocytosis which could be due to prior Neulasta and received 1 unit of packed red blood cells yesterday for hospital discharge for hemoglobin 7.7. I will reassess him in 1 week to determine if he can resume chemotherapy. I am also prescribing acyclovir and Diflucan elixirs for his odynophagia. We will put in a palliative medicine consult. 06/20/2020: Altagracia is here for cycle 6-day 1 adjuvant FOLFIRINOX. He has persistent nausea without emesis (added compazine last week), poor appetite, andgeneralized weakness. He lost 4kg in the past 2 weeks. Also notes increased numbness of hands and feet. Potassium (2.7) and Magnesium (1.4) returned low today--hydrating with 1L Normal saline with 40meq KCl IV and 4g MgSO4 IV today. Send home with oral KCl 20meq bid. We will recheck K and Mg Saturday and dose reduce Oxaliplatin by 20% for next cycle. If continued nausea and fatigue--ok to delay therapy one week. Restaging CT without evidence of recurrence 06/15/2020. F/u 1 week if dose delay, 2 weeks if treated Saturday. 05/25/2020: Altagracia is here for cycle 4-day 1 adjuvant FOLFIRINOX. He notes that he has intermittent nausea but is well controlled on his current medications. Henotes early satiety and was recently given additional boost to use once daily. He has lost about 4 kg over the last month. 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 Fatigue is stable and he denies abdominal or back pain. Renal function has proved since starting therapy. He has moderate anemia but does not require transfusion. At this point will continue full dose FOLFIRINOX and restage with CT chest abdomen pelvis prior to cycle 6 as well as CA 19-9. Next follow-up in 1 month with labs. 04/25/2020: Altagracia commenced adjuvant FOLFIRINOX C1D1 on 04/12/2020--tolerated well. Denies fatigue, nausea, constipation/diarrhea, abdominal pain or cold-induced neuropathy. F/u labs unremarkable. He wishes to move infusion to if possible for cycle 2 due to an important business meeting tomorrow (will have to set up [facility] inpatient duckworth eval to d/c 5FU pump Saturday). Otherwise no concerns--f/u with me in one month for tumor markers and exam--continue 100% dose. PREVIOUS HISTORY: This is a now 66-year-old male who originally presented to [facility] with nausea, vomiting, diarrhea in October 2019 and was found to have elevated liver enzymes with total bilirubin 12.7, alkaline phosphatase 408, ALT 247, AST 197, lipase 161, white blood cell count of thousand 100, hemoglobin 12.9, platelets 139,000. INR 1.2 and hemoglobin A1c 9.1. MRCP showed extensiveextra and intrahepatic biliary dilatation up to 1.5 cm with a dilated pancreaticduct at 5 mm without discrete mass. ERCP 11/10/[address] Weaver revealed 2 mm stricture in the common bile duct, status post sphincterotomy, brushings, and placement of plastic stent. He was referred for EUS/ERCP on 12/07/[address] Margaret Malcolm with fine-needle biopsy showing atypical cells present, suspicious for carcinoma. At that time the biliary stent was partially occluded and there was a single severe biliary stricture in the lower third of the main bile duct (malignant appearing) status post dilation and brushing also showing atypical ductal cells with another placement of plastic pancreatic stent. His care was further delayed about 1 month when he was unable to be reached by phone to discuss further plan of care. He was seen by gastroenterology at [facility] in late December complaining of increased epigastric pain. He also was noted to have about 20 pounds of weight loss and worsening diabetes. January 10 he had repeat endoscopic ultrasound with a masslike region in the pancreatic head and again brushings showed atypical cells with fine-needle aspiration again with atypical cells suspicious for cancer. CT abdomen pelvis at [facility] 01/22/2020 revealed no distant metastatic disease. IMPRESSION: 1. Pancreatic head mass measuring 2.6 x 2.2 x 3.0 cm, with 180 degree abutment and contour abnormality of the patent SMV, with increasing pancreatic ductal dilatation, highly concerning for pancreatic adenocarcinoma. The superior mesenteric artery and celiac artery are not involved. Malignant involvement of a 9 mm peripancreatic lymph node is not excluded. 2. Status post common bile duct stent placement. Air within the stent, left greater than right pneumobilia, and air within the gallbladder all suggest stent patency. 3. Enlarged prostate. Please correlate with PSA. Due to nondiagnostic biopsies and resectable disease, he consented to upfront Whipple procedure (pancreatoduodenectomy) performed 02/15/2020. He tolerated surgery well and has returned to eating a normal diet. Diabetes is well controlled on his current regimen with insulin managed by Dr. Tiki Dockery at [facility]. 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 She does have some peripheral neuropathy from diabetes but this does not limit his activity. Given high risk features of perineural and lymphovascular invasion as well as anaplastic poorly differentiated histology, we discussed FOLFIRINOX adjuvant therapy which may commence after placement of infusion port in the next 1 to 2 weeks. Today we reviewed chemotherapy counseling for FOLFIRINOX (5-fluorouracil, leucovorin, irinotecan, oxaliplatin every 2 weeks for 12 cycles). Goal of therapy is curative. Common toxicities were reviewed to include myelosuppression, fatigue, nausea, vomiting, constipation, diarrhea, mouth sores, and alopecia. Other toxicities may include pneumonitis, cold-induced neuropathy, cumulative neuropathy, secondary malignancies, hepatic and renal toxicities. The patient signed informed consent and will follow-up as directed. Of note he does have a history of chronic hepatitis C status post treatment withEpclusa with complete response. He reports that his mother had pancreatic cancer and in her 60s as well as a father with pancreatic cancer who at age 82. Brother had lung cancer but no other family history of malignancies. He is an active smoker 1/2 pack/day since age 14 and continues actively smoking. He denies alcohol use quitting about 7 years ago when he was diagnosedwith hepatitis C. 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 DIAGNOSIS: 1. 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 2. Diabetes mellitus, insulin requiring with mild peripheral neuropathy 3. History of hepatitis C status post curative Epclusa therapy around 2013. 4. Family history of mother and father with pancreatic cancer 5. History of anxiety disorder and depression 6. Ongoing tobacco use 7. Unintentional weight loss - Summary of Therapies Summary of Therapies: 1. Whipple's procedure/pancreaticoduodenectomy 02/15/2020. 2. FOLFIRINOX therapy commenced 04/12/2020. FOLFIRINOX: Day 1: Oxaliplatin 85mg/m2 IV over 2 hours; Irinotecan 180mg/m2 IVover 90 minutes; Leucovorin 400mg/m2 IV over 90 minutes; followed by Day 1: Fluorouracil 400mg/m2 IV push; followed by Days 1-2 Fluorouracil 2,400 mg/m2 IV continuous infusion over 46 hours. Repeat cycle every 2 weeks x 12 cycles. --cycle 6 06/22/2020--Will dose reduce oxaliplatin 20% for grade 3 nausea/grade 2neuropathy/renal insufficiency --Cycle 7 07/04/2020--on hold for intractable dyspnea and oral mucositis, 07/13/2020 continuing to hold cycle 7 for another week per patient request for ongoing dyspnea. --Resumed cycle 7 07/20/2020: 80% dose for all meds. He had another 20% dose reduction of oxaliplatin and irinotecan for cycle 10. He had 2-week delay of cycle 11 for psychiatric hospitalization. --Resuming cycle 11 09/20/2020: 60% dose oxaliplatin and irinotecan, 80% dose of 5-fluorouracil/leucovorin. -- Last cycle (12) 10/03/2020. ROS Details: All systems reviewed & no additional complaints except as documented Subjective/ROS - Narrative: CONSTITUTIONAL: No weight loss, fever, chills, weakness or fatigue. HEENT: Eyes: No visual loss, blurred vision, double vision or yellow sclerae. Ears, Nose, Throat: No hearing loss, epistaxis. SKIN: No rash or itching. CARDIOVASCULAR: No chest pain, chest pressure or chest discomfort. No palpitations or edema. RESPIRATORY: No shortness of breath, cough or hemoptysis. GASTROINTESTINAL: No dysphagia, nausea, vomiting or diarrhea. Intermittent episodes of abdominal pain; 1-2 episodes per week; mid epigastric area; lasts anywhere from 30 seconds - 3 mins; ongoing unchanged; denies melena, hematochezia. GENITOURINARY: No dysuria, urinary frequency or urgency. NEUROLOGICAL: No headache, dizziness, syncope, numbness or tingling in the extremities. MUSCULOSKELETAL: No muscle, back pain, joint pain or stiffness. HEMATOLOGIC: No bleeding or bruising other than due to fall yesterday. LYMPHATICS: No enlarged nodes. PSYCHIATRIC: No history of depression or anxiety. ENDOCRINOLOGIC: No reports of sweating, cold or heat intolerance. No polyuria orpolydipsia. + fall yesterday associated with hypoglycemia on labs. ALLERGIES: No history of asthma, hives, eczema or rhinitis. PMFSH - History Attestation statement: The following information was validated with the patient. Source: Old Records Reviewed - Medical History Medical History: Medical History (Last Reviewed 05/17/22 @ 18:26 by Margaret Delgado MD) Amputated toe of right foot Anxiety Blockage of a bile duct liver stents placed d/t blockage Depression Diabetes mellitus Family history of pancreatic cancer History of hepatitis C Hyperlipemia Hypertension Neuropathy Odynophagia Pancreatic cancer - Surgical History Surgical History: Surgical History (Last Reviewed 05/17/22 @ 18:26 by Margaret Delgado MD) History of cholecystectomy done at time of whipple History of gastrointestinal surgery whipple procedure 02/2020 - Family History Family History: Family History (Last Reviewed 05/17/22 @ 18:26 by Margaret Delgado MD) Father Pancreatic cancer Mother Pancreatic cancer - Social History Smoking Status: Current every day smoker Tobacco Type: cigarettes Substance Use Type: None Substance Abuse Comment: states I smoke marijuana every now and then Home Medications & Allergies Allergies No Known Allergies Allergy (Verified 05/17/22 10:40) Home Medications cholecalciferol (vitamin D3) 25 mcg (1,000 unit) tablet 50 mcg PO DAILY #30 tabs09/16/20 [Rx Confirmed 05/17/22] hydrochlorothiazide 25 mg tablet 25 mg PO DAILY 15 days #15 tabs 09/16/20 [Rx Confirmed 05/17/22] pregabalin 150 mg capsule 150 mg PO BID 06/19/21 [History Confirmed 05/17/22] amlodipine 5 mg tablet 5 mg PO DAILY 07/07/21 [History Confirmed 05/17/22] buspirone 30 mg tablet 30 mg PO BID 07/07/21 [History Confirmed 05/17/22] insulin degludec 100 unit/mL (3 mL) subcutaneous pen (Tresiba FlexTouch U-100 insulin) 18 unit subcut DAILY 07/07/21 [History Confirmed 05/17/22] insulin lispro 100 unit/mL subcutaneous pen (Humalog KwikPen (U-100) Insulin) 8 unit subcut TID 07/07/21 [History Confirmed 05/17/22] levomilnacipran 20 mg capsule,24 hr,extended release (Fetzima) 20 mg PO DAILY 07/07/21 [History Confirmed 05/17/22] lisinopril 5 mg tablet 5 mg PO DAILY 07/07/21 [History Confirmed 05/17/22] lorazepam 1 mg tablet (Ativan) 1 mg PO TID 07/07/21 [History Confirmed 05/17/22] heloey-asvrdwzd-yzzcqce 36,000-114,000-180,000 unit capsule,delay rel (Creon) 1 cap PO TID 11/15/21 [History Confirmed 05/17/22] mirtazapine 30 mg tablet 30 mg PO DAILY 11/15/21 [History Confirmed 05/17/22] fluconazole 100 mg tablet (Diflucan) 100 mg PO DAILY #11 tabs 02/15/22 [Rx Confirmed 05/17/22] Objective - Height/Weight Height/Weight: Height 6 ft 2 in Weight 110 kg BSA for Today's Weight 1.93 - Vital Signs Vital Signs: Reviewed BP 155/95 - Pain Tongue Pain Intensity: 0 Left Flank Pain Intensity: 10 - Distress Screening Distress Screen Results: RN Distress Screening Start: 04/11/20 13:45 Freq: Q30D Status: Active Protocol: Document 12/28/21 10:17 KB (Rec: 12/28/21 10:19 KB [id number]) Distress Screening Distress score of 4 or more discussed Yes with patient? Distress screening follow up: Raising 5 grandkids, increased anxiety. Upset about referral to oral surgeon, aware it is in process. Denies needs at this time. Physical Exam Narrative: GENERAL APPEARANCE: Well developed, well nourished, in no acute distress. SKIN: Inspection of the skin reveals no rashes, ulcerations or petechiae. HEENT: The sclerae were anicteric and conjunctivae were pink and moist. EOMI, PERRLA. The oral mucosa is moist and clear: there is no lesion or white exudative patches. NECK: Supple and symmetric. There was no thyroid enlargement, and no tenderness,or masses were felt. CHEST: Normal contour without any kyphoscoliosis. LUNGS: Normal breath sounds on auscultation without rales, rhonchi, or crackles. CARDIOVASCULAR: S1 and S2, regular rate and rhythm, no murmurs, gallops, rubs. ABDOMEN: Soft, nontender, bowel sounds normal. No hepatosplenomegaly. No mass palpated. LYMPH NODES: No lymphadenopathy was appreciated in the neck, axillae or groin. MUSCULOSKELETAL: Gait was normal. There was no tenderness or effusions noted. Muscle strength and tone were normal. EXTREMITIES: No cyanosis, clubbing or edema. NEUROLOGIC: Alert and oriented x 3. Normal affect. Gait was normal. Sensation totouch was normal. - ECOG Performance Status ECOG Score: 1 Results - Labs Labs: Diagram of Most Recent CBC and CMP 05/15/22 10:15 05/15/22 10:15 Labs - Last 7 Days 05/15/22 11:17: POC Glucose 67 05/15/22 10:15: CA 19-9 Antigen 22 05/15/22 10:15: Corrected WBC 10.5, Uncorrected WBC Count 10.5, RBC 3.91, Hgb 11.6 L, Hct 34.4 L, MCV 87.9, MCH 29.6, MCHC 33.7, RDW 14.1, Plt Count 201, MPV 9.0, Neut % (Auto) 54.8, Lymph % (Auto) 28.8, Alfalfa % (Auto) 8.0, Eos % (Auto) 7.4, Baso % (Auto) 1.0, Nucleat RBC Rel Count 0.1, Neut # (Auto) 5.8, Lymph # (Auto) 3.0, Alfalfa # (Auto) 0.8, Eos # (Auto) 0.8 H, Baso # (Auto) 0.1 05/15/22 10:15: PHA Creatinine Clear 63.10, Sodium 136, Potassium 4.7, Chloride 107, Carbon Dioxide 19.6 L, Anion Gap 14.1, BUN 47 H, Creatinine 1.52 H, Est GFR(CKD- EPI) 50.223, Glucose 44 L*, Calcium 9.5, Total Bilirubin 0.4, AST 48 H, ALT53, Alkaline Phosphatase 204 H, Total Protein 7.5, Albumin 3.9, Globulin 3.6, Albumin/Globulin Ratio 1.1 - Impressions CT CHEST, ABDOMEN AND PELVIS WITH INTRAVENOUS CONTRAST: CLINICAL HISTORY: Follow-up pancreatic cancer. Abdominal pain. COMPARISON: CT chest, abdomen and pelvis 11/14/2021 TECHNIQUE: TECHNIQUE: Spiral images were obtained through the chest, abdomen and pelvis following the administration of IV contrast. This CT exam was performed using one or more following dose reduction techniques: Automated exposure control, adjustment of the mA and/or kV according to patient size, or use of iterative reconstruction technique. FINDINGS: CT chest: Mediastinum:Right-sided port is in place. Thoracic aorta appears normal in caliber. Pulmonary trunk appears nondilated. No pleural effusion. No lymphadenopathy. The esophagus is grossly unremarkable. Lungs:Reticular changes. Mild right basilar atelectasis. No consolidation, pneumothorax or pleural effusion. Mild diffuse bronchial wall thickening. No suspicious nodule or mass. Soft tissues/Bones: Visualized soft tissues demonstrate no acute findings. Osseous structures demonstrate degenerative change. CT abdomen and pelvis: Organs:Patient is status post Whipple procedure. Liver portal vein, spleen, remaining pancreas and adrenal glands all appear unremarkable. No enhancing renal mass or hydronephrosis. Punctate stone left kidney. Abdominal aorta appears normal in caliber. GI: Stomach is grossly unremarkable. Small bowel appears nondilated. Appendix isnormal. No acute colonic abnormality. Pelvis: Urinary bladder and prostate gland appear unremarkable. Peritoneum/Retroperitoneum:No free air, free fluid or lymphadenopathy. Abd wall/Bones:Abdominal wall demonstrates no acute findings. Osseous structuresdemonstrate degenerative change. Questionable subacute left ninth and 10th rib fractures. CT/CT chest w con IMPRESSION: 1. No evidence of tumor recurrence or metastatic disease within the chest, abdomen or pelvis. 2. Questionable subacute left lower rib fractures, new since the prior study. Correlation with trauma history is recommended. Impression dictated by: Rey Dove Jr., D.OJohn05/15/2022 3:32 PM Assessment and Plan - TNM Staging Stagin02/15/2020: 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 (1) Primary cancer of head of pancreas Upfront Whipple procedure for resectable pancreas cancer (initial biopsies suspicious but nondiagnostic for malignancy). 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 Poor risk features and good performance status (although mild baseline diabetic neuropathy). He consented to FOLFIRINOXadjuvant therapy. General surgery referral for infusion port placement. 04/25/2020: No significant toxicities at followup visit (cycle 1 day 1 was 04/12/2020). We will continue 100% dose FOLFIRINOX and follow closely for hyperglycemia and neuropathy symptoms due to his baseline diabetic neuropathy. 05/25/2020: Patient has increased fatigue, early satiety, and weight loss. Adding Boost at least twice daily and encouraging use of Imodium and Zofran regularly. Okay for cycle 4 today with stable labs. Restaging CT chest abdomenpelvis will be scheduled prior to cycle 6 in 1 month I will see him at that time. 06/20/2020: Worsening fatigue, nausea, poor appetite, and weight loss. Worsening neuropathy. Decrease oxaliplatin by 20%, replete low potassium and magnesium. No evidence of recurrence on CT CAP. Reassess Saturday whether K andMg returned today normal and OK to resume FOLFIRINOX. F/u 1 week if dose delay,2 weeks if tx. 07/06/2020: Admitted 07/04/2020 for work-up of sudden onset tachypnea with normal oxygen saturation. CT PE protocol was negative for pulmonary embolism or infiltrate. Lactic acid was negative for sepsis and VBG showed respiratory alkalosis with metabolic acidosis. Blood cultures did show coagulase negative staph from infusion port but negative on peripheral culture. He has severe odynophagia and mouth sore. For now I am hydrating him with 1 L normal saline, holding chemotherapy until resolution of toxicities. We will start vancomycin 1.5 g daily (would calculate to 1 g twice daily but patient does not wish to return twice daily for infusions). We will reassess Saturday to see if he should continue 2 weeks of vancomycin. Also giving IV morphine 2 mg now and redose every 15 to 20 minutes until pain less than 4/10. Adding Diflucan elixir and acyclovir elixir for his odynophagia. Consult to palliative medicine for further titration of outpatient pain medication. Follow-up in 1 week to review symptoms and to determine if he is stable to resume adjuvant FOLFIRINOX therapy with likely 50% dose reduction of 5-FU leucovorin. 07/13/2020: Negative blood cultures and CT PE protocol negative for pulmonary embolism or infiltrate. His dyspnea persists despite levofloxacin as well as acyclovir and nystatin for his prior odynophagia. His pain control is stable. I am sending him for pulmonary evaluation with full PFTs and lung volumes with DLCO as well as trial of albuterol nebulizer with electrolyte repletion today and sending with Eladio HENDERSON. Follow-up with me in 2 weeks and we will consider resuming FOLFIRINOX at 80% dose overall of all drugs at his next follow-up if symptoms remain stable. Otherwise he may stop adjuvant therapy and continue observation only for resected pancreas cancer with anaplastic carcinoma. 07/25/2020: Resumed cycle 7 FOLFIRINOX at 80% dose of all meds--continued nausea, fatigue, and anxiety with subjective dyspnea. WBC 35,000 which may be increased response to Zarxio. No evidence of infection. PFTs consistent with asthma (will address below). Drop Zarxio with day 8 CBC and followup next cycle. Patient declines further dose reduction of FOLFIRINOX but will get Aloxi/Hydration today. 08/10/2020: Stable fatigue and nausea for cycle 7 FOLFIRINOX at 80% dose of all meds--continued nausea, fatigue, and anxiety with subjective dyspnea. WBC now 7000--dropped growth factors to see if this would relieve nausea and dyspnea. Pulmonary follow-up later this month and restaging CT scans in early September. Continue current dose for remaining cycles of FOLFIRINOX. 09/19/2020: 2-week delay for cycle 11 FOLFIRINOX with now 60% dose of oxaliplatinand irinotecan, 80% for all other medications. Stable grade 1 peripheral neuropathy. Hospitalized for suicidal ideation 09/10-11/2020. Symptoms now with improved control since increasing Remeron, adding Effexor, and changing Ativan to Klonopin. He has ongoing follow-up with psychiatry and dyspnea is improved. 10/19/2020: Completed 12 cycle FOLFIRINOX with last cycle 10/03/2020. CA 19-[address] CAP without evidence of recurrence. Followup neuropathy on current antidepressant medications and f/u with palliative medicine (should improve off chemotherapy) Next follow-up with me in 3 months after completion of FOLFIRINOX for exam and restaging tumor marker CA 19-9, sooner prn. We will review survivorship template at next visit. 01/26/2021: Altagracia is seen for routine 3-month follow-up for resected pancreas cancer (T2N0); s/p completion of 12 cycles FOLFIRINOX adjuvant chemotherapy, which concluded on 10/03/2020. Post treatment CT scans showed no evidence of recurrence in October 2020. He is here today for physical exam, ROS, and review of labs (CBC,CMP and CA 19-9). Clinically the patient looks well; he has gained > 30 pounds since his last visit 3 months ago and reports no new constitutional symptoms. Appetite has improved significantly; as well as, taste and fatigue. Hespecifically denies any issues with headaches, fever/chills, recent/recurrent infections, night sweats, weight loss, chest pain, cough, shortness of breath, nausea/vomiting, abdominal pain, diarrhea/constipation, new bony pain, skin rash, lymphadenopathy or lower extremity edema. His only complaint today is continued peripheral neuropathy (hands/feet) - Grade 1 (had peripheral neuropathy at baseline due to long standing diabetes). He is currently taking Gabapentin 400 mg daily with no improvement. --He is noted on laboratories to have slight rise in his CA 19-9 from 26 ---> 40. CBC is relatively unremarkable, with improving anemia. CMP reveals worseningof baseline creatinine and GFR (GFR= 47), normal electrolytes and calcium. He has mild elevation of AST (55) and increased Alkaline phosphate (360) with normal bilirubin. He reports that his PCP has referred him to a buffing machine operator semiautomatic andhe has an upcoming appt in March 2021. 02/22/2021: Due to rising CA 19-9 level, SUZY Barrios ordered CT chest, abdomen/pelvis. She was unable to reach him for phone followup, but when he wascontacted he reported recurrent brief episodes of unexplained epigastric pain. No progression on restaging images, but he will see gastroenterology for EGD. Tramadol 50mg po q6h prn for pain. I sent CBC, CMP, amylase, lipase and will contact him with results. 04/26/2021: Midchest pain--pending stress test and EGD for further evaluation. 05/05/2021: Continued mid chest pain with negative stress test. Contacted GI forboth EGD and push enteroscopy due to small bowel wall thickening on restaging CTchest and pelvis. Otherwise no evidence of recurrence of pancreatic cancer and tumor marker is still normal. We will continue every 3-month surveillance with exam and labs and defer imaging unless rising CEA or new symptoms. Peripheral neuropathy is now well controlled on current regimen but he is following with palliative medicine, consider acupuncture. 06/19/2021: Intermittent, transient episodes of upper abdominal pain and cramping; with some residual numbness ; episodes are very infrequent?he sometimes can go an entire week without having an episode. He has no associateddiarrhea. He has since had normal EGD and relatively normal PFTs following his last appointment. His last CA 19?9 was within normal range. There was no evidence of recurrence on EGD, as last CT scan dated 05/04/2021 showed mild thickening in the small intestine of indeterminate etiology. -We will continue routine follow-up; surveillance for pancreatic cancer. The patient has no other changes in ROS and no new areas of pain. Both his appetiteand weight are stable, of note he has gained approximately 4-5 pounds since his last visit. 08/11/2021: CT abdomen/pelvis at [facility] in mid July showed mesenteric stranding suspicious for recurrence. PET/CT from 08/09/2021 without FDG avidity and CA 19-9normal (14). Images/reports reviewed with patient--negative for recurrence. -Continue every 3 month follow-up with CBC, CMP and CA 19?9; with CT chest/abdomen and pelvis with IV and p.o. contrast prior to next follow-up. Modcomplexity 25 min. 11/15/2021: Restaging CT Chest Abdomen Pelvis without recurrence. 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 F/u CBC, CMP and CA 19-9 only in [address] exam. Defer [address] Chest/Abdomen/Pelvis to 6 months, sooner as needed. 02/15/2022: Altagracia is here for interval 3 month follow up. He continues to have these persistent, but infrequent episodes of spasm like pain in the mid abdomen/epigastric area. The pain has been present since her surgery and has not worsened in that time. He denies any changes in bowel habits, no significant diarrhea/constipation, fatigue, weight loss or new bony pain. Appetite and weight are stable. Stable neuropathy on Lyrica. Denies chest pain, cough, shortness of breath or dyspnea on exertion, no abdominal distention. - patient is concerned about these episode of intermittent spasm like pain in the epigastric area. They are very infrequent and last anywhere from 30 seconds - 3 minutes. Do not seem to be associated with anything in particular. Etiology unclear; although sounds spasm like or neuropathic in nature. No evidence of progression on recent imaging, stable symptoms and stable laboratories with mostrecent CA 19-9 of 28. - previous stress test work up. Encouraged patient to document episodes and timing of episodes to review at next follow up. - he is compliant with Creon; could be post surgical related. - continue every 3 month follow up. Next follow up with imaging CT chest, abdomen/pelvis, along with routine labs and CA 19-9. 05/17/2022: Altagracia felt lightheaded and fell at home yesterday. Noted to have hypoglycemia on labs prior to CT CAP showing no evidence of recurrence of pancreas cancer. CA 19-9 still normal. Setting up f/u with primary care to adjust insulin dosing for glucose 44 on labs. F/u for pancreas cancer now extended to every 6 months now that he is over 2 [address] procedure[address] may be extended to annual--sooner if new symptoms or rising tumor markers. Moderate complexity 35 minute f/u visit. (2) Hypoglycemic episode in patient with diabetes mellitus Notified Dr. Dockery of lab results showing hypoglycemia and fall at home. Consider eligibility for NEXCOM monitoring and potential decrease in insulin dosing. (3) Diabetes mellitus with neuropathy Qualifiers: Diabetes mellitus type: type 2 Diabetes mellitus emt intermediate insulin use: unspecified emt intermediate insulin use status Qualified Code(s): E11.40 - Type 2 diabetes mellitus with diabetic neuropathy, unspecified Followed by Dr. Dockery--notifying of hypoglycemia with fall and adjustment of insulin. 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 Stable, chronic neuropathy-on max dose Lyrica 225 mg p.o. twice daily?prescribedby Dr. Dockery; is no longer following palliative medicine on a regular basis. --Address hypoglycemic episode 05/16/[address] Dockery as noted above. (5) Cancer-related pain Recent recurrent epigastric pain/recent chest pain as noted above--completed restaging imaging CT CAP (05/04/2021); negative stress test; and mild emphysema on PFT. Completed EGD with gastroenterology as noted above, on 05/30/2021 with normal findings and no obvious evidence of recurrence. No pain on 11/15/2021 examand no recurrence by imaging. Defer next imaging to 6 months. - 05/17/2022: no new issues. Continue Lyrica for neuropathy (6) Abnormal kidney function Creatinine stable somewhat stable; 1.52-- follow up in 6 months. (7) Major depressive disorder Qualifiers: Major depression episode severity: moderate The patient was discharged home in early September after hospitalization for depression and suicidal ideation. He reports symptoms are much improved and anxiety is better since change of medications. He felt hopeless with anhedonia and passive suicidal ideation but no hallucinations. He now has no active suicidal ideation and had not had prior psychiatric hospitalizations, suicide attempts, or family history of this. No use of alcohol or illicit drugs. Following with primary care Dr. Tiki Dockery who is primary prescriber of pain medication. He now has follow-up with Dr. Bee of psychiatry as well. We will continue to follow closely after completion of adjuvant chemotherapy. Denies SI/HI. (8) Asthma Qualifiers: Asthma severity: moderate Asthma persistence: persistent Negative evaluation for PE, treated for coag negative staph infection therefore he completed a course of levofloxacin. He is not hypoxic but did have some mildwheezing on exam today persistent dyspnea with exertion. He did not feel improved after albuterol MDI use at home (although only using about once daily). PFTs show reversible obstruction. Continue albuterol MDI 4 times daily and added Pulmocort MDI twice daily. Following with pulmonary. (9) Oral leukoplakia Patient showed me the lesion which is on the left lateral edge of the tongue. It looks grossly like oral leukoplakia. We will refer him to oral surgeon for assessment and biopsy. I instructed him to keep his previously scheduled appointment as surveillance on his pancreatic cancer He saw Dr. Shaikh for add on visit in December 2021 due to concerning oral plaque/oral lesion. He was referred to oral surgeon but patient did not keep appointment due the surgeon not taking his insurance. Since that time, the lesion has since resolved - reports he has white spots that come and go over the years. He is a current, everyday smoker. - no significant findings on exam today - reassess at next follow up visit. - Chemo Plan Chemo Plan (Dose, Rate, Freq): Completed adjuvant FOLFOX therapy in late September 2020. Number of Cycles: 12 Goal of Treatment: Curative - Time with Patient Time Spent with Patient (Follow Up Visit): 35 minutes - Mod complexity f/u exam,tumor marker, restaging CT, address fall and hypoglycemia Coordination of Care & Counseling Time: Greater than 50% of time spent with patient was for coordination of care (as documented) and [id number] counseling of patient and/or family. Dictated By: Margaret Delgado MD DD/ [id number] Signed By: <Electronically signed by MD Margaret Delgado> 05/17/22 [id number] [facility] Work Phone: [phone] 391-716701-18-2023 NoteHNO ID: [id number] Author: Alexander Velazquez APRN.LEATHER TACKER Service: ? Author Type: Nurse Specialist Type: Progress Notes Filed: 03/29/2022 1:19 PM Note Text: [facility] USP NOTE NAME: GURMEET CONWAY NO.: [id number] DATE OF SERVICE: 03/28/2022 [facility] DATE OF : 1955 REASON FOR VISIT: The patient is a resident of [facility]. This is a discharge visit for diabetes, hypertension, and other medical concerns. The patient was admitted to [facility] from [facility] after having a syncopal episode with injury. The patient had a short stay at [facility]. The patient is demanding to leave today. The patient states he has family issues to take care of plus he wants to have his family doctor work on his medications. I did express to the patient that the concerns of his diabetes, the patient has been running blood sugars 200 to 300s and patient has been noted to be hypertensive. The patient did have anxiety and was treated with low-dose Ativan. The patient states anxiety is lessened. The patient states at this time I did suggest that the patient stay so we could work on his medication. The patient does refuse this and states no matter what he is leaving. DATE OF ADMISSION: March 22, 2022. DATE OF DISCHARGE: March 28, 2022. MEDICATIONS: 1. Hydrochlorothiazide 25 mg daily for hypertension. 2. Atorvastatin 40 mg 1 tab at bedtime for hyperlipidemia. 3. Mirtazapine 30 mg 1 tablet at bedtime for depression. 4. Lyrica 150 mg 1 tab 2 times a day for neuropathy. 5. Glargine 20 units twice daily for diabetes. 6. Buspirone 30 mg 1 tab daily for anxiety. 7. Fetzima 1 tablet at bedtime for depression. 8. Losartan 50 mg 2 tabs daily for hypertension. 9. Flomax 0.4 mg 1 tab daily at bedtime for BPH. 10. MiraLax 17 g 1 scoop at bedtime for constipation. 11. Aspirin 81 mg 1 tab daily for heart health. 12. Pantoprazole delayed release 40 mg 1 tab daily for GERD. 13. Metoprolol tartrate 25 mg 1 tab 2 times daily for hypertension. The patient also has p.r.n. medications, Ativan, acetaminophen, various laxatives, Percocet, and Humalog per sliding scale. LAB DATA: Reviewed March 26, 2022, basic metabolic panel, abnormals, glucose 172, sodium 134, BUN 53, creatinine 2.2, BUN and creatinine ratio 24, GFR 30. All other labs within normal range. CBC with diff abnormals RBC 3.73, hemoglobin 11.3, hematocrit 34.0. All other labs within normal range. SUBJECTIVE DATA: Upon entering the room I found the patient sitting in chair. The patient does not appear to be in distress or discomfort. The patient is cooperative with examination. The patient states that starting the Ativan does feel more relaxed. The patient states he has no pain, no cough, no shortness of breath. No fever, chills, or nausea, states he has been eating and drinking well. Denies bowel or bladder dysfunction. States has been working with therapy and has been up walking in the halls. The patient states no concerns with ambulation. OBJECTIVE DATA: Vital Signs: Temp 98.6, blood pressure 140/89, pulse 93, respirations 18, pulse ox 96% on room air, weight 248.2 pounds. Respiratory: Respirations are easy and unlabored with patient at rest. Lung sounds are clear. Heart: Heart rate and rhythm regular. Abdomen: Soft and nontender with palpation. Bowel sounds present x4. Extremities: Nonedematous. Psych: The patient is calm and cooperative with examination. IMPRESSION AND PLAN: 1. Diabetes with hyperglycemia. The patient is currently on glargine and Humalog. The patient continues with hyperglycemic readings. The patient states he does take Tresiba and not glargine. 2. Hypertension. On metoprolol, losartan, hydrochlorothiazide. 3. Elevation in creatinine. The patient is stage 3 at this time with a GFR of 30, creatinine 2.2 and continues trending up. Plans to hold losartan and increase fluids refused by patient. The patient does express wishes to go home. 4. Anemia. Hemoglobin 11.3. 5. Benign prostatic hypertrophy with urinary retention. The patient did have Gordon catheter discontinued. The patient has had no urinary symptoms. The patient is currently on Flomax. 6. Anxiety and depression, on mirtazapine, Fetzima, buspirone, Ativan. The patient was not receiving Fetzima due to difficulties receiving from pharmacy. 7. Gastroesophageal reflux disease, on pantoprazole. 8. Hyperlipidemia, on atorvastatin. The patient is stable at the time of discharge. The patient will be returning home with current medications, current treatments. The patient's primary care physician telephone call placed and concerns were addressed with primary care physician. The patient has been informed to call primary care physician for appointment as the patient may have an appointment tomorrow morning. The patient is authorized to be discharged home. Time spent doing discharge gr (more content not included)...[facility]01-18-2023 History of Present illness Narrative* Alexander Velazquez APRN.LEATHER TACKER - 03/28/2022 12:00 AM EST [facility] NOTE NAME: MANGURMEET NO.: [id number] DATE OF SERVICE: 03/28/2022 [facility] DATE OF : 1955 REASON FOR VISIT: The patient is a resident of [facility]. This is a discharge visit for diabetes, hypertension, and other medical concerns. The patient was admitted to [facility] from [facility] after having a syncopal episode with injury. The patient had ashort stay at [facility]. The patient is demanding to leave today. The patient states he has family issues to take care of plus he wants to have his family doctor work on his medications. I did express to the patient that the concerns of his diabetes, the patient has been running blood sugars 200 to 300s and patient has been noted to be hypertensive. The patient did have anxiety and was treated withlow-dose Ativan. The patient states anxiety is lessened. The patient states at this time I did suggest that the patient stay so we could work on his medication. The patient does refuse this and states no matter what he is leaving. DATE OF ADMISSION: March 22, 2022. DATE OF DISCHARGE: March 28, 2022. MEDICATIONS: 1. Hydrochlorothiazide 25 mg daily for hypertension. 2. Atorvastatin 40 mg 1 tab at bedtime for hyperlipidemia. 3. Mirtazapine 30 mg 1 tablet at bedtime for depression. 4. Lyrica 150 mg 1 tab 2 timesa day for neuropathy. 5. Glargine 20 units twice daily for diabetes. 6. Buspirone 30 mg 1 tab dailyfor anxiety. 7. Fetzima 1 tablet at bedtime for depression. 8. Losartan 50 mg 2 tabs daily for hypertension. 9. Flomax 0.4 mg 1 tab daily at bedtime for BPH. 10. MiraLax 17 g 1 scoop at bedtime for constipation. 11. Aspirin 81 mg 1 tab daily for heart health. 12. Pantoprazole delayed release 40 mg 1 tab daily for GERD. 13. Metoprolol tartrate 25 mg 1 tab 2 times daily for hypertension. The patient also has p.r.n. medications, Ativan, acetaminophen, various laxatives, Percocet, and Humalog per sliding scale. LAB DATA: Reviewed March 26, 2022, basic metabolic panel, abnormals, glucose 172, sodium 134, BUN53, creatinine 2.2, BUN and creatinine ratio 24, GFR 30. All other labs within normal range. CBC with diff abnormals RBC 3.73, hemoglobin 11.3, hematocrit 34.0. All other labs within normal range. SUBJECTIVE DATA: Upon entering the room I found the patient sitting in chair. The patient does not appear to be in distress or discomfort. The patient is cooperative with examination. The patient states that starting the Ativan does feel more relaxed. The patient states he has no pain, no cough, noshortness of breath. No fever, chills, or nausea, states he has been eating and drinking well. Denies bowel or bladder dysfunction. States has been working with therapy and has been up walking in [facility]. The patient states no concerns with ambulation. OBJECTIVE DATA: Vital Signs: Temp 98.6, blood pressure 140/89, pulse 93, respirations 18, pulse ox 96% on room air, weight 248.2 pounds. Respiratory: Respirations are easy and unlabored with patient at rest. Lung sounds are clear. Heart: Heart rate and rhythm regular. Abdomen: Soft and nontender with palpation. Bowel sounds present x4. Extremities: Nonedematous. Psych: The patient is calm and cooperative with examination. IMPRESSION AND PLAN: 1. Diabetes with hyperglycemia. The patient is currently on glargine and Humalog. The patient continues with hyperglycemic readings. The patient states he does take Tresiba and not glargine. 2. Hypertension. On metoprolol, losartan, hydrochlorothiazide. 3. Elevation in creatinine. The patient is stage 3 at this time with a GFR of 30, creatinine 2.2 and continues trending up. Plans to hold losartan and increase fluids refused by patient. The patient does express wishes to go home. 4. Anemia. Hemoglobin 11.3. 5. Benign prostatic hypertrophy with urinary retention. The patient did have Gordon catheter discontinued. The patient has had no urinary symptoms. The patient is currently on Flomax. 6. Anxiety and depression, on mirtazapine, Fetzima, buspirone, Ativan. The patient was not receiving Fetzima due to d ifficulties receiving from pharmacy. 7. Gastroesophageal reflux disease, on pantoprazole. 8. Hyperlipidemia, on atorvastatin. The patient is stable at the time of discharge. The patient will be returning home with current medications, current treatments. The patient's primary care physician telephone call placed and concerns were addressed with primary care physician. The patient has been informed to call primary care physician for appointment as the patient may have an appointment tomorrow morning. The patient is authorized to be discharged home. Time spent doing discharge greater than 31 minutes. DICTATED BY: SUZY Baker JOB# [id number] cc:[facility] documented [facility] NoteHNO ID: [id number] Author: Alexander Velazquez APRN.LEATHER TACKER Service: ? Author Type: Nurse Specialist Type: Progress Notes Filed: 03/28/2022 9:19 AM Note Text: [facility] NOTE NAME: GURMEET CONWAY NO.: [id number] DATE OF SERVICE: 03/26/2022 [facility] DATE OF : 1955 REASON FOR VISIT: The patient is a resident of [facility]. This is a skilled visit for diabetes with hyperglycemia, hypertension, and other medical concerns. Prior to entering room, staff reports the patient was very emotional this morning and crying. Upon entering room, found the patient calm, alert, sitting in chair, watching television. The patient does not appear to be in distress or discomfort. The patient states history the led to the hospital, states that he went to stand after having an episode of acid reflux when stated he passed out. Was found himself lying face down on the floor, unable to move arms and legs. The patient states continues to have pain to the bilateral shoulders with weakness in the arms and legs. When talking about his emotional state, the patient states he has been on Ativan 1 mg from 10 years and was abruptly stopped while in the hospital. The patient states has been feeling much anxiety and depression. The patient states no desire for self-harm or harming others. The patient states has been attempting to wean himself off the Percocet, but does have pain more so on the left shoulder, but does have pain to the bilateral shoulders. The patient states no cough, shortness of breath. No fever, chills, or nausea. has been eating well. has had no bowel movement for 3 days, but does not feel bloated or have abdominal pain. The patient states has been drinking fluids. The patient does have a Gordon catheter. The patient states did not have Gordon catheter or urinary issues prior to event that led him to his hospitalization. States he has no urinary symptoms. Did express to the patient, we will attempt to remove the Gordon catheter on a trial period. MEDICATIONS: Medications have been reviewed. EXAMINATION: Temp 98.0, blood pressure 160/104, pulse 102, respirations 18, pulse ox 97% on room air. Weight 248 pounds. Respiratory: Respirations are easy and unlabored with the patient at rest. Lung sounds are clear. Heart: Heart rate and rhythm are regular. Abdomen: Soft, nontender with palpation. Bowel sounds present x4. Extremities: Non-edematous. IMPRESSION NONDISTENDED PLAN: 1. Diabetes with hyperglycemia. The patient does have fair glycemic control at this time. Last blood sugar 179. Is on glargine and Humalog per sliding scale. We will continue to monitor blood sugars closely. 2. Hypertension. The patient has hypertensive and mildly tachycardic readings and has been since the edema. The patient does have hydrochlorothiazide, losartan, and metoprolol, but the patient has been having much anxiety. We will attempt the Ativan, and if the patient continues to with hypertensive and tachycardic concerns, we will adjust medications accordingly. 3. Anemia. CBC, BMP is pending today. No bleeding episodes have been reported. 4. Benign prostatic hyperplasia with urinary obstruction. Is currently on Flomax. We will attempt trial of removing the Gordon catheter. If the patient has no void in 6 hours or complaints of urinary retention, will be reinserted and will follow with Urology services. 5. Anxiety and depression. Currently on Fetzima, mirtazapine, adding Ativan 0.5 mg 3 times a day. The patient will follow with Psychiatric services. 6. Generalized weakness. The patient is following with therapy services. DICTATED BY: SUZY Baker/Aditya JOB# [id number] cc:[facility]01-16-[facility] History of Present illness Narrative* Alexander Velazquez APRN.LEATHER TACKER - 03/26/2022 12:00 AM EST [facility] NOTE NAME: GURMEET CONWAY NO.: [id number] DATE OF SERVICE: 03/26/2022 [facility] DATE OF : 1955 REASON FOR VISIT: The patient is a resident of [facility]. This is a skilled visit for diabetes with hyperglycemia, hypertension, and other medical concerns. Prior to entering room, staff reports the patient was very emotional this morning and crying. Upon entering room, found the patient calm, alert, sitting in chair, watching television. The patient does not appear to be in distress or discomfort. The patient states history the led to the hospital, states that he went to stand after having an episode of acid reflux when stated he passed out. Was found himself lying face down on the floor, unable to move arms and legs. The patient states continues to have pain to the bilateral shoulders with weakness in the arms and legs. When talking about his emotional state, the patient states he has been on Ativan 1 mg from 10 years and was abruptlystopped while in the hospital. The patient states has been feeling much anxiety and depression. Thepatient states no desire for self-harm or harming others. The patient states has been attempting towean himself off the Percocet, but does have pain more so on the left shoulder, but does have pain to the bilateral shoulders. The patient states no cough, shortness of breath. No fever, chills, or nausea. has been eating well. States has had no bowel movement for 3 days, but does not feel bl oated or have abdominal pain. The patient states has been drinking fluids. The patient does have a Gordon catheter. The patient states did not have Gordon catheter or urinary issues prior to event thatled him to his hospitalization. States he has no urinary symptoms. Did express to the patient, we will attempt to remove the Gordon catheter on a trial period. MEDICATIONS: Medications have been reviewed. EXAMINATION: Temp 98.0, blood pressure 160/104, pulse 102, respirations 18, pulse ox 97% on room air. Weight 248 pounds. Respiratory: Respirations are easy and unlabored with the patient at rest. Lung sounds are clear. Heart: Heart rate and rhythm are regular. Abdomen: Soft, nontender with palpation. Bowel sounds present x4. Extremities: Non-edematous. IMPRESSION NONDISTENDED PLAN: 1. Diabetes with hyperglycemia. The patient does have fair glycemic control at this time. Last blood sugar 179. Is on glargine and Humalog per sliding scale. We will continue to monitor blood sugars closely. 2. Hypertension. The patient has hypertensive and mildly tachycardic readings and has been since the edema. The patient does have hydrochlorothiazide, losartan, and metoprolol, but the patient has been having much anxiety. We will attempt the Ativan, and if the patient continues to with hypertensive and tachycardic concerns, we will adjust medications accordingly. 3. Anemia. CBC, BMP is pending today. No bleeding episodes have been reported. 4. Benign prostatic hyperplasia with urinary obstruction. Is currently on Flomax. We will attempt trial of removing the Gordon catheter. If the patient has no void in 6 hours or complaints of urinary retention, will be reinserted and will follow with Urology services. 5. Anxiety and depression. Currently on Fetzima, mirtazapine, adding Ativan 0.5 mg 3 times a day. The patient will follow with Psychiatric services. 6. Generalized weakness. The patient is following with therapy services. DICTATED BY: SUZY Baker/Aditya JOB# [id number] cc:[facility] documented in this encounterAccess Hospital [facility]01-13-2023 NoteHNO ID: [id number] Author: Zion Clifford Service: ? Author Type: Physician Type: Progress Notes Filed: 03/26/2022 7:38 PM Note Text: [facility] NOTE NAME: GURMEET CONWAY NO.: [id number] DATE OF SERVICE: 03/23/2022 [facility] DATE OF : 1955 New Patient History and Physical HISTORY OF PRESENT ILLNESS: The patient is a 66-year-old male who is admitted to us from [facility] with a diagnosis of closed head injury with facial laceration and multiple contusions secondary to acute fall, hyperglycemia secondary to diabetes mellitus type 2, acute urinary retention requiring indwelling Gordon catheter, elevated creatinine, electrolyte imbalance with hyponatremia, severe constipation, chronic anemia, history of hepatitis C with treatment, ongoing marijuana use, chronic anxiety, hypertension, hyperlipidemia, previous Whipple procedure for pancreatic cancer, ongoing smoking history, right toe amputation, and generalized weakness. He was initially admitted to the hospital after falling at home. He apparently did bump his head. No reports of loss of consciousness. Evaluation in the hospital did not reveal any acute fractures. He did undergo CT scan of the head as well as spine, face, and chest along with abdomen and pelvis, all of which were negative for any acute injuries. Multiple x-rays were also negative. He did develop acute urinary retention after initial removal of his Gordon catheter. His Gordon catheter was reinserted with instruction to follow up with urology as an outpatient. He was started on Flomax. His creatinine was also found to be somewhat elevated. He did have uncontrolled hypertension for which his medications were adjusted. His condition was stabilized and he is now admitted to our facility for continued therapy, prior to returning back to his apartment where he lives by himself. REVIEW OF SYSTEMS: He is currently resting in bed. He is alert and responsive. He is quite concerned about his anxiety for which he states he takes Ativan on a regular basis. He has had no change in his vision or hearing or actual syncope. He denies being short of breath. No documented history of COPD, asthma, bronchitis, or recent pneumonia. He does smoke at least half a pack of cigarettes daily. Also, he admits to smoking marijuana. He denies any cardiac history. No chest pain, angina, palpitations, previous heart attacks, heart surgeries or pacemakers. He does have hypertension and hyperlipidemia. Once again his blood pressure was poorly controlled in the hospital. His appetite has been fair. No history of bleeding ulcers or rectal bleeding. He states that he completed treatment for hepatitis C, which he thinks may have contracted from all his tattoos. No prior strokes or seizures. He is a poorly controlled diabetic. No bleeding problems or blood clots or thyroid problems. FAMILY HISTORY: Significant for hypertension. SOCIAL/FUNCTIONAL HISTORY: He once again does smoke at least half a pack of cigarettes daily. He denies alcohol abuse. 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 He has been living in an apartment by himself. MEDICATIONS: Aspirin 81 mg daily, atorvastatin 40 mg at h.s., BuSpar 30 mg 3 times a day, Fetzima 120 mg daily, Humalog sliding scale coverage, hydrochlorothiazide 25 mg daily, glargine insulin 20 units subcu b.i.d., losartan 50 mg 2 tablets daily, metoprolol tartrate 25 mg b.i.d., MiraLax daily, mirtazapine 30 mg at bedtime, pantoprazole 40 mg daily, Percocet p.r.n., pregabalin 150 mg b.i.d., tamsulosin 0.4 mg daily, and p.r.n. Tylenol. ALLERGIES: RAGWEED. EXAMINATION: Afebrile. His vital signs are stable, but he is in no distress. He appears chronically ill. He does appear quite anxious. HEENT: Extraocular movements intact, sclerae nonicteric. Ears intact. He does have a scab along his forehead with no signs of bleeding or drainage. Lungs: Clear. Heart: Regular. Abdomen: Soft, nontender. Bowel sounds present. Extremities: No edema. No ischemia or cyanosis. He does have generalized weakness. Indwelling Gordon catheter is presenting and draining clear, yellow urine. IMPRESSION: 1. Closed head injury with facial laceration and multiple contusions secondary to acute fall - fall precautions are present. Evaluation in the hospital did not reveal any other significant injuries or fractures. 2. Acute urinary retention - most likely secondary to obstructive uropathy from benign prostatic hypertrophy. He is on Flomax. Maintain current indwelling Gordon catheter until he is seen in followup by urology services. 3. Uncontrolled hypertension - his blood pressure medicines were adjusted in the hospital. Monitor his blood pressure closely and make adjustments as needed. 4. Electrolyte imbalance with hyponatremia - we will obtain followup BMP, monitor blood counts closely. 5. Elevated creatinine level - he may (more content not included)...[facility]01-13-20[facility] History of Present illness Narrative* Zion Clifford - 03/23/2022 12:00 AM EST [facility] NOTE NAME: GURMEET CONWAY NO.: [id number] DATE OF SERVICE: 03/23/2022 [facility] DATE OF : 1955 New Patient History and Physical HISTORY OF PRESENT ILLNESS: The patient is a 66-year-old male who is admitted to us from [facility] with a diagnosis of closed head injury with facial laceration and multiple contusions secondary to acute fall, hyperglycemia secondary to diabetes mellitus type 2, acute urinary retention requiring indwelling Gordon catheter, elevated creatinine, electrolyte imbalance with hyponatremia, severe constipation, chronic anemia, history of hepatitis C with treatment, ongoing marijuana use, chronic anxiety, hypertension, hyperlipidemia, previous Whipple procedure for pancreatic cancer,ongoing smoking history, right toe amputation, and generalized weakness. He was initially admitted to the hospital after falling at home. He apparently did bump his head. No reports of loss of consciousness. Evaluation in the hospital did not reveal any acute fractures. He did undergo CT scan of the head as well as spine, face, and chest along with abdomen and pelvis, all of which were negative for any acute injuries. Multiple x-rays were also negative. He did develop acute urinary retention after initial removal of his Gordon catheter. His Gordon catheter was reinserted with instruction to follow up with urology as an outpatient. He was started on Flomax. His creatinine was also found to be somewhat elevated. He did have uncontrolled hypertension for which his medications were adjusted. His condition was stabilized and he is now admitted to our facility for continued therapy, prior to returning back to his apartment where he lives by himself. REVIEW OF SYSTEMS: He is currently resting in bed. He is alert and responsive. He is quite concerned about his anxiety for which he states he takes Ativan on a regular basis. He has had no change in his vision or hearing or actual syncope. He denies being short of breath. No documented history of COPD, asthma, bronchitis, or recent pneumonia. He does smoke at least half a pack of cigarettes daily. Also, he admits to smoking marijuana. He denies any cardiac history. No chest pain, angina, palpitations, previous heart attacks, heart surgeries or pacemakers. He does have hypertension and hyperlipidemia. Once again his blood pressure was poorly controlled in the hospital. His appetite has been fair. No history of bleeding ulcers or rectal bleeding. He states that he completed treatment for hepatitis C, which he thinks may have contracted from all his tattoos. No prior strokes or seizures. He is a poorly controlled diabetic. No bleeding problems or blood clots or thyroid problems. FAMILY HISTORY: Significant for hypertension. SOCIAL/FUNCTIONAL HISTORY: He once again does smoke at least half a pack of cigarettes daily. He denies alcohol abuse. 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 He has been living in an apartment by himself. MEDICATIONS: Aspirin 81 mg daily, atorvastatin 40 mg at h.s., BuSpar 30 mg 3 times a day, Fetzima 120 mg daily, Humalog sliding scale coverage, hydrochlorothiazide 25 mg daily, glargine insulin 20 units subcu b.i.d., losartan 50 mg 2 tablets daily, metoprolol tartrate 25 mg b.i.d., MiraLax daily, mirtazapine 30 mg at bedtime, pantoprazole 40 mg daily, Percocet p.r.n., pregabalin 150 mg b.i.d., tamsulosin 0.4 mg daily, and p.r.n. Tylenol. ALLERGIES: RAGWEED. EXAMINATION: Afebrile. His vital signs are stable, but he is in no distress. He appears chronicallyill. He does appear quite anxious. HEENT: Extraocular movements intact, sclerae nonicteric. Ears intact. He does have a scab along his forehead with no signs of bleeding or drainage. Lungs: Clear. Heart: Regular. Abdomen: Soft, nontender. Bowel sounds present. Extremities: No edema. No ischemia or cyanosis. He does have generalized weakness. Indwelling Gordon catheter is presenting and draining clear, yellow urine. IMPRESSION: 1. Closed head injury with facial laceration and multiple contusions secondary to acute fall - fallprecautions are present. Evaluation in the hospital did not reveal any other significant injuries or fractures. 2. Acute urinary retention - most likely secondary to obstructive uropathy from benign prostatic hypertrophy. He is on Flomax. Maintain current indwelling Gordon catheter until he is seen in followup by urology services. 3. Uncontrolled hypertension - his blood pressure medicines were adjusted in the hospital. Monitor his blood pressure closely and make adjustments as needed. 4. Electrolyte imbalance with hyponatremia - we will obtain followup BMP, monitor blood counts closely. 5. Elevated creatinine level - he may have underlying chronic kidney disease. We will monitor his renal function closely. 6. History of hepatitis C - complete course of treatment. 7. Status post previous Whipple procedure for pancreatic cancer - he will follow up with oncology as an outpatient. He does have port present along his right chest wall. 8. Functional assessment - he does have generalized weakness. He will be receiving rehab services for overall strengthening and conditioning. 9. Anxiety disorder - patient is requesting his Ativan. We will confirm from his PCP that he is indeed on the dose of Ativan that he is indicating and if confirmed, we will initiate treatment. His overall condition and prognosis is somewhat guarded. We will obtain followup labs including CBC and BMP. He will be returning home upon completion of his therapy. DICTATED BY: MD LENORE Dorman/Aditya JOB# [id number] cc:[facility] documented in this encounterAccess [facility]22 Progress note Author Maura [facility] February 15, 2022 11:46am Note Date/Time February 15, 2022 1 1:28am [facility] [place] [address] Hem/Onc Follow Up Note - OP Signed Patient: Altagracia Conway MR#: [id number] : 1955 Acct:[id number] Age/Sex: 66 / M Type: REG RCR Copies to: DO Nasim Allen MD~ Subjective Date/Time of Service: Date of Service: 02/15/2022 Time of Service: 11:27 Chief Complaint: Patient is here for a 2 month follow up for pancreatic cancer, has labs for review and voices no concerns. HPI: 02/15/2022: Altagracia is here for interval 3 month follow up. He continues to have these persistent, but infrequent episodes of spasm like pain in the mid abdomen/epigastric area. The pain has been present since her surgery and has notworsened in that time. He denies any changes in bowel habits, no significant diarrhea/constipation, fatigue, weight loss or new bony pain. Appetite and weight are stable. Stable neuropathy on Lyrica. Denies chest pain, cough, shortness of breath or dyspnea on exertion, no abdominal distention. He saw Dr. Shaikh for add on visit in December 2021 due to concerning oral plaque/oral lesion. He was referred to oral surgeon but patient did not keep appointment duethe surgeon not taking his insurance. Since that time, the lesion has since resolved - reports he has white spots that come and go over the years. He is acurrent, everyday smoker. 11/15/2021: 3 month followup for review of tumor markers and restaging CT. Denies chest or abdominal pain, distension, nausea/emesis, or weight loss. CA 19-9 in normal range 21. Restaging CT CAP without evidence of recurrence. Now 2 years from Whipple procedure. July f/u in 3 months with CBC, CMP, tumor markerCA 19-9 and exam only. Defer next imaging to 6 months unless new symptoms or rising tumor marker. Low complexity 25 min followup visit. 08/11/2021: 6 week followup--07/27/2021 CT scan at [facility] was concerning for recurrence (nonspecific mesenteric stranding) therefore he was sent for PET/CT and we are reviewing this today. No change in medical history--denies abdominalpain or distension, mild decrease of stool frequency (now 2-3 times daily) without nausea/emesis and stable weight. PET/CT shows no suspicious uptake and normal CA 19-9 tumor marker 14. No recurrence now 21 months from curative surgery and 12 months from completion of adjuvant therapy. Next f/u [address] CAP and exam/CA 19-9. 06/19/2021: Altagracia is here for routine follow up on surveillance for history of resected T2N0 pancreatic cancer. Clinically, he is stable. He had PFT and EGD done since his last visit to assess his complaints of intermittent epigastric pain and abdominal cramping. On his last CT scan dated 05/04/2021 there was mention of mild wall thickening of proximal small bowel of undetermined significance. He was referred to gastroenterology and underwent EGD on 05/30/2021 with essentially normal findings. The patient was started on dicyclomine 4 times daily and has follow-up with GI in the next month. He reports these episodes asintermittent periods of cramping with no associated diarrhea or obvious evidenceof blood in the stool. He reports that he goes several days, even up to a week and does not have any issues with the cramping. Presently, the patient is doingwell, reports normal appetite. He has gained approximately 4-5 pounds since hislast visit. Overall, no other areas of new pain or acute changes. His last CA 19?9 was normal. 02/22/2021: SUZY Sands attempted to contact Altagracia with CT results but could not reach him after multiple attempts. When he was finally reached, he reported about one week history of recurrent epigastric pain which lasts about 5minutes and takes away my breath . Not associated with eating or at a certain time of day. No change in urine or stool frequency and nausea stable. His CT CAP showed no evidence of metastatic disease. I sent labs to determine if he has worsening LFTs or pancreatitis. If unremarkable, he already has an appointment with GI in March--we will try to have him seen sooner for EGD if possible. Until then he is prescribed Tramadol 50mg po q6h prn (#60, RF0). He may f/u as previously scheduled in 04/2021, sooner prn. 01/26/2021: Altagracia presents for routine 3 month followup for T2N0M0 resected pancreatic cancer to review symptoms and labs (tumor markers). He is noted on laboratories to have slight rise in his CA 19-9 from 26 ---> 40. CBC is relatively unremarkable, with improving anemia. CMP reveals worsening of baseline creatinine and GFR (GFR= 47), normal electrolytes and calcium. He has mild elevation of AST (55) and increased Alkaline phosphate (360) with normal bilirubin. He reports that his PCP has referred him to a buffing machine operator semiautomatic and he hasan upcoming appt in March 2021. 10/19/2020: One month followup to review restaging CT Chest Abdomen and Pelvis with tumor markers after completing all 12 cycles of FOLFIRINOX. Has numbness of bilateral hands all the time but this is not painful for him. No further suicidal ideation and has scheduled followup with his psychiatrist in November. No abdominal pain and regaining weight. Still has bedbug infestation--taking precautions for visits but no visualized bugs on exam today. Reviewed normal tumor marker CA 19-[address] without evidence of recurrence. Continue port flushes every 6 weeks. Next f/u for symptom review and tumor marker in 3 months, sooner if new symptoms. 09/19/2020: Altagracia is here to resume cycle 11-day 1 FOLFIRINOX tomorrow. He has had a dose delay of about 2 weeks for cycle 11 due to hospitalization on 1S 09/10-11/2020 for suicidal ideation. He reported feeling overwhelmed due to multiple psychosocial stressors including his physical illness with difficulty sleeping and depressed mood. He had increased dose of Remeron to 22.5 mg nightly, Effexor added for depression titrating up to 112.5 mg daily, and lorazepam was changed to Klonopin 1 mg 3 times daily. He was deemed safe for discharge home he notes that he feels much improved. He was diagnosed with bedbug infestation last month and we have performed room cleaning precautions. No current pruritusand there was chemotherapy related fatigue and mild peripheral neuropathy has been improved since he had his 2-week delay in therapy. He denies any current dyspnea with exertion. It feels stable to resume his 11th cycle (last 2 cycles)of FOLFIRINOX therapy tomorrow. I will send tumor markers CA 19-9 and coordinate follow-up CT chest abdomen pelvis for restaging in about 1 month prior to his next follow-up. 07/25/2020: Altagracia resumed FOLFIRINOX cycle 7 one week ago at 80% dose of all meds. He notes persistent dyspnea and does not feel improved with albuterol metered dose inhalers. I offered to delay chemo or reduce dose further, but he fears recurrence and wants to proceed. He requested IV nausea meds and hydration today. I will contact Dr. Dockery and recommend increasing Ativan totwice daily with his Abilify and Cymbalta. His PFTs are consistent with asthma--reversible obstruction. I'm adding budesonide (Pulmcort) twice daily toAlbuterol MDIs. He cannot get an appointment with pulmonary medicine until 08 September. WBC 35,000--some of his anxiety may be due to growth factors. I will drop Zarxio next cycle and I will see him in 2 weeks after cycle 8. 07/13/2020: Altagracia is here for follow-up after delaying cycle 7 chemotherapy over the past week. He was due to be treated yesterday but has continued dyspnea with exertion and wishes to defer therapy another week. He was admitted overnight 1 week ago for his dyspnea and treated with antibiotics as well as acyclovir and nystatin swish and swallow for odynophagia which is slowly improving. He still reports that he has dyspnea with exertion and climbing stairs. On exam today he had some mild wheezing on the right and has not been using MDIs. I informed him that we will send for PFTs with lung volumes and DLCO as well as a trial of albuterol nebulizer in treatment room today and MDIs at home. He also has mild hypokalemia and hypomagnesemia. If he continues to improve steadily we may treat with overall 80% dose of all meds for FOLFIRINOX and I will see him in follow-up in 2 weeks. 07/06/2020: Altagracia would have been scheduled for cycle 7-day 1 on Tuesday 07/04, butthis was held when he presented with significant dyspnea on exertion and was sent to the emergency department. CT PE protocol was negative for pulmonary embolism and oxygen saturation was 98% on room air but he had significant tachypnea. He had no associated cough but reported a mouth sore on the left side of his tongue and severe odynophagia (10/10 pain). He has been using topical viscous lidocaine which is not resolved his symptoms. He was admitted and blood culture through his port showed a presumptive coagulase-negative staphthrough the port and no growth from peripheral culture through the wrist. Also had negative nasopharyngeal panel, negative coronavirus, and negative urine culture. He still has significant tachypnea with respiratory rate about 25 and heart rate 116. Saturation is 99% on room air. --We will continue to hold his chemotherapy. I am treating him with 1 L fluid normal saline, 2 mg IV morphine and will repeat every 15 to 20 minutes until pain less than 4 out of 10, and start vancomycin for 2-week course with dosing per pharmacy. This can be given as an outpatient. He does still have significant leukocytosis which could be due to prior Neulasta and received 1 unit of packed red blood cells yesterday for hospital discharge for hemoglobin 7.7. I will reassess him in 1 week to determine if he can resume chemotherapy. I am also prescribing acyclovir and Diflucan elixirs for his odynophagia. We will put in a palliative medicine consult. 06/20/2020: Altagracia is here for cycle 6-day 1 adjuvant FOLFIRINOX. He has persistent nausea without emesis (added compazine last week), poor appetite, andgeneralized weakness. He lost 4kg in the past 2 weeks. Also notes increased numbness of hands and feet. Potassium (2.7) and Magnesium (1.4) returned low today--hydrating with 1L Normal saline with 40meq KCl IV and 4g MgSO4 IV today. Send home with oral KCl 20meq bid. We will recheck K and Mg Saturday and dose reduce Oxaliplatin by 20% for next cycle. If continued nausea and fatigue--ok to delay therapy one week. Restaging CT without evidence of recurrence 06/15/2020. F/u 1 week if dose delay, 2 weeks if treated Saturday. 05/25/2020: Altagracia is here for cycle 4-day 1 adjuvant FOLFIRINOX. He notes that he has intermittent nausea but is well controlled on his current medications. He notes early satiety and was recently given additional boost to use once daily. He has lost about 4 kg over the last month. 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 Fatigue is stable and hedenies abdominal or back pain. Renal function has proved since starting therapy. He has moderate anemia but does not require transfusion. At this point will continue full dose FOLFIRINOX and restage with CT chest abdomen pelvis prior to cycle 6 as well as CA 19-9. Next follow-up in 1 month with labs. 04/25/2020: Altagracia commenced adjuvant FOLFIRINOX C1D1 on 04/12/2020--tolerated well. Denies fatigue, nausea, constipation/diarrhea, abdominal pain or cold-induced neuropathy. F/u labs unremarkable. He wishes to move infusion to if possible for cycle 2 due to an important business meeting tomorrow (will have to set up [facility] inpatient duckworth eval to d/c 5FU pump Saturday). Otherwise no concerns--f/u with me in one month for tumor markers and exam--continue 100% dose. PREVIOUS HISTORY: This is a now 66-year-old male who originally presented to [facility] with nausea, vomiting, diarrhea in October 2019 and was found to have elevated liver enzymes with total bilirubin 12.7, alkaline phosphatase 408, ALT 247, AST 197, lipase 161, white blood cell count of thousand 100, hemoglobin 12.9, platelets 139,000. INR 1.2 and hemoglobin A1c 9.1. MRCP showed extensiveextra and intrahepatic biliary dilatation up to 1.5 cm with a dilated pancreaticduct at 5 mm without discrete mass. ERCP 11/10/[address] Weaver revealed 2 mm stricture in the common bile duct, status post sphincterotomy, brushings, and placement of plastic stent. He was referred for EUS/ERCP on 12/07/[address] Margaret Malcolm with fine-needle biopsy showing atypical cells present, suspicious for carcinoma. At that time the biliary stent was partially occluded and there was a single severe biliary stricture in the lower third of the main bile duct (malignant appearing) status post dilation and brushing also showing atypical ductal cells with another placement of plastic pancreatic stent. His care was further delayed about 1 month when he was unable to be reached by phone to discuss further plan of care. He was seen by gastroenterology at [facility] in late December complaining of increased epigastric pain. He also was noted to have about 20 pounds of weight loss and worsening diabetes. January 10 he had repeat endoscopic ultrasound with a masslike region in the pancreatic head and again brushings showed atypical cells with fine-needle aspiration again with atypical cells suspicious for cancer. CT abdomen pelvis at [facility] 01/22/2020 revealed no distant metastatic disease. IMPRESSION: 1. Pancreatic head mass measuring 2.6 x 2.2 x 3.0 cm, with 180 degree abutment and contour abnormality of the patent SMV, with increasing pancreatic ductal dilatation, highly concerning for pancreatic adenocarcinoma. The superior mesenteric artery and celiac artery are not involved. Malignant involvement of a 9 mm peripancreatic lymph node is not excluded. 2. Status post common bile duct stent placement. Air within the stent, left greater than right pneumobilia, and air within the gallbladder all suggest stent patency. 3. Enlarged prostate. Please correlate with PSA. Due to nondiagnostic biopsies and resectable disease, he consented to upfront Whipple procedure (pancreatoduodenectomy) performed 02/15/2020. He tolerated surgery well and has returned to eating a normal diet. Diabetes is well controlled on his current regimen with insulin managed by Dr. Tiki Dockery at [facility]. 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 She does have some peripheral neuropathy from diabetes but this does not limit his activity. Given high risk features of perineural and lymphovascular invasion as well as anaplastic poorly differentiated histology, we discussed FOLFIRINOX adjuvant therapy which may commence after placement of infusion port in the next 1 to 2 weeks. Today we reviewed chemotherapy counseling for FOLFIRINOX (5-fluorouracil, leucovorin, irinotecan, oxaliplatin every 2 weeks for 12 cycles). Goal of therapy is curative. Common toxicities were reviewed to include myelosuppression, fatigue, nausea, vomiting, constipation, diarrhea, mouth sores, and alopecia. Other toxicities may include pneumonitis, cold-induced neuropathy, cumulative neuropathy, secondary malignancies, hepatic and renal toxicities. The patient signed informed consent and will follow-up as directed. Of note he does have a history of chronic hepatitis C status post treatment withEpclusa with complete response. He reports that his mother had pancreatic cancer and in her 60s as well as a father with pancreatic cancer who at age 82. Brother had lung cancer but no other family history of malignancies. He is an active smoker 1/2 pack/day since age 14 and continues actively smoking. He denies alcohol use quitting about 7 years ago when he was diagnosedwith hepatitis C. 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 DIAGNOSIS: 1. 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 2. Diabetes mellitus, insulin requiring with mild peripheral neuropathy 3. History of hepatitis C status post curative Epclusa therapy around 2013. 4. Family history of mother and father with pancreatic cancer 5. History of anxiety disorder and depression 6. Ongoing tobacco use 7. Unintentional weight loss - Summary of Therapies Summary of Therapies: 1. Whipple's procedure/pancreaticoduodenectomy 02/15/2020. 2. FOLFIRINOX therapy commenced 04/12/2020. FOLFIRINOX: Day 1: Oxaliplatin 85mg/m2 IV over 2 hours; Irinotecan 180mg/m2 IVover 90 minutes; Leucovorin 400mg/m2 IV over 90 minutes; followed by Day 1: Fluorouracil 400mg/m2 IV push; followed by Days 1-2 Fluorouracil 2,400 mg/m2 IV continuous infusion over 46 hours. Repeat cycle every 2 weeks x 12 cycles. --cycle 6 06/22/2020--Will dose reduce oxaliplatin 20% for grade 3 nausea/grade 2neuropathy/renal insufficiency --Cycle 7 07/04/2020--on hold for intractable dyspnea and oral mucositis, 07/13/2020 continuing to hold cycle 7 for another week per patient request for ongoing dyspnea. --Resumed cycle 7 07/20/2020: 80% dose for all meds. He had another 20% dose reduction of oxaliplatin and irinotecan for cycle 10. He had 2-week delay of cycle 11 for psychiatric hospitalization. --Resuming cycle 11 09/20/2020: 60% dose oxaliplatin and irinotecan, 80% dose of 5-fluorouracil/leucovorin. -- Last cycle (12) 10/03/2020. ROS Details: All systems reviewed & no additional complaints except as documented Subjective/ROS - Narrative: CONSTITUTIONAL: No weight loss, fever, chills, weakness or fatigue. HEENT: Eyes: No visual loss, blurred vision, double vision or yellow sclerae. Ears, Nose, Throat: No hearing loss, epistaxis. SKIN: No rash or itching. CARDIOVASCULAR: No chest pain, chest pressure or chest discomfort. No palpitations or edema. RESPIRATORY: No shortness of breath, cough or hemoptysis. GASTROINTESTINAL: No dysphagia, nausea, vomiting or diarrhea. Intermittent episodes of abdominal pain; 1-2 episodes per week; mid epigastric area; lasts anywhere from 30 seconds - 3 mins; ongoing unchanged denies melena, hematochezia. GENITOURINARY: No dysuria, urinary frequency or urgency. NEUROLOGICAL: No headache, dizziness, syncope, numbness or tingling in the extremities. MUSCULOSKELETAL: No muscle, back pain, joint pain or stiffness. HEMATOLOGIC: No bleeding or bruising. LYMPHATICS: No enlarged nodes. PSYCHIATRIC: No history of depression or anxiety. ENDOCRINOLOGIC: No reports of sweating, cold or heat intolerance. No polyuria orpolydipsia. ALLERGIES: No history of asthma, hives, eczema or rhinitis. [facility] - Medical History Medical History: Medical History (Last Reviewed 11/15/21 @ 17:51 by Margaret Delgado MD) Amputated toe of right foot Anxiety Blockage of a bile duct liver stents placed d/t blockage Depression Diabetes mellitus Family history of pancreatic cancer History of hepatitis C Hyperlipemia Hypertension Neuropathy Odynophagia Pancreatic cancer - Surgical History Surgical History: Surgical History (Last Reviewed 11/15/21 @ 17:51 by Margaret Delgado MD) History of cholecystectomy done at time of whipple History of gastrointestinal surgery whipple procedure 02/2020 - Family History Family History: Family History (Last Reviewed 11/15/21 @ 17:51 by Margaret Delgado MD) Father Pancreatic cancer Mother Pancreatic cancer - Social History Smoking Status: Current every day smoker Tobacco Type: cigarettes Substance Use Type: None Substance Abuse Comment: states I smoke marijuana every now and then Home Medications & Allergies Allergies No Known Allergies Allergy (Verified 02/15/22 10:10) Home Medications cholecalciferol (vitamin D3) 25 mcg (1,000 unit) tablet 50 mcg PO DAILY #30 tabs09/16/20 [Rx Confirmed 02/15/22] hydrochlorothiazide 25 mg tablet 25 mg PO DAILY 15 days #15 tabs 09/16/20 [Rx Confirmed 02/15/22] pregabalin 150 mg capsule 150 mg PO BID 06/19/21 [History Confirmed 02/15/22] amlodipine 5 mg tablet 5 mg PO DAILY 07/07/21 [History Confirmed 02/15/22] buspirone 30 mg tablet 30 mg PO BID 07/07/21 [History Confirmed 02/15/22] insulin degludec 100 unit/mL (3 mL) subcutaneous pen (Tresiba FlexTouch U-100 insulin) 18 unit subcut DAILY 07/07/21 [History Confirmed 02/15/22] insulin lispro 100 unit/mL subcutaneous pen (Humalog KwikPen (U-100) Insulin) 8 unit subcut TID 07/07/21 [History Confirmed 02/15/22] levomilnacipran 20 mg capsule,24 hr,extended release (Fetzima) 20 mg PO DAILY 07/07/21 [History Confirmed 02/15/22] lisinopril 5 mg tablet 5 mg PO DAILY 07/07/21 [History Confirmed 02/15/22] lorazepam 1 mg tablet (Ativan) 1 mg PO TID 07/07/21 [History Confirmed 02/15/22] ulvauk-ayjbkpcr-ipqvbsx 36,000-114,000-180,000 unit capsule,delay rel (Creon) 1 cap PO TID 11/15/21 [History Confirmed 02/15/22] mirtazapine 30 mg tablet 30 mg PO DAILY 11/15/21 [History Confirmed 02/15/22] fluconazole 100 mg tablet (Diflucan) 100 mg PO DAILY #11 tabs 02/15/22 [Rx] Objective - Resuscitation Status Resuscitation Status: Full Code - Height/Weight Height/Weight: Height 6 ft 2 in Weight 110 kg BSA for Today's Weight 1.93 - Vital Signs Vital Signs: 02/15/22 10:10 Pulse Rate [Left Brachial] 105 H Respiratory Rate 20 Blood Pressure [Left Arm] 150/81 H 02 Sat by Pulse Oximetry 98 Oxygen Delivery Method Room Air - Pain Tongue Pain Intensity: 0 - Distress Screening Distress Screen Results: RN Distress Screening Start: 04/11/20 13:45 Freq: Q30D Status: Active Protocol: Document 12/28/21 10:17 KB (Rec: 12/28/21 10:19 KB [id number]) Distress Screening Distress score of 4 or more discussed Yes with patient? Distress screening follow up: Raising 5 grandkids, increased anxiety. Upset about referral to oral surgeon, aware it is in process. Denies needs at this time. Physical Exam Narrative: GENERAL APPEARANCE: Well developed, well nourished, in no acute distress. SKIN: Inspection of the skin reveals no rashes, ulcerations or petechiae. HEENT: The sclerae were anicteric and conjunctivae were pink and moist. EOMI, PERRLA. The oral mucosa is moist and clear. - left lateral tongue and base of tongue inspected in collaboration with Dr. Delgado - presently there is no lesion or white exudative patches appreciated. NECK: Supple and symmetric. There was no thyroid enlargement, and no tenderness,or masses were felt. CHEST: Normal contour without any kyphoscoliosis. LUNGS: Normal breath sounds on auscultation without rales, rhonchi, or crackles. CARDIOVASCULAR: S1 and S2, regular rate and rhythm, no murmurs, gallops, rubs. ABDOMEN: Soft, nontender, bowel sounds normal. No hepatosplenomegaly. No mass palpated. LYMPH NODES: No lymphadenopathy was appreciated in the neck, axillae or groin. MUSCULOSKELETAL: Gait was normal. There was no tenderness or effusions noted. Muscle strength and tone were normal. EXTREMITIES: No cyanosis, clubbing or edema. NEUROLOGIC: Alert and oriented x 3. Normal affect. Gait was normal. Sensation totouch was normal. - ECOG Performance Status ECOG Score: 0 Results - Labs Labs: Diagram of Most Recent CBC and CMP 02/14/22 15:00 02/14/22 15:00 Labs - Last 7 Days 02/14/22 15:00: CA 19-9 Antigen 28 02/14/22 15:00: PHA Creatinine Clear 58.76, Sodium 134 L, Potassium 5.3 H, Chloride 100, Carbon Dioxide 22.8, Anion Gap 16.5 H, BUN 40 H, Creatinine 1.60 H, Est GFR ( Amer) 53, Est GFR (Non-Af Amer) 43, Glucose 287 H, Calcium 10.2, Total Bilirubin 0.3, AST 32, ALT 58, Alkaline Phosphatase 186 H, Total Protein 7.4, Albumin 3.8, Globulin 3.6, Albumin/Globulin Ratio 1.1 02/14/22 15:00: Corrected WBC 11.4 H, Uncorrected WBC Count 11.4 H, RBC 4.32, Hgb 13.1, Hct 38.7 L, MCV 89.4, MCH 30.2, MCHC 33.8, RDW 13.9, Plt Count 239, MPV 8.7, Neut % (Auto) 69.9, Lymph % (Auto) 19.2, Alfalfa % (Auto) 6.1, Eos % (Auto) 3.6, Baso % (Auto) 1.2, Nucleat RBC Rel Count 0.1, Neut # (Auto) 8.0 H, Lymph # (Auto) 2.2, Alfalfa # (Auto) 0.7, Eos # (Auto) 0.4, Baso # (Auto) 0.1 Assessment and Plan - TNM Staging Stagin02/15/2020: 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 (1) Primary cancer of head of pancreas Upfront Whipple procedure for resectable pancreas cancer (initial biopsies suspicious but nondiagnostic for malignancy). 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 Poor risk features and good performance status (although mild baseline diabetic neuropathy). He consented to FOLFIRINOXadjuvant therapy. General surgery referral for infusion port placement. 04/25/2020: No significant toxicities at followup visit (cycle 1 day 1 was 04/12/2020). We will continue 100% dose FOLFIRINOX and follow closely for hyperglycemia and neuropathy symptoms due to his baseline diabetic neuropathy. 05/25/2020: Patient has increased fatigue, early satiety, and weight loss. Adding Boost at least twice daily and encouraging use of Imodium and Zofran regularly. Okay for cycle 4 today with stable labs. Restaging CT chest abdomenpelvis will be scheduled prior to cycle 6 in 1 month I will see him at that time. 06/20/2020: Worsening fatigue, nausea, poor appetite, and weight loss. Worsening neuropathy. Decrease oxaliplatin by 20%, replete low potassium and magnesium. No evidence of recurrence on CT CAP. Reassess Saturday whether K and Mg returned today normal and OK to resume FOLFIRINOX. F/u 1 week if dose delay, 2 weeks if tx. 07/06/2020: Admitted 07/04/2020 for work-up of sudden onset tachypnea with normal oxygen saturation. CT PE protocol was negative for pulmonary embolism or infiltrate. Lactic acid was negative for sepsis and VBG showed respiratory alkalosis with metabolic acidosis. Blood cultures did show coagulase negative staph from infusion port but negative on peripheral culture. He has severe odynophagia and mouth sore. For now I am hydrating him with 1 L normal saline, holding chemotherapy until resolution of toxicities. We will start vancomycin 1.5 g daily (would calculate to 1 g twice daily but patient does not wish to return twice daily for infusions). We will reassess Saturday to see if he should continue 2 weeks of vancomycin. Also giving IV morphine 2 mg now and redose every 15 to 20 minutes until pain less than 4/10. Adding Diflucan elixir and acyclovir elixir for his odynophagia. Consult to palliative medicine for further titration of outpatient pain medication. Follow-up in 1 week to review symptoms and to determine if he is stable to resume adjuvant FOLFIRINOX therapy with likely 50% dose reduction of 5-FU leucovorin. 07/13/2020: Negative blood cultures and CT PE protocol negative for pulmonary embolism or infiltrate. His dyspnea persists despite levofloxacin as well as acyclovir and nystatin for his prior odynophagia. His pain control is stable. I am sending him for pulmonary evaluation with full PFTs and lung volumes with DLCO as well as trial of albuterol nebulizer with electrolyte repletion today and sending with Eladio HENDERSON. Follow-up with me in 2 weeks and we will consider resuming FOLFIRINOX at 80% dose overall of all drugs at his next follow-up if symptoms remain stable. Otherwise he may stop adjuvant therapy and continue observation only for resected pancreas cancer with anaplastic carcinoma. 07/25/2020: Resumed cycle 7 FOLFIRINOX at 80% dose of all meds--continued nausea, fatigue, and anxiety with subjective dyspnea. WBC 35,000 which may be increased response to Zarxio. No evidence of infection. PFTs consistent with asthma (will address below). Drop Zarxio with day 8 CBC and followup next cycle. Patient declines further dose reduction of FOLFIRINOX but will get Aloxi/Hydration today. 08/10/2020: Stable fatigue and nausea for cycle 7 FOLFIRINOX at 80% dose of all meds--continued nausea, fatigue, and anxiety with subjective dyspnea. WBC now 7000--dropped growth factors to see if this would relieve nausea and dyspnea. Pulmonary follow-up later this month and restaging CT scans in early September. Continue current dose for remaining cycles of FOLFIRINOX. 09/19/2020: 2-week delay for cycle 11 FOLFIRINOX with now 60% dose of oxaliplatinand irinotecan, 80% for all other medications. Stable grade 1 peripheral neuropathy. Hospitalized for suicidal ideation 09/10-11/2020. Symptoms now with improved control since increasing Remeron, adding Effexor, and changing Ativan to Klonopin. He has ongoing follow-up with psychiatry and dyspnea is improved. 10/19/2020: Completed 12 cycle FOLFIRINOX with last cycle 10/03/2020. CA 19-[address] CAP without evidence of recurrence. Followup neuropathy on current antidepressant medications and f/u with palliative medicine (should improve off chemotherapy) Next follow-up with me in 3 months after completion of FOLFIRINOX for exam and restaging tumor marker CA 19-9, sooner prn. We will review survivorship template at next visit. 01/26/2021: Altagracia is seen for routine 3-month follow-up for resected pancreas cancer (T2N0); s/p completion of 12 cycles FOLFIRINOX adjuvant chemotherapy, which concluded on 10/03/2020. Post treatment CT scans showed no evidence of recurrence in October 2020. He is here today for physical exam, ROS, and review of labs (CBC,CMP and CA 19-9). Clinically the patient looks well; he has gained > 30 pounds since his last visit 3 months ago and reports no new constitutional symptoms. Appetite has improved significantly; as well as, taste and fatigue. Hespecifically denies any issues with headaches, fever/chills, recent/recurrent infections, night sweats, weight loss, chest pain, cough, shortness of breath, nausea/vomiting, abdominal pain, diarrhea/constipation, new bony pain, skin rash, lymphadenopathy or lower extremity edema. His only complaint today is continued peripheral neuropathy (hands/feet) - Grade 1 (had peripheral neuropathy at baseline due to long standing diabetes). He is currently taking [id number] mg daily with no improvement. --He is noted on laboratories to have slight rise in his CA 19-9 from 26 ---> 40. CBC is relatively unremarkable, with improving anemia. CMP reveals worseningof baseline creatinine and GFR (GFR= 47), normal electrolytes and calcium. He has mild elevation of AST (55) and increased Alkaline phosphate (360) with normal bilirubin. He reports that his PCP has referred him to a buffing machine operator semiautomatic andhe has an upcoming appt in March 2021. 02/22/2021: Due to rising CA 19-9 level, SUZY Barrios ordered CT chest, abdomen/pelvis. She was unable to reach him for phone followup, but when he wascontacted he reported recurrent brief episodes of unexplained epigastric pain. No progression on restaging images, but he will see gastroenterology for EGD. Tramadol 50mg po q6h prn for pain. I sent CBC, CMP, amylase, lipase and will contact him with results. 04/26/2021: Midchest pain--pending stress test and EGD for further evaluation. 05/05/2021: Continued mid chest pain with negative stress test. Contacted GI forboth EGD and push enteroscopy due to small bowel wall thickening on restaging CTchest and pelvis. Otherwise no evidence of recurrence of pancreatic cancer and tumor marker is still normal. We will continue every 3-month surveillance with exam and labs and defer imaging unless rising CEA or new symptoms. Peripheral neuropathy is now well controlled on current regimen but he is following with palliative medicine, consider acupuncture. 06/19/2021: Intermittent, transient episodes of upper abdominal pain and cramping; with some residual numbness ; episodes are very infrequent?he sometimes can go an entire week without having an episode. He has no associateddiarrhea. He has since had normal EGD and relatively normal PFTs following his last appointment. His last CA 19?9 was within normal range. There was no evidence of recurrence on EGD, as last CT scan dated 05/04/2021 showed mild thickening in the small intestine of indeterminate etiology. -We will continue routine follow-up; surveillance for pancreatic cancer. The patient has no other changes in ROS and no new areas of pain. Both his appetiteand weight are stable, of note he has gained approximately 4-5 pounds since his last visit. 08/11/2021: CT abdomen/pelvis at [facility] in mid July showed mesenteric stranding suspicious for recurrence. PET/CT from 08/09/2021 without FDG avidity and CA 19-9normal (14). Images/reports reviewed with patient--negative for recurrence. -Continue every 3 month follow-up with CBC, CMP and CA 19?9; with CT chest/abdomen and pelvis with IV and p.o. contrast prior to next follow-up. Modcomplexity 25 min. 11/15/2021: Restaging CT Chest Abdomen Pelvis without recurrence. 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 F/u CBC, CMP and CA 19-9 only in [address] months [address] exam. Defer [address] Chest/Abdomen/Pelvis to 6 months, sooner as needed. 02/15/2022: Altagracia is here for interval 3 month follow up. He continues to have these persistent, but infrequent episodes of spasm like pain in the mid abdomen/epigastric area. The pain has been present since her surgery and has notworsened in that time. He denies any changes in bowel habits, no significant diarrhea/constipation, fatigue, weight loss or new bony pain. Appetite and weight are stable. Stable neuropathy on Lyrica. Denies chest pain, cough, shortness of breath or dyspnea on exertion, no abdominal distention. - patient is concerned about these episode of intermittent spasm like pain in the epigastric area. They are very infrequent and last anywhere from 30 seconds - 3 minutes. Do not seem to be associated with anything in particular. Etiology unclear; although sounds spasm like or neuropathic in nature. No evidence of progression on recent imaging, stable symptoms and stable laboratories with mostrecent CA 19-9 of 28. - previous stress test work up. Encouraged patient to document episodes and timing of episodes to review at next follow up. - he is compliant with Creon; could be post surgical related. - continue every 3 month follow up. Next follow up with imaging CT chest, abdomen/pelvis, along with routine labs and CA 19-9. (2) Cancer-related pain Recent recurrent epigastric pain/recent chest pain as noted above--completed restaging imaging CT CAP (05/04/2021); negative stress test; and mild emphysema on PFT. Completed EGD with gastroenterology as noted above, on 05/30/2021 with normal findings and no obvious evidence of recurrence. No pain on 11/15/2021 examand no recurrence by imaging. Defer next imaging to 6 months. - 02/15/2022: no new issues. Continue Lyrica for neuropathy (3) Peripheral neuropathy due to chemotherapy Dose reduction Oxaliplatin 40% cycle 10-12 FOLFIRINOX--has persistent neuropathy. Stable, chronic neuropathy-on max dose Lyrica 225 mg p.o. twice daily?prescribedby Dr. Dockery; is no longer following palliative medicine on a regular basis. (4) Abnormal kidney function Creatinine stable somewhat stable; 1.60-- follow up in 3 months. (5) Major depressive disorder Qualifiers: Major depression episode severity: moderate The patient was discharged home in early September after hospitalization for depression and suicidal ideation. He reports symptoms are much improved and anxiety is better since change of medications. He felt hopeless with anhedonia and passive suicidal ideation but no hallucinations. He now has no active suicidal ideation and had not had prior psychiatric hospitalizations, suicide attempts, or family history of this. No use of alcohol or illicit drugs. Following with primary care Dr. Tiki Dockery who is primary prescriber of pain medication. He now has follow-up with Dr. Bee of psychiatry as well. We will continue to follow closely after completion of adjuvant chemotherapy. Denies SI/HI. (6) Diabetes mellitus with neuropathy Qualifiers: Diabetes mellitus type: type 2 Diabetes mellitus halfway insulin use: unspecified emt intermediate insulin use status Qualified Code(s): E11.40 - Type 2 diabetes mellitus with diabetic neuropathy, unspecified Followed by Dr. Dockery--improving control since surgery, completing chemotherapy, and adjustment of insulin. (7) Asthma Qualifiers: Asthma severity: moderate Asthma persistence: persistent Negative evaluation for PE, treated for coag negative staph infection therefore he completed a course of levofloxacin. He is not hypoxic but did have some mildwheezing on exam today persistent dyspnea with exertion. He did not feel improved after albuterol MDI use at home (although only using about once daily). PFTs show reversible obstruction. Continue albuterol MDI 4 times daily and added Pulmocort MDI twice daily. Following with pulmonary. (8) Oral leukoplakia Patient showed me the lesion which is on the left lateral edge of the tongue. It looks grossly like oral leukoplakia. We will refer him to oral surgeon for assessment and biopsy. I instructed him to keep his previously scheduled appointment as surveillance on his pancreatic cancer He saw Dr. Shaikh for add on visit in December 2021 due to concerning oral plaque/oral lesion. He was referred to oral surgeon but patient did not keep appointment due the surgeon not taking his insurance. Since that time, the lesion has since resolved - reports he has white spots that come and go over the years. He is a current, everyday smoker. - no significant findings on exam today - examined in collaboration with Dr. Delgado. - will trial course of Diflucan x 1 week. - reassess at next follow up visit. - Chemo Plan Chemo Plan (Dose, Rate, Freq): Completed adjuvant FOLFOX therapy in late September 2020. Number of Cycles: 12 Goal of Treatment: Curative - Time with Patient Time Spent with Patient (Follow Up Visit): 35 minutes - Mod complexity f/u exam,tumor marker, restaging CT, oral examination, abdominal pain Coordination of Care & Counseling Time: Greater than 50% of time spent with patient was for coordination of care (as documented) and [id number] counseling of patient and/or family. Dictated By: Maura Sands APRN DD/ [id number] Signed By: <Electronically signed by NYLA Sands> 02/15/22 114[address] [facility] Work Phone: [phone]) 267-451010-04-2022 Progress note Author Brent Chitogerald [facility] December 12, 2021 3:37pm Note Date/Time December 12, 2021 3: 25pm [facility] at [address] [address] Hem/Onc Follow Up Note - OP Signed Patient: Altagracia Conway MR#: [id number] : 1955 Acct:[id number] Age/Sex: 66 / M Type: REG RCR Copies to: DO Nasim Allen MD~ Subjective Date/Time of Service: Date of Service: 12/12/2021 Time of Service: 15:21 Chief Complaint: pt called to be seen for sore on tongue due to PCP requests. HPI: Patient is a 66-year-old white gentleman with a diagnosis of pancreatic cancer. He had definitive potentially curative Whipple surgery followed by adjuvant FOLFIRINOX chemotherapy. It has been 18 months or little longer since diagnosis. He has had regular surveillance as recently as few weeks ago with noevidence of recurrence or metastasis. He was added on today because of concern about a tongue lesion. According to the patient he was directed by his PCP to come here for assessment and further recommendations ROS Details: All systems reviewed & no additional complaints except as documented Subjective/ROS - Narrative: CONSTITUTIONAL: No weight loss, fever, chills, weakness or fatigue. HEENT: Eyes: No visual loss, blurred vision, double vision or yellow sclerae. Ears, Nose, Throat: No hearing loss, epistaxis. SKIN: No rash or itching. CARDIOVASCULAR: No chest pain, chest pressure or chest discomfort. No palpitations or edema. RESPIRATORY: No shortness of breath, cough or hemoptysis. GASTROINTESTINAL: No dysphagia, nausea, vomiting or diarrhea. No abdominal pain,melena, hematochezia. GENITOURINARY: No dysuria, urinary frequency or urgency. NEUROLOGICAL: No headache, dizziness, syncope, numbness or tingling in the extremities. MUSCULOSKELETAL: No muscle, back pain, joint pain or stiffness. HEMATOLOGIC: No bleeding or bruising. LYMPHATICS: No enlarged nodes. PSYCHIATRIC: No history of depression or anxiety. ENDOCRINOLOGIC: No reports of sweating, cold or heat intolerance. No polyuria orpolydipsia. ALLERGIES: No history of asthma, hives, eczema or rhinitis. [facility] - Medical History Medical History: Medical History (Last Reviewed 11/15/21 @ 17:51 by Margaret Delgado MD) Amputated toe of right foot Anxiety Blockage of a bile duct liver stents placed d/t blockage Depression Diabetes mellitus Family history of pancreatic cancer History of hepatitis C Hyperlipemia Hypertension Neuropathy Odynophagia Pancreatic cancer - Surgical History Surgical History: Surgical History (Last Reviewed 11/15/21 @ 17:51 by Margaret Delgado MD) History of cholecystectomy done at time of whipple History of gastrointestinal surgery whipple procedure 02/2020 - Family History Family History: Family History (Last Reviewed 11/15/21 @ 17:51 by Margaret Delgado MD) Father Pancreatic cancer Mother Pancreatic cancer - Social History Smoking Status: Current every day smoker Tobacco Type: cigarettes Substance Use Type: None Substance Abuse Comment: states I smoke marijuana every now and then Home Medications & Allergies Allergies No Known Allergies Allergy (Verified 12/12/21 14:37) Home Medications cholecalciferol (vitamin D3) 25 mcg (1,000 unit) tablet 50 mcg PO DAILY #30 tabs09/16/20 [Rx Confirmed 12/12/21] hydrochlorothiazide 25 mg tablet 25 mg PO DAILY 15 days #15 tabs 09/16/20 [Rx Confirmed 12/12/21] pregabalin 150 mg capsule 150 mg PO BID 06/19/21 [History Confirmed 12/12/21] amlodipine 5 mg tablet 5 mg PO DAILY 07/07/21 [History Confirmed 12/12/21] buspirone 30 mg tablet 30 mg PO BID 07/07/21 [History Confirmed 12/12/21] insulin degludec 100 unit/mL (3 mL) subcutaneous pen (Tresiba FlexTouch U-100 insulin) 18 unit subcut DAILY 07/07/21 [History Confirmed 12/12/21] insulin lispro 100 unit/mL subcutaneous pen (Humalog KwikPen (U-100) Insulin) 8 unit subcut TID 07/07/21 [History Confirmed 12/12/21] levomilnacipran 20 mg capsule,24 hr,extended release (Fetzima) 20 mg PO DAILY 07/07/21 [History Confirmed 12/12/21] lisinopril 5 mg tablet 5 mg PO DAILY 07/07/21 [History Confirmed 12/12/21] lorazepam 1 mg tablet (Ativan) 1 mg PO TID 07/07/21 [History Confirmed 12/12/21] [id number] 36,000-114,000-180,000 unit capsule,delay rel (Creon) 1 cap PO TID 11/15/21 [History Confirmed 12/12/21] mirtazapine 30 mg tablet 30 mg PO DAILY 11/15/21 [History Confirmed 12/12/21] Objective - Height/Weight Height/Weight: Height 6 ft 2 in Weight 105.37 kg BSA for Today's Weight 1.93 - Vital Signs Vital Signs: 12/12/21 14:41 Temperature 98.6 F Pulse Rate [Left Brachial] 92 H Respiratory Rate 18 Blood Pressure [Left Arm] 142/86 H 02 Sat by Pulse Oximetry 97 Oxygen Delivery Method Room Air - Pain Tongue Pain Intensity: 0 - Distress Screening Distress Screen Results: RN Distress Screening Start: 04/11/20 13:45 Freq: Q30D Status: Active Protocol: Document 07/07/20 10:25 MR (Rec: 07/07/20 10:28 [id number]) Distress Screening Distress Score: 8 Day to Day Concerns Insurance,Money Physical Concerns Pain,Feeling tired or a lack of energy,Trouble Sleeping Emotional Concerns Depression,Loss of interest in usual activities,Nervousness, Sadness,How my body looks, Feeling hopeless,Feeling uncertain about the future Spiritual or Hindu Concerns: Relating to a higher being Distress Screening Total 8 Distress score of 4 or more discussed Yes with patient? Distress screening follow up: DEBRA Camp patient navigator and Cathryn patient navigator notified. pt refusing assistance at this time. Physical Exam Narrative: GENERAL APPEARANCE: Well developed, well nourished, in no acute distress. SKIN: Inspection of the skin reveals no rashes, ulcerations or petechiae. HEENT: The sclerae were anicteric and conjunctivae were pink and moist. EOMI, PERRLA. The oral mucosa is moist and clear. NECK: Supple and symmetric. There was no thyroid enlargement, and no tenderness,or masses were felt. CHEST: Normal contour without any kyphoscoliosis. LUNGS: Normal breath sounds on auscultation without rales, rhonchi, or crackles. CARDIOVASCULAR: S1 and S2, regular rate and rhythm, no murmurs, gallops, rubs. ABDOMEN: Soft, nontender, bowel sounds normal. No hepatosplenomegaly. No mass palpated. LYMPH NODES: No lymphadenopathy was appreciated in the neck, axillae or groin. MUSCULOSKELETAL: Gait was normal. There was no tenderness or effusions noted. Muscle strength and tone were normal. EXTREMITIES: No cyanosis, clubbing or edema. NEUROLOGIC: Alert and oriented x 3. Normal affect. Gait was normal. Sensation totouch was normal. - ECOG Performance Status ECOG Score: 0 Results - Labs Labs: Diagram of Most Recent CBC and CMP 11/14/21 13:00 11/14/21 13:00 Assessment and Plan (1) Primary cancer of head of pancreas (2) Cancer-related pain (3) Peripheral neuropathy due to chemotherapy (4) Abnormal kidney function (5) Major depressive disorder Qualifiers: Major depression episode severity: moderate (6) Diabetes mellitus with neuropathy Qualifiers: Diabetes mellitus type: type 2 Diabetes mellitus halfway insulin use: unspecified emt intermediate insulin use status Qualified Code(s): E11.40 - Type 2 diabetes mellitus with diabetic neuropathy, unspecified (7) Asthma Qualifiers: Asthma severity: moderate Asthma persistence: persistent (8) Oral leukoplakia Patient showed me the lesion which is on the left lateral edge of the tongue. It looks grossly like oral leukoplakia. We will refer him to oral surgeon for assessment and biopsy. I instructed him to keep his previously scheduled appointment as surveillance on his pancreatic cancer - Chemo Plan Number of Cycles: 12 Goal of Treatment: Curative - Time with Patient Time Spent with Patient (Follow Up Visit): 25 minutes - Low complexity f/u exam,tumor marker, restaging CT Coordination of Care & Counseling Time: Greater than 50% of time spent with patient was for coordination of care (as documented) and [id number] counseling of patient and/or family. Dictated By: Brent Shaikh MD DD/ [id number] Signed By: <Electronically signed by Brent Shaikh MD> 12/12/21 84[address] [facility] Work Phone: [phone] 120-461509-07-2022 Progress note Author Margaret Delgado [facility] November 15, 2021 5:59pm Note Date/Time November 15, 2021 10:29am [facility] at [place] [place] [id number] Hem/Onc Follow Up Note - OP Signed Patient: Altagracia Conway MR#: [id number] : 1955 Acct:[id number] Age/Sex: 66 / M Type: REG RCR Copies to: DO Nasim Allen MD~ Subjective Date/Time of Service: Date of Service: 11/15/2021 Time of Service: 10:29 Chief Complaint: Patient is here today for 3 month follow up visit and go over labs and CT scans. He still has chest pain that comes and goes HPI: 11/15/2021: 3 month followup for review of tumor markers and restaging CT. Denies chest or abdominal pain, distension, nausea/emesis, or weight loss. CA 19-9 in normal range 21. Restaging CT CAP without evidence of recurrence. Now 2 years from Whipple procedure. May f/u in 3 months with CBC, CMP, tumor markerCA 19-9 and exam only. Defer next imaging to 6 months unless new symptoms or rising tumor marker. Low complexity 25 min followup visit. 08/11/2021: 6 week followup--07/27/2021 CT scan at [facility] was concerning for recurrence (nonspecific mesenteric stranding) therefore he was sent for PET/CT and we are reviewing this today. No change in medical history--denies abdominalpain or distension, mild decrease of stool frequency (now 2-3 times daily) without nausea/emesis and stable weight. PET/CT shows no suspicious uptake and normal CA 19-9 tumor marker 14. No recurrence now 21 months from curative surgery and 12 months from completion of adjuvant therapy. Next f/u [address] CAP and exam/CA 19-9. 06/19/2021: Altagracia is here for routine follow up on surveillance for history of resected T2N0 pancreatic cancer. Clinically, he is stable. He had PFT and EGD done since his last visit to assess his complaints of intermittent epigastric pain and abdominal cramping. On his last CT scan dated 05/04/2021 there was mention of mild wall thickening of proximal small bowel of undetermined significance. He was referred to gastroenterology and underwent EGD on 05/30/2021 with essentially normal findings. The patient was started on dicyclomine 4 times daily and has follow-up with GI in the next month. He reports these episodes as intermittent periods of cramping with no associated diarrhea or obvious evidence of blood in the stool. He reports that he goes several days, even up to a week and does not have any issues with the cramping. Presently, the patient is doing well, reports normal appetite. He has gained approximately 4-5 pounds since his last visit. Overall, no other areas of new pain or acute changes. His last CA 19?9 was normal. 02/22/2021: SUZY Sands attempted to contact Altagracai with CT results but could not reach him after multiple attempts. When he was finally reached, he reported about one week history of recurrent epigastric pain which lasts about 5minutes and takes away my breath . Not associated with eating or at a certain time of day. No change in urine or stool frequency and nausea stable. His CT CAP showed no evidence of metastatic disease. I sent labs to determine if he has worsening LFTs or pancreatitis. If unremarkable, he already has an appointment with GI in March--we will try to have him seen sooner for EGD if possible. Until then he is prescribed Tramadol 50mg po q6h prn (#60, RF0). He may f/u as previously scheduled in 04/2021, sooner prn. 01/26/2021: Altagracia presents for routine 3 month followup for T2N0M0 resected pancreatic cancer to review symptoms and labs (tumor markers). He is noted on laboratories to have slight rise in his CA 19-9 from 26 ---> 40. CBC is relatively unremarkable, with improving anemia. CMP reveals worsening of baseline creatinine and GFR (GFR= 47), normal electrolytes and calcium. He has mild elevation of AST (55) and increased Alkaline phosphate (360) with normal bilirubin. He reports that his PCP has referred him to a buffing machine operator semiautomatic and he hasan upcoming appt in March 2021. 10/19/2020: One month followup to review restaging CT Chest Abdomen and Pelvis with tumor markers after completing all 12 cycles of FOLFIRINOX. Has numbness of bilateral hands all the time but this is not painful for him. No further suicidal ideation and has scheduled followup with his psychiatrist in November. No abdominal pain and regaining weight. Still has bedbug infestation--taking precautions for visits but no visualized bugs on exam today. Reviewed normal tumor marker CA 19-[address] without evidence of recurrence. Continue port flushes every 6 weeks. Next f/u for symptom review and tumor marker in 3 months, sooner if new symptoms. 09/19/2020: Altagracia is here to resume cycle 11-day 1 FOLFIRINOX tomorrow. He has had a dose delay of about 2 weeks for cycle 11 due to hospitalization on 1S 09/10-11/2020 for suicidal ideation. He reported feeling overwhelmed due to multiple psychosocial stressors including his physical illness with difficulty sleeping and depressed mood. He had increased dose of Remeron to 22.5 mg nightly, Effexor added for depression titrating up to 112.5 mg daily, and lorazepam was changed to Klonopin 1 mg 3 times daily. He was deemed safe for discharge home he notes that he feels much improved. He was diagnosed with bedbug infestation last month and we have performed room cleaning precautions. No current pruritusand there was chemotherapy related fatigue and mild peripheral neuropathy has been improved since he had his 2-week delay in therapy. He denies any current dyspnea with exertion. It feels stable to resume his 11th cycle (last 2 cycles)of FOLFIRINOX therapy tomorrow. I will send tumor markers CA 19-9 and coordinate follow-up CT chest abdomen pelvis for restaging in about 1 month prior to his next follow-up. 07/25/2020: Altagracia resumed FOLFIRINOX cycle 7 one week ago at 80% dose of all meds. He notes persistent dyspnea and does not feel improved with albuterol metered dose inhalers. I offered to delay chemo or reduce dose further, but he fears recurrence and wants to proceed. He requested IV nausea meds and hydration today. I will contact Dr. Dockery and recommend increasing Ativan totwice daily with his Abilinikitay and Reinier. His PFTs are consistent with asthma--reversible obstruction. I'm adding budesonide (Pulmcort) twice daily to Albuterol MDIs. He cannot get an appointment with pulmonary medicine until 08 September. WBC 35,000--some of his anxiety may be due to growth factors. I will drop Zarxio next cycle and I will see him in 2 weeks after cycle 8. 07/13/2020: Altagracia is here for follow-up after delaying cycle 7 chemotherapy over the past week. He was due to be treated yesterday but has continued dyspnea with exertion and wishes to defer therapy another week. He was admitted overnight 1 week ago for his dyspnea and treated with antibiotics as well as acyclovir and nystatin swish and swallow for odynophagia which is slowly improving. He still reports that he has dyspnea with exertion and climbing stairs. On exam today he had some mild wheezing on the right and has not been using MDIs. I informed him that we will send for PFTs with lung volumes and DLCO as well as a trial of albuterol nebulizer in treatment room today and MDIs at home. He also has mild hypokalemia and hypomagnesemia. If he continues to improve steadily we may treat with overall 80% dose of all meds for FOLFIRINOX and I will see him in follow-up in 2 weeks. 07/06/2020: Altagracia would have been scheduled for cycle 7-day 1 on Tuesday 07/04, butthis was held when he presented with significant dyspnea on exertion and was sent to the emergency department. CT PE protocol was negative for pulmonary embolism and oxygen saturation was 98% on room air but he had significant tachypnea. He had no associated cough but reported a mouth sore on the left side of his tongue and severe odynophagia (10/10 pain). He has been using topical viscous lidocaine which is not resolved his symptoms. He was admitted and blood culture through his port showed a presumptive coagulase-negative staphthrough the port and no growth from peripheral culture through the wrist. Also had negative nasopharyngeal panel, negative coronavirus, and negative urine culture. He still has significant tachypnea with respiratory rate about 25 and heart rate 116. Saturation is 99% on room air. --We will continue to hold his chemotherapy. I am treating him with 1 L fluid normal saline, 2 mg IV morphine and will repeat every 15 to 20 minutes until pain less than 4 out of 10, and start vancomycin for 2-week course with dosing per pharmacy. This can be given as an outpatient. He does still have significant leukocytosis which could be due to prior Neulasta and received 1 unit of packed red blood cells yesterday for hospital discharge for hemoglobin 7.7. I will reassess him in 1 week to determine if he can resume chemotherapy. I am also prescribing acyclovir and Diflucan elixirs for his odynophagia. We will put in a palliative medicine consult. 06/20/2020: Altagracia is here for cycle 6-day 1 adjuvant FOLFIRINOX. He has persistent nausea without emesis (added compazine last week), poor appetite, andgeneralized weakness. He lost 4kg in the past 2 weeks. Also notes increased numbness of hands and feet. Potassium (2.7) and Magnesium (1.4) returned low today--hydrating with 1L Normal saline with 40meq KCl IV and 4g MgSO4 IV today. Send home with oral KCl 20meq bid. We will recheck K and Mg Saturday and dose reduce Oxaliplatin by 20% for next cycle. If continued nausea and fatigue--ok to delay therapy one week. Restaging CT without evidence of recurrence 06/15/2020. F/u 1 week if dose delay, 2 weeks if treated Saturday. 05/25/2020: Altagracia is here for cycle 4-day 1 adjuvant FOLFIRINOX. He notes that he has intermittent nausea but is well controlled on his current medications. He notes early satiety and was recently given additional boost to use once daily. He has lost about 4 kg over the last month. 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 Fatigue is stable and hedenies abdominal or back pain. Renal function has proved since starting therapy. He has moderate anemia but does not require transfusion. At this point will continue full dose FOLFIRINOX and restage with CT chest abdomen pelvisprior to cycle 6 as well as CA 19-9. Next follow-up in 1 month with labs. 04/25/2020: Altagracia commenced adjuvant FOLFIRINOX C1D1 on 04/12/2020--tolerated well. Denies fatigue, nausea, constipation/diarrhea, abdominal pain or cold-induced neuropathy. F/u labs unremarkable. He wishes to move infusion to if possible for cycle 2 due to an important business meeting tomorrow (will have to set up [facility] inpatient duckworth eval to d/c 5FU pump Saturday). Otherwise no concerns--f/u with me in one month for tumor markers and exam--continue 100% dose. PREVIOUS HISTORY: This is a now 66-year-old male who originally presented to [facility] with nausea, vomiting, diarrhea in October 2019 and was found to have elevated liver enzymes with total bilirubin 12.7, alkaline phosphatase 408, ALT 247, AST 197, lipase 161, white blood cell count of thousand 100, hemoglobin 12.9, platelets 139,000. INR 1.2 and hemoglobin A1c 9.1. MRCP showed extensiveextra and intrahepatic biliary dilatation up to 1.5 cm with a dilated pancreaticduct at 5 mm without discrete mass. ERCP 11/10/[address] Weaver revealed 2 mm stricture in the common bile duct, status post sphincterotomy, brushings, and placement of plastic stent. He was referred for EUS/ERCP on 12/07/[address] Margaret Malcolm with fine-needle biopsy showing atypical cells present, suspicious for carcinoma. At that time the biliary stent was partially occluded and there was a single severe biliary stricture in the lower third of the main bile duct (malignant appearing) status post dilation and brushing also showing atypical ductal cells with another placement of plastic pancreatic stent. His care was further delayed about 1 month when he was unable to be reached by phone to discuss further plan of care. He was seen by gastroenterology at [facility] in late December complaining of increased epigastric pain. He also was noted to have about 20 pounds of weight loss and worsening diabetes. January 10 he had repeat endoscopic ultrasound with a masslike region in the pancreatic head and again brushings showed atypical cells with fine-needle aspiration again with atypical cells suspicious for cancer. CT abdomen pelvis at [facility] 01/22/2020 revealed no distant metastatic disease. IMPRESSION: 1. Pancreatic head mass measuring 2.6 x 2.2 x 3.0 cm, with 180 degree abutment and contour abnormality of the patent SMV, with increasing pancreatic ductal dilatation, highly concerning for pancreatic adenocarcinoma. The superior mesenteric artery and celiac artery are not involved. Malignant involvement of a 9 mm peripancreatic lymph node is not excluded. 2. Status post common bile duct stent placement. Air within the stent, left greater than right pneumobilia, and air within the gallbladder all suggest stent patency. 3. Enlarged prostate. Please correlate with PSA. Due to nondiagnostic biopsies and resectable disease, he consented to upfront Whipple procedure (pancreatoduodenectomy) performed 02/15/2020. He tolerated surgery well and has returned to eating a normal diet. Diabetes is well controlled on his current regimen with insulin managed by Dr. Tiki Dockery at [facility]. 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 She does have some peripheral neuropathy from diabetes but this does not limit his activity. Given high risk features of perineural and lymphovascular invasion as well as anaplastic poorly differentiated histology, we discussed FOLFIRINOX adjuvant therapy which may commence after placement of infusion port in the next 1 to 2 weeks. Today we reviewed chemotherapy counseling for FOLFIRINOX (5-fluorouracil, leucovorin, irinotecan, oxaliplatin every 2 weeks for 12 cycles). Goal of therapy is curative. Common toxicities were reviewed to include myelosuppression, fatigue, nausea, vomiting, constipation, diarrhea, mouth sores, and alopecia. Other toxicities may include pneumonitis, cold-induced neuropathy, cumulative neuropathy, secondary malignancies, hepatic and renal toxicities. The patient signed informed consent and will follow-up as directed. Of note he does have a history of chronic hepatitis C status post treatment withEpclusa with complete response. He reports that his mother had pancreatic cancer and in her 60s as well as a father with pancreatic cancer who at age 82. Brother had lung cancer but no other family history of malignancies. He is an active smoker 1/2 pack/day since age 14 and continues actively smoking. He denies alcohol use quitting about 7 years ago when he was diagnosedwith hepatitis C. 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 DIAGNOSIS: 1. 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 2. Diabetes mellitus, insulin requiring with mild peripheral neuropathy 3. History of hepatitis C status post curative Epclusa therapy around 2013. 4. Family history of mother and father with pancreatic cancer 5. History of anxiety disorder and depression 6. Ongoing tobacco use 7. Unintentional weight loss - Summary of Therapies Summary of Therapies: 1. Whipple's procedure/pancreaticoduodenectomy 02/15/2020. 2. FOLFIRINOX therapy commenced 04/12/2020. FOLFIRINOX: Day 1: Oxaliplatin 85mg/m2 IV over 2 hours; Irinotecan 180mg/m2 IVover 90 minutes; Leucovorin 400mg/m2 IV over 90 minutes; followed by Day 1: Fluorouracil 400mg/m2 IV push; followed by Days 1-2 Fluorouracil 2,400 mg/m2 IV continuous infusion over 46 hours. Repeat cycle every 2 weeks x 12 cycles. --cycle 6 06/22/2020--Will dose reduce oxaliplatin 20% for grade 3 nausea/grade 2neuropathy/renal insufficiency --Cycle 7 07/04/2020--on hold for intractable dyspnea and oral mucositis, 07/13/2020 continuing to hold cycle 7 for another week per patient request for ongoing dyspnea. --Resumed cycle 7 07/20/2020: 80% dose for all meds. He had another 20% dose reduction of oxaliplatin and irinotecan for cycle 10. He had 2-week delay of cycle 11 for psychiatric hospitalization. --Resuming cycle 11 09/20/2020: 60% dose oxaliplatin and irinotecan, 80% dose of 5-fluorouracil/leucovorin. -- Last cycle (12) 10/03/2020. ROS Details: All systems reviewed & no additional complaints except as documented Subjective/ROS - Narrative: CONSTITUTIONAL: Stable mild fatigue--PS 1, negative for fever or night sweats. Recurrent anxiety and psychological distress--improved since hospital stay in early September 2020 as per HPI, resumed normal diet. HEAD AND NECK: Negative for changes in hearing and vision. No oral ulcers. No change in voice, nasal congestion and nasal drainage. Improved taste. ResolvedOdynophagia. PULMONARY: Positive for noncardiac chest pain as per HPI, negative for cough andpositive for mild dyspnea--improving. No pneumonia or PE on chest CT in 01/2021. CARDIOVASCULAR: Negative for claudication and irregular heartbeat/palpitations. + mid chest pain- intermittent - had negative stress test 04/2021. GASTROINTESTINAL: Denies epigastric abdominal pain as per HPI (well healed postop Whipple procedure). Positive for early satiety with decreased appetite but stable weight over the last 3 months. Stable nausea without vomiting or constipation. Positive for intermittent diarrhea (improving), not consistently using Imodium. GENITOURINARY: Negative for dysuria and hematuria. ENDOCRINE: Negative for cold intolerance and heat intolerance. Diabetes mellitus about 10 years, worsening control prior to pancreas cancer diagnosis. Now insulin dependent. CENTRAL NERVOUS SYSTEM: Negative for gait disturbance and headache. + peripheral neuropathy hands and feet--stable, chronic. PSYCHIATRIC: Improvement of prior anxiety/depression--resolution of prior suicidal ideation since hospital stay for early September 2021. DERMATOLOGICAL: Negative for pruritus and rash. Negative for suspicious skin lesions. Prior bedbugs--isolation precautions. No visible infestation today. MUSCULOSKELETAL: Negative for back pain and bone/joint symptoms. HEMATOLOGICAL: Negative for bleeding and easy bruising. Positive for 1 unit redblood cell transfusion early July 2020. Negative for history of thromboembolic disease ALLERGY: Negative for environmental allergies and food allergies. PMFSH - History Attestation statement: The following information was validated with the patient. Source: Old Records Reviewed - Medical History Medical History: Medical History (Last Reviewed 11/15/21 @ 17:51 by Margaret Delgado MD) Amputated toe of right foot Anxiety Blockage of a bile duct liver stents placed d/t blockage Depression Diabetes mellitus Family history of pancreatic cancer History of hepatitis C Hyperlipemia Hypertension Neuropathy Odynophagia Pancreatic cancer - Surgical History Surgical History: Surgical History (Last Reviewed 11/15/21 @ 17:51 by Margaret Delgado MD) History of cholecystectomy done at time of whipple History of gastrointestinal surgery whipple procedure 02/2020 - Family History Family History: Family History (Last Reviewed 11/15/21 @ 17:51 by Margaret Delgado MD) Father Pancreatic cancer Mother Pancreatic cancer - Social History Smoking Status: Current every day smoker Tobacco Type: cigarettes Substance Use Type: None Substance Abuse Comment: states I smoke marijuana every now and then Home Medications & Allergies Allergies No Known Allergies Allergy (Verified 08/11/21 11:30) Home Medications cholecalciferol (vitamin D3) 25 mcg (1,000 unit) tablet 50 mcg PO DAILY #30 tabs09/16/20 [Rx Confirmed 11/15/21] hydrochlorothiazide 25 mg tablet 25 mg PO DAILY 15 days #15 tabs 09/16/20 [Rx Confirmed 11/15/21] pregabalin 150 mg capsule 150 mg PO BID 06/19/21 [History Confirmed 11/15/21] amlodipine 5 mg tablet 5 mg PO DAILY 07/07/21 [History Confirmed 11/15/21] buspirone 30 mg tablet 30 mg PO BID 07/07/21 [History Confirmed 11/15/21] insulin degludec 100 unit/mL (3 mL) subcutaneous pen (Tresiba FlexTouch U-100 insulin) 18 unit subcut DAILY 07/07/21 [History Confirmed 11/15/21] insulin lispro 100 unit/mL subcutaneous pen (Humalog KwikPen (U-100) Insulin) 8 unit subcut TID 07/07/21 [History Confirmed 11/15/21] levomilnacipran 20 mg capsule,24 hr,extended release (Fetzima) 20 mg PO DAILY 07/07/21 [History Confirmed 11/15/21] lisinopril 5 mg tablet 5 mg PO DAILY 07/07/21 [History Confirmed 11/15/21] lorazepam 1 mg tablet (Ativan) 1 mg PO TID 07/07/21 [History Confirmed 11/15/21] wyxmej-qijpgjux-beeuufc 36,000-114,000-180,000 unit capsule,delay rel (Creon) 1 cap PO TID 11/15/21 [History Confirmed 11/15/21] mirtazapine 30 mg tablet 30 mg PO DAILY 11/15/21 [History Confirmed 11/15/21] Objective - Height/Weight Height/Weight: Height 6 ft 2 in Weight 103.873 kg BSA for Today's Weight 1.93 - Vital Signs Vital Signs: 11/15/21 10:13 Temperature 97.0 F L Pulse Rate [Left Brachial] 92 H Respiratory Rate 16 Blood Pressure [Left Arm] 152/90 H 02 Sat by Pulse Oximetry 95 Oxygen Delivery Method Room Air - Pain Tongue Pain Intensity: 0 - Distress Screening Distress Screen Results: RN Distress Screening Start: 04/11/20 13:45 Freq: Q30D Status: Active Protocol: Document 07/07/20 10:25 MR (Rec: 07/07/20 10:28 MR [id number]) Distress Screening Distress Score: 8 Day to Day Concerns Insurance,Money Physical Concerns Pain,Feeling tired or a lack of energy,Trouble Sleeping Emotional Concerns Depression,Loss of interest in usual activities,Nervousness, Sadness,How my body looks, Feeling hopeless,Feeling uncertain about the future Spiritual or Hindu Concerns: Relating to a higher being Distress Screening Total 8 Distress score of 4 or more discussed Yes with patient? Distress screening follow up: Zoë RN patient navigator and Cathryn patient navigator notified. pt refusing assistance at this time. Physical Exam Narrative: CONSTITUTIONAL: The patient is well kempt, in no respiratory distress. No fatigue or cachexia. HEAD / FACE: Normocephalic. EYES: Pupils are equal and reactive to light. Conjunctivae and lids are benign in appearance. Ocular movement intact. EARS: Hearing grossly intact. NOSE / MOUTH / THROAT: Nose, mouth, tongue and oropharynx--No oral ulcers of thrush today. NECK / THYROID: Neck is supple. Thyroid is symmetrical, without thyromegaly, masses or palpable nodules. LYMPHATIC: No palpable cervical, supraclavicular, axillary, or inguinal adenopathy. RESPIRATORY: Normal to inspection. Lungs clear to auscultation and percussion. CARDIOVASCULAR: Regular rate and rhythm. No murmurs, gallops, or rubs. VASCULAR: Carotid, radial, femoral and pedal pulses present bilaterally. No bruits. ABDOMEN: Bowel sounds normoactive. Soft, no epigastric tenderness and non- distended. No hepatosplenomegaly. No masses. Well healed incisions from Whippleprocedure. GENITOURINARY: No CVA tenderness. No suprapubic fullness or tenderness. No groinadenopathy. No evidence of hernias. INTEGUMENTARY: The skin is unremarkable. No rashes. No suspicious lesions. No visible bedbugs today on exam. BACK / SPINE: The back is nontender. No stepoff deformity. MUSCULOSKELETAL: Normal musculature, no joint deformities or abnormalities, normal range of motion for all four extremities. EXTREMITIES: No edema, cyanosis or clubbing. No Kyle sign. NEUROLOGICAL: Alert and oriented. Cranial nerves intact. No gross motor or sensory deficits. PSYCHIATRIC: Calmer and less depressed mood on visit today, no SI/HI. - ECOG Performance Status ECOG Score: 1 Results - Labs Labs: Diagram of Most Recent CBC and CMP 11/14/21 13:00 11/14/21 13:00 Labs - Last 7 Days 11/14/21 13:00: CA 19-9 Antigen 21 11/14/21 13:00: PHA Creatinine Clear 57.47, Sodium 132 L, Potassium 5.0, Chloride 100, Carbon Dioxide 22.1, Anion Gap 14.9, BUN 41 H, Creatinine 1.47 H, Est GFR ( Amer) 58, Est GFR (Non-Af Amer) 48, Glucose 139 H, Calcium 10.2, Total Bilirubin 0.4, AST 40, ALT 46, Alkaline Phosphatase 159 H, Total Protein 7.6, Albumin 4.0, Globulin 3.6, Albumin/Globulin Ratio 1.1 11/14/21 13:00: Corrected WBC 9.4, Uncorrected WBC Count 9.4, RBC 4.13, Hgb 12.8L, Hct 37.5 L, MCV 90.9, MCH 30.9, MCHC 34.0, RDW 14.2, Plt Count 229, MPV 9.0, Neut % (Auto) 58.6, Lymph % (Auto) 27.7, Alfalfa % (Auto) 8.0, Eos % (Auto) 4.9, Baso % (Auto) 0.8, Neut # (Auto) 5.5, Lymph # (Auto) 2.6, Alfalfa # (Auto) 0.7, Eos# (Auto) 0.5 H, Baso # (Auto) 0.1, Nucleated RBC % (auto) 0.0 - Impressions CT CHEST, ABDOMEN AND PELVIS WITH INTRAVENOUS CONTRAST: CLINICAL HISTORY: Restaging of pancreatic cancer COMPARISON: 05/04/2021 TECHNIQUE: Spiral images were obtained through the chest, abdomen and pelvis following oral and intravenous administration of 90 mL of Isovue-300. Images ofthe chest were reviewed using both narrow and wide window settings. This CT exam was performed using one or more following dose reduction techniques: Automated exposure control, adjustment of the mA and/or kV according to patient size, or use of iterative reconstruction technique. FINDINGS: The heart is not enlarged. There is no pericardial effusion. Coronary artery calcification and/or stents are present. No aortic aneurysm or dissection is seen. There is minor plaque at the aortic arch. There is no mediastinal or hilar lymphadenopathy. There is multilevel endplate spurring at the spine. There are chronic subpleural parenchymal changes at the anterior chest. There is also some dependent atelectasis. No focal consolidation, pleural effusion or developing soft tissue nodularity is seen. There is mild pneumobilia. The gallbladder is surgically absent. No intrahepatic masses are noted. The spleen is unremarkable. There is minor thickening of the adrenal limbs. The distal pancreas is atrophic. There appears to be previous Whipple procedure. No masses are seen in the area. Bilateral perinephric fibrofatty stranding is noted. The renal nephrograms are symmetric. There is no hydronephrosis. A tiny stone is seen at the upper pole of the left kidney. There is a tiny right renal cyst. There is mild atherosclerotic plaque involving the aorta, iliac and visceral arteries. Mild diastases of the rectus muscles is present along with a tiny periumbilical hernia containing a knuckle of nondistended small bowel. There are a few small nonpathologic retroperitoneal and mesenteric lymph nodes. No ascites is seen. Linear hyperdensity is present within the wall at the lesser curvature of the stomach, unchanged from the prior. This might be a suture line. The small bowel loops are not distended. There is air and stool within the colon, greateron the left. There is no appendiceal inflammation. Degenerative changes are identified at the spine. Images through the pelvis show nondistended small bowel. There is moderate proximal sigmoid stool. No diverticular disease is noted. The prostate is mildprominent with mass effect at the bladder trigone. The urinary bladder wall is slightly thickened for the degree of distention. There is no ascites. Small benign inguinal lymph nodes are present. Degenerative changes are noted at the SI joints with partial ankylosis. CT/CT chest w con IMPRESSION: CHRONIC PARENCHYMAL CHANGES. NO DEVELOPING ADENOPATHY. POSTOPERATIVE CHANGES OF WHIPPLE PROCEDURE. LEFT NEPHROLITHIASIS AND TINY RIGHT RENAL CYST. PROSTATE HYPERTROPHY. Impression dictated by: Dee Cuevas M.D.11/14/2021 4:53 PM Assessment and Plan - TNM Staging [place]02/15/2020: 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 (1) Primary cancer of head of pancreas Upfront Whipple procedure for resectable pancreas cancer (initial biopsies suspicious but nondiagnostic for malignancy). 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 Poor risk features and good performance status (although mild baseline diabetic neuropathy). He consented to FOLFIRINOXadjuvant therapy. General surgery referral for infusion port placement. 04/25/2020: No significant toxicities at followup visit (cycle 1 day 1 was 04/12/2020). We will continue 100% dose FOLFIRINOX and follow closely for hyperglycemia and neuropathy symptoms due to his baseline diabetic neuropathy. 05/25/2020: Patient has increased fatigue, early satiety, and weight loss. Adding Boost at least twice daily and encouraging use of Imodium and Zofran regularly. Okay for cycle 4 today with stable labs. Restaging CT chest abdomenpelvis will be scheduled prior to cycle 6 in 1 month I will see him at that time. 06/20/2020: Worsening fatigue, nausea, poor appetite, and weight loss. Worsening neuropathy. Decrease oxaliplatin by 20%, replete low potassium and magnesium. No evidence of recurrence on CT CAP. Reassess Saturday whether K and Mg returned today normal and OK to resume FOLFIRINOX. F/u 1 week if dose delay, 2 weeks if tx. 07/06/2020: Admitted 07/04/2020 for work-up of sudden onset tachypnea with normal oxygen saturation. CT PE protocol was negative for pulmonary embolism or infiltrate. Lactic acid was negative for sepsis and VBG showed respiratory alkalosis with metabolic acidosis. Blood cultures did show coagulase negative staph from infusion port but negative on peripheral culture. He has severe odynophagia and mouth sore. For now I am hydrating him with 1 L normal saline, holding chemotherapy until resolution of toxicities. We will start vancomycin 1.5 g daily (would calculate to 1 g twice daily but patient does not wish to return twice daily for infusions). We will reassess Saturday to see if he should continue 2 weeks of vancomycin. Also giving IV morphine 2 mg now and redose every 15 to 20 minutes until pain less than 4/10. Adding Diflucan elixir and acyclovir elixir for his odynophagia. Consult to palliative medicine for further titration of outpatient pain medication. Follow-up in 1 week to review symptoms and to determine if he is stable to resume adjuvant FOLFIRINOX therapy with likely 50% dose reduction of 5-FU leucovorin. 07/13/2020: Negative blood cultures and CT PE protocol negative for pulmonary embolism or infiltrate. His dyspnea persists despite levofloxacin as well as acyclovir and nystatin for his prior odynophagia. His pain control is stable. I am sending him for pulmonary evaluation with full PFTs and lung volumes with DLCO as well as trial of albuterol nebulizer with electrolyte repletion today and sending with Eladio HENDERSON. Follow-up with me in 2 weeks and we will consider resuming FOLFIRINOX at 80% dose overall of all drugs at his next follow-up if symptoms remain stable. Otherwise he may stop adjuvant therapy and continue observation only for resected pancreas cancer with anaplastic carcinoma. 07/25/2020: Resumed cycle 7 FOLFIRINOX at 80% dose of all meds--continued nausea, fatigue, and anxiety with subjective dyspnea. WBC 35,000 which may be increased response to Zarxio. No evidence of infection. PFTs consistent with asthma (will address below). Drop Zarxio with day 8 CBC and followup next cycle. Patient declines further dose reduction of FOLFIRINOX but will get Aloxi/Hydration today. 08/10/2020: Stable fatigue and nausea for cycle 7 FOLFIRINOX at 80% dose of all meds--continued nausea, fatigue, and anxiety with subjective dyspnea. WBC now 7000--dropped growth factors to see if this would relieve nausea and dyspnea. Pulmonary follow-up later this month and restaging CT scans in early September. Continue current dose for remaining cycles of FOLFIRINOX. 09/19/2020: 2-week delay for cycle 11 FOLFIRINOX with now 60% dose of oxaliplatinand irinotecan, 80% for all other medications. Stable grade 1 peripheral neuropathy. Hospitalized for suicidal ideation 09/10-11/2020. Symptoms now with improved control since increasing Remeron, adding Effexor, and changing Ativan to Klonopin. He has ongoing follow-up with psychiatry and dyspnea is improved. 10/19/2020: Completed 12 cycle FOLFIRINOX with last cycle 10/03/2020. CA 19-[address] CAP without evidence of recurrence. Followup neuropathy on current antidepressant medications and f/u with palliative medicine (should improve off chemotherapy) Next follow-up with me in 3 months after completion of FOLFIRINOX for exam and restaging tumor marker CA 19-9, sooner prn. We will review survivorship template at next visit. 01/26/2021: Altagracia is seen for routine 3-month follow-up for resected pancreas cancer (T2N0); s/p completion of 12 cycles FOLFIRINOX adjuvant chemotherapy, which concluded on 10/03/2020. Post treatment CT scans showed no evidence of recurrence in October 2020. He is here today for physical exam, ROS, and review of labs (CBC,CMP and CA 19-9). Clinically the patient looks well; he has gained > 30 pounds since his last visit 3 months ago and reports no new constitutional symptoms. Appetite has improved significantly; as well as, taste and fatigue. Hespecifically denies any issues with headaches, fever/chills, recent/recurrent infections, night sweats, weight loss, chest pain, cough, shortness of breath, nausea/vomiting, abdominal pain, diarrhea/constipation, new bony pain, skin rash, lymphadenopathy or lower extremity edema. His only complaint today is continued peripheral neuropathy (hands/feet) - Grade 1 (had peripheral neuropathy at baseline due to long standing diabetes). He is currently taking Gabapentin 400 mg daily with no improvement. --He is noted on laboratories to have slight rise in his CA 19-9 from 26 ---> 40. CBC is relatively unremarkable, with improving anemia. CMP reveals worseningof baseline creatinine and GFR (GFR= 47), normal electrolytes and calcium. He has mild elevation of AST (55) and increased Alkaline phosphate (360) with normal bilirubin. He reports that his PCP has referred him to a buffing machine operator semiautomatic andhe has an upcoming appt in March 2021. 02/22/2021: Due to rising CA 19-9 level, SUZY Barrios ordered CT chest, abdomen/pelvis. She was unable to reach him for phone followup, but when he wascontacted he reported recurrent brief episodes of unexplained epigastric pain. No progression on restaging images, but he will see gastroenterology for EGD. Tramadol 50mg po q6h prn for pain. I sent CBC, CMP, amylase, lipase and will contact him with results. 04/26/2021: Midchest pain--pending stress test and EGD for further evaluation. 05/05/2021: Continued mid chest pain with negative stress test. Contacted GI forboth EGD and push enteroscopy due to small bowel wall thickening on restaging CTchest and pelvis. Otherwise no evidence of recurrence of pancreatic cancer and tumor marker is still normal. We will continue every 3-month surveillance with exam and labs and defer imaging unless rising CEA or new symptoms. Peripheral neuropathy is now well controlled on current regimen but he is following with palliative medicine, consider acupuncture. 06/19/2021: Intermittent, transient episodes of upper abdominal pain and cramping; with some residual numbness ; episodes are very infrequent?he sometimes can go an entire week without having an episode. He has no associateddiarrhea. He has since had normal EGD and relatively normal PFTs following his last appointment. His last CA 19?9 was within normal range. There was no evidence of recurrence on EGD, as last CT scan dated 05/04/2021 showed mild thickening in the small intestine of indeterminate etiology. -We will continue routine follow-up; surveillance for pancreatic cancer. The patient has no other changes in ROS and no new areas of pain. Both his appetiteand weight are stable, of note he has gained approximately 4-5 pounds since his last visit. 08/11/2021: CT abdomen/pelvis at [facility] in mid July showed mesenteric stranding suspicious for recurrence. PET/CT from 08/09/2021 without FDG avidity and CA 19-9normal (14). Images/reports reviewed with patient--negative for recurrence. -Continue every 3 month follow-up with CBC, CMP and CA 19?9; with CT chest/abdomen and pelvis with IV and p.o. contrast prior to next follow-up. Modcomplexity 25 min. 11/15/2021: Restaging CT Chest Abdomen Pelvis without recurrence. 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 F/u CBC, CMP and CA 19-9 only in [address] exam. Defer [address] Chest/Abdomen/Pelvis to 6 months, sooner as needed. Low complexity 25 min f/u visit. (2) Cancer-related pain Recent recurrent epigastric pain/recent chest pain as noted above--completed restaging imaging CT CAP (05/04/2021); negative stress test; and mild emphysema on PFT. Completed EGD with gastroenterology as noted above, on 05/30/2021 with normal findings and no obvious evidence of recurrence. No pain on 11/15/2021 examand no recurrence by imaging. Defer next imaging to 6 months. 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 Stable, chronic neuropathy-on max dose Lyrica 225 mg p.o. twice daily?prescribedby Dr. Dockery; is no longer following palliative medicine on a regular basis. (4) Abnormal kidney function Creatinine stable 1.47 (mildly improved--eGFR 48). Discussed hydration - followup in 3 months. (5) Major depressive disorder Qualifiers: Major depression episode severity: moderate The patient was discharged home in early September after hospitalization for depression and suicidal ideation. He reports symptoms are much improved and anxiety is better since change of medications. He felt hopeless with anhedonia and passive suicidal ideation but no hallucinations. He now has no active suicidal ideation and had not had prior psychiatric hospitalizations, suicide attempts, or family history of this. No use of alcohol or illicit drugs. Following with primary care Dr. Tiki Dockery who is primary prescriber of pain medication. He now has follow-up with Dr. Bee of psychiatry as well. We will continue to follow closely after completion of adjuvant chemotherapy. Denies SI/HI. (6) Diabetes mellitus with neuropathy Qualifiers: Diabetes mellitus type: type 2 Diabetes mellitus halfway insulin use: unspecified emt intermediate insulin use status Qualified Code(s): E11.40 - Type 2 diabetes mellitus with diabetic neuropathy, unspecified Followed by Dr. Dockery--improving control since surgery, completing chemotherapy, and adjustment of insulin. (7) Asthma Qualifiers: Asthma severity: moderate Asthma persistence: persistent Negative evaluation for PE, treated for coag negative staph infection therefore he completed a course of levofloxacin. He is not hypoxic but did have some mildwheezing on exam today persistent dyspnea with exertion. He did not feel improved after albuterol MDI use at home (although only using about once daily). PFTs show reversible obstruction. Encouraged to use albuterol MDI 4 times daily and added Pulmocort MDI twice daily. Following with pulmonary. - Chemo Plan Chemo Plan (Dose, Rate, Freq): Completed adjuvant FOLFOX therapy in late September 2020. Number of Cycles: 12 Goal of Treatment: Curative - Time with Patient Time Spent with Patient (Follow Up Visit): 25 minutes - Low complexity f/u exam,tumor marker, restaging CT Coordination of Care & Counseling Time: Greater than 50% of time spent with patient was for coordination of care (as documented) and cyof-ir-[id number] counseling of patient and/or family. Dictated By: Margaret Delgado MD DD/ [id number] Signed By: <Electronically signed by MD Margaret Delgado> 11/15/21 [id number] [facility] Work Phone: [phone] [phone] Evaluation note* Encounter Date Diagnosis Assessment Notes Treatment Notes Treatment Clinical Notes Oct, Cirrhosis (ICD-10 - K74.60) Oct, History of hepatitis C (ICD-10 - Z86.19) Oct, Pancreatic cancer (ICD-10 - C25.9) WILL ORDER LABS AT THIS TIME. Oct, Fatty liver (ICD-10 - K76.0) PATIENT ENCOURAGED TO START VITAMIN E AND MILK THISTLE [employer] Other 06-22-2022 Evaluation note* Encounter Date Diagnosis Assessment Notes Treatment Notes Treatment Clinical Notes Aug, Cirrhosis (ICD-10 - K74.60) Aug, History of pancreatic cancer (ICD-10 - Z85.07) Aug, History of hepatitis C (ICD-10 - Z86.19) [employer] Other 06-06-2022 Evaluation note* Encounter Date Diagnosis Assessment Notes Treatment Notes Treatment Clinical Notes Aug, Pain in right foot (ICD-10 - M79.671) [employer] Other 06-04-2022 Progress note Author Margaret Delgado [facility] August 12, 2021 5:17pm Note Date/Time August 11, 2021 11:35 am [facility] [place] [address] Hem/Onc Follow Up Note - OP Signed Patient: Altagracia Conway MR#: [id number] : 1955 Acct:[id number] Age/Sex: 65 / M Type: REG RCR Copies to: DO Nasim Allen MD~ Subjective Date/Time of Service: Date of Service: 08/11/2021 Time of Service: 11:34 Chief Complaint: PAtient is here today for a 2 month follow up visit and to go over pet scan. No new concenrs HPI: 08/11/2021: 6 week followup--07/27/2021 CT scan at [facility] was concerning for recurrence (nonspecific mesenteric stranding) therefore he was sent for PET/CT and we are reviewing this today. No change in medical history--denies abdominalpain or distension, mild decrease of stool frequency (now 2-3 times daily) without nausea/emesis and stable weight. PET/CT shows no suspicious uptake and normal CA 19-9 tumor marker 14. No recurrence now 18 months from curative surgery and 12 months from completion of adjuvant therapy. Next f/u [address] CAP and exam/CA 19-9. 06/19/2021: Altagracia is here for routine follow up on surveillance for history of resected T2N0 pancreatic cancer. Clinically, he is stable. He had PFT and EGD done since his last visit to assess his complaints of intermittent epigastric pain and abdominal cramping. On his last CT scan dated 05/04/2021 there was mention of mild wall thickening of proximal small bowel of undetermined significance. He was referred to gastroenterology and underwent EGD on 05/30/2021 with essentially normal findings. The patient was started on dicyclomine 4 times daily and has follow-up with GI in the next month. He reports these episodes as intermittent periods of cramping with no associated diarrhea or obvious evidence of blood in the stool. He reports that he goes several days, even up to a week and does not have any issues with the cramping. Presently, the patient is doing well, reports normal appetite. He has gained approximately4-5 pounds since his last visit. Overall, no other areas of new pain or acute changes. His last CA 19?9 was normal. 05/05/2021: Altagracia is here for 1 week follow-up of restaging CT chest abdomen pelvis. He continues to note recurrent chest discomfort and epigastric pain. No obvious areas of recurrence were seen on CT chest abdomen and pelvis but there was some mild wall thickening of proximal small bowel of undetermined significance. He had a cardiac stress test by primary care which was negative for ischemia and he is to be scheduled for pulmonary function test. He was to see gastroenterology for EGD but this appointment was rescheduled to May for missed appointment. I contacted gastroenterology regarding his proximal small bowel thickening and asked them to add push enteroscopy and possible capsule endoscopy to have EGD. He continues to note peripheral neuropathy which is painful and is followed by palliative medicine, consider acupuncture. His next follow-up with me will be in 3 months or sooner as needed. We will defer imaging to 6 months unless rising tumor markers or new symptoms. 04/26/2021: 2 month followup for surveillance of resected T2N0 pancreatic cancerfollowing adjuvant FOLFIRINOX x 12 cycles. Due for restaging CT Chest/Abdomen/Pelvis. Intermittent epigastric pain, stable weight, normal LFTs. Has mid chest pain without dysphagia or GERD symptoms--pending stress test by primary care and has not yet seen GI for EGD (rescheduled May 2021 due to missed appointment). Agrees to CT CAP for restaging and f/u results in 1 week. 02/22/2021: SUZY Sands attempted to contact Altagracia with CT results but could not reach him after multiple attempts. When he was finally reached, he reported about one week history of recurrent epigastric pain which lasts about 5minutes and takes away my breath . Not associated with eating or at a certain time of day. No change in urine or stool frequency and nausea stable. His CT CAP showed no evidence of metastatic disease. I sent labs to determine if he has worsening LFTs or pancreatitis. If unremarkable, he already has an appointment with GI in March--we will try to have him seen sooner for EGD if possible. Until then he is prescribed Tramadol 50mg po q6h prn (#60, RF0). He may f/u as previously scheduled in 04/2021, sooner prn. 01/26/2021: Altagracia presents for routine 3 month followup for T2N0M0 resected pancreatic cancer to review symptoms and labs (tumor markers). Clinically the patient looks well; he has gained > 30 pounds since his last visit 3 months ago and reports no new constitutional symptoms. Appetite has improved significantly;as well as, fatigue. He specifically denies any issues with headaches, fever/chills, recent/recurrent infections, night sweats, weight loss, chest pain, cough, shortness of breath, nausea/vomiting, abdominal pain, diarrhea/constipation, new bony pain, skin rash, lymphadenopathy or lower extremity edema. His only complaint today is continued peripheral neuropathy (hands/feet) - Grade 1 (had peripheral neuropathy at baseline due to long standing diabetes). He is currently taking Gabapentin 400 mg daily with no improvement. He is noted on laboratories to have slight rise in his CA 19-9 from 26 ---> 40. CBC is relatively unremarkable, with improving anemia. CMP reveals worsening of baseline creatinine and GFR (GFR= 47), normal electrolytes and calcium. He has mild elevation of AST (55) and increased Alkaline phosphate (360) with normal bilirubin. He reports that his PCP has referred him to a buffing machine operator semiautomatic and he hasan upcoming appt in March 2021. 10/19/2020: One month followup to review restaging CT Chest Abdomen and Pelvis with tumor markers after completing all 12 cycles of FOLFIRINOX. Has numbness of bilateral hands all the time but this is not painful for him. No further suicidal ideation and has scheduled followup with his psychiatrist in November. No abdominal pain and regaining weight. Still has bedbug infestation--taking precautions for visits but no visualized bugs on exam today. Reviewed normal tumor marker CA 19-[address] without evidence of recurrence. Continue port flushes every 6 weeks. Next f/u for symptom review and tumor marker in 3 months, sooner if new symptoms. 09/19/2020: Altagracia is here to resume cycle 11-day 1 FOLFIRINOX tomorrow. He has had a dose delay of about 2 weeks for cycle 11 due to hospitalization on 1S 09/10-11/2020 for suicidal ideation. He reported feeling overwhelmed due to multiple psychosocial stressors including his physical illness with difficulty sleeping and depressed mood. He had increased dose of Remeron to 22.5 mg nightly, Effexor added for depression titrating up to 112.5 mg daily, and lorazepam was changed to Klonopin 1 mg 3 times daily. He was deemed safe for discharge home he notes that he feels much improved. He was diagnosed with bedbug infestation last month and we have performed room cleaning precautions. No current pruritusand there was chemotherapy related fatigue and mild peripheral neuropathy has been improved since he had his 2-week delay in therapy. He denies any current dyspnea with exertion. It feels stable to resume his 11th cycle (last 2 cycles)of FOLFIRINOX therapy tomorrow. I will send tumor markers CA 19-9 and coordinate follow-up CT chest abdomen pelvis for restaging in about 1 month prior to his next follow-up. 08/11/2020: Cycle 9 Day 3 FOLFIRINOX--still notes dyspnea on exertion, using inhalers and has pulmonary medicine appointment later this month. Persistent nausea, relieved somewhat with phenergan. Mild peripheral neuropathy lasting a few days. He noted darker stools at triage but no constipation/diarrhea, or BRBPR. Hemoglobin stable. He has stable WBC--no signs of infection. Declines dose reduction due to fear of recurrence. Next f/u with cycle 11, day 1--soonerprn. 07/25/2020: Altagracia resumed FOLFIRINOX cycle 7 one week ago at 80% dose of all meds. He notes persistent dyspnea and does not feel improved with albuterol metered dose inhalers. I offered to delay chemo or reduce dose further, but he fears recurrence and wants to proceed. He requested IV nausea meds and hydration today. I will contact Dr. Dockery and recommend increasing Ativan totwice daily with his Abilify and Cymbalta. His PFTs are consistent with asthma--reversible obstruction. I'm adding budesonide (Pulmcort) twice daily toAlbuterol MDIs. He cannot get an appointment with pulmonary medicine until 08 September. WBC 35,000--some of his anxiety may be due to growth factors. I will drop Zarxio next cycle and I will see him in 2 weeks after cycle 8. 07/13/2020: Altagracia is here for follow-up after delaying cycle 7 chemotherapy over the past week. He was due to be treated yesterday but has continued dyspnea with exertion and wishes to defer therapy another week. He was admitted overnight 1 week ago for his dyspnea and treated with antibiotics as well as acyclovir and nystatin swish and swallow for odynophagia which is slowly improving. He still reports that he has dyspnea with exertion and climbing stairs. On exam today he had some mild wheezing on the right and has not been using MDIs. I informed him that we will send for PFTs with lung volumes and DLCO as well as a trial of albuterol nebulizer in treatment room today and MDIs at home. He also has mild hypokalemia and hypomagnesemia. If he continues to improve steadily we may treat with overall 80% dose of all meds for FOLFIRINOX and I will see him in follow-up in 2 weeks. 07/06/2020: Altagracia would have been scheduled for cycle 7-day 1 on Tuesday 07/04, butthis was held when he presented with significant dyspnea on exertion and was sent to the emergency department. CT PE protocol was negative for pulmonary embolism and oxygen saturation was 98% on room air but he had significant tachypnea. He had no associated cough but reported a mouth sore on the left side of his tongue and severe odynophagia (10/10 pain). He has been using topical viscous lidocaine which is not resolved his symptoms. He was admitted and blood culture through his port showed a presumptive coagulase-negative staphthrough the port and no growth from peripheral culture through the wrist. Also had negative nasopharyngeal panel, negative coronavirus, and negative urine culture. He still has significant tachypnea with respiratory rate about 25 and heart rate 116. Saturation is 99% on room air. --We will continue to hold his chemotherapy. I am treating him with 1 L fluid normal saline, 2 mg IV morphine and will repeat every 15 to 20 minutes until pain less than 4 out of 10, and start vancomycin for 2-week course with dosing per pharmacy. This can be given as an outpatient. He does still have significant leukocytosis which could be due to prior Neulasta and received 1 unit of packed red blood cells yesterday for hospital discharge for hemoglobin 7.7. I will reassess him in 1 week to determine if he can resume chemotherapy. I am also prescribing acyclovir and Diflucan elixirs for his odynophagia. We will put in a palliative medicine consult. 06/20/2020: Altagracia is here for cycle 6-day 1 adjuvant FOLFIRINOX. He has persistent nausea without emesis (added compazine last week), poor appetite, andgeneralized weakness. He lost 4kg in the past 2 weeks. Also notes increased numbness of hands and feet. Potassium (2.7) and Magnesium (1.4) returned low today--hydrating with 1L Normal saline with 40meq KCl IV and 4g MgSO4 IV today. Send home with oral KCl 20meq bid. We will recheck K and Mg Saturday and dose reduce Oxaliplatin by 20% for next cycle. If continued nausea and fatigue--ok to delay therapy one week. Restaging CT without evidence of recurrence 06/15/2020. F/u 1 week if dose delay, 2 weeks if treated Saturday. 05/25/2020: Altagracia is here for cycle 4-day 1 adjuvant FOLFIRINOX. He notes that he has intermittent nausea but is well controlled on his current medications. He notes early satiety and was recently given additional boost to use once daily. He has lost about 4 kg over the last month. 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 Fatigue is stable and hedenies abdominal or back pain. Renal function has proved since starting therapy. He has moderate anemia but does not require transfusion. At this point will continue full dose FOLFIRINOX and restage with CT chest abdomen pelvis prior to cycle 6 as well as CA 19-9. Next follow-up in 1 month with labs. 04/25/2020: Altagracia commenced adjuvant FOLFIRINOX C1D1 on 04/12/2020--tolerated well. Denies fatigue, nausea, constipation/diarrhea, abdominal pain or cold-induced neuropathy. F/u labs unremarkable. He wishes to move infusion to if possible for cycle 2 due to an important business meeting tomorrow (will have to set up [facility] inpatient duckworth eval to d/c 5FU pump Saturday). Otherwise no concerns--f/u with me in one month for tumor markers and exam--continue 100% dose. PREVIOUS HISTORY: This is a 64-year-old male who originally presented to [facility] with nausea, vomiting, diarrhea in October 2019 and was found to have elevated liver enzymes with total bilirubin 12.7, alkaline phosphatase 408, ALT 247, AST 197, lipase 161, white blood cell count of thousand 100, hemoglobin 12.9, platelets 139,000. INR 1.2 and hemoglobin A1c 9.1. MRCP showed extensiveextra and intrahepatic biliary dilatation up to 1.5 cm with a dilated pancreaticduct at 5 mm without discrete mass. ERCP 11/10/[address] Weaver revealed 2 mm stricture in the common bile duct, status post sphincterotomy, brushings, and placement of plastic stent. He was referred for EUS/ERCP on 12/07/[address] Margaret Malcolm with fine-needle biopsy showing atypical cells present, suspicious for carcinoma. At that time the biliary stent was partially occluded and there was a single severe biliary stricture in the lower third of the main bile duct (malignant appearing) status post dilation and brushing also showing atypical ductal cells with another placement of plastic pancreatic stent. His care was further delayed about 1 month when he was unable to be reached by phone to discuss further plan of care. He was seen by gastroenterology at [facility] in late December complaining of increased epigastric pain. He also was noted to have about 20 pounds of weight loss and worsening diabetes. January 10 he had repeat endoscopic ultrasound with a masslike region in the pancreatic head and again brushings showed atypical cells with fine-needle aspiration again with atypical cells suspicious for cancer. CT abdomen pelvis at [facility] 01/22/2020 revealed no distant metastatic disease. IMPRESSION: 1. Pancreatic head mass measuring 2.6 x 2.2 x 3.0 cm, with 180 degree abutment and contour abnormality of the patent SMV, with increasing pancreatic ductal dilatation, highly concerning for pancreatic adenocarcinoma. The superior mesenteric artery and celiac artery are not involved. Malignant involvement of a 9 mm peripancreatic lymph node is not excluded. 2. Status post common bile duct stent placement. Air within the stent, left greater than right pneumobilia, and air within the gallbladder all suggest stent patency. 3. Enlarged prostate. Please correlate with PSA. Due to nondiagnostic biopsies and resectable disease, he consented to upfront Whipple procedure (pancreatoduodenectomy) performed 02/15/2020. He tolerated surgery well and has returned to eating a normal diet. Diabetes is well controlled on his current regimen with insulin managed by Dr. Tiki Dockery at [facility]. 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 She does have some peripheral neuropathy from diabetes but this does not limit his activity. Given high risk features of perineural and lymphovascular invasion as well as anaplastic poorly differentiated histology, we discussed FOLFIRINOX adjuvant therapy which may commence after placement of infusion port in the next 1 to 2 weeks. Today we reviewed chemotherapy counseling for FOLFIRINOX (5-fluorouracil, leucovorin, irinotecan, oxaliplatin every 2 weeks for 12 cycles). Goal of therapy is curative. Common toxicities were reviewed to include myelosuppression, fatigue, nausea, vomiting, constipation, diarrhea, mouth sores, and alopecia. Other toxicities may include pneumonitis, cold-induced neuropathy, cumulative neuropathy, secondary malignancies, hepatic and renal toxicities. The patient signed informed consent and will follow-up as directed. Of note he does have a history of chronic hepatitis C status post treatment withEpclusa with complete response. He reports that his mother had pancreatic cancer and in her 60s as well as a father with pancreatic cancer who at age 82. Brother had lung cancer but no other family history of malignancies. He is an active smoker 1/2 pack/day since age 14 and continues actively smoking. He denies alcohol use quitting about 7 years ago when he was diagnosedwith hepatitis C. 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 DIAGNOSIS: 1. 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 2. Diabetes mellitus, insulin requiring with mild peripheral neuropathy 3. History of hepatitis C status post curative Epclusa therapy around 2013. 4. Family history of mother and father with pancreatic cancer 5. History of anxiety disorder and depression 6. Ongoing tobacco use 7. Unintentional weight loss - Summary of Therapies Summary of Therapies: 1. Whipple's procedure/pancreaticoduodenectomy 02/15/2020. 2. FOLFIRINOX therapy commenced 04/12/2020. FOLFIRINOX: Day 1: Oxaliplatin 85mg/m2 IV over 2 hours; Irinotecan 180mg/m2 IVover 90 minutes; Leucovorin 400mg/m2 IV over 90 minutes; followed by Day 1: Fluorouracil 400mg/m2 IV push; followed by Days 1-2 Fluorouracil 2,400 mg/m2 IV continuous infusion over 46 hours. Repeat cycle every 2 weeks x 12 cycles. --cycle 6 06/22/2020--Will dose reduce oxaliplatin 20% for grade 3 nausea/grade 2neuropathy/renal insufficiency --Cycle 7 07/04/2020--on hold for intractable dyspnea and oral mucositis, 07/13/2020 continuing to hold cycle 7 for another week per patient request for ongoing dyspnea. --Resumed cycle 7 07/20/2020: 80% dose for all meds. He had another 20% dose reduction of oxaliplatin and irinotecan for cycle 10. He had 2-week delay of cycle 11 for psychiatric hospitalization. --Resuming cycle 11 09/20/2020: 60% dose oxaliplatin and irinotecan, 80% dose of 5-fluorouracil/leucovorin. -- Last cycle (12) 10/03/2020. ROS Details: All systems reviewed & no additional complaints except as documented Subjective/ROS - Narrative: CONSTITUTIONAL: Positive for mild fatigue--PS 1, negative for fever or night sweats. Recurrent anxiety and psychological distress--improved since hospital stay in early September 2020 as per HPI, resumed normal diet. HEAD AND NECK: Negative for changes in hearing and vision. No oral ulcers. No change in voice, nasal congestion and nasal drainage. Improved taste. ResolvedOdynophagia. PULMONARY: Positive for noncardiac chest pain as per HPI, negative for cough andpositive for mild dyspnea--improving. No pneumonia or PE on chest CT in 01/2021. CARDIOVASCULAR: Negative for claudication and irregular heartbeat/palpitations. + mid chest pain- intermittent - had negative stress test 04/2021. GASTROINTESTINAL: Positive for intermittent epigastric abdominal pain as per HPI(well healed postop Whipple procedure). Positive for early satiety with decreased appetite but stable weight over the last 3 months. Stable nausea without vomiting or constipation. Positive for intermittent diarrhea (improving), not consistently using Imodium. GENITOURINARY: Negative for dysuria and hematuria. ENDOCRINE: Negative for cold intolerance and heat intolerance. Diabetes mellitus about 10 years, worsening control prior to pancreas cancer diagnosis. Now insulin dependent. CENTRAL NERVOUS SYSTEM: Negative for gait disturbance and headache. + peripheral neuropathy hands and feet--stable, chronic. PSYCHIATRIC: Improvement of prior anxiety/depression--resolution of prior suicidal ideation since hospital stay for early September 2021. DERMATOLOGICAL: Negative for pruritus and rash. Negative for suspicious skin lesions. Prior bedbugs--isolation precautions. No visible infestation today. MUSCULOSKELETAL: Negative for back pain and bone/joint symptoms. HEMATOLOGICAL: Negative for bleeding and easy bruising. Positive for 1 unit redblood cell transfusion early July 2020. Negative for history of thromboembolic disease ALLERGY: Negative for environmental allergies and food allergies. PMFSH - History Attestation statement: The following information was validated with the patient. Source: Old Records Reviewed - Medical History Medical History: Medical History (Last Reviewed 08/12/21 @ 17:08 by Margaret Delgado MD) Amputated toe of right foot Anxiety Blockage of a bile duct liver stents placed d/t blockage Depression Diabetes mellitus Family history of pancreatic cancer History of hepatitis C Hyperlipemia Hypertension Neuropathy Odynophagia Pancreatic cancer - Surgical History Surgical History: Surgical History (Last Reviewed 08/12/21 @ 17:08 by Margaret Delgado MD) History of cholecystectomy done at time of whipple History of gastrointestinal surgery whipple procedure 02/2020 - Family History Family History: Family History (Last Reviewed 08/12/21 @ 17:08 by Margaret Delgado MD) Father Pancreatic cancer Mother Pancreatic cancer - Social History Smoking Status: Current every day smoker Tobacco Type: cigarettes Substance Use Type: None Substance Abuse Comment: states I smoke marijuana every now and then Home Medications & Allergies Allergies No Known Allergies Allergy (Verified 08/11/21 11:30) Home Medications cholecalciferol (vitamin D3) 25 mcg (1,000 unit) tablet 50 mcg PO DAILY #30 tab 09/16/20 [Rx Confirmed 07/07/21] hydrochlorothiazide 25 mg tablet 25 mg PO DAILY 15 Days #15 tab 09/16/20 [Rx Confirmed 07/07/21] tramadol 50 mg tablet 50 mg PO Q6H PRN 30 Days #60 tab 02/22/21 [Rx Confirmed 07/07/21] pregabalin 150 mg capsule 150 mg PO BID 06/19/21 [History Confirmed 07/07/21] amlodipine 5 mg tablet 5 mg PO DAILY 07/07/21 [History Confirmed 07/07/21] buspirone 30 mg tablet 30 mg PO BID 07/07/21 [History Confirmed 07/07/21] dicyclomine 20 mg tablet 20 mg PO DAILY 07/07/21 [History Confirmed 07/07/21] insulin degludec 100 unit/mL (3 mL) subcutaneous pen (Tresiba FlexTouch U-100 insulin) 18 unit SUBCUT DAILY 07/07/21 [History Confirmed 07/07/21] insulin lispro 100 unit/mL subcutaneous pen (Humalog KwikPen (U-100) Insulin) 8 unit SUBCUT TID 07/07/21 [History Confirmed 07/07/21] levomilnacipran 20 mg capsule,24 hr,extended release (Fetzima) 20 mg PO DAILY 07/07/21 [History Confirmed 07/07/21] lisinopril 5 mg tablet 5 mg PO DAILY 07/07/21 [History Confirmed 07/07/21] lorazepam 1 mg tablet (Ativan) 1 mg PO TID 07/07/21 [History Confirmed 07/07/21] Objective - Height/Weight Height/Weight: Height 6 ft 2 in Weight 95.708 kg BSA for Today's Weight 1.93 - Vital Signs Vital Signs: 08/11/21 11:30 Temperature 98.0 F Pulse Rate [Left Brachial] 101 H Respiratory Rate 16 Blood Pressure [Left Arm] 149/83 H 02 Sat by Pulse Oximetry 97 - Pain Tongue Pain Intensity: 0 - Distress Screening Distress Screen Results: RN Distress Screening Start: 04/11/20 13:45 Freq: Q30D Status: Active Protocol: Document 07/07/20 10:25 MR (Rec: 07/07/20 10:28 MR [id number]) Distress Screening Distress Score: 8 Day to Day Concerns Insurance,Money Physical Concerns Pain,Feeling tired or a lack of energy,Trouble Sleeping Emotional Concerns Depression,Loss of interest in usual activities,Nervousness, Sadness,How my body looks, Feeling hopeless,Feeling uncertain about the future Spiritual or Hindu Concerns: Relating to a higher being Distress Screening Total 8 Distress score of 4 or more discussed Yes with patient? Distress screening follow up: DEBRA Camp patient navigator and Cathryn patient navigator notified. pt refusing assistance at this time. Physical Exam Narrative: CONSTITUTIONAL: The patient is mildly disheveled, in no respiratory distress. He is fatigued and mildly cachectic. HEAD / FACE: Normocephalic. EYES: Pupils are equal and reactive to light. Conjunctivae and lids are benign in appearance. Ocular movement intact. EARS: Hearing grossly intact. NOSE / MOUTH / THROAT: Nose, mouth, tongue and oropharynx--No oral ulcers of thrush today. NECK / THYROID: Neck is supple. Thyroid is symmetrical, without thyromegaly, masses or palpable nodules. LYMPHATIC: No palpable cervical, supraclavicular, axillary, or inguinal adenopathy. RESPIRATORY: Normal to inspection. Lungs clear to auscultation and percussion. CARDIOVASCULAR: Regular rate and rhythm. No murmurs, gallops, or rubs. VASCULAR: Carotid, radial, femoral and pedal pulses present bilaterally. No bruits. ABDOMEN: Bowel sounds normoactive. Soft, mild epigastric tenderness and non- distended (not changed from prior exams). No hepatosplenomegaly. No masses. Well healed incisions from Whipple procedure. GENITOURINARY: No CVA tenderness. No suprapubic fullness or tenderness. No groinadenopathy. No evidence of hernias. INTEGUMENTARY: The skin is unremarkable. No rashes. No suspicious lesions. No visible bedbugs today on exam. BACK / SPINE: The back is nontender. No stepoff deformity. MUSCULOSKELETAL: Normal musculature, no joint deformities or abnormalities, normal range of motion for all four extremities. EXTREMITIES: No edema, cyanosis or clubbing. No Kyle sign. NEUROLOGICAL: Alert and oriented. Cranial nerves intact. No gross motor or sensory deficits. PSYCHIATRIC: Calmer and less depressed mood on visit today, no SI/HI. - ECOG Performance Status ECOG Score: 1 Results - Labs Labs: Diagram of Most Recent CBC and CMP 08/09/21 09:45 08/09/21 09:45 Labs - Last 7 Days 08/09/21 09:47: POC Glucose 138 08/09/21 09:45: CA 19-9 Antigen 14 08/09/21 09:45: PHA Creatinine Clear 51.58, Sodium 134 L, Potassium 4.3, Chloride 103, Carbon Dioxide 20.6 L, BUN 40 H, Creatinine 1.66 H, Est GFR ( Amer) 51, Est GFR (Non-Af Amer) 42, Glucose 128 H, Calcium 9.5, Total Bilirubin 0.5, AST 36, ALT 33, Alkaline Phosphatase 117 H, Total Protein 7.8, Albumin 3.9, Globulin 3.9, Albumin/Globulin Ratio 1.0 08/09/21 09:45: Corrected WBC 9.3, Uncorrected WBC Count 9.3, RBC 4.17, Hgb 12.7L, Hct 37.4 L, MCV 89.8, MCH 30.4, MCHC 33.8, RDW 13.8, Plt Count 223, MPV 9.2, Neut % (Auto) 58.9, Lymph % (Auto) 29.0, Alfalfa % (Auto) 6.3, Eos % (Auto) 4.8, Baso % (Auto) 1.0, Neut # (Auto) 5.5, Lymph # (Auto) 2.7, Alfalfa # (Auto) 0.6, Eos# (Auto) 0.4, Baso # (Auto) 0.1, Nucleated RBC % (auto) 0.0 - Impressions PET tumor init tx strat sb-mt 08/09/2021 10:16 AM SIGNS AND SYMPTOMS: pancreatic mass on CT density lung base, worsesrning pain R/O recurrence PROTOCOL: Low-dose CT from skull base to mid thigh was performed. PET imaging was performed from skull base to mid thigh after intravenous radiotracer administration. After attenuation correction of PET imaging, fused PET CT imageswere generated and reconstructed in axial, sagittal, and coronal plane. COMPARISON: CT of the chest abdomen and pelvis from 05/04/2021 RADIOPHARMACEUTICAL: 12.3 mCi of intravenous fluorine 18 FDG BLOOD GLUCOSE: 138 mg/dL FINDINGS: Postsurgical changes consistent with prior Whipple procedure are redemonstrated.Chronic subpleural interstitial changes are redemonstrated in the periphery of the lung parenchyma without accompanying abnormal FDG avidity. No abnormal FDG activity is noted in the abdomen or pelvis. Physiologic radiotracer accumulation is noted in the brain parenchyma, the myocardium, the liver and spleen, kidneys, and the bladder. There is also physiologic radiotracer accumulation within the wall of the bowel. PET/PET tumor init tx strat sb-mt IMPRESSION: No abnormal radiotracer accumulation is noted to suggest recurrent/residual malignancy. Postsurgical changes are noted consistent with prior Whipple procedure. 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 (1) Primary cancer of head of pancreas Upfront Whipple procedure for resectable pancreas cancer (initial biopsies suspicious but nondiagnostic for malignancy). 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 Poor risk features and good performance status (although mild baseline diabetic neuropathy). He consented to FOLFIRINOXadjuvant therapy. General surgery referral for infusion port placement. 04/25/2020: No significant toxicities at followup visit (cycle 1 day 1 was 04/12/2020). We will continue 100% dose FOLFIRINOX and follow closely for hyperglycemia and neuropathy symptoms due to his baseline diabetic neuropathy. 05/25/2020: Patient has increased fatigue, early satiety, and weight loss. Adding Boost at least twice daily and encouraging use of Imodium and Zofran regularly. Okay for cycle 4 today with stable labs. Restaging CT chest abdomenpelvis will be scheduled prior to cycle 6 in 1 month I will see him at that time. 06/20/2020: Worsening fatigue, nausea, poor appetite, and weight loss. Worsening neuropathy. Decrease oxaliplatin by 20%, replete low potassium and magnesium. No evidence of recurrence on CT CAP. Reassess Saturday whether K andMg returned today normal and OK to resume FOLFIRINOX. F/u 1 week if dose delay,2 weeks if tx. 07/06/2020: Admitted 07/04/2020 for work-up of sudden onset tachypnea with normal oxygen saturation. CT PE protocol was negative for pulmonary embolism or infiltrate. Lactic acid was negative for sepsis and VBG showed respiratory alkalosis with metabolic acidosis. Blood cultures did show coagulase negative staph from infusion port but negative on peripheral culture. He has severe odynophagia and mouth sore. For now I am hydrating him with 1 L normal saline, holding chemotherapy until resolution of toxicities. We will start vancomycin 1.5 g daily (would calculate to 1 g twice daily but patient does not wish to return twice daily for infusions). We will reassess Saturday to see if he should continue 2 weeks of vancomycin. Also giving IV morphine 2 mg now and redose every 15 to 20 minutes until pain less than 4/10. Adding Diflucan elixir and acyclovir elixir for his odynophagia. Consult to palliative medicine for further titration of outpatient pain medication. Follow-up in 1 week to review symptoms and to determine if he is stable to resume adjuvant FOLFIRINOX therapy with likely 50% dose reduction of 5-FU leucovorin. 07/13/2020: Negative blood cultures and CT PE protocol negative for pulmonary embolism or infiltrate. His dyspnea persists despite levofloxacin as well as acyclovir and nystatin for his prior odynophagia. His pain control is stable. I am sending him for pulmonary evaluation with full PFTs and lung volumes with DLCO as well as trial of albuterol nebulizer with electrolyte repletion today and sending with Eladio HENDERSON. Follow-up with me in 2 weeks and we will consider resuming FOLFIRINOX at 80% dose overall of all drugs at his next follow-up if symptoms remain stable. Otherwise he may stop adjuvant therapy and continue observation only for resected pancreas cancer with anaplastic carcinoma. 07/25/2020: Resumed cycle 7 FOLFIRINOX at 80% dose of all meds--continued nausea, fatigue, and anxiety with subjective dyspnea. WBC 35,000 which may be increased response to Zarxio. No evidence of infection. PFTs consistent with asthma (will address below). Drop Zarxio with day 8 CBC and followup next cycle. Patient declines further dose reduction of FOLFIRINOX but will get Aloxi/Hydration today. 08/10/2020: Stable fatigue and nausea for cycle 7 FOLFIRINOX at 80% dose of all meds--continued nausea, fatigue, and anxiety with subjective dyspnea. WBC now 7000--dropped growth factors to see if this would relieve nausea and dyspnea. Pulmonary follow-up later this month and restaging CT scans in early September. Continue current dose for remaining cycles of FOLFIRINOX. 09/19/2020: 2-week delay for cycle 11 FOLFIRINOX with now 60% dose of oxaliplatinand irinotecan, 80% for all other medications. Stable grade 1 peripheral neuropathy. Hospitalized for suicidal ideation 09/10-11/2020. Symptoms now with improved control since increasing Remeron, adding Effexor, and changing Ativan to Klonopin. He has ongoing follow-up with psychiatry and dyspnea is improved. 10/19/2020: Completed 12 cycle FOLFIRINOX with last cycle 10/03/2020. CA 19-[address] CAP without evidence of recurrence. Followup neuropathy on current antidepressant medications and f/u with palliative medicine (should improve off chemotherapy) Next follow-up with me in 3 months after completion of FOLFIRINOX for exam and restaging tumor marker CA 19-9, sooner prn. We will review survivorship template at next visit. 01/26/2021: Altagracia is seen for routine 3-month follow-up for resected pancreas cancer (T2N0); s/p completion of 12 cycles FOLFIRINOX adjuvant chemotherapy, which concluded on 10/03/2020. Post treatment CT scans showed no evidence of recurrence in October 2020. He is here today for physical exam, ROS, and review of labs (CBC,CMP and CA 19-9). Clinically the patient looks well; he has gained > 30 pounds since his last visit 3 months ago and reports no new constitutional symptoms. Appetite has improved significantly; as well as, taste and fatigue. Hespecifically denies any issues with headaches, fever/chills, recent/recurrent infections, night sweats, weight loss, chest pain, cough, shortness of breath, nausea/vomiting, abdominal pain, diarrhea/constipation, new bony pain, skin rash, lymphadenopathy or lower extremity edema. His only complaint today is continued peripheral neuropathy (hands/feet) - Grade 1 (had peripheral neuropathy at baseline due to long standing diabetes). He is currently taking Gabapentin 400 mg daily with no improvement. --He is noted on laboratories to have slight rise in his CA 19-9 from 26 ---> 40. CBC is relatively unremarkable, with improving anemia. CMP reveals worseningof baseline creatinine and GFR (GFR= 47), normal electrolytes and calcium. He has mild elevation of AST (55) and increased Alkaline phosphate (360) with normal bilirubin. He reports that his PCP has referred him to a buffing machine operator semiautomatic andhe has an upcoming appt in March 2021. 02/22/2021: Due to rising CA 19-9 level, SUZY Barrios ordered CT chest, abdomen/pelvis. She was unable to reach him for phone followup, but when he wascontacted he reported recurrent brief episodes of unexplained epigastric pain. No progression on restaging images, but he will see gastroenterology for EGD. Tramadol 50mg po q6h prn for pain. I sent CBC, CMP, amylase, lipase and will contact him with results. 04/26/2021: Midchest pain--pending stress test and EGD for further evaluation. Due for CT Chest/Abdomen/Pelvis--ordered this week and will followup results in one week. Tumor marker CA 19-9 24 (stable). If no recurrence, will continue every 3 month surveillance. 05/05/2021: Continued mid chest pain with negative stress test. Contacted GI forboth EGD and push enteroscopy due to small bowel wall thickening on restaging CTchest and pelvis. Otherwise no evidence of recurrence of pancreatic cancer and tumor marker is still normal. We will continue every 3-month surveillance with exam and labs and defer imaging unless rising CEA or new symptoms. Peripheral neuropathy is now well controlled on current regimen but he is following with palliative medicine, consider acupuncture. 06/19/2021: Intermittent, transient episodes of upper abdominal pain and cramping; with some residual numbness ; episodes are very infrequent?he sometimes can go an entire week without having an episode. He has no associated diarrhea. Hehas since had normal EGD and relatively normal PFTs following his last appointment. His last CA 19?9 was within normal range. There was no evidence of recurrence on EGD, as last CT scan dated 05/04/2021 showed mild thickening in the small intestine of indeterminate etiology. -We will continue routine follow-up; surveillance for pancreatic cancer. The patient has no other changes in ROS and no new areas of pain. Both his appetiteand weight are stable, of note he has gained approximately 4-5 pounds since his last visit. 08/11/2021: CT abdomen/pelvis at [facility] in mid July showed mesenteric stranding suspicious for recurrence. PET/CT from 08/09/2021 without FDG avidity and CA 19-9normal (14). Images/reports reviewed with patient--negative for recurrence. -Continue every 3 month follow-up with CBC, CMP and CA 19?9; with CT chest/abdomen and pelvis with IV and p.o. contrast prior to next follow-up. Modcomplexity 25 min. (2) Cancer-related pain Recent recurrent epigastric pain/recent chest pain as noted above--completed restaging imaging CT CAP (05/04/2021); negative stress test; and mild emphysema on PFT. Completed EGD with gastroenterology as noted above, on 05/30/2021 with normal findings and no obvious evidence of recurrence. 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 Stable, chronic neuropathy-on max dose Lyrica 225 mg p.o. twice daily?prescribedby Dr. Dockery; is no longer following palliative medicine on a regular basis. (4) Abnormal kidney function Creatinine stable 1.66 (similar to 04/2021). Discussed hydration - follow up in 3 months. (5) Major depressive disorder Qualifiers: Major depression episode severity: moderate The patient was discharged home in early September after hospitalization for depression and suicidal ideation. He reports symptoms are much improved and anxiety is better since change of medications. He felt hopeless with anhedonia and passive suicidal ideation but no hallucinations. He now has no active suicidal ideation and had not had prior psychiatric hospitalizations, suicide attempts, or family history of this. No use of alcohol or illicit drugs. Following with primary care Dr. Tiki Dockery who is primary prescriber of pain medication. He now has follow-up with Dr. Bee of psychiatry as well. We will continue to follow closely after completion of adjuvant chemotherapy. Denies SI/HI. (6) Diabetes mellitus with neuropathy Qualifiers: Diabetes mellitus type: type 2 Diabetes mellitus halfway insulin use: unspecified halfway insulin use status Qualified Code(s): E11.40 - Type 2 diabetes mellitus with diabetic neuropathy, unspecified Followed by Dr. Dockery--improving control since surgery, completing chemotherapy, and adjustment of insulin. (7) Asthma Qualifiers: Asthma severity: moderate Asthma persistence: persistent Negative evaluation for PE, treated for coag negative staph infection therefore he completed a course of levofloxacin. He is not hypoxic but did have some mildwheezing on exam today persistent dyspnea with exertion. He did not feel improved after albuterol MDI use at home (although only using about once daily). PFTs show reversible obstruction. Encouraged to use albuterol MDI 4 times daily and added Pulmocort MDI twice daily. Following with pulmonary. - Chemo Plan Chemo Plan (Dose, Rate, Freq): Completed adjuvant FOLFOX therapy in late September 2020. Number of Cycles: 12 Goal of Treatment: Curative - Time with Patient Time Spent with Patient (Follow Up Visit): 25 minutes Coordination of Care & Counseling Time: Greater than 50% of time spent with patient was for coordination of care (as documented) and [id number] counseling of patient and/or family. Dictated By: Margaret Delgado MD DD/ [id number] Signed By: <Electronically signed by MD Margaret Delgado> 08/12/21 [address] [facility] Work Phone: [phone]) 928-617505-09-2022 Evaluation note* Encounter Date Diagnosis Assessment Notes Treatment Notes Treatment Clinical Notes July, Pain in right foot (ICD-10 - M79.671) 65 year old male here for follow up for chronic pain. He voices complaints of pain to bilateral feet secondary to neuropathy, worse at night. He continues to follow up with Dr Luciano and states he is waiting on prescription shoes. At his last office visit it was discussed to consider Qutenza however this was too costly for him. I will order Voltaren gel as needed, he is encouraged to poultry picking machine tender Lidocaine over the counter creams. I will also add Amitriptyline 10-20 mg at HS. July, Other specified diabetes mellitus with diabetic neuropathy, unspecified (ICD-10 - E13.40) Continue Lyrica as prescribed by his PCP. July, Other chronic pain (ICD-10 - G89.29) Continue with current treatment plan. [employer] Other 04-11-2022 Progress note Author [facility] June 19, 2021 2:09pm Note Date/Time June 19, 2021 1:0 2pm [facility] [place] [place] [address] Hem/Onc Follow Up Note - OP Signed Patient: Altagracia Conway MR#: [id number] : 1955 Acct:[id number] Age/Sex: 65 / M Type: REG RCR Copies to: DO Nasim Allen MD~ Subjective Date/Time of Service: Date of Service: 06/19/2021 Time of Service: 13:02 Chief Complaint: Patient is here today d/t his chest pain. He states episodes come and go. He reports that he gets a feeling of swelling and pain in his chestand whole body goes numb. It lasts for about 5-10 minutes HPI: 06/19/2021: Altagracia is here for routine follow up on surveillance for history of resected T2N0 pancreatic cancer. Clinically, he is stable. He had PFT and EGD done since his last visit to assess his complaints of intermittent epigastric pain and abdominal cramping. On his last CT scan dated 05/04/2021 there was mention of mild wall thickening of proximal small bowel of undetermined significance. He was referred to gastroenterology and underwent EGD on 05/30/2021 with essentially normal findings. The patient was started on dicyclomine 4 times daily and has follow-up with GI in the next month. He reports these episodes as intermittent periods of cramping with no associated diarrhea or obvious evidence of blood in the stool. He reports that he goes several days, even up to a week and does not have any issues with the cramping. Presently, the patient is doing well, reports normal appetite. He has gained approximately 4-5 pounds since his last visit. Overall, no other areas of new pain or acute changes. His last CA 19?9 was normal. 05/05/2021: Altagracia is here for 1 week follow-up of restaging CT chest abdomen pelvis. He continues to note recurrent chest discomfort and epigastric pain. No obvious areas of recurrence were seen on CT chest abdomen and pelvis but there was some mild wall thickening of proximal small bowel of undetermined significance. He had a cardiac stress test by primary care which was negative for ischemia and he is to be scheduled for pulmonary function test. He was to see gastroenterology for EGD but this appointment was rescheduled to May for missed appointment. I contacted gastroenterology regarding his proximal small bowel thickening and asked them to add push enteroscopy and possible capsule endoscopy to have EGD. He continues to note peripheral neuropathy which is painful and is followed by palliative medicine, consider acupuncture. His next follow-up with me will be in 3 months or sooner as needed. We will defer imaging to 6 months unless rising tumor markers or new symptoms. 04/26/2021: 2 month followup for surveillance of resected T2N0 pancreatic cancerfollowing adjuvant FOLFIRINOX x 12 cycles. Due for restaging CT Chest/Abdomen/Pelvis. Intermittent epigastric pain, stable weight, normal LFTs. Has mid chest pain without dysphagia or GERD symptoms--pending stress test by primary care and has not yet seen GI for EGD (rescheduled May 2021 due to missed appointment). Agrees to CT CAP for restaging and f/u results in 1 week. 02/22/2021: SUZY Sands attempted to contact Altagracia with CT results but could not reach him after multiple attempts. When he was finally reached, he reported about one week history of recurrent epigastric pain which lasts about 5minutes and takes away my breath . Not associated with eating or at a certain time of day. No change in urine or stool frequency and nausea stable. His CT CAP showed no evidence of metastatic disease. I sent labs to determine if he has worsening LFTs or pancreatitis. If unremarkable, he already has an appointment with GI in March--we will try to have him seen sooner for EGD if possible. Until then he is prescribed Tramadol 50mg po q6h prn (#60, RF0). He may f/u as previously scheduled in 04/2021, sooner prn. 01/26/2021: Altagracia presents for routine 3 month followup for T2N0M0 resected pancreatic cancer to review symptoms and labs (tumor markers). Clinically the patient looks well; he has gained > 30 pounds since his last visit 3 months ago and reports no new constitutional symptoms. Appetite has improved significantly;as well as, fatigue. He specifically denies any issues with headaches, fever/chills, recent/recurrent infections, night sweats, weight loss, chest pain, cough, shortness of breath, nausea/vomiting, abdominal pain, diarrhea/constipation, new bony pain, skin rash, lymphadenopathy or lower extremity edema. His only complaint today is continued peripheral neuropathy (hands/feet) - Grade 1 (had peripheral neuropathy at baseline due to long standing diabetes). He is currently taking Gabapentin 400 mg daily with no improvement. He is noted on laboratories to have slight rise in his CA 19-9 from 26 ---> 40. CBC is relatively unremarkable, with improving anemia. CMP reveals worsening of baseline creatinine and GFR (GFR= 47), normal electrolytes and calcium. He has mild elevation of AST (55) and increased Alkaline phosphate (360) with normal bilirubin. He reports that his PCP has referred him to a buffing machine operator semiautomatic and he hasan upcoming appt in March 2021. 10/19/2020: One month followup to review restaging CT Chest Abdomen and Pelvis with tumor markers after completing all 12 cycles of FOLFIRINOX. Has numbness of bilateral hands all the time but this is not painful for him. No further suicidal ideation and has scheduled followup with his psychiatrist in November. No abdominal pain and regaining weight. Still has bedbug infestation--taking precautions for visits but no visualized bugs on exam today. Reviewed normal tumor marker CA 19-[address] without evidence of recurrence. Continue port flushes every 6 weeks. Next f/u for symptom review and tumor marker in 3 months, sooner if new symptoms. 09/19/2020: Altagracia is here to resume cycle 11-day 1 FOLFIRINOX tomorrow. He has had a dose delay of about 2 weeks for cycle 11 due to hospitalization on 1S 09/10-11/2020 for suicidal ideation. He reported feeling overwhelmed due to multiple psychosocial stressors including his physical illness with difficulty sleeping and depressed mood. He had increased dose of Remeron to 22.5 mg nightly, Effexor added for depression titrating up to 112.5 mg daily, and lorazepam was changed to Klonopin 1 mg 3 times daily. He was deemed safe for discharge home he notes that he feels much improved. He was diagnosed with bedbug infestation last month and we have performed room cleaning precautions. No current pruritusand there was chemotherapy related fatigue and mild peripheral neuropathy has been improved since he had his 2-week delay in therapy. He denies any current dyspnea with exertion. It feels stable to resume his 11th cycle (last 2 cycles)of FOLFIRINOX therapy tomorrow. I will send tumor markers CA 19-9 and coordinate follow-up CT chest abdomen pelvis for restaging in about 1 month prior to his next follow-up. 08/11/2020: Cycle 9 Day 3 FOLFIRINOX--still notes dyspnea on exertion, using inhalers and has pulmonary medicine appointment later this month. Persistent nausea, relieved somewhat with phenergan. Mild peripheral neuropathy lasting a few days. He noted darker stools at triage but no constipation/diarrhea, or BRBPR. Hemoglobin stable. He has stable WBC--no signs of infection. Declines dose reduction due to fear of recurrence. Next f/u with cycle 11, day 1--soonerprn. 07/25/2020: Altagracia resumed FOLFIRINOX cycle 7 one week ago at 80% dose of all meds. He notes persistent dyspnea and does not feel improved with albuterol metered dose inhalers. I offered to delay chemo or reduce dose further, but he fears recurrence and wants to proceed. He requested IV nausea meds and hydration today. I will contact Dr. Dockery and recommend increasing Ativan totwice daily with his Abilify and Cymbalta. His PFTs are consistent with asthma--reversible obstruction. I'm adding budesonide (Pulmcort) twice daily toAlbuterol MDIs. He cannot get an appointment with pulmonary medicine until 08 September. WBC 35,000--some of his anxiety may be due to growth factors. I will drop Zarxio next cycle and I will see him in 2 weeks after cycle 8. 07/13/2020: Altagracia is here for follow-up after delaying cycle 7 chemotherapy over the past week. He was due to be treated yesterday but has continued dyspnea with exertion and wishes to defer therapy another week. He was admitted overnight 1 week ago for his dyspnea and treated with antibiotics as well as acyclovir and nystatin swish and swallow for odynophagia which is slowly improving. He still reports that he has dyspnea with exertion and climbing stairs. On exam today he had some mild wheezing on the right and has not been using MDIs. I informed him that we will send for PFTs with lung volumes and DLCO as well as a trial of albuterol nebulizer in treatment room today and MDIs at home. He also has mild hypokalemia and hypomagnesemia. If he continues to improve steadily we may treat with overall 80% dose of all meds for FOLFIRINOX and I will see him in follow-up in 2 weeks. 07/06/2020: Altagracia would have been scheduled for cycle 7-day 1 on Tuesday 07/04, butthis was held when he presented with significant dyspnea on exertion and was sent to the emergency department. CT PE protocol was negative for pulmonary embolism and oxygen saturation was 98% on room air but he had significant tachypnea. He had no associated cough but reported a mouth sore on the left side of his tongue and severe odynophagia (10/10 pain). He has been using topical viscous lidocaine which is not resolved his symptoms. He was admitted and bloodculture through his port showed a presumptive coagulase-negative staph through the port and no growth from peripheral culture through the wrist. Also had negative nasopharyngeal panel, negative coronavirus, and negative urine culture. He still has significant tachypnea with respiratory rate about 25 and heart rate 116. Saturation is 99% on room air. --We will continue to hold his chemotherapy. I am treating him with 1 L fluid normal saline, 2 mg IV morphine and will repeat every 15 to 20 minutes until pain less than 4 out of 10, and start vancomycin for 2-week course with dosing per pharmacy. This can be given as an outpatient. He does still have significant leukocytosis which could be due to prior Neulasta and received 1 unit of packed red blood cells yesterday for hospital discharge for hemoglobin 7.7. I will reassess him in 1 week to determine if he can resume chemotherapy. I am also prescribing acyclovir and Diflucan elixirs for his odynophagia. We will put in a palliative medicine consult. 06/20/2020: Altagracia is here for cycle 6-day 1 adjuvant FOLFIRINOX. He has persistent nausea without emesis (added compazine last week), poor appetite, andgeneralized weakness. He lost 4kg in the past 2 weeks. Also notes increased numbness of hands and feet. Potassium (2.7) and Magnesium (1.4) returned low today--hydrating with 1L Normal saline with 40meq KCl IV and 4g MgSO4 IV today. Send home with oral KCl 20meq bid. We will recheck K and Mg Saturday and dose reduce Oxaliplatin by 20% for next cycle. If continued nausea and fatigue--ok to delay therapy one week. Restaging CT without evidence of recurrence 06/15/2020. F/u 1 week if dose delay, 2 weeks if treated Saturday. 05/25/2020: Altagracia is here for cycle 4-day 1 adjuvant FOLFIRINOX. He notes that he has intermittent nausea but is well controlled on his current medications. He notes early satiety and was recently given additional boost to use once daily. He has lost about 4 kg over the last month. 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 Fatigue is stable and hedenies abdominal or back pain. Renal function has proved since starting therapy. He has moderate anemia but does not require transfusion. At this point will continue full dose FOLFIRINOX and restage with CT chest abdomen pelvis prior to cycle 6 as well as CA 19-9. Next follow-up in 1 month with labs. 04/25/2020: Altagracia commenced adjuvant FOLFIRINOX C1D1 on 04/12/2020--tolerated well. Denies fatigue, nausea, constipation/diarrhea, abdominal pain or cold-induced neuropathy. F/u labs unremarkable. He wishes to move infusion to if possible for cycle 2 due to an important business meeting tomorrow (will have to set up [facility] inpatient duckworth eval to d/c 5FU pump Saturday). Otherwise no concerns--f/u with me in one month for tumor markers and exam--continue 100% dose. PREVIOUS HISTORY: This is a 64-year-old male who originally presented to [facility] with nausea, vomiting, diarrhea in October 2019 and was found to have elevated liver enzymes with total bilirubin 12.7, alkaline phosphatase 408, ALT 247, AST 197, lipase 161, white blood cell count of thousand 100, hemoglobin 12.9, platelets 139,000. INR 1.2 and hemoglobin A1c 9.1. MRCP showed extensiveextra and intrahepatic biliary dilatation up to 1.5 cm with a dilated pancreaticduct at 5 mm without discrete mass. ERCP 11/10/[address] Weaver revealed 2 mm stricture in the common bile duct, status post sphincterotomy, brushings, and placement of plastic stent. He was referred for EUS/ERCP on 12/07/[address] Margaret Malcolm with fine-needle biopsy showing atypical cells present, suspicious for carcinoma. At that time the biliary stent was partially occluded and there was a single severe biliary stricture in the lower third of the main bile duct (malignant appearing) status post dilation and brushing also showing atypical ductal cells with another placement of plastic pancreatic stent. His care was further delayed about 1 month when he was unable to be reached by phone to discuss further plan of care. He was seen by gastroenterology at [facility] in late December complaining of increased epigastric pain. He also was noted to have about 20 pounds of weight loss and worsening diabetes. January 10 he had repeat endoscopic ultrasound with a masslike region in the pancreatic head and again brushings showed atypical cells with fine-needle aspiration again with atypical cells suspicious for cancer. CT abdomen pelvis at [facility] 01/22/2020 revealed no distant metastatic disease. IMPRESSION: 1. Pancreatic head mass measuring 2.6 x 2.2 x 3.0 cm, with 180 degree abutment and contour abnormality of the patent SMV, with increasing pancreatic ductal dilatation, highly concerning for pancreatic adenocarcinoma. The superior mesenteric artery and celiac artery are not involved. Malignant involvement of a 9 mm peripancreatic lymph node is not excluded. 2. Status post common bile duct stent placement. Air within the stent, left greater than right pneumobilia, and air within the gallbladder all suggest stent patency. 3. Enlarged prostate. Please correlate with PSA. Due to nondiagnostic biopsies and resectable disease, he consented to upfront Whipple procedure (pancreatoduodenectomy) performed 02/15/2020. He tolerated surgery well and has returned to eating a normal diet. Diabetes is well controlled on his current regimen with insulin managed by Dr. Tiki Dockery at [facility]. 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 She does have some peripheral neuropathy from diabetes but this does not limit his activity. Given high risk features of perineural and lymphovascular invasion as well as anaplastic poorly differentiated histology, we discussed FOLFIRINOX adjuvant therapy which may commence after placement of infusion port in the next 1 to 2 weeks. Today we reviewed chemotherapy counseling for FOLFIRINOX (5-fluorouracil, leucovorin, irinotecan, oxaliplatin every 2 weeks for 12 cycles). Goal of therapy is curative. Common toxicities were reviewed to include myelosuppression, fatigue, nausea, vomiting, constipation, diarrhea, mouth sores, and alopecia. Other toxicities may include pneumonitis, cold-induced neuropathy, cumulative neuropathy, secondary malignancies, hepatic and renal toxicities. The patient signed informed consent and will follow-up as directed. Of note he does have a history of chronic hepatitis C status post treatment withEpclusa with complete response. He reports that his mother had pancreatic cancer and in her 60s as well as a father with pancreatic cancer who at age 82. Brother had lung cancer but no other family history of malignancies. He is an active smoker 1/2 pack/day since age 14 and continues actively smoking. He denies alcohol use quitting about 7 years ago when he was diagnosedwith hepatitis C. 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 DIAGNOSIS: 1. 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 2. Diabetes mellitus, insulin requiring with mild peripheral neuropathy 3. History of hepatitis C status post curative Epclusa therapy around 2013. 4. Family history of mother and father with pancreatic cancer 5. History of anxiety disorder and depression 6. Ongoing tobacco use 7. Unintentional weight loss - Summary of Therapies Summary of Therapies: 1. Whipple's procedure/pancreaticoduodenectomy 02/15/2020. 2. FOLFIRINOX therapy commenced 04/12/2020. FOLFIRINOX: Day 1: Oxaliplatin 85mg/m2 IV over 2 hours; Irinotecan 180mg/m2 IVover 90 minutes; Leucovorin 400mg/m2 IV over 90 minutes; followed by Day 1: Fluorouracil 400mg/m2 IV push; followed by Days 1-2 Fluorouracil 2,400 mg/m2 IV continuous infusion over 46 hours. Repeat cycle every 2 weeks x 12 cycles. --cycle 6 06/22/2020--Will dose reduce oxaliplatin 20% for grade 3 nausea/grade 2neuropathy/renal insufficiency --Cycle 7 07/04/2020--on hold for intractable dyspnea and oral mucositis, 07/13/2020 continuing to hold cycle 7 for another week per patient request for ongoing dyspnea. --Resumed cycle 7 07/20/2020: 80% dose for all meds. He had another 20% dose reduction of oxaliplatin and irinotecan for cycle 10. He had 2-week delay of cycle 11 for psychiatric hospitalization. --Resuming cycle 11 09/20/2020: 60% dose oxaliplatin and irinotecan, 80% dose of 5-fluorouracil/leucovorin. -- Last cycle (12) 10/03/2020. ROS Details: All systems reviewed & no additional complaints except as documented Subjective/ROS - Narrative: CONSTITUTIONAL: Positive for mild fatigue--PS 1, negative for fever or night sweats. Recurrent anxiety and psychological distress--improved since hospital stay in early September 2020 as per HPI, resumed normal diet. HEAD AND NECK: Negative for changes in hearing and vision. No oral ulcers. No change in voice, nasal congestion and nasal drainage. Improved taste. ResolvedOdynophagia. PULMONARY: Positive for noncardiac chest pain as per HPI, negative for cough andpositive for mild dyspnea--improving. No pneumonia or PE on chest CT in 01/2021. CARDIOVASCULAR: Negative for claudication and irregular heartbeat/palpitations. + mid chest pain- intermittent - had negative stress test 04/2021. GASTROINTESTINAL: Positive for intermittent epigastric abdominal pain as per HPI(well healed postop Whipple procedure). Positive for early satiety with decreased appetite but stable weight over the last 3 months. Stable nausea without vomiting or constipation. Positive for intermittent diarrhea, not consistently using Imodium. GENITOURINARY: Negative for dysuria and hematuria. ENDOCRINE: Negative for cold intolerance and heat intolerance. Diabetes mellitus about 10 years, worsening control prior to pancreas cancer diagnosis. Now insulin dependent. CENTRAL NERVOUS SYSTEM: Negative for gait disturbance and headache. + peripheral neuropathy hands and feet--stable, chronic. PSYCHIATRIC: Improvement of prior anxiety/depression--resolution of prior suicidal ideation since hospital stay for early September 2021. DERMATOLOGICAL: Negative for pruritus and rash. Negative for suspicious skin lesions. Prior bedbugs--isolation precautions. No visible infestation today. MUSCULOSKELETAL: Negative for back pain and bone/joint symptoms. HEMATOLOGICAL: Negative for bleeding and easy bruising. Positive for 1 unit redblood cell transfusion early July 2020. Negative for history of thromboembolic disease ALLERGY: Negative for environmental allergies and food allergies. [facility] - Medical History Medical History: Medical History (Last Reviewed 05/30/21 @ 10:21 by Jose Martin Ramirez DO) Amputated toe of right foot Anxiety Blockage of a bile duct liver stents placed d/t blockage Depression Diabetes mellitus Family history of pancreatic cancer History of hepatitis C Hyperlipemia Hypertension Neuropathy Odynophagia Pancreatic cancer - Surgical History Surgical History: Surgical History (Last Reviewed 05/30/21 @ 10:21 by Jose Martin Ramirez DO) History of cholecystectomy done at time of whipple History of gastrointestinal surgery whipple procedure 02/2020 - Family History Family History: Family History (Last Reviewed 05/30/21 @ 10:21 by Jose Martin Ramirez DO) Father Pancreatic cancer Mother Pancreatic cancer - Social History Smoking Status: Current every day smoker Tobacco Type: cigarettes Substance Use Type: None Substance Abuse Comment: states I smoke marijuana every now and then Home Medications & Allergies Allergies No Known Allergies Allergy (Verified 06/19/21 11:36) Home Medications cholecalciferol (vitamin D3) 25 mcg (1,000 unit) tablet 50 mcg PO DAILY #30 tab 09/16/20 [Rx Confirmed 06/19/21] clonazepam 1 mg tablet 1 mg PO TID tab 09/16/20 [Rx Confirmed 06/19/21] hydrochlorothiazide 25 mg tablet 25 mg PO DAILY 15 Days #15 tab 09/16/20 [Rx Confirmed 06/19/21] linagliptin 5 mg tablet (Tradjenta) 5 mg PO DAILY.WITH.BKFAST 30 Days #30 tab 09/16/20 [Rx Confirmed 06/19/21] lorazepam 2 mg tablet 1 mg PO BID PRN #0 tab 09/16/20 [Rx Confirmed 06/19/21] mirtazapine 7.5 mg tablet 22.5 mg PO QHS 15 Days #50 tab 09/16/20 [Rx Confirmed 06/19/21] venlafaxine 37.5 mg capsule,extended release 24 hr 112.5 mg PO DAILY 15 Days #60cap 09/16/20 [Rx Confirmed 06/19/21] lorazepam 1 mg tablet (Ativan) 1 mg PO Q12H PRN 5 Days #10 tab 11/06/20 [Rx Confirmed 06/19/21] tramadol 50 mg tablet 50 mg PO Q6H PRN 30 Days #60 tab 02/22/21 [Rx Confirmed 06/19/21] pregabalin 50 mg capsule (Lyrica) 50 mg PO BID 04/26/21 [History Confirmed 06/19/21] pregabalin 150 mg capsule 150 mg PO BID 06/19/21 [History Confirmed 06/19/21] pregabalin 75 mg capsule 75 mg PO BID 06/19/21 [History Confirmed 06/19/21] Objective - Resuscitation Status Resuscitation Status: Full Code - Height/Weight Height/Weight: Height 6 ft 2 in Weight 94.347 kg BSA for Today's Weight 1.93 - Vital Signs Vital Signs: 06/19/21 11:36 Temperature 98.0 F Pulse Rate [Left Brachial] 91 H Respiratory Rate 16 Blood Pressure [Left Arm] 134/69 02 Sat by Pulse Oximetry 96 - Pain Tongue Pain Intensity: 0 - Distress Screening Distress Screen Results: RN Distress Screening Start: 04/11/20 13:45 Freq: Q30D Status: Active Protocol: Document 07/07/20 10:25 MR (Rec: 07/07/20 10:28 MR [id number]) Distress Screening Distress Score: 8 Day to Day Concerns Insurance,Money Physical Concerns Pain,Feeling tired or a lack of energy,Trouble Sleeping Emotional Concerns Depression,Loss of interest in usual activities,Nervousness, Sadness,How my body looks, Feeling hopeless,Feeling uncertain about the future Spiritual or Hindu Concerns: Relating to a higher being Distress Screening Total 8 Distress score of 4 or more discussed Yes with patient? Distress screening follow up: Zoë, RN patient navigator and Cathryn patient navigator notified. pt refusing assistance at this time. Physical Exam Narrative: CONSTITUTIONAL: The patient is mildly disheveled, in no respiratory distress. He is fatigued and mildly cachectic. HEAD / FACE: Normocephalic. EYES: Pupils are equal and reactive to light. Conjunctivae and lids are benign in appearance. Ocular movement intact. EARS: Hearing grossly intact. NOSE / MOUTH / THROAT: Nose, mouth, tongue and oropharynx--No oral ulcers of thrush today. NECK / THYROID: Neck is supple. Thyroid is symmetrical, without thyromegaly, masses or palpable nodules. LYMPHATIC: No palpable cervical, supraclavicular, axillary, or inguinal adenopathy. RESPIRATORY: Normal to inspection. Lungs clear to auscultation and percussion. CARDIOVASCULAR: Regular rate and rhythm. No murmurs, gallops, or rubs. VASCULAR: Carotid, radial, femoral and pedal pulses present bilaterally. No bruits. ABDOMEN: Bowel sounds normoactive. Soft, mild epigastric tenderness and non- distended (not changed from prior exams). No hepatosplenomegaly. No masses. Well healed incisions from Whipple procedure. GENITOURINARY: No CVA tenderness. No suprapubic fullness or tenderness. No groinadenopathy. No evidence of hernias. INTEGUMENTARY: The skin is unremarkable. No rashes. No suspicious lesions. No visible bedbugs today on exam. BACK / SPINE: The back is nontender. No stepoff deformity. MUSCULOSKELETAL: Normal musculature, no joint deformities or abnormalities, normal range of motion for all four extremities. EXTREMITIES: No edema, cyanosis or clubbing. No Kyle sign. NEUROLOGICAL: Alert and oriented. Cranial nerves intact. No gross motor or sensory deficits. PSYCHIATRIC: Calmer and less depressed mood on visit today, no SI/HI. - ECOG Performance Status ECOG Score: 1 Results - Labs Labs: Diagram of Most Recent CBC and CMP 04/24/21 11:13 04/24/21 11:13 - Other Results Results/Comments: Date/Provider Date: 05/30/2021 Jose Martin Ramirez (EGD)Esophagogastroduodenoscopy Additional procedure: push enteroscopy Preoperative Diagnosis:: 1. abnormal CT scan suggesting proximal small bowel thickening 2. history of pancreatic cancer with Whipple 3. abd pain Postoperative diagnosis:: previous Whipple otherwise normal Medications used:: Propofol per anesthesia dept Procedure description:: O2 oximetry, hemodynamic monitoring was performed pre, during, and post procedure. Patient was identified, H&P completed, patient was given full explanation of the procedure as well as associated risks and written consent wasobtained prior to procedure. Patient expressed complete understanding of the procedure as well as alternatives to the procedure and to anesthesia and agreed to proceed with the procedure as indicated. Patient was immediately reassessed prior to IV sedation. Following IV sedation, patient was placed in the left lateral decubitus position. Bite block was inserted. Endoscope was passed through the mouth, into the esophagus. Scope was passed to GE junction. Scope was advanced into the stomach. Previous Whipple noted. Scope was passed into the afferent and efferent loops which appeared normal. Scope was able to be advanced into the proximal jejunum which appeared normal. Scope was withdrawn and removed. Following a period of recovery, patient was seen and given full explanation of the procedure. Patient tolerated the procedure well and be discharged in satisfactory, stable condition. Recommendations:: 1. start dicyclomine 2. followup with oncology 06/05/2021: PFTs were done on this 65-year-old gentleman who is 6 feet 2 inches, weighs 205 pounds, with 41-year smoking history, presenting with dyspnea. Spirometry showed a forced vital capacity of 4.49 L, which is 85% of predicted. FEV1 was 3.45 L, which is 87% of predicted. FEV1/FVC ratio was normal at 77%. FEF25- 75% was normal at 2.95 L/sec, which is 95% of predicted. Lung volumes done by body plethysmography showed a total lung capacity of 7.18 L, which is 90% of predicted. Residual volume was 2.69 L, which is 101% of predicted, with normal RV/TLC ratio of 37%. Diffusion capacity was mildly reduced to 21.1, which is 73% of predicted. OVERALL IMPRESSION: This study was generally remarkable for mild diffusion impairment, but no significant obstructive or restrictive impairment was noted. The possibility of mild emphysema causing diffusion abnormality versus other causes cannot be established here without obstructive abnormality noted. Assessment and Plan - TNM Staging Stagin02/15/2020: 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 (1) Primary cancer of head of pancreas Upfront Whipple procedure for resectable pancreas cancer (initial biopsies suspicious but nondiagnostic for malignancy). 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 Poor risk features and good performance status (although mild baseline diabetic neuropathy). He consented to FOLFIRINOXadjuvant therapy. General surgery referral for infusion port placement. 04/25/2020: No significant toxicities at followup visit (cycle 1 day 1 was 04/12/2020). We will continue 100% dose FOLFIRINOX and follow closely for hyperglycemia and neuropathy symptoms due to his baseline diabetic neuropathy. 05/25/2020: Patient has increased fatigue, early satiety, and weight loss. Adding Boost at least twice daily and encouraging use of Imodium and Zofran regularly. Okay for cycle 4 today with stable labs. Restaging CT chest abdomenpelvis will be scheduled prior to cycle 6 in 1 month I will see him at that time. 06/20/2020: Worsening fatigue, nausea, poor appetite, and weight loss. Worsening neuropathy. Decrease oxaliplatin by 20%, replete low potassium and magnesium. No evidence of recurrence on CT CAP. Reassess Saturday whether K and Mg returned today normal and OK to resume FOLFIRINOX. F/u 1 week if dose delay, 2 weeks if tx. 07/06/2020: Admitted 07/04/2020 for work-up of sudden onset tachypnea with normal oxygen saturation. CT PE protocol was negative for pulmonary embolism or infiltrate. Lactic acid was negative for sepsis and VBG showed respiratory alkalosis with metabolic acidosis. Blood cultures did show coagulase negative staph from infusion port but negative on peripheral culture. He has severe odynophagia and mouth sore. For now I am hydrating him with 1 L normal saline, holding chemotherapy until resolution of toxicities. We will start vancomycin 1.5 g daily (would calculate to 1 g twice daily but patient does not wish to return twice daily for infusions). We will reassess Saturday to see if he should continue 2 weeks of vancomycin. Also giving IV morphine 2 mg now and redose every 15 to 20 minutes until pain less than 4/10. Adding Diflucan elixir and acyclovir elixir for his odynophagia. Consult to palliative medicine for further titration of outpatient pain medication. Follow-up in 1 week to review symptoms and to determine if he is stable to resume adjuvant FOLFIRINOX therapy with likely 50% dose reduction of 5-FU leucovorin. 07/13/2020: Negative blood cultures and CT PE protocol negative for pulmonary embolism or infiltrate. His dyspnea persists despite levofloxacin as well as acyclovir and nystatin for his prior odynophagia. His pain control is stable. I am sending him for pulmonary evaluation with full PFTs and lung volumes with DLCO as well as trial of albuterol nebulizer with electrolyte repletion today and sending with Eladio HENDERSON. Follow-up with me in 2 weeks and we will consider resuming FOLFIRINOX at 80% dose overall of all drugs at his next follow-up if symptoms remain stable. Otherwise he may stop adjuvant therapy and continue observation only for resected pancreas cancer with anaplastic carcinoma. 07/25/2020: Resumed cycle 7 FOLFIRINOX at 80% dose of all meds--continued nausea, fatigue, and anxiety with subjective dyspnea. WBC 35,000 which may be increased response to Zarxio. No evidence of infection. PFTs consistent with asthma (will address below). Drop Zarxio with day 8 CBC and followup next cycle. Patient declines further dose reduction of FOLFIRINOX but will get Aloxi/Hydration today. 08/10/2020: Stable fatigue and nausea for cycle 7 FOLFIRINOX at 80% dose of all meds--continued nausea, fatigue, and anxiety with subjective dyspnea. WBC now 7000--dropped growth factors to see if this would relieve nausea and dyspnea. Pulmonary follow-up later this month and restaging CT scans in early September. Continue current dose for remaining cycles of FOLFIRINOX. 09/19/2020: 2-week delay for cycle 11 FOLFIRINOX with now 60% dose of oxaliplatinand irinotecan, 80% for all other medications. Stable grade 1 peripheral neuropathy. Hospitalized for suicidal ideation 09/10-11/2020. Symptoms now with improved control since increasing Remeron, adding Effexor, and changing Ativan to Klonopin. He has ongoing follow-up with psychiatry and dyspnea is improved. 10/19/2020: Completed 12 cycle FOLFIRINOX with last cycle 10/03/2020. CA 19-[address] CAP without evidence of recurrence. Followup neuropathy on current antidepressant medications and f/u with palliative medicine (should improve off chemotherapy) Next follow-up with me in 3 months after completion of FOLFIRINOX for exam and restaging tumor marker CA 19-9, sooner prn. We will review survivorship template at next visit. 01/26/2021: Altagracia is seen for routine 3-month follow-up for resected pancreas cancer (T2N0); s/p completion of 12 cycles FOLFIRINOX adjuvant chemotherapy, which concluded on 10/03/2020. Post treatment CT scans showed no evidence of recurrence in October 2020. He is here today for physical exam, ROS, and review of labs (CBC,CMP and CA 19-9). Clinically the patient looks well; he has gained > 30 pounds since his last visit 3 months ago and reports no new constitutional symptoms. Appetite has improved significantly; as well as, taste and fatigue. Hespecifically denies any issues with headaches, fever/chills, recent/recurrent infections, night sweats, weight loss, chest pain, cough, shortness of breath, nausea/vomiting, abdominal pain, diarrhea/constipation, new bony pain, skin rash, lymphadenopathy or lower extremity edema. His only complaint today is continued peripheral neuropathy (hands/feet) - Grade 1 (had peripheral neuropathy at baseline due to long standing diabetes). He is currently taking Gabapentin 400 mg daily with no improvement. --He is noted on laboratories to have slight rise in his CA 19-9 from 26 ---> 40. CBC is relatively unremarkable, with improving anemia. CMP reveals worseningof baseline creatinine and GFR (GFR= 47), normal electrolytes and calcium. He has mild elevation of AST (55) and increased Alkaline phosphate (360) with normal bilirubin. He reports that his PCP has referred him to a buffing machine operator semiautomatic and he has an upcoming appt in March 2021. 02/22/2021: Due to rising CA 19-9 level, SUZY Barrios ordered CT chest, abdomen/pelvis. She was unable to reach him for phone followup, but when he wascontacted he reported recurrent brief episodes of unexplained epigastric pain. No progression on restaging images, but he will see gastroenterology for EGD. Tramadol 50mg po q6h prn for pain. I sent CBC, CMP, amylase, lipase and will contact him with results. 04/26/2021: Midchest pain--pending stress test and EGD for further evaluation. Due for CT Chest/Abdomen/Pelvis--ordered this week and will followup results in one week. Tumor marker CA 19-9 24 (stable). If no recurrence, will continue every 3 month surveillance. 05/05/2021: Continued mid chest pain with negative stress test. Contacted GI forboth EGD and push enteroscopy due to small bowel wall thickening on restaging CTchest and pelvis. Otherwise no evidence of recurrence of pancreatic cancer and tumor marker is still normal. We will continue every 3-month surveillance with exam and labs and defer imaging unless rising CEA or new symptoms. Peripheral neuropathy is now well controlled on current regimen but he is following with palliative medicine, consider acupuncture. 06/19/2021: Intermittent, transient episodes of upper abdominal pain and cramping; with some residual numbness ; episodes are very infrequent?he sometimes can go an entire week without having an episode. He has no associateddiarrhea. He has since had normal EGD and relatively normal PFTs following his last appointment. His last CA 19?9 was within normal range. There was no evidence of recurrence on EGD, as last CT scan dated 05/04/2021 showed mild thickening in the small intestine of indeterminate etiology. -We will continue routine follow-up; surveillance for pancreatic cancer. The patient has no other changes in ROS and no new areas of pain. Both his appetiteand weight are stable, of note he has gained approximately 4-5 pounds since his last visit. -Continue every 3 month follow-up with CBC, CMP and CA 19?9; with CT chest/abdomen and pelvis with IV and p.o. contrast prior to next follow-up. (2) Cancer-related pain Recent recurrent epigastric pain/recent chest pain as noted above--completed restaging imaging CT CAP (05/04/2021); negative stress test; and mild emphysema on PFT. Completed EGD with gastroenterology as noted above, on 05/30/2021 with normal findings and no obvious evidence of recurrence. 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 Stable, chronic neuropathy-on max dose Lyrica 225 mg p.o. twice daily?prescribedby Dr. Dockery; is no longer following palliative medicine on a regular basis. (4) Abnormal kidney function No new labs for review today - follow up in 3 months. (5) Major depressive disorder Qualifiers: Major depression episode severity: moderate The patient was discharged home in early September after hospitalization for depression and suicidal ideation. He reports symptoms are much improved and anxiety is better since change of medications. He felt hopeless with anhedonia and passive suicidal ideation but no hallucinations. He now has no active suicidal ideation and had not had prior psychiatric hospitalizations, suicide attempts, or family history of this. No use of alcohol or illicit drugs. Following with primary care Dr. Tiki Dockery who is primary prescriber of pain medication. He now has follow-up with Dr. Bee of psychiatry as well. We will continue to follow closely after completion of adjuvant chemotherapy. Denies SI/HI. (6) Anemia complicating neoplastic disease Hemoglobin was 7.7 on 07/05/2020 and due to his tachypnea and distress he was transfused 1 unit of packed red blood cells. Now hemoglobin has improved to 10.5 since 20% dose reduction of all chemotherapy meds. Further improvement 10.7 which has been steady in the last 2 months. Last hemoglobin 12.9; improving after ~ 6 months off chemotherapy. (7) Cancer cachexia Significant improvement in overall status, appetite and nutrition. He has gained approximately 35+ pounds since October 2020. (8) Diabetes mellitus with neuropathy Qualifiers: Diabetes mellitus type: type 2 Diabetes mellitus emt intermediate insulin use: unspecified emt intermediate insulin use status Qualified Code(s): E11.40 - Type 2 diabetes mellitus with diabetic neuropathy, unspecified Followed by Dr. Dockery--improving control since surgery, completing chemotherapy, and adjustment of insulin. (9) Asthma Qualifiers: Asthma severity: moderate Asthma persistence: persistent Negative evaluation for PE, treated for coag negative staph infection therefore he completed a course of levofloxacin. He is not hypoxic but did have some mildwheezing on exam today persistent dyspnea with exertion. He did not feel improved after albuterol MDI use at home (although only using about once daily). PFTs show reversible obstruction. Encouraged to use albuterol MDI 4 times daily and added Pulmocort MDI twice daily. Following with pulmonary. - Chemo Plan Chemo Plan (Dose, Rate, Freq): Completed adjuvant FOLFOX therapy in late September 2020. Number of Cycles: 12 Goal of Treatment: Curative - Time with Patient Time Spent with Patient (Follow Up Visit): 25 minutes Coordination of Care & Counseling Time: Greater than 50% of time spent with patient was for coordination of care (as documented) and [id number] counseling of patient and/or family. Dictated By: Maura Sands APRN DD/ 1302 Signed By: <Electronically signed by NYLA Sands> 06/19/21 1409 [facility] Work Phone: [phone] 600-463604-06-2022 Evaluation note* Encounter Date Diagnosis Assessment Notes Treatment Notes Treatment Clinical Notes Jun, Positive colorectal cancer screening using Cologuard test (ICD-10 - R19.5) [employer] Other 03-17-2022 Evaluation note* Encounter Date Diagnosis Assessment Notes Treatment Notes Treatment Clinical Notes May, Encounter for immunization (ICD-10 - Z23) Patient presents for COVID-19 vaccination BOOSTER. Pre-screening form answers evaluated with patient. Patient denies current illness or allergic reaction to component of COVID-19 vaccine. Patient provided with current copy of EUA. [employer] Other 02-25-2022 Progress note Author Margaret Delgado [facility] May 05, 2021 4:04pm Note Date/Time May 05, 2021 10:42am [facility] [place] [id number] Hem/Onc Follow Up Note - OP Signed Patient: Altagracia Conway MR#: [id number] : 1955 Acct:[id number] Age/Sex: 65 / M Type: REG RCR Copies to: DO Jose Martin Allen Jr, MD Karen Esposito APRN~ Subjective Date/Time of Service: Date of Service: 05/05/2021 Time of Service: 10:38 Chief Complaint: Patient is here today for 1 week follow up visit for pancreaticcancer and to go over CT scans. He states he has started to have left kidney pain and still has chest pain HPI: 05/05/2021: Altagracia is here for 1 week follow-up of restaging CT chest abdomen pelvis. He continues to note recurrent chest discomfort and epigastric pain. No obvious areas of recurrence were seen on CT chest abdomen and pelvis but therewas some mild wall thickening of proximal small bowel of undetermined significance. He had a cardiac stress test by primary care which was negative for ischemia and he is to be scheduled for pulmonary function test. He was to see gastroenterology for EGD but this appointment was rescheduled to May for missed appointment. I contacted gastroenterology regarding his proximal small bowel thickening and asked them to add push enteroscopy and possible capsule endoscopy to have EGD. He continues to note peripheral neuropathy which is painful and is followed by palliative medicine, consider acupuncture. His next follow-up with me will be in 3 months or sooner as needed. We will defer imaging to 6 months unless rising tumor markers or new symptoms. 04/26/2021: 2 month followup for surveillance of resected T2N0 pancreatic cancerfollowing adjuvant FOLFIRINOX x 12 cycles. Due for restaging CT Chest/Abdomen/Pelvis. Intermittent epigastric pain, stable weight, normal LFTs. Has mid chest pain without dysphagia or GERD symptoms--pending stress test by primary care and has not yet seen GI for EGD (rescheduled May 2021 due to missed appointment). Agrees to CT CAP for restaging and f/u results in 1 week. 02/22/2021: SUZY Sands attempted to contact Altagracia with CT results but could not reach him after multiple attempts. When he was finally reached, he reported about one week history of recurrent epigastric pain which lasts about 5minutes and takes away my breath . Not associated with eating or at a certain time of day. No change in urine or stool frequency and nausea stable. His CT CAP showed no evidence of metastatic disease. I sent labs to determine if he has worsening LFTs or pancreatitis. If unremarkable, he already has an appointment with GI in March--we will try to have him seen sooner for EGD if possible. Until then he is prescribed Tramadol 50mg po q6h prn (#60, RF0). He may f/u as previously scheduled in 04/2021, sooner prn. 01/26/2021: Altagracia presents for routine 3 month followup for T2N0M0 resected pancreatic cancer to review symptoms and labs (tumor markers). Clinically the patient looks well; he has gained > 30 pounds since his last visit 3 months ago and reports no new constitutional symptoms. Appetite has improved significantly;as well as, fatigue. He specifically denies any issues with headaches, fever/chills, recent/recurrent infections, night sweats, weight loss, chest pain, cough, shortness of breath, nausea/vomiting, abdominal pain, diarrhea/constipation, new bony pain, skin rash, lymphadenopathy or lower extremity edema. His only complaint today is continued peripheral neuropathy (hands/feet) - Grade 1 (had peripheral neuropathy at baseline due to long standing diabetes). He is currently taking Gabapentin 400 mg daily with no improvement. He is noted on laboratories to have slight rise in his CA 19-9 from 26 ---> 40. CBC is relatively unremarkable, with improving anemia. CMP reveals worsening of baseline creatinine and GFR (GFR= 47), normal electrolytes and calcium. He has mild elevation of AST (55) and increased Alkaline phosphate (360) with normal bilirubin. He reports that his PCP has referred him to a buffing machine operator semiautomatic and he has an upcoming appt in March 2021. 10/19/2020: One month followup to review restaging CT Chest Abdomen and Pelvis with tumor markers after completing all 12 cycles of FOLFIRINOX. Has numbness of bilateral hands all the time but this is not painful for him. No further suicidal ideation and has scheduled followup with his psychiatrist in November. No abdominal pain and regaining weight. Still has bedbug infestation--taking precautions for visits but no visualized bugs on exam today. Reviewed normal tumor marker CA 19-[address] without evidence of recurrence. Continue port flushes every 6 weeks. Next f/u for symptom review and tumor marker in 3 months, sooner if new symptoms. 09/19/2020: Altagracia is here to resume cycle 11-day 1 FOLFIRINOX tomorrow. He has had a dose delay of about 2 weeks for cycle 11 due to hospitalization on 1S 09/10-11/2020 for suicidal ideation. He reported feeling overwhelmed due to multiple psychosocial stressors including his physical illness with difficulty sleeping and depressed mood. He had increased dose of Remeron to 22.5 mg nightly, Effexor added for depression titrating up to 112.5 mg daily, and lorazepam was changed to Klonopin 1 mg 3 times daily. He was deemed safe for discharge home he notes that he feels much improved. He was diagnosed with bedbug infestation last month and we have performed room cleaning precautions. No current pruritusand there was chemotherapy related fatigue and mild peripheral neuropathy has been improved since he had his 2-week delay in therapy. He denies any current dyspnea with exertion. It feels stable to resume his 11th cycle (last 2 cycles)of FOLFIRINOX therapy tomorrow. I will send tumor markers CA 19-9 and coordinate follow-up CT chest abdomen pelvis for restaging in about 1 month prior to his next follow-up. 08/11/2020: Cycle 9 Day 3 FOLFIRINOX--still notes dyspnea on exertion, using inhalers and has pulmonary medicine appointment later this month. Persistent nausea, relieved somewhat with phenergan. Mild peripheral neuropathy lasting a few days. He noted darker stools at triage but no constipation/diarrhea, or BRBPR. Hemoglobin stable. He has stable WBC--no signs of infection. Declines dose reduction due to fear of recurrence. Next f/u with cycle 11, day 1--soonerprn. 07/25/2020: Altagracia resumed FOLFIRINOX cycle 7 one week ago at 80% dose of all meds. He notes persistent dyspnea and does not feel improved with albuterol metered dose inhalers. I offered to delay chemo or reduce dose further, but he fears recurrence and wants to proceed. He requested IV nausea meds and hydration today. I will contact Dr. Dockery and recommend increasing Ativan totwice daily with his Abilify and Cymbalta. His PFTs are consistent with asthma--reversible obstruction. I'm adding budesonide (Pulmcort) twice daily toAlbuterol MDIs. He cannot get an appointment with pulmonary medicine until 08 September. WBC 35,000--some of his anxiety may be due to growth factors. I will drop Zarxio next cycle and I will see him in 2 weeks after cycle 8. 07/13/2020: Altagracia is here for follow-up after delaying cycle 7 chemotherapy over the past week. He was due to be treated yesterday but has continued dyspnea with exertion and wishes to defer therapy another week. He was admitted overnight 1 week ago for his dyspnea and treated with antibiotics as well as acyclovir and nystatin swish and swallow for odynophagia which is slowly improving. He still reports that he has dyspnea with exertion and climbing stairs. On exam today he had some mild wheezing on the right and has not been using MDIs. I informed him that we will send for PFTs with lung volumes and DLCO as well as a trial of albuterol nebulizer in treatment room today and MDIs at home. He also has mild hypokalemia and hypomagnesemia. If he continues to improve steadily we may treat with overall 80% dose of all meds for FOLFIRINOX and I will see him in follow-up in 2 weeks. 07/06/2020: Altagracia would have been scheduled for cycle 7-day 1 on Tuesday 07/04, butthis was held when he presented with significant dyspnea on exertion and was sent to the emergency department. CT PE protocol was negative for pulmonary embolism and oxygen saturation was 98% on room air but he had significant tachypnea. He had no associated cough but reported a mouth sore on the left side of his tongue and severe odynophagia (10/10 pain). He has been using topical viscous lidocaine which is not resolved his symptoms. He was admitted and blood culture through his port showed a presumptive coagulase-negative staph through the port and no growth from peripheral culture through the wrist. Also had negative nasopharyngeal panel, negative coronavirus, and negative urine culture. He still has significant tachypnea with respiratory rate about 25 and heart rate 116. Saturation is 99% on room air. --We will continue to hold his chemotherapy. I am treating him with 1 L fluid normal saline, 2 mg IV morphine and will repeat every 15 to 20 minutes until pain less than 4 out of 10, and start vancomycin for 2-week course with dosing per pharmacy. This can be given as an outpatient. He does still have significant leukocytosis which could be due to prior Neulasta and received 1 unit of packed red blood cells yesterday for hospital discharge for hemoglobin 7.7. I will reassess him in 1 week to determine if he can resume chemotherapy. I am also prescribing acyclovir and Diflucan elixirs for his odynophagia. We will put in a palliative medicine consult. 06/20/2020: Altagracia is here for cycle 6-day 1 adjuvant FOLFIRINOX. He has persistent nausea without emesis (added compazine last week), poor appetite, andgeneralized weakness. He lost 4kg in the past 2 weeks. Also notes increased numbness of hands and feet. Potassium (2.7) and Magnesium (1.4) returned low today--hydrating with 1L Normal saline with 40meq KCl IV and 4g MgSO4 IV today. Send home with oral KCl 20meq bid. We will recheck K and Mg Saturday and dose reduce Oxaliplatin by 20% for next cycle. If continued nausea and fatigue--ok to delay therapy one week. Restaging CT without evidence of recurrence 06/15/2020. F/u 1 week if dose delay, 2 weeks if treated Saturday. 05/25/2020: Altagracia is here for cycle 4-day 1 adjuvant FOLFIRINOX. He notes that he has intermittent nausea but is well controlled on his current medications. He notes early satiety and was recently given additional boost to use once daily. He has lost about 4 kg over the last month. 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 Fatigue is stable and hedenies abdominal or back pain. Renal function has proved since starting therapy. He has moderate anemia but does not require transfusion. At this point will continue full dose FOLFIRINOX and restage with CT chest abdomen pelvis prior to cycle 6 as well as CA 19-9. Next follow-up in 1 month with labs. 04/25/2020: Altagracia commenced adjuvant FOLFIRINOX C1D1 on 04/12/2020--tolerated well. Denies fatigue, nausea, constipation/diarrhea, abdominal pain or cold-induced neuropathy. F/u labs unremarkable. He wishes to move infusion to if possible for cycle 2 due to an important business meeting tomorrow (will have to set up [facility] inpatient duckworth eval to d/c 5FU pump Saturday). Otherwise no concerns--f/u with me in one month for tumor markers and exam--continue 100% dose. PREVIOUS HISTORY: This is a 64-year-old male who originally presented to [facility] with nausea, vomiting, diarrhea in October 2019 and was found to have elevated liver enzymes with total bilirubin 12.7, alkaline phosphatase 408, ALT 247, AST 197, lipase 161, white blood cell count of thousand 100, hemoglobin 12.9, platelets 139,000. INR 1.2 and hemoglobin A1c 9.1. MRCP showed extensiveextra and intrahepatic biliary dilatation up to 1.5 cm with a dilated pancreaticduct at 5 mm without discrete mass. ERCP 11/10/[address] Weaver revealed 2 mm stricture in the common bile duct, status post sphincterotomy, brushings, and placement of plastic stent. He was referred for EUS/ERCP on 12/07/[address] Margaret Malcolm with fine-needle biopsy showing atypical cells present, suspicious for carcinoma. At that time the biliary stent was partially occluded and there was a single severe biliary stricture in the lower third of the main bile duct (malignant appearing) status post dilation and brushing also showing atypical ductal cells with another placement of plastic pancreatic stent. His care was further delayed about 1 month when he was unable to be reached by phone to discuss further plan of care. He was seen by gastroenterology at [facility] in late December complaining of increased epigastric pain. He also was noted to have about 20 pounds of weight loss and worsening diabetes. January 10 he had repeat endoscopic ultrasound with a masslike region in the pancreatic head and again brushings showed atypical cells with fine-needle aspiration again with atypical cells suspicious for cancer. CT abdomen pelvis at [facility] 01/22/2020 revealed no distant metastatic disease. IMPRESSION: 1. Pancreatic head mass measuring 2.6 x 2.2 x 3.0 cm, with 180 degree abutment and contour abnormality of the patent SMV, with increasing pancreatic ductal dilatation, highly concerning for pancreatic adenocarcinoma. The superior mesenteric artery and celiac artery are not involved. Malignant involvement of a 9 mm peripancreatic lymph node is not excluded. 2. Status post common bile duct stent placement. Air within the stent, left greater than right pneumobilia, and air within the gallbladder all suggest stent patency. 3. Enlarged prostate. Please correlate with PSA. Due to nondiagnostic biopsies and resectable disease, he consented to upfront Whipple procedure (pancreatoduodenectomy) performed 02/15/2020. He tolerated surgery well and has returned to eating a normal diet. Diabetes is well controlled on his current regimen with insulin managed by Dr. Tiki Dockery at [facility]. 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 She does have some peripheral neuropathy from diabetes but this does not limit his activity. Given high risk features of perineural and lymphovascular invasion as well as anaplastic poorly differentiated histology, we discussed FOLFIRINOX adjuvant therapy which may commence after placement of infusion port in the next 1 to 2 weeks. Today we reviewed chemotherapy counseling for FOLFIRINOX (5-fluorouracil, leucovorin, irinotecan, oxaliplatin every 2 weeks for 12 cycles). Goal of therapy is curative. Common toxicities were reviewed to include myelosuppression, fatigue, nausea, vomiting, constipation, diarrhea, mouth sores, and alopecia. Other toxicities may include pneumonitis, cold-induced neuropathy, cumulative neuropathy, secondary malignancies, hepatic and renal toxicities. The patient signed informed consent and will follow-up as directed. Of note he does have a history of chronic hepatitis C status post treatment withEpclusa with complete response. He reports that his mother had pancreatic cancer and in her 60s as well as a father with pancreatic cancer who at age 82. Brother had lung cancer but no other family history of malignancies. He is an active smoker 1/2 pack/day since age 14 and continues actively smoking. He denies alcohol use quitting about 7 years ago when he was diagnosed with hepatitis C. 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 DIAGNOSIS: 1. 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 2. Diabetes mellitus, insulin requiring with mild peripheral neuropathy 3. History of hepatitis C status post curative Epclusa therapy around 2013. 4. Family history of mother and father with pancreatic cancer 5. History of anxiety disorder and depression 6. Ongoing tobacco use 7. Unintentional weight loss - Summary of Therapies Summary of Therapies: 1. Whipple's procedure/pancreaticoduodenectomy 02/15/2020. 2. FOLFIRINOX therapy commenced 04/12/2020. FOLFIRINOX: Day 1: Oxaliplatin 85mg/m2 IV over 2 hours; Irinotecan 180mg/m2 IVover 90 minutes; Leucovorin 400mg/m2 IV over 90 minutes; followed by Day 1: Fluorouracil 400mg/m2 IV push; followed by Days 1-2 Fluorouracil 2,400 mg/m2 IV continuous infusion over 46 hours. Repeat cycle every 2 weeks x 12 cycles. --cycle 6 06/22/2020--Will dose reduce oxaliplatin 20% for grade 3 nausea/grade 2neuropathy/renal insufficiency --Cycle 7 07/04/2020--on hold for intractable dyspnea and oral mucositis, 07/13/2020 continuing to hold cycle 7 for another week per patient request for ongoing dyspnea. --Resumed cycle 7 07/20/2020: 80% dose for all meds. He had another 20% dose reduction of oxaliplatin and irinotecan for cycle 10. He had 2-week delay of cycle 11 for psychiatric hospitalization. --Resuming cycle 11 09/20/2020: 60% dose oxaliplatin and irinotecan, 80% dose of 5-fluorouracil/leucovorin. -- Last cycle (12) 10/03/2020. ROS Details: All systems reviewed & no additional complaints except as documented Subjective/ROS - Narrative: CONSTITUTIONAL: Positive for mild fatigue--PS 1, negative for fever or night sweats. Recurrent anxiety and psychological distress--improved since hospital stay in early September 2020 as per HPI, resumed normal diet. HEAD AND NECK: Negative for changes in hearing and vision. No oral ulcers. No change in voice, nasal congestion and nasal drainage. Improved taste. ResolvedOdynophagia. PULMONARY: Positive for noncardiac chest pain as per HPI, negative for cough andpositive for mild dyspnea--improving. No pneumonia or PE on chest CT in 01/2021. CARDIOVASCULAR: Negative for claudication and irregular heartbeat/palpitations. + mid chest pain pending stress test 04/2021. GASTROINTESTINAL: Positive for intermittent epigastric abdominal pain as per HPI(well healed postop Whipple procedure). Positive for early satiety with decreased appetite but stable weight over the last 3 months. Stable nausea without vomiting or constipation. Positive for intermittent diarrhea, not consistently using Imodium. GENITOURINARY: Negative for dysuria and hematuria. ENDOCRINE: Negative for cold intolerance and heat intolerance. Diabetes mellitus about 10 years, worsening control prior to pancreas cancer diagnosis. Now insulin dependent. CENTRAL NERVOUS SYSTEM: Negative for gait disturbance and headache. + peripheral neuropathy hands and feet--stable, chronic. PSYCHIATRIC: Improvement of prior anxiety/depression--resolution of prior suicidal ideation since hospital stay for early September 2021. DERMATOLOGICAL: Negative for pruritus and rash. Negative for suspicious skin lesions. Prior bedbugs--isolation precautions. No visible infestation today. MUSCULOSKELETAL: Negative for back pain and bone/joint symptoms. HEMATOLOGICAL: Negative for bleeding and easy bruising. Positive for 1 unit redblood cell transfusion early July 2020. Negative for history of thromboembolic disease ALLERGY: Negative for environmental allergies and food allergies. [facility] - History Attestation statement: The following information was validated with the patient. Source: Old Records Reviewed - Medical History Medical History: Medical History (Last Reviewed 05/05/21 @ 15:54 by Margaret Delgado MD) Amputated toe of right foot Anxiety Blockage of a bile duct liver stents placed d/t blockage Depression Diabetes mellitus Family history of pancreatic cancer History of hepatitis C Hyperlipemia Hypertension Neuropathy Odynophagia Pancreatic cancer - Surgical History Surgical History: Surgical History (Last Reviewed 05/05/21 @ 15:54 by Margaret Delgado MD) History of cholecystectomy done at time of whipple History of gastrointestinal surgery whipple procedure 02/2020 - Family History Family History: Family History (Last Reviewed 05/05/21 @ 15:54 by Margaret Delgado MD) Father Pancreatic cancer Mother Pancreatic cancer - Social History Smoking Status: Current every day smoker Tobacco Type: cigarettes Substance Use Type: None Substance Abuse Comment: states I smoke marijuana every now and then Home Medications & Allergies Allergies No Known Allergies Allergy (Verified 05/05/21 10:31) Home Medications cholecalciferol (vitamin D3) 25 mcg (1,000 unit) tablet 50 mcg PO DAILY #30 tab 09/16/20 [Rx Confirmed 05/05/21] clonazepam 1 mg tablet 1 mg PO TID tab 09/16/20 [Rx Confirmed 05/05/21] hydrochlorothiazide 25 mg tablet 25 mg PO DAILY 15 Days #15 tab 09/16/20 [Rx Confirmed 05/05/21] linagliptin 5 mg tablet (Tradjenta) 5 mg PO DAILY.WITH.BKFAST 30 Days #30 tab 09/16/20 [Rx Confirmed 05/05/21] lorazepam 2 mg tablet 1 mg PO BID PRN #0 tab 09/16/20 [Rx Confirmed 05/05/21] mirtazapine 7.5 mg tablet 22.5 mg PO QHS 15 Days #50 tab 09/16/20 [Rx Confirmed 05/05/21] venlafaxine 37.5 mg capsule,extended release 24 hr 112.5 mg PO DAILY 15 Days #60cap 09/16/20 [Rx Confirmed 05/05/21] lorazepam 1 mg tablet (Ativan) 1 mg PO Q12H PRN 5 Days #10 tab 11/06/20 [Rx Confirmed 05/05/21] tramadol 50 mg tablet 50 mg PO Q6H PRN 30 Days #60 tab 02/22/21 [Rx Confirmed 05/05/21] pregabalin 50 mg capsule (Lyrica) 50 mg PO BID 04/26/21 [History Confirmed 05/05/21] Objective - Height/Weight Height/Weight: Height 6 ft 2 in Weight 92.986 kg BSA for Today's Weight 1.93 - Vital Signs Vital Signs: 05/05/21 10:31 Temperature 97.9 F Pulse Rate [Left Brachial] 92 H Respiratory Rate 16 Blood Pressure [Left Arm] 151/82 H 02 Sat by Pulse Oximetry 97 - Pain Tongue Pain Intensity: 0 - Distress Screening Distress Screen Results: RN Distress Screening Start: 04/11/20 13:45 Freq: Q30D Status: Active Protocol: Document 07/07/20 10:25 MR (Rec: 07/07/20 10:28 [id number]) Distress Screening Distress Score: 8 Day to Day Concerns Insurance,Money Physical Concerns Pain,Feeling tired or a lack of energy,Trouble Sleeping Emotional Concerns Depression,Loss of interest in usual activities,Nervousness, Sadness,How my body looks, Feeling hopeless,Feeling uncertain about the future Spiritual or Hindu Concerns: Relating to a higher being Distress Screening Total 8 Distress score of 4 or more discussed Yes with patient? Distress screening follow up: DEBRA Camp patient navigator and Cathryn patient navigator notified. pt refusing assistance at this time. Physical Exam Narrative: CONSTITUTIONAL: The patient is mildly disheveled, in no respiratory distress. He is fatigued and mildly cachectic. HEAD / FACE: Normocephalic. EYES: Pupils are equal and reactive to light. Conjunctivae and lids are benign in appearance. Ocular movement intact. EARS: Hearing grossly intact. NOSE / MOUTH / THROAT: Nose, mouth, tongue and oropharynx--No oral ulcers of thrush today. NECK / THYROID: Neck is supple. Thyroid is symmetrical, without thyromegaly, masses or palpable nodules. LYMPHATIC: No palpable cervical, supraclavicular, axillary, or inguinal adenopathy. RESPIRATORY: Normal to inspection. Lungs clear to auscultation and percussion. CARDIOVASCULAR: Regular rate and rhythm. No murmurs, gallops, or rubs. VASCULAR: Carotid, radial, femoral and pedal pulses present bilaterally. No bruits. ABDOMEN: Bowel sounds normoactive. Soft, mild epigastric tenderness and non- distended (not changed from prior exams). No hepatosplenomegaly. No masses. Well healed incisions from Whipple procedure. GENITOURINARY: No CVA tenderness. No suprapubic fullness or tenderness. No groinadenopathy. No evidence of hernias. INTEGUMENTARY: The skin is unremarkable. No rashes. No suspicious lesions. No visible bedbugs today on exam. BACK / SPINE: The back is nontender. No stepoff deformity. MUSCULOSKELETAL: Normal musculature, no joint deformities or abnormalities, normal range of motion for all four extremities. EXTREMITIES: No edema, cyanosis or clubbing. No Kyle sign. NEUROLOGICAL: Alert and oriented. Cranial nerves intact. No gross motor or sensory deficits. PSYCHIATRIC: Calmer and less depressed mood on visit today, no SI/HI. - ECOG Performance Status ECOG Score: 1 Results - Labs Labs: Diagram of Most Recent CBC and CMP 04/24/21 11:13 04/24/21 11:13 - Impressions CT chest and CT abdomen and pelvis 05/04/2021. CLINICAL DATA: Pancreatic cancer. TECHNIQUE: CT of the chest was performed with intravenous contrast. CT of the abdomen and pelvis was performed with intravenous and oral contrast. Axial, sagittal, and coronal reconstructions were created and reviewed. These CT exams were performed using one or more of the following dose reduction techniques: Automated exposure control, adjustment of the mA and/or kV according to patient size, or use of iterative reconstruction technique. COMPARISON: 01/31/2021. CHEST FINDINGS: There is an Tqqkod-s-Yflr on the right with an internal jugular vein catheter terminating in the SVC. The heart is normal in size. There is coronary calcification. There is no mediastinal or hilar lymphadenopathy. There is no hiatal hernia. The central airways appear unremarkable. There are chronic subpleural parenchymal changes in both lungs. No pulmonary consolidation or collapse is identified. No pleural effusion is seen. The thoracic spine demonstrates degenerative changes. No chest wall abnormality is noted. ABDOMEN AND PELVIS FINDINGS: There are postsurgical changes related to Whipple procedure. The liver, spleen, remaining pancreas, and both adrenal glands appearunremarkable. There is a tiny cyst in the right kidney. There are a few tiny calculi in the left kidney. The gallbladder is surgically absent. The urinary bladder appears unremarkable. The prostate is enlarged. There is abnormal thickening of the grant of segments of proximal small bowel in the left upper quadrant. The etiology and significance of this finding are unknown. The colon and rectum are distended and contain moderate amounts of stool. No abdominal or pelvic lymphadenopathy is identified. No free intra-abdominal air or ascites is seen. No abdominal wall abnormality is noted. CT/CT abdomen pelvis w con IMPRESSION: 1. Chronic subpleural parenchymal changes in both lungs. 2. Postsurgical changes related to Whipple procedure. 3. Tiny right renal cyst and left nephrolithiasis. 4. Abnormal thickening of the grant of segments of proximal small bowel in the left upper quadrant, etiology and significance uncertain. 5. Enlarged prostate. Impression dictated by: Farooq Martin Jr., M.D.05/04/2021 3:56 PM Assessment and Plan - TNM Staging Stagin02/15/2020: 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 (1) Primary cancer of head of pancreas Upfront Whipple procedure for resectable pancreas cancer (initial biopsies suspicious but nondiagnostic for malignancy). 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 Poor risk features and good performance status (although mild baseline diabetic neuropathy). He consented to FOLFIRINOXadjuvant therapy. General surgery referral for infusion port placement. 04/25/2020: No significant toxicities at followup visit (cycle 1 day 1 was 04/12/2020). We will continue 100% dose FOLFIRINOX and follow closely for hyperglycemia and neuropathy symptoms due to his baseline diabetic neuropathy. 05/25/2020: Patient has increased fatigue, early satiety, and weight loss. Adding Boost at least twice daily and encouraging use of Imodium and Zofran regularly. Okay for cycle 4 today with stable labs. Restaging CT chest abdomenpelvis will be scheduled prior to cycle 6 in 1 month I will see him at that time. 06/20/2020: Worsening fatigue, nausea, poor appetite, and weight loss. Worsening neuropathy. Decrease oxaliplatin by 20%, replete low potassium and magnesium. No evidence of recurrence on CT CAP. Reassess Saturday whether K and Mg returned today normal and OK to resume FOLFIRINOX. F/u 1 week if dose delay, 2 weeks if tx. 07/06/2020: Admitted 07/04/2020 for work-up of sudden onset tachypnea with normal oxygen saturation. CT PE protocol was negative for pulmonary embolism or infiltrate. Lactic acid was negative for sepsis and VBG showed respiratory alkalosis with metabolic acidosis. Blood cultures did show coagulase negative staph from infusion port but negative on peripheral culture. He has severe odynophagia and mouth sore. For now I am hydrating him with 1 L normal saline, holding chemotherapy until resolution of toxicities. We will start vancomycin 1.5 g daily (would calculate to 1 g twice daily but patient does not wish to return twice daily for infusions). We will reassess Saturday to see if he should continue 2 weeks of vancomycin. Also giving IV morphine 2 mg now and redose every 15 to 20 minutes until pain less than 4/10. Adding Diflucan elixir and acyclovir elixir for his odynophagia. Consult to palliative medicine for further titration of outpatient pain medication. Follow-up in 1 week to review symptoms and to determine if he is stable to resume adjuvant FOLFIRINOX therapy with likely 50% dose reduction of 5-FU leucovorin. 07/13/2020: Negative blood cultures and CT PE protocol negative for pulmonary embolism or infiltrate. His dyspnea persists despite levofloxacin as well as acyclovir and nystatin for his prior odynophagia. His pain control is stable. I am sending him for pulmonary evaluation with full PFTs and lung volumes with DLCO as well as trial of albuterol nebulizer with electrolyte repletion today and sending with Eladio WUI. Follow-up with me in 2 weeks and we will consider resuming FOLFIRINOX at 80% dose overall of all drugs at his next follow-up if symptoms remain stable. Otherwise he may stop adjuvant therapy and continue observation only for resected pancreas cancer with anaplastic carcinoma. 07/25/2020: Resumed cycle 7 FOLFIRINOX at 80% dose of all meds--continued nausea, fatigue, and anxiety with subjective dyspnea. WBC 35,000 which may be increased response to Zarxio. No evidence of infection. PFTs consistent with asthma (will address below). Drop Zarxio with day 8 CBC and followup next cycle. Patient declines further dose reduction of FOLFIRINOX but will get Aloxi/Hydration today. 08/10/2020: Stable fatigue and nausea for cycle 7 FOLFIRINOX at 80% dose of all meds--continued nausea, fatigue, and anxiety with subjective dyspnea. WBC now 7000--dropped growth factors to see if this would relieve nausea and dyspnea. Pulmonary follow-up later this month and restaging CT scans in early September. Continue current dose for remaining cycles of FOLFIRINOX. 09/19/2020: 2-week delay for cycle 11 FOLFIRINOX with now 60% dose of oxaliplatinand irinotecan, 80% for all other medications. Stable grade 1 peripheral neuropathy. Hospitalized for suicidal ideation 09/10-11/2020. Symptoms now with improved control since increasing Remeron, adding Effexor, and changing Ativan to Klonopin. He has ongoing follow-up with psychiatry and dyspnea is improved. 10/19/2020: Completed 12 cycle FOLFIRINOX with last cycle 10/03/2020. CA 19-[address] CAP without evidence of recurrence. Followup neuropathy on current antidepressant medications and f/u with palliative medicine (should improve off chemotherapy) Next follow-up with me in 3 months after completion of FOLFIRINOX for exam and restaging tumor marker CA 19-9, sooner prn. We will review survivorship template at next visit. 01/26/2021: Altagracia is seen for routine 3-month follow-up for resected pancreas cancer (T2N0); s/p completion of 12 cycles FOLFIRINOX adjuvant chemotherapy, which concluded on 10/03/2020. Post treatment CT scans showed no evidence of recurrence in October 2020. He is here today for physical exam, ROS, and review of labs (CBC,CMP and CA 19-9). Clinically the patient looks well; he has gained > 30 pounds since his last visit 3 months ago and reports no new constitutional symptoms. Appetite has improved significantly; as well as, taste and fatigue. Hespecifically denies any issues with headaches, fever/chills, recent/recurrent infections, night sweats, weight loss, chest pain, cough, shortness of breath, nausea/vomiting, abdominal pain, diarrhea/constipation, new bony pain, skin rash, lymphadenopathy or lower extremity edema. His only complaint today is continued peripheral neuropathy (hands/feet) - Grade 1 (had peripheral neuropathy at baseline due to long standing diabetes). He is currently taking Gabapentin 400 mg daily with no improvement. --He is noted on laboratories to have slight rise in his CA 19-9 from 26 ---> 40. CBC is relatively unremarkable, with improving anemia. CMP reveals worseningof baseline creatinine and GFR (GFR= 47), normal electrolytes and calcium. He has mild elevation of AST (55) and increased Alkaline phosphate (360) with normal bilirubin. He reports that his PCP has referred him to a buffing machine operator semiautomatic andhe has an upcoming appt in March 2021. 02/22/2021: Due to rising CA 19-9 level, SUZY Barrios ordered CT chest, abdomen/pelvis. She was unable to reach him for phone followup, but when he wascontacted he reported recurrent brief episodes of unexplained epigastric pain. No progression on restaging images, but he will see gastroenterology for EGD. Tramadol 50mg po q6h prn for pain. I sent CBC, CMP, amylase, lipase and will contact him with results. 04/26/2021: Midchest pain--pending stress test and EGD for further evaluation. Due for CT Chest/Abdomen/Pelvis--ordered this week and will followup results in one week. Tumor marker CA 19-9 24 (stable). If no recurrence, will continue every 3 month surveillance. 05/05/2021: Continued mid chest pain with negative stress test. Contacted GI forboth EGD and push enteroscopy due to small bowel wall thickening on restaging CTchest and pelvis. Otherwise no evidence of recurrence of pancreatic cancer and tumor marker is still normal. We will continue every 3-month surveillance with exam and labs and defer imaging unless rising CEA or new symptoms. Peripheral neuropathy is now well controlled on current regimen but he is following with palliative medicine, consider acupuncture. 25 minute Moderate complexity visit. (2) Cancer-related pain Recent recurrent epigastric pain/recent chest pain as noted above--ordered restaging imaging CT CAP and negative stress test last s week. Rescheduled for EGD/push enteroscopy with gastroenterology as noted above. Tramadol 50mg po q6hprn for recurrent pain. Continue follow-up with palliative medicine. 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 Now notes recurrent painful neuropathy on now Lyrica 50 mg twice daily as gabapentin was not effective. He has resumed follow-up with palliative medicine and is not utilizing any opioid pain medications but has Tramadol for prn use. (4) Abnormal kidney function Increased creatinine--1L bolus today, consider nephrology consultation (may be facilitated by primary care). (5) Major depressive disorder Qualifiers: Major depression episode severity: moderate The patient was discharged home in early September after hospitalization for depression and suicidal ideation. He reports symptoms are much improved and anxiety is better since change of medications. He felt hopeless with anhedonia and passive suicidal ideation but no hallucinations. He now has no active suicidal ideation and had not had prior psychiatric hospitalizations, suicide attempts, or family history of this. No use of alcohol or illicit drugs. Following with primary care Dr. Tiki Dockery who is primary prescriber of pain medication. He now has follow-up with Dr. Bee of psychiatry as well. We will continue to follow closely after completion of adjuvant chemotherapy. He is has resumed follow-up with palliative medicine. Denies SI/HI. (6) Anemia complicating neoplastic disease Hemoglobin was 7.7 on 07/05/2020 and due to his tachypnea and distress he was transfused 1 unit of packed red blood cells. Now hemoglobin has improved to 10.5 since 20% dose reduction of all chemotherapy meds. Further improvement 10.7 which has been steady in the last 2 months. Last hemoglobin 12.9; improving after ~ 6 months off chemotherapy. (7) Cancer cachexia Significant improvement in overall status, appetite and nutrition. He has gained approximately 30+ pounds since October 2020. (8) Diabetes mellitus with neuropathy Qualifiers: Diabetes mellitus type: type 2 Diabetes mellitus halfway insulin use: unspecified emt intermediate insulin use status Qualified Code(s): E11.40 - Type 2 diabetes mellitus with diabetic neuropathy, unspecified Followed by Dr. Dockery--improving control since surgery, completing chemotherapy, and adjustment of insulin. (9) Asthma Qualifiers: Asthma severity: moderate Asthma persistence: persistent Negative evaluation for PE, treated for coag negative staph infection therefore he completed a course of levofloxacin. He is not hypoxic but did have some mildwheezing on exam today persistent dyspnea with exertion. He did not feel improved after albuterol MDI use at home (although only using about once daily). PFTs show reversible obstruction. Encouraged to use albuterol MDI 4 times daily and added Pulmocort MDI twice daily. Following with pulmonary. (10) Infestation by bed bug Precautions for future visits. - Chemo Plan Chemo Plan (Dose, Rate, Freq): Completed adjuvant FOLFOX therapy in late September 2020. Number of Cycles: 12 Goal of Treatment: Curative - Time with Patient Time Spent with Patient (Follow Up Visit): 25 minutes - Moderate complexity visit--symptom review, order restaging scans and stable tumor markers. Coordination of Care & Counseling Time: Greater than 50% of time spent with patient was for coordination of care (as documented) and [id number] counseling of patient and/or family. Dictated By: Margaret Delgado MD DD/ [id number] Signed By: <Electronically signed by MD Margaret Delgado> 05/05/21 [address] [facility] Work Phone: [phone] Progress note Author Margaret Delgado [facility] April 26, 2021 5:39pm Note Date/Time April 26, 2021 10:17am [facility] [place] [address] Hem/Onc Follow Up Note - OP Signed Patient: Altagracia Conway MR#: [id number] : 1955 Acct:[id number] Age/Sex: 65 / M Type: REG RCR Copies to: MD Tiki Cazares DO Jeffrey M Hardacre, MD~ Subjective Date/Time of Service: Date of Service: 04/26/2021 Time of Service: 10:16 Chief Complaint: Patient is here today for 2 month follow up appointment and to go over labs. He states he has mid chest pain that comes and goes and has been getting worse. HPI: 04/26/2021: 2 month followup for surveillance of resected T2N0 pancreatic cancerfollowing adjuvant FOLFIRINOX x 12 cycles. Due for restaging CT Chest/Abdomen/Pelvis. Intermittent epigastric pain, stable weight, normal LFTs. Has mid chest pain without dysphagia or GERD symptoms--pending stress test by primary care and has not yet seen GI for EGD (rescheduled May 2021 due to missed appointment). Agrees to CT CAP for restaging and f/u results in 1 week. 02/22/2021: SUZY Sands attempted to contact Altagracia with CT results but could not reach him after multiple attempts. When he was finally reached, he reported about one week history of recurrent epigastric pain which lasts about 5minutes and takes away my breath . Not associated with eating or at a certain time of day. No change in urine or stool frequency and nausea stable. His CT CAP showed no evidence of metastatic disease. I sent labs to determine if he has worsening LFTs or pancreatitis. If unremarkable, he already has an appointment with GI in March--we will try to have him seen sooner for EGD if possible. Until then he is prescribed Tramadol 50mg po q6h prn (#60, RF0). He may f/u as previously scheduled in 04/2021, sooner prn. 01/26/2021: Altagracia presents for routine 3 month followup for T2N0M0 resected pancreatic cancer to review symptoms and labs (tumor markers). Clinically the patient looks well; he has gained > 30 pounds since his last visit 3 months ago and reports no new constitutional symptoms. Appetite has improved significantly;as well as, fatigue. He specifically denies any issues with headaches, fever/chills, recent/recurrent infections, night sweats, weight loss, chest pain, cough, shortness of breath, nausea/vomiting, abdominal pain, diarrhea/constipation, new bony pain, skin rash, lymphadenopathy or lower extremity edema. His only complaint today is continued peripheral neuropathy (hands/feet) - Grade 1 (had peripheral neuropathy at baseline due to long standing diabetes). He is currently taking Gabapentin 400 mg daily with no improvement. He is noted on laboratories to have slight rise in his CA 19-9 from 26 ---> 40. CBC is relatively unremarkable, with improving anemia. CMP reveals worsening of baseline creatinine and GFR (GFR= 47), normal electrolytes and calcium. He has mild elevation of AST (55) and increased Alkaline phosphate (360) with normal bilirubin. He reports that his PCP has referred him to a buffing machine operator semiautomatic and he hasan upcoming appt in March 2021. 10/19/2020: One month followup to review restaging CT Chest Abdomen and Pelvis with tumor markers after completing all 12 cycles of FOLFIRINOX. Has numbness of bilateral hands all the time but this is not painful for him. No further suicidal ideation and has scheduled followup with his psychiatrist in November. No abdominal pain and regaining weight. Still has bedbug infestation--taking precautions for visits but no visualized bugs on exam today. Reviewed normal tumor marker CA 19-[address] without evidence of recurrence. Continue port flushes every 6 weeks. Next f/u for symptom review and tumor marker in 3 months, sooner if new symptoms. 09/19/2020: Altagracia is here to resume cycle 11-day 1 FOLFIRINOX tomorrow. He has had a dose delay of about 2 weeks for cycle 11 due to hospitalization on 1S 09/10-11/2020 for suicidal ideation. He reported feeling overwhelmed due to multiple psychosocial stressors including his physical illness with difficulty sleeping and depressed mood. He had increased dose of Remeron to 22.5 mg nightly, Effexor added for depression titrating up to 112.5 mg daily, and lorazepam was changed to Klonopin 1 mg 3 times daily. He was deemed safe for discharge home he notes that he feels much improved. He was diagnosed with bedbug infestation last month and we have performed room cleaning precautions. No current pruritusand there was chemotherapy related fatigue and mild peripheral neuropathy has been improved since he had his 2-week delay in therapy. He denies any current dyspnea with exertion. It feels stable to resume his 11th cycle (last 2 cycles)of FOLFIRINOX therapy tomorrow. I will send tumor markers CA 19-9 and coordinate follow-up CT chest abdomen pelvis for restaging in about 1 month prior to his next follow-up. 08/11/2020: Cycle 9 Day 3 FOLFIRINOX--still notes dyspnea on exertion, using inhalers and has pulmonary medicine appointment later this month. Persistent nausea, relieved somewhat with phenergan. Mild peripheral neuropathy lasting a few days. He noted darker stools at triage but no constipation/diarrhea, or BRBPR. Hemoglobin stable. He has stable WBC--no signs of infection. Declines dose reduction due to fear of recurrence. Next f/u with cycle 11, day 1--soonerprn. 07/25/2020: Altagracia resumed FOLFIRINOX cycle 7 one week ago at 80% dose of all meds. He notes persistent dyspnea and does not feel improved with albuterol metered dose inhalers. I offered to delay chemo or reduce dose further, but he fears recurrence and wants to proceed. He requested IV nausea meds and hydration today. I will contact Dr. Dockery and recommend increasing Ativan totwice daily with his Abilify and Claudettealjeri. His PFTs are consistent with asthma--reversible obstruction. I'm adding budesonide (Pulmcort) twice daily toAlbuterol MDIs. He cannot get an appointment with pulmonary medicine until 08 September. WBC 35,000--some of his anxiety may be due to growth factors. I will drop Zarxio next cycle and I will see him in 2 weeks after cycle 8. 07/13/2020: Altagracia is here for follow-up after delaying cycle 7 chemotherapy over the past week. He was due to be treated yesterday but has continued dyspnea with exertion and wishes to defer therapy another week. He was admitted overnight 1 week ago for his dyspnea and treated with antibiotics as well as acyclovir and nystatin swish and swallow for odynophagia which is slowly improving. He still reports that he has dyspnea with exertion and climbing stairs. On exam today he had some mild wheezing on the right and has not been using MDIs. I informed him that we will send for PFTs with lung volumes and DLCO as well as a trial of albuterol nebulizer in treatment room today and MDIs at home. He also has mild hypokalemia and hypomagnesemia. If he continues to improve steadily we may treat with overall 80% dose of all meds for FOLFIRINOX and I will see him in follow-up in 2 weeks. 07/06/2020: Altagracia would have been scheduled for cycle 7-day 1 on Tuesday 07/04, butthis was held when he presented with significant dyspnea on exertion and was sent to the emergency department. CT PE protocol was negative for pulmonary embolism and oxygen saturation was 98% on room air but he had significant tachypnea. He had no associated cough but reported a mouth sore on the left side of his tongue and severe odynophagia (10/10 pain). He has been using topical viscous lidocaine which is not resolved his symptoms. He was admitted and blood culture through his port showed a presumptive coagulase-negative staphthrough the port and no growth from peripheral culture through the wrist. Also had negative nasopharyngeal panel, negative coronavirus, and negative urine culture. He still has significant tachypnea with respiratory rate about 25 and heart rate 116. Saturation is 99% on room air. --We will continue to hold his chemotherapy. I am treating him with 1 L fluid normal saline, 2 mg IV morphine and will repeat every 15 to 20 minutes until pain less than 4 out of 10, and start vancomycin for 2-week course with dosing per pharmacy. This can be given as an outpatient. He does still have significant leukocytosis which could be due to prior Neulasta and received 1 unit of packed red blood cells yesterday for hospital discharge for hemoglobin 7.7. I will reassess him in 1 week to determine if he can resume chemotherapy. I am also prescribing acyclovir and Diflucan elixirs for his odynophagia. We will put in a palliative medicine consult. 06/20/2020: Altagracia is here for cycle 6-day 1 adjuvant FOLFIRINOX. He has persistent nausea without emesis (added compazine last week), poor appetite, andgeneralized weakness. He lost 4kg in the past 2 weeks. Also notes increased numbness of hands and feet. Potassium (2.7) and Magnesium (1.4) returned low today--hydrating with 1L Normal saline with 40meq KCl IV and 4g MgSO4 IV today. Send home with oral KCl 20meq bid. We will recheck K and Mg Saturday and dose reduce Oxaliplatin by 20% for next cycle. If continued nausea and fatigue--ok to delay therapy one week. Restaging CT without evidence of recurrence 06/15/2020. F/u 1 week if dose delay, 2 weeks if treated Saturday. 05/25/2020: Altagracia is here for cycle 4-day 1 adjuvant FOLFIRINOX. He notes that he has intermittent nausea but is well controlled on his current medications. He notes early satiety and was recently given additional boost to use once daily. He has lost about 4 kg over the last month. 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 Fatigue is stable and hedenies abdominal or back pain. Renal function has proved since starting therapy. He has moderate anemia but does not require transfusion. At this point will continue full dose FOLFIRINOX and restage with CT chest abdomen pelvis prior to cycle 6 as well as CA 19-9. Next follow-up in 1 month with labs. 04/25/2020: Altagracia commenced adjuvant FOLFIRINOX C1D1 on 04/12/2020--tolerated well. Denies fatigue, nausea, constipation/diarrhea, abdominal pain or cold-induced neuropathy. F/u labs unremarkable. He wishes to move infusion to if possible for cycle 2 due to an important business meeting tomorrow (will have to set up [facility] inpatient duckworth eval to d/c 5FU pump Saturday). Otherwise no concerns--f/u with me in one month for tumor markers and exam--continue 100% dose. PREVIOUS HISTORY: This is a 64-year-old male who originally presented to [facility] with nausea, vomiting, diarrhea in October 2019 and was found to have elevated liver enzymes with total bilirubin 12.7, alkaline phosphatase 408, ALT 247, AST 197, lipase 161, white blood cell count of thousand 100, hemoglobin 12.9, platelets 139,000. INR 1.2 and hemoglobin A1c 9.1. MRCP showed extensiveextra and intrahepatic biliary dilatation up to 1.5 cm with a dilated pancreaticduct at 5 mm without discrete mass. ERCP 11/10/[address] Weaver revealed 2 mm stricture in the common bile duct, status post sphincterotomy, brushings, and placement of plastic stent. He was referred for EUS/ERCP on 12/07/[address] Margaret Malcolm with fine-needle biopsy showing atypical cells present, suspicious for carcinoma. At that time the biliary stent was partially occluded and there was a single severe biliary stricture in the lower third of the main bile duct (malignant appearing) status post dilation and brushing also showing atypical ductal cells with another placement of plastic pancreatic stent. His care was further delayed about 1 month when he was unable to be reached by phone to discuss further plan of care. He was seen by gastroenterology at [facility] in late December complaining of increased epigastric pain. He also was noted to have about 20 pounds of weight loss and worsening diabetes. January 10 he had repeat endoscopic ultrasound with a masslike region in the pancreatic head and again brushings showed atypical cells with fine-needle aspiration again with atypical cells suspicious for cancer. CT abdomen pelvis at [facility] 01/22/2020 revealed no distant metastatic disease. IMPRESSION: 1. Pancreatic head mass measuring 2.6 x 2.2 x 3.0 cm, with 180 degree abutment and contour abnormality of the patent SMV, with increasing pancreatic ductal dilatation, highly concerning for pancreatic adenocarcinoma. The superior mesenteric artery and celiac artery are not involved. Malignant involvement of a 9 mm peripancreatic lymph node is not excluded. 2. Status post common bile duct stent placement. Air within the stent, left greater than right pneumobilia, and air within the gallbladder all suggest stent patency. 3. Enlarged prostate. Please correlate with PSA. Due to nondiagnostic biopsies and resectable disease, he consented to upfront Whipple procedure (pancreatoduodenectomy) performed 02/15/2020. He tolerated surgery well and has returned to eating a normal diet. Diabetes is well controlled on his current regimen with insulin managed by Dr. Tiki Dockery at [facility]. 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 She does have some peripheral neuropathy from diabetes but this does not limit his activity. Given high risk features of perineural and lymphovascular invasion as well as anaplastic poorly differentiated histology, we discussed FOLFIRINOX adjuvant therapy which may commence after placement of infusion port in the next 1 to 2 weeks. Today we reviewed chemotherapy counseling for FOLFIRINOX (5-fluorouracil, leucovorin, irinotecan, oxaliplatin every 2 weeks for 12 cycles). Goal of therapy is curative. Common toxicities were reviewed to include myelosuppression, fatigue,nausea, vomiting, constipation, diarrhea, mouth sores, and alopecia. Other toxicities may include pneumonitis, cold-induced neuropathy, cumulative neuropathy, secondary malignancies, hepatic and renal toxicities. The patient signed informed consent and will follow-up as directed. Of note he does have a history of chronic hepatitis C status post treatment withEpclusa with complete response. He reports that his mother had pancreatic cancer and in her 60s as well as a father with pancreatic cancer who at age 82. Brother had lung cancer but no other family history of malignancies. He is an active smoker 1/2 pack/day since age 14 and continues actively smoking. He denies alcohol use quitting about 7 years ago when he was diagnosedwith hepatitis C. 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 DIAGNOSIS: 1. 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 2. Diabetes mellitus, insulin requiring with mild peripheral neuropathy 3. History of hepatitis C status post curative Epclusa therapy around 2013. 4. Family history of mother and father with pancreatic cancer 5. History of anxiety disorder and depression 6. Ongoing tobacco use 7. Unintentional weight loss - Summary of Therapies Summary of Therapies: 1. Whipple's procedure/pancreaticoduodenectomy 02/15/2020. 2. FOLFIRINOX therapy commenced 04/12/2020. FOLFIRINOX: Day 1: Oxaliplatin 85mg/m2 IV over 2 hours; Irinotecan 180mg/m2 IVover 90 minutes; Leucovorin 400mg/m2 IV over 90 minutes; followed by Day 1: Fluorouracil 400mg/m2 IV push; followed by Days 1-2 Fluorouracil 2,400 mg/m2 IV continuous infusion over 46 hours. Repeat cycle every 2 weeks x 12 cycles. --cycle 6 06/22/2020--Will dose reduce oxaliplatin 20% for grade 3 nausea/grade 2neuropathy/renal insufficiency --Cycle 7 07/04/2020--on hold for intractable dyspnea and oral mucositis, 07/13/2020 continuing to hold cycle 7 for another week per patient request for ongoing dyspnea. --Resumed cycle 7 07/20/2020: 80% dose for all meds. He had another 20% dose reduction of oxaliplatin and irinotecan for cycle 10. He had 2-week delay of cycle 11 for psychiatric hospitalization. --Resuming cycle 11 09/20/2020: 60% dose oxaliplatin and irinotecan, 80% dose of 5-fluorouracil/leucovorin. -- Last cycle (12) 10/03/2020. ROS Details: All systems reviewed & no additional complaints except as documented Subjective/ROS - Narrative: CONSTITUTIONAL: Positive for mild fatigue--PS 1, negative for fever or night sweats. Recurrent anxiety and psychological distress--improved since hospital stay in early September 2020 as per HPI, resumed normal diet. HEAD AND NECK: Negative for changes in hearing and vision. No oral ulcers. No change in voice, nasal congestion and nasal drainage. Improved taste. ResolvedOdynophagia. PULMONARY: Negative for chest pain, cough and positive for marked dyspnea--no wheezing today. No pneumonia or PE on chest CT in 01/2022. CARDIOVASCULAR: Negative for claudication and irregular heartbeat/palpitations. + mid chest pain pending stress test 04/2021. GASTROINTESTINAL: Positive for intermittent epigastric abdominal pain as per HPI(well healed postop Whipple procedure). Positive for early satiety with decreased appetite but stable weight over the last 3 months. Stable nausea without vomiting or constipation. Positive for intermittent diarrhea, not consistently using Imodium. GENITOURINARY: Negative for dysuria and hematuria. ENDOCRINE: Negative for cold intolerance and heat intolerance. Diabetes mellitus about 10 years, worsening control prior to pancreas cancer diagnosis. Now insulin dependent. CENTRAL NERVOUS SYSTEM: Negative for gait disturbance and headache. + peripheral neuropathy hands and feet--stable, chronic. PSYCHIATRIC: Improvement of prior anxiety/depression--resolution of prior suicidal ideation since hospital stay for early September 2021. DERMATOLOGICAL: Negative for pruritus and rash. Negative for suspicious skin lesions. Prior bedbugs--isolation precautions. No visible infestation today. MUSCULOSKELETAL: Negative for back pain and bone/joint symptoms. HEMATOLOGICAL: Negative for bleeding and easy bruising. Positive for 1 unit redblood cell transfusion early July 2020. Negative for history of thromboembolic disease ALLERGY: Negative for environmental allergies and food allergies. [facility] - History Attestation statement: The following information was validated with the patient. Source: Old Records Reviewed - Medical History Medical History: Medical History (Last Reviewed 04/26/21 @ 17:25 by Margaret Delgado MD) Amputated toe of right foot Anxiety Blockage of a bile duct liver stents placed d/t blockage Depression Diabetes mellitus Family history of pancreatic cancer History of hepatitis C Hyperlipemia Hypertension Neuropathy Odynophagia Pancreatic cancer - Surgical History Surgical History: Surgical History (Last Reviewed 04/26/21 @ 17:25 by Margaret Delgado MD) History of cholecystectomy done at time of whipple History of gastrointestinal surgery whipple procedure 02/2020 - Family History Family History: Family History (Last Reviewed 04/26/21 @ 17:25 by Margaret Delgado MD) Father Pancreatic cancer Mother Pancreatic cancer - Social History Smoking Status: Current every day smoker Tobacco Type: cigarettes Substance Use Type: None Substance Abuse Comment: states I smoke marijuana every now and then Home Medications & Allergies Allergies No Known Allergies Allergy (Verified 04/26/21 10:08) Home Medications cholecalciferol (vitamin D3) 25 mcg (1,000 unit) tablet 50 mcg PO DAILY #30 tab 09/16/20 [Rx Confirmed 04/26/21] clonazepam 1 mg tablet 1 mg PO TID tab 09/16/20 [Rx Confirmed 04/26/21] hydrochlorothiazide 25 mg tablet 25 mg PO DAILY 15 Days #15 tab 09/16/20 [Rx Confirmed 04/26/21] linagliptin 5 mg tablet (Tradjenta) 5 mg PO DAILY.WITH.BKFAST 30 Days #30 tab 09/16/20 [Rx Confirmed 04/26/21] lorazepam 2 mg tablet 1 mg PO BID PRN #0 tab 09/16/20 [Rx Confirmed 04/26/21] mirtazapine 7.5 mg tablet 22.5 mg PO QHS 15 Days #50 tab 09/16/20 [Rx Confirmed 04/26/21] venlafaxine 37.5 mg capsule,extended release 24 hr 112.5 mg PO DAILY 15 Days #60cap 09/16/20 [Rx Confirmed 04/26/21] lorazepam 1 mg tablet (Ativan) 1 mg PO Q12H PRN 5 Days #10 tab 11/06/20 [Rx Confirmed 04/26/21] tramadol 50 mg tablet 50 mg PO Q6H PRN 30 Days #60 tab 02/22/21 [Rx Confirmed 04/26/21] pregabalin 50 mg capsule (Lyrica) 50 mg PO BID 04/26/21 [History Confirmed 04/26/21] Objective - Height/Weight Height/Weight: Height 6 ft 2 in Weight 92.986 kg BSA for Today's Weight 1.93 - Vital Signs Vital Signs: 04/26/21 10:09 Temperature 98.0 F Pulse Rate [Left Brachial] 108 H Respiratory Rate 16 Blood Pressure [Left Arm] 163/80 H 02 Sat by Pulse Oximetry 99 - Pain Tongue Pain Intensity: 0 - Distress Screening Distress Screen Results: RN Distress Screening Start: 04/11/20 13:45 Freq: Q30D Status: Active Protocol: Document 07/07/20 10:25 MR (Rec: 07/07/20 10:28 MR [id number]) Distress Screening Distress Score: 8 Day to Day Concerns Insurance,Money Physical Concerns Pain,Feeling tired or a lack of energy,Trouble Sleeping Emotional Concerns Depression,Loss of interest in usual activities,Nervousness, Sadness,How my body looks, Feeling hopeless,Feeling uncertain about the future Spiritual or Hindu Concerns: Relating to a higher being Distress Screening Total 8 Distress score of 4 or more discussed Yes with patient? Distress screening follow up: Zoë RN patient navigator and Cathryn patient navigator notified. pt refusing assistance at this time. Physical Exam Narrative: CONSTITUTIONAL: The patient is mildly disheveled, in no respiratory distress. He is fatigued and mildly cachectic. HEAD / FACE: Normocephalic. EYES: Pupils are equal and reactive to light. Conjunctivae and lids are benign in appearance. Ocular movement intact. EARS: Hearing grossly intact. NOSE / MOUTH / THROAT: Nose, mouth, tongue and oropharynx--No oral ulcers of thrush today. NECK / THYROID: Neck is supple. Thyroid is symmetrical, without thyromegaly, masses or palpable nodules. LYMPHATIC: No palpable cervical, supraclavicular, axillary, or inguinal adenopathy. RESPIRATORY: Normal to inspection. Lungs clear to auscultation and percussion. CARDIOVASCULAR: Regular rate and rhythm. No murmurs, gallops, or rubs. VASCULAR: Carotid, radial, femoral and pedal pulses present bilaterally. No bruits. ABDOMEN: Bowel sounds normoactive. Soft, mild epigastric tenderness and non- distended (not changed from prior exams). No hepatosplenomegaly. No masses. Well healed incisions from Whipple procedure. GENITOURINARY: No CVA tenderness. No suprapubic fullness or tenderness. No groinadenopathy. No evidence of hernias. INTEGUMENTARY: The skin is unremarkable. No rashes. No suspicious lesions. No visible bedbugs today on exam. BACK / SPINE: The back is nontender. No stepoff deformity. MUSCULOSKELETAL: Normal musculature, no joint deformities or abnormalities, normal range of motion for all four extremities. EXTREMITIES: No edema, cyanosis or clubbing. No Kyle sign. NEUROLOGICAL: Alert and oriented. Cranial nerves intact. No gross motor or sensory deficits. PSYCHIATRIC: Calmer and less depressed mood on visit today, no SI/HI. - ECOG Performance Status ECOG Score: 1 Results - Labs Labs: Diagram of Most Recent CBC and CMP 04/24/21 11:13 04/24/21 11:13 Labs - Last 7 Days 04/24/21 11:13: CA 19-9 Antigen 24 04/24/21 11:13: PHA Creatinine Clear 50.67, Sodium 131 L, Potassium 4.9, Chloride 99, Carbon Dioxide 22.3, BUN 42 H, Creatinine 1.69 H, Est GFR ( Amer) 50, Est GFR (Non-Af Amer) 41, Glucose 395 H, Calcium 9.3, Total Bilirubin 0.3, AST 45 H, ALT 49, Alkaline Phosphatase 183 H, Total Protein 7.7, Albumin 3.8, Globulin 3.9, Albumin/Globulin Ratio 1.0 04/24/21 11:13: Corrected WBC 9.8, Uncorrected WBC Count 9.8, RBC 4.13, Hgb 12.9L, Hct 37.8 L, MCV 91.6, MCH 31.2, MCHC 34.1, RDW 13.7, Plt Count 187, MPV 9.4, Neut % (Auto) 71.0, Lymph % (Auto) 19.2, Alfalfa % (Auto) 5.8, Eos % (Auto) 3.5, Baso % (Auto) 0.5, Neut # (Auto) 7.0, Lymph # (Auto) 1.9, Alfalfa # (Auto) 0.6, Eos# (Auto) 0.3, Baso # (Auto) 0.1, Nucleated RBC % (auto) 0.1 - Impressions Restaging CT CAP ordered in one week (04/2021) Assessment and Plan - TNM Staging Stagin02/15/2020: 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 (1) Primary cancer of head of pancreas Upfront Whipple procedure for resectable pancreas cancer (initial biopsies suspicious but nondiagnostic for malignancy). 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 Poor risk features and good performance status (although mild baseline diabetic neuropathy). He consented to FOLFIRINOXadjuvant therapy. General surgery referral for infusion port placement. 04/25/2020: No significant toxicities at followup visit (cycle 1 day 1 was 04/12/2020). We will continue 100% dose FOLFIRINOX and follow closely for hyperglycemia and neuropathy symptoms due to his baseline diabetic neuropathy. 05/25/2020: Patient has increased fatigue, early satiety, and weight loss. Adding Boost at least twice daily and encouraging use of Imodium and Zofran regularly. Okay for cycle 4 today with stable labs. Restaging CT chest abdomenpelvis will be scheduled prior to cycle 6 in 1 month I will see him at that time. 06/20/2020: Worsening fatigue, nausea, poor appetite, and weight loss. Worsening neuropathy. Decrease oxaliplatin by 20%, replete low potassium and magnesium. No evidence of recurrence on CT CAP. Reassess Saturday whether K and Mg returned today normal and OK to resume FOLFIRINOX. F/u 1 week if dose delay, 2 weeks if tx. 07/06/2020: Admitted 07/04/2020 for work-up of sudden onset tachypnea with normal oxygen saturation. CT PE protocol was negative for pulmonary embolism or infiltrate. Lactic acid was negative for sepsis and VBG showed respiratory alkalosis with metabolic acidosis. Blood cultures did show coagulase negative staph from infusion port but negative on peripheral culture. He has severe odynophagia and mouth sore. For now I am hydrating him with 1 L normal saline, holding chemotherapy until resolution of toxicities. We will start vancomycin 1.5 g daily (would calculate to 1 g twice daily but patient does not wish to return twice daily for infusions). We will reassess Saturday to see if he should continue 2 weeks of vancomycin. Also giving IV morphine 2 mg now and redose every 15 to 20 minutes until pain less than 4/10. Adding Diflucan elixir and acyclovir elixir for his odynophagia. Consult to palliative medicine for further titration of outpatient pain medication. Follow-up in 1 week to review symptoms and to determine if he is stable to resume adjuvant FOLFIRINOX therapy with likely 50% dose reduction of 5-FU leucovorin. 07/13/2020: Negative blood cultures and CT PE protocol negative for pulmonary embolism or infiltrate. His dyspnea persists despite levofloxacin as well as acyclovir and nystatin for his prior odynophagia. His pain control is stable. I am sending him for pulmonary evaluation with full PFTs and lung volumes with DLCO as well as trial of albuterol nebulizer with electrolyte repletion today and sending with Eladio HENDERSON. Follow-up with me in 2 weeks and we will consider resuming FOLFIRINOX at 80% dose overall of all drugs at his next follow-up if symptoms remain stable. Otherwise he may stop adjuvant therapy and continue observation only for resected pancreas cancer with anaplastic carcinoma. 07/25/2020: Resumed cycle 7 FOLFIRINOX at 80% dose of all meds--continued nausea, fatigue, and anxiety with subjective dyspnea. WBC 35,000 which may be increased response to Zarxio. No evidence of infection. PFTs consistent with asthma (will address below). Drop Zarxio with day 8 CBC and followup next cycle. Patient declines further dose reduction of FOLFIRINOX but will get Aloxi/Hydration today. 08/10/2020: Stable fatigue and nausea for cycle 7 FOLFIRINOX at 80% dose of all meds--continued nausea, fatigue, and anxiety with subjective dyspnea. WBC now 7000--dropped growth factors to see if this would relieve nausea and dyspnea. Pulmonary follow-up later this month and restaging CT scans in early September. Continue current dose for remaining cycles of FOLFIRINOX. 09/19/2020: 2-week delay for cycle 11 FOLFIRINOX with now 60% dose of oxaliplatinand irinotecan, 80% for all other medications. Stable grade 1 peripheral neuropathy. Hospitalized for suicidal ideation 09/10-11/2020. Symptoms now with improved control since increasing Remeron, adding Effexor, and changing Ativan to Klonopin. He has ongoing follow-up with psychiatry and dyspnea is improved. 10/19/2020: Completed 12 cycle FOLFIRINOX with last cycle 10/03/2020. CA 19-[address] CAP without evidence of recurrence. Followup neuropathy on current antidepressant medications and f/u with palliative medicine (should improve off chemotherapy) Next follow-up with me in 3 months after completion of FOLFIRINOX for exam and restaging tumor marker CA 19-9, sooner prn. We will review survivorship template at next visit. 01/26/2021: Altagracia is seen for routine 3-month follow-up for resected pancreas cancer (T2N0); s/p completion of 12 cycles FOLFIRINOX adjuvant chemotherapy, which concluded on 10/03/2020. Post treatment CT scans showed no evidence of recurrence in October 2020. He is here today for physical exam, ROS, and review of labs (CBC,CMP and CA 19-9). Clinically the patient looks well; he has gained > 30 pounds since his last visit 3 months ago and reports no new constitutional symptoms. Appetite has improved significantly; as well as, taste and fatigue. Hespecifically denies any issues with headaches, fever/chills, recent/recurrent infections, night sweats, weight loss, chest pain, cough, shortness of breath, nausea/vomiting, abdominal pain, diarrhea/constipation, new bony pain, skin rash, lymphadenopathy or lower extremity edema. His only complaint today is continued peripheral neuropathy (hands/feet) - Grade 1 (had peripheral neuropathy at baseline due to long standing diabetes). He is currently taking Gabapentin 400 mg daily with no improvement. --He is noted on laboratories to have slight rise in his CA 19-9 from 26 ---> 40. CBC is relatively unremarkable, with improving anemia. CMP reveals worseningof baseline creatinine and GFR (GFR= 47), normal electrolytes and calcium. He has mild elevation of AST (55) and increased Alkaline phosphate (360) with normal bilirubin. He reports that his PCP has referred him to a buffing machine operator semiautomatic and he has an upcoming appt in March 2021. 02/22/2021: Due to rising CA 19-9 level, SUZY Barrios ordered CT chest, abdomen/pelvis. She was unable to reach him for phone followup, but when he wascontacted he reported recurrent brief episodes of unexplained epigastric pain. No progression on restaging images, but he will see gastroenterology for EGD. Tramadol 50mg po q6h prn for pain. I sent CBC, CMP, amylase, lipase and will contact him with results. 04/26/2021: Midchest pain--pending stress test and EGD for further evaluation. Due for CT Chest/Abdomen/Pelvis--ordered this week and will followup results in one week. Tumor marker CA 19-9 24 (stable). If no recurrence, will continue every 3 month surveillance. 25 minute Moderate complexity visit. (2) Cancer-related pain Recent recurrent epigastric pain/recent chest pain as noted above--ordered restaging imaging CT CAP and has pending stress test this week. Rescheduled forEGD with gastroenterology. Tramadol 50mg po q6h prn for recurrent pain. 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 Improved neuropathy since increased Gabapentin to 300 TID. He is not following with palliative medicine and is not utilizing any opioid pain medications but has Tramadol for prn use. (4) Abnormal kidney function Increased creatinine--1L bolus today, consider nephrology consultation (may be facilitated by primary care). (5) Major depressive disorder Qualifiers: Major depression episode severity: moderate The patient was discharged home in early September after hospitalization for depression and suicidal ideation. He reports symptoms are much improved and anxiety is better since change of medications. He felt hopeless with anhedonia and passive suicidal ideation but no hallucinations. He now has no active suicidal ideation and had not had prior psychiatric hospitalizations, suicide attempts, or family history of this. No use of alcohol or illicit drugs. Following with primary care Dr. Tiki Dockery who is primary prescriber of pain medication. He now has follow-up with Dr. Bee of psychiatry as well. We will continue to follow closely after completion of adjuvant chemotherapy. He is no longer seeing palliative medicine. Denies SI/HI. (6) Anemia complicating neoplastic disease Hemoglobin was 7.7 on 07/05/2020 and due to his tachypnea and distress he was transfused 1 unit of packed red blood cells. Now hemoglobin has improved to 10.5 since 20% dose reduction of all chemotherapy meds. Further improvement 10.7 which has been steady in the last 2 months. Last hemoglobin 12.9; improving after ~ 6 months off chemotherapy. (7) Cancer cachexia Significant improvement in overall status, appetite and nutrition. He has gained approximately 30+ pounds since October 2020. (8) Diabetes mellitus with neuropathy Qualifiers: Diabetes mellitus type: type 2 Diabetes mellitus emt intermediate insulin use: unspecified halfway insulin use status Qualified Code(s): E11.40 - Type 2 diabetes mellitus with diabetic neuropathy, unspecified Followed by Dr. Dockery--improving control since surgery, completing chemotherapy, and adjustment of insulin. (9) Asthma Qualifiers: Asthma severity: moderate Asthma persistence: persistent Negative evaluation for PE, treated for coag negative staph infection therefore he completed a course of levofloxacin. He is not hypoxic but did have some mildwheezing on exam today persistent dyspnea with exertion. He did not feel improved after albuterol MDI use at home (although only using about once daily). PFTs show reversible obstruction. Encouraged to use albuterol MDI 4 times daily and added Pulmocort MDI twice daily. Following with pulmonary. (10) Infestation by bed bug Precautions for future visits. - Chemo Plan Chemo Plan (Dose, Rate, Freq): Completed adjuvant FOLFOX therapy in late September 2020. Number of Cycles: 12 Goal of Treatment: Curative - Time with Patient Time Spent with Patient (Follow Up Visit): 25 minutes - Moderate complexity visit--symptom review, order restaging scans and stable tumor markers. Coordination of Care & Counseling Time: Greater than 50% of time spent with patient was for coordination of care (as documented) and [id number] counseling of patient and/or family. Dictated By: Margaret Delgado MD DD/ [id number] Signed By: <Electronically signed by MD Margaret Delgado> 04/26/21 [id number] [facility] Work Phone: [phone]) 953-473912-15-2021 Progress note Author Margaret Delgado [facility] February 22, 2021 8:38pm Note Date/Time February 22, 2021 8:03pm [facility] [place] [id number] Hem/Onc Follow Up Note - OP Signed Patient: Altagracia Conway MR#: [id number] : 1955 Acct:[id number] Age/Sex: 65 / M Type: REG RCR Copies to: DO Nasim Allen MD~ Subjective Date/Time of Service: Date of Service: 02/22/2021 Time of Service: 15:30 Chief Complaint: Patient is here today d/t having chest pain and gets shortness of breath and hot and sweaty when this happens. This last about 5 minutes and happens about once a day. He also has a cough and wheezing. This started about aweek ago HPI: 02/22/2021: SUZY Sands attempted to contact Altagracia with CT results but could not reach him after multiple attempts. When he was finally reached, he reported about one week history of recurrent epigastric pain which lasts about 5minutes and takes away my breath . Not associated with eating or at a certain time of day. No change in urine or stool frequency and nausea stable. His CT CAP showed no evidence of metastatic disease. I sent labs to determine if he has worsening LFTs or pancreatitis. If unremarkable, he already has an appointment with GI in March--we will try to have him seen sooner for EGD if possible. Until then he is prescribed Tramadol 50mg po q6h prn (#60, RF0). He may f/u as previously scheduled in 04/2021, sooner prn. 01/26/2021: Altagracia presents for routine 3 month followup for T2N0M0 resected pancreatic cancer to review symptoms and labs (tumor markers). Clinically the patient looks well; he has gained > 30 pounds since his last visit 3 months ago and reports no new constitutional symptoms. Appetite has improved significantly;as well as, fatigue. He specifically denies any issues with headaches, fever/chills, recent/recurrent infections, night sweats, weight loss, chest pain, cough, shortness of breath, nausea/vomiting, abdominal pain, diarrhea/constipation, new bony pain, skin rash, lymphadenopathy or lower extremity edema. His only complaint today is continued peripheral neuropathy (hands/feet) - Grade 1 (had peripheral neuropathy at baseline due to long standing diabetes). He is currently taking Gabapentin 400 mg daily with no improvement. He is noted on laboratories to have slight rise in his CA 19-9 from 26 ---> 40. CBC is relatively unremarkable, with improving anemia. CMP reveals worsening of baseline creatinine and GFR (GFR= 47), normal electrolytes and calcium. He has mild elevation of AST (55) and increased Alkaline phosphate (360) with normal bilirubin. He reports that his PCP has referred him to a buffing machine operator semiautomatic and he hasan upcoming appt in March 2021. 10/19/2020: One month followup to review restaging CT Chest Abdomen and Pelvis with tumor markers after completing all 12 cycles of FOLFIRINOX. Has numbness of bilateral hands all the time but this is not painful for him. No further suicidal ideation and has scheduled followup with his psychiatrist in November. No abdominal pain and regaining weight. Still has bedbug infestation--taking precautions for visits but no visualized bugs on exam today. Reviewed normal tumor marker CA 19-[address] without evidence of recurrence. Continue port flushes every 6 weeks. Next f/u for symptom review and tumor marker in 3 months, sooner if new symptoms. 09/19/2020: Altagracia is here to resume cycle 11-day 1 FOLFIRINOX tomorrow. He has had a dose delay of about 2 weeks for cycle 11 due to hospitalization on 1S 09/10-11/2020 for suicidal ideation. He reported feeling overwhelmed due to multiple psychosocial stressors including his physical illness with difficulty sleeping and depressed mood. He had increased dose of Remeron to 22.5 mg nightly, Effexor added for depression titrating up to 112.5 mg daily, and lorazepam was changed to Klonopin 1 mg 3 times daily. He was deemed safe for discharge home he notes that he feels much improved. He was diagnosed with bedbug infestation last month and we have performed room cleaning precautions. No current pruritusand there was chemotherapy related fatigue and mild peripheral neuropathy has been improved since he had his 2-week delay in therapy. He denies any current dyspnea with exertion. It feels stable to resume his 11th cycle (last 2 cycles)of FOLFIRINOX therapy tomorrow. I will send tumor markers CA 19-9 and coordinate follow-up CT chest abdomen pelvis for restaging in about 1 month prior to his next follow-up. 08/11/2020: Cycle 9 Day 3 FOLFIRINOX--still notes dyspnea on exertion, using inhalers and has pulmonary medicine appointment later this month. Persistent nausea, relieved somewhat with phenergan. Mild peripheral neuropathy lasting a few days. He noted darker stools at triage but no constipation/diarrhea, or BRBPR. Hemoglobin stable. He has stable WBC--no signs of infection. Declines dose reduction due to fear of recurrence. Next f/u with cycle 11, day 1--soonerprn. 07/25/2020: Altagracia resumed FOLFIRINOX cycle 7 one week ago at 80% dose of all meds. He notes persistent dyspnea and does not feel improved with albuterol metered dose inhalers. I offered to delay chemo or reduce dose further, but he fears recurrence and wants to proceed. He requested IV nausea meds and hydration today. I will contact Dr. Dockery and recommend increasing Ativan totwice daily with his Abilify and Cymbalta. His PFTs are consistent with asthma--reversible obstruction. I'm adding budesonide (Pulmcort) twice daily toAlbuterol MDIs. He cannot get an appointment with pulmonary medicine until 08 September. WBC 35,000--some of his anxiety may be due to growth factors. I will drop Zarxio next cycle and I will see him in 2 weeks after cycle 8. 07/13/2020: Altagracia is here for follow-up after delaying cycle 7 chemotherapy over the past week. He was due to be treated yesterday but has continued dyspnea with exertion and wishes to defer therapy another week. He was admitted overnight 1 week ago for his dyspnea and treated with antibiotics as well as acyclovir and nystatin swish and swallow for odynophagia which is slowly improving. He still reports that he has dyspnea with exertion and climbing stairs. On exam today he had some mild wheezing on the right and has not been using MDIs. I informed him that we will send for PFTs with lung volumes and DLCO as well as a trial of albuterol nebulizer in treatment room today and MDIs at home. He also has mild hypokalemia and hypomagnesemia. If he continues to improve steadily we may treat with overall 80% dose of all meds for FOLFIRINOX and I will see him in follow-up in 2 weeks. 07/06/2020: Altagracia would have been scheduled for cycle 7-day 1 on Tuesday 07/04, butthis was held when he presented with significant dyspnea on exertion and was sent to the emergency department. CT PE protocol was negative for pulmonary embolism and oxygen saturation was 98% on room air but he had significant tachypnea. He had no associated cough but reported a mouth sore on the left side of his tongue and severe odynophagia (10/10 pain). He has been using topical viscous lidocaine which is not resolved his symptoms. He was admitted andblood culture through his port showed a presumptive coagulase-negative staph through the port and no growth from peripheral culture through the wrist. Also had negative nasopharyngeal panel, negative coronavirus, and negative urine culture. He still has significant tachypnea with respiratory rate about 25 and heart rate 116. Saturation is 99% on room air. --We will continue to hold his chemotherapy. I am treating him with 1 L fluid normal saline, 2 mg IV morphine and will repeat every 15 to 20 minutes until pain less than 4 out of 10, and start vancomycin for 2-week course with dosing per pharmacy. This can be given as an outpatient. He does still have significant leukocytosis which could be due to prior Neulasta and received 1 unit of packed red blood cells yesterday for hospital discharge for hemoglobin 7.7. I will reassess him in 1 week to determine if he can resume chemotherapy. I am also prescribing acyclovir and Diflucan elixirs for his odynophagia. We will put in a palliative medicine consult. 06/20/2020: Altagracia is here for cycle 6-day 1 adjuvant FOLFIRINOX. He has persistent nausea without emesis (added compazine last week), poor appetite, andgeneralized weakness. He lost 4kg in the past 2 weeks. Also notes increased numbness of hands and feet. Potassium (2.7) and Magnesium (1.4) returned low today--hydrating with 1L Normal saline with 40meq KCl IV and 4g MgSO4 IV today. Send home with oral KCl 20meq bid. We will recheck K and Mg Saturday and dose reduce Oxaliplatin by 20% for next cycle. If continued nausea and fatigue--ok to delay therapy one week. Restaging CT without evidence of recurrence 06/15/2020. F/u 1 week if dose delay, 2 weeks if treated Saturday. 05/25/2020: Altagracia is here for cycle 4-day 1 adjuvant FOLFIRINOX. He notes that he has intermittent nausea but is well controlled on his current medications. He notes early satiety and was recently given additional boost to use once daily. He has lost about 4 kg over the last month. 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 Fatigue is stable and hedenies abdominal or back pain. Renal function has proved since starting therapy. He has moderate anemia but does not require transfusion. At this point will continue full dose FOLFIRINOX and restage with CT chest abdomen pelvis prior to cycle 6 as well as CA 19-9. Next follow-up in 1 month with labs. 04/25/2020: Altagracia commenced adjuvant FOLFIRINOX C1D1 on 04/12/2020--tolerated well. Denies fatigue, nausea, constipation/diarrhea, abdominal pain or cold-induced neuropathy. F/u labs unremarkable. He wishes to move infusion to if possible for cycle 2 due to an important business meeting tomorrow (will have to set up [facility] inpatient duckworth eval to d/c 5FU pump Saturday). Otherwise no concerns--f/u with me in one month for tumor markers and exam--continue 100% dose. PREVIOUS HISTORY: This is a 64-year-old male who originally presented to [facility] with nausea, vomiting, diarrhea in October 2019 and was found to have elevated liver enzymes with total bilirubin 12.7, alkaline phosphatase 408, ALT 247, AST 197, lipase 161, white blood cell count of thousand 100, hemoglobin 12.9, platelets 139,000. INR 1.2 and hemoglobin A1c 9.1. MRCP showed extensiveextra and intrahepatic biliary dilatation up to 1.5 cm with a dilated pancreaticduct at 5 mm without discrete mass. ERCP 11/10/[address] Weaver revealed 2 mm stricture in the common bile duct, status post sphincterotomy, brushings, and placement of plastic stent. He was referred for EUS/ERCP on 12/07/[address] Margaret Malcolm with fine-needle biopsy showing atypical cells present, suspicious for carcinoma. At that time the biliary stent was partially occluded and there was a single severe biliary stricture in the lower third of the main bile duct (malignant appearing) status post dilation and brushing also showing atypical ductal cells with another placement of plastic pancreatic stent. His care was further delayed about 1 month when he was unable to be reached by phone to discuss further plan of care. He was seen by gastroenterology at [facility] in late December complaining of increased epigastric pain. He also was noted to have about 20 pounds of weight loss and worsening diabetes. January 10 he had repeat endoscopic ultrasound with a masslike region in the pancreatic head and again brushings showed atypical cells with fine-needle aspiration again with atypical cells suspicious for cancer. CT abdomen pelvis at [facility] 01/22/2020 revealed no distant metastatic disease. IMPRESSION: 1. Pancreatic head mass measuring 2.6 x 2.2 x 3.0 cm, with 180 degree abutment and contour abnormality of the patent SMV, with increasing pancreatic ductal dilatation, highly concerning for pancreatic adenocarcinoma. The superior mesenteric artery and celiac artery are not involved. Malignant involvement of a 9 mm peripancreatic lymph node is not excluded. 2. Status post common bile duct stent placement. Air within the stent, left greater than right pneumobilia, and air within the gallbladder all suggest stent patency. 3. Enlarged prostate. Please correlate with PSA. Due to nondiagnostic biopsies and resectable disease, he consented to upfront Whipple procedure (pancreatoduodenectomy) performed 02/15/2020. He tolerated surgery well and has returned to eating a normal diet. Diabetes is well controlled on his current regimen with insulin managed by Dr. Tiki Dockery at [facility]. 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 She does have some peripheral neuropathy from diabetes but this does not limit his activity. Given high risk features of perineural and lymphovascular invasion as well as anaplastic poorly differentiated histology, we discussed FOLFIRINOX adjuvant therapy which may commence after placement of infusion port in the next 1 to 2 weeks. Today we reviewed chemotherapy counseling for FOLFIRINOX (5-fluorouracil, leucovorin, irinotecan, oxaliplatin every 2 weeks for 12 cycles). Goal of therapy is curative. Common toxicities were reviewed to include myelosuppression, fatigue, nausea, vomiting, constipation, diarrhea, mouth sores, and alopecia. Other toxicities may include pneumonitis, cold-induced neuropathy, cumulative neuropathy, secondary malignancies, hepatic and renal toxicities. The patient signed informed consent and will follow-up as directed. Of note he does have a history of chronic hepatitis C status post treatment withEpclusa with complete response. He reports that his mother had pancreatic cancer and in her 60s as well as a father with pancreatic cancer who at age 82. Brother had lung cancer but no other family history of malignancies. He is an active smoker 1/2 pack/day since age 14 and continues actively smoking. He denies alcohol use quitting about 7 years ago when he was diagnosedwith hepatitis C. 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 DIAGNOSIS: 1. 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 2. Diabetes mellitus, insulin requiring with mild peripheral neuropathy 3. History of hepatitis C status post curative Epclusa therapy around 2013. 4. Family history of mother and father with pancreatic cancer 5. History of anxiety disorder and depression 6. Ongoing tobacco use 7. Unintentional weight loss - Summary of Therapies Summary of Therapies: 1. Whipple's procedure/pancreaticoduodenectomy 02/15/2020. 2. FOLFIRINOX therapy commenced 04/12/2020. FOLFIRINOX: Day 1: Oxaliplatin 85mg/m2 IV over 2 hours; Irinotecan 180mg/m2 IVover 90 minutes; Leucovorin 400mg/m2 IV over 90 minutes; followed by Day 1: Fluorouracil 400mg/m2 IV push; followed by Days 1-2 Fluorouracil 2,400 mg/m2 IV continuous infusion over 46 hours. Repeat cycle every2 weeks x 12 cycles. --cycle 6 06/22/2020--Will dose reduce oxaliplatin 20% for grade 3 nausea/grade 2neuropathy/renal insufficiency --Cycle 7 07/04/2020--on hold for intractable dyspnea and oral mucositis, 07/13/2020 continuing to hold cycle 7 for another week per patient request for ongoing dyspnea. --Resumed cycle 7 07/20/2020: 80% dose for all meds. He had another 20% dose reduction of oxaliplatin and irinotecan for cycle 10. He had 2-week delay of cycle 11 for psychiatric hospitalization. --Resuming cycle 11 09/20/2020: 60% dose oxaliplatin and irinotecan, 80% dose of 5-fluorouracil/leucovorin. -- Last cycle (12) 10/03/2020. ROS Details: All systems reviewed & no additional complaints except as documented Subjective/ROS - Narrative: CONSTITUTIONAL: Positive for mild fatigue--PS 1, negative for fever or night sweats. Recurrent anxiety and psychological distress--improved since hospital stay in early September as per HPI, resumed normal diet. HEAD AND NECK: Negative for changes in hearing and vision. No oral ulcers. No change in voice, nasal congestion and nasal drainage. Improved taste. ResolvedOdynophagia. PULMONARY: Negative for chest pain, cough and positive for marked dyspnea--no wheezing today. No pneumonia or PE on chest CT CARDIOVASCULAR: Negative for claudication and irregular heartbeat/palpitations. GASTROINTESTINAL: Positive for 1 week of recurrent epigastric abdominal pain as per HPI (well healed postop Whipple procedure). Positive for early satiety withdecreased appetite but stable weight over the last 3 months. Stable nausea without vomiting or constipation. Positive for intermittent diarrhea, not consistently using Imodium. GENITOURINARY: Negative for dysuria and hematuria. ENDOCRINE: Negative for cold intolerance and heat intolerance. Diabetes mellitus about 10 years, worsening control prior to pancreas cancer diagnosis. Now insulin dependent. CENTRAL NERVOUS SYSTEM: Negative for gait disturbance and headache. + peripheral neuropathy hands and feet--stable, chronic. PSYCHIATRIC: Improvement of prior anxiety/depression--resolution of prior suicidal ideation since hospital stay for early September. DERMATOLOGICAL: Negative for pruritus and rash. Negative for suspicious skin lesions. Prior bedbugs--isolation precautions. No visible infestation today. MUSCULOSKELETAL: Negative for back pain and bone/joint symptoms. HEMATOLOGICAL: Negative for bleeding and easy bruising. Positive for 1 unit redblood cell transfusion early July 2020. Negative for history of thromboembolic disease ALLERGY: Negative for environmental allergies and food allergies. [facility] - History Attestation statement: The following information was validated with the patient. Source: Old Records Reviewed - Medical History Medical History: Medical History (Last Reviewed 02/22/21 @ 20:16 by Margaret Delgado MD) Amputated toe of right foot Anxiety Blockage of a bile duct liver stents placed d/t blockage Depression Diabetes mellitus Family history of pancreatic cancer History of hepatitis C Hyperlipemia Hypertension Neuropathy Odynophagia Pancreatic cancer - Surgical History Surgical History: Surgical History (Last Reviewed 02/22/21 @ 20:16 by Margaret Delgado MD) History of cholecystectomy done at time of whipple History of gastrointestinal surgery whipple procedure 02/2020 - Family History Family History: Family History (Last Reviewed 02/22/21 @ 20:16 by Margaret Delgado MD) Father Pancreatic cancer Mother Pancreatic cancer - Social History Smoking Status: Current every day smoker Tobacco Type: cigarettes Substance Use Type: None Substance Abuse Comment: states I smoke marijuana every now and then Home Medications & Allergies Allergies No Known Allergies Allergy (Verified 02/22/21 15:33) Home Medications cholecalciferol (vitamin D3) 25 mcg (1,000 unit) tablet 50 mcg PO DAILY #30 tab 09/16/20 [Rx Confirmed 01/26/21] clonazepam 1 mg tablet 1 mg PO TID tab 09/16/20 [Rx Confirmed 01/26/21] hydrochlorothiazide 25 mg tablet 25 mg PO DAILY 15 Days #15 tab 09/16/20 [Rx Confirmed 01/26/21] linagliptin 5 mg tablet (Tradjenta) 5 mg PO DAILY.WITH.BKFAST 30 Days #30 tab 09/16/20 [Rx Confirmed 01/26/21] lorazepam 2 mg tablet 1 mg PO BID PRN #0 tab 09/16/20 [Rx Confirmed 01/26/21] mirtazapine 7.5 mg tablet 22.5 mg PO QHS 15 Days #50 tab 09/16/20 [Rx Confirmed 01/26/21] venlafaxine 37.5 mg capsule,extended release 24 hr 112.5 mg PO DAILY 15 Days #60cap 09/16/20 [Rx Confirmed 01/26/21] lorazepam 1 mg tablet (Ativan) 1 mg PO Q12H PRN 5 Days #10 tab 11/06/20 [Rx Confirmed 01/26/21] gabapentin 300 mg capsule (Neurontin) 300 mg PO TID 90 Days #270 cap 01/26/21 [Rx] tramadol 50 mg tablet 50 mg PO Q6H PRN 30 Days #60 tab 02/22/21 [Rx] Objective - Height/Weight Height/Weight: Height 6 ft 2 in Weight 91.172 kg BSA for Today's Weight 1.93 - Vital Signs Vital Signs: 02/22/21 15:34 Temperature 97.9 F Pulse Rate [Left Brachial] 91 H Respiratory Rate 20 Blood Pressure [Left Arm] 144/85 H 02 Sat by Pulse Oximetry 98 - Pain Tongue Pain Intensity: 0 - Distress Screening Distress Screen Results: RN Distress Screening Start: 04/11/20 13:45 Freq: Q30D Status: Active Protocol: Document 07/07/20 10:25 MR (Rec: 07/07/20 10:28 MR [id number]) Distress Screening Distress Score: 8 Day to Day Concerns Insurance,Money Physical Concerns Pain,Feeling tired or a lack of energy,Trouble Sleeping Emotional Concerns Depression,Loss of interest in usual activities,Nervousness, Sadness,How my body looks, Feeling hopeless,Feeling uncertain about the future Spiritual or Hindu Concerns: Relating to a higher being Distress Screening Total 8 Distress score of 4 or more discussed Yes with patient? Distress screening follow up: Zoë RN patient navigator and Cathryn patient navigator notified. pt refusing assistance at this time. Physical Exam Narrative: CONSTITUTIONAL: The patient is mildly disheveled, in no respiratory distress. He is fatigued and mildly cachectic. HEAD / FACE: Normocephalic. EYES: Pupils are equal and reactive to light. Conjunctivae and lids are benign in appearance. Ocular movement intact. EARS: Hearing grossly intact. NOSE / MOUTH / THROAT: Nose, mouth, tongue and oropharynx--No oral ulcers of thrush today. NECK / THYROID: Neck is supple. Thyroid is symmetrical, without thyromegaly, masses or palpable nodules. LYMPHATIC: No palpable cervical, supraclavicular, axillary, or inguinal adenopathy. RESPIRATORY: Normal to inspection. Lungs clear to auscultation and percussion. CARDIOVASCULAR: Regular rate and rhythm. No murmurs, gallops, or rubs. VASCULAR: Carotid, radial, femoral and pedal pulses present bilaterally. No bruits. ABDOMEN: Bowel sounds normoactive. Soft, mild epigastric tenderness and non- distended (not changed from prior exams). No hepatosplenomegaly. No masses. Well healed incisions from Whipple procedure. GENITOURINARY: No CVA tenderness. No suprapubic fullness or tenderness. No groinadenopathy. No evidence of hernias. INTEGUMENTARY: The skin is unremarkable. No rashes. No suspicious lesions. No visible bedbugs today on exam. BACK / SPINE: The back is nontender. No stepoff deformity. MUSCULOSKELETAL: Normal musculature, no joint deformities or abnormalities, normal range of motion for all four extremities. EXTREMITIES: No edema, cyanosis or clubbing. No Kyle sign. NEUROLOGICAL: Alert and oriented. Cranial nerves intact. No gross motor or sensory deficits. PSYCHIATRIC: Calmer and less depressed mood on visit today, no SI/HI. - ECOG Performance Status ECOG Score: 1 Results - Labs Labs: Diagram of Most Recent CBC and CMP 01/25/21 14:40 01/31/21 09:00 CBC, CMP, amylase, lipase ordered today (not drawn yet--will contact with results) - Impressions CT CHEST, ABDOMEN AND PELVIS WITH INTRAVENOUS CONTRAST: CLINICAL HISTORY: Restaging of pancreatic cancer. Rising CA 19 COMPARISON: 10/17/2020 TECHNIQUE: Spiral images were obtained through the chest, abdomen and pelvis following oral and intravenous administration of 85 mL of Isovue-300. Images ofthe chest were reviewed using both narrow and wide window settings. This CT exam was performed using one or more following dose reduction techniques: Automatedexposure control, adjustment of the mA and/or kV according to patient size, or use of iterative reconstruction technique. FINDINGS: A right Shvmih-v-Yexv catheter is present. The heart is not enlarged. Coronary artery calcification and/or stents are present. There is no pericardial effusion. No aortic aneurysm or dissection is seen. There is a right hilar lymph node measuring approximately 18 mm in size which was previously 15 mm. The subcarinal lymph node is also slightly larger with short axis dimension of 8 mm. Right cardiophrenic sulcus lymph nodes also appear slightly larger. Minor gynecomastia is seen. A trace amount of pleural fluid is present at the right costophrenic angle. There is mild bilateral scarring and/or atelectasis. There is no new focal consolidation. No soft tissue nodules are seen. Patient is status post Whipple procedure. No developing intrahepatic masses areidentified. There is minimal biliary prominence though no residual pneumobilia. The gallbladder is surgically absent. The spleen is unremarkable. The remaining distal pancreas is atrophic. There is slight adrenal limb thickening. Mild bilateral perinephric fibrofatty stranding is noted. The renal nephrograms are symmetric. No hydronephrosis is identified. The abdominal aorta isnormal caliber. There are some retroperitoneal hemostasis clips. There are small stable periaortic lymph nodes. No new adenopathy is present. A trace amount of fluid is seen at the paracolic gutters where there is slight thickening of the lateral conal fascia. The small bowel loops are not dilated. There is air and stool along the colon. Degenerative changes are seen at the spine, greatest at the lower facets. There is also degenerative change of both SI joints with partial ankylosis. Images through the pelvis show stool at the distal colon. No diverticular disease is identified. Small bowel loops are not significantly distended. A normal appendix is seen. The urinary bladder is unremarkable for the degree of distention. The prostate is borderline prominent. There are small inguinal lymph nodes. No free fluid is present. CT/CT chest w con IMPRESSION: MINOR BILATERAL PARENCHYMAL CHANGES AND TRACE AMOUNT OF PLEURAL FLUID ON THE RIGHT. SLIGHT INTERVAL ENLARGEMENT OF MEDIASTINAL, RIGHT HILAR AND RIGHT CARDIOPHRENIC SULCUS LYMPH NODES. POSTOPERATIVE CHANGES OF WHIPPLE PROCEDURE. SMALL STABLE RETROPERITONEAL LYMPH NODES. NO OTHER ACUTE FINDINGS. Impression dictated by: Dee Cuevas M.D.01/31/2021 12:18 PM Assessment and Plan - TNM Staging Staging: Upfront resection of pancreatic Undifferentiated carcinoma anaplastic type. 0/39LNs. pT2 N0. (1) Primary cancer of head of pancreas Upfront Whipple procedure for resectable pancreas cancer (initial biopsies suspicious but nondiagnostic for malignancy). 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 Poor risk features and good performance status (although mild baseline diabetic neuropathy). He consented to FOLFIRINOXadjuvant therapy. General surgery referral for infusion port placement. 04/25/2020: No significant toxicities at followup visit (cycle 1 day 1 was 04/12/2020). We will continue 100% dose FOLFIRINOX and follow closely for hyperglycemia and neuropathy symptoms due to his baseline diabetic neuropathy. 05/25/2020: Patient has increased fatigue, early satiety, and weight loss. Adding Boost at least twice daily and encouraging use of Imodium and Zofran regularly. Okay for cycle 4 today with stable labs. Restaging CT chest abdomenpelvis will be scheduled prior to cycle 6 in 1 month I will see him at that time. 06/20/2020: Worsening fatigue, nausea, poor appetite, and weight loss. Worsening neuropathy. Decrease oxaliplatin by 20%, replete low potassium and magnesium. No evidence of recurrence on CT CAP. Reassess Saturday whether K and Mg returned today normal and OK to resume FOLFIRINOX. F/u 1 week if dose delay, 2 weeks if tx. 07/06/2020: Admitted 07/04/2020 for work-up of sudden onset tachypnea with normal oxygen saturation. CT PE protocol was negative for pulmonary embolism or infiltrate. Lactic acid was negative for sepsis and VBG showed respiratory alkalosis with metabolic acidosis. Blood cultures did show coagulase negative staph from infusion port but negative on peripheral culture. He has severe odynophagia and mouth sore. For now I am hydrating him with 1 L normal saline, holding chemotherapy until resolution of toxicities. We will start vancomycin 1.5 g daily (would calculate to 1 g twice daily but patient does not wish to return twice daily for infusions). We will reassess Saturday to see if he should continue 2 weeks of vancomycin. Also giving IV morphine 2 mg now and redose every 15 to 20 minutes until pain less than 4/10. Adding Diflucan elixir and acyclovir elixir for his odynophagia. Consult to palliative medicine for further titration of outpatient pain medication. Follow-up in 1 week to review symptoms and to determine if he is stable to resume adjuvant FOLFIRINOX therapy with likely 50% dose reduction of 5-FU leucovorin. 07/13/2020: Negative blood cultures and CT PE protocol negative for pulmonary embolism or infiltrate. His dyspnea persists despite levofloxacin as well as acyclovir and nystatin for his prior odynophagia. His pain control is stable. I am sending him for pulmonary evaluation with full PFTs and lung volumes with DLCO as well as trial of albuterol nebulizer with electrolyte repletion today and sending with Eladio WUI. Follow-up with me in 2 weeks and we will consider resuming FOLFIRINOX at 80% dose overall of all drugs at his next follow-up if symptoms remain stable. Otherwise he may stop adjuvant therapy and continue observation only for resected pancreas cancer with anaplastic carcinoma. 07/25/2020: Resumed cycle 7 FOLFIRINOX at 80% dose of all meds--continued nausea, fatigue, and anxiety with subjective dyspnea. WBC 35,000 which may be increased response to Zarxio. No evidence of infection. PFTs consistent with asthma (will address below). Drop Zarxio with day 8 CBC and followup next cycle. Patient declines further dose reduction of FOLFIRINOX but will get Aloxi/Hydration today. 08/10/2020: Stable fatigue and nausea for cycle 7 FOLFIRINOX at 80% dose of all meds--continued nausea, fatigue, and anxiety with subjective dyspnea. WBC now 7000--dropped growth factors to see if this would relieve nausea and dyspnea. Pulmonary follow-up later this month and restaging CT scans in early September. Continue current dose for remaining cycles of FOLFIRINOX. 09/19/2020: 2-week delay for cycle 11 FOLFIRINOX with now 60% dose of oxaliplatinand irinotecan, 80% for all other medications. Stable grade 1 peripheral neuropathy. Hospitalized for suicidal ideation 09/10-11/2020. Symptoms now with improved control since increasing Remeron, adding Effexor, and changing Ativan to Klonopin. He has ongoing follow-up with psychiatry and dyspnea is improved. 10/19/2020: Completed 12 cycle FOLFIRINOX with last cycle 10/03/2020. CA 19-[address] CAP without evidence of recurrence. Followup neuropathy on current antidepressant medications and f/u with palliative medicine (should improve off chemotherapy) Next follow-up with me in 3 months after completion of FOLFIRINOX for exam and restaging tumor marker CA 19-9, sooner prn. We will review survivorship template at next visit. 01/26/2021: Altagracia is seen for routine 3-month follow-up for resected pancreas cancer (T2N0); s/p completion of 12 cycles FOLFIRINOX adjuvant chemotherapy, which concluded on 10/03/2020. Post treatment CT scans showed no evidence of recurrence in October 2020. He is here today for physical exam, ROS, and review of labs (CBC,CMP and CA 19-9). Clinically the patient looks well; he has gained > 30 pounds since his last visit 3 months ago and reports no new constitutional symptoms. Appetite has improved significantly; as well as, taste and fatigue. Hespecifically denies any issues with headaches, fever/chills, recent/recurrent infections, night sweats, weight loss, chest pain, cough, shortness of breath, nausea/vomiting, abdominal pain, diarrhea/constipation, new bony pain, skin rash, lymphadenopathy or lower extremity edema. His only complaint today is continued peripheral neuropathy (hands/feet) - Grade 1 (had peripheral neuropathy at baseline due to long standing diabetes). He is currently taking Gabapentin 400 mg daily with no improvement. --He is noted on laboratories to have slight rise in his CA 19-9 from 26 ---> 40. CBC is relatively unremarkable, with improving anemia. CMP reveals worseningof baseline creatinine and GFR (GFR= 47), normal electrolytes and calcium. He has mild elevation of AST (55) and increased Alkaline phosphate (360) with normal bilirubin. He reports that his PCP has referred him to a buffing machine operator semiautomatic andhe has an upcoming appt in March 2021. 02/22/2021: Due to rising CA 19-9 level, SUZY Barrios ordered CT chest, abdomen/pelvis. She was unable to reach him for phone followup, but when he wascontacted he reported recurrent brief episodes of unexplained epigastric pain. No progression on restaging images, but he will see gastroenterology for EGD. Tramadol 50mg po q6h prn for pain. I sent CBC, CMP, amylase, lipase and will contact him with results. I will see him at previously scheduled 04/2021 follow-up visit with labs and repeat CA 19-9 in 3 months. Moderate complexity visit. (2) Cancer-related pain Recent recurrent epigastric pain--no progression on imaging. Send for EGD with gastroenterology. Tramadol 50mg po q6h prn for recurrent pain. 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 Improved neuropathy since increased Gabapentin to 300 TID. He is not following with palliative medicine and is not utilizing any opioid pain medications. (4) Abnormal kidney function Repeat labs pending today. (5) Major depressive disorder Qualifiers: Major depression episode severity: moderate The patient was discharged home in early September after hospitalization for depression and suicidal ideation. He reports symptoms are much improved and anxiety is better since change of medications. He felt hopeless with anhedonia and passive suicidal ideation but no hallucinations. He now has no active suicidal ideation and had not had prior psychiatric hospitalizations, suicide attempts, or family history of this. No use of alcohol or illicit drugs. Following with palliative medicine and primary care Dr. Tiki Dockery who areprimary prescribers of pain medication. He now has follow-up with Dr. Bee ofpsychiatry as well. We will continue to follow closely after completion of adjuvant chemotherapy. He is no longer seeing palliative medicine. Denies SI/HI. (6) Anemia complicating neoplastic disease Hemoglobin was 7.7 on 07/05/2020 and due to his tachypnea and distress he was transfused 1 unit of packed red blood cells. Now hemoglobin has improved to 10.5 since 20% dose reduction of all chemotherapy meds. Further improvement 10.7 which has been steady in the last 2 months. Last hemoglobin 11.7; improving after ~ 3 months off chemotherapy. (7) Cancer cachexia Significant improvement in overall status, appetite and nutrition. He has gained approximately 30+ pounds since his last visit 3 months ago in October 2020. (8) Diabetes mellitus with neuropathy Qualifiers: Diabetes mellitus type: type 2 Diabetes mellitus halfway insulin use: unspecified emt intermediate insulin use status Qualified Code(s): E11.40 - Type 2 diabetes mellitus with diabetic neuropathy, unspecified Followed by Dr. Dockery--improving control since surgery and recent adjustment of insulin. (9) Asthma Qualifiers: Asthma severity: moderate Asthma persistence: persistent Negative evaluation for PE, treated for coag negative staph infection therefore he completed a course of levofloxacin. He is not hypoxic but did have some mildwheezing on exam today persistent dyspnea with exertion. He did not feel improved after albuterol MDI use at home (although only using about once daily). PFTs show reversible obstruction. Encouraged to use albuterol MDI 4 times daily and added Pulmocort MDI twice daily. Following with pulmonary. (10) Infestation by bed bug Precautions for future visits. - Chemo Plan Chemo Plan (Dose, Rate, Freq): Completed adjuvant FOLFOX therapy in late September 2020. Number of Cycles: 12 Goal of Treatment: Curative - Time with Patient Time Spent with Patient (Follow Up Visit): 35 minutes - Moderate complexity visit--symptom review, review restaging scans and tumor markers. Coordination of Care & Counseling Time: Greater than 50% of time spent with patient was for coordination of care (as documented) and [id number] counseling of patient and/or family. Dictated By: Margaret Delgado MD DD/ 01 Signed By: <Electronically signed by MD Margaret Delgado> 02/22/212037 [facility] Work Phone: [phone] 296-924511-18-2021 Progress note Author Maura Sands [facility] January 26, 2021 3:28pm Note Date/Time January 26, 2021 2:59pm [facility] at [address] [address] Hem/Onc Follow Up Note - OP Signed Patient: ManAltagracia B MR#: [id number] : 1955 Acct:[id number] Age/Sex: 65 / M Type: REG RCR Copies to: DO Nasim Allen MD~ Subjective Date/Time of Service: Date of Service: 01/26/2021 Time of Service: 14:49 Chief Complaint: Patient is here today for 3 month follow up visit and to go over labs HPI: 01/26/2021: Altagracia presents for routine 3 month followup for T2N0M0 resected pancreatic cancer to review symptoms and labs (tumor markers). Clinically the patient looks well; he has gained > 30 pounds since his last visit 3 months ago and reports no new constitutional symptoms. Appetite has improved significantly;as well as, fatigue. He specifically denies any issues with headaches, fever/chills, recent/recurrent infections, night sweats, weight loss, chest pain, cough, shortness of breath, nausea/vomiting, abdominal pain, diarrhea/constipation, new bony pain, skin rash, lymphadenopathy or lower extremity edema. His only complaint today is continued peripheral neuropathy (hands/feet) - Grade 1 (had peripheral neuropathy at baseline due to long standing diabetes). He is currently taking Gabapentin 400 mg daily with no improvement. He is noted on laboratories to have slight rise in his CA 19-9 from 26 ---> 40. CBC is relatively unremarkable, with improving anemia. CMP reveals worsening of baseline creatinine and GFR (GFR= 47), normal electrolytes and calcium. He has mild elevation of AST (55) and increased Alkaline phosphate (360) with normal bilirubin. He reports that his PCP has referred him to a buffing machine operator semiautomatic and he hasan upcoming appt in March 2021. ----- ----- 10/19/2020: One month followup to review restaging CT Chest Abdomen and Pelvis with tumor markers after completing all 12 cycles of FOLFIRINOX. Has numbness of bilateral hands all the time but this is not painful for him. No further suicidal ideation and has scheduled followup with his psychiatrist in November. No abdominal pain and regaining weight. Still has bedbug infestation--taking precautions for visits but no visualized bugs on exam today. Reviewed normal tumor marker CA 19-[address] without evidence of recurrence. Continue port flushes every 6 weeks. Next f/u for symptom review and tumor marker in 3 months, sooner if new symptoms. 09/19/2020: Altagracia is here to resume cycle 11-day 1 FOLFIRINOX tomorrow. He has had a dose delay of about 2 weeks for cycle 11 due to hospitalization on 1S 09/10-11/2020 for suicidal ideation. He reported feeling overwhelmed due to multiple psychosocial stressors including his physical illness with difficulty sleeping and depressed mood. He had increased dose of Remeron to 22.5 mg nightly, Effexor added for depression titrating up to 112.5 mg daily, and lorazepam was changed to Klonopin 1 mg 3 times daily. He was deemed safe for discharge home he notes that he feels much improved. He was diagnosed with bedbug infestation last month and we have performed room cleaning precautions. No current pruritusand there was chemotherapy related fatigue and mild peripheral neuropathy has been improved since he had his 2-week delay in therapy. He denies any current dyspnea with exertion. It feels stable to resume his 11th cycle (last 2 cycles)of FOLFIRINOX therapy tomorrow. I will send tumor markers CA 19-9 and coordinate follow-up CT chest abdomen pelvis for restaging in about 1 month prior to his next follow-up. 08/11/2020: Cycle 9 Day 3 FOLFIRINOX--still notes dyspnea on exertion, using inhalers and has pulmonary medicine appointment later this month. Persistent nausea, relieved somewhat with phenergan. Mild peripheral neuropathy lasting a few days. He noted darker stools at triage but no constipation/diarrhea, or BRBPR. Hemoglobin stable. He has stable WBC--no signs of infection. Declines dose reduction due to fear of recurrence. Next f/u with cycle 11, day 1--soonerprn. 07/25/2020: Altagracia resumed FOLFIRINOX cycle 7 one week ago at 80% dose of all meds. He notes persistent dyspnea and does not feel improved with albuterol metered dose inhalers. I offered to delay chemo or reduce dose further, but he fears recurrence and wants to proceed. He requested IV nausea meds and hydration today. I will contact Dr. Dockery and recommend increasing Ativan totwice daily with his Abilify and Cymbalta. His PFTs are consistent with asthma--reversible obstruction. I'm adding budesonide (Pulmcort) twice daily toAlbuterol MDIs. He cannot get an appointment with pulmonary medicine until 08 September. WBC 35,000--some of his anxiety may be due to growth factors. I will drop Zarxio next cycle and I will see him in 2 weeks after cycle 8. 07/13/2020: Altagracia is here for follow-up after delaying cycle 7 chemotherapy over the past week. He was due to be treated yesterday but has continued dyspnea with exertion and wishes to defer therapy another week. He was admitted overnight 1 week ago for his dyspnea and treated with antibiotics as well as acyclovir and nystatin swish and swallow for odynophagia which is slowly improving. He still reports that he has dyspnea with exertion and climbing stairs. On exam today he had some mild wheezing on the right and has not been using MDIs. I informed him that we will send for PFTs with lung volumes and DLCO as well as a trial of albuterol nebulizer in treatment room today and MDIs at home. He also has mild hypokalemia and hypomagnesemia. If he continues to improve steadily we may treat with overall 80% dose of all meds for FOLFIRINOX and I will see him in follow-up in 2 weeks. 07/06/2020: Altagracia would have been scheduled for cycle 7-day 1 on Tuesday 07/04, butthis was held when he presented with significant dyspnea on exertion and was sent to the emergency department. CT PE protocol was negative for pulmonary embolism and oxygen saturation was 98% on room air but he had significant tachypnea. He had no associated cough but reported a mouth sore on the left side of his tongue and severe odynophagia (10/10 pain). He has been using topical viscous lidocaine which is not resolved his symptoms. He was admitted and blood culture through his port showed a presumptive coagulase-negative staphthrough the port and no growth from peripheral culture through the wrist. Also had negative nasopharyngeal panel, negative coronavirus, and negative urine culture. He still has significant tachypnea with respiratory rate about 25 and heart rate 116. Saturation is 99% on room air. --We will continue to hold his chemotherapy. I am treating him with 1 L fluid normal saline, 2 mg IV morphine and will repeat every 15 to 20 minutes until pain less than 4 out of 10, and start vancomycin for 2-week course with dosing per pharmacy. This can be given as an outpatient. He does still have significant leukocytosis which could be due to prior Neulasta and received 1 unit of packed red blood cells yesterday for hospital discharge for hemoglobin 7.7. I will reassess him in 1 week to determine if he can resume chemotherapy. I am also prescribing acyclovir and Diflucan elixirs for his odynophagia. We will put in a palliative medicine consult. 06/20/2020: Altagracia is here for cycle 6-day 1 adjuvant FOLFIRINOX. He has persistent nausea without emesis (added compazine last week), poor appetite, andgeneralized weakness. He lost 4kg in the past 2 weeks. Also notes increased numbness of hands and feet. Potassium (2.7) and Magnesium (1.4) returned low today--hydrating with 1L Normal saline with 40meq KCl IV and 4g MgSO4 IV today. Send home with oral KCl 20meq bid. We will recheck K and Mg Saturday and dose reduce Oxaliplatin by 20% for next cycle. If continued nausea and fatigue--ok to delay therapy one week. Restaging CT without evidence of recurrence 06/15/2020. F/u 1 week if dose delay, 2 weeks if treated Saturday. 05/25/2020: Altagracia is here for cycle 4-day 1 adjuvant FOLFIRINOX. He notes that he has intermittent nausea but is well controlled on his current medications. He notes early satiety and was recently given additional boost to use once daily. He has lost about 4 kg over the last month. 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 Fatigue is stable and hedenies abdominal or back pain. Renal function has proved since starting therapy. He has moderate anemia but does not require transfusion. At this point will continue full dose FOLFIRINOX and restage with CT chest abdomen pelvis prior to cycle 6 as well as CA 19-9. Next follow-up in 1 month with labs. 04/25/2020: Altagracia commenced adjuvant FOLFIRINOX C1D1 on 04/12/2020--tolerated well. Denies fatigue, nausea, constipation/diarrhea, abdominal pain or cold-induced neuropathy. F/u labs unremarkable. He wishes to move infusion to if possible for cycle 2 due to an important business meeting tomorrow (will have to set up [facility] inpatient duckworth eval to d/c 5FU pump Saturday). Otherwise no concerns--f/u with me in one month for tumor markers and exam--continue 100% dose. PREVIOUS HISTORY: This is a 64-year-old male who originally presented to [facility] with nausea, vomiting, diarrhea in October 2019 and was found to have elevated liver enzymes with total bilirubin 12.7, alkaline phosphatase 408, ALT 247, AST 197, lipase 161, white blood cell count of thousand 100, hemoglobin 12.9, platelets 139,000. INR 1.2 and hemoglobin A1c 9.1. MRCP showed extensiveextra and intrahepatic biliary dilatation up to 1.5 cm with a dilated pancreaticduct at 5 mm without discrete mass. ERCP 11/10/[address] Weaver revealed 2 mm stricture in the common bile duct, status post sphincterotomy, brushings, and placement of plastic stent. He was referred for EUS/ERCP on 12/07/[address] Margaret Malcolm with fine-needle biopsy showing atypical cells present, suspicious for carcinoma. At that time the biliary stent was partially occluded and there was a single severe biliary stricture in the lower third of the main bile duct (malignant appearing) status post dilation and brushing also showing atypical ductal cells with another placement of plastic pancreatic stent. His care was further delayed about 1 month when he was unable to be reached by phone to discuss further plan of care. He was seen by gastroenterology at [facility] in late December complaining of increased epigastric pain. He also was noted to have about 20 pounds of weight loss and worsening diabetes. January 10 he had repeat endoscopic ultrasound with a masslike region in the pancreatic head and again brushings showed atypical cells with fine-needle aspiration again with atypical cells suspicious for cancer. CT abdomen pelvis at [facility] 01/22/2020 revealed no distant metastatic disease. IMPRESSION: 1. Pancreatic head mass measuring 2.6 x 2.2 x 3.0 cm, with 180 degree abutment and contour abnormality of the patent SMV, with increasing pancreatic ductal dilatation, highly concerning for pancreatic adenocarcinoma. The superior mesenteric artery and celiac artery are not involved. Malignant involvement of a 9 mm peripancreatic lymph node is not excluded. 2. Status post common bile duct stent placement. Air within the stent, left greater than right pneumobilia, and air within the gallbladder all suggest stent patency. 3. Enlarged prostate. Please correlate with PSA. Due to nondiagnostic biopsies and resectable disease, he consented to upfront Whipple procedure (pancreatoduodenectomy) performed 02/15/2020. He tolerated surgery well and has returned to eating a normal diet. Diabetes is well controlled on his current regimen with insulin managed by Dr. Tiki Dockery at [facility]. 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 She does have some peripheral neuropathy from diabetes but this does not limit his activity. Given high risk features of perineural and lymphovascular invasion as well as anaplastic poorly differentiated histology, we discussed FOLFIRINOX adjuvant therapy which may commence after placement of infusion port in the next 1 to 2 weeks. Today we reviewed chemotherapy counseling for FOLFIRINOX (5-fluorouracil, leucovorin, irinotecan, oxaliplatin every 2 weeks for 12 cycles). Goal of therapy is curative. Common toxicities were reviewed to include myelosuppression, fatigue, nausea, vomiting, constipation, diarrhea, mouth sores, and alopecia. Other toxicities may include pneumonitis, cold-induced neuropathy, cumulative neuropathy, secondary malignancies, hepatic and renal toxicities. The patient signed informed consent and will follow-up as directed. Of note he does have a history of chronic hepatitis C status post treatment withEpclusa with complete response. He reports that his mother had pancreatic cancer and in her 60s as well as a father with pancreatic cancer who at age 82. Brother had lung cancer but no other family history of malignancies. He is an active smoker 1/2 pack/day since age 14 and continues actively smoking. He denies alcohol use quitting about 7 years ago when he was diagnosedwith hepatitis C. 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 DIAGNOSIS: 1. 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 2. Diabetes mellitus, insulin requiring with mild peripheral neuropathy 3. History of hepatitis C status post curative Epclusa therapy around 2013. 4. Family history of mother and father with pancreatic cancer 5. History of anxiety disorder and depression 6. Ongoing tobacco use 7. Unintentional weight loss - Summary of Therapies Summary of Therapies: 1. Whipple's procedure/pancreaticoduodenectomy 02/15/2020. 2. FOLFIRINOX therapy commenced 04/12/2020. FOLFIRINOX: Day 1: Oxaliplatin 85mg/m2 IV over 2 hours; Irinotecan 180mg/m2 IVover 90 minutes; Leucovorin 400mg/m2 IV over 90 minutes; followed by Day 1: Fluorouracil 400mg/m2 IV push; followed by Days 1-2 Fluorouracil 2,400 mg/m2 IV continuous infusion over 46 hours. Repeat cycle every 2 weeks x 12 cycles. --cycle 6 06/22/2020--Will dose reduce oxaliplatin 20% for grade 3 nausea/grade 2neuropathy/renal insufficiency --Cycle 7 07/04/2020--on hold for intractable dyspnea and oral mucositis, 07/13/2020 continuing to hold cycle 7 for another week per patient request for ongoing dyspnea. --Resumed cycle 7 07/20/2020: 80% dose for all meds. He had another 20% dose reduction of oxaliplatin and irinotecan for cycle 10. He had 2-week delay of cycle 11 for psychiatric hospitalization. --Resuming cycle 11 09/20/2020: 60% dose oxaliplatin and irinotecan, 80% dose of 5-fluorouracil/leucovorin. -- Last cycle (12) 10/03/2020. ROS Details: All systems reviewed & no additional complaints except as documented Subjective/ROS - Narrative: CONSTITUTIONAL: Positive for mild fatigue--PS 1, negative for fever or night sweats. Recurrent anxiety and psychological distress--improved since hospital stay in early September as per HPI, resumed normal diet. HEAD AND NECK: Negative for changes in hearing and vision. No oral ulcers. No change in voice, nasal congestion and nasal drainage. Improved taste. ResolvedOdynophagia. PULMONARY: Negative for chest pain, cough and positive for marked dyspnea--no wheezing today. No pneumonia or PE on chest CT CARDIOVASCULAR: Negative for claudication and irregular heartbeat/palpitations. GASTROINTESTINAL: Negative for abdominal pain (well healed postop Whipple procedure). Positive for early satiety with decreased appetite but stable weight over the last 2 months. Stable nausea without vomiting or constipation. Positive for intermittent diarrhea, not consistently using Imodium. GENITOURINARY: Negative for dysuria and hematuria. ENDOCRINE: Negative for cold intolerance and heat intolerance. Diabetes mellitus about 10 years, worsening control prior to pancreas cancer diagnosis. Now insulin dependent. CENTRAL NERVOUS SYSTEM: Negative for gait disturbance and headache. + peripheral neuropathy hands and feet--stable, chronic. PSYCHIATRIC: Improvement of prior anxiety/depression--resolution of prior suicidal ideation since hospital stay for early September. DERMATOLOGICAL: Negative for pruritus and rash. Negative for suspicious skin lesions. + bedbugs--isolation precautions. No visible infestation today. MUSCULOSKELETAL: Negative for back pain and bone/joint symptoms. HEMATOLOGICAL: Negative for bleeding and easy bruising. Positive for 1 unit redblood cell transfusion early July. Negative for history of thromboembolic disease ALLERGY: Negative for environmental allergies and food allergies. [facility] - Medical History Medical History: Medical History (Last Reviewed 01/26/21 @ 15:05 by Maura Sands APRN) Amputated toe of right foot Anxiety Blockage of a bile duct liver stents placed d/t blockage Depression Diabetes mellitus Family history of pancreatic cancer History of hepatitis C Hyperlipemia Hypertension Neuropathy Odynophagia Pancreatic cancer - Surgical History Surgical History: Surgical History (Last Reviewed 01/26/21 @ 15:05 by Maura Sands APRN) History of cholecystectomy done at time of whipple History of gastrointestinal surgery whipple procedure 02/2020 - Family History Family History: Family History (Last Reviewed 01/26/21 @ 15:05 by Maura Sands APRN) Father Pancreatic cancer Mother Pancreatic cancer - Social History Smoking Status: Current every day smoker Tobacco Type: cigarettes Substance Use Type: None Substance Abuse Comment: states I smoke marijuana every now and then Home Medications & Allergies Allergies No Known Allergies Allergy (Verified 01/26/21 14:14) Home Medications metformin 1,000 mg tablet 1,000 mg PO BID 09/10/20 [History Confirmed 01/26/21] cholecalciferol (vitamin D3) 25 mcg (1,000 unit) tablet 50 mcg PO DAILY #30 tab 09/16/20 [Rx Confirmed 01/26/21] clonazepam 1 mg tablet 1 mg PO TID tab 09/16/20 [Rx Confirmed 01/26/21] hydrochlorothiazide 25 mg tablet 25 mg PO DAILY 15 Days #15 tab 09/16/20 [Rx Confirmed 01/26/21] linagliptin 5 mg tablet (Tradjenta) 5 mg PO DAILY.WITH.BKFAST 30 Days #30 tab 09/16/20 [Rx Confirmed 01/26/21] lorazepam 2 mg tablet 1 mg PO BID PRN #0 tab 09/16/20 [Rx Confirmed 01/26/21] mirtazapine 7.5 mg tablet 22.5 mg PO QHS 15 Days #50 tab 09/16/20 [Rx Confirmed 01/26/21] venlafaxine 37.5 mg capsule,extended release 24 hr 112.5 mg PO DAILY 15 Days #60cap 09/16/20 [Rx Confirmed 01/26/21] lorazepam 1 mg tablet (Ativan) 1 mg PO Q12H PRN 5 Days #10 tab 11/06/20 [Rx Confirmed 01/26/21] gabapentin 300 mg capsule (Neurontin) 300 mg PO TID 90 Days #270 cap 01/26/21 [Rx] Objective - Resuscitation Status Resuscitation Status: Full Code - Height/Weight Height/Weight: Height 6 ft 2 in Weight 90.718 kg BSA for Today's Weight 1.93 - Vital Signs Vital Signs: 01/26/21 14:15 Temperature 98.0 F Pulse Rate [Left Brachial] 92 H Respiratory Rate 20 Blood Pressure [Left Arm] 131/83 02 Sat by Pulse Oximetry 97 - Pain Tongue Pain Intensity: 0 - Distress Screening Distress Screen Results: RN Distress Screening Start: 04/11/20 13:45 Freq: Q30D Status: Active Protocol: Document 07/07/20 10:25 MR (Rec: 07/07/20 10:28 MR [id number]) Distress Screening Distress Score: 8 Day to Day Concerns Insurance,Money Physical Concerns Pain,Feeling tired or a lack of energy,Trouble Sleeping Emotional Concerns Depression,Loss of interest in usual activities,Nervousness, Sadness,How my body looks, Feeling hopeless,Feeling uncertain about the future Spiritual or Hindu Concerns: Relating to a higher being Distress Screening Total 8 Distress score of 4 or more discussed Yes with patient? Distress screening follow up: Zoë RN patient navigator and Cathryn patient navigator notified. pt refusing assistance at this time. Physical Exam Narrative: CONSTITUTIONAL: The patient is moderately disheveled but in better spirits, in no respiratory distress. He is fatigued and mildly cachectic. HEAD / FACE: Normocephalic. EYES: Pupils are equal and reactive to light. Conjunctivae and lids are benign in appearance. Ocular movement intact. EARS: Hearing grossly intact. NOSE / MOUTH / THROAT: Nose, mouth, tongue and oropharynx--No oral ulcers of thrush today. NECK / THYROID: Neck is supple. Thyroid is symmetrical, without thyromegaly, masses or palpable nodules. LYMPHATIC: No palpable cervical, supraclavicular, axillary, or inguinal adenopathy. RESPIRATORY: Normal to inspection. Lungs clear to auscultation and percussion. CARDIOVASCULAR: Regular rate and rhythm. No murmurs, gallops, or rubs. VASCULAR: Carotid, radial, femoral and pedal pulses present bilaterally. No bruits. ABDOMEN: Bowel sounds normoactive. Soft, mild epigastric tenderness and non-distended. No hepatosplenomegaly. No masses. Well healed incisions from Whippleprocedure. GENITOURINARY: No CVA tenderness. No suprapubic fullness or tenderness. No groinadenopathy. No evidence of hernias. INTEGUMENTARY: The skin is unremarkable. No rashes. No suspicious lesions. No visible bedbugs today on exam. BACK / SPINE: The back is nontender. No stepoff deformity. MUSCULOSKELETAL: Normal musculature, no joint deformities or abnormalities, normal range of motion for all four extremities. EXTREMITIES: No edema, cyanosis or clubbing. No Kyle sign. NEUROLOGICAL: Alert and oriented. Cranial nerves intact. No gross motor or sensory deficits. PSYCHIATRIC: Calmer and less depressed mood on visit today, no SI/HI. - ECOG Performance Status ECOG Score: 1 Results - Labs Labs: Diagram of Most Recent CBC and CMP 01/25/21 14:40 01/25/21 14:40 Labs - Last 7 Days 01/25/21 14:40: CA 19-9 Antigen 40 H 01/25/21 14:40: PHA Creatinine Clear 51.60, Sodium 136, Potassium 4.5, Chloride 102, Carbon Dioxide 24.2, BUN 27 H, Creatinine 1.52 H, Est GFR ( Amer) 56, Est GFR (Non-Af Amer) 46, Glucose 250 H, Calcium 9.4, Total Bilirubin 0.4, AST 55 H, ALT 55, Alkaline Phosphatase 360 H, Total Protein 7.0, Albumin 3.5, Globulin 3.5, Albumin/Globulin Ratio 1.0 01/25/21 14:40: Corrected WBC 7.7, Uncorrected WBC Count 7.7, RBC 3.77 L, Hgb 11.7 L, Hct 35.0 L, MCV 92.8, MCH 31.0, MCHC 33.4, RDW 13.3, Plt Count 302, MPV 8.1, Neut % (Auto) 68.0, Lymph % (Auto) 21.4, Alfalfa % (Auto) 6.7, Eos % (Auto) 3.1, Baso % (Auto) 0.8, Neut # (Auto) 5.2, Lymph # (Auto) 1.6, Alfalfa # (Auto) 0.5, Eos # (Auto) 0.2, Baso # (Auto) 0.1, Nucleated RBC % (auto) 0.0 Assessment and Plan - TNM Staging Staging: Upfront resection of pancreatic Undifferentiated carcinoma anaplastic type. 0/39LNs. pT2 N0. (1) Primary cancer of head of pancreas Upfront Whipple procedure for resectable pancreas cancer (initial biopsies suspicious but nondiagnostic for malignancy). 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 Poor risk features and good performance status (although mild baseline diabetic neuropathy). He consented to FOLFIRINOXadjuvant therapy. General surgery referral for infusion port placement. 04/25/2020: No significant toxicities at followup visit (cycle 1 day 1 was 04/12/2020). We will continue 100% dose FOLFIRINOX and follow closely for hyperglycemia and neuropathy symptoms due to his baseline diabetic neuropathy. 05/25/2020: Patient has increased fatigue, early satiety, and weight loss. Adding Boost at least twice daily and encouraging use of Imodium and Zofran regularly. Okay for cycle 4 today with stable labs. Restaging CT chest abdomenpelvis will be scheduled prior to cycle 6 in 1 month I will see him at that time. 06/20/2020: Worsening fatigue, nausea, poor appetite, and weight loss. Worsening neuropathy. Decrease oxaliplatin by 20%, replete low potassium and magnesium. No evidence of recurrence on CT CAP. Reassess Saturday whether K and Mg returned today normal and OK to resume FOLFIRINOX. F/u 1 week if dose delay, 2 weeks if tx. 07/06/2020: Admitted 07/04/2020 for work-up of sudden onset tachypnea with normal oxygen saturation. CT PE protocol was negative for pulmonary embolism or infiltrate. Lactic acid was negative for sepsis and VBG showed respiratory alkalosis with metabolic acidosis. Blood cultures did show coagulase negative staph from infusion port but negative on peripheral culture. He has severe odynophagia and mouth sore. For now I am hydrating him with 1 L normal saline, holding chemotherapy until resolution of toxicities. We will start vancomycin 1.5 g daily (would calculate to 1 g twice daily but patient does not wish to return twice daily for infusions). We will reassess Saturday to see if he should continue 2 weeks of vancomycin. Also giving IV morphine 2 mg now and redose every 15 to 20 minutes until pain less than 4/10. Adding Diflucan elixir and acyclovir elixir for his odynophagia. Consult to palliative medicine for further titration of outpatient pain medication. Follow-up in 1 week to review symptoms and to determine if he is stable to resume adjuvant FOLFIRINOX therapy with likely 50% dose reduction of 5-FU leucovorin. 07/13/2020: Negative blood cultures and CT PE protocol negative for pulmonary embolism or infiltrate. His dyspnea persists despite levofloxacin as well as acyclovir and nystatin for his prior odynophagia. His pain control is stable. I am sending him for pulmonary evaluation with full PFTs and lung volumes with DLCO as well as trial of albuterol nebulizer with electrolyte repletion today and sending with Eladio HENDERSON. Follow-up with me in 2 weeks and we will consider resuming FOLFIRINOX at 80% dose overall of all drugs at his next follow-up if symptoms remain stable. Otherwise he may stop adjuvant therapy and continue observation only for resected pancreas cancer with anaplastic carcinoma. 07/25/2020: Resumed cycle 7 FOLFIRINOX at 80% dose of all meds--continued nausea, fatigue, and anxiety with subjective dyspnea. WBC 35,000 which may be increased response to Zarxio. No evidence of infection. PFTs consistent with asthma (will address below). Drop Zarxio with day 8 CBC and followup next cycle. Patient declines further dose reduction of FOLFIRINOX but will get Aloxi/Hydration today. 08/10/2020: Stable fatigue and nausea for cycle 7 FOLFIRINOX at 80% dose of all meds--continued nausea, fatigue, and anxiety with subjective dyspnea. WBC now 7000--dropped growth factors to see if this would relieve nausea and dyspnea. Pulmonary follow-up later this month and restaging CT scans in early September. Continue current dose for remaining cycles of FOLFIRINOX. 09/19/2020: 2-week delay for cycle 11 FOLFIRINOX with now 60% dose of oxaliplatinand irinotecan, 80% for all other medications. Stable grade 1 peripheral neuropathy. Hospitalized for suicidal ideation 09/10-11/2020. Symptoms now with improved control since increasing Remeron, adding Effexor, and changing Ativan to Klonopin. He has ongoing follow-up with psychiatry and dyspnea is improved. 10/19/2020: Completed 12 cycle FOLFIRINOX with last cycle 10/03/2020. CA 19-[address] CAP without evidence of recurrence. Followup neuropathy on current antidepressant medications and f/u with palliative medicine (should improve off chemotherapy) Next follow-up with me in 3 months after completion of FOLFIRINOX for exam and restaging tumor marker CA 19-9, sooner prn. We will review survivorship template at next visit. 01/26/2021: Altagracia is seen for routine 3-month follow-up for resected pancreas cancer (T2N0); s/p completion of 12 cycles FOLFIRINOX adjuvant chemotherapy, which concluded on 10/03/2020. Post treatment CT scans showed no evidence of recurrence in October 2020. He is here today for physical exam, ROS, and review of labs (CBC,CMP and CA 19-9). Clinically the patient looks well; he has gained > 30 pounds since his last visit 3 months ago and reports no new constitutional symptoms. Appetite has improved significantly; as well as, taste and fatigue. Hespecifically denies any issues with headaches, fever/chills, recent/recurrent infections, night sweats, weight loss, chest pain, cough, shortness of breath, nausea/vomiting, abdominal pain, diarrhea/constipation, new bony pain, skin rash, lymphadenopathy or lower extremity edema. His only complaint today is continued peripheral neuropathy (hands/feet) - Grade 1 (had peripheral neuropathy at baseline due to long standing diabetes). He is currently taking Gabapentin 400 mg daily with no improvement. He is noted on laboratories to have slight rise in his CA 19-9 from 26 ---> 40. CBC is relatively unremarkable, with improving anemia. CMP reveals worsening of baseline creatinine and GFR (GFR= 47), normal electrolytes and calcium. He has mild elevation of AST (55) and increased Alkaline phosphate (360) with normal bilirubin. He reports that his PCP has referred him to a buffing machine operator semiautomatic and he hasan upcoming appt in March 2021. Spoke with Dr Delgado regarding rising CA 19-9 level; previously 26---40. Clinically he doesn't have any significant new or concerning symptoms, but giventhis increase in tumor marker we will check CT chest, abdomen/pelvis. Once scansare completed I have requested a phone follow up visit with him in ~ 2 weeks. Ifthere are new or concerning findings on imaging, we will bring him back sooner to see Dr. Delgado. If scans are stable, we will continue every 3 month follow- up visits with labs and repeat CA 19-9 in 3 months. 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 Primary complaint - he is currently taking Gabapentin 200 mg twice daily. Will cautiously increase Gabapentin to 300 TID. He is not following with palliative medicine and is not utilizing any opioid pain medications. (3) Abnormal kidney function (4) Major depressive disorder Qualifiers: Major depression episode severity: moderate The patient was discharged home in early September after hospitalization for depression and suicidal ideation. He reports symptoms are much improved and anxiety is better since change of medications. He felt hopeless with anhedonia and passive suicidal ideation but no hallucinations. He now has no active suicidal ideation and had not had prior psychiatric hospitalizations, suicide attempts, or family history of this. No use of alcohol or illicit drugs. Following with palliative medicine and primary care Dr. Tiki Dockery who areprimary prescribers of pain medication. He now has follow-up with Dr. Bee ofpsychiatry as well. We will continue to follow closely after completion of adjuvant chemotherapy. He is no longer seeing palliative medicine. Denies SI/HI. (5) Anemia complicating neoplastic disease Hemoglobin was 7.7 on 07/05/2020 and due to his tachypnea and distress he was transfused 1 unit of packed red blood cells. Now hemoglobin has improved to 10.5 since 20% dose reduction of all chemotherapy meds. Further improvement 10.7 which has been steady in the last 2 months. Last hemoglobin 11.7; improving after ~ 3 months off chemotherapy. (6) Cancer cachexia Significant improvement in overall status, appetite and nutrition. He has gained approximately 30+ pounds since his last visit 3 months ago in October 2020. (7) Diabetes mellitus with neuropathy Qualifiers: Diabetes mellitus type: type 2 Diabetes mellitus emt intermediate insulin use: unspecified halfway insulin use status Qualified Code(s): E11.40 - Type 2 diabetes mellitus with diabetic neuropathy, unspecified Followed by Dr. Dockery--improving control since surgery and recent adjustment of insulin. (8) Asthma Qualifiers: Asthma severity: moderate Asthma persistence: persistent Negative evaluation for PE, treated for coag negative staph infection therefore he completed a course of levofloxacin. He is not hypoxic but did have some mildwheezing on exam today persistent dyspnea with exertion. He did not feel improved after albuterol MDI use at home (although only using about once daily). PFTs show reversible obstruction. Encouraged to use albuterol MDI 4 times daily and added Pulmocort MDI twice daily. Following pulmonary. (9) Infestation by bed bug Precautions for future visits. - Chemo Plan Chemo Plan (Dose, Rate, Freq): Completed adjuvant FOLFOX therapy in late September 2020. Number of Cycles: 12 Goal of Treatment: Curative - Time with Patient Time Spent with Patient (Follow Up Visit): 35 minutes - Moderate complexity visit--symptom review, review restaging scans and tumor markers. Coordination of Care & Counseling Time: Greater than 50% of time spent with patient was for coordination of care (as documented) and [id number] counseling of patient and/or family. Dictated By: Maura Sands APRN DD/ [id number] Signed By: <Electronically signed by NYLA Sands> 01/26/21 1528 [facility] Work Phone: [phone]) 808-931308-11-2021 Progress note Author Margaret Delgado [facility] October 19, 2020 9:43pm Note Date/Time October 19, 2020 1: 51pm [facility] [place] [address] Hem/Onc Follow Up Note - OP Signed Patient: Altagracia Conway MR#: [id number] : 1955 Acct:[id number] Age/Sex: 65 / M Type: REG RCR Copies to: MD Tiki Cazares DO Jeffrey M Hardacre, MD Katherine M McGraw, NYLA~ Subjective Date/Time of Service: Date of Service: 10/19/2020 Time of Service: 13:45 Chief Complaint: Patient is here today for 1 month follow up visit for pancreatic cancer and to review labs and CT scans. No new concerns HPI: 10/19/2020: One month followup to review restaging CT Chest Abdomen and Pelvis with tumor markers after completing all 12 cycles of FOLFIRINOX. Has numbness of bilateral hands all the time but this is not painful for him. No further suicidal ideation and has scheduled followup with his psychiatrist in November. No abdominal pain and regaining weight. Still has bedbug infestation--taking precautions for visits but no visualized bugs on exam today. Reviewed normal tumor marker CA 19-[address] without evidence of recurrence. Continue port flushes every 6 weeks. Next f/u for symptom review and tumor marker in 3 months, sooner if new symptoms. 09/19/2020: Altagracia is here to resume cycle 11-day 1 FOLFIRINOX tomorrow. He has had a dose delay of about 2 weeks for cycle 11 due to hospitalization on 1S 09/10-11/2020 for suicidal ideation. He reported feeling overwhelmed due to multiple psychosocial stressors including his physical illness with difficulty sleeping and depressed mood. He had increased dose of Remeron to 22.5 mg nightly, Effexor added for depression titrating up to 112.5 mg daily, and lorazepam was changed to Klonopin 1 mg 3 times daily. He was deemed safe for discharge home he notes that he feels much improved. He was diagnosed with bedbug infestation last month and we have performed room cleaning precautions. No current pruritusand there was chemotherapy related fatigue and mild peripheral neuropathy has been improved since he had his 2-week delay in therapy. He denies any current dyspnea with exertion. It feels stable to resume his 11th cycle (last 2 cycles)of FOLFIRINOX therapy tomorrow. I will send tumor markers CA 19-9 and coordinate follow-up CT chest abdomen pelvis for restaging in about 1 month prior to his next follow-up. 08/11/2020: Cycle 9 Day 3 FOLFIRINOX--still notes dyspnea on exertion, using inhalers and has pulmonary medicine appointment later this month. Persistent nausea, relieved somewhat with phenergan. Mild peripheral neuropathy lasting a few days. He noted darker stools at triage but no constipation/diarrhea, or BRBPR. Hemoglobin stable. He has stable WBC--no signs of infection. Declines dose reduction due to fear of recurrence. Next f/u with cycle 11, day 1--soonerprn. 07/25/2020: Altagracia resumed FOLFIRINOX cycle 7 one week ago at 80% dose of all meds. He notes persistent dyspnea and does not feel improved with albuterol metered dose inhalers. I offered to delay chemo or reduce dose further, but he fears recurrence and wants to proceed. He requested IV nausea meds and hydration today. I will contact Dr. Dockery and recommend increasing Ativan totwice daily with his Abilify and Cymbalta. His PFTs are consistent with asthma--reversible obstruction. I'm adding budesonide (Pulmcort) twice daily toAlbuterol MDIs. He cannot get an appointment with pulmonary medicine until 08 September. WBC 35,000--some of his anxiety may be due to growth factors. I will drop Zarxio next cycle and I will see him in 2 weeks after cycle 8. 07/13/2020: Altagracia is here for follow-up after delaying cycle 7 chemotherapy over the past week. He was due to be treated yesterday but has continued dyspnea with exertion and wishes to defer therapy another week. He was admitted overnight 1 week ago for his dyspnea and treated with antibiotics as well as acyclovir and nystatin swish and swallow for odynophagia which is slowly improving. He still reports that he has dyspnea with exertion and climbing stairs. On exam today he had some mild wheezing on the right and has not been using MDIs. I informed him that we will send for PFTs with lung volumes and DLCO as well as a trial of albuterol nebulizer in treatment room today and MDIs at home. He also has mild hypokalemia and hypomagnesemia. If he continues to improve steadily we may treat with overall 80% dose of all meds for FOLFIRINOX and I will see him in follow-up in 2 weeks. 07/06/2020: Altagracia would have been scheduled for cycle 7-day 1 on Tuesday 07/04, butthis was held when he presented with significant dyspnea on exertion and was sent to the emergency department. CT PE protocol was negative for pulmonary embolism and oxygen saturation was 98% on room air but he had significant tachypnea. He had no associated cough but reported a mouth sore on the left side of his tongue and severe odynophagia (10/10 pain). He has been using topical viscous lidocaine which is not resolved his symptoms. He was admitted and blood culture through his port showed a presumptive coagulase-negative staphthrough the port and no growth from peripheral culture through the wrist. Also had negative nasopharyngeal panel, negative coronavirus, and negative urine culture. He still has significant tachypnea with respiratory rate about 25 and heart rate 116. Saturation is 99% on room air. --We will continue to hold his chemotherapy. I am treating him with 1 L fluid normal saline, 2 mg IV morphine and will repeat every 15 to 20 minutes until painless than 4 out of 10, and start vancomycin for 2-week course with dosing per pharmacy. This can be given as an outpatient. He does still have significant leukocytosis which could be due to prior Neulasta and received 1 unit of packed red blood cells yesterday for hospital discharge for hemoglobin 7.7. I will reassess him in 1 week to determine if he can resume chemotherapy. I am also prescribing acyclovir and Diflucan elixirs for his odynophagia. We will put in a palliative medicine consult. 06/20/2020: Altagracia is here for cycle 6-day 1 adjuvant FOLFIRINOX. He has persistent nausea without emesis (added compazine last week), poor appetite, andgeneralized weakness. He lost 4kg in the past 2 weeks. Also notes increased numbness of hands and feet. Potassium (2.7) and Magnesium (1.4) returned low today--hydrating with 1L Normal saline with 40meq KCl IV and 4g MgSO4 IV today. Send home with oral KCl 20meq bid. We will recheck K and Mg Saturday and dose reduce Oxaliplatin by 20% for next cycle. If continued nausea and fatigue--ok to delay therapy one week. Restaging CT without evidence of recurrence 06/15/2020. F/u 1 week if dose delay, 2 weeks if treated Saturday. 05/25/2020: Altagracia is here for cycle 4-day 1 adjuvant FOLFIRINOX. He notes that he has intermittent nausea but is well controlled on his current medications. He notes early satiety and was recently given additional boost to use once daily. He has lost about 4 kg over the last month. 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 Fatigue is stable and hedenies abdominal or back pain. Renal function has proved since starting therapy. He has moderate anemia but does not require transfusion. At this point will continue full dose FOLFIRINOX and restage with CT chest abdomen pelvis prior to cycle 6 as well as CA 19-9. Next follow-up in 1 month with labs. 04/25/2020: Altagracia commenced adjuvant FOLFIRINOX C1D1 on 04/12/2020--tolerated well. Denies fatigue, nausea, constipation/diarrhea, abdominal pain or cold-induced neuropathy. F/u labs unremarkable. He wishes to move infusion to if possible for cycle 2 due to an important business meeting tomorrow (will have to set up [facility] inpatient duckworth eval to d/c 5FU pump Saturday). Otherwise no concerns--f/u with me in one month for tumor markers and exam--continue 100% dose. PREVIOUS HISTORY: This is a 64-year-old male who originally presented to [facility] with nausea, vomiting, diarrhea in October 2019 and was found to have elevated liver enzymes with total bilirubin 12.7, alkaline phosphatase 408, ALT 247, AST 197, lipase 161, white blood cell count of thousand 100, hemoglobin 12.9, platelets 139,000. INR 1.2 and hemoglobin A1c 9.1. MRCP showed extensiveextra and intrahepatic biliary dilatation up to 1.5 cm with a dilated pancreaticduct at 5 mm without discrete mass. ERCP 11/10/[address] Weaver revealed 2 mm stricture in the common bile duct, status post sphincterotomy, brushings, and placement of plastic stent. He was referred for EUS/ERCP on 12/07/[address] Margaret Malcolm with fine-needle biopsy showing atypical cells present, suspicious for carcinoma. At that time the biliary stent was partially occluded and there was a single severe biliary stricture in the lower third of the main bile duct (malignant appearing) status post dilation and brushing also showing atypical ductal cells with another placement of plastic pancreatic stent. His care was further delayed about 1 month when he was unable to be reached by phone to discuss further plan of care. He was seen by gastroenterology at [facility] in late December complaining of increased epigastric pain. He also was noted to have about 20 pounds of weight loss and worsening diabetes. January 10 he had repeat endoscopic ultrasound with a masslike region in the pancreatic head and again brushings showed atypical cells with fine-needle aspiration again with atypical cells suspicious for cancer. CT abdomen pelvis at [facility] 01/22/2020 revealed no distant metastatic disease. IMPRESSION: 1. Pancreatic head mass measuring 2.6 x 2.2 x 3.0 cm, with 180 degree abutment and contour abnormality of the patent SMV, with increasing pancreatic ductal dilatation, highly concerning for pancreatic adenocarcinoma. The superior mesenteric artery and celiac artery are not involved. Malignant involvement of a 9 mm peripancreatic lymph node is not excluded. 2. Status post common bile duct stent placement. Air within the stent, left greater than right pneumobilia, and air within the gallbladder all suggest stent patency. 3. Enlarged prostate. Please correlate with PSA. Due to nondiagnostic biopsies and resectable disease, he consented to upfront Whipple procedure (pancreatoduodenectomy) performed 02/15/2020. He tolerated surgery well and has returned to eating a normal diet. Diabetes is well controlled on his current regimen with insulin managed by Dr. Tiki Dockery at [facility]. 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 She does have some peripheral neuropathy from diabetes but this does not limit his activity. Given high risk features of perineural and lymphovascular invasion as well as anaplastic poorly differentiated histology, we discussed FOLFIRINOX adjuvant therapy which may commence after placement of infusion port in the next 1 to 2 weeks. Today we reviewed chemotherapy counseling for FOLFIRINOX (5-fluorouracil, leucovorin, irinotecan, oxaliplatin every 2 weeks for 12 cycles). Goal of therapy is curative. Common toxicities were reviewed to include myelosuppression, fatigue, nausea, vomiting, constipation, diarrhea, mouth sores, and alopecia. Other toxicities may include pneumonitis, cold-induced neuropathy, cumulative neuropathy, secondary malignancies, hepatic and renal toxicities. The patient signed informed consent and will follow-up as directed. Of note he does have a history of chronic hepatitis C status post treatment withEpclusa with complete response. He reports that his mother had pancreatic cancer and in her 60s as well as a father with pancreatic cancer who at age 82. Brother had lung cancer but no other family history of malignancies. He is an active smoker 1/2 pack/day since age 14 and continues actively smoking. He denies alcohol use quitting about 7 years ago when he was diagnosedwith hepatitis C. 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 DIAGNOSIS: 1. 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 2. Diabetes mellitus, insulin requiring with mild peripheral neuropathy 3. History of hepatitis C status post curative Epclusa therapy around 2013. 4. Family history of mother and father with pancreatic cancer 5. History of anxiety disorder and depression 6. Ongoing tobacco use 7. Unintentional weight loss - Summary of Therapies Summary of Therapies: 1. Whipple's procedure/pancreaticoduodenectomy 02/15/2020. 2. FOLFIRINOX therapy commenced 04/12/2020. FOLFIRINOX: Day 1: Oxaliplatin 85mg/m2 IV over 2 hours; Irinotecan 180mg/m2 IVover 90 minutes; Leucovorin 400mg/m2 IV over 90 minutes; followed by Day 1: Fluorouracil 400mg/m2 IV push; followed by Days 1-2 Fluorouracil 2,400 mg/m2 IV continuous infusion over 46 hours. Repeat cycle every 2 weeks x 12 cycles. --cycle 6 06/22/2020--Will dose reduce oxaliplatin 20% for grade 3 nausea/grade 2neuropathy/renal insufficiency --Cycle 7 07/04/2020--on hold for intractable dyspnea and oral mucositis, 07/13/2020 continuing to hold cycle 7 for another week per patient request for ongoing dyspnea. --Resumed cycle 7 07/20/2020: 80% dose for all meds. He had another 20% dose reduction of oxaliplatin and irinotecan for cycle 10. He had 2-week delay of cycle 11 for psychiatric hospitalization. --Resuming cycle 11 09/20/2020: 60% dose oxaliplatin and irinotecan, 80% dose of 5-fluorouracil/leucovorin. Last cycle (12) 10/03/2020. ROS Details: All systems reviewed & no additional complaints except as documented Subjective/ROS - Narrative: CONSTITUTIONAL: Positive for mild fatigue--PS 1, negative for fever or night sweats. Recurrent anxiety and psychological distress--improved since hospital stay in early September as per HPI, resumed normal diet. HEAD AND NECK: Negative for changes in hearing and vision. No oral ulcers. No change in voice, nasal congestion and nasal drainage. + altered taste. Resolved Odynophagia. PULMONARY: Negative for chest pain, cough and positive for marked dyspnea--no wheezing today. No pneumonia or PE on chest CT CARDIOVASCULAR: Negative for claudication and irregular heartbeat/palpitations. GASTROINTESTINAL: Negative for abdominal pain (well healed postop Whipple procedure). Positive for early satiety with decreased appetite but stable weight over the last 2 months. Stable nausea without vomiting or constipation. Positive for intermittent diarrhea, not consistently using Imodium. GENITOURINARY: Negative for dysuria and hematuria. ENDOCRINE: Negative for cold intolerance and heat intolerance. Diabetes mellitus about 10 years, worsening control prior to pancreas cancer diagnosis. Now insulin dependent. CENTRAL NERVOUS SYSTEM: Negative for gait disturbance and headache. + peripheral neuropathy hands and feet--stable since dose delay and 40% dose reduction oxaliplatin. PSYCHIATRIC: Improvement of prior anxiety/depression--resolution of prior suicidal ideation since hospital stay for early September. DERMATOLOGICAL: Negative for pruritus and rash. Negative for suspicious skin lesions. + bedbugs--isolation precautions. No visible infestation today. MUSCULOSKELETAL: Negative for back pain and bone/joint symptoms. HEMATOLOGICAL: Negative for bleeding and easy bruising. Positive for 1 unit redblood cell transfusion early July. Negative for history of thromboembolic disease ALLERGY: Negative for environmental allergies and food allergies. PMFSH - History Attestation statement: The following information was validated with the patient. Source: Old Records Reviewed - Medical History Medical History: Medical History (Last Reviewed 10/19/20 @ 21:31 by Margaret Delgado MD) Amputated toe of right foot Anxiety Blockage of a bile duct liver stents placed d/t blockage Depression Diabetes mellitus Family history of pancreatic cancer History of hepatitis C Hyperlipemia Hypertension Neuropathy Odynophagia Pancreatic cancer - Surgical History Surgical History: Surgical History (Last Reviewed 10/19/20 @ 21:31 by Margaret Delgado MD) History of cholecystectomy done at time of whipple History of gastrointestinal surgery whipple procedure 02/2020 - Family History Family History: Family History (Last Reviewed 10/19/20 @ 21:31 by Margaret Delgado MD) Father Pancreatic cancer Mother Pancreatic cancer - Social History Smoking Status: Current every day smoker Tobacco Type: cigarettes Substance Use Type: None Substance Abuse Comment: states I smoke marijuana every now and then Home Medications & Allergies Allergies No Known Allergies Allergy (Verified 10/19/20 13:34) Home Medications gabapentin 100 mg capsule 100 mg PO BID 07/14/20 [History Confirmed 10/19/20] metformin 1,000 mg tablet 1,000 mg PO BID 09/10/20 [History Confirmed 10/19/20] cholecalciferol (vitamin D3) 25 mcg (1,000 unit) tablet 50 mcg PO DAILY #30 tab 09/16/20 [Rx Confirmed 10/19/20] clonazepam 1 mg tablet 1 mg PO TID tab 09/16/20 [Rx Confirmed 10/19/20] hydrochlorothiazide 25 mg tablet 25 mg PO DAILY 15 Days #15 tab 09/16/20 [Rx Confirmed 10/19/20] linagliptin 5 mg tablet (Tradjenta) 5 mg PO DAILY.WITH.BKFAST 30 Days #30 tab 09/16/20 [Rx Confirmed 10/19/20] lorazepam 2 mg tablet 1 mg PO BID PRN #0 tab 09/16/20 [Rx Confirmed 10/19/20] mirtazapine 7.5 mg tablet 22.5 mg PO QHS 15 Days #50 tab 09/16/20 [Rx Confirmed 10/19/20] venlafaxine 37.5 mg capsule,extended release 24 hr 112.5 mg PO DAILY 15 Days #60cap 09/16/20 [Rx Confirmed 10/19/20] Objective - Height/Weight Height/Weight: Height 6 ft 2 in Weight 75.296 kg BSA for Today's Weight 1.93 - Vital Signs Vital Signs: 10/19/20 13:35 Pulse Rate [Left Brachial] 67 Respiratory Rate 20 Blood Pressure [Left Arm] 131/81 02 Sat by Pulse Oximetry 98 - Pain Tongue Pain Intensity: 4 - Emotional Needs Assessment Emotional Needs Assessment: Emotional Needs Identified? No Physical Exam Narrative: CONSTITUTIONAL: The patient is moderately disheveled but in better spirits, in no respiratory distress. He is fatigued and mildly cachectic. HEAD / FACE: Normocephalic. EYES: Pupils are equal and reactive to light. Conjunctivae and lids are benign in appearance. Ocular movement intact. EARS: Hearing grossly intact. NOSE / MOUTH / THROAT: Nose, mouth, tongue and oropharynx--No oral ulcers of thrush today. NECK / THYROID: Neck is supple. Thyroid is symmetrical, without thyromegaly, masses or palpable nodules. LYMPHATIC: No palpable cervical, supraclavicular, axillary, or inguinal adenopathy. RESPIRATORY: Normal to inspection. Lungs clear to auscultation and percussion. Resolved wheezing over right lung without rales, rhonchi or rubs. Improvement of prior tachypnea without significant increased work of breathing (no intercostal retractions). CARDIOVASCULAR: Regular rate and rhythm. No murmurs, gallops, or rubs. VASCULAR: Carotid, radial, femoral and pedal pulses present bilaterally. No bruits. ABDOMEN: Bowel sounds normoactive. Soft, mild epigastric tenderness and non-distended. No hepatosplenomegaly. No masses. Well healed incisions from Whippleprocedure. GENITOURINARY: No CVA tenderness. No suprapubic fullness or tenderness. No groinadenopathy. No evidence of hernias. INTEGUMENTARY: The skin is unremarkable. No rashes. No suspicious lesions. No visible bedbugs today on exam. BACK / SPINE: The back is nontender. No stepoff deformity. MUSCULOSKELETAL: Normal musculature, no joint deformities or abnormalities, normal range of motion for all four extremities. EXTREMITIES: No edema, cyanosis or clubbing. No Kyle sign. NEUROLOGICAL: Alert and oriented. Cranial nerves intact. No gross motor or sensory deficits. PSYCHIATRIC: Calmer and less depressed mood on visit today, no SI/HI. - ECOG Performance Status ECOG Score: 1 Results - Labs Labs: Diagram of Most Recent CBC and CMP 10/17/20 09:46 10/17/20 09:46 Labs - Last 7 Days 10/17/20 09:46: PHA Creatinine Clear 64.36, Sodium 138, Potassium 4.0, Chloride 106, Carbon Dioxide 22.8, BUN 17, Creatinine 1.16, Est GFR ( Amer) > 60, Est GFR (Non-Af Amer) > 60, Glucose 218 H, Calcium 9.6, Total Bilirubin 0.5, AST39, ALT 35, Alkaline Phosphatase 141 H, Total Protein 6.6, Albumin 3.5, Globulin3.1, Albumin/Globulin Ratio 1.1 10/17/20 09:46: Corrected WBC 5.0, Uncorrected WBC Count 5.0, RBC 3.29 L, Hgb 10.7 L, Hct 32.1 L, MCV 97.7, MCH 32.6, MCHC 33.3, RDW 18.0 H, Plt Count 111 L, MPV 8.3, Neut % (Auto) 57.2, Lymph % (Auto) 29.0, Alfalfa % (Auto) 9.1, Eos % (Auto) 4.0, Baso % (Auto) 0.7, Neut # (Auto) 2.8, Lymph # (Auto) 1.4, Alfalfa # (Auto) 0.4, Eos # (Auto) 0.2, Baso # (Auto) 0.0, Nucleated RBC % (auto) 0.1 CA 19-9: 26 (stable) - Impressions CT chest, abdomen and pelviswithcontrast TECHNIQUE: Axial imaging with 2-D reconstruction. 95 cc of Isovue-300.The CT exam was performed using one or more the following dose reduction techniques: Automated exposure control, adjustment of the MA and/or Kv according to patient size, or use of the iterative reconstruction technique. History: Restaging pancreatic cancer. Cholecystectomy. Colectomy. Partial removal of the pancreas. COMPARISON: 07/04/20, 06/15/20 Thyroid gland unremarkable. RIGHT [id number]-[id number] unchanged. Central airway is patent. Esophagus normal course and caliber. Heart is not enlarged. No pericardial effusion is seen. Nonenlarged mediastinal lymph nodes identified. No hilar mass or adenopathy is seen. No thoracic aortic aneurysm is seen. Mild atherosclerosis noted. Coronarycalcification identified. No lung nodules identified. No infiltrate or congestion identified. No pleural effusion identified. No pneumothorax seen. No chest wall abnormality seen. The bony structures are intact. No hepatic mass or intrahepatic biliary ductal dilatation is identified. Normaldensity of the liver parenchyma identified. Pneumobilia noted. The gallbladder is absent. No biliary duct dilatation identified. Canal. Portal and retroperitoneal adenopathy. There is no splenomegaly or splenic lesion identified. Partial pancreatectomy changes identified. No pancreatic lesion seen. Enlargement of the LEFT adrenal gland redemonstrated. RIGHT adrenal gland unremarkable. No nephrolithiasis or obstructive uropathy is identified. The abdominal aorta is normal. No significant retroperitoneal abnormalities identified. The small bowel loops are nondistended. The appendix is normal. There is no colitis or diverticulitis. Urinary bladder is unremarkable. The prostate gland is enlarged. No free intraperitoneal air or fluid is identified. The bony structures are unremarkable. No subcutaneous soft tissue abnormality identified. CT/CT chest w con IMPRESSION: No local recurrence. No adenopathy. No distal metastatic disease. Uncomplicated postsurgical changes. Enlarged prostate. Similar pneumobilia. Similar mildly enlarged LEFT adrenal gland. No malignant or metastatic changes of the chest. 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 0/39LNs. pT2 N0. (1) Primary cancer of head of pancreas Upfront Whipple procedure for resectable pancreas cancer (initial biopsies suspicious but nondiagnostic for malignancy). 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 Poor risk features and good performance status (although mild baseline diabetic neuropathy). He consented to FOLFIRINOXadjuvant therapy. General surgery referral for infusion port placement. 04/25/2020: No significant toxicities at followup visit (cycle 1 day 1 was 04/12/2020). We will continue 100% dose FOLFIRINOX and follow closely for hyperglycemia and neuropathy symptoms due to his baseline diabetic neuropathy. 05/25/2020: Patient has increased fatigue, early satiety, and weight loss. Adding Boost at least twice daily and encouraging use of Imodium and Zofran regularly. Okay for cycle 4 today with stable labs. Restaging CT chest abdomen pelvis will be scheduled prior to cycle 6 in 1 month I will see him at that time. 06/20/2020: Worsening fatigue, nausea, poor appetite, and weight loss. Worsening neuropathy. Decrease oxaliplatin by 20%, replete low potassium and magnesium. No evidence of recurrence on CT CAP. Reassess Saturday whether K and Mg returned today normal and OK to resume FOLFIRINOX. F/u 1 week if dose delay, 2 weeks if tx. 07/06/2020: Admitted 07/04/2020 for work-up of sudden onset tachypnea with normal oxygen saturation. CT PE protocol was negative for pulmonary embolism or infiltrate. Lactic acid was negative for sepsis and VBG showed respiratory alkalosis with metabolic acidosis. Blood cultures did show coagulase negative staph from infusion port but negative on peripheral culture. He has severe odynophagia and mouth sore. For now I am hydrating him with 1 L normal saline, holding chemotherapy until resolution of toxicities. We will start vancomycin 1.5 g daily (would calculate to 1 g twice daily but patient does not wish to return twice daily for infusions). We will reassess Saturday to see if he should continue 2 weeks of vancomycin. Also giving IV morphine 2 mg now and redose every 15 to 20 minutes until pain less than 4/10. Adding Diflucan elixir and acyclovir elixir for his odynophagia. Consult to palliative medicine for further titration of outpatient pain medication. Follow-up in 1 week to review symptoms and to determine if he is stable to resume adjuvant FOLFIRINOX therapy with likely 50% dose reduction of 5-FU leucovorin. 07/13/2020: Negative blood cultures and CT PE protocol negative for pulmonary embolism or infiltrate. His dyspnea persists despite levofloxacin as well as acyclovir and nystatin for his prior odynophagia. His pain control is stable. I am sending him for pulmonary evaluation with full PFTs and lung volumes with DLCO as well as trial of albuterol nebulizer with electrolyte repletion today and sending with Eladio HENDERSON. Follow-up with me in 2 weeks and we will consider resuming FOLFIRINOX at 80% dose overall of all drugs at his next follow-up if symptoms remain stable. Otherwise he may stop adjuvant therapy and continue observation only for resected pancreas cancer with anaplastic carcinoma. 07/25/2020: Resumed cycle 7 FOLFIRINOX at 80% dose of all meds--continued nausea, fatigue, and anxiety with subjective dyspnea. WBC 35,000 which may be increased response to Zarxio. No evidence of infection. PFTs consistent with asthma (will address below). Drop Zarxio with day 8 CBC and followup next cycle. Patient declines further dose reduction of FOLFIRINOX but will get Aloxi/Hydration today. 08/10/2020: Stable fatigue and nausea for cycle 7 FOLFIRINOX at 80% dose of all meds--continued nausea, fatigue, and anxiety with subjective dyspnea. WBC now 7000--dropped growth factors to see if this would relieve nausea and dyspnea. Pulmonary follow-up later this month and restaging CT scans in early September. Continue current dose for remaining cycles of FOLFIRINOX. 09/19/2020: 2-week delay for cycle 11 FOLFIRINOX with now 60% dose of oxaliplatinand irinotecan, 80% for all other medications. Stable grade 1 peripheral neuropathy. Hospitalized for suicidal ideation 09/10-11/2020. Symptoms now with improved control since increasing Remeron, adding Effexor, and changing Ativan to Klonopin. He has ongoing follow-up with psychiatry and dyspnea is improved. 10/19/2020: Completed 12 cycle FOLFIRINOX with last cycle 10/03/2020. CA 19-[address] CAP without evidence of recurrence. Followup neuropathy on current antidepressant medications and f/u with palliative medicine (should improve off chemotherapy) Next follow-up with me in 3 months after completion of FOLFIRINOX for exam and restaging tumor marker CA 19-9, sooner prn. We will review survivorship template at next visit. All questions answered over this 35 min face to face visit for review of restaging scans and toxicity review after completing FOLFIRINOX chemotherapy. (2) Major depressive disorder Qualifiers: Major depression episode severity: moderate The patient was discharged home in early September after hospitalization for depression and suicidal ideation. He reports symptoms are much improved and anxiety is better since change of medications. He felt hopeless with anhedonia and passive suicidal ideation but no hallucinations. He now has no active suicidal ideation and had not had prior psychiatric hospitalizations, suicide attempts, or family history of this. No use of alcohol or illicit drugs. Following with palliative medicine and primary care Dr. Tiki Dockery who areprimary prescribers of pain medication. He now has follow-up with Dr. Bee ofpsychiatry as well. We will continue to follow closely after completion of adjuvant chemotherapy. (3) Asthma Qualifiers: Asthma severity: moderate Asthma persistence: persistent Negative evaluation for PE, treated for coag negative staph infection therefore he completed a course of levofloxacin. He is not hypoxic but did have some mildwheezing on exam today persistent dyspnea with exertion. He did not feel improved after albuterol MDI use at home (although only using about once daily). PFTs show reversible obstruction. Encouraged to use albuterol MDI 4 times dailyand added Pulmocort MDI twice daily. Symptoms seem improved since addition of Pulmicort and treating his depression and anxiety last week. He has a pending evaluation from pulmonary medicine as well. 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 Waiting to add medication for management due to lack of pain and concern with drug interactions with antidepressant medications. Will continue to follow with palliative medicine. (5) Diabetes mellitus with neuropathy Qualifiers: Diabetes mellitus type: type 2 Diabetes mellitus halfway insulin use: unspecified emt intermediate insulin use status Qualified Code(s): E11.40 - Type 2 diabetes mellitus with diabetic neuropathy, unspecified Followed by Dr. Dockery--improving control since surgery and recent adjustment of insulin. Followup blood sugars closely while on chemotherapy. (6) Anemia complicating neoplastic disease Hemoglobin was 7.7 on 07/05/2020 and due to his tachypnea and distress he was transfused 1 unit of packed red blood cells. Now hemoglobin has improved to 10.5 since 20% dose reduction of all chemotherapy meds. Further improvement 10.7 which has been steady in the last 2 months. This should improve after completion of FOLFIRINOX chemotherapy. (7) Cancer cachexia Patient previously lost 6kg over 2 weeks. Using Boost supplementation. Weight stable at end of chemotherapy. Will continue to follow. (8) Infestation by bed bug Precautions for future visits--will address patient assistance to eliminate infestation in his home. - Chemo Plan Chemo Plan (Dose, Rate, Freq): Completed adjuvant FOLFOX therapy in late September 2020. Number of Cycles: 12 Goal of Treatment: Curative - Time with Patient Time Spent with Patient (Follow Up Visit): 35 minutes - Moderate complexity visit--symptom review, review restaging scans and tumor markers. Coordination of Care & Counseling Time: Greater than 50% of time spent with patient was for coordination of care (as documented) and [id number] counseling of patient and/or family. Dictated By: Margaret Delgado MD DD/ [id number] Signed By: <Electronically signed by MD Margaret Delgado> 10/19/20 [id number] [facility] Work Phone: [phone]) 343-726507-12-2021 Progress note Author Margaret Delgado [facility] September 19, 2020 1:53pm Note Date/Time September 19, 2020 10:5 2am [facility] [place] [address] Hem/Onc Follow Up Note - OP Signed Patient: Altagracia Conway MR#: [id number] : 1955 Acct:[id number] Age/Sex: 65 / M Type: REG RCR Copies to: MD Tiki Cazares DO Jeffrey M Hardacre, MD Katherine M McGraw, [employer]MB[employer] 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 He has labs to reivew and no new concerns HPI: 09/19/2020: Altagracia is here to resume cycle 11-day 1 FOLFIRINOX tomorrow. He has had a dose delay of about 2 weeks for cycle 11 due to hospitalization on 1S 09/10-11/2020 for suicidal ideation. He reported feeling overwhelmed due to multiple psychosocial stressors including his physical illness with difficulty sleeping and depressed mood. He had increased dose of Remeron to 22.5 mg nightly, Effexor added for depression titrating up to 112.5 mg daily, and lorazepam was changed to Klonopin 1 mg 3 times daily. He was deemed safe for discharge home he notes that he feels much improved. He was diagnosed with bedbug infestation last month and we have performed room cleaning precautions. No current pruritusand there was chemotherapy related fatigue and mild peripheral neuropathy has been improved since he had his 2-week delay in therapy. He denies any current dyspnea with exertion. It feels stable to resume his 11th cycle (last 2 cycles)of FOLFIRINOX therapy tomorrow. I will send tumor markers CA 19-9 and coordinate follow-up CT chest abdomen pelvis for restaging in about 1 month prior to his next follow-up. 08/11/2020: Cycle 9 Day 3 FOLFIRINOX--still notes dyspnea on exertion, using inhalers and has pulmonary medicine appointment later this month. Persistent nausea, relieved somewhat with phenergan. Mild peripheral neuropathy lasting a few days. He noted darker stools at triage but no constipation/diarrhea, or BRBPR. Hemoglobin stable. He has stable WBC--no signs of infection. Declines dose reduction due to fear of recurrence. Next f/u with cycle 11, day 1--soonerprn. 07/25/2020: Altagracia resumed FOLFIRINOX cycle 7 one week ago at 80% dose of all meds. He notes persistent dyspnea and does not feel improved with albuterol metered dose inhalers. I offered to delay chemo or reduce dose further, but he fears recurrence and wants to proceed. He requested IV nausea meds and hydration today. I will contact Dr. Dockery and recommend increasing Ativan to twice daily with his Abilify and Cymbalta. His PFTs are consistent with asthma--reversible obstruction. I'm adding budesonide (Pulmcort) twice daily toAlbuterol MDIs. He cannot get an appointment with pulmonary medicine until 08 September. WBC 35,000--some of his anxiety may be due to growth factors. I will drop Zarxio next cycle and I will see him in 2 weeks after cycle 8. 07/13/2020: Altagracia is here for follow-up after delaying cycle 7 chemotherapy over the past week. He was due to be treated yesterday but has continued dyspnea with exertion and wishes to defer therapy another week. He was admitted overnight 1 week ago for his dyspnea and treated with antibiotics as well as acyclovir and nystatin swish and swallow for odynophagia which is slowly improving. He still reports that he has dyspnea with exertion and climbing stairs. On exam today he had some mild wheezing on the right and has not been using MDIs. I informed him that we will send for PFTs with lung volumes and DLCO as well as a trial of albuterol nebulizer in treatment room today and MDIs at home. He also has mild hypokalemia and hypomagnesemia. If he continues to improve steadily we may treat with overall 80% dose of all meds for FOLFIRINOX and I will see him in follow-up in 2 weeks. 07/06/2020: Altagracia would have been scheduled for cycle 7-day 1 on Tuesday 07/04, butthis was held when he presented with significant dyspnea on exertion and was sent to the emergency department. CT PE protocol was negative for pulmonary embolism and oxygen saturation was 98% on room air but he had significant tachypnea. He had no associated cough but reported a mouth sore on the left side of his tongue and severe odynophagia (10/10 pain). He has been using topical viscous lidocaine which is not resolved his symptoms. He was admitted and blood culture through his port showed a presumptive coagulase-negative staphthrough the port and no growth from peripheral culture through the wrist. Also had negative nasopharyngeal panel, negative coronavirus, and negative urine culture. He still has significant tachypnea with respiratory rate about 25 and heart rate 116. Saturation is 99% on room air. --We will continue to hold his chemotherapy. I am treating him with 1 L fluid normal saline, 2 mg IV morphine and will repeat every 15 to 20 minutes until pain less than 4 out of 10, and start vancomycin for 2-week course with dosing per pharmacy. This can be given as an outpatient. He does still have significant leukocytosis which could be due to prior Neulasta and received 1 unit of packed red blood cells yesterday for hospital discharge for hemoglobin 7.7. I will reassess him in 1 week to determine if he can resume chemotherapy. I am also prescribing acyclovir and Diflucan elixirs for his odynophagia. We will put in a palliative medicine consult. 06/20/2020: Altagracia is here for cycle 6-day 1 adjuvant FOLFIRINOX. He has persistent nausea without emesis (added compazine last week), poor appetite, and generalized weakness. He lost 4kg in the past 2 weeks. Also notes increased numbness of hands and feet. Potassium (2.7) and Magnesium (1.4) returned low today--hydrating with 1L Normal saline with 40meq KCl IV and 4g MgSO4 IV today. Send home with oral KCl 20meq bid. We will recheck K and Mg Saturday and dose reduce Oxaliplatin by 20% for next cycle. If continued nausea and fatigue--ok to delay therapy one week. Restaging CT without evidence of recurrence 06/15/2020. F/u 1 week if dose delay, 2 weeks if treated Saturday. 05/25/2020: Altagracia is here for cycle 4-day 1 adjuvant FOLFIRINOX. He notes that he has intermittent nausea but is well controlled on his current medications. He notes early satiety and was recently given additional boost to use once daily. He has lost about 4 kg over the last month. 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 Fatigue is stable and hedenies abdominal or back pain. Renal function has proved since starting therapy. He has moderate anemia but does not require transfusion. At this point will continue full dose FOLFIRINOX and restage with CT chest abdomen pelvis prior to cycle 6 as well as CA 19-9. Next follow-up in 1 month with labs. 04/25/2020: Altagracia commenced adjuvant FOLFIRINOX C1D1 on 04/12/2020--tolerated well. Denies fatigue, nausea, constipation/diarrhea, abdominal pain or cold-induced neuropathy. F/u labs unremarkable. He wishes to move infusion to if possible for cycle 2 due to an important business meeting tomorrow (will have to set up [facility] inpatient duckworth eval to d/c 5FU pump Saturday). Otherwise no concerns--f/u with me in one month for tumor markers and exam--continue 100% dose. PREVIOUS HISTORY: This is a 64-year-old male who originally presented to [facility] with nausea, vomiting, diarrhea in October 2019 and was found to have elevated liver enzymes with total bilirubin 12.7, alkaline phosphatase 408, ALT 247, AST 197, lipase 161, white blood cell count of thousand 100, hemoglobin 12.9, platelets 139,000. INR 1.2 and hemoglobin A1c 9.1. MRCP showed extensiveextra and intrahepatic biliary dilatation up to 1.5 cm with a dilated pancreaticduct at 5 mm without discrete mass. ERCP 11/10/[address] Weaver revealed 2 mm stricture in the common bile duct, status post sphincterotomy, brushings, and placement of plastic stent. He was referred for EUS/ERCP on 12/07/[address] Margaret Malcolm with fine-needle biopsy showing atypical cells present, suspicious for carcinoma. At that time the biliary stent was partially occluded and there was a single severe biliary stricture in the lower third of the main bile duct (malignant appearing) status post dilation and brushing also showing atypical ductal cells with another placement of plastic pancreatic stent. His care was further delayed about 1 month when he was unable to be reached by phone to discuss further plan of care. He was seen by gastroenterology at [facility] in late December complaining of increased epigastric pain. He also was noted to have about 20 pounds of weight loss and worsening diabetes. January 10 he had repeat endoscopic ultrasound with a masslike region in the pancreatic head and again brushings showed atypical cells with fine-needle aspiration again with atypical cells suspicious for cancer. CT abdomen pelvis at [facility] 01/22/2020 revealed no distant metastatic disease. IMPRESSION: 1. Pancreatic head mass measuring 2.6 x 2.2 x 3.0 cm, with 180 degree abutment and contour abnormality of the patent SMV, with increasing pancreatic ductal dilatation, highly concerning for pancreatic adenocarcinoma. The superior mesenteric artery and celiac artery are not involved. Malignant involvement of a 9 mm peripancreatic lymph node is not excluded. 2. Status post common bile duct stent placement. Air within the stent, left greater than right pneumobilia, and air within the gallbladder all suggest stent patency. 3. Enlarged prostate. Please correlate with PSA. Due to nondiagnostic biopsies and resectable disease, he consented to upfront Whipple procedure (pancreatoduodenectomy) performed 02/15/2020. He tolerated surgery well and has returned to eating a normal diet. Diabetes is well controlled on his current regimen with insulin managed by Dr. Tiki Dockery at [facility]. 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 She does have some peripheral neuropathy from diabetes but this does not limit his activity. Given high risk features of perineural and lymphovascular invasion as well as anaplastic poorly differentiated histology, we discussed FOLFIRINOX adjuvant therapy which may commence after placement of infusion port in the next 1 to 2 weeks. Today we reviewed chemotherapy counseling for FOLFIRINOX (5-fluorouracil, leucovorin, irinotecan, oxaliplatin every 2 weeks for 12 cycles). Goal of therapy is curative. Common toxicities were reviewed to include myelosuppression, fatigue, nausea, vomiting, constipation, diarrhea, mouth sores, and alopecia. Other toxicities may include pneumonitis, cold-induced neuropathy, cumulative neuropathy, secondary malignancies, hepatic and renal toxicities. The patient signed informed consent and will follow-up as directed. Of note he does have a history of chronic hepatitis C status post treatment withEpclusa with complete response. He reports that his mother had pancreatic cancer and in her 60s as well as a father with pancreatic cancer who at age 82. Brother had lung cancer but no other family history of malignancies. He is an active smoker 1/2 pack/day since age 14 and continues actively smoking. He denies alcohol use quitting about 7 years ago when he was diagnosedwith hepatitis C. 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 DIAGNOSIS: 1. 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 2. Diabetes mellitus, insulin requiring with mild peripheral neuropathy 3. History of hepatitis C status post curative Epclusa therapy around 2013. 4. Family history of mother and father with pancreatic cancer 5. History of anxiety disorder and depression 6. Ongoing tobacco use 7. Unintentional weight loss - Summary of Therapies Summary of Therapies: 1. Whipple's procedure/pancreaticoduodenectomy 02/15/2020. 2. FOLFIRINOX therapy commenced 04/12/2020. FOLFIRINOX: Day 1: Oxaliplatin 85mg/m2 IV over 2 hours; Irinotecan 180mg/m2 IVover 90 minutes; Leucovorin 400mg/m2 IV over 90 minutes; followed by Day 1: Fluorouracil 400mg/m2 IV push; followed by Days 1-2 Fluorouracil 2,400 mg/m2 IV continuous infusion over 46 hours. Repeat cycle every 2 weeks x 12 cycles. --cycle 6 06/22/2020--Will dose reduce oxaliplatin 20% for grade 3 nausea/grade 2neuropathy/renal insufficiency --Cycle 7 07/04/2020--on hold for intractable dyspnea and oral mucositis, 07/13/2020 continuing to hold cycle 7 for another week per patient request for ongoing dyspnea. --Resumed cycle 7 07/20/2020: 80% dose for all meds. He had another 20% dose reduction of oxaliplatin and irinotecan for cycle 10. He had 2-week delay of cycle 11 for psychiatric hospitalization. --Resuming cycle 11 09/20/2020: 60% dose oxaliplatin and irinotecan, 80% dose of 5-fluorouracil/leucovorin. ROS Details: All systems reviewed & no additional complaints except as documented Subjective/ROS - Narrative: CONSTITUTIONAL: Positive for mild fatigue--PS 1, negative for fever or night sweats. Recurrent anxiety and psychological distress--improved since hospital stay in early September as per HPI, resumed normal diet. HEAD AND NECK: Negative for changes in hearing and vision. No oral ulcers. No change in voice, nasal congestion and nasal drainage. + altered taste. Resolved Odynophagia. PULMONARY: Negative for chest pain, cough and positive for marked dyspnea--no wheezing today. No pneumonia or PE on chest CT CARDIOVASCULAR: Negative for claudication and irregular heartbeat/palpitations. GASTROINTESTINAL: Negative for abdominal pain (well healed postop Whipple procedure). Positive for early satiety with decreased appetite but stable weight over the last 2 months. Stable nausea without vomiting or constipation. Positive for intermittent diarrhea, not consistently using Imodium. GENITOURINARY: Negative for dysuria and hematuria. ENDOCRINE: Negative for cold intolerance and heat intolerance. Diabetes mellitus about 10 years, worsening control prior to pancreas cancer diagnosis. Now insulin dependent. CENTRAL NERVOUS SYSTEM: Negative for gait disturbance and headache. + peripheral neuropathy hands and feet--mildly improved since dose delay and with now 40% dose reduction oxaliplatin. PSYCHIATRIC: Positive for increased anxiety/depression--resolution of prior suicidal ideation since hospital stay for early September. DERMATOLOGICAL: Negative for pruritus and rash. Negative for suspicious skin lesions. + bedbugs--isolation precautions. No visible infestation today. MUSCULOSKELETAL: Negative for back pain and bone/joint symptoms. HEMATOLOGICAL: Negative for bleeding and easy bruising. Positive for 1 unit redblood cell transfusion early July. Negative for history of thromboembolic disease ALLERGY: Negative for environmental allergies and food allergies. PMFSH - History Attestation statement: The following information was validated with the patient. Source: Old Records Reviewed - Medical History Medical History: Medical History (Last Reviewed 09/19/20 @ 13:35 by Margaret Delgado MD) Amputated toe of right foot Anxiety Blockage of a bile duct liver stents placed d/t blockage Depression Diabetes mellitus Family history of pancreatic cancer History of hepatitis C Hyperlipemia Hypertension Neuropathy Odynophagia Pancreatic cancer - Surgical History Surgical History: Surgical History (Last Reviewed 09/19/20 @ 13:35 by Margaret Delgado MD) History of cholecystectomy done at time of whipple History of gastrointestinal surgery whipple procedure 02/2020 - Family History Family History: Family History (Last Reviewed 09/19/20 @ 13:35 by Margaret Delgado MD) Father Pancreatic cancer Mother Pancreatic cancer - Social History Smoking Status: Current every day smoker Tobacco Type: cigarettes Substance Use Type: None Substance Abuse Comment: states I smoke marijuana every now and then Home Medications & Allergies Allergies No Known Allergies Allergy (Verified 09/19/20 10:33) Home Medications gabapentin 100 mg capsule 100 mg PO BID 07/14/20 [History Confirmed 09/19/20] metformin 1,000 mg tablet 1,000 mg PO BID 09/10/20 [History Confirmed 09/19/20] cholecalciferol (vitamin D3) 25 mcg (1,000 unit) tablet 50 mcg PO DAILY #30 tab 09/16/20 [Rx Confirmed 09/19/20] clonazepam 1 mg tablet 1 mg PO TID tab 09/16/20 [Rx Confirmed 09/19/20] hydrochlorothiazide 25 mg tablet 25 mg PO DAILY 15 Days #15 tab 09/16/20 [Rx Confirmed 09/19/20] linagliptin 5 mg tablet (Tradjenta) 5 mg PO DAILY.WITH.BKFAST 30 Days #30 tab 09/16/20 [Rx Confirmed 09/19/20] lorazepam 2 mg tablet 1 mg PO BID PRN #0 tab 09/16/20 [Rx Confirmed 09/19/20] mirtazapine 7.5 mg tablet 22.5 mg PO QHS 15 Days #50 tab 09/16/20 [Rx Confirmed 09/19/20] venlafaxine 37.5 mg capsule,extended release 24 hr 112.5 mg PO DAILY 15 Days #60cap 09/16/20 [Rx Confirmed 09/19/20] Objective - Height/Weight Height/Weight: Height 6 ft 2 in Weight 76.3 kg BSA for Today's Weight 2.00 - Vital Signs Vital Signs: 09/19/20 10:33 Temperature 98.0 F Pulse Rate [Left Brachial] 84 Respiratory Rate 20 Blood Pressure [Left Arm] 142/78 H 02 Sat by Pulse Oximetry 98 - Pain Tongue Pain Intensity: 4 - Emotional Needs Assessment Emotional Needs Assessment: Emotional Needs Identified? No Physical Exam Narrative: CONSTITUTIONAL: The patient is moderately disheveled but in better spirits, in no respiratory distress. He is fatigued and mildly cachectic. HEAD / FACE: Normocephalic. EYES: Pupils are equal and reactive to light. Conjunctivae and lids are benign in appearance. Ocular movement intact. EARS: Hearing grossly intact. NOSE / MOUTH / THROAT: Nose, mouth, tongue and oropharynx--No oral ulcers of thrush today. NECK / THYROID: Neck is supple. Thyroid is symmetrical, without thyromegaly, masses or palpable nodules. LYMPHATIC: No palpable cervical, supraclavicular, axillary, or inguinal adenopathy. RESPIRATORY: Normal to inspection. Lungs clear to auscultation and percussion. Resolved wheezing over right lung without rales, rhonchi or rubs. Improvement of prior tachypnea without significant increased work of breathing (no intercostal retractions). CARDIOVASCULAR: Regular rate and rhythm. No murmurs, gallops, or rubs. VASCULAR: Carotid, radial, femoral and pedal pulses present bilaterally. No bruits. ABDOMEN: Bowel sounds normoactive. Soft, mild epigastric tenderness and non-distended. No hepatosplenomegaly. No masses. Well healed incisions from Whippleprocedure. GENITOURINARY: No CVA tenderness. No suprapubic fullness or tenderness. No groinadenopathy. No evidence of hernias. INTEGUMENTARY: The skin is unremarkable. No rashes. No suspicious lesions. No visible bedbugs today on exam. BACK / SPINE: The back is nontender. No stepoff deformity. MUSCULOSKELETAL: Normal musculature, no joint deformities or abnormalities, normal range of motion for all four extremities. EXTREMITIES: No edema, cyanosis or clubbing. No Kyle sign. NEUROLOGICAL: Alert and oriented. Cranial nerves intact. No gross motor or sensory deficits. PSYCHIATRIC: Still anxious but calmer and less depressed mood on visit today, noSI/HI. - ECOG Performance Status ECOG Score: 1 Results - Labs Labs: Diagram of Most Recent CBC and CMP 09/19/20 10:25 Labs - Last 7 Days 09/19/20 10:25: Corrected WBC 3.7 L, Uncorrected WBC Count 3.7 L, RBC 3.53 L, Hgb 11.7 L, Hct 33.9 L, MCV 96.0, MCH 33.1, MCHC 34.5, RDW 16.5 H, Plt Count 141L, MPV 8.5, Neut % (Auto) 49.3, Lymph % (Auto) 35.0, Alfalfa % (Auto) 11.0, Eos % (Auto) 3.8, Baso % (Auto) 0.9, Neut # (Auto) 1.8, Lymph # (Auto) 1.3, Alfalfa # (Auto) 0.4, Eos # (Auto) 0.1, Baso # (Auto) 0.0, Nucleated RBC % (auto) 0.0 - Impressions No new imaging for review. Restaging CT chest and pelvis will be ordered for 1 month. 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 0/39LNs. pT2 N0. (1) Primary cancer of head of pancreas Upfront Whipple procedure for resectable pancreas cancer (initial biopsies suspicious but nondiagnostic for malignancy). 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 Poor risk features and good performance status (although mild baseline diabetic neuropathy). He consented to FOLFIRINOXadjuvant therapy. General surgery referral for infusion port placement. 04/25/2020: No significant toxicities at followup visit (cycle 1 day 1 was 04/12/2020). We will continue 100% dose FOLFIRINOX and follow closely for hyperglycemia and neuropathy symptoms due to his baseline diabetic neuropathy. 05/25/2020: Patient has increased fatigue, early satiety, and weight loss. Adding Boost at least twice daily and encouraging use of Imodium and Zofran regularly. Okay for cycle 4 today with stable labs. Restaging CT chest abdomenpelvis will be scheduled prior to cycle 6 in 1 month I will see him at that time. 06/20/2020: Worsening fatigue, nausea, poor appetite, and weight loss. Worsening neuropathy. Decrease oxaliplatin by 20%, replete low potassium and magnesium. No evidence of recurrence on CT CAP. Reassess Saturday whether K and Mg returned today normal and OK to resume FOLFIRINOX. F/u 1 week if dose delay, 2 weeks if tx. 07/06/2020: Admitted 07/04/2020 for work-up of sudden onset tachypnea with normal oxygen saturation. CT PE protocol was negative for pulmonary embolism or infiltrate. Lactic acid was negative for sepsis and VBG showed respiratory alkalosis with metabolic acidosis. Blood cultures did show coagulase negative staph from infusion port but negative on peripheral culture. He has severe odynophagia and mouth sore. For now I am hydrating him with 1 L normal saline, holding chemotherapy until resolution of toxicities. We will start vancomycin 1.5 g daily (would calculate to 1 g twice daily but patient does not wish to return twice daily for infusions). We will reassess Saturday to see if he should continue 2 weeks of vancomycin. Also giving IV morphine 2 mg now and redose every 15 to 20 minutes until pain less than 4/10. Adding Diflucan elixir and acyclovir elixir for his odynophagia. Consult to palliative medicine for further titration of outpatient pain medication. Follow-up in 1 week to review symptoms and to determine if he is stable to resume adjuvant FOLFIRINOX therapy with likely 50% dose reduction of 5-FU leucovorin. 07/13/2020: Negative blood cultures and CT PE protocol negative for pulmonary embolism or infiltrate. His dyspnea persists despite levofloxacin as well as acyclovir and nystatin for his prior odynophagia. His pain control is stable. I am sending him for pulmonary evaluation with full PFTs and lung volumes with DLCO as well as trial of albuterol nebulizer with electrolyte repletion today andsending with Eladio HENDERSON. Follow-up with me in 2 weeks and we will consider resuming FOLFIRINOX at 80% dose overall of all drugs at his next follow-up if symptoms remain stable. Otherwise he may stop adjuvant therapy and continue observation only for resected pancreas cancer with anaplastic carcinoma. 07/25/2020: Resumed cycle 7 FOLFIRINOX at 80% dose of all meds--continued nausea, fatigue, and anxiety with subjective dyspnea. WBC 35,000 which may be increased response to Zarxio. No evidence of infection. PFTs consistent with asthma (will address below). Drop Zarxio with day 8 CBC and followup next cycle. Patient declines further dose reduction of FOLFIRINOX but will get Aloxi/Hydration today. 08/10/2020: Stable fatigue and nausea for cycle 7 FOLFIRINOX at 80% dose of all meds--continued nausea, fatigue, and anxiety with subjective dyspnea. WBC now 7000--dropped growth factors to see if this would relieve nausea and dyspnea. Pulmonary follow-up later this month and restaging CT scans in early September. Continue current dose for remaining cycles of FOLFIRINOX. 09/19/2020: 2-week delay for cycle 11 FOLFIRINOX with now 60% dose of oxaliplatinand irinotecan, 80% for all other medications. Stable grade 1 peripheral neuropathy. Hospitalized for suicidal ideation 09/10-11/2020. Symptoms now with improved control since increasing Remeron, adding Effexor, and changing Ativan to Klonopin. He has ongoing follow-up with psychiatry and dyspnea is improved. Next follow-up with me in 1 month after completion of FOLFIRINOX 12 cycles and restaging tumor marker CA 19-[address] chest abdomen pelvis. All questions answered over this 35 min face to face visit for review of recent hospital stay, palliation of symptoms, and toxicity review on FOLFIRINOX chemotherapy. (2) Major depressive disorder Qualifiers: Major depression episode severity: moderate The patient was discharged home 3 days ago after hospitalization for depression and suicidal ideation. He reports symptoms are much improved and anxiety is better since change of medications. He felt hopeless with anhedonia and passivesuicidal ideation but no hallucinations. He now has no active suicidal ideationand had not had prior psychiatric hospitalizations, suicide attempts, or family history of this. No use of alcohol or illicit drugs. Following with palliativemedicine and primary care Dr. Tiki Dockery who are primary prescribers of pain medication. He now has follow-up with Dr. Bee of psychiatry as well. We will continue to follow closely through end of adjuvant chemotherapy. (3) Asthma Qualifiers: Asthma severity: moderate Asthma persistence: persistent Negative evaluation for PE, treated for coag negative staph infection therefore he completed a course of levofloxacin. He is not hypoxic but did have some mildwheezing on exam today persistent dyspnea with exertion. He did not feel improved after albuterol MDI use at home (although only using about once daily). PFTs show reversible obstruction. Encouraged to use albuterol MDI 4 times daily and added Pulmocort MDI twice daily. Symptoms seem improved since addition of Pulmicort and treating his depression and anxiety last week. He has a pending evaluation from pulmonary medicine as well. (4) Peripheral neuropathy due to chemotherapy Dose reduction Oxaliplatin 40% cycle 10 FOLFIRINOX--had some stabilization of neuropathy. Will continue to follow. (5) Diabetes mellitus with neuropathy Qualifiers: Diabetes mellitus type: type 2 Diabetes mellitus emt intermediate insulin use: unspecified emt intermediate insulin use status Qualified Code(s): E11.40 - Type 2 diabetes mellitus with diabetic neuropathy, unspecified Followed by Dr. Dockery--improving control since surgery and recent adjustment of insulin. Followup blood sugars closely while on chemotherapy. (6) Anemia complicating neoplastic disease Hemoglobin was 7.7 on 07/05/2020 and due to his tachypnea and distress he was transfused 1 unit of packed red blood cells. Now hemoglobin has improved to 10.5 since 20% dose reduction of all chemotherapy meds. Further improvement nowto 11.7 which has been steady in the last 3 weeks. We will follow closely during FOLFIRINOX chemotherapy--dropped Zarxio since cycle 8. (7) Cancer cachexia Patient previously lost 6kg over 2 weeks. Using Boost supplementation. No obstruction on restaging CT late June 2020, but persistent nausea without emesis. Dose reduced oxaliplatin for cycle 6 and 7, replaced electrolytes. We delayed cycle 7 therapy for odynophagia and dyspnea on exertion, then cycle 10 he had another 20% dose reduction of oxaliplatin and irinotecan as well as 2-week delay due to hospitalization. We will follow closely with future exams. (8) Encounter for chemotherapy management Tolerated first 3 cycles well reasonably well. Since cycle 4, he has noted weight loss, early satiety, and increasing fatigue. 20% dose reduction oxaliplatin cycle 6--2-week delay of FOLFIRINOX for odynophagia/dyspnea/anxiety as noted above for cycle 7 given at 80% DR of all meds. Cycle 10 he had 20% further dose reduction of oxaliplatin and irinotecan. 2-week dose delay for hospital stay in early September. Patient declines further dose reduction for symptoms--okay to resume cycle 11 at current doses on 09/20/2020. - Chemo Plan Chemo Plan (Dose, Rate, Freq): FOLFIRINOX on hold for odynophagia cycle 7. 20% dose reduction oxaliplatin cycle 6 FOLFIRINOX. Cycle 10 40% dose reduction oxaliplatin and irinotecan, 20% dose reduction follow-up 3 months. 2-week delayfor hospital stay early September. FOLFIRINOX: Day 1: Oxaliplatin 85mg/m2 IV over 2 hours; Irinotecan 180mg/m2 IVover 90 minutes; Leucovorin 400mg/m2 IV over 90 minutes; followed by Day 1: Fluorouracil 400mg/m2 IV push; followed by Days 1-2 Fluorouracil 2,400 mg/m2 IV continuous infusion over 46 hours. Repeat cycle every 2 weeks x 12 cycles. Cycle 1, Day 1 04/12/2020 Number of Cycles: 12 Goal of Treatment: Curative - Time with Patient Time Spent with Patient (Follow Up Visit): 35 minutes - Moderate complexity visit--symptom review, review inpatient hospital stay for suicidal ideation, labreview to resume chemo. Coordination of Care & Counseling Time: Greater than 50% of time spent with patient was for coordination of care (as documented) and [id number] counseling of patient and/or family. Dictated By: Margaret Delgado MD DD/ [id number] Signed By: <Electronically signed by MD Margaret Delgado> 09/19/20 [address] [facility] Work Phone: [phone]) 708-777306-04-2021 Progress note Author Margaret Delgado [facility] August 12, 2020 6:23am Note Date/Time August 11, 2020 3:26p m [facility] [place] [id number] Hem/Onc Follow Up Note - OP Signed Patient: Altagracia Conway MR#: [id number] : 1955 Acct:[id number] Age/Sex: 64 / M Type: REG RCR Copies to: DO Nasim Allen MD~ Subjective Date/Time of Service: Date of Service: 08/11/2020 Time of Service: 15:25 Chief Complaint: Patient is here today for 2 week follow up visit for pancreaticcancer. He has labs to review. He states his stools have been black for 4 days HPI: 08/11/2020: Cycle 9 Day 3 FOLFIRINOX--still notes dyspnea on exertion, using inhalers and has pulmonary medicine appointment later this month. Persistent nausea, relieved somewhat with phenergan. Mild peripheral neuropathy lasting a few days. He noted darker stools at triage but no constipation/diarrhea, or BRBPR. Hemoglobin stable. He has stable WBC--no signs of infection. Declines dose reduction due to fear of recurrence. Next f/u with cycle 11, day 1--soonerprn. 07/25/2020: Altagracia resumed FOLFIRINOX cycle 7 one week ago at 80% dose of all meds. He notes persistent dyspnea and does not feel improved with albuterol metered dose inhalers. I offered to delay chemo or reduce dose further, but he fears recurrence and wants to proceed. He requested IV nausea meds and hydration today. I will contact Dr. Dockery and recommend increasing Ativan totwice daily with his Abilify and Cymbalta. His PFTs are consistent with asthma--reversible obstruction. I'm adding budesonide (Pulmcort) twice daily toAlbuterol MDIs. He cannot get an appointment with pulmonary medicine until 08 September. WBC 35,000--some of his anxiety may be due to growth factors. I will drop Zarxio next cycle and I will see him in 2 weeks after cycle 8. 07/13/2020: Altagracia is here for follow-up after delaying cycle 7 chemotherapy over the past week. He was due to be treated yesterday but has continued dyspnea with exertion and wishes to defer therapy another week. He was admitted overnight 1 week ago for his dyspnea and treated with antibiotics as well as acyclovir and nystatin swish and swallow for odynophagia which is slowly improving. He still reports that he has dyspnea with exertion and climbing stairs. On exam today he had some mild wheezing on the right and has not been using MDIs. I informed him that we will send for PFTs with lung volumes and DLCO as well as a trial of albuterol nebulizer in treatment room today and MDIs at home. He also has mild hypokalemia and hypomagnesemia. If he continues to improve steadily we may treat with overall 80% dose of all meds for FOLFIRINOX and I will see him in follow-up in 2 weeks. 07/06/2020: Altagracia would have been scheduled for cycle 7-day 1 on Tuesday 07/04, butthis was held when he presented with significant dyspnea on exertion and was sent to the emergency department. CT PE protocol was negative for pulmonary embolism and oxygen saturation was 98% on room air but he had significant tachypnea. He had no associated cough but reported a mouth sore on the left side of his tongue and severe odynophagia (10/10 pain). He has been using topical viscous lidocaine which is not resolved his symptoms. He was admitted and blood culture through his port showed a presumptive coagulase-negative staphthrough the port and no growth from peripheral culture through the wrist. Also had negative nasopharyngeal panel, negative coronavirus, and negative urine culture. He still has significant tachypnea with respiratory rate about 25 and heart rate 116. Saturation is 99% on room air. --We will continue to hold his chemotherapy. I am treating him with 1 L fluid normal saline, 2 mg IV morphine and will repeat every 15 to 20 minutes until pain less than 4 out of 10, and start vancomycin for 2-week course with dosing per pharmacy. This can be given as an outpatient. He does still have significant leukocytosis which could be due to prior Neulasta and received 1 unit of packed red blood cells yesterday for hospital discharge for hemoglobin 7.7. I will reassess him in 1 week to determine if he can resume chemotherapy. I amalso prescribing acyclovir and Diflucan elixirs for his odynophagia. We will put in a palliative medicine consult. 06/20/2020: Altagracia is here for cycle 6-day 1 adjuvant FOLFIRINOX. He has persistent nausea without emesis (added compazine last week), poor appetite, andgeneralized weakness. He lost 4kg in the past 2 weeks. Also notes increased numbness of hands and feet. Potassium (2.7) and Magnesium (1.4) returned low today--hydrating with 1L Normal saline with 40meq KCl IV and 4g MgSO4 IV today. Send home with oral KCl 20meq bid. We will recheck K and Mg Saturday and dose reduce Oxaliplatin by 20% for next cycle. If continued nausea and fatigue--ok to delay therapy one week. Restaging CT without evidence of recurrence 06/15/2020. F/u 1 week if dose delay, 2 weeks if treated Saturday. 05/25/2020: Altagracia is here for cycle 4-day 1 adjuvant FOLFIRINOX. He notes that he has intermittent nausea but is well controlled on his current medications. He notes early satiety and was recently given additional boost to use once daily. He has lost about 4 kg over the last month. 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 Fatigue is stable and hedenies abdominal or back pain. Renal function has proved since starting therapy. He has moderate anemia but does not require transfusion. At this point will continue full dose FOLFIRINOX and restage with CT chest abdomen pelvis prior to cycle 6 as well as CA 19-9. Next follow-up in 1 month with labs. 04/25/2020: Altagracia commenced adjuvant FOLFIRINOX C1D1 on 04/12/2020--tolerated well. Denies fatigue, nausea, constipation/diarrhea, abdominal pain or cold-induced neuropathy. F/u labs unremarkable. He wishes to move infusion to if possible for cycle 2 due to an important business meeting tomorrow (will have to set up [facility] inpatient duckworth eval to d/c 5FU pump Saturday). Otherwise no concerns--f/u with me in one month for tumor markers and exam--continue 100% dose. PREVIOUS HISTORY: This is a 64-year-old male who originally presented to [facility] with nausea, vomiting, diarrhea in October 2019 and was found to have elevated liver enzymes with total bilirubin 12.7, alkaline phosphatase 408, ALT 247, AST 197, lipase 161, white blood cell count of thousand 100, hemoglobin 12.9, platelets 139,000. INR 1.2 and hemoglobin A1c 9.1. MRCP showed extensiveextra and intrahepatic biliary dilatation up to 1.5 cm with a dilated pancreaticduct at 5 mm without discrete mass. ERCP 11/10/[address] Weaver revealed 2 mm stricture in the common bile duct, status post sphincterotomy, brushings, and placement of plastic stent. He was referred for EUS/ERCP on 12/07/[address] Margaret Malcolm with fine-needle biopsy showing atypical cells present, suspicious for carcinoma. At that time the biliary stent was partially occluded and there was a single severe biliary stricture in the lower third of the main bile duct (malignant appearing) status post dilation and brushing also showing atypical ductal cells with another placement of plastic pancreatic stent. His care was further delayed about 1 month when he was unable to be reached by phone to discuss further plan of care. He was seen by gastroenterology at [facility] in late December complaining of increased epigastric pain. He also was noted to have about 20 pounds of weight loss and worsening diabetes. January 10 he had repeat endoscopic ultrasound with a masslike region in the pancreatic head and again brushings showed atypical cells with fine-needle aspiration again with atypical cells suspicious for cancer. CT abdomen pelvis at [facility] 01/22/2020 revealed no distant metastatic disease. IMPRESSION: 1. Pancreatic head mass measuring 2.6 x 2.2 x 3.0 cm, with 180 degree abutment and contour abnormality of the patent SMV, with increasing pancreatic ductal dilatation, highly concerning for pancreatic adenocarcinoma. The superior mesenteric artery and celiac artery are not involved. Malignant involvement of a 9 mm peripancreatic lymph node is not excluded. 2. Status post common bile duct stent placement. Air within the stent, left greater than right pneumobilia, and air within the gallbladder all suggest stent patency. 3. Enlarged prostate. Please correlate with PSA. Due to nondiagnostic biopsies and resectable disease, he consented to upfront Whipple procedure (pancreatoduodenectomy) performed 02/15/2020. He tolerated surgery well and has returned to eating a normal diet. Diabetes is well controlled on his current regimen with insulin managed by Dr. Tiki Dockery at [facility]. 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 She does have some peripheral neuropathy from diabetes but this does not limit his activity. Given high risk features of perineural and lymphovascular invasion as well as anaplastic poorly differentiated histology, we discussed FOLFIRINOX adjuvant therapy which may commence after placement of infusion port in the next 1 to 2 weeks. Today we reviewed chemotherapy counseling for FOLFIRINOX (5-fluorouracil, leucovorin, irinotecan, oxaliplatin every 2 weeks for 12 cycles). Goal of therapy is curative. Common toxicities were reviewed to include myelosuppression, fatigue, nausea, vomiting, constipation, diarrhea, mouth sores, and alopecia. Other toxicities may include pneumonitis, cold-induced neuropathy, cumulative neuropathy, secondary malignancies, hepatic and renal toxicities. The patient signed informed consent and will follow-up as directed. Of note he does have a history of chronic hepatitis C status post treatment withEpclusa with complete response. He reports that his mother had pancreatic cancer and in her 60s as well as a father with pancreatic cancer who at age 82. Brother had lung cancer but no other family history of malignancies. He is an active smoker 1/2 pack/day since age 14 and continues actively smoking. He denies alcohol use quitting about 7 years ago when he was diagnosedwith hepatitis C. 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 DIAGNOSIS: 1. 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 2. Diabetes mellitus, insulin requiring with mild peripheral neuropathy 3. History of hepatitis C status post curative Epclusa therapy around 2013. 4. Family history of mother and father with pancreatic cancer 5. History of anxiety disorder and depression 6. Ongoing tobacco use 7. Unintentional weight loss - Summary of Therapies Summary of Therapies: 1. Whipple's procedure/pancreaticoduodenectomy 02/15/2020. 2. FOLFIRINOX therapy commenced 04/12/2020. FOLFIRINOX: Day 1: Oxaliplatin 85mg/m2 IV over 2 hours; Irinotecan 180mg/m2 IVover 90 minutes; Leucovorin 400mg/m2 IV over 90 minutes; followed by Day 1: Fluorouracil 400mg/m2 IV push; followed by Days 1-2 Fluorouracil 2,400 mg/m2 IV continuous infusion over 46 hours. Repeat cycle every 2 weeks x 12 cycles. --cycle 6 06/22/2020--Will dose reduce oxaliplatin 20% for grade 3 nausea/grade 2neuropathy/renal insufficiency --Cycle 7 07/04/2020--on hold for intractable dyspnea and oral mucositis, 07/13/2020 continuing to hold cycle 7 for another week per patient request for ongoing dyspnea. --Resumed cycle 7 07/20/2020: 80% dose for all meds. ROS Details: All systems reviewed & no additional complaints except as documented Subjective/ROS - Narrative: CONSTITUTIONAL: Positive for moderate fatigue (decreased ADL--PS 2), negative for fever or night sweats. Recurrent anxiety and psychological distress, resumed normal diet. HEAD AND NECK: Negative for changes in hearing and vision. No oral ulcers. No change in voice, nasal congestion and nasal drainage. + altered taste. Resolved Odynophagia. PULMONARY: Negative for chest pain, cough and positive for marked dyspnea--no wheezing today. No pneumonia or PE on chest CT CARDIOVASCULAR: Negative for claudication and irregular heartbeat/palpitations. GASTROINTESTINAL: Negative for abdominal pain (well healed postop Whipple procedure). Positive for early satiety with decreased appetite but stable weight over the last 2 weeks. Stable nausea without vomiting or constipation. Positive for intermittent diarrhea, not consistently using Imodium. GENITOURINARY: Negative for dysuria and hematuria. ENDOCRINE: Negative for cold intolerance and heat intolerance. Diabetes mellitus about 10 years, worsening control prior to pancreas cancer diagnosis. Now insulin dependent. CENTRAL NERVOUS SYSTEM: Negative for gait disturbance and headache. + peripheral neuropathy hands and feet--stable with 20% dose reduction oxaliplatin. PSYCHIATRIC: Positive for increased anxiety regarding symptoms without depression. DERMATOLOGICAL: Negative for pruritus and rash. Negative for suspicious skin lesions. MUSCULOSKELETAL: Negative for back pain and bone/joint symptoms. HEMATOLOGICAL: Negative for bleeding and easy bruising. Positive for 1 unit redblood cell transfusion early July. Negative for history of thromboembolic disease ALLERGY: Negative for environmental allergies and food allergies. PMFSH - History Attestation statement: The following information was validated with the patient. Source: Old Records Reviewed - Medical History Medical History: Medical History (Last Reviewed 08/12/20 @ 06:14 by Margaret Delgado MD) Amputated toe of right foot Anxiety Blockage of a bile duct liver stents placed d/t blockage Depression Diabetes mellitus History of hepatitis C Hyperlipemia Hypertension Neuropathy Pancreatic cancer - Surgical History Surgical History: Surgical History (Last Reviewed 08/12/20 @ 06:14 by Margaret Delgado MD) History of cholecystectomy done at time of whipple History of gastrointestinal surgery whipple procedure 02/2020 - Family History Family History: Family History (Last Reviewed 08/12/20 @ 06:14 by Margaret Delgado MD) Father Pancreatic cancer Mother Pancreatic cancer - Social History Smoking Status: Current every day smoker Tobacco Type: cigarettes Substance Use Type: None Substance Abuse Comment: states I smoke marijuana every now and then enc not to am of surgery Home Medications & Allergies Allergies No Known Allergies Allergy (Verified 08/11/20 15:15) Home Medications prochlorperazine maleate 10 mg PO Q6HR 07/05/20 [History Confirmed 08/11/20] acyclovir 400 mg PO BID 14 Days #300 ml 07/06/20 [Rx Confirmed 08/11/20] albuterol sulfate [ProAir HFA] 2 puff INHALATION Q4-6H PRN 30 Days #1 g 07/13/20[Rx Confirmed 08/11/20] gabapentin 100 mg PO BID 07/14/20 [History Confirmed 08/11/20] budesonide [Pulmicort Flexhaler] 1 inh INHALATION BID 30 Days #60 ea 07/25/20 [Rx Confirmed 08/11/20] lorazepam 2 mg PO BID PRN 07/29/20 [History Confirmed 08/11/20] Objective - Height/Weight Height/Weight: Height 6 ft 2 in Weight 77.111 kg BSA for Today's Weight 2.03 - Vital Signs Vital Signs: 08/11/20 14:00 08/11/20 15:15 Temperature 98 F 98.0 F Pulse Rate [Left Brachial] 79 81 Respiratory Rate 20 20 Blood Pressure [Left Arm] 156/72 H 02 Sat by Pulse Oximetry 98 99 - Pain Tongue Pain Intensity: 4 - Emotional Needs Assessment Emotional Needs Assessment: Emotional Needs Identified? Yes Distress Screening Total 3 Physical Exam Narrative: CONSTITUTIONAL: The patient is in no respiratory distress. He is moderately fatigued and mildly cachectic. HEAD / FACE: Normocephalic. EYES: Pupils are equal and reactive to light. Conjunctivae and lids are benign in appearance. Ocular movement intact. EARS: Hearing grossly intact. NOSE / MOUTH / THROAT: Nose, mouth, tongue and oropharynx--No oral ulcers of thrush today. NECK / THYROID: Neck is supple. Thyroid is symmetrical, without thyromegaly, masses or palpable nodules. LYMPHATIC: No palpable cervical, supraclavicular, axillary, or inguinal adenopathy. RESPIRATORY: Normal to inspection. Lungs clear to auscultation and percussion. Improvement of prio wheezing over right lung without rales, rhonchi or rubs. Improvement of prior tachypnea without significant increased work of breathing (no intercostal retractions). CARDIOVASCULAR: Regular rate and rhythm. No murmurs, gallops, or rubs. VASCULAR: Carotid, radial, femoral and pedal pulses present bilaterally. No bruits. ABDOMEN: Bowel sounds normoactive. Soft, mild epigastric tenderness and non-distended. No hepatosplenomegaly. No masses. Well healed incisions from Whipple procedure. GENITOURINARY: No CVA tenderness. No suprapubic fullness or tenderness. No groinadenopathy. No evidence of hernias. INTEGUMENTARY: The skin is unremarkable. No rashes. No suspicious lesions BACK / SPINE: The back is nontender. No stepoff deformity. MUSCULOSKELETAL: Normal musculature, no joint deformities or abnormalities, normal range of motion for all four extremities. EXTREMITIES: No edema, cyanosis or clubbing. No Kyle sign. NEUROLOGICAL: Alert and oriented. Cranial nerves intact. No gross motor or sensory deficits. PSYCHIATRIC: Still anxious but less tearful during the visit today, no SI/HI. - ECOG Performance Status ECOG Score: 2 Results - Labs Labs: Diagram of Most Recent CBC and CMP 08/09/20 15:30 08/01/20 13:45 Labs - Last 7 Days 08/09/20 15:30: Corrected WBC 7.1, Uncorrected WBC Count 7.1, RBC 3.21 L, Hgb 10.6 L, Hct 30.9 L, MCV 96.5, MCH 33.2, MCHC 34.4, RDW 15.8 H, Plt Count 177, MPV 8.1, Neut % (Auto) 67.7, Lymph % (Auto) 26.9, Alfalfa % (Auto) 2.8, Eos % (Auto) 2.0, Baso % (Auto) 0.6, Neut # (Auto) 4.8, Lymph # (Auto) 1.9, Alfalfa # (Auto) 0.2, Eos # (Auto) 0.1, Baso # (Auto) 0.0, Nucleated RBC % (auto) 0.1 - Impressions No new imaging for review--will order restaging CT CAP in about one month/early September Assessment and Plan - TNM Staging Staging: Upfront resection of pancreatic Undifferentiated carcinoma anaplastic type. 0/39LNs. pT2 N0. (1) Primary cancer of head of pancreas Upfront Whipple procedure for resectable pancreas cancer (initial biopsies suspicious but nondiagnostic for malignancy). 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 Poor risk features and good performance status (although mild baseline diabetic neuropathy). He consented to FOLFIRINOXadjuvant therapy. General surgery referral for infusion port placement. 04/25/2020: No significant toxicities at followup visit (cycle 1 day 1 was 04/12/2020). We will continue 100% dose FOLFIRINOX and follow closely for hyperglycemia and neuropathy symptoms due to his baseline diabetic neuropathy. 05/25/2020: Patient has increased fatigue, early satiety, and weight loss. Adding Boost at least twice daily and encouraging use of Imodium and Zofran regularly. Okay for cycle 4 today with stable labs. Restaging CT chest abdomenpelvis will be scheduled prior to cycle 6 in 1 month I will see him at that time. 06/20/2020: Worsening fatigue, nausea, poor appetite, and weight loss. Worsening neuropathy. Decrease oxaliplatin by 20%, replete low potassium and magnesium. No evidence of recurrence on CT CAP. Reassess Saturday whether K and Mg returned today normal and OK to resume FOLFIRINOX. F/u 1 week if dose delay, 2 weeks if tx. 07/06/2020: Admitted 07/04/2020 for work-up of sudden onset tachypnea with normal oxygen saturation. CT PE protocol was negative for pulmonary embolism or infiltrate. Lactic acid was negative for sepsis and VBG showed respiratory alkalosis with metabolic acidosis. Blood cultures did show coagulase negative staph from infusion port but negative on peripheral culture. He has severe odynophagia and mouth sore. For now I am hydrating him with 1 L normal saline, holding chemotherapy until resolution of toxicities. We will start vancomycin 1.5 g daily (would calculate to 1 g twice daily but patient does not wish to return twice daily for infusions). We will reassess Saturday to see if he should continue 2 weeks of vancomycin. Also giving IV morphine 2 mg now and redose every 15 to 20 minutes until pain less than 4/10. Adding Diflucan elixir and acyclovir elixir for his odynophagia. Consult to palliative medicine for further titration of outpatient pain medication. Follow-up in 1 week to review symptoms and to determine if he is stable to resume adjuvant FOLFIRINOX therapy with likely 50% dose reduction of 5-FU leucovorin. 07/13/2020: Negative blood cultures and CT PE protocol negative for pulmonary embolism or infiltrate. His dyspnea persists despite levofloxacin as well as acyclovir and nystatin for his prior odynophagia. His pain control is stable. I am sending him for pulmonary evaluation with full PFTs and lung volumes with DLCO as well as trial of albuterol nebulizer with electrolyte repletion today and sending with Eladio WUI. Follow-up with me in 2 weeks and we will consider resuming FOLFIRINOX at 80% dose overall of all drugs at his next follow-up if symptoms remain stable. Otherwise he may stop adjuvant therapy and continue observation only for resected pancreas cancer with anaplastic carcinoma. 07/25/2020: Resumed cycle 7 FOLFIRINOX at 80% dose of all meds--continued nausea, fatigue, and anxiety with subjective dyspnea. WBC 35,000 which may be increased response to Zarxio. No evidence of infection. PFTs consistent with asthma (will address below). Drop Zarxio with day 8 CBC and followup next cycle. Patient declines further dose reduction of FOLFIRINOX but will get Aloxi/Hydration today. 08/10/2020: Stable fatigue and nausea for cycle 7 FOLFIRINOX at 80% dose of all meds--continued nausea, fatigue, and anxiety with subjective dyspnea. WBC now 7000--dropped growth factors to see if this would relieve nausea and dyspnea. F/u pulmonary later this month and restaging CT scans in early September. Continue current dose for remaining cycles of FOLFIRINOX. All questions answered over this 35 min face to face visit for review of PFT/lung volumes/DLCO, palliation of symptoms, and toxicity review on FOLFIRINOXchemotherapy. (2) Asthma Qualifiers: Asthma severity: moderate Asthma persistence: persistent Negative evaluation for PE, treated for coag negative staph infection therefore he completed a course of levofloxacin. He is not hypoxic but did have some mildwheezing on exam today persistent dyspnea with exertion. He did not feel improved after albuterol MDI use at home (although only using about once daily). PFTs show reversible obstruction. Encouraged to use albuterol MDI 4 times daily and adding Pulmocort MDI twice daily. He will not be able to have full work-up with pulmonary medicine until later August due to appointment availability. (3) Peripheral neuropathy due to chemotherapy Dose reduction Oxaliplatin 20% cycle 6 FOLFIRINOX--had some stabilization of neuropathy. Will continue to follow. (4) Diabetes mellitus with neuropathy Qualifiers: Diabetes mellitus type: type 2 Diabetes mellitus emt intermediate insulin use: unspecified emt intermediate insulin use status Qualified Code(s): E11.40 - Type 2 diabetes mellitus with diabetic neuropathy, unspecified Followed by Dr. Dockery--improving control since surgery and recent adjustment of insulin. Followup blood sugars closely while on chemotherapy. (5) Anemia complicating neoplastic disease Hemoglobin was 7.7 on 07/05/2020 and due to his tachypnea and distress he was transfused 1 unit of packed red blood cells. Now hemoglobin has improved to 10.5 since 20% dose reduction of all chemotherapy meds. We will follow closely during FOLFIRINOX chemotherapy--dropped Zarxio since cycle 8. (6) Cancer cachexia Patient lost another 6kg over 2 weeks. Using Boost supplementation. No obstruction on restaging CT late June, but persistent nausea without emesis. Dose reduced oxaliplatin for cycle 6 and 7, replace electrolytes. We delayed cycle 7 therapy for odynophagia and dyspnea on exertion. We will follow closelywith future exams. (7) Anxiety Following with palliative medicine and primary care Dr. Tiki Dockery who areprimary prescribers. I recommended increasing Ativan to twice daily, dropping Zarxio (neutrophilic leukocytosis may be impacting nausea), and treating asthma to control symptoms. (8) Encounter for chemotherapy management Tolerated first 3 cycles well reasonably well. Since cycle 4, he has noted weight loss, early satiety, and increasing fatigue. 20% dose reduction oxaliplatin cycle 6--2-week delay of FOLFIRINOX for odynophagia/dyspnea/anxiety as noted above for cycle 7 given at 80% DR of all meds. Patient declines further dose reduction for symptoms. - Chemo Plan Chemo Plan (Dose, Rate, Freq): FOLFIRINOX on hold for odynophagia cycle 7. 20% dose reduction oxaliplatin cycle 6 FOLFIRINOX. FOLFIRINOX: Day 1: Oxaliplatin 85mg/m2 IV over 2 hours; Irinotecan 180mg/m2 IVover 90 minutes; Leucovorin 400mg/m2 IV over 90 minutes; followed by Day 1: Fluorouracil 400mg/m2 IV push; followed by Days 1-2 Fluorouracil 2,400 mg/m2 IV continuous infusion over 46 hours. Repeat cycle every 2 weeks x 12 cycles. Cycle 1, Day 1 04/12/2020 Number of Cycles: 12 Goal of Treatment: Curative - Time with Patient Time Spent with Patient (Follow Up Visit): 35 minutes - high complexity visit--symptom review, results of PFTs, discussion with primary physician. Coordination of Care & Counseling Time: Greater than 50% of time spent with patient was for coordination of care (as documented) and [id number] counseling of patient and/or family. Dictated By: Margaret Delgado MD DD/ [id number] Signed By: <Electronically signed by MD Margaret Delgado> 08/12/20 0623 [facility] Work Phone: [phone] Progress note Author Margaret Delgado [facility] July 26, 2020 6:40am Note Date/Time July 25, 2020 2:27p m [facility] [place] [address] Hem/Onc Follow Up Note - OP Signed Patient: Altagracia Conway MR#: [id number] : 1955 Acct:[id number] Age/Sex: 64 / M Type: REG RCR Copies to: DO Nasim Allen MD Katherine M McGraw, NYLA~ Subjective Date/Time of Service: Date of Service: 07/25/2020 Time of Service: 14:26 Chief Complaint: patient is here today for 2 week follow up for pancreatic cancer. He has been sick all weekend nausea, weak and shortness of breath. He feels anxious and on edge. He is here to review labs and PFT HPI: 07/25/2020: Altagracia resumed FOLFIRINOX cycle 7 one week ago at 80% dose of all meds. He notes persistent dyspnea and does not feel improved with albuterol metered dose inhalers. I offered to delay chemo or reduce dose further, but he fears recurrence and wants to proceed. He requested IV nausea meds and hydration today. I will contact Dr. Dockery and recommend increasing Ativan totwice daily with his Abilify and Claudettealta. His PFTs are consistent with asthma--reversible obstruction. I'm adding budesonide (Pulmcort) twice daily toAlbuterol MDIs. He cannot get an appointment with pulmonary medicine until 08 September. WBC 35,000--some of his anxiety may be due to growth factors. I will drop Zarxio next cycle and I will see him in 2 weeks after cycle 8. 07/13/2020: Altagracia is here for follow-up after delaying cycle 7 chemotherapy over the past week. He was due to be treated yesterday but has continued dyspnea with exertion and wishes to defer therapy another week. He was admitted overnight 1 week ago for his dyspnea and treated with antibiotics as well as acyclovir and nystatin swish and swallow for odynophagia which is slowly improving. He still reports that he has dyspnea with exertion and climbing stairs. On exam today he had some mild wheezing on the right and has not been using MDIs. I informed him that we will send for PFTs with lung volumes and DLCO as well as a trial of albuterol nebulizer in treatment room today and MDIs at home. He also has mild hypokalemia and hypomagnesemia. If he continues to improve steadily we may treat with overall 80% dose of all meds for FOLFIRINOX and I will see him in follow-up in 2 weeks. 07/06/2020: Altagracia would have been scheduled for cycle 7-day 1 on Tuesday 07/04, butthis was held when he presented with significant dyspnea on exertion and was sent to the emergency department. CT PE protocol was negative for pulmonary embolism and oxygen saturation was 98% on room air but he had significant tachypnea. He had no associated cough but reported a mouth sore on the left side of his tongue and severe odynophagia (10/10 pain). He has been using topical viscous lidocaine which is not resolved his symptoms. He was admitted and blood culture through his port showed a presumptive coagulase-negative staphthrough the port and no growth from peripheral culture through the wrist. Also had negative nasopharyngeal panel, negative coronavirus, and negative urine culture. He still has significant tachypnea with respiratory rate about 25 and heart rate 116. Saturation is 99% on room air. --We will continue to hold his chemotherapy. I am treating him with 1 L fluid normal saline, 2 mg IV morphine and will repeat every 15 to 20 minutes until pain less than 4 out of 10, and start vancomycin for 2-week course with dosing per pharmacy. This can be given as an outpatient. He does still have significant leukocytosis which could be due to prior Neulasta and received 1 unit of packed red blood cells yesterday for hospital discharge for hemoglobin 7.7. I will reassess him in 1 week to determine if he can resume chemotherapy. I am also prescribing acyclovir and Diflucan elixirs for his odynophagia. We will put in a palliative medicine consult. 06/20/2020: Altagracia is here for cycle 6-day 1 adjuvant FOLFIRINOX. He has persistent nausea without emesis (added compazine last week), poor appetite, andgeneralized weakness. He lost 4kg in the past 2 weeks. Also notes increased numbness of hands and feet. Potassium (2.7) and Magnesium (1.4) returned low today--hydrating with 1L Normal saline with 40meq KCl IV and 4g MgSO4 IV today. Send home with oral KCl 20meq bid. We will recheck K and Mg Saturday and dose reduce Oxaliplatin by 20% for next cycle. If continued nausea and fatigue--ok to delay therapy one week. Restaging CT without evidence of recurrence 06/15/2020. F/u 1 week if dose delay, 2 weeks if treated Saturday. 05/25/2020: Altagracia is here for cycle 4-day 1 adjuvant FOLFIRINOX. He notes that he has intermittent nausea but is well controlled on his current medications. He notes early satiety and was recently given additional boost to use once daily. He has lost about 4 kg over the last month. 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 Fatigue is stable and hedenies abdominal or back pain. Renal function has proved since starting therapy. He has moderate anemia but does not require transfusion. At this point will continue full dose FOLFIRINOX and restage with CT chest abdomen pelvis prior to cycle 6 as well as CA 19-9. Next follow-up in 1 month with labs. 04/25/2020: Altagracia commenced adjuvant FOLFIRINOX C1D1 on 04/12/2020--tolerated well. Denies fatigue, nausea, constipation/diarrhea, abdominal pain or cold-induced neuropathy. F/u labs unremarkable. He wishes to move infusion to if possible for cycle 2 due to an important business meeting tomorrow (willhave to set up [facility] eval to d/c 5FU pump Saturday). Otherwise no concerns--f/u with me in one month for tumor markers and exam--continue 100% dose. PREVIOUS HISTORY: This is a 64-year-old male who originally presented to [facility] with nausea, vomiting, diarrhea in October 2019 and was found to have elevated liver enzymes with total bilirubin 12.7, alkaline phosphatase 408, ALT 247, AST 197, lipase 161, white blood cell count of thousand 100, hemoglobin 12.9, platelets 139,000. INR 1.2 and hemoglobin A1c 9.1. MRCP showed extensiveextra and intrahepatic biliary dilatation up to 1.5 cm with a dilated pancreaticduct at 5 mm without discrete mass. ERCP 11/10/[address] Weaver revealed 2 mm stricture in the common bile duct, status post sphincterotomy, brushings, and placement of plastic stent. He was referred for EUS/ERCP on 12/07/[address] Margaret Malcolm with fine-needle biopsy showing atypical cells present, suspicious for carcinoma. At that time the biliary stent was partially occluded and there was a single severe biliary stricture in the lower third of the main bile duct (malignant appearing) status post dilation and brushing also showing atypical ductal cells with another placement of plastic pancreatic stent. His care was further delayed about 1 month when he was unable to be reached by phone to discuss further plan of care. He was seen by gastroenterology at [facility] in late December complaining of increased epigastric pain. He also was noted to have about 20 pounds of weight loss and worsening diabetes. January 10 he had repeat endoscopic ultrasound with a masslike region in the pancreatic head and again brushings showed atypical cells with fine-needle aspiration again with atypical cells suspicious for cancer. CT abdomen pelvis at [facility] 01/22/2020 revealed no distant metastatic disease. IMPRESSION: 1. Pancreatic head mass measuring 2.6 x 2.2 x 3.0 cm, with 180 degree abutment and contour abnormality of the patent SMV, with increasing pancreatic ductal dilatation, highly concerning for pancreatic adenocarcinoma. The superior mesenteric artery and celiac artery are not involved. Malignant involvement of a 9 mm peripancreatic lymph node is not excluded. 2. Status post common bile duct stent placement. Air within the stent, left greater than right pneumobilia, and air within the gallbladder all suggest stent patency. 3. Enlarged prostate. Please correlate with PSA. Due to nondiagnostic biopsies and resectable disease, he consented to upfront Whipple procedure (pancreatoduodenectomy) performed 02/15/2020. He tolerated surgery well and has returned to eating a normal diet. Diabetes is well controlled on his current regimen with insulin managed by Dr. Tiki Dockery at [facility]. 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 She does have some peripheral neuropathy from diabetes but this does not limit his activity. Given high risk features of perineural and lymphovascular invasion as well as anaplastic poorly differentiated histology, we discussed FOLFIRINOX adjuvant therapy which may commence after placement of infusion port in the next 1 to 2 weeks. Today we reviewed chemotherapy counseling for FOLFIRINOX (5-fluorouracil, leucovorin, irinotecan, oxaliplatin every 2 weeks for 12 cycles). Goal of therapy is curative. Common toxicities were reviewed to include myelosuppression, fatigue, nausea, vomiting, constipation, diarrhea, mouth sores, and alopecia. Other toxicities may include pneumonitis, cold-induced neuropathy, cumulative neuropathy, secondary malignancies, hepatic and renal toxicities. The patient signed informed consent and will follow-up as directed. Of note he does have a history of chronic hepatitis C status post treatment withEpclusa with complete response. He reports that his mother had pancreatic cancer and in her 60s as well as a father with pancreatic cancer who at age 82. Brother had lung cancer but no other family history of malignancies. He is an active smoker 1/2 pack/day since age 14 and continues actively smoking. He denies alcohol use quitting about 7 years ago when he was diagnosedwith hepatitis C. 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 DIAGNOSIS: 1. 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 2. Diabetes mellitus, insulin requiring with mild peripheral neuropathy 3. History of hepatitis C status post curative Epclusa therapy around 2013. 4. Family history of mother and father with pancreatic cancer 5. History of anxiety disorder and depression 6. Ongoing tobacco use 7. Unintentional weight loss - Summary of Therapies Summary of Therapies: 1. Whipple's procedure/pancreaticoduodenectomy 02/15/2020. 2. FOLFIRINOX therapy commenced 04/12/2020. FOLFIRINOX: Day 1: Oxaliplatin 85mg/m2 IV over 2 hours; Irinotecan 180mg/m2 IVover 90 minutes; Leucovorin 400mg/m2 IV over 90 minutes; followed by Day 1: Fluorouracil 400mg/m2 IV push; followed by Days 1-2 Fluorouracil 2,400 mg/m2 IV continuous infusion over 46 hours. Repeat cycle every 2 weeks x 12 cycles. --cycle 6 06/22/2020--Will dose reduce oxaliplatin 20% for grade 3 nausea/grade 2neuropathy/renal insufficiency --Cycle 7 07/04/2020--on hold for intractable dyspnea and oral mucositis, 07/13/2020 continuing to hold cycle 7 for another week per patient request for ongoing dyspnea. --Resumed cycle 7 07/20/2020: 80% dose for all meds. ROS Details: All systems reviewed & no additional complaints except as documented Subjective/ROS - Narrative: CONSTITUTIONAL: Positive for moderate fatigue (decreased ADL--PS 2), negative for fever or night sweats. Recurrent anxiety and psychological distress, resumed normal diet. HEAD AND NECK: Negative for changes in hearing and vision. No oral ulcers. No change in voice, nasal congestion and nasal drainage. + altered taste. Resolved Odynophagia. PULMONARY: Negative for chest pain, cough and positive for marked dyspnea--no wheezing today. No pneumonia or PE on chest CT CARDIOVASCULAR: Negative for claudication and irregular heartbeat/palpitations. GASTROINTESTINAL: Negative for abdominal pain (well healed postop Whipple procedure). Positive for early satiety with decreased appetite and 6 kg weight loss over the last 2 weeks. Stable nausea without vomiting or constipation. Positive for intermittent diarrhea, not consistently using Imodium. GENITOURINARY: Negative for dysuria and hematuria. ENDOCRINE: Negative for cold intolerance and heat intolerance. Diabetes mellitus about 10 years, worsening control prior to pancreas cancer diagnosis. Now insulin dependent. CENTRAL NERVOUS SYSTEM: Negative for gait disturbance and headache. + peripheral neuropathy hands and feet--stable with 20% dose reduction oxaliplatin. PSYCHIATRIC: Positive for increased anxiety regarding symptoms without depression. DERMATOLOGICAL: Negative for pruritus and rash. Negative for suspicious skin lesions. MUSCULOSKELETAL: Negative for back pain and bone/joint symptoms. HEMATOLOGICAL: Negative for bleeding and easy bruising. Positive for 1 unit redblood cell transfusion early July. Negative for history of thromboembolic disease ALLERGY: Negative for environmental allergies and food allergies. [facility] - History Attestation statement: The following information was validated with the patient. Source: Old Records Reviewed - Medical History Medical History: Medical History (Last Reviewed 07/26/20 @ 06:17 by Margaret Delgado MD) Amputated toe of right foot Anxiety Blockage of a bile duct liver stents placed d/t blockage Depression Diabetes mellitus History of hepatitis C Hyperlipemia Hypertension Neuropathy Pancreatic cancer - Surgical History Surgical History: Surgical History (Last Reviewed 07/26/20 @ 06:17 by Margaret Delgado MD) History of cholecystectomy done at time of whipple History of gastrointestinal surgery whipple procedure 02/2020 - Family History Family History: Family History (Last Reviewed 07/26/20 @ 06:17 by Margaret Delgado MD) Father Pancreatic cancer Mother Pancreatic cancer - Social History Smoking Status: Current every day smoker Tobacco Type: cigarettes Substance Use Type: None Substance Abuse Comment: states I smoke marijuana every now and then enc not to am of surgery Home Medications & Allergies Allergies No Known Allergies Allergy (Verified 07/25/20 14:13) Home Medications prochlorperazine maleate 10 mg PO Q6HR 07/05/20 [History Confirmed 07/25/20] acyclovir 400 mg PO BID 14 Days #300 ml 07/06/20 [Rx Confirmed 07/25/20] albuterol sulfate [ProAir HFA] 2 puff INHALATION Q4-6H PRN 30 Days #1 g 07/13/20[Rx Confirmed 07/25/20] gabapentin 100 mg PO BID 07/14/20 [History Confirmed 07/25/20] budesonide [Pulmicort Flexhaler] 1 inh INHALATION BID 30 Days #60 ea 07/25/20 [Rx] Objective - Height/Weight Height/Weight: Height 6 ft 2 in Weight 76.657 kg BSA for Today's Weight 2.07 - Vital Signs Vital Signs: 07/25/20 14:17 Temperature 98.0 F Pulse Rate [Left Brachial] 93 H Respiratory Rate 20 Blood Pressure [Left Arm] 153/75 H 02 Sat by Pulse Oximetry 98 - Pain Tongue Pain Intensity: 4 - Emotional Needs Assessment Emotional Needs Assessment: Emotional Needs Identified? Yes: feels anxious Distress Screening Total 3 Physical Exam Narrative: CONSTITUTIONAL: The patient is in no respiratory distress. He is moderately fatigued and mildly cachectic. HEAD / FACE: Normocephalic. EYES: Pupils are equal and reactive to light. Conjunctivae and lids are benign in appearance. Ocular movement intact. EARS: Hearing grossly intact. NOSE / MOUTH / THROAT: Nose, mouth, tongue and oropharynx--No oral ulcers of thrush today. NECK / THYROID: Neck is supple. Thyroid is symmetrical, without thyromegaly, masses or palpable nodules. LYMPHATIC: No palpable cervical, supraclavicular, axillary, or inguinal adenopathy. RESPIRATORY: Normal to inspection. Lungs clear to auscultation and percussion. Improvement of prio wheezing over right lung without rales, rhonchi or rubs. Improvement of prior tachypnea without significant increased work of breathing (no intercostal retractions). CARDIOVASCULAR: Regular rate and rhythm. No murmurs, gallops, or rubs. VASCULAR: Carotid, radial, femoral and pedal pulses present bilaterally. No bruits. ABDOMEN: Bowel sounds normoactive. Soft, mild epigastric tenderness and non-distended. No hepatosplenomegaly. No masses. Well healed incisions from Whippleprocedure. GENITOURINARY: No CVA tenderness. No suprapubic fullness or tenderness. No groinadenopathy. No evidence of hernias. INTEGUMENTARY: The skin is unremarkable. No rashes. No suspicious lesions BACK / SPINE: The back is nontender. No stepoff deformity. MUSCULOSKELETAL: Normal musculature, no joint deformities or abnormalities, normal range of motion for all four extremities. EXTREMITIES: No edema, cyanosis or clubbing. No Kyle sign. NEUROLOGICAL: Alert and oriented. Cranial nerves intact. No gross motor or sensory deficits. PSYCHIATRIC: Still anxious but less tearful during the visit today, no SI/HI. - ECOG Performance Status ECOG Score: 2 Results - Labs Labs: Diagram of Most Recent CBC and CMP 07/25/20 13:23 07/25/20 13:23 Labs - Last 7 Days 07/25/20 13:23: PHA Creatinine Clear 76.11, Sodium 136, Potassium 4.3, Chloride 102, Carbon Dioxide 23.2, BUN 19, Creatinine 1.14, Est GFR ( Amer) > 60, Est GFR (Non-Af Amer) > 60, Glucose 269 H, Calcium 9.3, Magnesium 1.7, Total Bilirubin 0.4, AST 22, ALT 21, Alkaline Phosphatase 222 H, Total Protein 6.9, Albumin 3.6, Globulin 3.3, Albumin/Globulin Ratio 1.1 07/25/20 13:23: Corrected WBC 35.2 H, Uncorrected WBC Count 35.2 H, RBC 3.18 L, Hgb 10.5 L, Hct 31.4 L, MCV 98.5, MCH 33.0, MCHC 33.5, RDW 17.0 H, Plt Count 180, MPV 8.5, Neut % (Auto) 89.3, Lymph % (Auto) 7.1, Alfalfa % (Auto) 2.8, Eos % (Auto) 0.5, Baso % (Auto) 0.3, Neut # (Auto) 31.5 H, Lymph # (Auto) 2.5, Alfalfa # (Auto) 1.0 H, Eos # (Auto) 0.2, Baso # (Auto) 0.1, Nucleated RBC % (auto) 0.0, Dohle Bodies Slight, Platelet Estimate Normal, Plt Morphology Comment Normal, RBC Morphology N/A, Poikilocytosis Slight, Anisocytosis Slight, Tear Drop Cells Rare, Ovalocytes Slight - Impressions No new imaging for review. - Other Results Results/Comments: Date of Service: 07/21/20 Accession #: Copies to: MD Romeo Marino MD~ HISTORY: This is a 64-year-old, 74-inch tall, 180-pound male, smoker,referred by Dr. Margaret Delgado with the diagnosis of dyspnea and tachypnea. The patient had adequate durations of exhalation, which were equivalent. Flow volume loops were appropriate in appearance with minimal improvement in expiratory flow after administration of bronchodilators. Spirometric data was acceptable and reproducible. Overall, these appear to be technically adequate studies. SPIROMETRY: Prebronchodilator FEV1 to forced vital capacity ratio is reduced at64% with a normal forced vital capacity of 4.79 L or 90% predicted, and a moderate reduction in the FEV1 to 3.07 L or 77% predicted. The QHQ66-85% is lownormal at 2.16 L/sec or 68% predicted. After administration of bronchodilators,there is no change in forced vital capacity with a significant 11% improvement in the FEV1 to 3.41 L or 85% predicted and a significant 29% improvement in the [id number]% to 2.77 L/sec or 88% predicted. LUNG VOLUMES: Lung volumes by plethysmography indicate a normal total lung capacity of 8.13 L or 102% predicted with a normal vital capacity of 4.79 L or 90% predicted, and a moderate reduction in inspiratory capacity to 2.63 L or 76%predicted. Residual volume is increased at 3.35 L or 127% predicted, and residual volume to total lung capacity ratio is normal at 41%. DIFFUSION CAPACITY: Single-breath diffusion capacity is moderately reduced at 17.0 mL/min/mmHg, which is 58% predicted, and is improved, though mildly reducedwhen adjusted for alveolar volume at 72% predicted. SUMMARY: These technically adequate pulmonary function studies suggest evidenceof mild obstruction with evidence of a bronchodilator response without residual obstruction after bronchodilators. There is no clear evidence of restriction with evidence of mild air trapping without hyperinflation. Diffusion capacity is moderately reduced and improves though remains mildly reduced when adjusted for alveolar volume suggesting that ventilation-perfusion mismatching may be theprimary contributor to the decrease in single-breath diffusion capacity, but also with a mild degree of anemia and/or an intrinsic decline in diffusion across the alveolar membrane and capillary wall. These studies would be actually consistent with a diagnosis of asthma/reactive airways disease in the appropriate clinical scenario. There are no prior studies available for comparison. Clinical correlation is recommended. Transcribed By: ZHANNA 07/22/20 1121 Dictated By: Romeo Shipley MD 07/21/20 5553 Assessment and Plan - TNM Staging Staging: Upfront resection of pancreatic Undifferentiated carcinoma anaplastic type. 0/39LNs. pT2 N0. (1) Primary cancer of head of pancreas Upfront Whipple procedure for resectable pancreas cancer (initial biopsies suspicious but nondiagnostic for malignancy). 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 Poor risk features and good performance status (although mild baseline diabetic neuropathy). He consented to FOLFIRINOXadjuvant therapy. General surgery referral for infusion port placement. 04/25/2020: No significant toxicities at followup visit (cycle 1 day 1 was 04/12/2020). We will continue 100% dose FOLFIRINOX and follow closely for hyperglycemia and neuropathy symptoms due to his baseline diabetic neuropathy. 05/25/2020: Patient has increased fatigue, early satiety, and weight loss. Adding Boost at least twice daily and encouraging use of Imodium and Zofran regularly. Okay for cycle 4 today with stable labs. Restaging CT chest abdomenpelvis will be scheduled prior to cycle 6 in 1 month I will see him at that time. 06/20/2020: Worsening fatigue, nausea, poor appetite, and weight loss. Worsening neuropathy. Decrease oxaliplatin by 20%, replete low potassium and magnesium. No evidence of recurrence on CT CAP. Reassess Saturday whether K and Mg returned today normal and OK to resume FOLFIRINOX. F/u 1 week if dose delay, 2 weeks if tx. 07/06/2020: Admitted 07/04/2020 for work-up of sudden onset tachypnea with normal oxygen saturation. CT PE protocol was negative for pulmonary embolism or infiltrate. Lactic acid was negative for sepsis and VBG showed respiratory alkalosiswith metabolic acidosis. Blood cultures did show coagulase negative staph from infusion port but negative on peripheral culture. He has severe odynophagia andmouth sore. For now I am hydrating him with 1 L normal saline, holding chemotherapy until resolution of toxicities. We will start vancomycin 1.5 g daily (would calculate to 1 g twice daily but patient does not wish to return twice daily for infusions). We will reassess Saturday to see if he should continue 2 weeks of vancomycin. Also giving IV morphine 2 mg now and redose every 15 to 20 minutes until pain less than 4/10. Adding Diflucan elixir and acyclovir elixir for his odynophagia. Consult to palliative medicine for further titration of outpatient pain medication. Follow-up in 1 week to review symptoms and to determine if he is stable to resume adjuvant FOLFIRINOX therapy with likely 50% dose reduction of 5-FU leucovorin. 07/13/2020: Negative blood cultures and CT PE protocol negative for pulmonary embolism or infiltrate. His dyspnea persists despite levofloxacin as well as acyclovir and nystatin for his prior odynophagia. His pain control is stable. I am sending him for pulmonary evaluation with full PFTs and lung volumes with DLCO as well as trial of albuterol nebulizer with electrolyte repletion today and sending with Eladio WUI. Follow-up with me in 2 weeks and we will consider resuming FOLFIRINOX at 80% dose overall of all drugs at his next follow-up if symptoms remain stable. Otherwise he may stop adjuvant therapy and continue observation only for resected pancreas cancer with anaplastic carcinoma. 07/25/2020: Resumed cycle 7 FOLFIRINOX at 80% dose of all meds--continued nausea, fatigue, and anxiety with subjective dyspnea. WBC 35,000 which may be increased response to Zarxio. No evidence of infection. PFTs consistent with asthma (will address below). Drop Zarxio with day 8 CBC and followup next cycle. Patient declines further dose reduction of FOLFIRINOX but will get Aloxi/Hydration today. All questions answered over this 35 min face to face visit for review of PFT/lung volumes/DLCO, palliation of symptoms, and toxicity review on FOLFIRINOXchemotherapy. (2) Asthma Qualifiers: Asthma severity: moderate Asthma persistence: persistent Negative evaluation for PE, treated for coag negative staph infection therefore he completed a course of levofloxacin. He is not hypoxic but did have some mildwheezing on exam today persistent dyspnea with exertion. He did not feel improved after albuterol MDI use at home (although only using about once daily). PFTs show reversible obstruction. Encouraged to use albuterol MDI 4 times daily and adding Pulmocort MDI twice daily. He will not be able to have full work-up with pulmonary medicine until early September due to appointment availability. (3) Peripheral neuropathy due to chemotherapy Dose reduction Oxaliplatin 20% cycle 6 FOLFIRINOX--had some stabilization of neuropathy. Will continue to follow. (4) Diabetes mellitus with neuropathy Qualifiers: Diabetes mellitus type: type 2 Diabetes mellitus halfway insulin use: unspecified emt intermediate insulin use status Qualified Code(s): E11.40 - Type 2 diabetes mellitus with diabetic neuropathy, unspecified Followed by Dr. Dockery--improving control since surgery and recent adjustment of insulin. Followup blood sugars closely while on chemotherapy. (5) Anemia complicating neoplastic disease Hemoglobin was 7.7 on 07/05/2020 and due to his tachypnea and distress he was transfused 1 unit of packed red blood cells. Now hemoglobin has improved to 10.5 since 20% dose reduction of all chemotherapy meds. We will follow closely during FOLFIRINOX chemotherapy--dropping Zarxio (cycle 8 in 1 week). (6) Cancer cachexia Patient lost another 6kg over 2 weeks. Using Boost supplementation. No obstruction on restaging CT late June, but persistent nausea without emesis. Dose reduced oxaliplatin for cycle 6 and 7, replace electrolytes. We delayed cycle 7 therapy for odynophagia and dyspnea on exertion. We will follow closelywith future exams. (7) Anxiety Following with palliative medicine and primary care Dr. Tiki Dockery who areprimary prescribers. I recommended increasing Ativan to twice daily, dropping Zarxio (neutrophilic leukocytosis may be impacting nausea), and treating asthma to control symptoms. (8) Encounter for chemotherapy management Tolerated first 3 cycles well reasonably well. Since cycle 4, he has noted weight loss, early satiety, and increasing fatigue. 20% dose reduction oxaliplatin cycle 6--2-week delay of FOLFIRINOX for odynophagia/dyspnea/anxiety as noted above for cycle 7 given at 80% DR of all meds. Patient declines further dose reduction for symptoms. - Chemo Plan Number of Cycles: 12 Goal of Treatment: Curative - Time with Patient Time Spent with Patient (Follow Up Visit): 35 minutes - high complexity visit--symptom review, results of PFTs, discussion with primary physician. Coordination of Care & Counseling Time: Greater than 50% of time spent with patient was for coordination of care (as documented) and [id number] counseling of patient and/or family. Dictated By: Margaret Delgado MD DD/ [id number] Signed By: <Electronically signed by MD Margaret Delgado> 07/26/20 0640 [facility] Work Phone: [phone] Progress note Author Margaret Delgado [facility] July 13, 2020 9:14am Note Date/Time July 13, 2020 8:46am [facility] [place] [address] Hem/Onc Follow Up Note - OP Signed Patient: Altagracia Conway MR#: [id number] : 1955 Acct:[id number] Age/Sex: 64 / M Type: REG RCR Copies to: DO Nasim Allen MD~ Subjective Date/Time of Service: Date of Service: 07/13/2020 Time of Service: 08:45 Chief Complaint: Patient is here today for 1 week follow up visit for pancreaticcancer and to review labs. His mouth sore is improving, but he still has shortness of breath and not sleeping well. HPI: 07/13/2020: Altagracia is here for follow-up after delaying cycle 7 chemotherapy over the past week. He was due to be treated yesterday but has continued dyspnea with exertion and wishes to defer therapy another week. He was admitted overnight 1 week ago for his dyspnea and treated with antibiotics as well as acyclovir and nystatin swish and swallow for odynophagia which is slowly improving. He still reports that he has dyspnea with exertion and climbing stairs. On exam today he had some mild wheezing on the right and has not been using MDIs. I informed him that we will send for PFTs with lung volumes and DLCO as well as a trial of albuterol nebulizer in treatment room today and MDIs at home. He also has mild hypokalemia and hypomagnesemia. If he continues to improve steadily we may treat with overall 80% dose of all meds for FOLFIRINOX and I will see him in follow-up in 2 weeks. 07/06/2020: Altagracia would have been scheduled for cycle 7-day 1 on Tuesday 07/04, butthis was held when he presented with significant dyspnea on exertion and was sent to the emergency department. CT PE protocol was negative for pulmonary embolism and oxygen saturation was 98% on room air but he had significant tachypnea. He had no associated cough but reported a mouth sore on the left side of his tongue and severe odynophagia (10/10 pain). He has been using topical viscous lidocaine which is not resolved his symptoms. He was admitted and blood culture through his port showed a presumptive coagulase-negative staphthrough the port and no growth from peripheral culture through the wrist. Also had negative nasopharyngeal panel, negative coronavirus, and negative urine culture. He still has significant tachypnea with respiratory rate about 25 and heart rate 116. Saturation is 99% on room air. --We will continue to hold his chemotherapy. I am treating him with 1 L fluid normal saline, 2 mg IV morphine and will repeat every 15 to 20 minutes until pain less than 4 out of 10, and start vancomycin for 2-week course with dosing per pharmacy. This can be given as an outpatient. He does still have significant leukocytosis which could be due to prior Neulasta and received 1 unit of packed red blood cells yesterday for hospital discharge for hemoglobin 7.7. I will reassess him in 1 week to determine if he can resume chemotherapy. I am also prescribing acyclovir and Diflucan elixirs for his odynophagia. We will put in a palliative medicine consult. 06/20/2020: Altagracia is here for cycle 6-day 1 adjuvant FOLFIRINOX. He has persistent nausea without emesis (added compazine last week), poor appetite, andgeneralized weakness. He lost 4kg in the past 2 weeks. Also notes increased numbness of hands and feet. Potassium (2.7) and Magnesium (1.4) returned low today--hydrating with 1L Normal saline with 40meq KCl IV and 4g MgSO4 IV today. Send home with oral KCl 20meq bid. We will recheck K and Mg Saturday and dose reduce Oxaliplatin by 20% for next cycle. If continued nausea and fatigue--ok to delay therapy one week. Restaging CT without evidence of recurrence 06/15/2020. F/u 1 week if dose delay, 2 weeks if treated Saturday. 05/25/2020: Altagracia is here for cycle 4-day 1 adjuvant FOLFIRINOX. He notes that he has intermittent nausea but is well controlled on his current medications. He notes early satiety and was recently given additional boost to use once daily. He has lost about 4 kg over the last month. 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 Fatigue is stable and he denies abdominal or back pain. Renal function has proved since starting therapy. He has moderate anemia but does not require transfusion. At this point will continue full dose FOLFIRINOX and restage with CT chest abdomen pelvis prior to cycle 6 as well as CA 19-9. Next follow-up in 1 month with labs. 04/25/2020: Altagracia commenced adjuvant FOLFIRINOX C1D1 on 04/12/2020--tolerated well. Denies fatigue, nausea, constipation/diarrhea, abdominal pain or cold-induced neuropathy. F/u labs unremarkable. He wishes to move infusion to if possible for cycle 2 due to an important business meeting tomorrow (will have to set up [facility] inpatient duckworth eval to d/c 5FU pump Saturday). Otherwise no concerns--f/u with me in one month for tumor markers and exam--continue 100% dose. PREVIOUS HISTORY: This is a 64-year-old male who originally presented to [facility] with nausea, vomiting, diarrhea in October 2019 and was found to have elevated liver enzymes with total bilirubin 12.7, alkaline phosphatase 408, ALT 247, AST 197, lipase 161, white blood cell count of thousand 100, hemoglobin 12.9, platelets 139,000. INR 1.2 and hemoglobin A1c 9.1. MRCP showed extensiveextra and intrahepatic biliary dilatation up to 1.5 cm with a dilated pancreaticduct at 5 mm without discrete mass. ERCP 11/10/[address] Weaver revealed 2 mm stricture in the common bile duct, status post sphincterotomy, brushings, and placement of plastic stent. He was referred for EUS/ERCP on 12/07/[address] Margaret Malcolm with fine-needle biopsy showing atypical cells present, suspicious for carcinoma. At that time the biliary stent was partially occluded and there was a single severe biliary stricture in the lower third of the main bile duct (malignant appearing) status post dilation and brushing also showing atypical ductal cells with another placement of plastic pancreatic stent. His care was further delayed about 1 month when he was unable to be reached by phone to discuss further plan of care. He was seen by gastroenterology at [facility] in late December complaining of increased epigastric pain. He also was noted to have about 20 pounds of weight loss and worsening diabetes. January 10 he had repeat endoscopic ultrasound with a masslike region in the pancreatic head and again brushings showed atypical cells with fine-needle aspiration again with atypical cells suspicious for cancer. CT abdomen pelvis at [facility] 01/22/2020 revealed no distant metastatic disease. IMPRESSION: 1. Pancreatic head mass measuring 2.6 x 2.2 x 3.0 cm, with 180 degree abutment and contour abnormality of the patent SMV, with increasing pancreatic ductal dilatation, highly concerning for pancreatic adenocarcinoma. The superior mesenteric artery and celiac artery are not involved. Malignant involvement of a 9 mm peripancreatic lymph node is not excluded. 2. Status post common bile duct stent placement. Air within the stent, left greater than right pneumobilia, and air within the gallbladder all suggest stent patency. 3. Enlarged prostate. Please correlate with PSA. Due to nondiagnostic biopsies and resectable disease, he consented to upfront Whipple procedure (pancreatoduodenectomy) performed 02/15/2020. He tolerated surgery well and has returned to eating a normal diet. Diabetes is well controlled on his current regimen with insulin managed by Dr. Tiki Dockery at [facility]. 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 She does have some peripheral neuropathy from diabetes but this does not limit his activity. Given high risk features of perineural and lymphovascular invasion as well as anaplastic poorly differentiated histology, we discussed FOLFIRINOX adjuvant therapy which may commence after placement of infusion port in the next 1 to 2 weeks. Today we reviewed chemotherapy counseling for FOLFIRINOX (5-fluorouracil, leucovorin, irinotecan, oxaliplatin every 2 weeks for 12 cycles). Goal of therapy is curative. Common toxicities were reviewed to include myelosuppression, fatigue, nausea, vomiting, constipation, diarrhea, mouth sores, and alopecia. Other toxicities may include pneumonitis, cold-induced neuropathy, cumulative neuropathy, secondary malignancies, hepatic and renal toxicities. The patient signed informed consent and will follow-up as directed. Of note he does have a history of chronic hepatitis C status post treatment withEpclusa with complete response. He reports that his mother had pancreatic cancer and in her 60s as well as a father with pancreatic cancer who at age 82. Brother had lung cancer but no other family history of malignancies. He is an active smoker 1/2 pack/day since age 14 and continues actively smoking. He denies alcohol use quitting about 7 years ago when he was diagnosedwith hepatitis C. 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 DIAGNOSIS: 1. 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 2. Diabetes mellitus, insulin requiring with mild peripheral neuropathy 3. History of hepatitis C status post curative Epclusa therapy around 2013. 4. Family history of mother and father with pancreatic cancer 5. History of anxiety disorder and depression 6. Ongoing tobacco use 7. Unintentional weight loss - Summary of Therapies Summary of Therapies: 1. Whipple's procedure/pancreaticoduodenectomy 02/15/2020. 2. FOLFIRINOX therapy commenced 04/12/2020. FOLFIRINOX: Day 1: Oxaliplatin 85mg/m2 IV over 2 hours; Irinotecan 180mg/m2 IVover 90 minutes; Leucovorin 400mg/m2 IV over 90 minutes; followed by Day 1: Fluorouracil 400mg/m2 IV push; followed by Days 1-2 Fluorouracil 2,400 mg/m2 IV continuous infusion over 46 hours. Repeat cycle every 2 weeks x 12 cycles. --cycle 6 06/22/2020--Will dose reduce oxaliplatin 20% for grade 3 nausea/grade 2neuropathy/renal insufficiency --Cycle 7 07/04/2020--on hold for intractable dyspnea and oral mucositis, 07/13/2020 continuing to hold cycle 7 for another week per patient request for ongoing dyspnea. ROS Details: All systems reviewed & no additional complaints except as documented Subjective/ROS - Narrative: CONSTITUTIONAL: Positive for moderate fatigue (decreased ADL--PS 2), negative for fever or night sweats. Improvement of prior anxiety and psychological distress due to oral pain and ongoing Odynophagia, now resumed normal diet. HEAD AND NECK: Negative for changes in hearing and vision. Positive for left lateral tongue for mouth ulcer. Negative for change in voice, nasal congestion and nasal drainage. + altered taste. Positive for Odynophagia as per HPI. PULMONARY: Negative for chest pain, cough and positive for marked dyspnea (? Due to pain, anxiety, or bacteremia)--today has mild wheezing. No pneumonia or PE on chest CT CARDIOVASCULAR: Negative for claudication and irregular heartbeat/palpitations. GASTROINTESTINAL: Negative for abdominal pain (well healed postop Whipple procedure). Positive for early satiety with decreased appetite and 4 kg weight loss over the last 2 weeks. Stable nausea without vomiting or constipation. Positive for intermittent diarrhea, not consistently using Imodium. GENITOURINARY: Negative for dysuria and hematuria. ENDOCRINE: Negative for cold intolerance and heat intolerance. Diabetes mellitus about 10 years, worsening control prior to pancreas cancer diagnosis. Now insulin dependent. CENTRAL NERVOUS SYSTEM: Negative for gait disturbance and headache. + peripheral neuropathy now more persistent aftereffects cycle (hands and feet)--stable with 20% dose reduction oxaliplatin. PSYCHIATRIC: Positive for increased anxiety regarding symptoms without depression. DERMATOLOGICAL: Negative for pruritus and rash. Negative for suspicious skin lesions. MUSCULOSKELETAL: Negative for back pain and bone/joint symptoms. HEMATOLOGICAL: Negative for bleeding and easy bruising. Positive for 1 unit redblood cell transfusion yesterday. Negative for history of thromboembolic disease ALLERGY: Negative for environmental allergies and food allergies. [facility] - History Attestation statement: The following information was validated with the patient. Source: Old Records Reviewed - Medical History Medical History: Medical History (Last Reviewed 07/13/20 @ 09:05 by Margaret Delgado MD) Amputated toe of right foot Anxiety Blockage of a bile duct liver stents placed d/t blockage Depression Diabetes mellitus History of hepatitis C Hyperlipemia Hypertension Neuropathy Pancreatic cancer - Surgical History Surgical History: Surgical History (Last Reviewed 07/13/20 @ 09:05 by Margaret Delgado MD) History of cholecystectomy done at time of whipple History of gastrointestinal surgery whipple procedure 02/2020 - Family History Family History: Family History (Last Reviewed 07/13/20 @ 09:05 by Margaret Delgado MD) Father Pancreatic cancer Mother Pancreatic cancer - Social History Smoking Status: Current every day smoker Tobacco Type: cigarettes Substance Use Type: None Substance Abuse Comment: states I smoke marijuana every now and then enc not to am of surgery Home Medications & Allergies Allergies No Known Allergies Allergy (Verified 07/13/20 08:36) Home Medications zolpidem 5 mg PO HS PRN 07/04/20 [History Confirmed 07/13/20] lidocaine HCl [Lidocaine Viscous] 15 ml MUCOUS MEMBRANE Q6H PRN 30 Days ml 07/05/20 [Rx Confirmed 07/13/20] prochlorperazine maleate 10 mg PO Q6HR 07/05/20 [History Confirmed 07/13/20] acyclovir 400 mg PO BID 14 Days #300 ml 07/06/20 [Rx Confirmed 07/13/20] levofloxacin 750 mg PO DAILY #14 tab 07/08/20 [Rx Confirmed 07/13/20] nystatin 5 ml PO TID #210 ml 07/08/20 [Rx Confirmed 07/13/20] albuterol sulfate [ProAir HFA] 2 puff INHALATION Q4-6H PRN 30 Days #1 g 07/13/20[Rx] Objective - Height/Weight Height/Weight: Height 6 ft 2 in Weight 81.647 kg BSA for Today's Weight 2.03 - Vital Signs Vital Signs: 07/13/20 08:37 Temperature 98.1 F Pulse Rate [Left Brachial] 79 Respiratory Rate 20 Blood Pressure [Left Arm] 150/89 H 02 Sat by Pulse Oximetry 98 - Pain Tongue Pain Intensity: 4 - Emotional Needs Assessment Emotional Needs Assessment: Emotional Needs Identified? No Emotional Needs Identified? Yes Support System Family Physical Exam Narrative: CONSTITUTIONAL: The patient is in no respiratory distress. He appears less fatigued and mildly cachectic. HEAD / FACE: Normocephalic. EYES: Pupils are equal and reactive to light. Conjunctivae and lids are benign in appearance. Ocular movement intact. EARS: Hearing grossly intact. NOSE / MOUTH / THROAT: Nose, mouth, tongue and oropharynx--dry mucous membranes with left lateral tongue now 0.5 cm resolving apthous ulcer. No visible thrush but treating thrush and viral esophagitis due to prior severe odynophagia. No signs of inflammation. NECK / THYROID: Neck is supple. Thyroid is symmetrical, without thyromegaly, masses or palpable nodules. LYMPHATIC: No palpable cervical, supraclavicular, axillary, or inguinal adenopathy. RESPIRATORY: Normal to inspection. Lungs clear to auscultation and percussion. Positive for wheezing over right lung campoverde only without rales, rhonchi or rubs. Improvement of prior tachypnea without significant increased work of breathing (no intercostal retractions). CARDIOVASCULAR: Regular rate and rhythm. No murmurs, gallops, or rubs. VASCULAR: Carotid, radial, femoral and pedal pulses present bilaterally. No bruits. ABDOMEN: Bowel sounds normoactive. Soft, mild epigastric tenderness and non-distended. No hepatosplenomegaly. No masses. Well healed incisions from Whippleprocedure. GENITOURINARY: No CVA tenderness. No suprapubic fullness or tenderness. No groinadenopathy. No evidence of hernias. INTEGUMENTARY: The skin is unremarkable. No rashes. No suspicious lesions BACK / SPINE: The back is nontender. No stepoff deformity. MUSCULOSKELETAL: Normal musculature, no joint deformities or abnormalities, normal range of motion for all four extremities. EXTREMITIES: No edema, cyanosis or clubbing. No Kyle sign. NEUROLOGICAL: Alert and oriented. Cranial nerves intact. No gross motor or sensory deficits. PSYCHIATRIC: Very anxious and tearful during the visit today, no SI/HI. - ECOG Performance Status ECOG Score: 1 Results - Labs Labs: Diagram of Most Recent CBC and CMP 07/12/20 14:35 07/12/20 14:35 Labs - Last 7 Days 07/12/20 14:35: PHA Creatinine Clear 84.17, Sodium 137, Potassium 3.3 L, Chloride 110, Carbon Dioxide 19.6 L, BUN 11, Creatinine 0.95, Est GFR ( Amer) > 60, Est GFR (Non-Af Amer) > 60, Glucose 226 H, Calcium 8.6, Magnesium 1.4 L, Total Bilirubin 0.5, AST 37, ALT 26, Alkaline Phosphatase 185 H, Total Protein 6.1, Albumin 2.9 L, Globulin 3.2, Albumin/Globulin Ratio 0.9 07/12/20 14:35: Corrected WBC 12.2 H, Uncorrected WBC Count 12.2 H, RBC 2.74 L, Hgb 8.9 L, Hct 26.5 L, MCV 96.7, MCH 32.3, MCHC 33.4, RDW 18.4 H, Plt Count 160,MPV 9.1, Neut % (Auto) 79.5, Lymph % (Auto) 14.4, Alfalfa % (Auto) 5.1, Eos % (Auto) 0.7, Baso % (Auto) 0.3, Neut # (Auto) 9.7 H, Lymph # (Auto) 1.8, Alfalfa # (Auto) 0.6, Eos # (Auto) 0.1, Baso # (Auto) 0.0, Nucleated RBC % (auto) 0.0 - Impressions CT ANGIOGRAM OF THE CHEST, PULMONARY EMBOLISM PROTOCOL: CLINICAL INFORMATION: Shortness of breath, sent from the infusion center. History of pancreatic cancer. COMPARISON: 06/15/2020 TECHNIQUE: Following intravenous injection of 54 mL of Isovue-[address] scans of the chest were obtained using pulmonary embolism protocol. Coronal andsagittal reconstructed images, as well as volume rendered CT pulmonary angiographic images were also submitted. FINDINGS: Lungs: There is no pneumothorax. No pulmonary embolism is noted. There is no acute focal infiltrate or lung nodule. Mild chronic lung changes are demonstrated. No generalized pulmonary fibrosis or bronchiectasis is noted. There is no pleural effusion. Mediastinum and vidhya: There is no evidence of dissection of the thoracic aorta which shows no significant focal dilatation. Mild calcified plaque is shown at the aortic arch. There is no prominent mediastinal or hilar lymphadenopathy. Coronary arterial calcification is noted. There is no pericardial effusion. A right internal jugular Gesypy-s-Ivau is demonstrated. Axilla: There is no significant axillary lymphadenopathy bilaterally. Bony thorax: There is no compression fracture or localized bony destruction to the thoracic spine which shows a mild to moderate anterior osteophytosis. Bilateral ribs are intact. Upper abdomen: The upper abdomen shows mild fullness to the left adrenal gland, similar to the prior study. Mild pneumobilia is shown. CT/CT angio chest PE protocol IMPRESSION: NO PULMONARY EMBOLISM OR AORTIC DISSECTION. MILD CHRONIC LUNG CHANGES. The CT exam was performed using one or more of the following dose reduction techniques: Automated exposure control, adjustment of the MA and/or Kv accordingto patient size, or use of the iterative reconstruction technique. Impression dictated by: Casey Casillas M.D.07/04/2020 5:19 PM Assessment and Plan - TNM Staging Staging: Upfront resection of pancreatic Undifferentiated carcinoma anaplastic type. 0/39LNs. pT2 N0. (1) Primary cancer of head of pancreas Upfront Whipple procedure for resectable pancreas cancer (initial biopsies suspicious but nondiagnostic for malignancy). 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 Poor risk features and good performance status (although mild baseline diabetic neuropathy). He consented to FOLFIRINOXadjuvant therapy. General surgery referral for infusion port placement. 04/25/2020: No significant toxicities at followup visit (cycle 1 day 1 was 04/12/2020). We will continue 100% dose FOLFIRINOX and follow closely for hyperglycemia and neuropathy symptoms due to his baseline diabetic neuropathy. 05/25/2020: Patient has increased fatigue, early satiety, and weight loss. Adding Boost at least twice daily and encouraging use of Imodium and Zofran regularly. Okay for cycle 4 today with stable labs. Restaging CT chest abdomenpelvis will be scheduled prior to cycle 6 in 1 month I will see him at that time. 06/20/2020: Worsening fatigue, nausea, poor appetite, and weight loss. Worsening neuropathy. Decrease oxaliplatin by 20%, replete low potassium and magnesium. No evidence of recurrence on CT CAP. Reassess Saturday whether K and Mg returned today normal and OK to resume FOLFIRINOX. F/u 1 week if dose delay, 2 weeks if tx. 07/06/2020: Admitted 07/04/2020 for work-up of sudden onset tachypnea with normal oxygen saturation. CT PE protocol was negative for pulmonary embolism or infiltrate. Lactic acid was negative for sepsis and VBG showed respiratory alkalosis with metabolic acidosis. Blood cultures did show coagulase negative staph from infusion port but negative on peripheral culture. He has severe odynophagia and mouth sore. For now I am hydrating him with 1 L normal saline, holding chemotherapy until resolution of toxicities. We will start vancomycin 1.5 g daily (would calculate to 1 g twice daily but patient does not wish to return twice daily for infusions). We will reassess Saturday to see if he should continue 2 weeks of vancomycin. Also giving IV morphine 2 mg now and redose every 15 to 20 minutes until pain less than 4/10. Adding Diflucan elixir and acyclovir elixir for his odynophagia. Consult to palliative medicine for further titration of outpatient pain medication. Follow-up in 1 week to review symptoms and to determine if he is stable to resume adjuvant FOLFIRINOX therapy with likely 50% dose reduction of 5-FU leucovorin. 07/13/2020: Negative blood cultures and CT PE protocol negative for pulmonary embolism or infiltrate. His dyspnea persists despite levofloxacin as well as acyclovir and nystatin for his prior odynophagia. His pain control is stable. I am sending him for pulmonary evaluation with full PFTs and lung volumes with DLCO as well as trial of albuterol nebulizer with electrolyte repletion today and sending with Eladio WUI. Follow-up with me in 2 weeks and we will consider resuming FOLFIRINOX at 80% dose overall of all drugs at his next follow-up if symptoms remain stable. Otherwise he may stop adjuvant therapy and continue observation only for resected pancreas cancer with anaplastic carcinoma. All questions answered over this 35 min face to face visit for review of hospital stay, palliation of symptoms, electrolyte repletion, and toxicity review on FOLFIRINOX chemotherapy (on hold). (2) Odynophagia Patient is very anxious and tachypneic and has a large left tongue ulceration. He notes that he has not eaten in 3 days due to severe odynophagia. Viscous Lidocaine does not relieve symptoms. I am treating him with nystatin, acyclovir, and will titrate pain medication until resolution of symptoms. His chemotherapy is on hold as noted above. (3) Tachypnea, not elsewhere classified Negative evaluation for PE, may secondary to his coag negative staph infection therefore he is completing a course of levofloxacin. He is not hypoxic but did have some mild wheezing on exam today and persistent dyspnea with exertion. I am giving him a trial of albuterol nebulizer therapy as well as MDI at home and full work- up with pulmonary medicine with PFTs as noted above. (4) Peripheral neuropathy due to chemotherapy Dose reduction Oxaliplatin 20% cycle 6 FOLFIRINOX--had some stabilization of neuropathy but now odynophagia as noted above. (5) Diabetes mellitus with neuropathy Qualifiers: Diabetes mellitus type: type 2 Diabetes mellitus halfway insulin use: unspecified emt intermediate insulin use status Qualified Code(s): E11.40 - Type 2 diabetes mellitus with diabetic neuropathy, unspecified Followed by Dr. Dockery--improving control since surgery and recent adjustment of insulin. Followup blood sugars closely while on chemotherapy. (6) Anemia complicating neoplastic disease Hemoglobin was 7.7 last week and due to his tachypnea and distress he was transfused 1 unit of packed red blood cells. Now hemoglobin has improved to 8.9. We will follow closely during FOLFIRINOX chemotherapy (still on hold for 1week)--next CBC in 1 week. (7) Cancer cachexia Patient lost about 4kg in the prior month--another 4kg over 2 weeks. Recently started adding boost supplementation. No obstruction on restaging CT but persistent nausea without emesis. Dose reduced oxaliplatin for cycle 6, replaceelectrolytes, now delaying therapy for odynophagia and dyspnea on exertion. We will follow closely with future exams. (8) Encounter for chemotherapy management Tolerated first 3 cycles well reasonably well. Now has weight loss, early satiety, and increasing fatigue. 20% dose reduction oxaliplatin cycle 6--now atleast 2- week delay of FOLFIRINOX for odynophagia as noted above for cycle 7. - Chemo Plan Chemo Plan (Dose, Rate, Freq): FOLFIRINOX on hold for odynophagia cycle 7. 20% dose reduction oxaliplatin cycle 6 FOLFIRINOX. FOLFIRINOX: Day 1: Oxaliplatin 85mg/m2 IV over 2 hours; Irinotecan 180mg/m2 IVover 90 minutes; Leucovorin 400mg/m2 IV over 90 minutes; followed by Day 1: Fluorouracil 400mg/m2 IV push; followed by Days 1-2 Fluorouracil 2,400 mg/m2 IV continuous infusion over 46 hours. Repeat cycle every 2 weeks x 12 cycles. Cycle 1, Day 1 04/12/2020 Number of Cycles: 12 Goal of Treatment: Curative - Time with Patient Time Spent with Patient (Follow Up Visit): 35 minutes - high complexity visit--electrolyte repletion, holding therapy, referral to pulmonary medicine. Coordination of Care & Counseling Time: Greater than 50% of time spent with patient was for coordination of care (as documented) and [id number] counseling of patient and/or family. Dictated By: Margaret Delgado MD DD/ 0845 Signed By: <Electronically signed by MD Margaret Delgado> 07/13/20 0944 [facility] Work Phone: [phone] Progress note Author Margaret Delgado [facility] July 06, 2020 9:09am Note Date/Time July 06, 2020 8:1 2am [facility] [place] [address] Hem/Onc Follow Up Note - OP Signed Patient: Altagracia Conway MR#: [id number] : 1955 Acct:[id number] Age/Sex: 64 / M Type: REG RCR Copies to: DO Nasim Allen MD Katherine M McGraw, NYLA~ Subjective Date/Time of Service: Date of Service: 07/06/2020 Time of Service: 08:12 Chief Complaint: Patient is here today for 2 week follow up visit for pancreaticcancer and has labs to review. He just got out of hospital for shortness of breath, weak and has not been able to sleep. He has sore that he has had on his tongue for 2 days that is painful HPI: 07/06/2020: Altagracia would have been scheduled for cycle 7-day 1 on Tuesday 07/04, butthis was held when he presented with significant dyspnea on exertion and was sent to the emergency department. CT PE protocol was negative for pulmonary embolism and oxygen saturation was 98% on room air but he had significant tachypnea. He had no associated cough but reported a mouth sore on the left side of his tongue and severe odynophagia (10/10 pain). He has been using topical viscous lidocaine which is not resolved his symptoms. He was admitted and blood culture through his port showed a presumptive coagulase-negative staphthrough the port and no growth from peripheral culture through the wrist. Also had negative nasopharyngeal panel, negative coronavirus, and negative urine culture. He still has significant tachypnea with respiratory rate about 25 and heart rate 116. Saturation is 99% on room air. --We will continue to hold his chemotherapy. I am treating him with 1 L fluid normal saline, 2 mg IV morphine and will repeat every 15 to 20 minutes until pain less than 4 out of 10, and start vancomycin for 2-week course with dosing per pharmacy. This can be given as an outpatient. He does still have significant leukocytosis which could be due to prior Neulasta and received 1 unit of packed red blood cells yesterday for hospital discharge for hemoglobin 7.7. I will reassess him in 1 week to determine if he can resume chemotherapy. I amalso prescribing acyclovir and Diflucan elixirs for his odynophagia. We will put in a palliative medicine consult. 06/20/2020: Altagracia is here for cycle 6-day 1 adjuvant FOLFIRINOX. He has persistent nausea without emesis (added compazine last week), poor appetite, andgeneralized weakness. He lost 4kg in the past 2 weeks. Also notes increased numbness of hands and feet. Potassium (2.7) and Magnesium (1.4) returned low today--hydrating with 1L Normal saline with 40meq KCl IV and 4g MgSO4 IV today. Send home with oral KCl 20meq bid. We will recheck K and Mg Saturday and dose reduce Oxaliplatin by 20% for next cycle. If continued nausea and fatigue--ok to delay therapy one week. Restaging CT without evidence of recurrence 06/15/2020. F/u 1 week if dose delay, 2 weeks if treated Saturday. 05/25/2020: Altagracia is here for cycle 4-day 1 adjuvant FOLFIRINOX. He notes that he has intermittent nausea but is well controlled on his current medications. He notes early satiety and was recently given additional boost to use once daily. He has lost about 4 kg over the last month. 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 Fatigue is stable and hedenies abdominal or back pain. Renal function has proved since starting therapy. He has moderate anemia but does not require transfusion. At this point will continue full dose FOLFIRINOX and restage with CT chest abdomen pelvis prior to cycle 6 as well as CA 19-9. Next follow-up in 1 month with labs. 04/25/2020: Altagracia commenced adjuvant FOLFIRINOX C1D1 on 04/12/2020--tolerated well. Denies fatigue, nausea, constipation/diarrhea, abdominal pain or cold-induced neuropathy. F/u labs unremarkable. He wishes to move infusion to if possible for cycle 2 due to an important business meeting tomorrow (will have to set up [facility] inpatient duckworth eval to d/c 5FU pump Saturday). Otherwise no concerns--f/u with me in one month for tumor markers and exam--continue 100% dose. PREVIOUS HISTORY: This is a 64-year-old male who originally presented to [facility] with nausea, vomiting, diarrhea in October 2019 and was found to have elevated liver enzymes with total bilirubin 12.7, alkaline phosphatase 408, ALT 247, AST 197, lipase 161, white blood cell count of thousand 100, hemoglobin 12.9, platelets 139,000. INR 1.2 and hemoglobin A1c 9.1. MRCP showed extensiveextra and intrahepatic biliary dilatation up to 1.5 cm with a dilated pancreaticduct at 5 mm without discrete mass. ERCP 11/10/[address] Weaver revealed 2 mm stricture in the common bile duct, status post sphincterotomy, brushings, and placement of plastic stent. He was referred for EUS/ERCP on 12/07/[address] Margaret Malcolm with fine-needle biopsy showing atypical cells present, suspicious for carcinoma. At that time the biliary stent was partially occluded and there was a single severe biliary stricture in the lower third of the main bile duct (malignant appearing) status post dilation and brushing also showing atypical ductal cells with another placement of plastic pancreatic stent. His care was further delayed about 1 month when he was unable to be reached by phone to discuss further plan of care. He was seen by gastroenterology at [facility] in late December complaining of increased epigastric pain. He also was noted to have about 20 pounds of weight loss and worsening diabetes. January 10 he had repeat endoscopic ultrasound with a masslike region in the pancreatic head and again brushings showed atypical cells with fine-needle aspiration again with atypical cells suspicious for cancer. CT abdomen pelvis at [facility] 01/22/2020 revealed no distant metastatic disease. IMPRESSION: 1. Pancreatic head mass measuring 2.6 x 2.2 x 3.0 cm, with 180 degree abutment and contour abnormality of the patent SMV, with increasing pancreatic ductal dilatation, highly concerning for pancreatic adenocarcinoma. The superior mesenteric artery and celiac artery are not involved. Malignant involvement of a 9 mm peripancreatic lymph node is not excluded. 2. Status post common bile duct stent placement. Air within the stent, left greater than right pneumobilia, and air within the gallbladder all suggest stent patency. 3. Enlarged prostate. Please correlate with PSA. Due to nondiagnostic biopsies and resectable disease, he consented to upfront Whipple procedure (pancreatoduodenectomy) performed 02/15/2020. He tolerated surgery well and has returned to eating a normal diet. Diabetes is well controlled on his current regimen with insulin managed by Dr. Tiki Dockery at [facility]. 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 She does have some peripheral neuropathy from diabetes but this does not limit his activity. Given high risk features of perineural and lymphovascular invasion as well as anaplastic poorly differentiated histology, we discussed FOLFIRINOX adjuvant therapy which may commence after placement of infusion port in the next 1 to 2 weeks. Today we reviewed chemotherapy counseling for FOLFIRINOX (5-fluorouracil, leucovorin, irinotecan, oxaliplatin every 2 weeks for 12 cycles). Goal of therapy is curative. Common toxicities were reviewed to include myelosuppression, fatigue, nausea, vomiting, constipation, diarrhea, mouth sores, and alopecia. Other toxicities may include pneumonitis, cold-induced neuropathy, cumulative neuropathy, secondary malignancies, hepatic and renal toxicities. The patient signed informed consent and will follow-up as directed. Of note he does have a history of chronic hepatitis C status post treatment withEpclusa with complete response. He reports that his mother had pancreatic cancer and in her 60s as well as a father with pancreatic cancer who at age 82. Brother had lung cancer but no other family history of malignancies. He is an active smoker 1/2 pack/day since age 14 and continues actively smoking. He denies alcohol use quitting about 7 years ago when he was diagnosedwith hepatitis C. 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 DIAGNOSIS: 1. 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 2. Diabetes mellitus, insulin requiring with mild peripheral neuropathy 3. History of hepatitis C status post curative Epclusa therapy around 2013. 4. Family history of mother and father with pancreatic cancer 5. History of anxiety disorder and depression 6. Ongoing tobacco use 7. Unintentional weight loss - Summary of Therapies Summary of Therapies: 1. Whipple's procedure/pancreaticoduodenectomy 02/15/2020. 2. FOLFIRINOX therapy commenced 04/12/2020. FOLFIRINOX: Day 1: Oxaliplatin 85mg/m2 IV over 2 hours; Irinotecan 180mg/m2 IVover 90 minutes; Leucovorin 400mg/m2 IV over 90 minutes; followed by Day 1: Fluorouracil 400mg/m2 IV push; followed by Days 1-2 Fluorouracil 2,400 mg/m2 IV continuous infusion over 46 hours. Repeat cycle every 2 weeks x 12 cycles. --cycle 6 06/22/2020--Will dose reduce oxaliplatin 20% for grade 3 nausea/grade 2neuropathy/renal insufficiency --Cycle 7 07/04/2020--on hold for intractable dyspnea and oral mucositis ROS Details: All systems reviewed & no additional complaints except as documented Subjective/ROS - Narrative: CONSTITUTIONAL: Positive for moderate fatigue (decreased ADL--PS 2), negative for fever or night sweats. Significant anxiety and psychological distress due to oral pain and ongoing aphasia, has not eaten in 3 days. HEAD AND NECK: Negative for changes in hearing and vision. Positive for left lateral tongue for mouth ulcer. Negative for change in voice, nasal congestion and nasal drainage. + altered taste. Positive for odynophagia as per HPI. PULMONARY: Negative for chest pain, cough and positive for marked dyspnea (? Due to pain, anxiety, or bacteremia). No pneumonia or PE on chest CT CARDIOVASCULAR: Negative for claudication and irregular heartbeat/palpitations. GASTROINTESTINAL: Negative for abdominal pain (well healed postop Whipple procedure). Positive for early satiety with decreased appetite and 4 kg weight loss over the last 2 weeks. Stable nausea without vomiting or constipation. Positive for intermittent diarrhea, not consistently using Imodium. GENITOURINARY: Negative for dysuria and hematuria. ENDOCRINE: Negative for cold intolerance and heat intolerance. Diabetes mellitus about 10 years, worsening control prior to pancreas cancer diagnosis. Now insulin dependent. CENTRAL NERVOUS SYSTEM: Negative for gait disturbance and headache. + peripheral neuropathy now more persistent aftereffects cycle (hands and feet)--stable with 20% dose reduction oxaliplatin. PSYCHIATRIC: Positive for increased anxiety regarding symptoms without depression. DERMATOLOGICAL: Negative for pruritus and rash. Negative for suspicious skin lesions. MUSCULOSKELETAL: Negative for back pain and bone/joint symptoms. HEMATOLOGICAL: Negative for bleeding and easy bruising. Positive for 1 unit redblood cell transfusion yesterday. Negative for history of thromboembolic disease ALLERGY: Negative for environmental allergies and food allergies. PMFSH - History Attestation statement: The following information was validated with the patient. Source: Old Records Reviewed - Medical History Medical History: Medical History (Last Reviewed 07/06/20 @ 08:13 by Margaret Delgado MD) Amputated toe of right foot Anxiety Blockage of a bile duct liver stents placed d/t blockage Depression Diabetes mellitus History of hepatitis C Hyperlipemia Hypertension Neuropathy Pancreatic cancer - Surgical History Surgical History: Surgical History (Last Reviewed 07/06/20 @ 08:13 by Margaret Delgado MD) History of cholecystectomy done at time of whipple History of gastrointestinal surgery whipple procedure 02/2020 - Family History Family History: Family History (Last Reviewed 07/06/20 @ 08:12 by Margaret Delgado MD) Father Pancreatic cancer Mother Pancreatic cancer - Social History Smoking Status: Current every day smoker Tobacco Type: cigarettes Substance Use Type: None Substance Abuse Comment: states I smoke marijuana every now and then enc not to am of surgery Home Medications & Allergies Allergies No Known Allergies Allergy (Verified 07/06/20 08:07) Home Medications zolpidem 5 mg PO HS PRN 07/04/20 [History Confirmed 07/06/20] lidocaine HCl [Lidocaine Viscous] 15 ml MUCOUS MEMBRANE Q6H PRN 30 Days ml 07/05/20 [Rx Confirmed 07/06/20] prochlorperazine maleate 10 mg PO Q6HR 07/05/20 [History Confirmed 07/06/20] acyclovir 400 mg PO BID 14 Days #300 ml 07/06/20 [Rx] fluconazole 100 mg PO DAILY 14 Days #140 ml 07/06/20 [Rx] Objective - Height/Weight Height/Weight: Height 6 ft 2 in Weight 75.75 kg BSA for Today's Weight 2.03 - Vital Signs Vital Signs: 07/06/20 08:07 Temperature 97.7 F Pulse Rate [Left Brachial] 96 H Respiratory Rate 20 Blood Pressure [Left Arm] 173/88 H 02 Sat by Pulse Oximetry 99 - Pain Tongue Pain Intensity: 10 - Emotional Needs Assessment Emotional Needs Assessment: Emotional Needs Identified? No Physical Exam Narrative: CONSTITUTIONAL: The patient is in moderate psychological distress due to dyspneaand pain but no respiratory distress. He appears more fatigued and mildly cachectic. HEAD / FACE: Normocephalic. EYES: Pupils are equal and reactive to light. Conjunctivae and lids are benign in appearance. Ocular movement intact. EARS: Hearing grossly intact. NOSE / MOUTH / THROAT: Nose, mouth, tongue and oropharynx--dry mucous membranes with left lateral tongue 1 cm apthous ulcer. No visible thrush but will treat both thrush and viral esophagitis due to his severe odynophagia. No signs of inflammation. NECK / THYROID: Neck is supple. Thyroid is symmetrical, without thyromegaly, masses or palpable nodules. LYMPHATIC: No palpable cervical, supraclavicular, axillary, or inguinal adenopathy. RESPIRATORY: Normal to inspection. Lungs clear to auscultation and percussion. No wheezing, rales, rhonchi or rubs. Tachypnea without significant increased work of breathing (no intercostal retractions). CARDIOVASCULAR: Regular rate and rhythm. No murmurs, gallops, or rubs. VASCULAR: Carotid, radial, femoral and pedal pulses present bilaterally. No bruits. ABDOMEN: Bowel sounds normoactive. Soft, mild epigastric tenderness and non-distended. No hepatosplenomegaly. No masses. Well healed incisions from Whippleprocedure. GENITOURINARY: No CVA tenderness. No suprapubic fullness or tenderness. No groinadenopathy. No evidence of hernias. INTEGUMENTARY: The skin is unremarkable. No rashes. No suspicious lesions BACK / SPINE: The back is nontender. No stepoff deformity. MUSCULOSKELETAL: Normal musculature, no joint deformities or abnormalities, normal range of motion for all four extremities. EXTREMITIES: No edema, cyanosis or clubbing. No Kyle sign. NEUROLOGICAL: Alert and oriented. Cranial nerves intact. No gross motor or sensory deficits. PSYCHIATRIC: Very anxious and tearful during the visit today, no SI/HI. - ECOG Performance Status ECOG Score: 2 - Worsening fatigue, dysphagia, poor oral intake Results - Labs Labs: Diagram of Most Recent CBC and CMP 07/04/20 14:20 07/04/20 14:20 Labs - Last 7 Days 07/04/20 14:20: PHA Creatinine Clear 69.05, Sodium 134 L, Potassium 3.8, Chloride 104, Carbon Dioxide 14.5 L, BUN 18, Creatinine 1.21, Est GFR ( Amer) > 60, Est GFR (Non-Af Amer) 60, Glucose 260 H, Calcium 9.2, Magnesium 1.5 L, Total Bilirubin 0.5, AST 34, ALT 22, Alkaline Phosphatase 196 H, Total Protein 6.7, Albumin 3.5, Globulin 3.2, Albumin/Globulin Ratio 1.1 07/04/20 14:20: Corrected WBC 29.2 H, Uncorrected WBC Count 29.2 H, RBC 2.71 L, Hgb 9.2 L, Hct 26.7 L, MCV 98.7, MCH 34.0, MCHC 34.4, RDW 20.4 H, Plt Count 180,MPV 9.1, Neut % (Auto) 90.4, Lymph % (Auto) 6.5, Alfalfa % (Auto) 2.6, Eos % (Auto)0.2, Baso % (Auto) 0.3, Neut # (Auto) 26.4 H, Lymph # (Auto) 1.9, Alfalfa # (Auto) 0.8, Eos # (Auto) 0.1, Baso # (Auto) 0.1, Nucleated RBC % (auto) 0.0, Dohle Bodies Slight, Platelet Estimate Normal, Plt Morphology Comment Normal, RBC Morphology N/A, Poikilocytosis Slight, Anisocytosis Marked, Macrocytosis Slight,Tear Drop Cells Rare - Impressions Date of Service: 07/04/20 CT/CT angio chest PE protocol: dyspnea, pancreatic CAhx Copies to: Dario Bianchi, DO~ CT ANGIOGRAM OF THE CHEST, PULMONARY EMBOLISM PROTOCOL: CLINICAL INFORMATION: Shortness of breath, sent from the infusion center. History of pancreatic cancer. COMPARISON: 06/15/2020 TECHNIQUE: Following intravenous injection of 54 mL of Isovue-[address] scans of the chest were obtained using pulmonary embolism protocol. Coronal andsagittal reconstructed images, as well as volume rendered CT pulmonary angiographic images were also submitted. FINDINGS: Lungs: There is no pneumothorax. No pulmonary embolism is noted. There is no acute focal infiltrate or lung nodule. Mild chronic lung changes are demonstrated. No generalized pulmonary fibrosis or bronchiectasis is noted. There is no pleural effusion. Mediastinum and vidhya: There is no evidence of dissection of the thoracic aorta which shows no significant focal dilatation. Mild calcified plaque is shown at the aortic arch. There is no prominent mediastinal or hilar lymphadenopathy. Coronary arterial calcification is noted. There is no pericardial effusion. A right internal jugular [id number] is demonstrated. Axilla: There is no significant axillary lymphadenopathy bilaterally. Bony thorax: There is no compression fracture or localized bony destruction to the thoracic spine which shows a mild to moderate anterior osteophytosis. Bilateral ribs are intact. Upper abdomen: The upper abdomen shows mild fullness to the left adrenal gland, similar to the prior study. Mild pneumobilia is shown. CT/CT angio chest PE protocol IMPRESSION: NO PULMONARY EMBOLISM OR AORTIC DISSECTION. MILD CHRONIC LUNG CHANGES. The CT exam was performed using one or more of the following dose reduction techniques: Automated exposure control, adjustment of the MA and/or Kv accordingto patient size, or use of the iterative reconstruction technique. Impression dictated by: Casey Casillas M.D.07/04/2020 5:19 PM Assessment and Plan - TNM Staging Staging: Upfront resection of pancreatic Undifferentiated carcinoma anaplastic type. 0/39LNs. pT2 N0. (1) Primary cancer of head of pancreas Upfront Whipple procedure for resectable pancreas cancer (initial biopsies suspicious but nondiagnostic for malignancy). 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 Poor risk features and good performance status (although mild baseline diabetic neuropathy). He consented to FOLFIRINOXadjuvant therapy. General surgery referral for infusion port placement. 04/25/2020: No significant toxicities at followup visit (cycle 1 day 1 was 04/12/2020). We will continue 100% dose FOLFIRINOX and follow closely for hyperglycemia and neuropathy symptoms due to his baseline diabetic neuropathy. 05/25/2020: Patient has increased fatigue, early satiety, and weight loss. Adding Boost at least twice daily and encouraging use of Imodium and Zofran regularly. Okay for cycle 4 today with stable labs. Restaging CT chest abdomenpelvis will be scheduled prior to cycle 6 in 1 month I will see him at that time. 06/20/2020: Worsening fatigue, nausea, poor appetite, and weight loss. Worsening neuropathy. Decrease oxaliplatin by 20%, replete low potassium and magnesium. No evidence of recurrence on CT CAP. Reassess Saturday whether K and Mg returned today normal and OK to resume FOLFIRINOX. F/u 1 week if dose delay, 2 weeks if tx. 07/06/2020: Admitted 07/04/2020 for work-up of sudden onset tachypnea with normal oxygen saturation. CT PE protocol was negative for pulmonary embolism or infiltrate. Lactic acid was negative for sepsis and VBG showed respiratory alkalosis with metabolic acidosis. Blood cultures did show coagulase negative staph from infusion port but negative on peripheral culture. He has severe odynophagia and mouth sore. For now I am hydrating him with 1 L normal saline, holding chemotherapy until resolution of toxicities. We will start vancomycin 1.5 g daily (would calculate to 1 g twice daily but patient does not wish to return twice daily for infusions). We will reassess Saturday to see if he should continue 2 weeks of vancomycin. Also giving IV morphine 2 mg now and redose every 15 to 20 minutes until pain less than 4/10. Adding Diflucan elixir and acyclovir elixir for his odynophagia. Consult to palliative medicine for further titration of outpatient pain medication. Follow-up in 1 week to review symptoms and to determine if he is stable to resume adjuvant FOLFIRINOX therapy with likely 50% dose reduction of 5-FU leucovorin. All questions answered over this 45 min face to face visit for review of hospital stay, palliation of symptoms, electrolyte repletion, and toxicity review on FOLFIRINOX chemotherapy. (2) Odynophagia Patient is very anxious and tachypneic and has a large left tongue ulceration. He notes that he has not eaten in 3 days due to severe odynophagia. Viscous Lidocaine does not relieve symptoms. I am treating him with Diflucan, acyclovir, and will titrate pain medication until resolution of symptoms. His chemotherapy is on hold as noted above. (3) Tachypnea, not elsewhere classified Negative evaluation for PE, may be equivalent to his coag negative staph infection or may be due to anxiety from his increasing symptoms. Now he is not hypoxic and we will reevaluate his pain control and treatment of coag negative staph with vancomycin. Next follow-up in 1 week. (4) Peripheral neuropathy due to chemotherapy Dose reduction Oxaliplatin 20% cycle 6 FOLFIRINOX--had some stabilization of neuropathy but now odynophagia as noted above. (5) Diabetes mellitus with neuropathy Qualifiers: Diabetes mellitus type: type 2 Diabetes mellitus halfway insulin use: unspecified emt intermediate insulin use status Qualified Code(s): E11.40 - Type 2 diabetes mellitus with diabetic neuropathy, unspecified Followed by Dr. Dockery--improving control since surgery and recent adjustment of insulin. Followup blood sugars closely while on chemotherapy. (6) Anemia complicating neoplastic disease Hemoglobin was 7.7 yesterday and due to his tachypnea and distress he was transfused 1 unit of packed red blood cells. We will follow closely during FOLFIRINOXchemotherapy--next CBC in 1 week. (7) Cancer cachexia Patient lost about 4kg in the prior month--another 4kg over 2 weeks. Recently started adding boost supplementation. No obstruction on restaging CT but persistent nausea without emesis. Dose reduced oxaliplatin for cycle 6, replaceelectrolytes, now delaying therapy for odynophagia. We will follow closely withfuture exams. (8) Encounter for chemotherapy management Tolerated first 3 cycles well reasonably well. Now has weight loss, early satiety, and increasing fatigue. 20% dose reduction oxaliplatin cycle 6--now atleast 1 to 2-week delay of FOLFIRINOX for odynophagia as noted above for cycle 7. - Chemo Plan Chemo Plan (Dose, Rate, Freq): FOLFIRINOX on hold for odynophagia cycle 7. 20% dose reduction oxaliplatin cycle 6 FOLFIRINOX. FOLFIRINOX: Day 1: Oxaliplatin 85mg/m2 IV over 2 hours; Irinotecan 180mg/m2 IVover 90 minutes; Leucovorin 400mg/m2 IV over 90 minutes; followed by Day 1: Fluorouracil 400mg/m2 IV push; followed by Days 1-2 Fluorouracil 2,400 mg/m2 IV continuous infusion over 46 hours. Repeat cycle every 2 weeks x 12 cycles. Cycle 1, Day 1 04/12/2020 Number of Cycles: 12 Goal of Treatment: Curative - Time with Patient Time Spent with Patient (Follow Up Visit): 45 minutes or more - high complexity visit--electrolyte repletion, dose reduction, review restaging scans. Coordination of Care & Counseling Time: Greater than 50% of time spent with patient was for coordination of care (as documented) and [id number] counseling of patient and/or family. Dictated By: Margaret Delgado MD DD/ 1 Signed By: <Electronically signed by MD Margaret Delgado> 07/06/20 [address] [facility] Work Phone: [phone] Progress note Author Margaret Delgado [facility] June 20, 2020 8:14pm Note Date/Time June 20, 2020 11: 47am [facility] at [address] [address] Hem/Onc Follow Up Note - OP Signed Patient: Altagracia Conway MR#: [id number] : 1955 Acct:[id number] Age/Sex: 64 / M Type: REG RCR Copies to: DO Nasim Allen MD~ Subjective Date/Time of Service: Date of Service: 06/20/2020 Time of Service: 11:46 Chief Complaint: Patient is here today for 4 week follow up visit for pancreaticcancer. He is here to review labs and CT scans. He has not been feeling well, he is weak, has shortness of breath, has nausea, not sleeping well and decreasedappetite. HPI: 06/20/2020: Altagracia is here for cycle 6-day 1 adjuvant FOLFIRINOX. He has persistent nausea without emesis (added compazine last week), poor appetite, andgeneralized weakness. He lost 4kg in the past 2 weeks. Also notes increased numbness of hands and feet. Potassium (2.7) and Magnesium (1.4) returned low today--hydrating with 1L Normal saline with 40meq KCl IV and 4g MgSO4 IV today. Send home with oral KCl 20meq bid. We will recheck K and Mg Saturday and dose reduce Oxaliplatin by 20% for next cycle. If continued nausea and fatigue--ok to delay therapy one week. Restaging CT without evidence of recurrence 06/15/2020. F/u 1 week if dose delay, 2 weeks if treated Saturday. 05/25/2020: Altagracia is here for cycle 4-day 1 adjuvant FOLFIRINOX. He notes that he has intermittent nausea but is well controlled on his current medications. He notes early satiety and was recently given additional boost to use once daily. He has lost about 4 kg over the last month. 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 Fatigue is stable and hedenies abdominal or back pain. Renal function has proved since starting therapy. He has moderate anemia but does not require transfusion. At this point will continue full dose FOLFIRINOX and restage with CT chest abdomen pelvis prior to cycle 6 as well as CA 19-9. Next follow-up in 1 month with labs. 04/25/2020: Altagracia commenced adjuvant FOLFIRINOX C1D1 on 04/12/2020--tolerated well. Denies fatigue, nausea, constipation/diarrhea, abdominal pain or cold-induced neuropathy. F/u labs unremarkable. He wishes to move infusion to if possible for cycle 2 due to an important business meeting tomorrow (will have to set up [facility] inpatient duckworth eval to d/c 5FU pump Saturday). Otherwise no concerns--f/u with me in one month for tumor markers and exam--continue 100% dose. PREVIOUS HISTORY: This is a 64-year-old male who originally presented to [facility] with nausea, vomiting, diarrhea in October 2019 and was found to have elevated liver enzymes with total bilirubin 12.7, alkaline phosphatase 408, ALT 247, AST 197, lipase 161, white blood cell count of thousand 100, hemoglobin 12.9, platelets 139,000. INR 1.2 and hemoglobin A1c 9.1. MRCP showed extensiveextra and intrahepatic biliary dilatation up to 1.5 cm with a dilated pancreaticduct at 5 mm without discrete mass. ERCP 11/10/[address] Weaver revealed 2 mm stricture in the common bile duct, status post sphincterotomy, brushings, and placement of plastic stent. He was referred for EUS/ERCP on 12/07/[address] Margaret Malcolm with fine-needle biopsy showing atypical cells present, suspicious for carcinoma. At that time the biliary stent was partially occluded and there was a single severe biliary stricture in the lower third of the main bile duct (malignant appearing) status post dilation and brushing also showing atypical ductal cells with another placement of plastic pancreatic stent. His care was further delayed about 1 month when he was unable to be reached by phone to discuss further plan of care. He was seen by gastroenterology at [facility] in late December complaining of increased epigastric pain. He also was noted to have about 20 pounds of weight loss and worsening diabetes. January 10 he had repeat endoscopic ultrasound with a masslike region in the pancreatic head and again brushings showed atypical cells with fine-needle aspiration again with atypical cells suspicious for cancer. CT abdomen pelvis at [facility] 01/22/2020 revealed no distant metastatic disease. IMPRESSION: 1. Pancreatic head mass measuring 2.6 x 2.2 x 3.0 cm, with 180 degree abutment and contour abnormality of the patent SMV, with increasing pancreatic ductal dilatation, highly concerning for pancreatic adenocarcinoma. The superior mesenteric artery and celiac artery are not involved. Malignant involvement of a 9 mm peripancreatic lymph node is not excluded. 2. Status post common bile duct stent placement. Air within the stent, left greater than right pneumobilia, and air within the gallbladder all suggest stent patency. 3. Enlarged prostate. Please correlate with PSA. Due to nondiagnostic biopsies and resectable disease, he consented to upfront Whipple procedure (pancreatoduodenectomy) performed 02/15/2020. He tolerated surgery well and has returned to eating a normal diet. Diabetes is well controlled on his current regimen with insulin managed by Dr. Tiki Dockery at [facility]. 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 She does have some peripheral neuropathy from diabetes but this does not limit his activity. Given high risk features of perineural and lymphovascular invasion as well as anaplastic poorly differentiated histology, we discussed FOLFIRINOX adjuvant therapy which may commence after placement of infusion port in the next 1 to 2 weeks. Today we reviewed chemotherapy counseling for FOLFIRINOX (5-fluorouracil, leucovorin, irinotecan, oxaliplatin every 2 weeks for 12 cycles). Goal of therapy is curative. Common toxicities were reviewed to include myelosuppression, fatigue, nausea, vomiting, constipation, diarrhea, mouth sores, and alopecia. Other toxicities may include pneumonitis, cold-induced neuropathy, cumulative neuropathy, secondary malignancies, hepatic and renal toxicities. The patient signed informed consent and will follow-up as directed. Of note he does have a history of chronic hepatitis C status post treatment withEpclusa with complete response. He reports that his mother had pancreatic cancer and in her 60s as well as a father with pancreatic cancer who at age 82. Brother had lung cancer but no other family history of malignancies. He is an active smoker 1/2 pack/day since age 14 and continues actively smoking. He denies alcohol use quitting about 7 years ago when he was diagnosedwith hepatitis C. 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 DIAGNOSIS: 1. 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 2. Diabetes mellitus, insulin requiring with mild peripheral neuropathy 3. History of hepatitis C status post curative Epclusa therapy around 2013. 4. Family history of mother and father with pancreatic cancer 5. History of anxiety disorder and depression 6. Ongoing tobacco use 7. Unintentional weight loss - Summary of Therapies Summary of Therapies: 1. Whipple's procedure/pancreaticoduodenectomy 02/15/2020. 2. FOLFIRINOX therapy commenced 04/12/2020. FOLFIRINOX: Day 1: Oxaliplatin 85mg/m2 IV over 2 hours; Irinotecan 180mg/m2 IVover 90 minutes; Leucovorin 400mg/m2 IV over 90 minutes; followed by Day 1: Fluorouracil 400mg/m2 IV push; followed by Days 1-2 Fluorouracil 2,400 mg/m2 IV continuous infusion over 46 hours. Repeat cycle every 2 weeks x 12 cycles. --cycle 6 06/22/2020--Will dose reduce oxaliplatin 20% for grade 3 nausea/grade 2neuropathy/renal insufficiency ROS Details: All systems reviewed & no additional complaints except as documented Subjective/ROS - Narrative: CONSTITUTIONAL: Positive for moderate fatigue (decreased ADL--PS 2), negative for fever or night sweats. HEAD AND NECK: Negative for changes in hearing and vision. Negative for mouth ulcers, nasal congestion and nasal drainage. + altered taste. PULMONARY: Negative for chest pain, cough and dyspnea. CARDIOVASCULAR: Negative for claudication and irregular heartbeat/palpitations. GASTROINTESTINAL: Negative for abdominal pain (well healed postop Whipple procedure). Positive for early satiety with decreased appetite and 4 kg weight loss over the last 2 weeks. Positive for worsening nausea without vomiting or constipation. Positive for intermittent diarrhea, not consistently using Imodium. GENITOURINARY: Negative for dysuria and hematuria. ENDOCRINE: Negative for cold intolerance and heat intolerance. Diabetes mellitus about 10 years, worsening control prior to pancreas cancer diagnosis. Now insulin dependent. CENTRAL NERVOUS SYSTEM: Negative for gait disturbance and headache. + peripheral neuropathy now more persistent past cycle (hands and feet). PSYCHIATRIC: Negative for anxiety or depression. DERMATOLOGICAL: Negative for pruritus and rash. Negative for suspicious skin lesions. MUSCULOSKELETAL: Negative for back pain and bone/joint symptoms. HEMATOLOGICAL: Negative for bleeding and easy bruising. Negative for history of transfusion or thromboembolic disease ALLERGY: Negative for environmental allergies and food allergies. [facility] - History Attestation statement: The following information was validated with the patient. Source: Old Records Reviewed - Medical History Medical History: Medical History (Last Reviewed 06/20/20 @ 19:42 by Margaret Delgado MD) Amputated toe of right foot Anxiety Blockage of a bile duct liver stents placed d/t blockage Depression Diabetes mellitus History of hepatitis C Hyperlipemia Hypertension Neuropathy Pancreatic cancer - Surgical History Surgical History: Surgical History (Last Reviewed 06/20/20 @ 19:42 by Margaret Delgado MD) History of cholecystectomy done at time of whipple History of gastrointestinal surgery whipple procedure 02/2020 - Family History Family History: Family History (Last Reviewed 06/20/20 @ 19:42 by Margaret Delgado MD) Father Pancreatic cancer Mother Pancreatic cancer - Social History Smoking Status: Current every day smoker Tobacco Type: cigarettes Substance Use Type: None Substance Abuse Comment: states I smoke marijuana every now and then enc not to am of surgery Home Medications & Allergies Allergies No Known Allergies Allergy (Verified 06/20/20 11:34) Home Medications Tresiba U-100 Insulin 7 unit SUBCUT QAM 03/17/20 [History Confirmed 06/20/20] amlodipine 5 mg PO QAM 03/17/20 [History Confirmed 06/20/20] insulin lispro [Humalog KwikPen Insulin] 100 unit SUBCUT PROTOCOL 03/17/20 [History Confirmed 06/20/20] metformin 1,000 mg PO BID 03/17/20 [History Confirmed 06/20/20] ondansetron HCl 8 mg PO Q8H PRN #30 tab 03/24/20 [Rx Confirmed 06/20/20] aripiprazole [Abilify] 15 mg PO QAM 04/04/20 [History Confirmed 06/20/20] atorvastatin [Lipitor] 20 mg PO QAM 04/04/20 [History Confirmed 06/20/20] duloxetine [Cymbalta] 60 mg PO QAM 04/04/20 [History Confirmed 06/20/20] lorazepam [Ativan] 3 mg PO QHS 04/04/20 [History Confirmed 06/20/20] losartan-hydrochlorothiazide [Hyzaar] 1 tab PO QAM 04/04/20 [History Confirmed 06/20/20] tramadol 50 mg PO Q6H PRN 04/04/20 [History Confirmed 06/20/20] prochlorperazine maleate [Compazine] 10 mg PO Q6H PRN #30 tab 06/15/20 [Rx Confirmed 06/20/20] potassium chloride 20 meq PO BID 14 Days #56 tab 06/20/20 [Rx] Objective - Height/Weight Height/Weight: Height 6 ft 2 in Weight 73.028 kg BSA for Today's Weight 2.01 - Vital Signs Vital Signs: 06/20/20 11:35 Temperature 97.6 F Pulse Rate [Left Brachial] 113 H Respiratory Rate 20 Blood Pressure [Left Arm] 105/63 02 Sat by Pulse Oximetry 97 - Emotional Needs Assessment Emotional Needs Assessment: Emotional Needs Identified? No Physical Exam Narrative: CONSTITUTIONAL: The patient is in no acute distress, but appears more fatigued and mildly cachectic. HEAD / FACE: Normocephalic. EYES: Pupils are equal and reactive to light. Conjunctivae and lids are benign in appearance. Ocular movement intact. EARS: Hearing grossly intact. NOSE / MOUTH / THROAT: Nose, mouth, tongue and oropharynx--dry mucous membranes without ulcers. No signs of inflammation. NECK / THYROID: Neck is supple. Thyroid is symmetrical, without thyromegaly, masses or palpable nodules. LYMPHATIC: No palpable cervical, supraclavicular, axillary, or inguinal adenopathy. RESPIRATORY: Normal to inspection. Lungs clear to auscultation and percussion. No wheezing, rales, rhonchi or rubs. Normal effort. CARDIOVASCULAR: Regular rate and rhythm. No murmurs, gallops, or rubs. VASCULAR: Carotid, radial, femoral and pedal pulses present bilaterally. No bruits. ABDOMEN: Bowel sounds normoactive. Soft, mild epigastric tenderness and non-distended. No hepatosplenomegaly. No masses. Well healed incisions from Whippleprocedure. GENITOURINARY: No CVA tenderness. No suprapubic fullness or tenderness. No groinadenopathy. No evidence of hernias. INTEGUMENTARY: The skin is unremarkable. No rashes. No suspicious lesions BACK / SPINE: The back is nontender. No stepoff deformity. MUSCULOSKELETAL: Normal musculature, no joint deformities or abnormalities, normal range of motion for all four extremities. EXTREMITIES: No edema, cyanosis or clubbing. No Kyle sign. NEUROLOGICAL: Alert and oriented. Cranial nerves intact. No gross motor or sensory deficits. PSYCHIATRIC: No anxiety or evidence of depression. - ECOG Performance Status ECOG Score: 2 Results - Labs Labs: Diagram of Most Recent CBC and CMP 06/20/20 10:40 06/20/20 10:40 Labs - Last 7 Days 06/20/20 10:40: PHA Creatinine Clear 58.45, Sodium 132 L, Potassium 2.7 L*, Chloride 100, Carbon Dioxide 18.1 L, BUN 24 H, Creatinine 1.40 H, Est GFR ( Amer) > 60, Est GFR (Non-Af Amer) 51, Glucose 248 H, Calcium 9.3, TotalBilirubin 0.7, AST 37, ALT 32, Alkaline Phosphatase 180 H, Total Protein 6.9, Albumin 3.5, Globulin 3.4, Albumin/Globulin Ratio 1.0 06/20/20 10:40: Corrected WBC 18.7 H, Uncorrected WBC Count 18.7 H, RBC 3.17 L, Hgb 10.2 L, Hct 29.3 L, MCV 92.4, MCH 32.1, MCHC 34.7, RDW 20.7 H, Plt Count 204, MPV 8.4, Nucleated RBC % (auto) 0.2 06/15/20 09:13: CA 19-9 Antigen 26 - Impressions CT chest and CT abdomen and pelvis 06/15/2020. CLINICAL DATA: Pancreatic cancer. TECHNIQUE: CT of the chest was performed with intravenous contrast. CT of the abdomen and pelvis was performed with intravenous and oral contrast. Axial, sagittal, and coronal reconstructions were created and reviewed. These CT exams were performed using one or more of the following dose reduction techniques: Automated exposure control, adjustment of the mA and/or kV according to patient size, or use of iterative reconstruction technique. COMPARISON: CT abdomen and pelvis 11/09/2019 ([facility]). CHEST FINDINGS: There is an [id number]-[id number] on the right with an internal jugular vein catheter terminating in the SVC. The heart is normal in size. Atherosclerotic changes are noted including coronary calcification. There is no mediastinal or hilar lymphadenopathy. There is no hiatal hernia. The central airways appear unremarkable. No pulmonary consolidation or collapse is identified. No pleural effusion is seen. The thoracic spine demonstrates mild degenerative changes. No chest wall abnormality is noted. ABDOMEN AND PELVIS FINDINGS: The gallbladder is surgically absent. There is pneumobilia. The liver appears otherwise unremarkable. The spleen, right and left kidneys, and right adrenal gland appear unremarkable. The left adrenal is mildly enlarged. There are postsurgical changes and indeterminate nodular soft tissue densities measuring up to 3.4 x 1.6 cm in the peripancreatic region. The urinary bladder appears unremarkable. The prostate is enlarged. The proximal anddistal colon are distended and contain large amounts of stool. No free intra-abdominal air or ascites is identified. The lumbar spine demonstrates degenerative changes. No abdominal wall abnormality is seen. CT/CT chest w con IMPRESSION: 1. Pneumobilia. 2. Mildly enlarged left adrenal gland. 3. Postsurgical changes and indeterminate nodular soft tissue densities in the peripancreatic region. Follow-up imaging is suggested. 4. Enlarged prostate. 5. Distended proximal and distal colon containing large amounts of stool. Impression dictated by: Farooq Martin Jr., M.D.06/15/2020 1:18 PM Assessment and Plan - TNM Staging Staging: Upfront resection of pancreatic Undifferentiated carcinoma anaplastic type. 0/39LNs. pT2 N0. (1) Primary cancer of head of pancreas Upfront Whipple procedure for resectable pancreas cancer (initial biopsies suspicious but nondiagnostic for malignancy). 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 Poor risk features and good performance status (although mild baseline diabetic neuropathy). He consented to FOLFIRINOXadjuvant therapy. General surgery referral for infusion port placement. 04/25/2020: No significant toxicities at followup visit (cycle 1 day 1 was 04/12/2020). We will continue 100% dose FOLFIRINOX and follow closely for hyperglycemia and neuropathy symptoms due to his baseline diabetic neuropathy. 05/25/2020: Patient has increased fatigue, early satiety, and weight loss. Adding Boost at least twice daily and encouraging use of Imodium and Zofran regularly. Okay for cycle 4 today with stable labs. Restaging CT chest abdomenpelvis will be scheduled prior to cycle 6 in 1 month I will see him at that time. 06/20/2020: Worsening fatigue, nausea, poor appetite, and weight loss. Worsening neuropathy. Decrease oxaliplatin by 20%, replete low potassium and magnesium. No evidence of recurrence on CT CAP. Reassess Saturday whether K and Mg returned today normal and OK to resume FOLFIRINOX. F/u 1 week if dose delay, 2 weeks if tx. All questions answered over this 45 min face to face visit for restaging scans, electrolyte repletion, and toxicity review on FOLFIRINOX chemotherapy. (2) Peripheral neuropathy due to chemotherapy Dose reduction Oxaliplatin 20% next cycle FOLFIRINOX--consider dose delay if persistent symptoms. (3) Hypokalemia due to excessive renal loss of potassium (4) Hypomagnesemia (5) Diabetes mellitus with neuropathy Qualifiers: Diabetes mellitus type: type 2 Diabetes mellitus halfway insulin use: unspecified halfway insulin use status Qualified Code(s): E11.40 - Type 2 diabetes mellitus with diabetic neuropathy, unspecified Followed by Dr. Dockery--improving control since surgery. Followup blood sugars closely while on chemotherapy--blood sugars in 300s (nonfasting) on labs yesterday. I will have infusion nurses check a fasting glucose fingerstick prior to therapy today, and will have him have follow-up with Dr. Dockery for adjustment of insulin regimen. (6) Anemia complicating neoplastic disease Hemoglobin is stable at 10.2, no indication for transfusion at this time. We will follow closely during FOLFIRINOX chemotherapy. (7) Cancer cachexia Patient lost about 4kg in the prior month--another 4kg over the past 2 weeks. Recently started adding boost supplementation. No obstruction on restaging CT but persistent nausea without emesis. Dose reduce oxaliplatin, replace electrolytes, dose reduce oxaliplatin/possibly delay one week. We will follow closely with future exams. (8) Encounter for chemotherapy management Tolerating first 3 cycles well reasonably well. Now has weight loss, early satiety, and increasing fatigue. 20% dose reduction oxaliplatin--possible 1 week delay of FOLFIRINOX. - Chemo Plan Chemo Plan (Dose, Rate, Freq): 20% dose reduction oxaliplatin cycle 6 FOLFIRINOX--may delay one week if needed. FOLFIRINOX: Day 1: Oxaliplatin 85mg/m2 IV over 2 hours; Irinotecan 180mg/m2 IVover 90 minutes; Leucovorin 400mg/m2 IV over 90 minutes; followed by Day 1: Fluorouracil 400mg/m2 IV push; followed by Days 1-2 Fluorouracil 2,400 mg/m2 IV continuous infusion over 46 hours. Repeat cycle every 2 weeks x 12 cycles. Cycle 1, Day 1 04/12/2020 Number of Cycles: 12 Goal of Treatment: Curative - Time with Patient Time Spent with Patient (Follow Up Visit): 45 minutes or more - high complexity visit--electrolyte repletion, dose reduction, review restaging scans. Coordination of Care & Counseling Time: Greater than 50% of time spent with patient was for coordination of care (as documented) and [id number] counseling of patient and/or family. Dictated By: Margaret Delgado MD DD/ [id number] Signed By: <Electronically signed by MD Margaret Delgado> 06/20/202013 [facility] Work Phone: [phone] 136-587803-17-2021 Progress note Author Margaret Delgado [facility] May 25, 2020 8:33am Note Date/Time May 25, 2020 8:0 9am [facility] [address] Hem/Onc Follow Up Note - OP Signed Patient: Altagracia Conway MR#: [id number] : 1955 Acct:[id number] Age/Sex: 64 / M Type: REG RCR Copies to: DO Nasim Allen MD~ Subjective Date/Time of Service: Date of Service: 05/25/2020 Time of Service: 08:08 Chief Complaint: Patient is here today for 1 month follow up visit for pancreatic cancer. He is here to review labs and has treatment today. He has a loss of appetitie. HPI: 05/25/2020: Altagracia is here for cycle 4-day 1 adjuvant FOLFIRINOX. He notes that he has intermittent nausea but is well controlled on his current medications. He notes early satiety and was recently given additional boost to use once daily. He has lost about 4 kg over the last month. 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 Fatigue is stable and hedenies abdominal or back pain. Renal function has proved since starting therapy. He has moderate anemia but does not require transfusion. At this point will continue full dose FOLFIRINOX and restage with CT chest abdomen pelvis prior to cycle 6 as well as CA 19-9. Next follow-up in 1 month with labs. 04/25/2020: Altagracia commenced adjuvant FOLFIRINOX C1D1 on 04/12/2020--tolerated well. Denies fatigue, nausea, constipation/diarrhea, abdominal pain or cold-induced neuropathy. F/u labs unremarkable. He wishes to move infusion to if possible for cycle 2 due to an important business meeting tomorrow (will have to set up [facility] inpatient duckworth eval to d/c 5FU pump Saturday). Otherwise no concerns--f/u with me in one month for tumor markers and exam--continue 100% dose. PREVIOUS HISTORY: This is a 64-year-old male who originally presented to [facility] with nausea, vomiting, diarrhea in October 2019 and was found to have elevated liver enzymes with total bilirubin 12.7, alkaline phosphatase 408, ALT 247, AST 197, lipase 161, white blood cell count of thousand 100, hemoglobin 12.9, platelets 139,000. INR 1.2 and hemoglobin A1c 9.1. MRCP showed extensiveextra and intrahepatic biliary dilatation up to 1.5 cm with a dilated pancreaticduct at 5 mm without discrete mass. ERCP 11/10/[address] Weaver revealed 2 mm stricture in the common bile duct, status post sphincterotomy, brushings, and placement of plastic stent. He was referred for EUS/ERCP on 12/07/[address] Margaret Malcolm with fine-needle biopsy showing atypical cells present, suspicious for carcinoma. At that time the biliary stent was partially occluded and there was a single severe biliary stricture in the lower third of the main bile duct (malignant appearing) status post dilation and brushing also showing atypical ductal cells with another placement of plastic pancreatic stent. His care was further delayed about 1 month when he was unable to be reached by phone to discuss further plan of care. He was seen by gastroenterology at [facility] in late December complaining of increased epigastric pain. He also was noted to have about 20 pounds of weight loss and worsening diabetes. January 10 he had repeat endoscopic ultrasound with a masslike region in the pancreatic head and again brushings showed atypical cells with fine-needle aspiration again with atypical cells suspicious for cancer. CT abdomen pelvis at [facility] 01/22/2020 revealed no distant metastatic disease. IMPRESSION: 1. Pancreatic head mass measuring 2.6 x 2.2 x 3.0 cm, with 180 degree abutment and contour abnormality of the patent SMV, with increasing pancreatic ductal dilatation, highly concerning for pancreatic adenocarcinoma. The superior mesenteric artery and celiac artery are not involved. Malignant involvement of a 9 mm peripancreatic lymph node is not excluded. 2. Status post common bile duct stent placement. Air within the stent, left greater than right pneumobilia, and air within the gallbladder all suggest stent patency. 3. Enlarged prostate. Please correlate with PSA. Due to nondiagnostic biopsies and resectable disease, he consented to upfront Whipple procedure (pancreatoduodenectomy) performed 02/15/2020. He tolerated surgery well and has returned to eating a normal diet. Diabetes is well controlled on his current regimen with insulin managed by Dr. Tiki Dockery at [facility]. 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 She does have some peripheral neuropathy from diabetes but this does not limit his activity. Given high risk features of perineural and lymphovascular invasion as well as anaplastic poorly differentiated histology, we discussed FOLFIRINOX adjuvant therapy which may commence after placement of infusion port in the next 1 to 2 weeks. Today we reviewed chemotherapy counseling for FOLFIRINOX (5-fluorouracil, leucovorin, irinotecan, oxaliplatin every 2 weeks for 12 cycles). Goal of therapy is curative. Common toxicities were reviewed to include myelosuppression, fatigue, nausea, vomiting, constipation, diarrhea, mouth sores, and alopecia. Other toxicities may include pneumonitis, cold-induced neuropathy, cumulative neuropathy, secondary malignancies, hepatic and renal toxicities. The patient signed informed consent and will follow-up as directed. Of note he does have a history of chronic hepatitis C status post treatment withEpclusa with complete response. He reports that his mother had pancreatic cancer and in her 60s as well as a father with pancreatic cancer who at age 82. Brother had lung cancer but no other family history of malignancies. He is an active smoker 1/2 pack/day since age 14 and continues actively smoking. He denies alcohol use quitting about 7 years ago when he was diagnosedwith hepatitis C. 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 DIAGNOSIS: 1. 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 2. Diabetes mellitus, insulin requiring with mild peripheral neuropathy 3. History of hepatitis C status post curative Epclusa therapy around 2013. 4. Family history of mother and father with pancreatic cancer 5. History of anxiety disorder and depression 6. Ongoing tobacco use 7. Unintentional weight loss - Summary of Therapies Summary of Therapies: 1. Whipple's procedure/pancreaticoduodenectomy 02/15/2020. 2. FOLFIRINOX therapy commenced 04/12/2020. FOLFIRINOX: Day 1: Oxaliplatin 85mg/m2 IV over 2 hours; Irinotecan 180mg/m2 IVover 90 minutes; Leucovorin 400mg/m2 IV over 90 minutes; followed by Day 1: Fluorouracil 400mg/m2 IV push; followed by Days 1-2 Fluorouracil 2,400 mg/m2 IV continuous infusion over 46 hours. Repeat cycle every 2 weeks x 12 cycles. ROS Details: All systems reviewed & no additional complaints except as documented Subjective/ROS - Narrative: CONSTITUTIONAL: Positive for mild fatigue, negative for fever or night sweats. HEAD AND NECK: Negative for changes in hearing and vision. Negative for mouth ulcers, nasal congestion and nasal drainage. PULMONARY: Negative for chest pain, cough and dyspnea. CARDIOVASCULAR: Negative for claudication and irregular heartbeat/palpitations. GASTROINTESTINAL: Negative for abdominal pain (well healed postop Whipple procedure). Positive for early satiety with decreased appetite and 4 kg weight loss over the last month. Positive for intermittent nausea without vomiting or constipation. Positive for intermittent diarrhea, not consistently using Imodium. GENITOURINARY: Negative for dysuria and hematuria. ENDOCRINE: Negative for cold intolerance and heat intolerance. Diabetes mellitus about 10 years, worsening control prior to pancreas cancer diagnosis. Now insulin dependent. CENTRAL NERVOUS SYSTEM: Negative for gait disturbance and headache. + peripheral neuropathy from diabetes, many years--unchanged. Neuropathy now is mainly cold-induced after infusion. PSYCHIATRIC: Negative for anxiety or depression. DERMATOLOGICAL: Negative for pruritus and rash. Negative for suspicious skin lesions. MUSCULOSKELETAL: Negative for back pain and bone/joint symptoms. HEMATOLOGICAL: Negative for bleeding and easy bruising. Negative for history of transfusion or thromboembolic disease ALLERGY: Negative for environmental allergies and food allergies. PMFSH - History Attestation statement: The following information was validated with the patient. Source: Old Records Reviewed - Medical History Medical History: Medical History (Last Reviewed 05/25/20 @ 08:25 by Margaret Delgado MD) Amputated toe of right foot Anxiety Blockage of a bile duct liver stents placed d/t blockage Depression Diabetes mellitus History of hepatitis C Hyperlipemia Hypertension Neuropathy Pancreatic cancer - Surgical History Surgical History: Surgical History (Last Reviewed 05/25/20 @ 08:25 by Margaret Delgado MD) History of cholecystectomy done at time of whipple History of gastrointestinal surgery whipple procedure 02/2020 - Family History Family History: Family History (Last Reviewed 05/25/20 @ 08:25 by Margaret Delgado MD) Father Pancreatic cancer Mother Pancreatic cancer - Social History Smoking Status: Current every day smoker Tobacco Type: cigarettes Substance Use Type: None Substance Abuse Comment: states I smoke marijuana every now and then enc not to am of surgery Home Medications & Allergies Allergies No Known Allergies Allergy (Verified 05/25/20 08:05) Home Medications Tresiba U-100 Insulin 7 unit SUBCUT QAM 03/17/20 [History Confirmed 05/25/20] amlodipine 5 mg PO QAM 03/17/20 [History Confirmed 05/25/20] insulin lispro [Humalog KwikPen Insulin] 100 unit SUBCUT PROTOCOL 03/17/20 [History Confirmed 05/25/20] metformin 1,000 mg PO BID 03/17/20 [History Confirmed 05/25/20] ondansetron HCl 8 mg PO Q8H PRN #30 tab 03/24/20 [Rx Confirmed 05/25/20] aripiprazole [Abilify] 15 mg PO QAM 04/04/20 [History Confirmed 05/25/20] atorvastatin [Lipitor] 20 mg PO QAM 04/04/20 [History Confirmed 05/25/20] duloxetine [Cymbalta] 60 mg PO QAM 04/04/20 [History Confirmed 05/25/20] lorazepam [Ativan] 3 mg PO QHS 04/04/20 [History Confirmed 05/25/20] losartan-hydrochlorothiazide [Hyzaar] 1 tab PO QAM 04/04/20 [History Confirmed 05/25/20] tramadol 50 mg PO Q6H PRN 04/04/20 [History Confirmed 05/25/20] Objective - Height/Weight Height/Weight: Height 6 ft 2 in Weight 78.925 kg BSA for Today's Weight 2.03 - Vital Signs Vital Signs: 05/25/20 08:05 Temperature 97.6 F Pulse Rate [Left Brachial] 94 H Respiratory Rate 20 Blood Pressure [Left Arm] 144/71 H 02 Sat by Pulse Oximetry 99 - Emotional Needs Assessment Emotional Needs Assessment: Emotional Needs Identified? No Physical Exam Narrative: CONSTITUTIONAL: The patient is in no acute distress, but appears more fatigued and mildly cachectic. HEAD / FACE: Normocephalic. EYES: Pupils are equal and reactive to light. Conjunctivae and lids are benign in appearance. Ocular movement intact. EARS: Hearing grossly intact. NOSE / MOUTH / THROAT: Nose, mouth, tongue and oropharynx are benign in appearance. No signs of inflammation. NECK / THYROID: Neck is supple. Thyroid is symmetrical, without thyromegaly, masses or palpable nodules. LYMPHATIC: No palpable cervical, supraclavicular, axillary, or inguinal adenopathy. RESPIRATORY: Normal to inspection. Lungs clear to auscultation and percussion. No wheezing, rales, rhonchi or rubs. Normal effort. CARDIOVASCULAR: Regular rate and rhythm. No murmurs, gallops, or rubs. VASCULAR: Carotid, radial, femoral and pedal pulses present bilaterally. No bruits. ABDOMEN: Bowel sounds normoactive. Soft, nontender and non-distended. No hepatosplenomegaly. No masses. Well healed incisions from Whipple procedure. GENITOURINARY: No CVA tenderness. No suprapubic fullness or tenderness. No groinadenopathy. No evidence of hernias. INTEGUMENTARY: The skin is unremarkable. No rashes. No suspicious lesions BACK / SPINE: The back is nontender. No stepoff deformity. MUSCULOSKELETAL: Normal musculature, no joint deformities or abnormalities, normal range of motion for all four extremities. EXTREMITIES: No edema, cyanosis or clubbing. No Kyle sign. NEUROLOGICAL: Alert and oriented. Cranial nerves intact. No gross motor or sensory deficits. PSYCHIATRIC: No anxiety or evidence of depression. - ECOG Performance Status ECOG Score: 1 Results - Labs Labs: Diagram of Most Recent CBC and CMP 05/24/20 13:05 05/24/20 13:05 Labs - Last 7 Days 05/24/20 13:05: PHA Creatinine Clear 72.61, Sodium 133 L, Potassium 3.4 L, Chloride 99, Carbon Dioxide 22.0, BUN 24 H, Creatinine 1.15, Est GFR ( Amer) > 60, Est GFR (Non-Af Amer) > 60, Glucose 312 H, Calcium 8.9, Total Bilirubin 0.4, AST 45 H, ALT 58, Alkaline Phosphatase 95 H, Total Protein 6.2, Albumin 3.2, Globulin 3.0, Albumin/Globulin Ratio 1.1 05/24/20 13:05: Corrected WBC 10.4, Uncorrected WBC Count 10.4, RBC 3.09 L, Hgb 9.8 L, Hct 27.0 L, MCV 87.6, MCH 31.6, MCHC 36.1 H, RDW 15.1 H, Plt Count 138 L,MPV 7.9, Neut % (Auto) 65.7, Lymph % (Auto) 26.2, Alfalfa % (Auto) 6.8, Eos % (Auto) 0.9, Baso % (Auto) 0.4, Neut # (Auto) 6.8, Lymph # (Auto) 2.7, Alfalfa # (Auto) 0.7, Eos # (Auto) 0.1, Baso # (Auto) 0.0, Nucleated RBC % (auto) 0.2, Platelet Estimate Decreased L, Plt Morphology Comment Normal, RBC Morphology N/A, Polychromasia Slight, Anisocytosis Slight - Impressions Restaging CT chest abdomen pelvis ordered for 1 month from now (prior to cycle 6FOLFIRINOX) Assessment and Plan - TNM Staging Staging: Upfront resection of pancreatic Undifferentiated carcinoma anaplastic type. 0/39LNs. pT2 N0. (1) Primary cancer of head of pancreas Upfront Whipple procedure for resectable pancreas cancer (initial biopsies suspicious but nondiagnostic for malignancy). 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 Poor risk features and good performance status (although mild baseline diabetic neuropathy). He consented to FOLFIRINOXadjuvant therapy. General surgery referral for infusion port placement. 04/25/2020: No significant toxicities at followup visit (cycle 1 day 1 was 04/12/2020). We will continue 100% dose FOLFIRINOX and follow closely for hyperglycemia and neuropathy symptoms due to his baseline diabetic neuropathy. 05/25/2020: Patient has increased fatigue, early satiety, and weight loss. Adding Boost at least twice daily and encouraging use of Imodium and Zofran regularly. Okay for cycle 4 today with stable labs. Restaging CT chest abdomenpelvis will be scheduled prior to cycle 6 in 1 month I will see him at that time. All questions answered over this 30 min face to face visit for toxicity review of toxicities on FOLFIRINOX chemotherapy. (2) Diabetes mellitus with neuropathy Qualifiers: Diabetes mellitus type: type 2 Diabetes mellitus emt intermediate insulin use: unspecified emt intermediate insulin use status Qualified Code(s): E11.40 - Type 2 diabetes mellitus with diabetic neuropathy, unspecified Followed by Dr. Dockery--improving control since surgery. Followup blood sugars closely while on chemotherapy--blood sugars in 300s (nonfasting) on labs yesterday. I will have infusion nurses check a fasting glucose fingerstick prior to therapy today, and will have him have follow-up with Dr. Dockery for adjustment of insulin regimen. (3) Anemia complicating neoplastic disease Hemoglobin is down to 9.8 but no indication for transfusion at this time. We will follow closely during FOLFIRINOX chemotherapy. (4) Cancer cachexia Patient has lost about 4 kg in the last month. Recently started adding boost supplementation. For now given his poor prognosis cancer we will continue full dose FOLFIRINOX and restaging in 1 month. He does not seem to have increasing diarrhea or concerns for gastric outlet obstruction of but will follow closely with future exams. (5) Encounter for chemotherapy management Tolerating first 3 cycles well reasonably well although now has weight loss, early satiety, and increasing fatigue. For now we will continue 100% dose FOLFIRINOX. (6) History of hepatitis C S/p curative therapy with negative viral load in 2013. Follow liver function during FOLFIRINOX therapy. (7) Family history of pancreatic cancer Will refer for Medical Genetics consultation due to 2 first degree (mother and father) relatives with pancreatic cancer. - Chemo Plan Chemo Plan (Dose, Rate, Freq): FOLFIRINOX: Day 1: Oxaliplatin 85mg/m2 IV over 2 hours; Irinotecan 180mg/m2 IVover 90 minutes; Leucovorin 400mg/m2 IV over 90 minutes; followed by Day 1: Fluorouracil 400mg/m2 IV push; followed by Days 1-2 Fluorouracil 2,400 mg/m2 IV continuous infusion over 46 hours. Repeat cycle every 2 weeks x 12 cycles. Cycle 1, Day 1 04/12/2020 Number of Cycles: 12 Goal of Treatment: Curative - Time with Patient Time Spent with Patient (Follow Up Visit): 35 minutes Coordination of Care & Counseling Time: Greater than 50% of time spent with patient was for coordination of care (as documented) and [id number] counseling of patient and/or family. Dictated By: Margaret Delgado MD DD/ Signed By: <Electronically signed by MD Margaret Delgado> 05/25/20 0833 [facility] Work Phone: [phone] [phone] Progress note Author Margaret Delgado [facility] April 26, 2020 8:14am Note Date/Time April 25, 2020 3:02pm [facility] [place] [address] Hem/Onc Follow Up Note - OP Signed Patient: Altagracia Conway MR#: [id number] : 1955 Acct:[id number] Age/Sex: 64 / M Type: REG RCR Copies to: DO Nasim Allen MD~ Subjective Date/Time of Service: Date of Service: 04/25/2020 Time of Service: 15:02 Chief Complaint: patient is here today for 1 month follow up visit for pancreatic cancer. He is here to go over labs. No new concerns HPI: 04/25/2020: Altagracia commenced adjuvant FOLFIRINOX C1D1 on 04/12/2020--tolerated well. Denies fatigue, nausea, constipation/diarrhea, abdominal pain or cold-induced neuropathy. F/u labs unremarkable. He wishes to move infusion to if possible for cycle 2 due to an important business meeting tomorrow (will haveto set up [facility] inpatient duckworth eval to d/c 5FU pump Saturday). Otherwise noconcerns--f/u with me in one month for tumor markers and exam--continue 100% dose. PREVIOUS HISTORY: This is a 64-year-old male who originally presented to [facility] with nausea, vomiting, diarrhea in October 2019 and was found to have elevated liver enzymes with total bilirubin 12.7, alkaline phosphatase 408, ALT 247, AST 197, lipase 161, white blood cell count of thousand 100, hemoglobin 12.9, platelets 1 39,000. INR 1.2 and hemoglobin A1c 9.1. MRCP showed extensive extra and intrahepatic biliary dilatation up to 1.5 cm with a dilated pancreatic duct at 5 mm without discrete mass. ERCP 11/10/[address] Weaver revealed 2 mm stricture in the common bile duct, status post sphincterotomy, brushings, and placement of plastic stent. He was referred for EUS/ERCP on 12/07/[address] Margaret Malcolm with fine-needle biopsy showing atypical cells present, suspicious for carcinoma. At that time the biliary stent was partiallyoccluded and there was a single severe biliary stricture in the lower third of the main bile duct (malignant appearing) status post dilation and brushing also showing atypical ductal cells with another placement of plastic pancreatic stent. His care was further delayed about 1 month when he was unable to be reached by phone to discuss further plan of care. He was seen by gastroenterology at [facility] in late December complaining of increased epigastric pain. He also was noted to have about 20 pounds of weight loss and worsening diabetes. January 10 he had repeat endoscopic ultrasound with a masslike region in the pancreatic head and again brushings showed atypical cells with fine-needle aspiration again with atypical cells suspicious for cancer. CT abdomen pelvis at [facility] 01/22/2020 revealed no distant metastatic disease. IMPRESSION: 1. Pancreatic head mass measuring 2.6 x 2.2 x 3.0 cm, with 180 degree abutment and contour abnormality of the patent SMV, with increasing pancreatic ductal dilatation, highly concerning for pancreatic adenocarcinoma. The superior mesenteric artery and celiac artery are not involved. Malignant involvement of a 9 mm peripancreatic lymph node is not excluded. 2. Status post common bile duct stent placement. Air within the stent, left greater than right pneumobilia, and air within the gallbladder all suggest stent patency. 3. Enlarged prostate. Please correlate with PSA. Due to nondiagnostic biopsies and resectable disease, he consented to upfront Whipple procedure (pancreatoduodenectomy) performed 02/15/2020. He tolerated surgery well and has returned to eating a normal diet. Diabetes is well controlled on his current regimen with insulin managed by Dr. Tiki Dockery at [facility]. 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 She does have some peripheral neuropathy from diabetes but this does not limit his activity. Given high risk features of perineural and lymphovascular invasion as well as anaplastic poorly differentiated histology, we discussed FOLFIRINOX adjuvant therapy which may commence after placement of infusion port in the next 1 to 2 weeks. Today we reviewed chemotherapy counseling for FOLFIRINOX (5-fluorouracil, leucovorin, irinotecan, oxaliplatin every 2 weeks for 12 cycles). Goal of therapy is curative. Common toxicities were reviewed to include myelosuppression, fatigue, nausea, vomiting, constipation, diarrhea, mouth sores, and alopecia. Other toxicities may include pneumonitis, cold-induced neuropathy, cumulative neuropathy, secondary malignancies, hepatic and renal toxicities. The patient signed informed consent and will follow-up as directed. Of note he does have a history of chronic hepatitis C status post treatment withEpclusa with complete response. He reports that his mother had pancreatic cancer and in her 60s as well as a father with pancreatic cancer who at age 82. Brother had lung cancer but no other family history of malignancies. He is an active smoker 1/2 pack/day since age 14 and continues actively smoking. He denies alcohol use quitting about 7 years ago when he was diagnosedwith hepatitis C. 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 DIAGNOSIS: 1. 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 2. Diabetes mellitus, insulin requiring with mild peripheral neuropathy 3. History of hepatitis C status post curative Epclusa therapy around 2013. 4. Family history of mother and father with pancreatic cancer 5. History of anxiety disorder and depression 6. Ongoing tobacco use 7. Unintentional weight loss - Summary of Therapies Summary of Therapies: 1. Whipple's procedure/pancreaticoduodenectomy 02/15/2020. 2. FOLFIRINOX therapy commenced 04/12/2020. FOLFIRINOX: Day 1: Oxaliplatin 85mg/m2 IV over 2 hours; Irinotecan 180mg/m2 IVover 90 minutes; Leucovorin 400mg/m2 IV over 90 minutes; followed by Day 1: Fluorouracil 400mg/m2 IV push; followed by Days 1-2 Fluorouracil 2,400 mg/m2 IV continuous infusion over 46 hours. Repeat cycle every 2 weeks x 12 cycles. ROS Details: All systems reviewed & no additional complaints except as documented Subjective/ROS - Narrative: CONSTITUTIONAL: Negative for fatigue, negative for fever or night sweats. HEAD AND NECK: Negative for changes in hearing and vision. Negative for mouth ulcers, nasal congestion and nasal drainage. PULMONARY: Negative for chest pain, cough and dyspnea. CARDIOVASCULAR: Negative for claudication and irregular heartbeat/palpitations. GASTROINTESTINAL: Negative for abdominal pain (well healed postop Whipple procedure). He denies decreased appetite, nausea, vomiting, constipation, or diarrhea. GENITOURINARY: Negative for dysuria and hematuria. ENDOCRINE: Negative for cold intolerance and heat intolerance. Diabetes mellitus about 10 years, worsening control prior to pancreas cancer diagnosis. Now insulin dependent. CENTRAL NERVOUS SYSTEM: Negative for gait disturbance and headache. + peripheral neuropathy from diabetes, many years--unchanged. PSYCHIATRIC: Negative for anxiety or depression. DERMATOLOGICAL: Negative for pruritus and rash. Negative for suspicious skin lesions. MUSCULOSKELETAL: Negative for back pain and bone/joint symptoms. HEMATOLOGICAL: Negative for bleeding and easy bruising. Negative for history of transfusion or thromboembolic disease ALLERGY: Negative for environmental allergies and food allergies. PMFSH - History Attestation statement: The following information was validated with the patient. Source: Old Records Reviewed - Medical History Medical History: Medical History (Last Reviewed 04/26/20 @ 08:07 by Margaret Delgado MD) Amputated toe of right foot Anxiety Blockage of a bile duct liver stents placed d/t blockage Depression Diabetes mellitus History of hepatitis C Hyperlipemia Hypertension Neuropathy Pancreatic cancer - Surgical History Surgical History: Surgical History (Last Reviewed 04/26/20 @ 08:07 by Margaret Delgado MD) History of cholecystectomy done at time of whipple History of gastrointestinal surgery whipple procedure 02/2020 - Family History Family History: Family History (Last Reviewed 04/26/20 @ 08:07 by Margaret Delgado MD) Father Pancreatic cancer Mother Pancreatic cancer - Social History Smoking Status: Current every day smoker Tobacco Type: cigarettes Substance Use Type: None Substance Abuse Comment: states I smoke marijuana every now and then enc not to am of surgery Home Medications & Allergies Allergies No Known Allergies Allergy (Verified 04/25/20 14:55) Home Medications Tresiba U-100 Insulin 7 unit SUBCUT QAM 03/17/20 [History Confirmed 04/25/20] amlodipine 5 mg PO QAM 03/17/20 [History Confirmed 04/25/20] insulin lispro [Humalog KwikPen Insulin] 100 unit SUBCUT PROTOCOL 03/17/20 [History Confirmed 04/25/20] metformin 1,000 mg PO BID 03/17/20 [History Confirmed 04/25/20] ondansetron HCl 8 mg PO Q8H PRN #30 tab 03/24/20 [Rx Confirmed 04/25/20] aripiprazole [Abilify] 15 mg PO QAM 04/04/20 [History Confirmed 04/25/20] atorvastatin [Lipitor] 20 mg PO QAM 04/04/20 [History Confirmed 04/25/20] duloxetine [Cymbalta] 60 mg PO QAM 04/04/20 [History Confirmed 04/25/20] lorazepam [Ativan] 3 mg PO QHS 04/04/20 [History Confirmed 04/25/20] losartan-hydrochlorothiazide [Hyzaar] 1 tab PO QAM 04/04/20 [History Confirmed 04/25/20] tramadol 50 mg PO Q6H PRN 04/04/20 [History Confirmed 04/25/20] Objective - Height/Weight Height/Weight: Height 6 ft 2 in Weight 81.647 kg BSA for Today's Weight 2.10 - Vital Signs Vital Signs: 04/25/20 14:55 Temperature 97.5 F L Pulse Rate [Left Brachial] 102 H Respiratory Rate 20 Blood Pressure [Left Arm] 115/72 02 Sat by Pulse Oximetry 98 - Emotional Needs Assessment Emotional Needs Assessment: Emotional Needs Identified? No Physical Exam Narrative: CONSTITUTIONAL: The patient is in no acute distress. HEAD / FACE: Normocephalic. EYES: Pupils are equal and reactive to light. Conjunctivae and lids are benign in appearance. Ocular movement intact. EARS: Hearing grossly intact. NOSE / MOUTH / THROAT: Nose, mouth, tongue and oropharynx are benign in appearance. No signs of inflammation. NECK / THYROID: Neck is supple. Thyroid is symmetrical, without thyromegaly, masses or palpable nodules. LYMPHATIC: No palpable cervical, supraclavicular, axillary, or inguinal adenopathy. RESPIRATORY: Normal to inspection. Lungs clear to auscultation and percussion. No wheezing, rales, rhonchi or rubs. Normal effort. CARDIOVASCULAR: Regular rate and rhythm. No murmurs, gallops, or rubs. VASCULAR: Carotid, radial, femoral and pedal pulses present bilaterally. No bruits. ABDOMEN: Bowel sounds normoactive. Soft, nontender and non-distended. No hepatosplenomegaly. No masses. Well healed incisions from Whipple procedure. GENITOURINARY: No CVA tenderness. No suprapubic fullness or tenderness. No groinadenopathy. No evidence of hernias. INTEGUMENTARY: The skin is unremarkable. No rashes. No suspicious lesions BACK / SPINE: The back is nontender. No stepoff deformity. MUSCULOSKELETAL: Normal musculature, no joint deformities or abnormalities, normal range of motion for all four extremities. EXTREMITIES: No edema, cyanosis or clubbing. No Kyle sign. NEUROLOGICAL: Alert and oriented. Cranial nerves intact. No gross motor or sensory deficits. PSYCHIATRIC: No anxiety or evidence of depression. - ECOG Performance Status ECOG Score: 0 Results - Labs Labs: Diagram of Most Recent CBC and CMP 04/25/20 13:52 04/25/20 13:52 Labs - Last 7 Days 04/25/20 13:52: PHA Creatinine Clear 54.57, Sodium 137, Potassium 3.9, Chloride 100, Carbon Dioxide 25.4, BUN 27 H, Creatinine 1.59 H, Est GFR ( Amer) 53, Est GFR (Non-Af Amer) 44, Glucose 258 H, Calcium 9.7, Total Bilirubin 0.5, AST 30, ALT 25, Alkaline Phosphatase 104 H, Total Protein 7.1, Albumin 3.9, Globulin 3.2, Albumin/Globulin Ratio 1.2 04/25/20 13:52: Corrected WBC 14.5 H, Uncorrected WBC Count 14.5 H, RBC 3.66 L, Hgb 11.0 L, Hct 32.1 L, MCV 87.5, MCH 29.9, MCHC 34.2, RDW 14.0, Plt Count 183, MPV 8.1, Neut % (Auto) 74.2, Lymph % (Auto) 20.2, Alfalfa % (Auto) 4.0, Eos % (Auto) 1.4, Baso % (Auto) 0.2, Neut # (Auto) 10.8 H, Lymph # (Auto) 2.9, Alfalfa # (Auto) 0.6, Eos # (Auto) 0.2, Baso # (Auto) 0.0, Nucleated RBC % (auto) 0.1 04/18/20 15:14: PHA Creatinine Clear 63.33, Sodium 134 L, Potassium 3.9, Chloride 99, Carbon Dioxide 24.2, BUN 38 H, Creatinine 1.37 H, Est GFR ( Amer) > 60, Est GFR (Non-Af Amer) 52, Glucose 162 H, Calcium 9.4, Total Bilirubin 0.6, AST 19, ALT 22, Alkaline Phosphatase 88, Total Protein 7.2, Albumin 3.8, Globulin 3.4, Albumin/Globulin Ratio 1.1 04/18/20 15:14: Corrected WBC 14.7 H, Uncorrected WBC Count 14.7 H, RBC 3.62 L, Hgb 11.0 L, Hct 31.9 L, MCV 88.1, MCH 30.5, MCHC 34.7, RDW 14.0, Plt Count 113 L, MPV 10.2 H, Neut % (Auto) N/A, Lymph % (Auto) N/A, Alfalfa % (Auto) N/A, Eos % (Auto) N/A, Baso % (Auto) N/A, Neut # (Auto) N/A, Lymph # (Auto) N/A, Alfalfa # (Auto) N/A, Eos # (Auto) N/A, Baso # (Auto) N/A, Nucleated RBC % (auto) 0.0, Band Neutrophils % 8 H, Lymphocytes % 22, Monocytes % 1 L, Metamyelocytes % 4 H,Segmented Neutrophils 65, Platelet Estimate Decreased L, Plt Morphology Comment Normal, RBC Morphology Normal - Impressions No new imaging for review. 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 0/39LNs. pT2 N0. (1) Primary cancer of head of pancreas Upfront Whipple procedure for resectable pancreas cancer (initial biopsies suspicious but nondiagnostic for malignancy). 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 Poor risk features and good performance status (although mild baseline diabetic neuropathy). He consented to FOLFIRINOXadjuvant therapy. General surgery referral for infusion port placement. 04/25/2020: No significant toxicities at followup visit (cycle 1 day 1 was 04/12/2020). We will continue 100% dose FOLFIRINOX and follow closely for hyperglycemia and neuropathy symptoms due to his baseline diabetic neuropathy. All questions answered over this 30 min face to face visit for toxicity review of initial chemotherapy. (2) Diabetes mellitus with neuropathy Qualifiers: Diabetes mellitus type: type 2 Diabetes mellitus emt intermediate insulin use: unspecified emt intermediate insulin use status Qualified Code(s): E11.40 - Type 2 diabetes mellitus with diabetic neuropathy, unspecified Followed by Dr. Dockery--improving control since surgery. Followup blood sugars closely while on chemotherapy. (3) History of hepatitis C S/p curative therapy with negative viral load in 2013. Follow liver function during FOLFIRINOX therapy. (4) Family history of pancreatic cancer Will refer for Medical Genetics consultation due to 2 first degree (mother and father) relatives with pancreatic cancer. (5) Encounter for chemotherapy management Tolerating first cycle well without significant toxicities. Continue 100% dose FOLFIRINOX. - Chemo Plan Chemo Plan (Dose, Rate, Freq): FOLFIRINOX: Day 1: Oxaliplatin 85mg/m2 IV over 2 hours; Irinotecan 180mg/m2 IVover 90 minutes; Leucovorin 400mg/m2 IV over 90 minutes; followed by Day 1: Fluorouracil 400mg/m2 IV push; followed by Days 1-2 Fluorouracil 2,400 mg/m2 IV continuous infusion over 46 hours. Repeat cycle every 2 weeks x 12 cycles. Cycle 1, Day 1 04/12/2020 Number of Cycles: 12 Goal of Treatment: Curative - Time with Patient Time Spent with Patient (Follow Up Visit): 25 minutes Coordination of Care & Counseling Time: Greater than 50% of time spent with patient was for coordination of care (as documented) and [id number] counseling of patient and/or family. Dictated By: Margaret Delgado MD DD/ 1502 Signed By: <Electronically signed by MD Margaret Delgado> 04/26/20 0841 [facility] Work Phone: [phone] 625-679501-07-2021 Consult note Author Margaret Delgado [facility] March 17, 2020 9:54pm Note Date/Time March 17, 2020 10 :49am [facility] [place] [address] Hem/Onc Consult Note - OP Signed Patient: Altagracia Conway MR#: [id number] : 1955 Acct:[id number] Age/Sex: 64 / M Type: REG RCR Copies to: DO Nasim Allen MD~ HPI Date/Time of Service: Date of Service: 03/17/2020 Time of Service: 10:49 Referring Provider/PCP: Referring Provider: Nasim Guillaume MD PCP: Tiki Dockery DO - History of Present Illness Reason for Consultation: Originally presented with obstructive jaundice. 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 Final pathology revealed T2 N0 M0 disease with negative margins. Lymphovascular invasion and perineural invasion present. Here for discussion of adjuvant chemotherapy. Chief Complaint: patient is here today for a referral from Dr Nasim Guillaume for pancreatic cancer HPI: Dear Dr. Guillaume, I had the great pleasure of seeing your patient in consultation. Thank you verymuch for your referral. As you know this is a 64-year-old male who originally presented to [facility] with nausea, vomiting, diarrhea in October 2019 and was found to have elevated liver enzymes with total bilirubin 12.7, alkaline phosphatase 408, ALT 247, AST 197, lipase 161, white blood cell count of thousand 100, hemoglobin 12.9, platelets 1 39,000. INR 1.2 and hemoglobin A1c 9.1. MRCP showed extensive extra and intrahepatic biliary dilatation up to 1.5 cm with a dilated pancreatic duct at 5 mm without discrete mass. ERCP 11/10/[address] Weaver revealed 2 mm stricture in the common bile duct, status post sphincterotomy, brushings, and placement of plastic stent. Hewas referred for EUS/ERCP on 12/07/[address] Margaret Malcolm with fine- needle biopsy showing atypical cells present, suspicious for carcinoma. At that time the biliary stent was partially occluded and there was a single severe biliary stricture in the lower third of the main bile duct (malignant appearing) status post dilation and brushing also showing atypical ductal cells with another placement of plastic pancreatic stent. His care was further delayed about 1 month when he was unable to be reached by phone to discuss further plan of care. He was seen by gastroenterology at [facility] in late December complaining of increased epigastric pain. He also was noted to have about 20 pounds of weight loss and worsening diabetes. January 10 he had repeat endoscopic ultrasound with a masslike region in the pancreatic head and again brushings showed atypical cells with fine-needle aspiration again with atypical cells suspicious for cancer. CT abdomen pelvis at [facility] 01/22/2020 revealed no distant metastatic disease. IMPRESSION: 1. Pancreatic head mass measuring 2.6 x 2.2 x 3.0 cm, with 180 degree abutment and contour abnormality of the patent SMV, with increasing pancreatic ductal dilatation, highly concerning for pancreatic adenocarcinoma. The superior mesenteric artery and celiac artery are not involved. Malignant involvement of a 9 mm peripancreatic lymph node is not excluded. 2. Status post common bile duct stent placement. Air within the stent, left greater than right pneumobilia, and air within the gallbladder all suggest stent patency. 3. Enlarged prostate. Please correlate with PSA. Due to nondiagnostic biopsies and resectable disease, he consented to upfront Whipple procedure (pancreatoduodenectomy) performed 02/15/2020. He tolerated surgery well and has returned to eating a normal diet. Diabetes is well controlled on his current regimen with insulin managed by Dr. Tiki Dockery at [facility]. 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 She does have some peripheral neuropathy from diabetes but this does not limit his activity. Given high risk features of perineural and lymphovascular invasion as well as anaplastic poorly differentiated histology, we discussed FOLFIRINOX adjuvant therapy which may commence after placement of infusion port in the next 1 to 2 weeks. Today we reviewed chemotherapy counseling for FOLFIRINOX (5-fluorouracil, leucovorin, irinotecan, oxaliplatin every 2 weeks for 12 cycles). Goal of therapy is curative. Common toxicities were reviewed to include myelosuppression, fatigue, nausea, vomiting, constipation, diarrhea, mouth sores, and alopecia. Other toxicities may include pneumonitis, cold-induced neuropathy, cumulative neuropathy, secondary malignancies, hepatic and renal toxicities. The patient signed informed consent and will follow-up as directed. Of note he does have a history of chronic hepatitis C status post treatment withEpclusa with complete response. He reports that his mother had pancreatic cancer and in her 60s as well as a father with pancreatic cancer who at age 82. Brother had lung cancer but no other family history of malignancies. He is an active smoker 1/2 pack/day since age 14 and continues actively smoking. He denies alcohol use quitting about 7 years ago when he was diagnosedwith hepatitis C. 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 [facility] - History Attestation statement: The following information was validated with the patient. Source: Old Records Reviewed - Medical History Medical History: Medical History (Last Reviewed 03/17/20 @ 17:28 by Margaret Delgado MD) Acid reflux Amputated toe of right foot Anxiety Diabetes mellitus History of hepatitis C Hyperlipemia Hypertension Pancreatic cancer - Family History Family History: Family History (Last Reviewed 03/17/20 @ 17:28 by Margaret Delgado MD) Father Pancreatic cancer Mother Pancreatic cancer - Social History Smoking Status: Current every day smoker Tobacco Type: cigarettes Substance Use Type: None Home Medications & Allergies Allergies No Known Allergies Allergy (Verified 03/17/20 10:23) Home Medications amlodipine 5 mg PO DAILY 03/17/20 [History Confirmed 03/17/20] aripiprazole 15 mg PO DAILY 03/17/20 [History Confirmed 03/17/20] atorvastatin 40 mg PO DAILY 03/17/20 [History Confirmed 03/17/20] duloxetine 60 mg PO DAILY 03/17/20 [History Confirmed 03/17/20] insulin degludec [Tresiba U-100 Insulin] 10 unit SUBCUT DAILY 03/17/20 [History Confirmed 03/17/20] insulin lispro [Humalog KwikPen Insulin] 100 unit SUBCUT DAILY 03/17/20 [History Confirmed 03/17/20] metformin 1,000 mg PO BID 03/17/20 [History Confirmed 03/17/20] Subjective Data - Diagnosis DIAGNOSIS: 1. 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 2. Diabetes mellitus, insulin requiring with mild peripheral neuropathy 3. History of hepatitis C status post curative Epclusa therapy around 2013. 4. Family history of mother and father with pancreatic cancer 5. History of anxiety disorder and depression 6. Ongoing tobacco use 7. Unintentional weight loss - Summary of Therapies Summary of Therapies: 1. Whipple's procedure/pancreaticoduodenectomy 02/15/2020. 2. Patient signed informed consent for FOLFIRINOX therapy 03/17/2020 to commence in the next 1 to 2 weeks after infusion port placement. FOLFIRINOX: Day 1: Oxaliplatin 85mg/m2 IV over 2 hours; Irinotecan 180mg/m2 IVover 90 minutes; Leucovorin 400mg/m2 IV over 90 minutes; followed by Day 1: Fluorouracil 400mg/m2 IV push; followed by Days 1-2 Fluorouracil 2,400 mg/m2 IV continuous infusion over 46 hours. Repeat cycle every 2 weeks x 12 cycles. Subjective/ROS - Narrative: CONSTITUTIONAL: Positive for mild postop fatigue, negative for fever or night sweats. HEAD AND NECK: Negative for changes in hearing and vision. Negative for mouth ulcers, nasal congestion and nasal drainage. PULMONARY: Negative for chest pain, cough and dyspnea. CARDIOVASCULAR: Negative for claudication and irregular heartbeat/palpitations. GASTROINTESTINAL: Negative for abdominal pain (well healed postop Whipple procedure). He denies decreased appetite, nausea, vomiting, constipation, or diarrhea. GENITOURINARY: Negative for dysuria and hematuria. ENDOCRINE: Negative for cold intolerance and heat intolerance. Diabetes mellitus about 10 years, worsening control prior to pancreas cancer diagnosis. Now insulin dependent. CENTRAL NERVOUS SYSTEM: Negative for gait disturbance and headache. + peripheral neuropathy from diabetes, many years. PSYCHIATRIC: Negative for anxiety or depression. DERMATOLOGICAL: Negative for pruritus and rash. Negative for suspicious skin lesions. MUSCULOSKELETAL: Negative for back pain and bone/joint symptoms. HEMATOLOGICAL: Negative for bleeding and easy bruising. Negative for history of transfusion or thromboembolic disease ALLERGY: Negative for environmental allergies and food allergies. ROS Details: All systems reviewed & no additional complaints except as documented Objective - Height/Weight Height/Weight: Height 6 ft 2 in Weight 83.007 kg - Vital Signs Vital Signs: 03/17/20 10:28 Temperature 97.2 F L Pulse Rate [Left Brachial] 74 Respiratory Rate 20 Blood Pressure [Left Arm] 149/96 H 02 Sat by Pulse Oximetry 96 - Emotional Needs Assessment Emotional Needs Assessment: Emotional Needs Identified? No Distress Screening Total 8 Expressed Feelings Anxiety,Depression Ineffective Coping Comment no intervention needed Physical Exam Narrative: CONSTITUTIONAL: The patient is in no acute distress. HEAD / FACE: Normocephalic. EYES: Pupils are equal and reactive to light. Conjunctivae and lids are benign in appearance. Ocular movement intact. EARS: Hearing grossly intact. NOSE / MOUTH / THROAT: Nose, mouth, tongue and oropharynx are benign in appearance. No signs of inflammation. NECK / THYROID: Neck is supple. Thyroid is symmetrical, without thyromegaly, masses or palpable nodules. LYMPHATIC: No palpable cervical, supraclavicular, axillary, or inguinal adenopathy. RESPIRATORY: Normal to inspection. Lungs clear to auscultation and percussion. No wheezing, rales, rhonchi or rubs. Normal effort. CARDIOVASCULAR: Regular rate and rhythm. No murmurs, gallops, or rubs. VASCULAR: Carotid, radial, femoral and pedal pulses present bilaterally. No bruits. ABDOMEN: Bowel sounds normoactive. Soft, nontender and non-distended. No hepatosplenomegaly. No masses. Well healed incisions from Whipple procedure. GENITOURINARY: No CVA tenderness. No suprapubic fullness or tenderness. No groinadenopathy. No evidence of hernias. INTEGUMENTARY: The skin is unremarkable. No rashes. No suspicious lesions BACK / SPINE: The back is nontender. No stepoff deformity. MUSCULOSKELETAL: Normal musculature, no joint deformities or abnormalities, normal range of motion for all four extremities. EXTREMITIES: No edema, cyanosis or clubbing. No Kyle sign. NEUROLOGICAL: Alert and oriented. Cranial nerves intact. No gross motor or sensory deficits. PSYCHIATRIC: No anxiety or evidence of depression. Results - Labs Labs: Extensive labs reviewed as per HPI. 02/11/2020 preoperative CA 19-9 35.46 - Impressions CT abdomen pelvis at [facility] 01/22/2020 revealed no distant metastatic disease. IMPRESSION: 1. Pancreatic head mass measuring 2.6 x 2.2 x 3.0 cm, with 180 degree abutment and contour abnormality of the patent SMV, with increasing pancreatic ductal dilatation, highly concerning for pancreatic adenocarcinoma. The superior mesenteric artery and celiac artery are not involved. Malignant involvement of a 9 mm peripancreatic lymph node is not excluded. 2. Status post common bile duct stent placement. Air within the stent, left greater than right pneumobilia, and air within the gallbladder all suggest stent patency. 3. Enlarged prostate. Please correlate with PSA. - Other Results Results/Comments: Date of Procedure: 02/15/2020 Date Received: 02/15/2020 Date Reported 03/01/2020 Submitting Physician: NASIM GUILALUME M.D. Location: [facility] Other External # FINAL DIAGNOSIS A. ABDOMINAL WALL MASS, EXCISION: -- CAVERNOUS HEMANGIOMA. -- NO EVIDENCE OF MALIGNANCY. B. PORTION OF STOMACH, DUODENUM, HEAD OF PANCREAS AND COMMON BILE DUCT, PANCREATICODUODENECTOMY (WHIPPLE PROCEDURE): -- PANCREATIC UNDIFFERENTIATED CARCINOMA WITH ANAPLASTIC FEATURES, SEE COMMENT AND SYNOPTIC REPORT. -- THIRTY EIGHT LYMPH NODES, NEGATIVE FOR TUMOR (0/38). -- PROXIMAL AND DISTAL MARGINS OF RESECTION, NEGATIVE FOR DYSPLASIA AND TUMOR. -- TUMOR IS 1.0 MM FROM UNCINATE MARGIN. -- PANCREATIC NECK MARGIN WITH FOCAL ATYPICAL GLANDS (SEE PART C FOR FINAL MARGIN STATUS). COMMENT (B): The tumor consists predominantly of solid sheets of cells with pleomorphic nuclei and occasional bizarre-appearing giant cells. Approximately 10% of the tumor contains more well-differentiated malignant glands as seen with a ductal adenocarcinoma. Osteoclast-like giant cells are not identified. Given the unusual morphology, immunohistochemical stains were performed and show that tumor cells are positive for cytokeratins (AE1/AE3, CAM5.2, CK7), and vimentin, and that they are negative for INI-1 (intact nuclear expression) and SOX-10, consistent with an anaplastic undifferentiated carcinoma. C. PANCREATIC NECK, MARGIN: -- CHRONIC PANCREATITIS; NO DEFINITIVE EVIDENCE OF INVASIVE CARCINOMA; SEE COMMENT. -- NEGATIVE FOR DYSPLASIA. COMMENT (C): A CK7 immunohistochemical stain shows non-specific staining surrounding the main pancreatic duct, favored to represent reactive changes. D. GALLBLADDER, CHOLECYSTECTOMY: -- UNABLE TO PROCESS. -- DISCUSSED WITH DR. GUILLAUME ON 02/29/20 AT 4:20 PM VIA PHONE. E. HEPATIC ARTERY LYMPH NODE, EXCISION: -- ONE LYMPH NODE, NEGATIVE FOR TUMOR (0/1). nursing education consultant: Dr. Caleb Maurer has reviewed selected slides (B12, B13) and agrees with the diagnosis rendered above for Part B. The gross and/or microscopic findings were reviewed in conjunction with pathology residents, Luís Mesa M.D., and Greg Coreas D.O. CANCER SUMMARY REPORT SPECIMEN Procedure: Pancreaticoduodenectomy (Whipple resection), partial pancreatectomy TUMOR Tumor Site: Pancreatic head Histologic Type: Undifferentiated carcinoma (anaplastic) Histologic Grade: Not applicable: Undifferentiated Tumor Size: Greatest Dimension (Centimeters): 3.5 cm Tumor Extension: Tumor invades ampulla of Vater or sphincter of Oddi Tumor invades duodenal wall Tumor invades peripancreatic soft tissues Tumor invades retroperitoneal soft tissue Tumor invades other adjacent organs or structures Duodenum Ampulla Treatment Effect: No known presurgical therapy Lymphovascular Invasion: Present Perineural Invasion: Present MARGINS Margins: Pancreatic Neck / Parenchymal Margin: Uninvolved by invasive carcinoma and pancreatic high-grade intraepithelial neoplasia (Part C) Uncinate (Retroperitoneal / Superior Mesenteric Artery) Margin: Distance of Invasive Carcinoma from Margin: 1.0 mm Bile Duct Margin: Uninvolved by invasive carcinoma and high-grade intraepithelial neoplasia Proximal Margin (Gastric or Duodenal): Uninvolved by invasive carcinoma and high-grade dysplasia Distal Margin (Duodenal or Jejunal): Uninvolved by invasive carcinoma and high-grade dysplasia LYMPH NODES Regional Lymph Nodes: Number of Lymph Nodes Involved: 0 Number of Lymph Nodes Examined: 39 PATHOLOGIC STAGE CLASSIFICATION (pTNM, AJCC 8th Edition) Primary Tumor (pT): pT2 Regional Lymph Nodes (pN): pN0 ADDITIONAL FINDINGS Additional Findings: Pancreatic intraepithelial neoplasia Chronic pancreatitis 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 ALTAGRACIA CONWAY was presented at GI/Esophagus Tumor Board Conference Conference date: 02-Mar-2020 Presenting Provider(s): Dr. aNsim Guillaume Referring provider(s): (LIDIA Fuentes) Presenting location(s): [facility] Impression Presenting symptoms: s/p Whipple. Path demonstrates aggressive tumor. 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 Recommendations Other recommendations: Recommendation for patient to see Dr. Margaret Delgado. 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 0/39LNs. pT2 N0. (1) Primary cancer of head of pancreas Upfront Whipple procedure for resectable pancreas cancer (initial biopsies suspicious but nondiagnostic for malignancy). 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 Poor risk features and good performance status (although mild baseline diabetic neuropathy). He consented to FOLFIRINOXadjuvant therapy. General surgery referral for infusion port placement. Will start first cycle in 1-2 weeks. We will followup for toxicity visit cycle 1, day 8 to assess tolerance. All questions answered over this 60 min face to facevisit with additional 30 minutes for records review from and coordination of care from Dr. Guillaume. I would like to thank you very much for the courtesy of this referral. I will keep you up-to-date with this patient's progress. Should you have any questionsregarding the management of this patient, please do not hesitate to contact me. Sincerely, Margaret Delgado MD, FACP Medical Oncology (2) Diabetes mellitus with neuropathy Qualifiers: Diabetes mellitus type: type 2 Diabetes mellitus emt intermediate insulin use: unspecified halfway insulin use status Qualified Code(s): E11.40 - Type 2 diabetes mellitus with diabetic neuropathy, unspecified Followed by Dr. Dockery--improving control since surgery. Followup blood sugars closely while on chemotherapy. (3) History of hepatitis C S/p curative therapy with negative viral load in 2013. Follow liver function during FOLFIRINOX therapy. (4) Family history of pancreatic cancer Will refer for Medical Genetics consultation due to 2 first degree (mother and father) relatives with pancreatic cancer. - Chemo Plan Chemo Plan (Dose, Rate, Freq): FOLFIRINOX: Day 1: Oxaliplatin 85mg/m2 IV over 2 hours; Irinotecan 180mg/m2 IVover 90 minutes; Leucovorin 400mg/m2 IV over 90 minutes; followed by Day 1: Fluorouracil 400mg/m2 IV push; followed by Days 1-2 Fluorouracil 2,400 mg/m2 IV continuous infusion over 46 hours. Repeat cycle every 2 weeks x 12 cycles. Goal of Treatment: Curative - Time with Patient Coordination of Care & Counseling Time: Greater than 50% of time spent with patient was for coordination of care (as documented) and [id number] counseling of patient and/or family. Dictated By: Margaret Delgado MD DD/ [id number] Signed By: <Electronically signed by MD Margaret Delgado> 03/17/20 [address] [facility] Work Phone: [phone]) [phone] History general Narrative - Reported* Type Description Date Medical History cancer of pancreas, S/P Whipple's procedure (pancreaticoduodenectomy) 02/15/2020 Medical History DM2 Medical History Hepatitis C S/P curative Epclusa therapy 2013 Medical History Anxiety & depression Medical History HTN Medical History peripheral neuropathy Surgical History RIGHT BIG TOE REMOVED 2015 Surgical History Whipple's procedure (pancreatoduodenectomy) with cholecystectomy Feb 2020 [employer] Other 12-07-2020 History general Narrative - Reported* Type Description Date Medical History cancer of pancreas, S/P Whipple's procedure (pancreaticoduodenectomy) 02/15/2020 Medical History DM2 Medical History Hepatitis C S/P curative Epclusa therapy 2013 Medical History Anxiety & depression Medical History HTN Medical History peripheral neuropathy Medical History HYPONATREMIA Medical History PURE HYPERCHOLESTEROLEMIA Medical History PULMONARY HYPERTENSION, UNSPECIF IED Medical History STAGE 3b CHRONIC KIDNEY DISEASE Medical History MAJOR DEPRESSIVE DISORDER, RECUR RENT, MODERATE Medical History DRUG INDUCED POLYNEUROPATHY Medical History PERIPHERAL VASCULAR DISEASE, UNS PECIFIED Medical History UNSPECIFIED CIRRHOISIS OF LIVER Medical History REVENUE COORDINATOR CURRENT USE OF INSULIN Medical History ELEVATED PSA Medical History BENIGN PROSTATIC HYP ERPLASIA WITH LOWER URINARY TRACT SYMPTOMS Medical History CIRRHOSIS OF LIVER W ITHOUT ASCITES, UNSPECIFIED HEPATIC CIRRHOSIS TYPE Medical History ACID REFLUX Medical History JAUNDICE Medical History THC USE Medical History VARICOSE VEINS Surgical History RIGHT BIG TOE REMOVED 2015 Surgical History Whipple's procedure (pancreatoduodenectomy) with cholecystectomy Feb 2020 Hospitalization History SEE ABOVE Hospitalization History FALL AT HOME, TH EN WENT TO REHAB AT [facility] 04/2022 [employer] Other 12-07-2020 History general Narrative - Reported* Type Description Date Medical History cancer of pancreas, S/P Whipple's procedure (pancreaticoduodenectomy) 02/15/2020 Medical History DM2 Medical History Hepatitis C S/P curative Epclusa therapy 2013 Medical History Anxiety & depression Medical History HTN Medical History peripheral neuropathy Medical History HYPONATREMIA Medical History PURE HYPERCHOLESTEROLEMIA Medical History PULMONARY HYPERTENSION, UNSPECIF IED Medical History STAGE 3b CHRONIC KIDNEY DISEASE Medical History MAJOR DEPRESSIVE DISORDER, RECUR RENT, MODERATE Medical History DRUG INDUCED POLYNEUROPATHY Medical History PERIPHERAL VASCULAR DISEASE, UNS PECIFIED Medical History UNSPECIFIED CIRRHOISIS OF LIVER Medical History CARE HOME CURRENT USE OF INSULIN Medical History ELEVATED PSA Medical History BENIGN PROSTATIC HYP ERPLASIA WITH LOWER URINARY TRACT SYMPTOMS Medical History CIRRHOSIS OF LIVER W ITHOUT ASCITES, UNSPECIFIED HEPATIC CIRRHOSIS TYPE Medical History ACID REFLUX Medical History JAUNDICE Medical History THC USE Medical History VARICOSE VEINS Surgical History RIGHT BIG TOE REMOVED 2015 Surgical History Whipple's procedure (pancreatoduodenectomy) with cholecystectomy Feb 2020 Surgical History STIMULATOR PUT IN BACK FOR PAIN 11/2022 Hospitalization History SEE ABOVE Hospitalization History FALL AT HOME, TH EN WENT TO REHAB AT [facility] 04/2022 [employer] Other Evaluation + Plan note No data available for this section [facility] Future Appointments Appointment Date:10/11/2023 12:30:00 PM Scheduled Provider: Location:[facility] Surgical Services Appointment Type:ASU IV Antibiotic (FT) Appointment Date:10/12/2023 12:30:00 PM Scheduled Provider: Location:[facility] Services Appointment Type:ASU IV Antibiotic (FT) Appointment Date:10/13/2023 12:30:00 PM Scheduled Provider: Location:[facility] Services Appointment Type:ASU IV Antibiotic (FT) Appointment Date:10/14/2023 12:30:00 PM Scheduled Provider: Location:[facility] Appointment Type:ASU IV Antibiotic (FT) Appointment Date:10/15/2023 12:30:00 PM Scheduled Provider: Location:[facility] Services Appointment Type:ASU IV Antibiotic (FT) Appointment Date:10/16/2023 12:30:00 PM Scheduled Provider: Location:[facility] Services Appointment Type:ASU IV Antibiotic (FT) Appointment Date:10/17/2023 12:30:00 PM Scheduled Provider: Location:[facility] Services Appointment Type:ASU IV Antibiotic (FT) Appointment Date:10/18/2023 12:30:00 PM Scheduled Provider: Location:[facility] Services Appointment Type:ASU IV Antibiotic (FT) Appointment Date:10/19/2023 12:30:00 PM Scheduled Provider: Location:[facility] Services Appointment Type:ASU IV Antibiotic (FT) Appointment Date:10/20/2023 12:30:00 PM Scheduled Provider: Location:[facility] Services Appointment Type:ASU IV Antibiotic (FT) [facility] evaluation + Plan note Future Appointments Appointment Date:03/17/2024 09:00:00 AM Scheduled Provider: Location:[facility] Urology Surgical Services Appointment Type:Urology CALL PAT FT Appointment Date:03/24/2024 10:15:00 AM Scheduled Provider: Location:[facility] Surgical Services Appointment Type:Urology FT [facility] Evaluation + Plan note Future Appointments Appointment Date:05/04/2024 08:30:00 AM Scheduled Provider: Location:[facility] Appointment Type:URO Nurse Visit Appointment Date:05/29/2024 08:15:00 AM Scheduled Provider:Clarence SYED MD Location:[facility] Appointment Type:URO Office Visit [facility] evaluation noteNo InformationNort [employer] Other evaluation noteNo assessment information available [facility] Work Phone: evaluation note* Diagnosis Onset Date Resolution Status Abnormal kidney function chr onic Anemia complicating neoplastic disease chronic Anxiety chronic Asthma chronic Cancer cachexia chronic Cancer-related pain chronic Diabetes mellitus with neuropathy chronic Encounter for chemotherapy management chronic Major depressive disorder ch ronic 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 Primary cancer of head of pancreas chronic Hypokalemia due to excessive renal loss of potassium resolved Hypomagnesemia resolved Infestation by bed bug resol tianna Odynophagia resolved Tachypnea, not elsewhere classified resolved [facility] Work Phone: evaluation note* Diagnosis Onset Date Resolution Status Oral leukoplakia acute Abnormal kidney function chr onic Anemia complicating neoplastic disease chronic Anxiety chronic Asthma chronic Cancer cachexia chronic Cancer-related pain chronic Diabetes mellitus with neuropathy chronic Encounter for chemotherapy management chronic Major depressive disorder ch ronic 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 Primary cancer of head of pancreas chronic Hypokalemia due to excessive renal loss of potassium resolved Hypomagnesemia resolved Infestation by bed bug resol tianna Odynophagia resolved Tachypnea, not elsewhere classified resolved [facility] Work Phone: Evaluation note* Diagnosis Type 2 diabetes mellitus with diabetic polyneuropathy, with long-term current use of insulin (HCC)- Primary Chemotherapy-induced neuropathy (HCC) Polyneuropathy due to drugs Bilateral foot pain Pain in limb Bilateral hand pain Pain in limb [facility] Recurrent major depression in remission (HCC)- Primary Major depressive disorder, recurrent episode, in partial or unspecified remission Pain disorder with related psychological factors Type 2 diabetes mellitus with diabetic polyneuropathy, with long-term current use of insulin (HCC) [facility] Pre-op evaluation- Primary Preoperative examination, unspecified Hypertension, unspecified type Hyperlipidemia, unspecified hyperlipidemia type Current smoker Tobacco use disorder Type 2 diabetes mellitus with diabetic polyneuropathy, with long-term current use of insulin (HCC) Stage 3 chronic kidney disease, unspecified whether stage 3a or 3b CKD (HCC) Malignant neoplasm of pancreas, unspecified location of malignancy (HCC) Chronic obstructive pulmonary disease, unspecified COPD type (HCC) Pain disorder with related psychological factor Psychogenic pain, site unspecified Other chronic [facility] Diagnosis Type 2 diabetes mellitus with diabetic polyneuropathy, with long-term current use of insulin (HCC)- Primary Chemotherapy-induced neuropathy (HCC) Polyneuropathy due to drugs Bilateral foot pain Pain in limb [facility] Diagnosis Chemotherapy-induced neuropathy (HCC)- Primary Polyneuropathy due to drugs Pain disorders related to psychological factors Psychogenic pain, site unspecified Chemotherapy-induced neuropathy (HCC) Polyneuropathy due to drugs Pain disorders related to psychological factors Psychogenic pain, site unspecified [facility] Diagnosis Onset Date Resolution Status Hypoglycemic episode in patient with diabetes mellitus acute Abnormal kidney function chr onic Anemia complicating neoplastic disease chronic Anxiety chronic Asthma chronic Cancer cachexia chronic Cancer-related pain chronic Diabetes mellitus with neuropathy chronic Encounter for chemotherapy management chronic Major depressive disorder ch ronic 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 chronic Hypokalemia due to excessive renal loss of potassium resolved Hypomagnesemia resolved Infestation by bed bug resol tianna Odynophagia resolved Tachypnea, not elsewhere classified resolved [facility] Work Phone: Evaluation note* Diagnosis Lumbar paraspinal muscle spasm- Primary Other symptoms referable to back Spinal cord stimulator status Other postprocedural status Bilateral foot pain Pain in limb [facility] Diagnosis COPD exacerbation (CMS/HCC)- Primary Obstructive chronic bronchitis with exacerbation Simple chronic bronchitis (CMS/HCC) Simple chronic 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 (CMS/HCC) Diastolic dysfunction Unspecified heart disease documented in this encounter [facility]* Diagnosis Left wrist pain- Primary Pain in joint, forearm documented in this encounter [facility] HealthcareEvaluation note* Diagnosis Type 2 diabetes mellitus with diabetic polyneuropathy, with long-term current use of insulin ([facility])- Primary Bilateral foot pain Pain in limb Spinal cord stimulator status Other postprocedural status [facility] Diagnosis Onset Date Resolution Status CKD (chronic kidney disease) acute Lymph node enlargement acute Asthma chronic Cancer-related pain chronic Diabetes mellitus with neuropathy chronic Major depressive disorder ch ronic 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 chronic Hypoglycemic episode in patient with diabetes mellitus acute Abnormal kidney function chr onic Anemia complicating neoplastic disease chronic Anxiety chronic Asthma chronic Cancer cachexia chronic Cancer-related pain chronic Diabetes mellitus with neuropathy chronic Encounter for chemotherapy management chronic Major depressive disorder ch ronic 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 chronic Hypokalemia due to excessive renal loss of potassium resolved Hypomagnesemia resolved Infestation by bed bug resol tianna Odynophagia resolved Tachypnea, not elsewhere classified resolved Abdominal pain acute Encounter for palliative care acute Neuropathy acute Primary cancer of head of pancreas chronic [facility] Work Phone: Evaluation note* Diagnosis Onset Date Resolution Status Lymph node enlargement acute Asthma chronic Cancer-related pain chronic Diabetes mellitus with neuropathy chronic Major depressive disorder ch ronic 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 chronic Hypoglycemic episode in patient with diabetes mellitus acute Abnormal kidney function chr onic Anemia complicating neoplastic disease chronic Anxiety chronic Asthma chronic Cancer cachexia chronic Cancer-related pain chronic Diabetes mellitus with neuropathy chronic Encounter for chemotherapy management chronic Major depressive disorder ch ronic 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 chronic Hypokalemia due to excessive renal loss of potassium resolved Hypomagnesemia resolved Infestation by bed bug resol tianna Odynophagia resolved Tachypnea, not elsewhere classified resolved Abdominal pain acute Encounter for palliative care acute Neuropathy acute Primary cancer of head of pancreas chronic Anemia of renal disease acut e CKD (chronic kidney disease) stage 3, GFR 30-59 ml/min acute Hyperlipidemia acute [id number] acute Nephrolithiasis acute Secondary hyperparathyroidism acute Type 2 diabetes mellitus wit h diabetic chronic kidney disease acute Vitamin D deficiency acute [facility] Work Phone: Evaluation note* Diagnosis Onset Date Resolution Status Lymph node enlargement acute Asthma chronic Cancer-related pain chronic Diabetes mellitus with neuropathy chronic Major depressive disorder ch ronic 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 chronic Abdominal pain acute Encounter for palliative care acute Neuropathy acute Primary cancer of head of pancreas chronic Anemia of renal disease acut e CKD (chronic kidney disease) stage 3, GFR 30-59 ml/min acute Hyperkalemia acute Hyperlipidemia acute [id number] acute Nephrolithiasis acute Secondary hyperparathyroidism acute Type 2 diabetes mellitus wit h diabetic chronic kidney disease acute Vitamin D deficiency acute Hypoglycemic episode in patient with diabetes mellitus acute Abnormal kidney function chr onic Anemia complicating neoplastic disease chronic Anxiety chronic Asthma chronic Cancer cachexia chronic Cancer-related pain chronic Diabetes mellitus with neuropathy chronic Encounter for chemotherapy management chronic Major depressive disorder ch ronic 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 chronic Hypokalemia due to excessive renal loss of potassium resolved Hypomagnesemia resolved Infestation by bed bug resol tianna Odynophagia resolved Tachypnea, not elsewhere classified resolved Abdominal pain acute Neuropathy acute [facility] Work Phone: Evaluation note* Diagnosis Onset Date Resolution Status Lymph node enlargement acute Asthma chronic Cancer-related pain chronic Diabetes mellitus with neuropathy chronic Major depressive disorder ch ronic 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 chronic Abdominal pain acute Encounter for palliative care acute Neuropathy acute Primary cancer of head of pancreas chronic Anemia of renal disease acut e CKD (chronic kidney disease) stage 3, GFR 30-59 ml/min acute Hyperkalemia acute Hyperlipidemia acute [id number] acute Nephrolithiasis acute Secondary hyperparathyroidism acute Type 2 diabetes mellitus wit h diabetic chronic kidney disease acute Vitamin D deficiency acute Hypoglycemic episode in patient with diabetes mellitus acute Abnormal kidney function chr onic Anemia complicating neoplastic disease chronic Anxiety chronic Asthma chronic Cancer cachexia chronic Cancer-related pain chronic Diabetes mellitus with neuropathy chronic Encounter for chemotherapy management chronic Major depressive disorder ch ronic 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 chronic Hypokalemia due to excessive renal loss of potassium resolved Hypomagnesemia resolved Infestation by bed bug resol tianna Odynophagia resolved Tachypnea, not elsewhere classified resolved Abdominal pain acute Neuropathy acute Pancreatic cancer acute Abdominal pain acute Neuropathy acute Pancreatic cancer acute [facility] Work Phone: Evaluation note* Diagnosis Onset Date Resolution Status Lymph node enlargement acute Asthma chronic Cancer-related pain chronic Diabetes mellitus with neuropathy chronic Major depressive disorder ch ronic 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 chronic Abdominal pain acute Encounter for palliative care acute Neuropathy acute Primary cancer of head of pancreas chronic Anemia of renal disease acut e CKD (chronic kidney disease) stage 3, GFR 30-59 ml/min acute Hyperkalemia acute Hyperlipidemia acute [id number] acute Nephrolithiasis acute Secondary hyperparathyroidism acute Type 2 diabetes mellitus wit h diabetic chronic kidney disease acute Vitamin D deficiency acute Abdominal pain acute Neuropathy acute Pancreatic cancer acute Neuropathy acute Pancreatic cancer acute Hypoglycemic episode in patient with diabetes mellitus acute Abnormal kidney function chr onic Anemia complicating neoplastic disease chronic Anxiety chronic Asthma chronic Cancer cachexia chronic Cancer-related pain chronic Diabetes mellitus with neuropathy chronic Encounter for chemotherapy management chronic Major depressive disorder ch ronic 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 chronic Hypokalemia due to excessive renal loss of potassium resolved Hypomagnesemia resolved Infestation by bed bug resol tianna Odynophagia resolved Tachypnea, not elsewhere classified resolved [facility] Work Phone: Evaluation note* Diagnosis Onset Date Resolution Status Lymph node enlargement acute Asthma chronic Cancer-related pain chronic Diabetes mellitus with neuropathy chronic Major depressive disorder ch ronic 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 chronic Abdominal pain acute Encounter for palliative care acute Neuropathy acute Primary cancer of head of pancreas chronic Anemia of renal disease acut e CKD (chronic kidney disease) stage 3, GFR 30-59 ml/min acute Hyperkalemia acute Hyperlipidemia acute [id number] acute Nephrolithiasis acute Secondary hyperparathyroidism acute Type 2 diabetes mellitus wit h diabetic chronic kidney disease acute Vitamin D deficiency acute Abdominal pain acute Neuropathy acute Pancreatic cancer acute Neuropathy acute Pancreatic cancer acute Lymph node enlargement acute Asthma chronic Cancer-related pain chronic Diabetes mellitus with neuropathy chronic Major depressive disorder ch ronic 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 chronic Hypoglycemic episode in patient with diabetes mellitus acute Abnormal kidney function chr onic Anemia complicating neoplastic disease chronic Anxiety chronic Asthma chronic Cancer cachexia chronic Cancer-related pain chronic Diabetes mellitus with neuropathy chronic Encounter for chemotherapy management chronic Major depressive disorder ch ronic 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 chronic Hypokalemia due to excessive renal loss of potassium resolved Hypomagnesemia resolved Infestation by bed bug resol tianna Odynophagia resolved Tachypnea, not elsewhere classified resolved [facility] Work Phone: Evaluation note* Diagnosis Onset Date Resolution Status Anemia of renal disease acut e CKD (chronic kidney disease) stage 3, GFR 30-59 ml/min acute Hyperkalemia acute Hyperlipidemia acute [id number] acute Nephrolithiasis acute Secondary hyperparathyroidism acute Type 2 diabetes mellitus wit h diabetic chronic kidney disease acute Vitamin D deficiency acute Abdominal pain acute Neuropathy acute Pancreatic cancer acute Neuropathy acute Pancreatic cancer acute Lymph node enlargement acute Asthma chronic Cancer-related pain chronic Diabetes mellitus with neuropathy chronic Major depressive disorder ch ronic 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 chronic Hypoglycemic episode in patient with diabetes mellitus acute Abnormal kidney function chr onic Anemia complicating neoplastic disease chronic Anxiety chronic Asthma chronic Cancer cachexia chronic Cancer-related pain chronic Diabetes mellitus with neuropathy chronic Encounter for chemotherapy management chronic Major depressive disorder ch ronic 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 chronic Hypokalemia due to excessive renal loss of potassium resolved Hypomagnesemia resolved Infestation by bed bug resol tianna Odynophagia resolved Tachypnea, not elsewhere classified resolved [facility] Work Phone: Evaluation note* Diagnosis Onset Date Resolution Status Neuropathy acute Pancreatic cancer acute Lymph node enlargement acute Asthma chronic Cancer-related pain chronic Diabetes mellitus with neuropathy chronic Major depressive disorder ch ronic 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 chronic Hypoglycemic episode in patient with diabetes mellitus acute Abnormal kidney function chr onic Anemia complicating neoplastic disease chronic Anxiety chronic Asthma chronic Cancer cachexia chronic Cancer-related pain chronic Diabetes mellitus with neuropathy chronic Encounter for chemotherapy management chronic Major depressive disorder ch ronic 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 chronic Hypokalemia due to excessive renal loss of potassium resolved Hypomagnesemia resolved Infestation by bed bug resol tianna Odynophagia resolved Tachypnea, not elsewhere classified resolved Abdominal pain acute Pancreatic cancer acute 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 [facility] Work Phone: Evaluation note* Diagnosis Onset Date Resolution Status Abdominal pain acute Pancreatic cancer acute 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 Hypoglycemic episode in patient with diabetes mellitus acute Abnormal kidney function chr onic Anemia complicating neoplastic disease chronic Anxiety chronic Asthma chronic Cancer cachexia chronic Cancer-related pain chronic Diabetes mellitus with neuropathy chronic Encounter for chemotherapy management chronic Major depressive disorder ch ronic 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 chronic Hypokalemia due to excessive renal loss of potassium resolved Hypomagnesemia resolved Infestation by bed bug resol tianna Odynophagia resolved Tachypnea, not elsewhere classified resolved Lymph node enlargement acute Asthma chronic Cancer-related pain chronic Diabetes mellitus with neuropathy chronic Major depressive disorder ch ronic 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 [facility] Work Phone: Evaluation note* Diagnosis 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 (CMS/HCC) Type 2 diabetes mellitus with stage 3a chronic kidney disease, with long-term current use of insulin (HCC) (CMS/HCC) TED (obstructive sleep apnea) Obstructive sleep apnea (adult) (pediatric) Simple chronic bronchitis (CMS/HCC) Simple chronic bronchitis Essential hypertension (CMS/HCC) Unspecified essential hypertension Peripheral vascular disease (CMS/HCC) Unspecified peripheral vascular disease Pulmonary hypertension (CMS/HCC) Other chronic pulmonary heart diseases Congestive heart failure with left ventricular diastolic dysfunction, chronic (CMS/HCC) Cirrhosis of liver without ascites, unspecified hepatic cirrhosis type (CMS/HCC) GERD without esophagitis Esophageal reflux Pancreatic insufficiency (CMS/HCC) Other specified disease of pancreas Chronic hepatitis C without hepatic coma (CMS/HCC) Benign prostatic hyperplasia with urinary frequency Stage 3a chronic kidney disease (HCC) (CMS/HCC) Anxiety Anxiety state, unspecified Chronic depression (CMS/HCC) Status post amputation of great toe, right (CMS/HCC) Pure hypercholesterolemia (CMS/HCC) Pure hypercholesterolemia History of malignant neoplasm of pancreas Personal history of malignant neoplasm of other site in gastrointestinal tract Type 2 diabetes mellitus with diabetic polyneuropathy, with long-term current use of insulin (CMS/HCC) Type II diabetes mellitus with neurological manifestations (CMS/HCC) Type II or unspecified type diabetes mellitus with neurological manifestations, not stated as uncontrolled documented in this encounter [facility] HealthcareEvaluation note* Diagnosis Onset Date Resolution Status Abdominal pain acute Pancreatic cancer acute 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 Lymph node enlargement acute Asthma chronic Cancer-related pain chronic Diabetes mellitus with neuropathy chronic Major depressive disorder ch ronic 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 chronic Hypoglycemic episode in patient with diabetes mellitus acute Abnormal kidney function chr onic Anemia complicating neoplastic disease chronic Anxiety chronic Asthma chronic Cancer cachexia chronic Cancer-related pain chronic Diabetes mellitus with neuropathy chronic Encounter for chemotherapy management chronic Major depressive disorder ch ronic 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 chronic Hypokalemia due to excessive renal loss of potassium resolved Hypomagnesemia resolved Infestation by bed bug resol tianna Odynophagia resolved Tachypnea, not elsewhere classified resolved Neuropathy acute Pancreatic cancer acute Cancer-related pain chronic [facility] Work Phone: Evaluation note* Diagnosis Stage 3a chronic kidney disease (HCC) (CMS/HCC)- Primary Type II diabetes mellitus with neurological manifestations (CMS/HCC) Type II or unspecified type diabetes mellitus with neurological manifestations, not stated as uncontrolled Simple chronic bronchitis (CMS/HCC) Simple chronic bronchitis Essential hypertension (CMS/HCC) Unspecified essential hypertension Peripheral vascular disease (CMS/HCC) Unspecified peripheral vascular disease Pulmonary hypertension (CMS/HCC) Other chronic pulmonary heart diseases Cirrhosis of liver without ascites, unspecified hepatic cirrhosis type (CMS/HCC) GERD without esophagitis Esophageal reflux Chronic depression (CMS/HCC) Pure hypercholesterolemia (CMS/HCC) Pure hypercholesterolemia Vascular claudication (CMS/HCC) Pancreatic insufficiency (CMS/HCC) Other specified disease of pancreas Type 2 diabetes mellitus with diabetic neuropathy, unspecified (CMS/HCC) Type 2 diabetes, controlled, with neuropathy (CMS/HCC) Type II or unspecified type diabetes mellitus with neurological manifestations, not stated as uncontrolled Chemotherapy-induced neuropathy (CMS/HCC)- Primary Type II diabetes mellitus with neurological manifestations (CMS/HCC) Type II or unspecified type diabetes mellitus with neurological manifestations, not stated as uncontrolled Type 2 diabetes mellitus with diabetic polyneuropathy, with long-term current use of insulin (CMS/HCC) Simple chronic bronchitis (CMS/HCC) Simple chronic bronchitis Essential hypertension (CMS/HCC) Unspecified essential hypertension Peripheral vascular disease (CMS/HCC) Unspecified peripheral vascular disease Pulmonary hypertension (CMS/HCC) Other chronic pulmonary heart diseases Diastolic dysfunction Unspecified heart disease Cirrhosis of liver without ascites, unspecified hepatic cirrhosis type (CMS/HCC) GERD without esophagitis Esophageal reflux Pancreatic insufficiency (CMS/HCC) Other specified disease of pancreas Chronic hepatitis C without hepatic coma (CMS/HCC) Benign prostatic hyperplasia with urinary frequency Stage 3a chronic kidney disease (HCC) (CMS/HCC) Type 2 diabetes mellitus with hypoglycemia without coma, with long-term current use of insulin (CMS/HCC) Chronic depression (CMS/HCC) Anxiety Anxiety state, unspecified Status post amputation of great toe, right (CMS/HCC) Pure hypercholesterolemia (CMS/HCC) Pure hypercholesterolemia History of malignant neoplasm of pancreas Personal history of malignant neoplasm of other site in gastrointestinal tract COPD exacerbation (CMS/HCC)- Primary Obstructive chronic bronchitis with exacerbation Simple chronic bronchitis (CMS/HCC) Simple chronic 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 (CMS/HCC) Diastolic dysfunction Unspecified heart disease Medicare annual wellness visit, subsequent- Primary Type 2 diabetes mellitus with peripheral neuropathy (CMS/HCC) 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 (CMS/HCC) Simple chronic bronchitis Essential hypertension (CMS/HCC) Unspecified essential hypertension Peripheral vascular disease (CMS/HCC) Unspecified peripheral vascular disease Pulmonary hypertension (CMS/HCC) Other chronic pulmonary heart diseases Congestive heart failure with left ventricular diastolic dysfunction, chronic (CMS/HCC) Cirrhosis of liver without ascites, unspecified hepatic cirrhosis type (CMS/HCC) GERD without esophagitis Esophageal reflux Pancreatic insufficiency (CMS/HCC) Other specified disease of pancreas Chronic hepatitis C without hepatic coma (CMS/HCC) Benign prostatic hyperplasia with urinary frequency Stage 3a chronic kidney disease (HCC) (CMS/HCC) Type 2 diabetes mellitus with stage 3a chronic kidney disease, with long-term current use of insulin (HCC) (CMS/HCC) Chronic depression (CMS/HCC) Status post amputation of great toe, right (CMS/HCC) Pure hypercholesterolemia (CMS/HCC) Pure hypercholesterolemia History of malignant neoplasm of pancreas Personal history of malignant neoplasm of other site in gastrointestinal tract Current smoker Routine general medical examination at health care facility Routine general medical examination at a health care facility Type II diabetes mellitus with neurological manifestations (CMS/HCC) Type II or unspecified type diabetes mellitus with neurological manifestations, not stated as uncontrolled TED (obstructive sleep apnea) Obstructive sleep apnea (adult) (pediatric) Type 2 diabetes mellitus with peripheral neuropathy (CMS/HCC)- Primary TED (obstructive sleep apnea) Obstructive sleep apnea (adult) (pediatric) 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 (CMS/HCC) Simple chronic bronchitis Essential hypertension (CMS/HCC) Unspecified essential hypertension Peripheral vascular disease (CMS/HCC) Unspecified peripheral vascular disease Pulmonary hypertension (CMS/HCC) Other chronic pulmonary heart diseases Congestive heart failure with left ventricular diastolic dysfunction, chronic (CMS/HCC) Cirrhosis of liver without ascites, unspecified hepatic cirrhosis type (CMS/HCC) GERD without esophagitis Esophageal reflux Pancreatic insufficiency (CMS/HCC) Other specified disease of pancreas Chronic hepatitis C without hepatic coma (CMS/HCC) Benign prostatic hyperplasia with urinary frequency Type 2 diabetes mellitus with stage 3a chronic kidney disease, with long-term current use of insulin (HCC) (CMS/HCC) Stage 3a chronic kidney disease (HCC) (CMS/HCC) Anxiety Anxiety state, unspecified Chronic depression (CMS/HCC) Status post amputation of great toe, right (CMS/HCC) Pure hypercholesterolemia (CMS/HCC) Pure hypercholesterolemia History of malignant neoplasm of pancreas Personal history of malignant neoplasm of other site in gastrointestinal tract Screening for prostate cancer Special screening for malignant neoplasm of prostate 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 (CMS/HCC) Type 2 diabetes mellitus with stage 3a chronic kidney disease, with long-term current use of insulin (HCC) (CMS/HCC) TED (obstructive sleep apnea) Obstructive sleep apnea (adult) (pediatric) Simple chronic bronchitis (CMS/HCC) Simple chronic bronchitis Essential hypertension (CMS/HCC) Unspecified essential hypertension Peripheral vascular disease (CMS/HCC) Unspecified peripheral vascular disease Pulmonary hypertension ([facility]/HCC) Other chronic pulmonary heart diseases Congestive heart failure with left ventricular diastolic dysfunction, chronic (CMS/HCC) Cirrhosis of liver without ascites, unspecified hepatic cirrhosis type ([facility]/HCC) GERD without esophagitis Esophageal reflux Pancreatic insufficiency (CMS/HCC) Other specified disease of pancreas Chronic hepatitis C without hepatic coma ([facility]/HCC) Benign prostatic hyperplasia with urinary frequency Stage 3a chronic kidney disease (HCC) ([facility]/HCC) Anxiety Anxiety state, unspecified Chronic depression (CMS/HCC) Status post amputation of great toe, right (CMS/HCC) Pure hypercholesterolemia ([facility]/HCC) Pure hypercholesterolemia History of malignant neoplasm of pancreas Personal history of malignant neoplasm of other site in gastrointestinal tract Type 2 diabetes mellitus with diabetic polyneuropathy, with long-term current use of insulin ([facility]/HCC) Type II diabetes mellitus with neurological manifestations ([facility]/HCC) Type II or unspecified type diabetes mellitus with neurological manifestations, not stated as uncontrolled Diarrhea, unspecified type- Primary Neck pain Cervicalgia documented in this encounter [facility] HealthcareEvaluation note* Diagnosis Erectile dysfunction, unspecified erectile dysfunction type- Primary Abscess Cellulitis and abscess of unspecified site documented in this encounter [facility] HealthcareHospital Discharge instructions No data available for this section [facility] Additional Instructions If your symptoms return/worsen or you develop any further concerns or symptoms please see your doctor or return to the emergency department immediately.[facility] Work Phone: Hospital Discharge instructions Additional Instructions Finish your antibiotics. Follow up with your doctor. You may need to be referred to pain management.[facility] Work Phone: Hospital Discharge instructions Additional Instructions You may take [id number] Tylenol as needed for any pain or discomfort. Take the clindamycin 3 mg by mouth 4 times a day for the next 10 days. Follow-up with your primary care provider and oncologist as scheduled. Return here if your symptoms worsen or you develop fever, chills, nausea, vomiting, diarrhea.[facility] Work Phone: Progress note No data available for this section [facility] Author Dylan Vazquez [facility] November 25, 2022 2:02pm Note Date/Time November 21, 2022 12:29pm [facility] [place] [id number] Hem/Onc Follow Up Note - OP Signed Patient: Altagracia Conway MR#: [id number] : 1955 Acct:[id number] Age/Sex: 67 / M Type: REG RCR Copies to: DO Margaret Allen MD Jeffrey M Hardacre, MD~ Subjective Date/Time of Service: Date of Service: 11/21/2022 Time of Service: 12:28 Chief Complaint: Patient is here for a 6 month follow up with labs and scans forreview. No concerns voiced at this time. HPI: 11/21/2022: Altagracia presents for follow-up for his pancreatic cancer. He feels welloverall and is without new complaints. He is eating and drinking ok with stable weight. He denies black stool, n/v/d or abdominal pain. His neuropathy is unchanged. CT scans without evidence of recurrence or metastatic disease noted. CA 19-9 ok. His labs are overall stable with some increase in his creatinine. Henotes he follows up on this soon with Dr. Fleming. We will follow-up in 6 months, sooner as needed. 05/17/2022: Altagracia is here for 3 month followup exam, lab and imaging review. No significant abdominal pain or distention. Bowel habits are stable, no melena orhematochezia and stable weight. He does have ecchymosis over the face due to fall at home and dizziness. Labs are remarkable for blood glucose of 44 and 67 on labs within the past week. He is taking blood sugars twice daily (was 240 this am) and did not check blood sugar when he fell. I advised him to f/u with Dr. Dockery to adjust his diabetes regimen. If sugars are stable, consider holter monitor for dizziness. Tumor marker Ca 19-9 normal and no evidence of recurrence on CT Chest, Abdomen, and Pelvis. Stable neuropathy on Lyrica. Now that he is over 2 years from surgery, ok to extend followup with labs CBC, CMP, and CA 19-9 with exam in 6 months and defer restaging imaging to one year, sooner prn. Moderate complexity 35 minute followup to review labs, imaging, exam, coordinate f/u for fall/hypoglycemia. 02/15/2022: Altagracia is here for interval 3 month follow up. He continues to have these persistent, but infrequent episodes of spasm like pain in the mid abdomen/epigastric area. The pain has been present since her surgery and has notworsened in that time. He denies any changes in bowel habits, no significant diarrhea/constipation, fatigue, weight loss or new bony pain. Appetite and weight are stable. Stable neuropathy on Lyrica. Denies chest pain, cough, shortness of breath or dyspnea on exertion, no abdominal distention. He saw Dr. Shaikh for add on visit in December 2021 due to concerning oral plaque/oral lesion. He was referred to oral surgeon but patient did not keep appointment duethe surgeon not taking his insurance. Since that time, the lesion has since resolved - reports he has white spots that come and go over the years. He is acurrent, everyday smoker. 11/15/2021: 3 month followup for review of tumor markers and restaging CT. Denies chest or abdominal pain, distension, nausea/emesis, or weight loss. CA 19-9 in normal range 21. Restaging CT CAP without evidence of recurrence. Now 2 years from Whipple procedure. May f/u in 3 months with CBC, CMP, tumor markerCA 19-9 and exam only. Defer next imaging to 6 months unless new symptoms or rising tumor marker. Low complexity 25 min followup visit. 08/11/2021: 6 week followup--07/27/2021 CT scan at [facility] was concerning for recurrence (nonspecific mesenteric stranding) therefore he was sent for PET/CT and we are reviewing this today. No change in medical history--denies abdominalpain or distension, mild decrease of stool frequency (now 2-3 times daily) without nausea/emesis and stable weight. PET/CT shows no suspicious uptake and normal CA 19-9 tumor marker 14. No recurrence now 21 months from curative surgery and 12 months from completion of adjuvant therapy. Next f/u [address] CAP and exam/CA 19-9. 06/19/2021: Altagracia is here for routine follow up on surveillance for history of resected T2N0 pancreatic cancer. Clinically, he is stable. He had PFT and EGD done since his last visit to assess his complaints of intermittent epigastric pain and abdominal cramping. On his last CT scan dated 05/04/2021 there was mention of mild wall thickening of proximal small bowel of undetermined significance. He was referred to gastroenterology and underwent EGD on 05/30/2021 with essentially normal findings. The patient was started on dicyclomine 4 times daily and has follow-up with GI in the next month. He reports these episodes as intermittent periods of cramping with no associated diarrhea or obvious evidence of blood in the stool. He reports that he goes several days, even up to a week and does not have any issues with the cramping. Presently, the patient is doing well, reports normal appetite. He has gained approximately 4-5 pounds since his last visit. Overall, no other areas of new pain or acute changes. His last CA 19?9 was normal. 02/22/2021: SUZY Sands attempted to contact Altagracia with CT results but could not reach him after multiple attempts. When he was finally reached, he reported about one week history of recurrent epigastric pain which lasts about 5minutes and takes away my breath . Not associated with eating or at a certain time of day. No change in urine or stool frequency and nausea stable. His CT CAP showed no evidence of metastatic disease. I sent labs to determine if he has worsening LFTs or pancreatitis. If unremarkable, he already has an appointment with GI in March--we will try to have him seen sooner for EGD if possible. Until then he is prescribed Tramadol 50mg po q6h prn (#60, RF0). He may f/u as previously scheduled in 04/2021, sooner prn. 01/26/2021: Altagracia presents for routine 3 month followup for T2N0M0 resected pancreatic cancer to review symptoms and labs (tumor markers). He is noted on laboratories to have slight rise in his CA 19-9 from 26 ---> 40. CBC is relatively unremarkable, with improving anemia. CMP reveals worsening of baseline creatinine and GFR (GFR= 47), normal electrolytes and calcium. He has mild elevation of AST (55) and increased Alkaline phosphate (360) with normal bilirubin. He reports that his PCP has referred him to a buffing machine operator semiautomatic and he hasan upcoming appt in March 2021. 10/19/2020: One month followup to review restaging CT Chest Abdomen and Pelvis with tumor markers after completing all 12 cycles of FOLFIRINOX. Has numbness of bilateral hands all the time but this is not painful for him. No further suicidal ideation and has scheduled followup with his psychiatrist in November. No abdominal pain and regaining weight. Still has bedbug infestation--taking precautions for visits but no visualized bugs on exam today. Reviewed normal tumor marker CA 19-[address] without evidence of recurrence. Continue port flushes every 6 weeks. Next f/u for symptom review and tumor marker in 3 months, sooner if new symptoms. 09/19/2020: Altagracia is here to resume cycle 11-day 1 FOLFIRINOX tomorrow. He has had a dose delay of about 2 weeks for cycle 11 due to hospitalization on 1S 09/10-11/2020 for suicidal ideation. He reported feeling overwhelmed due to multiple psychosocial stressors including his physical illness with difficulty sleeping and depressed mood. He had increased dose of Remeron to 22.5 mg nightly, Effexor added for depression titrating up to 112.5 mg daily, and lorazepam was changed to Klonopin 1 mg 3 times daily. He was deemed safe for discharge home he notes that he feels much improved. He was diagnosed with bedbug infestation last month and we have performed room cleaning precautions. No current pruritusand there was chemotherapy related fatigue and mild peripheral neuropathy has been improved since he had his 2-week delay in therapy. He denies any current dyspnea with exertion. It feels stable to resume his 11th cycle (last 2 cycles)of FOLFIRINOX therapy tomorrow. I will send tumor markers CA 19-9 and coordinate follow-up CT chest abdomen pelvis for restaging in about 1 month prior to his next follow-up. 07/25/2020: Altagracia resumed FOLFIRINOX cycle 7 one week ago at 80% dose of all meds. He notes persistent dyspnea and does not feel improved with albuterol metered dose inhalers. I offered to delay chemo or reduce dose further, but he fears recurrence and wants to proceed. He requested IV nausea meds and hydration today. I will contact Dr. Dockery and recommend increasing Ativan totwice daily with his Abilify and Cymbalta. His PFTs are consistent with asthma--reversible obstruction. I'm adding budesonide (Pulmcort) twice daily to Albuterol MDIs. He cannot get an appointment with pulmonary medicine until 08 September. WBC 35,000--some of his anxiety may be due to growth factors. I will drop Zarxio next cycle and I will see him in 2 weeks after cycle 8. 07/13/2020: Altagracia is here for follow-up after delaying cycle 7 chemotherapy over the past week. He was due to be treated yesterday but has continued dyspnea with exertion and wishes to defer therapy another week. He was admitted overnight 1 week ago for his dyspnea and treated with antibiotics as well as acyclovir and nystatin swish and swallow for odynophagia which is slowly improving. He still reports that he has dyspnea with exertion and climbing stairs. On exam today he had some mild wheezing on the right and has not been using MDIs. I informed him that we will send for PFTs with lung volumes and DLCO as well as a trial of albuterol nebulizer in treatment room today and MDIs at home. He also has mild hypokalemia and hypomagnesemia. If he continues to improve steadily we may treat with overall 80% dose of all meds for FOLFIRINOX and I will see him in follow-up in 2 weeks. 07/06/2020: Altagracia would have been scheduled for cycle 7-day 1 on Tuesday 07/04, butthis was held when he presented with significant dyspnea on exertion and was sent to the emergency department. CT PE protocol was negative for pulmonary embolism and oxygen saturation was 98% on room air but he had significant tachypnea. He had no associated cough but reported a mouth sore on the left side of his tongue and severe odynophagia (10/10 pain). He has been using topical viscous lidocaine which is not resolved his symptoms. He was admitted and blood culture through his port showed a presumptive coagulase-negative staphthrough the port and no growth from peripheral culture through the wrist. Also had negative nasopharyngeal panel, negative coronavirus, and negative urine culture. He still has significant tachypnea with respiratory rate about 25 and heart rate 116. Saturation is 99% on room air. --We will continue to hold his chemotherapy. I am treating him with 1 L fluid normal saline, 2 mg IV morphine and will repeat every 15 to 20 minutes until pain less than 4 out of 10, and start vancomycin for 2-week course with dosing per pharmacy. This can be given as an outpatient. He does still have significant leukocytosis which could be due to prior Neulasta and received 1 unit of packed red blood cells yesterday for hospital discharge for hemoglobin 7.7. I will reassess him in 1 week to determine if he can resume chemotherapy. I am also prescribing acyclovir and Diflucan elixirs for his odynophagia. We will put in a palliative medicine consult. 06/20/2020: Altagracia is here for cycle 6-day 1 adjuvant FOLFIRINOX. He has persistent nausea without emesis (added compazine last week), poor appetite, andgeneralized weakness. He lost 4kg in the past 2 weeks. Also notes increased numbness of hands and feet. Potassium (2.7) and Magnesium (1.4) returned low today--hydrating with 1L Normal saline with 40meq KCl IV and 4g MgSO4 IV today. Send home with oral KCl 20meq bid. We will recheck K and Mg Saturday and dose reduce Oxaliplatin by 20% for next cycle. If continued nausea and fatigue--ok to delay therapy one week. Restaging CT without evidence of recurrence 06/15/2020. F/u 1 week if dose delay, 2 weeks if treated Saturday. 05/25/2020: Altagracia is here for cycle 4-day 1 adjuvant FOLFIRINOX. He notes that he has intermittent nausea but is well controlled on his current medications. He notes early satiety and was recently given additional boost to use once daily. He has lost about 4 kg over the last month. 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 Fatigue is stable and hedenies abdominal or back pain. Renal function has proved since starting therapy. He has moderate anemia but does not require transfusion. At this point will continue full dose FOLFIRINOX and restage with CT chest abdomen pelvis prior to cycle 6 as well as CA 19-9. Next follow-up in 1 month with labs. 04/25/2020: Altagracia commenced adjuvant FOLFIRINOX C1D1 on 04/12/2020--tolerated well. Denies fatigue, nausea, constipation/diarrhea, abdominal pain or cold-induced neuropathy. F/u labs unremarkable. He wishes to move infusion to if possible for cycle 2 due to an important business meeting tomorrow (will have to set up [facility] inpatient duckworth eval to d/c 5FU pump Saturday). Otherwise no concerns--f/u with me in one month for tumor markers and exam--continue 100% dose. PREVIOUS HISTORY: This is a now 66-year-old male who originally presented to [facility] with nausea, vomiting, diarrhea in October 2019 and was found to have elevated liver enzymes with total bilirubin 12.7, alkaline phosphatase 408, ALT 247, AST 197, lipase 161, white blood cell count of thousand 100, hemoglobin 12.9, platelets 139,000. INR 1.2 and hemoglobin A1c 9.1. MRCP showed extensiveextra and intrahepatic biliary dilatation up to 1.5 cm with a dilated pancreaticduct at 5 mm without discrete mass. ERCP 11/10/[address] Weaver revealed 2 mm stricture in the common bile duct, status post sphincterotomy, brushings, and placement of plastic stent. He was referred for EUS/ERCP on 12/07/[address] Margaret Malcolm with fine-needle biopsy showing atypical cells present, suspicious for carcinoma. At that time the biliary stent was partially occluded and there was a single severe biliary stricture in the lower third of the main bile duct (malignant appearing) status post dilation and brushing also showing atypical ductal cells with another placement of plastic pancreatic stent. His care was further delayed about 1 month when he was unable to be reached by phone to discuss further plan of care. He was seen by gastroenterology at [facility] in late December complaining of increased epigastric pain. He also was noted to have about 20 pounds of weight loss and worsening diabetes. January 10 he had repeat endoscopic ultrasound with a masslike region in the pancreatic head and again brushings showed atypical cells with fine-needle aspiration again with atypical cells suspicious for cancer. CT abdomen pelvis at [facility] 01/22/2020 revealed no distant metastatic disease. IMPRESSION: 1. Pancreatic head mass measuring 2.6 x 2.2 x 3.0 cm, with 180 degree abutment and contour abnormality of the patent SMV, with increasing pancreatic ductal dilatation, highly concerning for pancreatic adenocarcinoma. The superior mesenteric artery and celiac artery are not involved. Malignant involvement of a 9 mm peripancreatic lymph node is not excluded. 2. Status post common bile duct stent placement. Air within the stent, left greater than right pneumobilia, and air within the gallbladder all suggest stent patency. 3. Enlarged prostate. Please correlate with PSA. Due to nondiagnostic biopsies and resectable disease, he consented to upfront Whipple procedure (pancreatoduodenectomy) performed 02/15/2020. He tolerated surgery well and has returned to eating a normal diet. Diabetes is well controlled on his current regimen with insulin managed by Dr. Tiki Dockery at [facility]. 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 She does have some peripheral neuropathy from diabetes but this does not limit his activity. Given high risk features of perineural and lymphovascular invasion as well as anaplastic poorly differentiated histology, we discussed FOLFIRINOX adjuvant therapy which may commence after placement of infusion port in the next 1 to 2 weeks. Today we reviewed chemotherapy counseling for FOLFIRINOX (5-fluorouracil, leucovorin, irinotecan, oxaliplatin every 2 weeks for 12 cycles). Goal of therapy is curative. Common toxicities were reviewed to include myelosuppression, fatigue, nausea, vomiting, constipation, diarrhea, mouth sores, and alopecia. Other toxicities may include pneumonitis, cold-induced neuropathy, cumulative neuropathy, secondary malignancies, hepatic and renal toxicities. The patient signed informed consent and will follow-up as directed. Of note he does have a history of chronic hepatitis C status post treatment withEpclusa with complete response. He reports that his mother had pancreatic cancer and in her 60s as well as a father with pancreatic cancer who at age 82. Brother had lung cancer but no other family history of malignancies. He is an active smoker 1/2 pack/day since age 14 and continues actively smoking. He denies alcohol use quitting about 7 years ago when he was diagnosedwith hepatitis C. 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 DIAGNOSIS: 1. 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 2. Diabetes mellitus, insulin requiring with mild peripheral neuropathy 3. History of hepatitis C status post curative Epclusa therapy around 2013. 4. Family history of mother and father with pancreatic cancer 5. History of anxiety disorder and depression 6. Ongoing tobacco use 7. Unintentional weight loss - Summary of Therapies Summary of Therapies: 1. Whipple's procedure/pancreaticoduodenectomy 02/15/2020. 2. FOLFIRINOX therapy commenced 04/12/2020. FOLFIRINOX: Day 1: Oxaliplatin 85mg/m2 IV over 2 hours; Irinotecan 180mg/m2 IVover 90 minutes; Leucovorin 400mg/m2 IV over 90 minutes; followed by Day 1: Fluorouracil 400mg/m2 IV push; followed by Days 1-2 Fluorouracil 2,400 mg/m2 IV continuous infusion over 46 hours. Repeat cycle every 2 weeks x 12 cycles. --cycle 6 06/22/2020--Will dose reduce oxaliplatin 20% for grade 3 nausea/grade 2neuropathy/renal insufficiency --Cycle 7 07/04/2020--on hold for intractable dyspnea and oral mucositis, 07/13/2020 continuing to hold cycle 7 for another week per patient request for ongoing dyspnea. --Resumed cycle 7 07/20/2020: 80% dose for all meds. He had another 20% dose reduction of oxaliplatin and irinotecan for cycle 10. He had 2-week delay of cycle 11 for psychiatric hospitalization. --Resuming cycle 11 09/20/2020: 60% dose oxaliplatin and irinotecan, 80% dose of 5-fluorouracil/leucovorin. -- Last cycle (12) 10/03/2020. ROS Details: All systems reviewed & no additional complaints except as documented PMFSH - Medical History Medical History: Medical History (Last Reviewed 05/17/22 @ 18:26 by Margaret Delgado MD) Amputated toe of right foot Anxiety Blockage of a bile duct liver stents placed d/t blockage Depression Diabetes mellitus Family history of pancreatic cancer History of hepatitis C Hyperlipemia Hypertension Neuropathy Odynophagia Pancreatic cancer - Surgical History Surgical History: Surgical History (Last Reviewed 05/17/22 @ 18:26 by Margaret Delgado MD) History of cholecystectomy done at time of whipple History of gastrointestinal surgery whipple procedure 02/2020 - Family History Family History: Family History (Last Reviewed 05/17/22 @ 18:26 by Margaret Delgado MD) Father Pancreatic cancer Mother Pancreatic cancer - Social History Smoking Status: Current every day smoker Tobacco Type: cigarettes Substance Use Type: None Substance Abuse Comment: states I smoke marijuana every now and then Home Medications & Allergies Allergies No Known Allergies Allergy (Verified 11/19/22 10:36) Home Medications cholecalciferol (vitamin D3) 25 mcg (1,000 unit) tablet 50 mcg PO DAILY #30 tabs09/16/20 [Rx Confirmed 11/21/22] hydrochlorothiazide 25 mg tablet 25 mg PO DAILY 15 days #15 tabs 09/16/20 [Rx Confirmed 11/21/22] pregabalin 150 mg capsule 150 mg PO BID 06/19/21 [History Confirmed 11/21/22] amlodipine 5 mg tablet 5 mg PO DAILY 07/07/21 [History Confirmed 11/21/22] buspirone 30 mg tablet 30 mg PO BID 07/07/21 [History Confirmed 11/21/22] insulin degludec 100 unit/mL (3 mL) subcutaneous pen (Tresiba FlexTouch U-100 insulin) 18 unit subcut DAILY 07/07/21 [History Confirmed 11/21/22] insulin lispro 100 unit/mL subcutaneous pen (Humalog KwikPen (U-100) Insulin) 8 unit subcut TID 07/07/21 [History Confirmed 11/21/22] levomilnacipran 20 mg capsule,24 hr,extended release (Fetzima) 20 mg PO DAILY 07/07/21 [History Confirmed 11/21/22] lisinopril 5 mg tablet 5 mg PO DAILY 07/07/21 [History Confirmed 11/21/22] lorazepam 1 mg tablet (Ativan) 1 mg PO TID 07/07/21 [History Confirmed 11/21/22] wtoiqv-vxcnpzat-rtiskfr 36,000-114,000-180,000 unit capsule,delay rel (Creon) 1 cap PO TID 11/15/21 [History Confirmed 11/21/22] mirtazapine 30 mg tablet 30 mg PO DAILY 11/15/21 [History Confirmed 11/21/22] fluconazole 100 mg tablet (Diflucan) 100 mg PO DAILY #11 tabs 02/15/22 [Rx Confirmed 11/21/22] Objective - Height/Weight Height/Weight: Height 6 ft 2 in Weight 107.32 kg BSA for Today's Weight 1.93 - Vital Signs Vital Signs: 11/21/22 10:50 Temperature 98.1 F Pulse Rate [Left Brachial] 74 Respiratory Rate 20 Blood Pressure [Left Arm] 128/73 02 Sat by Pulse Oximetry 96 Oxygen Delivery Method Room Air - Pain Tongue Pain Intensity: 0 Left Flank Pain Intensity: 10 - Distress Screening Distress Screen Results: RN Distress Screening Start: 04/11/20 13:45 Freq: Q30D Status: Active Protocol: Document 12/28/21 10:17 KB (Rec: 12/28/21 10:19 KB [id number]) Distress Screening Distress score of 4 or more discussed Yes with patient? Distress screening follow up: Raising 5 grandkids, increased anxiety. Upset about referral to oral surgeon, aware it is in process. Denies needs at this time. Physical Exam Narrative: GENERAL APPEARANCE: Well developed, well nourished, in no acute distress. SKIN: Inspection of the skin reveals no rashes, ulcerations or petechiae. HEENT: The sclerae were anicteric and conjunctivae were pink and moist. EOMI, PERRLA. The oral mucosa is moist and clear: there is no lesion or white exudative patches. NECK: Supple and symmetric. There was no thyroid enlargement, and no tenderness,or masses were felt. LUNGS: Normal breath sounds on auscultation without rales, rhonchi, or crackles. CARDIOVASCULAR: S1 and S2, regular rate and rhythm, no murmurs, gallops, rubs. ABDOMEN: Soft, nontender, bowel sounds normal. No hepatosplenomegaly. No mass palpated. LYMPH NODES: No lymphadenopathy was appreciated in the neck, axillae or groin. MUSCULOSKELETAL: Gait was normal. There was no tenderness or effusions noted. Muscle strength and tone were normal. EXTREMITIES: No cyanosis, clubbing or edema. NEUROLOGIC: Alert and oriented x 3. Normal affect. Gait was normal. Sensation totouch was normal. Results - Labs Labs: Diagram of Most Recent CBC and CMP 11/19/22 10:14 11/19/22 10:14 Labs - Last 7 Days 11/19/22 10:14: CA 19-9 Antigen 14 11/19/22 10:14: Corrected WBC 8.9, Uncorrected WBC Count 8.9, RBC 3.74 L, Hgb 11.0 L, Hct 32.6 L, MCV 87.3, MCH 29.5, MCHC 33.8, RDW 14.0, Plt Count 216, MPV 8.4, Neut % (Auto) 67.7, Lymph % (Auto) 18.9, Alfalfa % (Auto) 6.9, Eos % (Auto) 5.7, Baso % (Auto) 0.8, Nucleat RBC Rel Count 0.0, Neut # (Auto) 6.0, Lymph # (Auto) 1.7, Alfalfa # (Auto) 0.6, Eos # (Auto) 0.5 H, Baso # (Auto) 0.1 11/19/22 10:14: PHA Creatinine Clear 53.15, Sodium 136, Potassium 4.8, Chloride 104, Carbon Dioxide 25.6, Anion Gap 11.2, BUN 42 H, Creatinine 1.79 H, Est GFR (CKD- EPI) 41.019, Glucose 157 H, Calcium 9.4, Total Bilirubin 0.3, AST 40 H, ALT43, Alkaline Phosphatase 209 H, Total Protein 7.4, Albumin 4.0, Globulin 3.4, Albumin/Globulin Ratio 1.2 Assessment and Plan - TNM Staging Stagin02/15/2020: 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 (1) Primary cancer of head of pancreas Upfront Whipple procedure for resectable pancreas cancer (initial biopsies suspicious but nondiagnostic for malignancy). 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 Poor risk features and good performance status (although mild baseline diabetic neuropathy). He consented to FOLFIRINOXadjuvant therapy. General surgery referral for infusion port placement. 04/25/2020: No significant toxicities at followup visit (cycle 1 day 1 was 04/12/2020). We will continue 100% dose FOLFIRINOX and follow closely for hyperglycemia and neuropathy symptoms due to his baseline diabetic neuropathy. 05/25/2020: Patient has increased fatigue, early satiety, and weight loss. Adding Boost at least twice daily and encouraging use of Imodium and Zofran regularly. Okay for cycle 4 today with stable labs. Restaging CT chest abdomenpelvis will be scheduled prior to cycle 6 in 1 month I will see him at that time. 06/20/2020: Worsening fatigue, nausea, poor appetite, and weight loss. Worsening neuropathy. Decrease oxaliplatin by 20%, replete low potassium and magnesium. No evidence of recurrence on CT CAP. Reassess Saturday whether K and Mg returned today normal and OK to resume FOLFIRINOX. F/u 1 week if dose delay, 2 weeks if tx. 07/06/2020: Admitted 07/04/2020 for work-up of sudden onset tachypnea with normal oxygen saturation. CT PE protocol was negative for pulmonary embolism or infiltrate. Lactic acid was negative for sepsis and VBG showed respiratory alkalosis with metabolic acidosis. Blood cultures did show coagulase negative staph from infusion port but negative on peripheral culture. He has severe odynophagia andmouth sore. For now I am hydrating him with 1 L normal saline, holding chemotherapy until resolution of toxicities. We will start vancomycin 1.5 g daily (would calculate to 1 g twice daily but patient does not wish to return twice daily for infusions). We will reassess Saturday to see if he should continue 2 weeks of vancomycin. Also giving IV morphine 2 mg now and redose every 15 to 20 minutes until pain less than 4/10. Adding Diflucan elixir and acyclovir elixir for his odynophagia. Consult to palliative medicine for further titration of outpatient pain medication. Follow-up in 1 week to review symptoms and to determine if he is stable to resume adjuvant FOLFIRINOX therapy with likely 50% dose reduction of 5-FU leucovorin. 07/13/2020: Negative blood cultures and CT PE protocol negative for pulmonary embolism or infiltrate. His dyspnea persists despite levofloxacin as well as acyclovir and nystatin for his prior odynophagia. His pain control is stable. I am sending him for pulmonary evaluation with full PFTs and lung volumes with DLCO as well as trial of albuterol nebulizer with electrolyte repletion today and sending with Eladio WUI. Follow-up with me in 2 weeks and we will consider resuming FOLFIRINOX at 80% dose overall of all drugs at his next follow-up if symptoms remain stable. Otherwise he may stop adjuvant therapy and continue observation only for resected pancreas cancer with anaplastic carcinoma. 07/25/2020: Resumed cycle 7 FOLFIRINOX at 80% dose of all meds--continued nausea, fatigue, and anxiety with subjective dyspnea. WBC 35,000 which may be increased response to Zarxio. No evidence of infection. PFTs consistent with asthma (will address below). Drop Zarxio with day 8 CBC and followup next cycle. Patient declines further dose reduction of FOLFIRINOX but will get Aloxi/Hydration today. 08/10/2020: Stable fatigue and nausea for cycle 7 FOLFIRINOX at 80% dose of all meds--continued nausea, fatigue, and anxiety with subjective dyspnea. WBC now 7000--dropped growth factors to see if this would relieve nausea and dyspnea. Pulmonary follow-up later this month and restaging CT scans in early September. Continue current dose for remaining cycles of FOLFIRINOX. 09/19/2020: 2-week delay for cycle 11 FOLFIRINOX with now 60% dose of oxaliplatinand irinotecan, 80% for all other medications. Stable grade 1 peripheral neuropathy. Hospitalized for suicidal ideation 09/10-11/2020. Symptoms now with improved control since increasing Remeron, adding Effexor, and changing Ativan to Klonopin. He has ongoing follow-up with psychiatry and dyspnea is improved. 10/19/2020: Completed 12 cycle FOLFIRINOX with last cycle 10/03/2020. CA 19-[address] CAP without evidence of recurrence. Followup neuropathy on current antidepressant medications and f/u with palliative medicine (should improve off chemotherapy) Next follow-up with me in 3 months after completion of FOLFIRINOX for exam and restaging tumor marker CA 19-9, sooner prn. We will review survivorship template at next visit. 01/26/2021: Altagracia is seen for routine 3-month follow-up for resected pancreas cancer (T2N0); s/p completion of 12 cycles FOLFIRINOX adjuvant chemotherapy, which concluded on 10/03/2020. Post treatment CT scans showed no evidence of recurrence in October 2020. He is here today for physical exam, ROS, and review of labs (CBC,CMP and CA 19-9). Clinically the patient looks well; he has gained > 30 pounds since his last visit 3 months ago and reports no new constitutional symptoms. Appetite has improved significantly; as well as, taste and fatigue. Hespecifically denies any issues with headaches, fever/chills, recent/recurrent infections, night sweats, weight loss, chest pain, cough, shortness of breath, nausea/vomiting, abdominal pain, diarrhea/constipation, new bony pain, skin rash, lymphadenopathy or lower extremity edema. His only complaint today is continued peripheral neuropathy (hands/feet) - Grade 1 (had peripheral neuropathy at baseline due to long standing diabetes). He is currently taking Gabapentin 400 mg daily with no improvement. --He is noted on laboratories to have slight rise in his CA 19-9 from 26 ---> 40. CBC is relatively unremarkable, with improving anemia. CMP reveals worseningof baseline creatinine and GFR (GFR= 47), normal electrolytes and calcium. He has mild elevation of AST (55) and increased Alkaline phosphate (360) with normal bilirubin. He reports that his PCP has referred him to a buffing machine operator semiautomatic andhe has an upcoming appt in March 2021. 02/22/2021: Due to rising CA 19-9 level, SUZY Barrios ordered CT chest, abdomen/pelvis. She was unable to reach him for phone followup, but when he wascontacted he reported recurrent brief episodes of unexplained epigastric pain. No progression on restaging images, but he will see gastroenterology for EGD. Tramadol 50mg po q6h prn for pain. I sent CBC, CMP, amylase, lipase and will contact him with results. 04/26/2021: Midchest pain--pending stress test and EGD for further evaluation. 05/05/2021: Continued mid chest pain with negative stress test. Contacted GI forboth EGD and push enteroscopy due to small bowel wall thickening on restaging CTchest and pelvis. Otherwise no evidence of recurrence of pancreatic cancer and tumor marker is still normal. We will continue every 3-month surveillance with exam and labs and defer imaging unless rising CEA or new symptoms. Peripheral neuropathy is now well controlled on current regimen but he is following with palliative medicine, consider acupuncture. 06/19/2021: Intermittent, transient episodes of upper abdominal pain and cramping; with some residual numbness ; episodes are very infrequent?he sometimes can go an entire week without having an episode. He has no associateddiarrhea. He has since had normal EGD and relatively normal PFTs following his last appointment. His last CA 19?9 was within normal range. There was no evidence of recurrence on EGD, as last CT scan dated 05/04/2021 showed mild thickening in the small intestine of indeterminate etiology. -We will continue routine follow-up; surveillance for pancreatic cancer. The patient has no other changes in ROS and no new areas of pain. Both his appetiteand weight are stable, of note he has gained approximately 4-5 pounds since his last visit. 08/11/2021: CT abdomen/pelvis at [facility] in mid July showed mesenteric stranding suspicious for recurrence. PET/CT from 08/09/2021 without FDG avidity and CA 19-9normal (14). Images/reports reviewed with patient--negative for recurrence. -Continue every 3 month follow-up with CBC, CMP and CA 19?9; with CT chest/abdomen and pelvis with IV and p.o. contrast prior to next follow-up. Mod complexity 25 min. 11/15/2021: Restaging CT Chest Abdomen Pelvis without recurrence. 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 F/u CBC, CMP and CA 19-9 only in 3 months with exam. Defer CT Chest/Abdomen/Pelvis to 6 months, sooner as needed. 02/15/2022: Altagracia is here for interval 3 month follow up. He continues to have these persistent, but infrequent episodes of spasm like pain in the mid abdomen/epigastric area. The pain has been present since her surgery and has notworsened in that time. He denies any changes in bowel habits, no significant diarrhea/constipation, fatigue, weight loss or new bony pain. Appetite and weight are stable. Stable neuropathy on Lyrica. Denies chest pain, cough, shortness of breath or dyspnea on exertion, no abdominal distention. - patient is concerned about these episode of intermittent spasm like pain in the epigastric area. They are very infrequent and last anywhere from 30 seconds - 3 minutes. Do not seem to be associated with anything in particular. Etiology unclear; although sounds spasm like or neuropathic in nature. No evidence of progression on recent imaging, stable symptoms and stable laboratories with mostrecent CA 19-9 of 28. - previous stress test work up. Encouraged patient to document episodes and timing of episodes to review at next follow up. - he is compliant with Creon; could be post surgical related. - continue every 3 month follow up. Next follow up with imaging CT chest, abdomen/pelvis, along with routine labs and CA 19-9. 05/17/2022: Altagracia felt lightheaded and fell at home yesterday. Noted to have hypoglycemia on labs prior to CT CAP showing no evidence of recurrence of pancreas cancer. CA 19-9 still normal. Setting up f/u with primary care to adjust insulin dosing for glucose 44 on labs. F/u for pancreas cancer now extended to every 6 months now that he is over 2 [address] procedure[address] may be extended to annual--sooner if new symptoms or rising tumor markers. Moderate complexity 35 minute f/u visit. 11/21/2022: He is doing well overall without new concerns. CT scans without evidence of recurrence or metastatic disease noted. CA 19-9 stable as well as remaining labs. He will follow-up in [address] Delgado for exam, labs and will repeat imaging in 1 year, sooner as needed. He is in agreement with this plan and has no questions. (2) Hypoglycemic episode in patient with diabetes mellitus (3) Diabetes mellitus with neuropathy Qualifiers: Diabetes mellitus type: type 2 Diabetes mellitus emt intermediate insulin use: unspecified halfway insulin use status Qualified Code(s): E11.40 - Type 2 diabetes mellitus with diabetic neuropathy, unspecified Followed by Dr. Dockery--notifying of hypoglycemia with fall and adjustment of insulin. 11/21/2022: No new concerns noted. 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 Stable, chronic neuropathy-on max dose Lyrica 225 mg p.o. twice daily?prescribedby Dr. Dockery; is no longer following palliative medicine on a regular basis. --Address hypoglycemic episode 05/16/[address] Dockery as noted above. 11/21/2022: Stable neuropathy (5) Cancer-related pain Recent recurrent epigastric pain/recent chest pain as noted above--completed restaging imaging CT CAP (05/04/2021); negative stress test; and mild emphysema on PFT. Completed EGD with gastroenterology as noted above, on 05/30/2021 with normal findings and no obvious evidence of recurrence. No pain on 11/15/2021 examand no recurrence by imaging. Defer next imaging to 6 months. - 05/17/2022: no new issues. Continue Lyrica for neuropathy 11/21/2022: No pain noted at today's visit. (6) Abnormal kidney function Creatinine stable somewhat stable; 1.52-- follow up in 6 months. 11/21/2022: follows with Dr. Fleming, to see next month (7) Major depressive disorder Qualifiers: Major depression episode severity: moderate The patient was discharged home in early September after hospitalization for depression and suicidal ideation. He reports symptoms are much improved and anxiety is better since change of medications. He felt hopeless with anhedonia and passive suicidal ideation but no hallucinations. He now has no active suicidal ideation and had not had prior psychiatric hospitalizations, suicide attempts, or family history of this. No use of alcohol or illicit drugs. Following with primary care Dr. Tiki Dockery who is primary prescriber of pain medication. He now has follow-up with Dr. Bee of psychiatry as well. We will continue to follow closely after completion of adjuvant chemotherapy. Denies SI/HI. 11/21/2022: No concerns noted. (8) Asthma Qualifiers: Asthma severity: moderate Asthma persistence: persistent Negative evaluation for PE, treated for coag negative staph infection therefore he completed a course of levofloxacin. He is not hypoxic but did have some mildwheezing on exam today persistent dyspnea with exertion. He did not feel improved after albuterol MDI use at home (although only using about once daily). PFTs show reversible obstruction. Continue albuterol MDI 4 times daily and added Pulmocort MDI twice daily. Following with pulmonary. (9) Oral leukoplakia Patient showed me the lesion which is on the left lateral edge of the tongue. It looks grossly like oral leukoplakia. We will refer him to oral surgeon for assessment and biopsy. I instructed him to keep his previously scheduled appointment as surveillance on his pancreatic cancer He saw Dr. Shaikh for add on visit in December 2021 due to concerning oral plaque/oral lesion. He was referred to oral surgeon but patient did not keep appointment due the surgeon not taking his insurance. Since that time, the lesion has since resolved - reports he has white spots that come and go over theyears. He is a current, everyday smoker. - no significant findings on exam today - reassess at next follow up visit. 11/21/2022: No new findings on exam today. Patient denies recent recurrence. - Chemo Plan Chemo Plan (Dose, Rate, Freq): Completed adjuvant FOLFOX therapy in late September 2020. Number of Cycles: 12 Goal of Treatment: Curative - Time with Patient Time Spent with Patient (Follow Up Visit): 35 minutes - Mod complexity f/u exam,tumor marker, restaging CT, address fall and hypoglycemia Coordination of Care & Counseling Time: Greater than 50% of time spent with patient was for coordination of care (as documented) and [id number] counseling of patient and/or family. Dictated By: Dylan Vazquez APRN DD/ 1228 Signed By: <Electronically signed by NYLA Vazquez> 11/25/22 [address] [facility] Work Phone: Reason for referral (narrative)* Consultation (Routine) - Pending Review Specialty Diagnoses / Procedures Referred By Tiffanie t Referred To Contact Pulmonary Disease / Pulmonology Diagnoses Simple chronic bronchitis (CMS/HCC) Procedures [place] OFFICE/OUTPATIENT [facility] 60 MINUTES Tiki Dockery DO [address] [place] [address] Hui Raygoza DO [address] [facility] [place] [address] Referral ID Status Reason Start Date Expiration Date Visits Requested Visits Authorized [id number] Pending Review Specialty Services Required 04/18/2023 10/15/2023 1 1 [facility] Healthcare Summary Purpose Family History Mother Name Dates Details Family history of Pancreatic carcinoma(157.9, C25.9) Status:Active Father Name Dates Details Family history of Pancreatic carcinoma(157.9, C25.9) Status:Active Brother Name Dates Details Family history of lung cance r(V16.1, Z80.1) Status:Active Mother Name Dates Details Family history of Pancreatic carcinoma(157.9, C25.9) Status:Active Father Name Dates Details Family history of Pancreatic carcinoma(157.9, C25.9) Status:Active Brother Name Dates Details Family history of lung cance r(V16.1, Z80.1) Status:Active Mother Name Dates Details Family history of Pancreatic carcinoma(157.9, C25.9) Status:Active Father Name Dates Details Family history of Pancreatic carcinoma(157.9, C25.9) Status:Active Brother Name Dates Details Family history of lung cance r(V16.1, Z80.1) Status:Active Relationship Condition Age at Onset Recorded Date/T yuni father Malignant neoplasm of pancreas Unknown Not Specified Malignant neoplasm of pancreas Unknown Relationship Condition Age at Onset Recorded Date/T yuni father Malignant neoplasm of pancreas Unknown Not Specified Malignant neoplasm of pancreas Unknown brother Malignant neoplasm Unknown father Unknown Malignant neoplasm Unknown Hypertension Unknown family member Unknown Not Specified Malignant neoplasm Unknown Unknown Relationship Condition Age at Onset Recorded Date/T yuni father Malignant neoplasm of pancreas Unknown mother Malignant neoplasm of pancreas Unknown brother Malignant neoplasm Unknown father Unknown Malignant neoplasm Unknown Hypertension Unknown family member Unknown mother Malignant neoplasm Unknown Unknown Advance Directives Advance Directive Response Recorded Date/ Time Advance Directives No December 24, 2016 5:55pm Advance Directive Response Recorded Date/ Time Advance Directives No December 24, 2016 4:55pm Chief Complaint and Reason for Visit Chief Complaint K74.60 Z86.19 Cirrhosis, Hx of Pancreatic Cancer, Hx of Hep C i73.9 C25.9 Chief Complaint K74.60 Z86.19 Cirrhosis, Hx of Pancreatic Cancer, Hx of Hep C i73.9 C25.9 Pancreatic R06.00. Reason for Visit Abnormal kidney func tion Anemia complicating neoplastic disease Anxiety Asthma Cancer cachexia Cancer-related pain Diabetes mellitus with neuropathy Encounter for chemotherapy management Major depressive disorder Peripheral neuropathy due to chemotherapy Primary cancer of head of pancreas Hypokalemia due to excessive renal loss of potassium Hypomagnesemia Infestation by bed bug Odynophagia Tachypnea, not elsewhere classified Chief Complaint i73.9 C25.9 Pancreatic R06.00. Reason for Visit Abnormal kidney func tion Anemia complicating neoplastic disease Anxiety Asthma Cancer cachexia Cancer-related pain Diabetes mellitus with neuropathy Encounter for chemotherapy management Major depressive disorder Peripheral neuropathy due to chemotherapy Primary cancer of head of pancreas Hypokalemia due to excessive renal loss of potassium Hypomagnesemia Infestation by bed bug Odynophagia Tachypnea, not elsewhere classified Chief Complaint Pancreatic R06.00. Reason for Visit Oral leukoplakia Abnormal kidney function Anemia complicating neoplastic disease Anxiety Asthma Cancer cachexia Cancer-related pain Diabetes mellitus with neuropathy Encounter for chemotherapy management Major depressive disorder Peripheral neuropathy due to chemotherapy Primary cancer of head of pancreas Hypokalemia due to excessive renal loss of potassium Hypomagnesemia Infestation by bed bug Odynophagia Tachypnea, not elsewhere classified Chief Complaint Pancreatic R06.00. 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 Patient here at request of Dr. 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 Patient here at request of Dr. 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 Primary cancer of head of pancreas Hypokalemia due to excessive renal loss of potassium Hypomagnesemia Infestation by bed bug Odynophagia Tachypnea, not elsewhere classified Abdominal pain Encounter for palliative care Neuropathy Primary cancer of head of pancreas Anemia of renal disease CKD (chronic kidney disease) stage 3, GFR 30-59 ml/min Hyperlipidemia [id number] Nephrolithiasis Secondary hyperparathyroidism Type 2 diabetes mellitus with diabetic chronic kidney disease Vitamin D deficiency Chief Complaint R60.0 R59.0 trouble breathing, hx copd sob, toes are painful sob,fever 1 year follow up visit Patient here at request of Dr. Delgado RENAL 6 month f/u Pancreatic R06.00. 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 Primary cancer of head of pancreas Abdominal pain Encounter for palliative care Neuropathy Primary cancer of head of pancreas Anemia of renal disease CKD (chronic kidney disease) stage 3, GFR 30-59 ml/min Hyperkalemia Hyperlipidemia [id number] Nephrolithiasis Secondary hyperparathyroidism Type 2 diabetes mellitus with diabetic chronic kidney disease Vitamin D deficiency Hypoglycemic episode in patient with diabetes mellitus Abnormal kidney function Anemia complicating neoplastic disease Anxiety Asthma Cancer cachexia Cancer-related pain Diabetes mellitus with neuropathy Encounter for chemotherapy management Major depressive disorder 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 Delgado RENAL 6 month f/u Pancreatic R06.00. 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 Primary cancer of head of pancreas Abdominal pain Encounter for palliative care Neuropathy Primary cancer of head of pancreas Anemia of renal disease CKD (chronic kidney disease) stage 3, GFR 30-59 ml/min Hyperkalemia Hyperlipidemia [id number] Nephrolithiasis Secondary hyperparathyroidism Type 2 diabetes mellitus with diabetic chronic kidney disease Vitamin D deficiency Hypoglycemic episode in patient with diabetes mellitus Abnormal kidney function Anemia complicating neoplastic disease Anxiety Asthma Cancer cachexia Cancer-related pain Diabetes mellitus with neuropathy Encounter for chemotherapy management Major depressive disorder 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 Delgado RENAL 6 month f/u Patient here to discuss current pain 2 mth f/u after US Pancreatic R06.00. 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 Primary cancer of head of pancreas Abdominal pain Encounter for palliative care Neuropathy Primary cancer of head of pancreas Anemia of renal disease CKD (chronic kidney disease) stage 3, GFR 30-59 ml/min Hyperkalemia Hyperlipidemia [id number] Nephrolithiasis Secondary hyperparathyroidism Type 2 diabetes mellitus with diabetic chronic kidney disease Vitamin D deficiency Abdominal pain Neuropathy Pancreatic cancer Neuropathy Pancreatic cancer Hypoglycemic episode in patient with diabetes mellitus Abnormal kidney function Anemia complicating neoplastic disease Anxiety Asthma Cancer cachexia Cancer-related pain Diabetes mellitus with neuropathy Encounter for chemotherapy management Major depressive disorder 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 Delgado RENAL 6 month f/u Patient here to discuss current pain 2 mth f/u after US Pancreatic R06.00. 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 Primary cancer of head of pancreas Abdominal pain Encounter for palliative care Neuropathy Primary cancer of head of pancreas Anemia of renal disease CKD (chronic kidney disease) stage 3, GFR 30-59 ml/min Hyperkalemia Hyperlipidemia [id number] Nephrolithiasis Secondary hyperparathyroidism Type 2 diabetes mellitus with diabetic chronic kidney disease Vitamin D deficiency Abdominal pain Neuropathy Pancreatic cancer Neuropathy Pancreatic cancer Lymph node enlargement Asthma Cancer-related pain Diabetes mellitus with neuropathy Major depressive disorder 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 Primary cancer of head of pancreas Hypoglycemic episode in patient with diabetes mellitus Abnormal kidney function Anemia complicating neoplastic disease Anxiety Asthma Cancer cachexia Cancer-related pain Diabetes mellitus with neuropathy Encounter for chemotherapy management Major depressive disorder 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 Primary cancer of head of pancreas Hypoglycemic episode in patient with diabetes mellitus Abnormal kidney function Anemia complicating neoplastic disease Anxiety Asthma Cancer cachexia Cancer-related pain Diabetes mellitus with neuropathy Encounter for chemotherapy management Major depressive disorder 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 March 26, 2024 1 :48pm April 02, 2024 1 0:38am Patient here for a2 month f/u April [id number] 9:18am Reason for Visit Admit Date Anemia of renal disease February 02, 2 024 1:54pm CKD (chronic kidney disease) stage 3, GF R 30-59 ml/min February 03, 2024 1:54pm Hyperkalemia February 03, 2024 1:54pm Hyperlipidemia February 03, 2024 1:54pm Hypertensive chronic kidney disease with stage 1 through stage 4 chronic ki February 03, 2024 1:54pm Nephrolithiasis February 03, 2024 1:54pm Secondary hyperparathyroidism January 102023 1:54pm Type 2 diabetes mellitus wit h diabetic chronic kidney disease February 03, 2024 1:54pm Vitamin D deficiency February 03, 2024 1:54pm Pancreatic insufficiency February 12 2 024 1:02pm Primary cancer of head of pancreas Decem 2023 1:02pm Abdominal pain February 28, 2024 9:48am Neuropathy February 28, 2024 9:48am Pancreatic cancer February 28, 2024 9:48am Hypoglycemic episode in patient with viet betes mellitus March 26, 2024 1:48pm Abnormal kidney function March 26 2 025 1:48pm Anemia complicating neoplastic disease J anuary 2024 1:48pm Anxiety March 26, 2024 1 :48pm Asthma March 26, 2024 1 :48pm Cancer cachexia March 26, 2024 1 :48pm Cancer-related pain March 26, 2024 1 :48pm Diabetes mellitus with neuropathy Marnitish y 2024 1:48pm Encounter for chemotherapy management Carson baca 2024 1:48pm Major depressive disorder March 26, 2024 1:48pm Oral leukoplakia March 26, 2024 1 :48pm 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 March 26, 2024 1:48pm Primary cancer of head of pancreas Hugh ry 2024 1:48pm Hypokalemia due to excessive renal loss of potassium March 26, 2024 1:48pm Hypomagnesemia March 26, 2024 1 :48pm Infestation by bed bug March 26 1:48pm Odynophagia March 26, 2024 1 :48pm Tachypnea, not elsewhere classified Levy howell 2024 1:48pm Family history of pancreatic cancer Levy howell 2024 1:48pm History of hepatitis C March 26 1:48pm Neuropathy April 29, 2024 9:18am Cancer-related pain April 29, 2024 9:18am Reason for Referral Specialty Diagnoses / Procedures Referred By Contac t Referred To Contact [facility] Diagnoses Type 2 diabetes mellitus with diabetic polyneuropathy, with long-term current use of insulin (HCC) Bilateral foot pain Spinal cord stimulator status Procedures [facility] TO [facility] OFFICE/OUTPATIENT [facility] 60 MINUTES Elba Henry PA-C [address] [place] [address] Referral ID Status Reason Start Date Expiration Date Visits Requested Visits Authorized [id number] Pending Review PCP Requested Referral 05/22/2023 05/21/2024 1 1 Specialty Diagnoses / Procedures Referred By Contac t Referred To Contact Psychology / PAIN MANAGEMENT Diagnoses Chemotherapy-induced neuropathy (HCC) Bilateral foot pain Bilateral hand pain Pain disorder with related psychological factors Procedures CONSULT TO PSYCHOLOGY OFFICE/OUTPATIENT [facility] 60-74 MINUTES PSYCHIATRIC DIAGNOSTIC EVALUATION PSYCHOLOGICAL TST EVAL SVC PHYS/QHP FIRST HOUR PSYL/NRPSYCL TST PHYS/QHP 2+ TST 1ST 30 MIN Jordan, Jordan E, DO [address] [place] [address] Guru Byrd, PhD [address] [place] [id number] Referral ID Status Reason Start Date Expiration Date Visits Requested Visits Authorized [id number] Pending Review PCP Requested Referral 08/13/2022 08/13/2023 1 1 Additional Source Comments (unrecognized sect ion and content) No Status Records FoundNo Status Records FoundNo Status Records FoundNo Status Records FoundNo Status Records FoundNo Status Records FoundNo Status Records FoundNo Status Records FoundNo Status Records FoundNo Status Records FoundNo Status Records FoundNo Status Records FoundNo Status Records FoundNo Status Records FoundNo Status Records FoundNo Status Records FoundNo Status Records FoundNo Status Records FoundNo Status Records FoundNo Status Records FoundNo Status Records FoundNo Status Records FoundNo Status Records FoundNo Status Records FoundNo Status Records FoundNo Status Records FoundNo Status Records FoundNo Status Records FoundNo Status Records FoundNo Status Records FoundNo Status Records FoundNo Status Records FoundNo Status Records FoundNo Status Records FoundNo Status Records FoundNo Status Records FoundNo Status Records FoundNo Status Records FoundNo Status Records FoundNo Status Records FoundNo Status Records FoundNo Status Records FoundNo Status Records FoundNo Status Records FoundNo Status Records FoundNo Status Records FoundNo Status Records FoundNo Status Records FoundNo Status Records FoundNo Status Records FoundNo Status Records FoundNo Status Records FoundNo Status Records FoundNo Status Records FoundNo Status Records FoundNo Status Records FoundNo Status Records FoundNo Status Records FoundNo Status Records FoundNo Status Records FoundNo Status Records FoundNo Status Records FoundNo Status Records FoundNo Status Records FoundNo Status Records FoundNo Status Records FoundNo Status Records FoundNo Status Records FoundNo Status Records FoundNo Status Records FoundNo Status Records FoundNo Status Records FoundNo Status Records FoundNo Status Records FoundNo Status Records FoundNo Status Records FoundNo Status Records FoundNo Status Records FoundNo Status Records FoundNo Status Records FoundNo Status Records FoundNo Status Records FoundNo Status Records FoundNo Status Records FoundNo Status Records FoundNo Status Records FoundNo Status Records FoundNo Status Records FoundNo Status Records FoundNo Status Records FoundNo Status Records FoundNo Status Records FoundNo Status Records FoundNo Status Records FoundNo Status Records FoundNo Status Records FoundNo Status Records FoundNo Status Records FoundNo Status Records FoundNo Status Records FoundNo Status Records FoundNo Status Records FoundNo Status Records FoundNo Status Records FoundNo Status Records FoundNo Status Records FoundNo Status Records FoundNo Status Records FoundNo Status Records FoundNo Status Records FoundNo Status Records FoundNo Status Records FoundNo Status Records FoundNo Status Records FoundNo Status Records FoundNo Status Records FoundNo Status Records FoundNo Status Records FoundNo Status Records FoundNo Status Records FoundNo Status Records FoundNo Status Records FoundNo Status Records FoundNo Status Records FoundNo Status Records FoundNo Status Records FoundNo Status Records FoundNo Status Records FoundNo Status Records FoundNo Status Records FoundNo Status Records FoundNo Status Records FoundNo Status Records FoundNo Status Records FoundNo Status Records FoundNo Status Records FoundNo Status Records FoundNo Status Records FoundNo Status Records FoundNo Status Records FoundNo Status Records FoundNo Status Records FoundNo Status Records FoundNo Status Records FoundNo Status Records Found INFORMATION SOURCE (unrecogn ized section and content) DATE CREATED AUTHOR 08/28/2017 [facility] DATE CREATED AUTHOR AUTHOR'S ORGANIZ ATION 09/09/2017 [facility] DATE CREATED AUTHOR AUTHOR'S ORGANIZ ATION 01/19/2020 [facility] DATE CREATED AUTHOR AUTHOR'S ORGANIZ ATION 01/29/2020 [facility] DATE CREATED AUTHOR AUTHOR'S ORGANIZ ATION 04/03/2022 [facility] DATE CREATED AUTHOR AUTHOR'S ORGANIZ ATION 07/15/2022 [facility] DATE CREATED AUTHOR AUTHOR'S ORGANIZ ATION 07/25/2022 [facility] Special[facility] DATE CREATED AUTHOR AUTHOR'S ORGANIZ ATION 11/13/2022 [facility] DATE CREATED AUTHOR AUTHOR'S ORGANIZ ATION 03/30/2023 [facility] DATE CREATED AUTHOR AUTHOR'S ORGANIZ ATION 05/24/2023 [facility] DATE CREATED AUTHOR AUTHOR'S ORGANIZ ATION 09/11/2023 [facility] DATE CREATED AUTHOR AUTHOR'S ORGANIZ ATION 2023 [facility] DATE CREATED AUTHOR AUTHOR'S ORGANIZ ATION 09/25/2023 [facility] DATE CREATED AUTHOR AUTHOR'S ORGANIZ ATION 09/26/2023 [facility] DATE CREATED AUTHOR AUTHOR'S ORGANIZ ATION 10/05/2023 [facility] DATE CREATED AUTHOR AUTHOR'S ORGANIZ ATION 10/06/2023 [facility] DATE CREATED AUTHOR AUTHOR'S ORGANIZ ATION 10/07/2023 [facility] DATE CREATED AUTHOR AUTHOR'S ORGANIZ ATION 10/09/2023 [facility] DATE CREATED AUTHOR AUTHOR'S ORGANIZ ATION 10/10/2023 [facility] DATE CREATED AUTHOR AUTHOR'S ORGANIZ ATION 10/11/2023 [facility] DATE CREATED AUTHOR AUTHOR'S ORGANIZ ATION 10/15/2023 [facility] DATE CREATED AUTHOR AUTHOR'S ORGANIZ ATION 10/24/2023 [facility] DATE CREATED AUTHOR AUTHOR'S ORGANIZ ATION 12/15/2023 [facility] DATE CREATED AUTHOR AUTHOR'S ORGANIZ ATION 01/20/2024 [facility] DATE CREATED AUTHOR AUTHOR'S ORGANIZ ATION 01/26/2024 [facility] DATE CREATED AUTHOR AUTHOR'S ORGANIZ ATION 01/27/2024 [facility] DATE CREATED AUTHOR AUTHOR'S ORGANIZ ATION 01/29/2024 [facility] DATE CREATED AUTHOR AUTHOR'S ORGANIZ ATION 02/19/2024 [facility] DATE CREATED AUTHOR AUTHOR'S ORGANIZ ATION 02/20/2024 [facility] DATE CREATED AUTHOR AUTHOR'S ORGANIZ ATION 04/24/2024 [facility] DATE CREATED AUTHOR AUTHOR'S ORGANIZ ATION 04/26/2024 [facility] DATE CREATED AUTHOR AUTHOR'S ORGANIZ ATION 04/26/2024 [facility] d[facility] Specialists EPIC DATE CREATED AUTHOR AUTHOR'S ORGANIZ ATION 04/27/2024 [facility] DATE CREATED AUTHOR AUTHOR'S ORGANIZ ATION 04/30/2024 [facility] REASON FOR VISIT (unrecogniz ed section and content) Reason Comments Consult neuropathy Reason Comments Schedule Injection Reason Comments Recheck SCS trial Reason Comments Procedure SCS implant Reason Comments Pain procedure response and follow up Pl acement of Percutaneous SCS lead implantation x 2 and Medtronic Intellis adaptiveStim system implantable pulse generator. Reason Comments Established Patient Patient states califabio g pain around scs site Reason Comments ER Follow-up Reason Comments Wrist Pain Reason Comments Appointment Reason Comments Appointment Reason Comments Diabetes Reason Comments ER Follow-up Reason Onset Date Comments paperwork 03/25/2024 Care Teams (unrecognized sec tion and content) Team Status: Active Member Role Status Dates Tiki Dockery DO Primary Care Provider Active Team Status: Inactive Member Role Status Dates Tiki Dockery DO Primary Care Provi saroj, Attending Provider Active Start: April 11, 2023 End: April 11, 2023 Team Status: Inactive Member Role Status Dates Tiki Dockery DO Primary Care Provider Active Start: April 13, 2023 End: April 13, 2023 Dario Bianchi DO Emergency Provider Active Start: April 13, 2023 End: April 13, 2023 Team Status: Inactive Member Role Status Dates Tiki Dockery DO Primary Care Provider Active Start: May 01, 2023 End: May 01, 2023 Fernando Rizo PA-C Emergency Provider Active Start: May 01, 2023 End: May 01, 2023 Team Status: Inactive Member Role Status Dates Tiki Dockery DO Primary Care Provider Active Start: May 02, 2023 End: May 02, 2023 Tito Cespedes Jr, MD Emergency Provider Active Start: May 02, 2023 End: May 02, 2023 Team Status: Inactive Member Role Status Dates Tiki Dockery DO Primary Care Provider Active Start: May 22, 2023 End: May 22, 2023 Margaret Delgado MD Attending Provider Active Start: May 22, 2023 End: May 22, 2023 Team Status: Active Member Role Status Dates Margaret Delgado MD Attending Provider Active Start: May 24, 2023 Nasim Guillaume MD Referring Provider Active Start: May 24, 2023 Tiki Dockery DO Primary Care Provider Active Start: May 24, 2023 Team Status: Inactive Member Role Status Dates Tiki Dockery DO Primary Care Provider Active Start: May 30, 2023 End: May 30, 2023 Karen Lr APRN Attending Provider Active Start: May 30, 2023 End: May 30, 2023 Team Status: Inactive Member Role Status Dates Tiki Dockery DO Primary Care Provider Active Andrew Vazquez MD Attending Provider Active Team Status: Inactive Member Role Status Dates Tiki Dockery DO Primary Care Provider, Attending Provider Active Team Status: Active Member Role Status Dates Margaret Delgado MD Attending Provider Active Nasim Guillaume MD Referring Provider Active Tiki Dcokery DO Primary Care Provider Active Billet Straightener Relationship Specialty Start Date End Date Tiki Dockery [address] [place] [address] PCP - General Family Medicine 03/11/04 Memo Rowe [address] [place] [address] Primary Staff Physician Cardiology 05/27/18 Hernandez Luciano [address] [place] [address] Referring Podiatry 03/20/22 Billet Straightener Relationship Specialty Start Date End Date Tiki Dockery [address] [place] [address] PCP - General Family Medicine 03/11/04 Memo Rowe [address] [facility] [place] [address] Primary Staff Physician Cardiology 05/27/18 Hernandez Luciano [address] [place] [address] Referring Podiatry 03/20/22 Billet Straightener Relationship Specialty Start Date End Date Tiki Dockery [address] [place] [address] PCP - General Family Medicine 03/11/04 Memo Rowe [address] [place] [address] Primary Staff Physician Cardiology 05/27/18 Hernandez Luciano [address] [place] [address] Referring Podiatry 03/20/22 Billet Straightener Relationship Specialty Start Date End Date Tiik Dockery [address] [place] [address] PCP - General Family Medicine 03/11/04 [address]e [address] [place] [address] Primary Staff Physician Cardiology 05/27/18 Hernandez Arambula DPM [address] [place] [address] Referring Podiatry 03/20/22 Billet Straightener Relationship Specialty Start Date End Date Tiki Dockery [address] [place] [address] PCP - General Family Medicine 03/11/04 [address]e [address] [place] [address] Primary Staff Physician Cardiology 05/27/18 Hernandez Arambula DPM [address] [place] [address] Referring Podiatry 03/20/22 Billet Straightener Relationship Specialty Start Date End Date Tiki Dockery [address] [place] [address] PCP - General Family Medicine 03/11/04 [address]e [address] [place] [address] Primary Staff Physician Cardiology 05/27/18 Hernandez Arambula DPM [address] [place] [address] Referring Podiatry 03/20/22 Billet Straightener Relationship Specialty Start Date End Date Tiki Dockery [address] [place] [phone] PCP - General Family Medicine 03/11/04 Memo Rowe [address] [place] [address] Primary Staff Physician Cardiology 05/27/18 Hernandez Arambula DPM [address] [place] [address] Referring Podiatry 03/20/22 Billet Straightener Relationship Specialty Start Date End Date Tiki Dockery [address] [place] [address] PCP - General Family Medicine 03/11/04 Memo Rowe [address] [place] [address] Primary Staff Physician Cardiology 05/27/18 Hernandez Arambula DPM [address] [place] [address] Referring Podiatry 03/20/22 Billet Straightener Relationship Specialty Start Date End Date Tiki Dockery [address] [place] [phone] PCP - General Family Medicine 03/11/04 Memo Rowe [address] [place] [address] Primary Staff Physician Cardiology 05/27/18 Hernandez Arambula DPM [address] [place], [place] [address] [address] Referring Podiatry 03/20/22 Team Status: Active Member Role Status Dates Tiki Dockery DO Primary Care Provider Active Start: January 30, 2023 Bro Alas MD Attending Provider Active Start: January 30, 2023 Team Status: Active Member Role Status Dates Margaret Delgado MD Attending Provider Active Start: April 09, 2023 Nasim Guillaume MD Referring Provider Active Start: April 09, 2023 Tiki Dockery DO Primary Care Provider Active Start: April 09, 2023 Billet Straightener Relationship Specialty Start Date End Date Tiki Dockery, DO [address] [place] [address] PCP - General Family Medicine 09/03/22 Tiki oDckery, DO [address] [place] [address] PCP - Devoted 03/11/23 Billet Straightener Relationship Specialty Start Date End Date Tiki Dockery, DO [address] [place] [address] PCP - General Family Medicine 09/03/22 Tiki Dockery, DO [address] [place] [address] PCP - Devoted 03/11/23 Billet Straightener Relationship Specialty Start Date End Date Tiki Dockery, DO [address] [place] [address] PCP - General Family Medicine 09/03/22 Tiki Dockery, DO [address] [place] [address] PCP - Devoted 03/11/23 Billet Straightener Relationship Specialty Start Date End Date Tiki Dockery [address] [place] [phone] PCP - General Family Medicine 03/11/04 Memo Rowe [address] [place] [address] Primary Staff Physician Cardiology 05/27/18 Hernandez Arambula DPM [address] [place] [address] Referring Podiatry 03/20/22 Billet Straightener Relationship Specialty Start Date End Date Tiki Dockery [address] [place] [address] PCP - General Family Medicine 03/11/04 [address]e [address] [place] [address] Primary Staff Physician Cardiology 05/27/18 Hernandez Arambula DPM [address] [place] [address] Referring Podiatry 03/20/22 Team Status: Active Member Role Status Dates Tiki Dockery DO Primary Care Provider Active Start: June 19, 2023 Tammy Fleming MD Attending Provider Active Start : June 19, 2023 Team Status: Inactive Member Role Status Dates Tiki Dockery DO Primary Care Provider Active Start: June 24, 2023 End: June 24, 2023 Tammy Fleming MD Attending Provider Active Start : June 24, 2023 End: June 24, 2023 Team Status: Active Member Role Status Dates Margaret Delgado MD Attending Provider Active Start: June 27, 2023 Nasim Guillaume MD Referring Provider Active Start: June 27, 2023 Tiki Dockery DO Primary Care Provider Active Start: June 27, 2023 Team Status: Inactive Member Role Status Dates Tiki Dockery DO Primary Care Provider Active Start: June 27, 2023 End: June 27, 2023 Karen Lr APRN Attending Provider Active Start: June 27, 2023 End: June 27, 2023 Team Status: Inactive Member Role Status Dates Tiki Dockery DO Primary Care Provider Active Start: August 09, 2023 End: August 09, 2023 Karen Lr APRN Attending Provider Active Start: August 09, 2023 End: August 09, 2023 Team Status: Inactive Member Role Status Dates Tiki Dockery DO Primary Care Provider Active Start: August 16, 2023 End: August 16, 2023 Margaret Delgado MD Attending Provider Active Start: August 16, 2023 End: August 16, 2023 Team Status: Active Member Role Status Dates Margaret Delgado MD Attending Provider Active Start: August 16, 2023 Nasim Guillaume MD Referring Provider Active Start: August 16, 2023 Tiki Dockery DO Primary Care Provider Active Start: August 16, 2023 Team Status: Inactive Member Role Status Dates Tiki Dockery DO Primary Care Provider Active Start: August 19, 2023 End: August 19, 2023 Daysi Garcia [facility] Emergency Provider Active Start: August 19, 2023 End: August 19, 2023 Team Status: Inactive Member Role Status Dates Tiki Dockery DO Primary Care Provider Active Start: September 18, 2023 End: September 18, 2023 Clarence Gonzales DO Emergency Provider Active St art: September 18, 2023 End: September 18, 2023 Team Status: Active Member Role Status Dates Margaret Delgado MD Attending Provider Active Start: September 27, 2023 Nasim Guillaume MD Referring Provider Active Start: September 27, 2023 Tiki Dockery DO Primary Care Provider Active Start: September 27, 2023 Team Status: Inactive Member Role Status Dates Tiki Dockery DO Primary Care Provider Active Start: October 15, 2023 End: October 15, 2023 Karen Lr APRN Attending Provider Active Start: October 15, 2023 End: October 15, 2023 Team Status: Active Member Role Status Dates Margaret Delgado MD Attending Provider Active Start: November 21, 2023 Nasim Guillaume MD Referring Provider Active Start: November 21, 2023 Tiki Dockery DO Primary Care Provider Active Start: November 21, 2023 Team Status: Inactive Member Role Status Dates Tiki Dockery DO Primary Care Provider Active Start: November 21, 2023 End: November 21, 2023 Maragret Delgado MD Attending Provider Active Start: November 21, 2023 End: November 21, 2023 Team Status: Inactive Member Role Status Dates Tiki Dockery DO Primary Care Provider Active Start: November 21, 2023 End: November 21, 2023 Karolina Watts APRN Emergency Provider Active S tart: November 21, 2023 End: November 21, 2023 Billet Straightener Relationship Specialty Start Date End Date Tiki Dockery DO [address] [place] [address] PCP - General Family Medicine 09/03/22 Tiki Dockery DO [address] [place] [address] PCP - Devoted 03/11/23 Team Status: Active Member Role Status Dates Tiki Dockery DO Primary Care Provider Active Start: December 10, 2023 Bro Alas MD Attending Provider Active Start: December 10, 2023 Team Status: Active Member Role Status Dates Tiki Dockery DO Primary Care Provider Active Start: December 13, 2023 Tammy Fleming MD Attending Provider Active Start : December 13, 2023 Team Status: Active Member Role Status Dates Margaret Delgado MD Attending Provider Active Start: December 30, 2023 Nasim Guillaume MD Referring Provider Active Start: December 30, 2023 Tiki Dockery DO Primary Care Provider Active Start: December 30, 2023 Team Status: Inactive Member Role Status Dates Tiki Dockery DO Primary Care Provider Active Start: December 31, 2023 End: December 31, 2023 Karen Lr APRN Attending Provider Active Start: December 31, 2023 End: December 31, 2023 Billet Straightener Relationship Specialty Start Date End Date Tiki Dockery, DO [address] [place] [address] PCP - General Family Medicine 09/03/22 Tiki Dockery, DO [address] [place] [address] PCP - Devoted 03/11/23 03/10/24 Billet Straightener Relationship Specialty Start Date End Date Tiki Dockery, DO [address] [place] [address] PCP - General Family Medicine 09/03/22 Tiki Dockery, DO [address] [place] [address] PCP - Devoted 03/11/23 03/10/24 Billet Straightener Relationship Specialty Start Date End Date Tiki Dockery, DO [address] [place] [address] PCP - General Family Medicine 09/03/22 Tiki Dockery, DO [address] [place] [address] PCP - Devoted 03/11/23 03/10/24 Billet Straightener Relationship Specialty Start Date End Date Tiki Dockery, DO [address] [place] [address] PCP - General Family Medicine 09/03/22 Tiki Dockery, DO [address] [place] [address] PCP - Devoted 03/11/23 03/10/24 Billet Straightener Relationship Specialty Start Date End Date Tiki Dockery, DO [address] [place] [address] PCP - General Family Medicine 09/03/22 Tiki Dockery, DO [address] [place] [address] PCP - Devoted 03/11/23 Billet Straightener Relationship Specialty Start Date End Date Tiki Dockery, DO [address] [place] [address] PCP - General Family Medicine 09/03/22 Tiki Dockery, DO [address] [place] [address] PCP - Devoted 03/11/23 Billet Straightener Relationship Specialty Start Date End Date Tiki Dockery, DO [address] [place] [address] PCP - General Family Medicine 09/03/22 Tiki Dockery, DO [address] [place] [address] PCP - Devoted 03/11/23 Billet Straightener Relationship Specialty Start Date End Date Tiki Dockery, DO [address] [place] [address] PCP - General Family Medicine 09/03/22 Tiki Dockery, DO [address] [place] [address] PCP - Devoted 03/11/23 03/10/24 Billet Straightener Relationship Specialty Start Date End Date Tiki Dockery, DO [address] [place] [address] PCP - General Family Medicine 09/03/22 Tiki Dockery, DO [address] [place] [address] PCP - Devoted 03/11/23 Billet Straightener Relationship Specialty Start Date End Date Tiki Dockery, DO [address] [place] [address] PCP - General Family Medicine 09/03/22 Tiki Dockery, DO [address] [place] [address] PCP - Devoted 03/11/23 Billet Straightener Relationship Specialty Start Date End Date Tiki Dockery, DO [address] [place] [address] PCP - General Family Medicine 09/03/22 Tiki Dockery, DO [address] [place] [address] PCP - Devoted 03/11/23 Billet Straightener Relationship Specialty Start Date End Date Tiki Dockery, DO [address] [address] [place] [address] PCP - General Family Medicine 09/03/22 Tiki Dockery DO [address] [place] [address] PCP - [facility] 03/11/23 Team Status: Inactive Member Role Status Dates Tiki Dockery DO Primary Care Provider Active Start: February 03, 2024 End: February 03, 2024 Tammy Fleming MD Attending Provider Active Start : February 03, 2024 End: February 03, 2024 Team Status: Inactive Member Role Status Dates Tiki Lozanoguycorinna Primary Care Provider Active Start: February 13, 2024 End: February 13, 2024 Connor Vazquez MD Attending Provider Active S tart: February 13, 2024 End: February 13, 2024 Team Status: Inactive Member Role Status Dates Tiki Dockery Primary Care Provider Active Start: February 28, 2024 End: February 28, 2024 Karen Lr APRN Attending Provider Active Start: February 28, 2024 End: February 28, 2024 Team Status: Active Member Role Status Dates Margaret Delgado MD Attending Provider Active Start: March 26, 2024 Nasim Guillaume MD Referring Provider Active Start: March 26, 2024 Tiki Dockery DO Primary Care Provider Active Start: March 26, 2024 Team Status: Active Member Role Status Dates Tiki Dockery Primary Care Provider Active Start: April 02, 2024 Bro Alas MD Attending Provider Active Start: April 02, 2024 Team Status: Inactive Member Role Status Dates Tiki OmayraDO angel Primary Care Provider Active Start: April 29, 2024 End: April 29, 2024 Karen Lr APRN Attending Provider Active Start: April 29, 2024 End: April 29, 2024 Goals (unrecognized section and content) Goals may be documented in a n alternate section Source Comments (unrecognize d section and content) In the event this informatio n is protected by the Federal Confidentiality of Alcohol and Drug Abuse Patient Records regulations: The Federal rules restrict any use of the information to criminally investigate or prosecute any alcohol or drug abuse patient.[facility] the event this information is protected by the Federal Confidentiality of Alcohol and Drug Abuse Patient Records regulations: The Federal rules restrict any use of the information to criminally investigate or prosecute any alcohol or drug abuse patient.[facility] the event this information is protected by the Federal Confidentiality of Alcohol and Drug Abuse Patient Records regulations: The Federal rules restrict any use of the information to criminally investigate or prosecute any alcohol or drug abuse patient.[facility] the event this information is protected by the Federal Confidentiality of Alcohol and Drug Abuse Patient Records regulations: The Federal rules restrict any use of the information to criminally investigate or prosecute any alcohol or drug abuse patient.[facility]In the event this information is protected by the Federal Confidentiality of Alcohol and Drug Abuse Patient Records regulations: The Federal rules restrict any use of the information to criminally investigate or prosecute any alcohol or drug abuse patient.[facility] the event this information is protected by the Federal Confidentiality of Alcohol and Drug Abuse Patient Records regulations: The Federal rules restrict any use of the information to criminally investigate or prosecute any alcohol or drug abuse patient.[facility] the event this information is protected by the Federal Confidentiality of Alcohol and Drug Abuse Patient Records regulations: The Federal rules restrict any use of the information to criminally investigate or prosecute any alcohol or drug abuse patient.[facility] the event this information is protected by the Federal Confidentiality of Alcohol and Drug Abuse Patient Records regulations: The Federal rules restrict any use of the information to criminally investigate or prosecute any alcohol or drug abuse patient.[facility] the event this information is protected by the Federal Confidentiality of Alcohol and Drug Abuse Patient Records regulations: The Federal rules restrict any use of the information to criminally investigate or prosecute any alcohol or drug abuse patient.[facility] the event this information is protected by the Federal Confidentiality of Alcohol and Drug Abuse Patient Records regulations: The Federal rules restrict any use of the information to criminally investigate or prosecute any alcohol or drug abuse patient.[facility] the event this information is protected by the Federal Confidentiality of Alcohol and Drug Abuse Patient Records regulations: The Federal rules restrict any use of the information to criminally investigate or prosecute any alcohol or drug abuse patient.[facility] the event this information is protected by the Federal Confidentiality of Alcohol and Drug Abuse Patient Records regulations: The Federal rules restrict any use of the information to criminally investigate or prosecute any alcohol or drug abuse patient.[facility] the event this information is protected by the Federal Confidentiality of Alcohol and Drug Abuse Patient Records regulations: The Federal rules restrict any use of the information to criminally investigate or prosecute any alcohol or drug abuse patient.[facility]In the event this information is protected by the Federal Confidentiality of Alcohol and Drug Abuse Patient Records regulations: The Federal rules restrict any use of the information to criminally investigate or prosecute any alcohol or drug abuse patient.[facility] FOR RECORDS PERTAINING TO PATIENTS WHO ARE OR HAVE BEEN ENROLLED IN A CHEMICAL DEPENDENCY/SUBSTANCEABUSE PROGRAM, SOME INFORMATION MAY BE OMITTED. This clinical summary was aggregated from multiple sources. Caution should be exercised in using it in the provision of clinical care. This summary normalizes information from multiple sources, and as a consequence, information in this document may materially change the coding, format and clinical context of patient data. In addition, data may be omitted in some cases. CLINICAL DECISIONS SHOULD BE BASED ON THE PRIMARY CLINICAL RECORDS. [facility]. provides no warranty or guarantee of the accuracy or completeness of information in this document.
--- NOTE | 2024-05-02 21:30 | ED.GENADUL1 ---
HPI HPI - General Adult General Chief complaint: Medical Clearance Stated complaint: NEOROPATHY, OXYCODONE WITHDRAWL Time Seen by Provider: 05/02/24 21:17 Source: patient Mode of arrival: walk-in History of Present Illness HPI narrative: 68-year-old male presents to the emergency room with chief complaint of needing pain medication. He has a chronic history of neuropathy to bilateral lower extremities and feet. He states his primary care physician and pain management physician are trying to wean him off of oxycodone. Reports he took his medications this morning and vomited up all his medications 2 hours later. He does have Zofran at home states he has not vomited since. Patient's been seen at other local facilities recently with similar complaint. He states his primary and pain management physicians are trying to get him to take Suboxone. He does not want to do that. He is here because does not want to use a Suboxone at home and fear of running out before the end of the month. Patient had complete workups recently in the last week for similar complaint. His vital signs are stable. He denies any new injury trauma or falls Related Data Home Medications ?Medication ?Instructions ?Recorded ?Confirmed albuterol sulfate 90 mcg/actuation 1 inh inhalation Q4H PRN shortness 04/17/24 04/17/24 aerosol inhaler (Ventolin HFA) of breath or wheezing amlodipine 10 mg tablet 10 mg PO DAILY 04/17/24 04/17/24 aspirin 81 mg chewable tablet 81 mg PO DAILY 04/17/24 04/17/24 (Trinity Chewable Low Dose Aspirin) atorvastatin 10 mg tablet 10 mg PO DAILY 04/17/24 04/17/24 buspirone 30 mg tablet 30 mg PO .PM 04/17/24 04/17/24 cholecalciferol (vitamin D3) 50 50 mcg PO DAILY 04/17/24 04/17/24 mcg (2,000 unit) capsule (Vitamin D3) fluticasone furoate 100 1 inh inhalation Q24H 04/17/24 04/17/24 mcg-vilanterol 25 mcg/dose inhalation powder (Breo Ellipta) insulin aspart U-100 100 unit/mL 7 unit subcut BID 04/17/24 04/17/24 (3 mL) subcutaneous pen (Novolog FlexPen U-100 Insulin aspart) insulin degludec 100 unit/mL (3 27 unit subcut DAILY 04/17/24 04/17/24 mL) subcutaneous pen (Tresiba FlexTouch U-100 insulin) levomilnacipran 80 mg capsule,24 80 mg PO DAILY 04/17/24 04/17/24 hr,extended release (Fetzima) eostin-ngrxjztz-nhrtckb 1 cap PO TID 04/17/24 04/17/24 36,000-114,000-180,000 unit capsule,delay rel (Creon) lisinopril 10 mg tablet 10 mg PO DAILY 04/17/24 04/17/24 mirtazapine 45 mg tablet 45 mg PO .HS 04/17/24 04/17/24 ondansetron 8 mg disintegrating 8 mg PO DAILY 04/17/24 04/17/24 tablet oxycodone 10 mg tablet 10 mg PO .COMPLEX 04/17/24 04/17/24 pantoprazole 40 mg tablet,delayed 40 mg PO DAILY PRN reflux 04/17/24 04/17/24 release pregabalin 150 mg capsule (Lyrica) 150 mg PO BID 04/17/24 04/17/24 tamsulosin 0.4 mg capsule 0.4 mg PO DAILY 04/17/24 04/17/24 Allergies Allergy/AdvReac Type Severity Reaction Status Date / Time No Known Drug Allergies Allergy Verified 04/17/24 08:21 Opioid HPI Opioid Management Most Recent Opioid Data: No Data to Display Review of Systems ROS Narrative All Systems are negative except as noted/marked.All systems reviewed and otherwise negative [facility] Medical History (Updated 05/02/24 @ 22:40 by Margaret Oconnell) Neuropathy ?G62.9 - Polyneuropathy, unspecified (ICD-10) Amputated toe of right foot ?S98.131A - Complete traumatic amputation of one right lesser toe, initial encounter (ICD-10) Hepatitis C ?B19.20 - Unspecified viral hepatitis C without hepatic coma (ICD-10) Pancreatic cancer ?C25.9 - Malignant neoplasm of pancreas, unspecified (ICD-10) Osteoarthritis ?M19.90 - Unspecified osteoarthritis, unspecified site (ICD-10) Anxiety ?F41.9 - Anxiety disorder, unspecified (ICD-10) Depression ?F32.A - Depression, unspecified (ICD-10) Chronic obstructive pulmonary disease ?J44.9 - Chronic obstructive pulmonary disease, unspecified (ICD-10) Seasonal allergies ?J30.2 - Other seasonal allergic rhinitis (ICD-10) Cataract ?H26.9 - Unspecified cataract (ICD-10) Diabetes ?E11.9 - Type 2 diabetes mellitus without complications (ICD-10) Hypertension ?I10 - Essential (primary) hypertension (ICD-10) High cholesterol ?E78.00 - Pure hypercholesterolemia, unspecified (ICD-10) Liver disease ?K76.9 - Liver disease, unspecified (ICD-10) Rectal bleeding ?K62.5 - Hemorrhage of anus and rectum (ICD-10) Epigastric pain ?R10.13 - Epigastric pain (ICD-10) GERD (gastroesophageal reflux disease) ?K21.9 - Gastro-esophageal reflux disease without esophagitis (ICD-10) Chronic kidney disease ?N18.9 - Chronic kidney disease, unspecified (ICD-10) Colitis ?K52.9 - Noninfective gastroenteritis and colitis, unspecified (ICD-10) Surgical History (Updated 04/17/24 @ 09:24 by Cece Bowen) 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 (ICD-10) ?Z90.49 - Acquired absence of other specified parts of digestive tract (ICD-10) History of cholecystectomy ?Z90.49 - Acquired absence of other specified parts of digestive tract (ICD-10) S/P placement of nerve stimulator ?Z96.82 - Presence of neurostimulator (ICD-10) Family History (Updated 04/17/24 @ 08:27 by Cece Bowen) Other Family history of hypertension Family history of lung cancer Family history of pancreatic cancer Social History (Updated 04/17/24 @ 08:23 by Cece Bowen) Within the past year, how often did you have a drink containing alcohol: never Score interpretation: A score less than 4 is consistent with normal alcohol consumption. Smoking status: Former smoker Non-prescribed substance use: cannabis (any form) Non-prescribed substance use details: smokes daily Previous occupational history: retired Highest level of school completed/degree received: 10th grade Little interest or pleasure in doing things: more than half the days Feeling down, depressed, or hopeless: nearly every day Exam Narrative Exam Narrative: Nurses note and vital signs reviewed and patient is not hypoxic. General: The patient appears well and in no apparent distress. Patient is resting comfortably on cart. Skin: Warm, dry, no pallor noted. There is no rash noted. Head: Normocephalic, atraumatic Eye: Normal conjunctiva, no drainage, EOMI. PERRL Ears, Nose, Mouth, and Throat: oral mucosa is moist. Nares patent. Mouth without vesicles. Ear canals patent. Tm's without Erythema Cardiovascular: Regular Rate and Rhythm Respiratory: Patient is in no distress, no accessory muscle use, lungs are clear to auscultation, no wheezing, rales or rhonchi Back: non-tender, no CVA tenderness bilaterally to percussion. GI: Normal bowel sounds, no tenderness to palpation, no masses appreciated. No rebound, guarding, or rigidity noted. Musculoskeletal: The patient has no evidence of calf tenderness, no pitting edema, symmetrical pulses noted bilaterally Neurological: A&O x4, normal speech Psychiatric: Cooperative Constitutional Vital Signs, click to edit/add: Last Vital Signs Temp 98.0 F 05/02/24 21:18 Pulse 81 05/02/24 21:18 Resp 18 05/02/24 21:18 BP 179/79 H 05/02/24 21:18 Pulse Ox 98 05/02/24 21:18 O2 Del Method Room Air 05/02/24 21:18 Course Vital Signs Vital signs: Vital Signs Temperature 98.0 F 05/02/24 21:18 Pulse Rate 81 05/02/24 21:18 Respiratory Rate 18 05/02/24 21:18 Blood Pressure 179/79 H 05/02/24 21:18 Pulse Oximetry 98 05/02/24 21:18 Oxygen Delivery Method Room Air 05/02/24 21:18 Temperature 98.0 F 05/02/24 21:18 Pulse Rate 81 05/02/24 21:18 Respiratory Rate 18 05/02/24 21:18 Blood Pressure 179/79 H 05/02/24 21:18 Pulse Oximetry 98 05/02/24 21:18 Oxygen Delivery Method Room Air 05/02/24 21:18 Medical Decision Making MDM Narrative Medical decision making narrative: 68-year-old male presents to the emergency room with chief complaint of needing pain medication. He has a chronic history of neuropathy to bilateral lower extremities and feet. He states his primary care physician and pain management physician are trying to wean him off of oxycodone. Reports he took his medications this morning and vomited up all his medications 2 hours later. He does have Zofran at home states he has not vomited since. Patient's been seen at other local facilities recently with similar complaint. He states his primary and pain management physicians are trying to get him to take Suboxone. He does not want to do that. He is here because does not want to use a Suboxone at home and fear of running out before the end of the month. Patient had complete workups recently in the last week for similar complaint. His vital signs are stable. He denies any new injury trauma or falls Patient is in pain management and receives oxycodone is take 40 mg a day he has been being weaned down from 50 to 40 mg as his pain management are trying to decrease his medication and start him on Suboxone. Patient does not want to do this. He presents today and states he vomited his medication earlier this morning. Patient was medicated here with Toradol. He was also given Zofran. Patiently also given 1 dose of Ativan before he goes home. I explained to him he needs to follow-up with his chronic pain management physician we cannot send him home with any additional pain medications. He has had no new injury trauma or falls. He works up at [employer] recently and has had no acute abnormalities. Differential Diagnosis Differential Diagnosis: Chronic pain, history of neuropathy Medical Records Medical records reviewed: Yes I reviewed the patient's medical records Lab Data Lab results reviewed: Yes I reviewed the patient's lab results Discharge Plan Discharge Chief Complaint: Medical Clearance Clinical Impression: Chronic pain Patient Disposition: Home, Self-Care Time of Disposition Decision: 22:40 Condition: Good Prescriptions / Home Meds: No Action amlodipine 10 mg tablet 10 mg PO DAILY Fetzima 80 mg capsule,extended release 24 hr 80 mg PO DAILY tamsulosin 0.4 mg capsule 0.4 mg PO DAILY atorvastatin 10 mg tablet 10 mg PO DAILY lisinopril 10 mg tablet 10 mg PO DAILY buspirone 30 mg tablet 30 mg PO .PM mirtazapine 45 mg tablet 45 mg PO .HS pregabalin [Lyrica] 150 mg capsule 150 mg PO BID Creon 36,000-114,000- 180,000 unit capsule,delayed release(DR/EC) 1 cap PO TID Rx Instructions: administer with meals and/or snacks albuterol sulfate [Ventolin HFA] 90 mcg/actuation HFA aerosol inhaler 1 inh inhalation Q4H PRN (Reason: shortness of breath or wheezing) fluticasone furoate-vilanterol [Breo Ellipta] 100-25 mcg/dose blister with device 1 inh inhalation Q24H insulin degludec [Tresiba FlexTouch U-100] 100 unit/mL (3 mL) insulin pen 27 unit subcut DAILY insulin aspart U-100 [Novolog FlexPen U-100 Insulin] 100 unit/mL (3 mL) insulin pen 7 unit subcut BID aspirin [Trinity Chewable Aspirin] 81 mg tablet,chewable 81 mg PO DAILY pantoprazole 40 mg tablet,delayed release (DR/EC) 40 mg PO DAILY PRN (Reason: reflux) oxycodone 10 mg tablet 10 mg PO .COMPLEX Rx Instructions: 10 mg orally; 5 x per day ondansetron 8 mg tablet,disintegrating 8 mg PO DAILY cholecalciferol (vitamin D3) [Vitamin D3] 50 mcg (2,000 unit) capsule 50 mcg PO DAILY Print Language: Thai Instructions: Chronic Pain (ED) Referrals: DANIS DOCKERY [Primary Care Provider] - 1 week
[2024-05-02] MEDS: KETOROLAC TROMETHAMINE 60 MG/2 ML VIAL IM (21:39)
[2024-05-02] MEDS: ONDANSETRON 4 MG RAPDIS TABLET SL (21:39)
[2024-05-02] MEDS: LORAZEPAM 1 MG TABLET PO (22:46)
== END 2024-05-02 22:50 | disposition home or self-care (01) ==
PROVIDERS: Emergency Provider Student in an Organized Health Care Education/Training Program; Family Provider Urology; PCP Family Medicine
DX: G89.29 Other chronic pain (principal); G62.9 Polyneuropathy, unspecified; Z90.410 Acquired total absence of pancreas; Z90.49 Acquired absence of other specified parts of digestive tract; Z96.82 Presence of neurostimulator; Z87.891 Personal history of nicotine dependence; Z79.899 Other long term (current) drug therapy
CPT/HCPCS: 96372; 99284; J1885; Q0162

== ENCOUNTER 2024-05-24 20:19 | Emergency (ER) | payer OTHER, SELFPAY ==
[2024-05-24 20:24] VITALS: BP 183/88; PULSE 95; TEMP 36.7; O2SAT 98; BMI 23.4
--- OUTSIDE RECORDS SUMMARY | 2024-05-24 20:29 | XMS_ITS | CCD ---
Author Organization [facility] Care Team Providers Care Software Quality Test Engineer Name Role Phone EBONI NOBLE Unavailable Unavailable KATHIA CASTRO Unavailable Unavailable CONSULT, [...] Unavailable DO Tiki Dockery Primary Care Provider [phone] MD Andrew Vazquez Attending Provider DO Tiki Dockery Attending Provider [phone] MD Margaret Delgado Attending Provider MD Nasim Guillaume Referring Provider Petznick, DO Tiki Primary Care Provider MD Andrew Vazquez Attending Provider MD Margaret Delgado Attending Provider MD Nasim Guillaume Referring Provider MD Margaret Delgado Attending Provider MD Nasim Guillaume Referring Provider Petznick, DO Tiki Primary Care Provider SARKIS, TIKI Primary Care Physician [phone] Unavailable Primary Care Provider Unavailabl MD Margaret Cee Attending Provider MD Nasim Guillaume Referring Provider Petznick, DO Tiki Primary Care Provider Tammy Fleming Unavailable Dr. Margaret Delgado Attending Unavailable Dr. Tiki Dockery Primary Care U navailable Tiki Dockery Primary Care Provider Memo Rowe Vagesh Unavailable Ankita, Hernandez H Unavailable Ralf KIM Hernandez H Unavailable [phone] Xuan Rowetan Vagesh Unavailable [phone] Ralf KIM, Hernandez H Unavailable JORDAN, JORDAN E Attending Unavailable JORDAN, JORDAN E Admitting Unavailable TIKI DOCKERY Primary Care Unava ilable PETTIKI ORTIZ Primary Care Unava ilable JORDAN, JORDAN E Attending Unavailable JORDAN, JORDAN E Admitting Unavailable MD Margaret Delgado Attending Provider MD Nasim Guillaume Referring Provider Petznick, DO Tiki Primary Care Provider MD Margaret Delgado Attending Provider [phone] MD Nasim Guillaume Referring Provider Petznick, DO Tiki Primary Care Provider [phone] Petznick, DO Tiki Attending Provider JORDAN, JORDAN PHILLIP Referring Unavailable PETZNICK, TIKI GAGAN Primary Care Unava ilable PETZNICK, TIKI GAGAN Primary Care Unava ilable TEETEE YANG Referring Unavailable PETZNICK, TIKI GAGAN Primary Care Unava ilable MALINE, ELBA L Referring Unavailable PETZNICK, TIKI GAGAN Primary Care Unava ilable MALINE, ELBA L Referring Unavailable Petznick, DO Tiki Primary Care Provider MD Bro Alas Attending Provider MD Margaret Delgado Attending Provider MD Nasim Guillaume Referring Provider Petznick, DO Tiki Attending Provider MD Margaret Delgado Attending Provider MD Nasim Guillaume Referring Provider DO Dario Bianchi Emergency Provider Petznick DO, Tiki M Primary Care Provider Petznick DO, Tiki M Unavailable Petznick, DO Tiki Primary Care Provider RAMAKRISHNA Rizo Emergency Provider MD Rajiv Enriquez Jr Emergency Provider ELBA HENRY Attending Unavailable PETZNICK, TIKI GAGAN Primary Care Unava ilable MALINE ELBA L Attending Unavailable PETZNICK, TIKI GAGAN Primary Care Unava ilable [facility] Primary [facility] Unava ilable MALINE, ELBA L Attending Unavailable GURU BYRD H Attending Unavailab le PETZNICK, [facility] Primary Care Unava ilable [facility] Care Unava ilable JORDAN, JORDAN Attending Unavailable JORDAN, JORDAN Attending Unavailable PETZNICK, TIKI GAGAN Primary Care Unava ilable MALELBA SHANE Attending Unavailable PETZNICK, TIKI GAAGN Primary Care Unava ilable SOO CHELSEYPURNIMA CHEN Attending Unavailable PETZNICK, TIKI GAGAN Primary Care Unava ilable Petznick, DO Tiki Primary Care Provider Petznick, DO Tiki Attending Provider DO Dario Bianchi Emergency Provider RAMAKRSIHNA Rizo Emergency Provider MD Rajiv Enriquez Jr Emergency Provider MD Margaret Delgado Attending Provider MD Nasim Guillaume Referring Provider MD Margaret Delgado Attending Provider MD Nasim Guillaume Referring Provider Petznick, DO Tiki Primary Care Provider MD Margaret Delgado Attending Provider [phone] MD Nasim Guillaume Referring Provider Petznick, DO Tiki Primary Care Provider Radha, [facility] Daysi E Emergency Provider LONNIE, TAMMY Admitting Unavailable LONNIE, TAMMY Attending Unavailable LONNIE, TAMMY Admitting Unavailable LONNIE, TAMMY Attending Unavailable Ten Suárez Consulting Unavailable Benoit Weber Attending Unavailable Theodora Laurent Admitting Unavailable RAMAKRISHNA Suárez Jr. Consulting Unavail able Ten Suárez Consulting Unavailable MARISOL ELBA Tomeka Attending Unavailable MALINE, ELBA L Referring Unavailable PETZNICK, TIKI Admitting Unavailable PETZNICK, TIKI Attending Unavailable PETZNICK, TIKI Attending Unavailable PETZNICK, TIKI Admitting Unavailable PETZNICK, TIKI Referring Unavailable Donna Fuentes Attending Unavailable DO Clarence Gonzales Emergency Provider Jesse Angelo Attending Unavailabl Jesse Lopez Admitting Unavailabl Jesse Lopez Attending Unavailabl e Gi, Jesse Kramer Admitting Unavailabl e Gi, Jesse Kramer Attending Unavailabl e Gi, Jesse Kramer Admitting Unavailabl e DoDO Chelsea vick A Attending Unavailable LANNY, Ronobir R Admitting Unavailable [...] Consulting Unavailable Blank, Leonides S Consulting Unavailable Petzntawana, Tiki Primary Care Provider MD Margaret Delgado Attending Provider MD Nasim Guillaume Referring Provider Chelsea Ortiz Attending Unavailable DO Tiki Dockery Primary Care Provider MD Margaret Delgado Attending Provider [phone] MD Nasim Guillaume Referring Provider NYLA Watts Emergency Provider MD TAMMY FLEMING Admitting Unavailable MD TAMMY FLEMING Attending Unavailable LANNY, Phoeber R Admitting Unavailable MD John Livingston Attending Unavaila MD TAMMY Matute Admitting Unavailable MD TAMMY FLEMING Attending Unavailable DO Sarkis Tiki Primary Care Provider MD Bro Alas Attending Provider [phone] MD Margaret Delgado Attending Provider [phone] MD Nasim Guillaume Referring Provider JVDennise SEGOVIAlene Referring Unavailable JV Kathi Attending Unavailable JV Kathi Admitting Unavailable Cee Bruce Consulting Unavailable Donna Fuentes Admitting Unavailable Galea, Donna J Attending Unavailable MENDEZ, HERNANDEZ Admitting Unavailable MENDEZ, HERNANDEZ Attending Unavailable Galea, Donna J Attending Unavailable PETZNICK, TIKI Referring Unavailable MENDEZ, HERNANDEZ Attending Unavailable MENDEZ, HERNANDEZ Admitting Unavailable MENDEZ, HERNANDEZ Attending Unavailable MENDEZ, HERNANDEZ Admitting Unavailable Galea, Donna J Admitting Unavailable Galea, Donna J Attending Unavailable MENDEZ, HERNANDEZ Attending Unavailable MENDEZ, HERNANDEZ Admitting Unavailable Petznick DO, Tiki M Unavailable PETZNICK, TIKI Attending Unavailable PETZNICK, TIKI Admitting Unavailable Mark Alves Attending Unavailable Jadon Lino Attending Unavailable HERNANDEZ ARAMBULA Referring Unavailable HERNANDEZ ARAMBULA Attending Unavailable PETZNICK, TIKI M Attending Unavailable PETZNICK, TIKI M Attending Unavailable RALF, HERNANDEZ H Attending Unavailable PETZNICK, TIKI M Attending Unavailable PETZNICK, TIKI M Referring Unavailable ARAMBULA, HERNANDEZ H Attending Unavailable PETZNICK, TIKI M Attending Unavailable PETZNICK, TIKI M Referring Unavailable PETZNICK, TIKI M Attending Unavailable PETZNICK, TIKI M Referring Unavailable PETZNICK, TIKI M Attending Unavailable PETZNICK, TIKI M Attending Unavailable PETZNICK, TIKI M Referring Unavailable Danielle Vance Attending Unavailable Mark Alves Attending Unavailable Margaret Delgado MD Attending Provider [phone] Nasim Guillaume MD Referring Provider Petznick DO, Tiki Primary Care Provider [phone] Bro Alas MD Attending Provider [phone] Clarence SYED Admitting Unavailable Clarence SYED Attending Unavailable Clarence SYED Referring Unavailable PETZNICK, TIKI Admitting Unavailable PETZNICK, TIKI Attending Unavailable PETZNICK, TIKI Admitting Unavailable PETZNICK, TIKI Attending Unavailable Clarence SYED Attending Unavailable Clarence SYED Attending Unavailable Clarence SYED Attending Unavailable Mark Arambula MD Emergency Provider [phone] Margaret Delgado MD Attending Provider [phone] Nasim Guillaume MD Referring Provider Petznick DO, Tiki Primary Care Provider Bro lAas MD Attending Provider Mark Arambula MD Emergency Provider [phone] Petznick DO, Tiki Primary Care Provider Danny WU, Margaret Attending Provider [phone] Nasim Guillaume MD Referring Provider Mark Arambula Admitting Unavailable Mark Arambula Attending Unavailable Petznick, Tiki Primary Care Unavailable Bullimore, Daysi E Admitting Unavailable Bullimore, Daysi E Attending Unavailable Petznick, Tiki Primary Care Unavailable Petznick, Tiki Primary Care Unavailable Mac, Karolina Julio Admitting Unavailable Mac, Karolina Julio Attending Unavailable Petznick, Tiki Primary Care Unavailable Tupa, Clarence Julio Admitting Unavailable Tupa, Clarence Julio Attending Unavailable Bro Alas Admitting Unavailab le Bro Alas Attending Unavailab le Petznick, Tiki Primary Care Unavailable Danny, Margaret Admitting Unavailable Danny, Margaret Attending Unavailable Nasim Guillaume Referring Unavailable Petznick, Tiki Primary Care Unavailable Chelsea Ortiz Attending Unavailable Mark Alves Attending Unavailable Danielle Vance Attending Unavailable Clarence SYED Referring Unavailable Clarence SYED Attending Unavailable Clarence SYED Admitting Unavailable Allergies Allergy Classification Reported Allergen(s) Allergy Type Date of Onset Reaction(s) Facility (20 sources) ambrosia artemisiifolia pollen; Translations: [Ragweed] Allergy to substance (finding) [facility] Repository (20 sources) Ragweed 1 Drug allergy [facility] Comment on above: SEASONAL ALLERGIES (14 sources) Pollen; Translations: [POLLEN] Allergy to substance 2 [facility] (20 sources) Mixed Ragweed Allergy to substance 3 [facility] Medications Current Medications Medication Drug Class(es) [...] above: Take 1 tablet by olya th every 6 hours as needed for pain (moderate to severe acute postoperative pain) for up to 5 days. [id number] 200 actuat albuterol 0.09 mg/actuat metered dose [...] breath or wheezing 8.5 April 14, 2023 1:00am Start: 04-13-2023 End: 06-24-2023 Albuterol Sulfate (Proair Hf a) 90 mcg/actuation HFA aerosol inhaler Discontinued 1 INH INHALATION Q4H April 13, 2023 1:00am June 24, 2023 3:11pm Start: 07-13-2020 End: 09-06-2020 take 1 puff(s) by inhalation every four to six hours as needed for dyspnea Albuterol Sulfate (Proair Hfa) 90 mcg/actuation Hfa Aerosol Inhaler Discontinued 2 PUFF INHALATION EVERY 4-6 HOURS as needed for Dyspnea 04 09July 13, 2020 12:00am September 06, 2020 5:19pm take 2 puff(s) by in halation every [...] needed for Wheezing/Shortness of Breath. amitriptyline hydrochloride 10 mg oral tablet (14 sources) Tricyclic Antidepressant Start: 025 take 1 tablet by mouth once daily at bedtime Amitriptyline 10 mg tablet Active 10 MG PO Daily at bedtime May 21, 2024 12:00am Start: 02-04-2023 take 50 mg by mouth at bedtime amitriptyline 50 mg, Oral, Bedtime, Refills(s) 0 Start Date: 02/04/23 Status: Ordered Start: 07-17-2021 take 1-2 tablets by mouth once daily at bedtime Amitriptyline HCl 10 MG 1-2 tablets Orally Once a day at bedtime for 30 day(s) July, Active amLODIPine 10 mg oral tablet (20 sources) Dihydropyridine Calcium Channel Cordell Start: 02-04-2023 End: 02-13-2024 take 1 tablet by mouth once daily Amlodipine 10 mg tablet Active 10 MG PO Daily May 18, 2024 12:00am Start: 07-07-2021 End: 06-24-2023 take 2 tablets by mouth once daily Amlodipine 5 mg tablet Discontinued 10 MG PO Daily July 07, 2021 12:00am June 24, 2023 3:11pm Start: 07-07-2021 End: 06-24-2023 take 10 mg [...] MG PO Every morning March 17, 2020 1:00am July 05, 2020 11:46am Comment on above: Take 10 mg by mouth once daily. amylase [id number] unt / lipase 05226 unt / protease [id number] unt delayed release oral capsule (20 sources) Start: 09-19-2023 Creon 36,000 units oral delayed release capsule 2 cap(s), Oral, TIDWM, Refill(s) 0 Start Date: 09/19/23 Status: Ordered Start: 11-08-2021 End: 02-13-2024 take [id number] capsules by mouth three times daily at mealtime Xawjoa-Giqsttfr-Veopapd (Creon) 36,000-114,000- 180,000 unit Capsule,Delayed Release(Dr/Ec) Discontinued 2 CAP PO Three times daily November 15, 2021 12:00am February 13, 2024 2:17pm administer with meals and/or snacks Comment on above: Take 2 capsules by m out three times daily. Aspir 81 (1 source) [...] Start: 04-13-2023 take 1 tablet by olya th once daily Aspirin (Adult Aspirin Regimen) 81 mg tablet,delayed release (DR/EC) Active 81 MG PO Daily April 13, 2023 1:00am Start: 11-02-2009 End: 08-13-2022 aspirin(ECOTRIN LOW STRENGTH 81 MG TAB) Take one (1) tablet daily. 0 11/02/2009 08/13/2022 Discontinued (Other) Comment on above: Take one (1) tablet daily. atorvastatin 10 mg oral tablet (20 sources) HMG-CoA Reductase Inhibitor Start: End: take 1 tablet by mouth once daily in the morning Atorvastatin (Lipitor) 20 mg Tablet Discontinued 20 MG PO Every morning April 04, 2020 1:00am July 05, 2020 11:46am Start: 05-10-2016 End: 04-04-2020 take 1 tablet by mouth once daily Atorvastatin 40 mg Tablet Discontinued 40 MG PO Daily March 17, 2020 1:00am April 04, 2020 12:28pm Start: 11-02-2009 take 1 tablet by olya th once daily atorvastatin 10 mg Tab 10 mg = 1 tab(s), Oral, Daily Start Date: 10/05/23 Status: Ordered Comment on above: Take one(1) tablet d aily. azithromycin 250 mg oral tablet (20 sources) Macrolide Antimicrobial Start: 02-10-2024 azithromycin (Zithromax) 250 MG tablet 02/10/2024 Active Start: 04-14-2023 End: 05-22-2023 take 2-5 tablets by mouth once daily Azithromycin 250 mg tablet Discontinued 250 MG PO Daily 6 April 14, 2023 1:00am May 22, 2023 10:21am Take 500mg today (day 1), then 250mg [...] day(s), # 6 tab(s), Refills(s) 0, Pharmacy: [id number], 188, cm, 02/10/24 15:24:00 EST, Height/Length Dosing, 96, kg, 02/10/24 15:24:00 EST, Weight Dosing Start Date: 02/10/24 Stop Date: 02/15/24 Status: Ordered baclofen 10 mg oral tablet (1 source) gamma-Aminobutyri c Acid-ergic Agonist Start: 05-21-2024 take 1 tablet by mouth three times daily Baclofen 10 mg tablet Active 10 MG PO Three times daily May 21, 2024 12:00am buprenorphine 2 mg / naloxone 0.5 mg sublingual film (9 sources) Partial Opioid Agonist, Opioid Antagonist Start: 05-04-2024 buprenorphine-nalox one (Suboxone) 2-0.5 MG per sublingual film Place 0.25 Film under the tongue every 8 (eight) hours if needed for withdrawal 05/04/2024 Active Start: 05-04-2024 End: 05-18-2024 Buprenorphine-Naloxone 2-0.5 mg film Active 0 BUCCAL Daily 30 May 18, 2024 2:37pm 1/ film every 6h as needed buccally; busPIRone hydrochloride 15 mg oral tablet (20 sources) Start: 05-21-2024 take 1 tablet by mouth three times daily Buspirone 15 mg tablet Active 15 MG PO Three times daily May 21, 2024 12:00am Start: 03-22-2022 take 3 tablets by mo uth once daily busPIRone 10 mg Tab 30 mg = 3 tab(s), Oral, Daily, Refills(s) 0 Start Date: 03/22/22 Status: Ordered Start: 03-22-2022 take 3 tablets by mo uth twice daily busPIRone 10 mg Tab 30 mg = 3 tab(s), Oral, BID, Refills(s) 0 Start Date: 03/22/22 Status: Ordered Start: 03-22-2022 take 3 tablets by mo uth three times daily busPIRone 10 mg Tab 30 mg = 3 tab(s), Oral, TID, Refills(s) 0 Start Date: 03/22/22 Status: Ordered Start: 07-07-2021 End: 05-21-2024 take 1 tablet by mouth at bedtime busPIRone 30 mg oral tablet 30 mg = 1 tab(s), Oral, Bedtime Start Date: 10/05/23 Status: Ordered Start: 07-07-2021 take 30 mg by mouth [...] supplied gel. 1 patch 3 03/26/2024 Active carBAMazepine 200 mg oral tablet (1 source) Mood Stabilizer Start: 05-21-2024 take 1 tablet by mouth twice daily Carbamazepine 200 mg tablet Active 200 MG PO Twice daily May 21, 2024 12:00am cefTRIAXone 1000 mg injection (18 sources) Cephalosporin Antibacterial Start: 10-09-2023 cefTRIAXone 1 [...] Start: 09-16-2020 take 1 tablet by olya th once daily Cholecalciferol (Vitamin D3) 25 mcg (1,000 unit) Tablet Active 50 MCG PO Daily September 16, 2020 12:00am take 1 tablet by olya th once in the morning GNP Vitamin D Maximum Strength 50 MCG (2000 UT) tablet Take 1 tablet by mouth in the morning. 0 Active take 1 capsule by mo ut every twenty-four hours Vitamin D 50 MCG (2000 UT) 1 capsule Orally Once a day Active take 1 capsule by mo ut once daily Cholecalciferol 25 MCG (1000 UT) 1 capsule Orally Once a day Active Continuous Blood Gluc Receiv er (FreeStyle Maya 3 [place]) device (20 sources) Start: 04-01-2023 Continuous Blo od Gluc Reticle Printer (FreeStyle Maya 3 [place]) device Indications: Type 2 diabetes mellitus with peripheral neuropathy (CMS/HCC) 1 each See administration instructions 1 each 04/01/2023 Active Start: 04-01-2023 Continuous Blo od Gluc Reticle Printer (FreeStyle Maya 3 [place]) device Indications: Type 2 diabetes mellitus with peripheral neuropathy (CMS/HCC) 1 each See administration instructions 1 each 0 04/01/2023 Active Continuous Blood Gluc Sensor (FreeStyle Maya 3 Sensor) misc (5 sources) Start: 04-01-2023 Continuous Blood Gluc Sensor [place]FreeStyle [place] 3 [place] [facility] [place]: Type 2 diabetes mellitus with peripheral neuropathy (CMS/HCC) Inject 1 Device under the skin every 14 (fourteen) days 6 each 3 04/01/2023 Active Continuous Glucose Sensor (FreeStyle Maya 3 Plus Sensor) misc (20 sources) Start: 11-22-2023 End: 11-21-2024 Continuous Glucose Sensor (FreeStyle Maya 3 Plus [place]ensor[place] [facility] [place]: Type 2 diabetes mellitus with peripheral neuropathy (CMS/HCC) 1 each every 14 (fourteen) days 6 each 3 11/22/2023 11/21/2024 Active Continuous Glucose Sensor (FreeStyle Maya 3 Sensor) misc (20 sources) Start: 09-09-2023 Continuous Glucose Sensor [...] capsule by mouth once daily at bedtime doxepin 100 mg Cap 100 mg = 1 cap(s), Oral, Once a day (at bedtime) Start Date: 10/05/23 Status: Ordered dulaglutide (5 sources) GLP-1 Receptor Agonist [facility] Active fetzima titration 20 & 40 mg [...] 1 INH INHALATION Daily April 13, 2023 1:00am Start: 02-04-2023 Breo Ellipta R efill(s) 0 Start Date: 02/04/23 Status: Ordered Start: 10-30-2022 take 1 puff(s) by mo ut once daily Fluticasone Furoate-Vilanterol (Breo Ellipta) 100-25 MCG/ACT aerosol powder Indications: Simple chronic bronchitis (CMS/HCC) inhale 1 PUFF BY MOUTH ONCE DAILY 28 each 3 10/30/2022 Active furosemide 20 mg oral tablet (20 sources) Loop Diuretic Start: 02-04-2023 End: 06-09-2024 take 1 tablet by mouth once daily furosemide 20 mg Tab 20 mg = 1 tab(s), Oral, Daily Start Date: 10/05/23 Status: Ordered Comment on above: Take 20 mg by mouth once daily. 3 ml insulin aspart, human 100 unt/ml [...] UNIT SUBCUT Every morning March 17, 2020 1:00am July 05, 2020 11:47am 7 untis a day Start: 01-01-2020 inject [...] 27 UNIT SUBCUT Daily February 03, 2024 3:00pm Start: 02-03-2024 Insulin Deglud ec (Tresiba Flextouch U-100) 100 unit/mL (3 mL) insulin pen Active 27 UNIT SUBCUT Daily February 03, 2024 2:00pm Start: 07-07-2021 End: 02-03-2024 Insulin Degludec (Tresiba Fl extouch U-100) 100 unit/mL (3 mL) insulin pen Discontinued 30 UNIT SUBCUT Daily July 07, 2021 12:00am February 03, 2024 3:02pm Start: 07-07-2021 End: 02-03-2024 Insulin Degludec (Tresiba [...] (Humalog Kwikpen Insulin) 100 unit/mL insulin pen (14 sources) Start: 06-24-2023 inject 100 [IU] by [...] 80 MG PO Daily February 03, 2024 3:01pm Start: 11-05-2023 take 1 capsule by mo ut once daily Fetzima 80 MG extended release [...] Start: 03-22-2022 take 1 capsule by mo uth once daily Fetzima 120 mg oral capsule, extended release Fetzima 120 mg oral capsule, extended release, Daily Start Date: 03/22/22 Status: Ordered Start: 07-07-2021 End: 02-03-2024 take 1 capsule by mouth once daily Levomilnacipran (Fetzima) 20 mg capsule,extended release 24 hr Discontinued 60 MG PO Daily July 07, 2021 12:00am February 03, 2024 3:02pm Start: 07-07-2021 End: 11-26-2023 Fetzima 20 mg [...] Requisition, Supply Start Date: 05/10/16 Status: Ordered lidocaine 0.05 mg/mg medicated patch (20 sources) Antiarrhythmic, Amide Local Anesthetic Start: 5 apply 1 dose topically once daily Lidocaine (Lidoderm) 5 % adhesive patch,medicated Active 2 PATCH TOPICAL Daily May 21, 2024 12:00am leave on most painful area for up to 12 hrs Start: 07-05-2020 End: 07-25-2020 Lidocaine Hcl (Lidocaine Vis cous) 2 % Solution Discontinued 15 ML MUCOUS MEM Q6H as needed for Sore Throat July 05, 2020 12:00am July 25, 2020 2:14pm Start: 07-05-2020 End: 07-25-2020 Lidocaine Hcl (Lidocaine [...] 05, 2020 12:00am July 25, 2020 2:14pm apply 1 dose transde rmal route once Lidocaine 4 % patch Apply 1 patch topically every 12 (twelve) hours if needed (foot pain) Active lisinopril 10 mg oral tablet (20 sources) Angiotensin Converting Enzyme Inhibitor Start: 10-25-2022 End: 07-17-2024 take 1 tablet by mouth once daily lisinopril 10 mg Tab 10 mg = 1 tab(s), Oral, Daily Start Date: 10/05/23 Status: Ordered Start: 07-07-2021 End: 04-13-2023 take 1 tablet by mouth once daily Lisinopril 5 mg tablet Discontinued 5 MG PO Daily July 07, 2021 12:00am April 13, 2023 10:35am Start: 11-02-2009 lisinopril(ROLLY NIVIL 20 MG TAB) [...] End: 04-29-2024 take 1 tablet by mouth at bedtime Ativan 1 mg Tab 1 mg = 1 tab(s), Oral, Bedtime, Refills(s) 0 Start Date: 02/04/23 Status: Ordered Start: 07-07-2021 take 1 tablet by olya th three times daily Lorazepam (Ativan) 1 mg tablet Active 1 MG PO Three times daily July 07, 2021 8:07am Start: 11-06-2020 End: 07-07-2021 take 1 tablet by mouth every twelve hours as needed for anxiety Lorazepam (Ativan) 1 mg tablet Discontinued 1 MG PO Q12H as needed for anxiety 10 November 06, 2020 12:00am July 07, 2021 9:07am Start: 09-16-2020 End: 07-07-2021 take 1 mg by mouth twice daily Lorazepam Discontinued 1 MG PO Twice daily 0 September 16, 2020 9:45am July 07, 2021 9:06am Start: 04-04-2020 End: 07-05-2020 take 3 tablets by mouth once daily at bedtime Lorazepam (Ativan) 1 mg Tablet Discontinued 3 MG PO Daily at bedtime April 04, 2020 1:00am July 05, 2020 11:47am Start: 05-10-2016 End: 07-07-2021 take 1 mg by mouth twice daily as needed for anxiety Lorazepam 2 mg Tablet Discontinued 1 MG PO Twice daily as needed for Anxiety 0 September 16, 2020 9:45am July 07, 2021 9:06am Start: 11-02-2009 take 1 tablet by olya [...] day(s), # 21 tab(s), Refills(s) 0, Pharmacy: [facility] #[id number], 187, cm, 09/19/23 0:34:00 EDT, Height/Length Dosing, 98.8, kg, 09/19/23 0:34:00 EDT, Weight Dosing Start Date: 09/21/23 Stop Date: 09/28/23 Status: Ordered mirtazapine 45 mg oral tablet (20 sources) Start: 11-16-19 End: 06-24-19 Mirtazapine 30 mg Tablet Discontinued 45 MG PO Daily November 15, 2021 12:00am June 24, 2023 3:17pm Start: 11-15-2021 End: 06-24-2023 take 45 mg [...] tablet Discontinued 15 MG PO Daily September 09, 2020 12:00am September 16, 2020 12:21pm Start: 09-07-2020 take 1 tablet by olya th once daily at bedtime mirtazapine 45 mg oral tablet 45 mg = 1 tab(s), Oral, Once a day (at bedtime) Start Date: 10/05/23 Status: Ordered Start: 09-07-2020 take 1 tablet by olya [...] 16, 2020 12:00am July 07, 2021 9:14am Comment on above: Take 45 mg by mouth daily at bedtime. Naloxone 4 mg/actuation spray,non-aerosol (3 sources) Start: 05-04-2024 Naloxone 4 mg/actuation spray,non-aerosol Active 4 MG INTRANASAL every 2 to 3 minutes as needed for opioid overdose May 04, 2024 1:00am spray 1 dose into ONE nostril; alternate nostrils w each dose until help arrives Start: 05-04-2024 Naloxone 4 mg/ actuation spray,non-aerosol Active 4 MG INTRANASAL every 2 to 3 minutes as needed for opioid overdose May 04, 2024 12:00am spray 1 dose into ONE nostril; alternate nostrils w each dose until help arrives ondansetron 4 mg disintegrating oral tablet (20 sources) Serotonin-3 Receptor Antagonist Start: 04-24-2024 End: 04-27-2024 take 1 tablet by mouth every six hours ondansetron 4 mg Dis Tab 4 mg = 1 tab(s), Oral, q6hr, X 3 day(s), # 10 tab(s), Refills(s) 0, Pharmacy: [facility] #[id number], 188, cm, 04/24/24 13:55:00 EST, Height/Length Dosing, 87.6, kg, 04/24/24 13:55:00 EST, Weight Dosing Start Date: 04/24/24 Stop Date: 04/27/24 Status: Ordered Start: 08-19-2023 take 1 tablet by olya th every eight hours as needed for nausea ondansetron 8 mg Dis Tab 8 mg = 1 tab(s), Oral, q8hr, PRN Nausea/Vomiting Start Date: 10/05/23 Status: Ordered Start: 08-19-2023 End: 05-18-2024 take 1 tablet by mouth every eight hours as needed for nausea and vomiting Ondansetron 4 mg tablet,disintegrating Active 4 MG PO Q8H as needed for nausea and vomiting 90 May 18, 2024 2:38pm Start: 03-24-2020 End: 07-05-2020 take 1 tablet by mouth every eight hours as needed for nausea Ondansetron Hcl 8 mg Tablet Discontinued 8 MG PO Q8H as needed for Nausea March 24, 2020 10:57am July 05, 2020 11:48am pancrelipase (4 sources) Start: 02-04-2023 pancrelipase S ee Instructions, Refills(s) 0 Start Date: 02/04/23 Status: Ordered pantoprazole 40 mg delayed release oral tablet (20 sources) Proton Pump Inhibitor Start: 03-22-2022 End: 12-10-2023 take 1 tablet by mouth once daily Pantoprazole [address] Tab 40 mg = 1 tab(s), Oral, Daily, Refills(s) 0 Start Date: 03/22/22 Status: Ordered Start: 11-11-2019 take 1 tablet by olya th once daily Pantoprazole [address] Tab 40 mg = 1 tab(s), Oral, Daily, # 30 tab(s), Refills(s) 0, Pharmacy: [facility] #[id number], 188, cm, 11/09/19 7:15:00 EDT, Height/Length Dosing, 95.5, kg, 11/09/19 7:15:00 EDT, Weight Dosing Start Date: 11/11/19 Status: Ordered polyethylene glycol 3350 93034 mg powder for oral solution (5 sources) Osmotic Laxative Start: 03-22-2022 Miralax 3350 17 gram packet Oral, Daily, Refills(s) 0 Start Date: 03/22/22 Status: Ordered predniSONE 20 mg oral tablet (20 sources) Start: 02-10-2024 End: 02-17-2024 take 3 tablets by mouth once daily predniSONE 20 mg Tab 60 mg = 3 tab(s), Oral, Daily, X 7 day(s), # 21 tab(s), Refills(s) 0, Pharmacy: [facility] #[id number], 188, cm, 02/10/24 15:24:00 EST, Height/Length Dosing, 96, kg, 02/10/24 15:24:00 EST, Weight Dosing Start Date: 02/10/24 Stop Date: 02/17/24 Status: Ordered Start: 10-09-2023 predniSONE 10 mg Tab = 1 -, Oral, As Directed, Take 3 tabs by mouth daily x3 days, then 2 tabs daily x3 days, then 1 tab daily x3 days., # 18 tab(s), Refills(s) 0, Pharmacy: [facility] #[id number], 187, cm, 10/05/23 1:21:00 EDT, Height/Length Dosing, 103, kg, 10/05/23 1:21:00 EDT, Weight Dosing Start Date: 10/09/23 Status: Ordered Start: 04-14-2023 End: 04-18-2023 predniSONE (Deltasone) 20 MG tablet Daily 0 04/14/2023 04/18/2023 Discontinued (Therapy completed) Start: 04-14-2023 End: 06-24-2023 take 2 tablets by mouth once daily Prednisone 20 mg tablet Discontinued 40 MG PO Daily 10 April 14, 2023 1:00am June 24, 2023 3:18pm Start: 04-13-2023 End: 06-24-2023 take 40 mg by mouth once daily Prednisone Discontinued 40 MG PO Daily 10 April 14, 2023 1:00am June 24, 2023 3:18pm pregabalin 150 mg oral capsule (20 sources) Start: 06-19-2021 End: 05-18-2024 take 1 capsule by mouth twice daily pregabalin 150 mg Cap 150 mg = 1 cap(s), Oral, BID, # 60 cap(s), Refills(s) 0 Start Date: 03/18/22 Status: Ordered Start: 06-19-2021 End: 07-07-2021 take 1 capsule by mouth twice daily Pregabalin 75 mg capsule Discontinued 75 MG PO Twice daily June 19, 2021 12:00am July 07, 2021 9:07am Start: 04-26-2021 End: 07-07-2021 take 1 capsule by mouth twice daily Pregabalin (Lyrica) 50 mg Capsule Discontinued 50 MG PO Twice daily April 26, 2021 1:00am July 07, 2021 9:07am take 1 capsule by [facility] every twenty-four hours Pregabalin 150 MG 1 capsule Orally Once a day Active Comment on above: Take 150 mg by mouth . Weaning off medication promethazine hydrochloride 25 mg oral tablet (1 source) Phenothiazine Start: 2024 take 1 tablet by mouth three times daily promethazine 25 mg Tab 25 mg = 1 tab(s), Oral, TID, # 15 tab(s), Refills(s) 0, Pharmacy: [facility] #[id number], 187, cm, 05/22/24 9:19:00 EDT, Height/Length Dosing, 89.8, kg, 05/22/24 9:19:00 EDT, Weight Dosing Start Date: 05/22/24 Status: Ordered S.A.S.H (SALINE, ADMINISTRATION OF DRUG, SALINE, HEPARIN) (18 sources) Start: 2023 S.A.S.H (SALINE, ADMINISTRATION OF DRUG, SALINE, HEPARIN) S.A.S.H (SALINE, ADMINISTRATION OF DRUG, SALINE, HEPARIN), per protocol after each use., Print Requisition, Supply Start Date: 10/09/23 Status: Ordered sildenafil 100 mg oral tablet (20 sources) Phosphodiesterase 5 Inhibitor Start: 2023 take [...] BID, # 60 cap(s), Refills(s) 11, Pharmacy: [facility] #[id number], 188, cm, 01/06/24 10:52:00 EDT, Height/Length Dosing, 96, kg, 01/06/24 10:52:00 EDT, Weight Dosing Start Date: 01/06/24 Status: Ordered Start: 02-23-2023 End: 09-21-2023 take 1 capsule by mouth every twenty-four hours Tamsulosin 0.4 mg capsule Active 0.4 MG PO Q24H April 13, 2023 1:00am Start: 03-22-2022 take 1 capsule by mouth once d aily tamsulosin (Flomax) 0.4 MG 24 hr capsule Indications: Benign prostatic hyperplasia with urinary frequency TAKE 1 CAPSULE BY MOUTH ONCE DAILY 90 capsule 3 05/09/2023 Active Comment on above: Take 0.4 mg by mouth once daily. tiZANidine 4 mg oral tablet (16 sources) Central alpha-2 Adrenergic Agonist Start: take 1 tablet by mouth every six hours for muscle spasms tiZANidine (Zanaflex) 4 MG tablet Indications: Neck pain Take 1 tablet (4 mg) by mouth every 6 (six) hours if needed for muscle spasms 30 tablet 02/14/2024 Active Ventolin HFA 90 mcg/inh Aerosol-Adpt (20 sources) Start: take 1 puff(s) by inhalation every four hours Ventolin HFA 90 mcg/inh Aerosol-Adpt 1 puff(s), Inhalation, q4hr Shortness of breath or wheezing, Refill(s) 0 Start Date: 02/04/23 Status: Ordered Start: 02-04-2023 take 1 puff(s) by in halation every four hours Ventolin HFA 90 mcg/inh Aerosol-Adpt 1 puff(s), Inhalation, q4hr, Refill(s) 0 Start Date: 02/04/23 Status: Ordered vitamin b6 100 mg oral tablet (1 source) Start: 05-21-2024 take 1 tablet by mouth once daily Pyridoxine (Vitamin B6) 100 mg tablet Active 100 MG PO Daily May 21, 2024 12:00am Vitamin D (6 sources) Start: 02-04-2023 take 50 ug by mouth once Vitamin D 50 mcg, Oral, Refills(s) 0 Start Date: 02/04/23 Status: Ordered Vitamin D Active Vitamin D 50 MCG (1999 UT) (4 sources) take 1 capsule by mouth once daily Vitamin D 50 MCG (2000 UT) 1 capsule Orally Once a day Active Vitamin D3 2000 intl units oral Tab (18 sources) Start: 10-05-2023 take 1 tablet by mouth once daily Vitamin D3 2000 intl units oral Tab 50 mcg, Oral, Daily Start Date: 10/05/23 Status: Ordered Completed/Discontinued Medications Medication Drug Class(es) Dates Sig (Normalized) Sig (Original) acetaminophen 325 mg / HYDROcodone bitartrate 5 mg oral tablet (16 sources) Opioid Agonist Start: 05-02-2023 End: 06-24-2023 take 1 tablet by mouth every six hours as needed for pain Hydrocodone-Acetam inophen 5-325 mg tablet Discontinued 1 TAB PO Q6H as needed for pain 10 3 May 02, 2023 June 24, 2023 3:13pm acyclovir 40 mg/ml oral suspension (20 sources) Herpesvirus Nucleoside Analog DNA Polymerase Inhibitor, Herpes Simplex Virus Nucleoside Analog DNA Polymerase Inhibitor, Herpes Zoster Virus Nucleoside Analog DNA Polymerase Inhibitor Start: 07-06-2020 End: 09-06-2020 take 400 mg by mouth twice daily Acyclovir 200 mg/5 mL Suspension Discontinued 400 MG PO Twice daily 300 14 July 06, 2020 12:00am September 06, 2020 5:19pm Albuterol Sulfate 108 (90 Base) MCG/ACT (6 sources) Albuterol Sulfat e 108 (90 Base) MCG/ACT 2 puffs Inhalation every4-6h PRN Not-Taking Albuterol Sulfat e 108 (90 Base) MCG/ACT 2 puffs Inhalation every4-6h PRN Active ARIPiprazole 15 mg oral tablet (20 sources) Atypical Antipsychotic Start: 03-17-2020 End: 07-05-2020 take 1 tablet by mouth once daily in the morning Aripiprazole (Abilify) 15 mg Tablet Discontinued 15 MG PO Every morning April 04, 2020 1:00am July 05, 2020 11:46am Start: 04-13-2016 take 5 mg by mouth once daily Abilify 5 mg, Oral, Daily, Refills(s) 0 Start Date: 04/13/16 Status: Ordered End: 10-19-2022 take 1 tablet by mouth once daily ARIPiprazole (ABILIFY) 2 mg tablet Take 2 mg by mouth once daily. 0 10/19/2022 Discontinued (Course of therapy completed) Comment on above: Take 2 mg by mouth o nce daily. blood-glucose sensor (DEXCOM G7 SENSOR MISC) (8 sources) blood-glucose sensor (DEXCOM G7 SENSOR MISC) 1 Each. 0 Active Comment on above: 1 Each. Budesonide (20 sources) Corticosteroid Start: 07-26-19 End: 09-07-19 take 180 ug by inhalation twice daily Budesonide (Pulmicort Flexhaler) 180 mcg/actuation Aerosol Powdr Breath Activated Discontinued 1 INH INHALATION Twice daily 60 30 July 24, 2020 11:00pm September 06, 2020 4:19pm Start: 07-25-2020 End: 09-06-2020 take 180 ug by inhalation twice daily Budesonide (Pulmicort Flexhaler) 180 mcg/actuation Aerosol Powdr Breath Activated Discontinued 1 INH INHALATION Twice daily 60 30 July 25, 2020 12:00am September 06, 2020 [...] daily . cephalexin 500 mg oral capsule (11 sources) Cephalosporin Antibacterial Start: 2023 End: 2023 take 2 capsules by mouth twice daily Cephalexin 500 mg capsule Discontinued 1000 MG PO Twice daily 40 August 19, 2023 12:00am November 21, 2023 11:30am Start: 08-19-2023 End: 11-21-2023 take 1000 mg [...] Comment on above: Take 1 capsule by [facility] four times daily for 7 days. chlorhexidine gluconate 40 mg/ml medicated liquid soap (1 source) Start: 0 Hibiclens 4 % External Liquid USE DIRECTED. Quantity: 1 Refills: 0 Margaret Field Start : 11-Feb-2020 Active 118 ML Bottle ciprofloxacin 500 mg oral tablet (12 sources) Quinolone Antimicrobial Start: 4 take 1 tablet by mouth once daily Cipro 500 mg Tab 500 mg = 1 tab(s), Oral, Daily, Take 1 tablet the day before the procedure and 1 tablet after the procedure, # 2 tab(s), Refills(s) 0, Pharmacy: [facility] #[id number], 188, cm, 01/06/24 10:52:00 EDT, Height/Length Dosing, 96, kg, 01/06/24 10:52:00 EDT, Weight Dosing Start Date: 01/24/24 Status: Ordered Start: 09-21-2023 End: 09-28-2023 take 1 tablet by mouth every twelve hours Cipro 500 mg Tab 500 mg = 1 tab(s), Oral, q12hr, X 7 day(s), # 14 tab(s), Refills(s) 0, Pharmacy: [facility] #[id number], 187, cm, 09/19/23 0:34:00 EDT, Height/Length Dosing, 98.8, kg, 09/19/23 0:34:00 EDT, Weight Dosing Start Date: 09/21/23 Stop Date: 09/28/23 Status: Ordered clindamycin 300 mg oral capsule (10 sources) Lincosamide Antibacterial Start: 11-21-2023 End: 12-31-2023 take 1 capsule by mouth every six hours Clindamycin Hcl 300 mg capsule Discontinued 300 MG PO Every 6 hours 40 November 21, 2023 12:00am December 31, 2023 9:26am clonazePAM 1 mg oral tablet (20 sources) Benzodiazepine Start: 09-16-2020 End: 07-07-2021 take 1 tablet by mouth three times daily Clonazepam 1 mg Tablet Discontinued 1 MG PO Three times daily September 16, 2020 12:00am July 07, 2021 9:15am dicyclomine hydrochloride 20 mg oral tablet (20 sources) Anticholinergic Start: 07-07-2021 End: 11-15-2021 take 1 tablet by mouth once daily Dicyclomine 20 mg tablet Discontinued 20 MG PO Daily July 07, 2021 12:00am November 15, 2021 10:10am take 1 tablet by olya th every [...] MG PO Every morning April 04, 2020 1:00am July 05, 2020 11:46am take 1 capsule by mouth once jovana ly Cymbalta 20 MG Oral Capsule Delayed Release Particles TAKE 1 CAPSULE Daily Refills: 0 DO Active fluconazole 100 mg oral tablet (20 sources) Azole Antifungal Start: 02-15-2022 End: 04-13-2023 Fluconazole (Diflucan) 100 mg Tablet Discontinued 100 MG PO Daily February 15, 2022 1:00am April 13, 2023 10:36am Take 2 tabs = 200 mg on day 1; followed by 100 mg daily to equal 10 days Start: 07-06-2020 End: 07-08-2020 take 100 mg by mouth once daily Fluconazole 40 mg/mL Suspension For Reconstitution Discontinued 100 MG PO Daily 140 14 July 06, 2020 12:00am July 08, 2020 10:12am Start: 07-06-2020 End: 07-08-2020 take 100 mg [...] Take 40 mg by mouth once daily. gabapentin 300 mg oral capsule (20 sources) Anti-epileptic Agent Start: 01-26-2021 End: 04-26-2021 take 1 capsule by mouth three times daily Gabapentin (Neurontin) 300 mg Capsule Discontinued 300 MG PO Three times daily 270 90 January 26, 2021 1:00am April 26, 2021 11:07am Start: 07-14-2020 End: 01-26-2021 take 1 capsule by mouth twice daily Gabapentin 100 mg Capsule Discontinued 100 MG PO Twice daily July 14, 2020 12:00am January 26, 2021 3:37pm hydroCHLOROthiazide 25 mg oral tablet (20 sources) Thiazide Diuretic Start: 09-16-2020 End: 02-13-2024 take 1 tablet by mouth once daily Hydrochlorothiazide 25 mg Tablet Discontinued 25 MG PO Daily September 16, 2020 12:00am February 13, 2024 2:10pm hydroCHLOROthiazide 25 mg / losartan potassium 100 mg oral tablet (20 sources) Thiazide Diuretic, Angiotensin 2 Receptor Cordell Start: 05-10-2016 End: 07-05-2020 take 1 tablet by mouth once daily in the morning Losartan-Hydrochloroth iazide (Hyzaar) 100-25 mg Tablet Discontinued 1 TAB PO Every morning April 04, 2020 1:00am July 05, 2020 11:47am hyoscyamine sulfate 0.125 mg sublingual tablet (20 sources) Start: 05-30-2023 End: 08-09-2023 Hyoscyamine Sulfate (Levsin/Sl) 0.125 mg tablet, sublingual Discontinued 0.125 MG SUBLINGUAL 2-4 TIMES PER DAY as needed for dyspepsia 28 12May 30, 2023 4:15pm August 09, 2023 11:43am Humalog (20 sources) Insulin Analog Start: 10-07-2023 [...] UNIT SUBCUT Per protocol March 17, 2020 1:00am July 05, 2020 11:47am Per sliding scale Please contact the information source for Protocol details. Start: 01-01-2020 HumaLOG 100 un its/mL injectable solution SubCutaneous, BIDAC, PRN Other (see comment) Start Date: 01/01/20 Status: Ordered HumaLOG KwikPen 100 UNIT/ML as directed Subcutaneous SLIDING SCALE WITH EACH MEAL Active HumaLOG Active HumaLOG 100 UNIT /ML Subcutaneous Solution Refills: 0 Active Insulin Lispro (Humalog Kwikpen Insulin) 100 unit/mL Insulin Pen (20 sources) Start: 07-07-2021 End: 06-24-2023 inject 8 [...] oral tablet (20 sources) Quinolone Antimicrobial Start: 2020 End: 2020 take 1 tablet by mouth once daily Levofloxacin 750 mg Tablet Discontinued 750 MG PO Daily July 08, 2020 12:00am July 25, 2020 2:14pm linagliptin 5 mg oral tablet (20 sources) Dipeptidyl Peptidase 4 Inhibitor Start: 2020 End: 2021 take 1 tablet by mouth once daily at breakfast Linagliptin (Tradjenta) 5 mg Tablet Discontinued 5 MG PO Daily with breakfast September 16, 2020 12:00am July 07, 2021 9:14am 3 ml liraglutide 6 mg/ml pen injector (1 source) GLP-1 Receptor Agonist End: 2022 inject 1.2 mg by subcutaneous injection twice daily liraglutide (VICTOZA) 0.6 mg/0.1 mL (18 mg/3 mL) Inject 1.2 mg subcutaneously twice daily. 0 08/13/2022 Discontinued (Other) Comment on above: Inject 1.2 mg subcut aneously twice daily. metFORMIN hydrochloride 1000 mg oral tablet (20 sources) Biguanide Start: 2020 End: 2020 take 1 tablet by mouth twice daily Metformin 1,000 mg tablet Discontinued 1000 MG PO Twice daily September 10, 2020 12:00am February 22, 2021 4:33pm Start: 05-10-2016 End: 08-13-2022 take 2 tablets by mouth once daily metFORMIN (GLUCOPHAGE) 1,000 mg tablet Take 2 tablets by mouth once daily. 0 05/10/2016 08/13/2022 Discontinued (Other) Start: 03-18-2015 End: 07-05-2020 take 1 tablet by mouth twice daily Metformin 1,000 mg Tablet Discontinued 1000 MG PO Twice daily March 17, 2020 1:00am July 05, 2020 11:47am Comment on above: Take 2 tablets by [facility] once daily. metoprolol tartrate 25 mg oral [...] Refills(s) 0 Start Date: 03/22/22 Status: Ordered Naloxone (Narcan) 4 mg/actua tion spray,non-aerosol (15 sources) Start: 05-30-2023 End: 05-30-2023 Naloxone (Narcan) [...] w each dose until help arrives nystatin [id number] unt/ml oral suspension (20 sources) Polyene Antifungal Start: 07-08-2020 End: 07-25-2020 take 1 mL by mouth three times daily Nystatin 100,000 unit/mL Suspension Discontinued 5 ML PO Three times daily July 08, 2020 12:00am July 25, 2020 2:14pm swish and swallow oxyCODONE hydrochloride 10 mg oral tablet (20 sources) Opioid Agonist Start: 12-31-2023 End: 12-31-2023 take 1-2 tablets by mouth three times daily as needed for pain Oxycodone 10 mg tablet Discontinued 0 PO Three times daily as needed for pain 90 December 31, 2023 December 31, 2023 10:02am 1-2 tabs orally three times daily PRN; Start: 12-31-2023 End: 12-31-2023 take 1-2 tablets by mouth three times daily as needed for pain Oxycodone 10 mg tablet Discontinued 0 PO Three times daily as needed for pain 90 December 31, 2023 December 31, 2023 10:02am 1-2 tabs orally three times daily PRN; Start: 12-31-2023 End: 12-31-2023 take 1-2 tablets by mouth three times daily as needed for pain Oxycodone 10 mg tablet Discontinued 0 PO Three times daily as needed for pain 90 December 31, 2023 December 31, 2023 9:02am 1-2 tabs orally three times daily PRN; Start: 12-31-2023 End: 12-31-2023 take 1-2 tablets by mouth three times daily as needed for pain Oxycodone 10 mg tablet Discontinued 0 PO Three times daily as needed for pain 90 December 31, 2023 December 31, 2023 9:02am 1-2 tabs orally three times daily PRN; Start: 12-31-2023 take 1-2 tablets by mouth three times daily as needed Oxycodone Active 0 PO Three times daily 90 December 31, 2023 1-2 tabs orally three times daily PRN; Start: 07-29-2023 take 1 tablet by olya four times daily as needed for pain oxycodone 10 mg oral tablet 10 mg = 1 tab(s), Oral, QID, PRN Pain, Refills(s) 0 Start Date: 10/05/23 Status: Ordered Start: 07-29-2023 End: 12-31-2023 take 1-2 tablets by mouth three times daily as needed for pain Oxycodone 10 mg tablet Discontinued 0 PO Three times daily as needed for pain 60 December 16, 2023 December 31, 2023 9:57am 1-2 tabs orally three times daily PRN; Start: 07-29-2023 End: 05-18-2024 take 1 tablet by mouth every four to six hours as needed for pain Oxycodone 10 mg tablet Discontinued 10 MG PO EVERY 4-6 HOURS as needed for pain 75 February 28, 2024 March 13, 2024 11:30am Start: 05-30-2023 End: 07-29-2023 take 1-2 tablets by mouth twice daily as needed for pain Oxycodone 10 mg tablet Discontinued 10 MG PO Twice daily as needed for pain 40 May 30, 2023 May 30, 2023 4:16pm 1-2 tabs BID PRN potassium chloride 10 meq extended release oral tablet (20 sources) Start: 06-20-2020 End: 07-05-2020 take 2 tablets by mouth twice daily Potassium Chloride 10 mEq Tablet Extended Release Discontinued 20 MEQ PO Twice daily 56 June 20, 2020 12:08pm July 05, 2020 11:47am Start: 06-20-2020 End: 07-05-2020 take 20 mEq by mouth twice daily Potassium Chloride Discontinued 20 MEQ PO Twice daily 56 June 20, 2020 12:08pm July 05, 2020 11:47am prochlorperazine 10 mg oral tablet (20 sources) Phenothiazine Start: 09-09-2020 End: 09-19-2020 Prochlorperazine Maleate 10 mg tablet Discontinued MG TABLET September 09, 2020 12:00am September 19, 2020 10:42am Start: 09-09-2020 End: 09-19-2020 Prochlorperazine Maleate Dis continued MG TABLET September 09, 2020 12:00am September 19, 2020 10:42am Start: 06-15-2020 End: 09-06-2020 take 1 tablet by mouth every six hours Prochlorperazine Maleate 10 mg tablet Discontinued 10 MG PO Every 6 hours July 05, 2020 12:00am August 16, 2020 8:28am traMADol hydrochloride 50 mg oral tablet (20 sources) Opioid Agonist Start: 02-22-2021 End: 11-15-2021 take 1 tablet by mouth every six hours as needed for pain Tramadol 50 mg Tablet Discontinued 50 MG PO Q6H as needed for Pain 60 February 22, 2021 1:00am November 15, 2021 10:11am Start: 04-04-2020 End: 07-05-2020 take 0.5-1 tablets by mouth every six hours as needed for pain Tramadol (Ultram) 50 mg tablet Discontinued 50 MG PO Q6H as needed for pain 30 April 06, 2020 1:00am April 25, 2020 3:55pm 1/2 - 1 tab po q 6 [...] 2020 12:00am July 07, 2021 9:14am Start: 09-16-2020 End: 07-07-2021 take 112.5 mg [...] PO Bedtime as needed for Insomnia July 04, 2020 12:00am July 25, 2020 2:14pm Problems Active Problems Problem Classification Problem Date [...] Chronic Hypertension with complications and secondary hypertension (20 sources) Chronic kidney disease due to hypertension; Translations: [Hypertensive chronic kidney disease with stage 1 through stage 4 chronic kidney disease, or unspecified chronic kidney disease] 06-24-2023 Chronic Intestinal infection (11 sources) Clostridium difficile diarrhea 01-24-2024 Episodic Comment [...] sources) Onychomycosis; Translations: [Tinea unguium] 03-31-2024 Episodic Nausea and vomiting (4 sources) Nausea and vomiting; Translations: [Nausea with vomiting, unspecified] 05-18-2024 Episodic Noninfectious gastroenteritis (3 sources) Noninfectious enteritis; [...] current use of drug therapy; Translations: [Other termite inspector (current) drug therapy] Onset: 4 Episodic Other and ill-defined heart disease (7 sources) Diastolic dysfunction; Translations: [Other ill-defined heart diseases] Onset: 7 02-05-2023 Chronic Other bone disease and musculoskeletal deformities (20 sources) History of amputation of right great toe; Translations: [Acquired absence of right great toe] Onset: 3 09-07-2022 Chronic Other connective tissue disease (3 sources) Pain in right foot; Translations: [Pain in right foot] Onset: 2 Resolved: 2 Episodic Other connective tissue disease (1 source) Other symptoms and signs involving the musculoskeletal system; Translations: [Other symptoms and signs involving the musculoskeletal system] Episodic Other connective tissue disease (1 source) Muscle weakness; Translations: [Muscle weakness (generalized)] Episodic Other connective tissue disease (1 source) Pain in lower limb; Translations: [Pain in leg, unspecified] Onset: 5 Episodic Other connective tissue disease (3 sources) Foot pain; Translations: [Pain in unspecified foot] 05-10-2024 Episodic Other diseases of kidney and ureters (19 sources) Secondary hyperparathyroidism; Translations: [Secondary hyperparathyroidism of [...] 4 09-12-2020 Episodic Other infections; including parasitic (6 sources) Personal history of other infectious and [...] 3 09-03-2022 Chronic Other nervous system disorders (14 sources) Chronic pain; Translations: [Other chronic pain] Onset: 5 Chronic Other nervous system disorders (14 sources) [...] 4 05-30-2023 Chronic Other nervous system disorders (20 sources) Polyneuropathy, unspecified; Translations: [Mononeuritis of unspecified [...] reasons] Onset: 5 Episodic Residual codes; unclassified (4 sources) Family history of malignant neoplasm of digestive organs; Translations: [Family history of malignant neoplasm of gastrointestinal tract] 03-26-2024 Episodic Respiratory failure; insufficiency; arrest (adult) (2 sources) Acute respiratory failure with hypoxia; Translations: [Acute respiratory failure] Onset: 3 Episodic Septicemia (except in labor) (1 source) Sepsis; Translations: [Sepsis, unspecified organism] Onset: 4 Episodic Spondylosis; intervertebral disc disorders; other back problems (4 sources) Spasm of muscle of lower back; Translations: [Muscle spasm of back] 02-19-2023 Episodic Substance-related disorders (20 sources) Nicotine dependence, cigarettes, uncomplicated; Translations: [Smoker] Onset: 8 07-28-2014 Chronic Comment on above: Added secondary to d ocumentation in Social History. Substance-related disorders (8 sources) Opioid withdrawal; Translations: [Opioid use, unspecified with withdrawal] Onset: 5 Episodic Unclassified (1 source) exterminator (current) use of oral hypoglycemic drugs; Translations: [PARALEGAL ASSISTANT USE ORAL HYPOGLYCEMIC DX] Onset: 8 Unclassified [...] Onset: 3 09-03-2022 Other aftercare (2 sources) exterminator (current) use of insulin; Translations: [Type 2 diabetes mellitus with diabetic polyneuropathy, with long-term current use of insulin (HCC)] Onset: 3 Episodic Other aftercare (20 sources) Long-term current use of insulin; Translations: [exterminator (current) use of insulin] Onset: 1 Resolved: 3 02-23-2023 Episodic Other connective tissue disease (20 sources) [...] pulmonary nodule] Onset: 3 09-03-2022 Episodic Other nervous system disorders (20 sources) [...] unspecified] Onset: 3 Resolved: 3 10-18-2022 Chronic Skin and subcutaneous tissue infections (16 sources) Abscess; Translations: [Cutaneous abscess, unspecified] Onset: 4 11-21-2023 Episodic Sprains and strains (20 sources) Sprain of [...] Test Name Value Interpretation Reference Range Facility ED Clinical Summaryon 2024 ED Clinical Summary ED Clinical Summary [place] [id number] ED Clinical Summary Person Information Name: ALTAGRACIA CONWAY [place] Age: 68 Years : 1955 Sex: Male Language: Finnish PCP: TIKI DOCKERY DO Marital Status: Visit Id: Visit Reason: Throat pain - Adult; Nausea and vomiting; N/V Speciality: Acuity: 3 Enc Type: Emergency Med Service: Emergency Arrival: 05/22/2024 09:12:17 Discharge: 05/22/2024 11:04:25 LOS: 000 01:52 Checkin: 05/22/2024 09:12:17 Checkout: 05/22/2024 11:04:25 Dispo Type: Home (Routine DC) EVENTS: Event Name Event Status Request Date/Time Start Date/Time Complete Date/Time Arrive Complete 05/22/2024 09:12:17 05/22/2024 09:12:17 05/22/2024 09:12:17 Document Home Meds Request 05/22/2024 09:12:17 Triage Complete 05/22/2024 09:12:17 05/22/2024 09:19:19 05/22/2024 09:19:19 Bed Assign Complete 05/22/2024 09:12:17 05/22/2024 09:12:17 05/22/2024 09:12:17 Dr Exam Complete 05/22/2024 09:12:17 05/22/2024 09:13:48 05/22/2024 09:13:48 RN Exam Complete 05/22/2024 09:12:17 05/22/2024 09:28:00 05/22/2024 09:28:00 Registration Complete 05/22/2024 09:13:48 05/22/2024 09:39:14 05/22/2024 09:39:14 Dr Exam Complete 05/22/2024 09:15:51 05/22/2024 09:15:51 05/22/2024 09:15:51 Meds Admin Complete 05/22/2024 09:17:32 05/22/2024 09:24:01 Reg Complete Request 05/22/2024 09:39:14 Reg Bed Request Complete 05/22/2024 09:39:14 05/22/2024 09:39:14 05/22/2024 09:39:14 Discharge Complete 05/22/2024 10:44:50 05/22/2024 11:04:31 05/22/2024 11:04:31 Transfer Complete 05/22/2024 11:04:31 05/22/2024 11:04:31 05/22/2024 11:04:31 ADDRESS: [address] [id number] PHYS DOC NOTES: MEDICAL INFORMATION: Prescriptions Given: New Medications [id number], [address] [place], [place] [id number], [phone] promethazine (promethazine 25 mg Tab) 1 Tablets By Mouth 3 times a day. Refills: 0. Medications to Continue with No [...] Opioid Withdrawal Follow up: With: Address: When: TIKI DOCKERY [facility], [place] [address] [facility] () In 3 days 05/25/2024 DIAGNOSIS: Opiate withdrawal Normal [facility] ED Patient Summaryon 025 ED Patient Summary ED Patient Summary [address] [address] Patient Discharge Instructions Person Information Name: ALTAGRACIA CONWAY Age: 68 Years Arrival Date: 05/22/2024 09:12:17 Discharge Diagnosis: Opiate withdrawal Primary Care Physician: TIKI DOCKERY DO Provider Information Primary Provider: Mark Alves DO Advanced Public Works Inspector:Davey Raza PA-C The exam and treatment you received in the Emergency Department were for an urgent problem and are not intended as complete care. It is important that you follow up with a doctor, nurse practitioner, or physician???s sales assistant displays for ongoing care. If your symptoms become [...] With: Address: When: TIKI DOCKERY [address], [address] [place] [address] Business (1) In 3 days 05/25/2024 In the event that this physician does not participate in your insurance network, please consult with your insurance company to find a nearby participating provider. Patient Education Materials: Opioid Withdrawal A MESSAGE TO ALL PATIENTS REGARDING OPIOIDS PRESCRIPTION OPIOIDS: WHAT YOU NEED TO KNOW Prescription opioids can be used to help relieve uxilryeo-fm-ybshej pain and are often prescribed following a [...] be struggling with addiction, tell your health intensive care unit registered nurse a (more content not included)... Normal [facility] Pre-Arrival Noteon Pre-Arrival Note Pre-Arrival Note Pre-Arrival Summary Name: , Current Date: 05/22/2024 09:12:42 EDT Gender: Date of : Age: 68 Pre-Arrival Type: EMS ETA: 05/22/2024 09:34:00 EDT Primary Care Physician: Presenting Problem: n/v detox? Pre-Arrival User: Dheeraj Summers Referring Source: Location: [place] Completion Date/Time: 05/22/2024 09:04:00 [facility] Emergency Department Pre-Hospital Report Form Vital Signs: Pre-Hospital Report: Treatment in Route: Response to Treatment: Misc. Issues: Normal [facility] Alanine aminotransferase [En zymatic activity/volume] in Serum or PlasmaOrdered By: Margaret Delgado on 05-19-2024 ALT [Catalytic activity/Vol] Alanine aminotransferase [Enzymatic activity/volume] in Serum or Plasma 7-52 [facility] Albumin [Mass/volume] in Ser um or Plasma by Bromocresol green (BCG) dye binding methoOrdered By: Margaret Delgado on 05-19-2024 Albumin BCG dye [Mass/Vol] Albumin [Mass/volume] in Serum or Plasma by Bromocresol green (BCG) dye binding metho 3.5-5.7 [facility] Alkaline phosphatase [Enzyma tic activity/volume] in Serum or PlasmaOrdered By: Margaret Delgado on 05-19-2024 ALP [Catalytic activity/Vol] Alkaline phosphatase [Enzymatic activity/volume] in Serum or Plasma 34-104 [facility] Aspartate aminotransferase [ Enzymatic activity/volume] in Serum or PlasmaOrdered By: aMrgaret Delgado on 05-19-2024 AST [Catalytic activity/Vol] Aspartate aminotransferase [Enzymatic activity/volume] in Serum or Plasma 13-39 [facility] Basophils Auto (Bld) [#/Vol] Ordered By: Margaret Delgado on 05-19-2024 Basophils (Bld) [#/Vol] Automated basoph il count 0.0-0.2 [facility] Basophils/100 WBC Auto (Bld) Ordered By: Margaret Delgado on 05-19-2024 Basophils/100 WBC (Bld) Automated basophil % . [facility] Bilirubin.total [Mass/volume ] in Serum or PlasmaOrdered By: Margaret Delgado on 05-19-2024 Bilirubin [Mass/Vol] Bilirubin.total [Mass/volume] in Serum or Plasma Low 0.3-1.0 [facility] CBC W Auto Differential pane l (Bld)on 05-19-2024 Basophils (Bld) [#/Vol] 0.1 10*3/uL 0.0 - 0.2 10*3/uL [facility] Basophils/100 WBC Manual cnt (Syn fld) 0.8 % . [facility] Eosinophils (Bld) [#/Vol] 0.2 10*3/uL 0.0 - 0.45 10*3/uL [facility] Eosinophils/100 WBC Manual cnt (Syn fld) 2 % . [facility] Erythrocyte distribution width (RBC) [Ratio] 14.1 % 12.0 - 14.8 % [facility] Hematocrit (Bld) [Volume fraction] 35.7 % Low 38.8 - 50.0 % [facility] Hemoglobin (Bld) [Mass/Vol] 12 g/dL Low 13.0 - 17.0 g/dL [facility] Interpretation and review of laboratory results Abnormal [facility] Lymphocytes (Bld) [#/Vol] 2.3 10*3/uL 1.00 - 4.8 10*3/uL [facility] Lymphocytes/100 WBC Manual cnt (Syn fld) 19.4 % . [facility] MCH (RBC) [Entitic mass] 30 pg 27.5 - 35.2 pg [facility] MCHC (RBC) [Mass/Vol] 33.6 g/dL 32.5 - 35.6 g/dL [facility] MCV (RBC) [Entitic vol] 89.2 fL 83.5 - 101 fL [facility] Monocytes (Bld) [#/Vol] 0.8 10*3/uL 0.0 - 0.8 10*3/uL [facility] Monocytes+Macrophages/1 00 WBC Manual cnt (Syn fld) 7.2 % . [facility] Neutrophils (Bld) [#/Vol] 8.3 10*3/uL High 1.8 - 7.7 10*3/uL [facility] Neutrophils/100 WBC Manual cnt (Syn fld) 70.6 % . [facility] NRBC 0 /100{WBC} 0 - 0.5 /100{WBC} [facility] Platelet mean volume (Bld) [Entitic vol] 9.4 fL 6.6 - 10.1 fL [facility] Platelets (Bld) [#/Vol] 228 10*3/uL 150 - 450 10*3/uL [facility] RBC LM.HPF (Urine sed) [#/Area] 4 10*6/uL 3.90 - 5.60 10*6/uL [facility] WBC (Bld) [#/Vol] 11.7 10*3/uL High 4.1 - 10.5 10*3/uL [facility] WBC LM.HPF (Urine sed) [#/Area] 11.7 10*3/uL High 4.1 - 10.5 10*3/uL [facility] CT abdomen pelvis w conon CT abdomen pelvis w con [facility] [address] [place] [address] [place] [address] CT Scan Report Signed Patient: Altagracia Conway MR#: [id number] 021 : 1955 Acct:[id number] Age/Sex: 68 / M ADM Date: 05/19/24 Loc: Room: Type: [facility] Attending Dr: Margaret Delgado MD Copies to: Margaret Delgado MD Ordering Provider: Margaret Delgado MD Date of Service: 05/19/24 CT/CT chest w con: C25.0 - Malignant neoplasm of head of pancreas ([id number]) CT/CT abdomen pelvis w con: C25.0 - Malignant neoplasm of head of pancreas CT Chest, Abdomen and Pelvis with contrast TECHNIQUE: Axial imaging with 2-D reconstruction. 90 cc of Isovue-300The CT exam was performed using one or more the following dose reduction techniques: Automated exposure control, adjustment of the MA and/or Kv according to patient size, or use of the iterative reconstruction technique. History: Assess pancreatic cancer. COMPARISON: 1123, 11/19/2023 THYROID: No significant thyroid abnormality identified. [id number]-[id number] unchanged AIRWAY: Central airway is patent. ESOPHAGUS: Esophagus normal course and caliber. HEART: Heart is not enlarged. PERICARDIAL EFFUSION: None CORONARY ARTERY CALCIFICATION: Present MEDIASTINUM: Nonenlarged mediastinal lymph nodes identified. HILAR REGION: No hilar mass or adenopathy is seen. THORACIC AORTA: No thoracic aortic aneurysm or dissection. No atherosclerosis LUNG INTERSTITIUM: Peripheral scarring. No developing consolidation. PLEURAL EFFUSION No pleural effusion identified. PNEUMOTHORAX: No pneumothorax seen. LUNG NODULE: 4 mm right upper lobe nodularity seen with image #49. Unchanged from prior. No new or enlarging nodules. CHEST WALL: No chest wall abnormality seen. The bony chest intact. LIVER: No hepatic mass or intrahepatic biliary ductal dilatation is identified. Normal density of the liver parenchyma identified. Pneumobilia redemonstrated. Liver cirrhosis. No adenopathy GALLBLADDER: Gallbladder absent. BILE DUCTS: No biliary duct dilatation identified. SPLEEN: Normal PANCREAS: Stable postsurgical changes ADRENAL GLANDS: The adrenal glands are unremarkable. KIDNEYS: Unremarkable ABDOMINAL AORTA: The abdominal aorta is normal. RETROPERITONEUM: No significant retroperitoneal abnormalities identified. STOMACH:Nondistended SMALL BOWEL: The small bowel loops are nondistended. APPENDIX: Nonvisualization COLON: There is no colitis or diverticulitis. Moderate constipation URINARY BLADDER: Urinary bladder wall thickening. May correlate with chronic obstructive changes. REPRODUCTIVE STRUCTURES: Prostatomegaly FREE AIR: None FREE FLUID: None ABDOMINAL WALL: No subcutaneous soft tissue abnormality identified. INGUINAL HERNIA: None BONES:Spinal stimulator. No bony lesions. The thoracic spondylosis. CT/CT chest w con IMPRESSION: No chest, abdominal or pelvic malignancy or metastatic disease. Moderate constipation PRELIMINARY RESULTS: None given Impression dictated by: Nasim Duckworth M.D.05/19/2024 8:56 PM Dictation Location: [facility]20 Transcribed By: [facility] 05/19/242055 Dictated By: Nasim Duckowrth DO 05/19/242046 Signed By: 05/19/242055 Normal [facility] Calcium [Mass/volume] in Ser um or PlasmaOrdered By: Margaret Delgado on 05-19-2024 Calcium [Mass/Vol] Calcium [Mass/volume ] in Serum or Plasma 8.6-10.3 [facility] Carbohydrate Antigen 19-9on 05-19-2024 Carbohydrate Antigen 19-9 12 Normal 0-35 [facility] Comment on above: Result Comment: [facility] [employer] Electrochemiluminescence Immunoassay (ECLIA) Values obtained with different assay methods or kits cannot be used interchangeably. Results cannot be interpreted as absolute evidence of the presence or absence of malignant disease. Performed at: [facility] [place] [id number] Garment Worker: Flaco Pineda PhD, Phone: [phone] PERFORMED BY: [place] [address] PATHOLOGIST ROLLER KELLY PENA M.D. Performed By: #### B UN, CREAT #### [address] Carbon dioxide, total [Moles /volume] in Serum or PlasmaOrdered By: Margaret Delgado on 05-19-2024 CO2 [Moles/Vol] Carbon dioxide, tota l [Moles/volume] in Serum or Plasma 21.0-31.0 [facility] Chloride [Moles/volume] in S iqra or PlasmaOrdered By: Margaret Delgado on 05-19-2024 Chloride [Moles/Vol] Chloride [Moles/vol ume] in Serum or Plasma 98-107 [facility] Complete Blood Count Auto Di ffon 05-19-2024 Basophils (Bld) [#/Vol] 0.1 10*3/uL Normal 0.0-0.2 [facility] Comment on above: Result Comment: PERF ORMED BY: [place] [address] PATHOLOGIST ROLLER KELLY PENA M.D. Performed By: #### B UN, CREAT #### [address] Basophils/100 WBC (Bld) 0.8 % Normal . [facility] Comment on above: Performed By: #### B UN, CREAT #### [place] [address] [place] Eosinophils (Bld) [#/Vol] 0.2 10*3/uL Normal 0.0-0.45 [facility] Comment on above: Performed By: #### B UN, CREAT #### [place] [address] [place] Eosinophils/100 WBC (Bld) 2.0 % Normal . [facility] Comment on above: Performed By: #### B UN, CREAT #### [address] Erythrocyte distribution width (RBC) [Ratio] 14.1 % Normal 12.0-14.8 [facility] Comment on above: Performed By: #### B UN, CREAT #### [address] Hematocrit (Bld) [Volume fraction] 35.7 % Low 38.8-50.0 [facility] Comment on above: Performed By: #### B UN, CREAT #### [address] Hemoglobin (Bld) [Mass/Vol] 12.0 g/dL Low 13.0-17.0 [facility] Comment on above: Performed By: #### B UN, CREAT #### [address] Lymphocytes (Bld) [#/Vol] 2.3 10*3/uL Normal 1.00-4.8 [facility] Comment on above: Performed By: #### B UN, CREAT #### [address] Lymphocytes/100 WBC (Bld) 19.4 % Normal . [facility] Comment on above: Performed By: #### B UN, CREAT #### [address] MCH (RBC) [Entitic mass] 30.0 pg Normal 27.5-35.2 [facility] Comment on above: Performed By: #### B UN, CREAT #### [address] MCV (RBC) [Entitic vol] 89.2 fL Normal 83.5-101 [facility] Comment on above: Performed By: #### B UN, CREAT #### [address] Mean Corpuscular HGB Conc 33.6 g/dL Normal 32.5-35.6 [facility] Comment on above: Performed By: #### B UN, CREAT #### [address] Monocytes (Bld) [#/Vol] 0.8 10*3/uL Normal 0.0-0.8 [facility] Comment on above: Performed By: #### B UN, CREAT #### [address] Monocytes/100 WBC (Bld) 7.2 % Normal . [facility] Comment on above: Performed By: #### B UN, CREAT #### [address] Neutrophils (Bld) [#/Vol] 8.3 10*3/uL High 1.8-7.7 [facility] Comment on above: Performed By: #### B UN, CREAT #### [address] Neutrophils/100 WBC (Bld) 70.6 % Normal . [facility] Comment on above: Performed By: #### B UN, CREAT #### [address] NRBC% 0.0 /100{WBC} Normal 0-0.5 [facility] Comment on above: Performed By: #### B UN, CREAT #### [address] Platelet mean volume (Bld) [Entitic vol] 9.4 fL Normal 6.6-10.1 [facility] Comment on above: Performed By: #### B UN, CREAT #### [place] [address] [place] Platelets (Bld) [#/Vol] 228 10*3/uL Normal 150-450 [facility] Comment on above: Performed By: #### B UN, CREAT #### [place] [address] [place] RBC (Bld) [#/Vol] 4.00 10*6/uL Normal 3.90-5.60 [facility] Comment on above: Performed By: #### B UN, CREAT #### [place] [address] [place] WBC (Bld) [#/Vol] 11.7 10*3/uL High 4.1-10.5 [facility] Comment on above: Performed By: #### B UN, CREAT #### [address] Comprehensive Metabolic Pane elaine 05-19-2024 Albumin [Mass/Vol] 4.4 g/dL Normal 3.5-5.7 [facility] Comment on above: Performed By: #### B UN, CREAT #### [address] Albumin/Globulin [Mass ratio] 1.4 {ratio} Normal [facility] Comment on above: Performed By: #### B UN, CREAT #### [address] ALP [Catalytic activity/Vol] 89 U/L Normal 34-104 [facility] Comment on above: Performed By: #### B UN, CREAT #### [address] ALT [Catalytic activity/Vol] 31 U/L Normal 7-52 [facility] Comment on above: Performed By: #### B UN, CREAT #### [address] Anion gap [Moles/Vol] 12.9 mmol/L Normal 6.0-15.0 [facility] e [facility] Comment on above: Performed By: #### B UN, CREAT #### [address] AST [Catalytic activity/Vol] 29 U/L Normal 13-39 [facility] Comment on above: Performed By: #### B UN, CREAT #### [address] Bilirubin [Mass/Vol] 0.2 mg/dL Low 0.3-1.0 [facility] Comment on above: Performed By: #### B UN, CREAT #### [place] [address] [place] Calcium [Mass/Vol] 9.8 mg/dL Normal 8.6-10.3 [facility] Comment on above: Performed By: #### B UN, CREAT #### [address] Chloride [Moles/Vol] 100 mmol/L Normal 98-107 [facility] Comment on above: Performed By: #### B UN, CREAT #### [address] CO2 [Moles/Vol] 25.2 mmol/L Normal 21.0-31.0 [facility] Comment on above: Performed By: #### B UN, CREAT #### [address] Creatinine [Mass/Vol] 1.49 mg/dL High 0.70-1.30 [facility] Comment on above: Performed By: #### B UN, CREAT #### [address] Creatinine Clr Calc Pharmacy 55.17 Normal [facility] Comment on above: Result Comment: PERF ORMED BY: [place] [address] PATHOLOGIST ROLLER KELLY PENA M.D. Performed By: #### B UN, CREAT #### [address] Estimated GFR 50.803 mL/Min Normal [facility] Comment on above: Performed By: #### B UN, CREAT #### [address] Globulin (S) [Mass/Vol] 3.2 g/dL Normal T he [facility] Comment on above: Performed By: #### B UN, CREAT #### [address] Glucose [Mass/Vol] 210 mg/dL High 70-100 [facility] Comment on above: Result Comment: [facility] Glucose Reference Range is dependent on time and content of last meal. Glucose of more than 200 mg/dL in a nonstressed, ambulatory subject supports the diagnosis of Diabetes Mellitus. ADA recommended reference range Performed By: #### B UN, CREAT #### [facility] [address] Potassium [Moles/Vol] 5.1 mmol/L Normal 3.5-5.1 [facility] Comment on above: Performed By: #### B UN, CREAT #### [facility] [address] [place] [id number] [facility] Protein [Mass/Vol] 7.6 g/dL Normal 6.4-8.9 [facility] Comment on above: Performed By: #### B UN, CREAT #### [facility] [address] Sodium [Moles/Vol] 133 mmol/L Low 136-145 [facility] Comment on above: Performed By: #### B UN, CREAT #### [facility] [address] [place] [address] [place] Urea nitrogen [Mass/Vol] 70 mg/dL High 7-25 [facility] Comment on above: Performed By: #### B UN, CREAT #### [facility] [address] Comprehensive metabolic pane elaine 05-19-2024 Albumin [Mass/Vol] 4.4 g/dL 3.5 - 5.7 g/dL [facility] Albumin/Globulin [Mass ratio] 1.4 {ratio} [facility] ALP [Catalytic activity/Vol] 89 U/L 34 - 104 U/L [facility] ALT [Catalytic activity/Vol] 31 U/L 7 - 52 U/L [facility] Anion gap [Moles/Vol] 12.9 mmol/L 6.0 - 15.0 meq/L [facility] AST [Catalytic activity/Vol] 29 U/L 13 - 39 U/L [facility] Bilirubin [Mass/Vol] 0.2 mg/dL Low 0.3 - 1 .0 mg/dL [facility] Calcium [Mass/Vol] 9.8 mg/dL 8.6 - 10. 3 mg/dL [facility] Chloride [Moles/Vol] 100 mmol/L 98 - 10 7 mmol/L [facility] CO2 [Moles/Vol] 25.2 mmol/L 21.0 - 31.0 mmol/L [facility] Creatinine (U) [Mass/Vol] 1.49 mg/dL High 0.70 - 1.30 mg/dL [facility] CREATININE CLR CALC PHARMACY 55.17 [facility] GFR/1.73 sq M.predicted MDRD (S/P/Bld) [Vol rate/Area] 50.803 mL/min/{1.73_m2} mL/Min [facility] Globulin (S) [Mass/Vol] 3.2 g/dL [facility] Glucose [Mass/Vol] 210 mg/dL High 70 - 100 mg/dL [facility] Comment on above: Random Glucose Refer ence Range is dependent on time and content of last meal. Glucose of more than 200 mg/dL in a nonstressed, ambulatory subject supports the diagnosis of Diabetes Mellitus. ADA recommended reference range Interpretation and review of laboratory results Abnormal [facility] Potassium [Moles/Vol] 5.1 mmol/L 3.5 - 5.1 mmol/L [facility] Protein [Mass/Vol] 7.6 g/dL 6.4 - 8.9 g/dL [facility] Sodium [Moles/Vol] 133 mmol/L Low 136 - 145 mmol/L [facility] Urea nitrogen [Mass/Vol] 70 mg/dL High 7 - 25 mg/dL [facility] Creatinine [Mass/volume] in Serum or PlasmaOrdered By: Margaret Delgado on 05-19-2024 Creatinine [Mass/Vol] Creatinine [Mass/volume] in Serum or Plasma High 0.70-1.30 [facility] Eosinophils Auto (Bld) [#/Vo l]Ordered By: Margaret Delgado on 05-19-2024 Eosinophils (Bld) [#/Vol] Automated eosinophil count 0.0-0.45 [facility] Eosinophils/100 WBC Auto (Bl d)Ordered By: Margaret Delgado on 05-19-2024 Eosinophils/100 WBC (Bld) Automated eosinophil % . [facility] Erythrocyte distribution wid th Auto (RBC) [Ratio]Ordered By: Margaret Delgado on 05-19-2024 Erythrocyte distribution width (RBC) [Ratio] Erythrocyte distribution width [Ratio] by Automated count 12.0-14.8 [facility] Globulin Calc (S) [Mass/Vol] Ordered By: Margaret Delgado on 05-19-2024 Globulin (S) [Mass/Vol] Serum globulin measurement by calculation (mass/volume) [facility] Glucose [Mass/volume] in Ser um or PlasmaOrdered By: Margaret Delgado on 05-19-2024 Glucose [Mass/Vol] Glucose [Mass/volume ] in Serum or Plasma High 70-100 [facility] Comment on above: ADA recommended refe rence rangeRandom Glucose Reference Range is dependent on time and content of last meal. Glucose of more than 200 mg/dL in a nonstressed, ambulatory subject supports the diagnosis of Diabetes Mellitus. Hematocrit Auto (Bld) [Volum e fraction]Ordered By: Margaret Delgado on 05-19-2024 Hematocrit (Bld) [Volume fraction] Hematocrit [Volume Fraction] of Blood by Automated count Low 38.8-50.0 [facility] Hemoglobin [Mass/volume] in BloodOrdered By: Margaret Delgado on 05-19-2024 Hemoglobin (Bld) [Mass/Vol] Hemoglobin [Mass/volume] in Blood Low 13.0-17.0 [facility] Leukocytes [#/volume] correc lamont for nucleated erythrocytes in Blood by Automated counOrdered By: Margaret Delgado on 05-19-2024 WBC corrected for nucl RBC Auto (Bld) [#/Vol] Leukocytes [#/volume] corrected for nucleated erythrocytes in Blood by Automated coun High 4.1-10.5 [facility] Lymphocytes Auto (Bld) [#/Vo l]Ordered By: Margaret Delgado on 05-19-2024 Lymphocytes (Bld) [#/Vol] Lymphocytes [#/volume] in Blood by Automated count 1.00-4.8 [facility] Lymphocytes/100 WBC Auto (Bl d)Ordered By: Margaret Delgado on 05-19-2024 Lymphocytes/100 WBC (Bld) Lymphocytes/100 leukocytes in Blood by Automated count . [facility] MCH Auto (RBC) [Entitic mass ]Ordered By: Margaret Delgado on 05-19-2024 MCH (RBC) [Entitic mass] MCH [Entitic mass] by Automated count 27.5-35.2 [facility] MCHC Auto (RBC) [Mass/Vol]Or dered By: Margaret Delgado on 05-19-2024 MCHC (RBC) [Mass/Vol] MCHC [Mass/volume] by Automated count 32.5-35.6 [facility] MCV Auto (RBC) [Entitic vol] Ordered By: Margaret Delgado on 05-19-2024 MCV (RBC) [Entitic vol] MCV [Entitic vol ume] by Automated count 83.5-101 [facility] Monocytes Auto (Bld) [#/Vol] Ordered By: Margaret Delgado on 05-19-2024 Monocytes (Bld) [#/Vol] Automated blood monocyte count 0.0-0.8 [facility] Monocytes/100 WBC Auto (Bld) Ordered By: Margaret Delgado on 05-19-2024 Monocytes/100 WBC (Bld) Automated monocyte % . [facility] Neutrophils Auto (Bld) [#/Vo l]Ordered By: Margaret Delgado on 05-19-2024 Neutrophils (Bld) [#/Vol] Neutrophils [#/volume] in Blood by Automated count High 1.8-7.7 [facility] Neutrophils/100 WBC Auto (Bl d)Ordered By: Margaret Delgado on 05-19-2024 Neutrophils/100 WBC (Bld) Automated neutrophil % . [facility] No Panel InformationOrdered By: Margaret Delgado on 05-19-2024 Estimated GFR (CKD-EPI) 50.803 mL/Min [facility] Creatinine Clearance (Chem 55.17 [facility] Nucleated erythrocytes [Pres ence] in Blood by Automated countOrdered By: Margaret Delgado on 05-19-2024 Nucleated RBC Auto Ql (Bld) Nucleated erythrocytes [Presence] in Blood by Automated count 0-0.5 [facility] Platelet mean volume Auto (B ld) [Entitic vol]Ordered By: Margaret Delgado on 05-19-2024 Platelet mean volume (Bld) [Entitic vol] Platelet mean volume [Entitic volume] in Blood by Automated count 6.6-10.1 [facility] Platelets Auto (Bld) [#/Vol] Ordered By: Margaret Delgado on 05-19-2024 Platelets (Bld) [#/Vol] Platelets [#/vol ume] in Blood by Automated count 150-450 [facility] Potassium [Moles/volume] in Serum or PlasmaOrdered By: Margaret Delgado on 05-19-2024 Potassium [Moles/Vol] Potassium [Moles/volume] in Serum or Plasma 3.5-5.1 [facility] Protein [Mass/volume] in Ser um or PlasmaOrdered By: Margaret Delgado on 05-19-2024 Protein [Mass/Vol] Protein [Mass/volume ] in Serum or Plasma 6.4-8.9 [facility] RBC Auto (Bld) [#/Vol]Ordere d By: Margaret Delgado on 05-19-2024 RBC (Bld) [#/Vol] Erythrocytes [#/volu me] in Blood by Automated count 3.90-5.60 [facility] Serum or plasma albumin/glob ulin mass ratioOrdered By: Margaret Delgado on 05-19-2024 Albumin/Globulin [Mass ratio] Serum or plasma albumin/globulin mass ratio [facility] Serum or plasma anion gap de terminationOrdered By: Margaret Delgado on 05-19-2024 Anion gap [Moles/Vol] Serum or plasma an ion gap determination 6.0-15.0 [facility] Serum or plasma cancer antig en 19-9 measurement (units/volume)Ordered By: Margaret Delgado on 05-19-2024 Cancer Ag 19-9 Qn Serum or plasma canc er antigen 19-9 measurement (units/volume) 0-35 [facility] Comment on above: [facility] El ectrochemiluminescence Immunoassay(ECLIA)Values obtained with different assay methods or kits cannotbe used interchangeably. Results cannot be interpreted asabsolute evidence of the presence or absence of malignantdisease.Performed at: [facility] [id number] Director: Flaco Pineda PhD, Phone: [phone] Sodium [Moles/volume] in Ser um or PlasmaOrdered By: Margaret Delgado on 05-19-2024 Sodium [Moles/Vol] Sodium [Moles/volume ] in Serum or Plasma Low 136-145 [facility] Urea nitrogen [Mass/volume] in Serum or PlasmaOrdered By: Margaret Delgado on 05-19-2024 Urea nitrogen [Mass/Vol] Urea nitrogen [Mass/volume] in Serum or Plasma High 7- [facility] WBC Auto (Bld) [#/Vol]Ordere d By: Margaret Delgado on 05-19-2024 WBC (Bld) [#/Vol] Leukocytes [#/volume ] in Blood by Automated count High 4.1-10.5 [facility] ECG 12 lead ECGon 05-10-2024 ECG 12 lead ECG [facility] Main [place] [id number] Electrocardiograph Report Signed Patient: Altagracia Conway MR#: [id number] 021 : 1955 Acct:[id number] Age/Sex: 68 / M ADM Date: 05/10/24 Loc: ER Room: Type: DEP ER Attending Dr: Ordering Provider: Mark Arambula MD Date of Service: 05/10/2405/05/55 ECG/ECG 12 lead ECG: Extremity Injury, Lower Copies to: Test Reason : Blood Pressure : */* mmHG Vent. Rate : 81 BPM Atrial Rate : 81 BPM P-R Int : 168 ms QRS Dur : 82 ms QT Int : 352 ms P-R-T Axes : 60 77 70 degrees QTcB Int : 408 ms Normal sinus rhythm Normal ECG When compared with ECG of 18-Sep-2023 21:53, No significant change was found Confirmed by MARK ARAMBULA MD ([id number]) on 05/10/2024 10:19:51 PM Referred By: Electronically Signed By: MARK ARAMBULA MD Transcribed By: MUS Signed By Mark Arambula MD 05/10/24 2219 Normal [facility] XR foot RT min 3V*on 025 XR foot RT min 3V* [facility] Main [address] [address] XRay Report Signed Patient: Altagracia Conway MR#: [id number] 021 : 1955 Acct:[id number] Age/Sex: 68 / M ADM Date: 05/10/24 Loc: ER Room: Type: DEP ER Attending Dr: Copies to: Mark Arambula MD Ordering Provider: Mark Arambula MD Date of Service: 05/10/24 XR/XR foot RT min 3V*: Extremity Injury, Lower RIGHT FOOT - 3 views CLINICAL HISTORY: Right foot pain for months. Worsening. COMPARISON: None FINDINGS: No focal soft tissue abnormality. Distal amputation of the first digit. Bones are grossly demineralized. Mild scattered degenerative changes with plantar spurring. No bony erosions. XR/XR foot RT min 3V* IMPRESSION: DEGENERATIVE CHANGES INVOLVING THE RIGHT FOOT WITHOUT ACUTE BONY PROCESS. Impression dictated by: Rey Dove Jr., DJohnOJohn05/10/2024 10:13 AM Dictation Location: RADIO-PC-18 Transcribed By: PWS 05/10/24 1013 Dictated By: Rey Dove Jr, DO 05/10/24 1012 Signed By: 05/10/24 1013 Normal [facility] ED Clinical Summaryon 2024 ED Clinical Summary ED Clinical Summary [place] [address] ED Clinical Summary Person Information Name: ALTAGRACIA CONWAY [facility] Age: 68 Years : 1955 Sex: Male Language: Finnish PCP: TIKI DOCKERY DO Marital Status: Visit Id: Visit Reason: Foot pain-swelling; Anxiety; PAIN RIGHT FOOT/TOES Speciality: Acuity: 4 Enc Type: Emergency Med Service: Emergency Arrival: 05/03/2024 04:03:13 Discharge: 05/03/2024 04:52:14 LOS: 000 00:49 Checkin: 05/03/2024 04:03:13 Checkout: 05/03/2024 04:52:14 Dispo Type: Home (Routine DC) EVENTS: Event Name Event Status Request Date/Time Start Date/Time Complete Date/Time Arrive Complete 05/03/2024 04:03:13 05/03/2024 04:03:13 05/03/2024 04:03:13 Document Home Meds Request 05/03/2024 04:03:13 Triage Complete 05/03/2024 04:03:13 05/03/2024 04:12:02 05/03/2024 04:12:02 Dr Exam Complete 05/03/2024 04:05:23 05/03/2024 04:05:23 05/03/2024 04:05:23 Registration Complete 05/03/2024 04:05:23 05/03/2024 04:06:39 05/03/2024 04:06:39 Reg Complete Request 05/03/2024 04:06:39 Reg Bed Request Complete 05/03/2024 04:06:39 05/03/2024 04:06:39 05/03/2024 04:06:39 RN Exam Complete 05/03/2024 04:14:57 05/03/2024 04:14:57 05/03/2024 04:14:57 Bed Assign Complete 05/03/2024 04:18:10 05/03/2024 04:18:10 05/03/2024 04:18:10 Meds Admin Complete 05/03/2024 04:25:41 05/03/2024 04:31:48 Discharge Complete 05/03/2024 04:27:25 05/03/2024 04:55:23 05/03/2024 04:55:23 Transfer Complete 05/03/2024 04:55:23 05/03/2024 04:55:23 05/03/2024 04:55:23 ADDRESS: [address] [phone] PHYS DOC NOTES: MEDICAL INFORMATION: Prescriptions Given: [...] By Mouth once a day (at bedtime). [facility] Prescription (S.A.S.H (SALINE, ADMINISTRATION OF DRUG, SALINE, [...] day. Refills: 11. PATIENT EDUCATION INFORMATION: Instructions: Peripheral Neuropathy Follow up: With: Address: When: TIKI DOCKERY [address], [address] [address] Business (4) In 3 days 05/06/2024 Comments: Follow-up with your pain management doctor and primary care doctor for further evaluation and management. DIAGNOSIS: Chronic leg pain; Other chronic pain Normal [facility] ED Note-Physicianon 05-03-19 ED Note-Physician ED Note-Physician Basic Information Time Seen: Terrence Burt PA-C 04/26/2024 12:16 Chief Complaint pt states he is withdrawing from oxycodone. states been taking for 8 months. last took it at 2030 yesterday. states feels shaky and has whole body aches. pt crying during triage. History of Present Illness 68-year-old male reports to Emergency Department with concerns of withdrawing from oxycodone. He reports he been taken for a month due to chronic pain. Does follow-up with pain management. He reports that he was taking 50 mg daily in the past, last took his last pill at 830 last night. He reports that he feels shaky and has bodyaches. He was seen a couple days ago, and states he was given a shot, and sent home as he did feel improved, but symptoms returned. He states that he does not really want to go to a inpatient rehab stay. He states that he is scheduled for surgery on Saturday for his prostate. Denies any fevers or chills. Review of Systems No other aggravating or relieving factors no other associated symptoms no other prior treatments or complaints. Family: Reviewed and noncontributory Social: lives at home Review of systems negative unless otherwise specified in the HPI. Physical Exam Vitals & Measurements T: 36.9 ???C(Tympanic) HR: 105(Monitored) RR: 16 BP: 129/60 SpO2: 96% HT: 188 cm WT: 87.6 kg BMI: 24.78 General: The patient appears well and in no apparent distress. Patient is resting comfortably on bed. Afebrile Skin: Warm, dry, no pallor noted. Head: Normocephalic, atraumatic Neck: No JVD Eye: PERRLA, EOMI ENT: Moist mucus membranes Cardiovascular: Regular rate. normal peripheral perfusion. Radial pulses +2 Respiratory: No respiratory distress. no accessory muscle use. no obvious audible wheezing Chest Wall: no deformity Musculoskeletal: normal ROM, no deformity, no swelling GI: No obvious distention Neurological: A&O. moves all extremities equal strength and symmetry Psychiatric: Cooperative and appropriate Medical Decision Making MEDICAL DECISION MAKING Number and Complexity of Problems Differential Diagnosis: [] [facility] Data External documents reviewed: [] My EKG interpretation: Reviewed My CT interpretation: [] My X-ray interpretation: Reviewed My Ultrasound interpretation: [] Decision rules/scores evaluated: [] Discussed with: [] Treatment and Disposition ED Course: 68-year-old male reports emergency department with concerns of opioid withdrawal. Exam of the patient here is rather benign. No acute findings. He was seen a couple days ago, and I discussed with that we will recheck lab work, but I did recommend likely inpatient stay for a detox center. Patient was unsure of this. Discussed that if he continues to have symptoms this bad, may need further evaluation as possible medications to be prescribed for him. He was understanding. We did get the initial lab work back, as well as chest x-ray and EKG that were reviewed. During this time, patient was adamant of leaving, decided to sign out AGAINST MEDICAL ADVICE. Discussed risks of signing out AGAINST MEDICAL ADVICE to the patient, and he was adamant that he wanted to leave. He denies any want any more test to be performed. Discussed return precautions. Shared decision making: [] Code status: [] Assessment/Plan Left against medical advice (Z53.29: Procedure and treatment not carried out because of patient's decision for other reasons) Opioid withdrawal (F11.93: Opioid use, unspecified with withdrawal) Orders: diphenhydrAMINE, 25 mg = 0.5 mL, Injection, IV Push, Once, Stop date 04/26/24 13:31:00 EST, STAT, Start date 04/26/24 13:31:00 EST, 04/26/24 13:31:00 EST insulin lispro, 10 unit(s) = 0.1 mL, Injection-Insulin, SubCutaneous, Once, Stop date 04/26/24 13:30:00 EST, STAT, Start date 04/26/24 13:30:00 EST promethazine 25 mg + Sodium Chloride 0.9% intravenous solution 50 mL, Injection, IV Piggyback, Once, Stop date 04/26/24 12:39:00 EST, STAT, Start date 04/26/24 12:39:00 EST, 153 mL/hr, Infuse over 20 minute(s) Basic Metabolic Panel CBC w/ Auto Diff ECG 12 Lead Adult ED Cardiac Monitoring eGFR Influenza A&B Ag PT & PTT Rapid COVID Antigen ([facility] Saline Lock Insert Troponin 0 Hr. XR Chest Single View Disposition Plan Patient Discharge Condition stable Discharge Disposition to home, left AGAINST MEDICAL ADVICE Discharge Prescription List Prescriptions No active prescription medications Follow-up No qualifying data available Patient Education Opioid Withdrawal Attestation Patient seen and evaluated by the physician sales assistant displays. Attending physician was present in the emergency department and supervised care. This visit was performed by both the physician and an APC. I performed all aspects of the MDM as documented. This report was transcribed using voice recognition software. Every effort was made to ensure accuracy, however, inadvertently computerized transcri (more content not included)... Normal [facility] Comment on above: Result Comment: Elec tronically Signed By: Terrence Burt PA-C\.br\Date and Time Signed: 04/26/24 14:36 EST\.br\Electronically Co-Signed By: Danielle Vance MD\.br\Date and Time Co-Signed: 05/03/24 07:36 EST ED Note-Physician ED Note-Physician Basic Information Time Seen: Chelsea Ortiz DO 05/03/2024 04:05 Chief Complaint Pt. states his neuropathy is unbearable. Pt. states he is prescribed oxy 40mg once daily by pain management. Pt. states he took dose at noon and threw it up at 1pm and is now in pain and withdrawing. History of Present Illness Patient is a 68-year-old male with past medical history of hypertension, hyperlipidemia, diabetes, peripheral neuropathy with chronic leg pain presenting to the ED for evaluation of concerns for withdrawal. Patient states he took his oxycodone at noon and threw it up at 1 PM. Patient states he has not taken any more pain medication prior to arrival, as he would run out prior to his next fill. Patient also states he is having severe anxiety in the ED. Patient denies any other complaints, states he does like to take Lyrica for his nerve pain. Follows with pain management in [place]. Review of Systems A 10 point review of systems is negative except as noted above. Medical and Surgical History: Reviewed and noted Social history: Lives at home Tobacco: Denies Physical Exam Vitals & Measurements T: 36.7 ???C(Oral) HR: 92(Peripheral) RR: 20 BP: 154/75 SpO2: 97% HT: 187 cm WT: 89.8 kg BMI: 25.68 General: Well developed, non toxic appearing, no acute distress HEENT: Head atraumatic, Mucosa moist, hearing grossly normal Neck: No JVD, tracheal deviation Cardiac: Regular rate, rhythm, no murmurs, or gallops, 2+ radial pulses Respiratory: Lungs clear to auscultation B/L, normal respiratory effort Abdomen: Soft non tender, no rebound or guarding, no peritoneal signs Extremities: No edema noted in the LE B/L, no tenderness to palpation Neurologic: Alert and oriented, speech clear Skin: No rashes or lesions Psych: Appropriate mood and behavior Medical Decision Making MEDICAL DECISION MAKING Number and Complexity of Problems Differential Diagnosis: [] [facility] Data External documents reviewed: [] My EKG interpretation: [] My CT interpretation: [] My X-ray interpretation: [] My Ultrasound interpretation: [] Decision rules/scores evaluated: [] Discussed with: [] Treatment and Disposition ED Course: Patient is a 68-year-old male presenting to the ED for evaluation of concerns for opiate withdrawal, nerve pain. Patient nontoxic and on arrival, no acute stress is well-appearing on examination. Patient has been seen at this facility several times in the last 10 days for similar complaints. I discussed with patient he needs to speak with his pain management doctor as we cannot keep treating chronic pain in the ED. Patient requesting both medications for pain and anxiety I explained I would not be prescribing him both a narcotic and a benzodiazepine. Patient is given a dose of IM morphine in addition to ODT Zofran. He is discharged home he is to follow-up with his pain management doctor. Shared decision making: [] Code status: [] Assessment/Plan Chronic leg pain (M79.606: Pain in leg, unspecified) Other chronic pain (G89.29: Other chronic pain) Orders: morphine, 4 mg = 1 mL, Injection, IntraMuscular, Once, Stop date 05/03/24 4:25:00 EST, STAT, Start date 05/03/24 4:25:00 EST, 05/03/24 4:25:00 EST ondansetron, 4 mg = 1 tab(s), Tab-Dis, Oral, Once, Stop date 05/03/24 4:25:00 EST, STAT, Start date 05/03/24 4:25:00 EST, 05/03/24 4:25:00 EST Medications Administered Given morphine 4 mg/mL Inj, 4 mg, IntraMuscular Zofran ODT 4 mg Tab-Dis, 4 mg, Oral Disposition Plan Discharge Prescription List Prescriptions No active prescription medications Follow-up With When Contact Information TIKI DOCKERY In 3 days 05/06/[address], [address] [place] [id number] SOLO (1) Additional Instructions: Follow-up with your pain management doctor and primary care doctor for further evaluation and management. 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 Medications Inpatient No active inpatient medications Home Adult Aspirin 81 mg oral tablet, chewable, 81 mg= 1 tab(s), Chewed, Daily amLODIPine 10 mg Tab, 10 mg= 1 tab(s), Oral, Daily Ativan 1 mg Tab, 1 mg= 1 tab(s), Oral, Bedtime atorvastatin 10 mg Tab, 10 mg= 1 tab(s), Oral, Daily Breo Ellipta 100 mcg-25 mcg inhalation powder, 1 puff(s), Inhalation, Daily busPIRone 30 (more content not included)... Normal [facility] Comment on above: Result Comment: Elec tronically Signed By: Chelsea Ortiz DO\santiago\Date and Time Signed: 05/03/24 04:42 EST ED Patient Summaryon 025 ED Patient Summary ED Patient Summary [address] [address] Patient Discharge Instructions Person Information Name: ALTAGRACIA CONWAY Age: 68 Years Arrival Date: 05/03/2024 04:03:13 Discharge Diagnosis: Chronic leg pain; Other chronic pain Primary Care Physician: TIKI DOCKERY DO Provider Information Primary Provider: Chelsea Ortiz DO Advanced Public Works Inspector:None The exam and treatment you received in the Emergency Department were for an urgent problem and are not intended as complete care. It is important that you follow up with a doctor, nurse practitioner, or physician???s sales assistant displays for ongoing care. If your symptoms become [...] With: Address: When: TIKI DOCKERY [address] [facility], [facility] [address] [place] [address] Business (1) In 3 days 05/06/2024 Comments: Follow-up with your pain management doctor and primary care doctor for further evaluation and management. In the event that this physician does not participate in your insurance network, please consult with your insurance company to find a nearby participating provider. Patient Education Materials: Peripheral Neuropathy A MESSAGE TO ALL PATIENTS REGARDING OPIOIDS PRESCRIPTION OPIOIDS: WHAT YOU NEED TO KNOW Prescription opioids can be used to help relieve wyifadvf-qb-[id number] pain and are often prescribed following a [...] Visit www.cdc.gov/drugoverdos e to learn about the ris (more content not included)... Normal [facility] BMPon 04-26-2024 Anion gap [Moles/Vol] 11 mmol/L Normal 6-16 [facility] Comment on above: Performed By: #### 2 [id number] #### [facility] [address] [place] [address] Calcium [Mass/Vol] 9.1 mg/dL Normal 8.9-11.1 [facility] Comment on above: Performed By: #### 2 [id number] #### [facility] [address] [place] [address] Chloride [Moles/Vol] 103 mmol/L Normal 101-111 [facility] Comment on above: Performed By: #### 2 [id number] #### [facility] [address] [place] [address] CO2 [Moles/Vol] 23 mmol/L Normal 21-[address] [facility] Comment on above: Performed By: #### 2 [id number] #### [facility] [address] [place] [address] Creatinine [Mass/Vol] 1.3 mg/dL Normal 0.5-1.3 [facility] Comment on above: Performed By: #### 2 [id number] #### [facility] [address] [place] [address] Glucose [Mass/Vol] 381 mg/dL High 55-199 [facility] Comment on above: Performed By: #### 2 [id number] #### [facility] [address] [place] [address] Potassium [Moles/Vol] 4.3 mmol/L Normal 3.5-5.3 [facility] Comment on above: Performed By: #### 2 [id number] #### [facility] [address] [place] [address] Sodium [Moles/Vol] 133 mmol/L Low 135-145 [facility] Comment on above: Performed By: #### 2 [id number] #### [facility] [address] [place] [address] Urea nitrogen [Mass/Vol] 35 mg/dL High 5-21 [facility] Comment on above: Performed By: #### 2 [id number] #### [facility] [address] [place] [address] Urea nitrogen/Creatinine [Mass ratio] 27 No Units High 10-20 [facility] Comment on above: Performed By: #### 2 [id number] #### [facility] [address] [place] [address] CBC w/ Auto Diffon 5 Basophils/100 WBC (Bld) 0.7 % Normal 0.0-2.0 [facility] Comment on above: Performed By: #### 2 [id number] #### [facility] [address] [place] [address] Basophils/Leukocytes Auto (Bld) [Pure # fraction] 0.1 E9/L Normal 0.0-0.2 [facility] Comment on above: Performed By: #### 2 [id number] #### [facility] [address] [place] [address] Eosinophils (Bld) [#/Vol] 0.3 E9/L Normal 0.0-0.5 [facility] Comment on above: Performed By: #### 2 [id number] #### [facility] [address] [place] [address] Eosinophils/100 WBC (Bld) 3.8 % Normal 0.0-8.0 [facility] Comment on above: Performed By: #### 2 [id number] #### [facility] [address] [place] [address] Erythrocyte distribution width (RBC) [Ratio] 15.0 % High 10.9-14.2 [facility] Comment on above: Performed By: #### 2 [id number] #### [facility] [address] [place] [address] Hematocrit (Bld) [Volume fraction] 33.5 % Low 37.7-49.0 [facility] Comment on above: Performed By: #### 2 [id number] #### [facility] [address] [place] [address] Hemoglobin (Bld) [Mass/Vol] 11.5 g/dL Low 13.5-17.5 [facility] Comment on above: Performed By: #### 2 [id number] #### [facility] [address] [place] [address] Lymphocytes (Bld) [#/Vol] 1.6 E9/L Normal 1.0-4.0 [facility] Comment on above: Performed By: #### 2 [id number] #### [facility] [address] [place] [id number] Lymphocytes/100 WBC (Bld) 20.2 % Normal 14.0-50.0 [facility] Comment on above: Performed By: #### 2 [id number] #### [facility] [address] [place] [address] MCH (RBC) [Entitic mass] 31.1 pg Normal 27.0-34.0 [facility] Comment on above: Performed By: #### 2 [id number] #### [facility] [address] [place] [address] MCHC (RBC) [Mass/Vol] 34.5 g/dL Normal 31.4-36.0 [facility] Comment on above: Performed By: #### 2 [id number] #### [facility] [address] [place] [address] MCV (RBC) [Entitic vol] 90.2 fL Normal 80.0-100.0 [facility] Comment on above: Performed By: #### 2 [id number] #### [facility] [address] [place] [address] Monocytes (Bld) [#/Vol] 0.6 E9/L Normal 0.2-1.0 [facility] Comment on above: Performed By: #### 2 [id number] #### [facility] [address] [place] [address] Neutrophils (Bld) [#/Vol] 5.5 E9/L Normal 2.0-7.5 [facility] Comment on above: Performed By: #### 2 [id number] #### [facility] [address] [place] [address] Neutrophils/100 WBC (Bld) 68.1 % Normal 36.0-75.0 [facility] Comment on above: Performed By: #### 2 [id number] #### [facility] [address] [place] [address] Platelet 186.0 E9/L Normal 150.0-500.0 [facility] Comment on above: Performed By: #### 2 [id number] #### [facility] [address] [place] [address] Platelet mean volume (Bld) [Entitic vol] 9.4 fL Normal 6.4-10.8 [facility] Comment on above: Performed By: #### 2 [id number] #### [facility] [address] [place] [address] RBC (Bld) [#/Vol] 3.7 E12/L Low 4.3-5.9 [facility] Comment on above: Performed By: #### 2 [id number] #### [facility] [address] [place] [address] WBC corrected for nucl RBC Auto (Bld) [#/Vol] 8.1 E9/L Normal 4.0-11.[address] [facility] Comment on above: Performed By: #### 2 [id number] #### [facility] [address] [place] [address] CHEMISTRYOrdered By: SYSTEM SYSTEM on 04-26-2024 Anion [...] 55.2 s High 25.1 - 36.5 second(s) [facility] Comment on above: Interpretive Data: [...] the same coagulation reagent and instrumentation as [facility]. Currently there are no coagulation studies available worldwide for children to 14 days, and no normal ranges. Heparin therapeutic range (represented by Anti-Factor Xa activity of 0.2 - 0.4 U/mL) corresponds to PTT of 56.6 - 109.0 sec. INR Coag (PPP) [Relative time] 1.04 {INR} Invalid Interpretation Code [facility] Comment on above: Interpretive Data: I NR results are specifically intended to assess patients stabilized on long-term Anticoagulation therapy suggested INR s Less Intensive Anticoagulation 2.0 3.0 Conventional Range 3.0 4.5 PT Coag (PPP) [Time] 11.7 s Normal 9.4 - 1 2.5 second(s) [facility] Comment on above: Interpretive Data: [...] the same coagulation reagent and instrumentation as [facility]. Currently there are no coagulation studies available worldwide for children to 14 days, and no normal ranges. ED Clinical Summaryon 2024 ED Clinical Summary ED Clinical Summary [place] [id number] ED Clinical Summary Person Information Name: MAN ALTAGRACIA B [place] Age: 68 Years : 1955 Sex: Male Language: Finnish PCP: TIKI DOCKERY DO Marital Status: Visit [...] 04/26/2024 13:55:54 04/26/2024 13:55:54 ADDRESS: [address] [place] [phone] PHYS DOC NOTES: MEDICAL INFORMATION: Prescriptions Given: [...] Left against medical advice; Opioid withdrawal Normal [facility] ED Note-Nursingon 04-26-2024 ED Note-Nursing ED Note-Nursing RN called [facility] to see what options we could provide for pt. [facility] stated we could go the detox way or just speaking with peer support. RN offered pt both options and pt stated he wanted to speak with his doctor prior to deciding on a treatment option Normal [facility] ED Patient Summaryon 025 ED Patient Summary ED Patient Summary [address] [address] Patient Discharge Instructions Person Information Name: ALTAGRACIA CONWAY Age: 68 Years Arrival Date: 04/26/2024 12:12:51 Discharge Diagnosis: Left against medical advice; Opioid withdrawal Primary Care Physician: TIKI DOCKERY DO Provider Information Primary Provider: Advanced Public Works Inspector:Terrence Burt PA-C The exam and treatment you received in the Emergency Department were for an urgent problem and are not intended as complete care. It is important that you follow up with a doctor, nurse practitioner, or physician???s sales assistant displays for ongoing care. If your symptoms become [...] opioids can be used to help relieve iiiiahsg-uh-lxwmcm pain and are often prescribed following a [...] be struggling with addiction, tell your health intensive care unit registered nurse and ask for guidance or call [facility]???S National Helpline at 2-517-143-MAGR. v Source: [place] Department of Health and Human (more content not included)... Normal [facility] HEMATOLOGYOrdered By: SYSTEM SYSTEM on 04-26-2024 Basophils/100 [...] 11.0 E9/L Remisol Heme Influenza A&B Agon Influenzae A Ag Negative Normal Negative [facility] Comment on above: Performed By: #### 1 [id number] #### [facility] [address] [place] [address] Influenzae B Ag Negative Normal Negative [facility] Comment on above: Result Comment: Test sensitivity and specificity vary for age group, specimen type, antigen types, and prevalence of disease. Test results must be evaluated in conjunction with other clinical data available to the physician. Individuals who received nasally administered Influenza A vaccine may have positive test results up to 3 days after vaccination. Performed By: #### 1 [id number] #### [facility] [address] [place] [address] MICRO OTHER TESTSOrdered By: Iona Quiroga on 04-26-2024 Influenzae A Ag Negative (04/26/24 1:01 PM) Normal Negative [facility] Sero Influenzae B Ag Negative 1 (04/26/24 1:01 PM) Normal Negative [facility] Comment on above: Interpretive Data: T [...] NEG Ctl Pass (04/26/24 1:01 PM) Normal [facility] Rapid COV Int POS Ctl Pass (04/26/24 1:01 PM) Normal [facility] SARS-CoV+SARS-CoV-2 (COVID-19) Ag IA.rapid Ql (Resp) Not Detected 6 (04/26/24 1:01 PM) Normal Not Detected [facility] Comment on above: Interpretive Data: Marylou [employer] Veritor System for Rapid Detection of SARS-CoV-2 [...] viruses or pathogens; and, in the [facility], this test is only authorized for [...] Coag (PPP) [Time] 55.2 second(s) High 25.1-36.5 [facility] Comment on above: Result Comment: Para meter [...] the same coagulation reagent and instrumentation as [facility]. Currently there are no coagulation studies available worldwide for children to 14 days, and no normal ranges. Heparin therapeutic range (represented by Anti-Factor Xa activity of 0.2 - 0.4 U/mL) corresponds to PTT of 56.6 - 109.0 sec. Performed By: #### 1 [id number] #### [facility] [address] [place] [address] INR Coag (PPP) [Relative time] 1.04 {INR} Invalid Interpretation Code [facility] Comment on above: Result Comment: INR results are specifically intended to assess patients stabilized on long-term Anticoagulation therapy suggested INR???s ???Less Intensive Anticoagulation??? 2.0 ??? 3.0 Conventional Range 3.0 ??? 4.5 Performed By: #### 1 [id number] #### [facility] [address] [place] [address] PT Coag (PPP) [Time] 11.7 second(s) Normal 9.4-12.5 [facility] Comment on above: Result Comment: 15 d [...] the same coagulation reagent and instrumentation as [facility]. Currently there are no coagulation studies available worldwide for children to 14 days, and no normal ranges. Performed By: #### 1 [id number] #### [facility] [address] [place] [address] Rapid COVID Antigen ([facility])on 04-26-2024 Rapid COV Int NEG Ctl Pass Normal [facility] Comment on above: Performed By: #### 2 [id number] #### [facility] [address] [place] [address] Rapid COV Int POS Ctl Pass Normal [facility] Comment on above: Performed By: #### 2 [id number] #### [facility] [address] [place] [address] SARS-CoV+SARS-CoV-2 (COVID-19) Ag IA.rapid Ql (Resp) Not detected Normal Not Detected [facility] Comment on above: Result Comment: The [employer]??? System for Rapid Detection of SARS-CoV-2 is [...] or revoked sooner. Performed By: #### 2 [id number] #### [facility] [address] [place] [address] Troponin 0 Hr.on 04-26-2024 Troponin HS 6.40 pg/mL Low 15.90-38.40 [facility] Comment on above: Result Comment: The 95% CI (Confidence Interval) PPV (Positive Predictive Value) for myocardial infarction in females is 38 pg/mL, in males 51 pg/mL. The results should be used in conjunction with clinical conditions of myocardial infarction. (Access High Sensitivity Troponin I Instructions For Use, Alen Josephine, October 2017) Performed By: #### 1 [id number] ####[facility] [address] [place] [address] XR Chest Single Viewon 04-26 XR Chest [...] MD Transcribed by: MIKIE Technologist: AO Normal [facility] eGFRon 04-26-2024 eGFR 60 mL/min/1.73 m2 Normal >=59 [facility] Comment on above: Performed By: #### 1 [id number] #### [facility] [address] [place] [address] CBC w/ Auto Diffon 5 Basophils/100 WBC (Bld) 0.5 % Normal 0.0-2.0 [facility] Comment on above: Performed By: #### 2 [id number] #### [facility] [address] [place] [address] Basophils/Leukocytes Auto (Bld) [Pure # fraction] 0.1 E9/L Normal 0.0-0.2 [facility] Comment on above: Performed By: #### 2 [id number] #### [facility] [address] [place] [address] Eosinophils (Bld) [#/Vol] 0.0 E9/L Normal 0.0-0.5 [facility] Comment on above: Performed By: #### 2 [id number] #### [facility] [address] [place] [address] Eosinophils/100 WBC (Bld) 0.3 % Normal 0.0-8.0 [facility] Comment on above: Performed By: #### 2 [id number] #### [facility] [address] [place] [address] Erythrocyte distribution width (RBC) [Ratio] 14.7 % High 10.9-14.2 [facility] Comment on above: Performed By: #### 2 [id number] #### [facility] [address] [place] [address] Hematocrit (Bld) [Volume fraction] 35.8 % Low 37.7-49.0 [facility] Comment on above: Performed By: #### 2 [id number] #### [facility] [address] [place] [address] Hemoglobin (Bld) [Mass/Vol] 12.4 g/dL Low 13.5-17.5 [facility] Comment on above: Performed By: #### 2 [id number] #### [facility] [address] [place] [address] Lymphocytes (Bld) [#/Vol] 1.5 E9/L Normal 1.0-4.0 [facility] Comment on above: Performed By: #### 2 [id number] #### [facility] [address] [place] [address] Lymphocytes/100 WBC (Bld) 15.6 % Normal 14.0-50.0 [facility] Comment on above: Performed By: #### 2 [id number] #### [facility] [address] [place] [address] MCH (RBC) [Entitic mass] 31.0 pg Normal 27.0-34.0 [facility] Comment on above: Performed By: #### 2 [id number] #### [facility] [address] [place] [address] MCHC (RBC) [Mass/Vol] 34.5 g/dL Normal 31.4-36.0 [facility] Comment on above: Performed By: #### 2 [id number] #### [facility] [address] [place] [address] MCV (RBC) [Entitic vol] 89.8 fL Normal 80.0-100.0 [facility] Comment on above: Performed By: #### 2 [id number] #### [facility] [address] [place] [address] Monocytes (Bld) [#/Vol] 0.6 E9/L Normal 0.2-1.0 [facility] Comment on above: Performed By: #### 2 [id number] #### [facility] [address] [place] [address] Neutrophils (Bld) [#/Vol] 7.5 E9/L Normal 2.0-7.5 [facility] Comment on above: Performed By: #### 2 [id number] #### [facility] [address] [place] [address] Neutrophils/100 WBC (Bld) 77.0 % High 36.0-75.0 [facility] Comment on above: Performed By: #### 2 [id number] #### [facility] [address] [place] [address] Platelet mean volume (Bld) [Entitic vol] 9.3 fL Normal 6.4-10.8 [facility] Comment on above: Performed By: #### 2 [id number] #### [facility] [address] [place] [address] Platelets (Bld) [#/Vol] 217.0 E9/L Normal 150.0-500.0 [facility] Comment on above: Performed By: #### 2 [id number] #### [facility] [address] [place] [address] RBC (Bld) [#/Vol] 4.0 E12/L Low 4.3-5.9 [facility] Comment on above: Performed By: #### 2 [id number] #### [facility] [address] [place] [address] WBC corrected for nucl RBC Auto (Bld) [#/Vol] 9.7 E9/L Normal 4.0-11.[address] [facility] Comment on above: Performed By: #### 2 [id number] #### [facility] [address] [place] [address] CHEMISTRYOrdered By: SYSTEM SYSTEM on 04-24-2024 Albumin [...] 04-24-2024 Albumin [Mass/Vol] 4.6 g/dL Normal 3.3-5.0 [facility] Comment on above: Performed By: #### 2 [id number] #### [facility] [address] [place] [address] Albumin/Globulin (S) [Mass conc ratio] 1.4 Normal 1.1-2.2 [facility] Comment on above: Performed By: #### 2 [id number] #### [facility] [address] [place] [address] ALP [Catalytic activity/Vol] 148 Int._Unit/L High 21-98 [facility] Comment on above: Performed By: #### 2 [id number] #### [facility] [address] [place] [address] ALT No additional P-5'-P [Catalytic activity/Vol] 23 Int._Unit/L Normal 6-46 [facility] Comment on above: Performed By: #### 2 [id number] #### [facility] [address] [place] [address] Anion gap [Moles/Vol] 13 mmol/L Normal 6-16 [facility] Comment on above: Performed By: #### 2 [id number] #### [facility] [address] [place] [address] AST [Catalytic activity/Vol] 31 Int._Unit/L Normal 5-43 [facility] Comment on above: Performed By: #### 2 [id number] #### [facility] [address] [place] [address] Bilirubin [Mass/Vol] 0.4 mg/dL Normal 0.0-1.1 [facility] Comment on above: Performed By: #### 2 [id number] #### [facility] [address] [place] [address] Calcium [Mass/Vol] 10.3 mg/dL Normal 8.9-11.1 [facility] Comment on above: Performed By: #### 2 [id number] #### [facility] [address] [place] [address] Chloride [Moles/Vol] 102 mmol/L Normal 101-111 [facility] Comment on above: Performed By: #### 2 [id number] #### [facility] [address] [place] [address] CO2 [Moles/Vol] 22 mmol/L Normal 21-[address] [facility] Comment on above: Performed By: #### 2 104854 #### [facility] [address] [place] [address] Creatinine [Mass/Vol] 1.3 mg/dL Normal 0.5-1.3 [facility] Comment on above: Performed By: #### 2 715124 #### [facility] [address] [place] [address] Globulin (S) [Mass/Vol] 3.3 g/dL Normal 1.4-4.0 [facility] Comment on above: Performed By: #### 2 [id number] #### [facility] [address] [place] [address] Glucose [Mass/Vol] 139 mg/dL Normal 55-199 [facility] Comment on above: Performed By: #### 2 [id number] #### [facility] [address] [place] [address] Potassium [Moles/Vol] 5.4 mmol/L High 3.5-5.3 [facility] Comment on above: Performed By: #### 2 [id number] #### [facility] [address] [place] [address] Protein [Mass/Vol] 7.9 g/dL High 6.0-7.8 [facility] Comment on above: Performed By: #### 2 [id number] #### [facility] [address] [place] [address] Sodium [Moles/Vol] 132 mmol/L Low 135-145 [facility] Comment on above: Performed By: #### 2 482157 #### [facility] [address] [place] [address] Urea nitrogen [Mass/Vol] 42 mg/dL High 5-21 [facility] Comment on above: Performed By: #### 2 [id number] #### [facility] [address] [place] [address] Urea nitrogen/Creatinine [Mass ratio] 32 No Units High 10-20 [facility] Comment on above: Performed By: #### 2 [id number] #### [facility] [address] [place] [address] COAGULATIONOrdered By: Lidia Landers on 04-24-2024 aPTT Coag (PPP) [Time] 35.9 s Normal 25.1 - 36.5 second(s) [facility] Comment on above: Interpretive Data: P gomez 15 days - 4 weeks 1 - [...] the same coagulation reagent and instrumentation as [facility]. Currently there are no coagulation studies available worldwide for children to 14 days, and no normal ranges. Heparin therapeutic range (represented by Anti-Factor Xa activity of 0.2 - 0.4 U/mL) corresponds to PTT of 56.6 - 109.0 sec. INR Coag (PPP) [Relative time] 1.01 {INR} Invalid Interpretation Code [facility] Comment on above: Interpretive Data: I NR results are specifically intended to assess patients stabilized on long-term Anticoagulation therapy suggested INR s Less Intensive Anticoagulation 2.0 3.0 Conventional Range 3.0 4.5 PT Coag (PPP) [Time] 11.3 s Normal 9.4 - 1 2.5 second(s) [facility] Comment on above: Interpretive Data: [...] the same coagulation reagent and instrumentation as [facility]. Currently there are no coagulation studies available worldwide for children to 14 days, and no normal ranges. ED Clinical Summaryon 2024 ED Clinical Summary ED Clinical Summary [address] [address] ED Clinical Summary Person Information Name: ALTAGRACIA [place] Age: 68 Years : 1955 Sex: Male Language: Finnish PCP: TIKI DOCKERY DO Marital Status: Visit [...] 04/24/2024 16:33:41 04/24/2024 16:33:41 04/24/2024 16:33:41 ADDRESS: [address] [place] [id number] PHYS DOC NOTES: MEDICAL INFORMATION: Prescriptions Given: Medications to Continue Taking That Have Changed [id number], [address] [place] [phone], [phone] START: ondansetron (ondansetron 4 mg Dis Tab) [...] By Mouth once a day (at bedtime). [facility] (S.A.S.H (SALINE, ADMINISTRATION OF DRUG, SALINE, [...] With: Addr (more content not included)... Normal [facility] ED Note-Physicianon 04-24-19 ED Note-Physician ED Note-Physician [...] day(s), # 10 tab(s), Refills(s) 0, Pharmacy: [id number], 188, cm, 04/24/24 13:55:00 EST, Height/Length Dosing, 87.6, kg, 04/24/24 13:55:00 EST, Weight Dosing promethazine, 25 mg = 1 mL, Injection, IntraMuscular, Once, Stop date 04/24/24 14:57:00 EST, STAT, Start date 04/24/24 14:57:00 EST CBC w/ Auto Diff Comprehensive Metabolic Panel eGFR Ethanol Level Lipase Level PT & PTT Medications Administered Given Dilaudid 1 mg/mL injectable solution, 1 mg, IntraMuscular [id number] [F], 25 mg, IntraMuscular Disposition Plan Discharge Prescription List Prescriptions ondansetron 4 mg Dis Tab, 4 mg= 1 tab(s), Oral, q6hr Follow-up With When Contact Information Your pain management physician In 3 days 04/27/2024 EST Additional Instructions: TIKI DOCKERY In [address], [facility] [address] [place] [address]- [facility] (1) Additional Instructions: Patient Education Opioid [...] toe (03/11/2015), 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 Medications Inpatient Dilaudid 1 mg/mL injectable solution, [...] bedtime) Fe (more content not included)... Normal [facility] Comment on above: Result Comment: Elec tronically Signed By: Mark Alves DO\.br\Date and Time Signed: 04/24/24 15:57 EST ED Patient Summaryon 025 ED Patient Summary ED Patient Summary [address] [address] Patient Discharge Instructions Person Information Name: ALTAGRACIA CONWAY Age: 68 Years Arrival Date: 04/24/2024 13:07:05 Discharge Diagnosis: Opioid withdrawal Primary Care Physician: TIKI DOCKERY DO Provider Information Primary Provider: Mark Alves DO Advanced Public Works Inspector:None The exam and treatment you received in the Emergency Department were for an urgent problem and are not intended as complete care. It is important that you follow up with a doctor, nurse practitioner, or physician???s sales assistant displays for ongoing care. If your symptoms become [...] With: Address: When: TIKI DOCKERY [address], [facility] [address] [place] [address] SOLO (1) In 3 days In the event that this physician does not participate in your insurance network, please consult with your insurance company to find a nearby participating provider. Patient Education Materials: Opioid Withdrawal A MESSAGE TO ALL PATIENTS REGARDING OPIOIDS PRESCRIPTION OPIOIDS: WHAT YOU NEED TO KNOW Prescription opioids can be used to help relieve tpdgdaxc-ep-mblheu pain and are often prescribed following a [...] struggling with (more content not included)... Normal [facility] Ethanolon 04-24-2024 Ethanol Lvl <10 Normal <=11 [facility] Comment on above: Performed By: #### 2 [id number] #### [facility] [address] [place] [address] HEMATOLOGYOrdered By: SYSTEM SYSTEM on 04-24-2024 Basophils/100 [...] Lipase [Catalytic activity/Vol] 4 U/L Low 13-58 [facility] Comment on above: Performed By: #### 2 [id number] #### [facility] [address] [place] [address] PT & PTTon 04-24-2024 aPTT Coag (PPP) [Time] 35.9 second(s) Normal 25.1-36.5 [facility] Comment on above: Result Comment: Para meter [...] the same coagulation reagent and instrumentation as [facility]. Currently there are no coagulation studies available worldwide for children to 14 days, and no normal ranges. Heparin therapeutic range (represented by Anti-Factor Xa activity of 0.2 - 0.4 U/mL) corresponds to PTT of 56.6 - 109.0 sec. Performed By: #### 1 [id number] #### [facility] [address] [place] [address] INR Coag (PPP) [Relative time] 1.01 {INR} Invalid Interpretation Code [facility] Comment on above: Result Comment: INR results are specifically intended to assess patients stabilized on long-term Anticoagulation therapy suggested INR???s ???Less Intensive Anticoagulation??? 2.0 ??? 3.0 Conventional Range 3.0 ??? 4.5 Performed By: #### 1 [id number] #### [facility] [address] [place] [address] PT Coag (PPP) [Time] 11.3 second(s) Normal 9.4-12.5 [facility] Comment on above: Result Comment: 15 d [...] the same coagulation reagent and instrumentation as [facility]. Currently there are no coagulation studies available worldwide for children to 14 days, and no normal ranges. Performed By: #### 1 [id number] #### [facility] [address] [place] [address] eGFRon 04-24-2024 eGFR 60 mL/min/1.73 m2 Normal >=59 [facility] Comment on above: Performed By: #### 1 [id number] #### [facility] [address] [place] [address] MR ANKLE RIGHT WO IV CONTRAS Ton [...] AUTO DIFFon BASOPHILS ABSOLUTE AUTO 0.1 [facility] Basophils/100 WBC (Bld) 1.4 % 0.2 - 2.0 % [facility] Eosinophils/100 WBC (Bld) 7.3 % High 0.9 - 7.0 % [facility] Erythrocyte distribution width (RBC) [Ratio] 14.9 % 11.0 - 15.0 % [facility] Hematocrit (Bld) [Volume fraction] 35.6 % Low 42.0 - 54.0 % [facility] Hemoglobin (Bld) [Mass/Vol] 11.8 g/dL Low 14.0 - 18.0 g/dL [facility] IMMATURE GRANULOCYTES ABS AUTO 0.02 [facility] Immature granulocytes/100 WBC (Bld) 0.3 % 0.0 - 0.5 % [facility] Interpretation and review of laboratory results Abnormal [facility] LYMPHOCYTES ABSOLUTE AUTO 1.9 [facility] Lymphocytes/100 WBC (Bld) 24.1 % 20.5 - 60.0 % [facility] MCH (RBC) [Entitic mass] 30.4 pg 25.9 - 34.0 pg [facility] MCHC (RBC) [Mass/Vol] 33.1 g/dL 29.9 - 35.2 g/dL [facility] MCV (RBC) [Entitic vol] 91.8 fL 80.0 - 94.0 fL [facility] MONOCYTES ABSOLUTE AUTO 0.5 [facility] Monocytes/100 WBC (Bld) 6.5 % 1.7 - 12.0 % [facility] NEUTROPHILS ABSOLUTE AUTO 4.8 [facility] Neutrophils/100 WBC (Bld) 60.4 % 43.0 - 75.0 % [facility] Platelet mean volume (Bld) [Entitic vol] 11.4 fL 9.5 - 13.5 fL [facility] EO # 0.6 [facility] TB PLT 198 [facility] TBH RBC 3.88 Low [facility] WBC 7.9 [facility] ECG 12-LEADon 04-17-2024 [place] [address] Electrocardiograph Report Signed Patient: ALTAGRACIA CONWAY MR#: [id number] : 1955 Acct:[id number] Age/Sex: 68 / M ADM Date: 04/17/24 Loc: PST Attending Dr: Clarence Syed M.D. Ordering Physician: Clarence Syed M.D. 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 Signed By: 04/17/24 1700 DD/ 0913 TD/TT: Financial Aids Officer: [employer] RadiologyDeloris MD - 04/17/2024 [place] [address] Electrocardiograph Report Signed Patient: ALTAGRACIA CONWAY MR#: [id number] : 1955 Acct:[id number] Age/Sex: 68 / M ADM Date: 04/17/24 Loc: PST Attending Dr: Clarence Syed M.D. Ordering Physician: Clarence Syed M.D. 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 Signed By: 04/17/24 1700 DD/ 0913 TD/TT: Financial Aids Officer: [facility] Radiology Study observation (narrative) [facility] No Panel InformationOrdered By: Radiologist Radiology on 04-17-2024 [facility] [employer] Work Phone: XR CHEST 2Von 04-17-2024 [place] [address] XRay Report Signed Patient: ALTAGRACIA CONWAY MR#: [id number] : 1955 Acct:[id number] Age/Sex: 68 / M ADM Date: 04/17/24 Loc: [facility] Attending Dr: Clarence Syed M.D. Ordering Physician: Clarence Syed M.D. Date of Service: 04/17/24 Procedure(s): XR chest 2V Accession Number(s): [id number] cc: TIKI DOCKERY Patrick M.D. [place] [id number] Patient Name: ALTAGRACIA CONWAY MRN: [id number] date: 1955 Sex: M Assigned Patient Location: [facility] Current Patient Location: [facility] Accession/Order Number: [id number] Exam Date: 04/17/2024 09:17 Report Date: 04/17/2024 [...] M.D. Signed By: 04/17/2443 DD/ 0 TD/TT: Financial Aids Officer: [employer] Radiology, Radiologi MD hang - 04/17/2024 [place] [address] XRay Report Signed Patient: ALTAGRACIA CONWAY MR#: [id number] : 1955 Acct:[id number] Age/Sex: 68 / M ADM Date: 04/17/24 Loc: [facility] Attending Dr: Clarence Syed M.D. Ordering Physician: Clarence Syed M.D. Date of Service: 04/17/24 Procedure(s): XR chest 2V Accession Number(s): [id number] cc: TIKI DOCKERY Patrick M.D. [place] [id number] Patient Name: ALTAGRACIA CONWAY MRN: [employer]:[id number] date: 1955 Sex: M Assigned Patient Location: [facility] Current Patient Location: [facility] Accession/Order Number: [id number] Exam Date: 04/17/2024 09:17 Report Date: 04/17/2024 [...] M.D. Signed By: 04/17/2443 DD/ 0 TD/TT: Financial Aids Officer: [facility] Radiology Study observation (narrative) [facility] Main OR Intraoperative Recor don 03-24-2024 Main OR Intraoperative Record Main OR Intraoperative Record IntraOp Document Type FTURO Summary Primary Physician: Clarence SYED MD Finalized Date/Time: 03/24/24 10:38:09 Pt. Name: ALTAGRACIA CONWAY./Sex: 1955 Male Med Rec #: [id number] Physician: Clarence SYED MD Financial #: [id number] Pt. Type: O Room/Bed: / Admit/Disch: 03/24/24 09:38:51 - Institution: Case Times FTURO Entry 1 Patient Times In Room 03/24/24 10:25:00 Out Room 03/24/24 10:37:00 Procedure Times Start 03/24/24 10:31:00 Stop 03/24/24 10:34:00 Anesthesia Times Last Modified By: Ladan Osorio 03/24/24 10:37:56 Case Attendance FTURO Entry 1 Entry 2 Entry 3 Case Attendee Clarence SYED MD, Kelsie E McClain [facility] Role Performed Surgeon - Primary Outside Dealer Sales Representative - Primary Scrub - Primary Time In [...] Position Verified Availability Equipment, Medication Time Out Clarence SYED MD, Verified (If Participants Ladan Osorio, Applicable) Nannette Cooley CST Time Out Complete 03/24/24 10:30:00 Allergies Reviewed? Yes Allergies Reviewed Self/Patient With Body Position Supine Prep Area PENIS Prep Agents Betadine Solution Skin. Condition Intact, [place], Warm, & Description N/A Dry Additional None [...] Osorio 03/24/24 10:38 Ladan Osorio 03/24/24 10:38 [facility] Main OR Preoperative Recordo n 03-24-2024 Main OR Preoperative Record Main OR Preoperative Record Holding Area Document Type FTURO Summary Primary Physician: Clarence SYED MD Finalized Date/Time: 03/24/24 10:24:56 Pt. Name: ALTAGRACIA CONWAY/Sex: 1955 Male Med Rec #: [id number] Physician: Clarence SYED MD Financial #: [id number] Pt. Type: O Room/Bed: / Admit/Disch: 03/24/24 [...] Complaints of Pain: No Skin Integrity Intact, [place], Warm, & Dry Vitals - EU Blood Pressure 143/81 Pulse 78 bpm Respirations 18 br/min SPO2 95 % Additional None RN Reviewed Yes Specimens Collected Last Modified By: Ladan Osorio 03/24/24 10:24:54 Finalized By: Ladan Osorio Document Signatures Signed By: Chelsey Ochoa LPN 03/24/24 10:08 Ladan Osorio 03/24/24 10:24 Normal [facility] Operative Reporton Operative Report Operative Report Patient: [...] prostate and a high median bar Normal [facility] Comment on above: Result Comment: Elec tronically [...] mGy = . DAP = . Normal [facility] Amylaseon 02-17-2024 Amylase [Catalytic activity/Vol] 10 U/L Low 25-157 [facility] Comment on above: Performed By: #### 2 [id number] #### [facility] [address] [place] [address] CBC w/ Auto Diffon 4 Basophils/100 WBC (Bld) 0.7 % Normal 0.0-2.0 [facility] Comment on above: Performed By: #### 2 [id number] #### [facility] [address] [place] [address] Basophils/Leukocytes Auto (Bld) [Pure # fraction] 0.1 E9/L Normal 0.0-0.2 [facility] Comment on above: Performed By: #### 2 [id number] #### [facility] [address] [place] [address] Eosinophils (Bld) [#/Vol] 0.9 E9/L High 0.0-0.5 [facility] Comment on above: Performed By: #### 2 [id number] #### [facility] [address] [place] [address] Eosinophils/100 WBC (Bld) 7.4 % Normal 0.0-8.0 [facility] Comment on above: Performed By: #### 2 [id number] #### [facility] [address] [place] [address] Erythrocyte distribution width (RBC) [Ratio] 14.4 % High 10.9-14.2 [facility] Comment on above: Performed By: #### 2 [id number] #### [facility] [address] [place] [address] Hematocrit (Bld) [Volume fraction] 37.6 % Low 37.7-49.0 [facility] Comment on above: Performed By: #### 2 [id number] #### [facility] [address] [place] [address] Hemoglobin (Bld) [Mass/Vol] 12.8 g/dL Low 13.5-17.5 [facility] Comment on above: Performed By: #### 2 [id number] #### [facility] [address] [place] [address] Lymphocytes (Bld) [#/Vol] 2.0 E9/L Normal 1.0-4.0 [facility] Comment on above: Performed By: #### 2 [id number] #### [facility] [address] [place] [address] Lymphocytes/100 WBC (Bld) 17.0 % Normal 14.0-50.0 [facility] Comment on above: Performed By: #### 2 [id number] #### [facility] [address] [place] [address] MCH (RBC) [Entitic mass] 30.6 pg Normal 27.0-34.0 [facility] Comment on above: Performed By: #### 2 [id number] #### [facility] [address] [place] [address] MCHC (RBC) [Mass/Vol] 34.0 g/dL Normal 31.4-36.0 [facility] Comment on above: Performed By: #### 2 [id number] #### [facility] [address] [place] [address] MCV (RBC) [Entitic vol] 90.1 fL Normal 80.0-100.0 [facility] Comment on above: Performed By: #### 2 [id number] #### [facility] [address] [place] [address] Monocytes (Bld) [#/Vol] 1.0 E9/L Normal 0.2-1.0 [facility] Comment on above: Performed By: #### 2 [id number] #### [facility] [address] [place] [address] Neutrophils (Bld) [#/Vol] 7.9 E9/L High 2.0-7.5 [facility] Comment on above: Performed By: #### 2 [id number] #### [facility] [address] [place] [address] Neutrophils/100 WBC (Bld) 66.2 % Normal 36.0-75.0 [facility] Comment on above: Performed By: #### 2 [id number] #### [facility] [address] [place] [address] Platelet 268.0 E9/L Normal 150.0-500.0 [facility] Comment on above: Performed By: #### 2 [id number] #### [facility] [address] [place] [address] Platelet mean volume (Bld) [Entitic vol] 8.9 fL Normal 6.4-10.8 [facility] Comment on above: Performed By: #### 2 [id number] #### [facility] [address] [place] [address] RBC (Bld) [#/Vol] 4.2 E12/L Low 4.3-5.9 [facility] Comment on above: Performed By: #### 2 [id number] #### [facility] [address] [place] [address] WBC corrected for nucl RBC Auto (Bld) [#/Vol] 11.9 E9/L High 4.0-11.[address] [facility] Comment on above: Performed By: #### 2 [id number] #### [facility] [address] [place] [address] CDiff PCRon 02-17-2024 C. difficile toxin A+B Ql (Stl) YES Normal [facility] Comment on above: Performed By: #### 3 [id number] #### [facility] [address] [place] [address] CHEMISTRYOrdered By: SYSTEM SYSTEM on 02-17-2024 Albumin [...] 02-17-2024 Albumin [Mass/Vol] 3.9 g/dL Normal 3.3-5.0 [facility] Comment on above: Performed By: #### 2 [id number] #### [facility] [address] [place] [address] Albumin/Globulin (S) [Mass conc ratio] 1.2 Normal 1.1-2.2 [facility] Comment on above: Performed By: #### 2 [id number] #### [facility] [address] [place] [address] ALP [Catalytic activity/Vol] 96 Int._Unit/L Normal 21-98 [facility] Comment on above: Performed By: #### 2 [id number] #### [facility] [address] [place] [address] ALT No additional P-5'-P [Catalytic activity/Vol] 10 Int._Unit/L Normal 6-46 [facility] Comment on above: Performed By: #### 2 [id number] #### [facility] [address] [place] [address] Anion gap [Moles/Vol] 12 mmol/L Normal 6-16 [facility] Comment on above: Performed By: #### 2 [id number] #### [facility] [address] [place] [address] AST [Catalytic activity/Vol] 12 Int._Unit/L Normal 5-43 [facility] Comment on above: Performed By: #### 2 [id number] #### [facility] [address] [place] [address] Bilirubin [Mass/Vol] 0.4 mg/dL Normal 0.0-1.1 [facility] Comment on above: Performed By: #### 2 [id number] #### [facility] [address] [place] [address] Calcium [Mass/Vol] 9.9 mg/dL Normal 8.9-11.1 [facility] Comment on above: Performed By: #### 2 [id number] #### [facility] [address] [place] [address] Chloride [Moles/Vol] 99 mmol/L Low 101-111 [facility] Comment on above: Performed By: #### 2 [id number] #### [facility] [address] [place] [address] CO2 [Moles/Vol] 28 mmol/L Normal 21-[address] [facility] Comment on above: Performed By: #### 2 [id number] #### [facility] [address] [place] [address] Creatinine [Mass/Vol] 1.3 mg/dL Normal 0.5-1.3 [facility] Comment on above: Performed By: #### 2 [id number] #### [facility] [address] [place] [address] Globulin (S) [Mass/Vol] 3.3 g/dL Normal 1.4-4.0 [facility] Comment on above: Performed By: #### 2 [id number] #### [facility] [address] [place] [address] Glucose [Mass/Vol] 156 mg/dL Normal 55-199 [facility] Comment on above: Performed By: #### 2 [id number] #### [facility] [address] [place] [address] Potassium [Moles/Vol] 4.1 mmol/L Normal 3.5-5.3 [facility] Comment on above: Performed By: #### 2 [id number] #### [facility] [address] [place] [address] Protein [Mass/Vol] 7.2 g/dL Normal 6.0-7.8 [facility] Comment on above: Performed By: #### 2 [id number] #### [facility] [address] [place] [address] Sodium [Moles/Vol] 135 mmol/L Normal 135-145 [facility] Comment on above: Performed By: #### 2 [id number] #### [facility] [address] [place] [address] Urea nitrogen [Mass/Vol] 26 mg/dL High 5-21 [facility] Comment on above: Performed By: #### 2 [id number] #### [facility] [address] [place] [address] Urea nitrogen/Creatinine [Mass ratio] 20 No Units Normal 10-20 [facility] Comment on above: Performed By: #### 2 [id number] #### [facility] [address] [place] [address] Enteric Panel by PCRon 02-16 C. coli+jejuni+upsaliensis DNA ANN+non-probe Ql (Stl) Not detected Normal [facility] Comment on above: Result Comment: Test ing was performed utilizing reverse director consumer affairs (RT), polymerase chain reaction (PCR), and array [...] nulcleic acid test. Performed By: #### 1 [id number] #### [facility] [address] [place] [id number] E. coli stx1+stx2 genes ANN+non-probe Ql (Stl) Negative Normal [facility] Comment on above: Performed By: #### 1 [id number] #### [facility] [address] [place] [address] Enteric Panel Intrl QC Pass Normal [facility] Comment on above: Result Comment: Test ing was performed utilizing reverse director consumer affairs (RT), polymerase chain reaction (PCR), and array [...] 1 and 2. Performed By: #### 1 [id number] #### [facility] [address] [place] [address] Norovirus genogroup I+II RNA ANN+non-probe Ql (Stl) Not detected Normal [facility] Comment on above: Performed By: #### 1 [id number] #### [facility] [address] [place] [address] Rotavirus A RNA ANN+non-probe Ql (Stl) Not detected Normal [facility] Comment on above: Performed By: #### 1 [id number] #### [facility] [address] [place] [address] S. enterica+bongori DNA ANN+non-probe Ql (Stl) Not detected Normal [facility] Comment on above: Result Comment: This test result should be correlated with clinical presentations and medical history by a healthcare provider to determine its clinical significance. Performed By: #### 1 [id number] #### [facility] [address] [place] [address] Shigella species+EIEC invasion plasmid antigen H ipaH gene ANN+non-probe Ql (Stl) Not detected Normal [facility] Comment on above: Performed By: #### 1 [id number] #### [facility] [address] [place] [address] V. cholerae+parahaemolytic us+vulnificus DNA ANN+non-probe Ql (Stl) Not detected Normal [facility] Comment on above: Performed By: #### 1 [id number] #### [facility] [address] [place] [address] Y. enterocolitica DNA ANN+non-probe Ql (Stl) Not detected Normal [facility] Comment on above: Performed By: #### 1 [id number] #### [facility] [address] [place] [address] [facility] CBC W/ AUTO DIFFon 12-0 EOSINOPHILS/100 LEUKOCYTES:NFR:PT:BLD:Q N:AUTOMATED COUNT 7.4 % 0.0 - 8.0 % [facility] EOSINOPHILS:NCNC:PT:BLD :QN: 0.9 High [facility] BASOPHILS/LEUKOCYTES:NF R.DF:PT:BLD:QN:AUTOMATE D COUNT 0.1 [facility] ERYTHROCYTE MEAN CORPUSCULAR HEMOGLOBIN CONCENTRATION:MCNC:PT:R BC:QN 34 [facility] ERYTHROCYTE MEAN CORPUSCULAR HEMOGLOBIN:ENTMASS:PT:R BC:QN 30.6 pg 27.0 - 34.0 pg [facility] ERYTHROCYTE MEAN CORPUSCULAR VOLUME:ENTVOL:PT:RBC:QN :AUTOMATED COUNT 90.1 fL 80.0 - 100.0 fL [facility] ERYTHROCYTES:NCNC:PT:BL D:QN:AUTOMATED COUNT 4.2 Low [facility] HEMOGLOBIN:MCNC:PT:BLD: QN: 12.8 Low [facility] LEUKOCYTES 11.9 High [facility] MONOCYTES:NCNC:PT:BLD:Q N:AUTOMATED COUNT 1 [facility] NEUTROPHILS:NCNC:PT:BLD :QN:AUTOMATED COUNT 7.9 High [facility] Interpretation and review of laboratory results Abnormal [facility] Lymphocytes/100 WBC (Bld) 17 % 14.0 - 50.0 % [facility] LYMPHOCYTES:NCNC:PT:BLD :QN: 2 [facility] Platelets (Bld) [#/Vol] 268 10*3/uL [facility] Original Ordering Provider: DO TIKI SOLORIO [facility] Fecal WBC Lactoferrinon 12-0 Lactoferrin Ql (Stl) Positive Abnormal Negative [facility] Comment on above: Result Comment: The semi-quantitative detection of elevated levels of fecal lactoferrin is a marker for fecal leukocytes and an indication of intestinal inflammation. Performed By: #### 3 [id number] #### [facility] [address] [place] [address] HEMATOLOGYOrdered By: SYSTEM SYSTEM on 02-17-2024 Basophils/100 [...] Lipase [Catalytic activity/Vol] 4 U/L Low 13-58 [facility] Comment on above: Performed By: #### 2 [id number] #### [facility] [address] [place] [address] MICRO OTHER TESTSOrdered By: Anushka Lopez on 02-17-2024 Lactoferrin Ql (Stl) Positive 1 *ABN* (02/17/24 8:30 AM) Invalid Interpretation Code Negative [facility] Comment on above: Interpretive Data: T he semi-quantitative detection of elevated levels of fecal lactoferrin is a marker for fecal leukocytes and an indication of intestinal inflammation. eGFRon 02-17-2024 eGFR 60 mL/min/1.73 m2 Normal >=59 [facility] Comment on above: Performed By: #### 1 [id number] #### [facility] [address] [place] [address] ED Note-Physicianon 02-11-20 24 ED Note-Physician ED Note-Physician Basic Information Time Seen: Davey Raza PA-C 02/10/2024 15:35 Chief Complaint pt to ER [...] Making Patient seen and evaluated with physician sales assistant displays student. I had a [id number] interaction with the patient. I personally performed [...] day(s), # 6 tab(s), Refills(s) 0, Pharmacy: [id number], 188, cm, 02/10/24 15:24:00 EST, Height/Length Dosing, [...] day(s), # 21 tab(s), Refills(s) 0, Pharmacy: [facility] #[id number], 188, cm, 02/10/24 15:24:00 EST, Height/Length Dosing, [...] In 3 days 02/13/[address], [address] [place] [address]- [facility] (1) Additional Instructions: Patient Education Chronic Obstructive [...] made to (more content not included)... Normal [facility] Comment on above: Result Comment: Elec tronically Signed By: Mark Alves DO\.br\Date and Time Signed: 02/11/24 07:29 EST\.br\Electronically Co-Signed By: Davey Raza PA-C\.br\Date and Time Co-Signed: 02/10/24 16:53 EST ED Clinical Summaryon 2023 ED Clinical Summary ED Clinical Summary [place] [id number] ED Clinical Summary Person Information Name: ALTAGRACIA CONWAY [facility] Age: 68 Years : 1955 Sex: Male Language: Finnish PCP: TIKI DOCKERY DO Marital Status: Visit [...] 02/10/2024 16:56:17 02/10/2024 16:56:17 02/10/2024 16:56:17 ADDRESS: [address] [place] [address] [id number] PHYS DOC NOTES: MEDICAL INFORMATION: Prescriptions Given: New Medications [id number], [address] [place], [place] [id number], [phone] azithromycin (azithromycin 250 mg Tab 5-day Dose [...] day. prega (more content not included)... Normal [facility] ED Patient Summaryon 024 ED Patient Summary ED Patient Summary [address] [address] Patient Discharge Instructions Person Information Name: MAN ALTAGRACIA Montiel Age: 68 Years Arrival Date: 02/10/2024 15:06:08 Discharge Diagnosis: COPD exacerbation Primary Care Physician: TIKI DOCKERY DO Provider Information Primary Provider: Mark Alves DO Advanced Public Works Inspector:Davey Raza PA-C The exam and treatment you received in the Emergency Department were for an urgent problem and are not intended as complete care. It is important that you follow up with a doctor, nurse practitioner, or physician???s sales assistant displays for ongoing care. If your symptoms become [...] With: Address: When: TIKI DOCKERY [address], [facility] [address] [place] [address] [facility] (1) In 3 days 02/13/2024 In the event that this physician does not participate in your insurance network, please consult with your insurance company to find a nearby participating provider. Patient Education Materials: Chronic Obstructive Pulmonary Disease A MESSAGE TO ALL PATIENTS REGARDING OPIOIDS PRESCRIPTION OPIOIDS: WHAT YOU NEED TO KNOW Prescription opioids can be used to help relieve ygpjwcvi-ot-gyfqyi pain and are often prescribed following a [...] your health (more content not included)... Normal [facility] Family Medicine Office/Clini c Noteon 02-10-2024 Family Medicine Office/Clinic Note Family Medicine Office/Clinic Note History of Present Illness I have reviewed and verified the staff HPI to be accurate for this encounter. Portions of this record have been created with voice recognition software. Occasional wrong-word or ???[id number]??? substitutions may have occurred due to the inherent limitations of voice recognition software. 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 Medications Adult Aspirin 81 mg oral tablet, [...] bedtime) Fetz (more content not included)... Normal [facility] Comment on above: Result Comment: Elec tronically [...] mGy = na DAP = na Normal [facility] Lab Miscellaneous-LCon 01-24 Lab Miscellaneous COMMENT Invalid Interpretation Code [facility] Comment on above: Result Comment: Test Ordered: [id number] C difficile Toxins A+B, EIA C difficile Toxins A+B, EIA Positive [A ] CB Reference Range: Negative Performed at: [facility] [address] [id number] PhD Miriam Sam Performed By: #### 1 [id number] #### [facility] [address] [place] [address] C. diff by PCRon 01-24-2024 Clostridium difficile by PCR Positive Abnormal Negative [facility] Comment on above: Order Comment: Order added by Discern Expert. Result Comment: Resu lts Called To Beti Randle( office) By And Read Back For Confirmation On 01/24/2024 13:54:22 EST. This test result should be correlated with clinical presentations and medical history by a healthcare provider to determine its clinical significance. Performed By: #### 4 [id number] #### [facility] [address] [place] [address] CDiff PCRon 01-24-2024 C. difficile toxin A+B Ql (Stl) No, PCR to follow Normal [facility] Comment on above: Performed By: #### 3 [id number] #### [facility] [address] [place] [address] Lab Miscellaneous-on 01-23 Source stool Invalid Interpretation Code [facility] Comment on above: Performed By: #### 1 [id number] #### [facility] [address] [place] [address] Test Code 059771 Invalid Interpretation Code [facility] Comment on above: Performed By: #### 1 [id number] #### [facility] [address] [place] [address] Test Name Cdiff Toxin EIA Invalid Interpretation Code [facility] Comment on above: Performed By: #### 1 [id number] #### [facility] [address] [place] [address] Reference Laboratory Testing Ordered By: Nissa Santo on 01-24-2024 Test Code 561247 1 Invalid Interpretation Code [facility] Test Name Cdiff Toxin EIA Invalid Interpretation Code [facility] CBC w/ Auto Diffon Basophils/100 WBC (Bld) 0.8 % Normal 0.0-2.0 [facility] Comment on above: Performed By: #### 2 [id number] #### [facility] [address] [place] [address] Basophils/Leukocytes Auto (Bld) [Pure # fraction] 0.1 E9/L Normal 0.0-0.2 [facility] Comment on above: Performed By: #### 2 [id number] #### [facility] [address] [place] [address] Eosinophils (Bld) [#/Vol] 0.7 E9/L High 0.0-0.5 [facility] Comment on above: Performed By: #### 2 [id number] #### [facility] [address] [place] [address] Eosinophils/100 WBC (Bld) 7.2 % Normal 0.0-8.0 [facility] Comment on above: Performed By: #### 2 [id number] #### [facility] [address] [place] [address] Erythrocyte distribution width (RBC) [Ratio] 14.0 % Normal 10.9-14.2 [facility] Comment on above: Performed By: #### 2 [id number] #### [facility] [address] [place] [address] Hematocrit (Bld) [Volume fraction] 38.7 % Normal 37.7-49.0 [facility] Comment on above: Performed By: #### 2 [id number] #### [facility] [address] [place] [address] Hemoglobin (Bld) [Mass/Vol] 13.3 g/dL Low 13.5-17.5 [facility] Comment on above: Performed By: #### 2 [id number] #### [facility] [address] [place] [address] Lymphocytes (Bld) [#/Vol] 2.0 E9/L Normal 1.0-4.0 [facility] Comment on above: Performed By: #### 2 [id number] #### [facility] [address] [place] [address] Lymphocytes/100 WBC (Bld) 20.2 % Normal 14.0-50.0 [facility] Comment on above: Performed By: #### 2 [id number] #### [facility] [address] [place] [address] MCH (RBC) [Entitic mass] 30.9 pg Normal 27.0-34.0 [facility] Comment on above: Performed By: #### 2 [id number] #### [facility] [address] [place] [address] MCHC (RBC) [Mass/Vol] 34.3 g/dL Normal 31.4-36.0 [facility] Comment on above: Performed By: #### 2 [id number] #### [facility] [address] [place] [address] MCV (RBC) [Entitic vol] 90.0 fL Normal 80.0-100.0 [facility] Comment on above: Performed By: #### 2 [id number] #### [facility] [address] [place] [address] Monocytes (Bld) [#/Vol] 0.7 E9/L Normal 0.2-1.0 [facility] Comment on above: Performed By: #### 2 [id number] #### [facility] [address] [place] [address] Neutrophils (Bld) [#/Vol] 6.5 E9/L Normal 2.0-7.5 [facility] Comment on above: Performed By: #### 2 [id number] #### [facility] [address] [place] [address] Neutrophils/100 WBC (Bld) 65.2 % Normal 36.0-75.0 [facility] Comment on above: Performed By: #### 2 [id number] #### [facility] [address] [place] [address] Platelet mean volume (Bld) [Entitic vol] 10.4 fL Normal 6.4-10.8 [facility] Comment on above: Performed By: #### 2 [id number] #### [facility] [address] [place] [address] Platelets (Bld) [#/Vol] 192.0 E9/L Normal 150.0-500.0 [facility] Comment on above: Performed By: #### 2 [id number] #### [facility] [address] [place] [address] RBC (Bld) [#/Vol] 4.3 E12/L Normal 4.3-5.9 [facility] Comment on above: Performed By: #### 2 [id number] #### [facility] [address] [place] [address] WBC corrected for nucl RBC Auto (Bld) [#/Vol] 10.0 E9/L Normal 4.0-11.[address] [facility] Comment on above: Performed By: #### 2 [id number] #### [facility] [address] [place] [address] CHEMISTRYOrdered By: SYSTEM SYSTEM on 01-23-2024 Albumin [...] methods and specificity. Values obtained with different powder mixer's assays cannot be used interchangeably. The methodology used to obtain this result was chemiluminescence using [employer]'s Access Hybritech PSA reagent and Access Hybritech [...] used for this result was chemiluminescence using [employer]'s Access Hybritech PSA reagent. Protein [Mass/Vol] 7.1 g/dL Normal 6.0 - 7.8 gm/dL Remisol Chem Sodium [Moles/Vol] 133 mmol/L Low 135 - 145 mmol/L Remisol Chem Urea nitrogen [Mass/Vol] 40 mg/dL High 5 - 21 mg/dL Rem[facility] Chem Urea nitrogen/Creatinine [Mass ratio] 27 mg/mg High 10 - 20 Rem[facility] Chem CMPon 01-23-2024 Albumin [Mass/Vol] 4.1 g/dL Normal 3.3-5.0 [facility] Comment on above: Performed By: #### 2 [id number] #### [facility] [address] [place] [address] Albumin/Globulin (S) [Mass conc ratio] 1.4 Normal 1.1-2.2 [facility] Comment on above: Performed By: #### 2 [id number] #### [facility] [address] [place] [address] ALP [Catalytic activity/Vol] 118 Int._Unit/L High 21-98 [facility] Comment on above: Performed By: #### 2 [id number] #### [facility] [address] [place] [address] ALT No additional P-5'-P [Catalytic activity/Vol] 19 Int._Unit/L Normal 6-46 [facility] Comment on above: Performed By: #### 2 [id number] #### [facility] [address] [place] [address] Anion gap [Moles/Vol] 11 mmol/L Normal 6-16 [facility] Comment on above: Performed By: #### 2 [id number] #### [facility] [address] [place] [address] AST [Catalytic activity/Vol] 28 Int._Unit/L Normal 5-43 [facility] Comment on above: Performed By: #### 2 [id number] #### [facility] [address] [place] [address] Bilirubin [Mass/Vol] 0.4 mg/dL Normal 0.0-1.1 [facility] Comment on above: Performed By: #### 2 [id number] #### [facility] [address] [place] [address] Calcium [Mass/Vol] 9.4 mg/dL Normal 8.9-11.1 [facility] Comment on above: Performed By: #### 2 [id number] #### [facility] [address] [place] [address] Chloride [Moles/Vol] 100 mmol/L Low 101-111 [facility] Comment on above: Performed By: #### 2 [id number] #### [facility] [address] [place] [address] CO2 [Moles/Vol] 27 mmol/L Normal 21-[address] [facility] Comment on above: Performed By: #### 2 [id number] #### [facility] [address] [place] [address] Creatinine [Mass/Vol] 1.5 mg/dL High 0.5-1.3 [facility] Comment on above: Performed By: #### 2 [id number] #### [facility] [address] [place] [address] Globulin (S) [Mass/Vol] 3.0 g/dL Normal 1.4-4.0 [facility] Comment on above: Performed By: #### 2 [id number] #### [facility] [address] [place] [address] Glucose [Mass/Vol] 275 mg/dL High 55-199 [facility] Comment on above: Performed By: #### 2 [id number] #### [facility] [address] [place] [address] Potassium [Moles/Vol] 4.8 mmol/L Normal 3.5-5.3 [facility] Comment on above: Performed By: #### 2 [id number] #### [facility] [address] [place] [address] Protein [Mass/Vol] 7.1 g/dL Normal 6.0-7.8 [facility] Comment on above: Performed By: #### 2 [id number] #### [facility] [address] [place] [address] Sodium [Moles/Vol] 133 mmol/L Low 135-145 [facility] Comment on above: Performed By: #### 2 [id number] #### [facility] [address] [place] [address] Urea nitrogen [Mass/Vol] 40 mg/dL High 5-21 [facility] Comment on above: Performed By: #### 2 [id number] #### [facility] [address] [place] [address] Urea nitrogen/Creatinine [Mass ratio] 27 No Units High 10-20 [facility] Comment on above: Performed By: #### 2 [id number] #### [facility] [address] [place] [address] HEMATOLOGYOrdered By: SYSTEM SYSTEM on 01-23-2024 Basophils/100 [...] 01-23-2024 eGFR 50 mL/min/1.73 m2 Low >=59 [facility] Comment on above: Performed By: #### 1 [id number] #### [facility] [address] [place] [address] Ambulatory Visit Summaryon Ambulatory Visit Summary Ambulatory Visit Summary ALTAGRACIA [...] toe (03/11/2015), 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 Discharge Vitals Heart Rate (Peripheral) 64 Blood Pressure 114/64 Height 188 cm Height 74 in Weight 96 kg Weight 211.2 lb BMI 27.16 Medications What How Much When Why Instructions Changed tamsulosin (tamsulosin 0.4 mg Cap) 1 Capsules By Mouth 2 times a day Pickup at [id number] Unchanged albuterol (Ventolin HFA 90 mcg/ inh [...] SALINE, HEPA (more content not included)... Normal [facility] PTH [place] 12-14-2023 Parathyrin.intact [Mass/Vol] 42 pg/mL Invalid Interpretation Code [facility] Comment on above: Result Comment: Perf ormed at: CB [facility] [address] [id number] PhD Miriam Sam Performed By: #### 1 [id number] #### [facility] [address] [place] [address] CBC w/Indiceson 12-13-2023 Erythrocyte distribution width (RBC) [Ratio] 14.9 % High 10.9-14.2 [facility] Comment on above: Performed By: #### 2 [id number] #### [facility] [address] [place] [address] Hematocrit (Bld) [Volume fraction] 36.6 % Low 37.7-49.0 [facility] Comment on above: Performed By: #### 2 [id number] #### [facility] [address] [place] [address] Hemoglobin (Bld) [Mass/Vol] 12.5 g/dL Low 13.5-17.5 [facility] Comment on above: Performed By: #### 2 [id number] #### [facility] [address] [place] [address] MCH (RBC) [Entitic mass] 31.1 pg Normal 27.0-34.0 [facility] Comment on above: Performed By: #### 2 385264 #### [facility] [address] [place] [address] MCHC (RBC) [Mass/Vol] 34.2 g/dL Normal 31.4-36.0 [facility] Comment on above: Performed By: #### 2 [id number] #### [facility] [address] [place] [address] MCV (RBC) [Entitic vol] 90.9 fL Normal 80.0-100.0 [facility] Comment on above: Performed By: #### 2 [id number] #### [facility] [address] [place] [address] Platelet mean volume (Bld) [Entitic vol] 9.7 fL Normal 6.4-10.8 [facility] Comment on above: Performed By: #### 2 [id number] #### [facility] [address] [place] [address] Platelets (Bld) [#/Vol] 168.0 E9/L Normal 150.0-500.0 [facility] Comment on above: Performed By: #### 2 [id number] #### [facility] [address] [place] [address] RBC (Bld) [#/Vol] 4.0 E12/L Low 4.3-5.9 [facility] Comment on above: Performed By: #### 2 [id number] #### [facility] [address] [place] [address] RBC size Nom (Bld) NORMAL Invalid Interpretation Code [facility] Comment on above: Performed By: #### 2 [id number] #### [facility] [address] [place] [address] WBC corrected for nucl RBC Auto (Bld) [#/Vol] 8.2 E9/L Normal 4.0-11.[address] [facility] Comment on above: Performed By: #### 2 [id number] #### [facility] [address] [place] [address] CHEMISTRYOrdered By: SYSTEM SYSTEM on 12-13-2023 U [...] [Vol rate/Area] 29 mL/min/1.73 m2 Low >=59 [facility] HEMATOLOGYOrdered By: SYSTEM SYSTEM on 12-13-2023 [...] on 12-13-2023 Bilirubin Ql (U) Negative Negative [facility] Auto SS Urobilinogen (U) [Mass/Vol] Negative Negative [facility] UA Auto SS Albumin [Mass/Vol] 4.1 g/dL [...] challengeon 12-13-2023 Glucose (U) [Mass/Vol] Negative Negative [facility] Ketones Ql (U) Negative Negative [facility] pH (U) 5.0 [pH] 5.0-9.0 [facility] Specific gravity (U) [Rel density] 1.018 1.005-1.030 [facility] Laboratory - Specimen inform ationon 12-13-2023 Appearance (U) Clear Clear [facility] Color (U) Yellow Yellow [facility] Specimen type Nom (Spec) Clean Catch [facility] Laboratory - Urinalysison Hyaline casts LM Ql (Urine sed) 4-10 CD:[id number] Abnormal 0-3 [facility] Leukocyte esterase Test strip Ql (U) 250 Derick/uL CD:[id number] Abnormal Negative [facility] Mucus Ql (Urine sed) Trace CD:[id number] Negati ve [facility] Nitrite Ql (U) Negative Negative [facility] Protein (U) [Mass/Vol] 21.7 mg/dL [facility] Laboratory - UrinalysisOrder ed By: SYSTEM SYSTEM on 12-13-2023 Protein Ql (U) Negative Negative [facility] UA Au to SS Leukocytes [#/volume] correc [...] 12-13-2023 Magnesium [Mass/Vol] 2.3 mg/dL Normal 1.3-2.4 [facility] Comment on above: Performed By: #### 2 [id number] #### [facility] [address] [place] [address] No Panel Informationon 12-12 Urine Occult Blood Negative Negative [facility] Urine Random Creatinine 134.8 mg/dL [facility] Urine RBC 4-20 CD:[id number] Abnormal 0-3 [facility] Urine Squamous Epithelial Cells 0-2 CD:[id number] [facility] Urine WBC 31-75 CD:[id number] Abnormal 0-5 [facility] 25-Hydroxy Vitamin D Total 49.9 ng/mL 30.0-100.0 [facility] BUN/Creatinine Ratio 24 No Units High 10-20 [facility] Parathyroid Hormone (Intact) 42 pg/mL 15-65 [facility] Phosphorus Level 5.6 mg/dL High 1.9-4.6 [facility] RBC Size NORMAL [facility] Platelet mean volume [Entiti c volume] in Blood by Automated countOrdered By: SYSTEM SYSTEM on 12-13-2023 Platelet mean volume (Bld) [Entitic vol] 9.7 fL 6.4-10.8 [facility]e Platelets [#/volume] in Bloo d by Automated countOrdered By: SYSTEM SYSTEM on 12-13-2023 Platelets (Bld) [#/Vol] 168.0 E9/L 150.0-500.0 [facility] Heme Renal Panelon 12-13-2023 Phosphate [Mass/Vol] 5.6 mg/dL High 1.9-4.6 [facility] Comment on above: Performed By: #### 1 [id number] #### [facility] [address] [place] [address] Albumin [Mass/Vol] 4.1 g/dL Normal 3.3-5.0 [facility] Comment on above: Performed By: #### 1 [id number] #### [facility] [address] [place] [address] Anion gap [Moles/Vol] 11 mmol/L Normal 6-16 [facility] Comment on above: Performed By: #### 1 [id number] #### [facility] [address] [place] [address] Calcium [Mass/Vol] 9.6 mg/dL Normal 8.9-11.1 [facility] Comment on above: Performed By: #### 1 [id number] #### [facility] [address] [place] [address] Chloride [Moles/Vol] 102 mmol/L Normal 101-111 [facility] Comment on above: Performed By: #### 1 [id number] #### [facility] [address] [place] [address] CO2 [Moles/Vol] 27 mmol/L Normal 21-[address] [facility] Comment on above: Performed By: #### 1 [id number] #### [facility] [address] [place] [address] Creatinine [Mass/Vol] 2.4 mg/dL High 0.5-1.3 [facility] Comment on above: Performed By: #### 1 [id number] #### [facility] [address] [place] [address] Glucose [Mass/Vol] 158 mg/dL Normal 55-199 [facility] Comment on above: Performed By: #### 1 [id number] #### [facility] [address] [place] [address] Potassium [Moles/Vol] 4.5 mmol/L Normal 3.5-5.3 [facility] Comment on above: Performed By: #### 1 [id number] #### [facility] [address] [place] [address] Sodium [Moles/Vol] 135 mmol/L Normal 135-145 [facility] Comment on above: Performed By: #### 1 [id number] #### [facility] [address] [place] [address] Urea nitrogen [Mass/Vol] 57 mg/dL High 5-21 [facility] Comment on above: Performed By: #### 1 [id number] #### [facility] [address] [place] [address] Urea nitrogen/Creatinine [Mass ratio] 24 No Units High 10-20 [facility] Comment on above: Performed By: #### 1 [id number] #### [facility] [address] [place] [address] Serum or plasma anion gap de terminationOrdered By: SYSTEM SYSTEM on 12-13-2023 Anion gap [Moles/Vol] 11 mmol/L 6-16 Rem isol Chem U Protein/Creat Ratioon 10-0 Protein/Creatinine (U) [Ratio] 16.10 mg/gm Cr Normal .00-200.00 [facility] Comment on above: Performed By: #### 1 [id number] #### [facility] [address] [place] [address] U Creatinine 134.8 mg/dL Invalid Interpretation Code [facility] Comment on above: Performed By: #### 1 [id number] #### [facility] [address] [place] [address] Ur Total Protein 21.7 mg/dL Invalid Interpretation Code [facility] Comment on above: Performed By: #### 1 [id number] #### [facility] [address] [place] [address] URINALYSISOrdered By: SYSTEM SYSTEM on 12-13-2023 Clarity (U) Clear (12/13/23 3:31 PM) Normal Clear [facility] UA Auto SS Color (U) Yellow 1 (12/13/23 3:31 PM) Normal Yellow [facility] UA Auto SS Comment on above: Interpretive Data: M icroscopic readings are only performed on those samples that meet specific criteria set forth by [facility]. Epithelial cells.squamous Auto (Urine sed) [#/Area] 0-2 graded/HPF Invalid Interpretation Code [facility] UA Auto SS Glucose Ql (U) Negative [...] PM) Invalid Interpretation Code 5.0 - 9.0 [facility] UA Auto SS RBC Ql (U) 4-20 graded/HPF Invalid Interpretation Code 0-3graded/HP F [facility] UA Auto SS Specific gravity (U) [Rel density] 1.018 *NA* (12/13/23 3:31 PM) Invalid Interpretation Code 1.005 - 1.030 [facility] UA Auto SS WBC Auto (Urine sed) [#/Area] 31-75 graded/HPF Invalid Interpretation Code 0-5graded/HP F [facility] UA Auto SS URINALYSISOrdered By: Olga Olivo on 12-13-2023 UA Spec Desc Clean Catch (12/13/23 3:31 PM) Normal [facility] UA Auto SS Uric Acidon 12-13-2023 Urate [Mass/Vol] 7.4 mg/dL Normal 2.2-7.4 [facility] Comment on above: Performed By: #### 2 [id number] #### [facility] [address] [place] [address] Urinalysis with Microon Bilirubin Ql (U) Negative Normal Negative [facility] Comment on above: Performed By: #### 4 [id number] #### [facility] [address] [place] [address] Clarity (U) Clear Normal Clear [facility] Comment on above: Performed By: #### 4 [id number] #### [facility] [address] [place] [address] Color (U) Yellow Normal Yellow [facility] Comment on above: Result Comment: Micr oscopic readings are only performed on those samples that meet specific criteria set forth by [facility]. Performed By: #### 4 [id number] #### [facility] [address] [place] [address] Epithelial cells.squamous Auto (Urine sed) [#/Area] 0-2 Invalid Interpretation Code [facility] Comment on above: Performed By: #### 4 [id number] #### [facility] [address] [place] [address] Glucose Ql (U) Negative Normal Negative [facility] Comment on above: Performed By: #### 4 [id number] #### [facility] [address] [place] [address] Hemoglobin Auto test strip (U) [Mass/Vol] Negative Normal Negative [facility] Comment on above: Performed By: #### 4 [id number] #### [facility] [address] [place] [address] Hyaline casts LM Ql (Urine sed) 4-10 Abnormal 0-3 [facility] Comment on above: Performed By: #### 4 [id number] #### [facility] [address] [place] [address] Ketones Auto test strip Ql (U) Negative Normal Negative [facility] Comment on above: Performed By: #### 4 [id number] #### [facility] [address] [place] [address] Leukocyte esterase Auto test strip Ql (U) 250 Derick/uL Abnormal Negative [facility] Comment on above: Performed By: #### 4 [id number] #### [facility] [address] [place] [address] Mucus Auto Ql (U) Trace Normal Negative [facility] Comment on above: Performed By: #### 4 [id number] #### [facility] [address] [place] [address] Nitrite Auto test strip Ql (U) Negative Normal Negative [facility] Comment on above: Performed By: #### 4 [id number] #### [facility] [address] [place] [address] pH (U) 5.0 [pH] Invalid Interpretation Code 5.0-9.0 [facility] Comment on above: Performed By: #### 4 [id number] #### [facility] [address] [place] [address] Protein Ql (U) Negative Normal Negative [facility] Comment on above: Performed By: #### 4 [id number] #### [facility] [address] [place] [address] RBC Ql (U) 4-20 Abnormal 0-3 [facility] Comment on above: Performed By: #### 4 [id number] #### [facility] [address] [place] [address] Specific gravity (U) [Rel density] 1.018 Invalid Interpretation Code 1.005-1.030 [facility] Comment on above: Performed By: #### 4 [id number] #### [facility] [address] [place] [address] Urobilinogen (U) [Mass/Vol] Negative Normal Negative [facility] Comment on above: Performed By: #### 4 [id number] #### [facility] [address] [place] [address] WBC Auto (Urine sed) [#/Area] 31-75 Abnormal 0-5 [facility] Comment on above: Performed By: #### 4 [id number] #### [facility] [address] [place] [address] Type of Urine collection method Clean Catch Normal [facility] Comment on above: Performed By: #### 4 [id number] #### [facility] [address] [place] [address] Urine protein/creatinine rat ioOrdered By: SYSTEM SYSTEM on 12-13-2023 Protein/Creatinine (U) [Ratio] 16.10 mg/gm Cr .00-200.00 Remisol Chem Vitamin D 25 Hydroxyon 12-12 25-hydroxyvitamin D3 [Mass/Vol] 49.9 ng/mL Normal 30.0-100.0 [facility] Comment on above: Performed By: #### 5 [id number] #### [facility] [address] [place] [address] eGFRon 12-13-2023 eGFR 29 mL/min/1.73 m2 Low >=59 [facility] Comment on above: Order Comment: Order added by Discern Expert. Performed By: #### 1 [id number] #### [facility] [address] [place] [address] HbA1c (Bld) [Mass fraction]o n 12-10-2023 Interpretation and review of laboratory results Normal [facility] - Hematology and Cell countson 12-10-2023 HbA1c (Bld) [Mass fraction] 7.4 % [facility] CT abdomen pelvis w conon CT abdomen pelvis w con [facility] Main [place] [id number] CT Scan Report Signed Patient: Altagracia Conway MR#: [id number] : 1955 Acct:[id number] Age/Sex: 68 / M ADM Date: 11/08/23 Loc: Room: Type: [facility] Attending Dr: Margaret Delgado MD Copies to: [...] Dee Cuevas M.D.11/19/2023 10:45 AM Dictation Location: [place] [address] Transcribed By: [facility] 11/19/23 1045 Dictated By: Dee Cuevas MD 11/19/23 1036 Signed By: 11/19/23 1045 Normal [facility] Creatinineon 11-19-2023 Creatinine Clr Calc Pharmacy 64.19 Normal [facility] Comment on above: Result Comment: PERF ORMED BY: [facility] [address] [place] [address] PATHOLOGIST ROLLER NORBERTO PITTS M.D. Performed By: #### B UN, CREAT #### [facility] [address] [place] [address] [place] GFR/1.73 sq M.predicted MDRD (S/P/Bld) [Vol rate/Area] 54.281 mL/min/{1.73_m2} Normal [facility] Comment on above: Performed By: #### B UN, CREAT #### [facility] [address] [place] [id number] [place] Creatinine [Mass/Vol]on 11-09 Creatinine (U) [Mass/Vol] 1.41 mg/dL High 0.70 - 1.30 mg/dL [facility] CREATININE CLR CALC PHARMACY 64.19 [facility] GFR/1.73 sq M.predicted MDRD (S/P/Bld) [Vol rate/Area] 54.281 mL/min/{1.73_m2} [facility] Creatinine [Mass/volume] in Serum or PlasmaOrdered By: Margaret Delgado on 11-19-2023 Creatinine [Mass/Vol] 1.41 mg/dL High 0.70-1.30 [facility] Comment on above: Performed By: #### B UN, CREAT #### [facility] [address] [place] [id number] [place] Creatinine [Mass/Vol] Creatinine [Mass/volume] in Serum or Plasma High 0.70-1.30 [facility] No Panel Informationon 11-18 Interpretation and review of laboratory results Abnormal [facility] No Panel InformationOrdered By: Margaret Delgado on 11-19-2023 Estimated GFR (CKD-EPI) 54.281 mL/Min [facility] Creatinine Clearance (Chem 64.19 [facility] Urea nitrogen [Mass/volume] in Serum or PlasmaOrdered By: Margaret Delgado on 11-19-2023 Urea nitrogen [Mass/Vol] 35 mg/dL High 10-02 [facility] Comment on above: Performed By: #### B UN, CREAT #### [facility] [address] [place] [address] [place] Urea nitrogen [Mass/Vol] Urea nitrogen [Mass/volume] in Serum or Plasma High 10-02 [facility] Urea nitrogen, body fluidon 11-19-2023 Urea nitrogen [Mass/Vol] 35 mg/dL High 7 - 25 mg/dL [facility] Bacteria identified Cx Nom ( Bld)on 10-30-2023 [facility] Blood cultureon 10-30-2023 Bacteria identified Cx Nom (Bld) Final report [facility] No Panel Informationon 10-29 Performed at: 01 - [facility] [address] [id number] Garment Worker: Flaco Pineda PhD, Phone: [phone] [facility] RESULTon 10-30-2023 Bacteria identified Cx Nom (Bld) Comment [facility] Comment on above: No aerobic or anaero bic growth in five days. [facility] CHEMISTRYOrdered By: Lab ROP User on 10-09-2023 Glucose [Mass/Vol] 388 mg/dL High 55 - 99 mg/dL [facility] Comment on above: Result Comment: Ty GONZALEZ POC Device SN [id number] 1 Invalid Interpretation Code [facility] POC Subsection POC User ID [id number] 1 Invalid Interpretation Code [facility] POC Subsection POC Username MIRANDA, KATY Invalid Interpretation Code [facility] Subsection Glucose [Mass/Vol] 434 mg/dL High 55 - 99 mg/dL [facility] Subsection Comment on above: Result Comment: Ty GONZALEZ POC Device SN [id number] 1 Invalid Interpretation Code [facility] POC Subsection POC User ID [id number] 1 Invalid Interpretation Code [facility] POC Subsection POC Username MIRANDA, KATY Invalid Interpretation Code [facility] POC Subsection Glucose [Mass/Vol] 152 mg/dL High 55 - 99 mg/dL [facility] Subsection Comment on above: Result Comment: Ty GONZALEZ POC Device SN [id number] 1 Invalid Interpretation Code [facility] POC Subsection POC User ID [id number] 1 Invalid Interpretation Code [facility] POC Subsection POC Username MIRANDA, KATY Invalid Interpretation Code [facility] Subsection Capillary Glucose POCon 09-10 Glucose [Mass/Vol] 388 mg/dL High 55-99 [facility] Comment on above: Result Comment: Ty GONZALEZ Performed By: #### 2 [id number] #### [facility] [address] [place] [address] Glucose [Mass/Vol] 434 mg/dL High 55-99 [facility] Comment on above: Result Comment: Ty lester RN/ Performed By: #### 2 [id number] #### [facility] [address] [place] [address] Glucose [Mass/Vol] 152 mg/dL High 55-99 [facility] Comment on above: Result Comment: Ty GONZALEZ Performed By: #### 2 [id number] #### [facility] [address] [place] [address] Discharge Note-Nursingon Discharge Note-Nursing Discharge Note-Nu rsing [...] Single View This Is Your Medications List [facility] Prescription (S.A.S.H (SALINE, ADMINISTRATION OF DRUG, SALINE, [...] toe (03/11/2015), 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 Discharge Vitals Temperature (Axillary) 36.8 ?C Heart [...] for followup appointment Where: [address] , [facility] [address] [place] [address]- [facility] (1) Medications What How Much When Why [...] 1 tab daily x3 days. Pickup at [facility] #[id number] 10/09 @ 9 AM Changed albuterol (Ventolin HFA 90 mcg/ inh Aerosol-Adpt) 1 Puffs Inhalation Every 4 hours as needed for Shortness of breath or wheezing NEEDED FOR SHORTNESS OF BREATH OR WHEEZING Changed amlodipine (amLODIPine 10 mg Tab) 1 Tablets By Mouth Every day 10/09 @ AM Changed atorvastatin (atorvastatin 10 mg Tab) 1 Tablets By Mouth Every day 10/09 AM Changed busPIRone (busPIRone 30 mg oral tablet) 1 Tablets By Mouth At bedtime 10/08 PM Changed doxepin (doxepin 100 mg Cap) 1 Capsules By Mouth Once a day (at bedtime) 10/08 PM Changed fluticasone-vilanterol (Breo Ellipta 100 mcg-25 mcg inhalation powder) 1 Puffs Inhalation Every day 30 dose unit 10/09 AM Changed furosemide (furosemide 20 mg Tab) 1 Tablets By Mouth Every day 10/09 AM Changed insulin aspart (insulin aspart 100 units/ mL injectable solution) 8-12 unit(s) Subcutaneous Once daily with supper 10/08 WITH DINNER Changed insulin aspart (insulin aspart 100 units/ mL injectable solution) 8 Units Subcutaneous Every day 10/09 @ AM Changed insulin degludec (insulin degludec 100 units/ mL subcutaneous solution) 30 Units Subcutaneous Every day 10/09 AM Changed levomilnacipran (Fetzima 40 mg oral capsule, extended release) See instructions 1.5 CAPSULES TO EQUAL 60MG DAILY 10/09 @ AM Changed lisinopril (lisinopril (more content not included)... Normal [facility] Inpatient Clinical Summaryon 10-09-2023 Inpatient Clinical Summary Inpatient Clinical Summary [place] [address] Clinical Summary Person Information: Name: ALTAGRACIA CONWAY Age: 68 Years : 1955 Sex: Male PCP: TIKI DOCKERY DO Marital Status: Race: White Ethnicity: Non- or Language: Finnish Visit Id: Visit Reason: Chills; Cough; Shortness of breath; sob Speciality: Acuity: Enc Type: Inpatient Med Service: Medical Arrival: 10/05/2023 01:11:30 Discharge: Dispo Type: Admitted as IP to this Hosp Address: [address] [place] [id number] Provider Notes: Diagnosis: 1:Sepsis; 2:Acute respiratory failure [...] By Mouth once a day (at bedtime). [facility] Prescription (S.A.S.H (SALINE, ADMINISTRATION OF DRUG, SALINE, [...] With: Address: When: TIKI DOCKERY [address], [address] [place] [address] Business (1) Comments: Call for followup appointment Patient Education Information: Bacteremia, Adult; Sepsis, Self Care, Adult Normal [facility] Inpatient Clinical Summary Inpatient Clinical Summary [address] [address] Clinical Summary Person Information: Name: ALTAGRACIA CONWAY Age: 68 Years : 1955 Sex: Male PCP: TIKI DOCKERY DO Marital Status: Race: White Ethnicity: Non- or Language: Finnish Visit Id: Visit Reason: Chills; Cough; Shortness of breath; sob Speciality: Acuity: Enc Type: Inpatient Med Service: Medical Arrival: 10/05/2023 01:11:30 Discharge: Dispo Type: Admitted as IP to this Hosp Address: [address] [id number] Provider Notes: Diagnosis: 1:Sepsis; 2:Acute respiratory failure [...] With: Address: When: TIKI DOCKERY [address], [address] [address] [place] (1) Comments: Call for followup appointment Patient Education Information: Normal [facility] Inpatient Patient Summaryon 10-09-2023 Inpatient Patient Summary Inpatient Patient Summary [address] [address] Patient Discharge Instructions PERSON INFORMATION Name: ALTAGRACIA [...] With: Address: When: TIKI DOCKERY [address], [facility] [address] [place] [address] [facility] (1) Comments: Call for followup appointment In [...] OCCURRED DURING YOUR HOSPITAL STAY New Medications [id number], [address] [place], [place] [id number], [phone] predniSONE (predniSONE 10 mg Tab) 1 Dose [...] levomilnacipran (Fetzima (more content not included)... Normal [facility] Inpatient Patient Summary Inpatient Patient Summary [place] [address] Patient Discharge Instructions PERSON INFORMATION Name: ALTAGRACIA [...] With: Address: When: TIKI DOCKERY [address], [place] [address] [facility] (1) Comments: Call for followup appointment In [...] Capsules By Olya (more content not included)... Normal [facility] Interdisciplinary Note - Garrison e Manageron 10-09-2023 Interdisciplinary Note - Cello Teacher Interdisciplinary Note - Cello Teacher Patient is awake and alert in bed, previously rounded with Dennise INDEPENDENT VIDEO PRODUCER. Friend at bedside and will transport at [place], Pt is aware of plan to DC home today on oral antibiotics and continues to deny any concerns or DC needs. Pt is set up with [facility] at [place] and will be updated. medicare rights reviewed and second copy provided. . PCP verified and insurance information reviewed and DME discussed. Contact provided and white board updated, CRM returned to pt room , updated on need for IV atb at [facility], Discussed OP infusion center and HH. Pt [place] close to hospitor and is not home bound, prefers OP infusion. pt has infusaport and already had today dose, and will be set up to start tomorrow until 10/19. Nursing and Dennise INDEPENDENT VIDEO PRODUCER updated and plan to DC home today Pt was discharged, CRM contacted pt with updates on outpatient infusion center, CRM called [phone] and VM left for Ranydy regarding start of outpatient infusion beginning tomorrow 10/09-10/19 at 1230 pm tomorrow, CRM contact information provided to confirm receiving this call. Pt did return call with confrmation of OP infusion schedule, declines any further needs. [facility] Comment on above: Result Comment: Elec tronically Signed By: Nasreen Gutierrez RN\.br\Date and Time Signed: 10/09/23 13:53 EDT Interdisciplinary Note - Cello Teacher Interdisciplinary Note - Cello Teacher Patient is awake and alert in bed, previously rounded with Dennise ALMONTE. Friend at bedside and will transport at [place], Pt is aware of plan to DC home today on oral antibiotics and continues to deny any concerns or DC needs. Pt is set up with [facility] at [place] and will be updated. medicare rights reviewed and second copy provided. . PCP verified and insurance information reviewed and DME discussed. Contact provided and white board updated, CRM returned to pt room , updated on need for IV atb at [place], Discussed OP infusion center and HH. Pt lives close to [facility] and is not home bound, prefers OP infusion. pt has infusaport and already had today dose, and will be set up to start tomorrow until 10/19. Nursing and Dennise INDEPENDENT VIDEO PRODUCER updated and plan to DC home today [facility] Comment on above: Result Comment: Elec tronically Signed By: Nasreen Gutierrez RN\.br\Date and Time Signed: 10/09/23 11:37 EDT Interdisciplinary Note - Cello Teacher Interdisciplinary Note - Cello Teacher Patient is awake and alert in bed, previously rounded with Dennise ALMONTE. Friend at bedside and will transport at [place], Pt is aware of plan to DC home today on oral antibiotics and continues to deny any concerns or DC needs. Pt is set up with [facility] at [place] and will be updated. medicare rights reviewed and second copy provided. . PCP verified and insurance information reviewed and DME discussed. Contact provided and white board updated, Normal [facility] Comment on above: Result Comment: Elec tronically Signed By: Matt RICHARDSON, Nasreen\santiago\Date and Time Signed: 10/09/23 10:33 EDT BMPon 10-08-2023 Anion gap [Moles/Vol] 13 mmol/L Normal 6-16 [facility] Comment on above: Performed By: #### 2 [id number] #### [facility] [address] [place] [address] Calcium [Mass/Vol] 9.2 mg/dL Normal 8.9-11.1 [facility] Comment on above: Performed By: #### 2 [id number] #### [facility] [address] [place] [address] Chloride [Moles/Vol] 106 mmol/L Normal 101-111 [facility] Comment on above: Performed By: #### 2 [id number] #### [facility] [address] [place] [address] CO2 [Moles/Vol] 21 mmol/L Normal 21-[address] [facility] Comment on above: Performed By: #### 2 [id number] #### [facility] [address] [place] [address] Creatinine [Mass/Vol] 1.1 mg/dL Normal 0.5-1.3 [facility] Comment on above: Performed By: #### 2 [id number] #### [facility] [address] [place] [address] Glucose [Mass/Vol] 245 mg/dL High 55-199 [facility] Comment on above: Performed By: #### 2 [id number] #### [facility] [address] [place] [address] Potassium [Moles/Vol] 5.1 mmol/L Normal 3.5-5.3 [facility] Comment on above: Performed By: #### 2 [id number] #### [facility] [address] [place] [address] Sodium [Moles/Vol] 135 mmol/L Normal 135-145 [facility] Comment on above: Performed By: #### 2 [id number] #### [facility] [address] [place] [address] Urea nitrogen [Mass/Vol] 37 mg/dL High 5-21 [facility] Comment on above: Performed By: #### 2 [id number] #### [facility] [address] [place] [address] Urea nitrogen/Creatinine [Mass ratio] 34 No Units High 10-20 [facility] Comment on above: Performed By: #### 2 [id number] #### [facility] [address] [place] [address] CBC w/ Auto Diffon 4 Basophils/100 WBC (Bld) 0.1 % Normal 0.0-2.0 [facility] Comment on above: Performed By: #### 2 [id number] #### [facility] [address] [place] [address] Basophils/Leukocytes Auto (Bld) [Pure # fraction] 0.0 E9/L Normal 0.0-0.2 [facility] Comment on above: Performed By: #### 2 [id number] #### [facility] [address] [place] [address] Eosinophils (Bld) [#/Vol] 0.0 E9/L Normal 0.0-0.5 [facility] Comment on above: Performed By: #### 2 [id number] #### [facility] [address] [place] [address] Eosinophils/100 WBC (Bld) 0.0 % Normal 0.0-8.0 [facility] Comment on above: Performed By: #### 2 [id number] #### [facility] [address] [place] [address] Erythrocyte distribution width (RBC) [Ratio] 14.7 % High 10.9-14.2 [facility] Comment on above: Performed By: #### 2 [id number] #### [facility] [address] [place] [address] Hematocrit (Bld) [Volume fraction] 31.3 % Low 37.7-49.0 [facility] Comment on above: Performed By: #### 2 [id number] #### [facility] [address] [place] [address] Hemoglobin (Bld) [Mass/Vol] 10.9 g/dL Low 13.5-17.5 [facility] Comment on above: Performed By: #### 2 [id number] #### [facility] [address] [place] [address] Lymphocytes (Bld) [#/Vol] 0.6 E9/L Low 1.0-4.0 [facility] Comment on above: Performed By: #### 2 [id number] #### [facility] [address] [place] [address] Lymphocytes/100 WBC (Bld) 5.9 % Low 14.0-50.0 [facility] Comment on above: Performed By: #### 2 [id number] #### [facility] [address] [place] [address] MCH (RBC) [Entitic mass] 30.7 pg Normal 27.0-34.0 [facility] Comment on above: Performed By: #### 2 [id number] #### [facility] [address] [place] [address] MCHC (RBC) [Mass/Vol] 34.7 g/dL Normal 31.4-36.0 [facility] Comment on above: Performed By: #### 2 [id number] #### [facility] [address] [place] [address] MCV (RBC) [Entitic vol] 88.4 fL Normal 80.0-100.0 [facility] Comment on above: Performed By: #### 2 [id number] #### [facility] [address] [place] [address] Monocytes (Bld) [#/Vol] 0.4 E9/L Normal 0.2-1.0 [facility] Comment on above: Performed By: #### 2 [id number] #### [facility] [address] [place] [address] Neutrophils (Bld) [#/Vol] 9.4 E9/L High 2.0-7.5 [facility] Comment on above: Performed By: #### 2 [id number] #### [facility] [address] [place] [address] Neutrophils/100 WBC (Bld) 90.5 % High 36.0-75.0 [facility] Comment on above: Performed By: #### 2 [id number] #### [facility] [address] [place] [address] Platelet 189.0 E9/L Normal 150.0-500.0 [facility] Comment on above: Performed By: #### 2 [id number] #### [facility] [address] [place] [address] Platelet mean volume (Bld) [Entitic vol] 10.0 fL Normal 6.4-10.8 [facility] Comment on above: Performed By: #### 2 [id number] #### [facility] [address] [place] [address] RBC (Bld) [#/Vol] 3.5 E12/L Low 4.3-5.9 [facility] Comment on above: Performed By: #### 2 [id number] #### [facility] [address] [place] [address] WBC corrected for nucl RBC Auto (Bld) [#/Vol] 10.4 E9/L Normal 4.0-11.[address] [facility] Comment on above: Performed By: #### 2 [id number] #### [facility] [address] [place] [address] CHEMISTRYOrdered By: SYSTEM SYSTEM on 10-08-2023 Anion [...] 09-10 Glucose [Mass/Vol] 300 mg/dL High 55-99 [facility] Comment on above: Performed By: #### 2 [id number] #### [facility] [address] [place] [address] Glucose [Mass/Vol] 333 mg/dL High 55-99 [facility] Comment on above: Result Comment: Ty GONZALEZ Performed By: #### 2 [id number] #### [facility] [address] [place] [address] Glucose [Mass/Vol] 351 mg/dL High 55-99 [facility] Comment on above: Result Comment: Ty GONZALEZ Performed By: #### 2 [id number] #### [facility] [address] [place] [address] Glucose [Mass/Vol] 240 mg/dL High 55-99 [facility] Comment on above: Result Comment: Ty GONZALEZ Performed By: #### 2 [id number] #### [facility] [address] [place] [address] HEMATOLOGYOrdered By: SYSTEM SYSTEM on 10-08-2023 Basophils/100 [...] 10-08-2023 Inpatient Clinical Summary Inpatient Clinical Summary [address] [address] Clinical Summary Person Information: Name: ALTAGRACIA CONWAY Age: 68 Years : 1955 Sex: Male PCP: TIKI DOCKERY DO Marital Status: Race: White Ethnicity: Non- or Language: Finnish Visit Id: Visit Reason: Chills; Cough; Shortness of breath; sob Speciality: Acuity: Enc Type: Inpatient Med Service: Medical Arrival: 10/05/2023 01:11:30 Discharge: Dispo Type: Admitted as IP to this Hosp Address: [address] [id number] Provider Notes: Diagnosis: 1:Sepsis; 2:Acute respiratory failure [...] With: Address: When: TIKI DOCKERY [address] , [facility] [address] [place] [address] SOLO (1) Patient Education Information: Normal [facility] Inpatient Patient Summaryon 10-08-2023 Inpatient Patient Summary Inpatient Patient Summary [address] [address] Patient Discharge Instructions PERSON INFORMATION [...] results: Follow up: With: Address: When: TIKI CUTLERANGEL [address] , [facility] [address] [place] [address] SOLO (1) In the event that this physician [...] Mouth three danielle (more content not included)... 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 Friend at bedside. Pt is aware of Dr. Bruce to see this afternoon and possible DC home later today. PT remains on room air, and declines any concerns or DC needs. Discussed paramedicine, and pt is agreeable to Paramedicine at [place], Referral to resource center for paramed visit in AM after DC. Medicare rights reviewed and second copy provided. Declines any further concerns or DC needs. . PCP verified and insurance information reviewed and DME discussed. Contact information provided and white board updated. [facility] Comment on above: Result Comment: Elec tronically Signed By: Matt RICHARDSON, Nasreen\santiago\Date and Time Signed: 10/08/23 11:21 EDT Vanco Peakon 10-08-2023 Vanco Pk 35 microgram/mL Normal 20-[address] [facility] Comment on above: Order Comment: pleas e draw one hour after vancomycin infusion is complete Performed By: #### 2 [id number] #### [facility] [address] [place] [address] eGFRon 10-08-2023 eGFR 73 mL/min/1.73 m2 Normal >=59 [facility] Comment on above: Order Comment: Order added by Discern Expert. Performed By: #### 1 [id number] #### [facility] [address] [place] [address] Bili Directon 10-07-2023 Bilirubin.direct [Mass/Vol] 0.1 mg/dL Normal 0.0-0.4 [facility] Comment on above: Order Comment: Order Added by Discern Expert. Performed By: #### 2 [id number] #### [facility] [address] [place] [address] C Sputumon 10-07-2023 Bacteria identified Respiratory culture Nom (Sput) Microbiology PROCEDURE: Sputum Culture [R1] SOURCE: Sputum BODY SITE: COLLECTED DATE/TIME: 10/05/2023 13:22 EDT RECEIVED DATE/TIME: 10/05/2023 17:06 EDT START DATE/TIME: 10/05/2023 17:06 EDT FREE TEXT SOURCE: Nereida CA DO, DO, Ronobir R FINAL REPORTS Final Report [] Verified Date/Time: 10/07/2023 11:55 EDT 1+ Normal upper respiratory ninfa isolated STAINS Gram Stain Report [] Verified Date/Time: 10/06/2023 14:40 EDT 1+ White Blood Cells Occasional epithelial cells Occasional Gram Positive Cocci Performing Locations R1: This test was performed at: [facility], [address] [place] [address], [phone] , Normal [facility] Comment on above: Performed By: #### 2 [id number] #### [facility] [address] [place] [address] CBC w/ Auto Diffon 4 Basophils/100 WBC (Bld) 0.0 % Normal 0.0-2.0 [facility] Comment on above: Performed By: #### 2 [id number] #### [facility] [address] [place] [address] Basophils/Leukocytes Auto (Bld) [Pure # fraction] 0.0 E9/L Normal 0.0-0.2 [facility] Comment on above: Performed By: #### 2 [id number] #### [facility] [address] [place] [address] Eosinophils (Bld) [#/Vol] 0.0 E9/L Normal 0.0-0.5 [facility] Comment on above: Performed By: #### 2 [id number] #### [facility] [address] [place] [address] Eosinophils/100 WBC (Bld) 0.0 % Normal 0.0-8.0 [facility] Comment on above: Performed By: #### 2 [id number] #### [facility] [address] [place] [address] Erythrocyte distribution width (RBC) [Ratio] 14.8 % High 10.9-14.2 [facility] Comment on above: Performed By: #### 2 [id number] #### [facility] [address] [place] [address] Hematocrit (Bld) [Volume fraction] 29.8 % Low 37.7-49.0 [facility] Comment on above: Performed By: #### 2 [id number] #### [facility] [address] [place] [address] Hemoglobin (Bld) [Mass/Vol] 10.1 g/dL Low 13.5-17.5 [facility] Comment on above: Performed By: #### 2 [id number] #### [facility] [address] [place] [address] Lymphocytes (Bld) [#/Vol] 0.8 E9/L Low 1.0-4.0 [facility] Comment on above: Performed By: #### 2 [id number] #### [facility] [address] [place] [address] Lymphocytes/100 WBC (Bld) 5.2 % Low 14.0-50.0 [facility] Comment on above: Performed By: #### 2 [id number] #### [facility] [address] [place] [address] MCH (RBC) [Entitic mass] 30.3 pg Normal 27.0-34.0 [facility] Comment on above: Performed By: #### 2 [id number] #### [facility] [address] [place] [address] MCHC (RBC) [Mass/Vol] 33.8 g/dL Normal 31.4-36.0 [facility] Comment on above: Performed By: #### 2 [id number] #### [facility] [address] [place] [address] MCV (RBC) [Entitic vol] 89.5 fL Normal 80.0-100.0 F [facility] Comment on above: Performed By: #### 2 [id number] #### [facility] [address] [place] [address] Monocytes (Bld) [#/Vol] 0.5 E9/L Normal 0.2-1.0 [facility] Comment on above: Performed By: #### 2 [id number] #### [facility] [address] [place] [address] Neutrophils (Bld) [#/Vol] 13.5 E9/L High 2.0-7.5 [facility] Comment on above: Performed By: #### 2 [id number] #### [facility] [address] [place] [address] Neutrophils/100 WBC (Bld) 91.4 % High 36.0-75.0 [facility] Comment on above: Performed By: #### 2 [id number] #### [facility] [address] [place] [address] Platelet mean volume (Bld) [Entitic vol] 9.7 fL Normal 6.4-10.8 [facility] Comment on above: Performed By: #### 2 [id number] #### [facility] [address] [place] [address] Platelets (Bld) [#/Vol] 180.0 E9/L Normal 150.0-500.0 [facility] Comment on above: Performed By: #### 2 [id number] #### [facility] [address] [place] [address] RBC (Bld) [#/Vol] 3.3 E12/L Low 4.3-5.9 [facility] Comment on above: Performed By: #### 2 [id number] #### [facility] [address] [place] [address] WBC corrected for nucl RBC Auto (Bld) [#/Vol] 14.8 E9/L High 4.0-11.[address] [facility] Comment on above: Performed By: #### 2 [id number] #### [facility] [address] [place] [address] CHEMISTRYOrdered By: SYSTEM SYSTEM on 10-07-2023 Albumin [...] 10-07-2023 Albumin [Mass/Vol] 3.6 g/dL Normal 3.3-5.0 [facility] Comment on above: Performed By: #### 2 [id number] #### [facility] [address] [place] [address] Albumin/Globulin (S) [Mass conc ratio] 1.3 Normal 1.1-2.2 [facility] Comment on above: Performed By: #### 2 [id number] #### [facility] [address] [place] [address] ALP [Catalytic activity/Vol] 285 Int._Unit/L High 21-98 [facility] Comment on above: Performed By: #### 2 [id number] #### [facility] [address] [place] [address] ALT No additional P-5'-P [Catalytic activity/Vol] 271 Int._Unit/L High 6-46 [facility] Comment on above: Performed By: #### 2 [id number] #### [facility] [address] [place] [address] Anion gap [Moles/Vol] 10 mmol/L Normal 6-16 [facility] Comment on above: Performed By: #### 2 [id number] #### [facility] [address] [place] [address] AST [Catalytic activity/Vol] 100 Int._Unit/L High 5-43 [facility] Comment on above: Performed By: #### 2 [id number] #### [facility] [address] [place] [address] Bilirubin [Mass/Vol] 0.3 mg/dL Normal 0.0-1.1 [facility] Comment on above: Performed By: #### 2 [id number] #### [facility] [address] [place] [address] Calcium [Mass/Vol] 9.2 mg/dL Normal 8.9-11.1 [facility] Comment on above: Performed By: #### 2 [id number] #### [facility] [address] [place] [address] Chloride [Moles/Vol] 107 mmol/L Normal 101-111 [facility] Comment on above: Performed By: #### 2 [id number] #### [facility] [address] [place] [address] CO2 [Moles/Vol] 23 mmol/L Normal 21-[address] [facility] Comment on above: Performed By: #### 2 [id number] #### [facility] [address] [place] [address] Creatinine [Mass/Vol] 1.2 mg/dL Normal 0.5-1.3 [facility] Comment on above: Performed By: #### 2 [id number] #### [facility] [address] [place] [address] Globulin (S) [Mass/Vol] 2.8 g/dL Normal 1.4-4.0 [facility] Comment on above: Performed By: #### 2 [id number] #### [facility] [address] [place] [address] Glucose [Mass/Vol] 208 mg/dL High 55-199 [facility] Comment on above: Performed By: #### 2 [id number] #### [facility] [address] [place] [address] Potassium [Moles/Vol] 5.3 mmol/L Normal 3.5-5.3 [facility] Comment on above: Performed By: #### 2 [id number] #### [facility] [address] [place] [address] Protein [Mass/Vol] 6.4 g/dL Normal 6.0-7.8 [facility] Comment on above: Performed By: #### 2 [id number] #### [facility] [address] [place] [address] Sodium [Moles/Vol] 135 mmol/L Normal 135-145 [facility] Comment on above: Performed By: #### 2 [id number] #### [facility] [address] [place] [address] Urea nitrogen [Mass/Vol] 40 mg/dL High 5-21 [facility] Comment on above: Performed By: #### 2 [id number] #### [facility] [address] [place] [address] Urea nitrogen/Creatinine [Mass ratio] 33 No Units High 10-20 [facility] Comment on above: Performed By: #### 2 [id number] #### [facility] [address] [place] [address] Capillary Glucose POCon 07 Glucose [Mass/Vol] 309 mg/dL High 55-99 [facility] Comment on above: Result Comment: Ty GONZALEZ Performed By: #### 2 [id number] #### [facility] [address] [place] [address] Glucose [Mass/Vol] 289 mg/dL High 55-99 [facility] Comment on above: Result Comment: Ty lester RN/ Performed By: #### 2 [id number] #### [facility] [address] [place] [address] Glucose [Mass/Vol] 389 mg/dL High 55-99 [facility] Comment on above: Result Comment: Ty lester RN/ Performed By: #### 2 [id number] #### [facility] [address] [place] [address] Glucose [Mass/Vol] 241 mg/dL High 55-99 [facility] Comment on above: Result Comment: Ty GONZALEZ Performed By: #### 2 [id number] #### [facility] [address] [place] [address] HEMATOLOGYOrdered By: SYSTEM SYSTEM on 10-07-2023 Basophils/100 [...] Garrison e Manageron 10-07-2023 Interdisciplinary Note - Cello Teacher Interdisciplinary Note - Cello Teacher Pt is awake and alert in bed, [...] information provided and white board updated. Normal [facility] Comment on above: Result Comment: Elec tronically Signed By: Matt RICHARDSON, Nasreen\.br\Date and Time Signed: 10/07/23 11:12 EDT eGFRon 10-07-2023 eGFR 66 mL/min/1.73 m2 Normal >=59 [facility] Comment on above: Order Comment: Order added by Discern Expert. Performed By: #### 1 [id number] #### [facility] [address] [place] [address] BMPon 10-06-2023 Anion gap [Moles/Vol] 12 mmol/L Normal 6-16 [facility] Comment on above: Performed By: #### 2 [id number] #### [facility] [address] [place] [address] Calcium [Mass/Vol] 9.0 mg/dL Normal 8.9-11.1 [facility] Comment on above: Performed By: #### 2 [id number] #### [facility] [address] [place] [address] Chloride [Moles/Vol] 107 mmol/L Normal 101-111 [facility] Comment on above: Performed By: #### 2 [id number] #### [facility] [address] [place] [address] CO2 [Moles/Vol] 22 mmol/L Normal 21-[address] [facility] Comment on above: Performed By: #### 2 [id number] #### [facility] [address] [place] [address] Creatinine [Mass/Vol] 1.3 mg/dL Normal 0.5-1.3 [facility] Comment on above: Performed By: #### 2 [id number] #### [facility] [address] [place] [address] Glucose [Mass/Vol] 219 mg/dL High 55-199 [facility] Comment on above: Performed By: #### 2 [id number] #### [facility] [address] [place] [address] Potassium [Moles/Vol] 5.5 mmol/L High 3.5-5.3 [facility] Comment on above: Performed By: #### 2 [id number] #### [facility] [address] [place] [address] Sodium [Moles/Vol] 135 mmol/L Normal 135-145 [facility] Comment on above: Performed By: #### 2 [id number] #### [facility] [address] [place] [address] Urea nitrogen [Mass/Vol] 41 mg/dL High 5-21 [facility] Comment on above: Performed By: #### 2 [id number] #### [facility] [address] [place] [address] Urea nitrogen/Creatinine [Mass ratio] 32 No Units High 10-20 [facility] Comment on above: Performed By: #### 2 [id number] #### [facility] [address] [place] [address] CBC w/ Auto Diffon 4 Band form neutrophils/100 WBC (Bld) 9.0 % High 0.0-6.0 [facility] Comment on above: Performed By: #### 2 [id number] #### [facility] [address] [place] [address] Basophils (Bld) [#/Vol] 0.0 E9/L Normal 0.0-0.2 [facility] Comment on above: Performed By: #### 2 [id number] #### [facility] [address] [place] [address] Eosinophils (Bld) [#/Vol] 0.0 E9/L Normal 0.0-0.5 [facility] Comment on above: Performed By: #### 2 839071 #### [facility] [address] [place] [address] Eosinophils/100 WBC (Bld) 0.0 % Normal 0.0-8.0 [facility] Comment on above: Performed By: #### 2 [id number] #### [facility] [address] [place] [address] Erythrocyte distribution width (RBC) [Ratio] 14.9 % High 10.9-14.2 [facility] Comment on above: Performed By: #### 2 [id number] #### [facility] [address] [place] [address] Hematocrit (Bld) [Volume fraction] 30.5 % Low 37.7-49.0 [facility] Comment on above: Performed By: #### 2 [id number] #### [facility] [address] [place] [address] Hemoglobin (Bld) [Mass/Vol] 10.2 g/dL Low 13.5-17.5 [facility] Comment on above: Performed By: #### 2 [id number] #### [facility] [address] [place] [address] Lymphocytes (Bld) [#/Vol] 1.1 E9/L Normal 1.0-4.0 [facility] Comment on above: Performed By: #### 2 [id number] #### [facility] [address] [place] [address] Lymphocytes/100 WBC (Bld) 6.0 % Low 14.0-50.0 [facility] Comment on above: Performed By: #### 2 [id number] #### [facility] [address] [place] [address] MCH (RBC) [Entitic mass] 29.9 pg Normal 27.0-34.0 [facility] Comment on above: Performed By: #### 2 [id number] #### [facility] [address] [place] [address] MCHC (RBC) [Mass/Vol] 33.5 g/dL Normal 31.4-36.0 [facility] Comment on above: Performed By: #### 2 [id number] #### [facility] [address] [place] [address] MCV (RBC) [Entitic vol] 89.3 fL Normal 80.0-100.0 [facility] Comment on above: Performed By: #### 2 [id number] #### [facility] [address] [place] [address] Monocytes (Bld) [#/Vol] 0.9 E9/L Normal 0.2-1.0 [facility] Comment on above: Performed By: #### 2 [id number] #### [facility] [address] [place] [address] Neutrophils (Bld) [#/Vol] 16.4 E9/L Invalid Interpretation Code [facility] Comment on above: Performed By: #### 2 [id number] #### [facility] [address] [place] [address] Platelet mean volume (Bld) [Entitic vol] 9.7 fL Normal 6.4-10.8 [facility] Comment on above: Performed By: #### 2 [id number] #### [facility] [address] [place] [address] Platelets (Bld) [#/Vol] 175.0 E9/L Normal 150.0-500.0 [facility] Comment on above: Performed By: #### 2 544248 #### [facility] [address] [place] [address] RBC (Bld) [#/Vol] 3.4 E12/L Low 4.3-5.9 [facility] Comment on above: Performed By: #### 2 [id number] #### [facility] [address] [place] [address] Segmented neutrophils/100 WBC (Bld) 80.0 % High 36.0-75.0 [facility] Comment on above: Performed By: #### 2 [id number] #### [facility] [address] [place] [address] WBC corrected for nucl RBC Auto (Bld) [#/Vol] 18.4 E9/L High 4.0-11.[address] [facility] Comment on above: Performed By: #### 2 [id number] #### [facility] [address] [place] [address] CHEMISTRYOrdered By: SYSTEM SYSTEM on 10-06-2023 Albumin [...] 300 Contrast amount in ml's: 100 Normal [facility] Capillary Glucose POCon 09-09 Glucose [Mass/Vol] 292 mg/dL High 55-99 [facility] Comment on above: Result Comment: Ty GONZALEZ Performed By: #### 2 [id number] #### [facility] [address] [place] [address] Glucose [Mass/Vol] 272 mg/dL High 55-[address] [place] [address] Comment on above: Result Comment: Ty GONZALEZ Performed By: #### 2 [id number] #### [facility] [address] [place] [address] Glucose [Mass/Vol] 256 mg/dL High 55-99 [facility] Comment on above: Result Comment: Ty GONZALEZ Performed By: #### 2 [id number] #### [facility] [address] [place] [address] Glucose [Mass/Vol] 262 mg/dL High 55-[address] [place] [address] Comment on above: Result Comment: Ty GONZALEZ Performed By: #### 2 [id number] #### [facility] [address] [place] [address] HEMATOLOGYOrdered By: SYSTEM SYSTEM on 10-06-2023 Band [...] 10-06-2023 Albumin [Mass/Vol] 3.6 g/dL Normal 3.3-5.0 [facility] Comment on above: Performed By: #### 2 [id number] #### [facility] [address] [place] [address] Albumin/Globulin (S) [Mass conc ratio] 1.2 Normal 1.1-2.2 [facility] Comment on above: Performed By: #### 2 [id number] #### [facility] [address] [place] [address] ALP [Catalytic activity/Vol] 342 Int._Unit/L High 21-98 [facility] Comment on above: Performed By: #### 2 [id number] #### [facility] [address] [place] [address] ALT No additional P-5'-P [Catalytic activity/Vol] 407 Int._Unit/L High 6-46 [facility] Comment on above: Performed By: #### 2 [id number] #### [facility] [address] [place] [address] AST [Catalytic activity/Vol] 327 Int._Unit/L High 5-43 [facility] Comment on above: Performed By: #### 2 [id number] #### [facility] [address] [place] [address] Bilirubin [Mass/Vol] 0.4 mg/dL Normal 0.0-1.1 [facility] Comment on above: Performed By: #### 2 [id number] #### [facility] [address] [place] [address] Bilirubin.direct [Mass/Vol] 0.2 mg/dL Normal 0.0-0.4 [facility] Comment on above: Performed By: #### 2 686131 #### [facility] [address] [place] [address] Bilirubin.indirect [Mass or moles/Vol] 0.2 mg/dL Normal 0.1-0.9 [facility] Comment on above: Performed By: #### 2 [id number] #### [facility] Laboratory [address] [place] [address] Globulin (S) [Mass/Vol] 3.0 g/dL Normal 1.4-4.0 [facility] Comment on above: Performed By: #### 2 [id number] #### [facility] [address] [place] [address] Protein [Mass/Vol] 6.6 g/dL Normal 6.0-7.8 [facility] Comment on above: Performed By: #### 2 [id number] #### [facility] [address] [place] [address] LqdL6ift 10-06-2023 HbA1c (Bld) [Mass fraction] 7.6 % High <=5.9 [facility] Comment on above: Performed By: #### 7 [id number] #### [facility] [address] [place] [address] No Panel InformationOrdered By: ANGPROCESSSERVER MICROBIOLOGY on 10-06-2023 Blood Culture Charcoal No growth at 3 da ys. Final to follow at 7 days. [facility] Blood Culture Charcoal No growth at 3 da ys. Final to follow at 7 days. [facility] eGFRon 10-06-2023 eGFR 60 mL/min/1.73 m2 Normal >=59 [facility] Comment on above: Order Comment: Order added by Discern Expert. Performed By: #### 1 [id number] #### [facility] [address] [place] [address] BMPon 10-05-2023 Anion gap [Moles/Vol] 15 mmol/L Normal 6-16 [facility] Comment on above: Order Comment: Pt is a line- Spoke w/ RN and dropped of line packet, [id number] 10/05/2023 08:03:47 EDT Performed By: #### 2 [id number] #### [facility] [address] [place] [address] Calcium [Mass/Vol] 8.7 mg/dL Low 8.9-11.1 [facility] Comment on above: Order Comment: Pt is a line- Spoke w/ RN and dropped of line packet, [id number] 10/05/2023 08:03:47 EDT Performed By: #### 2 [id number] #### [facility] [address] [place] [address] Chloride [Moles/Vol] 104 mmol/L Normal 101-111 [facility] Comment on above: Order Comment: Pt is a line- Spoke w/ RN and dropped of line packet, [id number] 10/05/2023 08:03:47 EDT Performed By: #### 2 [id number] #### [facility] [address] [place] [address] CO2 [Moles/Vol] 18 mmol/L Low 21-[address] [facility] Comment on above: Order Comment: Pt is a line- Spoke w/ RN and dropped of line packet, [id number] 10/05/2023 08:03:47 EDT Performed By: #### 2 [id number] #### [facility] [address] [place] [address] Creatinine [Mass/Vol] 1.7 mg/dL High 0.5-1.3 [facility] Comment on above: Order Comment: Pt is a line- Spoke w/ RN and dropped of line packet, [id number] 10/05/2023 08:03:47 EDT Performed By: #### 2 [id number] #### [facility] [address] [place] [address] Glucose [Mass/Vol] 312 mg/dL High 55-199 [facility] Comment on above: Order Comment: Pt is a line- Spoke w/ RN and dropped of line packet, [id number] 10/05/2023 08:03:47 EDT Performed By: #### 2 [id number] #### [facility] [address] [place] [address] Potassium [Moles/Vol] 5.3 mmol/L Normal 3.5-5.3 [facility] Comment on above: Order Comment: Pt is a line- Spoke w/ RN and dropped of line packet, [id number] 10/05/2023 08:03:47 EDT Performed By: #### 2 [id number] #### [facility] [address] [place] [address] Sodium [Moles/Vol] 132 mmol/L Low 135-145 [facility] Comment on above: Order Comment: Pt is a line- Spoke w/ RN and dropped of line packet, [id number] 10/05/2023 08:03:47 EDT Performed By: #### 2 [id number] #### [facility] [address] [place] [address] Urea nitrogen [Mass/Vol] 50 mg/dL High 5-21 [facility] Comment on above: Order Comment: Pt is a line- Spoke w/ RN and dropped of line packet, [id number] 10/05/2023 08:03:47 EDT Performed By: #### 2 [id number] #### [facility] [address] [place] [address] Urea nitrogen/Creatinine [Mass ratio] 29 No Units High 10-20 [facility] Comment on above: Order Comment: Pt is a line- Spoke w/ RN and dropped of line packet, [id number] 10/05/2023 08:03:47 EDT Performed By: #### 2 [id number] #### [facility] [address] [place] [address] Anion gap [Moles/Vol] 13 mmol/L Normal 6-16 [facility] Comment on above: Performed By: #### 2 [id number] #### [facility] [address] [place] [address] Calcium [Mass/Vol] 9.2 mg/dL Normal 8.9-11.1 [facility] Comment on above: Performed By: #### 2 [id number] #### [facility] [address] [place] [address] Chloride [Moles/Vol] 104 mmol/L Normal 101-111 [facility] Comment on above: Performed By: #### 2 [id number] #### [facility] [address] [place] [address] CO2 [Moles/Vol] 20 mmol/L Low 21-[address] [facility] Comment on above: Performed By: #### 2 [id number] #### [facility] [address] [place] [address] Creatinine [Mass/Vol] 1.6 mg/dL High 0.5-1.3 [facility] Comment on above: Performed By: #### 2 [id number] #### [facility] [address] [place] [address] Glucose [Mass/Vol] 186 mg/dL Normal 55-199 [facility] Comment on above: Performed By: #### 2 [id number] #### [facility] [address] [place] [address] Potassium [Moles/Vol] 5.4 mmol/L High 3.5-5.3 [facility] Comment on above: Performed By: #### 2 [id number] #### [facility] [address] [place] [address] Sodium [Moles/Vol] 132 mmol/L Low 135-145 [facility] Comment on above: Performed By: #### 2 [id number] #### [facility] [address] [place] [address] Urea nitrogen [Mass/Vol] 52 mg/dL High 5-21 [facility] Comment on above: Performed By: #### 2 [id number] #### [facility] [address] [place] [address] Urea nitrogen/Creatinine [Mass ratio] 32 No Units High 10-20 [facility] Comment on above: Performed By: #### 2 [id number] #### [facility] [address] [place] [address] BNPon 10-05-2023 Natriuretic peptide B (Bld) [Mass/Vol] pg/mL Normal 5-80 [facility] Comment on above: Performed By: #### 1 [id number] #### [facility] [address] [place] [address] Blood Gas Art, with Lytes, G mcihele, [place] 10-05-2023 a/A Ratio Art 30.00 % Normal >=0.80 [facility] Comment on above: Performed By: #### 4 [id number] #### [facility] [address] [place] [address] AaDO2 Art 75.7 mmHg High 5.0-15.0 [facility] Comment on above: Performed By: #### 4 [id number] #### [facility] [address] [place] [address] Allens Test Positive Normal [facility] Comment on above: Performed By: #### 4 [id number] #### [facility] [address] [place] [address] Base Excess Arterial -3.3 mmol/L Low >=2.8 [facility] Comment on above: Performed By: #### 4 [id number] #### [facility] [address] [place] [address] cCa2+ Art 4.90 mg/dL Normal 4.40-5.30 [facility] Comment on above: Performed By: #### 4 [id number] #### [facility] [address] [place] [address] cCl- Art 107.0 mmol/L Normal 101.0-111.0 [facility] Comment on above: Performed By: #### 4 [id number] #### [facility] [address] [place] [address] cGlu Art 189 mg/dL High 55-99 [facility] Comment on above: Performed By: #### 4 [id number] #### [facility] [address] [place] [address] cK+ Art 5.1 mmol/L Normal 3.5-5.3 [facility] Comment on above: Performed By: #### 4 [id number] #### [facility] [address] [place] [address] cLac Art 1.4 mmol/L Normal .5-2.2 [facility] Comment on above: Performed By: #### 4 [id number] #### [facility] [address] [place] [address] supervisor title+ Art 133.0 mmol/L Low 135.0-145.0 [facility] Comment on above: Performed By: #### 4 [id number] #### [facility] [address] [place] [address] Drawn by wmb Invalid Interpretation Code [facility] Comment on above: Performed By: #### 4 [id number] #### [facility] [address] [place] [address] FCOHb Art 2.1 % Normal 1.5-4.9 [facility] Comment on above: Result Comment: Refe rence range Nonsmoker <1.5% Smoker <5.0% Heavy Smoker <9.0% Performed By: #### 4 [id number] #### [facility] [address] [place] [address] FIO2 BG 21 Invalid Interpretation Code [facility] Comment on above: Performed By: #### 4 [id number] #### [facility] [address] [place] [address] FMetHb Art 0.7 % Normal 0.0-1.9 [facility] Comment on above: Performed By: #### 4 [id number] #### [facility] [address] [place] [address] FO2Hb Art 64.1 % Abnormal 93.0-100.0 [facility] Comment on above: Result Comment: Resu lts Called To Chelsea Ortiz By Carmen goldstein And Read Back For Confirmation On 10/05/2023 02:22:36 EDT. Performed By: #### 4 [id number] #### [facility] [address] [place] [address] HCO3 (Bld) [Moles/Vol] 21.1 mmol/L Low 22.0-26.0 [facility] Comment on above: Performed By: #### 4 [id number] #### [facility] [address] [place] [address] Hemoglobin (Bld) [Mass/Vol] 11.9 g/dL Low 12.0-17.0 [facility] Comment on above: Performed By: #### 4 [id number] #### [facility] [address] [place] [address] Oxygen saturation in Blood 66.0 % Low 95.0-100.0 [facility] Comment on above: Performed By: #### 4 [id number] #### [facility] [address] [place] [address] P CO2 Arterial 33.7 mmHg Low 35.0-45.0 [facility] Comment on above: Performed By: #### 4 [id number] #### [facility] [address] [place] [address] P O2 Arterial 32.4 mmHg Abnormal 80.0-100.0 [facility] Comment on above: Result Comment: Resu lts Called To Chelsea Ortiz By Carmen goldstein And Read Back For Confirmation On 10/05/2023 02:22:36 EDT. Performed By: #### 4 [id number] #### [facility] [address] [place] [address] pH Arterial 7.400 Normal 7.350-7.450 [facility] Comment on above: Performed By: #### 4 [id number] #### [facility] [address] [place] [address] Sample Site R Radial Normal [facility] Comment on above: Performed By: #### 4 [id number] #### [facility] [address] [place] [address] Sample Type Mixed Venous Normal [facility] Comment on above: Performed By: #### 4 [id number] #### [facility] [address] [place], [place] [id number] CBC w/ Auto Diffon 4 Basophils/100 WBC (Bld) 0.2 % Normal 0.0-2.0 [facility] Comment on above: Order Comment: Pt is a line- Spoke w/ RN and dropped of line packet, [id number] 10/05/2023 08:03:47 EDT Performed By: #### 2 [id number] #### [facility] [address] [place] [address] Basophils/Leukocytes Auto (Bld) [Pure # fraction] 0.0 E9/L Normal 0.0-0.2 [facility] Comment on above: Order Comment: Pt is a line- Spoke w/ RN and dropped of line packet, [facility] 10/05/2023 08:03:47 EDT Performed By: #### 2 [id number] #### [facility] [address] [place] [address] Eosinophils (Bld) [#/Vol] 0.0 E9/L Normal 0.0-0.5 [facility] Comment on above: Order Comment: Pt is a line- Spoke w/ RN and dropped of line packet, [facility] 10/05/2023 08:03:47 EDT Performed By: #### 2 [id number] #### [facility] [address] [place] [address] Eosinophils/100 WBC (Bld) 0.0 % Normal 0.0-8.0 [facility] Comment on above: Order Comment: Pt is a line- Spoke w/ RN and dropped of line packet, [facility] 10/05/2023 08:03:47 EDT Performed By: #### 2 [id number] #### [facility] [address] [place] [address] Erythrocyte distribution width (RBC) [Ratio] 14.8 % High 10.9-14.2 [facility] Comment on above: Order Comment: Pt is a line- Spoke w/ RN and dropped of line packet, [facility] 10/05/2023 08:03:47 EDT Performed By: #### 2 [id number] #### [facility] [address] [place] [address] Hematocrit (Bld) [Volume fraction] 29.5 % Low 37.7-49.0 [facility] Comment on above: Order Comment: Pt is a line- Spoke w/ RN and dropped of line packet, [facility] 10/05/2023 08:03:47 EDT Performed By: #### 2 [id number] #### [facility] [address] [place] [address] Hemoglobin (Bld) [Mass/Vol] 10.4 g/dL Low 13.5-17.5 [facility] Comment on above: Order Comment: Pt is a line- Spoke w/ RN and dropped of line packet, [id number] 10/05/2023 08:03:47 EDT Performed By: #### 2 [id number] #### [facility] [address] [place] [address] Lymphocytes (Bld) [#/Vol] 0.3 E9/L Low 1.0-4.0 [facility] Comment on above: Order Comment: Pt is a line- Spoke w/ RN and dropped of line packet, [id number] 10/05/2023 08:03:47 EDT Performed By: #### 2 [id number] #### [facility] [address] [place] [address] Lymphocytes/100 WBC (Bld) 3.6 % Low 14.0-50.0 [facility] Comment on above: Order Comment: Pt is a line- Spoke w/ RN and dropped of line packet, [id number] 10/05/2023 08:03:47 EDT Performed By: #### 2 [id number] #### [facility] [address] [place] [address] MCH (RBC) [Entitic mass] 31.7 pg Normal 27.0-34.0 [facility] Comment on above: Order Comment: Pt is a line- Spoke w/ RN and dropped of line packet, [id number] 10/05/2023 08:03:47 EDT Performed By: #### 2 [id number] #### [facility] [address] [place] [address] MCHC (RBC) [Mass/Vol] 35.4 g/dL Normal 31.4-36.0 [facility] Comment on above: Order Comment: Pt is a line- Spoke w/ RN and dropped of line packet, [id number] 10/05/2023 08:03:47 EDT Performed By: #### 2 [id number] #### [facility] [address] [place] [address] MCV (RBC) [Entitic vol] 89.5 fL Normal 80.0-100.0 [facility] Comment on above: Order Comment: Pt is a line- Spoke w/ RN and dropped of line packet, [id number] 10/05/2023 08:03:47 EDT Performed By: #### 2 [id number] #### [facility] [address] [place] [address] Monocytes (Bld) [#/Vol] 0.7 E9/L Normal 0.2-1.0 [facility] Comment on above: Order Comment: Pt is a line- Spoke w/ RN and dropped of line packet, [id number] 10/05/2023 08:03:47 EDT Performed By: #### 2 [id number] #### [facility] [address] [place] [address] Neutrophils (Bld) [#/Vol] 8.5 E9/L High 2.0-7.5 [facility] Comment on above: Order Comment: Pt is a line- Spoke w/ RN and dropped of line packet, [id number] 10/05/2023 08:03:47 EDT Performed By: #### 2 [id number] #### [facility] [address] [place] [address] Neutrophils/100 WBC (Bld) 89.1 % High 36.0-75.0 [facility] Comment on above: Order Comment: Pt is a line- Spoke w/ RN and dropped of line packet, [id number] 10/05/2023 08:03:47 EDT Performed By: #### 2 [id number] #### [facility] [address] [place] [address] Platelet 179.0 E9/L Normal 150.0-500.0 [facility] Comment on above: Order Comment: Pt is a line- Spoke w/ RN and dropped of line packet, [id number] 10/05/2023 08:03:47 EDT Performed By: #### 2 [id number] #### [facility] [address] [place] [address] Platelet mean volume (Bld) [Entitic vol] 9.2 fL Normal 6.4-10.8 [facility] Comment on above: Order Comment: Pt is a line- Spoke w/ RN and dropped of line packet, [id number] 10/05/2023 08:03:47 EDT Performed By: #### 2 [id number] #### [facility] [address] [place] [address] RBC (Bld) [#/Vol] 3.3 E12/L Low 4.3-5.9 [facility] Comment on above: Order Comment: Pt is a line- Spoke w/ RN and dropped of line packet, [id number] 10/05/2023 08:03:47 EDT Performed By: #### 2 [id number] #### [facility] [address] [place] [address] WBC corrected for nucl RBC Auto (Bld) [#/Vol] 9.6 E9/L Normal 4.0-11.[address] [facility] Comment on above: Order Comment: Pt is a line- Spoke w/ RN and dropped of line packet, [id number] 10/05/2023 08:03:47 EDT Performed By: #### 2 [id number] #### [facility] [address] [place] [address] Basophils/100 WBC (Bld) 0.3 % Normal 0.0-2.0 [facility] Comment on above: Result Comment: Yamila ection date/time has been modified to: 01:30:00. Previous collection date/time: 01:45:00. Performed By: #### 2 [id number] #### [facility] [address] [place] [address] Basophils/Leukocytes Auto (Bld) [Pure # fraction] 0.0 E9/L Normal 0.0-0.2 [facility] Comment on above: Result Comment: Yamila ection date/time has been modified to: 01:30:00. Previous collection date/time: 01:45:00. Performed By: #### 2 [id number] #### [facility] [address] [place] [address] Eosinophils (Bld) [#/Vol] 0.0 E9/L Normal 0.0-0.5 [facility] Comment on above: Result Comment: Yamila ection date/time has been modified to: 01:30:00. Previous collection date/time: 01:45:00. Performed By: #### 2 [id number] #### [facility] [address] [place] [address] Eosinophils/100 WBC (Bld) 1.3 % Normal 0.0-8.0 [facility] Comment on above: Result Comment: Yamila ection date/time has been modified to: 01:30:00. Previous collection date/time: 01:45:00. Performed By: #### 2 [id number] #### [facility] [address] [place] [address] Erythrocyte distribution width (RBC) [Ratio] 14.6 % High 10.9-14.2 [facility] Comment on above: Result Comment: Yamila ection date/time has been modified to: 01:30:00. Previous collection date/time: 01:45:00. Performed By: #### 2 [id number] #### [facility] [address] [place] [address] Hematocrit (Bld) [Volume fraction] 33.7 % Low 37.7-49.0 [facility] Comment on above: Result Comment: Yamila ection date/time has been modified to: 01:30:00. Previous collection date/time: 01:45:00. Performed By: #### 2 [id number] #### [facility] [address] [place] [address] Hemoglobin (Bld) [Mass/Vol] 11.4 g/dL Low 13.5-17.5 [facility] Comment on above: Result Comment: Yamila ection date/time has been modified to: 01:30:00. Previous collection date/time: 01:45:00. Performed By: #### 2 [id number] #### [facility] [address] [place] [address] Lymphocytes (Bld) [#/Vol] 0.2 E9/L Low 1.0-4.0 [facility] Comment on above: Result Comment: Yamila ection date/time has been modified to: 01:30:00. Previous collection date/time: 01:45:00. Performed By: #### 2 [id number] #### [facility] [address] [place] [address] Lymphocytes/100 WBC (Bld) 4.9 % Low 14.0-50.0 [facility] Comment on above: Result Comment: Yamila ection date/time has been modified to: 01:30:00. Previous collection date/time: 01:45:00. Performed By: #### 2 [id number] #### [facility] [address] [place] [address] MCH (RBC) [Entitic mass] 30.4 pg Normal 27.0-34.0 [facility] Comment on above: Result Comment: Yamila ection date/time has been modified to: 01:30:00. Previous collection date/time: 01:45:00. Performed By: #### 2 [id number] #### [facility] [address] [place] [address] MCHC (RBC) [Mass/Vol] 33.9 g/dL Normal 31.4-36.0 [facility] Comment on above: Result Comment: Yamila ection date/time has been modified to: 01:30:00. Previous collection date/time: 01:45:00. Performed By: #### 2 [id number] #### [facility] [address] [place] [address] MCV (RBC) [Entitic vol] 89.7 fL Normal 80.0-100.0 [facility] Comment on above: Result Comment: Yamila ection date/time has been modified to: 01:30:00. Previous collection date/time: 01:45:00. Performed By: #### 2 [id number] #### [facility] [address] [place] [address] Monocytes (Bld) [#/Vol] 0.0 E9/L Low 0.2-1.0 [facility] Comment on above: Result Comment: Yamila ection date/time has been modified to: 01:30:00. Previous collection date/time: 01:45:00. Performed By: #### 2 [id number] #### [facility] [address] [place] [address] Neutrophils (Bld) [#/Vol] 3.4 E9/L Normal 2.0-7.5 [facility] Comment on above: Result Comment: Yamila ection date/time has been modified to: 01:30:00. Previous collection date/time: 01:45:00. Performed By: #### 2 [id number] #### [facility] [address] [place] [address] Neutrophils/100 WBC (Bld) 92.7 % High 36.0-75.0 [facility] Comment on above: Result Comment: Yamila ection date/time has been modified to: 01:30:00. Previous collection date/time: 01:45:00. Performed By: #### 2 [id number] #### [facility] [address] [place] [address] Platelet mean volume (Bld) [Entitic vol] 9.1 fL Normal 6.4-10.8 [facility] Comment on above: Result Comment: Yamila ection date/time has been modified to: 01:30:00. Previous collection date/time: 01:45:00. Performed By: #### 2 [id number] #### [facility] [address] [place] [address] Platelets (Bld) [#/Vol] 216.0 E9/L Normal 150.0-500.0 [facility] Comment on above: Result Comment: Yamila ection date/time has been modified to: 01:30:00. Previous collection date/time: 01:45:00. Performed By: #### 2 [id number] #### [facility] [address] [place] [address] RBC (Bld) [#/Vol] 3.8 E12/L Low 4.3-5.9 [facility] Comment on above: Result Comment: Yamila ection date/time has been modified to: 01:30:00. Previous collection date/time: 01:45:00. Performed By: #### 2 [id number] #### [facility] [address] [place] [address] WBC corrected for nucl RBC Auto (Bld) [#/Vol] 3.6 E9/L Low 4.0-11.[address] [facility] Comment on above: Result Comment: Yamila ection date/time has been modified to: 01:30:00. Previous collection date/time: 01:45:00. Performed By: #### 2 [id number] #### [facility] [address] [place] [address] Basophils/100 WBC (Bld) 0.3 % Normal 0.0-2.0 [facility] Comment on above: Performed By: #### 2 [id number] #### [facility] [address] [place] [address] Basophils/Leukocytes Auto (Bld) [Pure # fraction] 0.0 E9/L Normal 0.0-0.2 [facility] Comment on above: Performed By: #### 2 [id number] #### [facility] [address] [place] [address] Eosinophils (Bld) [#/Vol] 0.0 E9/L Normal 0.0-0.5 [facility] Comment on above: Performed By: #### 2 [id number] #### [facility] [address] [place] [address] Eosinophils/100 WBC (Bld) 1.3 % Normal 0.0-8.0 [facility] Comment on above: Performed By: #### 2 [id number] #### [facility] [address] [place] [address] Erythrocyte distribution width (RBC) [Ratio] 14.6 % High 10.9-14.2 [facility] Comment on above: Performed By: #### 2 [id number] #### [facility] [address] [place] [address] Hematocrit (Bld) [Volume fraction] 33.7 % Low 37.7-49.0 [facility] Comment on above: Performed By: #### 2 [id number] #### [facility] [address] [place] [address] Hemoglobin (Bld) [Mass/Vol] 11.4 g/dL Low 13.5-17.5 [facility] Comment on above: Performed By: #### 2 [id number] #### [facility] [address] [place] [address] Lymphocytes (Bld) [#/Vol] 0.2 E9/L Low 1.0-4.0 [facility] Comment on above: Performed By: #### 2 [id number] #### [facility] [address] [place] [address] Lymphocytes/100 WBC (Bld) 4.9 % Low 14.0-50.0 [facility] Comment on above: Performed By: #### 2 [id number] #### [facility] [address] [place] [address] MCH (RBC) [Entitic mass] 30.4 pg Normal 27.0-34.0 [facility] Comment on above: Performed By: #### 2 [id number] #### [facility] [address] [place] [address] MCHC (RBC) [Mass/Vol] 33.9 g/dL Normal 31.4-36.0 [facility] Comment on above: Performed By: #### 2 [id number] #### [facility] [address] [place] [address] MCV (RBC) [Entitic vol] 89.7 fL Normal 80.0-100.0 F [facility] Comment on above: Performed By: #### 2 [id number] #### [facility] [address] [place] [address] Monocytes (Bld) [#/Vol] 0.0 E9/L Low 0.2-1.0 [facility] Comment on above: Performed By: #### 2 [id number] #### [facility] [address] [place] [address] Neutrophils (Bld) [#/Vol] 3.4 E9/L Normal 2.0-7.5 [facility] Comment on above: Performed By: #### 2 [id number] #### [facility] [address] [place] [address] Neutrophils/100 WBC (Bld) 92.7 % High 36.0-75.0 [facility] Comment on above: Performed By: #### 2 [id number] #### [facility] [address] [place] [address] Platelet mean volume (Bld) [Entitic vol] 9.1 fL Normal 6.4-10.8 [facility] Comment on above: Performed By: #### 2 [id number] #### [facility] [address] [place] [address] Platelets (Bld) [#/Vol] 216.0 E9/L Normal 150.0-500.0 [facility] Comment on above: Performed By: #### 2 [id number] #### [facility] [address] [place] [address] RBC (Bld) [#/Vol] 3.8 E12/L Low 4.3-5.9 [facility] Comment on above: Performed By: #### 2 [id number] #### [facility] [address] [place] [address] WBC corrected for nucl RBC Auto (Bld) [#/Vol] 3.6 E9/L Low 4.0-11.[address] [facility] Comment on above: Performed By: #### 2 [id number] #### [facility] [address] [place] [address] CHEMISTRYOrdered By: Anushka Lopez on 10-05-2023 HbA1c (Bld) [Mass fraction] 7.6 % High <=5.9% [facility] ChemAutoSS CHEMISTRYOrdered By: SYSTEM SYSTEM on 10-05-2023 [...] Sensitivity Troponin I Instructions For Use, Alen [place], October 2017) Lactic Acid Lvl 1.3 mmol/L [...] Instructions For Use, Alen [place], October 2017) CHEMISTRYOrdered By: Tiki Purdy on 10-05-2023 Natriuretic peptide B (Bld) [Mass/Vol] pg/mL Normal 5 - 80 pg/mL [facility] HemeManSS COAGULATIONOrdered By: Otis Purdy on 10-05-2023 aPTT Coag (PPP) [Time] 37.9 s High 25.1 - 36.5 second(s) [facility] Auto Coag Comment on above: Interpretive Data: [...] the same coagulation reagent and instrumentation as [facility]. Currently there are no coagulation studies available worldwide for children to 14 days, and no normal ranges. Heparin therapeutic range (represented by Anti-Factor Xa activity of 0.2 - 0.4 U/mL) corresponds to PTT of 56.6 - 109.0 sec. Result Comment: Yamila ection date/time has been modified to: 01:30:00. Previous collection date/time: 01:45:00. INR Coag (PPP) [Relative time] 1.06 {INR} Invalid Interpretation Code [facility] Auto Coag Comment on above: Interpretive Data: I NR results are specifically intended to assess patients stabilized on long-term Anticoagulation therapy suggested INR s Less Intensive Anticoagulation 2.0 3.0 Conventional Range 3.0 4.5 Result Comment: Yamila ection date/time has been modified to: 01:30:00. Previous collection date/time: 01:45:00. PT Coag (PPP) [Time] 11.9 s Normal 9.4 - 1 2.5 second(s) [facility] Auto Coag Comment on above: Interpretive Data: [...] the same coagulation reagent and instrumentation as [facility]. Currently there are no coagulation studies available [...] 370 Contrast amount in ml's: 70 Normal [facility] Capillary Glucose POCon 09-09 Glucose [Mass/Vol] 305 mg/dL High 55-99 [facility] Comment on above: Result Comment: Ty GONZALEZ Performed By: #### 2 [id number] #### [facility] [address] [place] [address] Glucose [Mass/Vol] 374 mg/dL High 55-99 [facility] Comment on above: Result Comment: Ty GONZALEZ Performed By: #### 2 [id number] #### [facility] [address] [place] [address] Glucose [Mass/Vol] 397 mg/dL High 55-99 [facility] Comment on above: Result Comment: Ty GONZALEZ Performed By: #### 2 [id number] #### [facility] [address] [place] [address] Glucose [Mass/Vol] 317 mg/dL High 55-99 [facility] Comment on above: Result Comment: Ty lester RN/MD Performed By: #### 2 [id number] #### [facility] [address] [place] [address] ED Clinical Summaryon 2023 ED Clinical Summary ED Clinical Summary [address] [address] ED Clinical Summary Person Information Name: ALTAGRACIA CONWAY [facility] Age: 68 Years : 1955 Sex: Male Language: Finnish PCP: TIKI DOCKERY DO Marital Status: Visit Id: Visit Reason: Chills; Cough; Shortness of breath; sob Speciality: Acuity: 2 Enc Type: Inpatient Med Service: Emergency Arrival: 10/05/2023 01:11:30 Discharge: LOS: 000 03:11 Checkin: 10/05/2023 01:11:30 Checkout: 10/05/2023 04:22:52 [facility]po [facility] EVENTS: Event Name Event Status Request [...] Meds Admin Request 10/05/2023 04:16:44 ADDRESS: [address] [phone] PHYS DOC NOTES: MEDICAL INFORMATION: Prescriptions Given: [...] metoprolol (Metop (more content not included)... Normal [facility] ED Note-Physicianon 10-05-19 ED Note-Physician ED Note-Physician Basic Information Time Seen: Angel CHAPA Chelsea Gisselle 10/05/2023 01:12 Chief Complaint pt to ED [...] and Complexity of Problems Differential Diagnosis: [] [facility] Data External documents reviewed: [] My EKG [...] Therapy PT & PTT Rapid COVID Antigen ([facility]) Saline Lock Insert Troponin 0 Hr. Troponin 1 Hr. XR Chest Single View Medications Administered Given So (more content not included)... Normal [facility] Comment on above: Result Comment: Elec tronically Signed By: Chelsea Ortiz DO\.br\Date and Time Signed: 10/05/23 02:40 EDT ED Patient Education Noteon 10-05-2023 ED Patient Education Note ED Patient Education Note Normal [facility] ED Patient Summaryon ED Patient Summary ED Patient Summary [place] [address] Patient Discharge Instructions Person Information Name: MANROSENDAJose Cruz Montiel Age: 68 Years Arrival Date: 10/05/2023 01:11:30 Discharge Diagnosis: 1:COPD exacerbation; 2:Acute respiratory failure with hypoxia; 3:Smoker; 4:Anxiety; 5:HTN (hypertension); 6:Hyperlipidemia; 7:DM2 (diabetes mellitus, type 2); 8:History of pancreatic cancer; 9:CKD (chronic kidney disease), stage III; 10:On deep vein thrombosis (DVT) prophylaxis; Hypoxia Primary Care Physician: TIKI DOCKERY DO Provider Information Primary Provider: Chelsea Ortiz DO Advanced Public Works Inspector:None The exam and treatment you received in the Emergency Department were for an urgent problem and are not intended as complete care. It is important that you follow up with a doctor, nurse practitioner, or physician?s sales assistant displays for ongoing care. If your symptoms become [...] opioids can be used to help relieve dhnlciea-dp-eeqocc pain and are often prescribed following a [...] tell you (more content not included)... Normal [facility] FT Blood GasesOrdered By: Risa Goldstein on 10-05-2023 a/A Ratio Art 30.00 % Normal >=0.80% [facility] Resp Auto SS AaDO2 Art 75.7 mm[Hg] [...] 189 mg/dL High 55 - 99 mg/dL [facility] Resp Auto SS cK+ Art 5.1 mmol/L Normal 3.5 - 5.3 mmol/L [facility] Resp Auto SS cLac Art 1.4 mmol/L Normal 0.5 - 2.2 mmol/L [facility] Resp Auto SS supervisor title+ Art 133.0 mmol/L Low 135.0 - 145.0 mmol/L [facility] Resp Auto SS Drawn by wmb Invalid Interpretation Code [facility] Resp Auto SS FCOHb Art 2.1 % Normal 1.5 - 4.9 % [facility] Resp Auto SS Comment on above: Interpretive Data: R eference range Nonsmoker <1.5% Smoker <5.0% Heavy Smoker <9.0% FIO2 BG 21 1 Invalid Interpretation Code [facility] Resp Auto SS FMetHb Art 0.7 % Normal 0.0 - 1.9 % [facility] Resp Auto SS FO2Hb Art 64.1 % [...] 33.7 mm[Hg] Low 35.0 - 45.0 mmHg FT Resp Auto SS P O2 Arterial 32.4 mm[Hg] Invalid Interpretation Code 80.0 - 100.0 mmHg [facility] Resp Auto SS Comment on above: Result Comment: Resu lts Called To Chelsea Ortiz By Carmen goldstein And Read Back For Confirmation On 10/05/2023 02:22:36 EDT. pH (Bld) 7.400 [pH] Normal 7.350 - 7.450 [facility] Resp Auto SS Sample Site R Radial (10/05/23 1:42 AM) Normal [facility] Resp Auto SS Sample Type Mixed Venous (10/05/23 1:42 AM) Normal [facility] Resp Auto SS HEMATOLOGYOrdered By: SYSTEM SYSTEM [...] (Sput) 1+ Normal upper respiratory ninfa isolated [facility] Lactic Acidon 10-05-2023 Lactic Acid Lvl 1.3 mmol/L Normal 0.5-2.[address] [facility] Comment on above: Performed By: #### 2 [id number] #### [facility] [address] [place] [address] MICRO OTHER TESTSOrdered By: Tiki Purdy on 10-05-2023 Rapid COV Int NEG Ctl Pass (10/05/23 1:23 AM) Normal [facility] Sero Rapid COV Int POS Ctl Pass (10/05/23 1:23 AM) Normal [facility] Sero SARS-CoV+SARS-CoV-2 (COVID-19) Ag IA.rapid Ql (Resp) Not Detected 17 (10/05/23 1:23 AM) Normal Not Detected [facility]ero Comment on above: Interpretive Data: [place] [employer] Veritor System for Rapid Detection of SARS-CoV-2 [...] Occasional epithelial cells Occasional Gram Positive Cocci [facility] PT & PTTon 10-05-2023 aPTT Coag (PPP) [Time] 37.9 second(s) High 25.1-36.5 [facility] Comment on above: Result Comment: Para meter [...] the same coagulation reagent and instrumentation as [facility]. Currently there are no coagulation studies available worldwide for children to 14 days, and no normal ranges. Heparin therapeutic range (represented by Anti-Factor Xa activity of 0.2 - 0.4 U/mL) corresponds to PTT of 56.6 - 109.0 sec. Collection date/time has been modified to: 01:30:00. Previous collection date/time: 01:45:00. Performed By: #### 1 [id number] #### [facility] [address] [place] [address] INR Coag (PPP) [Relative time] 1.06 {INR} Invalid Interpretation Code [facility] Comment on above: Result Comment: INR results are specifically intended to assess patients stabilized on long-term Anticoagulation therapy suggested INR?s ?Less Intensive Anticoagulation? 2.0 ? 3.0 Conventional Range 3.0 ? 4.5 Collection date/time has been modified to: 01:30:00. Previous collection date/time: :45:00. Performed By: #### 1 [id number] #### [facility] [address] [place] [address] PT Coag (PPP) [Time] 11.9 second(s) Normal 9.4-12.5 [facility] Comment on above: Result Comment: 15 d [...] the same coagulation reagent and instrumentation as [facility]. Currently there are no coagulation studies available worldwide for children to 14 days, and no normal ranges. Collection date/time has been modified to: 01:30:00. Previous collection date/time: 01:45:00. Performed By: #### 1 [id number] #### [facility] [address] [place] [address] aPTT Coag (PPP) [Time] 37.9 second(s) High 25.1-36.5 [facility] Comment on above: Result Comment: Para meter [...] the same coagulation reagent and instrumentation as [facility]. Currently there are no coagulation studies available worldwide for children to 14 days, and no normal ranges. Heparin therapeutic range (represented by Anti-Factor Xa activity of 0.2 - 0.4 U/mL) corresponds to PTT of 56.6 - 109.0 sec. Performed By: #### 1 [id number] #### [facility] [address] [place] [address] INR Coag (PPP) [Relative time] 1.06 {INR} Invalid Interpretation Code [facility] Comment on above: Result Comment: INR results are specifically intended to assess patients stabilized on long-term Anticoagulation therapy suggested INR?s ?Less Intensive Anticoagulation? 2.0 ? 3.0 Conventional Range 3.0 ? 4.5 Performed By: #### 1 [id number] #### [facility] [address] [place] [address] PT Coag (PPP) [Time] 11.9 second(s) Normal 9.4-12.5 [facility] Comment on above: Result Comment: 15 d [...] the same coagulation reagent and instrumentation as [facility]. Currently there are no coagulation studies available worldwide for children to 14 days, and no normal ranges. Performed By: #### 1 [id number] #### [facility] [address] [place] [address] Procalcitoninon 10-05-2023 Procalcitonin 15.35 ng/mL High .00-.50 [facility] Comment on above: Result Comment: <0.5 ng/mL [...] to 24 hours. Performed By: #### 2 [id number] #### [facility] [address] [place] [address] Rapid COVID Antigen ([facility])on 10-05-2023 Rapid COV Int NEG Ctl Pass Normal [facility] Comment on above: Performed By: #### 2 [id number] #### [facility] [address] [place] [address] Rapid COV Int POS Ctl Pass Normal [facility] Comment on above: Performed By: #### 2 [id number] #### [facility] [address] [place] [address] SARS-CoV+SARS-CoV-2 (COVID-19) Ag IA.rapid Ql (Resp) Not detected Normal Not Detected [facility] Comment on above: Result Comment: The BD Veritor? System for Rapid Detection of SARS-CoV-2 is [...] or revoked sooner. Performed By: #### 2 [id number] #### [facility] [address] [place] [address] Respiratory Panel by PCRon 0 10-05-2023 Adenovirus DNA ANN+non-probe Ql (Nph) Not detected Normal [facility] Comment on above: Result Comment: Test ing was performed using nucleic acid amplification including Influenza A, Influenza A H1, Influenza A H3, Influenza B, RSV A, RSV B, Adenovirus, Human Metapneumovirus, Parainfluenza 1,2,3, and 4, Rhinovirus, Bordetella parapertussis/bronchiseptica, Bordetella holmesii, and Bordetella pertussis. Performed By: #### 1 [id number] #### [facility] [address] [place] [address] B. parapertussis DNA ANN+probe Ql (Upper resp) Not detected Normal Not Detected [facility] Comment on above: Performed By: #### 1 [id number] #### [facility] [address] [place] [address] B. pertussis DNA ANN+probe Ql (Upper resp) Not detected Normal Not Detected [facility] Comment on above: Performed By: #### 1 [id number] #### [facility] [address] [place] [address] FLUAV H1 RNA ANN+non-probe Ql (Nph) Not detected Normal [facility] Comment on above: Performed By: #### 1 [id number] #### [facility] [address] [place] [address] FLUAV H3 RNA ANN+non-probe Ql (Nph) Not detected Normal [facility] Comment on above: Performed By: #### 1 [id number] #### [facility] [address] [place] [address] FLUAV RNA ANN+non-probe Ql (Nph) Not detected Normal [facility] Comment on above: Performed By: #### 1 [id number] #### [facility] [address] [place] [address] FLUBV RNA ANN+non-probe Ql (Nph) Not detected Normal [facility] Comment on above: Performed By: #### 1 [id number] #### [facility] [address] [place] [address] Human Metapneumovirus Not detected Normal [facility] Comment on above: Result Comment: This test result should be correlated with clinical presentations and medical history by a healthcare provider to determine its clinical significance. Performed By: #### 1 [id number] #### [facility] [address] [place] [address] Parainfluenza virus 1 RNA ANN+non-probe Ql (Nph) Not detected Normal [facility] Comment on above: Performed By: #### 1 [id number] #### [facility] [address] [place] [address] Parainfluenza virus 2 RNA ANN+non-probe Ql (Nph) Not detected Normal [facility] Comment on above: Performed By: #### 1 [id number] #### [facility] [address] [place] [address] Parainfluenza virus 3 RNA ANN+non-probe Ql (Nph) Not detected Normal [facility] Comment on above: Performed By: #### 1 [id number] #### [facility] [address] [place] [address] Parainfluenza virus 4 RNA ANN+non-probe Ql (Nph) Not detected Normal [facility] Comment on above: Performed By: #### 1 [id number] #### [facility] [address] [place] [address] Resp Panel Intrl QC Pass Normal [facility] Comment on above: Performed By: #### 1 [id number] #### [facility] [address] [place] [address] Rhinovirus+Enterovirus RNA ANN+non-probe Ql (Nph) Not detected Normal [facility] Comment on above: Performed By: #### 1 [id number] #### [facility] [address] [place] [address] RSV RNA ANN+non-probe Ql (Nph) Not detected Normal [facility] Comment on above: Performed By: #### 1 [id number] #### [facility] [address] [place] [address] TOBRAMYCIN:SUSC:PT:ISOLATE:O RDQN:MICOrdered By: Nissa Santo on 10-05-2023 Tobramycin DEVIN [Susc] Escherichia coli In 2 of 2 blood culture bottles drawn. Isolated from aerobic and anaerobic bottles Preliminary gram stain result of gram negative rods Result called to [facility] by [facility] and results read back for confirmation on 10/05/2023 17:56:10 [facility] Tobramycin DEVIN [Susc] Escherichia coli In 2 of 2 blood culture bottles drawn. Isolated from aerobic and anaerobic bottles Preliminary gram stain result of gram negative rods Result called to [facility] by [facility] and results read back for confirmation on 10/05/2023 17:57. [facility] Tobramycin DEVIN [Susc]Ordered By: Nissa Santo on 10-05-2023 Escherichia coli Escherichia coli [facility] Escherichia coli Escherichia coli [facility] Troponin 0 Hr.on 10-05-2023 Troponin HS 16.50 pg/mL Normal 15.90-38.40 [facility] Comment on above: Result Comment: The 95% CI (Confidence Interval) PPV (Positive Predictive Value) for myocardial infarction in females is 38 pg/mL, in males 51 pg/mL. The results should be used in conjunction with clinical conditions of myocardial infarction. (Access High Sensitivity Troponin I Instructions For Use, [employer], October 2017) Performed By: #### 1 [id number] #### [facility] [address] [place] [address] Troponin 1 Hr.on 10-05-2023 Troponin HS 18.10 pg/mL Normal 15.90-38.40 [facility] Comment on above: Order Comment: due a t 230 Pt has a port, debra tripp is aware. [id number] 10/05/2023 02:28:58 EDT Result Comment: The 95% CI (Confidence Interval) PPV (Positive Predictive Value) for myocardial infarction in females is 38 pg/mL, in males 51 pg/mL. The results should be used in conjunction with clinical conditions of myocardial infarction. (Access High Sensitivity Troponin I Instructions For Use, [employer], October 2017) Performed By: #### 1 [id number] #### [facility] [address] [place] [address] UA with Cult Rflxon 10-05-19 24 Bilirubin Ql (U) Negative Normal Negative [facility] Comment on above: Performed By: #### 4 [id number] #### [facility] [address] [place] [address] Clarity (U) Clear Normal Clear [facility] Comment on above: Performed By: #### 4 [id number] #### [facility] [address] [place] [address] Color (U) Light-Yellow Normal Yellow [facility] Comment on above: Result Comment: Micr oscopic readings are only performed on those samples that meet specific criteria set forth by [facility]. Performed By: #### 4 [id number] #### [facility] [address] [place] [address] Epithelial cells.squamous Auto (Urine sed) [#/Area] 0-2 Invalid Interpretation Code [facility] Comment on above: Performed By: #### 4 [id number] #### [facility] [address] [place] [address] Glucose Ql (U) 4+ mg/dL Abnormal Negative [facility] Comment on above: Performed By: #### 4 [id number] #### [facility] [address] [place] [address] Hemoglobin Auto test strip (U) [Mass/Vol] Negative Normal Negative [facility] Comment on above: Performed By: #### 4 [id number] #### [facility] [address] [place] [address] Ketones Auto test strip Ql (U) Negative Normal Negative [facility] Comment on above: Performed By: #### 4 [id number] #### [facility] [address] [place] [address] Leukocyte esterase Auto test strip Ql (U) 25 Derick/uL Normal Negative [facility] Comment on above: Performed By: #### 4 [id number] #### [facility] [address] [place] [address] Mucus Auto Ql (U) Negative Normal Negative [facility] Comment on above: Performed By: #### 4 [id number] #### [facility] [address] [place] [address]213 Nitrite Auto test strip Ql (U) Negative Normal Negative [facility] Comment on above: Performed By: #### 4 [id number] #### [facility] [address] [place] [address]807 pH (U) 5.0 [pH] Invalid Interpretation Code 5.0-9.0 [facility] Comment on above: Performed By: #### 4 [id number] #### [facility] [address] [place] [address] 08146 Protein Ql (U) Trace Abnormal Negative [facility] Comment on above: Performed By: #### 4 [id number] #### [facility] [address] [place] [address] 99713 RBC Ql (U) 0-3 Normal 0-3 [facility] Comment on above: Performed By: #### 4 [id number] #### [facility] [address] [place], [place] [id number] Specific gravity (U) [Rel density] 1.014 Invalid Interpretation Code 1.005-1.030 [facility] Comment on above: Performed By: #### 4 [id number] #### [facility] [address] [place] [address] Urobilinogen (U) [Mass/Vol] Negative Normal Negative [facility] Comment on above: Performed By: #### 4 [id number] #### [facility] [address] [place] [address] 738[address] WBC Auto (Urine sed) [#/Area] 0-5 Normal 0-5 [facility] Comment on above: Performed By: #### 4 [id number] #### [facility] [address] [place] [address] 79363 Type of Urine collection method Clean Catch Normal [facility] Comment on above: Performed By: #### 4 [id number] #### [facility] [address] [place] [address] URINALYSISOrdered By: SYSTEM SYSTEM on 10-05-2023 Bilirubin Ql (U) Negative Normal Negativemg/ d L [facility] UA Auto SS Clarity (U) Clear (10/05/23 11:26 AM) Normal Clear [facility] UA Auto SS Color (U) Light-Yellow 1 (10/05/23 11:26 AM) Normal Yellow [facility] UA Auto SS Comment on above: Interpretive Data: M icroscopic readings are only performed on those samples that meet specific criteria set forth by [facility]. Epithelial cells.squamous Auto (Urine sed) [#/Area] [...] (U) 25 Derick/uL Derick/uL Normal NegativeLeu/ uL [facility] UA Auto SS Mucus [...] Urobilinogen (U) [Mass/Vol] Negative Normal Negativemg/d L [facility] UA Auto SS WBC Auto (Urine sed) [#/Area] 0-5 graded/HPF Normal 0-5graded/HP F [facility] UA Auto SS URINALYSISOrdered By: Aristides CARIAS on 10-05-2023 UA Spec Desc Clean Catch (10/05/23 11:26 AM) Normal [facility] UA Auto SS XR Chest Single Viewon [...] Raghav Meléndez MD Transcribed by: MIKIE Technologist: VAIBHAV Technical Comments Radiation Dose: Ka,r in mGy = n/a DAP = n/a Normal [facility] eGFRon 10-05-2023 eGFR 43 mL/min/1.73 m2 Low >=59 [facility] Comment on above: Order Comment: Order added by Discern Expert. Performed By: #### 1 [id number] #### [facility] [address] [place] [address] eGFR 47 mL/min/1.73 m2 Low >=59 [facility] Comment on above: Order Comment: Order added by Discern Expert. Performed By: #### 1 [id number] #### [facility] [address] [id number] C Urineon 09-22-2023 Bacteria identified Cx Nom [...] Locations R1: This test was performed at: [facility], [address] [place] [address], [phone] , [place], Normal [facility] Comment on above: Performed By: #### 2 [id number] #### [facility] [address] [place] [address] BMPon 09-21-2023 Anion gap [Moles/Vol] 11 mmol/L Normal 6-16 [facility] Comment on above: Performed By: #### 2 [id number] #### [facility] [address] [place] [address] Calcium [Mass/Vol] 8.8 mg/dL Low 8.9-11.1 [facility] Comment on above: Performed By: #### 2 [id number] #### [facility] [address] [place] [address] Chloride [Moles/Vol] 108 mmol/L Normal 101-111 [facility] Comment on above: Performed By: #### 2 [id number] #### [facility] [address] [place] [address] CO2 [Moles/Vol] 22 mmol/L Normal 21-[address] [facility] Comment on above: Performed By: #### 2 [id number] #### [facility] [address] [place] [address] Creatinine [Mass/Vol] 1.4 mg/dL High 0.5-1.3 [facility] Comment on above: Performed By: #### 2 [id number] #### [facility] [address] [place] [address] Glucose [Mass/Vol] 124 mg/dL Normal 55-199 [facility] Comment on above: Performed By: #### 2 [id number] #### [facility] [address] [place] [address] Potassium [Moles/Vol] 4.3 mmol/L Normal 3.5-5.3 [facility] Comment on above: Performed By: #### 2 [id number] #### [facility] [address] [place] [address] Sodium [Moles/Vol] 137 mmol/L Normal 135-145 [facility] Comment on above: Performed By: #### 2 [id number] #### [facility] [address] [place] [address] Urea nitrogen [Mass/Vol] 27 mg/dL High 5-21 [facility] Comment on above: Performed By: #### 2 [id number] #### [facility] [address] [place] [address] Urea nitrogen/Creatinine [Mass ratio] 19 No Units Normal 10-20 [facility] Comment on above: Performed By: #### 2 [id number] #### [facility] [address] [place] [address] CBC w/ Auto Diffon 4 Basophils/100 WBC (Bld) 0.6 % Normal 0.0-2.0 [facility] Comment on above: Performed By: #### 2 [id number] #### [facility] [address] [place] [address] Basophils/Leukocytes Auto (Bld) [Pure # fraction] 0.1 E9/L Normal 0.0-0.2 [facility] Comment on above: Performed By: #### 2 [id number] #### [facility] [address] [place] [address] Eosinophils (Bld) [#/Vol] 0.4 E9/L Normal 0.0-0.5 [facility] Comment on above: Performed By: #### 2 [id number] #### [facility] [address] [place] [address] Eosinophils/100 WBC (Bld) 3.3 % Normal 0.0-8.0 [facility] Comment on above: Performed By: #### 2 [id number] #### [facility] [address] [place] [address] Erythrocyte distribution width (RBC) [Ratio] 14.4 % High 10.9-14.2 [facility] Comment on above: Performed By: #### 2 [id number] #### [facility] [address] [place] [address] Hematocrit (Bld) [Volume fraction] 31.1 % Low 37.7-49.0 [facility] Comment on above: Performed By: #### 2 [id number] #### [facility] [address] [place] [address] Hemoglobin (Bld) [Mass/Vol] 10.8 g/dL Low 13.5-17.5 [facility] Comment on above: Performed By: #### 2 [id number] #### [facility] [address] [place] [address] Lymphocytes (Bld) [#/Vol] 1.5 E9/L Normal 1.0-4.0 [facility] Comment on above: Performed By: #### 2 [id number] #### [facility] [address] [place] [address] Lymphocytes/100 WBC (Bld) 13.7 % Low 14.0-50.0 [facility] Comment on above: Performed By: #### 2 [id number] #### [facility] [address] [place] [address] 38047 MCH (RBC) [Entitic mass] 30.6 pg Normal 27.0-34.0 [facility] Comment on above: Performed By: #### 2 [id number] #### [facility] [address] [place] [address] MCHC (RBC) [Mass/Vol] 34.8 g/dL Normal 31.4-36.0 [facility] Comment on above: Performed By: #### 2 [id number] #### [facility] [address] [place] [address] MCV (RBC) [Entitic vol] 87.9 fL Normal 80.0-100.0 [facility] Comment on above: Performed By: #### 2 [id number] #### [facility] [address] [place] [address] Monocytes (Bld) [#/Vol] 0.6 E9/L Normal 0.2-1.0 [facility] Comment on above: Performed By: #### 2 [id number] #### [facility] [address] [place] [address] Neutrophils (Bld) [#/Vol] 8.2 E9/L High 2.0-7.5 [facility] Comment on above: Performed By: #### 2 [id number] #### [facility] [address] [place] [address] Neutrophils/100 WBC (Bld) 77.2 % High 36.0-75.0 [facility] Comment on above: Performed By: #### 2 [id number] #### [facility] [address] [place] [address] Platelet 140.0 E9/L Low 150.0-500.0 [facility] Comment on above: Performed By: #### 2 [id number] #### [facility] [address] [place] [address] Platelet mean volume (Bld) [Entitic vol] 8.5 fL Normal 6.4-10.8 [facility] Comment on above: Performed By: #### 2 [id number] #### [facility] [address] [place] [address] RBC (Bld) [#/Vol] 3.5 E12/L Low 4.3-5.9 [facility] Comment on above: Performed By: #### 2 [id number] #### [facility] [address] [place] [address] WBC corrected for nucl RBC Auto (Bld) [#/Vol] 10.7 E9/L Normal 4.0-11.[address] [facility] Comment on above: Performed By: #### 2 [id number] #### [facility] [address] [place] [address] CHEMISTRYOrdered By: Lab ROP User on 09-21-2023 Glucose [Mass/Vol] 133 mg/dL High 55 - 99 mg/dL [facility] Sub[facility] Comment on above: Result Comment: Ty GONZALEZ POC Device SN [id number] 1 Invalid Interpretation Code [facility] Subsection POC User ID [id number] 1 Invalid Interpretation Code [facility]section [facility]OC Username RADHA AGUILAR Invalid Interpretation Code [facility] Subsection CHEMISTRYOrdered By: SYSTEM SYSTEM on [...] 09-08 Glucose [Mass/Vol] 133 mg/dL High 55-99 [facility] Comment on above: Result Comment: Ty GONZALEZ Performed By: #### 2 [id number] #### [facility] [address] [place] [address] HEMATOLOGYOrdered By: SYSTEM SYSTEM on 09-21-2023 Basophils/100 [...] toe (03/11/2015), 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 Discharge Vitals Temperature (Oral) 36.8 ?C Heart [...] Appointments Saturday 10:00 AM EDT With: Donna Johnson Where: [facility] Magnesiumon 09-21-2023 Magnesium [Mass/Vol] 1.8 mg/dL Normal 1.3-2.4 [facility] Comment on above: Order Comment: line packet was given to the nurse. [id number] 09/21/2023 05:56:16 EDT Performed By: #### 2 [id number] #### [facility] [address] [place] [address] Phosphoruson 09-21-2023 Phosphate [Mass/Vol] 2.4 mg/dL Normal 1.9-4.6 [facility] Comment on above: Performed By: #### 2 [id number] #### [facility] [address] [place] [address] eGFRon 09-21-2023 eGFR 55 mL/min/1.73 m2 Low >=59 [facility] Comment on above: Order Comment: Order added by Discern Expert. Performed By: #### 1 [id number] #### [facility] [address] [place] [address] BMPon 09-20-2023 Anion gap [Moles/Vol] 12 mmol/L Normal 6-16 [facility] Comment on above: Performed By: #### 2 [id number] #### [facility] [address] [place] [address] Calcium [Mass/Vol] 8.9 mg/dL Normal 8.9-11.1 [facility] Comment on above: Performed By: #### 2 [id number] #### [facility] [address] [place] [address] Chloride [Moles/Vol] 105 mmol/L Normal 101-111 [facility] Comment on above: Performed By: #### 2 [id number] #### [facility] [address] [place] [address] CO2 [Moles/Vol] 22 mmol/L Normal 21-[address] [facility] Comment on above: Performed By: #### 2 [id number] #### [facility] [address] [place] [address] Creatinine [Mass/Vol] 1.4 mg/dL High 0.5-1.3 [facility] Comment on above: Performed By: #### 2 [id number] #### [facility] [address] [place] [address] Glucose [Mass/Vol] 139 mg/dL Normal 55-199 [facility] Comment on above: Performed By: #### 2 [id number] #### [facility] [address] [place] [address] Potassium [Moles/Vol] 4.6 mmol/L Normal 3.5-5.3 [facility] Comment on above: Performed By: #### 2 [id number] #### [facility] [address] [place] [address] Sodium [Moles/Vol] 134 mmol/L Low 135-145 [facility] Comment on above: Performed By: #### 2 [id number] #### [facility] [address] [place] [address] Urea nitrogen [Mass/Vol] 37 mg/dL High 5-21 [facility] Comment on above: Performed By: #### 2 [id number] #### [facility] [address] [place] [address] Urea nitrogen/Creatinine [Mass ratio] 26 No Units High 10-20 [facility] Comment on above: Performed By: #### 2 [id number] #### [facility] [address] [place] [address] C. diff by PCRon 09-20-2023 Clostridium difficile by PCR Negative Normal Negative [facility] Comment on above: Order Comment: Order added by Discern Expert. Result Comment: This test result should be correlated with clinical presentations and medical history by a healthcare provider to determine its clinical significance. Performed By: #### 4 [id number] #### [facility] [address] [place] [address] CBC w/ Auto Diffon 4 Basophils/100 WBC (Bld) 0.2 % Normal 0.0-2.0 [facility] Comment on above: Performed By: #### 2 [id number] #### [facility] [address] [place] [address] Basophils/Leukocytes Auto (Bld) [Pure # fraction] 0.0 E9/L Normal 0.0-0.2 [facility] Comment on above: Performed By: #### 2 [id number] #### [facility] [address] [place] [address] Eosinophils (Bld) [#/Vol] 0.2 E9/L Normal 0.0-0.5 [facility] Comment on above: Performed By: #### 2 [id number] #### [facility] [address] [place] [address] Eosinophils/100 WBC (Bld) 1.2 % Normal 0.0-8.0 [facility] Comment on above: Performed By: #### 2 [id number] #### [facility] [address] [place] [address] Erythrocyte distribution width (RBC) [Ratio] 14.5 % High 10.9-14.2 [facility] Comment on above: Performed By: #### 2 [id number] #### [facility] [address] [place] [address] [place] [address] Hematocrit (Bld) [Volume fraction] 34.4 % Low 37.7-49.0 [facility] Comment on above: Performed By: #### 2 [id number] #### [facility] [address] [place] [address] Hemoglobin (Bld) [Mass/Vol] 11.9 g/dL Low 13.5-17.5 [facility] Comment on above: Performed By: #### 2 [id number] #### [facility] [address] [place] [address] Lymphocytes (Bld) [#/Vol] 1.6 E9/L Normal 1.0-4.0 [facility] Comment on above: Performed By: #### 2 [id number] #### [facility] [address] [place] [address] Lymphocytes/100 WBC (Bld) 10.0 % Low 14.0-50.0 [facility] Comment on above: Performed By: #### 2 [id number] #### [facility] [address] [place] [address] MCH (RBC) [Entitic mass] 30.2 pg Normal 27.0-34.0 [facility] Comment on above: Performed By: #### 2 [id number] #### [facility] [address] [place] [address] MCHC (RBC) [Mass/Vol] 34.5 g/dL Normal 31.4-36.0 [facility] Comment on above: Performed By: #### 2 [id number] #### [facility] [address] [place] [address] MCV (RBC) [Entitic vol] 87.8 fL Normal 80.0-100.0 [facility] Comment on above: Performed By: #### 2 [id number] #### [facility] [address] [place] [address] Monocytes (Bld) [#/Vol] 0.9 E9/L Normal 0.2-1.0 [facility] Comment on above: Performed By: #### 2 [id number] #### [facility] [address] [place] [address] Neutrophils (Bld) [#/Vol] 12.9 E9/L High 2.0-7.5 [facility] Comment on above: Performed By: #### 2 [id number] #### [facility] [address] [place] [address] Neutrophils/100 WBC (Bld) 83.0 % High 36.0-75.0 [facility] Comment on above: Performed By: #### 2 [id number] #### [facility] [address] [place] [address] Platelet 161.0 E9/L Normal 150.0-500.0 [facility] Comment on above: Performed By: #### 2 [id number] #### [facility] [address] [place] [address] Platelet mean volume (Bld) [Entitic vol] 9.1 fL Normal 6.4-10.8 [facility] Comment on above: Performed By: #### 2 [id number] #### [facility] [address] [place] [address] RBC (Bld) [#/Vol] 3.9 E12/L Low 4.3-5.9 [facility] Comment on above: Performed By: #### 2 [id number] #### [facility] [address] [place] [address] WBC corrected for nucl RBC Auto (Bld) [#/Vol] 15.6 E9/L High 4.0-11.[address] [facility] Comment on above: Performed By: #### 2 [id number] #### [facility] [address] [place] [address] CHEMISTRYOrdered By: Jane ADDISON User on 09-20-2023 Glucose [Mass/Vol] 121 mg/dL High 55 - 99 mg/dL [facility] Subsection Comment on above: Result Comment: Ty lester RN/ POC Device SN [id number] 1 Invalid Interpretation Code [facility] Subsection POC User ID [id number] 1 Invalid Interpretation Code [facility] Subsection POC Username EDUARDO YOUNG Invalid Interpretation Code [facility] POC Subsection Glucose [Mass/Vol] 152 mg/dL High 55 - 99 mg/dL [facility] Subsection Comment on above: Result Comment: Ty GONZALEZ POC Device SN [id number] 1 Invalid Interpretation Code [facility] POC Subsection POC User ID [id number] 1 Invalid Interpretation Code [facility] Subsection POC Username VLADIMIR FUENTES Invalid Interpretation Code [facility] Subsection CHEMISTRYOrdered By: SYSTEM SYSTEM on [...] 09-08 Glucose [Mass/Vol] 121 mg/dL High 55-99 [facility] Comment on above: Result Comment: Ty GONZALEZ Performed By: #### 2 [id number] #### [facility] [address] [place] [address] Glucose [Mass/Vol] 152 mg/dL High 55-99 [facility] Comment on above: Result Comment: Ty lester RN/ Performed By: #### 2 [id number] #### [facility] [address] [place] [address] Enteric Panel by PCRon 09-19 C. coli+jejuni+upsaliensis DNA ANN+non-probe Ql (Stl) Not detected Normal [facility] Comment on above: Result Comment: Test ing was performed utilizing reverse director consumer affairs (RT), polymerase chain reaction (PCR), and array [...] nulcleic acid test. Performed By: #### 1 [id number] #### [facility] [address] [place] [address] E. coli stx1+stx2 genes ANN+non-probe Ql (Stl) Negative Normal [facility] Comment on above: Performed By: #### 1 [id number] #### [facility] [address] [place] [address] Enteric Panel Intrl QC Pass Normal [facility] Comment on above: Result Comment: Test ing was performed utilizing reverse director consumer affairs (RT), polymerase chain reaction (PCR), and array [...] 1 and 2. Performed By: #### 1 [id number] #### [facility] [address] [place] [address] Norovirus genogroup I+II RNA ANN+non-probe Ql (Stl) Not detected Normal [facility] Comment on above: Performed By: #### 1 [id number] #### [facility] [address] [place] [address] Rotavirus A RNA ANN+non-probe Ql (Stl) Not detected Normal [facility] Comment on above: Performed By: #### 1 [id number] #### [facility] [address] [id number] S. enterica+bongori DNA ANN+non-probe Ql (Stl) Not detected Normal [facility] Comment on above: Result Comment: This test result should be correlated with clinical presentations and medical history by a healthcare provider to determine its clinical significance. Performed By: #### 1 [id number] #### [facility] [address] [place] [address] Shigella species+EIEC invasion plasmid antigen H ipaH gene ANN+non-probe Ql (Stl) Not detected Normal [facility] Comment on above: Performed By: #### 1 [id number] #### [facility] [address] [place] [address] V. cholerae+parahaemolytic us+vulnificus DNA ANN+non-probe Ql (Stl) Not detected Normal [facility] Comment on above: Performed By: #### 1 [id number] #### [facility] [address] [place] [address] Y. enterocolitica DNA ANN+non-probe Ql (Stl) Not detected Normal [facility] Comment on above: Performed By: #### 1 [id number] #### [facility] [address] [place] [address] HEMATOLOGYOrdered By: SYSTEM SYSTEM on 09-20-2023 Basophils/100 [...] Garrison e Manageron 09-20-2023 Interdisciplinary Note - Cello Teacher Interdisciplinary Note - Cello Teacher Patient is awake and alert in bed, previously rounded with Trauma. Pt is feeling better today possible DC home later today or tomorrow. Significant other at bedside and will transport at DC, pt is independent at home, and declines any DC needs. . PCP verified and insurance information reviewed and DME discussed. contact information provided and white board updated. Normal [facility] Comment on above: Result Comment: Elec tronically Signed By: Matt RICHARDSON, Nasreen\.reshma\Date and Time Signed: 09/20/23 09:42 EDT Laboratory - Microbiology an d Antimicrobial susceptibilityOrdered By: Nissa Santo on 09-20-2023 Bacteria identified Cx Nom (U) 200 cfu/ml Mixed skin contaminants [facility] Magnesiumon 09-20-2023 Magnesium [Mass/Vol] 1.9 mg/dL Normal 1.3-2.4 [facility] Comment on above: Performed By: #### 2 [id number] #### [facility] [address] [place] [address] Phosphoruson 09-20-2023 Phosphate [Mass/Vol] 2.9 mg/dL Normal 1.9-4.6 [facility] Comment on above: Performed By: #### 2 [id number] #### [facility] [address] [place] [address] UA with Cult Rflxon 09-20-19 24 Bilirubin Ql (U) Negative Normal Negative [facility] Comment on above: Performed By: #### 4 [id number] #### [facility] [address] [place] [address] Clarity (U) Clear Normal Clear [facility] Comment on above: Performed By: #### 4 [id number] #### [facility] [address] [place] [address] Color (U) Light-Yellow Normal Yellow [facility] Comment on above: Result Comment: Micr oscopic readings are only performed on those samples that meet specific criteria set forth by [facility]. Performed By: #### 4 [id number] #### [facility] [address] [place] [address] Glucose Ql (U) Negative Normal Negative [facility] Comment on above: Performed By: #### 4 [id number] #### [facility] [address] [place] [address] Hemoglobin Auto test strip (U) [Mass/Vol] 1+ mg/dL Abnormal Negative [facility] Comment on above: Performed By: #### 4 [id number] #### [facility] [address] [place] [address] Ketones Auto test strip Ql (U) 1+ mg/dL Abnormal Negative [facility] Comment on above: Performed By: #### 4 [id number] #### [facility] [address] [place] [address] Leukocyte esterase Auto test strip Ql (U) 75 Derick/uL Abnormal Negative [facility] Comment on above: Performed By: #### 4 [id number] #### [facility] [address] [place] [address] Mucus Auto Ql (U) Negative Normal Negative [facility] Comment on above: Performed By: #### 4 [id number] #### [facility] [address] [place] [address] Nitrite Auto test strip Ql (U) Negative Normal Negative [facility] Comment on above: Performed By: #### 4 [id number] #### [facility] [address] [place] [address] pH (U) 6.5 [pH] Invalid Interpretation Code 5.0-9.0 [facility] Comment on above: Performed By: #### 4 [id number] #### [facility] [address] [place] [address] Protein Ql (U) 1+ mg/dL Abnormal Negative [facility] Comment on above: Performed By: #### 4 [id number] #### [facility] [address] [place] [address] RBC Ql (U) 0-3 Normal 0-3 [facility] Comment on above: Performed By: #### 4 [id number] #### [facility] [address] [place] [address] Specific gravity (U) [Rel density] 1.028 Invalid Interpretation Code 1.005-1.030 [facility] Comment on above: Performed By: #### 4 [id number] #### [facility] [address] [place] [address] Urobilinogen (U) [Mass/Vol] Negative Normal Negative [facility] Comment on above: Performed By: #### 4 [id number] #### [facility] [address] [place] [address] WBC Auto (Urine sed) [#/Area] 6-15 Abnormal 0-5 [facility] Comment on above: Performed By: #### 4 [id number] #### [facility] [address] [place] [address] URINALYSISOrdered By: SYSTEM SYSTEM on 09-20-2023 Bilirubin Ql (U) Negative Normal Negativemg/ d L [facility] UA Auto SS Clarity (U) Clear (09/20/23 10:01 AM) Normal Clear [facility] UA Auto SS Color (U) Light-Yellow 1 (09/20/23 10:01 AM) Normal Yellow [facility] UA Auto SS Comment on above: Interpretive Data: M icroscopic readings are only performed on those samples that meet specific criteria set forth by [facility]. Glucose Ql (U) Negative Normal Negativemg/d [...] Urobilinogen (U) [Mass/Vol] Negative Normal Negativemg/d L [facility] UA Auto SS WBC Auto (Urine sed) [#/Area] 6-15 graded/HPF Invalid Interpretation Code 0-5graded/HP F [facility] UA Auto SS URINALYSISOrdered By: Mainor bello on 09-20-2023 UA Spec Desc Clean Catch (09/20/23 10:01 AM) Normal [facility] UA Auto SS Work Phone: eGFRon 09-20-2023 eGFR 55 mL/min/1.73 m2 Low >=59 [facility] Comment on above: Order Comment: Order added by Discern Expert. Performed By: #### 1 [id number] #### [facility] [address] [place] [address] ABO/Rhon 09-19-2023 ABO/Rh Positive Invalid Interpretation Code [facility] Comment on above: Performed By: #### 2 [id number] #### [facility] [address] [place] [address] ABO/Rh History Checkon 09-18 ABO/Rh History Check Verified Hx Blood Type Normal [facility] Comment on above: Performed By: #### 1 [id number] #### [facility] [address] [place] [address] ABSCon 09-19-2023 ABSC Gel Interp Negative Normal [facility] Comment on above: Performed By: #### 1 [id number] #### [facility] [address] [place] [address] BLOOD BANKOrdered By: Rosemary Kiser on 09-19-2023 ABO/Rh Interp Positive Invalid Interpretation Code [facility] BB Subsection ABSC Gel Interp Negative (09/19/23 1:05 AM) Normal [facility] BB Subsection BMPon 09-19-2023 Anion gap [Moles/Vol] 12 mmol/L Normal 6-16 [facility] Comment on above: Performed By: #### 2 [id number] #### [facility] [address] [place] [address] Calcium [Mass/Vol] 8.8 mg/dL Low 8.9-11.1 [facility] Comment on above: Performed By: #### 2 [id number] #### [facility] [address] [place] [address] Chloride [Moles/Vol] 104 mmol/L Normal 101-111 [facility] Comment on above: Performed By: #### 2 [id number] #### [facility] [address] [place] [address] CO2 [Moles/Vol] 22 mmol/L Normal 21-[address] [facility] Comment on above: Performed By: #### 2 [id number] #### [facility] [address] [place] [address] Creatinine [Mass/Vol] 1.8 mg/dL High 0.5-1.3 [facility] Comment on above: Performed By: #### 2 [id number] #### [facility] [address] [place] [facility] [place] [address] Glucose [Mass/Vol] 159 mg/dL Normal 55-199 [facility] Comment on above: Performed By: #### 2 [id number] #### [facility] [address] [place] [address] Potassium [Moles/Vol] 4.9 mmol/L Normal 3.5-5.3 [facility] Comment on above: Performed By: #### 2 [id number] #### [facility] [address] [place] [address] Sodium [Moles/Vol] 133 mmol/L Low 135-145 [facility] Comment on above: Performed By: #### 2 [id number] #### [facility] [address] [place] [address] Urea nitrogen [Mass/Vol] 47 mg/dL High 5-21 [facility] Comment on above: Performed By: #### 2 [id number] #### [facility] [address] [place] [address] Urea nitrogen/Creatinine [Mass ratio] 26 No Units High 10-20 [facility] Comment on above: Performed By: #### 2 [id number] #### [facility] [address] [place] [address] Anion gap [Moles/Vol] 16 mmol/L Normal 6-16 [facility] Comment on above: Performed By: #### 2 [id number] #### [facility] [address] [place] [address] Calcium [Mass/Vol] 9.3 mg/dL Normal 8.9-11.1 [facility] Comment on above: Performed By: #### 2 [id number] #### [facility] [address] [place] [address] Chloride [Moles/Vol] 98 mmol/L Low 101-111 [facility] Comment on above: Performed By: #### 2 [id number] #### [facility] [address] [place] [address] CO2 [Moles/Vol] 20 mmol/L Low 21-[address] [facility] Comment on above: Performed By: #### 2 [id number] #### [facility] [address] [place] [address] Creatinine [Mass/Vol] 2.1 mg/dL High 0.5-1.3 [facility] Comment on above: Performed By: #### 2 [id number] #### [facility] [address] [place] [address] Glucose [Mass/Vol] 292 mg/dL High 55-199 [facility] Comment on above: Performed By: #### 2 [id number] #### [facility] [address] [place] [address] Potassium [Moles/Vol] 5.4 mmol/L High 3.5-5.3 [facility] Comment on above: Performed By: #### 2 [id number] #### [facility] [address] [place] [address] Sodium [Moles/Vol] 129 mmol/L Low 135-145 [facility] Comment on above: Performed By: #### 2 [id number] #### [facility] [address] [place] [address] Urea nitrogen [Mass/Vol] 53 mg/dL High 5-21 [facility] Comment on above: Performed By: #### 2 [id number] #### [facility] [address] [place] [address] Urea nitrogen/Creatinine [Mass ratio] 25 No Units High 10-20 [facility] Comment on above: Performed By: #### 2 [id number] #### [facility] [address] [place] [address] Blood Bank ID#on 09-19-2023 BBID# [id number] Invalid Interpretation Code [facility] Comment on above: Performed By: #### 1 [id number] #### [facility] [address] [place] [address] CBC w/ Auto Diffon 4 Basophils/100 WBC (Bld) 0.3 % Normal 0.0-2.0 [facility] Comment on above: Performed By: #### 2 [id number] #### [facility] [address] [place] [address] Basophils/Leukocytes Auto (Bld) [Pure # fraction] 0.0 E9/L Normal 0.0-0.2 [facility] Comment on above: Performed By: #### 2 [id number] #### [facility] [address] [place] [address] Eosinophils (Bld) [#/Vol] 0.1 E9/L Normal 0.0-0.5 [facility] Comment on above: Performed By: #### 2 [id number] #### [facility] [address] [place] [address] Eosinophils/100 WBC (Bld) 0.6 % Normal 0.0-8.0 [facility] Comment on above: Performed By: #### 2 [id number] #### [facility] [address] [place] [address] Erythrocyte distribution width (RBC) [Ratio] 14.5 % High 10.9-14.2 [facility] Comment on above: Performed By: #### 2 [id number] #### [facility] [address] [place] [address] Hematocrit (Bld) [Volume fraction] 35.0 % Low 37.7-49.0 [facility] Comment on above: Performed By: #### 2 [id number] #### [facility] [address] [place] [address] Hemoglobin (Bld) [Mass/Vol] 11.7 g/dL Low 13.5-17.5 [facility] Comment on above: Performed By: #### 2 [id number] #### [facility] [address] [place] [address] Lymphocytes (Bld) [#/Vol] 1.8 E9/L Normal 1.0-4.0 [facility] Comment on above: Performed By: #### 2 [id number] #### [facility] [address] [place] [address] Lymphocytes/100 WBC (Bld) 11.2 % Low 14.0-50.0 [facility] Comment on above: Performed By: #### 2 [id number] #### [facility] [address] [place] [address] MCH (RBC) [Entitic mass] 29.4 pg Normal 27.0-34.0 [facility] Comment on above: Performed By: #### 2 [id number] #### [facility] [address] [place] [address] MCHC (RBC) [Mass/Vol] 33.3 g/dL Normal 31.4-36.0 [facility] Comment on above: Performed By: #### 2 [id number] #### [facility] [address] [place] [address] MCV (RBC) [Entitic vol] 88.1 fL Normal 80.0-100.0 [facility] Comment on above: Performed By: #### 2 [id number] #### [facility] [address] [place] [address] Monocytes (Bld) [#/Vol] 0.9 E9/L Normal 0.2-1.0 [facility] Comment on above: Performed By: #### 2 [id number] #### [facility] [address] [place] [address] Neutrophils (Bld) [#/Vol] 13.2 E9/L High 2.0-7.5 [facility] Comment on above: Performed By: #### 2 [id number] #### [facility] [address] [place] [address] Neutrophils/100 WBC (Bld) 82.1 % High 36.0-75.0 [facility] Comment on above: Performed By: #### 2 [id number] #### [facility] [address] [place] [address] Platelet mean volume (Bld) [Entitic vol] 9.4 fL Normal 6.4-10.8 [facility] Comment on above: Performed By: #### 2 [id number] #### [facility] [address] [place] [address] Platelets (Bld) [#/Vol] 161.0 E9/L Normal 150.0-500.0 [facility] Comment on above: Performed By: #### 2 [id number] #### [facility] [address] [place] [address] RBC (Bld) [#/Vol] 4.0 E12/L Low 4.3-5.9 [facility] Comment on above: Performed By: #### 2 [id number] #### [facility] [address] [place] [address] WBC corrected for nucl RBC Auto (Bld) [#/Vol] 16.1 E9/L High 4.0-11.[address] [facility] Comment on above: Performed By: #### 2 [id number] #### [facility] [address] [place] [address] Band form neutrophils/100 WBC (Bld) 12 % High 0-6 [facility] Comment on above: Performed By: #### 2 [id number] #### [facility] [address] [place] [address] Basophils (Bld) [#/Vol] 0.0 E9/L Normal 0.0-0.2 [facility] Comment on above: Performed By: #### 2 [id number] #### [facility] [address] [place] [address] Eosinophils (Bld) [#/Vol] 0.0 E9/L Normal 0.0-0.5 [facility] Comment on above: Performed By: #### 2 [id number] #### [facility] [address] [place] [address] Eosinophils/100 WBC (Bld) 0.0 % Normal 0.0-8.0 [facility] Comment on above: Performed By: #### 2 [id number] #### [facility] [address] [place] [address] Erythrocyte distribution width (RBC) [Ratio] 14.7 % High 10.9-14.2 [facility] Comment on above: Performed By: #### 2 [id number] #### [facility] [address] [place] [address] Hematocrit (Bld) [Volume fraction] 39.4 % Normal 37.7-49.0 [facility] Comment on above: Performed By: #### 2 [id number] #### [facility] [address] [place] [address] Hemoglobin (Bld) [Mass/Vol] 13.2 g/dL Low 13.5-17.5 [facility] Comment on above: Performed By: #### 2 545461 #### [facility] [address] [place] [address] Lymphocytes (Bld) [#/Vol] 0.6 E9/L Low 1.0-4.0 [facility] Comment on above: Performed By: #### 2 [id number] #### [facility] [address] [place] [address] Lymphocytes/100 WBC (Bld) 3.0 % Low 14.0-50.0 [facility] Comment on above: Performed By: #### 2 [id number] #### [facility] [address] [place] [address] MCH (RBC) [Entitic mass] 29.6 pg Normal 27.0-34.0 [facility] Comment on above: Performed By: #### 2 [id number] #### [facility] [address] [place] [address] MCHC (RBC) [Mass/Vol] 33.4 g/dL Normal 31.4-36.0 [facility] Comment on above: Performed By: #### 2 [id number] #### [facility] [address] [place] [address] MCV (RBC) [Entitic vol] 88.7 fL Normal 80.0-100.0 [facility] Comment on above: Performed By: #### 2 [id number] #### [facility] [address] [place] [address] Monocytes (Bld) [#/Vol] 0.8 E9/L Normal 0.2-1.0 [facility] Comment on above: Performed By: #### 2 [id number] #### [facility] [address] [place] [address] Neutrophils (Bld) [#/Vol] 18.5 E9/L Invalid Interpretation Code [facility] Comment on above: Performed By: #### 2 [id number] #### [facility] [address] [place] [address] Platelet mean volume (Bld) [Entitic vol] 9.6 fL Normal 6.4-10.8 [facility] Comment on above: Performed By: #### 2 686277 #### [facility] [address] [place] [address] Platelets (Bld) [#/Vol] 189.0 E9/L Normal 150.0-500.0 [facility] Comment on above: Performed By: #### 2 155168 #### [facility] [address] [place] [address] RBC (Bld) [#/Vol] 4.4 E12/L Normal 4.3-5.9 [facility] Comment on above: Performed By: #### 2 [id number] #### [facility] [address] [place] [address] RBC size Nom (Bld) NORMAL Invalid Interpretation Code [facility] Comment on above: Performed By: #### 2 [id number] #### [facility] [address] [place] [address] Segmented neutrophils/100 WBC (Bld) 81.0 % High 36.0-75.0 [facility] Comment on above: Performed By: #### 2 609887 #### [facility] [address] [place] [address] WBC corrected for nucl RBC Auto (Bld) [#/Vol] 19.9 E9/L High 4.0-11.[address] [facility] Comment on above: Performed By: #### 2 [id number] #### [facility] [address] [place] [address] CDiff PCRon 09-19-2023 C. difficile toxin A+B Ql (Stl) No, PCR to follow Normal [facility] Comment on above: Performed By: #### 3 [id number] #### [facility] [address] [place] [address] CHEMISTRYOrdered By: SYSTEM SYSTEM on 09-19-2023 Anion [...] ml's: 100 Rectal Contrast Given? No Normal [facility] Capillary Glucose POCon 09-08 Glucose [Mass/Vol] 133 mg/dL High 55-99 [facility] Comment on above: Result Comment: Ty lester RN/ Performed By: #### 2 [id number] #### [facility] [address] [place] [address] ED Clinical Summaryon 2023 ED Clinical Summary ED Clinical Summary [address] [address] ED Clinical Summary Person Information Name: ALTAGRACIA CONWAY [place] Age: 68 Years : 1955 Sex: Male Language: Finnish PCP: TIKI DOCKERY DO Marital Status: Visit Id: Visit Reason: GI bleeding; Abdominal pain; Vomiting; Nausea; blood in stool Speciality: Acuity: 2 Enc Type: Inpatient Med Service: Emergency Arrival: 09/19/2023 00:29:49 Discharge: LOS: 000 06:52 Checkin: 09/19/2023 00:29:49 Checkout: 09/19/2023 07:21:07 [facility]po [facility]: [facility] EVENTS: Event Name Event Status Request [...] Patient Care Request 09/19/2023 06:12:45 ADDRESS: [address] [id number] PHYS DOC NOTES: MEDICAL INFORMATION: Prescriptions Given: [...] INFORMATION: Instructions: Follow up: DIAGNOSIS: Proctocolitis Normal [facility] ED Note-Physicianon 09-19-19 ED Note-Physician ED Note-Physician [...] and Complexity of Problems Differential Diagnosis: [] [facility] Data External documents reviewed: N/A My EKG [...] IV on (more content not included)... Normal [facility] Comment on above: Result Comment: Elec tronically Signed By: Mainor Hamilton DO\.br\Date and Time Signed: 09/19/23 06:12 EDT ED Patient Education Noteon 09-19-2023 ED Patient Education Note ED Patient Education Note Normal [facility] ED Patient Summaryon ED Patient Summary ED Patient Summary [place] [id number] Patient Discharge Instructions Person Information Name: ALTAGRACIA CONWAY Age: 68 Years Arrival Date: 09/19/2023 00:29:49 Discharge Diagnosis: Proctocolitis Primary Care Physician: TIKI DOCKERY DO Provider Information Primary Provider: Mainor Hamilton DO Advanced Public Works Inspector:None The exam and treatment you received in the Emergency Department were for an urgent problem and are not intended as complete care. It is important that you follow up with a doctor, nurse practitioner, or physician?s sales assistant displays for ongoing care. If your symptoms become [...] opioids can be used to help relieve jczdmwif-nl-uhiljo pain and are often prescribed following a [...] be struggling with addiction, tell your health intensive care unit registered nurse and ask for guidance or call [employer]?S National Helpline at 6-652-319-HELP. v Source: [place] Department of Health and Human Services/Center for Disease Control & Prevention [facility] Medications Given: Medication Dose Ro (more content not included)... Normal [facility] HEMATOLOGYOrdered By: SYSTEM SYSTEM on 09-19-2023 Basophils/100 [...] 09-19-2023 Albumin [Mass/Vol] 4.2 g/dL Normal 3.3-5.0 [facility] Comment on above: Performed By: #### 2 [id number] #### [facility] [address] [place] [address] Albumin/Globulin (S) [Mass conc ratio] 1.3 Normal 1.1-2.2 [facility] Comment on above: Performed By: #### 2 [id number] #### [facility] [address] [place] [address] ALP [Catalytic activity/Vol] 142 Int._Unit/L High 21-98 [facility] Comment on above: Performed By: #### 2 [id number] #### [facility] [address] [place] [address] ALT No additional P-5'-P [Catalytic activity/Vol] 20 Int._Unit/L Normal 6-46 [facility] Comment on above: Performed By: #### 2 [id number] #### [facility] [address] [place] [address] AST [Catalytic activity/Vol] 22 Int._Unit/L Normal 5-43 [facility] Comment on above: Performed By: #### 2 [id number] #### [facility] [address] [place] [address] Bilirubin [Mass/Vol] 0.5 mg/dL Normal 0.0-1.1 [facility] Comment on above: Performed By: #### 2 [id number] #### [facility] [address] [place] [address] Bilirubin.direct [Mass/Vol] 0.1 mg/dL Normal 0.0-0.4 [facility] Comment on above: Performed By: #### 2 [id number] #### [facility] [address] [place] [address] Bilirubin.indirect [Mass or moles/Vol] 0.4 mg/dL Normal 0.1-0.9 [facility] Comment on above: Performed By: #### 2 [id number] #### [facility] [address] [place] [address] Globulin (S) [Mass/Vol] 3.3 g/dL Normal 1.4-4.0 [facility] Comment on above: Performed By: #### 2 [id number] #### [facility] [address] [place] [address] Protein [Mass/Vol] 7.5 g/dL Normal 6.0-7.8 [facility] Comment on above: Performed By: #### 2 [id number] #### [facility] [address] [place] [address] Lactic Acidon 09-19-2023 Lactic Acid Lvl 0.8 mmol/L Normal 0.5-2.[address] [facility] Comment on above: Performed By: #### 2 [id number] #### [facility] [address] [place] [address] Lipase Levelon 09-19-2023 Lipase [Catalytic activity/Vol] 7 U/L Low 13-58 [facility] Comment on above: Performed By: #### 2 [id number] #### [facility] [address] [place] [address] UA with Cult Rflxon 09-19-19 Type of Urine collection method Clean Catch Normal [facility] Comment on above: Performed By: #### 4 [id number] #### [facility] [address] [place] [address] eGFRon 09-19-2023 eGFR 40 mL/min/1.73 m2 Low >=59 [facility] Comment on above: Order Comment: Order added by Discern Expert. Performed By: #### 1 [id number] #### [facility] [address] [place] [address] eGFR 34 mL/min/1.73 m2 Low >=59 [facility] Comment on above: Order Comment: Order added by Discern Expert. Performed By: #### 1 [id number] #### [facility] [address] [place] [address] ECG 12 lead ECGon 09-18-2023 ECG 12 lead ECG [facility] Main [address] [address] Electrocardiograph Report Signed Patient: Altagracia Conway MR#: [id number] 021 : 1955 Acct:[id number] Age/Sex: 68 / M ADM Date: 09/18/23 Loc: ER Room: Type: [facility] ER Attending Dr: Ordering [...] By Clarence Gonzales DO 0329 Normal [facility] CBC w/ Auto Diffon 4 Basophils/100 WBC (Bld) 0.8 % Normal 0.0-2.0 [facility] Comment on above: Performed By: #### 2 [id number] #### [facility] [address] [place] [address] Basophils/Leukocytes Auto (Bld) [Pure # fraction] 0.1 E9/L Normal 0.0-0.2 [facility] Comment on above: Performed By: #### 2 [id number] #### [facility] [address] [place] [address] Eosinophils (Bld) [#/Vol] 0.8 E9/L High 0.0-0.5 [facility] Comment on above: Performed By: #### 2 [id number] #### [facility] [address] [place] [address] Eosinophils/100 WBC (Bld) 9.0 % High 0.0-8.0 [facility] Comment on above: Performed By: #### 2 [id number] #### [facility] [address] [place] [address] Erythrocyte distribution width (RBC) [Ratio] 15.2 % High 10.9-14.2 [facility] Comment on above: Performed By: #### 2 [id number] #### [facility] [address] [place] [address] Hematocrit (Bld) [Volume fraction] 35.0 % Low 37.7-49.0 [facility] Comment on above: Performed By: #### 2 [id number] #### [facility] [address] [place] [address] Hemoglobin (Bld) [Mass/Vol] 11.8 g/dL Low 13.5-17.5 [facility] Comment on above: Performed By: #### 2 [id number] #### [facility] [address] [place] [address] Lymphocytes (Bld) [#/Vol] 2.6 E9/L Normal 1.0-4.0 [facility] Comment on above: Performed By: #### 2 [id number] #### [facility] [address] [place] [address] Lymphocytes/100 WBC (Bld) 30.7 % Normal 14.0-50.0 [facility] Comment on above: Performed By: #### 2 [id number] #### [facility] [address] [place] [address] MCH (RBC) [Entitic mass] 30.0 pg Normal 27.0-34.0 [facility] Comment on above: Performed By: #### 2 [id number] #### [facility] [address] [place] [address] MCHC (RBC) [Mass/Vol] 33.6 g/dL Normal 31.4-36.0 [facility] Comment on above: Performed By: #### 2 [id number] #### [facility] [address] [place] [address] MCV (RBC) [Entitic vol] 89.3 fL Normal 80.0-100.0 [facility] Comment on above: Performed By: #### 2 [id number] #### [facility] [address] [place] [address] Monocytes (Bld) [#/Vol] 0.7 E9/L Normal 0.2-1.0 [facility] Comment on above: Performed By: #### 2 [id number] #### [facility] [address] [place] [address] Neutrophils (Bld) [#/Vol] 4.5 E9/L Normal 2.0-7.5 [facility] Comment on above: Performed By: #### 2 [id number] #### [facility] [address] [place] [address] Neutrophils/100 WBC (Bld) 51.9 % Normal 36.0-75.0 [facility] Comment on above: Performed By: #### 2 [id number] #### [facility] [address] [place] [address] Platelet mean volume (Bld) [Entitic vol] 9.9 fL Normal 6.4-10.8 [facility] Comment on above: Performed By: #### 2 [id number] #### [facility] [address] [place] [address] Platelets (Bld) [#/Vol] 172.0 E9/L Normal 150.0-500.0 [facility] Comment on above: Performed By: #### 2 [id number] #### [facility] [address] [place] [address] RBC (Bld) [#/Vol] 3.9 E12/L Low 4.3-5.9 [facility] Comment on above: Performed By: #### 2 [id number] #### [facility] [address] [place] [address] WBC corrected for nucl RBC Auto (Bld) [#/Vol] 8.6 E9/L Normal 4.0-11.[address] [facility] Comment on above: Performed By: #### 2 [id number] #### [facility] [address] [place] [address] CHEMISTRYOrdered By: SYSTEM SYSTEM on 09-10-2023 Albumin [...] for this result was chemiluminescence using [employer] Access Hybritech PSA reagent. Protein [Mass/Vol] 7.1 [...] 09-10-2023 Albumin [Mass/Vol] 4.3 g/dL Normal 3.3-5.0 [facility] Comment on above: Performed By: #### 2 [id number] #### [facility] [address] [place] [address] Albumin/Globulin (S) [Mass conc ratio] 1.5 Normal 1.1-2.2 [facility] Comment on above: Performed By: #### 2 [id number] #### [facility] [address] [place] [address] ALP [Catalytic activity/Vol] 161 Int._Unit/L High 21-98 [facility] Comment on above: Performed By: #### 2 [id number] #### [facility] [address] [place] [address] ALT No additional P-5'-P [Catalytic activity/Vol] 20 Int._Unit/L Normal 6-46 [facility] Comment on above: Performed By: #### 2 [id number] #### [facility] [address] [place] [address] Anion gap [Moles/Vol] 13 mmol/L Normal 6-16 [facility] Comment on above: Performed By: #### 2 [id number] #### [facility] [address] [place] [address] AST [Catalytic activity/Vol] 19 Int._Unit/L Normal 5-43 [facility] Comment on above: Performed By: #### 2 [id number] #### [facility] [address] [place] [address] Bilirubin [Mass/Vol] 0.3 mg/dL Normal 0.0-1.1 [facility] Comment on above: Performed By: #### 2 755986 #### [facility] [address] [place] [address] Calcium [Mass/Vol] 9.5 mg/dL Normal 8.9-11.1 [facility] Comment on above: Performed By: #### 2 [id number] #### [facility] [address] [place] [address] Chloride [Moles/Vol] 105 mmol/L Normal 101-111 [facility] Comment on above: Performed By: #### 2 [id number] #### [facility] [address] [place] [address] CO2 [Moles/Vol] 25 mmol/L Normal 21-[address] [facility] Comment on above: Performed By: #### 2 [id number] #### [facility] [address] [place] [address] Creatinine [Mass/Vol] 2.0 mg/dL High 0.5-1.3 [facility] Comment on above: Performed By: #### 2 [id number] #### [facility] [address] [place] [address] Globulin (S) [Mass/Vol] 2.8 g/dL Normal 1.4-4.0 [facility] Comment on above: Performed By: #### 2 [id number] #### [facility] [address] [place] [address] Glucose [Mass/Vol] 95 mg/dL Normal 55-199 [facility] Comment on above: Performed By: #### 2 [id number] #### [facility] [address] [place] [address] Potassium [Moles/Vol] 5.6 mmol/L High 3.5-5.3 [facility] Comment on above: Performed By: #### 2 753068 #### [facility] [address] [place] [address] Protein [Mass/Vol] 7.1 g/dL Normal 6.0-7.8 [facility] Comment on above: Performed By: #### 2 926256 #### [facility] [address] [place] [address] Sodium [Moles/Vol] 137 mmol/L Normal 135-145 [facility] Comment on above: Performed By: #### 2 [id number] #### [facility] [address] [place] [address] Urea nitrogen [Mass/Vol] 54 mg/dL High 5-21 [facility] Comment on above: Performed By: #### 2 [id number] #### [facility] [address] [place] [address] Urea nitrogen/Creatinine [Mass ratio] 27 No Units High 10-20 [facility] Comment on above: Performed By: #### 2 [id number] #### [facility] [address] [place] [address] HEMATOLOGYOrdered By: SYSTEM SYSTEM on 09-10-2023 Basophils/100 [...] 09-10-2023 Cholesterol [Mass/Vol] 118 mg/dL Low 120-200 [facility] Comment on above: Performed By: #### 2 [id number] #### [facility] [address] [place] [address] Cholesterol in HDL [Mass/Vol] 29 mg/dL Invalid Interpretation Code [facility] Comment on above: Result Comment: '>= 60 LOW RISK' '<= 40 HIGH RISK' Performed By: #### 2 [id number] #### [facility] [address] [place] [address] Cholesterol in LDL [Mass/Vol] 71 mg/dL Normal <=129 [facility] Comment on above: Performed By: #### 2 [id number] #### [facility] [address] [place] [address] Cholesterol in VLDL [Mass/Vol] 38 mg/dL Normal 7-40 [facility] Comment on above: Performed By: #### 2 [id number] #### [facility] [address] [place] [address] Triglyceride [Mass/Vol] 191 mg/dL High <=149 [facility] Comment on above: Performed By: #### 2 [id number] #### [facility] [address] [place] [address] PSA Screen, Totalon 09-10-19 24 Prostate specific Ag [Mass/Vol] 3.6 ng/mL High 0.1-3.5 [facility] Comment on above: Result Comment: The concentration of PSA determined by different manufacturers can vary due to differences in assay methods and reagent specificity. Values obtained from different assay methods cannot be used interchangeably. The methodology used for this result was chemiluminescence using [employer]'s Access Hybritech PSA reagent. Performed By: #### 1 [id number] #### [facility] [address] [place] [address] U MA/Cr Ratioon 09-10-2023 Albumin DL <= 20 mg/L (U) [Mass/Vol] 1.2 mg/dL Normal 0.0-1.9 [facility] Comment on above: Performed By: #### 1 [id number] #### [facility] [address] [place] [address] Albumin/Creatinine DL <= 20 mg/L (U) [Mass ratio] 12.0 mg/gm Cr Normal .0-30.0 [facility] Comment on above: Result Comment: 30-3 00 mg/g Cr indicates an increased risk for diabetic nephropathy. >300 mg/g Cr is consistent with clinical nephropathy. Performed By: #### 1 [id number] #### [facility] [address] [place] [address] U Creatinine 99.6 mg/dL Invalid Interpretation Code [facility] Comment on above: Performed By: #### 1 [id number] #### [facility] [address] [place] [address] eGFRon 09-10-2023 eGFR 36 mL/min/1.73 m2 Low >=59 [facility] Comment on above: Order Comment: Order added by Discern Expert. Performed By: #### 1 [id number] #### [facility] [address] [place] [id number] Alanine aminotransferase [En zymatic activity/volume] in Serum or PlasmaOrdered By: Daysi Bullimore on 08-19-2023 ALT [Catalytic activity/Vol] 24 U/L Normal 7-52 [facility] Comment on above: Performed By: #### A MY, CMP, LIPASE #### [facility] [address] [place] [address] [place] Albumin [Mass/volume] in Ser um or Plasma by Bromocresol green (BCG) dye binding methoOrdered By: Daysi Bullimore on 08-19-2023 Albumin BCG dye [Mass/Vol] 4.4 g/dL 3.5-5.7 [facility] Alkaline phosphatase [Enzyma tic activity/volume] in Serum or PlasmaOrdered By: Daysi Bullimore on 08-19-2023 ALP [Catalytic activity/Vol] 206 U/L High 34-104 [facility] Comment on above: Performed By: #### A MY, CMP, LIPASE #### [facility] [address] [place] [id number] [place] Amylase [Enzymatic activity/ volume] in Serum or PlasmaOrdered By: Daysi Bullimore on 08-19-2023 Amylase [Catalytic activity/Vol] 13 U/L Low 29-103 [facility] Comment on above: Performed By: #### A MY, CMP, LIPASE #### [address] Aspartate aminotransferase [ Enzymatic activity/volume] in Serum or PlasmaOrdered By: Daysi Bullimore on 08-19-2023 AST [Catalytic activity/Vol] 24 U/L Normal 13-39 [facility] Comment on above: Performed By: #### A MY, CMP, LIPASE #### [address] Automated basophil %Ordered By: Daysi Bullimore on 08-19-2023 Basophils/100 WBC (Bld) 0.8 % Normal . [facility] Comment on above: Performed By: #### C BC #### [address] Automated basophil countOrde red By: Daysi Bullimore on 08-19-2023 Basophils (Bld) [#/Vol] 0.1 10*3/uL Normal 0.0-0.2 [facility] Comment on above: Result Comment: PERF ORMED BY: [place] [address] PATHOLOGIST ROLLER NORBERTO PITTS M.D. Performed By: #### C BC #### [address] Automated blood monocyte cou ntOrdered By: Daysi Bullimore on 08-19-2023 Monocytes (Bld) [#/Vol] 0.4 10*3/uL Normal 0.0-0.8 [facility] Comment on above: Performed By: #### C BC #### [address] Automated eosinophil %Ordere d By: Daysi Bullimore on 08-19-2023 Eosinophils/100 WBC (Bld) 2.8 % Normal . [facility] Comment on above: Performed By: #### C BC #### [address] Automated eosinophil countOr dered By: Daysi Khanaranza on 08-19-2023 Eosinophils (Bld) [#/Vol] 0.2 10*3/uL Normal 0.0-0.45 [facility] Comment on above: Performed By: #### C BC #### [address] Automated monocyte %Ordered By: Daysi Billimore on 08-19-2023 Monocytes/100 WBC (Bld) 5.3 % Normal . [facility] Comment on above: Performed By: #### C BC #### [address] Automated neutrophil %Ordere d By: Daysi Billimore on 08-19-2023 Neutrophils/100 WBC (Bld) 76.0 % Normal . [facility] Comment on above: Performed By: #### C BC #### [address] Bacteria [Presence] in Urine by AutomatedOrdered By: Daysi Garcia on 08-19-2023 Bacteria Auto Ql (U) None seen [HPF] None Seen [facility] Bilirubin Test strip Ql (U)O rdered By: Daysi Griffinore on 08-19-2023 Bilirubin Ql (U) Negative Negative [facility] Bilirubin.total [Mass/volume ] in Serum or PlasmaOrdered By: Daysi Garcia on 08-19-2023 Bilirubin [Mass/Vol] 0.5 mg/dL Normal 0.3-1.0 [facility] Comment on above: Performed By: #### A MY, CMP, LIPASE #### [facility] [address] [place] [address] COVID CepheidOrdered By: Ciarra Garcia on 08-19-2023 SARS-CoV-2 (COVID-19) Ab IA Ql Negative Negative [facility] Comment on above: This is a duplicate Cepheid Xpert Xpress CoV-2/Flu/RSV Plus RNA by RT-PCR result to be used for statistical tracking purpose only. SARS-CoV-2 (COVID-19) RNA ANN+probe Ql (Unsp spec) [facility] COVID-19 / Flu A/B / RSV [...] or Cepheid Disclaimer revoked sooner. PERFORMED BY: [place] [address] PATHOLOGIST ROLLER NORBERTO PITTS M.D. Normal [facility] Comment on above: Performed By: #### C EPHEID NEG, COVID19 FLU RSV #### [address] Calcium [Mass/volume] in Ser um or PlasmaOrdered By: Daysi Bullimore on 08-19-2023 Calcium [Mass/Vol] 9.8 mg/dL Normal 8.6-10.3 [facility] Comment on above: Performed By: #### A MY, CMP, LIPASE #### [address] Carbon dioxide, total [Moles /volume] in Serum or PlasmaOrdered By: Daysi Bullimore on 08-19-2023 CO2 [Moles/Vol] 21.3 mmol/L Normal 21.0-31.0 [facility] Comment on above: Performed By: #### A MY, CMP, LIPASE #### [address] Cepheid COVID PCR Negativeon 08-19-2023 SARS-CoV-2 (COVID-19) RNA ANN+probe Ql (Unsp spec) Negative Normal Negative [facility] Comment on above: Result Comment: This is a duplicate Cepheid Xpert Xpress CoV-2/Flu/RSV Plus RNA by RT-PCR result to be used for statistical tracking purpose only. PERFORMED BY: [place] [address] PATHOLOGIST ROLLER NORBERTO PITTS M.D. Performed By: #### C EPHEID NEG, COVID19 FLU RSV #### [place] [id number] [place] Chloride [Moles/volume] in S iqra or PlasmaOrdered By: Daysi Bullimore on 08-19-2023 Chloride [Moles/Vol] 103 mmol/L Normal 98-107 [facility] Comment on above: Performed By: #### A MY, CMP, LIPASE #### [address] Color of Urine by AutoOrdere d By: Daysi Garcia on 08-19-2023 Color (U) Yellow Normal Yellow [facility] Comment on above: Order Comment: Name Collection Type:: Clean-Voided Midstream Performed By: #### B UN, CREAT #### [address] Complete Blood Count Auto Di ffon 08-19-2023 Mean Corpuscular HGB Conc 33.9 g/dL Normal 32.5-35.6 [facility] Comment on above: Performed By: #### C BC #### [address] Monocytes/100 WBC (Bld) 17.35 % Normal 0.00-20.00 [facility] Comment on above: Performed By: #### C BC #### [address] NRBC% 0.0 /100{WBC} Normal 0-0.5 [facility] Comment on above: Performed By: #### C BC #### [address] Comprehensive Metabolic Pane elaine 08-19-2023 Albumin [Mass/Vol] 4.4 g/dL Normal 3.5-5.7 [facility] Comment on above: Performed By: #### A MY, CMP, LIPASE #### [address] Creatinine Clr Calc Pharmacy 57.88 Normal [facility] Comment on above: Performed By: #### A MY, CMP, LIPASE #### [address] GFR/1.73 sq M.predicted MDRD (S/P/Bld) [Vol rate/Area] 53.257 mL/min/{1.73_m2} Normal [facility] Comment on above: Performed By: #### A MY, CMP, LIPASE #### [address] Creatinine [Mass/volume] in Serum or PlasmaOrdered By: Daysi Garcia on 08-19-2023 Creatinine [Mass/Vol] 1.44 mg/dL High 0.70-1.30 [facility] Comment on above: Performed By: #### A MY, CMP, LIPASE #### [address] Dipstick and Microscopicon 0 08-19-2023 Bacteria,Urine None Seen Normal None Seen [facility] Comment on above: Order Comment: Name Collection Type:: Clean-Voided Midstream Performed By: #### B UN, CREAT #### [address] Bilirubin,Urine Negative Normal Negative [facility] Comment on above: Order Comment: Name Collection Type:: Clean-Voided Midstream Performed By: #### B UN, CREAT #### [address] Glucose Ql (U) 500 mg/dL High Normal [facility] Comment on above: Order Comment: Name Collection Type:: Clean-Voided Midstream Performed By: #### B UN, CREAT #### [address] Hyaline Casts,Urine 0-8 Normal 0-8 [facility] Comment on above: Order Comment: Name Collection Type:: Clean-Voided Midstream Performed By: #### B UN, CREAT #### [place] [address] [place] Mucus,Urine Rare Normal [facility] Comment on above: Order Comment: Name Collection Type:: Clean-Voided Midstream Result Comment: PERF ORMED BY: [place] [address] PATHOLOGIST ROLLER NORBERTO PITTS M.D. Performed By: #### B UN, CREAT #### [place] [address] [place] Nitrite,Urine Negative Normal Negative [facility] Comment on above: Order Comment: Name Collection Type:: Clean-Voided Midstream Performed By: #### B UN, CREAT #### [place] [address] [place] Occult Blood,Urine Negative Normal Negative [facility] Comment on above: Order Comment: Name Collection Type:: Clean-Voided Midstream Result Comment: PERF ORMED BY: [place] [address] PATHOLOGIST ROLLER NORBERTO PITTS M.D. Performed By: #### B UN, CREAT #### [address] Protein,Urine Trace High Negative [facility] Comment on above: Order Comment: Name Collection Type:: Clean-Voided Midstream Performed By: #### B UN, CREAT #### [address] RBC,Urine 3-4 Normal 0-4 [facility] Comment on above: Order Comment: Name Collection Type:: Clean-Voided Midstream Performed By: #### B UN, CREAT #### [address] Specificy [place],Urine 1.021 Normal 1.001-1.030 [facility] Comment on above: Order Comment: Name Collection Type:: Clean-Voided Midstream Performed By: #### B UN, CREAT #### [place] [address] [place] Urobilinogen,Urine Normal Normal Normal [facility] Comment on above: Order Comment: Name Collection Type:: Clean-Voided Midstream Performed By: #### B UN, CREAT #### [place] [address] [place] WBC,Urine 20-49 High 0-4 [facility] Comment on above: Order Comment: Name Collection Type:: Clean-Voided Midstream Performed By: #### B UN, CREAT #### [address] ECG 12 lead ECGon 06-10-2024 ECG 12 lead ECG [facility] Main [address] [place] [address] Electrocardiograph Report Signed Patient: Altagracia Conway MR#: [id number] 021 : 1955 Acct:[id number] Age/Sex: 67 / M ADM Date: 08/19/23 Loc: ER Room: Type: [facility] ER Attending Dr: Ordering [...] sinus rhythm Confirmed by Tayo Moreno DO ([id number]) on 08/19/2023 2:24:28 PM Referred By: Electronically Signed By:Tayo Moreno DO Transcribed By: MUS Signed By Tayo Moreno DO 1424 Normal [facility] Epithelial cells.squamous [# /area] in Urine sediment by Automated countOrdered By: Daysi Garcia on 08-19-2023 Epithelial cells.squamous Auto (Urine sed) [#/Area] N/A [facility] Erythrocyte distribution wid th [Ratio] by Automated countOrdered By: Daysi Garcia on 08-19-2023 Erythrocyte distribution width (RBC) [Ratio] 16.0 % High 12.0-14.8 [facility] Comment on above: Performed By: #### C BC #### [facility] [address] [place] [address] [place] Erythrocytes [#/area] in Uri ne sediment by Automated countOrdered By: Daysi Garcia on 08-19-2023 RBC Auto (Urine sed) [#/Area] 3-4 [HPF] 0-4 [facility] Erythrocytes [#/volume] in B lood by Automated countOrdered By: Daysi Garcia on 08-19-2023 RBC (Bld) [#/Vol] 4.36 10*6/uL Normal 3.90-5.60 [facility] Comment on above: Performed By: #### C BC #### [address] Glucose [Mass/volume] in Ser um or PlasmaOrdered By: Daysi Radha on 08-19-2023 Glucose [Mass/Vol] 331 mg/dL High 70-100 [facility] Comment on above: ADA recommended refe rence rangeRandom Glucose Reference Range is dependent on time and content of last meal. Glucose of more than 200 mg/dL in a nonstressed, ambulatory subject supports the diagnosis of Diabetes Mellitus. Result Comment: [place] om Glucose Reference Range is dependent on time and content of last meal. Glucose of more than 200 mg/dL in a nonstressed, ambulatory subject supports the diagnosis of Diabetes Mellitus. ADA recommended reference range Performed By: #### A MY, CMP, LIPASE #### [address] Glucose [Mass/volume] in Uri ne by Test stripOrdered By: Daysi Radha on 08-19-2023 Glucose Test strip (U) [Mass/Vol] 500 mg/dL High Normal [facility] Hematocrit [Volume Fraction] of Blood by Automated countOrdered By: Daysi Radha on 08-19-2023 Hematocrit (Bld) [Volume fraction] 37.8 % Low 38.8-50.0 [facility] Comment on above: Performed By: #### C BC #### [address] Hemoglobin Test strip Ql (U) Ordered By: Daysi Radha on 08-19-2023 Hemoglobin Ql (U) Negative Negative [facility] Hemoglobin [Mass/volume] in BloodOrdered By: Daysi Bullimore on 08-19-2023 Hemoglobin (Bld) [Mass/Vol] 12.8 g/dL Low 13.0-17.0 [facility] Comment on above: Performed By: #### C BC #### [facility] [address] [place] [address] [place] Hyaline casts [#/area] in Ur ine sediment by Automated countOrdered By: Daysi Khanimore on 08-19-2023 Hyaline casts Auto (Urine sed) [#/Area] 0-8 [LPF] 0-8 [facility] Ketones [Presence] in Urine by Test stripOrdered By: Daysi Garcia on 08-19-2023 Ketones Ql (U) 1+ High Negative [facility] Comment on above: Order Comment: Name Collection Type:: Clean-Voided Midstream Performed By: #### B UN, CREAT #### [facility] [address] [place] [address] [place] Leukocyte esterase [Presence ] in Urine by Test stripOrdered By: Daysi Garcia on 08-19-2023 Leukocyte esterase Test strip Ql (U) 4+ High Negative [facility] Comment on above: Order Comment: Name Collection Type:: Clean-Voided Midstream Performed By: #### B UN, CREAT #### [facility] [address] [place] [address] [place] Leukocytes [#/area] in Urine sediment by Automated countOrdered By: Daysi Garcia on 08-19-2023 WBC Auto (Urine sed) [#/Area] 20-49 [HPF] High 0-4 [facility] Leukocytes [#/volume] correc lamont for nucleated erythrocytes in Blood by Automated counOrdered By: Daysi Garcia on 08-19-2023 WBC corrected for nucl RBC Auto (Bld) [#/Vol] 7.8 10*3/uL 4.1-10.5 [facility] Leukocytes [#/volume] in Blo od by Automated countOrdered By: Daysi Garcia on 08-19-2023 WBC (Bld) [#/Vol] 7.8 10*3/uL Normal 4.1-10.5 [facility] Comment on above: Performed By: #### C BC #### [facility] [address] [place] [address] [place] Lipase [Enzymatic activity/v olume] in Serum or PlasmaOrdered By: Daysi Garcia on 08-19-2023 Lipase [Catalytic activity/Vol] 19.0 U/L Normal 11.0-82.0 [facility] Comment on above: Result Comment: PERF ORMED BY: [place] [address] PATHOLOGIST ROLLER NORBERTO PITTS M.D. Performed By: #### A MY, CMP, LIPASE #### [address] Lymphocytes [#/volume] in Bl ood by Automated countOrdered By: Daysi Bullimore on 08-19-2023 Lymphocytes (Bld) [#/Vol] 1.2 10*3/uL Normal 1.00-4.8 [facility] Comment on above: Performed By: #### C BC #### [address] Lymphocytes/100 leukocytes i n Blood by Automated countOrdered By: Daysi Bullimore on 08-19-2023 Lymphocytes/100 WBC (Bld) 15.1 % Normal . [facility] Comment on above: Performed By: #### C BC #### [address] MCH [Entitic mass] by Automa lamont countOrdered By: Daysi Bullimore on 08-19-2023 MCH (RBC) [Entitic mass] 29.4 pg Normal 27.5-35.2 [facility] Comment on above: Performed By: #### C BC #### [address] MCHC Auto (RBC) [Mass/Vol]Or dered By: Daysi Bullimore on 08-19-2023 MCHC (RBC) [Mass/Vol] 33.9 g/dL 32.5-35.6 [facility] MCV [Entitic volume] by Auto mated countOrdered By: Daysi Bullimore on 08-19-2023 MCV (RBC) [Entitic vol] 86.7 fL Normal 83.5-101 [facility] Comment on above: Performed By: #### C BC #### [address] Monocyte distribution width [Entitic volume] in Blood by AutomatedOrdered By: Daysi Khanimore on 08-19-2023 Monocyte distribution width Auto (Bld) [Entitic vol] 17.35 % 0.00-20.00 [facility] Mucus [Presence] in Urine by AutomatedOrdered By: Daysi Khanimore on 08-19-2023 Mucus Auto Ql (U) Rare [LPF] [facility] Neutrophils [#/volume] in Bl ood by Automated countOrdered By: Daysi Khanimore on 08-19-2023 Neutrophils (Bld) [#/Vol] 5.9 10*3/uL Normal 1.8-7.7 [facility] Comment on above: Performed By: #### C BC #### [facility] [address] Nitrite Test strip Ql (U)Ord ered By: Daysi Garcia on 08-19-2023 Nitrite Ql (U) Negative Negative [facility] No Panel InformationOrdered By: Daysi Garcia on 08-19-2023 Estimated GFR (CKD-EPI) 53.257 mL/Min [facility] Creatinine Clearance (Chem 57.88 [facility] Nucleated erythrocytes [Pres ence] in Blood by Automated countOrdered By: Daysi Garcia on 08-19-2023 Nucleated RBC Auto Ql (Bld) 0.0 /100{WBC} 0-0.5 [facility] Platelet mean volume [Entiti c volume] in Blood by Automated countOrdered By: Daysi Garcia on 08-19-2023 Platelet mean volume (Bld) [Entitic vol] 9.3 fL Normal 6.6-10.1 [facility] Comment on above: Performed By: #### C BC #### [facility] [address] [place] [address] [place] Platelets [#/volume] in Bloo d by Automated countOrdered By: Daysi Garcia on 08-19-2023 Platelets (Bld) [#/Vol] 191 10*3/uL Normal 150-450 [facility] Comment on above: Performed By: #### C BC #### [address] Potassium [Moles/volume] in Serum or PlasmaOrdered By: Daysi Bullimore on 08-19-2023 Potassium [Moles/Vol] 5.2 mmol/L High 3.5-5.1 [facility] Comment on above: Performed By: #### A MY, CMP, LIPASE #### [address] Protein Test strip (U) [Mass /Vol]Ordered By: Daysi Bullimore on 08-19-2023 Protein (U) [Mass/Vol] Trace mg/dL High Negative [facility] Protein [Mass/volume] in Ser um or PlasmaOrdered By: Daysi Bullimore on 08-19-2023 Protein [Mass/Vol] 7.9 g/dL Normal 6.4-8.9 [facility] Comment on above: Performed By: #### A MY, CMP, LIPASE #### [address] Quick Strepon 08-19-2023 Quick Strep Streptococcus pyogen es Ag [Presence] in Throat by Rapid immunoassay Negative for Group A Strep Antigen Note 1 NOTE 2 Results are those of a screening test. NOTE 3 If clinically indicated please order a culture. NOTE 4 NOTE 5 Reference range = Negative PERFORMED BY: [place] [address] PATHOLOGIST ROLLER NORBERTO PITTS M.D. Normal [facility] Comment on above: Performed By: #### Q S #### [address] Serum globulin measurement b y calculation (mass/volume)Ordered By: Daysi Bullimore on 08-19-2023 Globulin (S) [Mass/Vol] 3.5 g/dL Normal [facility] Comment on above: Performed By: #### A MY, CMP, LIPASE #### [address] Serum or plasma albumin/glob ulin mass ratioOrdered By: Daysi Bullimore on 08-19-2023 Albumin/Globulin [Mass ratio] 1.3 {ratio} Normal [facility] Comment on above: Performed By: #### A MY, CMP, LIPASE #### [address] Serum or plasma anion gap de terminationOrdered By: Daysi Bullimore on 08-19-2023 Anion gap [Moles/Vol] 14.9 mmol/L Normal 6.0-15.0 [facility] Comment on above: Performed By: #### A MY, CMP, LIPASE #### [address] Sodium [Moles/volume] in Ser um or PlasmaOrdered By: Daysi Bullimore on 08-19-2023 Sodium [Moles/Vol] 134 mmol/L Low 136-145 [facility] Comment on above: Performed By: #### A MY, CMP, LIPASE #### [address] Specific gravity Test strip (U) [Rel density]Ordered By: Daysi Bullimore on 08-19-2023 Specific gravity (U) [Rel density] 1.021 1.001-1.030 [facility] Streptococcus pyogenes antig en detectionOrdered By: Daysi Bullimore on 08-19-2023 S. pyogenes Ag Ql (Unsp spec) [facility] Urea nitrogen [Mass/volume] in Serum or PlasmaOrdered By: Daysi Bullimore on 08-19-2023 Urea nitrogen [Mass/Vol] 35 mg/dL High 7-25 [facility] Comment on above: Performed By: #### A MY, CMP, LIPASE #### [address] Urine Cultureon 08-19-2023 Bacteria identified Cx Nom (U) <9,000 colonies/ml mixed bacterial skin contaminants 2 Days PERFORMED BY: [place] [address] PATHOLOGIST ROLLER NORBERTO PITTS M.D. Normal [facility] Comment on above: Performed By: #### B UN, CREAT #### [address] Urine appearanceOrdered By: Daysi Garcia on 08-19-2023 Appearance (U) Clear Normal Clear [facility] Comment on above: Order Comment: Name Collection Type:: Clean-Voided Midstream Performed By: #### B UN, CREAT #### [address] Urine culture routineOrdered By: Daysi Garcia on 08-19-2023 Bacteria identified Cx Nom (U) 2 Days [facility] Urobilinogen Test strip (U) [Mass/Vol]Ordered By: Daysi Garcia on 08-19-2023 Urobilinogen (U) [Mass/Vol] Normal mg/dL Normal [facility] XR chest 2V*on 08-19-2023 XR chest 2V* [facility] [address] [place] [address] XRay Report Signed Patient: Altagracia Conway MR#: [id number] 021 : 1955 Acct:[id number] Age/Sex: 67 / M ADM Date: 08/19/23 Loc: ER Room: Type: [facility] ER Attending Dr: Copies to: KELSEY Adler Ordering Provider: KELSEY Adler Date of Service: 08/19/23 XR/XR chest 2V*: Nausea/Vomiting/Diarrhe a PA AND LATERAL CHEST: CLINICAL HISTORY: Cough, shortness of breath, chest congestion, nausea, vomiting and diarrhea. COMPARISON: 05/02/2023 A right-sided Myizbe-u-Qfck catheter is again visualized. A dorsal stimulator [...] Dee Cuevas M.D.08/19/2023 10:53 AM Dictation Location: [place] [address] Transcribed By: ROSI 08/19/23 1053 Dictated By: Dee Cuevas MD 08/19/23 1051 Signed By: 08/19/23 1053 Normal [facility] pH of Urine by Test stripOrd ered By: Daysi Garcia on 08-19-2023 pH (U) 5.5 [pH] Normal 5.0-9.0 [facility] Comment on above: Order Comment: Name Collection Type:: Clean-Voided Midstream Performed By: #### B UN, CREAT #### [address] US extremity nonvascularon 0 08-15-2023 US extremity nonvascular [facility] [address] [place] [address] Ultrasound Report Signed Patient: Altagracia Conway MR#: [id number] : 1955 Acct:[id number] Age/Sex: 67 / M ADM Date: 08/15/23 Loc: Room: Type: [facility] Attending Dr: Margaret Delgado MD Ordering Provider: [...] Nasim Duckworth M.D.08/15/2023 12:45 PM Dictation [facility] Tech: Nasreen Pastor Transcribed By: ROSI 08/15/23 1245 Dictated By: Nasim Duckworth DO 08/15/23 1244 Signed By: 08/15/23 1245 Normal [facility] PTH Intacton 06-20-2023 Parathyrin.intact [Mass/Vol] 46 pg/mL Invalid Interpretation Code 15-65 [facility] Comment on above: Result Comment: Perf ormed at: [facility] [address] [id number] PhD Miriam Sam Performed By: #### 1 [id number] ####[facility] [address] [place] [address] Automated leukocytes count i n urine sediment (number/area)on 06-19-2023 WBC Auto (Urine sed) [#/Area] 0-3 [id number] 0-3 [facility] Automated urine specific gra vity by refractometryon 06-19-2023 Specific gravity Refractometry automated (U) [Rel density] 1.011 1.005-1.030 [facility] Bilirubin Auto test strip (U ) [Mass/Vol]on 06-19-2023 Bilirubin (U) [Mass/Vol] Negative Negative [facility] CBC w/Indiceson 06-19-2023 Erythrocyte distribution width (RBC) [Ratio] 16.9 % High 10.9-14.2 [facility] Comment on above: Performed By: #### 2 [id number] #### [facility] [address] [place] [address] Hematocrit (Bld) [Volume fraction] 33.6 % Low 37.7-49.0 [facility] Comment on above: Performed By: #### 2 [id number] #### [facility] [address] [place] [address] Hemoglobin (Bld) [Mass/Vol] 10.9 g/dL Low 13.5-17.5 [facility] Comment on above: Performed By: #### 2 [id number] #### [facility] [address] [place] [address] MCH (RBC) [Entitic mass] 27.8 pg Normal 27.0-34.0 [facility] Comment on above: Performed By: #### 2 [id number] #### [facility] [address] [place] [address] MCHC (RBC) [Mass/Vol] 32.5 g/dL Normal 31.4-36.0 [facility] Comment on above: Performed By: #### 2 [id number] #### [facility] [address] [place] [address] MCV (RBC) [Entitic vol] 85.4 fL Normal 80.0-100.0 [facility] Comment on above: Performed By: #### 2 [id number] #### [facility] [address] [place] [address] Platelet mean volume (Bld) [Entitic vol] 9.4 fL Normal 6.4-10.8 [facility] Comment on above: Performed By: #### 2 [id number] #### [facility] [address] [place] [address] Platelets (Bld) [#/Vol] 194.0 E9/L Normal 150.0-500.0 [facility] Comment on above: Performed By: #### 2 [id number] #### [facility] [address] [place] [address] RBC (Bld) [#/Vol] 3.9 E12/L Low 4.3-5.9 [facility] Comment on above: Performed By: #### 2 [id number] #### [facility] [address] [place] [address] RBC size Nom (Bld) NORMAL Invalid Interpretation Code [facility] Comment on above: Performed By: #### 2 [id number] #### [facility] [address] [place] [address] WBC corrected for nucl RBC Auto (Bld) [#/Vol] 7.5 E9/L Normal 4.0-11.[address] [facility] Comment on above: Performed By: #### 2 [id number] #### [facility] [address] [place] [address] CHEMISTRYOrdered By: SYSTEM SYSTEM on 06-19-2023 25-hydroxyvitamin D3 [Mass/Vol] 27.7 ng/mL Low 30.0 - 100.0 ng/mL [facility] Chem eGFR 47 mL/min/1.73 m2 Low >=59mL/min /1 .73 m2 [facility] Chem Phosphate [Mass/Vol] 3.5 mg/dL Normal 1.9 - 4 .6 mg/dL [facility] Urate (U) [Mass/Vol] 5.1 mg/dL Normal 2.2 - 7 .4 mg/dL [facility] Urea nitrogen/Creatinine [Mass ratio] 30 mg/mg High 10 - 20 [facility] Chem U Creatinine 43.5 mg/dL Invalid Interpretation Code Remisol Chem Ur Total Protein mg/dL Invalid Interpretation Code Remisol Chem Color Auto (U)on 06-19-2023 Color (U) Light-Yellow Yellow [facility] Consent for Treatmenton 06-09 Consent for Treatment [id number] IFF Normal [facility] Erythrocyte distribution wid th [Ratio] by [...] (S/P/Bld) [Vol rate/Area] 47 mL/min/1.73 m2 >=59 [facility] HEMATOLOGYOrdered By: SYSTEM SYSTEM on 06-19-2023 [...] [Mass/Vol]on 06-19-2023 Ketones (U) [Mass/Vol] Negative Negative [facility] - Chemistry and C hemistry [...] 06-19-2023 Specimen type Nom (Spec) Clean Catch [facility] Leukocytes [#/volume] correc lamont for nucleated [...] [Mass/Vol] 1.7 mg/dL Normal 1.3-2.4 [facility] Comment on above: Performed By: #### 1 [id number] #### [facility] [address] [place] [address] Mucus LM Ql (Urine sed)on Mucus Ql (Urine sed) Negative Negative [facility] No Panel Informationon 06-18 25-Hydroxy Vitamin D Total 27.7 ng/mL 30.0-100.0 [facility] BUN/Creatinine Ratio 30 No Units 10-20 [facility] Parathyroid Hormone (Intact) 46 pg/mL 15-65 [facility] Phosphorus Level 3.5 mg/dL 1.9-4.6 [facility] RBC Size NORMAL [facility] Urine Citric Acid 5.1 mg/dL 2.2-7.4 [facility] Urine Random Creatinine 43.5 mg/dL [facility] Urine Random Total Protein <6.0 mg/dL [facility] Physician Orderon 06-19-2023 Physician Order [id number] TIFF Normal [facility] Platelet mean volume [Entiti c volume] in Blood by Automated countOrdered By: SYSTEM SYSTEM on 06-19-2023 Platelet mean volume (Bld) [Entitic vol] 9.4 fL 6.4-10.8 [facility] Platelets [#/volume] in Bloo d by Automated countOrdered By: SYSTEM SYSTEM on 06-19-2023 Platelets (Bld) [#/Vol] 194.0 E9/L 150.0-500.0 [facility] Protein Auto test strip (U) [Mass/Vol]on 04-10-2024 Protein (U) [Mass/Vol] Negative Negative [facility] Renal Panelon 06-19-2023 Albumin [Mass/Vol] 4.2 g/dL Normal 3.3-5.0 [facility] Comment on above: Performed By: #### 1 [id number] #### [facility] [address] [place] [address] Anion gap [Moles/Vol] 12 mmol/L Normal 6-16 [facility] Comment on above: Performed By: #### 1 [id number] #### [facility] [address] [place] [address] Calcium [Mass/Vol] 9.6 mg/dL Normal 8.9-11.1 [facility] Comment on above: Performed By: #### 1 [id number] #### [facility] [address] [place] [address] Chloride [Moles/Vol] 102 mmol/L Normal 101-111 [facility] Comment on above: Performed By: #### 1 [id number] #### [facility] [address] [place] [address] CO2 [Moles/Vol] 27 mmol/L Normal 21-[address] [facility] Comment on above: Performed By: #### 1 [id number] #### [facility] [address] [place] [address] Creatinine [Mass/Vol] 1.6 mg/dL High 0.5-1.3 [facility] Comment on above: Performed By: #### 1 [id number] #### [facility] [address] [place] [address] Glucose [Mass/Vol] 223 mg/dL High 55-199 [facility] Comment on above: Performed By: #### 1 [id number] #### [facility] [address] [place] [address] Phosphate [Mass/Vol] 3.5 mg/dL Normal 1.9-4.6 [facility] Comment on above: Performed By: #### 1 [id number] #### [facility] [address] [place] [address] Potassium [Moles/Vol] 5.6 mmol/L High 3.5-5.3 [facility] Comment on above: Performed By: #### 1 [id number] #### [facility] [address] [place] [address] Sodium [Moles/Vol] 135 mmol/L Normal 135-145 [facility] Comment on above: Performed By: #### 1 [id number] #### [facility] [address] [place] [address] Urea nitrogen [Mass/Vol] 48 mg/dL High 5-21 [facility] Comment on above: Performed By: #### 1 [id number] #### [facility] [address] [place] [address] Urea nitrogen/Creatinine [Mass ratio] 30 No Units High 10-20 [facility] Comment on above: Performed By: #### 1 [id number] #### [facility] [address] [place] [address] Serum or plasma anion gap de terminationOrdered By: SYSTEM SYSTEM on 06-19-2023 Anion gap [Moles/Vol] 12 mmol/L 6-16 Rem isol Chem Specific gravity Auto test s trip (U) [Rel density]on 06-19-2023 Specific gravity (U) [Rel density] Clear [facility] U Protein/Creat Ratioon 06-09 Protein/Creatinine (U) [Ratio] 12.90 mg/gm Cr Normal .00-200.00 [facility] Comment on above: Performed By: #### 1 [id number] #### [facility] [address] [place] [address] U Creatinine 43.5 mg/dL Invalid Interpretation Code [facility] Comment on above: Performed By: #### 1 [id number] #### [facility] [address] [place] [address] Ur Total Protein <6.0 Invalid Interpretation Code [facility] Comment on above: Performed By: #### 1 [id number] #### [facility] [address] [place] [address] URINALYSISOrdered By: SYSTEM SYSTEM on 06-19-2023 Color (U) Light-Yellow 1 (06/19/23 10:16 AM) Normal Yellow [facility] UA Auto SS Comment on above: Interpretive Data: M icroscopic readings are only performed on those samples that meet specific criteria set forth by [facility]. Glucose (U) [Mass/Vol] Negative Normal Negat ivemg/d L [facility] UA Auto SS Ketones Ql (U) Negative Normal Negativemg/d L [facility] UA Auto SS UA Blood Negative Normal Negativemg/d L [facility] UA Auto SS UA Clarity Clear (06/19/23 [...] Urate (U) [Mass/Vol] 5.1 mg/dL Normal 2.2-7.4 [facility] Comment on above: Performed By: #### 1 [id number] #### [facility] [address] [place] [address] Urinalysis with Microon 06-09 Color (U) Light-Yellow Normal Yellow [facility] Comment on above: Result Comment: Micr oscopic readings are only performed on those samples that meet specific criteria set forth by [facility]. Performed By: #### 1 [id number] #### [facility] [address] [place] [address] Glucose (U) [Mass/Vol] Negative Normal Negative [facility] Comment on above: Performed By: #### 1 [id number] #### [facility] [address] [place] [address] Ketones Ql (U) Negative Normal Negative [facility] Comment on above: Performed By: #### 1 [id number] #### [facility] [address] [place] [address] UA Blood Negative Normal Negative [facility] Comment on above: Performed By: #### 1 [id number] #### [facility] [address] [place] [address] UA Clarity Clear Normal Clear [facility] Comment on above: Performed By: #### 1 [id number] #### [facility] [address] [place] [address] UA Leuk Est 250 Derick/uL Abnormal Negative [facility] Comment on above: Performed By: #### 1 [id number] #### [facility] [address] [place] [address] UA Mucous Negative Normal Negative [facility] Comment on above: Performed By: #### 1 [id number] #### [facility] [address] [place] [address] UA Nitrite Negative Normal Negative [facility] Comment on above: Performed By: #### 1 [id number] #### [facility] [address] [place] [address] UA pH 5.0 Invalid Interpretation Code 5.0-9.0 [facility] Comment on above: Performed By: #### 1 [id number] #### [facility] [address] [place] [address] UA Protein Negative Normal Negative [facility] Comment on above: Performed By: #### 1 [id number] #### [facility] [address] [place] [address] UA RBC 0-3 Normal 0-3 [facility] Comment on above: Performed By: #### 1 [id number] #### [facility] [address] [place] [address] UA Spec Grav 1.011 Invalid Interpretation Code 1.005-1.030 [facility] Comment on above: Performed By: #### 1 [id number] #### [facility] [address] [place] [address] UA Urobilinogen Negative Normal Negative [facility] Comment on above: Performed By: #### 1 [id number] #### [facility] [address] [place] [address] UA WBC 16-25 Abnormal 0-5 [facility] Comment on above: Performed By: #### 1 [id number] #### [facility] [address] [place] [address] Urobilinogen (U) [Mass/Vol] Negative Normal Negative [facility] Comment on above: Performed By: #### 1 [id number] #### [facility] [address] [place] [address] UA Spec Desc Clean Catch Normal [facility] Comment on above: Performed By: #### 1 [id number] #### [facility] [address] [place] [address] Urine glucose measurement by test strip (mass/volume)on 06-19-2023 Glucose Test strip (U) [Mass/Vol] Negative Negative [facility] Urine hemoglobin detection b y automated test stripon 06-19-2023 Hemoglobin Auto test strip Ql (U) Negative Negative [facility] Urine nitrite detection by a utomated test stripon 06-19-2023 Nitrite Auto test strip Ql (U) 250 Derick/uL [id number] Negative [facility] Nitrite Auto test strip Ql (U) Negative Negative [facility] Urine protein/creatinine rat ioOrdered By: SYSTEM SYSTEM on 06-19-2023 Protein/Creatinine (U) [Ratio] 12.90 mg/gm Cr .00-200.00 [facility] Urine sediment leukocyte cou nt by microscopy (number/high power field)on 06-19-2023 WBC LM.HPF (Urine sed) [#/Area] 16-25 [id number] 0-5 [facility] Urine urobilinogen measureme nt by automated test strip (mass/volume)Ordered By: SYSTEM SYSTEM on 06-19-2023 Urobilinogen (U) [Mass/Vol] Negative Negative [facility] UA Auto SS Vitamin D 25 Hydroxyon 06-18 25-hydroxyvitamin D3 [Mass/Vol] 27.7 ng/mL Low 30.0-100.0 [facility] Comment on above: Performed By: #### 1 [id number] #### [facility] [address] [place] [address] eGFRon 06-19-2023 eGFR 47 mL/min/1.73 m2 Low >=59 [facility] Comment on above: Order Comment: Order added by Discern Expert. Performed By: #### 1 [id number] #### [facility] [address] [place] [address] pH Auto test strip (U)on pH (U) 5.0 [pH] 5.0-9.0 [facility] US extremity nonvascularon 0 05-24-2023 US extremity nonvascular [facility] [place] [address] Ultrasound Report Signed Patient: Altagracia Conway MR#: [id number] 021 : 1955 Acct:[id number] Age/Sex: 67 / M ADM Date: 05/24/23 Loc: Room: Type: [facility] RCR Attending Dr: Margaret Delgado MD Ordering Provider: [...] resolution. Impression dictated by: Rey Dove Jr., Hamida05/24/2023 4:10 PM Dictation Location: [place] [address] Tech: Lida Tony Transcribed By: ROSI 05/24/23 1610 Dictated By: Rey Dove Jr, DO 05/24/23 1558 Signed By: 05/24/23 1610 Normal [facility] Tae 05-22-2023 SUZYN Telephone (PAMAVN) ALTAGRACIA CONWAY ([id number]) 1955 [facility] Date Time Provider Department 05/22/23 ELBA HENRY During your visit today, we recorded the following information about you: Elba Henry PA-C 05/22/2023 3:[address] Jordan Ortega reviewed, he recommends [facility] for other treatment options including possible ketamine infusions. Please advise Altagracia Conway of the above recommendations. 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 [[id number]] 01/22/2002 Unspecified Senile Cataract [H25.9] 11/02/2009 Type [...] Status:Closed by ELBA HENRY on 05/22/23 Normal [facility] Alanine aminotransferase [En zymatic activity/volume] in Serum or PlasmaOrdered By: Dylan Vazquez on 05-16-2023 ALT [Catalytic activity/Vol] 77 U/L [facility] 7 [facility] ALT [Catalytic activity/Vol] Alanine aminotransferase [Enzymatic activity/volume] in Serum or Plasma High [facility] Albumin [Mass/volume] in Ser um or PlasmaOrdered By: Dylan Vazquez on 05-16-2023 Albumin [Mass/Vol] 3.8 g/dL 2.9-4.4 [facility] Albumin [Mass/volume] in Ser um or Plasma by Bromocresol green (BCG) dye binding methoOrdered By: Dylan Vazquez on 05-16-2023 Albumin BCG dye [Mass/Vol] 4.2 g/dL 3.5-5.7 [facility] Albumin BCG dye [Mass/Vol] Albumin [Mass/volume] in Serum or Plasma by Bromocresol green (BCG) dye binding metho 3.5-5.7 [facility] Alkaline phosphatase [Enzyma tic activity/volume] in Serum or PlasmaOrdered By: Dylan Vazquez on 05-16-2023 ALP [Catalytic activity/Vol] 311 U/L High 34-104 [facility] ALP [Catalytic activity/Vol] Alkaline phosphatase [Enzymatic activity/volume] in Serum or Plasma High 34-104 [facility] Aspartate aminotransferase [ Enzymatic activity/volume] in Serum or PlasmaOrdered By: Dylan Vazquez on 05-16-2023 AST [Catalytic activity/Vol] 102 U/L High 13-39 [facility] AST [Catalytic activity/Vol] Aspartate aminotransferase [Enzymatic activity/volume] in Serum or Plasma High 13-39 [facility] Basophils Auto (Bld) [#/Vol] Ordered By: Dylan Vazquez on 05-16-2023 Basophils (Bld) [#/Vol] 0.1 10*3/uL 0.0-0.2 [facility] Basophils (Bld) [#/Vol] Automated basoph il count 0.0-0.2 [facility] Basophils/100 WBC Auto (Bld) Ordered By: Dylan Vazquez on 05-16-2023 Basophils/100 WBC (Bld) 1.2 % . [facility] Basophils/100 WBC (Bld) Automated basophil % . [facility] Bilirubin.total [Mass/volume ] in Serum or PlasmaOrdered By: Dylan Vazquez on 05-16-2023 Bilirubin [Mass/Vol] 0.3 mg/dL 0.3-1.0 [facility] Bilirubin [Mass/Vol] Bilirubin.total [Mass/volume] in Serum or Plasma 0.3-1.0 [facility] Calcium [Mass/volume] in Ser um or PlasmaOrdered By: Dylan Vazquez on 05-16-2023 Calcium [Mass/Vol] 9.3 mg/dL 8.6-10.3 [facility] Calcium [Mass/Vol] Calcium [Mass/volume ] in Serum or Plasma 8.6-10.3 [facility] Carbon dioxide, total [Moles /volume] in Serum or PlasmaOrdered By: Dylan Vazquez on 05-16-2023 CO2 [Moles/Vol] 24.6 mmol/L 21.0-31.0 [facility] CO2 [Moles/Vol] Carbon dioxide, tota l [Moles/volume] in Serum or Plasma 21.0-31.0 [facility] Chloride [Moles/volume] in S iqra or PlasmaOrdered By: Dylan Vazquez on 05-16-2023 Chloride [Moles/Vol] 103 mmol/L 98-107 [facility] Chloride [Moles/Vol] Chloride [Moles/vol ume] in Serum or Plasma 98-107 [facility] Creatinine [Mass/volume] in Serum or PlasmaOrdered By: Dylan Vazquez on 05-16-2023 Creatinine [Mass/Vol] 1.60 mg/dL High 0.70-1.30 [facility] Eosinophils Auto (Bld) [#/Vo l]Ordered By: Dylan Vazquez on 05-16-2023 Eosinophils (Bld) [#/Vol] 0.6 10*3/uL High 0.0-0.45 [facility] Eosinophils (Bld) [#/Vol] Automated eosinophil count High 0.0-0.45 [facility] Eosinophils/100 WBC Auto (Bl d)Ordered By: Dylan Vazquez on 05-16-2023 Eosinophils/100 WBC (Bld) 8.0 % . [facility] Eosinophils/100 WBC (Bld) Automated eosinophil % . [facility] Erythrocyte distribution wid th Auto (RBC) [Ratio]Ordered By: Dylan Vazquez on 05-16-2023 Erythrocyte distribution width (RBC) [Ratio] 14.9 % High 12.0-14.8 [facility] Erythrocyte distribution width (RBC) [Ratio] Erythrocyte distribution width [Ratio] by Automated count High 12.0-14.8 [facility] Ferritin [Mass/volume] in Se rum or PlasmaOrdered By: Dylan Vazquez on 05-16-2023 Ferritin [Mass/Vol] 110.5 ng/mL 23.9-336.2 [facility] Ferritin [Mass/Vol] Ferritin [Mass/volum e] in Serum or Plasma 23.9-336.2 [facility] Globulin Calc (S) [Mass/Vol] Ordered By: Dylan Vazquez on 05-16-2023 Globulin (S) [Mass/Vol] Serum globulin measurement by calculation (mass/volume) [facility] Glucose [Mass/volume] in Ser um or PlasmaOrdered By: Dylan Vazquez on 05-16-2023 Glucose [Mass/Vol] 235 mg/dL High 70-100 [facility] Comment on above: ADA recommended refe rence rangeRandom Glucose Reference Range is dependent on time and content of last meal. Glucose of more than 200 mg/dL in a nonstressed, ambulatory subject supports the diagnosis of Diabetes Mellitus. Glucose [Mass/Vol] Glucose [Mass/volume ] in Serum or Plasma High 70-100 [facility] Comment on above: ADA recommended refe rence rangeRandom Glucose Reference Range is dependent on time and content of last meal. Glucose of more than 200 mg/dL in a nonstressed, ambulatory subject supports the diagnosis of Diabetes Mellitus. Hematocrit Auto (Bld) [Volum e fraction]Ordered By: Dylan Vazquez on 05-16-2023 Hematocrit (Bld) [Volume fraction] 35.5 % Low 38.8-50.0 [facility] Hematocrit (Bld) [Volume fraction] Hematocrit [Volume Fraction] of Blood by Automated count Low 38.8-50.0 [facility] Hemoglobin [Mass/volume] in BloodOrdered By: Dylan Vazquez on 05-16-2023 Hemoglobin (Bld) [Mass/Vol] 11.7 g/dL Low 13.0-17.0 [facility] Hemoglobin (Bld) [Mass/Vol] Hemoglobin [Mass/volume] in Blood Low 13.0-17.0 [facility] IgA [Mass/volume] in Serum o r PlasmaOrdered By: Dylan Vazquez on 05-16-2023 IgA [Mass/Vol] 302 mg/dL 61-437 [facility] IgG [Mass/volume] in Serum o r PlasmaOrdered By: Dylan Vazquez on 05-16-2023 IgG [Mass/Vol] 1081 mg/dL 603-1613 [facility] IgM [Mass/volume] in Serum o r PlasmaOrdered By: Dylan Vazquez on 05-16-2023 IgM [Mass/Vol] 89 mg/dL 20-172 [facility] Immunoglobulin light chains. kappa.free [Mass/volume] in SerumOrdered By: Dylan Vazquez on 05-16-2023 Immunoglobulin light chains.kappa.free (S) [Mass/Vol] 50.7 mg/L High 3.3-19.4 [facility] Immunoglobulin light chains. kappa.free/Immunoglobulin light chains.lambda.free [MassOrdered By: Dylan Vazquez on 05-16-2023 Immunoglobulin light chains.kappa.free/Immun oglobulin light chains.lambda.free (S) [Mass ratio] 1.86 High 0.26-1.65 [facility] Comment on above: Performed at: [address] [id number] Director: Flaco Pineda PhD, Phone: [phone] Immunoglobulin light chains. lambda.free [Mass/volume] in Serum or PlasmaOrdered By: Dylan Vazquez on 05-16-2023 Immunoglobulin light chains.lambda.free [Mass/Vol] 27.2 mg/L High 5.7-26.3 [facility] Iron [Mass/volume] in Serum or PlasmaOrdered By: Dylan Vazquez on 05-16-2023 Iron [Mass/Vol] 85 ug/dL 50-212 [facility] Iron [Mass/Vol] Iron [Mass/volume] i n Serum or Plasma 50-212 [facility] Iron binding capacity [Mass/ volume] in Serum or PlasmaOrdered By: Dylan Vazquez on 05-16-2023 Iron binding capacity [Mass/Vol] 405 ug/dL 255-450 [facility] Iron saturation [Mass Fracti on] in Serum or PlasmaOrdered By: Dylan Vazquez on 05-16-2023 Iron saturation [Mass fraction] 21.0 % 20-50 [facility] Leukocytes [#/volume] correc lamont for nucleated erythrocytes in Blood by Automated counOrdered By: Dylan Vazquez on 05-16-2023 WBC corrected for nucl RBC Auto (Bld) [#/Vol] 7.0 10*3/uL 4.1-10.5 [facility] WBC corrected for nucl RBC Auto (Bld) [#/Vol] Leukocytes [#/volume] corrected for nucleated erythrocytes in Blood by Automated coun 4.1-10.5 [facility] Lymphocytes Auto (Bld) [#/Vo l]Ordered By: Dylan Vazquez on 05-16-2023 Lymphocytes (Bld) [#/Vol] 1.3 10*3/uL 1.00-4.8 [facility] Lymphocytes (Bld) [#/Vol] Lymphocytes [#/volume] in Blood by Automated count 1.00-4.8 [facility] Lymphocytes/100 WBC Auto (Bl d)Ordered By: Dylan Vazquez on 05-16-2023 Lymphocytes/100 WBC (Bld) 17.9 % . [facility] Lymphocytes/100 WBC (Bld) Lymphocytes/100 leukocytes in Blood by Automated count . [facility] MCH Auto (RBC) [Entitic mass ]Ordered By: Dylan Vazquez on 05-16-2023 MCH (RBC) [Entitic mass] 27.9 pg 27.5-35.2 [facility] MCH (RBC) [Entitic mass] MCH [Entitic mass] by Automated count 27.5-35.2 [facility] MCHC Auto (RBC) [Mass/Vol]Or dered By: Dylan Vazquez on 05-16-2023 MCHC (RBC) [Mass/Vol] 33.0 g/dL 32.5-35.6 [facility] MCHC (RBC) [Mass/Vol] MCHC [Mass/volume] by Automated count 32.5-35.6 [facility] MCV Auto (RBC) [Entitic vol] Ordered By: Dylan Vazquez on 05-16-2023 MCV (RBC) [Entitic vol] 84.6 fL 83.5-101 [facility] MCV (RBC) [Entitic vol] MCV [Entitic vol ume] by Automated count 83.5-101 [facility] Monocytes Auto (Bld) [#/Vol] Ordered By: Dylan Vazquez on 05-16-2023 Monocytes (Bld) [#/Vol] 0.6 10*3/uL 0.0-0.8 [facility] Monocytes (Bld) [#/Vol] Automated blood monocyte count 0.0-0.8 [facility] Monocytes/100 WBC Auto (Bld) Ordered By: Dylan Vazquez on 05-16-2023 Monocytes/100 WBC (Bld) 8.0 % . [facility] Monocytes/100 WBC (Bld) Automated monocyte % . [facility] Neutrophils Auto (Bld) [#/Vo l]Ordered By: Dylan Vazquez on 05-16-2023 Neutrophils (Bld) [#/Vol] 4.6 10*3/uL 1.8-7.7 [facility] Neutrophils (Bld) [#/Vol] Neutrophils [#/volume] in Blood by Automated count 1.8-7.7 [facility] Neutrophils/100 WBC Auto (Bl d)Ordered By: Dylan Vazquez on 05-16-2023 Neutrophils/100 WBC (Bld) 64.9 % . [facility] Neutrophils/100 WBC (Bld) Automated neutrophil % . [facility] No Panel InformationOrdered By: Dylan Vazquez on 05-16-2023 Estimated GFR (CKD-EPI) 46.932 mL/Min [facility] Creatinine Clearance (Chem 58.46 [facility] Protein Electrophoresis M-Abhijeet Not observed g/dL Not Observed [facility] Protein Electrophoresis Note See comment . [facility] Comment on above: Protein electrophore sis scan will follow via computer,mail, or mixologist delivery.Performed at: [address] [id number] Director: Flaco Pineda PhD, Phone: [phone] Nucleated erythrocytes [Pres ence] in Blood by Automated countOrdered By: Dylan Vazquez on 05-16-2023 Nucleated RBC Auto Ql (Bld) 0.1 /100{WBC} 0-0.5 [facility] Nucleated RBC Auto Ql (Bld) Nucleated erythrocytes [Presence] in Blood by Automated count 0-0.5 [facility] Platelet mean volume Auto (B ld) [Entitic vol]Ordered By: Dylan Vazquez on 05-16-2023 Platelet mean volume (Bld) [Entitic vol] 8.6 fL 6.6-10.1 [facility] Platelet mean volume (Bld) [Entitic vol] Platelet mean volume [Entitic volume] in Blood by Automated count 6.6-10.1 [facility] Platelets Auto (Bld) [#/Vol] Ordered By: Dylan Vazquez on 05-16-2023 Platelets (Bld) [#/Vol] 282 10*3/uL 150-450 [facility] Platelets (Bld) [#/Vol] Platelets [#/vol ume] in Blood by Automated count 150-450 [facility] Potassium [Moles/volume] in Serum or PlasmaOrdered By: Dylan Vazquez on 05-16-2023 Potassium [Moles/Vol] 5.1 mmol/L 3.5-5.1 [facility] Potassium [Moles/Vol] Potassium [Moles/volume] in Serum or Plasma 3.5-5.1 [facility] Protein [Mass/volume] in Ser um or PlasmaOrdered By: Dylan Vazquez on 05-16-2023 Protein [Mass/Vol] 7.7 g/dL 6.4-8.9 [facility] Protein [Mass/Vol] 7.3 g/dL 6.0-8.5 [facility] Protein [Mass/Vol] Protein [Mass/volume ] in Serum or Plasma 6.0-8.5 [facility] RBC Auto (Bld) [#/Vol]Ordere d By: Dylan Vazquez on 05-16-2023 RBC (Bld) [#/Vol] 4.20 10*6/uL 3.90-5.60 [facility] RBC (Bld) [#/Vol] Erythrocytes [#/volu me] in Blood by Automated count 3.90-5.60 [facility] Serum free kappa light chain measurementOrdered By: Dylan Vazquez on 05-16-2023 Immunoglobulin light chains.kappa.free (S) [Mass/Vol] Immunoglobulin light chains.kappa.free [Mass/volume] in Serum High 3.3-19.4 [facility] Serum globulin measurement ( mass/volume)Ordered By: Dylan Vazquez on 05-16-2023 Globulin (S) [Mass/Vol] Serum globulin measurement (mass/volume) 2.2-3.9 [facility] Serum globulin measurement b y calculation (mass/volume)Ordered By: Dylan Vazquez on 05-16-2023 Globulin (S) [Mass/Vol] 3.5 g/dL 2.2-3.9 [facility] Serum immunofixation electro phoresisOrdered By: Dylan Vazquez on 05-16-2023 Serum Immunofixation See comment . [facility] Comment on above: No monoclonality det ected. Serum immunoglobulin free ka ppa light chains/immunoglobulin free lambda light chainsOrdered By: Dylan Vazquez on 05-16-2023 Immunoglobulin light chains.kappa.free/Immun oglobulin light chains.lambda.free (S) [Mass ratio] Immunoglobulin light chains.kappa.free/Immun oglobulin light chains.lambda.free [Mass High 0.26-1.65 [facility] Comment on above: Performed at: [address] [id number] Director: Flaco Pineda PhD, Phone: [phone] Serum or plasma IgA measurem ent (mass/volume)Ordered By: Dylan Vazquez on 05-16-2023 IgA [Mass/Vol] IgA [Mass/volume] in Serum or Plasma 75-637 [facility] Serum or plasma IgG measurem ent (mass/volume)Ordered By: Dylan Vazquez on 05-16-2023 IgG [Mass/Vol] IgG [Mass/volume] in Serum or Plasma 452-7926 [facility] Serum or plasma IgM measurem ent (mass/volume)Ordered By: Dylan Vazquez on 05-16-2023 IgM [Mass/Vol] IgM [Mass/volume] in Serum or Plasma 20-172 [facility] Serum or plasma albumin maine urement (mass/volume)Ordered By: Dylan Vazquez on 05-16-2023 Albumin [Mass/Vol] Albumin [Mass/volume ] in Serum or Plasma 2.9-4.4 [facility] Serum or plasma albumin/glob ulin mass ratioOrdered By: Dylan Vazquez on 05-16-2023 Albumin/Globulin [Mass ratio] 1.2 {ratio} [facility] Albumin/Globulin [Mass ratio] 1.1 {ratio} 0.7-1.7 [facility] Albumin/Globulin [Mass ratio] Serum or plasma albumin/globulin mass ratio 0.7-1.7 [facility] Serum or plasma alpha 1 glob ulin measurement by electrophoresis (mass/volume)Ordered By: Dylan Vazquez on 05-16-2023 Alpha 1 globulin Elph [Mass/Vol] 0.3 g/dL 0.0-0.4 [facility] Alpha 1 globulin Elph [Mass/Vol] Serum or plasma alpha 1 globulin measurement by electrophoresis (mass/volume) 0.0-0.4 [facility] Serum or plasma alpha 2 glob ulin measurement by electrophoresis (mass/volume)Ordered By: Dylan Vazquez on 05-16-2023 Alpha 2 globulin Elph [Mass/Vol] 1.1 g/dL High 0.4-1.0 [facility] Alpha 2 globulin Elph [Mass/Vol] Serum or plasma alpha 2 globulin measurement by electrophoresis (mass/volume) High 0.4-1.0 [facility] Serum or plasma anion gap de terminationOrdered By: Dylan Vazquez on 05-16-2023 Anion gap [Moles/Vol] 11.5 mmol/L 6.0-15.0 [facility] Anion gap [Moles/Vol] Serum or plasma an ion gap determination 6.0-15.0 [facility] Serum or plasma beta globuli n measurement by electrophoresis (mass/volume)Ordered By: Dylan Vazquez on 05-16-2023 Beta globulin Elph [Mass/Vol] 1.0 g/dL 0.7-1.3 [facility] Beta globulin Elph [Mass/Vol] Serum or plasma beta globulin measurement by electrophoresis (mass/volume) 0.7-1.3 [facility] Serum or plasma cancer antig en 19-9 measurement (units/volume)Ordered By: Dylan George on 05-16-2023 Cancer Ag 19-9 Qn 23 [arb'U]/mL 0-35 [facility] Comment on above: Skeed El ectrochemiluminescence Immunoassay(ECLIA)Values obtained with different assay methods or kits cannotbe used interchangeably. Results cannot be interpreted asabsolute evidence of the presence or absence of malignantdisease.Performed at: [facility] [place] [id number] Director: Flaco Pineda PhD, Phone: [phone] Cancer Ag 19-9 Qn Serum or plasma canc er antigen 19-9 measurement (units/volume) 0-35 [facility] Comment on above: Skeed El ectrochemiluminescence Immunoassay(ECLIA)Values obtained with different assay methods or kits cannotbe used interchangeably. Results cannot be interpreted asabsolute evidence of the presence or absence of malignantdisease.Performed at: [employer] [employer] [place], [place] [id number] Director: Flaco Pineda PhD, Phone: [phone] Serum or plasma erythropoiet in (EPO) measurement (units/volume)Ordered By: Dylan Vazquez on 05-16-2023 Erythropoietin (EPO) Qn 7.1 mIU/mL 2.6-18.5 [facility] Comment on above: Emerging Threats el DxI 800 Immunoassay SystemValues obtained with different assay methods or kits cannotbe used interchangeably. Results cannot be interpreted asabsolute evidence of the presence or absence of malignantdisease.Performed at: [facility] [place], [place] [id number] Director: Flaco Pineda PhD, Phone: [phone] Erythropoietin (EPO) Qn Serum or plasma erythropoietin (EPO) measurement (units/volume) 2.6-18.5 [facility] Comment on above: Emerging Threats el DxI 800 Immunoassay SystemValues obtained with different assay methods or kits cannotbe used interchangeably. Results cannot be interpreted asabsolute evidence of the presence or absence of malignantdisease.Performed at: [facility] [id number] Director: Flaco Pineda PhD, Phone: [phone] Serum or plasma gamma globul in measurement by electrophoresis (mass/volume)Ordered By: Dylan Vazquez on 05-16-2023 Gamma globulin Elph [Mass/Vol] 1.1 g/dL 0.4-1.8 [facility] Gamma globulin Elph [Mass/Vol] Serum or plasma gamma globulin measurement by electrophoresis (mass/volume) 0.4-1.8 [facility] Serum or plasma immunoglobul in free lambda light chains measurement (mass/volume)Ordered By: Dylan Vazquez on 05-16-2023 Immunoglobulin light chains.lambda.free [Mass/Vol] Immunoglobulin light chains.lambda.free [Mass/volume] in Serum or Plasma High 5.7-26.3 [facility] Serum or plasma iron binding capacity measurement (mass/volume)Ordered By: Dylan Vazquez on 05-16-2023 Iron binding capacity [Mass/Vol] Iron binding capacity [Mass/volume] in Serum or Plasma 255-450 [facility] Serum or plasma iron saturat ion measurement (mass fraction)Ordered By: Dylan Vazquez on 05-16-2023 Iron saturation [Mass fraction] Iron saturation [Mass Fraction] in Serum or Plasma 20-50 [facility] Sodium [Moles/volume] in Ser um or PlasmaOrdered By: Dylan Vazquez on 05-16-2023 Sodium [Moles/Vol] 134 mmol/L Low 136-145 [facility] Sodium [Moles/Vol] Sodium [Moles/volume ] in Serum or Plasma Low 136-145 [facility] Transferrin [Mass/volume] in Serum or PlasmaOrdered By: Dylan Vazquez on 05-16-2023 Transferrin [Mass/Vol] 289 mg/dL 203-362 [facility] Transferrin [Mass/Vol] Transferrin [Mass/volume] in Serum or Plasma 203-362 [facility] Urea nitrogen [Mass/volume] in Serum or PlasmaOrdered By: Dylan Vazquez on 05-16-2023 Urea nitrogen [Mass/Vol] 49 mg/dL High 7-25 [facility] WBC Auto (Bld) [#/Vol]Ordere d By: Dylan Vazquez on 05-16-2023 WBC (Bld) [#/Vol] 7.0 10*3/uL 4.1-10.5 [facility] WBC (Bld) [#/Vol] Leukocytes [#/volume ] in Blood by Automated count 4.1-10.5 [facility] CNOVon 05-14-2023 CNOV Office Visit (PAMAVN ) ALTAGRACIA CONWAY ([id number]) 1955 [facility] Date Time Provider Department 05/14/23 9:30 AM ELBA HENRY During your visit today, we recorded the following information about you: Pulse Blood pressure Weight Height 84/minute 138/65 103.4 kg 1.88 m Elba Henry PA-C 05/14/2023 1:46 PM Signed Pain Management Follow Up Visit Date: 05/14/23 DEBRA Montiel Man is a 67 year old male, who [...] supervised home exercise program (HEP): No 5. Appeals Officer: No Passive conservative therapy lasting 6 weeks in the last six months (see below) 1. Medical devises: No 2. Acupuncture: No 3. Tens unit: No 4. Prescription pain medication: No 5. NSAIDS: [place]: Cathy Garcia RN May 14, 2023 9:56 [...] to evaluate for DVT 4) Conor from [employer] was present for this visit and SCS [...] en 5/325 mg #10/ for 2 days Rajiv Enriquez Physical Examination: BP 138/65 Pulse 84 Ht [...] right ingui (more content not included)... Normal [facility] CNPNon 05-10-2023 SUZYN Telephone (CLARIBEL) ALTAGRACIA CONWAY ([id number]) 1955 [facility] Date Time Provider Department 05/10/23 ELBA HENRY During your visit today, we recorded the following information about you: Kristen Templeton LPN 05/10/2023 1:42 PM Signed Spoke with pt regarding SCS eval with [facility](Conor). Pt requesting appt with Gabriele to discuss options. VM and email sent to [facility] to meet pt at appt on 05/14/2023 @ 810. Pt stated he has been seen several times by [facility] and was texting with Conor yesterday. Allergies [...] NEC W/O COMA W HEPAT C ACUT [[id number]] 01/22/2002 Unspecified Senile Cataract [H25.9] 11/02/2009 Type [...] Status:Closed by KRISTEN TEMPLETON on 05/10/23 Normal [facility] Activated partial thrombopla stin time (aPTT) in platelet poor plasma by coagulation aOrdered By: Rajiv Enriquez on 05-02-2023 aPTT Coag (PPP) [Time] 69.8 s 25.1-36.5 [facility] Comment on above: A hematocrit value g reater than 55% may lead to inaccurate results in coagulation testing. Patients having hematocrit values >55% require a special collection tube for coagulation studies. Please contact the laboratory at [phone] for redraw instructions. Alanine aminotransferase [En zymatic activity/volume] in Serum or PlasmaOrdered By: Rajiv Enriquez on 05-02-2023 ALT [Catalytic activity/Vol] 65 U/L 7-52 [facility] Albumin [Mass/volume] in Ser um or Plasma by Bromocresol green (BCG) dye binding methoOrdered By: Rajiv Enriquez on 05-02-2023 Albumin BCG dye [Mass/Vol] 3.8 g/dL 3.5-5.7 [facility] Alkaline phosphatase [Enzyma tic activity/volume] in Serum or PlasmaOrdered By: Rajiv Enriquez on 05-02-2023 ALP [Catalytic activity/Vol] 229 U/L 34-104 [facility] Aspartate aminotransferase [ Enzymatic activity/volume] in Serum or PlasmaOrdered By: Rajiv Enriquez on 05-02-2023 AST [Catalytic activity/Vol] 80 U/L 13-39 [facility] Basophils Auto (Bld) [#/Vol] Ordered By: Rajiv Enriquez on 05-02-2023 Basophils (Bld) [#/Vol] 0.0 10*3/uL 0.0-0.2 [facility] Basophils/100 WBC Auto (Bld) Ordered By: Rajiv Enriquez on 05-02-2023 Basophils/100 WBC (Bld) 0.2 % . [facility] Bilirubin.total [Mass/volume ] in Serum or PlasmaOrdered By: Rajiv Enriquez on 05-02-2023 Bilirubin [Mass/Vol] 0.4 mg/dL 0.3-1.0 [facility] Calcium [Mass/volume] in Ser um or PlasmaOrdered By: Rajiv Enriquez on 05-02-2023 Calcium [Mass/Vol] 8.7 mg/dL 8.6-10.3 [facility] Carbon dioxide, total [Moles /volume] in Serum or PlasmaOrdered By: Rajiv Enriquez 05-02-2023 CO2 [Moles/Vol] 20.5 mmol/L 21.0-31.0 [facility] Chloride [Moles/volume] in S iqra or PlasmaOrdered By: Rajiv Enriquez on 05-02-2023 Chloride [Moles/Vol] 105 mmol/L 98-107 [facility] Creatine kinase [Enzymatic a ctivity/volume] in Serum or PlasmaOrdered By: Rajiv Enriquez on 05-02-2023 CK [Catalytic activity/Vol] 161 U/L 30-223 [facility] Creatinine [Mass/volume] in Serum or PlasmaOrdered By: Rajiv Enriquez on 05-02-2023 Creatinine [Mass/Vol] 1.43 mg/dL 0.70-1.30 [facility] Eosinophils Auto (Bld) [#/Vo l]Ordered By: Rajiv Enriquez on 05-02-2023 Eosinophils (Bld) [#/Vol] 0.1 10*3/uL 0.0-0.45 [facility] Eosinophils/100 WBC Auto (Bl d)Ordered By: Rajiv Enriquez on 05-02-2023 Eosinophils/100 WBC (Bld) 1.1 % . [facility] Erythrocyte distribution wid th Auto (RBC) [Ratio]Ordered By: Rajiv Enriquez on 05-02-2023 Erythrocyte distribution width (RBC) [Ratio] 14.4 % 12.0-14.8 [facility] Globulin Calc (S) [Mass/Vol] Ordered By: Rajiv Enriquez on 05-02-2023 Globulin (S) [Mass/Vol] 3.1 g/dL [facility] Glucose [Mass/volume] in Ser um or PlasmaOrdered By: Rajiv Enriquez on 05-02-2023 Glucose [Mass/Vol] 175 mg/dL 70-100 [facility] Comment on above: ADA recommended refe rence rangeRandom Glucose Reference Range is dependent on time and content of last meal. Glucose of more than 200 mg/dL in a nonstressed, ambulatory subject supports the diagnosis of Diabetes Mellitus. Hematocrit Auto (Bld) [Volum e fraction]Ordered By: Rajiv Enriquez on 05-02-2023 Hematocrit (Bld) [Volume fraction] 30.2 % 38.8-50.0 [facility] Hemoglobin [Mass/volume] in BloodOrdered By: Rajiv Enriquez 05-02-2023 Hemoglobin (Bld) [Mass/Vol] 10.0 g/dL 13.0-17.0 [facility] INR in Platelet poor plasma by Coagulation assayOrdered By: Rajiv Enriquez on 05-02-2023 INR Coag (PPP) [Relative time] 1.1 {INR} [facility] Comment on above: INR Therapeutic Rang [...] erythrocytes in Blood by Automated counOrdered By: Rajiv Enriquez on 05-02-2023 WBC corrected for nucl RBC Auto (Bld) [#/Vol] 7.1 10*3/uL 4.1-10.5 [facility] Lymphocytes Auto (Bld) [#/Vo l]Ordered By: Rajiv Enriquez on 05-02-2023 Lymphocytes (Bld) [#/Vol] 0.5 10*3/uL 1.00-4.8 [facility] Lymphocytes/100 WBC Auto (Bl d)Ordered By: Rajiv Enriquez on 05-02-2023 Lymphocytes/100 WBC (Bld) 7.4 % . [facility] MCH Auto (RBC) [Entitic mass ]Ordered By: Rajiv Enriquez on 05-02-2023 MCH (RBC) [Entitic mass] 28.0 pg 27.5-35.2 [facility] MCHC Auto (RBC) [Mass/Vol]Or dered By: Rajiv Enriquez on 05-02-2023 MCHC (RBC) [Mass/Vol] 33.2 g/dL 32.5-35.6 [facility] MCV Auto (RBC) [Entitic vol] Ordered By: Rajiv Enriquez on 05-02-2023 MCV (RBC) [Entitic vol] 84.4 fL 83.5-101 [facility] Monocyte distribution width [Entitic volume] in Blood by AutomatedOrdered By: Rajiv Enriquez on 05-02-2023 Monocyte distribution width Auto (Bld) [Entitic vol] 27.30 % 0.00-20.00 [facility] Comment on above: For adults in ED, MD W > 20.0 may be associated with a higher risk of sepsis during the first 12 hrs of hospital admission Monocytes Auto (Bld) [#/Vol] Ordered By: Rajiv Enriquez on 05-02-2023 Monocytes (Bld) [#/Vol] 0.5 10*3/uL 0.0-0.8 [facility] Monocytes/100 WBC Auto (Bld) Ordered By: Rajiv Enriquez on 05-02-2023 Monocytes/100 WBC (Bld) 7.3 % . [facility] Natriuretic peptide B [Mass/ Vol]Ordered By: Rajiv Enriquez on 05-02-2023 Natriuretic peptide B (Bld) [Mass/Vol] 56.0 pg/mL 5-100 [facility] Neutrophils Auto (Bld) [#/Vo l]Ordered By: Rajiv Enriquez on 05-02-2023 Neutrophils (Bld) [#/Vol] 6.0 10*3/uL 1.8-7.7 [facility] Neutrophils/100 WBC Auto (Bl d)Ordered By: Rajiv Enriquez on 05-02-2023 Neutrophils/100 WBC (Bld) 84.0 % . [facility] No Panel InformationOrdered By: Rajiv Enriquez on 05-02-2023 Estimated GFR (CKD-EPI) 53.704 mL/Min [facility] Creatinine Clearance (Chem 65.84 [facility] Nucleated erythrocytes [Pres ence] in Blood by Automated countOrdered By: Rajiv Enriquez on 05-02-2023 Nucleated RBC Auto Ql (Bld) 0.0 /100{WBC} 0-0.5 [facility] Platelet mean volume Auto (B ld) [Entitic vol]Ordered By: Rajiv Enriquez on 05-02-2023 Platelet mean volume (Bld) [Entitic vol] 9.5 fL 6.6-10.1 [facility] Platelets Auto (Bld) [#/Vol] Ordered By: Rajiv Enriquez on 05-02-2023 Platelets (Bld) [#/Vol] 125 10*3/uL 150-450 [facility] Comment on above: Delta: 163 on -1803 Potassium [Moles/volume] in Serum or PlasmaOrdered By: Rajiv Enriquez on 05-02-2023 Potassium [Moles/Vol] 4.4 mmol/L 3.5-5.1 [facility] Protein [Mass/volume] in Ser um or PlasmaOrdered By: Rajiv Enriquez on 05-02-2023 Protein [Mass/Vol] 6.9 g/dL 6.4-8.9 [facility] Prothrombin time (PT)Ordered By: Rajiv Enriquez on 05-02-2023 PT Coag (PPP) [Time] 13.0 s 9.0-12.9 [facility] Comment on above: A hematocrit value g reater than 55% may lead to inaccurate results in coagulation testing. Patients having hematocrit values >55% require a special collection tube for coagulation studies. Please contact the laboratory at [phone] for redraw instructions. RBC Auto (Bld) [#/Vol]Ordere d By: Rajiv Enriquez on 05-02-2023 RBC (Bld) [#/Vol] 3.58 10*6/uL 3.90-5.60 [facility] Serum or plasma albumin/glob ulin mass ratioOrdered By: Rajiv Enriquez on 05-02-2023 Albumin/Globulin [Mass ratio] 1.2 {ratio} [facility] Serum or plasma anion gap de terminationOrdered By: Rajiv Enriquez on 05-02-2023 Anion gap [Moles/Vol] 10.9 mmol/L 6.0-15.0 [facility] Sodium [Moles/volume] in Ser um or PlasmaOrdered By: Rajiv Enriquez on 05-02-2023 Sodium [Moles/Vol] 132 mmol/L 136-145 [facility] Troponin I.cardiac [Mass/vol ume] in Serum or Plasma by Detection limit <= 0.01 ng/Ordered By: Rajiv Enriquez on 05-02-2023 Troponin I.cardiac DL <= 0.01 ng/mL [Mass/Vol] 17.8 pg/mL 0.0-20.0 [facility] Urea nitrogen [Mass/volume] in Serum or PlasmaOrdered By: Rajiv Enriquez on 05-02-2023 Urea nitrogen [Mass/Vol] 41 mg/dL 7-25 [facility] WBC Auto (Bld) [#/Vol]Ordere d By: Rajiv Enriquez on 05-02-2023 WBC (Bld) [#/Vol] 7.1 10*3/uL 4.1-10.5 [facility] Alanine aminotransferase [En zymatic activity/volume] in Serum or PlasmaOrdered By: Fernando Rizo on 05-01-2023 ALT [Catalytic activity/Vol] 38 U/L 7-52 [facility] Albumin [Mass/volume] in Ser um or Plasma by Bromocresol green (BCG) dye binding methoOrdered By: Fernando Rizo on 05-01-2023 Albumin BCG dye [Mass/Vol] 4.3 g/dL 3.5-5.7 [facility] Alkaline phosphatase [Enzyma tic activity/volume] in Serum or PlasmaOrdered By: Fernando Rizo on 05-01-2023 ALP [Catalytic activity/Vol] 207 U/L 34-104 [facility] Aspartate aminotransferase [ Enzymatic activity/volume] in Serum or PlasmaOrdered By: Fernando Rizo on 05-01-2023 AST [Catalytic activity/Vol] 61 U/L 13-39 [facility] Automated erythrocytes count in urine sediment (number/area)Ordered By: Fernando Rizo on 05-01-2023 RBC Auto (Urine sed) [#/Area] 1-2 [HPF] 0-4 [facility] Automated leukocytes count i n urine sediment (number/area)Ordered By: Fernando Rizo on 05-01-2023 WBC Auto (Urine sed) [#/Area] 5-9 [HPF] 0-4 [facility] Basophils Auto (Bld) [#/Vol] Ordered By: Fernando Rizo on 05-01-2023 Basophils (Bld) [#/Vol] 0.1 10*3/uL 0.0-0.2 [facility] Basophils/100 WBC Auto (Bld) Ordered By: Fernando Rizo on 05-01-2023 Basophils/100 WBC (Bld) 0.6 % . [facility] Bilirubin Test strip Ql (U)O rdered By: Fernando Rizo on 05-01-2023 Bilirubin Ql (U) Negative Negative [facility] Bilirubin.total [Mass/volume ] in Serum or PlasmaOrdered By: Fernando Rizo on 05-01-2023 Bilirubin [Mass/Vol] 0.4 mg/dL 0.3-1.0 [facility] COVID CepheidOrdered By: Memo Rizo on 05-01-2023 SARS-CoV-2 (COVID-19) Ab IA Ql Negative Negative [facility] Comment on above: This is a duplicate scroll kit Xpert Xpress CoV-2/Flu/RSV Plus RNA by RT-PCR result to be used for statistical tracking purpose only. SARS-CoV-2 (COVID-19) RNA ANN+probe Ql (Unsp spec) [facility] SARS-CoV-2 (COVID-19) RNA ANN+probe Ql (Unsp spec) [facility] Calcium [Mass/volume] in Ser um or PlasmaOrdered By: Fernando Rizo on 05-01-2023 Calcium [Mass/Vol] 9.2 mg/dL 8.6-10.3 [facility] Carbon dioxide, total [Moles /volume] in Serum or PlasmaOrdered By: Fernando Rizo on 05-01-2023 CO2 [Moles/Vol] 21.0 mmol/L 21.0-31.0 [facility] Chloride [Moles/volume] in S iqra or PlasmaOrdered By: Fernando Rizo on 05-01-2023 Chloride [Moles/Vol] 104 mmol/L 98-107 [facility] Color Auto (U)Ordered By: Delroy Rizo on 05-01-2023 Color (U) Yellow Yellow [facility] Creatinine [Mass/volume] in Serum or PlasmaOrdered By: Fernando Rizo on 05-01-2023 Creatinine [Mass/Vol] 1.52 mg/dL 0.70-1.30 [facility] Eosinophils Auto (Bld) [#/Vo l]Ordered By: Fernando Rizo on 05-01-2023 Eosinophils (Bld) [#/Vol] 0.1 10*3/uL 0.0-0.45 [facility] Eosinophils/100 WBC Auto (Bl d)Ordered By: Fernando Rizo on 05-01-2023 Eosinophils/100 WBC (Bld) 1.3 % . [facility] Erythrocyte distribution wid th Auto (RBC) [Ratio]Ordered By: Fernando Rizo on 05-01-2023 Erythrocyte distribution width (RBC) [Ratio] 14.5 % 12.0-14.8 [facility] Globulin Calc (S) [Mass/Vol] Ordered By: Fernando Rizo on 05-01-2023 Globulin (S) [Mass/Vol] 3.1 g/dL [facility] Glucose [Mass/volume] in Ser um or PlasmaOrdered By: Fernando Rizo on 05-01-2023 Glucose [Mass/Vol] 166 mg/dL 70-100 [facility] Comment on above: ADA recommended refe rence rangeRandom Glucose Reference Range is dependent on time and content of last meal. Glucose of more than 200 mg/dL in a nonstressed, ambulatory subject supports the diagnosis of Diabetes Mellitus. Hematocrit Auto (Bld) [Volum e fraction]Ordered By: Fernando Rizo on 05-01-2023 Hematocrit (Bld) [Volume fraction] 33.1 % 38.8-50.0 [facility] Hemoglobin [Mass/volume] in BloodOrdered By: Fernando Rizo on 05-01-2023 Hemoglobin (Bld) [Mass/Vol] 10.8 g/dL 13.0-17.0 [facility] Ketones Auto test strip (U) [Mass/Vol]Ordered By: Fernando Rizo on 05-01-2023 Ketones (U) [Mass/Vol] Negative Negative [facility] - UrinalysisOrder ed By: Fernando Rizo on 05-01-2023 Hyaline casts LM Ql (Urine sed) 0-8 [LPF] 0-8 [facility] Leukocytes [#/volume] correc lamont for nucleated erythrocytes in Blood by Automated counOrdered By: Fernando Rizo on 05-01-2023 WBC corrected for nucl RBC Auto (Bld) [#/Vol] 11.2 10*3/uL 4.1-10.5 [facility] Lymphocytes Auto (Bld) [#/Vo l]Ordered By: Fernando Rizo on 05-01-2023 Lymphocytes (Bld) [#/Vol] 0.3 10*3/uL 1.00-4.8 [facility] Lymphocytes/100 WBC Auto (Bl d)Ordered By: Fernando Rizo on 05-01-2023 Lymphocytes/100 WBC (Bld) 3.1 % . [facility] MCH Auto (RBC) [Entitic mass ]Ordered By: Fernando Rizo on 05-01-2023 MCH (RBC) [Entitic mass] 27.5 pg 27.5-35.2 [facility] MCHC Auto (RBC) [Mass/Vol]Or dered By: Fernando Rizo on 05-01-2023 MCHC (RBC) [Mass/Vol] 32.7 g/dL 32.5-35.6 [facility] MCV Auto (RBC) [Entitic vol] Ordered By: Fernando Rizo on 05-01-2023 MCV (RBC) [Entitic vol] 84.0 fL 83.5-101 [facility] Monocyte distribution width [Entitic volume] in Blood by AutomatedOrdered By: Fernando Rizo on 05-01-2023 Monocyte distribution width Auto (Bld) [Entitic vol] 21.63 % 0.00-20.00 [facility] Comment on above: For adults in ED, MD W > 20.0 may be associated with a higher risk of sepsis during the first 12 hrs of hospital admission Monocytes Auto (Bld) [#/Vol] Ordered By: Fernando Rizo on 05-01-2023 Monocytes (Bld) [#/Vol] 0.3 10*3/uL 0.0-0.8 [facility] Monocytes/100 WBC Auto (Bld) Ordered By: Fernando Rizo on 05-01-2023 Monocytes/100 WBC (Bld) 3.1 % . [facility] Natriuretic peptide B [Mass/ Vol]Ordered By: Fernando Rizo on 05-01-2023 Natriuretic peptide B (Bld) [Mass/Vol] 16.0 pg/mL 5-100 [facility] Neutrophils Auto (Bld) [#/Vo l]Ordered By: Fernando Rizo on 05-01-2023 Neutrophils (Bld) [#/Vol] 10.3 10*3/uL 1.8-7.7 [facility] Neutrophils/100 WBC Auto (Bl d)Ordered By: Fernando Rizo on 05-01-2023 Neutrophils/100 WBC (Bld) 91.9 % . [facility] Nitrite Test strip Ql (U)Ord ered By: Fernando Rizo on 05-01-2023 Nitrite Ql (U) Negative Negative [facility] No Panel InformationOrdered By: Fernando Rizo on 05-01-2023 Estimated GFR (CKD-EPI) 49.912 mL/Min [facility] Creatinine Clearance (Chem 62.46 [facility] Nucleated erythrocytes [Pres ence] in Blood by Automated countOrdered By: Fernando Rizo on 05-01-2023 Nucleated RBC Auto Ql (Bld) 0.0 /100{WBC} 0-0.5 [facility] Platelet mean volume Auto (B ld) [Entitic vol]Ordered By: Fernando Rizo on 05-01-2023 Platelet mean volume (Bld) [Entitic vol] 9.1 fL 6.6-10.1 [facility] Platelets Auto (Bld) [#/Vol] Ordered By: Fernando Rizo on 05-01-2023 Platelets (Bld) [#/Vol] 163 10*3/uL 150-450 [facility] Potassium [Moles/volume] in Serum or PlasmaOrdered By: Fernando Rizo on 05-01-2023 Potassium [Moles/Vol] 5.6 mmol/L 3.5-5.1 [facility] Protein Auto test strip (U) [Mass/Vol]Ordered By: Fernando Rizo on 05-01-2023 Protein (U) [Mass/Vol] Trace mg/dL Negative [facility] Protein [Mass/volume] in Ser um or PlasmaOrdered By: Fernando Rizo on 05-01-2023 Protein [Mass/Vol] 7.4 g/dL 6.4-8.9 [facility] RBC Auto (Bld) [#/Vol]Ordere d By: Fernando Rizo on 05-01-2023 RBC (Bld) [#/Vol] 3.94 10*6/uL 3.90-5.60 [facility] Serum or plasma albumin/glob ulin mass ratioOrdered By: Fernando Rizo on 05-01-2023 Albumin/Globulin [Mass ratio] 1.4 {ratio} [facility] Serum or plasma anion gap de terminationOrdered By: Fernando Rizo on 05-01-2023 Anion gap [Moles/Vol] 13.6 mmol/L 6.0-15.0 [facility] Sodium [Moles/volume] in Ser um or PlasmaOrdered By: Fernando Rizo on 05-01-2023 Sodium [Moles/Vol] 133 mmol/L 136-145 [facility] Specific gravity Auto test s trip (U) [Rel density]Ordered By: Fernando Rizo on 05-01-2023 Specific gravity (U) [Rel density] 1.016 1.001-1.030 [facility] Squamous epithelial cells de tection in urine sediment by light microscopyOrdered By: Fernando Rizo on 05-01-2023 Epithelial cells.squamous LM Ql (Urine sed) None seen [HPF] 0-2 [facility] Troponin I.cardiac [Mass/vol ume] in Serum or Plasma by Detection limit <= 0.01 ng/Ordered By: Fernando Rizo on 05-01-2023 Troponin I.cardiac DL <= 0.01 ng/mL [Mass/Vol] 12.6 pg/mL 0.0-20.0 [facility] Urea nitrogen [Mass/volume] in Serum or PlasmaOrdered By: Fernando Rizo on 05-01-2023 Urea nitrogen [Mass/Vol] 46 mg/dL 7-25 [facility] Urine bacteria detection by automated methodOrdered By: Fernando Rizo on 05-01-2023 Bacteria Auto Ql (U) None seen None Seen [facility] Urine clarity by refractomet ry automatedOrdered By: Fernando Rizo on 05-01-2023 Clarity Refractometry automated (U) Clear Clear [facility] Urine culture routineOrdered By: Fernando Rizo on 05-01-2023 Bacteria identified Cx Nom (U) No Growth 2 Days [facility] Urine glucose measurement by automated test strip (mass/volume)Ordered By: Fernando Rizo on 05-01-2023 Glucose Auto test strip (U) [Mass/Vol] Normal mg/dL Normal [facility] Urine hemoglobin detection b y automated test stripOrdered By: Fernando Rizo on 05-01-2023 Hemoglobin Auto test strip Ql (U) Negative Negative [facility] Urine leukocyte esterase det ection by automated test stripOrdered By: Fernando Rizo on 05-01-2023 Leukocyte esterase Auto test strip Ql (U) 2+ Negative [facility] Urobilinogen Auto test strip (U) [Mass/Vol]Ordered By: Fernando Rizo on 05-01-2023 Urobilinogen (U) [Mass/Vol] Normal mg/dL Normal [facility] WBC Auto (Bld) [#/Vol]Ordere d By: Fernando Rizo on 05-01-2023 WBC (Bld) [#/Vol] 11.2 10*3/uL 4.1-10.5 [facility] pH Auto test strip (U)Ordere d By: Fernando Rizo on 05-01-2023 pH (U) 5.0 [pH] 5.0-9.0 [facility] Nonvisit Note - PTon 024 Nonvisit Note - PT Pt called and spoke with clerical staff stating he wanted to cancel all future PT sessions as he is unable to afford the copay. [facility] Consent for Treatmenton 04-11 Consent for Treatment [id number]#1.00T IFF [facility] PT - Assessmentson PT - Assessments [id number]#1.00T IFF [facility] PT - Consentson 04-22-2023 PT - Consents [id number] 112 [id number]#1.00T IFF [facility] PT - Home Exercise Programon 04-22-2023 PT - Home Exercise Program [id number]#1.00T IFF [facility] Outside Recordson 04-15-2023 Outside Records [id number] [id number]#1.00T IFF [facility] PT - Orderson 04-15-2023 PT - Orders [id number] [id number]#1.00T IFF [facility] Activated partial thrombopla stin time (aPTT) in platelet poor plasma by coagulation aOrdered By: Dario Bianchi on 04-13-2023 aPTT Coag (PPP) [Time] 86.9 s 25.1-36.5 [facility] Comment on above: A hematocrit value g reater than 55% may lead to inaccurate results in coagulation testing. Patients having hematocrit values >55% require a special collection tube for coagulation studies. Please contact the laboratory at [phone] for redraw instructions. Alanine aminotransferase [En zymatic activity/volume] in Serum or PlasmaOrdered By: Dario Bianchi on 04-13-2023 ALT [Catalytic activity/Vol] 16 U/L 7-52 [facility] Albumin [Mass/volume] in Ser um or Plasma by Bromocresol green (BCG) dye binding methoOrdered By: Dario Bianchi on 04-13-2023 Albumin BCG dye [Mass/Vol] 3.8 g/dL 3.5-5.7 [facility] Alkaline phosphatase [Enzyma tic activity/volume] in Serum or PlasmaOrdered By: Dario Bianchi on 04-13-2023 ALP [Catalytic activity/Vol] 133 U/L 34-104 [facility] Aspartate aminotransferase [ Enzymatic activity/volume] in Serum or PlasmaOrdered By: Dario Bianchi on 04-13-2023 AST [Catalytic activity/Vol] 20 U/L 13-39 [facility] Basophils Auto (Bld) [#/Vol] Ordered By: Dario Bianchi on 04-13-2023 Basophils (Bld) [#/Vol] 0.1 10*3/uL 0.0-0.2 [facility] Basophils/100 WBC Auto (Bld) Ordered By: Dario Bianchi on 04-13-2023 Basophils/100 WBC (Bld) 1.2 % . [facility] Bilirubin.total [Mass/volume ] in Serum or PlasmaOrdered By: Dario Bianchi on 04-13-2023 Bilirubin [Mass/Vol] 0.3 mg/dL 0.3-1.0 [facility] COVID CepheidOrdered By: Gretta Bianchi on 04-13-2023 SARS-CoV-2 (COVID-19) Ab IA Ql Negative Negative [facility] Comment on above: This is a duplicate [employer] Xpert Xpress CoV-2/Flu/RSV Plus RNA by RT-PCR result to be used for statistical tracking purpose only. SARS-CoV-2 (COVID-19) RNA ANN+probe Ql (Unsp spec) [facility] SARS-CoV-2 (COVID-19) RNA ANN+probe Ql (Unsp spec) [facility] Calcium [Mass/volume] in Ser um or PlasmaOrdered By: Dario Bianchi on 04-13-2023 Calcium [Mass/Vol] 9.2 mg/dL 8.6-10.3 [facility] Carbon dioxide, total [Moles /volume] in Serum or PlasmaOrdered By: Dario Bianchi on 04-13-2023 CO2 [Moles/Vol] 27.9 mmol/L 21.0-31.0 [facility] Chloride [Moles/volume] in S iqra or PlasmaOrdered By: Dario Bianchi on 04-13-2023 Chloride [Moles/Vol] 108 mmol/L 98-107 [facility] Creatine kinase [Enzymatic a ctivity/volume] in Serum or PlasmaOrdered By: Dario Bianchi on 04-13-2023 CK [Catalytic activity/Vol] 131 U/L 30-223 [facility] Creatinine [Mass/volume] in Serum or PlasmaOrdered By: Dario Bianchi on 04-13-2023 Creatinine [Mass/Vol] 1.31 mg/dL 0.70-1.30 [facility] Eosinophils Auto (Bld) [#/Vo l]Ordered By: Dario Bianchi on 04-13-2023 Eosinophils (Bld) [#/Vol] 0.6 10*3/uL 0.0-0.45 [facility] Eosinophils/100 WBC Auto (Bl d)Ordered By: Dario Bianchi on 04-13-2023 Eosinophils/100 WBC (Bld) 9.6 % . [facility] Erythrocyte distribution wid th Auto (RBC) [Ratio]Ordered By: Dario Bianchi on 04-13-2023 Erythrocyte distribution width (RBC) [Ratio] 14.2 % 12.0-14.8 [facility] Globulin Calc (S) [Mass/Vol] Ordered By: Dario Bianchi on 04-13-2023 Globulin (S) [Mass/Vol] 3.5 g/dL [facility] Glucose [Mass/volume] in Ser um or PlasmaOrdered By: Dario Bianchi on 04-13-2023 Glucose [Mass/Vol] 110 mg/dL 70-100 [facility] Comment on above: ADA recommended refe rence rangeRandom Glucose Reference Range is dependent on time and content of last meal. Glucose of more than 200 mg/dL in a nonstressed, ambulatory subject supports the diagnosis of Diabetes Mellitus. Hematocrit Auto (Bld) [Volum e fraction]Ordered By: Dario Bianchi on 04-13-2023 Hematocrit (Bld) [Volume fraction] 32.7 % 38.8-50.0 [facility] Hemoglobin [Mass/volume] in BloodOrdered By: Dario Bianchi on 04-13-2023 Hemoglobin (Bld) [Mass/Vol] 10.8 g/dL 13.0-17.0 [facility] INR in Platelet poor plasma by Coagulation assayOrdered By: Dario Bianchi on 04-13-2023 INR Coag (PPP) [Relative time] 1.0 {INR} [facility] Comment on above: INR Therapeutic Rang [...] RBC Auto (Bld) [#/Vol] 6.0 10*3/uL 4.1-10.5 [facility] Lymphocytes Auto (Bld) [#/Vo l]Ordered By: Dario Bianchi on 04-13-2023 Lymphocytes (Bld) [#/Vol] 1.2 10*3/uL 1.00-4.8 [facility] Lymphocytes/100 WBC Auto (Bl d)Ordered By: Dario Bianchi on 04-13-2023 Lymphocytes/100 WBC (Bld) 20.9 % . [facility] MCH Auto (RBC) [Entitic mass ]Ordered By: Dario Bianchi on 04-13-2023 MCH (RBC) [Entitic mass] 28.4 pg 27.5-35.2 [facility] MCHC Auto (RBC) [Mass/Vol]Or dered By: Dario Bianchi on 04-13-2023 MCHC (RBC) [Mass/Vol] 33.2 g/dL 32.5-35.6 [facility] MCV Auto (RBC) [Entitic vol] Ordered By: Dario Binachi on 04-13-2023 MCV (RBC) [Entitic vol] 85.6 fL 83.5-101 [facility] Magnesium [Mass/volume] in S iqra or PlasmaOrdered By: Dario Bianchi on 04-13-2023 Magnesium [Mass/Vol] 1.6 mg/dL 1.9-2.7 [facility] Monocyte distribution width [Entitic volume] in Blood by AutomatedOrdered By: Dario Bianchi on 04-13-2023 Monocyte distribution width Auto (Bld) [Entitic vol] 19.89 % 0.00-20.00 [facility] Monocytes Auto (Bld) [#/Vol] Ordered By: Dario Bianchi on 04-13-2023 Monocytes (Bld) [#/Vol] 0.5 10*3/uL 0.0-0.8 [facility] Monocytes/100 WBC Auto (Bld) Ordered By: Dario Bianchi on 04-13-2023 Monocytes/100 WBC (Bld) 8.7 % . [facility] Natriuretic peptide B [Mass/ Vol]Ordered By: Dario Bianchi on 04-13-2023 Natriuretic peptide B (Bld) [Mass/Vol] 29.0 pg/mL 5-100 [facility] Neutrophils Auto (Bld) [#/Vo l]Ordered By: Dario Bianchi on 04-13-2023 Neutrophils (Bld) [#/Vol] 3.6 10*3/uL 1.8-7.7 [facility] Neutrophils/100 WBC Auto (Bl d)Ordered By: Dario Bianchi on 04-13-2023 Neutrophils/100 WBC (Bld) 59.6 % . [facility] No Panel InformationOrdered By: Dario Bianchi on 04-13-2023 Estimated GFR (CKD-EPI) 59.660 mL/Min [facility] Creatinine Clearance (Chem 71.33 [facility] Nucleated erythrocytes [Pres ence] in Blood by Automated countOrdered By: Dario Bianchi on 04-13-2023 Nucleated RBC Auto Ql (Bld) 0.1 /100{WBC} 0-0.5 [facility] Platelet mean volume Auto (B ld) [Entitic vol]Ordered By: Dario Bianchi on 04-13-2023 Platelet mean volume (Bld) [Entitic vol] 8.3 fL 6.6-10.1 [facility] Platelets Auto (Bld) [#/Vol] Ordered By: Dario Binachi on 04-13-2023 Platelets (Bld) [#/Vol] 188 10*3/uL 150-450 [facility] Potassium [Moles/volume] in Serum or PlasmaOrdered By: Dario Bianchi on 04-13-2023 Potassium [Moles/Vol] 4.7 mmol/L 3.5-5.1 [facility] Protein [Mass/volume] in Ser um or PlasmaOrdered By: Dario Bianchi on 04-13-2023 Protein [Mass/Vol] 7.3 g/dL 6.4-8.9 [facility] Prothrombin time (PT)Ordered By: Dario Bianchi on 04-13-2023 PT Coag (PPP) [Time] 11.7 s 9.0-12.9 [facility] Comment on above: A hematocrit value g reater than 55% may lead to inaccurate results in coagulation testing. Patients having hematocrit values >55% require a special collection tube for coagulation studies. Please contact the laboratory at [phone] for redraw instructions. RBC Auto (Bld) [#/Vol]Ordere d By: Dario Bianchi on 04-13-2023 RBC (Bld) [#/Vol] 3.82 10*6/uL 3.90-5.60 [facility] Serum or plasma albumin/glob ulin mass ratioOrdered By: Dario Bianchi on 04-13-2023 Albumin/Globulin [Mass ratio] 1.1 {ratio} [facility] Serum or plasma anion gap de terminationOrdered By: Dario Bianchi on 04-13-2023 Anion gap [Moles/Vol] 8.8 mmol/L 6.0-15.0 [facility] Sodium [Moles/volume] in Ser um or PlasmaOrdered By: Dario Bianchi on 04-13-2023 Sodium [Moles/Vol] 140 mmol/L 136-145 [facility] Troponin I.cardiac [Mass/vol ume] in Serum or Plasma by Detection limit <= 0.01 ng/Ordered By: Dario Biacnhi on 04-13-2023 Troponin I.cardiac DL <= 0.01 ng/mL [Mass/Vol] 7.1 pg/mL 0.0-20.0 [facility] Urea nitrogen [Mass/volume] in Serum or PlasmaOrdered By: Dario Bianchi on 04-13-2023 Urea nitrogen [Mass/Vol] 31 mg/dL 7-25 [facility] WBC Auto (Bld) [#/Vol]Ordere d By: Dario Bianchi on 04-13-2023 WBC (Bld) [#/Vol] 6.0 10*3/uL 4.1-10.5 [facility] CNOVon 03-29-2023 CNTESSA Office Visit (CLARIBEL ) ALTAGRACIA CONWAY ([id number]) 1955 M [facility] Date Time Provider Department 03/29/23 1:30 PM [...] supervised home exercise program (HEP): No 5. Appeals Officer: No Passive conservative therapy lasting 6 weeks [...] edited as needed and is complete. Elba eHnry PA-C March 29, 2023 NOHELIA: 02/19/23 - [...] left SI Joint: Gaenslen's Test negative and Covington's Test is negative. No tenderness with palpation [...] (SCS) lead implantation x 2 and [employer] Eximo Medicalis adaptiveStim system implantable pulse generator (IPG), on 11/13/[address] Ortega. His last office visit was on 02/19/23 with Elba Henry PA-C at which time he reported pain in the left buttock around the the IPG. At that time I recommended use of heat, stretching, and muscle relaxant for the pain. Altagracia Conway also met with the [employer] rep for SCS reprogramming. Altagracia Conway reports [...] 3-6/10. H (more content not included)... Normal [facility] Tae 03-29-2023 CNPN Telephone (CLARIBEL) ALTAGRACIA CONWAY ([id number]) 1955 [facility] Date Time Provider [...] NEC W/O COMA W HEPAT C ACUT [[id number]] 01/22/2002 Unspecified Senile Cataract [H25.9] 11/02/2009 Type [...] Status:Closed by ELBA HENRY on 03/29/23 Normal [facility] US DVT LOWER LTon 03-29-2023 US DVT [...] PROBABLY INFLAMMATORY. SUGGEST CLINICAL CORRELATION AND FOLLOW-UP. Financial Aids Officer: [facility] Transcribe Date/Time: Mar 29 2023 3:58P Dictated by : DAVID RAPHAEL MD This examination was interpreted and the report reviewed and electronically signed by: DAVID RAPHAEL MD on Mar 29 2023 4:01PM EST [id number] [facility] XR LUMBAR 4V AP/LAT/ FLEX/EX Ton [...] degenerative change. Disc degenerative narrowing as described. Financial Aids Officer: [facility] Transcribe Date/Time: Mar 29 2023 3:39P Dictated by : LIANG SANCHEZ MD This examination was interpreted and the report reviewed and electronically signed by: LIANG SANCHEZ MD on Mar 29 2023 3:40PM EST [id number] [facility] 02-19-2023 [facility] Office Visit (CLARIBEL ) ALTAGRACIA CONWAY ([id number]) 1955 M [facility] Date Time Provider Department [...] supervised home exercise program (HEP): No 5. Appeals Officer: No Passive conservative therapy lasting 6 weeks [...] no signs (more content not included)... Normal [facility] Coding Summary.on 02-19-2023 Coding Summary. [id number]#1.00T IFF Normal [facility] Insurance Correspondenceon 1 04-18-2022 Insurance Correspondence [id number]#1.00 TIFF Normal [facility] Insurance Correspondence Off iceon 02-08-2023 Insurance Correspondence Office [id number]#1.00T IFF Normal [facility] ED Note-Physicianon 02-08-20 ED Note-Physician Basic Information [...] Therapy PT & PTT Rapid COVID Antigen [place] Saline Lock Insert Troponin 0 Hr. Troponin [...] Current, 07/12/2018 Tobac (more content not included)... [facility] Comment on above: Result Comment: Elec tronically Signed By: Rajiv WU, Danielle\.br\Date and Time Signed: 02/07/23 23:41 EST Insurance Correspondence Off iceon 02-06-2023 Insurance Correspondence Office [id number]#1.00 TIFF [facility] C Urineon 02-05-2023 Bacteria identified Cx Nom (U) Microbiology PROCEDURE: Urine Culture [R1] SOURCE: U CleanCatch BODY SITE: COLLECTED DATE/TIME: 02/03/2023 20:25 EST RECEIVED DATE/TIME: 02/03/2023 20:35 EST START DATE/TIME: 02/03/2023 20:35 EST FREE TEXT SOURCE: Rajiv WU, Danielle Huang MD FINAL REPORTS Final Report [] Verified Date/Time: 02/05/2023 10:51 EST 200 cfu/ml Mixed skin contaminants Performing Locations R1: [facility] performed at: [facility], [address] [place] [address], [facility]- , , [facility] Comment on above: Performed By: #### 1 [id number] #### [facility] [address] [place] [address] Consent To Leave AMAon 02-05 Consent To Leave AMA .[id number]#1.00 TIFF [facility] Discharge Instructionson Discharge Instructions [id number]#1.00 TIFF [facility] Medication Listson 3 Medication Lists [id number]#1.00 TIFF [facility] Message from Medicareon 01-10 Message from Medicare [id number]#1.00 TIFF Normal [facility] BMPon 02-04-2023 Anion gap [Moles/Vol] 10 mmol/L Normal 6-16 [facility] Comment on above: Order Comment: draw packet sent. 3s aware. Performed By: #### 2 [id number], [id number], [id number] #### [facility] [address] [place] [address] Calcium [Mass/Vol] 9.3 mg/dL Normal 8.9-11.1 [facility] Comment on above: Order Comment: draw packet sent. 3s aware. Performed By: #### 2 [id number], [id number], [id number] #### [facility] [address] [place] [address] Chloride [Moles/Vol] 108 mmol/L Normal 101-111 [facility] Comment on above: Order Comment: draw packet sent. 3s aware. Performed By: #### 2 [id number], [id number] #### [facility] [address] [place] [address] CO2 [Moles/Vol] 22 mmol/L Normal 21-[address] [facility] Comment on above: Order Comment: draw packet sent. 3s aware. Performed By: #### 2 [id number], [id number], [id number] #### [facility] [address] [place] [address] Creatinine [Mass/Vol] 1.7 mg/dL High 0.5-1.3 [facility] Comment on above: Order Comment: draw packet sent. 3s aware. Performed By: #### 2 [id number], [id number], [id number] #### [facility] [address] [place] [address] Glucose [Mass/Vol] 283 mg/dL High 55-199 [facility] Comment on above: Order Comment: draw packet sent. 3s aware. Result Comment: If t his glucose result represents a fasting glucose, interpretation should refer to the following reference range: 55-99 mg/dL Performed By: #### 2 [id number], [id number], [id number] #### [facility] [address] [place] [address] Potassium [Moles/Vol] 5.7 mmol/L High 3.5-5.3 [facility] Comment on above: Order Comment: draw packet sent. 3s aware. Performed By: #### 2 [id number], [id number], [id number] #### [facility] [address] [place] [address] Sodium [Moles/Vol] 134 mmol/L Low 135-145 [facility] Comment on above: Order Comment: draw packet sent. 3s aware. Performed By: #### 2 [id number], [id number], [id number] #### [facility] [address] [place] [address] Urea nitrogen [Mass/Vol] 47 mg/dL High 5-21 [facility] Comment on above: Order Comment: draw packet sent. 3s aware. Performed By: #### 2 [id number], [id number], [id number] #### [facility] [address] [place] [address] Urea nitrogen/Creatinine [Mass ratio] 28 No Units High 10-20 [facility] Comment on above: Order Comment: draw packet sent. 3s aware. Performed By: #### 2 [id number], [id number], [id number] #### [facility] [address] [place] [address] CTA Cheston 02-04-2023 CTA Chest Exam Date/Time: [...] 370 Contrast amount in ml's: 72 Normal [facility] Capillary Glucose POCon 01-10 Glucose [Mass/Vol] 271 mg/dL High 55-99 [facility] Comment on above: Result Comment: Ty lester RN/ Performed By: #### 2 [id number] #### [facility] [address] [place] [address] Glucose [Mass/Vol] 248 mg/dL High 55-99 [facility] Comment on above: Result Comment: Ty lester RN/ Performed By: #### 2 [id number] #### [facility] [address] [place] [address] ED Clinical Summaryon 2022 ED Clinical Summary (Inserted Image. Janae ble to display) [address] [address] ED Clinical Summary Person Information Name: ALTAGRACIA CONWAY [facility] Age: 67 Years : 1955 Sex: Male Language: Finnish PCP: TIKI DOCKERY DO Marital Status: Phone: [phone] Visit Id: Visit Reason: Cough; Shortness of breath; SOB Speciality: Acuity: 1 Enc Type: Observation Med Service: Emergency Arrival: 02/03/2023 18:29:05 Discharge: LOS: 000 06:47 Checkin: 02/03/2023 18:29:05 Checkout: 02/04/2023 01:16:42 Dispo Type: [facility] EVENTS: Event Name Event Status Request [...] 00:59:07 Lab Request 02/04/2023 00:59:07 ADDRESS: [address] [id number] PHYS DOC NOTES: MEDICAL INFORMATION: Prescriptions Given: [...] units Subcu (more content not included)... Normal [facility] ED Note-Physicianon 02-05-20 ED Note-Physician Patient was [...] on-call who agreed admit the patient. Normal [facility] Comment on above: Result Comment: Elec tronically Signed By: Mainor Hamilton DO\.br\Date and Time Signed: 02/04/23 00:28 EST ED Patient Education Noteon 02-04-2023 ED Patient Education Note Normal [facility] ED Patient Summaryon 023 ED Patient Summary (Inserted Image. Janae ble to display) [place] [address] Patient Discharge Instructions Person Information Name: ALTAGRACIA CONWAY Age: 67 Years Arrival Date: 02/03/2023 18:29:05 Discharge Diagnosis: 1:Acute hypoxic respiratory failure; 2:Elevated d-dimer; 3:COPD exacerbation; 4:Chronic renal disease, stage III; 5:Type 2 diabetes mellitus; 6:HTN (hypertension); 7:History of pancreatic cancer; 8:Obesity Primary Care Physician: ITKI DOCKERY DO Provider Information Primary Provider: Danielle Vance MD Advanced Public Works Inspector:None The exam and treatment you received in the Emergency Department were for an urgent problem and are not intended as complete care. It is important that you follow up with a doctor, nurse practitioner, or physician?s sales assistant displays for ongoing care. If your symptoms become [...] opioids can be used to help relieve aatldlnl-qs-gwgyfb pain and are often prescribed following a [...] be struggling with addiction, tell your health intensive care unit registered nurse and ask for guidance or call [employer]?S National Helpline at 9-569-441-VDEL. (more content not included)... Normal [facility] [id number] 02-04-2023 HbA1c (Bld) [Mass fraction] 7.9 % High <=5.9 [facility] Comment on above: Performed By: #### 2 [id number] #### [facility] [address] [place] [address] Inpatient Patient Summaryon 02-04-2023 Inpatient Patient Summary ALTAGRACIA CONWAY :1955 Visit Date:02/03/2023 Inpatient Discharge Instructions Your Care Team Admitting Physician - Anastasiia WU, Theodora Consulting Physician - Kamini Abraham PA-C, Ten [...] Procalcitonin PT & PTT Rapid COVID Antigen ([facility]) Respiratory Panel by PCR Troponin 0 Hr. Troponin 3 Hr. Troponin 6 Hr. Troponin 9 Hr. UA With Cult Reflex CTA Chest LE Venous Duplex US Bilateral -- Results Pending -- XR Chest Single View Please visit your patient portal for your results or contact your primary care physician. 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 Discharge Vitals Temperature (Oral) 36.5 ?C Heart Rate (Monitored) 90 Respiratory Rate 18 Blood Pressure 157/61 Height 187.96 cm Weight 105.7 kg BMI 29.92 What to do next Instructions From Your Doctor Event Name Event Result Pharmacy Information Other: [facility] Medications What How Much When Instructions [...] mmol/L Low (02/04/23 06:00:00) MCH: 28.8 pg (02/03/23:01:00) Potassium Lvl: 5.7 mmol/L High ( (more content not included)... Normal [facility] Insurance Correspondence Off iceon 02-04-2023 Insurance Correspondence Office [id number]#1.00 TIFF [facility] Insurance Correspondence Office [id number]#1.00 TIFF [facility] Interdisciplinary Note - Garrison e Manageron 02-04-2023 Interdisciplinary Note - Cello Teacher CRM to room to discuss DC planning. Patient is awake, alert and oriented. Patient is from home alone. He will need transport at DC. Patient verified PCP, home DME and insurance. Patient is here as inpatient, medicare from [facility]. Patient is here for SOB. Patient is [...] provided contact, white board updated. CRM following [facility] Comment on above: Result Comment: Elec tronically Signed By: Laura Lebron\.br\Date and Time Signed: 02/04/23 11:09 EST Interdisciplinary Note - Soc ial Workeron 02-04-2023 Interdisciplinary Note - Cherry Cutter This SW responded to a consult on [address] [place] [address] regarding Advance Directives. SW assisted with explanation and completion of documentation. Patient named Reji Martinez (grand daughter) as primary agent with no alternates listed. SW provided the patient with the original AD and am additional copy. A copy was also provided to the [address] [place] [address] field secretary to have scanned into the patient chart. Patient denied any further needs at this time. SW will remain available as needed. Normal [facility] Monitor Recordon 02-04-2023 Monitor Record [id number]#1.00 TIFF Normal [facility] Monitor Record [id number]#1.00 TIFF Normal [facility] Monitor Record [id number]#1.00 TIFF Normal [facility] Procalcitoninon 02-04-2023 Procalcitonin [Mass/Vol] 0.090 ng/mL Normal .00-.50 [facility] Comment on above: Result Comment: <0.5 [...] to 24 hours. Performed By: #### 2 [id number], [id number], [id number] #### [facility] [address] [place] [address] Progress Note-Nurseon 2022 Progress Note-Nurse Pt. at the time of morning assessment told this nurse, the doctor better get his meds ordered correctly or he will leave. He said he is not putting up with this crap like last time he was here and they screwed all his meds up and he didn't get to take the correct meds for a week. Nurfse messeged the doctor and called patient PCP [...] or I am leaving and going to [facility], I take 10 everyday . Patient was [...] me the forms, I am going to [facility] . It was explained to patient that he is on o2 herer and needs it to breath, he stated I ll be fine, ill just [facility], any place but here.' Order was received. PT. was given discharge instructions and signs the discharge paperwork and also signed the AMA form. IV was removed, belongings gathered and staff wheeled patient out in wheelchair to [employer] car. Normal [facility] Progress Note-Physicianon Progress Note-Physician Basic Informatio n [...] MCV: 86.6 fL (02/03/23:01:00) MCH: 28.8 pg (02/03/23::00) MCHC: 33.2 gm/dL (02/03/23:01:00) RDW: 14.5 % High (02/03/23:01:00) Platelet: 195 E9/L (02/03/23:01:00) MPV: 8.8 fL (02/03/23:01:00) Neutro Auto: 56.9 % (02/03/23:01:00) Lymph Auto: 22.5 % (02/03/23::00) [place] Auto: 7.2 % (02/03/23::00) Eos Auto: 12.7 % High (02/03/23::00) Basophil Auto: 0.7 % (02/03/23::00) Neutro Absolute: 5.2 E9/L (02/03/23::00) Lymph Absolute: 2.1 E9/L (02/03/23::00) [place] Absolute: 0.7 E9/L (02/03/23::00) Eos Absolute: 1.2 E9/L High (02/03/23::00) Basophil Absolute: 0.1 E9/L (02/03/23::00) PT: 11.1 second(s) (02/03/23::00) INR: 1 (02/03/23::00) PTT: 40.2 second(s) High (02/03/23::00) D-Dimer: 1442 ng/mL FEU Critical (02/03/23:01:00) Glucose Lvl: 283 mg/dL High (02/04/23 06:00:00) [...] mg/dL High (02/04/23 07:54:00) POC Device SN: [id number] (02/04/23 07:54:00) POC User ID: [id number] (02/04/23 07:54:00) POC Username: GONZALO JAMES (02/04/23 07:54:00) UA Spec Desc: Clean Catch (02/03/23 20:25:00) UA Color: Yellow2 (02/03/23 20:25:00) UA Clarity: Slightly Cloudy3 Abnormal (02/03/23 20:25:00) UA Spec Grav: 1.020 (02/03/23 20:25:00) UA pH: 6.0 (02/03/23 20:25:00) UA Protein: NEGATIVE1 (02/03/23 20:25:00) UA Glucose: NEGATIVE1 (02/03/23 20:25:00) UA Ketones: NEGATIVE1 (02/03/23:25:00) UA Bili: NEGATIVE1 (02/03/23 20:25:00) UA Blood: [...] (02/03/23 19 (more content not included)... Normal [facility] Comment on above: Result Comment: Elec tronically Signed By: Tia WU, Benoit\.br\Date and Time Signed: 02/04/23 11:07 EST Respiratory Panel by PCRon 04-06-2022 Adenovirus DNA ANN+non-probe Ql (Nph) Not detected Normal [facility] Comment on above: Result Comment: Test ing was performed using nucleic acid amplification including Influenza A, Influenza A H1, Influenza A H3, Influenza B, RSV A, RSV B, Adenovirus, Human Metapneumovirus, Parainfluenza 1,2,3, and 4, Rhinovirus, Bordetella parapertussis/bronchiseptica, Bordetella holmesii, and Bordetella pertussis. Performed By: #### 1 [id number] #### [facility] [address] [place] [address] B. parapertussis DNA ANN+probe Ql (Upper resp) Not detected Normal Not Detected [facility] Comment on above: Performed By: #### 1 [id number] #### [facility] [address] [place] [address] B. pertussis DNA ANN+probe Ql (Upper resp) Not detected Normal Not Detected [facility] Comment on above: Performed By: #### 1 [id number] #### [facility] [address] [place] [address] FLUAV H1 RNA ANN+non-probe Ql (Nph) Not detected Normal [facility] Comment on above: Performed By: #### 1 [id number] #### [facility] [address] [place] [address] FLUAV H3 RNA ANN+non-probe Ql (Nph) Not detected Normal [facility] Comment on above: Performed By: #### 1 [id number] #### [facility] [address] [place] [address] FLUAV RNA ANN+non-probe Ql (Nph) Not detected Normal [facility] Comment on above: Performed By: #### 1 [id number] #### [facility] [address] [place] [address] FLUBV RNA ANN+non-probe Ql (Nph) Not detected Normal [facility] Comment on above: Performed By: #### 1 [id number] #### [facility] [address] [place] [address] Human Metapneumovirus Not detected Normal [facility] Comment on above: Result Comment: This test result should be correlated with clinical presentations and medical history by a healthcare provider to determine its clinical significance. Performed By: #### 1 [id number] #### [facility] [address] [place] [address] Parainfluenza virus 1 RNA ANN+non-probe Ql (Nph) Not detected Normal [facility] Comment on above: Performed By: #### 1 [id number] #### [facility] [address] [place] [address] Parainfluenza virus 2 RNA ANN+non-probe Ql (Nph) Not detected Normal [facility] Comment on above: Performed By: #### 1 [id number] #### [facility] [address] [place] [address] Parainfluenza virus 3 RNA ANN+non-probe Ql (Nph) Not detected Normal [facility] Comment on above: Performed By: #### 1 [id number] #### [facility] [address] [place] [address] Parainfluenza virus 4 RNA ANN+non-probe Ql (Nph) Not detected Normal [facility] Comment on above: Performed By: #### 1 [id number] #### [facility] [address] [place] [address] Resp Panel Intrl QC Pass Normal [facility] Comment on above: Performed By: #### 1 [id number] #### [facility] [address] [place] [address] Rhinovirus+Enterovirus RNA ANN+non-probe Ql (Nph) Not detected Normal [facility] Comment on above: Performed By: #### 1 [id number] #### [facility] [address] [place] [address] RSV RNA ANN+non-probe Ql (Nph) Not detected Normal [facility] Comment on above: Performed By: #### 1 [id number] #### [facility] [address] [place] [address] Troponin 6 Hr.on 02-04-2023 Troponin I.cardiac [Mass/Vol] 9.00 pg/mL Low 15.90-38.40 [facility] Comment on above: Result Comment: The 95% CI (Confidence Interval) PPV (Positive Predictive Value) for myocardial infarction in females is 38 pg/mL, in males 51 pg/mL. The results should be used in conjunction with clinical conditions of myocardial infarction. (Access High Sensitivity Troponin I Instructions For Use, [employer], October 2017) Performed By: #### 1 [id number] #### [facility] [address] [place] [id number] Troponin 9 Hr.on 02-04-2023 Troponin I.cardiac [Mass/Vol] 9.80 pg/mL Low 15.90-38.40 [facility] Comment on above: Order Comment: line packet sent @ 6640. 3s aware, [id number] Result Comment: The 95% CI (Confidence Interval) PPV (Positive Predictive Value) for myocardial infarction in females is 38 pg/mL, in males 51 pg/mL. The results should be used in conjunction with clinical conditions of myocardial infarction. (Access High Sensitivity Troponin I Instructions For Use, [employer], October 2017) Performed By: #### 1 [id number] #### [facility] [address] [place] [address] XR Chest Single Viewon 02-04 XR Chest [...] mGy = na DAP = na Normal [facility] eGFRon 02-04-2023 GFR/1.73 sq M.predicted among non-blacks MDRD (S/P/Bld) [Vol rate/Area] 44 mL/min/1.73 m2 Low >=59 [facility] Comment on above: Order Comment: Order added by Discern Expert. Result Comment: Manager Relocation amy kidney disease could be indicated at eGFR's of less than 60 mL/min/1.73m2. Kidney failure is indicated at less than 15 mL/min/1.73m2. Performed By: #### 2 [id number] #### [facility] [address] [place] [address] Auto Diffon 02-03-2023 Basophils/100 WBC (Bld) 0.7 % Normal 0.0-2.0 [facility] Comment on above: Order Comment: Order Added by Discern Expert. Performed By: #### 2 [id number] #### [facility] [address] [place] [address] Basophils/Leukocytes Auto (Bld) [Pure # fraction] 0.1 E9/L Normal 0.0-0.2 [facility] Comment on above: Order Comment: Order Added by Discern Expert. Performed By: #### 2 [id number] #### [facility] [address] [place] [address] Eosinophils/100 WBC (Bld) 12.7 % High 0.0-8.0 [facility] Comment on above: Order Comment: Order Added by Discern Expert. Performed By: #### 2 [id number] #### [facility] [address] [place] [address] Eosinophils/Leukocytes Auto (Bld) [Pure # fraction] 1.2 E9/L High 0.0-0.5 [facility] Comment on above: Order Comment: Order Added by Discern Expert. Performed By: #### 2 [id number] #### [facility] [address] [place] [address] Lymphocytes/100 WBC (Bld) 22.5 % Normal 14.0-50.0 [facility] Comment on above: Order Comment: Order Added by Discern Expert. Performed By: #### 2 [id number] #### [facility] [address] [place] [address] Lymphocytes/Leukocytes Auto (Bld) [Pure # fraction] 2.1 E9/L Normal 1.0-4.0 [facility] Comment on above: Order Comment: Order Added by Discern Expert. Performed By: #### 2 [id number] #### [facility] [address] [place] [address] Monocytes/100 WBC (Bld) 7.2 % Normal 4.0-14.0 [facility] Comment on above: Order Comment: Order Added by Discern Expert. Performed By: #### 2 [id number] #### [facility] [address] [place] [address] Monocytes/Leukocytes Auto (Bld) [Pure # fraction] 0.7 E9/L Normal 0.2-1.0 [facility] Comment on above: Order Comment: Order Added by Discern Expert. Performed By: #### 2 [id number] #### [facility] [address] [place] [address] Neutrophils/100 WBC (Bld) 56.9 % Normal 36.0-75.0 [facility] Comment on above: Order Comment: Order Added by Discern Expert. Performed By: #### 2 [id number] #### [facility] [address] [place] [address] Neutrophils/Leukocytes Auto (Bld) [Pure # fraction] 5.2 E9/L Normal 2.0-7.5 [facility] Comment on above: Order Comment: Order Added by Discern Expert. Performed By: #### 2 [id number] #### [facility] [address] [place] [address] BMPon 02-03-2023 Creatinine [Mass/Vol] 1.7 mg/dL High 0.5-1.3 [facility] Comment on above: Performed By: #### 2 [id number] #### [facility] [address] [place] [address] Urea nitrogen [Mass/Vol] 55 mg/dL High 5-21 [facility] Comment on above: Performed By: #### 2 [id number] #### [facility] [address] [place] [address] Urea nitrogen/Creatinine [Mass ratio] 32 No Units High 10-20 [facility] Comment on above: Performed By: #### 2 [id number] #### [facility] [address] [place] [address] Anion gap [Moles/Vol] 10 mmol/L Normal 6-16 [facility] Comment on above: Performed By: #### 2 [id number] #### [facility] [address] [place] [address] Calcium [Mass/Vol] 9.4 mg/dL Normal 8.9-11.1 [facility] Comment on above: Performed By: #### 2 [id number] #### [facility] [address] [place] [address] Chloride [Moles/Vol] 107 mmol/L Normal 101-111 [facility] Comment on above: Performed By: #### 2 [id number] #### [facility] [address] [place] [address] CO2 [Moles/Vol] 23 mmol/L Normal 21-[address] [facility] Comment on above: Performed By: #### 2 [id number] #### [facility] [address] [place] [address] Glucose [Mass/Vol] 170 mg/dL Normal 55-199 [facility] Comment on above: Result Comment: If t his glucose result represents a fasting glucose, interpretation should refer to the following reference range: 55-99 mg/dL Performed By: #### 2 [id number] #### [facility] [address] [place] [address] Potassium [Moles/Vol] 5.2 mmol/L Normal 3.5-5.3 [facility] Comment on above: Performed By: #### 2 [id number] #### [facility] [address] [place] [address] Sodium [Moles/Vol] 135 mmol/L Normal 135-145 [facility] Comment on above: Performed By: #### 2 [id number] #### [facility] [address] [place] [address] BNPon 02-03-2023 Natriuretic peptide B (Bld) [Mass/Vol] 21 pg/mL Normal 5-80 [facility] Comment on above: Performed By: #### 2 [id number] #### [facility] [address] [place] [address] CBC w/ Auto Diffon Erythrocyte distribution width (RBC) [Ratio] 14.5 % High 10.9-14.2 [facility] Comment on above: Performed By: #### 2 [id number] #### [facility] [address] [place] [address] Hematocrit (Bld) [Volume fraction] 34.6 % Low 37.7-49.0 [facility] Comment on above: Performed By: #### 2 [id number] #### [facility] [address] [place] [address] Hemoglobin (Bld) [Mass/Vol] 11.5 g/dL Low 13.5-17.5 [facility] Comment on above: Performed By: #### 2 [id number] #### [facility] [address] [place] [address] MCH (RBC) [Entitic mass] 28.8 pg Normal 27.0-34.0 [facility] Comment on above: Performed By: #### 2 [id number] #### [facility] [address] [place] [address] MCHC (RBC) [Mass/Vol] 33.2 g/dL Normal 31.4-36.0 [facility] Comment on above: Performed By: #### 2 [id number] #### [facility] [address] [place] [address] MCV (RBC) [Entitic vol] 86.6 fL Normal 80.0-100.0 [facility] Comment on above: Performed By: #### 2 [id number] #### [facility] [address] [place] [address] Platelet mean volume (Bld) [Entitic vol] 8.8 fL Normal 6.4-10.8 [facility] Comment on above: Performed By: #### 2 [id number] #### [facility] [address] [place] [address] Platelets (Bld) [#/Vol] 195.0 E9/L Normal 150.0-500.0 [facility] Comment on above: Performed By: #### 2 [id number] #### [facility] [address] [place] [address] RBC (Bld) [#/Vol] 4.0 E12/L Low 4.3-5.9 [facility] Comment on above: Performed By: #### 2 [id number] #### [facility] [address] [place] [address] WBC corrected for nucl RBC Auto (Bld) [#/Vol] 9.2 E9/L Normal 4.0-11.[address] [facility] Comment on above: Performed By: #### 2 [id number] #### [facility] [address] [place] [address] Capillary Glucose POCon 11 Glucose [Mass/Vol] 157 mg/dL High 55-99 [facility] Comment on above: Performed By: #### 2 [id number] #### [facility] [address] [place] [address] Consent for Treatmenton 01-10 Consent for Treatment [id number] IFF Normal [facility] D-Dimeron 02-03-2023 Fibrin D-dimer FEU (PPP) [Mass/Vol] 1442 [id number] Abnormal 215-500 [facility] Comment on above: Result Comment: Resu [...] infections Liver cirrhosis Performed By: #### 2 [id number] #### [facility] [address] [place] [address] ED Note-Nursingon 02-03-2023 ED Note-Nursing at this time attempt ing to wean off o2 will reevaluate Normal [facility] Monitor Recordon 02-03-2023 Monitor Record [id number]#[id number] TIFF Normal [facility] PT & PTTon 02-03-2023 aPTT Coag (PPP) [Time] 40.2 second(s) High 25.1-36.5 [facility] Comment on above: Result Comment: Para meter [...] the same coagulation reagent and instrumentation as [facility]. Currently there are no coagulation studies available worldwide for children to 14 days, and no normal ranges. Heparin therapeutic range (represented by Anti-Factor Xa activity of 0.2 - 0.4 U/mL) corresponds to PTT of 56.6 - 109.0 sec. Performed By: #### 2 [id number] #### [facility] [address] [place] [address] INR Coag (PPP) [Relative time] 1.0 {INR} Invalid Interpretation Code [facility] Comment on above: Result Comment: INR results are specifically intended to assess patients stabilized on long-term Anticoagulation therapy suggested INR?s ?Less Intensive Anticoagulation? 2.0 ? 3.0 Conventional Range 3.0 ? 4.5 Performed By: #### 2 [id number] #### [facility] [address] [place] [address] PT Coag (PPP) [Time] 11.1 second(s) Normal 9.4-12.5 [facility] Comment on above: Result Comment: 15 d [...] the same coagulation reagent and instrumentation as [facility]. Currently there are no coagulation studies available worldwide for children to 14 days, and no normal ranges. Performed By: #### 2 [id number] #### [facility] [address] [place] [address] Pre-Arrival Noteon 3 Pre-Arrival Note Pre-Arrival Summary Name: , RYAN Current Date: 02/03/2023 18:33:26 EST Gender: Male Date of : Age: 67 Pre-Arrival Type: EMS ETA: 02/03/2023 18:50:00 EST Primary Care Physician: Presenting Problem: SOB Pre-Arrival User: Cheli Alves RN Referring Source: Location: [place] Completion Date/Time: 02/03/2023 18:18:00 [facility] Emergency Department Pre-Hospital Report Form Vital Signs: BP- 157/76, Pulse- 90. RR-23, SPO2- 92% on RA Pre-Hospital Report: Treatment in Route: NEb Response to Treatment: Misc. Issues: Normal [facility] RAD - Preliminary Cat Scan R eporton 02-03-2023 RAD - Preliminary Cat Scan Report [id number]#1.00 TIFF Normal [facility] Rapid COVID Antigen ([facility])on 02-03-2023 Rapid COV Int NEG Ctl Pass Normal [facility] Comment on above: Performed By: #### 2 [id number] #### [facility] [address] [place] [address] Rapid COV Int POS Ctl Pass Normal [facility] Comment on above: Performed By: #### 2 [id number] #### [facility] [address] [place] [address] SARS-CoV+SARS-CoV-2 (COVID-19) Ag IA.rapid Ql (Resp) Not detected Normal Not Detected [facility] Comment on above: Result Comment: The [employer]? System for Rapid Detection of SARS-CoV-2 is [...] viruses or pathogens; and, in the [facility], this test is only authorized for the duration of the declaration that circumstances exist justifying the authorization of emergency use of in vitro diagnostics for detection and/or diagnosis of the virus that causes COVID-19 under Section 564(b)(1) of the Act, 21 U.S.C. ? 360bbb-3(b)(1), unless the authorization is terminated or revoked sooner. Performed By: #### 2 [id number] #### [address] [address] Troponin 0 Hr.on 02-03-2023 Troponin I.cardiac [Mass/Vol] 7.80 pg/mL Low 15.90-38.40 [facility] Comment on above: Result Comment: The 95% CI (Confidence Interval) PPV (Positive Predictive Value) for myocardial infarction in females is 38 pg/mL, in males 51 pg/mL. The results should be used in conjunction with clinical conditions of myocardial infarction. (Access High Sensitivity Troponin I Instructions For Use, [employer], October 2017) Performed By: #### 2 [id number] #### [facility] [address] [place] [address] Troponin 3 Hr.on 02-03-2023 Troponin I.cardiac [Mass/Vol] 9.10 pg/mL Low 15.90-38.40 [facility] Comment on above: Result Comment: The 95% CI (Confidence Interval) PPV (Positive Predictive Value) for myocardial infarction in females is 38 pg/mL, in males 51 pg/mL. The results should be used in conjunction with clinical conditions of myocardial infarction. (Access High Sensitivity Troponin I Instructions For Use, [employer], October 2017) Performed By: #### 1 [id number] #### [facility] [address] [place] [address] UA With Cult Reflexon 2022 Color (U) YELLOW Normal Yellow [facility] Comment on above: Performed By: #### 1 [id number] #### [facility] [address] [place] [address] Glucose (U) [Mass/Vol] Negative Normal Negative [facility] Comment on above: Performed By: #### 1 [id number] #### [facility] [address] [place] [address] Ketones Ql (U) Negative Normal Negative [facility] Comment on above: Performed By: #### 1 [id number] #### [facility] [address] [place] [address] UA Blood TRACE Abnormal Negative [facility] Comment on above: Performed By: #### 1 [id number] #### [facility] [address] [place] [address] UA Amorph Nisha Present Normal [facility] Comment on above: Performed By: #### 1 [id number] #### [facility] [address] [place] [address] UA Bacteria TRACE Normal Trace [facility] Comment on above: Performed By: #### 1 [id number] #### [facility] [address] [place] [address] UA Clarity SL CLOUDY Abnormal Clear [facility] Comment on above: Performed By: #### 1 [id number] #### [facility] [address] [place] [address] UA Leuk Est 1+ Abnormal Negative [facility] Comment on above: Performed By: #### 1 [id number] #### [facility] [address] [place] [address] UA Nitrite Negative Normal Negative [facility] Comment on above: Performed By: #### 1 [id number] #### [facility] [address] [place] [address] UA pH 6.0 Invalid Interpretation Code 5.0-9.0 [facility] Comment on above: Performed By: #### 1 [id number] #### [facility] [address] [place] [address] UA Protein Negative Normal Negative [facility] Comment on above: Performed By: #### 1 [id number] #### [facility] [address] [place] [address] UA RBC 0-3 Normal 0-3 [facility] Comment on above: Performed By: #### 1 [id number] #### [facility] [address] [place] [address] UA Spec Desc Clean Catch Normal [facility] Comment on above: Performed By: #### 1 [id number] #### [facility] [address] [place] [address] UA Spec Grav 1.020 Invalid Interpretation Code 1.005-1.030 [facility] Comment on above: Performed By: #### 1 [id number] #### [facility] [address] [place] [address] UA Squam Epithelial 0-2 Normal 0-2 [facility] Comment on above: Performed By: #### 1 [id number] #### [facility] [address] [place] [address] UA Urobilinogen 0.2 EU/dL Normal 0.0-1.[address] [facility] Comment on above: Performed By: #### 1 [id number] #### [facility] [address] [place] [address] UA WBC 16-25 Abnormal 0-5 [facility] Comment on above: Performed By: #### 1 [id number] #### [facility] [address] [place] [address] Urobilinogen (U) [Mass/Vol] Negative Normal Negative [facility] Comment on above: Performed By: #### 1 [id number] #### [facility] [address] [place] [address] eGFRon 02-03-2023 GFR/1.73 sq M.predicted among non-blacks MDRD (S/P/Bld) [Vol rate/Area] 44 mL/min/1.73 m2 Low >=59 [facility] Comment on above: Order Comment: Order added by Discern Expert. Result Comment: Manager Relocation amy kidney disease could be indicated at eGFR's of less than 60 mL/min/1.73m2. Kidney failure is indicated at less than 15 mL/min/1.73m2. Performed By: #### 2 [id number] #### [facility] [address] [place] [address] CNOVon 01-07-2023 CNOV Office Visit (PAINLN ) ALTAGRACIA CONWAY ([id number]) 1955 M [facility] Date Time Provider Department 01/07/23 12:00 PM CHELSEY VANN PAINLN During your visit today, we recorded [...] NEC W/O COMA W HEPAT C ACUT [[id number]] 01/22/2002 Unspecified Senile Cataract [H25.9] 11/02/2009 Type [...] Encounter Status:Closed by CHELSEY VANN on 01/07/23 [facility] Tae 01-03-2023 MATTHEW Telephone (PAINLN) ALTAGRACIA CONWAY ([id number]) 1955 M [facility] Date Time Provider Department 01/03/23 JORDAN ORTEGA [...] transfer to ext [phone], LN PMD, Crista Templeton Kristen Pitts, LABEL DRIER 01/03/2023 1:14 PM Signed Spoke with pt, confirmed appt on 01/07/2023 @ [address] in [address] office for a SCS adjustment. 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 Email sent to [employer] with appt info. Allergies As of Date: [...] NEC W/O COMA W HEPAT C ACUT [[id number]] 01/22/2002 Unspecified Senile Cataract [H25.9] 11/02/2009 Type [...] Status:Closed by KRISTEN TEMPLETON on 01/03/23 [facility] [place] 12-11-2022 Parathyrin.intact [Mass/Vol] 42 pg/mL Invalid Interpretation Code 15-65 [facility] Comment on above: Result Comment: Perf ormed at: [facility] [address] [id number] Sam Performed By: #### 1 [id number] #### [facility] [address] [place] [address] CBC w/Indiceson 12-10-2022 Erythrocyte distribution width (RBC) [Ratio] 14.0 % Normal 10.9-14.2 [facility] Comment on above: Performed By: #### 1 [id number] #### [facility] [address] [place] [address] Hematocrit (Bld) [Volume fraction] 34.5 % Low 37.7-49.0 [facility] Comment on above: Performed By: #### 1 [id number] #### [facility] [address] [place] [address] Hemoglobin (Bld) [Mass/Vol] 11.7 g/dL Low 13.5-17.5 [facility] Comment on above: Performed By: #### 1 [id number] #### [facility] [address] [place] [address] MCH (RBC) [Entitic mass] 29.1 pg Normal 27.0-34.0 [facility] Comment on above: Performed By: #### 1 [id number] #### [facility] [address] [place] [address] MCHC (RBC) [Mass/Vol] 33.9 g/dL Normal 31.4-36.0 [facility] Comment on above: Performed By: #### 1 [id number] #### [facility] [address] [place] [address] MCV (RBC) [Entitic vol] 85.6 fL Normal 80.0-100.0 [facility] Comment on above: Performed By: #### 1 [id number] #### [facility] [address] [place] [address] Platelet mean volume (Bld) [Entitic vol] 8.3 fL Normal 6.4-10.8 [facility] Comment on above: Performed By: #### 1 [id number] #### [facility] [address] [place] [address] [place] [address] Platelets (Bld) [#/Vol] 223.0 E9/L Normal 150.0-500.0 [facility] Comment on above: Performed By: #### 1 [id number] #### [facility] [address] [place] [address] RBC (Bld) [#/Vol] 4.0 E12/L Low 4.3-5.9 [facility] Comment on above: Performed By: #### 1 [id number] #### [facility] [address] [place] [address] WBC corrected for nucl RBC Auto (Bld) [#/Vol] 8.7 E9/L Normal 4.0-11.[address] [facility] Comment on above: Performed By: #### 1 [id number] #### [facility] [address] [place] [address] CHEMISTRYOrdered By: SYSTEM SYSTEM on 12-10-2022 25-hydroxyvitamin D3 [Mass/Vol] 43.2 ng/mL Normal 30.0 - 100.0 ng/mL [facility] Comment on above: Interpretive Data: Vitamin D deficiency has been defined as a level of serum 25-OH vitamin D less than 20 ng/mL (1,2) by the [place] [employer] and an Endocrine Society practice guideline. The Endocrine Society further defined vitamin D insufficiency as a level between 21 and 29 ng/mL (2). 1. IOM ([place] [employer]). 2010. Dietary reference intakes for [...] 11. 1 mg/dL [facility] Chloride [Moles/Vol] 109 mmol/L Normal 101 - 1 11 mmol/L [facility] CO2 [Moles/Vol] 22 mmol/L Normal 21 - 31 mmol/L [facility] Creatinine [Mass/Vol] 1.7 mg/dL High 0.5 - 1.3 mg/dL [facility] GFR/1.73 sq M.predicted among non-blacks MDRD (S/P/Bld) [Vol rate/Area] 44 mL/min/1.73 m2 Low >=59mL/min/1 .73 m2 [facility] Comment on above: Interpretive Data: C hronic kidney disease could be indicated at eGFR's of less than 60 mL/min/1.73m2. Kidney failure is indicated at less than 15 mL/min/1.73m2. Glucose [Mass/Vol] 229 mg/dL High 55 - 199 mg/dL [facility] Rem[facility] Comment on above: Interpretive Data: I f this glucose result represents a fasting glucose, interpretation should refer to the following reference range: 55-99 mg/dL Magnesium [Mass/Vol] 2.2 mg/dL Normal 1.3 - 2 .4 mg/dL [facility] Phosphate [Mass/Vol] 3.0 mg/dL Normal 1.9 - 4 .6 mg/dL [facility] Potassium [Moles/Vol] 5.3 mmol/L Normal 3.5 - 5.3 mmol/L [facility] Sodium [Moles/Vol] 138 mmol/L Normal 135 - 145 mmol/L [facility] Urate [Mass/Vol] 6.4 mg/dL Normal 2.2 - 7.4 mg/dL [facility] Urea nitrogen [Mass/Vol] 55 mg/dL High 5 - 21 mg/dL [facility] Remisol Urea nitrogen/Creatinine [Mass ratio] 32 mg/mg High 10 - 20 [facility] Remisol CHEMISTRYOrdered By: Edel jasso on 12-10-2022 Albumin Elph (U) [Mass fraction] 17.5 mg/dL Invalid Interpretation Code [facility] Comment on above: Interpretive Data: T felix reference range and other method performance specifications have not been established for this test; results should be integrated into the clinical context for interpretation. Creatinine (U) [Mass/Vol] 85.4 mg/dL Invalid Interpretation Code [facility] Comment on above: Interpretive Data: T he reference range and other method performance specifications have not been established for this test; results should be integrated into the clinical context for interpretation. U Prot/Creat Ratio 204.90 mg/gm Cr High 0.00 - 200.00 mg/gm Cr [facility]isol Consent for Treatmenton Consent for Treatment [id number] D:127 Normal [facility] HEMATOLOGYOrdered By: Mary Landers on 12-10-2022 Erythrocyte distribution width (RBC) [Ratio] 14.0 % Normal 10.9 - 14.2 % FT HemeAutoSS Hematocrit (Bld) [Volume fraction] 34.5 % Low 37.7 - 49.0 % FT HemeAutoSS Hemoglobin (Bld) [Mass/Vol] 11.7 g/dL Low 13.5 - 17.5 gm/dL FT HemeAutoSS MCH (RBC) [Entitic mass] 29.1 pg Normal 27.0 - 34.0 pg FT HemeAutoSS MCHC (RBC) [Mass/Vol] 33.9 g/dL Normal 31.4 - 36.0 gm/dL [facility] HemeAutoSS MCV (RBC) [Entitic vol] 85.6 fL Normal 80.0 - 100.0 fL FT HemeAutoSS Platelet mean volume (Bld) [Entitic vol] 8.3 fL Normal 6.4 - 10.8 fL FT HemeAutoSS Platelets (Bld) [#/Vol] 223.0 E9/L Normal 150. 0 - 500.0 E9/L FT HemeAutoSS RBC (Bld) [#/Vol] 4.0 E12/L Low 4.3 - 5.9 E12/L FT HemeAutoSS WBC corrected for nucl RBC Auto (Bld) [#/Vol] 8.7 E9/L Normal 4.0 - 11.0 E9/L [facility] HemeAutoSS Magnesiumon 12-10-2022 Magnesium [Mass/Vol] 2.2 mg/dL Normal 1.3-2.4 [facility] Comment on above: Performed By: #### 1 [id number] #### [facility] [address] [place] [address] Physician Orderon 12-10-2022 Physician Order [id number] 0CD:127 Normal [facility] Renal Panelon 12-10-2022 Albumin [Mass/Vol] 4.4 g/dL Normal 3.3-5.0 [facility] Comment on above: Performed By: #### 1 [id number] #### [facility] [address] [place] [address] Anion gap [Moles/Vol] 12 mmol/L Normal 6-16 [facility] Comment on above: Performed By: #### 1 [id number] #### [facility] [address] [place] [address] Calcium [Mass/Vol] 9.8 mg/dL Normal 8.9-11.1 [facility] Comment on above: Performed By: #### 1 [id number] #### [facility] [address] [place] [address] Chloride [Moles/Vol] 109 mmol/L Normal 101-111 [facility] Comment on above: Performed By: #### 1 [id number] #### [facility] [address] [place] [address] CO2 [Moles/Vol] 22 mmol/L Normal 21-[address] [facility] Comment on above: Performed By: #### 1 [id number] #### [facility] [address] [place] [address] Creatinine [Mass/Vol] 1.7 mg/dL High 0.5-1.3 [facility] Comment on above: Performed By: #### 1 [id number] #### [facility] [address] [place] [address] Glucose [Mass/Vol] 229 mg/dL High 55-199 [facility] Comment on above: Result Comment: If t his glucose result represents a fasting glucose, interpretation should refer to the following reference range: 55-99 mg/dL Performed By: #### 1 [id number] #### [facility] [address] [place] [address] Phosphate [Mass/Vol] 3.0 mg/dL Normal 1.9-4.6 [facility] Comment on above: Performed By: #### 1 [id number] #### [facility] [address] [place] [address] Potassium [Moles/Vol] 5.3 mmol/L Normal 3.5-5.3 [facility] Comment on above: Performed By: #### 1 [id number] #### [facility] [address] [place] [address] Sodium [Moles/Vol] 138 mmol/L Normal 135-145 [facility] Comment on above: Performed By: #### 1 [id number] #### [facility] [address] [place] [address] Urea nitrogen [Mass/Vol] 55 mg/dL High 5-21 [facility] Comment on above: Performed By: #### 1 [id number] #### [facility] [address] [place] [address] Urea nitrogen/Creatinine [Mass ratio] 32 No Units High 10-20 [facility] Comment on above: Performed By: #### 1 [id number] #### [facility] [address] [place] [address] U Protein/Creat Ratioon 10-0 2-2022 Albumin Elph (U) [Mass fraction] 17.5 mg/dL Invalid Interpretation Code [facility] Comment on above: Result Comment: The reference range and other method performance specifications have not been established for this test; results should be integrated into the clinical context for interpretation. Performed By: #### 1 [id number], [id number] ####[facility] [address] [place] [address] Creatinine (U) [Mass/Vol] 85.4 mg/dL Invalid Interpretation Code [facility] Comment on above: Result Comment: The reference range and other method performance specifications have not been established for this test; results should be integrated into the clinical context for interpretation. Performed By: #### 1 [id number], [id number] ####[facility] [address] [place] [address] U Prot/Creat Ratio 204.90 mg/gm Cr High .00-200.00 [facility] Comment on above: Performed By: #### 1 [id number], [id number] ####[facility] [address] [place] [address] URINALYSISOrdered By: Mary Bingham on 12-10-2022 Bacteria [...] AM) Normal Negative [facility] UA Auto SS [place]ap[place].plasma/[place]. RBC (Bld) [Mass ratio] 0-3 /HPF Normal [...] AM) Invalid Interpretation Code 1.005 - 1.030 [facility] UA Auto SS UA Spec Desc Clean Catch (12/10/22 9:17 AM) Normal [facility] UA Auto SS Urobilinogen Qn (U) 0.1196365 {Arina'U}/dL Normal 0.0 - 1.0 EU/dL [facility] UA Auto SS WBC Auto Ql (U) Trace *ABN* (12/10/22 9:17 AM) Invalid Interpretation Code Negative [facility] UA Auto SS WBC LM.HPF (Urine sed) [#/Area] 0-5 /HPF Normal 0-5/HPF [facility] UA Auto SS Uric Acidon 12-10-2022 Urate [Mass/Vol] 6.4 mg/dL Normal 2.2-7.4 [facility] Comment on above: Performed By: #### 1 [id number] #### [facility] [address] [place] [address] Urinalysison 12-10-2022 Bacteria LM Ql (Urine sed) TRACE Normal Trace [facility] Comment on above: Performed By: #### 1 [id number], [id number] #### [facility] [address] [place] [address] Bilirubin Ql (U) Negative Normal Negative [facility] Comment on above: Performed By: #### 1 [id number], [id number] #### [facility] [address] [place] [address] Clarity (U) CLEAR Normal Clear [facility] Comment on above: Performed By: #### 1 [id number], [id number] #### [facility] [address] [place] [address] Color (U) YELLOW Normal Yellow [facility] Comment on above: Performed By: #### 1 [id number], [id number] #### [facility] [address] [place] [address] Epithelial cells.squamous LM.HPF (Urine sed) [#/Area] 0-2 Normal 0-2 [facility] Comment on above: Performed By: #### 1 [id number], [id number] #### [facility] [address] [place] [address] Glucose Test strip (U) [Mass/Vol] 1+ Abnormal Negative [facility] Comment on above: Performed By: #### 1 [id number], [id number] #### [facility] [address] [place] [address] Hemoglobin Ql (U) TRACE Abnormal Negative [facility] Comment on above: Performed By: #### 1 [id number], [id number] #### [facility] [address] [place] [address] Ketones (U) [Mass/Vol] Negative Normal Negative [facility] Comment on above: Performed By: #### 1 [id number], [id number] #### [facility] [address] [place] [address] Wapella.plasma/[place]. RBC (Bld) [Mass ratio] 0-3 Normal 0-[address] [facility] Comment on above: Performed By: #### 1 [id number], [id number] #### [facility] [address] [place] [address] Mucus Ql (Urine sed) TRACE Normal [facility] Comment on above: Performed By: #### 1 [id number], [id number] #### [facility] [address] [place] [address] Nitrite Ql (U) Negative Normal Negative [facility] Comment on above: Performed By: #### 1 [id number], [id number] #### [facility] [address] [place] [address] pH (U) 5.5 [pH] Invalid Interpretation Code 5.0-9.0 [facility] Comment on above: Performed By: #### 1 [id number], [id number] #### [facility] [address] [place] [address] Protein (U) [Mass/Vol] Negative Normal Negative [facility] Comment on above: Performed By: #### 1 [id number], [id number] #### [facility] [address] [place] [address] Specific gravity (U) [Rel density] 1.015 Invalid Interpretation Code 1.005-1.030 [facility] Comment on above: Performed By: #### 1 [id number], [id number] #### [facility] [address] [place] [address] Type of Urine collection method Clean Catch Normal [facility] Comment on above: Performed By: #### 1 [id number], [id number] #### [facility] [address] [place] [address] Urobilinogen Qn (U) 0.2 {Arina'U}/dL Normal 0.0-1.0 [facility] Comment on above: Performed By: #### 1 [id number], [id number] #### [facility] [address] [place] [address] WBC Auto Ql (U) TRACE Abnormal Negative [facility] Comment on above: Performed By: #### 1 [id number], [id number] #### [facility] [address] [place] [address] WBC LM.HPF (Urine sed) [#/Area] 0-5 Normal 0-5 [facility] Comment on above: Performed By: #### 1 [id number], [id number] #### [facility] [address] [place] [address] Vitamin D 25 Hydroxyon 12-10 25-hydroxyvitamin D3 [Mass/Vol] 43.2 ng/mL Normal 30.0-100.0 [facility] Comment on above: Result Comment: Vit webster D deficiency has been defined as a level of serum 25-OH vitamin D less than 20 ng/mL (1,2) by the [place] of Medicine and an Endocrine Society practice guideline. The Endocrine Society further defined vitamin D insufficiency as a level between 21 and 29 ng/mL (2). 1. IOM ([place] of Medicine). 2010. Dietary reference intakes for calcium and D. [place]: The National Academies Press. 2. Keegan MF, Clarence MANCILLA, Marika THOMAS et al. Evaluation, treatment, and prevention of vitamin D deficiency: an Endocrine Society clinical practice guideline. JCEM. 2010; 96 (7):1911-30. Performed By: #### 1 [id number] #### [facility] [address] [place] [address] eGFRon 12-10-2022 GFR/1.73 sq M.predicted among non-blacks MDRD (S/P/Bld) [Vol rate/Area] 44 mL/min/1.73 m2 Low >=59 [facility] Comment on above: Order Comment: Order added by Discern Expert. Result Comment: Manager Relocation amy kidney disease could be indicated at eGFR's of less than 60 mL/min/1.73m2. Kidney failure is indicated at less than 15 mL/min/1.73m2. Performed By: #### 1 [id number] #### [facility] [address] [place] [address] CNOVon 11-20-2022 CNOV Office Visit (CLARIBEL ) ALTAGRACIA CONWAY ([id number]) 1955 M [facility] Date Time Provider Department 11/20/22 11:00 AM [...] Percutaneous SCS lead implantation x 2 and BIOSAFEis adaptiveStim system implantable pulse generator, on 11/13/22 [...] Noted Res (more content not included)... Normal [facility] Alanine aminotransferase [En zymatic activity/volume] in Serum or PlasmaOrdered By: Margaret Delgado on 11-19-2022 ALT [Catalytic activity/Vol] 43 U/L 7-52 [facility] Albumin [Mass/volume] in Ser um or Plasma by Bromocresol green (BCG) dye binding methoOrdered By: Margaret Delgado on 11-19-2022 Albumin BCG dye [Mass/Vol] 4.0 g/dL 3.5-5.7 [facility] Alkaline phosphatase [Enzyma tic activity/volume] in Serum or PlasmaOrdered By: Margaret Delgado on 11-19-2022 ALP [Catalytic activity/Vol] 209 U/L 34-104 [facility] Aspartate aminotransferase [ Enzymatic activity/volume] in Serum or PlasmaOrdered By: Margaret Delgado on 11-19-2022 AST [Catalytic activity/Vol] 40 U/L 13-39 [facility] Basophils Auto (Bld) [#/Vol] Ordered By: Margaret Delgado on 11-19-2022 Basophils (Bld) [#/Vol] 0.1 10*3/uL 0.0-0.2 [facility] Basophils/100 WBC Auto (Bld) Ordered By: Margaret Delgado on 11-19-2022 Basophils/100 WBC (Bld) 0.8 % . [facility] Bilirubin.total [Mass/volume ] in Serum or PlasmaOrdered By: Margaret Delgado on 11-19-2022 Bilirubin [Mass/Vol] 0.3 mg/dL 0.3-1.0 [facility] Calcium [Mass/volume] in Ser um or PlasmaOrdered By: Margaret Delgado on 11-19-2022 Calcium [Mass/Vol] 9.4 mg/dL 8.6-10.3 [facility] Carbon dioxide, total [Moles /volume] in Serum or PlasmaOrdered By: Margaret Delgado on 11-19-2022 CO2 [Moles/Vol] 25.6 mmol/L 21.0-31.0 [facility] Chloride [Moles/volume] in S iqra or PlasmaOrdered By: Margaret Delgado on 11-19-2022 Chloride [Moles/Vol] 104 mmol/L 98-107 [facility] Creatinine [Mass/volume] in Serum or PlasmaOrdered By: Margaret Delgado on 11-19-2022 Creatinine [Mass/Vol] 1.79 mg/dL 0.70-1.30 [facility] Eosinophils Auto (Bld) [#/Vo l]Ordered By: Margaret Delgado on 11-19-2022 Eosinophils (Bld) [#/Vol] 0.5 10*3/uL 0.0-0.45 [facility] Eosinophils/100 WBC Auto (Bl d)Ordered By: Margaret Delgado on 11-19-2022 Eosinophils/100 WBC (Bld) 5.7 % . [facility] Erythrocyte distribution wid th Auto (RBC) [Ratio]Ordered By: Margaret Delgado on 11-19-2022 Erythrocyte distribution width (RBC) [Ratio] 14.0 % 12.0-14.8 [facility] Globulin Calc (S) [Mass/Vol] Ordered By: Margaret Delgado on 11-19-2022 Globulin (S) [Mass/Vol] 3.4 g/dL [facility] Glucose [Mass/volume] in Ser um or PlasmaOrdered By: Margaret Delgado on 11-19-2022 Glucose [Mass/Vol] 157 mg/dL 70-100 [facility] Comment on above: ADA recommended refe rence rangeRandom Glucose Reference Range is dependent on time and content of last meal. Glucose of more than 200 mg/dL in a nonstressed, ambulatory subject supports the diagnosis of Diabetes Mellitus. Hematocrit Auto (Bld) [Volum e fraction]Ordered By: Margaret Delgado on 11-19-2022 Hematocrit (Bld) [Volume fraction] 32.6 % 38.8-50.0 [facility] Hemoglobin [Mass/volume] in BloodOrdered By: Margaret Delgado on 11-19-2022 Hemoglobin (Bld) [Mass/Vol] 11.0 g/dL 13.0-17.0 [facility] Leukocytes [#/volume] correc lamont for nucleated erythrocytes in Blood by Automated counOrdered By: Margaret Delgado on 11-19-2022 WBC corrected for nucl RBC Auto (Bld) [#/Vol] 8.9 10*3/uL 4.1-10.5 [facility] Lymphocytes Auto (Bld) [#/Vo l]Ordered By: Margaret Delgado on 11-19-2022 Lymphocytes (Bld) [#/Vol] 1.7 10*3/uL 1.00-4.8 [facility] Lymphocytes/100 WBC Auto (Bl d)Ordered By: Margaret Delgado on 11-19-2022 Lymphocytes/100 WBC (Bld) 18.9 % . [facility] MCH Auto (RBC) [Entitic mass ]Ordered By: Margaret Delgado on 11-19-2022 MCH (RBC) [Entitic mass] 29.5 pg 27.5-35.2 [facility] MCHC Auto (RBC) [Mass/Vol]Or dered By: Margaret Delgado on 11-19-2022 MCHC (RBC) [Mass/Vol] 33.8 g/dL 32.5-35.6 [facility] MCV Auto (RBC) [Entitic vol] Ordered By: Margaret Delgado on 11-19-2022 MCV (RBC) [Entitic vol] 87.3 fL 83.5-101 [facility] Monocytes Auto (Bld) [#/Vol] Ordered By: Margaret Delgado on 11-19-2022 Monocytes (Bld) [#/Vol] 0.6 10*3/uL 0.0-0.8 [facility] Monocytes/100 WBC Auto (Bld) Ordered By: Margaret Delgado on 11-19-2022 Monocytes/100 WBC (Bld) 6.9 % . [facility] Neutrophils Auto (Bld) [#/Vo l]Ordered By: Margaret Delgado on 11-19-2022 Neutrophils (Bld) [#/Vol] 6.0 10*3/uL 1.8-7.7 [facility] Neutrophils/100 WBC Auto (Bl d)Ordered By: Margaret Delgado on 11-19-2022 Neutrophils/100 WBC (Bld) 67.7 % . [facility] No Panel InformationOrdered By: Margaret Delgado on 11-19-2022 Estimated GFR (CKD-EPI) 41.019 mL/Min [facility] Creatinine Clearance (Chem 53.15 [facility] Nucleated erythrocytes [Pres ence] in Blood by Automated countOrdered By: Margaret Delgado on 11-19-2022 Nucleated RBC Auto Ql (Bld) 0.0 /100{WBC} 0-0.5 [facility] Platelet mean volume Auto (B ld) [Entitic vol]Ordered By: Margaret Delgado on 11-19-2022 Platelet mean volume (Bld) [Entitic vol] 8.4 fL 6.6-10.1 [facility] Platelets Auto (Bld) [#/Vol] Ordered By: Margaret Delgado on 11-19-2022 Platelets (Bld) [#/Vol] 216 10*3/uL 150-450 [facility] Potassium [Moles/volume] in Serum or PlasmaOrdered By: Margaret Delgado on 11-19-2022 Potassium [Moles/Vol] 4.8 mmol/L 3.5-5.1 [facility] Protein [Mass/volume] in Ser um or PlasmaOrdered By: Margaret Delgado on 11-19-2022 Protein [Mass/Vol] 7.4 g/dL 6.4-8.9 [facility] RBC Auto (Bld) [#/Vol]Ordere d By: Margaret Delgado on 11-19-2022 RBC (Bld) [#/Vol] 3.74 10*6/uL 3.90-5.60 [facility] Serum or plasma albumin/glob ulin mass ratioOrdered By: Margaret Delgado on 11-19-2022 Albumin/Globulin [Mass ratio] 1.2 {ratio} [facility] Serum or plasma anion gap de terminationOrdered By: Margaret Delgado on 11-19-2022 Anion gap [Moles/Vol] 11.2 mmol/L 6.0-15.0 [facility] Serum or plasma cancer antig en 19-9 measurement (units/volume)Ordered By: Margaret Delgado on 11-19-2022 Cancer Ag 19-9 Qn 14 [arb'U]/mL 0-35 [facility] Comment on above: [employer] El ectrochemiluminescence Immunoassay(ECLIA)Values obtained with different assay methods or kits cannotbe used interchangeably. Results cannot be interpreted asabsolute evidence of the presence or absence of malignantdisease.Performed at: [place] [place] [id number] Director: Flaco Pineda PhD, Phone: [phone] Sodium [Moles/volume] in Ser um or PlasmaOrdered By: Margaret Delgado on 11-19-2022 Sodium [Moles/Vol] 136 mmol/L 136-145 [facility] Urea nitrogen [Mass/volume] in Serum or PlasmaOrdered By: Margaret Delgado on 11-19-2022 Urea nitrogen [Mass/Vol] 42 mg/dL 7-25 [facility] WBC Auto (Bld) [#/Vol]Ordere d By: Margaret Delgado on 11-19-2022 WBC (Bld) [#/Vol] 8.9 10*3/uL 4.1-10.5 [facility] CNPNon 11-16-2022 CNPN Telephone (PAINLN) ALTAGRACIA CONWAY ([id number]) 1955 M [facility] Date Time Provider Department 11/16/22 JORDAN ORTEGA [...] the patient to contact the Medtronic SCS Customer Relations Advisor regarding programming. 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 Ortega PROCEDURE: Placement of [...] reviewed and the patient voiced understanding. Altagracia Dinesh Conway was discharged home in stable condition. [...] NEC W/O COMA W HEPAT C ACUT [[id number]] 01/22/2002 Unspecified Senile Cataract [H25.9] 11/02/2009 Type [...] Encounter Status:Closed by ADRIANE NICHOLSON on 11/16/22 [facility] ANES POSTPROC EVALon 023 ANES POSTPROC EVAL HNO ID: [id number] Author: Scooter Ramirez MD Service: Anesthesiology Author Type: Anesthesiologist Type: Anesthesia Postprocedure Evaluation Filed: 11/13/2022 11:32 AM Note Text: POST ANESTHESIA EVALUATION NOTE : 1955 Procedure Summary Date: 11/13/22 Room / Location: [address] Anesthesia Start: 914 Anesthesia Stop: 1100 [...] November 13, 2022 TIME: 11:32 AM CSN: [id number] [facility] ANES PRE-OPon 11-13-2022 ANES PRE-OP HNO ID: [id number] Author: Scooter Ramirez MD Service: Anesthesiology Author Type: Anesthesiologist Type: Anesthesia Preprocedure Evaluation Filed: 11/13/2022 8:13 AM Note Text: ANESTHESIOLOGY DAY OF SURGERY NOTE : 1955 Procedure Information Date/Time: 11/13/22 0856 Procedures: INSERTION STIMULATOR SPINAL CORD (Spine) PERCUTANEOUS IMPLANT LEAD NEUROSTIM EPIDURAL TRIAL (Spine) Location: [address] / [facility] Surgeons: Jordan Ortega DO Estimated body mass index is 29.92 kg/m? [...] November 13, 2022 TIME: 8:13 AM CSN: [id number] [facility] OPERATIVE NOon 11-13-2022 OPERATIVE NO HNO ID: [id number] Author: Jordan Ortega DO Service: Pain Management Author Type: Physician Type: Operative Report Filed: 11/13/2022 11:04 AM Note Text: Patient Name Medical Record # Altagracia Conway [id number] Date of : 1955 Admit Date: November 13, 2022 Sex / Age: male/67 year old Discharge Date: November 13, 2022 Date: November 13, 2022 Attending Physician: Jordan Ortega DO Service: Pain Managment LOG ID: [id number] Surgery/Procedure Date: 11/13/2022 Incision/Procedure Start Time: 9:37 AM Incision Close/Procedure End Time: 10:53 AM PREOPERATIVE DIAGNOSIS: Diabetic Peripheral neuropathy POSTOPERATIVE DIAGNOSIS: Same NAME OF OPERATION: Placement of Percutaneous SCS lead implantation x 2 and Medtronic Intellis adaptiveStim system implantable pulse generator. SURGEON: Jordan Ortega DO PROFESSOR OF FORESTRY: Andria Bedolla MD, PGY5 Antonio Fairchild PA-C [...] blunt dissection technique for placement of the Med[employer]ch Tree Medicalis PayClipStim implantable pulse generator. The tunneling was then [...] Loss: None. Drains: None. Implantable Device: 1- Medtronic Intellis adaptiveStim Battery Serial #[id number] Model # [id number] 2- Vectris SureScan MRI Medtronic Lead #1 60 cm Model # [id number] Serial # [id number] 3- Vectris SureScan MRI Medtronic Lead #2 60 cm Model # [id number] Serial # [id number] 4- TYRX antibacterial envelope REf # [id number] Lot # [id number] Exp 06/06/2023 Specimen: None. I was present during the entire procedure, assisted as needed, patient tolerated well and no apparant complications, plan as outlined. Jordan Ortega DO ASSESSMENT AND PLAN: 1) S/P Permanent SCS Implant Today. 2) RTC in - (more content not included)... Normal [facility] 11-09-2022 CNPN Telephone (PAINLN) ALTAGRACIA CONWAY ([id number]) 1955 [facility] Date Time Provider Department 11/09/22 JORDAN ORTEGA PAINSEEMA During your visit today, we recorded the [...] at 11 am with Dolly at the [facility] Pain Management Office. Please notify the SCS [...] daily. - blood-glucose sensor (DEXCOM G7 SENSOR [facility]) 1 Each. 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 [[id number]] 01/22/2002 Unspecified Senile Cataract [H25.9] 11/02/2009 Type [...] Encounter Status:Closed by KRISTEN TEMPLETON on 11/09/22 [facility] Tae 11-08-2022 MATTHEW Telephone (ORLORA) ALTAGRACIA CONWAY ([id number]) 1955 M [facility] Date Time Provider Department 11/08/22 JORDAN ORTEGA During your visit today, we recorded the following information about you: Aileen Fox 11/08/2022 9:18 AM Signed SCS PERMANENT [employer] ALTAGRACIA CONWAY [id number] JORDAN 11/13 [employer] REP EMAILED PRE ADMISSION [...] was advised that they will require a fence post driver on the day of their procedure, and procedure will be cancelled if they arrive without a responsible adult to transport them home from the procedure. Patient advised that all medication management instructions prior to procedure will need addressed by clinical staff. Patient expresses understanding with no further questions or concerns at this time. Patient transferred to [facility] scheduling line to authorize procedure, or [facility] appointment made. Aileen Fox 11/08/2022 9:18 AM Signed Please schedule follow up office visit for 1 week after 11/13. Zari Chapman LPN 11/08/2022 5:25 PM Signed Called spoke with patient, scheduled for follow up visit with Marilyn Henry PA-C in [place] on @ 11:00am. Please call tomorrow with reminder unable to write down. Kristen Templeton LPN 11/09/2022 2:10 PM Signed Spoke with pt this am, seen tele [facility] 11/09/2022. 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 [[id number]] 01/22/2002 Unspecified Senile Cataract [H25.9] 11/02/2009 Type [...] Encounter Status:Closed by KRISTEN TEMPLETON on 11/09/22 [facility] CNOVon 11-07-2022 CNOV Office Visit (PAINLN ) ALTAGRACIA CONWAY ([id number]) 1955 M [facility] Date Time Provider Department 11/07/22 5:00 PM JORADN ORTEGA PAINLN During your visit today, we recorded the following information about you: Pulse Weight Height 74/minute 105.7 kg 1.88 m Jordan Ortega, 11/07/2022 6:02 PM Signed [facility] Date: 11/07/2022 Name: Altagracia Conway [...] NEC W/O COMA W HEPAT C ACUT [[id number]] 01/22/2002 Unspecified Senile Cataract [H25.9] 11/02/2009 Type [...] pulmonary di (more content not included)... Normal [facility] OPERATIVE NOon 10-30-2022 OPERATIVE NO HNO ID: [id number] Author: Jordan Ortega DO Service: Pain Management Author Type: Physician Type: Operative Report Filed: 10/30/2022 8:54 AM Note Text: opened in error Normal [facility] OPERATIVE NO HNO ID: [id number] Author: Jordan Ortega DO Service: Pain Management Author Type: Physician Type: Operative Report Filed: 10/30/2022 8:55 AM Note Text: Patient Name Medical Record # Altagracia Conway [id number] Date of : 1955 Admit Date: October 30, 2022 Sex / Age: male/67 year old Discharge Date: October 30, 2022 Date: October 30, 2022 Attending Physician: Jordan Ortega DO Service: Pain Managment LOG ID: [id number] Surgery/Procedure Date: 10/30/2022 Incision/Procedure Start Time: 7:51 AM Incision Close/Procedure End Time: 8:06 AM PREOPERATIVE DIAGNOSIS: Diabetic Peripheral neuropathy and chemotherapy induced neuropathy POSTOPERATIVE DIAGNOSIS: Same NAME OF OPERATION: Percutaneous spinal cord stimulation trial under fluoroscopic guidance ( [employer]) SURGEON: Jordan Ortega DO PROFESSOR OF FORESTRY: None. ANESTHESIA: Moderate sedation and Local Anesthesia, [...] lead in the epidural space Specimen: None. IJordan DO, performed the entire procedure. PLAN: 1) [...] DO Pain Management October 30, 2022 Normal [facility] Comprehensive metabolic 2000 panelon 10-19-2022 Albumin [Mass/Vol] 4.6 g/dL Normal 3.9-4.9 [facility] Comment on above: Order Comment: Speci men Type: BLOOD SPECIMEN Ordering Facility: [facility] Address: [address] [address] Performed By: #### 2 4323-8 #### [facility] CLIA [id number] [address] [place] [address] [place] ALP [Catalytic activity/Vol] 192 U/L High 38-113 [facility] Comment on above: Order Comment: Speci men Type: BLOOD SPECIMEN Ordering Facility: [facility] Address: [address] [address] Performed By: #### 2 4323-8 #### [facility] CLIA [id number] [address] [place] [address] [place] ALT [Catalytic activity/Vol] 32 U/L Normal 10-54 [facility] Comment on above: Order Comment: Speci men Type: BLOOD SPECIMEN Ordering Facility: [facility] Address: [address] [address] Performed By: #### 2 4323-8 #### [facility] CLIA [id number] [address] [place] [address] [place] Anion gap [Moles/Vol] 13 mmol/L Normal 9-18 [facility] Comment on above: Order Comment: Speci men Type: BLOOD SPECIMEN Ordering Facility: [facility] Address: [address] [address] Performed By: #### 2 4323-8 #### [facility] CLIA [id number] [address] [place] [address] [place] AST [Catalytic activity/Vol] 30 U/L Normal 14-40 [facility] Comment on above: Order Comment: Speci men Type: BLOOD SPECIMEN Ordering Facility: [facility] Address: [address] [address] Performed By: #### 2 4323-8 #### [facility] IA [id number] [address] [place] [address] [place] Bilirubin [Mass/Vol] 0.2 mg/dL Normal 0.2-1.3 [facility] Comment on above: Order Comment: Speci men Type: BLOOD SPECIMEN Ordering Facility: [facility] Address: [address] [address] Performed By: #### 2 4323-8 #### [facility] CLIA [id number] [address] [place] [address] [place] Calcium [Mass/Vol] 9.8 mg/dL Normal 8.5-10.2 [facility] Comment on above: Order Comment: Speci men Type: BLOOD SPECIMEN Ordering Facility: [facility] Address: [address] [address] Performed By: #### 2 4323-8 #### [facility] CLIA [id number] [address] [place] [address] [place] Chloride [Moles/Vol] 101 mmol/L Normal 97-105 [facility] Comment on above: Order Comment: Speci men Type: BLOOD SPECIMEN Ordering Facility: [facility] Address: [address] [address] Performed By: #### 2 4323-8 #### [facility] CLIA [id number] [address] [place] [address] [place] CO2 [Moles/Vol] 22 mmol/L Normal 22-30 [facility] Comment on above: Order Comment: Speci men Type: BLOOD SPECIMEN Ordering Facility: [facility] Address: [address] [address] Performed By: #### 2 4323-8 #### [facility] IA [id number] [address] [place] [address] [place] Creatinine [Mass/Vol] 1.68 mg/dL High 0.73-1.22 [facility] Comment on above: Order Comment: Jayce aguilar Type: BLOOD SPECIMEN Ordering Facility: [facility] Address: [address] [address] Performed By: #### 2 4323-8 #### [facility] CLIA [id number] [address] [place] [address] [place] ESTIMATED GLOMERULAR FILTRATION RATE 44 mL/min/1.73m??? Low >=60 [facility] Comment on above: Order Comment: Jayce aguilar Type: BLOOD SPECIMEN Ordering Facility: [facility] Address: [address] [address] Result Comment: Elizabeth mated Glomerular Filtration Rate [...] GFR. Performed By: #### 2 4323-8 #### [facility] CLIA [id number] [address] [address] [id number] [place] Glucose [Mass/Vol] 230 mg/dL High 74-99 [facility] Comment on above: Order Comment: Jayce aguilar Type: BLOOD SPECIMEN Ordering Facility: [facility] Address: [address] [place] [address] Result Comment: The [place] Diabetes Association (ADA) provides guidance for cutoff [...] Standards of Medical Care in Diabetes 2016, [place] Diabetes Association. Diabetes Care. 2016.39(Suppl 1). Performed By: #### 2 4323-8 #### [facility] IA [id number] [address] [place] [address] [place] Potassium [Moles/Vol] 5.0 mmol/L Normal 3.7-5.1 [facility] Comment on above: Order Comment: Speci men Type: BLOOD SPECIMEN Ordering Facility: [facility] Address: [address] [address] Performed By: #### 2 4323-8 #### [facility] IA [id number] [address] [place] [address] [place] Protein [Mass/Vol] 8.0 g/dL Normal 6.3-8.0 [facility] Comment on above: Order Comment: Speci men Type: BLOOD SPECIMEN Ordering Facility: [facility] Address: [address] [place] [address] Performed By: #### 2 4323-8 #### [facility] IA [id number] [place] [address] [place] Sodium [Moles/Vol] 136 mmol/L Normal 136-144 [facility] Comment on above: Order Comment: Speci men Type: BLOOD SPECIMEN Ordering Facility: [facility] Address: [address] [address] Performed By: #### 2 4323-8 #### [facility] IA [id number] [address] [place] [address] [place] Urea nitrogen [Mass/Vol] 45 mg/dL High 9-24 [facility] Comment on above: Order Comment: Speci men Type: BLOOD SPECIMEN Ordering Facility: [facility] Address: [address] [address] Performed By: #### 2 4323-8 #### [facility] IA [id number] [address] [place] [address] [place] Albumin [Mass/Vol] 4.6 g/dL 3.9 - 4.9 g/dL [facility] ALP [Catalytic activity/Vol] 192 U/L High 38 - 113 U/L [facility] ALT [Catalytic activity/Vol] 32 U/L 10 - 54 U/L [facility] Anion gap [Moles/Vol] 13 mmol/L 9 - 18 mmol/L [facility] AST [Catalytic activity/Vol] 30 U/L 14 - 40 U/L [facility] Bilirubin [Mass/Vol] 0.2 mg/dL 0.2 - 1 .3 mg/dL [facility] Calcium [Mass/Vol] 9.8 mg/dL 8.5 - 10. 2 mg/dL [facility] Chloride [Moles/Vol] 101 mmol/L 97 - 10 5 mmol/L [facility] CO2 [Moles/Vol] 22 mmol/L 22 - 30 mmol/L [facility] Creatinine [Mass/Vol] 1.68 mg/dL High 0.73 - 1.22 mg/dL [facility] Estimated Glomerular Filtration Rate 44 mL/min/1.73m Low >=60 mL/min/1.73m [facility] Glucose [Mass/Vol] 230 mg/dL High 74 - 99 mg/dL [facility] Potassium [Moles/Vol] 5.0 mmol/L 3.7 - 5.1 mmol/L [facility] Protein [Mass/Vol] 8.0 g/dL 6.3 - 8.0 g/dL [facility] Sodium [Moles/Vol] 136 mmol/L 136 - 144 mmol/L [facility] Urea nitrogen [Mass/Vol] 45 mg/dL High 9 - 24 mg/dL [facility] HISTORY PHYSICALon HISTORY PHYSICAL HNO ID: [id number] Author: Teetee Yang PA-C Service: ? Author Type: Physician Research Associate Type: HANDP Filed: 10/22/2022 8:22 AM Note [...] ECP 11/04/2009 Performed by MARK BROWN at [facility] XCAPSL CTRC RMVL INSJ IO LENS PROSTH W/O ECP 11/11/2009 Performed by MARK BROWN at [facility] FAMILY HISTORY Problem Relation Age of Onset [...] Taking Yes blood-glucose sensor (DEXCOM G7 SENSOR MISC) 1 Each. Taking Yes insulin aspart U-100 [...] 6 weeks (more content not included)... Normal [facility] HbA1c (Bld)on 10-19-2022 Average glucose Estimated from glycated hemoglobin (Bld) [Mass/Vol] 171 mg/dL [facility] HbA1c (Bld) [Mass fraction] 7.6 % High 4.3 - 5.6 % [facility] Average glucose Estimated from glycated hemoglobin (Bld) [Mass/Vol] 171 mg/dL Normal [facility] Comment on above: Order Comment: Jayce aguilar Type: BLOOD SPECIMEN Ordering Facility: [facility] Address: [address] [place] [address] Result Comment: eAG: (Estimated average glucose) is a calculated value from HgbA1c and is senior outside sales representative of the average blood glucose level in the last 2-3 month period. Performed By: #### 5 5454-3 #### [facility] CLIA [id number] [address] [place] [address] [place] HbA1c (Bld) [Mass fraction] 7.6 % High 4.3-5.6 [facility] Comment on above: Order Comment: Jayce aguilar Type: BLOOD SPECIMEN Ordering Facility: [facility] Address: [address] [place] [address] Result Comment: Ammimi ican Diabetes Association guidelines indicate that patients with HgbA1c in the range 5.7-6.4% are at increased risk for development of diabetes, and intervention by lifestyle modification may be beneficial. HgbA1c greater or equal to 6.5% is considered diagnostic of diabetes. Performed By: #### 5 5454-3 #### [facility] CLIA [id number] [address] [place] [address] OF [facility] ALTAGRACIA CONWAY ([id number]) 1955 M [facility] Date Time Provider Department 09/18/22 JORDAN ORTEGA During your visit today, we recorded the following information about you: Aileen Fox 09/18/2022 10:34 AM Signed [facility] TRI[facility] [employer] JORDAN THINNERS DM Spoke to patient. Patient declines scheduling at this time. Just started back to work at a new job. Aileen Fox 10/03/2022 8:37 AM Signed [facility] ALTARGACIA CONWAY [id number] JORDAN 10/30 - PAT SCHEDULED - [employer] REP EMAILED - [facility] NOTIFIED - ORDER PLACED -THINNERS +DM Patient was made aware that the ASC will call the day prior to scheduled procedure between the hours of 12 and 4 pm to advise patient of arrival time the day of procedure. Patient was advised that they will require a fence post driver on the day of their procedure, and procedure will be cancelled if they arrive without a responsible adult to transport them home from the procedure. Patient advised that all medication management instructions prior to procedure will need addressed by clinical staff. Patient expresses understanding with no further questions or concerns at this time. Patient transferred to [facility] scheduling line to authorize procedure, or greencoat appointment made. Aileen Fox 10/03/2022 8:37 AM Signed Addended by: AILEEN FOX on: 10/03/2022 08:37 AM Modules accepted: Sobia Perez LPN 10/03/2022 9:25 AM Signed Called patient, [...] on 11/07/22 at 5:00 with at the [facility]. 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) [*09/07/2022 History of amputation of right great toe (HCC) *09/07/2022 Encounter Status:Closed by AILEEN FOX on 09/18/22 [facility] CNOVon 09-07-2022 CNOV Office Visit (PAINCR ) ALTAGRACIA CONWAY ([id number]) 1955 [facility] Date Time Provider Department 09/07/22 1:00 PM GURU BYRD During your visit today, we recorded the following information about you: Guru Osorio, PhD 09/11/2022 5:01 PM Signed [facility] PAIN MANAGEMENT BEHAVIORAL MEDICINE EVALUATION REFERRING PHYSICIAN: Jordan Ortega DO ATTENDING PHYSICIAN: Guru Osorio, PHD Altagraciajose cruz Conway PATIENT TYPE: [facility] : 1955 DATE OF SERVICE: September 07, 2022 IDENTIFYING INFORMATION Altagracia Conway is a 66 year old male from [place], [place] who was referred for evaluation by [...] ECP 11/04/09 Performed by MARK BROWN at [facility] XCAPSL CTRC RMVL INSJ IO LENS PROSTH W/O ECP 11/11/09 Performed by MARK BROWN at [facility] RELEVANT MEDICAL HISTORY He has had his right great toe amputated. He has just begun treatment with Dr. Ortega. He has not had physical therapy, nor has he seen a psychologist nor psychiatrist for pain management; however he has a history of depression for which she sees a psychiatrist every 3 months at [facility]. He has taken medication without relief and [...] grown, all (more content not included)... Normal [facility] CNOVon 08-13-2022 CNOV Office Visit (PAINLN ) ALTAGRACIA CONWAY ([id number]) 1955 M [facility] Date Time Provider Department 08/13/22 10:30 AM JORDAN ORTEGA During your visit today, we recorded the following information about you: Pulse Weight Height 80/minute 111.1 kg 1.88 m Jordan Ortega DO 08/13/2022 12:04 PM Signed [facility] Initial Evaluation August 13, 2022 This appointment was requested by Dr Blas for my medical opinion regarding the evaluation and management of the patient's Altagracia Conway problems, and my final recommendations will be communicated to the requesting health care provider by way of the shared medical record for internal providers or letter via the [employer] for external providers. 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 Appeals Officer: No Passive conservative therapy lasting 6 weeks in the last six months (see below) 1. Medical devises: No 2. Acupuncture: No 3. Tens unit: No 4. Prescription pain medication: N (more content not included)... Normal [facility] MRI Brain w/oon 07-24-2022 MRI Brain w/o [...] by Shin Whiteside on 07/24/2022 1405 Normal [facility] Specialist XR Chest 2 Views*on 07-06-19 23 XR [...] changes in the spine. The right side Gcxdhu-d-Zwel catheter extends to the SVC. IMPRESSION: NO ACUTE CARDIOPULMONARY ABNORMALITY. Report reported and signed by Rekha Campbell on 07/05/2022 1510 Normal [facility] Specialist Albumin [Mass/volume] in Bod y fluidOrdered By: Maura Sands on 05-15-2022 Albumin (Body fld) [Mass/Vol] 3.9 g/dL 3.2-5.5 [facility] Alkaline phosphatase [Enzyma tic activity/volume] in Serum or PlasmaOrdered By: Maura Sands on 05-15-2022 ALP [Catalytic activity/Vol] 204 U/L 32-92 [facility] Aspartate aminotransferase [ Enzymatic activity/volume] in Serum or PlasmaOrdered By: Maura Sands on 05-15-2022 AST [Catalytic activity/Vol] 48 U/L 10-42 [facility] Basophils Auto (Bld) [#/Vol] Ordered By: Maura Sands on 05-15-2022 Basophils (Bld) [#/Vol] 0.1 10*3/uL 0.0-0.2 [facility] Basophils/100 WBC Auto (Bld) Ordered By: Maura Sands on 05-15-2022 Basophils/100 WBC (Bld) 1.0 % . [facility] Bilirubin.total [Mass/volume ] in Serum or PlasmaOrdered By: Maura Sands on 05-15-2022 Bilirubin [Mass/Vol] 0.4 mg/dL 0.3-1.2 [facility] Calcium [Mass/volume] in Ser um or PlasmaOrdered By: Maura Sands on 05-15-2022 Calcium [Mass/Vol] 9.5 mg/dL 8.2-10.2 [facility] Carbon dioxide, total [Moles /volume] in Serum or PlasmaOrdered By: Maura Sands on 05-15-2022 CO2 [Moles/Vol] 19.6 mmol/L 22.0-30.0 [facility] Chloride [Moles/volume] in S iqra or PlasmaOrdered By: Maura Sands on 05-15-2022 Chloride [Moles/Vol] 107 mmol/L 95-114 [facility] Creatinine and Glomerular fi ltration rate.predicted panel (S/P/Bld)Ordered By: Maura Sands on 05-15-2022 Creatinine [Mass/Vol] 1.52 mg/dL 0.64-1.27 [facility] Eosinophils Auto (Bld) [#/Vo l]Ordered By: Maura Sands on 05-15-2022 Eosinophils (Bld) [#/Vol] 0.8 10*3/uL 0.0-0.45 [facility] Eosinophils/100 WBC Auto (Bl d)Ordered By: Maura Sands on 05-15-2022 Eosinophils/100 WBC (Bld) 7.4 % . [facility] Erythrocyte distribution wid th Auto (RBC) [Ratio]Ordered By: Maura Sands on 05-15-2022 Erythrocyte distribution width (RBC) [Ratio] 14.1 % 12.0-14.8 [facility] Globulin Calc (S) [Mass/Vol] Ordered By: Maura Sands on 05-15-2022 Globulin (S) [Mass/Vol] 3.6 g/dL [facility] Glucose Glucometer (BldC) [M ass/Vol]Ordered By: Margaret Delgado on 05-15-2022 Glucose [Mass/Vol] 67 mg/dL [facility] Comment on above: Random Glucose Refer ence Range is dependent on time and content of last meal. Glucose of more than 200 mg/dL in a nonstressed, ambulatory subject supports the diagnosis of Diabetes Mellitus. Glucose [Mass/Vol] Capillary blood gluc ose measurement by glucometer (mass/volume) [facility] Comment on above: Random Glucose Refer ence Range is dependent on time and content of last meal. Glucose of more than 200 mg/dL in a nonstressed, ambulatory subject supports the diagnosis of Diabetes Mellitus. Glucose [Mass/volume] in Ser um or PlasmaOrdered By: Maura Sands on 05-15-2022 Glucose [Mass/Vol] 44 mg/dL 70-100 [facility] Comment on above: Results calledat 105 6 on 05/15/22 ADA recommended reference rangeRandom Glucose Reference Range is dependent on time and content of last meal. Glucose of more than 200 mg/dL in a nonstressed, ambulatory subject supports the diagnosis of Diabetes Mellitus. Hematocrit Auto (Bld) [Volum e fraction]Ordered By: Maura Sands on 05-15-2022 Hematocrit (Bld) [Volume fraction] 34.4 % 38.8-50.0 [facility] Hemoglobin [Mass/volume] in BloodOrdered By: Maura Sands on 05-15-2022 Hemoglobin (Bld) [Mass/Vol] 11.6 g/dL 13.0-17.0 [facility] Laboratory - Chemistry and C hemistry - challengeOrdered By: Maura Sands on 05-15-2022 GFR/1.73 sq M.predicted MDRD (S/P/Bld) [Vol rate/Area] 50.223 mL/min/{1.73_m2} [facility] Leukocytes [#/volume] correc lamont for nucleated erythrocytes in Blood by Automated counOrdered By: Maura Sands on 05-15-2022 WBC corrected for nucl RBC Auto (Bld) [#/Vol] 10.5 10*3/uL 4.1-10.5 [facility] Lymphocytes Auto (Bld) [#/Vo l]Ordered By: Maura Sands on 05-15-2022 Lymphocytes (Bld) [#/Vol] 3.0 10*3/uL 1.00-4.8 [facility] Lymphocytes/100 WBC Auto (Bl d)Ordered By: Maura Sands on 05-15-2022 Lymphocytes/100 WBC (Bld) 28.8 % . [facility] MCH Auto (RBC) [Entitic mass ]Ordered By: Maura Sands on 05-15-2022 MCH (RBC) [Entitic mass] 29.6 pg 27.5-35.2 [facility] MCHC Auto (RBC) [Mass/Vol]Or dered By: Maura Sands on 05-15-2022 MCHC (RBC) [Mass/Vol] 33.7 g/dL 32.5-35.6 [facility] MCV Auto (RBC) [Entitic vol] Ordered By: Maura Sands on 05-15-2022 MCV (RBC) [Entitic vol] 87.9 fL 83.5-101 [facility] Monocytes Auto (Bld) [#/Vol] Ordered By: Maura Sands on 05-15-2022 Monocytes (Bld) [#/Vol] 0.8 10*3/uL 0.0-0.8 [facility] Monocytes/100 WBC Auto (Bld) Ordered By: Maura Sands on 05-15-2022 Monocytes/100 WBC (Bld) 8.0 % . [facility] Neutrophils Auto (Bld) [#/Vo l]Ordered By: Maura Sands on 05-15-2022 Neutrophils (Bld) [#/Vol] 5.8 10*3/uL 1.8-7.7 [facility] Neutrophils/100 WBC Auto (Bl d)Ordered By: Maura Sands on 05-15-2022 Neutrophils/100 WBC (Bld) 54.8 % . [facility] No Panel InformationOrdered By: Maura Sands on 05-15-2022 Pharmacy Creatinine Clearance (Chem 63.10 [facility] Nucleated erythrocytes [Pres ence] in Blood by Automated countOrdered By: Maura Sands on 05-15-2022 Nucleated RBC Auto Ql (Bld) 0.1 /100{WBC} 0-0.5 [facility] Platelet mean volume Auto (B ld) [Entitic vol]Ordered By: Maura Sands on 05-15-2022 Platelet mean volume (Bld) [Entitic vol] 9.0 fL 6.6-10.1 [facility] Platelets Auto (Bld) [#/Vol] Ordered By: Maura Sands on 05-15-2022 Platelets (Bld) [#/Vol] 201 10*3/uL 150-450 [facility] Potassium [Moles/volume] in Serum or PlasmaOrdered By: Maura Sands on 05-15-2022 Potassium [Moles/Vol] 4.7 mmol/L 3.5-5.1 [facility] Protein [Mass/volume] in Ser um or PlasmaOrdered By: Maura Sands on 05-15-2022 Protein [Mass/Vol] 7.5 g/dL 6.1-7.9 [facility] RBC Auto (Bld) [#/Vol]Ordere d By: Maura Sands on 05-15-2022 RBC (Bld) [#/Vol] 3.91 10*6/uL 3.90-5.60 [facility] Serum or plasma alanine webster otransferase measurement without P-5'-P (enzymatic activiOrdered By: Maura Sands on 05-15-2022 ALT No additional P-5'-P [Catalytic activity/Vol] 53 U/L 10-60 [facility] Serum or plasma albumin/glob ulin mass ratioOrdered By: Maura Sands on 05-15-2022 Albumin/Globulin [Mass ratio] 1.1 {ratio} [facility] Serum or plasma anion gap de terminationOrdered By: Maura Sands on 05-15-2022 Anion gap [Moles/Vol] 14.1 mmol/L 6.0-15.0 [facility] Serum or plasma cancer antig en 19-9 measurement (units/volume)Ordered By: Maura Sands on 05-15-2022 Cancer Ag 19-9 Qn 22 [arb'U]/mL 0-35 [facility] Comment on above: [facility] El ectrochemiluminescence Immunoassay(ECLIA)Values obtained with different assay methods or kits cannotbe used interchangeably. Results cannot be interpreted asabsolute evidence of the presence or absence of malignantdisease.Performed at: [facility] [id number] Director: Flaco Pineda PhD, Phone: [phone] Sodium [Moles/volume] in Ser um or PlasmaOrdered By: Maura Sands on 05-15-2022 Sodium [Moles/Vol] 136 mmol/L 136-146 [facility] Urea nitrogen [Mass/volume] in Serum or PlasmaOrdered By: Maura Sands on 05-15-2022 Urea nitrogen [Mass/Vol] 47 mg/dL 9-23 [facility] WBC Auto (Bld) [#/Vol]Ordere d By: Maura Sands on 05-15-2022 WBC (Bld) [#/Vol] 10.5 10*3/uL 4.1-10.5 [facility] XR Ribs Lefton 03-31-2022 XR Ribs Left HISTORY: Fell inside bathtub yesterday. Left rib pain laterally mid to lower. FINDINGS: No fracture, dislocation, bone lesion. IMPRESSION: Negative left ribs. Report reported and signed by Darian Signmimi on 03/31/2022 1337 Normal [facility] [employer] XR Wrist Complete Right*on 0 03-31-2022 XR Wrist Complete Right* HISTORY: Fell in bathtub yesterday. FINDINGS: No fracture, dislocation, bone lesion. IMPRESSION: Negative right wrist. Report reported and signed by Darian Signer on 03/31/2022 1339 Normal [facility] Specialist CHEMISTRYOrdered By: SYSTEM SYSTEM on [...] 41 mL/min/1.73 m2 Low >=59mL/min/1 .73 m2 FT Chem S GFR/1.73 sq M.predicted among non-blacks MDRD (S/P/Bld) [Vol rate/Area] 34 mL/min/1.73 m2 Low >=59mL/min/1 .73 m2 FT Chem S Globulin (S) [Mass/Vol] 4.0 g/dL Normal 1.4 - 4.0 gm/dL [facility] Glucose [Mass/Vol] 189 mg/dL Normal 55 - 199 mg/dL [facility] Potassium [Moles/Vol] 4.9 mmol/L Normal 3.5 - 5.3 mmol/L [facility] Prostate specific Ag [Mass/Vol] 5.0 ng/mL High 0.1 - 3.5 ng/mL [facility] Protein [Mass/Vol] 8.3 g/dL High 6.0 - 7.8 gm/dL [facility] Sodium [Moles/Vol] 129 mmol/L Low 135 - 145 mmol/L [facility] Triglyceride [Mass/Vol] 244 mg/dL High <=149mg/dL [facility] Urea nitrogen [Mass/Vol] 56 mg/dL High 5 - 21 mg/dL [facility] Urea nitrogen/Creatinine [Mass ratio] 28 mg/mg [...] 500.0 E9/L [facility] HemeAutoSS RBC (Bld) [#/Vol] 4.5 E12/L Normal 4.3 - 5.9 E12/L [facility] WBC corrected for nucl RBC Auto (Bld) [#/Vol] 10.4 E9/L Normal 4.0 - 11.0 E9/L [facility] Basophils Auto (Bld) [#/Vol] Ordered By: Margaret Delgado on 02-14-2022 Basophils (Bld) [#/Vol] 0.1 10*3/uL 0.0-0.2 [facility] Basophils/100 WBC Auto (Bld) Ordered By: Margaret Delgado on 02-14-2022 Basophils/100 WBC (Bld) 1.2 % . [facility] Body fluid albumin measureme nt (mass/volume)Ordered By: Margaret Delgado on 02-14-2022 Albumin (Body fld) [Mass/Vol] 3.8 g/dL 3.2-5.5 [facility] Creatinine and Glomerular fi ltration rate.predicted panel (S/P/Bld)Ordered By: Margaret Delgado on 02-14-2022 Creatinine [Mass/Vol] 1.60 mg/dL 0.64-1.27 [facility] Eosinophils Auto (Bld) [#/Vo l]Ordered By: Margaret Delgado on 02-14-2022 Eosinophils (Bld) [#/Vol] 0.4 10*3/uL 0.0-0.45 [facility] Eosinophils/100 WBC Auto (Bl d)Ordered By: Margaret Delgado on 02-14-2022 Eosinophils/100 WBC (Bld) 3.6 % . [facility] Erythrocyte distribution wid th Auto (RBC) [Ratio]Ordered By: Margaret Delgado on 02-14-2022 Erythrocyte distribution width (RBC) [Ratio] 13.9 % 12.0-14.8 [facility] Estimated glomerular filtrat ion rate (GFR) non- AmericanOrdered By: Margaret Delgado on 02-14-2022 GFR/1.73 sq M.predicted among non-blacks MDRD (S/P/Bld) [Vol rate/Area] 43 mL/Min [facility] GFR/1.73 sq M.predicted among non-blacks MDRD (S/P/Bld) [Vol rate/Area] Estimated glomerular filtration rate (GFR) non- [facility] Globulin Calc (S) [Mass/Vol] Ordered By: Margaret Delgado on 02-14-2022 Globulin (S) [Mass/Vol] 3.6 g/dL [facility] Hematocrit Auto (Bld) [Volum e fraction]Ordered By: Margaret Delgado on 02-14-2022 Hematocrit (Bld) [Volume fraction] 38.7 % 38.8-50.0 [facility] Hemoglobin [Mass/volume] in BloodOrdered By: Margaret Delgado on 02-14-2022 Hemoglobin (Bld) [Mass/Vol] 13.1 g/dL 13.0-17.0 [facility] Leukocytes [#/volume] correc lamont for nucleated erythrocytes in Blood by Automated counOrdered By: Margaret Delgado on 02-14-2022 WBC corrected for nucl RBC Auto (Bld) [#/Vol] 11.4 10*3/uL 4.1-10.5 [facility] Lymphocytes Auto (Bld) [#/Vo l]Ordered By: Margaret Delgado on 02-14-2022 Lymphocytes (Bld) [#/Vol] 2.2 10*3/uL 1.00-4.8 [facility] Lymphocytes/100 WBC Auto (Bl d)Ordered By: Margaret Delgado on 02-14-2022 Lymphocytes/100 WBC (Bld) 19.2 % . [facility] MCH Auto (RBC) [Entitic mass ]Ordered By: Margaret Delgado on 02-14-2022 MCH (RBC) [Entitic mass] 30.2 pg 27.5-35.2 [facility] MCHC Auto (RBC) [Mass/Vol]Or dered By: Margaret Delgado on 02-14-2022 MCHC (RBC) [Mass/Vol] 33.8 g/dL 32.5-35.6 [facility] MCV Auto (RBC) [Entitic vol] Ordered By: Margaret Delgado on 02-14-2022 MCV (RBC) [Entitic vol] 89.4 fL 83.5-101 [facility] Monocytes Auto (Bld) [#/Vol] Ordered By: Margaret Delgado on 02-14-2022 Monocytes (Bld) [#/Vol] 0.7 10*3/uL 0.0-0.8 [facility] Monocytes/100 WBC Auto (Bld) Ordered By: Margaret Delgado on 02-14-2022 Monocytes/100 WBC (Bld) 6.1 % . [facility] Neutrophils Auto (Bld) [#/Vo l]Ordered By: Margaret Delgado on 02-14-2022 Neutrophils (Bld) [#/Vol] 8.0 10*3/uL 1.8-7.7 [facility] Neutrophils/100 WBC Auto (Bl d)Ordered By: Margaret Delgado on 02-14-2022 Neutrophils/100 WBC (Bld) 69.9 % . [facility] No Panel InformationOrdered By: Margaret Delgado on 02-14-2022 Estimated GFR () 53 mL/Min [facility] Comment on above: GFR estimated refere nce range: According to KDOQI guidelines, <60 ml/min/1.73m2 is sufficient to diagnose a patient with chronic kidney disease. Pharmacy Creatinine Clearance (Chem 58.76 [facility] Nucleated erythrocytes [Pres ence] in Blood by Automated countOrdered By: Margaret Delgado on 02-14-2022 Nucleated RBC Auto Ql (Bld) 0.1 /100{WBC} 0-0.5 [facility] Platelet mean volume Auto (B ld) [Entitic vol]Ordered By: Margaret Delgado on 02-14-2022 Platelet mean volume (Bld) [Entitic vol] 8.7 fL 6.6-10.1 [facility] Platelets Auto (Bld) [#/Vol] Ordered By: Margaret Delgado on 02-14-2022 Platelets (Bld) [#/Vol] 239 10*3/uL 150-450 [facility] Protein [Mass/volume] in Ser um or PlasmaOrdered By: Margaret Delgado on 02-14-2022 Protein [Mass/Vol] 7.4 g/dL 6.1-7.9 [facility] RBC Auto (Bld) [#/Vol]Ordere d By: Margaret Delgado on 02-14-2022 RBC (Bld) [#/Vol] 4.32 10*6/uL 3.90-5.60 [facility] Serum or plasma alanine webster otransferase measurement without P-5'-P (enzymatic activiOrdered By: Margaret Delgado on 02-14-2022 ALT No additional P-5'-P [Catalytic activity/Vol] 58 U/L 10-60 [facility] Serum or plasma albumin/glob ulin mass ratioOrdered By: Margaret Delgado on 02-14-2022 Albumin/Globulin [Mass ratio] 1.1 {ratio} [facility] Serum or plasma alkaline queenie sphatase measurement (enzymatic activity/volume)Ordered By: Margaret Delgado on 02-14-2022 ALP [Catalytic activity/Vol] 186 U/L 32-92 [facility] Serum or plasma anion gap de terminationOrdered By: Margaret Delgado on 02-14-2022 Anion gap [Moles/Vol] 16.5 mmol/L 6.0-15.0 [facility] Serum or plasma aspartate am inotransferase measurement (enzymatic activity/volume)Ordered By: Margaret Delgado on 02-14-2022 AST [Catalytic activity/Vol] 32 U/L 10-42 [facility] Serum or plasma calcium maine urement (mass/volume)Ordered By: Margaret Delgado on 02-14-2022 Calcium [Mass/Vol] 10.2 mg/dL 8.2-10.2 [facility] Serum or plasma chloride vicky surement (moles/volume)Ordered By: Margaret Delgado on 02-14-2022 Chloride [Moles/Vol] 100 mmol/L 95-114 [facility] Serum or plasma glucose maine urement (mass/volume)Ordered By: Margaret Delgado on 02-14-2022 Glucose [Mass/Vol] 287 mg/dL 70-100 [facility] Comment on above: ADA recommended refe rence rangeRandom Glucose Reference Range is dependent on time and content of last meal. Glucose of more than 200 mg/dL in a nonstressed, ambulatory subject supports the diagnosis of Diabetes Mellitus. Serum or plasma potassium me asurement (moles/volume)Ordered By: Margaret Delgado on 02-14-2022 Potassium [Moles/Vol] 5.3 mmol/L 3.5-5.1 [facility] Serum or plasma sodium measu rement (moles/volume)Ordered By: Margaret Delgado on 02-14-2022 Sodium [Moles/Vol] 134 mmol/L 136-146 [facility] Serum or plasma total biliru bin measurement (mass/volume)Ordered By: Margaret Delgado on 02-14-2022 Bilirubin [Mass/Vol] 0.3 mg/dL 0.3-1.2 [facility] Serum or plasma total carbon dioxide measurement (moles/volume)Ordered By: Margaret Delgado on 02-14-2022 CO2 [Moles/Vol] 22.8 mmol/L 22.0-30.0 [facility] Serum or plasma urea nitroge n measurement (mass/volume)Ordered By: Margaret Delgado on 02-14-2022 Urea nitrogen [Mass/Vol] 40 mg/dL 9-23 [facility] WBC Auto (Bld) [#/Vol]Ordere d By: Margaret Delgado on 02-14-2022 WBC (Bld) [#/Vol] 11.4 10*3/uL 4.1-10.5 [facility] Urine culture routineOrdered By: Margaret Delgado on 11-17-2021 Bacteria identified Cx Nom (U) No Growth 2 Days [facility] Automated erythrocytes count in urine sediment (number/area)Ordered By: Margaret Delgado on 11-15-2021 RBC Auto (Urine sed) [#/Area] 0-1 [HPF] 0-4 [facility] Automated leukocytes count i n urine sediment (number/area)Ordered By: Margaret Delgado on 11-15-2021 WBC Auto (Urine sed) [#/Area] 5-9 [HPF] High 0-4 [facility] Bacteria [Presence] in Urine by AutomatedOrdered By: Margaret Delgado on 11-15-2021 Bacteria Auto Ql (U) Bacteria [Presence] in Urine by Automated None Seen [facility] Bilirubin Test strip Ql (U)O rdered By: Margaret Delgado on 11-15-2021 Bilirubin Ql (U) Bilirubin.total [Presence] in Urine by Test strip Negative [facility] Bilirubin Ql (U) Negative Negative [facility] Color Auto (U)Ordered By: Elza jose cruz Danny on 11-15-2021 Color (U) Yellow Yellow [facility] Color (U) Color of Urine by Auto Yellow [facility] Erythrocytes [#/area] in Uri ne sediment by Automated countOrdered By: Margaret Delgado on 11-15-2021 RBC Auto (Urine sed) [#/Area] Erythrocytes [#/area] in Urine sediment by Automated count 0-4 [facility] Ketones Auto test strip (U) [Mass/Vol]Ordered By: Margaret Delgado on 11-15-2021 Ketones (U) [Mass/Vol] Negative Negative [facility] Ketones (U) [Mass/Vol] Urine ketones measurement by automated test strip (mass/volume) Negative [facility] Laboratory - Microbiology an d Antimicrobial susceptibilityOrdered By: Margaret Delgado on 11-15-2021 Bacteria identified Cx Nom (U) [facility] Bacteria identified Cx Nom (U) [facility] - UrinalysisOrder ed By: Margaret Delgado on 11-15-2021 Hyaline casts LM Ql (Urine sed) 0-8 [LPF] 0-8 [facility] Leukocytes [#/area] in Urine sediment by Automated countOrdered By: Margaret Delgado on 11-15-2021 WBC Auto (Urine sed) [#/Area] Leukocytes [#/area] in Urine sediment by Automated count High 0-4 [facility] Nitrite Test strip Ql (U)Ord ered By: Margaret Delgado on 11-15-2021 Nitrite Ql (U) Nitrite [Presence] i n Urine by Test strip Negative [facility] Nitrite Ql (U) Negative Negative [facility] Protein Auto test strip (U) [Mass/Vol]Ordered By: Margaret Delgado on 11-15-2021 Protein (U) [Mass/Vol] Trace mg/dL High Negative [facility] Protein (U) [Mass/Vol] Urine protein measurement by automated test strip (mass/volume) High Negative [facility] Specific gravity Auto test s trip (U) [Rel density]Ordered By: Margaret Delgado on 11-15-2021 Specific gravity (U) [Rel density] 1.023 1.001-1.030 [facility] Specific gravity (U) [Rel density] Specific gravity of Urine by Automated test strip 1.001-1.030 [facility] Squamous epithelial cells de tection in urine sediment by light microscopyOrdered By: Margaret Deglado on 11-15-2021 Epithelial cells.squamous LM Ql (Urine sed) 0-1 [HPF] 0-2 [facility] Epithelial cells.squamous LM Ql (Urine sed) Squamous epithelial cells detection in urine sediment by light microscopy 0-2 [facility] Urine bacteria detection by automated methodOrdered By: Margaret Delgado on 11-15-2021 Bacteria Auto Ql (U) None seen None Seen [facility] Urine clarity by refractomet ry automatedOrdered By: Margaret Delgado on 11-15-2021 Clarity Refractometry automated (U) Clear Clear [facility] Clarity Refractometry automated (U) Urine clarity by refractometry automated Clear [facility] Urine culture routineOrdered By: Margaret Delgado on 11-15-2021 Bacteria identified Cx Nom (U) No Growth 2 Days [facility] Bacteria identified Cx Nom (U) No Growth 2 Days [facility] Urine glucose measurement by automated test strip (mass/volume)Ordered By: Margaret Delgado on 11-15-2021 Glucose Auto test strip (U) [Mass/Vol] 250 mg/dL High Normal [facility] Glucose Auto test strip (U) [Mass/Vol] Urine glucose measurement by automated test strip (mass/volume) High Normal [facility] Urine hemoglobin detection b y automated test stripOrdered By: Margaret Delgado on 11-15-2021 Hemoglobin Auto test strip Ql (U) Negative Negative [facility] Hemoglobin Auto test strip Ql (U) Urine hemoglobin detection by automated test strip Negative [facility] Urine leukocyte esterase det ection by automated test stripOrdered By: Margaret Delgado on 11-15-2021 Leukocyte esterase Auto test strip Ql (U) 1+ High Negative [facility] Leukocyte esterase Auto test strip Ql (U) Urine leukocyte esterase detection by automated test strip High Negative [facility] Urobilinogen Auto test strip (U) [Mass/Vol]Ordered By: Margaret Delgado on 11-15-2021 Urobilinogen (U) [Mass/Vol] Normal mg/dL Normal [facility] Urobilinogen (U) [Mass/Vol] Urine urobilinogen measurement by automated test strip (mass/volume) Normal [facility] pH Auto test strip (U)Ordere d By: Margaret Delgado on 11-15-2021 pH (U) 5.0 [pH] 5.0-9.0 [facility] pH (U) Urine pH measurement by automated test strip 5.0-9.0 [facility] Basophils Auto (Bld) [#/Vol] Ordered By: Margaret Delgado on 11-14-2021 Basophils (Bld) [#/Vol] 0.1 10*3/uL 0.0-0.2 [facility] Basophils/100 WBC Auto (Bld) Ordered By: Margaret Delgado on 11-14-2021 Basophils/100 WBC (Bld) 0.8 % . [facility] Blood hemoglobin measurement (mass/volume)Ordered By: Margaret Delgado on 11-14-2021 Hemoglobin (Bld) [Mass/Vol] 12.8 g/dL 13.0-17.0 [facility] Blood leukocytes automated c ount (number/volume)Ordered By: Margaret Delgado on 11-14-2021 WBC (Bld) [#/Vol] 9.4 10*3/uL 4.5-11.0 [facility] Body fluid albumin measureme nt (mass/volume)Ordered By: Margaret Delgado on 11-14-2021 Albumin (Body fld) [Mass/Vol] 4.0 g/dL 3.2-5.5 [facility] Creatinine and Glomerular fi ltration rate.predicted panel (S/P/Bld)Ordered By: Margaret Delgado on 11-14-2021 Creatinine [Mass/Vol] 1.47 mg/dL 0.64-1.27 [facility] Eosinophils Auto (Bld) [#/Vo l]Ordered By: Margaret Delgado on 11-14-2021 Eosinophils (Bld) [#/Vol] 0.5 10*3/uL 0.0-0.45 [facility] Eosinophils/100 WBC Auto (Bl d)Ordered By: Margaret Delgado on 11-14-2021 Eosinophils/100 WBC (Bld) 4.9 % . [facility] Erythrocyte distribution wid th Auto (RBC) [Ratio]Ordered By: Margaret Delgado on 11-14-2021 Erythrocyte distribution width (RBC) [Ratio] 14.2 % 12.0-14.8 [facility] Estimated glomerular filtrat ion rate (GFR) non- AmericanOrdered By: Margaret Delgado on 11-14-2021 GFR/1.73 sq M.predicted among non-blacks MDRD (S/P/Bld) [Vol rate/Area] 48 mL/Min [facility] Globulin Calc (S) [Mass/Vol] Ordered By: Margaret Delgado on 11-14-2021 Globulin (S) [Mass/Vol] 3.6 g/dL [facility] Hematocrit Auto (Bld) [Volum e fraction]Ordered By: Margaret Delgado on 11-14-2021 Hematocrit (Bld) [Volume fraction] 37.5 % 38.8-50.0 [facility] Laboratory - Hematology and Cell countsOrdered By: Margaret Delgado on 11-14-2021 Nucleated RBC/100 WBC (Bld) [Ratio] 0.0 % 0-0.5 [facility] Lymphocytes Auto (Bld) [#/Vo l]Ordered By: Margaret Delgado on 11-14-2021 Lymphocytes (Bld) [#/Vol] 2.6 10*3/uL 1.00-4.8 [facility] Lymphocytes/100 WBC Auto (Bl d)Ordered By: Margaret Delgado on 11-14-2021 Lymphocytes/100 WBC (Bld) 27.7 % . [facility] MCH Auto (RBC) [Entitic mass ]Ordered By: Margaret Delgado on 11-14-2021 MCH (RBC) [Entitic mass] 30.9 pg 27.5-35.2 [facility] MCHC Auto (RBC) [Mass/Vol]Or dered By: Margaret Delgado on 11-14-2021 MCHC (RBC) [Mass/Vol] 34.0 g/dL 32.5-35.6 [facility] MCV Auto (RBC) [Entitic vol] Ordered By: Margaret Delgado on 11-14-2021 MCV (RBC) [Entitic vol] 90.9 fL 83.5-101 [facility] Monocytes Auto (Bld) [#/Vol] Ordered By: Margaret Delgado on 11-14-2021 Monocytes (Bld) [#/Vol] 0.7 10*3/uL 0.0-0.8 [facility] Monocytes/100 WBC Auto (Bld) Ordered By: Margaret Delgado on 11-14-2021 Monocytes/100 WBC (Bld) 8.0 % . [facility] Neutrophils Auto (Bld) [#/Vo l]Ordered By: Margaret Delgado on 11-14-2021 Neutrophils (Bld) [#/Vol] 5.5 10*3/uL 1.8-7.7 [facility] Neutrophils/100 WBC Auto (Bl d)Ordered By: Margaret Delgado on 11-14-2021 Neutrophils/100 WBC (Bld) 58.6 % . [facility] No Panel InformationOrdered By: Margaret Delgado on 11-14-2021 Estimated GFR () 58 mL/Min [facility] Comment on above: GFR estimated refere nce range: According to KDOQI guidelines, <60 ml/min/1.73m2 is sufficient to diagnose a patient with chronic kidney disease. Pharmacy Creatinine Clearance (Chem 57.47 [facility] Platelet mean volume Auto (B ld) [Entitic vol]Ordered By: Margaret Delgado on 11-14-2021 Platelet mean volume (Bld) [Entitic vol] 9.0 fL 6.6-10.1 [facility] Platelets Auto (Bld) [#/Vol] Ordered By: Margaret Delgado on 11-14-2021 Platelets (Bld) [#/Vol] 229 10*3/uL 150-450 [facility] Protein [Mass/volume] in Ser um or PlasmaOrdered By: Margaret Delgado on 11-14-2021 Protein [Mass/Vol] 7.6 g/dL 6.1-7.9 [facility] RBC Auto (Bld) [#/Vol]Ordere d By: Margaret Delgado on 11-14-2021 RBC (Bld) [#/Vol] 4.13 10*6/uL 3.90-5.60 [facility] Serum or plasma alanine webster otransferase measurement without P-5'-P (enzymatic activiOrdered By: Margaret Delgado on 11-14-2021 ALT No additional P-5'-P [Catalytic activity/Vol] 46 U/L 10-60 [facility] Serum or plasma albumin/glob ulin mass ratioOrdered By: Margaret Delgado on 11-14-2021 Albumin/Globulin [Mass ratio] 1.1 {ratio} [facility] Serum or plasma alkaline queenie sphatase measurement (enzymatic activity/volume)Ordered By: Margaret Delgado on 11-14-2021 ALP [Catalytic activity/Vol] 159 U/L 32-92 [facility] Serum or plasma anion gap de terminationOrdered By: Margaret Delgado on 11-14-2021 Anion gap [Moles/Vol] 14.9 mmol/L 6.0-15.0 [facility] Serum or plasma aspartate am inotransferase measurement (enzymatic activity/volume)Ordered By: Margaret Delgado on 11-14-2021 AST [Catalytic activity/Vol] 40 U/L 10-42 [facility] Serum or plasma calcium maine urement (mass/volume)Ordered By: Margaret Delgado on 11-14-2021 Calcium [Mass/Vol] 10.2 mg/dL 8.2-10.2 [facility] Serum or plasma cancer antig en 19-9 measurement (units/volume)Ordered By: Margaret Delgado on 11-14-2021 Cancer Ag 19-9 Qn 21 [arb'U]/mL 0-35 [facility] Comment on above: [facility] [employer] El ectrochemiluminescence Immunoassay (ECLIA) Values obtained with different assay methods or kits cannot be used interchangeably. Results cannot be interpreted as absolute evidence of the presence or absence of malignant disease. Performed at: [facility] [address] [id number] Garment Worker: Flaco Pineda PhD, Phone: [phone] [facility] [employer] El ectrochemiluminescence Immunoassay(ECLIA)Values obtained with different assay methods or kits cannotbe used interchangeably. Results cannot be interpreted asabsolute evidence of the presence or absence of malignantdisease.Performed at: [facility] [address] [id number] Director: Flaco Pineda PhD, Phone: [phone] Serum or plasma chloride vicky surement (moles/volume)Ordered By: Margaret Delgado on 11-14-2021 Chloride [Moles/Vol] 100 mmol/L 95-114 [facility] Serum or plasma glucose maine urement (mass/volume)Ordered By: Margaret Delgado on 11-14-2021 Glucose [Mass/Vol] 139 mg/dL 70-100 [facility] Comment on above: ADA recommended refe [...] on 11-14-2021 Potassium [Moles/Vol] 5.0 mmol/L 3.5-5.1 [facility] Serum or plasma sodium measu rement (moles/volume)Ordered By: Margaret Delgado on 11-14-2021 Sodium [Moles/Vol] 132 mmol/L 136-146 [facility] Serum or plasma total biliru bin measurement (mass/volume)Ordered By: Margaret Delgado on 11-14-2021 Bilirubin [Mass/Vol] 0.4 mg/dL 0.3-1.2 [facility] Serum or plasma total carbon dioxide measurement (moles/volume)Ordered By: Margaret Delgado on 11-14-2021 CO2 [Moles/Vol] 22.1 mmol/L 22.0-30.0 [facility] Serum or plasma urea nitroge n measurement (mass/volume)Ordered By: Margaret Delgado on 11-14-2021 Urea nitrogen [Mass/Vol] 41 mg/dL 12-01 [facility] Elastase.pancreatic [Mass/ma ss] in StoolOrdered By: Andrew Vazquez on 11-01-2021 Elastase.pancreatic (Stl) [Mass/Mass] <50 >200 [facility] Comment on above: Result Units: ug Thais st./g Results verified by repeat testing Severe Pancreatic Insufficiency: <100 Moderate Pancreatic Insufficiency: 100 - 200 Normal: >200 Performed at: - [facility] [address] [place] [id number] Garment Worker: Anu Alvarado MD, Phone: [phone] Result Units: ug Thais st./gResults verified by repeat testing Severe Pancreatic Insufficiency: <100 Moderate Pancreatic Insufficiency: 100 - 200 Normal: >200Performed at: [employer] [facility] [address] [id number] Director: Anu Alvarado MD, Phone: [phone] CT Chest w/Contraston 2021 CT Chest w/Contrast [...] by Rekha Campbell on 09/26/2021 1541 Normal [facility] [employer] Basophils Auto (Bld) [#/Vol] Ordered By: Andrew Vazquez on 08-30-2021 Basophils (Bld) [#/Vol] 0.1 10*3/uL 0.0-0.2 [facility] Basophils/100 WBC Auto (Bld) Ordered By: Andrew Vazquez on 08-30-2021 Basophils/100 WBC (Bld) 0.9 % . [facility] Blood hemoglobin measurement (mass/volume)Ordered By: Andrew Vazquez on 08-30-2021 Hemoglobin (Bld) [Mass/Vol] 12.6 g/dL 13.0-17.0 [facility] Blood leukocytes automated c ount (number/volume)Ordered By: Andrew Vazquez on 08-30-2021 WBC (Bld) [#/Vol] 6.9 10*3/uL 4.5-11.0 [facility] Body fluid albumin measureme nt (mass/volume)Ordered By: Andrew Vazquez on 08-30-2021 Albumin (Body fld) [Mass/Vol] 3.9 g/dL 3.2-5.5 [facility] Creatinine and Glomerular fi ltration rate.predicted panel (S/P/Bld)Ordered By: Andrew Vazquez on 08-30-2021 Creatinine [Mass/Vol] 1.57 mg/dL 0.64-1.27 [facility] Eosinophils Auto (Bld) [#/Vo l]Ordered By: Andrew Vazquez on 08-30-2021 Eosinophils (Bld) [#/Vol] 0.3 10*3/uL 0.0-0.45 [facility] Eosinophils/100 WBC Auto (Bl d)Ordered By: Andrew Vazquez on 08-30-2021 Eosinophils/100 WBC (Bld) 4.5 % . [facility] Erythrocyte distribution wid th Auto (RBC) [Ratio]Ordered By: Andrew Vazquez on 08-30-2021 Erythrocyte distribution width (RBC) [Ratio] 13.8 % 12.0-14.8 [facility] Estimated glomerular filtrat ion rate (GFR) non- AmericanOrdered By: Andrew Vazquez on 08-30-2021 GFR/1.73 sq M.predicted among non-blacks MDRD (S/P/Bld) [Vol rate/Area] 45 mL/Min [facility] Globulin Calc (S) [Mass/Vol] Ordered By: Andrew Vazquez on 08-30-2021 Globulin (S) [Mass/Vol] 3.2 g/dL [facility] Hematocrit Auto (Bld) [Volum e fraction]Ordered By: Andrew Vazquez on 08-30-2021 Hematocrit (Bld) [Volume fraction] 36.5 % 38.8-50.0 [facility] Hepatitis C virus RNA [log u nits/volume] (viral load) in Serum or Plasma by ANN withOrdered By: Andrew Vazquez on 08-30-2021 HCV RNA ANN+probe [Log units/Vol] Not detected . [facility] - Chemistry and C hemistry - challengeOrdered By: Andrew Vazquez on 08-30-2021 Amylase [Catalytic activity/Vol] 52 U/L 7-64 [facility] - CoagulationOrde red By: Andrew Vazquez on 08-30-2021 PT Coag (PPP) [Time] 11.3 s 9.0-12.9 [facility] - Hematology and Cell countsOrdered By: Andrew Vazquez on 08-30-2021 Nucleated RBC/100 WBC (Bld) [Ratio] 0.1 % 0-0.5 [facility] Lymphocytes Auto (Bld) [#/Vo l]Ordered By: Andrew Vazquez on 08-30-2021 Lymphocytes (Bld) [#/Vol] 2.2 10*3/uL 1.00-4.8 [facility] Lymphocytes/100 WBC Auto (Bl d)Ordered By: Andrew Vazquez on 08-30-2021 Lymphocytes/100 WBC (Bld) 32.4 % . [facility] MCH Auto (RBC) [Entitic mass ]Ordered By: Andrew Vazquez on 08-30-2021 MCH (RBC) [Entitic mass] 30.8 pg 27.5-35.2 [facility] MCHC Auto (RBC) [Mass/Vol]Or dered By: Andrew Vazquez on 08-30-2021 MCHC (RBC) [Mass/Vol] 34.5 g/dL 32.5-35.6 [facility] MCV Auto (RBC) [Entitic vol] Ordered By: Andrew Vazquez on 08-30-2021 MCV (RBC) [Entitic vol] 89.4 fL 83.5-101 [facility] Monocyte %Ordered By: Ruba Vazquez on 08-30-2021 Monocyte % 10 umol/L 11-35 [facility] Monocytes Auto (Bld) [#/Vol] Ordered By: Andrew Vazquez on 08-30-2021 Monocytes (Bld) [#/Vol] 0.5 10*3/uL 0.0-0.8 [facility] Monocytes/100 WBC Auto (Bld) Ordered By: Andrew Vazquez on 08-30-2021 Monocytes/100 WBC (Bld) 6.8 % . [facility] Neutrophils Auto (Bld) [#/Vo l]Ordered By: Andrew Vazquez on 08-30-2021 Neutrophils (Bld) [#/Vol] 3.8 10*3/uL 1.8-7.7 [facility] Neutrophils/100 WBC Auto (Bl d)Ordered By: Andrew Vazquez on 08-30-2021 Neutrophils/100 WBC (Bld) 55.4 % . [facility] No Panel InformationOrdered By: Andrew Vazquez on 08-30-2021 Estimated GFR () 54 mL/Min [facility] Comment on above: GFR estimated refere nce range: According to KDOQI guidelines, <60 ml/min/1.73m2 is sufficient to diagnose a patient with chronic kidney disease. Hepatitis C RNA (PCR) Interpret See comment . [facility] Comment on above: The quantitative ran ge of this assay is 15 IU/mL to 100 million IU/mL. Performed at: - [facility] [id number] Garment Worker: Anu Alvarado MD, Phone: [phone] Pharmacy Creatinine Clearance (Chem N/A [facility] Platelet mean volume Auto (B ld) [Entitic vol]Ordered By: Andrew Vazquez on 08-30-2021 Platelet mean volume (Bld) [Entitic vol] 8.8 fL 6.6-10.1 [facility] Platelet poor plasma interna tional normalized ratio (INR) by coagulation assay (relatOrdered By: Andrew Vazquez on 08-30-2021 INR Coag (PPP) [Relative time] 1.0 {INR} [facility] Comment on above: INR Therapeutic Rang [...] 08-30-2021 Platelets (Bld) [#/Vol] 217 10*3/uL 150-450 [facility] Protein [Mass/volume] in Ser um or PlasmaOrdered By: Andrew Vazquez on 08-30-2021 Protein [Mass/Vol] 7.1 g/dL 6.1-7.9 [facility] RBC Auto (Bld) [#/Vol]Ordere d By: Andrew Vazquez on 08-30-2021 RBC (Bld) [#/Vol] 4.08 10*6/uL 3.90-5.60 [facility] Serum or plasma alanine webster otransferase measurement without P-5'-P (enzymatic activiOrdered By: Andrew Vazquez on 08-30-2021 ALT No additional P-5'-P [Catalytic activity/Vol] 27 U/L 10-60 [facility] Serum or plasma albumin/glob ulin mass ratioOrdered By: Andrew Vazquez on 08-30-2021 Albumin/Globulin [Mass ratio] 1.2 {ratio} [facility] Serum or plasma alkaline queenie sphatase measurement (enzymatic activity/volume)Ordered By: Andrew Vazquez on 08-30-2021 ALP [Catalytic activity/Vol] 107 U/L 32-92 [facility] Serum or plasma aspartate am inotransferase measurement (enzymatic activity/volume)Ordered By: Andrew Vazquez on 08-30-2021 AST [Catalytic activity/Vol] 29 U/L 10-42 [facility] Serum or plasma calcium maine urement (mass/volume)Ordered By: Andrew aVzquez on 08-30-2021 Calcium [Mass/Vol] 9.5 mg/dL 8.2-10.2 [facility] Serum or plasma chloride vicky surement (moles/volume)Ordered By: Andrew Vazquez on 08-30-2021 Chloride [Moles/Vol] 100 mmol/L 95-114 [facility] Serum or plasma glucose maine urement (mass/volume)Ordered By: Andrew Vazquez on 08-30-2021 Glucose [Mass/Vol] 301 mg/dL 70-100 [facility] Comment on above: ADA recommended refe rence range Random Glucose Reference Range is dependent on time and content of last meal. Glucose of more than 200 mg/dL in a nonstressed, ambulatory subject supports the diagnosis of Diabetes Mellitus. Serum or plasma potassium me asurement (moles/volume)Ordered By: Andrew Vazquez on 08-30-2021 Potassium [Moles/Vol] 4.5 mmol/L 3.5-5.1 [facility] Serum or plasma sodium measu rement (moles/volume)Ordered By: Andrew Vazquez on 08-30-2021 Sodium [Moles/Vol] 133 mmol/L 136-146 [facility] Serum or plasma total biliru bin measurement (mass/volume)Ordered By: Andrew Vazquez on 08-30-2021 Bilirubin [Mass/Vol] 0.3 mg/dL 0.3-1.2 [facility] Serum or plasma total carbon dioxide measurement (moles/volume)Ordered By: Andrew Vazquez on 08-30-2021 CO2 [Moles/Vol] 23.7 mmol/L 22.0-30.0 [facility] Serum or plasma urea nitroge n measurement (mass/volume)Ordered By: Andrew Vazquez on 08-30-2021 Urea nitrogen [Mass/Vol] 32 mg/dL 12-01 [facility] Glucose Glucometer (BldC) [M ass/Vol]Ordered By: Margaret Delgado on 08-09-2021 Glucose [Mass/Vol] 138 mg/dL [facility] Comment on above: Random Glucose Refer [...] by Murray Moscoso on 07/27/2021 1422 Normal [facility] [employer] Blood anisocytosis detection on 07-25-2020 Anisocytosis Ql (Bld) Slight [facility] Anisocytosis Ql (Bld) Blood anisocytosis detection [facility] Laboratory - Chemistry and C hemistry - challengeon 07-25-2020 Magnesium [Mass/Vol] 1.7 mg/dL 1.6-2.6 [facility] No Panel Informationon 07-25 Dohle Bodies Slight [facility] Platelet Estimate Normal Normal [facility] Platelet Morphology Comment Normal Normal [facility] Poikilocytosis Slight [facility] Ovalocyte detectionon 2020 Ovalocytes LM Ql (Bld) Slight [facility] Ovalocytes LM Ql (Bld) Ovalocyte detection [facility] RBC morphologyon 07-25-2020 RBC morphology finding Nom (Bld) N/A [facility] RBC morphology finding Nom (Bld) RBC morphology [facility] Teardrop cell detectionon Dacrocytes LM Ql (Bld) Rare [facility] Dacrocytes LM Ql (Bld) Teardrop cell detection [facility] Macrocytes detectionon 07-04 Macrocytes Ql (Bld) Slight [facility] Macrocytes Ql (Bld) Macrocytes detection [facility] Basophil percentageon 2020 Basophil percentage Basophil percentage 1-3 [facility] Eosinophils/100 WBC (Bld) 1 % 1-3 [facility] Blood polychromasia detectio n by light microscopyon 06-20-2020 Polychromasia LM Ql (Bld) Moderate [facility] Laboratory - Hematology and Cell countson 06-20-2020 Band form neutrophils/100 WBC (Bld) 2 % 0-5 [facility] Lymphocytes/100 WBC Auto (Bl d)on 06-20-2020 Lymphocytes/100 WBC (Bld) 35 % [facility] Lymphocytes/100 WBC (Bld) Lymphocytes/100 leukocytes in Blood by Automated count [facility] Metamyelocytes/100 WBC Manua l cnt (Bld)on 06-20-2020 Metamyelocytes/100 WBC (Bld) 1 % High 0-0 [facility] Metamyelocytes/100 WBC (Bld) Metamyelocytes/100 leukocytes in Blood by Manual count High 0-0 [facility] Monocyte %on 06-20-2020 Monocytes/100 WBC (Bld) 1 % 1-3 [facility] Monocytes/100 WBC Manual cnt (Bld)on 06-20-2020 Monocytes/100 WBC (Bld) 3 % 2-11 [facility] Monocytes/100 WBC (Bld) Monocytes/100 leukocytes in Blood by Manual count 2- [facility] Myelocytes/100 WBC Manual cn t (Bld)on 06-20-2020 Myelocytes/100 WBC (Bld) 2 % High 0-0 [facility] Myelocytes/100 WBC (Bld) Myelocytes/100 leukocytes in Blood by Manual count High 0-0 [facility] Polychromasia [Presence] in Blood by Light microscopyon 06-20-2020 Polychromasia LM Ql (Bld) Polychromasia [Presence] in Blood by Light microscopy [facility] Segmented neutrophils/100 WB C Manual cnt (Bld)on 06-20-2020 Segmented neutrophils/100 WBC (Bld) 56 % 50-70 [facility] Segmented neutrophils/100 WBC (Bld) Manual blood segmented neutrophils/100 leukocytes 50-70 [facility] No Panel Informationon 05-25 Bedside Glucose Comment Glu2: cleaned meter [facility] Metabolic Panelon 02-16-2020 Glucose [Mass/Vol] 136 mg/dL above high threshold 74 - 99 SO-Llvjggf-[facility] Work Phone: [phone] Glucose [Mass/Vol] 153 mg/dL above high threshold 74 - 99 ET-Zwvfmea[facility] Work Phone: Glucose [Mass/Vol] 186 mg/dL above high threshold 74 - 99 MF-Thhjqzo[facility] Work Phone: [phone] Blood Gason 02-15-2020 HCO3 (Bld) [Moles/Vol] 23.7 mmol/L See Below M G-Surgery[facility] Work Phone: [phone] Comment on above: Reference Range: 22. 0 - 26.0 Oxygen (Bld) [Partial pressure] 120 {mmHg} above high threshold 85 - 95 WJ-Twyurbf[facility] Work Phone: [phone] HCO3 (Bld) [Moles/Vol] 20.6 mmol/L below low threshold See Below RY-Zjgfkpj[facility] Work Phone: Comment on above: Reference Range: 22. 0 - 26.0 Oxygen (Bld) [Partial pressure] 121 {mmHg} above high threshold 85 - 95 TU-Nxewadt-[facility] Work Phone: HCO3 (Bld) [Moles/Vol] 23.7 mmol/L See Below M G[facility] Work Phone: Comment on above: Reference Range: 22. 0 - 26.0 Oxygen (Bld) [Partial pressure] 193 {mmHg} above high threshold 85 - 95 JD-Prngosm-[facility] Work Phone: [phone] HCO3 (Bld) [Moles/Vol] 23.7 mmol/L See Below M G[facility] Work Phone: Comment on above: Reference Range: 22. 0 - 26.0 Oxygen (Bld) [Partial pressure] 180 {mmHg} above high threshold 85 - 95 PF-Wwakaum-[facility] Work Phone: HCO3 (Bld) [Moles/Vol] 22.2 mmol/L See Below M G-[facility] Work Phone: Comment on above: Reference Range: 22. 0 - 26.0 Oxygen (Bld) [Partial pressure] 162 {mmHg} above high threshold 85 - 95 MG-Enkyqtn-[facility] Work Phone: HCO3 (Bld) [Moles/Vol] 22.2 mmol/L See Below M G[facility] Work Phone: Comment on above: Reference Range: 22. 0 - 26.0 Oxygen (Bld) [Partial pressure] 134 {mmHg} above high threshold 85 - 95 EK-Lgrpyxn-[facility] Work Phone: HCO3 (Bld) [Moles/Vol] 22.7 mmol/L See Below M G[facility] Work Phone: Comment on above: Reference Range: 22. 0 - 26.0 Oxygen (Bld) [Partial pressure] 180 {mmHg} above high threshold 85 - 95 LC-Myyyxrg-[facility] Work Phone: Cult, Fungus +smearon 2019 Fungus identified Cx Nom (Unsp spec) PATIENT: ALTAGRACIA CONWAY LOCATION: C600 M43JSKS#: [id number] : 55 AGE: SEX: M ORDERED BY: ANGEL GUILLAUME: WOUND/ABSCESS COLLECTED: 02/15/20 12:32ANTIBIOTICS AT [facility].: RECEIVED : 02/15/20 23:23SITE: BILE R E S U L T S FUNGAL CULTURE/SM, MISC PRELIM 02/16/20 08:23 CULTURE IS IN PROGRESS A REPORT WILL BE ISSUED EITHER WHEN POSITIVE OR AFTER TWO WEEKS INCUBATION. RH-Dwtshcp-[facility] Work Phone: Fungus identified Cx Nom (Unsp spec) PATIENT: ALTAGRACIA CONWAY [place] [facility] [place] [id number] : 55 AGE: SEX: M ORDERED BY: ANGEL GUILLAUME: WOUND/ABSCESS COLLECTED: 02/15/20 09:00ANTIBIOTICS AT [facility]AM[facility].: RECEIVED : SITE: R E S U L T S FUNGAL SMEAR CANCELLED 02/15/20 12:31 FUNGAL CULTURE/SM, MISC CANCELLED 02/15/20 12:31 VJ-Cartada[facility] Work Phone: Comment on above: TEST FUNGAL CULTURE/ SM, MISC WAS CANCELLED, 02/15/2020 12:31 Cult, Misc + smearon 020 Bacteria identified Cx Nom (Unsp spec) PATIENT: ALTAGRACIA CONWAY LOCATION: [place] TMORBILL#: [id number] : 55 AGE: SEX: M ORDERED BY: , SOURCE: WOUND/ABSCESS COLLECTED: 02/15/20 09:00ANTIBIOTICS AT [facility].: RECEIVED : SITE: BILE R E S U L T S GRAM STAIN CANCELLED 02/15/20 12:31 MISCELLANEOUS CULT./SM.BACT. CANCELLED 02/15/20 12:31 [facility] Work Phone: Comment on above: TEST MISCELLANEOUS C ULT./SM.BACT. WAS CANCELLED, 02/15/2020 12:31Ordering Provider: JESÚS Bacteria identified Cx Nom (Unsp spec) PATIENT: ALTAGRACIA CONWAY LOCATION: [address]#: [id number] : 55 AGE: SEX: M ORDERED BY: ANGEL GUILLAUME: WOUND/ABSCESS COLLECTED: 02/15/20 09:00ANTIBIOTICS AT [facility].: RECEIVED : 02/15/20 23:24SITE: BILE R E S U L T S GRAM STAIN FINAL 02/16/20 00:23 NO GRANULOCYTES SEEN. 1+ GRAM (+) BACILLI. MISCELLANEOUS CULT./SM.BACT. PRELIM 02/16/20 11:02 NO GROWTH, CULTURE IN PROGRESS. BK[facility]ngz[facility] Work Phone: Hematologyon 02-15-2020 Hematocrit (Bld) [Volume fraction] 31.1 % below low threshold See Below ND[facility]Pzcagak[facility] Work Phone: Comment on above: Reference Range: 41. 0 - 52.0 Hemoglobin (Bld) [Mass/Vol] 10.7 g/dL below low threshold See Below PM-Ogmqpbs[facility] [place] [facility] Work Phone: Comment on above: Reference Range: 13. 5 - 17.5 MCV (RBC) [Entitic vol] 85 fL 80 - 100 [facility] Work Phone: Platelets (Bld) [#/Vol] 166 {x10E9/L} 150 - 450 UV[facility]Tjuplel[facility] Work Phone: [phone] RBC (Bld) [#/Vol] 3.65 {x10E12/L} below low threshold See Below GC-Dkhwitf-[place] [facility] Work Phone: Comment on above: Reference Range: 4.5 0 - 5.90 WBC (Bld) [#/Vol] 9.5 {x10E9/L} 4.4 - 11.3 MG-S urgery-[facility] [place] [facility] Work Phone: WBC (Bld) [#/Vol] 0.0 {/100_WBC} 0.0-0.0 MG- Surgery[facility] Work Phone: Hematocrit (Bld) [Volume fraction] 29.0 % below low threshold See Below RB-Kyuqzzf[facility] Work Phone: Comment on above: Reference Range: 41. 0 - 52.0 Hemoglobin (Bld) [Mass/Vol] 9.9 g/dL below low threshold See Below OP-Pemfvtc-[place] [facility] Work Phone: Comment on above: Reference Range: 13. 5 - 17.5 pH (Bld) 7.35 [pH] below low threshold See Below QC-Kdbclcz-[facility] [place] [facility] Work Phone: Comment on above: Reference Range: 7.3 8 - 7.42 aPTT Coag (PPP) [Time] 26 {sec} 25 - 35 MG -Surgery-[facility] [place] [facility] Work Phone: Comment on above: THE APTT IS NO LONGE R USED FOR MONITORING UNFRACTIONATED HEPARIN THERAPY. FOR MONITORING HEPARIN THERAPY, USE THE HEPARIN ASSAY. Hematocrit (Bld) [Volume fraction] 33.3 % below low threshold See Below CV-Guzsuba-[facility] [place] [facility] Work Phone: Comment on above: Reference Range: 41. 0 - 52.0 Hemoglobin (Bld) [Mass/Vol] 11.5 g/dL below low threshold See Below JQ-Drmbbng-[place] [facility] Work Phone: Comment on above: Reference Range: 13. 5 - 17.5 INR Coag (PPP) [Relative time] 1.2 {INR} above high threshold 0.9 - 1.1 WR-Uoxirbr-[place] [facility] Work Phone: [phone] MCV (RBC) [Entitic vol] 87 fL 80 - 100 M G[facility] Work Phone: Platelets (Bld) [#/Vol] 191 {x10E9/L} 150 - 450 WI-Vshzern-[facility] Work Phone: PT Coag (PPP) [Time] 13.7 {sec} above high threshold See Below VH-Ustkevi[facility] Work Phone: Comment on above: Reference Range: 10. 1 - 13.3 RBC (Bld) [#/Vol] 3.84 {x10E12/L} below low threshold See Below GH-Ulmsxzm-[facility] Work Phone: Comment on above: Reference Range: 4.5 0 - 5.90 WBC (Bld) [#/Vol] 0.0 {/100_WBC} 0.0-0.0 MG- Surgery-[facility] Work Phone: WBC (Bld) [#/Vol] 11.2 {x10E9/L} 4.4 - 11.3 MG- Surgery[facility] Work Phone: Hematocrit (Bld) [Volume fraction] 32.0 % below low threshold See Below OZ-Mhvjozz-[facility] Work Phone: [phone] Comment on above: Reference Range: 41. 0 - 52.0 Hemoglobin (Bld) [Mass/Vol] 10.9 g/dL below low threshold See Below PY-Bmituxb-[facility] Work Phone: [phone] Comment on above: Reference Range: 13. 5 - 17.5 pH (Bld) 7.33 [pH] below low threshold See Below TB-Mcyjiam-[facility] Work Phone: [phone] Comment on above: Reference Range: 7.3 8 - 7.42 Hematocrit (Bld) [Volume fraction] 30.0 % below low threshold See Below VE-Adxwivy-[facility] Work Phone: [phone] Comment on above: Reference Range: 41. 0 - 52.0 Hemoglobin (Bld) [Mass/Vol] 10.2 g/dL below low threshold See Below UW-Beknaft-[facility] Work Phone: Comment on above: Reference Range: 13. 5 - 17.5 pH (Bld) 7.36 [pH] below low threshold See Below WK-Yhhulhf-[facility] Work Phone: Comment on above: Reference Range: 7.3 8 - 7.42 Hematocrit (Bld) [Volume fraction] 32.0 % below low threshold See Below ZT-Crsnybu-[facility] Work Phone: Comment on above: Reference Range: 41. 0 - 52.0 Hemoglobin (Bld) [Mass/Vol] 10.9 g/dL below low threshold See Below CD-Pwcncsa-[facility] Work Phone: Comment on above: Reference Range: 13. 5 - 17.5 pH (Bld) 7.37 [pH] below low threshold See Below GH-Sphnans-[facility] Work Phone: Comment on above: Reference Range: 7.3 8 - 7.42 Hematocrit (Bld) [Volume fraction] 35.0 % below low threshold See Below QG-Zzgwvuv-[facility] Work Phone: Comment on above: Reference Range: 41. 0 - 52.0 Hemoglobin (Bld) [Mass/Vol] 11.9 g/dL below low threshold See Below QH-Wmfhamb-[facility] Work Phone: Comment on above: Reference Range: 13. 5 - 17.5 pH (Bld) 7.32 [pH] below low threshold See Below HY-Xjwmxdb-[facility] Work Phone: Comment on above: Reference Range: 7.3 8 - 7.42 Hematocrit (Bld) [Volume fraction] 36.0 % below low threshold See Below WG-Skcctpv-[facility] Work Phone: Comment on above: Reference Range: 41. 0 - 52.0 Hemoglobin (Bld) [Mass/Vol] 12.2 g/dL below low threshold See Below BA-Zbcevkp-[facility] Work Phone: [phone] Comment on above: Reference Range: 13. 5 - 17.5 pH (Bld) 7.31 [pH] below low threshold See Below EO-Wsyryae-[facility] Work Phone: Comment on above: Reference Range: 7.3 8 - 7.42 Hematocrit (Bld) [Volume fraction] 38.0 % below low threshold See Below YJ-Xoseblj-[facility] Work Phone: Comment on above: Reference Range: 41. 0 - 52.0 Hemoglobin (Bld) [Mass/Vol] 12.9 g/dL below low threshold See Below XG-Qvnkefp[facility] [facility] Work Phone: Comment on above: Reference Range: 13. 5 - 17.5 pH (Bld) 7.34 [pH] below low threshold See Below RF-Vbeltij-[facility] [place] [facility] Work Phone: Comment on above: Reference Range: 7.3 8 - 7.42 ABO group Nom (Bld) A MG-Ramirez rgery-[place] [facility] Work Phone: Rh immune globulin screen (Bld) [Interp] Positive MG-Surgery -[facility] [place] [facility] Work Phone: Hemoglobin A1Con 02-15-2020 HbA1c (Bld) [Mass fraction] 329 {MG/DL} JN-Ngqstji-[facility] [place] [facility] Work Phone: HbA1c (Bld) [Mass fraction] 13.1 % AV-Wafuvuc-[facility] [place] [facility] Work Phone: Comment on above: Diagnosis of Diabete s-Adults Non-Diabetic: < or = 5.6% Increased risk for developing diabetes: 5.7-6.4% Diagnostic of diabetes: > or = 6.5%. Monitoring of Diabetes Age (y) Therapeutic Goal (%) Adults: >18 <7.0 Pediatrics: 13-18 <7.5 7-12 <8.0 0- 6 7.5-8.5 [employer]. Diabetes Care 33(S1), Mar 2009. Metabolic Panelon 02-15-2020 ALP [Catalytic activity/Vol] 43 U/L 33 - 136 OD-Qwlnwkc-[facility] [place] [facility] Work Phone: Anion gap [Moles/Vol] 15 mmol/L 10 - 20 MG- Surgery-[facility] Work Phone: [phone] Bilirubin [Mass/Vol] 0.5 mg/dL 0.0 - 1.2 MG-S urgery-[facility] Work Phone: [phone] Calcium [Mass/Vol] 8.5 mg/dL below low threshold 8.6 - 10.6 VC-Uaoaurc-[facility] Work Phone: [phone] Chloride [Moles/Vol] 102 mmol/L 98 - 107 MG-S urgery-[facility] Work Phone: [phone] CO2 [Moles/Vol] 23 mmol/L 21 - 32 MG-Surger y-[facility] Work Phone: [phone] Creatinine [Mass/Vol] 1.29 mg/dL See Below MG- Surgery-[facility] Work Phone: Comment on above: Reference Range: 0.5 0 - 1.30 Glucose [Mass/Vol] 222 mg/dL above high threshold 74 - 99 BK-Bzeisgr-[facility] Work Phone: Potassium [Moles/Vol] 4.6 mmol/L 3.5 - 5.3 MG- Surgery-[facility] Work Phone: Protein [Mass/Vol] 5.7 g/dL below low threshold 6.4 - 8.2 RK-Telgvao-[facility] Work Phone: [phone] Sodium [Moles/Vol] 135 mmol/L below low threshold 136 - 145 CD-Zosqwqz-[facility] Work Phone: [phone] Urea nitrogen [Mass/Vol] 41 mg/dL above high threshold 6 - 23 XM-Lweuilj-[facility] Work Phone: [phone] Calcium.ionized (Bld) [Moles/Vol] 1.11 mmol/L See Below RA-Nkorbyo-[facility] Work Phone: Comment on above: Reference Range: 1.1 0 - 1.33 Chloride [Moles/Vol] 106 mmol/L 98 - 107 MG-S urgery-[facility] Work Phone: [phone] CO2 (Bld) [Partial pressure] 43 {mmHg} above high threshold 38 - 42 ST-Bycaskf-[facility] Work Phone: [phone] Glucose [Mass/Vol] 220 mg/dL above high threshold 74 - 99 PZ-Izcqvfu-[facility] Work Phone: [phone] Lactate [Moles/Vol] 1.6 mmol/L 0.4 - 2.0 MG-Ramirez rgery-[facility] Work Phone: [phone] Potassium [Moles/Vol] 4.4 mmol/L 3.5 - 5.3 MG- Surgery-[facility] Work Phone: [phone] Sodium [Moles/Vol] 135 mmol/L below low threshold 136 - 145 NF-Pfdamwz-[facility] Work Phone: [phone] ALP [Catalytic activity/Vol] 48 U/L 33 - 136 XB-Qinipuh-[facility] Work Phone: [phone] Anion gap [Moles/Vol] 18 mmol/L 10 - 20 MG- Surgery-[facility] Work Phone: [phone] Bilirubin [Mass/Vol] 0.7 mg/dL 0.0 - 1.2 MG-S urgery-[facility] Work Phone: [phone] Calcium [Mass/Vol] 9.0 mg/dL 8.6 - 10.6 MG-Donn mo-[facility] Work Phone: [phone] Chloride [Moles/Vol] 100 mmol/L 98 - 107 MG-S urgery-[facility] Work Phone: [phone] CO2 [Moles/Vol] 22 mmol/L 21 - 32 MG-Surger y-[facility] Work Phone: [phone] Creatinine [Mass/Vol] 1.46 mg/dL above high threshold See Below QI-Gqpcozx-[facility] Work Phone: [phone] Comment on above: Reference Range: 0.5 0 - 1.30 Glucose [Mass/Vol] 179 mg/dL above high threshold 74 - 99 CH-Nsvyefi-[facility] Work Phone: [phone] Potassium [Moles/Vol] 4.6 mmol/L 3.5 - 5.3 MG- Surgery-W [facility] Work Phone: [phone] Protein [Mass/Vol] 6.1 g/dL below low threshold 6.4 - 8.2 FI-Mleixhz-U [facility] Work Phone: [phone] Sodium [Moles/Vol] 135 mmol/L below low threshold 136 - 145 DR-Evfjtxi-I [facility] Work Phone: [phone] Urea nitrogen [Mass/Vol] 47 mg/dL above high threshold 6 - 23 GU-Vhebdbh-M [facility] Work Phone: [phone] Calcium.ionized (Bld) [Moles/Vol] 1.10 mmol/L See Below GN-Ufefdto-L [facility] Work Phone: [phone] Comment on above: Reference Range: 1.1 0 - 1.33 Chloride [Moles/Vol] 104 mmol/L 98 - 107 MG-S urgery-W [facility] Work Phone: [phone] CO2 (Bld) [Partial pressure] 39 {mmHg} 38 - 42 HW-Pfokbru-R [facility] Work Phone: [phone] Glucose [Mass/Vol] 159 mg/dL above high threshold 74 - 99 FA-Pnboxsx-P [facility] Work Phone: [phone] Lactate [Moles/Vol] 1.7 mmol/L 0.4 - 2.0 MG-Ramirez rgery-W [facility] Work Phone: [phone] Potassium [Moles/Vol] 4.4 mmol/L 3.5 - 5.3 MG- Surgery-[facility] Work Phone: [phone] Sodium [Moles/Vol] 134 mmol/L below low threshold 136 - 145 HM-Iqnmmsf-S [facility] Work Phone: [phone] Calcium.ionized (Bld) [Moles/Vol] 1.15 mmol/L See Below QD-Prahlqd-T [facility] Work Phone: [phone] Comment on above: Reference Range: 1.1 0 - 1.33 Chloride [Moles/Vol] 104 mmol/L 98 - 107 MG-S urgery[facility] Work Phone: [phone] CO2 (Bld) [Partial pressure] 42 {mmHg} 38 - 42 LJ-Jwoywvx-L [facility] Work Phone: [phone] Glucose [Mass/Vol] 118 mg/dL above high threshold 74 - 99 SL-Ayhzpuv-D [facility] Work Phone: Lactate [Moles/Vol] 1.5 mmol/L 0.4 - 2.0 MG-Ramirez rgery-[facility] Work Phone: Potassium [Moles/Vol] 4.1 mmol/L 3.5 - 5.3 MG- [facility] Work Phone: Sodium [Moles/Vol] 134 mmol/L below low threshold 136 - 145 MK-Hsblvhn-[facility] Work Phone: Calcium.ionized (Bld) [Moles/Vol] 1.17 mmol/L See Below LL-Ektndtv-C [facility] Work Phone: [phone] Comment on above: Reference Range: 1.1 0 - 1.33 Chloride [Moles/Vol] 104 mmol/L 98 - 107 MG-S urgery[facility] Work Phone: [phone] CO2 (Bld) [Partial pressure] 41 {mmHg} 38 - 42 VF-Ltqtgos-[facility] Work Phone: Glucose [Mass/Vol] 124 mg/dL above high threshold 74 - 99 RV-Whbnuzn-B [facility] Work Phone: [phone] Lactate [Moles/Vol] 1.2 mmol/L 0.4 - 2.0 MG-Ramirez rgery-[facility] Work Phone: [phone] Potassium [Moles/Vol] 4.1 mmol/L 3.5 - 5.3 MG- [facility] Work Phone: [phone] Sodium [Moles/Vol] 133 mmol/L below low threshold 136 - 145 SY-Kojauax-C [facility] Work Phone: [phone] Calcium.ionized (Bld) [Moles/Vol] 1.21 mmol/L See Below BM-Nhamtbw-E [facility] Work Phone: [phone] Comment on above: Reference Range: 1.1 0 - 1.33 Chloride [Moles/Vol] 103 mmol/L 98 - 107 MG-S [facility]gery[facility] Work Phone: [phone] CO2 (Bld) [Partial pressure] 43 {mmHg} above high threshold 38 - 42 JU-Lbeemll-W [facility] Work Phone: [phone] Glucose [Mass/Vol] 161 mg/dL above high threshold 74 - 99 SR-Mrtjwen-T [facility] Work Phone: [phone] Lactate [Moles/Vol] 1.3 mmol/L 0.4 - 2.0 MG-Ramirez rgery-[facility] Work Phone: Potassium [Moles/Vol] 4.3 mmol/L 3.5 - 5.3 MG- [facility] Work Phone: [phone] Sodium [Moles/Vol] 132 mmol/L below low threshold 136 - 145 OL-Oujkyyr-J [facility] Work Phone: [phone] Calcium.ionized (Bld) [Moles/Vol] 1.21 mmol/L See Below NA-Gwxyosi-K [facility] Work Phone: [phone] Comment on above: Reference Range: 1.1 0 - 1.33 Chloride [Moles/Vol] 103 mmol/L 98 - 107 MG-S [facility]gery[facility] Work Phone: [phone] CO2 (Bld) [Partial pressure] 44 {mmHg} above high threshold 38 - 42 UQ-Mpcgata-Z [facility] Work Phone: [phone] Glucose [Mass/Vol] 185 mg/dL above high threshold 74 - 99 JK-Hcltbtk-L [facility] Work Phone: [phone] Lactate [Moles/Vol] 1.0 mmol/L 0.4 - 2.0 MG-Ramirez rgery-[facility] Work Phone: Potassium [Moles/Vol] 4.6 mmol/L 3.5 - 5.3 MG- [facility] Work Phone: [phone] Sodium [Moles/Vol] 131 mmol/L below low threshold 136 - 145 PH-Tgoccjh-U [facility] Work Phone: Calcium.ionized (Bld) [Moles/Vol] 1.24 mmol/L See Below RW-Rzppxmf-G [facility] Work Phone: Comment on above: Reference Range: 1.1 0 - 1.33 Chloride [Moles/Vol] 101 mmol/L 98 - 107 MG-S urgery[facility] Work Phone: CO2 (Bld) [Partial pressure] 42 {mmHg} 38 - 42 SL-Tztdfcs-Y [facility] Work Phone: Glucose [Mass/Vol] 143 mg/dL above high threshold 74 - 99 UF-Uokgzwq-E [facility] Work Phone: Lactate [Moles/Vol] 0.9 mmol/L 0.4 - 2.0 MG-Ramirez rgery-[facility] Work Phone: Potassium [Moles/Vol] 4.3 mmol/L 3.5 - 5.3 MG- [facility] Work Phone: Sodium [Moles/Vol] 132 mmol/L below low threshold 136 - 145 KM-Mxzcfmm-P [facility] Work Phone: [phone] Glucose [Mass/Vol] 162 mg/dL above high threshold 74 - 99 NI-Ldhllzv-P [facility] Work Phone: [phone] Otheron 02-15-2020 Albumin BCP dye [Mass/Vol] 3.7 g/dL 3.4 - 5.0 MC-Fvvhgcb-V [facility] Work Phone: ALT With P-5'-P [Catalytic activity/Vol] 60 U/L above high threshold 10 - 52 YJ-Uivvrty-[facility] Work Phone: Comment on above: Patients treated wit h Sulfasalazine may generate falsely decreased results for ALT. AST With P-5'-P [Catalytic activity/Vol] 65 U/L above high threshold 9 - 39 ZI-Jeifaoi-J [facility] Work Phone: [phone] Erythrocyte distribution width (RBC) [Ratio] 12.9 % See Below BY-Ctqwsew-F [facility] Work Phone: [phone] Comment on above: Reference Range: 11. 5 [...] (Bld) [Moles/Vol] 10 mmol/L 10 - 25 FH-Fsjdsbu-N [facility] Work Phone: [phone] -2.0 mmol/L -2.0 - 3.0 TF-Nsyvnlr-I [facility] Work Phone: % 94 - 100 NE-Itnmkhn-K [facility] Work Phone: [phone] Albumin BCP dye [Mass/Vol] 4.0 g/dL 3.4 - 5.0 PE-Cjdpzte-H [facility] Work Phone: [phone] ALT With P-5'-P [Catalytic activity/Vol] 64 U/L above high threshold 10 - 52 VV-Ocsuker-Y [facility] Work Phone: Comment on above: Patients treated wit h Sulfasalazine may generate falsely decreased results for ALT. AST With P-5'-P [Catalytic activity/Vol] 71 U/L above high threshold 9 - 39 XF-Rvecxcl-V [facility] Work Phone: [phone] Erythrocyte distribution width (RBC) [Ratio] 13.1 % See Below KH-Tiyeayp-E [facility] Work Phone: [phone] Comment on above: Reference Range: 11. 5 - 14.5 MCHC (RBC) [Mass/Vol] 34.5 g/dL See Below MG- Surgery[facility] Work Phone: [phone] Comment on above: Reference Range: 32. 0 - 36.0 59 {mL/min/1.73m2} Abnormal >60 MG-Donn mo-W [facility] Work Phone: Comment on above: CALCULATIONS OF ELIZABETH MATED GFR ARE PERFORMED USING THE MDRD STUDY EQUATION FOR THE IDMS-TRACEABLE CREATININE METHODS. CLIN CHEM 2007;53:766-72 49 {mL/min/1.73m2} Abnormal >60 MG-Donn mo-W [facility] Work Phone: [phone] Anion gap (Bld) [Moles/Vol] 14 mmol/L 10 - 25 CF-Suwtgoz-H [facility] Work Phone: [phone] -4.9 mmol/L below low threshold -2.0 - 3.0 FV-Rwcfnph-D [facility] Work Phone: % 94 - 100 NY-Jcikhob-G [facility] Work Phone: [phone] Anion gap (Bld) [Moles/Vol] 10 mmol/L 10 - 25 JU-Fjfdjwb-Z [facility] Work Phone: -1.8 mmol/L -2.0 - 3.0 SO-Oqxenbm-N [facility] Work Phone: % 94 - 100 YD-Zdsekjg-G [facility] Work Phone: [phone] Anion gap (Bld) [Moles/Vol] 9 mmol/L below low threshold 10 - 25 AL-Jmaxasu-Q [facility] Work Phone: -1.5 mmol/L -2.0 - 3.0 FD-Pcfzikd-W [facility] Work Phone: 100 % 94 - 100 XC-Pslitzx-Z [facility] Work Phone: Anion gap (Bld) [Moles/Vol] 11 mmol/L 10 - 25 XQ-Xewrdhy-Q [facility] Work Phone: -3.9 mmol/L below low threshold -2.0 - 3.0 HU-Hfetjyz-F [facility] Work Phone: [phone] 100 % 94 - 100 VO-Qbpammh-J [facility] Work Phone: Anion gap (Bld) [Moles/Vol] 10 mmol/L 10 - 25 VT-Pkqufsb-I [facility] Work Phone: 100 % 94 - 100 UV-Opohdfi-I [facility] Work Phone: -4.1 mmol/L below low threshold -2.0 - 3.0 RY-Smwontl-W [facility] Work Phone: Anion gap (Bld) [Moles/Vol] 13 mmol/L 10 - 25 HU-Qrxdevn-W [facility] Work Phone: -3.0 mmol/L below low threshold -2.0 - 3.0 XT-Zocqacm-R [facility] Work Phone: 100 % 94 - 100 YT-Vpgdxor-H [facility] Work Phone: Coronavirus 2019 RNA by PCR, Screening Asymptomticon 02-13-2020 Coronavirus 2019 RNA by PCR, Screening Asymptomtic NOT DETECTED See Below MT-Ahivowa-O [facility] Work Phone: Comment on above: [...] this test method. Fact sheet for providers: https://www.fda.gov/media/034535/downloadFact sheet for patients: https://www.fda.gov/media/936577/downloadThis test has received FDA Emergency Use Authorization [EUA] and has been verified by [facility] ([facility]). This test is only authorized for the duration of time that circumstances exist to justify the authorization of the emergency use of in vitro diagnostic tests for the detection of SARS-CoV-2 virus and/or diagnosis of COVID-19 infection under section 564(b)(1) of the Act, 21 U.S.C. 360bbb-3(b)(1), unless the authorization is terminated or revoked sooner. [facility] is certified under CLIA-88 as qualified to perform high complexity testing. Testing is performed in the [facility] laboratories located at [address] [place] [address]. Cancer Antigen, GI Ca 19-9on 02-11-2020 Cancer Ag 19-9 Qn 35.46 U/mL Abnormal <35.00 MG-Surg skylar-W [facility] Work Phone: Comment on above: CA 19-9 testing is p erformed by chemiluminescent immunoassay using the Yamsafer. Values obtained with different analytic methods cannot [...] ASSAY. Blood group antibody screen Ql Negative HQ-Sraghbm-H [facility] Work Phone: [phone] Hematocrit (Bld) [Volume fraction] 37.1 % below low threshold See Below Z[facility] Work [facility]: [phone] Comment on above: Reference Range: 41. 0 - 52.0 Hemoglobin (Bld) [Mass/Vol] 13.2 g/dL below low threshold See Below XJ-Xgozpre-R [facility] [facility] Work Phone: Comment on above: Reference Range: 13. 5 - 17.5 INR Coag (PPP) [Relative time] 1.0 {INR} 0.9 - 1.1 IA-Brlbrwy-T [facility] Work Phone: [phone] MCV (RBC) [Entitic vol] 86 fL 80 - 100 M G-Surgery-W [facility] Work Phone: [phone] Platelets (Bld) [#/Vol] 185 {x10E9/L} 150 - 450 SJ-Qbpquqw-H [facility] Work Phone: [phone] PT Coag (PPP) [Time] 11.7 {sec} See Below MG-S urgery-W [facility] Work Phone: Comment on above: Reference Range: 10. 1 - 13.3 RBC (Bld) [#/Vol] 4.31 {x10E12/L} below low threshold See Below UG[facility]dvpz[facility] Work Phone: [phone] Comment on above: Reference Range: 4.5 0 - 5.90 Rh immune globulin screen (Bld) [Interp] Positive [facility]: [phone] WBC (Bld) [#/Vol] 0.0 {/100_WBC} 0.0-0.0 MG[facility] Work Phone: [phone] WBC (Bld) [#/Vol] 8.7 {x10E9/L} 4.4 - 11.3 MG-S urgery[facility] Work Phone: Hemoglobin A1Con 02-11-2020 HbA1c (Bld) [Mass fraction] 318 {MG/DL} RW-Bzpdukb-T [facility] Work Phone: HbA1c (Bld) [Mass fraction] 12.7 % YE-Wdmmghd-V [facility] Work Phone: Comment on above: Diagnosis of Diabete s-Adults Non-Diabetic: < or = 5.6% Increased risk for developing diabetes: 5.7-6.4% Diagnostic of diabetes: > or = 6.5%. Monitoring of Diabetes Age (y) Therapeutic Goal (%) Adults: >18 <7.0 Pediatrics: 13-18 <7.5 7-12 <8.0 0- 6 7.5-8.5 [employer]. Diabetes Care 33(S1), Mar 2009. Metabolic Panelon 02-11-2020 ALP [Catalytic activity/Vol] 77 U/L 33 - 136 QD-Wiitvpp-Q [facility] Work Phone: Anion gap [Moles/Vol] 16 mmol/L 10 - 20 MG- Surgery-[facility] Work Phone: Bilirubin [Mass/Vol] 0.3 mg/dL 0.0 - 1.2 MG-S urgery-[facility] Work Phone: Calcium [Mass/Vol] 10.3 mg/dL 8.6 - 10.6 MG-Donn mo-W [facility] Work Phone: Chloride [Moles/Vol] 99 mmol/L 98 - 107 MG-S urgery-[facility] Work Phone: CO2 [Moles/Vol] 26 mmol/L 21 - 32 MG-Surger y-W [facility] Work Phone: Creatinine [Mass/Vol] 0.98 mg/dL See Below MG- Surgery-W [facility] Work Phone: Comment on above: Reference Range: 0.5 0 - 1.30 Glucose [Mass/Vol] 326 mg/dL above high threshold 74 - 99 NE-Mmyzqpx-I [facility] Work Phone: Potassium [Moles/Vol] 4.3 mmol/L 3.5 - 5.3 MG- Surgery-W [facility] Work Phone: Protein [Mass/Vol] 7.0 g/dL 6.4 - 8.2 MG-Donn mo-W [facility] Work Phone: [phone] Sodium [Moles/Vol] 137 mmol/L 136 - 145 MG-Donn mo-W [facility] Work Phone: Urea nitrogen [Mass/Vol] 31 mg/dL above high threshold 6 - 23 RL-Awmuxib-V [facility] Work Phone: Otheron 02-11-2020 Albumin BCP dye [Mass/Vol] 4.1 g/dL 3.4 - 5.0 UY-Kedestl-D [facility] Work Phone: ALT With P-5'-P [Catalytic activity/Vol] 15 U/L 10 - 52 ZS-Ajcpnsc-H [place] [facility] Work Phone: Comment on above: Patients treated wit h Sulfasalazine may generate falsely decreased results for ALT. Amphetamines Screen Ql (U) Negative NEGATIVE ZG-Oynltlr-B [facility] Work Phone: Comment on above: CUTOFF LEVEL: 500 NG /ML Cross-reactivity has been reported with high concentrations of the following drugs: buproprion, chloroquine, chlorpromazine, ephedrine, mephentermine, fenfluramine, phentermine, phenylpropanolamine, pseudoephedrine, and propranolol. AST With P-5'-P [Catalytic activity/Vol] 15 U/L 9 - 39 VC-Ynaosnu-Z [facility] Work Phone: [phone] Benzoylecgonine Screen Ql (U) Negative NEGATIVE DK-Wepmxsy-Q [facility] Work Phone: Comment on above: CUTOFF LEVEL: 150 NG /ML Carboxy tetrahydrocannabinol (U) [Mass/Vol] >500 DF-Dcqlnfm-W [facility] Work Phone: Comment on above: INTERPRETIVE INFORMA TION: THC Metabolite, Urine, QuantitativeMethodology: Quantitative Liquid Chromatography-Tandem Mass SpectrometryPositive cutoff: 15 ng/mLFor medical purposes only; not valid for forensic use.The drug analyte detected in this assay, 9-carboxy THC, is a metabolite of shgkr-6-lidwafewbqrieeslkemo (THC). Detection of 9-carboxy THC suggests use [...] week apart.Test developed and characteristics determined by [employer]. See Compliance Statement B: madvertise/CSPerformed By: [employer] [place] [address] [id number] Director: Aniyah Belle MD Erythrocyte distribution width (RBC) [Ratio] 12.7 % See Below LP-Cmeihae-C [facility] Work Phone: Comment on above: Reference Range: 11. 5 - 14.5 MCHC (RBC) [Mass/Vol] 35.6 g/dL See Below MG[facility] Work Phone: Comment on above: Reference Range: 32. 0 - 36.0 Methadone Screen Ql (U) Negative NEGATIVE M G-Surgery-W [facility] Work Phone: Comment on above: CUTOFF LEVEL: 150 NG /ML The metabolite E-llmwy-hglyudahrrtsaa (LAAM) is not detected by this method in concentrations that would be found in the urine of patients on LAAM therapy. Opiates Screen Ql (U) Negative NEGATIVE MG- Surgery-W [facility] Work Phone: Comment on above: CUTOFF LEVEL: 300 NG /ML The opiate screen does not detect fentanyl, meperidine, or tramadol. Oxycodone is not consistently detected (refer to Oxycodone Screen, Urine result). Oxycodone+Oxymorphone Screen Ql (U) Negative NEGATIVE BW-Dcmumnz-D [employer] [employer] Work Phone: Comment on above: CUTOFF LEVEL: 100 NG /ML This test will accurately detect both oxycodone and oxymorphone. SEE BELOW IN-Okjvyua-N [employer] [facility] Work Phone: Comment on above: [...] directed to the laboratory medical directors. Canceled SK-Qjzctqq-R [employer] Work Phone: Comment on above: Drug screen results are presumptive and should not be used to assess compliance with prescribed medication. Contact the performing [facility] laboratory to add-on definitive confirmatory testing [...] CANCELLED, 02/11/2020 15:05 RBS update.. >60 >60 UF-Skaczbo-T [employer] [facility] Work Phone: Comment on above: CALCULATIONS OF ELIZABETH MATED GFR ARE PERFORMED USING THE MDRD STUDY EQUATION FOR THE IDMS-TRACEABLE CREATININE METHODS. CLIN CHEM 2007;53:766-72 Urinalysison 02-11-2020 Barbiturates Screen Ql (U) Negative NEGATIVE PJ-Otwjjlr-T [facility] Work Phone: Comment on above: CUTOFF LEVEL: 200 NG /ML Benzodiazepines Ql (U) Negative NEGATIVE MG -Surgery-[facility] Work Phone: Comment on above: CUTOFF LEVEL: 200 NG /ML Cannabinoids Screen Ql (U) Positive Abnormal NEGATIVE VJ-Hlusgbg-E [facility] Work Phone: Comment on above: CUTOFF LEVEL: 50 NG/ ML Phencyclidine Ql (U) Negative NEGATIVE MG-S urgery-[facility] Work Phone: Comment on above: CUTOFF LEVEL: 25 NG/ ML Cross-reactivity has been reported with dextromethorphan. CT ABDOMEN AND PELVIS W IV C ONTRASTon 01-22-2020 CT ABDOMEN AND PELVIS W IV [...] dated 12/07/2019 and MRCP 11/09/2019. ACCESSION NUMBER(S): [id number] ORDERING CLINICIAN: NASIM GUILLAUME TECHNIQUE: CT of [...] as stated. This study was interpreted at [facility], [place], [place]. Electronically signed by: RAGHAV GUERRERO MD Normal [facility] CT Abdomen and Pelvis with I V Contraston 01-22-2020 CT Abdomen and Pelvis W contrast IV Interpreted by: RAGHAV GUERRERO01/24/20 16:45MRN: [id number] Name: ALTAGRACIA CONWAY STUDY:CT ABDOMEN AND PELVIS W IV CONTRAST; 01/22/2020 2:50 pm INDICATION:evaluate pancreatic lesion,biliary ductal dilatation, PD dilation,h/o DM, f/hx of pancreas cancer Obstruction of bile duct Diarrhea,unspecified Other specified diseases of pancreas . Patient is t01-ttdz-agn man who presented with pancreatic and biliary [...] abnormality of the SMV which remains patent ([id number], image 45). The SMA and celiac artery [...] findingsas stated. This study was interpreted at [facility], [place], [place].Electronically signed by: RAGHAV GUERRERO 01/24/20 16:45 Normal SM-Kxmokvt-D [place] [facility] Work Phone: Otheron 01-22-2020 >60 See Below PV-Muujnyg-G [facility] Work Phone: Comment on above: Reference Range: >60 mL/min/1.73m2 POCT eGFR is intended for Radiology screening purposes only. If patient is , multiply result by 1.21. POCT CREATININE AND GFRon Creatinine [Mass/Vol] 1.1 mg/dL 0.6 - 1.3 [facility] Comment on above: Performed By: #### P CRGF #### [facility] [address] [place], [place] [id number] GFR/1.73 sq M predicted among non-blacks MDRD (S/P/Bld) [Vol rate/Area] mL/min/{1.73_m2} Normal >60 mL/min/1.73m 2 [facility] Comment on above: Result Comment: POCT eGFR is intended for Radiology screening purposes only. If patient is , multiply result by 1.21. Performed By: #### P CRGF #### [facility] [address] [place], [place] [id number] GLUCOSE-POCTon 01-11-2020 Glucose [Mass/Vol] 138 mg/dL above high threshold 74 - 99 [facility] Work Phone: Comment on above: Notify MD/RN Result Comment: Ty zamudio MD/RN Performed By: #### G FAMILIA #### [facility] [address] [place] [address] Otheron 01-11-2020 [email or web address] ?[id number] [id number]} [facility] Work Phone: Patient Name: Altagracia ConwayProcedsaúl Date: 01/11/2020 3:13 PMMRN: [id number] Number: [id number] of : 6Admit Type: OutpatientSite: [facility] 1Ethnicity: Not or LatinoRace: Kristian [...] TechReferring: Catherine Robles Care Team: Nasim Guillaume [facility] WESTedicines: General AnesthesiaComplications : No immediate complications.Procedure : [...] A biliary stent was visible on the shop router film. An echoendoscope was used for examination. [...] passes were made with the 22 gauge IDRI ([employer] [employer] [facility])Core biopsy needle using a transduodenal approach. A [...] await path results.Procedure Code(s): --- Professional --- 49360, Endoscopic retrograde cholangiopancreatograph y (ERCP); with removal and exchange of stent(s), biliary or pancreatic duct, including pre- and post-dilation and guide wire passage, when performed, including sphincterotomy, when performed, each stent exchanged 47592, Endoscopic retrograde cholangiopancreatograph y (ERCP); with removal of calculi/debris from biliary/pancreatic duct(s) 39758, Esophagogastroduodenosc opy, flexible, transoral; with transendoscopic ultrasound-guided intramural or transmural fine needle aspiration/biopsy(s), (includes endoscopic ultrasound examination limited to the esophagus, stomach or duodenum, and adjacent structures) 23244, Endoscopic catheterization of the biliary ductal system, radiological supervision and interpretationDiagnosis Code(s): --- Professional --- K83.1, Obstruction of bile duct R93.2, Abnormal findings on diagnostic imaging of liver and biliary tract T85.590A, Other mechanical complication of bile duct prosthesis, initial encounter K86.89, Other specified diseases of pancreasCPT copyright 2019 [employer]. All rights reserved.The codes documented in this report are preliminary and upon analytical engineer review may be revised to meet current compliance requirements.Sandro Medina MD01/11/2020 4:58:46 PMThis report has been signed electronically.Number of Addenda: 0Note Initiated On: 01/11/2020 3:13 PM [employer] Work Phone: Fluoroscopy duration Please click on the link to view the study images Normal [employer] Work Phone: Coronavirus 2019 RNA by PCR, Screening Asymptomticon 01-09-2020 EMPLOYED IN HEALTHCARE Unknown [employer] Work Phone: FIRST COVID NASAL SWAB TEST? No [facility] Work Phone: ICU? Unknown [facility] Work Phone: Patient was hospitalized because of this condition Unknown [facility] Work Phone: RESIDENT IN CONGREGATE CARE SETTING? Unknown [facility] Work Phone: SYMPTOMATIC DEFINED BY CDC No IGOR-Univ Rachaelo radha-N [facility] Work Phone: Coronavirus 2019 RNA by PCR, Screening Asymptomtic Unknown [facility] Work Phone: Coronavirus 2019 RNA by PCR, Screening Asymptomtic Yes IGOR-Univ Rachaelo [facility] Work Phone: Coronavirus 2019 RNA by PCR, Screening Asymptomtic [id number] [facility] Work Phone: Coronavirus 2019 RNA by PCR, Screening Asymptomtic NOT DETECTED See Below IGORTrelloJorge [facility] Work Phone: Comment on [...] make patient management decisions.Fact sheet for providers: https://www.fda.gov/media/000425/downloadFact sheet for patients: https://www.fda.gov/media/894980/downloadThis test has received FDA Emergency Use Authorization (EUA) and has been verified by [facility] ([facility]). This test is only authorized for the duration of time that circumstances exist to justify the authorization of the emergency use of in vitro diagnostic tests for the detection of SARS-CoV-2 virus and/or diagnosis of COVID-19 infection under section 564(b)(1) of the Act, 21 U.S.C. 360bbb-3(b)(1), unless the authorization is terminated or revoked sooner. [facility] is certified under CLIA-88 as qualified to perform high complexity testing. Testing is performed in the [facility] laboratories located at [id number] [place] [address]. GLUCOSE-POCTon 12-07-2019 Glucose [Mass/Vol] 223 mg/dL High 74 - 99 [facility] Comment on above: Performed By: #### G FAMILIA #### [facility] [address] [place] [address] Otheron 12-05-2019 NOT DETECTED See Below -[facility] logy-Mariama judy [facility] Work Phone: Comment on above: SOURCE: [...] make patient management decisions.Fact sheet for providers: https://www.fda.gov/media/855131/downloadFact sheet for patients: https://www.fda.gov/media/101024/downloadThis test has received FDA Emergency Use Authorization (EUA) and has been verified by [facility] ([facility]). This test is only authorized for the duration of time that circumstances exist to justify the authorization of the emergency use of in vitro diagnostic tests for the detection of SARS-CoV-2 virus and/or diagnosis of COVID-19 infection under section 564(b)(1) of the Act, 21 U.S.C. 360bbb-3(b)(1), unless the authorization is terminated or revoked sooner. [facility] is certified under CLIA-88 as qualified to perform high complexity testing. Testing is performed in the [facility] laboratories located at [id number] [place] [address]. MRCP Abdomen w/wo Contraston 11-09-2019 MRCP Abdomen WO and W contrast IV Please click on the link to view the study images Normal [facility] Work Phone: Otheron 11-09-2019 Please click on the link to view the study images Normal [facility] Work Phone: POINT OF CARE GLUCOSEon 08-10 Glucose mass conc 131 mg/dL Critically high 74-106 Th [facility] Comment on above: Performed By: #### P OCGLUC ####[facility] Diteluuihu1138 [address] [place] XR KUB 1 VIEWon 08-29-2017 XR KUB 1 VIEW 1400 [place] [address] Patient: ALTAGRACIA CONWAY Exam Date: 08/29/2017DOB: 1955 Gender:M : DR CLARENCE SYED . Admission #: [id number] : DR. TAYO DOCKERY Order #: [id number] HERE TO VIEW EXAM RADIOLOGY REPORT PROCEDURE: [...] Oliveros M.D. on 08/29/2017 at 10:25 Normal [facility] CALCULI, URINARYon 8 Ammonium acid urate Normal [facility] Comment on above: Performed By: #### C ALCULI ####[facility] Xkzodsbozi6399 [place] [id number] Ca hydrogen phos. Normal [facility] Comment on above: Performed By: #### C ALCULI ####[facility] Wshbxbvdwz4131 [address] [place] Ca oxalate dihydrate Normal [facility] Comment on above: Performed By: #### C ALCULI ####[facility] Hnjoivasbn0954 [address] [place] Ca oxalate monohydr. 15 % Normal [facility] Comment on above: Performed By: #### C ALCULI ####[facility] Evlhcgyoma9859 [address] [place] Calcium 02 % Normal [facility] Comment on above: Performed By: #### C ALCULI ####[facility] Nwfegzdjfw2544 [address] [place] Calcium Normal [facility] Comment on above: Performed By: #### C ALCULI ####[facility] Cawlycehra3353 [address] Cellular Material Normal [facility] Comment on above: Performed By: #### C ALCULI ####[facility] Gtsrcmdojc5288 [address] [place] Cholesterol Normal [facility] Comment on above: Performed By: #### C ALCULI ####[facility] Spemgejrcc9601 [address] Comment Normal [facility] Comment on above: Performed By: #### C ALCULI ####[facility] Gtcirlinue4576 [address] Comment Note: Normal [facility] Comment on above: Result Comment: Plea se do not submit specimens on Q-Tips, in tape, on filters, or inliquids such as blood, urine or formalin. This may cause unnecessarybiohazards, erroneous results and/or delay in the processing of thespecimen. Performed By: #### C ALCULI ####[facility] Deqcombr[address] [place] [address] Comment: Comment Normal [facility] Comment on above: Result Comment: Arabella boykin questions regarding Calculi Analysis contact [facility] at:[phone]. Performed By: #### C ALCULI ####[facility] Fikjgbunco3608 [address] Composition Comment Normal [facility] Comment on above: Result Comment: Perc entage (Represents the % composition) Performed By: #### C ALCULI ####[facility] Pbbxpvfloy8345 [address] Cystine Normal [facility] Comment on above: Performed By: #### C ALCULI ####[facility] Puysmvbvwb4454 [address] Disclaimer: Comment Normal [facility] Comment on above: Result Comment: This test was developed and its performance characteristicsdetermined by [facility]. It has not been cleared or approvedby the Food and Drug Administration. Performed By: #### C ALCULI ####[facility] Rsbqxxdsvz7675 [address] Dried Blood [facility] Comment on above: Performed By: #### C ALCULI ####[facility] Drnvwbgwde9100 [address] [place] Magnesium [facility] Comment on above: Performed By: #### C ALCULI ####[facility] Eebymvorok0525 [address] Newberyite [facility] Comment on above: Performed By: #### C ALCULI ####[facility] Tijcjjowbw0346 [address] Nidus No Nidus visualized Normal [facility] Comment on above: Performed By: #### C ALCULI ####[facility] Bhvggnbqqr9865 [address] Please note: Comment Normal [facility] Comment on above: Result Comment: Calc donato report without photograph will follow via computer, mail,or mixologist delivery. Performed By: #### C ALCULI ####[facility] Jfimqpfmxk3297 [address] [place] Shell Normal [facility] Comment on above: Performed By: #### C ALCULI ####[facility] Jwxhhujnhd7633 [address] [place] Size Comment Normal [facility] Comment on above: Result Comment: Spec imen received as fragments. Performed By: #### C ALCULI ####[facility] Wpronqowzh3764 [address] [place] Sodium Normal [facility] Comment on above: Performed By: #### C ALCULI ####[facility] Fsifgzoacu3318 [address] [place] Surface Crystals Normal [facility] Comment on above: Performed By: #### C ALCULI ####[facility] Ogazphfgpz1170 [address] [place] Triamterene Normal [facility] Comment on above: Performed By: #### C ALCULI ####[facility] Hxkctohamo3986 [address] [place] Urate 83 % Normal [facility] Comment on above: Performed By: #### C ALCULI ####[facility] Cbjbyzxygs7408 [address] [place] Uric acid dihydrate Normal [facility] Comment on above: Performed By: #### C ALCULI ####[facility] Lislywxrov6269 [address] [place] Urine, color [place] Normal [facility] Comment on above: Performed By: #### C ALCULI ####[facility] Tterqosgyz9341 [address] [place] Weight 2722.8 mg Normal [facility] Comment on above: Performed By: #### C ALCULI ####[facility] Ehdmgdzfrm1859 [address] [place] POINT OF CARE GLUCOSEon 06-0 Glucose mass conc 136 mg/dL Critically high 74-106 [facility] Comment on above: Performed By: #### P OCGLUC ####[facility] Movtgyzlju8104 [place], [place] [address] CBC AUTO DIFFon 08-07-2017 Basophils Auto #/vol (Bld) 0.1 103/ul Normal 0.0-0.1 [facility] Comment on above: Performed By: #### C BC ####[facility] Hwvvuziwnw[address] [place], [place] [address] Basophils/100 WBC Auto (Bld) 0.7 % Normal 0.2-2.0 [facility] Comment on above: Performed By: #### C BC ####[facility] Hlzwukxlwe[address] [place], [place] [address] Eosinophils 0.2 103/ul Normal 0.0-0.7 [facility] Comment on above: Performed By: #### C BC ####[facility] [address] [place] [address] [place] Eosinophils/100 leukocytes 3.1 % Normal 0.9-7.0 [facility] Comment on above: Performed By: #### C BC ####[facility] Fzfjpdavhq[address] [place], [place] [address] Erythrocyte distribution width Auto Ratio (RBC) 12.7 % Normal 11.0-15.0 [facility] Comment on above: Performed By: #### C BC ####[facility] Djrfklbfgj[address] [place], [place] [address] Erythrocytes (RBC) 5.07 106/ul Normal 4.70-6.10 [facility] Comment on above: Performed By: #### C BC ####[facility] Rhgtwbssrx187[address] [place], [place] [address] Hematocrit (HCT) 44.7 % Normal 42.0-54.0 [facility] Comment on above: Performed By: #### C BC ####[facility] Rzagocxiut[address] [place], [place] [address] Hemoglobin mass conc (Bld) 15.5 g/dL Normal 14.0-18.0 [facility] Comment on above: Performed By: #### C BC ####[facility] Nazbsldmrx2134 [address] [place] IG # 0.01 10e3/ul Normal 0.00-0.03 [facility] Comment on above: Performed By: #### C BC ####[facility] Rrmaloywyt1726 [address] [place] IG % 0.1 % Normal 0.0-0.5 [facility] Comment on above: Performed By: #### C BC ####[facility] Cspokvfbrf1332 [address] [place] Lymphocytes 2.4 103/ul Normal 1.2-3.8 [facility] Comment on above: Performed By: #### C BC ####[facility] [address] [place] [address] [place] Lymphocytes/100 leukocytes 31.8 % Normal 20.5-60.0 [facility] Comment on above: Performed By: #### C BC ####[facility] Y[address] [place] [address] [place] MANUAL DIFF REQ NO Normal [facility] Comment on above: Performed By: #### C BC ####[facility] Sddvjdqro[address] [place] [address] [place] MCH 30.6 pg Normal 25.9-34.0 [facility] Comment on above: Performed By: #### C BC ####[facility] [address] [place] [address] [place] MCHC mass conc (RBC) 34.7 g/dL Normal 29.9-35.2 [facility] Comment on above: Performed By: #### C BC ####[facility] [address] [place] [address] [place] MCV 88.2 fL Normal 80.0-94.0 [facility] Comment on above: Performed By: #### C BC ####[facility] [address]vpcwn[address] [place] [address] [place] Monocytes 0.5 103/ul Normal 0.3-0.8 [facility] Comment on above: Performed By: #### C BC ####[facility] Ghqymiycnr5951 [place], [place] [address]Vgzyij [place] Monocytes/100 leukocytes 6.6 % Normal 1.7-12.0 [facility] Comment on above: Performed By: #### C BC ####[facility] Kwrmuwqetq2262 [place], [place] [address]Bexnuv [place] Neutrophils 4.3 103/ul Normal 1.4-6.5 [facility] Comment on above: Performed By: #### C BC ####[facility] Agshqfbjgu0616 [place], [place] [address]Xmgsxx [place] Neutrophils/100 WBC Auto (Bld) 57.7 % Normal 43.0-75.0 [facility] Comment on above: Performed By: #### C BC ####[facility] Pbtyuxoorz[address] [place], [place] [address] Platelet mean volume (PMV) 10.3 fL Normal 9.5-13.5 [facility] Comment on above: Performed By: #### C BC ####[facility] Nysflsrhfg[address] [place], [place] [address] Platelets 158 103/ul Normal 150-450 [facility] Comment on above: Performed By: #### C BC ####[facility] Ipjrfzudiz[address] [place], [place] [address] WBC (Leukocytes) 7.5 103/ul Normal 4.0-11.0 [facility] Comment on above: Performed By: #### C BC ####[facility] Nuzshiehbj3758 [place] [id number] PROF CHEM 8 (BAS METB)on Anion gap 8.7 mmol/L Normal [facility] Comment on above: Performed By: #### B MP ####[facility] Khjpleceja[address] [place], [place] [address] BUN/Creatinine Ratio 27.1 mg/mg Normal [facility] Comment on above: Performed By: #### B MP ####[facility] Rixmvbzeme8806 [place] [id number] Calcium 10.6 mg/dL Critically high 8.4-10.2 [facility] Comment on above: Performed By: #### B MP ####[facility] Mfouczduyg6340 [place] [id number] Chloride 101 mmol/L Normal 98-107 [facility] Comment on above: Performed By: #### B MP ####[facility] Rtzljcgbox9497 [place] [id number] CO2 28.0 mmol/L Normal 22.0-30.0 [facility] Comment on above: Performed By: #### B MP ####[facility] Sznddhcvec5460 [place] [address] Creatinine 0.80 mg/dL Normal 0.66-1.25 [facility] Comment on above: Performed By: #### B MP ####[facility] Odythyyzmq[address] [place], [place] [address] eGFR (non-black) mL/min/{1.73_m2} Normal >=60 Th [facility] Comment on above: Performed By: #### B MP ####[facility] Fdznnlicaf3169 [place] [id number] Glucose mass conc 133 mg/dL Critically high 74-106 Th [facility] Comment on above: Performed By: #### B MP ####[facility] Norybfvzsj2136 [place] [id number] Potassium molar conc 4.2 mmol/L Normal 3.4-5.0 [facility] Comment on above: Performed By: #### B MP ####[facility] Tejtffyvyt[address] [place], [place] [address] Sodium 134 mmol/L Critically low 137-145 [facility] Comment on above: Performed By: #### B MP ####[facility] Sdqdwxueeo[address] [place], [place] [address] Urea nitrogen 22.0 mg/dL Critically high 9.0-20.[address] [facility] Comment on above: Performed By: #### B MP ####[facility] Qahyusxyfc5063 [place], [place] [address]ZvaonyMaggi Price PROTIMEon 08-07-2017 INR Coag RelTime (Bld) SEE BELOW Normal [facility] Comment on above: Result Comment: SCOTT RED INR: 2.0 - 3.0 CONDITIONS NOT LISTED BELOW 2.5 - 3.5 FOR PROSTHETIC HEART VALVE REPLACEMENT 2.5 - 3.5 RECURRENT THROMBOSIS Performed By: #### P T, PTT ####[facility] Khcdkkskct5698 [place], [place] [address]NqezdyMaggi Price INR Coag RelTime (PPP) 1.01 {INR} Normal [facility] Comment on above: Performed By: #### P T, PTT ####[facility] [address] [place] [address]LiiuirMaggi Price Prothrombin time (PT) Coag time (PPP) 10.4 s Normal 9.0-11.6 [facility] Comment on above: Performed By: #### P T, PTT ####[facility] Yhlzcnjskf[address] [place], [place] [address]Maggi Price PT NORMAL PLEASE NOTE: NORMAL RANGE CHANGE 11-26-2013 DUE TO REAGENT LOT CHANGE Normal [facility] Comment on above: Performed By: #### P T, PTT ####[facility] Ncemlubfnr8676 [place], [place] [address]PhfirfMaggi Price PTTon 08-07-2017 aPTT PLEASE NOTE: NORMAL RANGE CHANGE 02-02-2015 DUE TO REAGENT LOT CHANGE Normal [facility] Comment on above: Performed By: #### P T, PTT ####[facility] Tqgzghyjdz5577 [place], [place] [address]KkoaafMaggi Price aPTT 30.1 s Normal 22.3-36.2 [facility] Comment on above: Performed By: #### P T, PTT ####[facility] Pmucyirbcr8839 [place], [place] [address]BixiqxMaggi Price GLUCOSE, FINGERSTICK-IN OFFI CEon 07-15-2017 Glucose mass conc 154 mg/dL High 80-116 [facility] Comment on above: Result Comment: Ty lester RN, APN, MD Performed By: #### C BCD, ESR, HB A1C ####[facility] GDYEWDEXHS5051 [place], [place], Glucose mass conc 121 mg/dL High 80-116 [facility] Comment on above: Performed By: #### C BCD, ESR, HB A1C ####[facility] ZBHIHSOSSM5225 [place], GLUCOSE, FINGERSTICK-IN OFF07-14-2017 Glucose mass conc 157 mg/dL High 80-116 [facility] Comment on above: Result Comment: Ty lester RN, APN, MD Performed By: #### C BCD, ESR, HB A1C ####[facility] XLNBEBQUGO2038 [place], Glucose mass conc 158 mg/dL High 80-116 [facility] Comment on above: Result Comment: Ty lester RN, APN, MD Performed By: #### C BCD, ESR, HB A1C ####[facility] [id number] [place], Glucose mass conc 150 mg/dL High 80-116 [facility] Comment on above: Performed By: #### C BCD, ESR, HB A1C ####[facility] RZEKRQJVMO5885 [place], Glucose mass conc 128 mg/dL High 80-116 [facility] Comment on above: Performed By: #### C BCD, ESR, HB A1C ####[facility] VYIZIACPRN9511 [place], GLUCOSE, FINGERSTICK-IN OFF07-13-2017 Glucose mass conc 172 mg/dL High 80-116 [facility] Comment on above: Result Comment: Ty lester RN, APN, MD Performed By: #### C BCD, ESR, HB A1C ####[facility] FJZZXLJCZH7117 [place], Glucose mass conc 154 mg/dL High 80-116 [facility] Comment on above: Result Comment: Ty lester RN, APN, MD Performed By: #### C SHEFALI, ESR, HB A1C ####[facility] FHMKBTBDGG1887 [place], Glucose mass conc 195 mg/dL High 80-116 [facility] Comment on above: Result Comment: Ty lester RN, APN, MD Performed By: #### C SHEFALI, ESR, HB A1C ####[facility] SFYHGGXDMS3902 [place], Glucose mass conc 118 mg/dL High 80-116 [facility] Comment on above: Result Comment: Ty lester RN, APN, MD Performed By: #### C SHEFALI, ESR, HB A1C ####[facility] UPBCOBCLJI8890 [place], Glucose mass conc 119 mg/dL High 80-116 [facility] Comment on above: Performed By: #### C SHEFALI, ESR, HB A1C ####[facility] CISWOALTEH3858 [place], GLUCOSE, FINGERSTICK-IN OFFI CEon 07-12-2017 Glucose mass conc 134 mg/dL High 80-116 [facility] Comment on above: Result Comment: Foll ow Protocol Performed By: #### C SHEFALI, ESR, HB A1C ####[facility] KVXXDEEAGB9207 [place], Glucose mass conc 134 mg/dL High 80-116 [facility] Comment on above: Result Comment: Foll ow Protocol Performed By: #### C SHEFALI, ESR, HB A1C ####[facility] LFBWVVKIMG8097 [place], Glucose mass conc 211 mg/dL High 80-116 [facility] Comment on above: Result Comment: Ty lester RN, APN, MD Performed By: #### C BCBobby, ESR, HB A1C ####[facility] FHQIRATVDM6203 [place], PROTHROMBIN TIME AND INRon 0 07-12-2017 INR Coag RelTime (PPP) 1.01 {INR} Normal 0.90-1.10 Th [facility] Comment on above: Performed By: #### C BCBobby, ESR, HB A1C ####S PATHOLOG[facility] QVDNBIRQVT2442 [place], Prothrombin time (PT) Coag time (PPP) 11.4 s Normal 10.0-12.6 [facility] Comment on above: Performed By: #### C BCD, ESR, HB A1C ####S PATHOLOG[facility] OVYCUDBZHV8179 [place], TYPE AND SCREENon 07-12-2017 ABO RH TYPE Positive Normal [facility] Comment on above: Performed By: #### C BCD, ESR, HB A1C ####S PATHOLOG[facility] TOVBOPHGJJ0250 [place], ABSC INT Negative Normal [facility] Comment on above: Performed By: #### C BCD, ESR, HB A1C ####S PATHOLOGY XAXONCRLGB1217 [place], GLUCOSE, FINGERSTICK-IN OFFI CEon 07-11-2017 Glucose mass conc 149 mg/dL High 80-116 [facility] Comment on above: Performed By: #### C BCD, ESR, HB A1C ####S PATHOLOGY GDAVVYGJWX9922 [place], Glucose mass conc 116 mg/dL Normal 80-116 [facility] Comment on above: Performed By: #### C BCD, ESR, HB A1C ####S PATHOLOGY EOIVVPRMGE4266 [place], Glucose mass conc 144 mg/dL High 80-116 [facility] Comment on above: Performed By: #### C BCD, ESR, HB A1C ####S PATHOLOGY JNHXVMVMUH7842 [place], Glucose mass conc 119 mg/dL High 80-116 [facility] Comment on above: Performed By: #### C BCD, ESR, HB A1C ####[facility] SZBSLPBHLR6625 [place], BASIC METABOLIC PANELon Anion gap 11 mmol/L Normal 5-13 [facility] Comment on above: Performed By: #### C H8, HEPATIC ####[facility] ZHAWKWJEEM8816 [place], Calcium 9.4 mg/dL Normal 8.4-10.4 [facility] Comment on above: Performed By: #### C H8, HEPATIC ####[facility] QMSKFTUMNK8005 [place], Chloride 103 mmol/L Normal 97-111 [facility] Comment on above: Performed By: #### C H8, HEPATIC ####[facility] UBYSKGMJBH8377 [place], CO2 27 mmol/L Normal 21-30 [facility] Comment on above: Performed By: #### C H8, HEPATIC ####[facility] MUIUTZUGHJ7586 [place], Creatinine 0.93 mg/dL Normal 0.80-1.30 [facility] Comment on above: Performed By: #### C H8, HEPATIC ####S PATHOLOGY HJELXXYHVP7460 [place], eGFR (MDRD) 88 mL/min/1.73sqm Normal >=60 [facility] Comment on above: Performed By: #### C H8, HEPATIC ####[facility] UWHIKBGEHO4153 [place], Glucose mass conc 160 mg/dL High 80-116 [facility] Comment on above: Performed By: #### C H8, HEPATIC ####[facility] HEKFQPNPCT6394 [place], Potassium molar conc 4.1 mmol/L Normal 3.3-5.3 [facility] Comment on above: Performed By: #### C H8, HEPATIC ####[facility] BJFJPKIRIH6793 [place], Sodium 137 mmol/L Normal 135-148 [facility] Comment on above: Performed By: #### C H8, HEPATIC ####[facility] EMXSOXMAGZ7045 [place], Urea nitrogen 19 mg/dL Normal 8-22 [facility] Comment on above: Performed By: #### C H8, HEPATIC ####[facility] [id number] [place], C-REACTIVE PROTEINon 018 C reactive protein (CRP) 1.7 mg/dL High <0.8 [facility] Comment on above: Performed By: #### H IV1/2 AG/AB, CRP ####[facility] [id number] [place], COMPLETE BLOOD COUNT W/DIFFo n 07-10-2017 Basophils Auto #/vol (Bld) 0.04 10*3/uL Normal 0.00-0.20 [facility] Comment on above: Performed By: #### C BCD, ESR, HB A1C ####[facility] [address]YFO[address] [place] [address], Basophils/100 WBC Auto (Bld) 0.5 % Normal <=1.9 [facility] Comment on above: Performed By: #### C BCD, ESR, HB A1C ####[facility] RBCASDIVCK[address] [place] [address], Eosinophils 0.15 10*3/uL Normal 0.00-0.70 [facility] Comment on above: Performed By: #### C BCD, ESR, HB A1C ####[facility] YEDQRUZFRY[address] [place] [address], Eosinophils/100 leukocytes 1.8 % Normal 0.1-4.0 [facility] Comment on above: Performed By: #### C BCD, ESR, HB A1C ####[facility] [id number] [place], Erythrocyte distribution width Auto Ratio (RBC) 13.0 % Normal 11.5-14.5 [facility] Comment on above: Performed By: #### C BCD, ESR, HB A1C ####[facility] [id number] [place], Erythrocytes (RBC) 4.63 10*6/uL Normal 4.50-5.90 [facility] Comment on above: Performed By: #### C BCD, ESR, HB A1C ####[facility] [id number] [place], Hematocrit (HCT) 41.8 % Normal 41.0-53.0 [facility] Comment on above: Performed By: #### C BCD, ESR, HB A1C ####[facility] [id number] [place], Hemoglobin mass conc (Bld) 14.4 g/dL Normal 13.9-16.3 [facility] Comment on above: Performed By: #### C BCD, ESR, HB A1C ####[facility] [id number] [place], Lymphocytes 1.72 10*3/uL Normal 1.00-4.80 [facility] Comment on above: Performed By: #### C BCD, ESR, HB A1C ####[facility] [id number] [place], Lymphocytes/100 leukocytes 20.5 % Low 24.0-44.0 [facility] Comment on above: Performed By: #### C BCD, ESR, HB A1C ####[facility] [id number] [place], MCH 31.1 pg Normal 26.0-34.0 [facility] Comment on above: Performed By: #### C BCD, ESR, HB A1C ####[facility] [id number] [place], MCHC mass conc (RBC) 34.4 g/dL Normal 32.0-35.9 [facility] Comment on above: Performed By: #### C BCD, ESR, HB A1C ####[facility] [id number] [place], MCV 90 fL Normal 80-100 [facility] Comment on above: Performed By: #### C BCD, ESR, HB A1C ####[facility] [id number] [place], Monocytes 0.85 10*3/uL Normal 0.20-1.00 [facility] Comment on above: Performed By: #### C BCD, ESR, HB A1C ####[facility] [id number] [place], Monocytes/100 leukocytes 10.1 % Normal 2.0-11.0 [facility] Comment on above: Performed By: #### C BCD, ESR, HB A1C ####[facility] [id number] [place], Neutrophils 5.63 10*3/uL Normal 1.50-8.00 [facility] Comment on above: Performed By: #### C BCD, ESR, HB A1C ####[facility] [id number] [place], Neutrophils/100 leukocytes 67.1 % Normal 31.0-76.0 [facility] Comment on above: Performed By: #### C BCD, ESR, HB A1C ####[facility] [id number] [place], [place], Platelet mean volume (PMV) 10.6 fL Normal 8.5-11.5 [facility] Comment on above: Performed By: #### C BCD, ESR, HB A1C ####[facility] [id number] [place], Platelets 169 10*3/uL Normal 150-400 [facility] Comment on above: Performed By: #### C BCD, ESR, HB A1C ####[facility] [id number] [place], WBC (Leukocytes) 8.4 10*3/uL Normal 4.5-11.5 [facility] Comment on above: Performed By: #### C BCD, ESR, HB A1C ####[facility] [id number] [place], ERYTHROCYTE SEDIMENTATION RA Brando 07-10-2017 Erythrocyte sedimentation rate 42 mm/h High <=20 [facility] Comment on above: Performed By: #### C BCD, ESR, HB A1C ####[facility] [id number] [place], GLUCOSE, FINGERSTICK-IN OFFI CEon 07-10-2017 Glucose mass conc 147 mg/dL High 80-116 [facility] Comment on above: Performed By: #### C BCD, ESR, HB A1C ####[facility] [id number] [place], Glucose mass conc 148 mg/dL High 80-116 [facility] Comment on above: Result Comment: Ty lester RN, APN, MD Performed By: #### C BCD, ESR, HB A1C ####[facility] [id number] [place], Glucose mass conc 176 mg/dL High 80-116 [facility] Comment on above: Result Comment: Ty lester RN, APN, MD Performed By: #### [id number] ####NURSING GLUCOSE [id number] [place], HEMOGLOBIN A1Con 07-10-2017 Glucose mass conc 128 mg/dL Normal [facility] Comment on above: Order Comment: HbA1c of 5.7-6.4% have increased risk for diabetes and CV(Source :ADA 2014 Standard of Medical Care in Diabetes) Performed By: #### C BCD, ESR, HB A1C ####[facility] [id number] [place], Hemoglobin A1c/Hemoglobin.total mass fraction (Bld) 6.1 % High 4.0-5.6 [facility] Comment on above: Order Comment: HbA1c of 5.7-6.4% have increased risk for diabetes and CV(Source :ADA 2014 Standard of Medical Care in Diabetes) Performed By: #### C BCD, ESR, HB A1C ####[facility] [id number] [place], HEPATIC FUNCTION PANELon Alanine aminotransferase (ALT) 36 U/L Normal 7-40 [facility] Comment on above: Performed By: #### C BCD, ESR, HB A1C ####[facility] [id number] [place], Albumin 3.3 g/dL Low 3.4-5.1 [facility] Comment on above: Performed By: #### C BCD, ESR, HB A1C ####[facility] [id number] [place], ALK 63 IU/L Normal 40-200 [facility] Comment on above: Performed By: #### C BCD, ESR, HB A1C ####[facility] [id number] [place], Aspartate aminotransferase (AST) 31 U/L Normal 7-40 [facility] Comment on above: Performed By: #### C BCD, ESR, HB A1C ####[facility] [id number] [place] [address], Bilirubin (total) 0.20 mg/dL Normal 0.10-0.30 [facility] Comment on above: Performed By: #### C BCD, ESR, HB A1C ####[facility] [id number] [place] [address], Bilirubin Ql (U) 0.5 mg/dL Normal 0.1-1.5 [facility] Comment on above: Performed By: #### C BCD, ESR, HB A1C ####[facility] [id number] [place] [address], Protein 6.1 g/dL Normal 5.7-8.1 [facility] Comment on above: Performed By: #### C BCD, ESR, HB A1C ####[facility] [id number] [place], HEPATITIS C ANTIBODYon 07-10 HCV Reactive Abnormal Nonreactive [facility] Comment on above: Performed By: #### H CV, HEP C QNT ####[facility] [id number] [place] [address], HEPATITIS C QUANT BY PCRon 0 07-10-2017 HEP C QNT [id number] IU/mL Normal Not Detected [facility] Comment on above: Order Comment: This test is performed by a quantitative polymerase chain reaction (PCR) method (Ampliprep/DAVIS TaqMan test, v2.0, [employer] [place], [place]) that is intended to be used as an aid in the diagnosis of HCV infection (genotypes 1 to 6) and also as an aid in the management of HCV infected patients undergoing anti-viral therapy in conjunction with clinical and other laboratory markers of infection. Performed By: #### H CV, HEP C QNT ####[facility] [id number] [place], HIV 1/HIV 2 COMBO AG/ABon HIV 1/2 AG/AB Nonreactive Normal Nonreactive [facility] Comment on above: Result Comment: HIV Information: ?[place] Rev. 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 DENISE have reviewed the study and interpretationwith the resident and agree with the findings. Normal [facility] Vital Signs Date Time Vital Sign Value Performing Clinician Facility 05-22-2024 11:03-0400 Diastolic blood pressure 77 mm[Hg] Mark Alves [facility] 05-22-2024 11:03-0400 Heart rate 90 /min Mark Alves [facility] 05-22-2024 11:03-0400 Mean blood pressure 101 mm[Hg] Mark Joselyn [facility] 05-22-2024 11:03-0400 Systolic blood pressure 149 mm[Hg] Mark Alves [facility] 05-22-2024 10:00-0400 Heart rate 69 /min Mark Alves [facility] 05-22-2024 10:00-0400 Mean blood pressure 99 mm[Hg] Mark Mcadamse [facility] 05-22-2024 10:00-0400 SaO2% (BldA) [Mass fraction] 98 % Mark Alves [facility] 05-22-2024 10:00-0400 Systolic blood pressure 143 mm[Hg] Mark Alves [facility] 05-22-2024 09:17-0400 Body temperature 97.7 [degF] Mark Mcadamse [facility] 05-22-2024 09:17-0400 Diastolic blood pressure 89 mm[Hg] Mark Alves [facility] 05-22-2024 09:17-0400 Heart rate 82 /min Mark Alves [facility] 05-22-2024 09:17-0400 Respiratory rate 20 /min Mark Alves [facility] 05-22-2024 09:17-0400 SaO2% (BldA) [Mass fraction] 94 % Mark Mcadamse [facility] 05-22-2024 09:17-0400 Systolic blood pressure 161 mm[Hg] Mark Mcadamse [facility] 05-21-2024 10:58-0400 Body height 187.96 cm Tiki Dockery DO Work Phone: [facility] 05-21-2024 10:58-0400 Body mass index (BMI) [Ratio] 24 kg/m2 Tiki Petznick DO Work Phone: [facility] 05-21-2024 10:58-0400 Body temperature 97.7 [degF] Tiki Petznick DO Work Phone: [facility] 05-21-2024 10:58-0400 Body weight 84.82 kg Tiki Petznick DO Work Phone: [facility] 05-21-2024 10:58-0400 Diastolic blood pressure 82 mm[Hg] Tiki Petznick DO Work Phone: [facility] 05-21-2024 10:58-0400 Heart rate 79 /min Tiki Petznick DO Work Phone: [facility] 05-21-2024 10:58-0400 Respiratory rate 16 /min Tiki Petznick DO Work Phone: [facility] 05-21-2024 10:58-0400 SaO2% (BldA) [Mass fraction] 98 % Tiki Petznick DO Work Phone: [facility] 05-21-2024 10:58-0400 Systolic blood pressure 171 mm[Hg] Tiki Petznick DO Work Phone: [facility] 05-18-2024 14:08-0400 Body height 187.96 cm Nasim Guillaume MD Work Phone: [facility] 05-18-2024 14:08-0400 Body mass index (BMI) [Ratio] 23.3 kg/m2 Nasim Guillaume MD Work Phone: [facility] 05-18-2024 14:08-0400 Body temperature 98.2 [degF] Nasim Guillaume MD Work Phone: [facility] 05-18-2024 14:08-0400 Body weight 82.55 kg Nasim Guillaume MD Work Phone: [facility] 05-18-2024 14:08-0400 Diastolic blood pressure 76 mm[Hg] Nasim Guillaume MD Work Phone: [facility] 05-18-2024 14:08-0400 Heart rate 89 /min Nasim Guillaume MD Work Phone: [facility] 05-18-2024 14:08-0400 Systolic blood pressure 143 mm[Hg] Nasim Guillaume MD Work Phone: [facility] 05-10-2024 00:56-0500 Body temperature 98 [degF] Nasim Guillaume MD Work Phone: [facility] 05-10-2024 00:56-0500 Diastolic blood pressure 70 mm[Hg] Nasim Guillaume MD Work Phone: [facility] 05-10-2024 00:56-0500 Heart rate 85 /min Nasim Guillaume MD Work Phone: [facility] 05-10-2024 00:56-0500 Respiratory rate 18 /min Nasim Guillaume MD Work Phone: [facility] 05-10-2024 00:56-0500 SaO2% (BldA) [Mass fraction] 95 % Nasim Guillaume MD Work Phone: [facility] 05-10-2024 00:56-0500 Systolic blood pressure 135 mm[Hg] Nasim Guillaume MD Work Phone: [facility] 05-10-2024 00:54-0500 Body height 187.96 cm Nasim Guillaume MD Work Phone: [facility] 05-10-2024 00:54-0500 Body weight 86.18 kg Nasim Guillaume MD Work Phone: [facility] 05-03-2024 04:06-0500 Body temperature 98.06 [degF] Chelsea Ortiz [facility] 05-03-2024 04:06-0500 Diastolic blood pressure 75 mm[Hg] Kaylinn Dokken [facility] 05-03-2024 04:06-0500 Heart rate 92 /min Camposylinn Dokken [facility] 05-03-2024 04:06-0500 Respiratory rate 20 /min Camposylinn Dokken [facility] 05-03-2024 04:06-0500 SaO2% (BldA) [Mass fraction] 97 % Nafisan Dokken [facility] 05-03-2024 04:06-0500 Systolic blood pressure 154 mm[Hg] Phaniinn Dokken [facility] 04-29-2024 09:23-0500 Body temperature 98.4 [degF] Nasim Guillaume MD Work Phone: [facility] 04-29-2024 09:23-0500 Body weight 91 kg Nasim Guillaume MD Work Phone: [facility] 04-29-2024 09:23-0500 Diastolic blood pressure 80 mm[Hg] Nasim Guillaume MD Work Phone: [facility] 04-29-2024 09:23-0500 Heart rate 83 /min Nasim Guillaume MD Work Phone: [facility] 04-29-2024 09:23-0500 Systolic blood pressure 152 mm[Hg] Nasim Guillaume MD Work Phone: [facility] 04-26-2024 13:54-0500 Diastolic blood pressure 60 mm[Hg] Danielle Vance [facility] 04-26-2024 13:54-0500 Heart rate 105 /min Danielle Rajiv [facility] 04-26-2024 13:54-0500 Mean blood pressure 83 mm[Hg] Danielle Rajiv [facility] 04-26-2024 13:54-0500 Respiratory rate 16 /min Danielle Rajiv [facility] 04-26-2024 13:54-0500 SaO2% (BldA) [Mass fraction] 96 % Danielle Rajiv [facility] 04-26-2024 13:54-0500 Systolic blood pressure 129 mm[Hg] Danielle Rajiv [facility] 04-26-2024 13:00-0500 Diastolic blood pressure 95 mm[Hg] Danielle Rajiv [facility] 04-26-2024 13:00-0500 Heart rate 104 /min Danielle Rajiv [facility] 04-26-2024 13:00-0500 Mean blood pressure 113 mm[Hg] Danielle Rajiv [facility] 04-26-2024 13:00-0500 Systolic blood pressure 148 mm[Hg] Danielle Rajiv [facility] 04-26-2024 12:55-0500 Diastolic blood pressure 65 mm[Hg] Danielle Rajiv [facility] 04-26-2024 12:55-0500 Heart rate 93 /min Danielle Rajiv [facility] 04-26-2024 12:55-0500 Mean blood pressure 88 mm[Hg] Danielle Rajiv [facility] 04-26-2024 12:55-0500 Respiratory rate 16 /min Danielle Rajiv [facility] 04-26-2024 12:55-0500 SaO2% (BldA) [Mass fraction] 95 % Danielle Rajiv [facility] 04-26-2024 12:55-0500 Systolic blood pressure 135 mm[Hg] Danielle Vance [facility] 04-26-2024 12:16-0500 Body temperature 98.42 [degF] Danielle Vance [facility] 04-26-2024 12:16-0500 Heart rate 121 /min Danielle Vance [facility] 04-26-2024 12:16-0500 Respiratory rate 20 /min Danielle Vance [facility] 04-24-2024 16:26-0500 Diastolic blood pressure 93 mm[Hg] Mark Alves [facility] 04-24-2024 16:26-0500 Heart rate 80 /min Mark Alves [facility] 04-24-2024 16:26-0500 Mean blood pressure 122 mm[Hg] Mark Mcadamse [facility] 04-24-2024 16:26-0500 Respiratory rate 20 /min Mark Alves [facility] 04-24-2024 16:26-0500 SaO2% (BldA) [Mass fraction] 98 % Mark Alves [facility] 04-24-2024 16:26-0500 Systolic blood pressure 180 mm[Hg] Mark Mcadamse [facility] 04-24-2024 15:30-0500 Diastolic blood pressure 78 mm[Hg] Mark Mcadamse [facility] 04-24-2024 15:30-0500 Heart rate 83 /min Mark Mcadamse [facility] 04-24-2024 15:30-0500 Mean blood pressure 102 mm[Hg] Mark Alves [facility] 04-24-2024 15:30-0500 Respiratory rate 29 /min Mark Alves [facility] 04-24-2024 15:30-0500 SaO2% (BldA) [Mass fraction] 99 % Mark Alves [facility] 04-24-2024 15:30-0500 Systolic blood pressure 150 mm[Hg] Mark Alves [facility] 04-24-2024 13:51-0500 Body temperature 97.7 [degF] Mark Alves [facility] 04-24-2024 13:51-0500 Diastolic blood pressure 86 mm[Hg] Mark Alves [facility] 04-24-2024 13:51-0500 Heart rate 102 /min Mark Alves [facility] 04-24-2024 13:51-0500 Respiratory rate 18 /min Mark Alves [facility] 04-24-2024 13:51-0500 SaO2% (BldA) [Mass fraction] 95 % Mark Alves [facility] 04-24-2024 13:51-0500 Systolic blood pressure 154 mm[Hg] Mark Alves [facility] 02-28-2024 09:54-0500 Body height 187.96 cm Nasim Guillaume MD Work Phone: [facility] 02-28-2024 09:54-0500 Body mass index (BMI) [Ratio] 24.3 kg/m2 Nasim Guillaume MD Work Phone: [facility] 02-28-2024 09:54-0500 Body temperature 97.3 [degF] Nasim Guillaume MD Work Phone: [facility] 02-28-2024 09:54-0500 Body weight 86.18 kg Nasim Guillaume MD Work Phone: [facility] 02-28-2024 09:54-0500 Diastolic blood pressure 82 mm[Hg] Nasim Guillaume MD Work Phone: [facility] 02-28-2024 09:54-0500 Heart rate 74 /min Nasim Guillaume MD Work Phone: [facility] 02-28-2024 09:54-0500 Respiratory rate 16 /min Nasim Guillaume MD Work Phone: [facility] 02-28-2024 09:54-0500 SaO2% (BldA) [Mass fraction] 98 % Nasim Guillaume MD Work Phone: [facility] 02-28-2024 09:54-0500 Systolic blood pressure 141 mm[Hg] Nasim Guillaume MD Work Phone: [facility] 02-14-2024 08:28-0500 Body height 182.9 cm Tiki Petznick DO Work Phone: [facility] 02-14-2024 08:28-0500 Body mass index (BMI) [Ratio] 25.36 kg/m2 Tiki Petznick DO Work Phone: [facility] 02-14-2024 08:28-0500 Body temperature 97.59 [degF] Tiki Petznick DO Work Phone: [facility] 02-14-2024 08:28-0500 Body weight 84.82 kg Tiki Petznick DO Work Phone: [facility] 02-14-2024 08:28-0500 Diastolic blood pressure 72 mm[Hg] Tiki Petznick DO Work Phone: [facility] 02-14-2024 08:28-0500 Heart rate 111 /min Tiki Petznick DO Work Phone: [facility] 02-14-2024 08:28-0500 SaO2% (BldA) [Mass fraction] 98 % Tiki Petznick DO Work Phone: [facility] 02-14-2024 08:28-0500 Systolic blood pressure 130 mm[Hg] Tiki Petznick DO Work Phone: [facility] 02-13-2024 13:06-0500 Body height 187.96 cm Nasim Guillaume MD Work Phone: [facility] 02-13-2024 13:06-0500 Body mass index (BMI) [Ratio] 24.8 kg/m2 Nasim Guillaume MD Work Phone: [facility] 02-13-2024 13:06-0500 Body weight 87.74 kg Nasim Guillaume MD Work Phone: [facility] 02-13-2024 13:06-0500 Diastolic blood pressure 85 mm[Hg] Nasim Guillaume MD Work Phone: [facility] 02-13-2024 13:06-0500 Heart rate 104 /min Nasim Guillaume MD Work Phone: [facility] 02-13-2024 13:06-0500 Systolic blood pressure 142 mm[Hg] Nasim Guillaume MD Work Phone: [facility] 02-10-2024 15:55-0500 Respiratory rate 24 /min Mark Alves [facility] 02-10-2024 15:55-0500 SaO2% (BldA) [Mass fraction] 100 % Mark Alves [facility] 02-10-2024 15:15-0500 Body temperature 98.06 [degF] Mark Alves [facility] 02-10-2024 15:15-0500 Diastolic blood pressure 82 mm[Hg] Mark Alves [facility] 02-10-2024 15:15-0500 Heart rate 93 /min Mark Alves [facility] 02-10-2024 15:15-0500 Respiratory rate 22 /min Mark Alves [facility] 02-10-2024 15:15-0500 SaO2% (BldA) [Mass fraction] 99 % Mark Alves [facility] 02-10-2024 15:15-0500 Systolic blood pressure 141 mm[Hg] Mark Alves [facility] 02-03-2024 13:57-0500 Body height 187.96 cm Nasim Guillaume MD Work Phone: [facility] 02-03-2024 13:57-0500 Body mass index (BMI) [Ratio] 25 kg/m2 Nasim Guillaume MD Work Phone: [facility] 02-03-2024 13:57-0500 Body temperature 97.1 [degF] Nasim Guillaume MD Work Phone: [facility] 02-03-2024 13:57-0500 Body weight 88.56 kg Nasim uGillaume MD Work Phone: [facility] 02-03-2024 13:57-0500 Diastolic blood pressure 79 mm[Hg] Nasim Guillaume MD Work Phone: [facility] 02-03-2024 13:57-0500 Heart rate 83 /min Nasim Guillaume MD Work Phone: [facility] 02-03-2024 13:57-0500 Respiratory rate 16 /min Nasim Guillaume MD Work Phone: [facility] 02-03-2024 13:57-0500 SaO2% (BldA) [Mass fraction] 93 % Nasim Guillaume MD Work Phone: [facility] 02-03-2024 13:57-0500 Systolic blood pressure 141 mm[Hg] Nasim Guillaume MD Work Phone: [facility] 01-06-2024 10:33-0400 Blood Pressure Location Donna Galea [facility] 01-06-2024 10:33-0400 Diastolic blood pressure 64 mm[Hg] Donna Galea [facility] 01-06-2024 10:33-0400 Heart rate 64 /min Donna Galea [facility] 01-06-2024 10:33-0400 Systolic blood pressure 114 mm[Hg] Donna Galea [facility] 12-31-2023 09:24-0400 Body temperature 97.9 [degF] DO Tiki Petznick Work Phone: [facility] 12-31-2023 09:24-0400 Body weight 94 kg DO Tiki Petznick Work Phone: [facility] 12-31-2023 09:24-0400 Diastolic blood pressure 74 mm[Hg] DO Tiki Petznick Work Phone: [facility] 12-31-2023 09:24-0400 Heart rate 70 /min DO Tiki Petznick Work Phone: [facility] 12-31-2023 09:24-0400 Systolic blood pressure 141 mm[Hg] DO Tiki Petznick Work Phone: [facility] 12-10-2023 10:22-0400 Body height 182.9 cm Tiki Petznick DO Work Phone: [facility] 12-10-2023 10:22-0400 Body mass index (BMI) [Ratio] 28.32 kg/m2 Tiki Petznick DO Work Phone: [facility] 12-10-2023 10:22-0400 Body temperature 97.5 [degF] Tiki Petznick DO Work Phone: [facility] 12-10-2023 10:22-0400 Body weight 94.71 kg Tiik Petznick DO Work Phone: [facility] 12-10-2023 10:22-0400 Diastolic blood pressure 62 mm[Hg] Tiki Petznick DO Work Phone: [facility] 12-10-2023 10:22-0400 Heart rate 77 /min Tiki Petznick DO Work Phone: [facility] 12-10-2023 10:22-0400 SaO2% (BldA) [Mass fraction] 97 % Tiki Petznick DO Work Phone: [facility] 12-10-2023 10:22-0400 Systolic blood pressure 126 mm[Hg] Tiki Petznick DO Work Phone: [facility] 11-26-2023 10:05-0400 Body height 182.9 cm Tiki Petznick DO Work Phone: [facility] 11-26-2023 10:05-0400 Body mass index (BMI) [Ratio] 28.75 kg/m2 Tiki Petznick DO Work Phone: [facility] 11-26-2023 10:05-0400 Body temperature 97 [degF] Tiki Petznick DO Work Phone: [facility] 11-26-2023 10:05-0400 Body weight 96.16 kg Tiki Petznick DO Work Phone: [facility] 11-26-2023 10:05-0400 Diastolic blood pressure 68 mm[Hg] Tiki Petznick DO Work Phone: [facility] 11-26-2023 10:05-0400 Heart rate 72 /min Tiki Petznick DO Work Phone: 9(171)033-554589 [place] [address] 11-26-2023 10:05-0400 SaO2% (BldA) [Mass fraction] 97 % Tiki Petznick DO Work Phone: 8(956)997-349789 [place] [address] 11-26-2023 10:05-0400 Systolic blood pressure 120 mm[Hg] Tiki Petznick DO Work Phone: 1(762)443-322089 [place] [address] 11-21-2023 13:01-0400 Body height 187.96 cm DO Tiki Petznick Work Phone: 5(076)770-510306 [place] [address] 11-21-2023 13:01-0400 Body temperature 98.4 [degF] DO Tiki Petznick Work Phone: 4(890)946-472306 [place] [address] 11-21-2023 13:01-0400 Body weight 94.15 kg DO Tiki Petznick Work Phone: 8(360)786-498406 [place] [address] 11-21-2023 13:01-0400 Diastolic blood pressure 86 mm[Hg] DO Tiki Petznick Work Phone: 3(904)102-850306 [place] [address] 11-21-2023 13:01-0400 Heart rate 75 /min DO Tiki Petznick Work Phone: 0(638)748-766006 [place] [address] 11-21-2023 13:01-0400 Respiratory rate 20 /min DO Tiki Petznick Work Phone: 3(064)163-096806 [place] [address] 11-21-2023 13:01-0400 SaO2% (BldA) [Mass fraction] 97 % DO Tiki Petznick Work Phone: 0(018)692-076306 [place] [address] 11-21-2023 13:01-0400 Systolic blood pressure 160 mm[Hg] DO Tiki Petznick Work Phone: 1(823)737-086806 [place] [address] 11-21-2023 11:26-0400 Body height 187.96 cm DO Tiki Petznick Work Phone: 2(000)055-680606 [place] [address] 11-21-2023 11:26-0400 Body mass index (BMI) [Ratio] 27.2 kg/m2 DO Tiki Petznick Work Phone: 2(959)965-619406 [place] [address] 11-21-2023 11:26-0400 Body temperature 97.9 [degF] DO Tiki Petznick Work Phone: [facility] 11-21-2023 11:26-0400 Body weight 96.16 kg DO Tiki Petznick Work Phone: [facility] 11-21-2023 11:26-0400 Diastolic blood pressure 73 mm[Hg] DO Tiki Petznick Work Phone: [facility] 11-21-2023 11:26-0400 Heart rate 83 /min DO Tiki Petznick Work Phone: [facility] 11-21-2023 11:26-0400 Respiratory rate 16 /min DO Tiki Petznick Work Phone: [facility] 11-21-2023 11:26-0400 SaO2% (BldA) [Mass fraction] 99 % DO Tiki Petznick Work Phone: [facility] 11-21-2023 11:26-0400 Systolic blood pressure 137 mm[Hg] DO Tiki Petznick Work Phone: [facility] 10-20-2023 10:35-0400 Heart rate 70 /min [facility] 10-20-2023 10:35-0400 SaO2% (BldA) [Mass fraction] 97 % [facility] 10-20-2023 10:34-0400 Diastolic blood pressure 67 mm[Hg] [facility] 10-20-2023 10:34-0400 Mean blood pressure 88 mm[Hg] [facility] 10-20-2023 10:34-0400 Systolic blood pressure 130 mm[Hg] [facility] 10-20-2023 10:00-0400 Heart rate 80 /min [facility] 10-20-2023 10:00-0400 SaO2% (BldA) [Mass fraction] 96 % [facility] 10-20-2023 09:59-0400 Diastolic blood pressure 55 mm[Hg] [facility] 10-20-2023 09:59-0400 Mean blood pressure 70 mm[Hg] [facility] 10-20-2023 09:59-0400 Systolic blood pressure 99 mm[Hg] [facility] 10-19-2023 10:57-0400 Blood Pressure Location [facility] 10-19-2023 10:57-0400 Body temperature 97.7 [degF] [facility] 10-19-2023 10:57-0400 Diastolic blood pressure 53 mm[Hg] [facility] 10-19-2023 10:57-0400 Heart rate 70 /min [facility] [facility]23 10:57-0400 Mean blood pressure 66 mm[Hg] [facility] 10-19-2023 10:57-0400 Respiratory rate 18 /min [facility] 10-19-2023 10:57-0400 SaO2% (BldA) [Mass fraction] 98 % [facility] 10-19-2023 10:57-0400 Systolic blood pressure 93 mm[Hg] [facility] 10-19-2023 10:00-0400 Body temperature 97.88 [degF] [facility] 10-19-2023 10:00-0400 Heart rate 68 /min [facility] 10-19-2023 10:00-0400 Mean blood pressure 67 mm[Hg] [facility] 10-19-2023 10:00-0400 Respiratory rate 16 /min [facility] 10-18-2023 10:08-0400 Heart rate 86 /min Kathijorge CARIAS [facility] 10-18-2023 10:08-0400 Mean blood pressure 71 mm[Hg] Kathijudy CARIAS [facility] 10-18-2023 10:07-0400 Respiratory rate 18 /min Kathijorge CARIAS [facility] 10-17-2023 10:33-0400 Blood Pressure Location [facility] JV [facility] 10-17-2023 10:33-0400 Body temperature 98.42 [degF] Kathi CARIAS [facility] 10-15-2023 08:25-0400 Body temperature 98.2 [degF] DO Tiki Petznick Work Phone: [facility] 10-15-2023 08:25-0400 Body weight 95 kg DO Tiki Petznick Work Phone: [facility] 10-15-2023 08:25-0400 Diastolic blood pressure 61 mm[Hg] DO Tiki Petznick Work Phone: [facility] 10-15-2023 08:25-0400 Heart rate 85 /min DO Tiki Petznick Work Phone: [facility] 10-15-2023 08:25-0400 Systolic blood pressure 135 mm[Hg] DO Tiki Petznick Work Phone: [facility] 10-13-2023 09:59-0400 Body temperature 97.52 [degF] Kathi CARIAS [facility] 10-12-2023 11:10-0400 Heart rate 68 /min Kathijudy CARIAS [facility] 10-12-2023 11:10-0400 Mean blood pressure 93 mm[Hg] [facility]-10-[facility]23 12:35-0400 Heart rate 99 /min Kathijudy CARIAS [facility] 10-10-2023 12:35-0400 SaO2% (BldA) [Mass fraction] 94 % [facility] 10-10-2023 12:35-0400 Respiratory rate 18 /min Kathijorge CARIAS [facility] 10-10-2023 12:35-0400 Diastolic blood pressure 63 mm[Hg] Kathijorge CARIAS [facility] 10-10-2023 12:35-0400 Mean blood pressure 77 mm[Hg] Kathi JV [facility] 10-10-2023 12:35-0400 Systolic blood pressure 104 mm[Hg] Kathi JV [facility] 10-09-2023 12:15-0400 Hourly Rounding Ronobir LANNY [facility] 10-09-2023 12:15-0400 Promise to Return Ronobir LANNY [facility] 10-09-2023 11:28-0400 Heart rate 92 /min Ronobir LANNY [facility] 10-09-2023 11:28-0400 Respiratory rate 18 /min Ronobir LANNY [facility] 10-09-2023 11:28-0400 SaO2% (BldA) [Mass fraction] 96 % Ronobir LANNY [facility] 10-09-2023 11:20-0400 Heart rate 94 /min Ronobir LANNY [facility] 10-09-2023 11:20-0400 SaO2% (BldA) [Mass fraction] 95 % Ronobir LANNY [facility] 10-09-2023 11:20-0400 Diastolic blood pressure 92 mm[Hg] Ronobir LANNY [facility] 10-09-2023 11:20-0400 Mean blood pressure 116 mm[Hg] Ronobir LANNY [facility] 10-09-2023 11:20-0400 Systolic blood pressure 164 mm[Hg] Ronobir LANNY [facility] 10-09-2023 11:19-0400 Body temperature 98.24 [degF] Ronobir LANNY [facility] 10-09-2023 11:17-0400 Heart rate 99 /min Ronobir LANNY [facility] 10-09-2023 11:17-0400 SaO2% (BldA) [Mass fraction] 95 % Ronobir LANNY [facility] 10-09-2023 11:17-0400 Diastolic blood pressure 91 mm[Hg] Ronobir LANNY [facility] 10-09-2023 11:17-0400 Mean blood pressure 116 mm[Hg] Ronobir LANNY [facility] 10-09-2023 11:17-0400 Systolic blood pressure 165 mm[Hg] Ronobir LANNY [facility] 10-09-2023 11:17-0400 Body temperature 98.06 [degF] Ronobir LANNY [facility] 10-09-2023 11:17-0400 Respiratory rate 18 /min Ronobir LANNY [facility] 10-09-2023 11:00-0400 Hourly Rounding Ronobir LANNY [facility] 10-09-2023 11:00-0400 Promise to Return Ronobir LANNY [facility] 10-09-2023 10:00-0400 Hourly Rounding Ronobir LANNY [facility] 10-09-2023 10:00-0400 Promise to Return Ronobir LANNY [facility] 10-09-2023 07:36-0400 Respiratory rate 16 /min Ronobir LANNY [facility] 10-09-2023 04:15-0400 Body temperature 97.7 [degF] Ronobir LANNY [facility] 10-09-2023 04:15-0400 Mean blood pressure 106 mm[Hg] Ronobir LANNY [facility] 10-08-2023 19:00-0400 gluc 300 mg/dL Ronobir LANNY [facility] 10-08-2023 01:00-0400 Body temperature 97.7 [degF] Ronobir LANNY [facility] 10-07-2023 20:00-0400 gluc 309 mg/dL Ronobir LANNY [facility] 10-07-2023 14:25-0400 Blood Pressure Location Ronobir LANNY [facility] 10-07-2023 14:25-0400 Body temperature 98.24 [degF] Ronobir LANNY [facility] 10-07-2023 12:47-0400 gluc 389 mg/dL Ronobir LANNY [facility] 10-06-2023 20:43-0400 Blood Pressure Location Ronobir LANNY [facility] 10-06-2023 10:05-0400 Heart rate 95 /min Ronobir LANNY [facility] 10-06-2023 03:00-0400 Mean blood pressure 97 mm[Hg] Ronobir LANNY [facility] 10-06-2023 00:40-0400 Mean blood pressure 95 mm[Hg] Ronobir LANNY [facility] 10-05-2023 08:51-0400 Heart rate 93 /min Ronobir LANNY [facility] 10-05-2023 05:05-0400 Heart rate 98 /min Ronobir LANNY [facility] 10-05-2023 03:52-0400 Respiratory rate 15 /min Ronobir LANNY [facility] 10-05-2023 02:23-0400 Respiratory rate 25 /min Ronobir LANNY [facility] 10-05-2023 02:20-0400 Respiratory rate 25 /min Ronobir LANNY [facility] 10-05-2023 01:42-0400 SaO2% (BldA) [Mass fraction] 66.0 % Ronobir LANNY [facility] 10-05-2023 01:18-0400 Heart rate 130 /min Ronobir LANNY [facility] 09-21-2023 13:24-0400 Hourly Rounding Jesse Angelo [facility] 09-21-2023 13:24-0400 Promise to Return Jesse Angelo [facility] 09-21-2023 12:17-0400 Hourly Rounding Jesse Angelo [facility] 09-21-2023 12:17-0400 Promise to Return Jesse Slaughtersh [facility] 09-21-2023 12:00-0400 Body temperature 98.24 [degF] Jesse Slaughtersh [facility] 09-21-2023 12:00-0400 Diastolic blood pressure 79 mm[Hg] Jesse Slaughtersh [facility] 09-21-2023 12:00-0400 gluc 123 mg/dL Jesse Angelo [facility] 09-21-2023 12:00-0400 Heart rate 66 /min Jesse Slaughtersh [facility] 09-21-2023 12:00-0400 Mean blood pressure 106 mm[Hg] Jesse Slaughtersh [facility] 09-21-2023 12:00-0400 SaO2% (BldA) [Mass fraction] 98 % Jesse Slaughtersh [facility] 09-21-2023 12:00-0400 Systolic blood pressure 160 mm[Hg] Jesse Slaughtersh [facility] 09-21-2023 11:11-0400 Hourly Rounding Jesse Slaughtersh [facility] 09-21-2023 11:11-0400 Promise to Return Jesse Slaughtersh [facility] 09-21-2023 09:50-0400 Diastolic blood pressure 70 mm[Hg] Jesse Slaughtersh [facility] 09-21-2023 09:50-0400 Systolic blood pressure 174 mm[Hg] Jesse Slaughtersh [facility] 09-21-2023 09:45-0400 Diastolic blood pressure 70 mm[Hg] Jesse Slaughtersh [facility] 09-21-2023 09:45-0400 Heart rate 74 /min Jesse Slaughtersh [facility] 09-21-2023 09:45-0400 Systolic blood pressure 174 mm[Hg] Jesse Slaughtersh [facility] 07-13-2024 07:35-0400 Heart rate 74 /min Jesse Angelo [facility] 09-21-2023 07:35-0400 SaO2% (BldA) [Mass fraction] 96 % Jesse Angelo [facility] 09-21-2023 07:35-0400 Mean blood pressure 105 mm[Hg] Jesse Slaughtersh [facility] 09-21-2023 07:34-0400 Body temperature 98.42 [degF] Jesse Angelo [facility] 09-21-2023 04:00-0400 Blood Pressure Location Jesse Angelo [facility] 09-21-2023 04:00-0400 Body temperature 97.7 [degF] Jesse Angelo [facility] 09-21-2023 04:00-0400 Heart rate 84 /min Jesse Angelo [facility] 09-21-2023 04:00-0400 Mean blood pressure 109 mm[Hg] Jesse Angelo [facility] 09-21-2023 04:00-0400 Respiratory rate 16 /min Jesse Angelo [facility] 09-20-2023 23:00-0400 Body temperature 97.34 [degF] Jesse Angelo [facility] 09-20-2023 23:00-0400 Mean blood pressure 110 mm[Hg] Jesse Slaughtersh [facility] 09-20-2023 23:00-0400 Respiratory rate 16 /min Jesse Slaughtersh [facility] 09-20-2023 21:19-0400 Heart rate 74 /min Jesse Slaughtersh [facility] 09-20-2023 20:04-0400 Mean blood pressure 101 mm[Hg] Jesse Angelo [facility] 09-20-2023 20:03-0400 Body temperature 97.88 [degF] Jesse Angelo [facility] 09-20-2023 16:23-0400 Body temperature 98.06 [degF] Jesse Angelo [facility] 09-20-2023 16:23-0400 Mean blood pressure 92 mm[Hg] Jesse Angelo [facility] 09-20-2023 16:00-0400 gluc 146 mg/dL Jesse Angelo [facility] 09-20-2023 12:00-0400 gluc 135 mg/dL Jesse Slaughtersh [facility] 09-20-2023 05:13-0400 Blood Pressure Location Jesse Angelo [facility] 09-20-2023 05:13-0400 Respiratory rate 15 /min Jeses Angelo [facility] 09-20-2023 00:00-0400 Respiratory rate 19 /min Jesse Angelo [facility] 09-19-2023 11:00-0400 Heart rate 76 /min Jesse Angelo [facility] 09-19-2023 08:05-0400 Heart rate 86 /min Jesse Angelo [facility] 09-19-2023 06:48-0400 Respiratory rate 16 /min Jesse Angelo [facility] 09-19-2023 00:32-0400 Heart rate 108 /min Jesse Angelo [facility] 09-19-2023 00:32-0400 Respiratory rate 20 /min Jesse Angelo [facility] 09-18-2023 21:53-0400 Heart rate 99 /min MD Nasim Guillaume Work Phone: [facility] 08-19-2023 12:14-0400 Body temperature 98.1 [degF] MD Nasim Guillaume Work Phone: [facility] 08-19-2023 12:14-0400 Diastolic blood pressure 84 mm[Hg] MD Nasim Guillaume Work Phone: [facility] 08-19-2023 12:14-0400 Heart rate 94 /min MD Nasim Guillaume Work Phone: [facility] 08-19-2023 12:14-0400 Respiratory rate 18 /min MD Nasim Guillaume Work Phone: [facility] 08-19-2023 12:14-0400 SaO2% (BldA) [Mass fraction] 95 % MD Nasim Guillaume Work Phone: [facility] 08-19-2023 12:14-0400 Systolic blood pressure 159 mm[Hg] MD Nasim Guillaume Work Phone: [facility] 08-19-2023 09:38-0400 Body height 187.96 cm MD Nasim Guillaume Work Phone: [facility] 08-19-2023 09:38-0400 Body weight 98 kg MD Nasim Guillaume Work Phone: [facility] 08-16-2023 10:49-0400 Body height 187.96 cm MD Nasim Guillaume Work Phone: [facility] 08-16-2023 10:49-0400 Body mass index (BMI) [Ratio] 29.1 kg/m2 MD Nasim Guillaume Work Phone: [facility] 08-16-2023 10:49-0400 Body temperature 97.7 [degF] MD Nasim Guillaume Work Phone: [facility] 08-16-2023 10:49-0400 Body weight 102.96 kg MD Nasim Guillaume Work Phone: [facility] 08-16-2023 10:49-0400 Diastolic blood pressure 68 mm[Hg] MD Nasim Guillaume Work Phone: [facility] 08-16-2023 10:49-0400 Heart rate 88 /min MD Nasim Guillaume Work Phone: [facility] 08-16-2023 10:49-0400 Respiratory rate 16 /min MD Nasim Guillaume Work Phone: [facility] 08-16-2023 10:49-0400 SaO2% (BldA) [Mass fraction] 97 % MD Nasim Guillaume Work Phone: [facility] 08-16-2023 10:49-0400 Systolic blood pressure 135 mm[Hg] MD Nasim Guillaume Work Phone: [facility] 08-09-2023 11:44-0400 Body height 187.96 cm MD Nasim Guillaume Work Phone: [facility] 08-09-2023 11:44-0400 Body mass index (BMI) [Ratio] 28 kg/m2 MD Nasim Guillaume Work Phone: [facility] 08-09-2023 11:44-0400 Body temperature 97.4 [degF] MD Nasim Guillaume Work Phone: [facility] 08-09-2023 11:44-0400 Body weight 98.88 kg MD Nasim Guillaume Work Phone: [facility] 08-09-2023 11:44-0400 Diastolic blood pressure 74 mm[Hg] MD Nasim Guillaume Work Phone: [facility] 08-09-2023 11:44-0400 Heart rate 69 /min MD Nasim Guillaume Work Phone: [facility] 08-09-2023 11:44-0400 SaO2% (BldA) [Mass fraction] 97 % MD Nasim Guillaume Work Phone: [facility] 08-09-2023 11:44-0400 Systolic blood pressure 132 mm[Hg] MD Nasim Guillaume Work Phone: [facility] 06-24-2023 15:09-0400 Body height 187.96 cm DO Tiki Petznick Work Phone: [facility] 06-24-2023 15:09-0400 Body mass index (BMI) [Ratio] 28.4 kg/m2 DO Tiki Petznick Work Phone: [facility] 06-24-2023 15:09-0400 Body temperature 99 [degF] DO Tiki Petznick Work Phone: [facility] 06-24-2023 15:09-0400 Body weight 100.35 kg DO Tiki Petznick Work Phone: [facility] 06-24-2023 15:09-0400 Diastolic blood pressure 72 mm[Hg] DO Tiki Petznick Work Phone: [facility] 06-24-2023 15:09-0400 Heart rate 81 /min DO Tiki Petznick Work Phone: [facility] 06-24-2023 15:09-0400 Respiratory rate 16 /min DO Tiki Petznick Work Phone: [facility] 06-24-2023 15:09-0400 SaO2% (BldA) [Mass fraction] 94 % DO Tiki Petznick Work Phone: [facility] 06-24-2023 15:09-0400 Systolic blood pressure 123 mm[Hg] DO Tiki Petznick Work Phone: [facility] 05-30-2023 14:57-0400 Body height 187.96 cm DO Tiki Petznick Work Phone: [facility] 05-30-2023 14:57-0400 Body mass index (BMI) [Ratio] 30.2 kg/m2 DO Tiki Petznick Work Phone: [facility] 05-30-2023 14:57-0400 Body temperature 98.5 [degF] DO Tiki Petznick Work Phone: [facility] 05-30-2023 14:57-0400 Body weight 107.04 kg DO Tiki Petznick Work Phone: [facility] 05-30-2023 14:57-0400 Diastolic blood pressure 77 mm[Hg] DO Tiki Petznick Work Phone: [facility] 05-30-2023 14:57-0400 Systolic blood pressure 140 mm[Hg] DO Tiki Petznick Work Phone: [facility] 05-22-2023 10:16-0400 Body height 187.96 cm DO Tiki Petznick Work Phone: [facility] 05-22-2023 10:16-0400 Body mass index (BMI) [Ratio] 29.4 kg/m2 DO Tiki Petznick Work Phone: [facility] 05-22-2023 10:16-0400 Body temperature 97.3 [degF] DO Tiki Petznick Work Phone: [facility] 05-22-2023 10:16-0400 Body weight 103.87 kg DO Tiki Petznick Work Phone: [facility] 05-22-2023 10:16-0400 Diastolic blood pressure 66 mm[Hg] DO Tiki Petznick Work Phone: [facility] 05-22-2023 10:16-0400 Heart rate 85 /min DO Tiki Petznick Work Phone: [facility] 05-22-2023 10:16-0400 Respiratory rate 16 /min DO Tiki Petznick Work Phone: [facility] 05-22-2023 10:16-0400 SaO2% (BldA) [Mass fraction] 96 % DO Tiki Petznick Work Phone: [facility] 05-22-2023 10:16-0400 Systolic blood pressure 133 mm[Hg] DO Tiki Petznick Work Phone: [facility] 05-02-2023 22:42-0500 Diastolic blood pressure 70 mm[Hg] MD Nasim Guillaume Work Phone: [facility] 05-02-2023 22:42-0500 Heart rate 101 /min MD Nasim Guillaume Work Phone: [facility] 05-02-2023 22:42-0500 Respiratory rate 18 /min MD Nasim Guillaume Work Phone: [facility] 05-02-2023 22:42-0500 SaO2% (BldA) [Mass fraction] 94 % MD Nasim Guillaume Work Phone: [facility] 05-02-2023 22:42-0500 Systolic blood pressure 147 mm[Hg] MD Nasim Guillaume Work Phone: [facility] 05-02-2023 18:45-0500 Body height 187.96 cm MD Nasim Guillaume Work Phone: [facility] 05-02-2023 18:45-0500 Body temperature 100.2 [degF] MD Nasim Guillaume Work Phone: [facility] 05-02-2023 18:45-0500 Body weight 108.86 kg MD Nasim Guillaume Work Phone: [facility] 05-01-2023 21:12-0500 SaO2% (BldA) [Mass fraction] 94 % MD Nasim Guillaume Work Phone: [facility] 05-01-2023 20:59-0500 Body temperature 98.4 [degF] MD Nasim Guillaume Work Phone: [facility] 05-01-2023 20:59-0500 Diastolic blood pressure 74 mm[Hg] MD Nasim Guillaume Work Phone: [facility] 05-01-2023 20:59-0500 Heart rate 103 /min MD Nasim Guillaume Work Phone: [facility] 05-01-2023 20:59-0500 Inhaled oxygen flow rate 3.5 L/min MD Nasim Guillaume Work Phone: [facility] 05-01-2023 20:59-0500 Respiratory rate 22 /min MD Nasim Guillaume Work Phone: [facility] 05-01-2023 20:59-0500 Systolic blood pressure 149 mm[Hg] MD Nasim Guillaume Work Phone: [facility] 05-01-2023 17:55-0500 Body height 187.96 cm MD Nasim Guillaume Work Phone: [facility] 05-01-2023 17:55-0500 Body weight 110.8 kg MD Nasim Guillaume Work Phone: [facility] 04-25-2023 09:58-0500 Body height 182.9 cm Tiki Petznick DO Work Phone: [facility] 04-25-2023 09:58-0500 Body mass index (BMI) [Ratio] 31.33 kg/m2 Tiki Petznick DO Work Phone: [facility] 04-25-2023 09:58-0500 Body temperature 98.6 [degF] Tiki Petznick DO Work Phone: [facility] 04-25-2023 09:58-0500 Body weight 104.78 kg Tiki Petznick DO Work Phone: [facility] 04-25-2023 09:58-0500 Diastolic blood pressure 78 mm[Hg] Tiki Petznick DO Work Phone: [facility] 04-25-2023 09:58-0500 Heart rate 79 /min Tiki Petznick DO Work Phone: [facility] 04-25-2023 09:58-0500 SaO2% (BldA) [Mass fraction] 96 % Tiki Petznick DO Work Phone: [facility] 04-25-2023 09:58-0500 Systolic blood pressure 136 mm[Hg] Tiki Petznick DO Work Phone: [facility] 04-18-2023 11:02-0500 Body height 182.9 cm Tiki Petznick DO Work Phone: [facility] 04-18-2023 11:02-0500 Body mass index (BMI) [Ratio] 31.46 kg/m2 Tiki Petznick DO Work Phone: [facility] 04-18-2023 11:02-0500 Body temperature 98.49 [degF] Tiki Petznick DO Work Phone: [facility] 04-18-2023 11:02-0500 Body weight 105.23 kg Tiki Petznick DO Work Phone: [facility] 04-18-2023 11:02-0500 Diastolic blood pressure 72 mm[Hg] Tiki Petznick DO Work Phone: [facility] 04-18-2023 11:02-0500 Heart rate 80 /min Tiki Petznick DO Work Phone: [facility] 04-18-2023 11:02-0500 SaO2% (BldA) [Mass fraction] 98 % Tiki Petznick DO Work Phone: [facility] 04-18-2023 11:02-0500 Systolic blood pressure 136 mm[Hg] Tiki Petznick DO Work Phone: [facility] 04-13-2023 12:41-0500 Diastolic blood pressure 91 mm[Hg] DO Tiki Petznick Work Phone: [facility] 04-13-2023 12:41-0500 Heart rate 78 /min DO Tiki Petznick Work Phone: [facility] 04-13-2023 12:41-0500 Respiratory rate 20 /min DO Tiki Petznick Work Phone: [facility] 04-13-2023 12:41-0500 SaO2% (BldA) [Mass fraction] 94 % DO Tiki Petznick Work Phone: [facility] 04-13-2023 12:41-0500 Systolic blood pressure 166 mm[Hg] DO Tiki Petznick Work Phone: [facility] 04-13-2023 09:43-0500 Body height 187.96 cm DO Tiki Petznick Work Phone: [facility] 04-13-2023 09:43-0500 Body weight 107.1 kg DO Tiki Petznick Work Phone: [facility] 04-13-2023 09:38-0500 Body temperature 97.8 [degF] DO Tiki Petznick Work Phone: [facility] 02-19-2023 14:32-0500 Body weight 107.5 kg Elba Maline PA-C Work Phone: [facility] 02-19-2023 14:32-0500 Diastolic blood pressure 70 mm[Hg] Elba Maline PA-C Work Phone: [facility] 02-19-2023 14:32-0500 Heart rate 85 /min Elba Maline PA-C Work Phone: [facility] 02-19-2023 14:32-0500 Systolic blood pressure 129 mm[Hg] Elba Maline PA-C Work Phone: [facility] 12-17-2022 09:40-0400 Body height 187.96 cm Tammy Fleming Other [employer] Other 12-17-2022 09:40-0400 Body mass index (BMI) [Ratio] 29.84 kg/m2 Tammy Lonnie Other [employer] Other 12-17-2022 09:40-0400 Body temperature 98.6 [degF] Tammy Lonnie Other [employer] Other 12-17-2022 09:40-0400 Body weight 105.42 kg Tammy Lonnie Other [employer] Other 12-17-2022 09:40-0400 Diastolic blood pressure 75 mm[Hg] Tammy Lonnie Other [employer] Other 12-17-2022 09:40-0400 Respiratory rate 18 /min Tammy Lonnie Other [employer] Other 12-17-2022 09:40-0400 SaO2% (BldA) [Mass fraction] 96 % Tammy Lonnie Other [employer] Other 12-17-2022 09:40-0400 Systolic blood pressure 139 mm[Hg] Tammy Lonnie Other [employer] Other 11-21-2022 10:50-0400 Body height 187.96 cm MD Nasim Guillaume Work Phone: [facility] 11-21-2022 10:50-0400 Body temperature 98.1 [degF] MD Nasim Guillaume Work Phone: [facility] 11-21-2022 10:50-0400 Body weight 107.31 kg MD Nasim Guillaume Work Phone: [facility] 11-21-2022 10:50-0400 Diastolic blood pressure 73 mm[Hg] MD Nasim Guillaume Work Phone: [facility] 11-21-2022 10:50-0400 Heart rate 74 /min MD Nasim Guillaume Work Phone: [facility] 11-21-2022 10:50-0400 Respiratory rate 20 /min MD Nasim Guillaume Work Phone: [facility] 11-21-2022 10:50-0400 SaO2% (BldA) [Mass fraction] 96 % MD Nasim Guillaume Work Phone: [facility] 11-21-2022 10:50-0400 Systolic blood pressure 128 mm[Hg] MD Nasim Guillaume Work Phone: [facility] 11-07-2022 17:09-0400 Body height 188 cm Jordan Jordan DO Work Phone: [facility] 11-07-2022 17:09-0400 Body weight 105.69 kg Jordan Jordan DO Work Phone: [facility] 11-07-2022 17:09-0400 Heart rate 74 /min Jordan Jordan DO Work Phone: [facility] 11-07-2022 17:09-0400 SaO2% (BldA) [Mass fraction] 97 % Jordan Jordan DO Work Phone: [facility] 10-19-2022 10:51-0400 Diastolic blood pressure 82 mm[Hg] Pacc 2 Work Phone: [facility] 10-19-2022 10:51-0400 Systolic blood pressure 160 mm[Hg] Pacc 2 Work Phone: [facility] 10-19-2022 10:06-0400 Body height 200.7 cm Pacc 2 Work Phone: [facility] 10-19-2022 10:06-0400 Body temperature 98.6 [degF] Pacc 2 Work Phone: [facility] 10-19-2022 10:06-0400 Body weight 108.41 kg Pacc 2 Work Phone: [facility] 10-19-2022 10:06-0400 Heart rate 90 /min Pacc 2 Work Phone: [facility] 10-19-2022 10:06-0400 Respiratory rate 20 /min Pacc 2 Work Phone: [facility] 10-19-2022 10:06-0400 SaO2% (BldA) [Mass fraction] 97 % Pacc 2 Work Phone: [facility] 08-13-2022 10:53-0400 Body height 188 cm Jordan Jordan DO Work Phone: [facility] 08-13-2022 10:53-0400 Body weight 111.13 kg Jordan Jordan DO Work Phone: [facility] 08-13-2022 10:53-0400 Heart rate 80 /min Jordan Jordan DO Work Phone: [facility] 08-13-2022 10:53-0400 SaO2% (BldA) [Mass fraction] 95 % Jordan Jordan DO Work Phone: [facility] 06-11-2022 16:20-0400 Body height 187.96 cm Tammy Lonnie Other [employer] Other 06-11-2022 16:20-0400 Body mass index (BMI) [Ratio] 30.91 kg/m2 Tammy Lonnie Other [employer] Other 06-11-2022 16:20-0400 Body temperature 98.2 [degF] Tammy Lonnie Other [employer] Other 06-11-2022 16:20-0400 Body weight 109.23 kg Tammy Lonnie Other [employer] Other 06-11-2022 16:20-0400 Diastolic blood pressure 75 mm[Hg] Tammy Lonnie Other [employer] Other 06-11-2022 16:20-0400 Respiratory rate 18 /min Tammy Lonnie Other [employer] Other 06-11-2022 16:20-0400 SaO2% (BldA) [Mass fraction] 97 % Tammy Lonnie Other [employer] Other 06-11-2022 16:20-0400 Systolic blood pressure 124 mm[Hg] Tammy Lonnie Other [employer] Other 05-17-2022 10:41-0500 Body temperature 98.2 [degF] MD Nasim Guillaume Work Phone: [facility] 05-17-2022 10:41-0500 Body weight 111.3 kg MD Nasim Guillaume Work Phone: [facility] 05-17-2022 10:41-0500 Diastolic blood pressure 95 mm[Hg] MD Nasim Guillaume Work Phone: [facility] 05-17-2022 10:41-0500 Heart rate 97 /min MD Nasim Guillaume Work Phone: [facility] 05-17-2022 10:41-0500 Respiratory rate 20 /min MD Nasim Guillaume Work Phone: [facility] 05-17-2022 10:41-0500 SaO2% (BldA) [Mass fraction] 99 % MD Nasim Guillaume Work Phone: [facility] 05-17-2022 10:41-0500 Systolic blood pressure 155 mm[Hg] MD Nasim Guillaume Work Phone: [facility] 02-15-2022 10:10-0500 Body height 187.96 cm MD Nasim Guillaume Work Phone: [facility] 02-15-2022 10:10-0500 Body weight 110 kg MD Nasim Guillaume Work Phone: [facility] 02-15-2022 10:10-0500 Diastolic blood pressure 81 mm[Hg] MD Nasim Guillaume Work Phone: [facility] 02-15-2022 10:10-0500 Heart rate 105 /min MD Nasim Guillaume Work Phone: [facility] 02-15-2022 10:10-0500 Respiratory rate 20 /min MD Nasim Guillaume Work Phone: [facility] 02-15-2022 10:10-0500 SaO2% (BldA) [Mass fraction] 98 % MD Nasim Guillaume Work Phone: [facility] 02-15-2022 10:10-0500 Systolic blood pressure 150 mm[Hg] MD Nasim Guillaume Work Phone: [facility] 12-12-2021 14:41-0400 Body temperature 98.6 [degF] DO Tiki Petznick Work Phone: [facility] 12-12-2021 14:41-0400 Body weight 105.36 kg DO Tiki Petznick Work Phone: [facility] 12-12-2021 14:41-0400 Diastolic blood pressure 86 mm[Hg] DO Tiki Petznick Work Phone: [facility] 12-12-2021 14:41-0400 Heart rate 92 /min DO Tiki Petznick Work Phone: [facility] 12-12-2021 14:41-0400 Respiratory rate 18 /min DO Tiki Petznick Work Phone: [facility] 12-12-2021 14:41-0400 SaO2% (BldA) [Mass fraction] 97 % DO Tiki Petznick Work Phone: [facility] 12-12-2021 14:41-0400 Systolic blood pressure 142 mm[Hg] DO Tiki Petznick Work Phone: [facility] 11-15-2021 10:13-0400 Body temperature 97 [degF] DO Tiki Petznick Work Phone: [facility] 11-15-2021 10:13-0400 Body weight 103.87 kg DO Tiki Petznick Work Phone: [facility] 11-15-2021 10:13-0400 Diastolic blood pressure 90 mm[Hg] DO Tiki Petznick Work Phone: [facility] 11-15-2021 10:13-0400 Heart rate 92 /min DO Tiki Petznick Work Phone: [facility] 11-15-2021 10:13-0400 Respiratory rate 16 /min DO Tiki Petznick Work Phone: [facility] 11-15-2021 10:13-0400 SaO2% (BldA) [Mass fraction] 95 % DO Tiki Petznick Work Phone: [facility] 11-15-2021 10:13-0400 Systolic blood pressure 152 mm[Hg] DO Tiki Petznick Work Phone: [facility] 10-25-2021 10:30-0400 Body height 187.96 cm Andrew Vazquez Other [employer] Other 10-25-2021 10:30-0400 Body mass index (BMI) [Ratio] 28.89 kg/m2 Andrew Vazquez Other [employer] Other 10-25-2021 10:30-0400 Body weight 102.06 kg Andrew Vazquez Other [employer] Other 09-06-2021 12:23-0400 Body height 187.96 cm DO Tiki Petznick Work Phone: [facility] 09-06-2021 12:23-0400 Body mass index (BMI) [Ratio] 27.6 kg/m2 DO Tiki Petznick Work Phone: [facility] 09-06-2021 12:23-0400 Body weight 97.52 kg DO Tiki Petznick Work Phone: [facility] 08-30-2021 11:00-0400 Body height 187.96 cm Andrew Vazquez Other [place] Other 08-30-2021 11:00-0400 Body mass index (BMI) [Ratio] 27.6 kg/m2 Andrew Vazquez Other [employer] Other 08-30-2021 11:00-0400 Body weight 97.52 kg Andrew Vazquez Other [employer] Other 08-30-2021 11:00-0400 Diastolic blood pressure 78 mm[Hg] Andrew Vazquez Other [employer] Other 08-30-2021 11:00-0400 Systolic blood pressure 141 mm[Hg] Andrew Vazquez Other [employer] Other 07-17-2021 11:15-0400 Body height 187.96 cm Kameron Mullen Other [place] Other 07-17-2021 11:15-0400 Body mass index (BMI) [Ratio] 27.09 kg/m2 Kameron Mullen Other [employer] Other 07-17-2021 11:15-0400 Body weight 95.71 kg Kameron Mullen Other [employer] Other 07-17-2021 11:15-0400 Diastolic blood pressure 68 mm[Hg] Kameron Mullen Other [employer] Other 07-17-2021 11:15-0400 SaO2% (BldA) [Mass fraction] 98 % Kameron Mullen Other [employer] Other 07-17-2021 11:15-0400 Systolic blood pressure 126 mm[Hg] Kameron Mullen Other [employer] Other 10-03-2020 09:13-0400 Body height 187.96 cm DO Tiki Dockery Work Phone: [facility] 02-15-2020 22:09-0500 Body temperature 37.0 {degrees_C} Margaret Ty AH-Zavrcwi-Stwmwozu [facility] Work Phone: Comment on above: NOTE: PATIENT RESULTS ARE NOT CORRECTED FOR TEMPERATURE. 02-15-2020 18:42-0500 Body temperature 37.0 {degrees_C} Margaret Crawford VZ-Xtwohgo-Mccwpnxm [facility] Work Phone: Comment on above: NOTE: PATIENT RESULTS ARE NOT CORRECTED FOR TEMPERATURE. 02-15-2020 16:36-0500 Body temperature 37.0 {degrees_C} Margaret Crawford ML-Zfhiyjy-Dahevvnp [facility] Work Phone: Comment on above: NOTE: PATIENT RESULTS ARE NOT CORRECTED FOR TEMPERATURE. 02-15-2020 15:11-0500 Body temperature 37.0 {degrees_C} Margaret Crawford KO-Newqkkl-Jfdzrrfs [facility] Work Phone: Comment on above: NOTE: PATIENT RESULTS ARE NOT CORRECTED FOR TEMPERATURE. 02-15-2020 13:21-0500 Body temperature 37.0 {degrees_C} Margaret Crawford CJ-Ycoljsf-Gfgqvojj [facility] Work Phone: Comment on above: NOTE: PATIENT RESULTS ARE NOT CORRECTED FOR TEMPERATURE. 02-15-2020 12:16-0500 Body temperature 37.0 {degrees_C} Margaret Crawford ET-Zxcjjlx-Xvbfmqzg [facility] Work Phone: Comment on above: NOTE: PATIENT RESULTS ARE NOT CORRECTED FOR TEMPERATURE. 02-15-2020 11:10-0500 Body temperature 37.0 {degrees_C} Margaret Crawford AA-Ijsytxj-Rvsoucgm [facility] Work Phone: Comment on above: NOTE: PATIENT RESULTS ARE NOT CORRECTED FOR TEMPERATURE. 02-05-2020 17:12-0500 BMI (Body Mass Index) 25.17 kg/m2 Margaret Crawford PH-Njzikqj-Urjfmtpq [facility] Work Phone: 02-05-2020 17:12-0500 Body weight 88.91 kg Margaret Crawford SO-Oaqsavb-Grvzv master [facility] Work Phone: 02-05-2020 17:12-0500 BP Diastolic 79 mm[Hg] Margaret Crawford IC-Blzddjq-Wajbw masetr [facility] Work Phone: 02-05-2020 17:12-0500 BP Systolic 137 mm[Hg] Margaret Crawford KB-Zscrzct-Iqbkd master [facility] Work Phone: 02-05-2020 17:12-0500 BSA (Body Surface Area) 2.15 m2 Margaret Crawford YH-Jlfyihh-Txnnzcqf [facility] Work Phone: 02-05-2020 17:12-0500 Height 187.96 cm Margarte Crawford GV-Cbjdfnq-Hdtfn master [facility] Work Phone: 02-05-2020 17:12-0500 Pulse (Heart Rate) 62 /min Margaret Crawford GJ-Tswccwn-Sr stlake [facility] Work Phone: 01-06-2020 11:15-0400 BMI (Body Mass Index) 26 kg/m2 Destiney Salas [facility] Work Phone: 01-06-2020 11:15-0400 Body Temperature 95.9 [degF] Destiney Salas [facility] Work Phone: 01-06-2020 11:15-0400 Body weight 91.85 kg Destiney Salas [facility] Work Phone: 01-06-2020 11:15-0400 BP Diastolic 75 mm[Hg] Destiney Salas [facility] Work Phone: 01-06-2020 11:15-0400 BP Systolic 166 mm[Hg] Destiney Salas [facility] Work Phone: 01-06-2020 11:15-0400 BSA (Body Surface Area) 2.18 m2 Destiney Salas [facility] Work Phone: 01-06-2020 11:15-0400 Height 187.96 cm Destiney Salas [facility] Work Phone: 01-06-2020 11:15-0400 Pulse (Heart Rate) 85 /min Destiney Salas [facility] Work Phone: Encounters Encounter Date Encounter Type Care Provider Facility Start: 05-29-2024 ambulatory Clarence Rebollar ty:[facility] Start: 05-22-2024 End: 05-22-2024 Emergency department patient visit Mark Alves [facility] Start: 05-21-2024 Evaluation and manag ement of inpatient Tiki Petznick DO Work Phone: [facility] Work Phone: Start: 05-21-2024 End: 05-21-2024 ambulatory Tiik Petznick DO Work Phone: [facility] Work Phone: Start: 05-21-2024 End: 05-21-2024 Patient encounter procedure Tiki Dockery DO Work Phone: [facility] Work Phone: Start: 05-19-2024 End: 05-19-2024 External Result Encounter Margaret Delgado MD Work Phone: [facility] External Department Unsolicited Start: 05-19-2024 End: 05-19-2024 External Result Encounter Margaret Delgado MD Work Phone: [facility] External Department Unsolicited Start: 05-19-2024 End: 05-19-2024 ambulatory Clarence SYED [facility] Start: 05-19-2024 End: 05-19-2024 Patient encounter procedure Clarence SYED [facility] Start: 05-18-2024 End: 05-18-2024 ambulatory Nasim Guillaume MD Work Phone: [facility] Work Phone: Start: 05-18-2024 End: 05-18-2024 Patient encounter procedure Nasim Guillaume MD Work Phone: [facility] Physician [facility] Work Phone: Start: 05-10-2024 End: 05-10-2024 Emergency department patient visit Nasim Guillaume MD Work Phone: [facility] Work Phone: Start: 05-04-2024 ambulatory Clarence SYED Facili ty:[facility] Start: 05-03-2024 End: 05-03-2024 Emergency department patient visit Chelsea Ortiz [facility] Start: 04-29-2024 End: 04-29-2024 ambulatory Nasim Guillaume MD Work Phone: [facility] Work Phone: Start: 04-29-2024 End: 04-29-2024 Patient encounter procedure Nasim Guillaume MD Work Phone: [facility] Physician [facility] Work Phone: Start: 04-26-2024 End: 04-26-2024 Emergency department patient visit Danielle Vance [facility] Start: 04-24-2024 End: 04-24-2024 Emergency department patient visit Mark Alves [facility] Start: 04-21-2024 End: 04-21-2024 ambulatory HERNANDEZ ARAMBULA Not Available Start: 04-17-2024 Non-patient / Non-visit Lenard Guillaume MD Work Phone: [facility] Work Phone: Start: 04-17-2024 End: 04-17-2024 Clinisync Result Encounter Generic External Data Provider [facility] External Department Unsolicited Start: 04-17-2024 End: 04-17-2024 Clinisync Result Encounter Generic External Data Provider [facility] External Department Unsolicited Start: 04-13-2024 End: 04-13-2024 Bamboo flowsheet Hernandez Arambula DPM Work Phone: [facility] Start: 04-13-2024 End: 04-13-2024 Bamboo flowsheet Hernandez Arambula DPM Work Phone: [facility] Start: 04-13-2024 End: 04-13-2024 Office outpatient visit 15 minutes Hernandez Arambula DPM Work Phone: [facility] Comment on above: Cellulitis of right heel (Primary Dx); Ulcer of heel, right, with fat layer exposed (CMS/HCC); Neuropathy; Type II diabetes mellitus with neurological manifestations (CMS/HCC) Start: 04-13-2024 End: 04-13-2024 ambulatory HERNANDEZ ARAMBULA Not Available Start: 01-23-2025 Registered Recurring Nasim martinez MD Work Phone: [facility] Start: 04-02-2024 ambulatory Bro Alas Facility:[facility] Start: 03-26-2024 Evaluation and manag ement of inpatient Nasim Guillaume MD Work Phone: [facility] Work Phone: Start: 03-26-2024 End: 03-26-2024 Office outpatient visit 25 minutes Hernandez Arambula DPM Work Phone: [facility] Comment on above: Neuropathy (Primary Dx); Type II diabetes mellitus with neurological manifestations (CMS/HCC); Cellulitis of right heel; Status post amputation of great toe, right (CMS/HCC); Ulcer of heel, right, with fat layer exposed (CMS/HCC); Onychomycosis Start: 03-26-2024 End: 03-26-2024 ambulatory HERNANDEZ ARAMBULA Not Available Start: 03-25-2024 End: 03-25-2024 Telephone encounter Tiki M Sarkis DO Work Phone: [phone] Comment on above: paperwork Start: 03-24-2024 End: 03-24-2024 ambulatory Clarence SYED [place] Start: 03-24-2024 End: 03-24-2024 Patient encounter procedure Clarence SYED [facility] Start: 03-09-2024 End: 03-09-2024 Telephone encounter Tiki Sumanth Dockery DO Work Phone: [phone] Start: 02-28-2024 End: 02-28-2024 Patient encounter procedure Nasim Guillaume MD Work Phone: [facility] Work Phone: Start: 02-24-2024 End: 02-24-2024 ambulatory TIKI DOCKERY [facility] Start: 02-24-2024 End: 02-24-2024 Patient encounter procedure TIKI DOCKERY [facility] Start: 02-17-2024 End: 02-17-2024 Clinisync Result Encounter Tiki Dockery DO Work Phone: [facility] External Department Unsolicited Start: 02-17-2024 End: 02-17-2024 Clinisync Result Encounter Tiki Dockery DO Work Phone: [facility] External Department Unsolicited Start: 02-17-2024 End: 02-17-2024 ambulatory TIKI DOCKERY [facility] Start: 02-17-2024 End: 02-17-2024 Patient encounter procedure TIKI DOCKERY [facility] Start: 02-14-2024 End: 02-14-2024 Bamboo flowsheet Tiki Lemusick DO Work Phone: [facility] Start: 02-14-2024 End: 02-14-2024 Bamboo flowsheet Tiki Lemusick DO Work Phone: [facility] Start: 02-14-2024 End: 02-14-2024 Telephone encounter Tiki Dockery DO Work Phone: [facility] Start: 02-14-2024 End: 02-14-2024 Office outpatient visit 25 minutes Tiki Lemusick DO Work Phone: [facility] Comment on above: Diarrhea, unspecifie d type (Primary Dx); Neck pain Start: 02-14-2024 End: 02-14-2024 ambulatory TIKI DOCKERY Not Available Start: 02-13-2024 End: 02-13-2024 Patient encounter procedure Nasim Guillaume MD Work Phone: [facility] Work Phone: Start: 02-10-2024 End: 02-10-2024 Emergency department patient visit Mark Alves [facility] Start: 02-10-2024 End: 02-10-2024 ambulatory Jadon Lino Facility:[facility] Start: 02-10-2024 End: 02-10-2024 Patient encounter procedure Jadon Lino [facility] Start: 02-03-2024 End: 02-03-2024 Patient encounter procedure Nasim Guillaume MD Work Phone: [facility] Physician [facility] Work Phone: Start: 01-24-2024 End: 01-24-2024 ambulatory HERNANDEZ MENDEZ [facility] Start: 01-24-2024 End: 01-24-2024 Lab Drop off HERNANDEZ MENDEZ [facility] Start: 01-23-2024 End: 01-23-2024 ambulatory Donna J Galea Facility[place] Start: 01-23-2024 End: 01-23-2024 Patient encounter procedure HERNANDEZ MENDEZ [facility] Start: 01-06-2024 End: 01-06-2024 ambulatory Donna J Galea Facility:[facility] Start: 01-06-2024 End: 01-06-2024 Patient encounter procedure Donna J Galea [facility] Start: 12-31-2023 End: 12-31-2023 ambulatory DO Tiki Petznick Work Phone: [facility] Work Phone: Start: 12-31-2023 End: 12-31-2023 Patient encounter procedure DO Tiki Petznick Work Phone: [facility] Physician [facility] Work Phone: Start: 12-30-2023 Evaluation and manag ement of inpatient DO Tiki Dockery Work Phone: [facility] Work Phone: Start: 12-13-2023 Non-patient / Non-visit DO Mejia Lemusick Work Phone: [facility] Work Phone: Start: 12-13-2023 End: 12-13-2023 ambulatory MD TAMMY FLEMING [facility] Start: 12-13-2023 End: 12-13-2023 Patient encounter procedure TAMMY FLEMING [facility] Start: 12-10-2023 End: 12-10-2023 Office outpatient visit [...] Not Available Start: 12-10-2023 Registered Recurring DO Fabiola vadles Petcatherineick Work Phone: [facility] Start: 11-26-2023 End: 11-26-2023 Office outpatient visit 15 minutes Tiki Lemusick DO Work Phone: [phone] Comment on above: Erectile dysfunction , unspecified erectile dysfunction type (Primary Dx); Abscess Start: 11-26-2023 End: 11-26-2023 ambulatory TIKISHANA LEMUSICK Not Available Start: 11-21-2023 End: 11-21-2023 Emergency department patient visit DO Tiki Petznick Work Phone: [facility] Work Phone: Start: 11-21-2023 End: 11-21-2023 ambulatory DO Tiki Petznick Work Phone: [facility] Work Phone: Start: 11-21-2023 End: 11-21-2023 Patient encounter procedure DO Tiki Petznick Work Phone: [facility] Work Phone: Start: 11-21-2023 Evaluation and manag ement of inpatient DO Tiki Petcatherineick Work Phone: [facility] Work Phone: Start: 11-19-2023 End: 11-19-2023 External Result Encounter Margaret Delgado MD Work Phone: [facility] External Department Unsolicited Start: 11-19-2023 End: 11-19-2023 External Result Encounter Margaret Delgado MD Work Phone: [facility] External Department Unsolicited Start: 10-24-2023 End: 11-19-2023 Orders Only Tiki Lemusick DO Work Phone: [facility] External Department Unsolicited Start: 10-24-2023 End: 10-24-2023 ambulatory TIKI M PETCATHERINEICK Not Available Start: 10-15-2023 End: 10-15-2023 ambulatory DO Tikishana Dockery Work Phone: [facility] Work Phone: Start: 10-15-2023 End: 10-15-2023 Patient encounter procedure DO Tikishana Dockery Work Phone: [facility] Work Phone: Start: 10-10-2023 End: 01-18-2024 ambulatory Kathi CARIAS [facility] Start: 10-10-2023 End: 10-10-2023 Patient encounter procedure Kathi CARIAS [facility] Start: 10-10-2023 End: 01-18-2024 Recurring Kathi CARIAS [facility] Start: 10-08-2023 ambulatory TIKI DOCKERY Facili ty:[facility] Start: 10-05-2023 End: 10-09-2023 Evaluation and management of inpatient DO Chelsea Ortiz [facility] Start: 10-05-2023 Emergency department patient visit Kasusan Ortiz Facility[facility] Start: 10-05-2023 End: 10-09-2023 Evaluation and management of inpatient Nereida CA [facility] Start: 09-27-2023 Evaluation and manag ement of inpatient DO Tiki Dockery Work Phone: [facility] Work Phone: Start: 09-20-2023 End: 09-21-2023 Evaluation and management of inpatient Jesse Angelo [facility] Start: 09-19-2023 ambulatory Jesse Angelo Facility[facility] Start: 09-19-2023 End: 09-21-2023 Evaluation and management of inpatient Jesse Angelo [facility] Start: 09-18-2023 End: 09-18-2023 Emergency department patient visit MD Nasim Guillaume Work Phone: [facility] Work Phone: Start: 09-10-2023 End: 09-10-2023 ambulatory TIKI PETZNICK Facility[place] Start: 09-10-2023 End: 09-10-2023 Patient encounter procedure TIKI DOCKEYR [facility] Start: 09-09-2023 End: 09-09-2023 ambulatory TIKI DOCKERY Not Available Start: 08-19-2023 End: 08-19-2023 Emergency department patient visit MD Nasim Guillaume Work Phone: [facility] Work Phone: Start: 08-16-2023 Evaluation and manag ement of inpatient MD Nasim Guillaume Work Phone: [facility] Work Phone: Start: 08-16-2023 End: 08-16-2023 ambulatory MD Nasim Guillaume Work Phone: [facility] Work Phone: Start: 08-16-2023 End: 08-16-2023 Patient encounter procedure MD Nasim Guillaume [facility] Work [facility]: Start: 08-09-2023 End: 08-09-2023 ambulatory MD Nasim Guillaume Work Phone: [facility] Work Phone: Start: 08-09-2023 End: 08-09-2023 Patient encounter procedure MD Nasim Guillaume Work Phone: [facility] Work Phone: Start: 06-27-2023 End: 06-27-2023 ambulatory DO Tiki Petznick Work Phone: [facility] Work Phone: Start: 06-27-2023 End: 06-27-2023 Patient encounter procedure DO Tiki Petznick Work Phone: [facility] Phys[facility] [place] [facility] Work Phone: Start: 06-27-2023 Evaluation and manag ement of inpatient DO Tiki Petznick [facility] Work Phone: Start: 06-24-2023 End: 06-24-2023 ambulatory DO Tiki Petznick Work Phone: [facility] Work Phone: Start: 06-24-2023 End: 06-24-2023 Patient encounter procedure DO Tiki Petznick Work Phone: [facility] Physician [facility] Work Phone: Start: 06-24-2023 End: 06-24-2023 ambulatory TIKI M PETZNICK Not Available Start: 06-19-2023 Non-patient / Non-visit DO All shana Petznick Work Phone: [facility] Physician [facility] Work Phone: Start: 06-19-2023 End: 06-19-2023 ambulatory TAMMY LONNIE [facility] Start: 06-19-2023 End: 06-19-2023 Patient encounter procedure TAMMY LONNIE [facility] Start: 05-30-2023 End: 05-30-2023 ambulatory DO Tiki Petznick Work Phone: [facility] Work Phone: Start: 05-30-2023 End: 05-30-2023 Patient encounter procedure DO Tiki Petznick Work Phone: [facility] Physician [facility] Work Phone: Start: 05-24-2023 Evaluation and manag ement of inpatient DO Tiki Cutlerznick Work Phone: [facility] Work Phone: Start: 05-22-2023 Telephone encounter Elba Henry PA-C Work Phone: Pain Management Comment on above: Appointment Start: 05-22-2023 End: 05-22-2023 Patient encounter procedure DO Tiki Petznick [facility] [place] [facility] Work Phone: Start: 05-20-2023 End: 05-20-2023 ambulatory HERNANDEZ ARAMBULA Not Available Start: 05-14-2023 End: 05-14-2023 ambulatory TIKI DOCKERY Facility:[facility] Start: 05-10-2023 Telephone encounter Elba Henry PA-C Work Phone: Pain Management Comment on above: Appointment Start: 05-02-2023 End: 05-02-2023 Emergency department patient visit MD Nasim Guillaume Work Phone: [facility] Work Phone: Start: 05-02-2023 End: 05-02-2023 ambulatory TIKI DOCKERY Not Available Start: 05-01-2023 End: 05-01-2023 Emergency department patient visit MD Nasim Guillaume Work Phone: [facility] Work Phone: Start: 04-25-2023 End: 04-25-2023 Office outpatient visit 15 minutes Tiki M Petznick DO Work Phone: [phone] Comment on above: Left wrist pain (Rolly dylan Dx) Start: 04-18-2023 Bamboo flowsheet Tiki M Pet znick DO Work Phone: [phone] Start: 04-18-2023 Bamboo flowsheet Tiki M Pet znick DO Work Phone: [facility] Start: 04-18-2023 End: 04-18-2023 Office outpatient visit 25 minutes Tiki Dockery DO Work Phone: [facility] [phone] Comment on above: COPD exacerbation (C MS/HCC) (Primary Dx); Simple chronic bronchitis (CMS/HCC); Type 2 diabetes mellitus with peripheral neuropathy (CMS/HCC); Diastolic dysfunction Start: 04-16-2023 End: 07-23-2023 ambulatory ELBA HENRY [facility] Start: 04-16-2023 End: 07-23-2023 Recurring ELBA HENRY [facility] Start: 04-13-2023 End: 04-13-2023 Emergency department patient visit DO Tiki Lemusick Work Phone: [facility] Work Phone: Start: 04-11-2023 End: 04-11-2023 ambulatory DO Tiki Cutlerznick Work Phone: [facility] Work Phone: Start: 04-11-2023 End: 04-11-2023 Patient encounter procedure DO Tiki Petznick Work Phone: [facility] [address] Work Phone: Start: 04-09-2023 Evaluation and manag ement of inpatient DO Tiki Petznick Work Phone: [facility] Acute Work Phone: Start: 03-29-2023 ambulatory TIKI CARRILLO Facility:[facility] Start: 03-29-2023 End: 03-29-2023 ambulatory ELBA HENRY Facility:[facility] Start: 03-14-2023 End: 03-14-2023 ambulatory Tammy Fleming Other [employer] Other Start: 03-14-2023 Telephone encounter Tammy Fleming [facility] Start: 02-19-2023 End: 02-19-2023 ambulatory ELBA HENRY Facility:[facility] Start: 02-19-2023 End: 02-19-2023 Office outpatient visit 15 minutes Elba Henry PA-C Work Phone: Pain Management Comment on above: Lumbar paraspinal mu scle spasm (Primary Dx); Spinal cord stimulator status; Bilateral foot pain Start: 02-04-2023 End: 02-04-2023 Evaluation and management of inpatient Ten SuggsJohn Suárez [place] Start: 01-30-2023 Registered Recurring DO Fabiola Dockery Work Phone: [facility] Start: 01-08-2023 End: 01-08-2023 ambulatory MD Nasim Guillaume Work Phone: [facility] Work Phone: Start: 01-08-2023 End: 01-08-2023 Patient encounter procedure MD Nasim Guillaume Work Phone: [facility]Ul[facility]ound [address] Work Phone: Start: 01-07-2023 End: 01-07-2023 ambulatory CHELSEY VANN Facility:[facility] Start: 01-01-2023 Evaluation and manag ement of inpatient MD Nasim Guillaume Work Phone: [facility] Work Phone: Start: 12-17-2022 End: 12-17-2022 ambulatory Tammy Lonnie Other [employer] Other Start: 12-17-2022 Office outpatient vi sit 25 minutes Tammy Lonnie [facility] Start: 12-10-2022 End: 12-10-2022 ambulatory TAMMY LONNIE [place] Start: 12-10-2022 End: 12-10-2022 Patient encounter procedure TAMMY LONNIE [facility] Start: 11-28-2022 End: 11-28-2022 ambulatory Andrew Vazquez Other [employer] Other Start: 11-28-2022 Telephone encounter Andrew Gilbert ck [facility] Start: 11-21-2022 End: 11-21-2022 ambulatory MD Nasim Guillaume Work Phone: [facility] Work Phone: Start: 11-21-2022 End: 11-21-2022 Evaluation and management of inpatient MD Nsaim Guillaume Work Phone: [facility] Work Phone: Start: 11-20-2022 End: 11-20-2022 ambulatory ELBA HENRY Facility:[facility] Start: 11-16-2022 Telephone encounter Jordan E G irgis DO Work Phone: Pain Management Comment on above: Pain procedure respo nse and follow up (Placement of Percutaneous SCS lead implantation x 2 and Medtronic Intellis adaptiveStim system implantable pulse generator. //) Start: 11-13-2022 End: 11-13-2022 ambulatory TIKI DOCKERY Facility:[facility] Start: 11-09-2022 Telephone encounter Jordan E G irgis DO Work Phone: Pain Management Comment on above: Procedure (SCS impla nt) Start: 11-08-2022 Telephone encounter Jordan E G irgis DO Work Phone: Ambulatory Surgery Comment on above: Schedule Injection Start: 11-07-2022 End: 11-07-2022 ambulatory JORDAN JORDAN Facility:[facility] Start: 11-07-2022 End: 11-07-2022 Patient encounter procedure Jordan E Jordan DO Work Phone: Pain Management Comment on above: Type 2 diabetes alisha itus with diabetic polyneuropathy, with long-term current use of insulin (HCC) (Primary Dx); Chemotherapy-induced neuropathy (HCC); Bilateral foot pain Start: 10-30-2022 End: 10-30-2022 ambulatory JORDAN Judy ORTEGA Facility:[facility] Start: 10-19-2022 Encounter for other preprocedural examination JORDANPARISA ORTEGA [facility] Start: 10-19-2022 End: 10-19-2022 Admission to establishment Pacc Av 2 Work Phone: [facility] Start: 10-19-2022 End: 10-20-2022 ambulatory TIKI DOCKERY [...] Chronic obstructive pulmonary disease, unspecified COPD type ([facility]) Start: 10-19-2022 End: 10-19-2022 Preprocedural examination done Pac 2 Work Phone: [facility] Work Phone: Start: 09-18-2022 Telephone encounter Jordan Judy diezgis DO Work Phone: Ambulatory Surgery Comment on above: Schedule Injection Start: 09-07-2022 End: 09-07-2022 ambulatory GURU OSORIO Facility:[facility] Start: 09-07-2022 End: 09-07-2022 Patient encounter procedure Guru Osorio PhD Work Phone: Pain Management Comment on above: 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) (Primary Dx); Pain disorder with related psychological factors; Type 2 diabetes mellitus with diabetic polyneuropathy, with long-term current use of insulin (HCC) Start: 08-13-2022 End: 08-13-2022 ambulatory TIKI DOCKERY Facility:[facility] Start: 08-13-2022 End: 08-13-2022 Patient encounter procedure Jordan Judy SantosJordan DO Work Phone: Pain Management Comment on above: Type 2 diabetes alisha itus with diabetic polyneuropathy, with long-term current use of insulin (HCC) (Primary Dx); Chemotherapy-induced neuropathy (HCC); Bilateral foot pain; Bilateral hand pain Start: 06-11-2022 End: 06-11-2022 ambulatory Tammy Fleming Other [employer] Other Start: 06-11-2022 Office outpatient ne w 45 minutes Tammy Fleming [facility] Start: 05-17-2022 End: 05-17-2022 ambulatory MD Nasim Guillaume Work Phone: [facility] Work Phone: Start: 05-17-2022 End: 05-17-2022 Registered Recurring MD Nasim Guillaume Work Phone: [facility] Work Phone: Start: 03-28-2022 Patient encounter procedure Messi Velazquez GARAGE CONSTRUCTION EQUIPMENT MECHANIC.HANDLE ASSEMBLER Work Phone: [facility] Start: 03-28-2022 Progress Note Alexander Velazquez GARAGE CONSTRUCTION EQUIPMENT MECHANIC.HANDLE ASSEMBLER Work Phone: [facility] Department Start: 03-26-2022 Patient encounter procedure Messi Velazquez GARAGE CONSTRUCTION EQUIPMENT MECHANIC.HANDLE ASSEMBLER Work Phone: [facility] Start: 03-26-2022 Progress Note Alexander Velazquez APRN.HANDLE ASSEMBLER Work Phone: [facility] Department Start: 03-23-2022 Patient encounter procedure It ri A Darrin Work Phone: [facility] Start: 03-23-2022 Progress Note Itri A Darrin Work Phone: [employer] Supervisor Start: 03-01-2022 End: 03-01-2022 Patient encounter procedure TIKI DOCKERY [facility] Start: 02-15-2022 End: 02-15-2022 ambulatory MD Nasim Guillaume Work Phone: [facility] Work Phone: Start: 02-15-2022 End: 02-15-2022 Registered Recurring MD Nasim uGillaume [facility] [place] Start: 12-12-2021 End: 12-12-2021 ambulatory DO Tiki Petznick Work Phone: [facility] Work Phone: Start: 12-12-2021 End: 12-12-2021 Registered Recurring DO Tiki Petznick [facility] Start: 11-15-2021 End: 11-15-2021 Registered Recurring DO Tiki Petznick [facility] [place] Start: 11-08-2021 End: 11-08-2021 ambulatory Andrew Vazquez Other [employer] Other Start: 11-08-2021 Telephone encounter Andrew Gilbert [facility] [place] Start: 11-01-2021 End: 11-01-2021 Patient encounter procedure DO Tiki Petznick Work Phone: [facility] Main [place] Start: 10-25-2021 End: 10-25-2021 ambulatory Andrew Vazquez Other [employer] Other Start: 10-25-2021 Office outpatient vi sit 15 minutes Andrew Vazquez [facility] G[facility] Start: 09-13-2021 End: 09-13-2021 Patient encounter procedure DO Tiki Petznick Work Phone: [facility]Ultrasound Main [place] Start: 09-06-2021 End: 09-06-2021 Patient encounter procedure DO Tiki Petznick Work Phone: [facility] Start: 08-30-2021 End: 08-30-2021 ambulatory Andrew Vazquez Other [employer] Other Start: 08-30-2021 Office outpatient vi sit 25 minutes Andrew Vazquez [facility] Start: 08-30-2021 End: 08-30-2021 Patient encounter procedure DO Tiki Dockery Work Phone: [facility] Main [place] Start: 08-14-2021 End: 08-14-2021 ambulatory Kameron Mullen Other [employer] Other Start: 08-14-2021 Telephone encounter Kameron Mullen [facility] Start: 08-11-[address] Margaret Delgado Facility:[id number] Start: 07-17-2021 End: 07-17-2021 ambulatory Kameron Mullen Other [employer] Other Start: 07-17-2021 Office outpatient vi sit 25 minutes Kameron Mullen [facility] Start: 07-06-2021 End: 07-06-2021 ambulatory Kameron Mullen Other [employer] Other Start: 07-06-2021 Telephone encounter Kameron Mullen [facility] Start: 07-03-2021 End: 07-03-2021 ambulatory Lennie Newell Other [employer] Other Start: 07-03-2021 Telephone encounter Lennie Sow [facility] Start: 06-14-2021 End: 06-14-2021 ambulatory Jose Martin Ramirez Other [employer] Other Start: 06-14-2021 Telephone encounter Jose Martin Ramirez [facility] Start: 05-25-2021 ([facility] C Vac) [facility] Co vid Vaccine Diane Quintero [facility] Start: 05-25-2021 End: 05-25-2021 ambulatory Diane Quintero Other [employer] Other Start: 02-05-2020 Patient encounter procedure Margaret Wiley on [facility] [facility] Work Phone: Start: 01-06-2020 Patient encounter procedure Margaret Wiley on [facility] [facility] Work Phone: Start: 08-29-2017 End: 08-29-2017 Ambulatory CLARENCE SYED Facility:[facility] Start: 08-15-2017 End: 08-15-2017 Ambulatory CLARENCE SYED Facility:[facility] Start: 08-07-2017 End: 08-08-2017 Ambulatory CLARENCEPATRIC SYED Facility:[facility] Start: 07-15-2017 Ambulatory UNKNOWN PROVIDER [facility]ili [facility] Start: 07-10-2017 End: 07-15-2017 Evaluation and management of inpatient EBONI NOBLE Facility:[facility] Start: 07-10-2017 End: 07-11-2017 Ambulatory UNKNOWN PROVIDER Facility:[facility] Procedures Date Procedure Procedure Detail Performing Clinician Start: 05-19-2024 Complete blood count with white cell differential, automated Margaret Delgado MD Work Phone: Start: 05-19-2024 Comprehensive metabolic panel Margaret odonnell MD Work Phone: Start: 05-19-2024 Computed tomography of abdomen and pelvis with contrast Tiki Petznick DO Work Phone: Start: 05-19-2024 CT of thorax with contrast Tiki Petzn ick DO Work Phone: Start: 05-10-2024 X-ray of right foot Nasim Guillaume MD Work Phone: Start: 04-17-2024 XR CHEST 2V Generic External Data Provider Start: 04-17-2024 ALL CBC WITH AUTO DIFF Generic External Data Provider Start: 04-17-2024 ECG 12-LEAD Generic External Data Provider Start: 02-17-2024 [facility] CBC W/ AUTO DIFF iTki Dockery DO Work Phone: Start: 12-10-2023 Hemoglobin glycosylated a1c Tiki huang DO Work Phone: Start: 11-19-2023 Creatinine blood Margaret Delgado MD Work Phone: Start: 11-19-2023 Computed tomography of abdomen and pelvis with contrast DO Tiki Dockery Work Phone: Start: 10-24-2023 Culture bacterial blood aerobic w/id isolates Tiki Dockery DO Work Phone: Start: 10-24-2023 RESULT Tiki Dockery DO Work Phone: Start: 08-19-2023 SARS-CoV-2, Influenza & RSV (PCR) MD Jacinto Guillaume Work Phone: Start: 08-19-2023 Streptococcus pyogenes antigen assay MD Nasim Guillaume Work Phone: Start: 08-19-2023 Urine culture MD Nasim Guillaume Work Phone: Start: 08-19-2023 Plain chest X-ray MD Nasim Guillaume Work Phone: Start: 08-15-2023 Ultrasonography of limb MD Nasim stanley Work Phone: Start: 05-24-2023 Ultrasonography of limb DO Tiki pittmank Work Phone: Start: 05-02-2023 Plain chest X-ray DO Tiki Dockery Work Phone: Start: 05-01-2023 Plain chest X-ray MD Nasim Guillaume Work Phone: Start: 05-01-2023 SARS-CoV-2, Influenza & RSV (PCR) MD Jacinto Guillaume Work Phone: Start: 05-01-2023 Urine culture DO Tiki Dockery Work Phone: Start: 04-13-2023 SARS-CoV-2, Influenza & RSV (PCR) DO Mejia Lemusick Work Phone: Start: 04-13-2023 Plain chest X-ray MD Nasim Guillaume Work Phone: Start: 04-11-2023 CT of abdomen and pelvis without contrast DO Tiki Cutlerznick Work Phone: Start: 11-19-2022 Computed tomography of abdomen and pelvis with contrast MD Nasim Guillaume Work Phone: Start: 11-19-2022 CT of thorax with contrast MD Nasim stephenson Work Phone: Start: 05-15-2022 Computed tomography of abdomen and pelvis with contrast MD Nasim Guillaume Work Phone: Start: 05-15-2022 CT of thorax with contrast MD Nasim stephenson Work Phone: Start: 11-15-2021 Bacteria identified in Urine by Culture DO [...] Phone: Start: 01-06-2020 Assay of lipase Destiney Josue Start: 01-06-2020 Comprehensive metabolic 2000 panel Destiney Aroraw Start: 01-06-2020 Ct abdomen & pelvis w/contrast material Destiney Aroraw Start: 01-06-2020 Endoscopy Ultrasound Upper Destiney Salas Start: 01-06-2020 ERCP Destiney Salas Start: 01-06-2020 Immunoassay tumor antigen quantitative ca [...] 07-11-2017 COMMUNICATION (OTHER) EBONI NOBLE Start: 07-11-2017 [id number] EBONI NOBLE Start: 07-11-2017 FULL CODE EBONI NOBLE Start: 07-11-2017 Glucose blood reagent strip EBONI WINTER Start: 07-11-2017 Hemoglobin glycosylated a1c EBONI WINTER Start: 07-11-2017 Hepatic function panel EBONI NOBLE Start: 07-11-2017 Hepatitis c antibody EBONI NOBLE Start: 07-11-2017 Iadna hepatitis c quant & reverse director consumer affairs EBONI NOBLE Start: 07-11-2017 INFECTIOUS DISEASE SERVICE REQUEST EBONI NOBLE Start: 07-11-2017 INSERT PERIPHERAL IV ACCESS EBONI WINTER Start: 07-11-2017 IP INFECTIOUS DISEASE CONSULT EBONI ALY Start: 07-11-2017 IP PODIATRY CONSULT EBONI NOBLE Start: 07-11-2017 IP SURGERY VASCULAR CONSULT EBONI WINTER Start: 07-11-2017 IP WOUND NURSE CONSULT EBONI NOBLE Start: 07-11-2017 LIVER SERVICE REQUEST EBONI NBOLE Start: 07-11-2017 MEASURE INTAKE AND OUTPUT EBONI [...] UPDATE TREATMENT TEAM RESIDENT EBONI STEARNS Start: 05-07-2017 Cystoscopy Camposs[facility]an Ortiz Start: 03-11-2015 Amputated toe (finding) TIKI DOCKERY Cystoscopy [facility] Ortiz History of No history of surgery Margaret Crawford Implantable spinal c ord electrical stimulation mechanical systems design engineer (physical object) TAMMY FLEMING Pancreaticoduodenectomy Camposketty Ortiz Urine culture DO Tiki ortiz Work Phone: Plan of Treatment Date Care Activity Detail Author Start: 03-18-2032 Urine microalbumin profile DTaP,Tdap,Td Vaccine (2 - Td or Tdap) [facility] Start: 07-08-2031 Screening for malignant neoplasm of colon [facility] Start: 01-22-2025 Urine screening for protein Diabetes: Urine Protein Screening [facility] Start: 10-07-2024 Urine screening for protein Diabetes: Urine Protein Screening [facility] Start: 05-29-2024 Screening for malignant neoplasm of colon FIT-DNA [facility] Start: 05-10-2024 X-ray of right foot XR foot RT min 3V* [facility] Start: 05-10-2024 XR Foot - right GE 3 Views [facility] Start: 04-21-2024 End: 04-21-2024 Professional / ancillary services management 04/21/2024 9:30 AM EST Ancillary Procedure [facility] [address] [place] [id number] [facility] Start: 04-13-2024 End: 04-13-2024 Patient encounter procedure [facility] Comment on above: Arrived Start: 04-08-2024 End: 04-08-2024 Patient encounter procedure 04/08/2024 9:15 AM EST Office Visit [facility] [address] [place] [place] [phone] Jonathan Pride DPM [address] [place], [place] [id number] [facility] Start: 03-31-2024 End: 03-31-2025 MR Ankle - right WO and W contrast IV MR ankle right w and wo IV contrast Imaging Routine Cellulitis of right heel Ulcer of heel, right, with fat layer exposed ([facility]) Expected: 03/31/2024, Expires: 03/31/2025 [facility] Work Phone: Comment on above: Expected: 03/31/2024, Expires: Start: 03-26-2024 End: 03-26-2024 Patient encounter procedure 03/26/2024 9:00 AM EST Office Visit [facility] [address] [place] [phone] Hernandez Arambula DPM [address] [place] [address] [facility] Start: 03-12-2024 End: 03-12-2024 Patient encounter procedure 03/12/2024 10:15 AM EST Office Visit [facility] [address] [place] [address] Tiki Dockery [address] [place] [address] [facility] Start: 03-11-2024 Hemoglobin A1c measurement Diabetes: Hemoglobin A1C [facility] Start: 02-20-2024 BP Controlled (<130/80) BP Controlled (<130/80) [facility] Start: 02-14-2024 End: 02-13-2025 Amylase [Enzymatic activity/volume] in Serum or Plasma Amylase Lab Routine Diarrhea, unspecified type Expected: 02/14/2024 (Approximate), Expires: 02/13/2025 [facility] Comment on above: Expected: 02/14/2024 (Approximate), Expi res: 02/13/2025 Start: 02-14-2024 End: 02-13-2025 CBC W Auto Differential panel - Blood CBC and differential Lab Routine Diarrhea, unspecified type Expected: 02/14/2024 (Approximate), Expires: 02/13/2025 [facility] Comment on above: Expected: 02/14/2024 (Approximate), Expi res: 02/13/2025 Start: 02-14-2024 End: 02-13-2025 Clostridioides difficile toxin A+B tcdA+tcdB genes [Presence] in Stool by ANN with probe detection Clostridium difficile,EIA Microbiology Routine Diarrhea, unspecified type Expected: 02/14/2024 (Approximate), Expires: 02/13/2025 [facility] Comment on above: Expected: 02/14/2024 (Approximate), Expi res: 02/13/2025 Start: 02-14-2024 End: 02-13-2025 Comprehensive metabolic 2000 panel - Serum or Plasma Comprehensive metabolic panel Lab Routine Diarrhea, unspecified type Expected: 02/14/2024 (Approximate), Expires: 02/13/2025 [facility] Work Phone: Comment on above: Expected: [...] 02/14/2024 8:30 AM EST Office Visit [facility] [address] [place] [address] Tiki Dockery, DO [address] [place] [address] Arrived [facility] 230 Comment on above: Arrived Start: 12-10-2023 Hemoglobin A1c measurement Diabetes: Hemoglobin A1C [facility] Start: 12-10-2023 End: 12-10-2023 Patient encounter procedure 12/10/2023 10:30 AM EDT Office Visit [facility] [address] [place] [phone] Tiki Dockery, DO [address] [place], [place] [phone] [facility] 230 Start: 11-20-2023 Complete blood count Hemoglobin/Hematocrit [facility] Start: 11-20-2023 Creatinine measurement Serum Creatinine [facility] Start: 11-10-2023 Influenza vaccination Influenza Vaccine (#1) [facility] Start: 10-20-2023 SERUM CREATININE SERUM CREATININE [facility] Start: 09-18-2023 [facility] Start: 08-23-2023 Hemoglobin A1c measurement [facility]C [facility] Start: 08-19-2023 Bacteria identified in Urine by Culture [facility] Start: 07-16-2023 PROSTATE CANCER SCREENING DISCUSSION PROSTATE CANCER SCREENING DISCUSSION [facility] Start: 07-16-2023 Prostate specific antigen measurement Prostate Cancer Screening Discussion [facility] Start: 07-06-2023 Medicare Annual Wellness (AWV) Medicare Annual Wellness (AWV) [facility] Start: 06-24-2023 End: 06-24-2023 Patient encounter procedure 06/24/2023 11:30 AM EDT Office Visit [facility] [address] [place] [address] Tiki Dockery DO [address] [place], [place] [phone] [facility] Start: 06-22-2023 Glaucoma screening Diabetes: Retinopathy Screening [facility] Start: 05-23-2023 Hemoglobin A1c measurement Diabetes: Hemoglobin A1C [facility] Start: 05-22-2023 Patient referral [facility] Work Phone: Start: 05-20-2023 End: 05-20-2023 Patient encounter procedure 05/20/2023 10:00 AM EDT Procedure Visit [facility] [address] [place] [address] Hernandez Arambula DPM [address] [place] [address] [facility] Start: 05-02-2023 Plain chest X-ray XR chest 2V* [facility] Start: 05-02-2023 XR Chest 2 Views [facility] Start: 05-01-2023 Bacteria identified in Urine by Culture [facility] Start: 05-01-2023 Urine culture Urine Culture [facility] Start: 04-25-2023 End: 04-25-2024 XR Wrist - left 3 Views [facility] Work Phone: Comment on above: Expected: 04/25/2023 (Approximate), Expi res: 04/25/2024 Start: 04-21-2023 Hemoglobin A1c measurement HbA[facility]C [facility] Start: 04-21-2023 Hemoglobin A1c/Hemoglobin.total in Blood HBA1C [facility] Start: 04-18-2023 End: 04-18-2023 Patient encounter procedure 04/18/2023 11:15 AM EST Office Visit [facility] [address] [place] [phone] Tiki Dockery DO [address] [place] [address] Arrived [facility] 230 Comment on above: Arrived Start: 04-13-2023 Plain chest X-ray XR chest 2V* [facility] Start: 04-13-2023 XR Chest 2 Views [facility] Start: 03-11-2023 Advance Directive Discussion Advance Directive Discussion [facility] Start: 01-08-2023 Pulse volume recorder pneumoplethysmography US arterial pvr rest LE [facility] Start: 01-08-2023 [facility] Start: 01-04-2023 Hemoglobin A1c/Hemoglobin.total in Blood HBA1C [facility] Start: 11-09-2022 Covid-19 Vaccine (2022- season) Covid-19 Vaccine ( season) [facility] Start: 11-09-2022 Influenza vaccination [facility] Start: 06-23-2022 COVID-19 VACCINE (5 - Moderna series) COVID-19 VACCINE (5 - Moderna series) [facility] Start: 03-11-2022 ADVANCE DIRECTIVE DISCUSSION ADVANCE DIRECTIVE DISCUSSION [facility] Start: 03-11-2022 DEPRESSION ASSESSMENT DEPRESSION ASSESSMENT [facility] Start: 02-14-2022 Cancer Ag 19-9 [Units/volume] in Serum or Plasma [facility] Start: 12-12-2021 [facility] Start: 11-15-2021 [facility] Start: 09-06-2021 [facility] Work Phone: Start: 07-20-2021 COVID-19 VACCINE (4 - Booster for Moderna series) COVID-19 VACCINE (4 - Booster for Moderna series) [facility] Start: 09-21-2020 [facility] Start: 09-20-2020 [facility] Start: 09-09-2020 [facility] Start: 08-30-2020 [facility] Start: 07-13-2020 [facility] Start: 07-07-2020 [facility] Start: 06-30-2020 End: 06-30-2020 [facility] Start: 06-30-2020 [facility] Start: 06-28-2020 [facility] Start: 06-22-2020 End: 06-22-2020 [facility] Start: 05-11-2020 [facility] Start: 05-10-2020 [facility] Start: 04-28-2020 End: 04-28-2020 [facility] Start: 04-26-2020 [facility] Start: 2015 RSV Vaccine (1 - 1-dose 60+ series) RSV Vaccine (1 - 1-dose 60+ series) [facility] Start: 05-29-2014 Pneumococcal Vaccine: 65+ (2 - PCV) Pneumococcal Vaccine: 65+ (2 - PCV) [facility] Start: 05-29-2014 Pneumococcal Vaccine: 65+ (2 of 2 - PCV) Pneumococcal Vaccine: 65+ (2 of 2 - PCV) [facility] Start: 09-13-2010 PROSTATE CANCER SCREENING DISCUSSION PROSTATE CANCER SCREENING DISCUSSION [facility] Start: 09-13-2010 Prostate specific antigen measurement Prostate Cancer Screening Discussion [facility] Start: 09-13-2005 SHINGRIX VACCINE (1 of 2) SHINGRIX VACCINE (1 of 2) [facility] Start: 05-03-2005 Complete blood count Hemoglobin/Hematocrit [facility] Start: 05-03-2005 HEMOGLOBIN/HEMATOCRIT HEMOGLOBIN/HEMATOCRIT [facility] Start: 09-13-2000 COLOGUARD (FIT-DNA) COLOGUARD (FIT-DNA) [facility] Start: 09-13-2000 Colonoscopy COLONOSCOPY [facility] Start: 09-13-2000 COLORECTAL CANCER SCREENING COLORECTAL CANCER SCREENING [facility] Start: 09-13-[address] COLONOGRAPHY [facility] Start: 09-13-2000 FECAL OCCULT BLOOD FECAL OCCULT BLOOD [facility] Start: 09-13-2000 Screening for malignant neoplasm of colon [facility] Start: 09-13-2000 SIGMOIDOSCOPY SIGMOIDOSCOPY [facility] Start: 09-13-1985 Zoledronic acid therapy ALPHA-1 ANTITRYPSIN DEFICIENCY SCREENING [facility] Start: 09-13-1974 Urine microalbumin profile DTAP,TDAP,TD (1 - Tdap) [facility] Start: 09-13-1973 ANNUAL PCP TEAM CHRONIC DISEASE VISIT ANNUAL PCP TEAM CHRONIC DISEASE VISIT [facility] Start: 09-13-1973 BP CONTROLLED (<130/80) BP CONTROLLED (<130/80) [facility] Start: 09-13-1973 Hepatitis B surface antibody level LDL CHOLESTEROL [facility] Start: 09-13-1973 SPIROMETRY SPIROMETRY [facility] Start: 09-13-1965 3 comp foot exam completed [facility] Start: 09-13-1965 Diabetic foot examination Diabetic Foot Exam [facility] Start: 09-13-1965 Glaucoma screening Dilated Retinal Exam [facility] Start: 09-13-1965 Hepatitis B screening URINE ALBUMIN:CREATININE RATIO [facility] Start: 09-13-1965 Hepatitis C antibody, confirmatory test DILATED RETINAL EXAM [facility] Start: 09-13-1961 PNEUMOCOCCAL: 65+ (1 - PCV) PNEUMOCOCCAL: 65+ (1 - PCV) [facility] Start: 1955 ABDOMINAL AORTIC ANEURYSM SCREENING ABDOMINAL AORTIC ANEURYSM SCREENING [facility] Start: 1955 Abdominal aortic aneurysm screening Abdominal Aortic Aneurysm Screening [facility] Start: 1955 Screening for malignant neoplasm of colon [facility] Albumin/Globulin ratio [facility] Amylase [Enzymatic activity/volume] in Serum or Plasma [facility] Work Phone: Amylase [Enzymatic activity/volume] in Serum or Plasma [facility] Anion gap measurement [facility] aPTT in Platelet poo r plasma by Coagulation assay [facility] Basophils [#/volume] in Blood by Automated count [facility] Basophils/100 leukoc ytes in Blood by Automated count [facility] Bilirubin measurement, urine [facility] Work Phone: Cancer Ag 19-9 [Unit s/volume] in Serum or Plasma [facility] Work Phone: Cancer Ag 19-9 [Unit s/volume] in Serum or Plasma [facility] Cancer Ag 19-9 [Unit s/volume] in Serum or Plasma [facility] Cancer Ag 19-9 [Unit s/volume] in Serum or Plasma [facility] Cancer Ag 19-9 [Unit s/volume] in Serum or Plasma [facility] Cancer Ag 19-9 [Unit s/volume] in Serum or Plasma [facility] Cancer Ag 19-9 [Unit s/volume] in Serum or Plasma [facility] Cancer Ag 19-9 [Unit s/volume] in Serum or Plasma [facility] Cancer Ag 19-9 [Unit s/volume] in Serum or Plasma [facility] Cancer Ag 19-9 [Unit s/volume] in Serum or Plasma [facility] Cancer Ag 19-9 [Unit s/volume] in Serum or Plasma [facility] Color of Urine [facility] Work Phone: Comprehensive metabo lic 1999 panel - Serum or Plasma [facility] Work Phone: Comprehensive metabo lic 1999 panel - Serum or Plasma [facility] Comprehensive metabo lic 1999 panel - Serum or Plasma [facility] Comprehensive metabo lic 1999 panel - Serum or Plasma [facility] Comprehensive metabo lic 1999 panel - Serum or Plasma [facility] Comprehensive metabo lic 1999 panel - Serum or Plasma [facility] Comprehensive metabo lic 1999 panel - Serum or Plasma [facility] Comprehensive metabo lic 1999 panel - Serum or Plasma [facility] Comprehensive metabo lic 1999 panel - Serum or Plasma [facility] Comprehensive metabo lic 1999 panel - Serum or Plasma [facility] CT Abdomen and Pelvi s W contrast IV [facility] Work Phone: CT Abdomen and Pelvi s W contrast IV [facility] CT Abdomen and Pelvi s W contrast IV [facility] CT Abdomen and Pelvi s W contrast IV [facility] CT Abdomen and Pelvi s W contrast IV [facility] CT Abdomen and Pelvi s W contrast IV [facility] CT Abdomen and Pelvi s W contrast IV [facility] CT Chest W contrast IV [facility] Work Phone: CT Chest W contrast IV [facility] CT Chest W contrast IV [facility] CT Chest W contrast IV [facility] CT Chest W contrast IV [facility] CT Chest W contrast IV [facility] Detection of hemoglobin [facility] Work Phone: Eosinophils/100 leuk ocytes in Blood by Automated count [facility] Erythrocyte distribu tion width [Ratio] by Automated count [facility] Erythrocytes [#/volu me] in Blood [facility] Erythropoietin (EPO) [Units/volume] in Serum or Plasma [facility] Globulin [Mass/volum e] in Serum [facility] Glucose [Mass/volume ] in Urine by Test strip [facility] Work Phone: Hematocrit [Volume F raction] of Blood [facility] Hemoglobin [Mass/vol ume] in Blood [facility] INR in Platelet poor plasma by Coagulation assay [facility] Leukocytes [#/volume ] corrected for nucleated erythrocytes in Blood by Automated coun [facility] Leukocytes [#/volume] in Blood [facility] Lipase measurement [facility] Work Phone: Lipase measurement [facility] Lymphocytes [#/volum e] in Blood by Automated count [facility] Lymphocytes/100 leuk ocytes in Blood by Automated count [facility] Magnesium measurement [facility] Work Phone: Magnesium measurement [facility] MCH [Entitic mass] b y Automated count [facility] MCHC [Mass/volume] b y Automated count [facility] MCV [Entitic volume] by Automated count [facility] Measurement of [place] in urine using dipstick [facility] Work Phone: Monocytes [#/volume] in Blood by Automated count [facility] Monocytes/100 leukoc ytes in Blood by Automated count [facility] Neutrophils [#/volum e] in Blood by Automated count [facility] Neutrophils/100 leuk ocytes in Blood by Automated count [facility] Nucleated erythrocyt es [Presence] in Blood by Automated count [facility] Patient Education [facility] Work Phone: Patient referral [facility] Work Phone: Platelet mean volume [Entitic volume] in Blood by Automated count [facility] Platelets [#/volume] in Blood [facility] Protein measurement, urine [facility] Work Phone: Prothrombin time (PT) [facility] Renal function 1999 panel - Serum or Plasma [facility] Renal function 1999 panel - Serum or Plasma [facility] Urinalysis, specific gravity measurement [facility] Work Phone: Urine dipstick for nitrite [facility] Work Phone: Urine dipstick for s pecific gravity [facility] Work Phone: Urine pH test [facility] Work Phone: Urobilinogen concent ration, test strip measurement [facility] Work Phone: [facility] Immunizations Immunization Date Immunization Notes Care Provider Fa negar 01-14-2024 influenza virus vaccine, unspecified formulation Tiki Petznick DO Work Phone: [facility] 01-11-2024 Seasonal trivalent influenza vaccine, adjuvanted, preservative free Tiki Petznick DO Work Phone: [facility] 03-22-2023 Pneumococcal Conjuga te PCV 20 Tiki Petznick DO Work Phone: [facility] 02-08-2023 Influenza, injectabl e, Madin Steph Canine Kidney, preservative free, quadrivalent Tiki Petznick DO Work Phone: [facility] 02-08-2023 influenza virus vaccine, unspecified formulation Margaret Delgado MD Work Phone: [facility] 03-18-2022 tetanus toxoid, redu ken diphtheria toxoid, and acellular pertussis vaccine, adsorbed TAMMY LONNIE [facility] 02-22-2022 Moderna Bivalent Booster Vaccination Tiki Petznick DO Work Phone: [facility] 02-20-2022 Influenza, injectabl e, Madin [place] Canine Kidney, preservative free, quadrivalent Tiki Petznick DO Work Phone: [facility] 05-25-2021 COVID-19 Moderna Diane Mohitmarylou Other [facility] 12-26-2020 influenza, injectabl e, quadrivalent, contains preservative Tiki Petznick DO Work Phone: [facility] 10-12-2020 COVID-19 mRNA-1273 (Moderna) DO Tiki Petznick Work Phone: [facility] 09-12-2020 COVID-19 mRNA-1273 (Moderna) DO Tiki Petznick Work Phone: [facility] 04-11-2016 tetanus toxoid, redu ken diphtheria toxoid, and acellular pertussis vaccine, adsorbed Tiki Petznick DO Work Phone: [facility] 01-15-2016 influenza, seasonal, injectable, preservative free Tiki Dockery DO Work Phone: [facility] 05-29-2013 pneumococcal polysaccharide vaccine, 23 valent Tiki Petznick DO Work Phone: [facility] 05-12-2004 hepatitis B vaccine, adult dosage Pacc 2 Work Phone: [facility] 10-30-2002 hepatitis A vaccine, unspecified formulation Pacc 2 Work Phone: [facility] Work Phone: 10-30-2002 hepatitis B vaccine, adult dosage Pacc 2 Work Phone: [facility] Work Phone: 03-19-2002 hepatitis A vaccine, unspecified formulation Pacc 2 Work Phone: [facility] Work Phone: 03-19-2002 hepatitis B vaccine, adult dosage Pacc 2 Work Phone: [facility] Work Phone: 01-30-2002 hepatitis B vaccine, adult dosage Pacc 2 Work Phone: [facility] NEGATED: Highlighted row has not occurred!01-01-2020 influenza, seasonal, injectable TIKI DOCKERY [facility] Payers Date Payer Category Payer Medicare (Managed Care) [facility] [id number] 2023 Unknown [id number] 2022 Unknown [id number] 2022 Self-pay [id number] 2022 Medicare [id number] [id number]. [id number] 2017 Unknown 1959 Medicaid [id number] 1955 Unknown [id number] 2.16.840.1.813952.3.579.2. 356 1955 Unknown [id number] 2.16.840.1.264177.3.579.2. 72 1955 Unknown [id number] 2.16.840.1.303779.3.579.2. 72 1955 Unknown [id number] 2.16.840.1.459575.3.579.2. 72 1955 Unknown [id number] 2.16.840.1.744249.3.579.2. 72 1955 Unknown [id number] 2.16.840.1.924843.3.579.2. 72 1955 Unknown [id number] 2.16.840.1.312325.3.579.2. 72 1955 Unknown [id number] 2.16.840.1.026021.3.579.2. 72 1955 Unknown [id number] 2.16.840.1.702326.3.579.2. 72 1955 Unknown [id number] 2.16.840.1.667214.3.579.2. 72 1955 Unknown [id number] 2.16.840.1.394384.3.579.2. 72 1955 Unknown [id number] 2.16.840.1.585995.3.579.2. 72 1955 Unknown [id number] 2.16.840.1.285391.3.579.2. 72 1955 Unknown [id number] 2.16.840.1.447663.3.579.2. 1955 Unknown [id number] 2.16.840.1.351315.3.579.2. 1955 Unknown [id number] 2.16.840.1.263788.3.579.2. 1955 Unknown [id number] 2.16.840.1.159688.3.579.2. 1955 Unknown [id number] 2.16.840.1.971992.3.579.2 1955 Unknown [id number] 2.16.840.1.761769.3.579.2 1955 Unknown [id number] 2.16840.1.566171.3.579.2 1955 Unknown [id number] 2.16.840.1.477550.3.579.2 1955 Unknown [id number] 2.16.840.1.742256.3.579.2 1955 Unknown [id number] 2.16.840.1.182885.3.579.2 1955 Unknown [id number] 2.16.840.1.219189.3.579.2 1955 Unknown [id number] 2.16.840.1.622695.3.579.2 1955 Unknown [id number] 2.16.840.1.955359.3.579.2 1955 Unknown [id number] 2.16.840.1.479533.3.579.2. 1955 Unknown [id number] 2.16.840.1.334219.3.579.2 1955 Unknown [id number] 2.16.840.1.743748.3.579.2. 727 1955 Unknown [id number] 2.16.840.1.175574.3.579.2. 1258 1955 Unknown [id number] 2.16.840.1.651878.3.579.2. 1258 1955 Unknown [id number] 2.16.840.1.936129.3.579.2. 1258 1955 Unknown [id number] 2.16.840.1.102525.3.579.2. 1258 1955 Unknown [id number] 2.16.840.1.297975.3.579.2. 1258 1955 Unknown [id number] 2.16840.1.991467.3.579.2. 1258 1955 Unknown [id number] 2.16.840.1.191883.3.579.2. 1258 1955 Unknown [id number] 2.16.840.1.788732.3.579.2. 1258 1955 Unknown [id number] 2.16.840.1.052566.3.579.2. 1258 1955 Unknown [id number] 2.16840.1.610866.3.579.2. 1258 1955 Unknown [id number] 2.16.840.1.999870.3.579.2. 1258 1955 Unknown [id number] 2.16.840.1.806736.3.579.2. 1955 Unknown [id number] 2.16.840.1.748731.3.579.2. 1955 Unknown [id number] 2.16.840.1.509441.3.579.2. 72 1955 Unknown [id number] 2.16.840.1.047450.3.579.2. 727 1955 Unknown [id number] 2.16.840.1.281660.3.579.2. 72 1955 Unknown [id number] 2.16.840.1.835220.3.579.2. 72 1955 Unknown [id number] 2.16.840.1.583145.3.579.2. 1955 Unknown [id number] 2..840.1.598210.3.579.2. 1955 Unknown [id number] 2.0.1.428781.3.579.2. 1955 Unknown [id number] 2.0.1.015936.3.579.2. 1955 Unknown [id number] 2.0.1.229189.3.579.2 Medicare [id number] .840.1.209406.19 Medicare [id number] 04.26.830.1.068092.19 Medicare [place] MCR [id number] 401 [id number] Private Health Insurance [facility] PF [id number] MMO [id number] Unknown HCAP/HFA/FAP Active [id number] Unknown [id number] 2.840.1.942222.3.579.2. 531 Unknown [id number] 2.840.1.128176.3.579.2. 531 Unknown [id number] 2.16840.1.427158.3.579.2. 531 Unknown [id number] 2.16.840.1.310671.3.579.2. 531 Unknown [id number] 2.16.840.1.945554.3.579.2. 531 Unknown [id number] 2.16.840.1.057822.3.579.2. 531 Social History Date Type Detail Facility Assertion Tobacco smoking consumption unknown (finding) [facility] Work Phone: Start: 08-13-2022 End: 06-21-2023 Sex Assigned At [facility] Start: 08-11-2021 End: 05-09-2024 Tobacco smoking status NHIS Smoker (finding) [facility] Start: 1955 Sex Assigned At Male [facility] Start: 01-12-2020 End: 01-06-2024 Tobacco smoking status Heavy tobacco smoker (finding) [facility] Start: 1955 Sex Assigned At Not on file [facility] Start: 03-11-1965 End: 09-09-2023 Tobacco smoking status MOIS Smokes tobacco daily [facility] Start: 03-11-1965 History of tobacco use Cigarette Smo ker [facility] Start: 08-13-2022 End: 06-21-2023 Cigarettes smoked current (pack per day) - Reported 0.5 [facility] Start: 08-13-2022 Alcohol intake Current drinke r of alcohol (finding) [facility] Start: 10-19-2022 End: 09-09-2023 Tobacco use and exposure Smokeless tobacco non-user [facility] Start: 10-19-2022 End: 05-14-2023 Alcohol intake Ex-drinker (finding) [facility] Start: 04-01-2023 End: 04-13-2024 Alcohol intake Lifetime non-drinker (finding) [facility] Do you belong to any clubs or organizations such as methodist groups, unions, fraternal or athletic groups, or [...] on time? Yes [facility] Start: 04-29-2024 End: 05-21-2024 Sex Male (finding) [facility] NEGATED: Highlighted row - - [facility] Work Phone: Medical Equipment Procedure Code Equipment Code Equipment Origin al Text Equipment Identifier Dates Insertion of central venous catheter (CVC) with subcutaneous port for chemotherapy Vascular port/catheter [id number] FDA Start: 04-06-2020 ERCP Unknown 11/09 Non Biological Unknown FDA Start: 11-10-2019 Lens Iol 1pc [facility] [id number] - [id number] Start: 11-04-2009 Lens Iol 1pc [facility] Cj00xg97.5 - [id number] Start: 11-11-2009 Kit Injex Silico ne .157mm Accessory Bumpy Flexible Compression-Fit [place] - [id number] Start: 10-30-2022 Comment on above: Description: This is a kit randle from [employer] and includes [id number] and [id number] for $200.00. Nrstm Imp Intlls Snsr Mri - [id number] Start: 11-13-2022 Lead Vectris 5mm 60cm Neurostimulator 1x8 Electrode Compact Mri - [id number] Start: 11-13-2022 Envelope Tyrx Me dium Polyarylate Minocycline Rifampin 2.7x2.5in Absorbable - [id number] Start: 11-13-2022 ERCP Unknown 11/09 Non Biological Unknown FDA Start: 11-10-2019 [id number] Start: 07-17-2022 Lead 5mm Neurostimulator 1x8 Electrode Kit - [id number] Start: 10-30-2022 Comment on above: Description: This is a kit randle from [employer] and includes [id number] and [id number] for $200.00. Lead Vectris 5mm 60cm Neurostimulator 1x8 Electrode Compact Mri - [id number] Start: 11-13-2022 ERCP Unknown 11/09 Non [...] /State Functional Status Date Assessment Result Facility 05-22-2024 Functional Status N/A [facility] 05-03-2024 Functional Status N/A [facility] 04-26-2024 Functional Status N/A [facility] 04-24-2024 Functional Status N/A [facility] 03-24-2024 Functional Status N/A [facility] 02-10-2024 Functional Status N/A [facility] 01-06-2024 Functional Status N/A [facility] 10-05-2023 Functional Status N/A [facility] 10-05-2023 Functional Status [facility] 09-19-2023 Functional Status No [facility] 09-19-2023 Functional Status [facility] NEGATED: Highlighted row Functional performance Functional status health issues are not documented Disease [facility] Work Phone: Mental Status Date Assessment Result Facility NEGATED: Highlighted row Cognitive function [Interpretation] Cognitive status health issues are not documented Disease [facility] Work Phone: Clinical Notes 02-15-2020 to 05-22-2024 Note Date & Type Note Facility 05-22-2024 Hospital Discharg e instructions Patient Education 05/22/2024 11:04:31 Opioid Withdrawal Opioid Withdrawal Opioids are powerful [...] to see a mental health professional or network desktop support specialist. How is this treated? Treatment for [...] withdrawal. Follow these instructions at home: Take nnpa-voo-zzzltdh and prescription medicines only as told by [...] the National Suicide Prevention Lifeline at or 866 in the [place] This is open 24 hours a day in the [place] Text the Crisis Text Line at 208568 (in the [place] Summary Opioid withdrawal is [...] provider. Document Revised: 09/20/2021 Document Reviewed: 06/07/2021 [employer] Patient Education 2023 Standardized Safety. Follow Up Care 05/22/2024 09:12:41 With:TIKI DOCKERY Address: [address] , [place] [phone] Business (1) When:05/25/2024 10:44:46 [facility] 05-22-2024 Note ED Patient Education Note Mental and [...] to see a mental health professional or network desktop support specialist. How is this treated? Treatment for [...] Follow these instructions at home: ??? Take jnig-eds-ypytkzp and prescription medicines only as told by [...] breath, or fever. (more content not included)... [facility] 05-03-2024 Evaluation + Plan note Extrac lamont from: Title:ED Note Author:Chelsea Ortiz DO Date :05/03/24 Chronic leg pain (M79.606: P ain in leg, unspecified) Other chronic pain (G89.29: Other chronic pain) Orders: morphine, 4 mg = 1 mL, Injection, IntraMuscular, Once, Stop date 05/03/24 4:25:00 EST, STAT, Start date 05/03/24 4:25:00 EST, 05/03/24 4:25:00 EST ondansetron, 4 mg = 1 tab(s), Tab-Dis, Oral, Once, Stop date 05/03/24 4:25:00 EST, STAT, Start date 05/03/24 4:25:00 EST, 05/03/24 4:25:00 EST Future Appointments Appointment Date:05/15/2024 03:00:00 PM Scheduled Provider: Location:[facility] Appointment Type:Urology CALL PAT FT Appointment Date:05/19/2024 09:00:00 AM Scheduled Provider: Location:[facility] Appointment Type:Urology FT [facility] 02-23-2025 Hospital Discharge instructions Patient Education 05/03/2024 04:55:23 Peripheral Neuropathy Peripheral Neuropathy Peripheral neuropathy is a type of nerve damage. It affects nerves that carry signals between the spinal cord and the arms, legs, and the rest of the body (peripheral nerves). It does not affect nerves in the spinal cord or brain. In peripheral neuropathy, one nerve or a group of nerves may be damaged. Peripheral neuropathy is a broad category that includes many specific nerve disorders, like diabetic neuropathy, hereditary neuropathy, and carpal tunnel syndrome. What are the causes? This condition may be caused by: Certain diseases, such as: ?Diabetes. This is the most common cause of peripheral neuropathy. ?Autoimmune diseases, such as rheumatoid arthritis and systemic lupus erythematosus. ?Nerve diseases that are passed from parent to child (inherited). ?Kidney disease. ?Thyroid disease. Other causes may include: ?Nerve injury. ?Pressure or stress on a nerve that lasts a long time. ?Lack (deficiency) of B vitamins. This can result from alcoholism, poor diet, or a restricted diet. ?Infections. ?Some medicines, such as cancer medicines (chemotherapy). ?Poisonous (toxic) substances, such as lead and mercury. ?Too little blood flowing to the legs. In some cases, the cause of this condition is not known. What are the signs or symptoms? Symptoms of this condition depend on which of your nerves is damaged. Symptoms in the legs, hands, and arms can include: ?Loss of feeling (numbness) in the feet, hands, or both. ?Tingling in the feet, hands, or both. ?Burning pain. ?Very sensitive skin. ?Weakness. ?Not being able to move a part of the body (paralysis). ?Clumsiness or poor coordination. ?Muscle twitching. ?Loss of balance. Symptoms in other parts of the body can include: ?Not being able to control your bladder. ?Feeling dizzy. ?Sexual problems. How is this diagnosed? Diagnosing and finding the cause of peripheral neuropathy can be difficult. Your health care provider will take your medical history and do a physical exam. A neurological exam will also be done. This involves checking things that are affected by your brain, spinal cord, and nerves (nervous system). For example, your health care provider will check your reflexes, how you move, and what you can feel. You may have other tests, such as: Blood tests. Electromyogram (EMG) and nerve conduction tests. These tests check nerve function and how well the nerves are controlling the muscles. Imaging tests, such as a CT scan or MRI, to rule out other causes of your symptoms. Removing a small piece of nerve to be examined in a lab (nerve biopsy). Removing and examining a small amount of the fluid that surrounds the brain and spinal cord (lumbarpuncture). How is this treated? Treatment for this condition may involve: Treating the underlying cause of the neuropathy, such as diabetes, kidney disease, or vitamin deficiencies. Stopping medicines that can cause neuropathy, such as chemotherapy. Medicine to help relieve pain. Medicines may include: ?Prescription or houy-nxz-rvmndtc pain medicine. ?Anti-seizure medicine. ?Antidepressants. ?Pain-relieving patches that are applied to painful areas of skin. Surgery to relieve pressure on a nerve or to destroy a nerve that is causing pain. Physical therapy to help improve movement and balance. Devices to help you move around (assistive devices). Follow these instructions at home: Medicines Take xskk-zaq-vaeconc and prescription medicines only as told by your health care provider. Do not take any other medicines without first asking your health care provider. Ask your health care provider if the medicine prescribed to you requires you to avoid driving or using machinery. Lifestyle Do not use any products that contain nicotine or tobacco. These products include cigarettes, chewing tobacco, and vaping devices, such as e-cigarettes. Smoking keeps blood from reaching damaged nerves. If you need help quitting, ask your health care provider. Avoid or limit alcohol. Too much alcohol can cause a vitamin B deficiency, and vitamin B is needed for healthy nerves. Eat a healthy diet. This includes: ?Eating foods that are high in fiber, such as beans, whole grains, and fresh fruits and vegetables. ?Limiting foods that are high in fat and processed sugars, such as fried or sweet foods. General instructions If you have diabetes, work closely with your health care provider to keep your blood sugar under control. If you have numbness in your feet: ?Check every day for signs of injury or infection. Watch for redness, warmth, and swelling. ?Wear padded socks and comfortable shoes. These help protect your feet. Develop a good support system. Living with peripheral neuropathy can be stressful. Consider talkingwith a mental health specialist or joining a support group. Use assistive devices and attend physical therapy as told by your health care provider. This may include using a walker or a cane. Keep all follow-up visits. This is important. Where to find more information National [place] of Neurological Disorders: www.ninds.nih.gov Contact a health care provider if: You have new signs or symptoms of peripheral neuropathy. You are struggling emotionally from dealing with peripheral neuropathy. Your pain is not well controlled. Get help right away if: You have an injury or infection that is not healing normally. You develop new weakness in an arm or leg. You have fallen or do so frequently. Summary Peripheral neuropathy is when the nerves in the arms or legs are damaged, resulting in numbness, weakness, or pain. There are many causes of peripheral neuropathy, including diabetes, pinched nerves, vitamin deficiencies, autoimmune disease, and hereditary conditions. Diagnosing and finding the cause of peripheral neuropathy can be difficult. Your health care provider will take your medical history, do a physical exam, and do tests, including blood tests and nervefunction tests. Treatment involves treating the underlying cause of the neuropathy and taking medicines to help control pain. Physical therapy and assistive devices may also help. This information is not intended to replace advice given to you by your health care provider. Make sure you discuss any questions you have with your health care provider. Document Revised: 10/31/2021 Document Reviewed: 10/31/2021 [employer] Patient Education 2023 Standardized Safety. Follow Up Care 05/03/2024 04:04:49 With:TIKI DOCKERY Address: [address] , [address] [place] [id number]- Business (1) When:05/06/2024 Comments:Follow-up with your pain management doctor and primary care doctor for further evaluation and management. [facility] 02-23-2025 NoteED Patient Education Note Neurology Peripheral Neuropathy Peripheral neuropathy is a type of nerve damage. It affects nerves that carry signals between the spinal cord and the arms, legs, and the rest of the body (peripheral nerves). It does not affect nerves in the spinal cord or brain. In peripheral neuropathy, one nerve or a group of nerves may be damaged. Peripheral neuropathy is a broad category that includes many specific nerve disorders, like diabetic neuropathy, hereditary neuropathy, and carpal tunnel syndrome. What are the causes? This condition may be caused by: ??? Certain diseases, such as: ? Diabetes. This is the most common cause of peripheral neuropathy. ? Autoimmune diseases, such as rheumatoid arthritis and systemic lupus erythematosus. ? Nerve diseases that are passed from parent to child (inherited). ? Kidney disease. ? Thyroid disease. ??? Other causes may include: ? Nerve injury. ? Pressure or stress on a nerve that lasts a long time. ? Lack (deficiency) of B vitamins. This can result from alcoholism, poor diet, or a restricted diet. ? Infections. ? Some medicines, such as cancer medicines (chemotherapy). ? Poisonous (toxic) substances, such as lead and mercury. ? Too little blood flowing to the legs. In some cases, the cause of this condition is not known. What are the signs or symptoms? Symptoms of this condition depend on which of your nerves is damaged. ??? Symptoms in the legs, hands, and arms can include: ? Loss of feeling (numbness) in the feet, hands, or both. ? Tingling in the feet, hands, or both. ? Burning pain. ? Very sensitive skin. ? Weakness. ? Not being able to move a part of the body (paralysis). ? Clumsiness or poor coordination. ? Muscle twitching. ? Loss of balance. ??? Symptoms in other parts of the body can include: ? Not being able to control your bladder. ? Feeling dizzy. ? Sexual problems. How is this diagnosed? Diagnosing and finding the cause of peripheral neuropathy can be difficult. Your health care provider will take your medical history and do a physical exam. A neurological exam will also be done. This involves checking things that are affected by your brain, spinal cord, and nerves (nervous system). For example, your health care provider will check your reflexes, how you move, and what you can feel. You may have other tests, such as: ??? Blood tests. ??? Electromyogram (EMG) and nerve conduction tests. These tests check nerve function and how well the nerves are controlling the muscles. ??? Imaging tests, such as a CT scan or MRI, to rule out other causes of your symptoms. ??? Removing a small piece of nerve to be examined in a lab (nerve biopsy). ??? Removing and examining a small amount of the fluid that surrounds the brain and spinal cord (lumbar puncture). How is this treated? Treatment for this condition may involve: ??? Treating the underlying cause of the neuropathy, such as diabetes, kidney disease, or vitamin deficiencies. ??? Stopping medicines that can cause neuropathy, such as chemotherapy. ??? Medicine to help relieve pain. Medicines may include: ? Prescription or onxc-igr-yvyiwgj pain medicine. ? Anti-seizure medicine. ? Antidepressants. ? Pain-relieving patches that are applied to painful areas of skin. ??? Surgery to relieve pressure on a nerve or to destroy a nerve that is causing pain. ??? Physical therapy to help improve movement and balance. ??? Devices to help you move around (assistive devices). Follow these instructions at home: Medicines ??? Take loqt-waq-uastglb and prescription medicines only as told by your health care provider. Do not take any other medicines without first asking your health care provider. ??? Ask your health care provider if the medicine prescribed to you requires you to avoid driving or using machinery. Lifestyle ??? Do not use any products that contain nicotine or tobacco. These products include cigarettes, chewing tobacco, and vaping devices, such as e-cigarettes. Smoking keeps blood from reaching damaged nerves. If you need help quitting, ask your health care provider. ??? Avoid or limit alcohol. Too much alcohol can cause a vitamin B deficiency, and vitamin B is needed for healthy nerves. ??? Eat a healthy diet. This includes: ? Eating foods that are high in fiber, such as beans, whole grains, and fresh fruits and vegetables. ? Limiting foods that are high in fat and processed sugars, such as fried or sweet foods. General instructions ??? If you have diabetes, work closely with your health care provider to keep your blood sugar under control. ??? If you have numbness in your feet: ? Check every day for signs of injury or infection. Watch for redness, warmth, and swelling. ? Wear padded socks and comfortable shoes. These help protect your feet. ??? Develop a good support system. Living wi (more content not included)... 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 Diabetes / SNOMED CT [id number] / Confirmed HTN (hypertension) / SNOMED CT [id number] / Confirmed Hepatitis C / SNOMED CT 52989256 / Confirmed Hepatitis C / SNOMED CT 45012322 / Confirmed Diabetes / SNOMED CT 351988476 / Confirmed Hyperlipidemia / SNOMED CT 78594225 / Confirmed Depression with anxiety / SNOMED CT 157946031 / Confirmed DM2 (diabetes mellitus, type 2) / SNOMED CT 706546740 / Confirmed History of pancreatic cancer / SNOMED CT 3580130045 / Confirmed CKD (chronic kidney disease), stage III / SNOMED CT 1192488909 / Confirmed Smoker / ICD-10-CM F17.200 / Confirmed Clostridium difficile diarrhea / SNOMED CT 8408397874 / Confirmed Problem added secondary to positive C-Diff lab result. Histories Past Medical History: Active Diabetes ([id number]) HTN (hypertension) ([id number]) Hepatitis C (82079790) Family History: Primary malignant neoplasm of lung Brother Pancreatic cancer Father Mother Procedure history: Amputated toe ([id number]) on 03/11/2015 at 59 Years. 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 Social History Social & Psychosocial Habits Alcohol [...] 3-6 cigarettes a day - 05/10/2016 08:35 Alpa Shaw RN 09/19/2023 Tobacco Use: 10 or more cigarettes (1/ Type: Cigarettes Comment: 03/12 ppd - 04/30/2017 21:41 Roxy Brand RN 09/19/2023 Tobacco Use: 10 or more cigarettes (1/ Comment: 1 pack every week - 07/12/2018 09:31 - Roxy Rizo RN 09/19/2023 Tobacco Use: 10 or more cigarettes (1/ Type: Cigarettes Ready to change: No Concerns abo (more content not included)...[facility]Result Comment: Electronically Signed By: Asha Keith.br\Date and Time Signed: 05/01/24 09:51 [id number] Hospital Discharge instructions Patient Education 04/26/2024 13:55:54 Opioid Withdrawal [...] longer period of time. Symptoms can occur [id number] hours of stopping or reducing the amount you take, and they usually resolve over the next 10 days or so. There are also medicines that block the effects of opioids (opioid antagonists), such as naltrexoneor naloxone, and partial agonists such as buprenorphine. [...] to see a mental health professional or network desktop support specialist. How is this treated? Treatment for [...] of this medicine over time to reduce orprevent withdrawal symptoms. ?Other medicines that may decrease the effects of withdrawal. Follow these instructions at home: Take upzo-rxv-qoqstnv and prescription medicines only as told by your health care provider. Always check with your health care provider before starting any new medicines. Keep all follow-up visits. This is important. Follow-up visits include mental health and counselingvisits. Contact a health care provider if: You [...] right away. Call your local emergency services (011 in the [place] Do not drive yourself to the hospital. If you ever feel like you may hurt yourself or others, or have thoughts about taking your own life,get help right away. Go to your nearest emergency department or: Call your local emergency services (483 in the [place] Call a suicide crisis helpline, such as the National Suicide Prevention Lifeline at or 046 in the [place] This is open 24 hours a day in the [place] Text the Crisis Text Line at 765731 (in the [place] Summary Opioid withdrawal is [...] provider. Document Revised: 09/20/2021 Document Reviewed: 06/07/2021 [employer] Patient Education 2023 Standardized Safety. [facility] 02-16-2025 NoteED Patient Education Note Mental and Behavioral Health [...] the amount you take. The worst symptoms (peakwithdrawal) occur in 24?48 hours. Symptoms should diminish over the next 3 to 5 days. ??? Long-acting opioids, such as methadone, work for a longer period of time. Symptoms can occur within 30 hours of stopping or reducing the amount you take, and they usually resolve over the next 10days or so. There are also medicines that block the effects of opioids (opioid antagonists), such as naltrexoneor naloxone, and partial agonists such as buprenorphine. [...] to see a mental health professional or network desktop support specialist. How is this treated? Treatment for [...] methadone or buprenorphine, to replace the opioid thatyou have been taking. You may be asked to take less and less of this medicine over time to reduce or prevent withdrawal symptoms. ? Other medicines that may decrease the effects of withdrawal. Follow these instructions at home: ??? Take tlef-ocv-uwtsyfy and prescription medicines only as told by [...] of breath, or fever. (more content not included)...[facility]02-16-2025 NoteED Note-Nursing pt put call light on - stated he was leaving now. provider informed. education provided. Pt stated port does not need heparin flushed. pt agitated.[facility]02-14-2025 Hospital Discharge instructions Patient Education 04/24/2024 15:01:48 Opioid Withdrawal [...] longer period of time. Symptoms can occur [id number] hours of stopping or reducing the amount you take, and they usually resolve over the next 10 days or so. There are also medicines that block the effects of opioids (opioid antagonists), such as naltrexoneor naloxone, and partial agonists such as buprenorphine. [...] to see a mental health professional or network desktop support specialist. How is this treated? Treatment for [...] of this medicine over time to reduce orprevent withdrawal symptoms. ?Other medicines that may decrease the effects of withdrawal. Follow these instructions at home: Take htdu-qbd-wljhtyy and prescription medicines only as told by your health care provider. Always check with your health care provider before starting any new medicines. Keep all follow-up visits. This is important. Follow-up visits include mental health and counselingvisits. Contact a health care provider if: You [...] right away. Call your local emergency services (058 in the [place] Do not drive yourself to the hospital. If you ever feel like you may hurt yourself or others, or have thoughts about taking your own life,get help right away. Go to your nearest emergency department or: Call your local emergency services (971 in the [place] Call a suicide crisis helpline, such as the National Suicide Prevention Lifeline at or 915 in the [place] This is open 24 hours a day in the [place] Text the Crisis Text Line at 514724 (in the [place] Summary Opioid withdrawal is [...] provider. Document Revised: 09/20/2021 Document Reviewed: 06/07/2021 [employer] Patient Education 2023 Standardized Safety. Follow Up Care 04/24/2024 13:08:44 With:Your pain management physician Address:Unknown When:04/27/2024 15:01:44 With:TIKI DOCKERY Address: [address] , [place] [id number]- [facility] (1) When:Within 3 Day(s) [facility] 02-14-2025 NoteED Patient Education Note Mental and Behavioral Health [...] the amount you take. The worst symptoms (peakwithdrawal) occur in 24?48 hours. Symptoms should diminish over the next 3 to 5 days. ??? Long-acting opioids, such as methadone, work for a longer period of time. Symptoms can occur within 30 hours of stopping or reducing the amount you take, and they usually resolve over the next 10days or so. There are also medicines that block the effects of opioids (opioid antagonists), such as naltrexoneor naloxone, and partial agonists such as buprenorphine. [...] to see a mental health professional or network desktop support specialist. How is this treated? Treatment for [...] methadone or buprenorphine, to replace the opioid thatyou have been taking. You may be asked to take less and less of this medicine over time to reduce or prevent withdrawal symptoms. ? Other medicines that may decrease the effects of withdrawal. Follow these instructions at home: ??? Take xdyn-czw-dgoucic and prescription medicines only as told by [...] of breath, or fever. (more content not included)...[facility]02-14-2025 Evaluation + Plan note Extracted from: Title:ED Note Author:Mark Alves DO Date:04/11 07/03 Opioid withdrawal (F11.93: O pioid use, unspecified with withdrawal) Orders: HYDROmorphone, 1 mg = 1 mL, Injection, IntraMuscular, Once, Stop date 04/24/24 14:57:00 EST, STAT, Start date 04/24/24 14:57:00 EST, 04/24/24 14:57:00 EST ondansetron, 4 mg = 1 tab(s), Oral, q6hr, X 3 day(s), # 10 tab(s), Refills(s) 0, Pharmacy: [facility] #[id number], 188, cm, 04/24/24 13:55:00 EST, Height/Length Dosing, 87.6, kg, 04/24/24 13:55:00 EST, Weight Dosing promethazine, 25 mg = 1 mL, Injection, IntraMuscular, Once, Stop date 04/24/24 14:57:00 EST, STAT, Start date 04/24/24 14:57:00 EST CBC w/ Auto Diff Comprehensive Metabolic Panel eGFR Ethanol Level Lipase Level PT & PTT Future Appointments Appointment Date:05/04/2024 08:30:00 AM Scheduled Provider: Location:[facility] Appointment Type:URO Nurse Visit Appointment Date:05/29/2024 08:15:00 AM Scheduled Provider:Clarence SYED MD Location:[facility] Appointment Type:URO Office Visit [facility] [id number] History of Present illness Narrative* Hernandez Arambula DPM - 04/13/2024 9:30 AM EST Images from the original note were not included. HPI: Patient presents today for evaluation of a wound/ulcer on the right foot. Wound has been present for chronic. 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 Wound was healed for afew months and has returned. Patient has had a history of amputation. He has an MRI scheduled next week. Patient would also like to discuss the [employer] to see if there is a cheaper way for him to obtain this Rx. It is still going to be over $300 per application from [employer]. Patient is diabetic. No other complaints. Exam: [...] the most symptoms improvement. documented [facility] encounter[facility] CenterYpmmmlbosu04-79-0744 Evaluation note* Diagnosis Stage 3a chronic kidney [...] stated as uncontrolled documented [facility] encounter [facility] CenterYwsqxfecex06-70-2177 Evaluation note* Diagnosis Stage 3a chronic kidney [...] Dermatophytosis of nail documented in this encounter [facility] CenterFwzhabejso95-82-4209 History of Present illness Narrative* Hernandez Arambula DPM - 03/26/2024 9:00 AM EST Images from the original note were not included. HPI: Patient presents today for evaluation of a wound/ulcer on the right foot. Wound has been present for chronic. 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 Wound was healed for afew months and [...] current diagnosis. 2. Order was placed into [facility] for MRI right ankle. 3. [...] 5. RTC: following MRI. documented in this encounterSaint [facility] CenterSbilrybfqv11-35-3289 Telephone encounter Note* Telephone Encounter - Marysol Esquedavictoriano - 03/25/2024 1:46 PM EST Pt calling to relay to Starla to leave his paperwork up front. Pt will be in tomorrow morning to sign them. He said Starla will know what paperwork. It was something he was suppose to sign a little while ago but was unable due to transportation issues. [facility] CenterHdwjdufivh26-02-6694 Miscellaneous Notes* Telephone Encounter - Marysol Esquedavictoriano - 03/25/2024 1:46 PM EST Pt calling to relay to Starla to leave his paperwork up front. Pt will be in tomorrow morning to sign them. He said Starla will know what paperwork. It was something he was suppose to sign a little while ago but was unable due to transportation issues. documented in this encounterSaint [facility] CenterNrvmsxctar27-31-2549 Evaluation + Plan note Extracted from: Title:Urology Progress Note Author:Lidia SYED MD Date:03/24/24 Impression and Plan Impression: #1. 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 Plan: #1 we will get him set up for urodynamics. 2. We are scheduling a cystoscopy and transurethral resection of the prostate. Extracted from: Title: Local Male Cystosco py w/ or w/o [...] Appointments Appointment Date:05/04/2024 08:30:00 AM Scheduled Provider: Location:[facility] Appointment Type:URO Nurse Visit Appointment Date:05/29/2024 08:15:00 AM Scheduled Provider:Clarence SYED MD Location:[facility] Appointment Type:URO Office Visit [facility] 01-14-2025 Hospital Discharge instructions Patient Education 03/24/2024 [...] including vitamins, herbs, eye drops, creams, and jyph-bvh-apuzxtk medicines. Any problems you or family members [...] provider tells you to take them. Taking crnx-czc-odxffwv medicines, vitamins, herbs, and supplements. Surgery safety [...] provider. Document Revised: 11/21/2021 Document Reviewed: 11/21/2021 [employer] Patient Education 2023 Standardized Safety. [facility] 01-14-2025 NotePatient Education Urology Transurethral Resection of [...] including vitamins, herbs, eye drops, creams, and gtfw-liz-hychlvu medicines. ??? Any problems you or family [...] tells you to take them. ??? Taking rfxi-lzs-vybxqmh medicines, vitamins, herbs, and supplements. Surgery safety [...] your bladder. The cathete (more content not included)...[facility]12-30-2024 Telephone encounter Note* Telephone Encounter - Marysol Esquedavictoriano - 03/09/2024 3:08 PM EST Insurance is calling to report they have spoken to the patient. He's declining care for wound care but is reporting an active heel ulcer. Wanted to make Dr. Fairbanks aware [facility] CenterBvpabehnmt53-05-3177 Miscellaneous Notes* Telephone Encounter - Marysol York - 03/09/2024 3:08 PM EST Insurance is calling to report they have spoken to the patient. He's declining care for wound care but is reporting an active heel ulcer. Wanted to make Dr. Fairbanks aware documented in this encounterSaint [facility] CenterGwdyzdlzth75-08-3205 Evaluation note* Diagnosis Onset Date Resolution Status Admit Date Abdominal pain acute February 092023 9:48am Neuropathy acute February 28, 2024 9:48am Pancreatic cancer acute Decembe r 2023 9:48am Hypoglycemic episode in patient with diabetes mellitus acute J anuary 2024 1:48pm Abnormal kidney function chronic March 26, 2024 1:48pm Anemia complicating neoplast ic disease chronic March 26 1:48pm Anxiety chronic March 26, 2024 1:48pm Asthma chronic March 26, 2024 1:48pm Cancer cachexia chronic March 112024 1:48pm Cancer-related pain chronic 2024 1:48pm Diabetes mellitus with neuropathy chronic March 26 1:48pm Encounter for chemotherapy management chronic March [...] hepatitis C inactive [facility] 2024 1:48pm CKD (chronic kidney disease) stage 3, GFR 30-59 ml/min acute Februa 2024 9:18am Neuropathy acute April 29, 2024 9:18am Pancreatic cancer acute Februar y 2024 9:18am Nausea & vomiting acute May 092024 2:00pm Neuropathy acute May 18 2:00pm Pancreatic cancer acute May 092024 2:00pm Substance use disorder acute [facility] 2024 2:00pm [facility] Work Phone: 1(539) 604-478612-20-2024 Evaluation note* Diagnosis Onset Date Resolution Status Admit Date Abdominal pain acute February 092023 9:48am Neuropathy acute February 28, 2024 9:48am Pancreatic cancer acute Decee r 2023 9:48am CKD (chronic kidney disease) stage 3, GFR 30-59 ml/min acute Februa 2024 9:18am Neuropathy acute April 29, 2024 9:18am Pancreatic cancer acute Februar y 2024 9:18am Nausea & vomiting acute May 092024 2:00pm Neuropathy acute May 18 2:00pm Pancreatic cancer acute May 092024 2:00pm Substance use disorder acute [facility] 2024 2:00pm Lymph node enlargement acute [facility] 2024 10:44am Asthma chronic May 21 10:44am Cancer-related pain chronic May 21, 2024 10:44am Diabetes mellitus with neuropathy chronic May 21, 2024 10:44am Major depressive disorder chronic May 21, 2024 10:44am Oral leukoplakia chronic May 212024 10:44am 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 May 21, 2024 10:44am Primary cancer of head of pancreas chronic May 21, 2024 10:44am Abscess inactive May 21 10:44am CKD (chronic kidney disease) deleted May 21, 2024 10:44am Hypoglycemic episode in patient with diabetes mellitus acute [facility] 2024 10:45am Abnormal kidney function chronic May 21, 2024 10:45am Anemia complicating neoplast ic disease chronic May 21, 2024 10:45am Anxiety chronic May 21 10:45am Asthma chronic May 21 10:45am Cancer cachexia chronic May 10:45am Cancer-related pain chronic May 21, 2024 10:45am Diabetes mellitus with neuropathy chronic May 21, 2024 10:45am Encounter for chemotherapy management chronic May 21, 2024 10:45am Major depressive disorder chronic May 21, 2024 10:45am Oral leukoplakia chronic May 212024 10:45am 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 May 21, 2024 10:45am Primary cancer of head of pancreas chronic May 21, 2024 10:45am Hypokalemia due to excessive renal loss of potassium resolved May 212024 10:45am Hypomagnesemia resolved May 10:45am Infestation by bed bug resolved [facility] 2024 10:45am Odynophagia resolved May 21, 025 10:45am Tachypnea, not elsewhere classified resolved May 21, 2024 10:45am Family history of pancreatic cancer inactive May 21, 2024 10:45am History of hepatitis C inactive [facility] 2024 10:45am [facility] Work Phone: 1(448) 871-410912-06-2024 Telephone encounter Note* Telephone Encounter - Marysol York - 02/14/2024 2:43 PM EST Pt called stating he called [facility] and they said they hadn't received the muscle relaxer med order. I Refaxed order to [facility] [id number] Miscellaneous Notes* Telephone Encounter - Marysol York - 02/14/2024 2:43 PM EST Pt called stating he called [facility] and they said they hadn't received the muscle relaxer med order. I Refaxed order to [facility] documented in this encounterSaint John's Regional Health [id number] History of Present illness Narrative* Tiki Julio Allantawana, DO - 02/14/2024 8:30 AM EST Images from the original note were not included. Altagracia Conway is a 68 y.o. male presents with chief complaint of ER Follow-up HPI: Pt here for ER follow up. Pt went [place] [facility] [place] d/t having flu like symptoms. Had [...] JUAN 2ND GEN 32G X [facility]25 MCG/ACT AEROSOL POWDER BUSPIRONE (BUSPAR) 30 MG TABLET Take 1 tablet (30 mg) by mouth at bedtime. CONTINUOUS BLOOD GLUC TIMBER MANAGEMENT PROFESSOR (FREESTYLE MAYA 3 READER) DEVICE 1 each [...] TABLET Take 10 mg by mouth PANCRELIPASE, PVB-UVWT-NWYW, (CREON) [id number] UNITS CAPSULE DELAYED-RELEASE PARTICLES CAPSULE Take 2 [...] with the patient today. documented in this encounterSaint John's Regional Health [id number] Evaluation note* Diagnosis Onset Date Resolution Status Admit Date Pancreatic insufficiency acute February 13, 2024 1:02pm Primary cancer of head of pancreas chronic February 12 1:02pm Abdominal pain acute February 092023 9:48am Neuropathy acute February 28, 2024 9:48am Pancreatic cancer acute Decembe r 2023 9:48am Hypoglycemic episode in patient with diabetes mellitus acute J anuary 2024 1:48pm Abnormal kidney function chronic March 26, 2024 1:48pm Anemia complicating neoplast ic disease chronic March 26 1:48pm Anxiety chronic March 26, 2024 1:48pm Asthma chronic March 26, 2024 1:48pm Cancer cachexia chronic March 112024 1:48pm Cancer-related pain chronic Janua ry 2024 1:48pm Diabetes mellitus with neuropathy chronic March 26 1:48pm Encounter for chemotherapy management chronic March [...] 1:48pm History of hepatitis C inactive [place] 2024 1:48pm CKD (chronic kidney disease) stage 3, GFR 30-59 ml/min acute Februa ry 2024 9:18am Neuropathy acute April 29, 2024 9:18am Pancreatic cancer acute 2024 9:18am [facility] Work Phone: 1(970) 485-863912-02-2024 Hospital Discharge instructions Patient Education 02/10/2024 16:56:17 [...] Follow these instructions at home: Medicines Take bjxv-vva-svpzvlo and prescription medicines only as told by [...] provider. Document Revised: 01/02/2021 Document Reviewed: 01/03/2021 [employer] Patient Education 2023 Standardized Safety. Follow Up Care 02/10/2024 15:07:12 With:TIKI DOCKERY Address: [address], [address] [address] Business (1) When:02/13/2024 16:48:45 [facility] 12-02-2024 Hospital Discharge instructions Patient Education 02/10/2024 [...] oral rehydration solution (ORS). This is an gbke-dmx-eptjwbp medicine that helps return your body to [...] regular sports drinks. ?Avoid alcohol. Eat bland, pqev-od-jytvqw foods in small amounts as you are able. These foods include bananas, applesauce, rice, lean meats, toast, and crackers. Avoid spicy or fatty foods. Medicines Take yodb-pyu-obmnzec and prescription medicines only as told by your health care provider. If you were prescribed antibiotics, take them as told by your health care provider. Do not stop using the antibiotic even if you start to feel better. General instructions Wash your hands often using soap and water for at least 20 seconds. If soap and water are not available, use hand ticket sorter. Others in the household should wash their [...] provider. Document Revised: 08/14/2022 Document Reviewed: 08/14/2022 [employer] Patient Education 2023 Standardized Safety. 02/10/2024 14:56:20 Weakness Weakness Weakness is a [...] Consider working with a physical therapist or head athletic trainer/strength coach who can develop an exercise plan to help you gain muscle strength. General instructions Take cfat-aoi-zbhbjaw and prescription medicines only as told by [...] provider. Document Revised: 01/28/2022 Document Reviewed: 01/28/2022 [employer] Patient Education 2023 Standardized Safety. Follow Up Care 02/10/2024 13:35:51 With:TIKI DOCKERY DO Address:Unknown When: Unknown [facility] 12-02-2024 NoteED Patient Education [...] these instructions at home: Medicines ??? Take xngu-yzs-gznxaui and prescription medicines only as told by [...] for 2seconds. ??? Diaphragm (more content not included)...[facility] 02-10-2024 NotePatient Education Infectious Disease Diarrhea, Adult [...] oral rehydration solution (ORS). This is an ssfl-roc-jlswyfr medicine that helps returnyour body to its [...] drinks. ? Avoid alcohol. ??? Eat bland, vpvz-dd-aukboq foods in small amounts as you are able. These foods include bananas, applesauce, rice, lean meats, toast, and crackers. ??? Avoid spicy or fatty foods. Medicines ??? Take nxgt-ygx-ximicnt and prescription medicines only as told by your health care provider. ??? If you were prescribed antibiotics, take them as told by your health care provider. Do not stopusing the antibiotic even if you start to feel better. General instructions ??? Wash your hands often using soap and water for at least 20 seconds. If soap and water are not available, use hand ticket sorter. Others in the household should wash their [...] provider. Document Revised: 08/14/2022 Document Reviewed: 08/14/2022 [employer] Patient Education ? 2023 [employer] Neurology Weakness Weakness is a lack [...] for 30 minutes at (more content not included)...[facility]11-25-2024 Evaluation note* Diagnosis Onset Date Resolution Status [...] February 28, 2024 9:48am Pancreatic cancer acute Decemb r 2023 9:48am Hypoglycemic episode in [place] ent with diabetes mellitus acute March 112024 1:48pm Abnormal kidney function chronic March 26, 2024 1:48pm Anemia complicating neoplast ic disease chronic March 26 1:48pm Anxiety chronic March 26, 2024 1:48pm Asthma chronic March 26, 2024 1:48pm Cancer cachexia chronic March 112024 1:48pm Cancer-related pain chronic Janua 2024 1:48pm Diabetes mellitus with neuropathy ch mahesh March 26, 2024 1:48pm Encounter for chemotherapy [...] 1:48pm History of hepatitis C inactive [facility] 2024 1:48pm Neuropathy acute April 29, 2024 9:18am Cancer-related pain chronic Febru dante 2024 9:18am [facility] Work Phone: 1(979) 787-408710-28-2024 Evaluation + Plan note Future Scheduled Tests Laboratory* PSA Free & Total 01/06/24 [facility] 10-28-2024 Hospital Discharge instructions Patient Education 01/06/2024 [...] urethra. Follow these instructions at home: Take nncc-tmy-oyvhhxl and prescription medicines only as told by [...] provider. Document Revised: 09/13/2021 Document Reviewed: 09/13/2021 [employer] Patient Education 2023 Standardized Safety. Follow Up Care 12/31/2023 15:04:46 With:JOANN WU, Clarence Prince, URL Address: [address] [place] [address]- When: Unknown Comments:our rn medical surgical will call you to schedule cystoscopy [facility] 10-28-2024 NoteUrology Office/Clinic Note Chief Complaint referral [...] Skin: No rashes or suspicious lesions Assessment/Plan DERMATOLOGY SPECIALIST referred by Dr. 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 [...] E&M of New Patient Moderate 45-59 Min 18935 Urology Procedure Order 2. Screening PSA (prostate [...] be discussed at cystoscopy. -PSA level in prior to cystoscopy (order sent to [facility]) -Will review results at cystoscopy -F/U pending cysto/results Ordered: E&M of New Patient Moderate 45-59 Min 34235 PSA Free & Total 3. Asymptomatic microscopic [...] E&M of New Patient Moderate 45-59 Min 66582 Urology Procedure Order 4. Kidney stones (N20.0: Calculus of kidney) 11/19/23 CT abd/pelvis w/ con - punctate stone L lower pole, tiny renal cysts are noted, no hydronephrosis Advised pt he has tiny stone in the L kidney currently. Pt reports many years ago he had ESWL for kidney stone treatment. He denies curre (more content not included)...[facility] HospitalComment on above:Result Comment: Electronically Signed By: Donna Johnson\.br\Date and Time Signed: 01/06/24 11:55 [id number] NotePatient Education Urology Benign Prostatic Hyperplasia Benign [...] Follow these instructions at home: ??? 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 documented in this encounterSaint John's Regional Health [id number] History of Present illness Narrative* Tiki Dockery DO - 11/26/2023 10:00 AM EDT Altagracia Conway is a 68 y.o. male presents with chief complaint of ER Follow-up HPI: HPI Pt went to [facility] ER 11/21/23 for a painful abscess/cyst in [...] CAPSULE Every 6 hours CONTINUOUS BLOOD GLUC TIMBER MANAGEMENT PROFESSOR (FREESTYLE MAYA 3 READER) DEVICE 1 each [...] TABLET Take 10 mg by mouth PANCRELIPASE, HWU-YUFQ-XKZP, (CREON) 54916-982796 UNITS CAPSULE DELAYED-RELEASE PARTICLES CAPSULE Take 2 [...] with the patient today. documented in this encounterFILLMORE COMMUN[facility] [id number] NoteMicrobiology PROCEDURE: Blood Culture Charcoal [R1] SOURCE: Blood BODY SITE: Arm L COLLECTED DATE/TIME: 10/06/2023 08:15 EDT RECEIVED DATE/TIME: 10/06/2023 10:46 EDT START DATE/TIME: 10/06/2023 10:46 EDT FREE TEXT SOURCE: lt ac JV AGPCNP, JV AGPCNP, Kathi Kathi FINAL REPORTS Final Report [] Verified Date/Time: 10/13/2023 12:00 EDT No growth at 7 days. Performing Locations R1: This test was performed at: [facility], [address] [place] [address], [address] [place] [address], YehwfeHocking Valley Community HospitalComment on above:Performed By: #### [id number] #### [facility] [address] [place] [address] [id number] NoteMicrobiology PROCEDURE: Blood Culture Charcoal [R1] SOURCE: Blood BODY SITE: COLLECTED DATE/TIME: 10/06/2023 08:18 EDT RECEIVED DATE/TIME: 10/06/2023 10:46 EDT START DATE/TIME: 10/06/2023 10:46 EDT FREE TEXT SOURCE: PORT JV AGPCNP, JV AGPCNP, Kathi Kathi FINAL REPORTS Final Report [] Verified Date/Time: 10/13/2023 12:00 EDT No growth at 7 days. Performing Locations R1: This test was performed at: [facility], [address] [place] [address], [id number] [place] [address], AsftowHocking Valley Community HospitalComment on above:Performed By: #### [id number] #### [facility] [address] [place], [place] [id number] NoteProgress Note-Physician Assessment/Plan PLAN: 1. Acute respiratory [...] 3. Smoker (F17.200: Nicotine dependence, unspecified, uncomplicated) Bobbin Presser on cessation Nicotine patch 10. On deep vein thrombosis (DVT) prophylaxis (Z79.899: Other termite inspector (current) drug therapy) SCDs/Heparin Subjective pt seen [...] 04:59:00) MCV: 89.5 fL (more content not included)...[facility] HospitalComment on above:Result Comment: Electronically Signed By: Kathi LOVELL\.br\Date and Time Signed: 10/07/23 12:49 EDT\.br\Electronically Co- Signed By: John Livingston MD\.br\Date and Time Co-Signed:10/09/23 19:00 [id number] NoteProgress Note-Physician Assessment/Plan PLAN: 1. Acute respiratory [...] 3. Smoker (F17.200: Nicotine dependence, unspecified, uncomplicated) Bobbin Presser on cessation Nicotine patch 10. On deep vein thrombosis (DVT) prophylaxis (Z79.899: Other termite inspector (current) drug therapy) SCDs/Heparin Subjective Seen at [...] (10/08/23 04:25:00) Hct: 3 (more content not included)...[facility] HospitalComment on above:Result Comment: Electronically Signed By: Kathi LOVELL\.br\Date and Time Signed: 10/08/23 13:26 EDT\.br\Electronically Co- Signed By: Kathi LOVELL\.br\Date and Time Co-Signed: 10/08/23 13:29 EDT\.br\Electronically Co-Signed By: Miki WU, John Guy\.br\Date and Time Co-Signed: 10/09/23 19:00 [id number] NoteDischarge Summary Admission and Discharge Information Admit [...] toe (03/11/2015), 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 Hospital Course 68-year-old male who presented to [...] on Cipro/Flagyl. Blood cultures on admission returned +06/[address] of the [...] were written with flushes and sent with family caseworker. Today on exam patient is doing well. [...] inhalation powder, 1 puff(s (more content not included)...[facility] HospitalComment on above:Result Comment: Electronically Signed By: Kathi LOVELL\.br\Date and Time Signed: 10/09/23 12:36 EDT\.br\Electronically Co-Signed By: John Livingston MD\.br\Date and Time Co-Signed:10/09/23 18:59 [id number] Evaluation + Plan noteExtracted from: Title:Discharge Note [...] When Contact Information TIKI DOCKERY [address], [place] [id number]- SOLO (1) Additional Instructions: Call for followup appointment [...] 3. Smoker (F17.200: Nicotine dependence, unspecified, uncomplicated) Bobbin Presser on cessation Nicotine patch 10. On deep vein thrombosis (DVT) prophylaxis (Z79.899: Other termite inspector (current) drug therapy) SCDs/Heparin Extracted from: Title:Infection [...] 3. Smoker (F17.200: Nicotine dependence, unspecified, uncomplicated) Bobbin Presser on cessation Nicotine patch 10. On deep vein thrombosis (DVT) prophylaxis (Z79.899: Other termite inspector (current) drug therapy) SCDs/Heparin Extracted from: Title:APSO Note Author:Kathy LOVELL Date:10/06/23 PLAN: 1. Acute respiratory failure with [...] 3. Smoker (F17.200: Nicotine dependence, unspecified, uncomplicated) Bobbin Presser on cessation Nicotine patch 10. On deep vein thrombosis (DVT) prophylaxis (Z79.899: Other senior care (current) drug therapy) SCDs/Heparin Extracted from: Title:APSO Note Author:JV REYNOLDSTABITHAKathy Date:10/05/23 PLAN: 1. Acute respiratory failure with [...] 3. Smoker (F17.200: Nicotine dependence, unspecified, uncomplicated) Bobbin Presser on cessation Nicotine patch 4. History of [...] deep vein thrombosis (DVT) prophylaxis (Z79.899: Other senior care (current) drug therapy) SCDs/Heparin Orders: amlodipine, 10 [...] deep vein thrombosis (DVT) prophylaxis (Z79.899: Other senior care (current) drug therapy) SCD, heparin Orders: acetaminophen, [...] due to above Extracted from: Title:ED Note Author:Chelsea Ortiz DO Date :10/05/23 COPD exacerbation (J44.1: Ch ronic [...] Therapy PT & PTT Rapid COVID Antigen ([facility]) Saline Lock Insert Troponin 0 Hr. Troponin 1 Hr. XR Chest Single View Future Appointments Appointment Date:10/10/2023 12:30:00 PM Scheduled Provider: Location:[facility] Appointment Type:ASU IV Antibiotic (FT) Appointment Date:10/11/2023 12:30:00 PM Scheduled Provider: Location:[facility] Appointment Type:ASU IV Antibiotic (FT) Appointment Date:10/12/2023 12:30:00 PM Scheduled Provider: Location:[facility] Appointment Type:ASU IV Antibiotic (FT) Appointment Date:10/13/2023 12:30:00 PM Scheduled Provider: Location:[facility] Appointment Type:ASU IV Antibiotic (FT) Appointment Date:10/14/2023 12:30:00 PM Scheduled Provider: Location:[facility] Appointment Type:ASU IV Antibiotic (FT) Appointment Date:10/15/2023 12:30:00 PM Scheduled Provider: Location:[facility] Appointment Type:ASU IV Antibiotic (FT) Appointment Date:10/16/2023 12:30:00 PM Scheduled Provider: Location:[facility] Appointment Type:ASU IV Antibiotic (FT) Appointment Date:10/17/2023 12:30:00 PM Scheduled Provider: Location:[facility] Appointment Type:ASU IV Antibiotic (FT) Appointment Date:10/18/2023 12:30:00 PM Scheduled Provider: Location:[facility] Appointment Type:ASU IV Antibiotic (FT) Appointment Date:10/19/2023 12:30:00 PM Scheduled Provider: Location:[facility] Appointment Type:ASU IV Antibiotic (FT) Appointment Date:10/20/2023 12:30:00 PM Scheduled Provider: Location:[facility] Appointment Type:ASU IV Antibiotic (FT) [facility] 07-31-2024 Hospital Discharge instructions Patient Education 10/09/2023 [...] Follow these instructions at home: Medicines Take ophd-lky-fmysbqf and prescription medicines only as told by [...] and water are not available, use hand ticket sorter. You should wash your hands: ?After using the toilet or changing a diaper. ?Before preparing, cooking, serving, or eating food. ?While caring for a sick person or while visiting someone in a hospital. ?Before and after changing bandages (dressings) over wounds. Practice good mouth care (oral hygiene). [place] your teeth two times a day, and [...] provider. Document Revised: 05/29/2021 Document Reviewed: 05/29/2021 [employer] Patient Education 2022 Standardized Safety. 10/09/2023 11:47:21 Sepsis, Self Care, Adult Sepsis, [...] Follow these instructions at home: Medicines Take qnyx-egn-zblbbyp and prescription medicines only as told by [...] and water are not available, use hand ticket sorter. Practice good hygiene. Keep cuts clean and [...] right away. Call your local emergency services (814 in the [place] Do not drive yourself to the hospital. If you ever feel like you may hurt yourself or others, or have thoughts about taking your own life,get help right away. Go to your nearest emergency department or: Call your local emergency services (119 in the [place] Call a suicide crisis helpline, such as the National Suicide Prevention Lifeline at or 163 in the [place] This is open 24 hours a day. Text the Crisis Text Line at 761422 (in the [place] Summary Sepsis is a [...] provider. Document Revised: 09/20/2021 Document Reviewed: 01/09/2021 [employer] Patient Education 2022 Standardized Safety. Follow Up Care 10/05/2023 01:12:37 With:TIKI DOCKERY Address: [address], [place] [address]- Business (1) When: Unknown Comments:Call for followup appointment [facility] 07-30-2024 NoteConsultation Note Patient: ALTAGRACIA CONWAY Age: [...] At risk for falls / SNOMED CT 764156693 / Possible Problem added when Risk for Falls Careplan was initiated. Brachial plexus neuropathy / SNOMED CT 510210744 / Confirmed CKD (chronic kidney disease), stage III / SNOMED CT 4974288168 / Confirmed Contusion of knee, right / SNOMED CT 57635080 / Confirmed Diabetes / SNOMED CT 038211717 / Confirmed Diabetes / SNOMED CT [id number] / Confirmed Hepatitis C / SNOMED CT 85648969 / Confirmed History of pancreatic cancer / SNOMED CT 0885384353 / Confirmed HTN (hypertension) / SNOMED CT [id number] / Confirmed Hyperlipidemia / SNOMED CT 19284961 / Confirmed Depression with anxiety / SNOMED CT 459977722 / Confirmed Smoker / ICD-10-CM F17.200 / Confirmed Medial collateral ligament sprain of knee / SNOMED CT 073343997 / Confirmed DM2 (diabetes mellitus, type 2) / SNOMED CT 518306879 / Confirmed Hepatitis C / SNOMED CT 04803668 / Confirmed Histories Past Medical History: Active Diabetes ([id number] (more content not included)...[facility] HospitalComment on above:Result Comment: Electronically Signed By: Leonides Bruce M.D\Date and Time Signed: 10/08/23 12:53 [id number] Note Echocardiology Procedure Exam Date/Time Accession # Ordering Echo Transthoracic 10/07/2023 13:28 EDT [id number] JV AGPCNP, Complete Ktahi CPT code 28669 [id number] Reason for Exam (Echo Transthoracic Complete) Other (please specify) Report [facility] [address] [place] [address] Adult Echocardiogram Report Name: ALTAGRACIA CONWAY Study Date: 10/07/2023 12:49 PM BP: 151/74 mmHg Patient Location: [address] [place] [address] HR: 82 : 1955 Gender: Male Height: 73.5 in Age: 68 yrs Ethnicity: WHT Weight: 214 lb Reason For Study: Bacteremia BSA: 2.2 m2 History: HTN,Diabetes,Smoker-Yes,COPD Ordering Physician: JV^Kathi Performed By: Sadia Larkin RDCS Interpretation Summary [...] Signed by: Saroj Garcia MD Transcribed by: [facility] Technologist: Whitney [facility]07-29-2024 Note Discharge Summary Admission and Discharge Information [...] toe (03/11/2015), 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 PO antibiotics on way home today Discharge [...] 1 tab(s), Oral, Daily, Not taking: per [facility] insulin aspart, See Instructions insulin degludec, See Instructions insulin glargine, 20 unit(s), SubCutaneous, BID, Not taking: not taking per [facility] insulin lispro, 0-10 units, SubCutaneous, QIDACHS lisinopril, 10 mg, Oral losartan 50 mg Tab, 100 mg= 2 tab(s), Oral, Daily, Not taking: per [facility] Metoprolol tartrate 25 mg Tab, 25 mg= 1 tab(s), Oral, BID, Not taking: per [facility] med list Miralax 3350 17 gram packet, Oral, Daily, Not taking: per medication list from [facility] mirtazapine, 45 mg, Oral, Once a [...] With When Contact Information TIKI DOCKERY DO [address], [address] [place] [address]- Additional Instructions: Patient Education Colitis Patient had improved recovery of colitis and exam. His recovery was better than expected considering his admission and HOD 1 physical exam with concerns for possible peritonitisHocking Valley Community HospitalComment on above:Result Comment: Electronically Signed By: Jesse Angelo DO\.br\Date and Time Signed: 10/07/23 13:16 [id number] NoteMicrobiology PROCEDURE: Blood Culture Charcoal [R1] SOURCE: [...] gram negative rods Result called to Dennise Zunigalove [facility] by [facility] and results read back for confirmation [...] Locations R1: This test was performed at: [facility], [address] [place] [address], [address] [place] [address], RzhfihHocking Valley Community HospitalComment on above:Performed By: #### [id number] #### [facility] [address] [place] [address] [id number] NoteMicrobiology PROCEDURE: Blood Culture Charcoal [R1] SOURCE: [...] Locations R1: This test was performed at: [facility], [address] [place] [address], [id number]- , [place], ZmkxkrHocking Valley Community HospitalComment on above:Performed By: #### [id number] #### Ciro [facility] [address] [place] [address] [phone] NoteProgress Note - Pharmacy Vancomycin Pharmacy to [...] questions please contact the pharmacy at extension [phone]. Age: 68 Years Allergies: Ragweed Weight: Last [...] Low (10/06/23 06:25:00) Hct: 30.5 % Low (10/06/23 06:25:00) MCV: 89.3 fL (10/06/23 06:25:00) MCH: 29.9 pg (10/06/23 06:25:00) MCHC: 33.5 gm/dL (10/06/23 06:25:00) RDW: 14.9 % High (10/06/23::00) Platelet: 175 E9/L (10/06/23:25:00) MPV: 9.7 fL (10/06/23:25:00) Segs Man: 80 % High (10/06/23:25:00) Band Man: 9 % High (10/06/23::00) Lymph Man: 6 % Low (10/06/23::00) Monocyte Man: 5 % (10/06/23::00) Eos Man: 0 % (10/06/23::) Basophil Man: 0 % (10/06/23::00) Segs Abs Man: 16.4 E9/L (10/06/23::00) Lymph Abs Man: 1.1 E9/L (10/06/23::00) [place] Abs Man: 0.9 E9/L (10/06/23::00) Eos Abs Man: 0 E9/L (10/06/23:25:00) Basophil Abs Man: 0 E9/L (10/06/23::00) Glucose Lvl: 219 mg/dL High (10/06/23:25:00) BUN: 41 mg/dL High (10/06/23:25:00) Creatinine: 1.3 mg/dL (10/06/23:25:00) eGFR: 60 mL/min/1.73 m2 (10/06/23:25:00) BUN/Creat Ratio: 32 High (10/06/23:25:00) Sodium Lvl: 135 mmol/L (10/06/23 06:25:00) Potassium Lvl: 5.5 mmol/L High (10/06/23:25:00) Chloride: 107 mmol/L (10/06/23 06:25:00) CO2: 22 mmol/L (10/06/23 06:25:00) AGAP: 12 mEq/L (10/06/23:25:00) Calcium Lvl: 9 mg/dL (10/06/23 06:25:00) Glucose Cap: 256 mg/dL High (10/06/23 11:12:00) POC Device SN: [id number] (10/06/23 11:12:00) POC User ID: [id number] (10/06/23 11:12:00) POC Username: ELIZABETH FLOWERS (10/06/23 11:12:00)[facility] 10-06-2023 NoteProgress Note-Physician Assessment/Plan PLAN: 1. Acute [...] 3. Smoker (F17.200: Nicotine dependence, unspecified, uncomplicated) Bobbin Presser on cessation Nicotine patch 10. On deep vein thrombosis (DVT) prophylaxis (Z79.899: Other termite inspector (current) drug therapy) SCDs/Heparin Subjective Pt reports [...] (10/06/23 06:25:00) Hct: 30.5 (more content not included)...[facility] Community HospitalComment on above:Result Comment: Electronically Signed By: Kathi LOVELL\.br\Date and Time Signed: 10/06/23 12:29 EDT\.br\Electronically Co- Signed By: Kathi LOVELL\.br\Date and Time Co-Signed: 10/06/23 12:33 EDT\.br\Electronically Co-Signed By: Kathi LOVELL\.br\Date and TimeCo-Signed: 10/06/23 12:42 EDT\.br\Electronically Co-Signed By: Dario Washington DO\.br\Date andTime Co-Signed: 10/06/23 13:09 [id number] Note Interdisciplinary Note - OT OT evaluation complete. [facility] 6 clicks = no home needs. Pt is able to complete ADL tasks and mobility mod indep with fair safety. Pt with some SOB but reports it is getting better. Educated Pt on PLB techs. No home needs anticipated and no further skilled OT services at this time.[facility]07-28-[facility] NoteInterdisciplinary Note - PT PT evaluation completed w/ no additional PT needs identified. FWW height was raised to his height. Pt is steady w/ the walker. Independent w/ bed mobility & transfers. Discharge to home when medically ready. Initial AM-PAC 6 Clicks score is 23.[facility]07-27-2024 NoteProgress Note-Physician Assessment/Plan PLAN: 1. Acute respiratory [...] 3. Smoker (F17.200: Nicotine dependence, unspecified, uncomplicated) Bobbin Presser on cessation Nicotine patch 4. History of [...] deep vein thrombosis (DVT) prophylaxis (Z79.899: Other senior care (current) drug therapy) SCDs/Heparin Orders: amlodipine, 10 [...] Bilateral wheezes, no rhonchi (more content not included)...[facility] Community HospitalComment on above:Result Comment: Electronically Signed By: Kathi LOVELL\.br\Date and Time Signed: 10/05/23 14:13 EDT\.br\Electronically Co-Signed By: Dario Washington DO\.br\Date and Time Co-Signed:10/05/23 15:40 [id number] NoteHistory and Physical Basic Information Admit Date/Time:10/05/2023 [...] thoughts. Lab Results WBC: 3.6 E9/L Low (10/05/23:30:00) RBC: 3.8 E12/L Low (10/05/23:30:00) HGB: 11.4 gm/dL Low (10/05/23:30:00) Hct: 33.7 % Low (10/05/23:30:00) MCV: 89.7 fL (10/05/23:30:00) MCH: 30.4 pg (10/05/23:30:00) MCHC: 33.9 gm/dL (10/05/23:30:00) RDW: 14.6 % High (10/05/23:30:00) Platelet: 216 E9/L (10/05/23:30:00) MPV: 9.1 fL (10/05/23:30:00) Neutro Auto: 92.7 % High (10/05/23:30:00) Lymph Auto: 4.9 % Low (10/05/23:30:00) [place] Auto: 0.8 % Low (10/05/23:30:00) Eos Auto: 1.3 % (10/05/23:30:00) Basophil Auto: 0.3 % (10/05/23:30:00) Neutro Absolute: 3.4 E9/L (10/05/23:30:00) Lymph Absolute: 0.2 E9/L Low (10/05/23:30:00) [place] Absolute: 0 E9/L Low (10/05/23:30:00) Eos Absolute: 0 E9/L (10/05/23:30:00) Basophil Absolute: 0 E9/L (10/05/23:30:00) PT: 11.9 second(s) (10/05/23:30:00) INR: 1.06 (10/05/23:30:00) PTT: 37.9 second(s) High (10/05/23:30:00) Glucose Lvl: 186 mg/dL (10/05/23:30:00) BUN: 52 mg/dL High (10/05/23:30:00) Creatinine: 1.6 mg/dL High (10/05/23:30:00) eGFR: 47 mL/min/1.73 m2 Low (10/05/23:30:00) BUN/Creat Ratio: 32 High (10/05/23:30:00) Sodium Lvl: 132 mmol/L Low (10/05/23:30:00) Potassium Lvl: 5.4 mmol/L High (10/05/23:30:00) Chloride: 104 mmol/L (10/05/23:30:00) CO2: 20 mmol/L Low (10/05/23:30:00) AGAP: 13 mEq/L (10/05/23:30:00) Calcium Lvl: 9.2 mg/dL (10/05/23:30:00) Lactic Acid Lvl: 1.3 mmol/L (10/05/23:30:00) Troponin HS: 18.1 pg/mL (10/05/23 03:20:00) BNP: <5 (10/05/23:30:00) Procalcitonin: 15.35 ng/mL High (10/05/23 03:20:00) Rapid COVID Ag: Not Detected (10/05/23:23:00) Rapid COV Int NEG Ctl: Pass (10/05/23:23:00) Rapid COV Int POS Ctl: Pass (10/05/23:23:00) pH Arterial: 7.4 (10/05/23:42:00) P CO2 Arterial: 33.7 mmHg Low (07/27/24 01:42:00) P O2 Arterial: 32.4 mmHg Critical (10/05/23 01:42:00) Base Excess Arterial: -3.3 mmol/L Low (10/05/23 01:42:00) HCO3 Arterial: 21.1 mmol/L Low (10/05/23 01:42:00) Total Hgb Art: 11.9 gm/dL Low (10/05/23 01:42:00) FO2Hb Art: 64.1 % Critical (10/05/23 01:42:00) FCOHb Art: 2.1 % (10/05/23 01:42:00) FMetHb Art: 0.7 % (10/05/23 01:42:00) O2 Sat Art: 66 % Low (10/05/23 01:42:00) supervisor title+ Art: 133 mmol/L Low (10/05/23 01:42:00) cK+ [...] Allens Test: Positive1 (10/05/23 01:42:00) Drawn by: wmdinesh (10/05/23 01:42:00) Assessment/Plan 1. COPD exacerbation (J44.1: Chronic obstructive pulmonary disease with (more content not included)...[facility] HospitalComment on above:Result Comment: Electronically Signed By: Nereida CA DO\Date and Time Signed: 10/05/23 04:23 [id number] NoteProgress Note-Physician Basic Information ALTAGRACIA CONWAY is [...] Lymph Auto: 10 % Low (09/20/23 06:20:00) [place] Auto: 5.6 % (09/20/23 06:20:00) Eos Auto: 1.2 % (09/20/23 06:20:00) Basophil Auto: 0.2 % (09/20/23 06:20:00) Neutro Absolute: 12.9 E9/L High (09/20/23 06:20:00) Lymph Absolute: 1.6 E9/L (09/20/23 06:20:00) [place] Absolute: 0.9 E9/L (09/20/23 06:20:00) Eos Absolute: [...] mg/dL High (09/20/23 06:48:00) POC Device SN: [id number] (09/20/23 06:48:00) POC User ID: [id number] (09/20/23 06:48:00) POC Username: VLADIMIR FUENTES (09/20/23 06:48:00) UA Spec Desc: Clean Catch [...] - Patient clinically improv (more content not included)...[facility] HospitalComment on above:Result Comment: Electronically Signed By: Theodora Salas PA-C\.br\Date and Time Signed: 09/20/23 10:53 EDT\.br\Electronically Co- Signed By: Jesse Angelo DO\.br\Date and Time Co-Signed: 09/22/23 18:50 [id number] NoteProgress Note-Physician INTERVAL HISTORY/EVENTS Background: Basic Information [...] Lymph Auto: 13.7 % Low (09/21/23 06:05:00) [place] Auto: 5.2 % (09/21/23 06:05:00) Eos Auto: 3.3 % (09/21/23 06:05:00) Basophil Auto: 0.6 % (09/21/23 06:05:00) Neutro Absolute: 8.2 E9/L High (09/21/23 06:05:00) Lymph Absolute: 1.5 E9/L (09/21/23 06:05:00) [place] Absolute: 0.6 E9/L (09/21/23 06:05:00) Eos Absolute: [...] mg/dL High (09/21/23 07:10:00) POC Device SN: [id number] (09/21/23 07:10:00) POC User ID: [id number] (09/21/23 07:10:00) POC Username: POC Username (09/21/23 [...] - No indication for (more content not included)...[facility] Comment on above:Result Comment: Electronically Signed By: Margaret Sánchez PA-C\.br\Date and Time Signed: 09/21/23 10:24 EDT\.br\Electronically Co-Signed By: Margaret Sánchez PA-C\.br\Date and Time Co-Signed: 09/21/23 13:00 EDT\.br\Electronically Co-Signed By: Jesse Angelo DO\.br\Date and Time Co-Signed: 09/22/23 18:47 [id number] Hospital Discharge instructions Patient Education 09/21/2023 11:36:33 [...] if you start to feel better. Take ubtt-mra-tknemgi and prescription medicines only as told by [...] provider. Document Revised: 11/01/2020 Document Reviewed: 11/01/2020 [employer]Guard Patient Education 2022 Standardized Safety. Follow Up Care 09/19/2023 00:30:53 With:TIKI DOCKERY DO Address: [address] [facility], [facility] [address] [place] [address]- When: Unknown [facility]07-11-2024 Evaluation + Plan noteExtracted from: Title:ED Note Author:Mainor Hamilton DO Date :09/19/23 Proctocolitis (K52.9: Noninf ective gastroenteritis and colitis, unspecified) Orders: HYDROmorphone, 0.5 mg = 0.5 mL, Injection, IV Push, Once, Stop date 09/19/23 2:36:00 EDT, STAT, Start date 09/19/23 2:36:00 EDT, 09/19/23 2:36:00 EDT HYDROmorphone, 0.5 mg = 0.5 mL, Injection, IV Push, Once, Stop 09/19/23 6:05:00 EDT, STAT, Start date 09/19/23 [...] Appointment Date:10/08/2023 10:00:00 AM Scheduled Provider:Donna Johnson Location:[facility] Appointment Type:URO New Patient [facility]07-11-2024 NoteHistory and Physical EMERGENCY GENERAL SURGERY CONSULT [...] toe: 03/11/15 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 Cigarettes Comment: 2 ppd (04/30/2017 21:41 - Roxy Rizo RN) Current Every Day Smoker, Cigarettes Comment: 3-6 cigarettes a day (05/10/2016 08:35 - Franca RICHARDSON, Alpa Julio) Psychosocial History No active psychosocial history has [...] appropriate for age?, speech (more content not included)...[facility] HospitalComment on above:Result Comment: Electronically Signed By: Theodora [...] vomiting unable to urinate or any other concernsGe[facility] Work Phone: [phone]) 698-336804-10-2024 Evaluation + Plan note Diagnostic Tests Pending * PTH Intact 06/19/23 [facility]03-13-2024 Miscellaneous Notes* Telephone Encounter - Cathy Garcia [...] EDT Dr. Jordan Ortega reviewed, he recommends [facility] for other treatment options including possible ketamine infusions. Please advise Altagracia Conway of the above recommendations. Elba Henry PA-C May 22, 2023 documented in this encounterCincinnati Shriners Hospital03-05-2024 NoteHNO ID: [id number] Author: ELBA HENRY PA-C Service: ? Author Type: Physician Research Associate Type: Progress Notes Filed: 05/14/2023 13:46 Note Text: Pain Management Follow Up Visit Date: 05/14/23 SUBJECTIVE Altagracia Dinesh Conway is a 67 year old male, [...] supervised home exercise program (HEP): No 5. Appeals Officer: No Passive conservative therapy lasting 6 weeks in the last six months (see below) 1. Medical devises: No 2. Acupuncture: No 3. Tens unit: No 4. Prescription pain medication: No 5. NSAIDS: [place]: Cathy Garcia RN May 14, 2023 9:56 [...] to evaluate for DVT 4) Conor from [employer] was present for this visit and SCS [...] Hydrocodone/Acetaminophen 5/325 mg #10/ for 2 days Rajiv Enriquez Physical Examination: BP 138/65 Pulse 84 Ht [...] IMAGED SEGMENTS OF THE LEFT LOWER EXTREMITY. CT (more content not included)...[facility]03-01-2024 Miscellaneous Notes* Telephone Encounter - Kristen Templeton LPN - 05/10/2023 1:40 PM EST Spoke with pt regarding SCS eval with [employer](Conor). Pt requesting appt with [facility] to discuss options. VM and email sent to [employer] to meet pt at appt on 05/14/2023 @ 710. Pt stated he has been seen several times by [facility] and was texting with Conor yesterday. documented in this encounterCincinnati Shriners Hospital02-15-2024 History of Present illness Narrative* Tiki Dockery, - 04/25/2023 10:00 AM EST Images from [...] by mouth at bedtime. CONTINUOUS BLOOD GLUC TIMBER MANAGEMENT PROFESSOR (Achieve XSTYLE MAYA 3 READER) DEVICE 1 each See [...] fasting blood sugars 3 TIMES DAILY PANCRELIPASE, [id number], (CREON) 28120-367268 UNITS CAPSULE DELAYED-RELEASE PARTICLES CAPSULE Take 2 [...] No medications on file documented in this encounterSaint John's Regional Health [id number] History of Present illness Narrative* Tiki Dockery [...] Flowsheet Row Patient Outreach from 04/15/2023 in [facility] with Cathryn Flowers RN Discharge Information ED or Hospital Discharge? ED Patient has been contacted within 1 week of being seen in the ED Yes Discharge Date 04/13/23 Discharge [facility] [Clinical Impression: COPD exacerbation] Discharged To: Home [...] XR. pt reports improvement. No longer seeing victim advocate. Discussed deep breathing exercises and smoking cessation. Pt monitoring pulse ox sat in the home Altagracia Conway is a 67 y.o. male presents with chief complaint of ER Follow-up HPI: [facility] ER FOLLOW UP FROM 04/13/2023 He went [...] by mouth at bedtime. CONTINUOUS BLOOD GLUC TIMBER MANAGEMENT PROFESSOR (Achieve XSTYLE MAYA 3 READER) DEVICE 1 each See administration instructions CONTINUOUS BLOOD GLUC SENSOR (FREESTYLE MAYA 3 SENSOR) [facility] Inject 1 Device under the skin every [...] fasting blood sugars 3 TIMES DAILY PANCRELIPASE, [id number], (CREON) 73875-911121 UNITS CAPSULE DELAYED-RELEASE PARTICLES CAPSULE Take 2 [...] 20 MG TABLET Daily documented in this encounterSaint John's Regional Health [id number] NoteHNO ID: [id number] Author: DUANE DAVIES RT(Niki) Service: ? Author Type: Outdoor Emergency Care Technician Type: Progress Notes Filed: 03/29/2023 15:23 Note [...] BY: RT Bib(R) March 29, 2023 3:23 [facility] HospitalBaifwbyk25-55-4157 NoteHNO ID: [id number] Author: MOJGAN CHE RT(R) Service: Radiology Author [...] BY: RT Birgit(R) March 29, 2023 3:11 [facility] [id number] NoteHNO ID: [id number] Author: ELBA HENRY PA-C Service: ? Author Type: Physician Research Associate Type: Progress Notes Filed: 03/29/2023 15:18 Note [...] supervised home exercise program (HEP): No 5. Appeals Officer: No Passive conservative therapy lasting 6 weeks [...] left SI Joint: Gaenslen's Test negative and Covington's Test is negative. No tenderness with palpation [...] (SCS) lead implantation x 2 and Medtronic Eximo Medicalis adaptiveStim system implantable pulse generator (IPG), on 11/13/[address] Ortega. His last office visit was on 02/19/23 with Elba Henry PA-C at which time he reported pain in the left buttock around the the IPG. At that time I recommended use of heat, stretching, and muscle relaxant for the pain. Altagracia Conway also met with the [employer] rep for SCS reprogramming. Altagracia Conway reports [...] chills, left lower extremi (more content not included)...[facility]12-12-2023 NoteHNO ID: [id number] Author: Elba Henry PA-C Service: ? Author Type: Physician Research Associate Type: Progress Notes Filed: 02/19/2023 3:20 PM [...] supervised home exercise program (HEP): No 5. Appeals Officer: No Passive conservative therapy lasting 6 weeks [...] - 01/30/23 pregabalin 150 mg #180/90 Tiki Dockery, - 01/10/23 lorazepam 1 mg #45/23 days [...] relaxant, heat and stretching (more content not included)...[facility]12-12-2023 Instructions* Patient Instructions* Elba Henry PA-C - 02/19/2023 3:00 PM EST PLAN: 1) Start methocarbamol 500 mg Take one (1) tablet three(3) times daily as needed. 2) Use of heat and stretching. 3) SCS reprogramming today to hopefully get better coverage of his toes at this time. documented in this encounterCincinnati Shriners Hospital12-12-2023 History of Present illness Narrative* Elba Henry [...] supervised home exercise program (HEP): No 5. Appeals Officer: No Passive conservative therapy lasting 6 weeks [...] - 01/30/23 pregabalin 150 mg #180/90 Tiki Dockery, - 01/10/23 lorazepam 1 mg #45/23 days [...] SCS lead implantation x 2 and Medtronic Eximo Medicalis adaptiveStim system implantable pulse generator, on 11/13/22 [...] his toes at this time. 4) Altagracia Montiel Conway was advised to contact us immediately if any signs of infection: fever, chills, redness/swelling at the battery site. The above plan and management options were discussed at length with patient. Patient is in agreement with the above and verbalized understanding. Elba Henry PA-C February 19, 2023 documented in this encounterCincinnati Shriners Hospital12-04-2023 NoteMicrobiology PROCEDURE: Blood Culture Charcoal [R1] SOURCE: Blood BODY SITE: Arm R COLLECTED DATE/TIME: 02/03/2023 19:13 EST RECEIVED DATE/TIME: 02/03/2023 19:47 EST START DATE/TIME: 02/03/2023 19:47 EST FREE TEXT SOURCE: Rajiv WU, Danielle Vnace MD, Danielle FINAL REPORTS Final Report [] Verified Date/Time: 02/11/2023 07:00 EST No growth at 7 days. Performing Locations R1: This test was performed at: [facility], [address] [place] [address], [address] [place] [address], PubexiHocking Valley Community HospitalComment on above:Performed By: #### [id number] ####[address] [id number] NoteMicrobiology PROCEDURE: Blood Culture Charcoal [R1] SOURCE: Blood BODY SITE: COLLECTED DATE/TIME: 02/03/2023 19:08 EST RECEIVED DATE/TIME: 02/03/2023 19:46 EST START DATE/TIME: 02/03/2023 19:46 EST FREE TEXT SOURCE: Hortensia Vance MD, Danielle Vance MD, Danielle FINAL REPORTS Final Report [] Verified Date/Time: 02/11/2023 07:00 EST No growth at 7 days. Performing Locations R1: This test was performed at: [facility], [address] [place] [address], [id number] , [place], AtvuqrHocking Valley Community HospitalComment on above:Performed By: #### [id number] #### [facility] [address] [place] [address] [id number] NoteChief Complaint SOB Reason for Consultation Acute [...] suspicious nodule as guide (more content not included)...[facility] HospitalComment on above:Result Comment: Electronically Signed By: Andreas WU, Herson Martini\.br\Date and Time Signed: 02/04/23 19:21 [id number] Note Admission and Discharge Information Admit Date/Time:02/04/2023 [...] toe (03/11/2015), 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 Hospital Course Significant Findings Patient has decided [...] 56.9 % Lymph Auto - 22.5 % [place] Auto - 7.2 % Eos Auto - 12.7 % Basophil Auto - 0.7 % Neutro Absolute - 5.2 E9/L Lymph Absolute - 2.1 E9/L [place] Absolute - 0.7 E9/L Eos Absolute - [...] - 271 mg/dL POC Device SN - [id number] POC User ID - [id number] POC Username - GORDON SEGOVIA CBC w/ [...] Procalcitonin PT & PTT Rapid COVID Antigen ([facility]) Respiratory Panel by PCR Troponin 0 Hr. Troponin 3 Hr. Troponin 6 Hr. Troponin 9 Hr. UA With Cult Reflex CTA Chest LE Venous Duplex US Bila (more content not included)...[facility] HospitalComment on above:Result Comment: Electronically Signed By: Tia WU, The Orthopedic Specialty Hospitalbobby\.br\Date and Time Signed: 02/04/23 16:56 [id number] NoteBasic Information Admit Date/Time:02/04/2023 00:26 Chief Complaint [...] eye contact Lab Results WBC: 9.2 E9/L (02/03/23 19:01:00) RBC: 4 E12/L Low (11/) HGB: 11.5 gm/dL Low (02/03/23:00) Hct: 34.6 % Low (02/03/23) MCV: 86.6 fL (02/03/23:00) MCH: 28.8 pg (02/03/23:00) MCHC: 33.2 gm/dL (02/03/23:00) RDW: 14.5 % High (02/03/23:00) Platelet: 195 E9/L (02/03/23:) MPV: 8.8 fL (02/03/23) Neutro Auto: 56.9 % (02/03/23) Lymph Auto: 22.5 % (02/03/23) [place] Auto: 7.2 % (02/03/23) Eos Auto: 12.7 % High (02/03/23) Basophil Auto: 0.7 % (02/03/23) Neutro Absolute: 5.2 E9/L (02/03/23:) Lymph Absolute: 2.1 E9/L (02/03/23) [place] Absolute: 0.7 E9/L (02/03/23:) Eos Absolute: 1.2 E9/L High (02/03/23) Basophil Absolute: 0.1 E9/L (02/03/23) PT: 11.1 second(s) (02/03/23:) INR: 1 (02/03/23:) PTT: 40.2 second(s) High (02/03/23:00) D-Dimer: 1442 ng/mL FEU Critical (02/03/23:00) Glucose Lvl: 170 mg/dL (02/03/23::00) BUN: 55 mg/dL High (02/03/23::00) Creatinine: 1.7 mg/dL High (02/03/23:00) eGFR: 44 mL/min/1.73 m2 Low (02/03/23:01:00) BUN/Creat Ratio: 32 High (02/03/23::00) Sodium Lvl: 135 mmol/L (02/03/23::00) Potassium Lvl: 5.2 mmol/L (02/03/23::00) Chloride: 107 mmol/L (02/03/23::00) CO2: 23 mmol/L (02/03/23::00) AGAP: 10 mEq/L (02/03/23::00) Calcium Lvl: 9.4 mg/dL (02/03/23::00) Troponin: 9 pg/mL Low (02/04/23:35:00) BNP: 21 pg/mL (02/03/23::00) Glucose Cap: 157 mg/dL High (02/03/23 20:11:00) POC Device SN: [id number] (02/03/23 20:11:00) POC User ID: [id number] (02/03/23 20:11:00) POC Username: RIVKA CIFUENTES (02/03/23 20:11:00) UA Spec Desc: Clean Catch (02/03/23 20:25:00) UA Color: Yellow2 (02/03/23 20:25:00) UA Clarity: Slightly Cloudy3 Abnormal (02/03/23:25:00) UA Spec Grav: 1.020 (02/03/23 20:25:00) UA pH: 6.0 (02/03/23 20:25:00) UA Protein: NEGATIVE1 (02/03/23 20:25:00) UA Glucose: NEGATIVE1 (02/03/23 20:25:00) UA Ketones: NEGATIVE1 (02/03/23 (more content not included)...[facility]:Result Comment: Electronically Signed By: Theodora Laurent MD\.br\Date and Time Signed: 02/04/23 02:11 [id number] NoteHNO ID: [id number] Author: Chelsey Vann APRN.SUZY Service: ? Author Type: Nurse Practitioner Type: Progress Notes Filed: 01/07/2023 4:14 PM Note Text: SCS assessed by [employer] rep Chelsey Vann APRN.CNPMarymount Hospital10-09-2023 Evaluation note* Encounter Date Diagnosis Assessment Notes [...] Continue statins. Monitor LFTs and lipid profile. [employer] Other 10-02-2023 Evaluation + Plan note Diagnostic Tests Pending * PTH Intact 12/10/22 [facility]09-12-2023 NoteHNO ID: [id number] Author: Elba Henry PA-C Service: ? Author Type: Physician Research Associate Type: Progress Notes Filed: 11/20/2022 11:59 AM Note Text: Pain Management Follow up Spinal Cord Simulator Implantation Altagracai Conway is in the office following implantation [...] 3 months or sooner if needed. Elba Hnery PA-C November 20[facility]09-[facility] Miscellaneous Notes* Telephone Encounter - Adriane Nicholson RN - 11/16/2022 11:33 AM EDT DATE OF SERVICE: 11/13/2022 PATIENT'S PHONE NUMBERS: [phone] (home) PROVIDER: Dr. Ortega PROCEDURE: Placement of [...] instructions were reviewed andthe patient voiced understanding. Altagracia Conway was discharged home in stable condition. Jordan Ortega, DO Pain Management November 13, 2022 See Telephone encounter dated 11/16/2022 at 8:29am documented in this encounterCincinnati Shriners Hospital09-05-2023 NoteHNO ID: [id number] Author: Shelley Sandoval RN Service: Nursing Author Type: Registered Nurse Type: Nursing Progress Note Filed: 11/13/2022 11:30 AM Note Text: 1110 Customer Relations Advisor from implant company here, adjusting stimulator accordinglyMassachusetts Eye & Ear [id number] Miscellaneous Notes* Telephone Encounter - Kristen Templeton LPN - 11/09/2022 2:10 PM EDT Spoke with pt this am, seen tele enc 11/09/2022. * Telephone Encounter - Zari Chapman LPN - 11/08/2022 5:17 PM EDT Called spoke with patient, scheduled for follow up visit with Marilyn Henry PA-C in [place] on @ 11:00am. Please call tomorrow with reminder unable to write down. * Telephone Encounter - Aileen Fox - 11/08/2022 9:17 AM EDT Please schedule follow up office visit for 1 week after 11/13. * Telephone Encounter - Aileen Fox - 11/08/2022 8:16 AM EDT SCS PERMANENT PLACEMENT MEDALTAGRACIA DYER [phone] [facility] 11/13 [employer] REP EMAILED PRE ADMISSION TESTING [...] was advised that they will require a fence post driver on the day of their procedure, and procedure will be cancelled if they arrive without a responsible adult to transport them home from the procedure. Patient advised that all medication management instructions prior to procedure will need addressed by clinical staff. Patient expresses understanding with no further questions or concerns at this time. Patient transferred to [facility] scheduling line to authorize procedure, or greenkyat appointment made. documented in this encounterCincinnati Shriners Hospital09-01-2023 Miscellaneous Notes* Telephone Encounter - Kristen Templeton [...] at 11 am with Dolly at the [facility] Pain Management Office. Please notify the SCS Rep of the post op appt. Pt verbalized understanding of above. Pt instructed to call with any questions or concerns. documented in this encounterCincinnati Shriners Hospital08-30-2023 NoteHNO ID: [id number] Author: Jordan Ortega, DO Service: ? Author [...] cord stimulation implantation. Jordan Ortega DO November 07[facility]08-30-[facility] History of Present illness Narrative* Jordan Ortega DO - 11/07/2022 5:00 PM EDT [facility] Date: 11/07/2022 Name: Altagracia Conway [...] DO November 07, 2022 documented in this encounterCincinnati Shriners Hospital08-11-2023 History and physical note * Teetee Yang [...] ECP 11/04/2009 [facility] INSJ IO LENS PROSTH W/O ECP 11/11/2009 Performed by MARK BROWN at [facility] TORO FAMILY HISTORY Problem Relation Age of Onset [...] Taking Yes blood-glucose sensor (DEXCOM G7 SENSOR [facility]) 1 Each. Taking Yes insulin aspart U-100 [...] Wheezing Cardiovascular: +HTN, HLD Negative for Recent CT, Angina, Arrhythmia, CAD, Chest Pain, CHF, DVT/PE [...] +pancreatic cancer s/p whipple and adjuvant chemotherapy (2016) Psych: +MDD- controlled on medication Musculoskeletal: See [...] unspecified whether stage 3a or 3b CKD ([facility]) CMP from 07/14/21 demonstrated BUN 39, Cr 1.4, and GFR 50. Follows with kidney medicine outside [facility]. Will get repeat CMP today. CMP demonstrates BUN 45, Cr 1.68, and GFR 44. Chronic and stable. 7. Malignant neoplasm of pancreas, unspecified location of malignancy ([facility]) 2016 s/p open Whipple and adjuvant chemotherapy. Remission. 8. Chronic obstructive pulmonary disease, unspecified COPD type ([facility]) PCP following. Uses Symbicort and albuterol inhalers [...] 10/19/2022 TIME: 11:57 AM documented in this encounterCincinnati Shriners Hospital08-10-2023 Instructions* Patient Instructions* Teetee Yang PA-C - 10/18/2022 1:47 PM EDT PATIENT PREOPERATIVE INSTRUCTIONS Jordan, Jordan E, DO has scheduled you for your procedure at this surgery center: [facility]: [phone] --[address], [place] [address]. Lab work ordered today, recommended to be [...] Procedures: - YOU MUST HAVE A RESPONSIBLE GERM DRIER TAKE YOU HOME. A CHARGE HAND OR YARD COUPLER CANNOT BE MADE A RESPONSIBLE GERM DRIER. - We recommend that a responsible person stays with you overnight to take care of you. - You cannot stay in a hotel alone after outpatient surgery. You will not be permitted to have yoursurgery, if you do not have someone to take care of you. If you already have an Advance Directive, please fax a copy to [phone] or email to for it to be [...] day. Teetee Yang PA-C documented in this encounterCincinnati Shriners Hospital07-11-2023 Miscellaneous Notes* Telephone Encounter - Aileen Fox - 09/18/2022 9:21 AM EDT SCS TRIAL [employer] JORDAN ANDERSON DM Spoke to patient. Patient declines scheduling at this time. Just started back to work at a new job. documented in this encounterCincinnati Shriners Hospital06-30-2023 NoteHNO ID: [id number] Author: Guru Osorio, PhD Service: ? Author Type: Psychologist Type: Progress Notes Filed: 09/11/2022 5:01 PM Note Text: [facility] PAIN MANAGEMENT BEHAVIORAL MEDICINE EVALUATION REFERRING PHYSICIAN: Jordan Ortega DO ATTENDING PHYSICIAN: Guru Osorio, PHD Altagracia Conway PATIENT TYPE: C : 1955 DATE OF SERVICE: September 07, 2022 IDENTIFYING INFORMATION Altagracia Conway is a 66 year old male from [place], [place] who was referred for evaluation by [...] PAST SURGICAL HISTORY Procedure Laterality Date X[facility]SL [facility] RMVL INSJ IO LENS PROSTH W/O ECP 11/04/09 Performed by MARK BROWN at [facility] XCAPSL [facility] RMVL INSJ IO LENS PROSTH W/O ECP 11/11/09 Performed by MARK BROWN at [facility] RELEVANT MEDICAL HISTORY He has had his right great toe amputated. He has just begun treatment with Dr. Ortega. He has not had physical therapy, nor has he seen a psychologist nor psychiatrist for pain management; however he has a history of depression for which she sees a psychiatrist every 3 months at [facility]. He has taken medication without relief and [...] 3 children now grown, all living in [place], 2 sons, 1 a police detention attendant, 1 in construction, and a daughter who is kind of a lost case. He lives alone with 8 steps to his apartment. He is not involved in a re (more content not included)...[facility]06-30-2023 History of Present illness Narrative* Guru Osorio, PhD - 09/07/2022 1:00 PM EDT [facility] PAIN MANAGEMENT BEHAVIORAL MEDICINE EVALUATION REFERRING PHYSICIAN: Jordan Ortega DO ATTENDING PHYSICIAN: Guru Osorio, PHD Altagracia Conway PATIENT TYPE: [facility] : 1955 DATE OF SERVICE: September 07, 2022 IDENTIFYING INFORMATION Altagracia Conway is a 66 year old male from [place], [place] who was referred for evaluation by [...] PAST SURGICAL HISTORY Procedure Laterality Date X[facility]SL [facility] RMVL INSJ IO LENS PROSTH W/O ECP 11/04/09 Performed by MARK BROWN at [facility] XCAPSL [facility] RMVL INSJ IO LENS PROSTH W/O ECP 11/11/09 Performed by MARK BROWN at [facility] RELEVANT MEDICAL HISTORY He has had his right great toe amputated. He has just begun treatment with Dr. Ortega. He has not had physical therapy, nor has he seen a psychologist nor psychiatrist for pain management; however hehas a history of depression for which she sees a psychiatrist every 3 months at [facility]. 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 He notes his abhi mccormacker has a drug problem and his granddaughter is only 15 years old had a baby in November 30 and he ended up with custody on and off for a while. They are now in foster care. She also has 7-dhim-vwdrhqwh who are with her. 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 3. He is aware [...] He does have3 adult children in the [place] area, a son who is a police detention attendant, another son in construction, and a daughter [...] indicated. Guru Osorio, PHD documented in this encounterCincinnati Shriners Hospital06-05-2023 NoteHNO ID: [id number] Author: Jordan Ortega, DO Service: ? Author Type: Physician Type: Progress Notes Filed: 08/13/2022 12:04 PM Note Text: [facility] Initial Evaluation August 13, 2022 This appointment was requested by Dr Blas for my medical opinion regarding the evaluation and management of the patient's Altagracia Conway problems, and my final recommendations will be communicated to the requesting health care provider by way of the shared medical record for internal providers or letter via the [employer] for external providers. 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 Appeals Officer: No Passive conservative therapy lasting 6 weeks [...] and review of sy (more content not included)...[facility]06-05-2023 History of Present illness Narrative* Jordan Ortega, [...] for internal providers or letter via the [employer] for external providers. SUBJECTIVE: Altagracia Conway a 66 year old [facility], accompanied by self only, [...] Mitigated by walking. Current treatments and response: Ruby 150 mg once daily Response to previous treatments: None Alcohol Abuse - No Drug Abuse - No Current Anticoagulant Therapy: No Sleep Disturbance: Yes: Difficulty falling asleep. and Difficulty staying asleep. No past medical history on file. 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 Appeals Officer: No Passive conservative therapy lasting 6 weeks [...] which included preparing to see the patient, ifnd-ae-hjhw patient care, completing clinical documentation, performing a medically appropriate examination, counseling and educating the patient/family/caregiver, ordering medications, tests, or p rocedures, and communicating with other HCPs (not separately reported). Jordan Ortega DO August 13, 2022 documented in this encounterCincinnati Shriners Hospital04-03-2023 Evaluation note* Encounter Date Diagnosis Assessment Notes [...] We will check PTH and vitamin D. [employer] Other 03-09-2023 Progress note Author Margaret Delgado [facility] May 17, 2022 6:42pm Note Date/Time May 17, 2022 10:5 6am [facility] [place] [id number] Hem/Onc Follow Up Note - OP Signed Patient: Altagracia Conway MR#: [id number] : 1955 Acct:[id number] Age/Sex: 66 / M Type: REG RCR [...] 08/11/2021: 6 week followup--07/27/2021 CT scan at [facility] was concerning for recurrence (nonspecific mesenteric [...] his PCP has referred him to a bread jockey and he hasan upcoming appt in March [...] meeting tomorrow (will have to set up [facility] inpatient duckworth eval to d/c 5FU pump Saturday). Otherwise no concerns--f/u with me in one month for tumor markers and exam--continue 100% dose. PREVIOUS HISTORY: This is a now 66-year-old male who originally presented [facility] with nausea, vomiting, diarrhea in October 2019 [...] care. He was seen by gastroenterology at [facility] in late December complaining of increased epigastric pain. He also was noted to have about 20 pounds of weight loss and worsening diabetes. January 10 he had repeat endoscopic ultrasound with a masslike region in the pancreatic head and again brushings showed atypical cells with fine-needle aspiration again with atypical cells suspicious for cancer. CT abdomen pelvis at [facility] 01/22/2020 revealed no distant metastatic disease. IMPRESSION: [...] insulin managed by Dr. Tiki Dockery at [facility]. 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 DIAGNOSIS: 1. T2 N0 M0 resected pancreatic [...] mg PO TID 07/07/21 [History Confirmed 05/17/22] pqlqdc-kapqgjie-ryfvzen 36,000-114,000-180,000 unit capsule,delay rel (Creon) 1 cap [...] 12/28/21 10:17 KB (Rec: 12/28/21 10:19 KB [id number]) Distress Screening Distress score of 4 or [...] % (Auto) 54.8, Lymph % (Auto) 28.8, [place] % (Auto) 8.0, Eos % (Auto) 7.4, Baso % (Auto) 1.0, Nucleat RBC Rel Count 0.1, Neut # (Auto) 5.8, Lymph # (Auto) 3.0, [place] # (Auto) 0.8, Eos # (Auto) 0.8 [...] is recommended. Impression dictated by: Rey Dove Jr. D.OJohn05/15/2022 3:32 PM Assessment and Plan - [...] his PCP has referred him to a bread jockey andhe has an upcoming appt in March [...] his last visit. 08/11/2021: CT abdomen/pelvis at [facility] in mid July showed mesenteric stranding [...] Diabetes mellitus type: type 2 Diabetes mellitus senior care insulin use: unspecified termite inspector insulin use status Qualified Code(s): E11.40 - [...] for coordination of care (as documented) and opyk-sq-fcqm counseling of patient and/or family. Dictated By: Margaret Delgado MD DD/ [id number] Signed By: <Electronically signed by MD Margaret Delgado> 05/17/22 1842 [facility] Work Phone: [phone]) 345-737501-18-2023 NoteHNO ID: [id number] Author: Alexander Velazquez APRN.HANDLE ASSEMBLER Service: ? Author Type: Nurse Specialist Type: Progress Notes Filed: 03/29/2022 1:19 PM Note Text: [facility] NOTE NAME: GURMEET CONWAY NO.: [id number] DATE OF SERVICE: 03/28/2022 [facility] DATE OF : 1955 REASON FOR VISIT: The patient is a resident of [facility]. This is a discharge visit for diabetes, hypertension, and other medical concerns. The patient was admitted to [facility] from [facility] after having a syncopal episode with injury. The patient had a short stay at [facility] [place]. The patient is demanding to leave today. [...] spent doing discharge gr (more content not included)...[facility]01-18-2023 History of Present illness Narrative* Alexander Velazquez APRN.HANDLE ASSEMBLER - 03/28/2022 12:00 AM EST [facility] NOTE NAME: ROSENDA CONWAYGEOVANNI NO.: [id number] DATE OF SERVICE: 03/28/2022 [facility] DATE OF : 1955 REASON FOR VISIT: The patient is a resident of [facility]. This is a discharge visit for diabetes, hypertension, and other medical concerns. The patient was admitted to [facility] from [facility] after having a syncopal episode with injury. The patient had ashort stay at [facility] [place]. The patient is demanding to leave today. [...] therapy and has been up walking in [facility]. The patient states no concerns with [...] greater than 31 minutes. DICTATED BY: SUZY Baker/Aditya JOB# [id number] cc:[facility] documented in this encounterCincinnati Shriners Hospital01-16-2023 NoteHNO ID: [id number] Author: Alexander Velazquez APRN.TAD Service: ? Author Type: Nurse Specialist Type: Progress Notes Filed: 03/28/2022 9:19 AM Note Text: [facility] NOTE NAME: GURMEET CONWAY NO.: [id number] DATE OF SERVICE: 03/26/2022 [facility] DATE OF : 1955 REASON FOR VISIT: The patient is a resident of [facility]. This is a skilled visit for [...] of breath. No fever, chills, or nausea. States has been eating well. States has had [...] following with therapy services. DICTATED BY: SUZY Baker JOB# [id number] cc:[facility]01-16-2023 History of Present illness Narrative* Alexander Velazquez APRN.HANDLE ASSEMBLER - 03/26/2022 12:00 AM EST [facility] NOTE NAME: MANGURMEET NO.: [id number] DATE OF SERVICE: 03/26/2022 [facility] DATE OF : 1955 REASON FOR VISIT: The patient is a resident of [facility]. This is a skilled visit for [...] therapy services. DICTATED BY: SUZY Baker/Aditya JOB# [id number] cc:[facility] documented in this encounterCincinnati [facility]01-13-2023 NoteHNO ID: [id number] Author: Zion Clifford Service: ? Author Type: Physician Type: Progress Notes Filed: 03/26/2022 7:38 PM Note Text: [facility] NOTE NAME: CONWAYGURMEET NO.: [id number] DATE OF SERVICE: 03/23/2022 [facility] DATE OF : 1955 New Patient History and Physical HISTORY OF PRESENT ILLNESS: The patient is a 66-year-old male who is admitted to us from [facility] with a diagnosis of closed head [...] denies alcohol abuse. 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 He has been living in an apartment [...] level - he may (more content not included)...[facility]01-13-2023 History of Present illness Narrative* Zion Clifford - 03/23/2022 12:00 AM EST [facility] NOTE NAME: MANGURMEET NO.: [id number] DATE OF SERVICE: 03/23/2022 [facility] DATE OF : 1955 New Patient History and Physical HISTORY OF PRESENT ILLNESS: The patient is a 66-year-old male who is admitted to us from [facility] with a diagnosis of closed head [...] denies alcohol abuse. 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 He has been living in an apartment [...] therapy. DICTATED BY: MD LENORE Dorman/Aditya JOB# [id number] cc:[facility] documented in this encounterCincinnati [facility]12-08-2022 Progress note Author Maura Sands [facility] February 15, 2022 11:46am Note Date/Time February 15, 2022 1 1:28am [facility] [place] [address] Hem/Onc Follow Up Note - OP Signed Patient: Altagracia Conway MR#: [id number] : 1955 Acct:[id number] Age/Sex: 66 / M Type: REG RCR [...] 08/11/2021: 6 week followup--07/27/2021 CT scan at [facility] was concerning for recurrence (nonspecific mesenteric [...] his PCP has referred him to a bread jockey and he hasan upcoming appt in March [...] meeting tomorrow (will have to set up [facility] inpatient duckworth eval to d/c 5FU pump Saturday). Otherwise no concerns--f/u with me in one month for tumor markers and exam--continue 100% dose. PREVIOUS HISTORY: This is a now 66-year-old male who originally presented to [facility] with nausea, vomiting, diarrhea in October 2019 [...] care. He was seen by gastroenterology at [facility] in late December complaining of increased epigastric pain. He also was noted to have about 20 pounds of weight loss and worsening diabetes. January 10 he had repeat endoscopic ultrasound with a masslike region in the pancreatic head and again brushings showed atypical cells with fine-needle aspiration again with atypical cells suspicious for cancer. CT abdomen pelvis at [facility] 01/22/2020 revealed no distant metastatic disease. IMPRESSION: [...] insulin managed by Dr. Tiki Dockery at [facility]. 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 DIAGNOSIS: 1. T2 N0 M0 resected pancreatic [...] history of asthma, hives, eczema or rhinitis. [facility] - Medical History Medical History: Medical [...] mg PO TID 07/07/21 [History Confirmed 02/15/22] akmtfp-iefpjduh-lpwtjhw 36,000-114,000-180,000 unit capsule,delay rel (Creon) 1 cap [...] Distress Screen Results: RN Distress Screening Start: 02/01/21 13:45 Freq: Q30D Status: Active Protocol: Document 12/28/21 10:17 KB (Rec: 12/28/21 10:19 KB [id number]) Distress Screening Distress score of 4 or [...] % (Auto) 69.9, Lymph % (Auto) 19.2, [place] % (Auto) 6.1, Eos % (Auto) 3.6, Baso % (Auto) 1.2, Nucleat RBC Rel Count 0.1, Neut # (Auto) 8.0 H, Lymph # (Auto) 2.2, [place] # (Auto) 0.7, Eos # (Auto) 0.4, [...] long standing diabetes). He is currently taking [id number] mg daily with no improvement. --He is [...] his PCP has referred him to a bread jockey andhe has an upcoming appt in March [...] his last visit. 08/11/2021: CT abdomen/pelvis at [facility] in mid July showed mesenteric stranding [...] Diabetes mellitus type: type 2 Diabetes mellitus termite inspector insulin use: unspecified senior care insulin use status Qualified Code(s): E11.40 - [...] for coordination of care (as documented) and vjyp-eu-zpdg counseling of patient and/or family. Dictated By: Maura Sands APRN DD/ 26 Signed By: <Electronically signed by NYLA Sands> 02/15/22 1146 [facility] Work Phone: [phone] Progress note Author Brent Shaikh [facility] December 12, 2021 3:37pm Note Date/Time December 12, 2021 3: 25pm [facility] [place] [place] [address] Hem/Onc Follow Up Note - OP Signed Patient: Altagracia Conway MR#: [id number] : 1955 Acct:[id number] Age/Sex: 66 / M Type: REG RCR [...] history of asthma, hives, eczema or rhinitis. [facility] - Medical History Medical History: Medical [...] mg PO TID 07/07/21 [History Confirmed 12/12/21] pwhbvj-xkineebz-ybvviof 36,000-114,000-180,000 unit capsule,delay rel (Creon) 1 cap [...] hopeless,Feeling uncertain about the future Spiritual or Faith Concerns: Relating to a higher being Distress [...] Diabetes mellitus type: type 2 Diabetes mellitus senior care insulin use: unspecified termite inspector insulin use status Qualified Code(s): E11.40 - [...] for coordination of care (as documented) and dmil-zh-grjd counseling of patient and/or family. Dictated By: Brent Shaikh MD DD/ 1521 Signed By: <Electronically signed by Brent Shaikh MD> 12/12/21 1537 [facility] Work Phone: 1(461) 972-391909-07-2022 Progress note Author Margaret Delgado [facility] November 15, 2021 5:59pm Note Date/Time November 15, 2021 10:29am [facility] [place] [address] Hem/Onc Follow Up Note - OP Signed Patient: Altagracia Conway MR#: [id number] : 1955 Acct:[id number] Age/Sex: 66 / M Type: REG RCR [...] 08/11/2021: 6 week followup--07/27/2021 CT scan at [facility] was concerning for recurrence (nonspecific mesenteric [...] his PCP has referred him to a bread jockey and he hasan upcoming appt in March [...] recommend increasing Ativan totwice daily with his Filippo and Reinier. His PFTs are consistent with [...] meeting tomorrow (will have to set up [facility] inpatient duckworth eval to d/c 5FU pump Saturday). Otherwise no concerns--f/u with me in one month for tumor markers and exam--continue 100% dose. PREVIOUS HISTORY: This is a now 66-year-old male who originally presented to [facility] with nausea, vomiting, diarrhea in October 2019 [...] care. He was seen by gastroenterology at [facility] in late December complaining of increased epigastric pain. He also was noted to have about 20 pounds of weight loss and worsening diabetes. January 10 he had repeat endoscopic ultrasound with a masslike region in the pancreatic head and again brushings showed atypical cells with fine-needle aspiration again with atypical cells suspicious for cancer. CT abdomen pelvis at [facility] 01/22/2020 revealed no distant metastatic disease. IMPRESSION: [...] insulin managed by Dr. Tiki Dockery at [facility]. 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 DIAGNOSIS: 1. T2 N0 M0 resected pancreatic [...] mg PO TID 07/07/21 [History Confirmed 11/15/21] qhcpst-untnutod-crndxiv 36,000-114,000-180,000 unit capsule,delay rel (Creon) 1 cap [...] hopeless,Feeling uncertain about the future Spiritual or Faith Concerns: Relating to a higher being Distress [...] % (Auto) 58.6, Lymph % (Auto) 27.7, [place] % (Auto) 8.0, Eos % (Auto) 4.9, Baso % (Auto) 0.8, Neut # (Auto) 5.5, Lymph # (Auto) 2.6, [place] # (Auto) 0.7, Eos# (Auto) 0.5 H, [...] his PCP has referred him to a bread jockey andhe has an upcoming appt in March [...] his last visit. 08/11/2021: CT abdomen/pelvis at [facility] in mid July showed mesenteric stranding [...] Diabetes mellitus type: type 2 Diabetes mellitus termite inspector insulin use: unspecified senior care insulin use status Qualified Code(s): E11.40 - [...] for coordination of care (as documented) and lgmb-nh-jzxc counseling of patient and/or family. Dictated By: Margaret Delgado MD DD/ 1029 Signed By: <Electronically signed by MD Margaret Delgado> 11/15/21 2742 [facility] Work Phone: 1([phone]) 114-592208-17-2022 Evaluation note* Encounter Date Diagnosis Assessment Notes Treatment Notes Treatment Clinical Notes Oct, Cirrhosis (ICD-10 - K74.60) Oct, History of hepatitis C (ICD-10 - Z86.19) Oct, Pancreatic cancer (ICD-10 - C25.9) WILL ORDER LABS AT THIS TIME. Oct, Fatty liver (ICD-10 - K76.0) PATIENT ENCOURAGED TO START VITAMIN E AND MILK THISTLE [employer] Other 06-22-2022 Evaluation note* Encounter Date Diagnosis Assessment Notes Treatment Notes Treatment Clinical Notes Aug, Cirrhosis (ICD-10 - K74.60) Aug, History of pancreatic cancer (ICD-10 - Z85.07) Aug, History of hepatitis C (ICD-10 - Z86.19) [employer] Other 06-06-2022 Evaluation note* Encounter Date Diagnosis Assessment Notes Treatment Notes Treatment Clinical Notes Aug, Pain in right foot (ICD-10 - M79.671) [employer] Other 06-04-2022 Progress note Author Margaret Delgado [facility] August 12, 2021 5:17pm Note Date/Time August 11, 2021 11:35 am [facility] [place] [address] Hem/Onc Follow Up Note - OP Signed Patient: Altagracia Conway MR#: [id number] : 1955 Acct:[id number] Age/Sex: 65 / M Type: REG RCR Copies to: DO Nasim Allen MD~ Subjective Date/Time of Service: Date of Service: 08/11/2021 Time of Service: 11:34 Chief Complaint: PAtient is here today for a 2 month follow up visit and to go over pet scan. No new concenrs HPI: 08/11/2021: 6 week followup--07/27/2021 CT scan at [facility] was concerning for recurrence (nonspecific mesenteric [...] his PCP has referred him to a bread jockey and he hasan upcoming appt in March [...] meeting tomorrow (will have to set up [facility] inpatient duckworth eval to d/c 5FU pump Saturday). Otherwise no concerns--f/u with me in one month for tumor markers and exam--continue 100% dose. PREVIOUS HISTORY: This is a 64-year-old male who originally presented to [facility] with nausea, vomiting, diarrhea in October 2019 [...] care. He was seen by gastroenterology at [facility] in late December complaining of increased epigastric pain. He also was noted to have about 20 pounds of weight loss and worsening diabetes. January 10 he had repeat endoscopic ultrasound with a masslike region in the pancreatic head and again brushings showed atypical cells with fine-needle aspiration again with atypical cells suspicious for cancer. CT abdomen pelvis at [facility] 01/22/2020 revealed no distant metastatic disease. IMPRESSION: [...] insulin managed by Dr. Tiki Dockery at [facility]. 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 DIAGNOSIS: 1. T2 N0 M0 resected pancreatic [...] Negative for environmental allergies and food allergies. [facility] - History Attestation statement: The following [...] hopeless,Feeling uncertain about the future Spiritual or Faith Concerns: Relating to a higher being Distress [...] % (Auto) 58.9, Lymph % (Auto) 29.0, [place] % (Auto) 6.3, Eos % (Auto) 4.8, Baso % (Auto) 1.0, Neut # (Auto) 5.5, Lymph # (Auto) 2.7, [place] # (Auto) 0.6, Eos# (Auto) 0.4, Baso [...] his PCP has referred him to a bread jockey andhe has an upcoming appt in March [...] his last visit. 08/11/2021: CT abdomen/pelvis at [facility] in mid July showed mesenteric stranding [...] Diabetes mellitus type: type 2 Diabetes mellitus senior care insulin use: unspecified senior care insulin use status Qualified Code(s): E11.40 - [...] for coordination of care (as documented) and bfuo-ih-rspo counseling of patient and/or family. Dictated By: Margaret Delgado MD DD/ [id number] Signed By: <Electronically signed by MD Margaret Delgado> 08/12/21 0090 [facility] Work Phone: [phone] 775-907905-09-2022 Evaluation note* Encounter Date Diagnosis Assessment Notes [...] gel as needed, he is encouraged to picker box operator Lidocaine over the counter creams. I will also add Amitriptyline 10-20 mg at HS. July, Other specified diabetes mellitus with diabetic neuropathy, unspecified (ICD-10 - E13.40) Continue Lyrica as prescribed by his PCP. July, Other chronic pain (ICD-10 - G89.29) Continue with current treatment plan. [employer] Other 04-11-2022 Progress note Author Maura Sands [facility] June 19, 2021 2:09pm Note Date/Time June 19, 2021 1:0 2pm [facility] [place] [id number] Hem/Onc Follow Up Note - OP Signed Patient: Altagracia Conway MR#: [id number] : 1955 Acct:[id number] Age/Sex: 65 / M Type: REG RCR [...] his PCP has referred him to a bread jockey and he hasan upcoming appt in March [...] meeting tomorrow (will have to set up [facility] inpatient duckworth eval to d/c 5FU pump Saturday). Otherwise no concerns--f/u with me in one month for tumor markers and exam--continue 100% dose. PREVIOUS HISTORY: This is a 64-year-old male who originally presented to [facility] with nausea, vomiting, diarrhea in October 2019 [...] care. He was seen by gastroenterology at [facility] in late December complaining of increased epigastric pain. He also was noted to have about 20 pounds of weight loss and worsening diabetes. January 10 he had repeat endoscopic ultrasound with a masslike region in the pancreatic head and again brushings showed atypical cells with fine-needle aspiration again with atypical cells suspicious for cancer. CT abdomen pelvis at [facility] 01/22/2020 revealed no distant metastatic disease. IMPRESSION: [...] insulin managed by Dr. Tiki Dockery at [facility]. 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 DIAGNOSIS: 1. T2 N0 M0 resected pancreatic [...] Negative for environmental allergies and food allergies. [facility] - Medical History Medical History: Medical [...] hopeless,Feeling uncertain about the future Spiritual or Faith Concerns: Relating to a higher being Distress Screening Total 8 Distress score of 4 or more discussed Yes with patient? Distress screening follow up: DEBRA Cmap patient navigator and Cathryn patient navigator notified. [...] his PCP has referred him to a bread jockey and he has an upcoming appt in [...] Diabetes mellitus type: type 2 Diabetes mellitus termite inspector insulin use: unspecified termite inspector insulin use status Qualified Code(s): E11.40 - [...] for coordination of care (as documented) and hjux-yb-ftat counseling of patient and/or family. Dictated By: Maura Sands APRN DD/ 7706 Signed By: <Electronically signed by NYLA Sands> 06/19/21 7826 [facility] Work Phone: 1([phone]) 309-548704-06-2022 Evaluation note* Encounter Date Diagnosis Assessment Notes Treatment Notes Treatment Clinical Notes Jun, Positive colorectal cancer screening using Cologuard test (ICD-10 - R19.5) [employer] Other 03-17-2022 Evaluation note* Encounter Date Diagnosis Assessment Notes Treatment Notes Treatment Clinical Notes May, Encounter for immunization (ICD-10 - Z23) Patient presents for COVID-19 vaccination BOOSTER. Pre-screening form answers evaluated with patient. Patient denies current illness or allergic reaction to component of COVID-19 vaccine. Patient provided with current copy of EUA. [employer] Other 02-25-2022 Progress note Author Margaret Delgado [facility] May 05, 2021 4:04pm Note Date/Time May 05, 2021 10:42am [facility] [place] [address] Hem/Onc Follow Up Note - OP Signed Patient: Altagracia Conway MR#: [id number] : 1955 Acct:[id number] Age/Sex: 65 / M Type: REG RCR Copies to: Tiki Dockery, DO Jose Martin Ramirez Jr, MD Karen Esposito, GARAGE CONSTRUCTION EQUIPMENT MECHANIC~ Subjective Date/Time of Service: Date of Service: [...] his PCP has referred him to a bread jockey and he has an upcoming appt in [...] delay, 2 weeks if treated Saturday. 05/25/2020: Altagarcia is here for cycle 4-day 1 adjuvant [...] meeting tomorrow (will have to set up [facility] inpatient duckworth eval to d/c 5FU pump Saturday). Otherwise no concerns--f/u with me in one month for tumor markers and exam--continue 100% dose. PREVIOUS HISTORY: This is a 64-year-old male who originally presented to [facility] with nausea, vomiting, diarrhea in October 2019 [...] care. He was seen by gastroenterology at [facility] in late December complaining of increased epigastric pain. He also was noted to have about 20 pounds of weight loss and worsening diabetes. January 10 he had repeat endoscopic ultrasound with a masslike region in the pancreatic head and again brushings showed atypical cells with fine-needle aspiration again with atypical cells suspicious for cancer. CT abdomen pelvis at [facility] 01/22/2020 revealed no distant metastatic disease. IMPRESSION: [...] insulin managed by Dr. Tiki Dockery at [facility]. 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 DIAGNOSIS: 1. T2 N0 M0 resected pancreatic [...] hopeless,Feeling uncertain about the future Spiritual or Faith Concerns: Relating to a higher being Distress [...] COMPARISON: 01/31/2021. CHEST FINDINGS: There is an Zjhwww-r-Ppif on the right with an internal jugular [...] his PCP has referred him to a bread jockey andhe has an upcoming appt in March 2021. 02/22/2021: Due to rising CA 19-9 level, SUZY Galindomiguel ordered CT chest, abdomen/pelvis. She was unable [...] Diabetes mellitus type: type 2 Diabetes mellitus senior care insulin use: unspecified termite inspector insulin use status Qualified Code(s): E11.40 - [...] for coordination of care (as documented) and wzdu-ka-atxg counseling of patient and/or family. Dictated By: Margaret Delgado MD DD/ 1038 Signed By: <Electronically signed by MD Margaret Delgado> 05/05/21 1604 [facility] Work Phone: 1([phone]) 351-455702-16-2022 Progress note Author Margaret Delgado [facility] April 26, 2021 5:39pm Note Date/Time April 26, 2021 10:17am [facility] [place] [address] Hem/Onc Follow Up Note - OP Signed Patient: Altagracia Conway MR#: [id number] : 1955 Acct:[id number] Age/Sex: 65 / M Type: REG RCR [...] his PCP has referred him to a bread jockey and he hasan upcoming appt in March [...] meeting tomorrow (will have to set up [facility] inpatient duckworth eval to d/c 5FU pump Saturday). Otherwise no concerns--f/u with me in one month for tumor markers and exam--continue 100% dose. PREVIOUS HISTORY: This is a 64-year-old male who originally presented to [facility] with nausea, vomiting, diarrhea in October 2019 [...] care. He was seen by gastroenterology at [facility] in late December complaining of increased epigastric pain. He also was noted to have about 20 pounds of weight loss and worsening diabetes. January 10 he had repeat endoscopic ultrasound with a masslike region in the pancreatic head and again brushings showed atypical cells with fine-needle aspiration again with atypical cells suspicious for cancer. CT abdomen pelvis at [facility] 01/22/2020 revealed no distant metastatic disease. IMPRESSION: [...] insulin managed by Dr. Tiki Dockery at [facility]. 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 DIAGNOSIS: 1. T2 N0 M0 resected pancreatic [...] hopeless,Feeling uncertain about the future Spiritual or Faith Concerns: Relating to a higher being Distress Screening Total 8 Distress score of 4 or more discussed Yes with patient? Distress screening follow up: DEBRA Camp patient navigator and Cathryn, patient navigator notified. pt refusing assistance at [...] % (Auto) 71.0, Lymph % (Auto) 19.2, [place] % (Auto) 5.8, Eos % (Auto) 3.5, Baso % (Auto) 0.5, Neut # (Auto) 7.0, Lymph # (Auto) 1.9, [place] # (Auto) 0.6, Eos# (Auto) 0.3, Baso [...] his PCP has referred him to a bread jockey and he has an upcoming appt in [...] Diabetes mellitus type: type 2 Diabetes mellitus termite inspector insulin use: unspecified senior care insulin use status Qualified Code(s): E11.40 - [...] for coordination of care (as documented) and ozsn-wt-gxdr counseling of patient and/or family. Dictated By: Margaret Delgado MD DD/ 1016 Signed By: <Electronically signed by MD Margaret Delgado> 04/26/21 1739 [facility] Work Phone: [phone] Progress note Author Margaret Delgado [facility] February 22, 2021 8:38pm Note Date/Time February 22, 2021 8:03pm [facility] [place] [place] [address] Hem/Onc Follow Up Note - OP Signed Patient: Altagracia Conway MR#: [id number] : 1955 Acct:[id number] Age/Sex: 65 / M Type: REG RCR [...] his PCP has referred him to a bread jockey and he hasan upcoming appt in March [...] for cycle 11 due to hospitalization on 09/10-11/2020 for suicidal ideation. He reported feeling [...] recommend increasing Ativan totwice daily with his Abijerely and Reinier. His PFTs are consistent with [...] meeting tomorrow (will have to set up [facility] inpatient duckworth eval to d/c 5FU pump Saturday). Otherwise no concerns--f/u with me in one month for tumor markers and exam--continue 100% dose. PREVIOUS HISTORY: This is a 64-year-old male who originally presented to [facility] with nausea, vomiting, diarrhea in October 2019 [...] care. He was seen by gastroenterology at [facility] in late December complaining of increased epigastric pain. He also was noted to have about 20 pounds of weight loss and worsening diabetes. January 10 he had repeat endoscopic ultrasound with a masslike region in the pancreatic head and again brushings showed atypical cells with fine-needle aspiration again with atypical cells suspicious for cancer. CT abdomen pelvis at [facility] 01/22/2020 revealed no distant metastatic disease. IMPRESSION: [...] insulin managed by Dr. Tiki Dockery at [facility]. 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 DIAGNOSIS: 1. T2 N0 M0 resected pancreatic [...] hopeless,Feeling uncertain about the future Spiritual or Faith Concerns: Relating to a higher being Distress [...] of iterative reconstruction technique. FINDINGS: A right Ukmnqk-a-Ydyc catheter is present. The heart is not [...] his PCP has referred him to a bread jockey andhe has an upcoming appt in March [...] Diabetes mellitus type: type 2 Diabetes mellitus senior care insulin use: unspecified senior care insulin use status Qualified Code(s): E11.40 - [...] for coordination of care (as documented) and qmsu-js-mdbi counseling of patient and/or family. Dictated By: Margaret Delgado MD DD/ 01 Signed By: <Electronically signed by MD Margaret Delgado> 02/22/212037 [facility] Work Phone: 1([phone]) 715-295911-18-2021 Progress note [facility] 26, 2021 3:28pm Note Date/Time January 26, 2021 2:59pm [facility] [place] [place] [address] Hem/Onc Follow Up Note - OP Signed Patient: Altagracia Conway MR#: [id number] : 1955 Acct:[id number] Age/Sex: 65 / M Type: REG RCR [...] his PCP has referred him to a bread jockey and he hasan upcoming appt in March [...] recommend increasing Ativan totwice daily with his Dailify and Tyshawnceycalta. His PFTs are consistent with asthma--reversible obstruction. [...] meeting tomorrow (will have to set up [facility] inpatient duckworth eval to d/c 5FU pump Saturday). Otherwise no concerns--f/u with me in one month for tumor markers and exam--continue 100% dose. PREVIOUS HISTORY: This is a 64-year-old male who originally presented to [facility] with nausea, vomiting, diarrhea in October 2019 [...] care. He was seen by gastroenterology at [facility] in late December complaining of increased epigastric pain. He also was noted to have about 20 pounds of weight loss and worsening diabetes. January 10 he had repeat endoscopic ultrasound with a masslike region in the pancreatic head and again brushings showed atypical cells with fine-needle aspiration again with atypical cells suspicious for cancer. CT abdomen pelvis at [facility] 01/22/2020 revealed no distant metastatic disease. IMPRESSION: [...] insulin managed by Dr. Tiki Dockery at [facility]. 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 DIAGNOSIS: 1. T2 N0 M0 resected pancreatic [...] Negative for environmental allergies and food allergies. [facility] - Medical History Medical History: Medical [...] hopeless,Feeling uncertain about the future Spiritual or Faith Concerns: Relating to a higher being Distress [...] % (Auto) 68.0, Lymph % (Auto) 21.4, [place] % (Auto) 6.7, Eos % (Auto) 3.1, Baso % (Auto) 0.8, Neut # (Auto) 5.2, Lymph # (Auto) 1.6, [place] # (Auto) 0.5, Eos # (Auto) 0.2, [...] his PCP has referred him to a bread jockey and he hasan upcoming appt in March [...] Diabetes mellitus type: type 2 Diabetes mellitus senior care insulin use: unspecified senior care insulin use status Qualified Code(s): E11.40 - [...] for coordination of care (as documented) and brvo-xy-eijx counseling of patient and/or family. Dictated By: Maura Sands APRN DD/ 1449 Signed By: <Electronically signed by NYLA Lorenzo Tomeka Wicho> 01/26/21 1528 [facility] Work Phone: 1([phone]) 928-412608-11-2021 Progress note Author Margaret Danny [facility] October 19, 2020 9:43pm Note Date/Time October 19, 2020 1: 51pm [facility] [place] [address] Hem/Onc Follow Up Note - OP Signed Patient: Altagracia Conway MR#: [id number] : 1955 Acct:[id number] Age/Sex: 65 / M Type: REG RCR [...] meeting tomorrow (will have to set up [facility] inpatient duckworth eval to d/c 5FU pump Saturday). Otherwise no concerns--f/u with me in one month for tumor markers and exam--continue 100% dose. PREVIOUS HISTORY: This is a 64-year-old male who originally presented to [facility] with nausea, vomiting, diarrhea in October 2019 [...] care. He was seen by gastroenterology at [facility] in late December complaining of increased epigastric pain. He also was noted to have about 20 pounds of weight loss and worsening diabetes. January 10 he had repeat endoscopic ultrasound with a masslike region in the pancreatic head and again brushings showed atypical cells with fine-needle aspiration again with atypical cells suspicious for cancer. CT abdomen pelvis at [facility] 01/22/2020 revealed no distant metastatic disease. IMPRESSION: [...] insulin managed by Dr. Tiki Dockery at [facility]. 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 DIAGNOSIS: 1. T2 N0 M0 resected pancreatic [...] Negative for environmental allergies and food allergies. [facility] - History Attestation statement: The following [...] 112.5 mg PO DAILY 15 Days #60cap 07/09/21 [Rx Confirmed 10/19/20] Objective - Height/Weight Height/Weight: [...] % (Auto) 57.2, Lymph % (Auto) 29.0, [place] % (Auto) 9.1, Eos % (Auto) 4.0, Baso % (Auto) 0.7, Neut # (Auto) 2.8, Lymph # (Auto) 1.4, [place] # (Auto) 0.4, Eos # (Auto) 0.2, [...] COMPARISON: 07/04/20, 06/15/20 Thyroid gland unremarkable. RIGHT Dudkgs-t-Xvst unchanged. Central airway is patent. Esophagus normal [...] Diabetes mellitus type: type 2 Diabetes mellitus termite inspector insulin use: unspecified termite inspector insulin use status Qualified Code(s): E11.40 - [...] for coordination of care (as documented) and bmnq-ii-hvsh counseling of patient and/or family. Dictated By: Margaret Delgado MD DD/ 1345 Signed By: <Electronically signed by MD Margaret Delgado> 10/19/20 214 [facility] Work Phone: [phone]) 725-764107-12-2021 Progress note Author Margaret Delgado [facility] September 19, 2020 1:53pm Note Date/Time September 19, 2020 10:5 2am [facility] [place] [address] Hem/Onc Follow Up Note - OP Signed Patient: Altagracia Conway MR#: [id number] : 1955 Acct:[id number] Age/Sex: 65 / M Type: REG RCR Copies to: MD Tiki Cazares DO Jeffrey M Hardacre, MD Katherine M McGraw, GARAGE CONSTRUCTION EQUIPMENT MECHANIC~ Subjective Date/Time of Service: Date of Service: [...] meeting tomorrow (will have to set up [facility] inpatient duckworth eval to d/c 5FU pump Saturday). Otherwise no concerns--f/u with me in one month for tumor markers and exam--continue 100% dose. PREVIOUS HISTORY: This is a 64-year-old male who originally presented to [facility] with nausea, vomiting, diarrhea in October 2019 [...] care. He was seen by gastroenterology at [facility] in late December complaining of increased epigastric pain. He also was noted to have about 20 pounds of weight loss and worsening diabetes. January 10 he had repeat endoscopic ultrasound with a masslike region in the pancreatic head and again brushings showed atypical cells with fine-needle aspiration again with atypical cells suspicious for cancer. CT abdomen pelvis at [facility] 01/22/2020 revealed no distant metastatic disease. IMPRESSION: [...] insulin managed by Dr. Tiki Dockery at [facility]. 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 DIAGNOSIS: 1. T2 N0 M0 resected pancreatic [...] % (Auto) 49.3, Lymph % (Auto) 35.0, [place] % (Auto) 11.0, Eos % (Auto) 3.8, Baso % (Auto) 0.9, Neut # (Auto) 1.8, Lymph # (Auto) 1.3, [place] # (Auto) 0.4, Eos # (Auto) 0.1, [...] with electrolyte repletion today andsending with Elad[facility]. Follow-up with me in [...] Diabetes mellitus type: type 2 Diabetes mellitus termite inspector insulin use: unspecified senior care insulin use status Qualified Code(s): E11.40 - [...] We will follow closely during FOLFIRINOX chemotherapy--dropped Sanazo since cycle 8. (7) Cancer cachexia Patient [...] for coordination of care (as documented) and cpmg-pw-qvki counseling of patient and/or family. Dictated By: Margaret Delgado MD DD/ 1051 Signed By: <Electronically signed by MD Margaret Delgado> 09/19/20 9747 [facility] Work Phone: [phone]) 660-404706-04-2021 Progress note Author Margaret Delgado [facility] August 12, 2020 6:23am Note Date/Time August 11, 2020 3:26p m [facility] [place] [id number] Hem/Onc Follow Up Note - OP Signed Patient: Altagracia Conway MR#: [id number] : 1955 Acct:[id number] Age/Sex: 64 / M Type: REG RCR [...] meeting tomorrow (will have to set up [facility] inpatient duckworth eval to d/c 5FU pump Saturday). Otherwise no concerns--f/u with me in one month for tumor markers and exam--continue 100% dose. PREVIOUS HISTORY: This is a 64-year-old male who originally presented to [facility] with nausea, vomiting, diarrhea in October 2019 [...] care. He was seen by gastroenterology at [facility] in late December complaining of increased epigastric pain. He also was noted to have about 20 pounds of weight loss and worsening diabetes. January 10 he had repeat endoscopic ultrasound with a masslike region in the pancreatic head and again brushings showed atypical cells with fine-needle aspiration again with atypical cells suspicious for cancer. CT abdomen pelvis at [facility] 01/22/2020 revealed no distant metastatic disease. IMPRESSION: [...] insulin managed by Dr. Tiki Dockery at [facility]. 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 DIAGNOSIS: 1. T2 N0 M0 resected pancreatic [...] % (Auto) 67.7, Lymph % (Auto) 26.9, [place] % (Auto) 2.8, Eos % (Auto) 2.0, Baso % (Auto) 0.6, Neut # (Auto) 4.8, Lymph # (Auto) 1.9, [place] # (Auto) 0.2, Eos # (Auto) 0.1, [...] Diabetes mellitus type: type 2 Diabetes mellitus senior care insulin use: unspecified senior care insulin use status Qualified Code(s): E11.40 - [...] for coordination of care (as documented) and qmti-it-nzau counseling of patient and/or family. Dictated By: Margaret Delgado MD DD/ 1525 Signed By: <Electronically signed by MD Margaret Delgado> 08/12/20 0623 [facility] Work Phone: [phone]) [phone] Progress note Author Margaret Delgado [facility] July 26, 2020 6:40am Note Date/Time July 25, 2020 2:27p m [facility] [place] [place] [address] Hem/Onc Follow Up Note - OP Signed Patient: Altagracia Conway MR#: [id number] : 1955 Acct:[id number] Age/Sex: 64 / M Type: REG RCR Copies to: DO Nasim Allen MD Katherine M McGraw, GARAGE CONSTRUCTION EQUIPMENT MECHANIC~ Subjective Date/Time of Service: Date of Service: [...] business meeting tomorrow (willhave to set up [facility] inpatient duckworth eval to d/c 5FU pump Saturday). Otherwise no concerns--f/u with me in one month for tumor markers and exam--continue 100% dose. PREVIOUS HISTORY: This is a 64-year-old male who originally presented to [facility] with nausea, vomiting, diarrhea in October 2019 [...] care. He was seen by gastroenterology at [facility] in late December complaining of increased epigastric pain. He also was noted to have about 20 pounds of weight loss and worsening diabetes. January 10 he had repeat endoscopic ultrasound with a masslike region in the pancreatic head and again brushings showed atypical cells with fine-needle aspiration again with atypical cells suspicious for cancer. CT abdomen pelvis at [facility] 01/22/2020 revealed no distant metastatic disease. IMPRESSION: [...] insulin managed by Dr. Tiki Dockery at [facility]. 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 DIAGNOSIS: 1. T2 N0 M0 resected pancreatic [...] % (Auto) 89.3, Lymph % (Auto) 7.1, [place] % (Auto) 2.8, Eos % (Auto) 0.5, Baso % (Auto) 0.3, Neut # (Auto) 31.5 H, Lymph # (Auto) 2.5, [place] # (Auto) 1.0 H, Eos # (Auto) [...] to 3.07 L or 77% predicted. The SJT41-43% is lownormal at 2.16 L/sec or 68% predicted. After administration of bronchodilators,there is no change in forced vital capacity with a significant 11% improvement in the FEV1 to 3.41 L or 85% predicted and a significant 29% improvement in the GLD22-83% to 2.77 L/sec or 88% predicted. LUNG [...] 1121 Dictated By: Romeo Shipley MD 07/21/20 5098 Assessment and Plan - TNM Staging Staging: [...] with electrolyte repletion today and sending with [employer] MD[facility]. Follow-up with me in 2 weeks and [...] Diabetes mellitus type: type 2 Diabetes mellitus termite inspector insulin use: unspecified termite inspector insulin use status Qualified Code(s): E11.40 - [...] for coordination of care (as documented) and ssvz-mx-ozwu counseling of patient and/or family. Dictated By: Margaret Delgado MD DD/ 1426 Signed By: <Electronically signed by MD Margaret Delgado> 07/26/20 0659 [facility] Work Phone: [phone] Progress note Author Margaret Delgado [facility] July 13, 2020 9:14am Note Date/Time July 13, 2020 8:46am [facility] [address] [place] [address] Hem/Onc Follow Up Note - OP Signed Patient: Altagracia Conway MR#: [id number] : 1955 Acct:[id number] Age/Sex: 64 / M Type: REG RCR [...] meeting tomorrow (will have to set up [facility] inpatient duckworth eval to d/c 5FU pump Saturday). Otherwise no concerns--f/u with me in one month for tumor markers and exam--continue 100% dose. PREVIOUS HISTORY: This is a 64-year-old male who originally presented to [facility] with nausea, vomiting, diarrhea in October 2019 [...] care. He was seen by gastroenterology at [facility] in late December complaining of increased epigastric pain. He also was noted to have about 20 pounds of weight loss and worsening diabetes. January 10 he had repeat endoscopic ultrasound with a masslike region in the pancreatic head and again brushings showed atypical cells with fine-needle aspiration again with atypical cells suspicious for cancer. CT abdomen pelvis at [facility] 01/22/2020 revealed no distant metastatic disease. IMPRESSION: [...] insulin managed by Dr. Tiki Dockery at [facility]. 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 DIAGNOSIS: 1. T2 N0 M0 resected pancreatic [...] Negative for environmental allergies and food allergies. [facility] - History Attestation statement: The following [...] % (Auto) 79.5, Lymph % (Auto) 14.4, [place] % (Auto) 5.1, Eos % (Auto) 0.7, Baso % (Auto) 0.3, Neut # (Auto) 9.7 H, Lymph # (Auto) 1.8, [place] # (Auto) 0.6, Eos # (Auto) 0.1, [...] no pericardial effusion. A right internal jugular Cwxpzq-w-Nfec is demonstrated. Axilla: There is no significant [...] Diabetes mellitus type: type 2 Diabetes mellitus senior care insulin use: unspecified termite inspector insulin use status Qualified Code(s): E11.40 - [...] for coordination of care (as documented) and wcud-tf-alxn counseling of patient and/or family. Dictated By: Margaret Delgado MD DD/ Signed By: <Electronically signed by MD Margaret Delgado> 07/13/2014 [facility] Work Phone: [phone]) [phone] Progress note Author Margaret Delgado [facility] July 06, 2020 9:09am Note Date/Time July 06, 2020 8:1 2am [facility] [place] [address] Hem/Onc Follow Up Note - OP Signed Patient: Altagracia Conway MR#: [id number] : 1955 Acct:[id number] Age/Sex: 64 / M Type: REG RCR Copies to: DO Nasim Allen MD Katherine M McGraw, APRN~ Subjective Date/Time of Service: Date of [...] meeting tomorrow (will have to set up [facility] inpatient duckworth eval to d/c 5FU pump Saturday). Otherwise no concerns--f/u with me in one month for tumor markers and exam--continue 100% dose. PREVIOUS HISTORY: This is a 64-year-old male who originally presented to [facility] with nausea, vomiting, diarrhea in October 2019 [...] care. He was seen by gastroenterology at [facility] in late December complaining of increased epigastric pain. He also was noted to have about 20 pounds of weight loss and worsening diabetes. January 10 he had repeat endoscopic ultrasound with a masslike region in the pancreatic head and again brushings showed atypical cells with fine-needle aspiration again with atypical cells suspicious for cancer. CT abdomen pelvis at [facility] 01/22/2020 revealed no distant metastatic disease. IMPRESSION: [...] insulin managed by Dr. Tiki Dockery at [facility]. 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 DIAGNOSIS: 1. T2 N0 M0 resected pancreatic [...] Negative for environmental allergies and food allergies. PMF - History Attestation statement: The following information [...] % (Auto) 90.4, Lymph % (Auto) 6.5, [place] % (Auto) 2.6, Eos % (Auto)0.2, Baso % (Auto) 0.3, Neut # (Auto) 26.4 H, Lymph # (Auto) 1.9, [place] # (Auto) 0.8, Eos # (Auto) 0.1, [...] no pericardial effusion. A right internal jugular Balomn-i-Udna is demonstrated. Axilla: There is no significant [...] Diabetes mellitus type: type 2 Diabetes mellitus termite inspector insulin use: unspecified senior care insulin use status Qualified Code(s): E11.40 - [...] for coordination of care (as documented) and jrqb-th-rxvp counseling of patient and/or family. Dictated By: Margaret Delgado MD DD/ 1 Signed By: <Electronically signed by MD Margaret Delgado> 07/06/20 0909 [facility] Work Phone: 1([phone]) 602-528504-12-2021 Progress note Author Margaret Delgado [facility] June 20, 2020 8:14pm Note Date/Time June 20, 2020 11: 47am [facility] [place] [address] Hem/Onc Follow Up Note - OP Signed Patient: Altagracia Conway MR#: [id number] : 1955 Acct:[id number] Age/Sex: 64 / M Type: REG RCR [...] meeting tomorrow (will have to set up [facility] inpatient duckworth eval to d/c 5FU pump Saturday). Otherwise no concerns--f/u with me in one month for tumor markers and exam--continue 100% dose. PREVIOUS HISTORY: This is a 64-year-old male who originally presented to [facility] with nausea, vomiting, diarrhea in October 2019 [...] care. He was seen by gastroenterology at [facility] in late December complaining of increased epigastric pain. He also was noted to have about 20 pounds of weight loss and worsening diabetes. January 10 he had repeat endoscopic ultrasound with a masslike region in the pancreatic head and again brushings showed atypical cells with fine-needle aspiration again with atypical cells suspicious for cancer. CT abdomen pelvis at [facility] 01/22/2020 revealed no distant metastatic disease. IMPRESSION: [...] insulin managed by Dr. Tiki Dockery at [facility]. 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 DIAGNOSIS: 1. T2 N0 M0 resected pancreatic [...] Negative for environmental allergies and food allergies. [facility] - History Attestation statement: The following [...] technique. COMPARISON: CT abdomen and pelvis 11/09/2019 ([place]). CHEST FINDINGS: There is an Trxoqg-h-Ymoj on the right with an internal jugular [...] Diabetes mellitus type: type 2 Diabetes mellitus senior care insulin use: unspecified senior care insulin use status Qualified Code(s): E11.40 - [...] for coordination of care (as documented) and bwgd-vd-qkvc counseling of patient and/or family. Dictated By: Margaret Delgado MD DD/ 1146 Signed By: <Electronically signed by MD Margaret Delgado> 06/20/202013 [facility] Work Phone: [phone]) [phone] Progress note Author Margaret Delgado [facility] May 25, 2020 8:33am Note Date/Time May 25, 2020 8:0 9am [place] [address] Hem/Onc Follow Up Note - OP Signed Patient: Altagracia Conway MR#: [id number] : 1955 Acct:[id number] Age/Sex: 64 / M Type: REG RCR [...] meeting tomorrow (will have to set up [facility] inpatient duckworth eval to d/c 5FU pump Saturday). Otherwise no concerns--f/u with me in one month for tumor markers and exam--continue 100% dose. PREVIOUS HISTORY: This is a 64-year-old male who originally presented to [facility] with nausea, vomiting, diarrhea in October 2019 [...] care. He was seen by gastroenterology at [facility] in late December complaining of increased epigastric pain. He also was noted to have about 20 pounds of weight loss and worsening diabetes. January 10 he had repeat endoscopic ultrasound with a masslike region in the pancreatic head and again brushings showed atypical cells with fine-needle aspiration again with atypical cells suspicious for cancer. CT abdomen pelvis at [facility] 01/22/2020 revealed no distant metastatic disease. IMPRESSION: [...] insulin managed by Dr. Tiki Dockery at [facility]. 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 DIAGNOSIS: 1. T2 N0 M0 resected pancreatic [...] Negative for environmental allergies and food allergies. 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 Dictated By: Margaret Delgado MD DD/ 0808 Signed By: <Electronically signed by MD Margaret Delgado> 05/25/20 0833 [facility] Work Phone: 1([phone] Progress note Author Margaret Delgado [facility] April 26, 2020 8:14am Note Date/Time April 25, 2020 3:02pm [facility] [place] [address] Hem/Onc Follow Up Note - OP Signed Patient: Altagracia Conway MR#: [id number] : 1955 Acct:[id number] Age/Sex: 64 / M Type: REG RCR [...] business meeting tomorrow (will haveto set up [facility] inpatient duckworth eval to d/c 5FU pump Saturday). Otherwise noconcerns--f/u with me in one month for tumor markers and exam--continue 100% dose. PREVIOUS HISTORY: This is a 64-year-old male who originally presented to [facility] with nausea, vomiting, diarrhea in October 2019 [...] care. He was seen by gastroenterology at [facility] in late December complaining of increased epigastric pain. He also was noted to have about 20 pounds of weight loss and worsening diabetes. January 10 he had repeat endoscopic ultrasound with a masslike region in the pancreatic head and again brushings showed atypical cells with fine-needle aspiration again with atypical cells suspicious for cancer. CT abdomen pelvis at [facility] 01/22/2020 revealed no distant metastatic disease. IMPRESSION: [...] insulin managed by Dr. Tiki Dockery at [facility]. 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 DIAGNOSIS: 1. T2 N0 M0 resected pancreatic [...] Negative for environmental allergies and food allergies. PMF - History Attestation statement: The following information [...] % (Auto) 74.2, Lymph % (Auto) 20.2, [place] % (Auto) 4.0, Eos % (Auto) 1.4, Baso % (Auto) 0.2, Neut # (Auto) 10.8 H, Lymph # (Auto) 2.9, [place] # (Auto) 0.6, Eos # (Auto) 0.2, [...] % (Auto) N/A, Lymph % (Auto) N/A, [place] % (Auto) N/A, Eos % (Auto) N/A, Baso % (Auto) N/A, Neut # (Auto) N/A, Lymph # (Auto) N/A, [place] # (Auto) N/A, Eos # (Auto) N/A, [...] Diabetes mellitus type: type 2 Diabetes mellitus senior care insulin use: unspecified senior care insulin use status Qualified Code(s): E11.40 - [...] for coordination of care (as documented) and lejs-gu-rzhx counseling of patient and/or family. Dictated By: Margaret Delgado MD DD/ 1502 Signed By: <Electronically signed by MD Margaret Delgado> 04/26/20 0814 [facility] Work Phone: [phone] 164-604301-07-2021 Consult note Author Margaret Delgado [facility] March 17, 2020 9:54pm Note Date/Time March 17, 2020 10 :49am [facility] [place] [address] Hem/Onc Consult Note - OP Signed Patient: Altagracia Conway MR#: [id number] : 1955 Acct:[id number] Age/Sex: 64 / M Type: REG RCR [...] a 64-year-old male who originally presented to [facility] with nausea, vomiting, diarrhea in October 2019 [...] care. He was seen by gastroenterology at [facility] in late December complaining of increased epigastric pain. He also was noted to have about 20 pounds of weight loss and worsening diabetes. January 10 he had repeat endoscopic ultrasound with a masslike region in the pancreatic head and again brushings showed atypical cells with fine-needle aspiration again with atypical cells suspicious for cancer. CT abdomen pelvis at [facility] 01/22/2020 revealed no distant metastatic disease. IMPRESSION: [...] insulin managed by Dr. Tiki Dockery at [facility]. 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 PMF - History Attestation statement: The following information [...] 35.46 - Impressions CT abdomen pelvis at [facility] 01/22/2020 revealed no distant metastatic disease. IMPRESSION: [...] 02/15/2020 Date Reported 03/01/2020 Submitting Physician: NASIM GUILLAUME M.D. Location: [facility] Other External # FINAL [...] ONE LYMPH NODE, NEGATIVE FOR TUMOR (0/1). protection consultant: Dr. 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 ALTAGRACIA CONWAY was presented at GI/Esophagus Tumor Board Conference Conference date: 02-Mar-2020 Presenting Provider(s): Dr. Nasim Guillaume Referring provider(s): (LIDIA Fuentes) Presenting location(s): [facility] Impression Presenting symptoms: s/p Whipple. 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 Dictated By: Margaret Delgado MD DD/ 1049 Signed By: <Electronically signed by MD Margaret Delgado> 03/17/20 2152 [facility] Work Phone: 1([phone]) [phone] History general Narrative - Reported* Type Description Date Medical History cancer of pancreas, S/P Whipple's procedure (pancreaticoduodenectomy) 02/15/2020 Medical History DM2 Medical History Hepatitis C S/P curative Epclusa therapy 2013 Medical History Anxiety & depression Medical History HTN Medical History peripheral neuropathy Surgical History RIGHT BIG TOE REMOVED 2015 Surgical History Whipple's procedure (pancreatoduodenectomy) with cholecystectomy Feb 2020 [employer] Other 12-07-2020 History general Narrative - Reported* [...] History UNSPECIFIED CIRRHOISIS OF LIVER 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 Medical History ELEVATED [...] HOME, TH EN WENT TO REHAB AT [facility] 04/2022 [employer] Other 12-07-2020 History general Narrative - Reported* [...] History UNSPECIFIED CIRRHOISIS OF LIVER Medical History [facility] CURRENT USE OF INSULIN Medical History ELEVATED [...] HOME, TH EN WENT TO REHAB AT [facility] 04/2022 [facility] [employer] Other Evaluation + Plan note No data available for this section [facility] Future Appointments Appointment Date:10/11/2023 12:30:00 PM Scheduled Provider: Location:[facility] Surgical Services Appointment Type:ASU IV Antibiotic (FT) Appointment Date:10/12/2023 12:30:00 PM Scheduled Provider: Location:[facility] Surgical Services Appointment Type:ASU IV Antibiotic (FT) Appointment Date:10/13/2023 12:30:00 PM Scheduled Provider: Location:[facility] Surgical Services Appointment Type:ASU IV Antibiotic (FT) Appointment Date:10/14/2023 12:30:00 PM Scheduled Provider: Location:[facility] Surgical Services Appointment Type:ASU IV Antibiotic (FT) Appointment Date:10/15/2023 12:30:00 PM Scheduled Provider: Location:[facility] Surgical Services Appointment Type:ASU IV Antibiotic (FT) Appointment Date:10/16/2023 12:30:00 PM Scheduled Provider: Location:[facility] Surgical Services Appointment Type:ASU IV Antibiotic (FT) Appointment Date:10/17/2023 12:30:00 PM Scheduled Provider: Location:[facility] Surgical Services Appointment Type:ASU IV Antibiotic (FT) Appointment Date:10/18/2023 12:30:00 PM Scheduled Provider: Location:[facility] Surgical Services Appointment Type:ASU IV Antibiotic (FT) Appointment Date:10/19/2023 12:30:00 PM Scheduled Provider: Location:[facility] Surgical Services Appointment Type:ASU IV Antibiotic (FT) Appointment Date:10/20/2023 12:30:00 PM Scheduled Provider: Location:[facility] Surgical Services Appointment Type:ASU IV Antibiotic (FT) [facility] Evaluation + Plan note Future Appointments Appointment Date:03/17/2024 09:00:00 AM Scheduled Provider: Location:[facility] Urology Surgical Services Appointment Type:Urology CALL PAT FT Appointment Date:03/24/2024 10:15:00 AM Scheduled Provider: Location:[facility] Surgical Services Appointment Type:Urology FT [facility] evaluation + Plan note Future Appointments Appointment Date:05/04/2024 08:30:00 AM Scheduled Provider: Location:[facility] Radha Appointment Type:URO Nurse Visit Appointment Date:05/29/2024 08:15:00 AM Scheduled Provider:Clarence SYED MD Location:[facility] [place] Appointment Type:URO Office Visit [facility] evaluation noteNo [employer] Other evaluation noteNo assessment information available [facility] [employer] Work Phone: evaluation note* Diagnosis Onset Date [...] Odynophagia resolved Tachypnea, not elsewhere classified resolved [facility] Work Phone: evaluation note* Diagnosis Onset [...] Odynophagia resolved Tachypnea, not elsewhere classified resolved [facility] [employer] Work Phone: evaluation note* Diagnosis Type 2 diabetes mellitus with diabetic polyneuropathy, with long-term current use of insulin (HCC)- Primary Chemotherapy-induced neuropathy (HCC) Polyneuropathy due to drugs Bilateral foot pain Pain in limb Bilateral hand pain Pain in limb [facility] Recurrent major depression in remission (HCC)- Primary Major depressive disorder, recurrent episode, in partial or unspecified remission Pain disorder with related psychological factors Type 2 diabetes mellitus with diabetic polyneuropathy, with long-term current use of insulin (HCC) [facility] Diagnosis Pre-op evaluation- Primary Preoperative examination, [...] Other chronic pain [facility] Diagnosis Type 2 diabetes mellitus with diabetic polyneuropathy, with long-term current use of insulin (HCC)- Primary Chemotherapy-induced neuropathy (HCC) Polyneuropathy due to drugs Bilateral foot pain Pain in limb [facility] Diagnosis Chemotherapy-induced neuropathy (HCC)- Primary Polyneuropathy due to drugs Pain disorders related to psychological factors Psychogenic pain, site unspecified Chemotherapy-induced neuropathy (HCC) Polyneuropathy due to drugs Pain disorders related to psychological factors Psychogenic pain, site unspecified [facility] Diagnosis Onset Date Resolution Status Hypoglycemic [...] Odynophagia resolved Tachypnea, not elsewhere classified resolved [facility] Work Phone: Evaluation note* Diagnosis Lumbar paraspinal muscle spasm- Primary Other symptoms referable to back Spinal cord stimulator status Other postprocedural status Bilateral foot pain Pain in limb [facility] Diagnosis COPD exacerbation (CMS/HCC)- Primary Obstructive chronic bronchitis with exacerbation Simple chronic bronchitis (CMS/HCC) Simple chronic 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 (CMS/HCC) Diastolic dysfunction Unspecified heart disease [facility] Left wrist pain- Primary Pain in joint, forearm [facility] Diagnosis Type 2 diabetes mellitus with diabetic polyneuropathy, with long-term current use of insulin (HCC)- Primary Bilateral foot pain Pain in limb Spinal cord stimulator status Other postprocedural status [facility] Diagnosis Onset Date Resolution Status CKD [...] Primary cancer of head of pancreas chronic [facility] Work Phone: Evaluation note* Diagnosis Onset Date [...] 3, GFR 30-59 ml/min acute Hyperlipidemia acute [id number] acute Nephrolithiasis acute Secondary hyperparathyroidism acute Type 2 diabetes mellitus wit h diabetic chronic kidney disease acute Vitamin D deficiency acute [facility] Work Phone: Evaluation note* Diagnosis Onset Date [...] 30-59 ml/min acute Hyperkalemia acute Hyperlipidemia acute [id number] acute Nephrolithiasis acute Secondary hyperparathyroidism acute Type [...] classified resolved Abdominal pain acute Neuropathy acute [facility] Work Phone: Evaluation note* Diagnosis Onset Date [...] 30-59 ml/min acute Hyperkalemia acute Hyperlipidemia acute [id number] acute Nephrolithiasis acute Secondary hyperparathyroidism acute Type [...] pain acute Neuropathy acute Pancreatic cancer acute [facility] Work Phone: Evaluation note* Diagnosis Onset Date [...] 30-59 ml/min acute Hyperkalemia acute Hyperlipidemia acute [id number] acute Nephrolithiasis acute Secondary hyperparathyroidism acute Type [...] Odynophagia resolved Tachypnea, not elsewhere classified resolved [facility] Work Phone: Evaluation note* Diagnosis Onset Date [...] 30-59 ml/min acute Hyperkalemia acute Hyperlipidemia acute [id number] acute Nephrolithiasis acute Secondary hyperparathyroidism acute Type [...] Odynophagia resolved Tachypnea, not elsewhere classified resolved [facility] Work Phone: Evaluation note* Diagnosis Onset Date Resolution Status Anemia of renal disease acut e CKD (chronic kidney disease) stage 3, GFR 30-59 ml/min acute Hyperkalemia acute Hyperlipidemia acute [id number] acute Nephrolithiasis acute Secondary hyperparathyroidism acute Type [...] Odynophagia resolved Tachypnea, not elsewhere classified resolved [facility] Work Phone: Evaluation note* Diagnosis Onset Date [...] cancer acute Peripheral neuropathy due to chemotherapy [facility] Work Phone: Evaluation note* Diagnosis Onset Date [...] chronic Primary cancer of head of pancreas [facility] Work Phone: Evaluation note* Diagnosis Chemotherapy-induced neuropathy [...] stated as uncontrolled documented in this encounter [facility] HealthcareEvaluation note* Diagnosis Onset Date Resolution [...] acute Pancreatic cancer acute Cancer-related pain chronic [facility] Work Phone: Evaluation note* Diagnosis Stage 3a [...] polyneuropathy, with long-term current use of insulin ([facility]/HCC) Type II diabetes mellitus with neurological manifestations (CMS/HCC) Type II or unspecified type diabetes mellitus with neurological manifestations, not stated as uncontrolled Diarrhea, unspecified type- Primary Neck pain Cervicalgia documented in this encounter [facility] HealthcareEvaluation note* Diagnosis Erectile dysfunction, unspecified erectile dysfunction type- Primary Abscess Cellulitis and abscess of unspecified site documented in this encounter [facility] HealthcareHospital Discharge instructions No data available for this section [facility] Additional Instructions If your symptoms return/worsen or you develop any further concerns or symptoms please see your doctor or return to the emergency department immediately.[facility] Work Phone: Hospital Discharge instructions Additional Instructions Finish your antibiotics. Follow up with your doctor. You may need to be referred to pain management.[facility] Work Phone: Hospital Discharge instructions Additional Instructions You may take [id number]-wey-[id number] Tylenol as needed for any pain or discomfort. Take the clindamycin 3 mg by mouth 4 times a day for the next 10 days. Follow-up with your primary care provider and oncologist as scheduled. Return here if your symptoms worsen or you develop fever, chills, nausea, vomiting, diarrhea.[facility] Work Phone: Hospital Discharge instructions Additional Instructions [facility]ylen[facility] Work Phone: Progress note No data available for this section [facility] Author Dylan Vazquez [facility] November 25, 2022 2:02pm Note Date/Time November 21, 2022 12:29pm [facility] [place] [id number] Hem/Onc Follow Up Note - OP Signed Patient: Altagracia Conway MR#: [id number] : 1955 Acct:[id number] Age/Sex: 67 / M Type: REG RCR [...] stable with some increase in his creatinine. Gopaloneal he follows up on this soon with [...] 08/11/2021: 6 week followup--07/27/2021 CT scan at [facility] was concerning for recurrence (nonspecific mesenteric [...] his PCP has referred him to a bread jockey and he hasan upcoming appt in March [...] meeting tomorrow (will have to set up [facility] inpatient [place]worth eval to d/c 5FU pump Saturday). Otherwise no concerns--f/u with me in one month for tumor markers and exam--continue 100% dose. PREVIOUS HISTORY: This is a now 66-year-old male who originally presented to [facility] with nausea, vomiting, diarrhea in October 2019 [...] care. He was seen by gastroenterology at [facility] in late December complaining of increased epigastric pain. He also was noted to have about 20 pounds of weight loss and worsening diabetes. January 10 he had repeat endoscopic ultrasound with a masslike region in the pancreatic head and again brushings showed atypical cells with fine-needle aspiration again with atypical cells suspicious for cancer. CT abdomen pelvis at [facility] 01/22/2020 revealed no distant metastatic disease. IMPRESSION: [...] insulin managed by Dr. Tiki Dockery at [facility]. 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 DIAGNOSIS: 1. T2 N0 M0 resected pancreatic [...] mg PO TID 07/07/21 [History Confirmed 11/21/22] qtujyp-zrfrqdwv-ajmnbef 36,000-114,000-180,000 unit capsule,delay rel (Creon) 1 cap [...] 12/28/21 10:17 KB (Rec: 12/28/21 10:19 KB [id number]) Distress Screening Distress score of 4 or [...] % (Auto) 67.7, Lymph % (Auto) 18.9, [place] % (Auto) 6.9, Eos % (Auto) 5.7, Baso % (Auto) 0.8, Nucleat RBC Rel Count 0.0, Neut # (Auto) 6.0, Lymph # (Auto) 1.7, [place] # (Auto) 0.6, Eos # (Auto) 0.5 [...] his PCP has referred him to a bread jockey andhe has an upcoming appt in March 2021. 02/22/2021: Due to rising CA 19-9 level, SUZY Sophie ordered CT chest, abdomen/pelvis. She was unable [...] his last visit. 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 Dictated By: Dylan Vazquez APRN DD/ 1228 Signed By: <Electronically signed by NYLA Escobar Jose George> 11/25/22 1402 [facility] Work Phone: Reason for referral (narrative)* Consultation (Routine) - Pending Review Specialty Diagnoses / Procedures Referred By Contac t Referred To Contact Pulmonary Disease / Pulmonology Diagnoses Simple chronic bronchitis (CMS/HCC) Procedures MO OFFICE/OUTPATIENT NEW HIGH MDM 60 MINUTES Tiki Dockery, DO [address] [place] [address] Hui Raygoza, DO [address] [place] [address] Referral ID Status Reason Start Date Expiration Date Visits Requested Visits Authorized [id number] Pending Review Specialty Services Required 04/18/2023 10/15/2023 1 1 [facility] Healthcare Summary Purpose Family History No Family History Records Found Mother Name Dates Details Family history of [...] mother Malignant neoplasm Unknown Unknown Advance Directives No Advanced Directives Records Found Advance Directive Response Recorded Date/ Time Advance [...] disease) stage 3, GFR 30-59 ml/min Hyperlipidemia [id number] Nephrolithiasis Secondary hyperparathyroidism Type 2 diabetes mellitus [...] stage 3, GFR 30-59 ml/min Hyperkalemia Hyperlipidemia [id number] Nephrolithiasis Secondary hyperparathyroidism Type 2 diabetes mellitus [...] stage 3, GFR 30-59 ml/min Hyperkalemia Hyperlipidemia [id number] Nephrolithiasis Secondary hyperparathyroidism Type 2 diabetes mellitus [...] stage 3, GFR 30-59 ml/min Hyperkalemia Hyperlipidemia [id number] Nephrolithiasis Secondary hyperparathyroidism Type 2 diabetes mellitus [...] stage 3, GFR 30-59 ml/min Hyperkalemia Hyperlipidemia [id number] Nephrolithiasis Secondary hyperparathyroidism Type 2 diabetes mellitus [...] stage 3, GFR 30-59 ml/min Hyperkalemia Hyperlipidemia [id number] Nephrolithiasis Secondary hyperparathyroidism Type 2 diabetes mellitus [...] Primary cancer of head of pancreas Decem jesse 2023 1:02pm Abdominal pain February 28, 2024 [...] 1 :48pm Diabetes mellitus with neuropathy Marnitish billingsley 2024 1:48pm Encounter for chemotherapy management Carson [...] 9:18am Cancer-related pain April 29, 2024 9:18am Chief Complaint Admit Date follow up February 13, 2024 1 :02pm Patient here for a 2 month f/u February 28, 2024 9:48am Pancreatic R06.00. March 26, 2024 1 :48pm BH April 02, 2024 1 0:38am Patient here for a2 month f/u April [id number] 9:18am right foot pain May 10, 2024 12:5 0am Reason for Visit Admit Date Pancreatic insufficiency February 12, 024 1:02pm Primary cancer of head of pancreas Decem jesse 2023 1:02pm Abdominal pain February 28, 2024 9:48am Neuropathy February 28, 2024 9:48am Pancreatic cancer February 28, 2024 9:48am Hypoglycemic episode in patient with viet betes mellitus March 26, 2024 1:48pm Abnormal kidney function March 26 025 1:48pm Anemia complicating neoplastic disease J anuary 2024 1:48pm Anxiety March 26, 2024 1 :48pm Asthma March 26, 2024 1 :48pm Cancer cachexia March 26, 2024 1 :48pm Cancer-related pain March 26, 2024 1 :48pm Diabetes mellitus with neuropathy Stephy billingsley 2024 1:48pm Encounter for chemotherapy management Carson [...] History of hepatitis C March 26 1:48pm CKD (chronic kidney disease) stage 3, GF R 30-59 ml/min April 29, 2024 9:18am Neuropathy April 29, 2024 9:18am Pancreatic cancer April 29, 2024 9:18am Chief Complaint Admit Date Patient here for a 2 month f/u February 28, 2024 9:48am Pancreatic R06.00. March 26, 2024 1 :48pm BH April 02, 2024 1 0:38am Patient here for a2 month f/u April 112024 9:18am right foot pain May 10, 2024 12:5 0am Patient here for a f/u May 18, 2024 2:00pm Reason for Visit Admit Date Abdominal pain February 28, 2024 9:48am Neuropathy February 28, 2024 9:48am Pancreatic cancer February 28, 2024 9:48am Hypoglycemic episode in patient with viet betes mellitus March 26, 2024 1:48pm Abnormal kidney function March 26 025 1:48pm Anemia complicating neoplastic disease J anuary 2024 1:48pm Anxiety March 26, 2024 1 :48pm Asthma March 26, 2024 1 :48pm Cancer cachexia March 26, 2024 1 :48pm Cancer-related pain March 26, 2024 1 :48pm Diabetes mellitus with neuropathy Stephy billingsley 2024 1:48pm Encounter for chemotherapy management Carson baca 2024 1:48pm Major depressive disorder March 26, 2024 1:48pm Oral leukoplakia March 26, 2024 1 :48pm 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 March 26, 2024 1:48pm Primary cancer of head of pancreas Hugh mcdonnell 2024 1:48pm Hypokalemia due to excessive renal loss of potassium March 26, 2024 1:48pm Hypomagnesemia March 26, 2024 1 :48pm Infestation by bed bug March 26 1:48pm Odynophagia March 26, 2024 1 :48pm Tachypnea, not elsewhere classified Levy howell 2024 1:48pm Family history of pancreatic cancer Levy howell 2024 1:48pm History of hepatitis C March 26 1:48pm CKD (chronic kidney disease) stage 3, GF R 30-59 ml/min April 29, 2024 9:18am Neuropathy April 29, 2024 9:18am Pancreatic cancer April 29, 2024 9:18am Nausea & vomiting May 18, 2024 2:0 0pm Neuropathy May 18, 2024 2:0 0pm Pancreatic cancer May 18, 2024 2:0 0pm Substance use disorder May 18, 2024 2:00pm Chief Complaint Admit Date Patient here for a 2 month f/u February 28, 2024 9:48am BH April 02, 2024 1 0:38am Patient here for a2 month f/u April 112024 9:18am right foot pain May 10, 2024 12:5 0am Patient here for a f/u May 18, 2024 2:00pm Follow Up after CT May 21, 2024 10: 44am Pancreatic R06.00. May 21, 2024 10: 45am Reason for Visit Admit Date Abdominal pain February 28, 2024 9:48am Neuropathy February 28, 2024 9:48am Pancreatic cancer February 28, 2024 9:48am CKD (chronic kidney disease) stage 3, GF R 30-59 ml/min April 29, 2024 9:18am Neuropathy April 29, 2024 9:18am Pancreatic cancer April 29, 2024 9:18am Nausea & vomiting May 18, 2024 2:0 0pm Neuropathy May 18, 2024 2:0 0pm Pancreatic cancer May 18, 2024 2:0 0pm Substance use disorder May 18, 2024 2:00pm Lymph node enlargement May 21, 2024 10:44am Asthma May 21, 2024 10: 44am Cancer-related pain May 21, 2024 10: 44am Diabetes mellitus with neuropathy May 21, 2024 10:44am Major depressive disorder May 21 10:44am Oral leukoplakia May 21, 2024 10: 44am 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 May 21, 2024 10:44am Primary cancer of head of pancreas May 21, 2024 10:44am Abscess May 21, 2024 10: 44am CKD (chronic kidney disease) May 21, 2024 10:44am Hypoglycemic episode in patient with viet betes mellitus May 21, 2024 10:45am Abnormal kidney function May 21 10:45am Anemia complicating neoplastic disease [facility] 2024 10:45am Anxiety May 21, 2024 10: 45am Asthma May 21, 2024 10: 45am Cancer cachexia May 21, 2024 10: 45am Cancer-related pain May 21, 2024 10: 45am Diabetes mellitus with neuropathy May 21, 2024 10:45am Encounter for chemotherapy management [facility] 2024 10:45am Major depressive disorder May 21 10:45am Oral leukoplakia May 21, 2024 10: 45am 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 May 21, 2024 10:45am Primary cancer of head of pancreas May 21, 2024 10:45am Hypokalemia due to excessive renal loss of potassium May 21, 2024 10:45am Hypomagnesemia May 21, 2024 10: 45am Infestation by bed bug May 21, 2024 10:45am Odynophagia May 21, 2024 10: 45am Tachypnea, not elsewhere classified Guerrero h 2024 10:45am Family history of pancreatic cancer Guerrero h 2024 10:45am History of hepatitis C May 21, 2024 10:45am Reason for Referral Specialty Diagnoses / Procedures Referred By Contac t Referred To Contact [facility] [place] Diagnoses Type 2 diabetes mellitus with diabetic polyneuropathy, with long-term current use of insulin (HCC) Bilateral foot pain Spinal cord stimulator status Procedures [facility] TO [facility] ([facility]) OFFICE/OUTPATIENT [facility] MDM 60 MINUTES Elba Henry PA-C [address] [place] [address] Referral ID Status Reason Start Date Expiration Date Visits Requested Visits Authorized [id number] Pending Review PCP Requested Referral 05/22/2023 05/21/2024 1 1 Specialty Diagnoses / Procedures Referred By Contac t Referred To Contact Psychology / PAIN MANAGEMENT Diagnoses Chemotherapy-induced neuropathy (HCC) Bilateral foot pain Bilateral hand pain Pain disorder with related psychological factors Procedures CONSULT TO PSYCHOLOGY OFFICE/OUTPATIENT [facility] MDM 60-74 MINUTES PSYCHIATRIC DIAGNOSTIC EVALUATION PSYCHOLOGICAL TST EVAL SVC PHYS/QHP FIRST HOUR PSYL/NRPSYCL TST PHYS/QHP 2+ TST 1ST 30 MIN Jordan Ortega E, [address] [place] [address] Guru Byrd, PhD [address] [place] [id number] Referral ID Status Reason Start Date Expiration Date Visits Requested Visits Authorized [id number] Pending Review PCP Requested Referral 08/13/2022 08/13/2023 [...] and content) DATE CREATED AUTHOR 08/28/2017 [employer] DATE CREATED AUTHOR AUTHOR'S ORGANIZ ATION 09/09/2017 [facility] DATE CREATED AUTHOR AUTHOR'S ORGANIZ ATION 01/19/2020 [facility] DATE CREATED AUTHOR AUTHOR'S ORGANIZ ATION 01/29/2020 [facility] DATE CREATED AUTHOR AUTHOR'S ORGANIZ ATION 04/03/2022 [facility] DATE CREATED AUTHOR AUTHOR'S ORGANIZ ATION 07/15/2022 [facility] DATE CREATED AUTHOR AUTHOR'S ORGANIZ ATION 07/25/2022 [facility] dical Specialist DATE CREATED AUTHOR AUTHOR'S ORGANIZ ATION 11/13/2022 [facility] DATE CREATED AUTHOR AUTHOR'S ORGANIZ ATION 03/30/2023 [facility] DATE CREATED AUTHOR AUTHOR'S ORGANIZ ATION 05/24/2023 [facility] DATE CREATED AUTHOR AUTHOR'S ORGANIZ ATION [facility]20[facility] DATE CREATED AUTHOR AUTHOR'S ORGANIZ ATION 2023 [facility] DATE CREATED AUTHOR AUTHOR'S ORGANIZ ATION 09/25/2023 [facility] DATE CREATED AUTHOR AUTHOR'S ORGANIZ ATION 09/26/2023 [facility] DATE CREATED AUTHOR AUTHOR'S ORGANIZ ATION 10/05/2023 [facility] DATE CREATED AUTHOR AUTHOR'S ORGANIZ ATION 10/06/2023 [facility] DATE CREATED AUTHOR AUTHOR'S ORGANIZ ATION 10/07/2023 [facility] DATE CREATED AUTHOR AUTHOR'S ORGANIZ ATION 10/09/2023 [facility] DATE CREATED AUTHOR AUTHOR'S ORGANIZ ATION 10/10/2023 [facility] DATE CREATED AUTHOR AUTHOR'S ORGANIZ ATION 10/11/2023 [facility] DATE CREATED AUTHOR AUTHOR'S ORGANIZ ATION 10/15/2023 [facility] DATE CREATED AUTHOR AUTHOR'S ORGANIZ ATION 10/24/2023 [facility] DATE CREATED AUTHOR AUTHOR'S ORGANIZ ATION 12/15/2023 [facility] DATE CREATED AUTHOR AUTHOR'S ORGANIZ ATION 01/20/2024 [facility] DATE CREATED AUTHOR AUTHOR'S ORGANIZ ATION 01/26/2024 [facility] DATE CREATED AUTHOR AUTHOR'S ORGANIZ ATION 01/27/2024 [facility] DATE CREATED AUTHOR AUTHOR'S ORGANIZ ATION 01/29/2024 [facility] DATE CREATED AUTHOR AUTHOR'S ORGANIZ ATION 02/19/2024 [facility] DATE CREATED AUTHOR AUTHOR'S ORGANIZ ATION 02/20/2024 [facility] DATE CREATED AUTHOR AUTHOR'S ORGANIZ ATION 04/26/2024 [facility] DATE CREATED AUTHOR AUTHOR'S ORGANIZ ATION 04/26/2024 [facility] DATE CREATED AUTHOR AUTHOR'S ORGANIZ ATION 04/27/2024 [facility] DATE CREATED AUTHOR AUTHOR'S ORGANIZ ATION 04/30/2024 [facility] DATE CREATED AUTHOR AUTHOR'S ORGANIZ ATION 05/03/2024 [facility] DATE CREATED AUTHOR AUTHOR'S ORGANIZ ATION 05/22/2024 [facility] DATE CREATED AUTHOR AUTHOR'S ORGANIZ ATION 05/24/2024 [facility] REASON FOR VISIT (unrecogniz ed section and content) Reason Comments Consult neuropathy Reason Comments Schedule Injection Reason Comments Recheck SCS trial Reason Comments Procedure SCS implant Reason Comments Pain procedure response and follow up Pl acement of Percutaneous SCS lead implantation x 2 and Medtronic Intellis adaptiveStim system implantable pulse generator. Reason Comments Established Patient Patient states pia suggs pain around scs site Reason Comments ER [...] May 02, 2023 End: May 02, 2023 Rajiv Enriquez Jr, MD Emergency Provider Active Start: May [...] Nasim Guillaume MD Referring Provider Active Tiki Dockery DO Primary Care Provider Active Software Quality Test Engineer Relationship Specialty Start Date End Date Tiki Dockery [address] [place] [phone] PCP - General Family Medicine 03/11/04 [facility] [address] [place] [address] Primary Staff Physician Cardiology 05/27/18 AnkitaHernandez pitts [address] [place] [phone] Referring Podiatry 03/20/22 Software Quality Test Engineer Relationship Specialty Start Date End Date Tiki Dockery [address] [place] [phone] PCP - General Family Medicine 03/11/04 [facility] [address] [facility] [place] [place] [address] Primary Staff Physician Cardiology 05/27/18 Hernandez Luciano [address] [place] [phone] Referring Podiatry 03/20/22 Software Quality Test Engineer Relationship Specialty Start Date End Date Tiki Dockeryelle [address] [place] [phone] PCP - General Family Medicine 03/11/04 Memo Rowe [address] [place] [address] Primary Staff Physician Cardiology 05/27/18 Hernandez Luciano [address] [place] [phone] Referring Podiatry 03/20/22 Software Quality Test Engineer Relationship Specialty Start Date End Date Tiki Dockeryelle [address] [place] [phone] PCP - General Family Medicine 03/11/04 Memo Rowe [address] [place] [address] Primary Staff Physician Cardiology 05/27/18 Hernandez Arambula DPM [address] [place] [address] Referring Podiatry 03/20/22 Software Quality Test Engineer Relationship Specialty Start Date End Date Tiki Dockery Gagan [address] [place] [phone] PCP - General Family Medicine 03/11/04 Memo Rowe [address] [place] [address] Primary Staff Physician Cardiology 05/27/18 Hernandez Arambula DPM [address] [place] [address] Referring Podiatry 03/20/22 Software Quality Test Engineer Relationship Specialty Start Date End Date Tiki Dockery [address] [place] [phone] PCP - General Family Medicine 03/11/04 Memo Rowe [address] [place] [address] Primary Staff Physician Cardiology 05/27/18 Hernandez Arambula DPM [address] [place] [address] Referring Podiatry 03/20/22 Software Quality Test Engineer Relationship Specialty Start Date End Date Tiki Dockery [address] [place] [phone] PCP - General Family Medicine 03/11/04 Memo Rowe [address] [place] [address] Primary Staff Physician Cardiology 05/27/18 Hernandez Arambula DPM [address] [place] [address] Referring Podiatry 03/20/22 Software Quality Test Engineer Relationship Specialty Start Date End Date Tiki Dockery [address] [place] [phone] PCP - General Family Medicine 03/11/04 Memo Rowe [address] [place] [address] Primary Staff Physician Cardiology 05/27/18 Hernandez Arambula DPM [address] [place] [address] Referring Podiatry 03/20/22 Software Quality Test Engineer Relationship Specialty Start Date End Date Tiki Dockery Gagan [address] [place] [address] PCP - General Family Medicine 03/11/04 Memo Rowe [address] [place] [address] Primary Staff Physician Cardiology 05/27/18 Hernandez Arambula DPM [address] [place] [address] Referring Podiatry 03/20/22 Team Status: Active Member [...] Care Provider Active Start: April 09, 2023 Software Quality Test Engineer Relationship Specialty Start Date End Date Tiki Dockery DO [address] [place] [address] PCP - General Family Medicine 09/03/22 Tiki Dockery DO [address] [place] [address] PCP - Devoted 03/11/23 Software Quality Test Engineer Relationship Specialty Start Date End Date Sarkis Tiki M, DO [address] [place] [address] PCP - General Family Medicine 09/03/22 Sarkis Tiki M, DO [address] [place] [address] PCP - Devoted 03/11/23 Software Quality Test Engineer Relationship Specialty Start Date End Date Tiki Dockery, DO [address] [place] [address] PCP - General Family Medicine 09/03/22 Blakecatherinetawana Tiki Sumanth, DO [address] [place] [address] PCP - Devoted 03/11/23 Software Quality Test Engineer Relationship Specialty Start Date End Date Mejia Dockeryison Gagan [address] [place] [address] PCP - General Family Medicine 03/11/04 Memo Rowe [address] [place] [address] Primary Staff Physician Cardiology 05/27/18 Hernandez Arambula DPM [address] [place] [address] Referring Podiatry 03/20/22 Software Quality Test Engineer Relationship Specialty Start Date End Date Tiki Dockery [address] [place] [phone] PCP - General Family Medicine 03/11/04 Memo Rowe [address] [place] [address] Primary Staff Physician Cardiology 05/27/18 Hernandez Arambula DPM [address] [facility] [address] Referring Podiatry 03/20/22 Team Status: Active Member [...] 2023 End: August 19, 2023 Daysi Garcia [facility] Emergency Provider Active Start: August 19, [...] November 21, 2023 End: November 21, 2023 Margaret Delgado MD Attending Provider Active Start: November 21, 2023 End: November 21, 2023 Team Status: Inactive Member Role Status Dates Tiki Dockery DO Primary Care Provider Active Start: November 21, 2023 End: November 21, 2023 Karolina Watts APRN Emergency Provider Active S tart: November 21, 2023 End: November 21, 2023 Software Quality Test Engineer Relationship Specialty Start Date End Date Tiki Dockery DO [address] [facility] [address] [place] [address] PCP - General Family Medicine 09/03/22 Tiki Dockery DO [address] [place] [address] PCP - Devoted 03/11/23 Team Status: Active [...] December 31, 2023 End: December 31, 2023 Software Quality Test Engineer Relationship Specialty Start Date End Date AllanTiki gilliam, DO [address] [place] [address] PCP - General Family Medicine 09/03/22 Mejia Dockeryshana Julio, DO [address] [place] [address] PCP - Devoted 03/11/23 03/10/24 Software Quality Test Engineer Relationship Specialty Start Date End Date AllanTiki gilliam, DO [address] [place] [address] PCP - General Family Medicine 09/03/22 Tiki Dockery, DO [address] [place] [address] PCP - Devoted 03/11/23 03/10/24 Software Quality Test Engineer Relationship Specialty Start Date End Date Mejia Dockeryshana Julio, DO [address] [place] [address] PCP - General Family Medicine 09/03/22 Tiki Dockery Sumanth, DO [address] [place] [address] PCP - Devoted 03/11/23 03/10/24 Software Quality Test Engineer Relationship Specialty Start Date End Date Tiki Dockery Sumanth, DO [address] [place] [address] PCP - General Family Medicine 09/03/22 Tiki Dockery, DO [address] [place] [address] PCP - Devoted 03/11/23 03/10/24 Software Quality Test Engineer Relationship Specialty Start Date End Date Tiki Dockery Sumanth, DO [address] [place] [address] PCP - General Family Medicine 09/03/22 Tiki Dockery, DO [address] [place] [address] PCP - Devoted 03/11/23 Software Quality Test Engineer Relationship Specialty Start Date End Date Tiki Dockery, DO [address] [place] [address] PCP - General Family Medicine 09/03/22 Tiki Dockery, DO [address] [place] [address] PCP - Devoted 03/11/23 Software Quality Test Engineer Relationship Specialty Start Date End Date Allantawana Tiki M, DO [address] [place] [address] PCP - General Family Medicine 09/03/22 Mejia Dockeryshana Julio, DO [address] [place] [address] PCP - Devoted 03/11/23 Software Quality Test Engineer Relationship Specialty Start Date End Date Allantawana Tiki M, DO [address] [place] [address] PCP - General Family Medicine 09/03/22 Tiki Dockery Sumanth, DO [address] [place] [address] PCP - Devoted 03/11/23 03/10/24 Software Quality Test Engineer Relationship Specialty Start Date End Date Mejia Dockeryshana Julio, DO [address] [place] [address] PCP - General Family Medicine 09/03/22 Tiki Dockery, DO [address] [place] [address] PCP - Devoted 03/11/23 Software Quality Test Engineer Relationship Specialty Start Date End Date Mejia Dockeryshana Julio, DO [address] [place] [address] PCP - General Family Medicine 09/03/22 Tiki Dockery, DO [address] [place] [address] PCP - Devoted 03/11/23 Software Quality Test Engineer Relationship Specialty Start Date End Date Tiki Dockery, DO [address] [place] [address] PCP - General [facility] Medicine 09/03/22 Tiki Dockery DO [address] [place] [address] PCP - Devoted 03/11/23 Software Quality Test Engineer Relationship Specialty Start Date End Date Tiki Dockery, DO [address] [place] [address] PCP - General [facility] Medicine 09/03/22 Tiki Dockery DO [address] [place] [address] PCP - Devoted 03/11/23 Team Status: Inactive Member Role Status Dates Tiki Dockery DO Primary Care Provider Active Start: February 03, 2024 End: February 03, 2024 Tammy Fleming MD Attending Provider Active Start : February 03, 2024 End: February 03, 2024 Team Status: Inactive Member Role Status Dates Tiki Dockery DO Primary Care Provider Active Start: February 13, 2024 End: February 13, 2024 Connor Vazquez MD Attending Provider Active S tart: February 13, 2024 End: February 13, 2024 Team Status: Inactive Member Role Status Dates Tiki Dockery DO Primary Care Provider Active Start: February 28, [...] DO Primary Care Provider Active Start: April 02, 2024 Bro Alas MD Attending Provider Active Start: April 02, 2024 Team Status: Inactive Member Role Status Dates Tiki Dockery DO Primary Care Provider Active Start: April 29, 2024 End: April 29, 2024 Karen Lr APRN Attending Provider Active Start: April 29, 2024 End: April 29, 2024 Team Status: Inactive Member Role Status Dates Tiki Dockery DO Primary Care Provider Active Start: May 10, 2024 End: May 10, 2024 Mark Arambula MD Emergency Provider Active Star t: May 10, 2024 End: May 10, 2024 Software Quality Test Engineer Relationship Specialty Start Date End Date Allantawana Tiki SumanthDO [address] [place] [address] PCP - General Family Medicine 09/03/22 Tiki Dockery DO [address] [place] [address] PCP - Devoted 03/11/23 Team Status: Active Member Role Status Dates Tiki Dockery DO Primary Care Provider Active Start: April 17, 2024 Darian Dahl DO Attending Provider Active Sta rt: April 17, 2024 Team Status: Inactive Member Role Status Dates Tiki Dockery DO Primary Care Provider Active Start: May 18, 2024 End: May 18, 2024 Karen Lr APRN Attending Provider Active Start: May 18, 2024 End: May 18, 2024 Team Status: Inactive Member Role Status Dates Tiki Dockery DO Primary Care Provider Active Start: May 21, 2024 End: May 21, 2024 Margaret Delgado MD Attending Provider Active Start: May 21, 2024 End: May 21, 2024 Team Status: Active Member Role Status Dates Margaret Delgado MD Attending Provider Active Start: May 21, 2024 Nasim Guillaume MD Referring Provider Active Start: May 21, 2024 Tiki Dockery DO Primary Care Provider Active Start: May 21, 2024 Goals (unrecognized section and content) Goals may be documented in a n alternate section Source Comments (unrecognize d section and content) In the event this informatio n is protected by the Federal Confidentiality of Alcohol and Drug Abuse Patient Records regulations: The Federal rules restrict any use of the information to criminally investigate or prosecute any alcohol or drug abuse patient.[facility] the event this information is protected by the Federal Confidentiality of Alcohol and Drug Abuse Patient Records regulations: The Federal rules restrict any use of the information to criminally investigate or prosecute any alcohol or drug abuse patient.[facility] the event this information is protected by the Federal Confidentiality of Alcohol and Drug Abuse Patient Records regulations: The Federal rules restrict any use of the information to criminally investigate or prosecute any alcohol or drug abuse patient.[facility] the event this information is protected by the Federal Confidentiality of Alcohol and Drug Abuse Patient Records regulations: The Federal rules restrict any use of the information to criminally investigate or prosecute any alcohol or drug abuse patient.[facility] the event this information is protected by the Federal Confidentiality of Alcohol and Drug Abuse Patient Records regulations: The Federal rules restrict any use of the information to criminally investigate or prosecute any alcohol or drug abuse patient.[facility] the event this information is protected by the Federal Confidentiality of Alcohol and Drug Abuse Patient Records regulations: The Federal rules restrict any use of the information to criminally investigate or prosecute any alcohol or drug abuse patient.[facility] the event this information is protected by the Federal Confidentiality of Alcohol and Drug Abuse Patient Records regulations: The Federal rules restrict any use of the information to criminally investigate or prosecute any alcohol or drug abuse patient.[facility] the event this information is protected by the Federal Confidentiality of Alcohol and Drug Abuse Patient Records regulations: The Federal rules restrict any use of the information to criminally investigate or prosecute any alcohol or drug abuse patient.[facility] Hospital[facility] the event this information is protected by the Federal Confidentiality of Alcohol and Drug Abuse Patient Records regulations: The Federal rules restrict any use of the information to criminally investigate or prosecute any alcohol or drug abuse patient.[facility] Hospital[facility] the event this information is protected by the Federal Confidentiality of Alcohol and Drug Abuse Patient Records regulations: The Federal rules restrict any use of the information to criminally investigate or prosecute any alcohol or drug abuse patient.[facility] the event this information is protected by the Federal Confidentiality of Alcohol and Drug Abuse Patient Records regulations: The Federal rules restrict any use of the information to criminally investigate or prosecute any alcohol or drug abuse patient.[facility] Hospital[facility] the event this information is protected by the Federal Confidentiality of Alcohol and Drug Abuse Patient Records regulations: The Federal rules restrict any use of the information to criminally investigate or prosecute any alcohol or drug abuse patient.[facility] Hospital[facility] the event this information is protected by the Federal Confidentiality of Alcohol and Drug Abuse Patient Records regulations: The Federal rules restrict any use of the information to criminally investigate or prosecute any alcohol or drug abuse patient.[facility] Hospital[facility] the event this information is protected by the Federal Confidentiality of Alcohol and Drug Abuse Patient Records regulations: The Federal rules restrict any use of the information to criminally investigate or prosecute any alcohol or drug abuse patient.[facility] FOR RECORDS PERTAINING TO PATIENTS WHO ARE [...] BE BASED ON THE PRIMARY CLINICAL RECORDS. [facility] [employer] [facility]. provides no warranty or guarantee of the accuracy or completeness of information in this document.
--- NOTE | 2024-05-24 20:40 | ED_ITS ---
HPI HPI - General Adult General Chief complaint: Recheck/Abnormal Lab/Rx Stated complaint: ALLERGIC REACTION Time Seen by Provider: 05/24/24 20:24 Source: patient Mode of arrival: walk-in Limitations: no limitations History of Present Illness HPI narrative: patient states he was started on Suboxone 11 days ago and since starting it he has uncontrolled tremor of his feet. State he was seen at [facility] for the same and given Ativan which help him sleep but did not help his feet. Denies weakness of his extremities. No other concerns at this visit states he is on Suboxone for neuropathy patient also admits to decrease intake of fluids. States he has only been drinking milk states today he was started on cymbalta by his psychiatrist. Does not know what dose of Cymbalta Related Data Home Medications ?Medication ?Instructions ?Recorded ?Confirmed albuterol sulfate 90 mcg/actuation 1 inh inhalation Q4H PRN shortness 04/17/24 04/17/24 aerosol inhaler (Ventolin HFA) of breath or wheezing amlodipine 10 mg tablet 10 mg PO DAILY 04/17/24 04/17/24 aspirin 81 mg chewable tablet 81 mg PO DAILY 04/17/24 04/17/24 (Trinity Chewable Low Dose Aspirin) atorvastatin 10 mg tablet 10 mg PO DAILY 04/17/24 04/17/24 buspirone 30 mg tablet 30 mg PO .PM 04/17/24 04/17/24 cholecalciferol (vitamin D3) 50 50 mcg PO DAILY 04/17/24 04/17/24 mcg (2,000 unit) capsule (Vitamin D3) fluticasone furoate 100 1 inh inhalation Q24H 04/17/24 04/17/24 mcg-vilanterol 25 mcg/dose inhalation powder (Breo Ellipta) insulin aspart U-100 100 unit/mL 7 unit subcut BID 04/17/24 04/17/24 (3 mL) subcutaneous pen (Novolog FlexPen U-100 Insulin aspart) insulin degludec 100 unit/mL (3 27 unit subcut DAILY 04/17/24 04/17/24 mL) subcutaneous pen (Tresiba FlexTouch U-100 insulin) levomilnacipran 80 mg capsule,24 80 mg PO DAILY 04/17/24 04/17/24 hr,extended release (Fetzima) [id number]-[id number] 1 cap PO TID 04/17/24 04/17/24 36,000-114,000-180,000 unit capsule,delay rel (Creon) lisinopril 10 mg tablet 10 mg PO DAILY 04/17/24 04/17/24 mirtazapine 45 mg tablet 45 mg PO .HS 04/17/24 04/17/24 ondansetron 8 mg disintegrating 8 mg PO DAILY 04/17/24 04/17/24 tablet oxycodone 10 mg tablet 10 mg PO .COMPLEX 04/17/24 04/17/24 pantoprazole 40 mg tablet,delayed 40 mg PO DAILY PRN reflux 04/17/24 04/17/24 release pregabalin 150 mg capsule (Lyrica) 150 mg PO BID 04/17/24 04/17/24 tamsulosin 0.4 mg capsule 0.4 mg PO DAILY 04/17/24 04/17/24 Allergies Allergy/AdvReac Type Severity Reaction Status Date / Time No Known Drug Allergies Allergy Verified 04/17/24 08:21 Opioid HPI Opioid Management Most Recent Opioid Data: No Data to Display Review of Systems ROS Status of ROS 10 or more systems reviewed and unremark able except as noted in history and below [facility] Medical History (Updated 05/24/24 @ 22:19 by Phuc Rodgers MD) Neuropathy ?G62.9 - Polyneuropathy, unspecified (ICD-10) Amputated toe of right foot ?S98.131A - Complete traumatic amputation of one right lesser toe, initial encounter (ICD-10) Hepatitis C ?B19.20 - Unspecified viral hepatitis C without hepatic coma (ICD-10) Pancreatic cancer ?C25.9 - Malignant neoplasm of pancreas, unspecified (ICD-10) Osteoarthritis ?M19.90 - Unspecified osteoarthritis, unspecified site (ICD-10) Anxiety ?F41.9 - Anxiety disorder, unspecified (ICD-10) Depression ?F32.A - Depression, unspecified (ICD-10) Chronic obstructive pulmonary disease ?J44.9 - Chronic obstructive pulmonary disease, unspecified (ICD-10) Seasonal allergies ?J30.2 - Other seasonal allergic rhinitis (ICD-10) Cataract ?H26.9 - Unspecified cataract (ICD-10) Diabetes ?E11.9 - Type 2 diabetes mellitus without complications (ICD-10) Hypertension ?I10 - Essential (primary) hypertension (ICD-10) High cholesterol ?E78.00 - Pure hypercholesterolemia, unspecified (ICD-10) Liver disease ?K76.9 - Liver disease, unspecified (ICD-10) Rectal bleeding ?K62.5 - Hemorrhage of anus and rectum (ICD-10) Epigastric pain ?R10.13 - Epigastric pain (ICD-10) GERD (gastroesophageal reflux disease) ?K21.9 - Gastro-esophageal reflux disease without esophagitis (ICD-10) Chronic kidney disease ?N18.9 - Chronic kidney disease, unspecified (ICD-10) Colitis ?K52.9 - Noninfective gastroenteritis and colitis, unspecified (ICD-10) Surgical History (Updated 04/17/24 @ 09:24 by Cece Bowen) 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 (ICD-10) ?Z90.49 - Acquired absence of other specified parts of digestive tract (ICD-1 0) History of cholecystectomy ?Z90.49 - Acquired absence of other specified parts of digestive tract (ICD- 10) S/P placement of nerve stimulator ?Z96.82 - Presence of neurostimulator (ICD-10) Family History (Updated 04/17/24 @ 08:27 by Cece Bowen) Other Family history of hypertension Family history of lung cancer Family history of pancreatic cancer Social History (Updated 04/17/24 @ 08:23 by Cece Bowen) Within the past year, how often did you have a drink containing alcohol: never Score interpretation: A score less than 4 is consistent with normal alcohol consumption. Smoking status: Former smoker Non-prescribed substance use: cannabis (any form) Non-prescribed substance use details: smokes daily Previous occupational history: retired Highest level of school completed/degree received: 10th grade Little interest or pleasure in doing things: not at all Feeling down, depressed, or hopeless: not at all Exam Constitutional Vital Signs, click to edit/add: Last Vital Signs Temp 98.1 F 05/24/24 20:24 Pulse 95 H 05/24/24 20:24 Resp 18 05/24/24 20:24 BP 168/87 H 05/24/24 21:51 Pulse Ox 98 05/24/24 20:24 O2 Del Method Room Air 05/24/24 20:24 Common normals: no apparent distress, average body habitus, oriented x3, no limitations, healthy appearing, alert and well nourished [facility] Common normals: normocephalic and head/scalp atraumatic Eye Common normals: EOMs intact bilaterally and conjunctivae normal Respiratory Common normals: normal respiratory effort, no retractions, no use of accessory muscles and clear to auscultation bilaterally (diminished breath sounds) Cardio Common normals: regular rate, regular rhythm, S1 normal heart sound and S2 normal heart sound GI Common normals: Normal to inspection, nondistended, normoactive bowel sounds present, soft to palpation and non-tender Extremity Common normals: normal to inspection and full ROM Neuro Common normals: oriented x3, CN's II-XII intact bilaterally, moves all extremities and no focal motor deficits Other: recurrent movement of his feet. Mild and symmetric Psych Appearance: grossly normal Course Vital Signs Vital signs: Vital Signs Temperature 98.1 F 05/24/24 20:24 Pulse Rate 95 H 05/24/24 20:24 Respiratory Rate 18 05/24/24 20:24 Blood Pressure 183/88 H 05/24/24 20:24 Pulse Oximetry 98 05/24/24 20:24 Oxygen Delivery Method Room Air 05/24/24 20:24 Temperature 98.1 F 05/24/24 20:24 Pulse Rate 95 H 05/24/24 20:24 Respiratory Rate 18 05/24/24 20:24 Blood Pressure 168/87 H 05/24/24 21:51 Pulse Oximetry 98 05/24/24 20:24 Oxygen Delivery Method Room Air 05/24/24 20:[address] [facility] Narrative Medical decision making narrative: patient presents due to tremor of his feet. Ongoing for 11 days. He attributes the tremor to a side effect from Suboxone. States it started same day he started Subxone. Was seen at [facility] last week and treated with Ativan. States it help for a short while and allowed him to sleep. No associated weakness of his extremities. Labs reveal he is dehydrated. He admits to decreased intake of fluids and only drinking milk patient hydrated with NS in the department. HTN treated with Hydralazine Given magnesium to see if this would help his tremor some. did not help much his magnesium level is low normal at 1.8. Patient advised he will most likely need to see Neurologist to workup cause of his tremor. Advised to continue Cymbalta for his mental health but also for his neuropathy given a prescription of magnesium to take at home for next 2 weeks. Ativan given for home tonight. Lab Data Labs: Lab Results 05/24/24 Range/Units 20:52 WBC 9.5 (4.0-11.0) 10^3/uL RBC 3.83 L (4.70-6.10) 10^6/uL Hgb 11.7 L (14.0-18.0) g/dL Hct 34.4 L (42.0-54.0) % MCV 89.8 (80.0-94.0) fL MCH 30.5 (25.9-34.0) pg MCHC 34.0 (29.9-35.2) g/dL RDW 13.6 (11.0-15.0) % Plt Count 205 (150-450) 10^3/uL MPV 11.0 (9.5-13.5) fL Neut % (Auto) 59.3 (43.0-75.0) % Lymph % (Auto) 27.8 (20.5-60.0) % [place] % (Auto) 7.6 (1.7-12.0) % Eos % (Auto) 4.2 (0.9-7.0) % Baso % (Auto) 0.8 (0.2-2.0) % Neut # (Auto) 5.7 (1.4-6.5) 10^3/uL Lymph # (Auto) 2.7 (1.2-3.8) 10^3/uL [place] # (Auto) 0.7 (0.3-0.8) 10^3/uL Eos # (Auto) 0.4 (0.0-0.7) 10^3/uL Baso # (Auto) 0.1 (0.0-0.1) 10^3/uL Abs Immat Gran (auto) 0.03 (0.00-0.03) 10^3/uL Imm/Tot Granulo (auto) 0.3 (0.0-0.5) % Sodium 136 (136-145) mmol/L Potassium 4.9 (3.5-5.1) mmol/L Chloride 102 (98-107) mmol/L Carbon Dioxide 26.9 (21.0-32.0) mmol/L Anion Gap 12.0 BUN 57.0 H (7.0-18.0) mg/dL Creatinine 1.52 H (0.70-1.30) mg/dL Est GFR ( Amer) 56 L (>=60 mL/min/1.73m^2) Est GFR (Non-Af Amer) 46 L (>=60 mL/min/1.73m^2) BUN/Creatinine Ratio 37.5 Glucose 194 H (74-106) mg/dL Calcium 9.8 (8.5-10.1) mg/dL Magnesium 1.8 (1.8-2.4) mg/dL Discharge Plan Discharge Chief Complaint: Recheck/Abnormal Lab/Rx Clinical Impression: Tremor, Acute dehydration, Hypertension Patient Disposition: Home, Self-Care Prescriptions / Home Meds: No Action amlodipine 10 mg tablet 10 mg PO DAILY Fetzima 80 mg capsule,extended release 24 hr 80 mg PO DAILY tamsulosin 0.4 mg capsule 0.4 mg PO DAILY atorvastatin 10 mg tablet 10 mg PO DAILY lisinopril 10 mg tablet 10 mg PO DAILY buspirone 30 mg tablet 30 mg PO .PM mirtazapine 45 mg tablet 45 mg PO .HS pregabalin [Lyrica] 150 mg capsule 150 mg PO BID Creon 36,000-114,000- 180,000 unit capsule,delayed release(DR/EC) 1 cap PO TID Rx Instructions: administer with meals and/or snacks albuterol sulfate [Ventolin HFA] 90 mcg/actuation HFA aerosol inhaler 1 inh inhalation Q4H PRN (Reason: shortness of breath or wheezing) fluticasone furoate-vilanterol [Breo Ellipta] 100-25 mcg/dose blister with device 1 inh inhalation Q24H insulin degludec [Tresiba FlexTouch U-100] 100 unit/mL (3 mL) insulin pen 27 unit subcut DAILY insulin aspart U-100 [Novolog FlexPen U-100 Insulin] 100 unit/mL (3 mL) insulin pen 7 unit subcut BID aspirin [Trinity Chewable Aspirin] 81 mg tablet,chewable 81 mg PO DAILY pantoprazole 40 mg tablet,delayed release (DR/EC) 40 mg PO DAILY PRN (Reason: reflux) oxycodone 10 mg tablet 10 mg PO .COMPLEX Rx Instructions: 10 mg orally; 5 x per day ondansetron 8 mg tablet,disintegrating 8 mg PO DAILY cholecalciferol (vitamin D3) [Vitamin D3] 50 mcg (2,000 unit) capsule 50 mcg PO DAILY Print Language: Algerian Instructions: Dehydration (ED), Hypertension (ED), Tremors (ED) Additional Instructions: drink plenty of fluids. Follow up with your doctor next couple of days. Will need blood work recheck for dehydration and kidney function. Referrals: DANIS DOCKERY [Primary Care Provider] - 1 week
[2024-05-24] MEDS: MAGNESIUM SULFATE IN WATER 2 GM/50 ML PREMIX IV (20:57)
[2024-05-24 21:00] LABS: Basophils Absolute Auto 0.1 10^3/uL (0.0-0.1); Basophils Percent Auto 0.8 % (0.2-2.0); Eosinophils Absolute Auto 0.4 10^3/uL (0.0-0.7); Eosinophils Percent Auto 4.2 % (0.9-7.0); Hematocrit 34.4 % (42.0-54.0); Hemoglobin 11.7 g/dL (14.0-18.0); Immature Granulocytes Abs Auto 0.03 10^3/uL (0.00-0.03); Immature Granulocytes Pct Auto 0.3 % (0.0-0.5); Lymphocytes Absolute Auto 2.7 10^3/uL (1.2-3.8); Lymphocytes Percent Auto 27.8 % (20.5-60.0); Mean Corpuscular Hemoglobin 30.5 pg (25.9-34.0); Mean Corpuscular Volume 89.8 fL (80.0-94.0); Monocytes Absolute Auto 0.7 10^3/uL (0.3-0.8); Monocytes Percent Auto 7.6 % (1.7-12.0); Neutrophils Absolute Auto 5.7 10^3/uL (1.4-6.5); Neutrophils Percent Auto 59.3 % (43.0-75.0); Platelet Count 205 10^3/uL (150-450); Red Blood Count 3.83 10^6/uL (4.70-6.10); Red Cell Distribution Width 13.6 % (11.0-15.0); White Blood Count 9.5 10^3/uL (4.0-11.0)
[2024-05-24 21:10] LABS: BUN Creatinine Ratio 37.5; Calcium 9.8 mg/dL (8.5-10.1); Carbon Dioxide 26.9 mmol/L (21.0-32.0); Chloride 102 mmol/L (98-107); Estimated GFR (African America 56 (>=60 mL/min/1.73m^2); Estimated GFR (Non-African Ame 46 (>=60 mL/min/1.73m^2); Glucose 194 mg/dL (74-106); Magnesium 1.8 mg/dL (1.8-2.4); Potassium 4.9 mmol/L (3.5-5.1); Sodium 136 mmol/L (136-145)
[2024-05-24 21:22] VITALS: BP 168/87
[2024-05-24] MEDS: 0.9 % SODIUM CHLORIDE 1,000 ML 999 ML IV (21:49)
[2024-05-24 21:51] VITALS: BP 168/87
[2024-05-24] MEDS: HYDRALAZINE HCL 20 MG/ML VIAL 5 MG IVP (21:51)
[2024-05-24] MEDS: ONDANSETRON PF 4 MG/2 ML VIAL IV (21:51)
[2024-05-24 22:19] VITALS: BP 167/85
[2024-05-24] MEDS: LORAZEPAM 1 MG TABLET PO (22:58)
[2024-05-26 04:07] LABS: Vitamin B12 774 pg/mL (232-1245)
== END 2024-05-24 23:03 | disposition home or self-care (01) ==
PROVIDERS: Emergency Provider Internal Medicine; Family Provider Urology; PCP Family Medicine
DX: R25.1 Tremor, unspecified (principal); I10 Essential (primary) hypertension; E86.0 Dehydration; Z79.891 Long term (current) use of opiate analgesic; Z79.899 Other long term (current) drug therapy; Z90.49 Acquired absence of other specified parts of digestive tract; Z96.82 Presence of neurostimulator; Z87.891 Personal history of nicotine dependence
CPT/HCPCS: 36415; 80048; 82607; 83735; 85025; 96361; 96365; 96375; 99284; J0360; J2405; J3475

== ENCOUNTER 2024-05-26 15:09 | Emergency (ER) | payer OTHER, SELFPAY ==
[2024-05-26 15:15] VITALS: BP 165/96; PULSE 99; TEMP 37.1; O2SAT 97; BMI 24.0
--- NOTE | 2024-05-26 15:53 | ECG_ITS ---
[facility] Test Date: 2024-05-26 Pat Name: ALTAGRACIA CONWAY Department: Room: - Gender: Male Assistant To The President: : 1955 Requested By: [id number] Order Number: [id number] Reading MD: LORY DUMONT M.D. Measurements Intervals [place] Rate: 92 P: 80 ND: 172 QRS: 83 QRSD: 86 T: 74 QT: 338 QTc: 387 Interpretive Statements 1100 Sinus rhythm 9110 normal ECG Compared to ECG 04/17/2024 09:13:32 No significant changes Electronically Signed On 05-26-2024 19:06:45 EDT by LORY DUMONT M.D.
--- NOTE | 2024-05-26 15:58 | PC.NURSE ---
PT HAVING ISSUES WITH INCREASED ANXIETY AND HAS NOT SLEPT IN 4 DAYS. WAS IN ER ON SATURDAY FOR SAME THING AND WAS GIVEN ATIVAN WHILE IN ER. PT SENT HERE BY [facility] FOR THIS. PER MONEY POSITION OFFICER FROM [facility], THEY TRIED ADMITTING PT TO [address] [place] [address] AT [facility] BUT WAS NOT ACCEPTED, SO THEY SENT HIM TO [facility]. THIS RN CALLING [facility] FOR PT TO BE EVALUATED.
[2024-05-26 16:13] LABS: Basophils Absolute Auto 0.1 10^3/uL (0.0-0.1); Basophils Percent Auto 0.8 % (0.2-2.0); Eosinophils Absolute Auto 0.2 10^3/uL (0.0-0.7); Eosinophils Percent Auto 1.8 % (0.9-7.0); Hematocrit 37.7 % (42.0-54.0); Hemoglobin 12.9 g/dL (14.0-18.0); Immature Granulocytes Abs Auto 0.02 10^3/uL (0.00-0.03); Immature Granulocytes Pct Auto 0.2 % (0.0-0.5); Lymphocytes Absolute Auto 2.3 10^3/uL (1.2-3.8); Lymphocytes Percent Auto 23.7 % (20.5-60.0); Mean Corpuscular HGB Conc 34.2 g/dL (29.9-35.2); Mean Corpuscular Volume 87.7 fL (80.0-94.0); Mean Platelet Volume 10.8 fL (9.5-13.5); Monocytes Absolute Auto 0.5 10^3/uL (0.3-0.8); Monocytes Percent Auto 5.5 % (1.7-12.0); Neutrophils Absolute Auto 6.6 10^3/uL (1.4-6.5); Platelet Count 251 10^3/uL (150-450); Red Cell Distribution Width 13.5 % (11.0-15.0); White Blood Count 9.8 10^3/uL (4.0-11.0)
[2024-05-26 16:29] LABS: Alanine Aminotransferase 50 U/L (16-63); Albumin Level 4.2 g/dL (3.4-5.0); Alkaline Phosphatase 135 U/L (46-116); Anion Gap 11.7; Aspartate Amino Transferase 35 U/L (15-37); BUN Creatinine Ratio 28.3; Bilirubin Total 0.3 mg/dL (0.2-1.0); Chloride 101 mmol/L (98-107); Estimated GFR (African America 59 (>=60 mL/min/1.73m^2); Estimated GFR (Non-African Ame 48 (>=60 mL/min/1.73m^2); Globulin 4.1 g/dL; Glucose 205 mg/dL (74-106); Potassium 4.7 mmol/L (3.5-5.1); Sodium 135 mmol/L (136-145); Total Protein 8.3 g/dL (6.4-8.2)
[2024-05-26 16:32] LABS: Ethanol <3 mg/dL
[2024-05-26] MEDS: HYDROXYZINE HCL 25 MG TABLET PO (16:36)
--- NOTE | 2024-05-26 17:13 | ED_ITS ---
HPI - Anxiety General Chief Complaint: Anxiety Stated Complaint: RE CHECK Time Seen by Provider: 05/26/24 15:28 Source: patient Mode of arrival: walk-in Limitations: no limitations History of Present Illness HPI narrative: 68-year-old male is coming to the ER for evaluation of his anxiety, he mentioned that he recently was started on Suboxone and since then he has not been able to sleep well, the patient was emotional and at certain point he mentioned that if he would not be given something to help his symptoms he will just kill himself. Before that the patient did not express any suicidal ideation The patient was here almost 2 days ago where he was provided some Ativan and blood workup that shows some dehydration and he was provided with some fluid Patient mentioned that he had not been sleeping well, and his anxiety is out of control Related Data Home Medications ?Medication ?Instructions ?Recorded ?Confirmed albuterol sulfate 90 mcg/actuation 1 inh inhalation Q4H PRN shortness 04/17/24 04/17/24 aerosol inhaler (Ventolin HFA) of breath or wheezing amlodipine 10 mg tablet 10 mg PO DAILY 04/17/24 04/17/24 aspirin 81 mg chewable tablet 81 mg PO DAILY 04/17/24 04/17/24 (Trinity Chewable Low Dose Aspirin) atorvastatin 10 mg tablet 10 mg PO DAILY 04/17/24 04/17/24 buspirone 30 mg tablet 30 mg PO .PM 04/17/24 04/17/24 cholecalciferol (vitamin D3) 50 50 mcg PO DAILY 04/17/24 04/17/24 mcg (2,000 unit) capsule (Vitamin D3) fluticasone furoate 100 1 inh inhalation Q24H 04/17/24 04/17/24 mcg-vilanterol 25 mcg/dose inhalation powder (Breo Ellipta) insulin aspart U-100 100 unit/mL 7 unit subcut BID 04/17/24 04/17/24 (3 mL) subcutaneous pen (Novolog FlexPen U-100 Insulin aspart) insulin degludec 100 unit/mL (3 27 unit subcut DAILY 04/17/24 04/17/24 mL) subcutaneous pen (Tresiba FlexTouch U-100 insulin) levomilnacipran 80 mg capsule,24 80 mg PO DAILY 04/17/24 04/17/24 hr,extended release (Fetzima) [id number]-[id number]-[id number] 1 cap PO TID 04/17/24 04/17/24 36,000-114,000-180,000 unit capsule,delay rel (Creon) lisinopril 10 mg tablet 10 mg PO DAILY 04/17/24 04/17/24 mirtazapine 45 mg tablet 45 mg PO .HS 04/17/24 04/17/24 ondansetron 8 mg disintegrating 8 mg PO DAILY 04/17/24 04/17/24 tablet oxycodone 10 mg tablet 10 mg PO .COMPLEX 04/17/24 04/17/24 pantoprazole 40 mg tablet,delayed 40 mg PO DAILY PRN reflux 04/17/24 04/17/24 release pregabalin 150 mg capsule (Lyrica) 150 mg PO BID 04/17/24 04/17/24 tamsulosin 0.4 mg capsule 0.4 mg PO DAILY 04/17/24 04/17/24 Previous Rx's ?Medication ?Instructions ?Recorded hydroxyzine HCl 25 mg tablet 25 mg PO Q8H PRN anxiety #14 tabs 05/26/24 Allergies Allergy/AdvReac Type Severity Reaction Status Date / Time No Known Drug Allergies Allergy Verified 05/26/24 15:15 Review of Systems ROS Status of ROS 10 or more systems reviewed and unremark able except as noted in history and below [facility] Medical History (Updated 05/26/24 @ 17:59 by Anastasiya Aguilera MD) Neuropathy ?G62.9 - Polyneuropathy, unspecified (ICD-10) Amputated toe of right foot ?S98.131A - Complete traumatic amputation of one right lesser toe, initial encounter (ICD-10) Hepatitis C ?B19.20 - Unspecified viral hepatitis C without hepatic coma (ICD-10) Pancreatic cancer ?C25.9 - Malignant neoplasm of pancreas, unspecified (ICD-10) Osteoarthritis ?M19.90 - Unspecified osteoarthritis, unspecified site (ICD-10) Anxiety ?F41.9 - Anxiety disorder, unspecified (ICD-10) Depression ?F32.A - Depression, unspecified (ICD-10) Chronic obstructive pulmonary disease ?J44.9 - Chronic obstructive pulmonary disease, unspecified (ICD-10) Seasonal allergies ?J30.2 - Other seasonal allergic rhinitis (ICD-10) Cataract ?H26.9 - Unspecified cataract (ICD-10) Diabetes ?E11.9 - Type 2 diabetes mellitus without complications (ICD-10) Hypertension ?I10 - Essential (primary) hypertension (ICD-10) High cholesterol ?E78.00 - Pure hypercholesterolemia, unspecified (ICD-10) Liver disease ?K76.9 - Liver disease, unspecified (ICD-10) Rectal bleeding ?K62.5 - Hemorrhage of anus and rectum (ICD-10) Epigastric pain ?R10.13 - Epigastric pain (ICD-10) GERD (gastroesophageal reflux disease) ?K21.9 - Gastro-esophageal reflux disease without esophagitis (ICD-10) Chronic kidney disease ?N18.9 - Chronic kidney disease, unspecified (ICD-10) Colitis ?K52.9 - Noninfective gastroenteritis and colitis, unspecified (ICD-10) Surgical History (Updated 04/17/24 @ 09:24 by Cece Bowen) 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 (ICD-10) ?Z90.49 - Acquired absence of other specified parts of digestive tract (ICD- 10) History of cholecystectomy ?Z90.49 - Acquired absence of other specified parts of digestive tract (ICD- 10) S/P placement of nerve stimulator ?Z96.82 - Presence of neurostimulator (ICD-10) Family History (Updated 04/17/24 @ 08:27 by Cece Bowen) Other Family history of hypertension Family history of lung cancer Family history of pancreatic cancer Social History (Updated 04/17/24 @ 08:23 by Cece Bowen) Within the past year, how often did you have a drink containing alcohol: never Score interpretation: A score less than 4 is consistent with normal alcohol consumption. Smoking status: Former smoker Non-prescribed substance use: cannabis (any form) Non-prescribed substance use details: smokes daily Previous occupational history: retired Highest level of school completed/degree received: 10th grade Little interest or pleasure in doing things: not at all Feeling down, depressed, or hopeless: not at all Exam Narrative Exam Narrative: Nurses notes and vital signs reviewed and patient is not hypoxic. General: Well-appearing and in no apparent distress. Skin: Warm, dry, no pallor noted. No rash. Head: Normocephalic, atraumatic. Neck: Supple, non-tender. Cardiovascular: Regular Rate and Rhythm without murmur, gallop or rub. Respiratory: No accessory muscle use or respiratory distress. Lungs are clear to auscultation, no wheezing, rales or rhonchi Chest Wall: no tenderness Back: No midline thoracic or lumbar vertebral tenderness. No CVA tenderness Musculoskeletal: normal ROM, no calf or popliteal tenderness, no lower extremity edema/swelling GI: Abdomen is soft, non-distended. Normal bowel sounds. No masses appreciated. No tenderness to palpation. No rebound, guarding, or rigidity noted. Psychiatric: Cooperative and interactive but emotional and anxious Constitutional Vital Signs, click to edit/add: Last Vital Signs Temp 98.7 F 05/26/24 15:15 Pulse 99 H 05/26/24 15:15 Resp 20 05/26/24 15:15 BP 165/96 H 05/26/24 15:15 Pulse Ox 97 05/26/24 15:15 O2 Del Method Room Air 05/26/24 15:15 Course Vital Signs Vital signs: Vital Signs Temperature 98.7 F 05/26/24 15:15 Pulse Rate 99 H 05/26/24 15:15 Respiratory Rate 20 05/26/24 15:15 Blood Pressure 165/96 H 05/26/24 15:15 Pulse Oximetry 97 05/26/24 15:15 Oxygen Delivery Method Room Air 05/26/24 15:15 Temperature 98.7 F 05/26/24 15:15 Pulse Rate 99 H 05/26/24 15:15 Respiratory Rate 20 05/26/24 15:15 Blood Pressure 165/96 H 05/26/24 15:15 Pulse Oximetry 97 05/26/24 15:15 Oxygen Delivery Method Room Air 05/26/24 15:15 MDM - Anxiety MDM Narrative Medical decision making narrative: The patient to CBC and chemistry showed some acute kidney injury that is mild compared to the last time he was here this shows some improvement EKG showing sinus rhythm with a heart rate of [address] elevation or depression When speak with the patient he apparently has been taking his Suboxone and lower doses and that mostly could be causing him some withdrawal symptoms that could be adding up to his symptoms as well The patient was evaluated by [facility] social science analyst and he will be discharged with hydroxyzine with instruction to follow-up with pain management tomorrow and with his psychiatrist on Saturday Patient understand the plan and he is okay with that The patient is to follow up with primary care physician in next 2-3 days or to return to the emergency department should any of the signs or symptoms worsen or new symptoms develop. The patient agrees with the following Diagnosis and Treatment plan and the patient will be discharged home. Lab Data Labs: Lab Results 05/26/24 Range/Units 16:05 WBC 9.8 (4.0-11.0) 10^3/uL RBC 4.30 L (4.70-6.10) 10^6/uL Hgb 12.9 L (14.0-18.0) g/dL Hct 37.7 L (42.0-54.0) % MCV 87.7 (80.0-94.0) fL MCH 30.0 (25.9-34.0) pg MCHC 34.2 (29.9-35.2) g/dL RDW 13.5 (11.0-15.0) % Plt Count 251 (150-450) 10^3/uL MPV 10.8 (9.5-13.5) fL Neut % (Auto) 68.0 (43.0-75.0) % Lymph % (Auto) 23.7 (20.5-60.0) % [place] % (Auto) 5.5 (1.7-12.0) % Eos % (Auto) 1.8 (0.9-7.0) % Baso % (Auto) 0.8 (0.2-2.0) % Neut # (Auto) 6.6 H (1.4-6.5) 10^3/uL Lymph # (Auto) 2.3 (1.2-3.8) 10^3/uL [place] # (Auto) 0.5 (0.3-0.8) 10^3/uL Eos # (Auto) 0.2 (0.0-0.7) 10^3/uL Baso # (Auto) 0.1 (0.0-0.1) 10^3/uL Abs Immat Gran (auto) 0.02 (0.00-0.03) 10^3/uL Imm/Tot Granulo (auto) 0.2 (0.0-0.5) % Sodium 135 L (136-145) mmol/L Potassium 4.7 (3.5-5.1) mmol/L Chloride 101 (98-107) mmol/L Carbon Dioxide 27.0 (21.0-32.0) mmol/L Anion Gap 11.7 BUN 41.0 H (7.0-18.0) mg/dL Creatinine 1.45 H (0.70-1.30) mg/dL Est GFR ( Amer) 59 L (>=60 mL/min/1.73m^2) Est GFR (Non-Af Amer) 48 L (>=60 mL/min/1.73m^2) BUN/Creatinine Ratio 28.3 Glucose 205 H (74-106) mg/dL Calcium 10.0 (8.5-10.1) mg/dL Total Bilirubin 0.3 (0.2-1.0) mg/dL AST 35 (15-37) U/L ALT 50 (16-63) U/L Alkaline Phosphatase 135 H (46-116) U/L Total Protein 8.3 H (6.4-8.2) g/dL Albumin 4.2 (3.4-5.0) g/dL Globulin 4.1 g/dL Albumin/Globulin Ratio 1.0 Ethanol Quant <3 mg/dL Discharge Plan Discharge Chief Complaint: Anxiety Clinical Impression: Anxiety Patient Disposition: Home, Self-Care Time of Disposition Decision: 17:59 Condition: Good Prescriptions / Home Meds: New hydroxyzine HCl 25 mg tablet 25 mg PO Q8H PRN (Reason: anxiety ) Qty: 14 0RF No Action amlodipine 10 mg tablet 10 mg PO DAILY Fetzima 80 mg capsule,extended release 24 hr 80 mg PO DAILY tamsulosin 0.4 mg capsule 0.4 mg PO DAILY atorvastatin 10 mg tablet 10 mg PO DAILY lisinopril 10 mg tablet 10 mg PO DAILY buspirone 30 mg tablet 30 mg PO .PM mirtazapine 45 mg tablet 45 mg PO .HS pregabalin [Lyrica] 150 mg capsule 150 mg PO BID Creon 36,000-114,000- 180,000 unit capsule,delayed release(DR/EC) 1 cap PO TID Rx Instructions: administer with meals and/or snacks albuterol sulfate [Ventolin HFA] 90 mcg/actuation HFA aerosol inhaler 1 inh inhalation Q4H PRN (Reason: shortness of breath or wheezing) fluticasone furoate-vilanterol [Breo Ellipta] 100-25 mcg/dose blister with device 1 inh inhalation Q24H insulin degludec [Tresiba FlexTouch U-100] 100 unit/mL (3 mL) insulin pen 27 unit subcut DAILY insulin aspart U-100 [Novolog FlexPen U-100 Insulin] 100 unit/mL (3 mL) insulin pen 7 unit subcut BID aspirin [Trinity Chewable Aspirin] 81 mg tablet,chewable 81 mg PO DAILY pantoprazole 40 mg tablet,delayed release (DR/EC) 40 mg PO DAILY PRN (Reason: reflux) oxycodone 10 mg tablet 10 mg PO .COMPLEX Rx Instructions: 10 mg orally; 5 x per day ondansetron 8 mg tablet,disintegrating 8 mg PO DAILY cholecalciferol (vitamin D3) [Vitamin D3] 50 mcg (2,000 unit) capsule 50 mcg PO DAILY Print Language: Gibraltarian Instructions: Anxiety (ED) Referrals: DANIS DOCKERY [Primary Care Provider] - 1 week
== END 2024-05-26 18:07 | disposition home or self-care (01) ==
PROVIDERS: Emergency Provider Emergency Medicine; Family Provider Urology; PCP Family Medicine
DX: F41.9 Anxiety disorder, unspecified (principal); Z79.891 Long term (current) use of opiate analgesic; Z90.49 Acquired absence of other specified parts of digestive tract; Z96.82 Presence of neurostimulator; Z87.891 Personal history of nicotine dependence
CPT/HCPCS: 36415; 80053; 80307; 80320; 85025; 93005; 99284

== ENCOUNTER 2024-06-16 07:54 | Outpatient (OUT) | payer MEDICARE, SELFPAY ==
[2024-06-16 08:24] LABS: Basophils Absolute Auto 0.1 10^3/uL (0.0-0.1); Basophils Percent Auto 0.8 % (0.2-2.0); Eosinophils Absolute Auto 0.3 10^3/uL (0.0-0.7); Eosinophils Percent Auto 3.9 % (0.9-7.0); Hematocrit 35.2 % (42.0-54.0); Hemoglobin 11.8 g/dL (14.0-18.0); Immature Granulocytes Abs Auto 0.02 10^3/uL (0.00-0.03); Immature Granulocytes Pct Auto 0.3 % (0.0-0.5); Lymphocytes Percent Auto 26.2 % (20.5-60.0); Mean Corpuscular HGB Conc 33.5 g/dL (29.9-35.2); Mean Corpuscular Hemoglobin 30.6 pg (25.9-34.0); Mean Corpuscular Volume 91.2 fL (80.0-94.0); Mean Platelet Volume 11.2 fL (9.5-13.5); Monocytes Absolute Auto 0.5 10^3/uL (0.3-0.8); Monocytes Percent Auto 6.7 % (1.7-12.0); Neutrophils Absolute Auto 4.6 10^3/uL (1.4-6.5); Neutrophils Percent Auto 62.1 % (43.0-75.0); Platelet Count 194 10^3/uL (150-450); Red Blood Count 3.86 10^6/uL (4.70-6.10); Red Cell Distribution Width 14.9 % (11.0-15.0); White Blood Count 7.4 10^3/uL (4.0-11.0)
[2024-06-16 09:07] LABS: Anion Gap 12.1; BUN Creatinine Ratio 28.8; Calcium 9.3 mg/dL (8.5-10.1); Carbon Dioxide 27.5 mmol/L (21.0-32.0); Chloride 105 mmol/L (98-107); Estimated GFR (African America >60 (>=60 mL/min/1.73m^2); Estimated GFR (Non-African Ame 51 (>=60 mL/min/1.73m^2); Glucose 164 mg/dL (74-106); Potassium 4.6 mmol/L (3.5-5.1); Sodium 140 mmol/L (136-145)
[2024-06-16 09:12] LABS: INR 1.02; Prothrombin Time 10.8 sec (9.0-11.6)
== END 2024-06-16 07:55 | disposition home or self-care (01) ==
PROVIDERS: Family Provider Urology; PCP Family Medicine; Visit Provider Urology
DX: Z01.812 Encounter for preprocedural laboratory examination (principal); N40.1 Benign prostatic hyperplasia with lower urinary tract symptoms
CPT/HCPCS: 80048; 85025; 85610; 85730

== ENCOUNTER 2024-06-30 11:15 | Day surgery (SDC) | payer MEDICARE, OTHER, SELFPAY ==
[2024-04-17 08:25] VITALS: BP 169/71; PULSE 75; TEMP 36.3; O2SAT 98; BMI 25.7
[2024-06-16 08:45] VITALS: BP 144/72; PULSE 67; TEMP 36.3; O2SAT 97; BMI 23.9
[2024-06-30] VITALS (16 sets, daily range): BP systolic 109–156; BP diastolic 59–83; PULSE 54–88; TEMP 36.2–36.6; O2SAT 91–97; BMI 24.5
[2024-06-30] MEDS: LACTATED RINGER'S SOLUTION 1,000 ML 50 ML IV (11:59)
[2024-06-30] MEDS: LEVOFLOXACIN 500 MG/100 ML-D5W PREMIX 100 MG IV (12:04)
--- NOTE | 2024-06-30 13:13 | P.URON_ITS ---
Urology Surgery Operative Note Operative Note Procedure Date: 06/30/24 Time Out Performed: yes Pre-op Diagnosis: BPH with LUTS refractory to medications Post-op Diagnosis: same as pre-op Procedures performed: 1. Cystoscopy. 2. Transurethral resection of the prostate. Anesthesia: GETA Primary Surgeon: Giovani Syed Complications: None Estimated blood loss (mL): 10 Findings: Severe bladder damage and trilobar obstruction of the prostate Specimens: Prostate chips Drains: 22 Hungarian three-way coud? Gordon catheter in the bladder taped to traction and CBI Indications for Procedures: This gentleman has rather significant bladder outlet obstructive symptoms despite oral medications such as Flomax. He has severe bladder damage and a high median lobe and obstructing lateral lobes. He is strongly desirous for TURP. He has signed an informed consent after risks were explained. Some of these risks include bleeding, infection, anesthesia, retrograde ejaculation, urinary incontinence both temporary and permanent, erectile dysfunction, possible need for further operations to name a few. Detailed description of Procedure: The patient was brought to the operating room and placed on the operating room table in the supine position. SCDs were placed on the lower extremities and turned on and functioning during the entire case. Timeout was done by all parties in the room. We all agreed upon the patient's identification and the planned procedures for this patient. Genn. anesthesia was then administered. The patient was then repositioned into the modified dorsal lithotomy position. All pressure points were satisfactorily padded. Genitalia were sterilely prepped and draped in usual fashion. I started by passing a 26 Hungarian Olympus resectoscope with a standard bipolar loop electrode per urethra and into the bladder. The ureteral orifices were marked with the loop electrode. I then uniformly resected the median lobe down to the bladder neck level. I then resected posteriorly from the bladder neck to the Veru level. The left lateral lobe was taken down similarly as well as the right lateral lobe and the anterior tissue. The apex was then opened up carefully. The resection bed was coagulated. The Ilich evacuator was used to get all the chips out of the bladder and these were sent for permanent sections. Upon completion, with the scope at the apex, the prostatic urethra and bladder neck were now wide open. There was no bleeding. There were no chips remaining in the bladder. The scope was then removed. I then passed a 22 Hungarian three-way coud? Gordon in the bladder. It was manually irrigated with a Wilson syringe to verify correct placement. 30 cc of fluid was placed in the balloon. It was taped to traction and CBI was started. It irrigated to a clear color. The anesthetic was then reversed. [facility] and wheeled to PACU in stable condition. Urinary Catheter Management Urinary Catheter Management 3-way Urethral: Cath placed during this visit: no
[2024-06-30] MEDS: SOLIFENACIN SUCCINATE 10 MG TABLET PO (13:28)
[2024-06-30] MEDS: SODIUM CHLORIDE IRRIG SOLUTION 3,000 ML 3000 ML IRR ×14 (14:15→23:48)
[2024-06-30] MEDS: 0.9 % SODIUM CHLORIDE 1,000 ML 80 ML IV (14:25)
[2024-06-30] MEDS: LORAZEPAM 1 MG TABLET PO ×2 (16:30→23:48)
[2024-06-30] MEDS: BACLOFEN 10 MG TABLET PO ×2 (16:30→22:00)
[2024-06-30] MEDS: INSULIN ASPART 300 UNIT/3 ML PEN 7 UNIT SUBQ (17:31)
--- NOTE | 2024-06-30 17:47 | P.PN_ITS ---
Progress Note: Subjective Subjective Interval history: Patient without specific complaint, asked to do Co. medical management Does have a history of diabetes and hypertension, hepatitis C with elevated liver function test, chronic kidney disease stage III Exam Constitutional Vital Signs, click to edit/add: Last Vital Signs Temp 97.8 F 06/30/24 16:32 Pulse 63 06/30/24 16:32 Resp 16 06/30/24 16:32 BP 156/80 H 06/30/24 16:32 Pulse Ox 97 06/30/24 16:32 O2 Del Method Room Air 06/30/24 16:32 O2 Flow Rate 2 06/30/24 14:30 Documenting provider has reviewed patient's vital signs: yes Common normals: no apparent distress Chest Common normals: inspection of chest normal Respiratory Common normals: normal respiratory effort and no retractions Cardio Common normals: regular rate and regular rhythm GI Common normals: Normal to inspection, nondistended, normoactive bowel sounds present, soft to palpation and non-tender Extremity Common normals: normal to inspection Progress Note: A&P Assessment and Plan (1) Hypertension: (2) Anxiety: (3) Tremor: (4) Chronic pain: (5) History of pancreatic cancer: (6) Benign prostatic hyperplasia with urinary obstruction and other lower urinary tract symptoms: (7) CHF (congestive heart failure): (8) Chronic hepatitis C without hepatic coma: (9) Pulmonary hypertension: (10) Obstructive sleep apnea: (11) Anemia: (12) Diabetes: (13) Hypertension: (14) GERD (gastroesophageal reflux disease): Plan Admission findings: Patient made a status post trip, only significant finding at this point as he did have some mild postoperative hypoxia but improved at the present time Prostate surgery-plan per Dr. Syed Hypertension-continue with home medications, as needed hydralazine Generalized anxiety disorder continue with home medications Chronic kidney disease stage III-repeat labs in a.m. Chronic combined congestive heart failure-no peripheral edema lungs are clear COPD-continue with home medications Diabetes mellitus-insulin sliding scale plus home medications Peripheral neuropathy-continue with home medications Urinary Catheter Management Urinary Catheter Management 3-way Urethral: Cath placed during this visit: no
[2024-06-30] MEDS: HYDROCODONE/ACET 5-325 MG TABLET 1 TAB PO (20:44)
[2024-06-30] MEDS: BUSPIRONE HCL 15 MG TABLET PO (20:44)
[2024-06-30] MEDS: PREGABALIN 75 MG CAPSULE 150 MG PO (20:44)
[2024-06-30] MEDS: TEMAZEPAM 15 MG CAPSULE PO (22:00)
[2024-06-30] MEDS: INSULIN ASPART 300 UNIT/3 ML PEN SUBQ (22:01)
[2024-07-01] MEDS: SODIUM CHLORIDE IRRIG SOLUTION 3,000 ML 3000 ML IRR ×9 (00:36→08:13)
[2024-07-01] MEDS: HYDROCODONE/ACET 5-325 MG TABLET 1 TAB PO ×2 (01:09→06:24)
[2024-07-01] MEDS: 0.9 % SODIUM CHLORIDE 1,000 ML 80 ML IV (01:40)
[2024-07-01 05:06] VITALS: BP 135/74; PULSE 74; TEMP 36.3; O2SAT 93
[2024-07-01 05:41] VITALS: O2SAT 92
[2024-07-01 06:01] LABS: Basophils Percent Auto 0.2 % (0.2-2.0); Eosinophils Percent Auto 0.3 % (0.9-7.0); Hematocrit 29.6 % (42.0-54.0); Immature Granulocytes Abs Auto 0.04 10^3/uL (0.00-0.03); Immature Granulocytes Pct Auto 0.3 % (0.0-0.5); Lymphocytes Absolute Auto 2.1 10^3/uL (1.2-3.8); Mean Corpuscular HGB Conc 33.8 g/dL (29.9-35.2); Mean Corpuscular Hemoglobin 30.8 pg (25.9-34.0); Mean Corpuscular Volume 91.1 fL (80.0-94.0); Mean Platelet Volume 11.9 fL (9.5-13.5); Monocytes Absolute Auto 0.8 10^3/uL (0.3-0.8); Monocytes Percent Auto 6.1 % (1.7-12.0); Neutrophils Absolute Auto 10.1 10^3/uL (1.4-6.5); Neutrophils Percent Auto 77.1 % (43.0-75.0); Platelet Count 171 10^3/uL (150-450); Red Blood Count 3.25 10^6/uL (4.70-6.10); Red Cell Distribution Width 14.4 % (11.0-15.0)
--- NOTE | 2024-07-01 06:04 | PC.NURSE ---
Attempted to reach out to urology d/t CBI urine vera red. Medical Record Transcriber advised no urology donor relations manager and unable to reach provider, Dr Munoz notified instead
[2024-07-01] MEDS: BACLOFEN 10 MG TABLET PO (06:24)
[2024-07-01 06:37] LABS: Alanine Aminotransferase 59 U/L (16-63); Albumin Globulin Ratio 0.9; Albumin Level 2.9 g/dL (3.4-5.0); Alkaline Phosphatase 203 U/L (46-116); Anion Gap 15.5; Aspartate Amino Transferase 37 U/L (15-37); BUN Creatinine Ratio 26.1; Bilirubin Total 0.3 mg/dL (0.2-1.0); Calcium 8.8 mg/dL (8.5-10.1); Carbon Dioxide 22.5 mmol/L (21.0-32.0); Chloride 104 mmol/L (98-107); Estimated GFR (African America >60 (>=60 mL/min/1.73m^2); Estimated GFR (Non-African Ame 50 (>=60 mL/min/1.73m^2); Globulin 3.2 g/dL; Glucose 272 mg/dL (74-106); Sodium 137 mmol/L (136-145); Total Protein 6.1 g/dL (6.4-8.2)
[2024-07-01 07:34] VITALS: BP 144/69; PULSE 72; TEMP 36.5; O2SAT 93
--- NOTE | 2024-07-01 07:38 | P.PN_ITS ---
Progress Note: Subjective Subjective Interval history: Only complaint morning is that his neuropathy is altered up, likely related to his diabetes likely related to not following his diet last night Exam Constitutional Vital Signs, click to edit/add: Last Vital Signs Temp 97.7 F 07/01/24 07:34 Pulse 72 07/01/24 07:34 Resp 14 07/01/24 07:34 BP 144/69 H 07/01/24 07:34 Pulse Ox 93 L 07/01/24 07:34 O2 Del Method Room Air 07/01/24 07:34 O2 Flow Rate 2 06/30/24 14:30 Documenting provider has reviewed patient's vital signs: yes Common normals: apparent distress (Painful distress secondary to chronic neuropathy) Lymph Lymphatic: no lymphadenopathy noted Chest Common normals: inspection of chest normal Respiratory Common normals: normal respiratory effort (No respiratory distress) GI Common normals: Normal to inspection, nondistended, normoactive bowel sounds present Progress Note: Objective Labs Labs: Short CBC 07/01/24 Range/Units 05:50 WBC 13.0 H (4.0-11.0) 10^3/uL Hgb 10.0 L (14.0-18.0) g/dL Hct 29.6 L (42.0-54.0) % Plt Count 171 (150-450) 10^3/uL BMP 07/01/24 05:50 Sodium 137 Potassium 5.0 Chloride 104 Carbon Dioxide 22.5 BUN 37.0 H Creatinine 1.42 H Glucose 272 H Calcium 8.8 Liver Function 07/01/24 Range/Units 05:50 Total Bilirubin 0.3 (0.2-1.0) mg/dL AST 37 (15-37) U/L ALT 59 (16-63) U/L Alkaline Phosphatase 203 H (46-116) U/L Albumin 2.9 L (3.4-5.0) g/dL Progress Note: A&P Assessment and Plan (1) Hypertension: (2) Anxiety: (3) Tremor: (4) Chronic pain: (5) History of pancreatic cancer: (6) Benign prostatic hyperplasia with urinary obstruction and other lower urinary tract symptoms: (7) CHF (congestive heart failure): (8) Chronic hepatitis C without hepatic coma: (9) Pulmonary hypertension: (10) Obstructive sleep apnea: (11) Anemia: (12) Diabetes: (13) GERD (gastroesophageal reflux disease): (14) Hypertension: Plan Admission findings: Patient made a status post trip, only significant finding at this point as he did have some mild postoperative hypoxia but improved at the present time Prostate surgery-plan per Dr. Syed Hypertension-continue with home medications, as needed hydralazine Generalized anxiety disorder continue with home medications Chronic kidney disease stage III-stable creatinine from his baseline Leukocytosis-this is likely related to surgery, no signs of infection, no respiratory distress no cough no fever Chronic combined congestive heart failure-no peripheral edema lungs are clear COPD-continue with home medications Diabetes mellitus-insulin sliding scale plus home medications not following diet last night Peripheral neuropathy-continue with home medications Anemia of chronic kidney disease-down slightly today, not far off from baseline Elevated liver function test secondary to history of chronic hepatitis C, not far from baseline Medically stable Urinary Catheter Management Urinary Catheter Management 3-way Urethral: Cath placed during this visit: no
--- NOTE | 2024-07-01 07:40 | CM.NOTE ---
Rounds made with Dr. Munoz. Dr. Munoz discussed plan of care. Potential discharge later today.
[2024-07-01 07:45] VITALS: PULSE 72
[2024-07-01 08:00] VITALS: O2SAT 93
[2024-07-01] MEDS: LORAZEPAM 1 MG TABLET PO (08:33)
[2024-07-01] MEDS: SOLIFENACIN SUCCINATE 10 MG TABLET PO (08:34)
[2024-07-01] MEDS: LISINOPRIL 10 MG TABLET PO (08:35)
[2024-07-01] MEDS: TAMSULOSIN HCL 0.4 MG CAPSULE PO (08:35)
[2024-07-01] MEDS: CHOLECALCIFEROL (VITAMIN D3) 25 MCG/1,000 UNITS TABLET 50 MCG PO (08:35)
[2024-07-01] MEDS: PREGABALIN 75 MG CAPSULE 150 MG PO (08:35)
[2024-07-01] MEDS: AMLODIPINE BESYLATE 5 MG TABLET 10 MG PO (08:35)
[2024-07-01] MEDS: FUROSEMIDE 20 MG TABLET PO (08:36)
[2024-07-01] MEDS: BUSPIRONE HCL 15 MG TABLET PO (08:36)
[2024-07-01] MEDS: INSULIN ASPART 300 UNIT/3 ML PEN 7 UNIT SUBQ (08:36)
[2024-07-01] MEDS: INSULIN GLARGINE 300 UNIT/3 ML INSULN.PEN 27 UNIT SQ (08:38)
[2024-07-01] MEDS: HYDROMORPHONE HCL 1 MG/ML CARTRIDGE IV (08:42)
== END 2024-07-01 10:33 | disposition home or self-care (01) ==
LOC: SURGOUT 11:16 → MS 13:40
PROVIDERS: Family Medicine; Family Provider Urology; PCP Family Medicine; Visit Provider Urology
PROC: (CPT 52601; principal; 2024-06-30 12:00)
DX: N40.1 Benign prostatic hyperplasia with lower urinary tract symptoms (principal); E78.5 Hyperlipidemia, unspecified; Z85.07 Personal history of malignant neoplasm of pancreas; Z79.01 Long term (current) use of anticoagulants; R25.1 Tremor, unspecified; G89.29 Other chronic pain; N13.8 Other obstructive and reflux uropathy; B18.2 Chronic viral hepatitis C; I27.20 Pulmonary hypertension, unspecified; K21.9 Gastro-esophageal reflux disease without esophagitis; R09.02 Hypoxemia; F41.1 Generalized anxiety disorder; N18.30 Chronic kidney disease, stage 3 unspecified; I13.0 Hypertensive heart and chronic kidney disease with heart failure and stage 1 through stage 4 chronic kidney disease, or unspecified chronic kidney disease; E11.22 Type 2 diabetes mellitus with diabetic chronic kidney disease; D72.829 Elevated white blood cell count, unspecified; I50.42 Chronic combined systolic (congestive) and diastolic (congestive) heart failure; E11.42 Type 2 diabetes mellitus with diabetic polyneuropathy; D63.1 Anemia in chronic kidney disease; R79.89 Other specified abnormal findings of blood chemistry; Z79.4 Long term (current) use of insulin; Z79.899 Other long term (current) drug therapy; Z90.49 Acquired absence of other specified parts of digestive tract; F17.210 Nicotine dependence, cigarettes, uncomplicated
CPT/HCPCS: 52601; 36415; 80053; 80307; 82948; 85025; 88305; 94761; 96374; J1100; J1171; J1885; J2250; J2405; J2704; J3010